=== PATIENT | female | born 1935 | race Caucasian/White ===

== ENCOUNTER 2016-07-19 07:29 | Inpatient (IN) | payer OTHER ==
[2016-07-04 14:03] VITALS: BMI 29.0
--- NOTE | 2016-07-04 14:35 | PAT Medication Instructions ---
Service Date Jul 04, 2016. Current Home Medication List Aspirin Enteric Coated (Ecotrin Or Generic *), 81 MG PO QAM Cholecalciferol (Vitamin D3), 1 CAP PO QAM Fluticasone Propionate (Nasal) (Flonase Allergy Relief), 1 SPRAY NA QAM Lisinopril (Zestril), 10 MG PO QAM Lorazepam (Ativan), 0.5 MG PO HS PRN for Pain Omeprazole (Omeprazole), 1 TAB PO QAM Medication Instructions For Your Scheduled Surgery - Hold the following medications the morning of surgery: Cholecalciferol (Vitamin D3), 1 CAP PO QAM Lisinopril (Zestril), 10 MG PO QAM - Take the following medications the morning of surgery with a sip of water OTHERWISE NOTHING TO EAT OR DRINK AFTER MIDNIGHT: Omeprazole (Omeprazole), 1 TAB PO QAM Aspirin Enteric Coated (Ecotrin Or Generic *), 81 MG PO QAM Fluticasone Propionate (Nasal) (Flonase Allergy Relief), 1 SPRAY NA QAM - Take the following medications as scheduled the night before surgery: Lorazepam (Ativan), 0.5 MG PO HS PRN for Pain If you have any questions please call us at [phone] or [phone] or [phone]
[2016-07-04 15:18] LABS: BASO % 0.5 %; BASO ABS # 0.03 K/uL (0-0.2); COMPLETE YES; EOS % 6.2 %; HEMATOCRIT 42.8 % (37-47); IG% 0.3 %; LYMPH % 33.9 %; LYMPH ABS # 2.23 K/uL (1.2-3.4); MEAN CELL VOLUME 87.2 fL (80-100); MEAN CORPUSCULAR HEMOGLOBIN 29.7 pg (25-34); MEAN CORPUSCULAR HGB CONC 34.1 g/dl (32-36); MONO % 5.8 %; NEUT % 53.3 %; PLATELET COUNT 209 K/uL (130-400); RED BLOOD COUNT 4.91 M/uL (4.2-5.4); WHITE BLOOD COUNT 6.58 K/uL (4.8-10.8)
[2016-07-04 15:19] LABS: URINE APPEARANCE CLEAR (CLEAR); URINE BILIRUBIN NEG (NEG); URINE COLOR YELLOW; URINE NITRITE NEG (NEG); URINE PH 5.5 (4.5-7.5); URINE SPECIFIC GRAVITY 1.022 (1.000-1.030); UROBILINOGEN NEG (NEG)
--- NOTE | 2016-07-04 15:22 | DIAGNOSTIC IMAGING REPORT ---
CHEST PREADMISSION(PA/LAT) CLINICAL HISTORY: PAT preoperative evaluation COMPARISON STUDY: 01/31/2010 FINDINGS: The bones soft tissues and hemidiaphragms are normal. The cardiomediastinal silhouette is normal. The lungs are clear. The pulmonary vasculature is normal. IMPRESSION: Negative chest. Electronically signed by: Lam Albrecht M.D. 07/04/2016 3:20 PM Dictated Date/Time: 07/04/2016 3:20 PM
[2016-07-04 15:27] LABS: MANUAL MICROSCOPIC REQUIRED? NO; REVIEW REQ? NO
[2016-07-04 15:34] LABS: BUN/CREATININE RATIO 18.3 (10-20); CALCIUM 9.1 mg/dl (8.5-10.1); POTASSIUM 3.8 mmol/L (3.5-5.1)
--- NOTE | 2016-07-17 09:59 | HISTORY & PHYSICAL EXAMINATION ---
DATE OF ADMISSION: 07/19/2016 The patient is well known to our practice. She has undergone prior lumbar decompression with instrumented fusion by Dr. Potts in the past. She presents to our office stating she is having leg pain, left greater than right. She reports this is quite limiting. She has failed physical therapy without any long-lasting relief. Denies bowel or bladder dysfunction. She states she is ambulating independently, but is "wobbly when she walks." The right leg for the most part is asymptomatic. She has a significant numbness down her left leg. She is struggling with shopping. She must lean on the cart or take a seated position to obtain relief. She is taking Tylenol extra strength for pain control. MEDICAL HISTORY: The patient's medical history is significant for GERD and hypertension. SURGICAL HISTORY: Significant for cholecystectomy, hysterectomy, prior lumbar fusion L5-S1 by Dr. Potts 2004, as well as neck surgery 2005. ALLERGIES: None listed. MEDICATIONS: Include Neurontin 300 mg b.i.d., melatonin 5 mg 2 capsules at night, Ativan 1 mg t.i.d. p.r.n., levothyroxine 112 mcg daily, K-Tab 10 mEq daily, benztropine mesylate 0.5 mg b.i.d., chlorpromazine hydrochloride 25 mg at night, pantoprazole 40 mg a day, fluoxetine hydrochloride 20 mg 2 tabs a day, loratadine 10 mg a day p.r.n., gabapentin 600 mg t.i.d., Tylenol p.r.n., ciprofloxacin 250 mg 1 p.o. b.i.d., hydrochloride 100 mg a day, Flexeril 10 mg p.r.n., Carafate 1 gram t.i.d. SOCIAL HISTORY: She is retired. Tobacco is none. She is . Alcohol is none currently. FAMILY HISTORY: Noncontributory. REVIEW OF SYSTEMS: Significant for back and leg pain, difficulty walking. PHYSICAL EXAMINATION: HEENT: Speech appropriate. CARDIOPULMONARY: No gross abnormalities. ABDOMEN: Soft, nondistended. GENITOURINARY: Deferred. NEUROLOGIC: Cranial nerves II-XII grossly intact. MUSCULOSKELETAL: She ambulates with a slow but steady gait. Lumbar extension reproduces her pain. Strength is intact bilateral lower extremities. Negative clonus. Negative Babinski. ASSESSMENT: Neural foraminal stenosis, multilevel of the lumbar spine. PLAN: At this point in time, we have discussed surgical intervention, which would require removal of instrumentation of L5-S1, lumbar decompression with instrumented fusion L2-L3, L3-L4 and L4-L5, possible reinstrumentation of L5-S1. Will have her see her family physician, Dr. Ring, preoperatively. She would like to proceed with the above-mentioned surgical planning. OFELIA
[2016-07-19] VITALS (13 sets, daily range): BP systolic 94–159; BP diastolic 55–85; PULSE 50–70; TEMP 34.7–36.7; O2SAT 95–98; Ht 162.6 cm; Wt 76.4 kg
[~2016-07-19] VITALS: Ht 162.6 cm; Wt 76.4 kg
--- NOTE | 2016-07-19 07:28 | History & Physical Bridge Note ---
H&P Re-Evaluation Bridge Note: I have examined the patient, reviewed the History & Physical and in the interval since the performance of the History & Physical I have noted the following changes of clinical significance: No changes noted
[~2016-07-19 07:29] MED LIST: ALBUMIN HUMAN 5% 12.5 GM/250 ML VIAL IV ONE; ASPEC81 PO; CEFAZOLIN 1000MG/55 ML D5W IV SCH; CHOL2000 PO; FLUT0.15; LACTATED RINGER'S 1000ML 1,000 ML IV SCH; LISI-461 PO; LORA-741 PO; OMEP20TA PO; [UNRECOGNIZED DRUG - REMARK] SCH
[2016-07-19] MEDS ORDERED: CEFAZOLIN IV 2,000 MG/60 ML D5W IV ONE (07:40)
[2016-07-19] MEDS ORDERED: ROCURONIUM BROMIDE 10 MG/ML 5 ML VIAL ONE ×2 (09:50→12:19)
[2016-07-19] MEDS ORDERED: DEXAMETHASONE SOD INJ 4 MG/ML VIAL ONE (09:50)
[2016-07-19] MEDS ORDERED: FENTANYL CITRATE INJ 50 MCG/1 ML 2 ML VIAL ONE ×2 (09:50→12:49)
[2016-07-19] MEDS ORDERED: PROPOFOL IV EMULSION 10 MG/ML 20 ML VIAL IV ONE (09:50)
[2016-07-19] MEDS ORDERED: LIDOCAINE HCL 2% 2 ML VIAL (20MG/ML) ONE (09:50)
[2016-07-19] MEDS ORDERED: ONDANSETRON INJ 2 MG/ML 2 ML VIAL ONE ×2 (09:50→12:57)
[2016-07-19] MEDS ORDERED: CLINDAMYCIN 600 MG/54 ML D5W IV ONE (09:53)
[2016-07-19] MEDS ORDERED: BACITRACIN 50000 UNIT VIAL ONE (09:56)
[2016-07-19] MEDS ORDERED: BUPIVACAINE/EPINEPHRINE 0.5% MPF 1:200,000 30 ML VIAL ONE (09:56)
[2016-07-19] MEDS ORDERED: SODIUM CHLORIDE 0.9% PF 50 ML VIAL ONE (09:56)
[2016-07-19] MEDS ORDERED: NURSING VERBAL MED ORDER ONE (10:00)
[2016-07-19] MEDS ORDERED: EpHEDrine SULFATE INJ 50 MG/ML AMP IV PRN (10:15)
[2016-07-19] MEDS ORDERED: HYDROmorphone INJ 2 MG/ML SYR/VIAL IV PRN (10:15)
[2016-07-19] MEDS ORDERED: PHENYLEPHRINE 100MCG/ML 5ML SYR IV PRN (10:15)
[2016-07-19] MEDS ORDERED: ATROPINE SULFATE 0.1 MG/ML 5ML SYR IV PRN (10:15)
[2016-07-19] MEDS ORDERED: ONDANSETRON INJ 2 MG/ML 2 ML VIAL IV PRN ×2 (10:15→13:00)
[2016-07-19] MEDS ORDERED: EpHEDrine SULFATE 50MG/5ML SYR ONE (11:35)
[2016-07-19] MEDS ORDERED: PHENYLEPHRINE HCL INJ 10 MG/ML VIAL ONE (11:35)
[2016-07-19] MEDS ORDERED: KETAMINE HCL INJ 50 MG/ML 10 ML VIAL ONE (11:35)
[2016-07-19] MEDS ORDERED: SODIUM CHLORIDE 0.9% INJ 10 ML VIAL ONE (12:29)
[2016-07-19] MEDS ORDERED: FLOSEAL HEMOSTATIC MATRIX 10ML TOP ONE (12:41)
[2016-07-19] MEDS ORDERED: SODIUM CHLORIDE 0.9% 1000ML 1,000 ML IV SCH (12:50)
--- NOTE | 2016-07-19 12:50 | [facility] Post Operative Brief Note ---
Immediate Operative Summary Operative Date Jul 19, 2016. Pre-Operative Diagnosis Neural foraminal stenosis, multi-level lumbar spine Post-Operative Diagnosis Same as preoperative diagnosis Procedure(s) Performed L2-L5 Lumbar Decompression, Posterior Spinal Fusion, Instrumentation, Interbody fusion with application of interbody cage at L2-L3, L3-L4, L5-S1 Hardware Removal, Bone Morphogenetic Protein Surgeon Dr Potts Direct Support Specialist Surgeon(s) Tameka Pruitt PA-C Estimated Blood Loss 400ml Findings stenosis Specimens A: L5-S1 Explanted hardware, lumbar spine
[2016-07-19] MEDS ORDERED: LORAZEPAM INJ 0.5 MG in SYRINGE 0.75 ML IV PRN (13:00)
[2016-07-19] MEDS ORDERED: MAGNESIUM HYDROXIDE SUSP 30 ML UDC PO PRN (13:00)
[2016-07-19] MEDS ORDERED: ACETAMINOPHEN IV 100 ML IV PRN (13:00)
[2016-07-19] MEDS ORDERED: METOCLOPRAMIDE HCL INJ 5 MG/ML 2 ML VIAL IV PRN (13:00)
[2016-07-19] MEDS ORDERED: FAMOTIDINE 20 MG TAB PO PRN (13:00)
[2016-07-19] MEDS ORDERED: hydrOXYzine HCL 25 MG TAB PO PRN (13:00)
[2016-07-19] MEDS ORDERED: BISACODYL 10 MG SUPP PR PRN (13:00)
[2016-07-19] MEDS ORDERED: NALOXONE HCL 0.4 MG/1 ML VIAL/CARP IV PRN ×2 (13:00)
[2016-07-19] MEDS ORDERED: PROMETHAZINE HCL INJ 12.5 MG in SODIUM CHLORIDE 0.9% 50ML 50 ML IV PRN (13:00)
[2016-07-19] MEDS ORDERED: DO NOT ADMINISTER FLU VACCINE PRN ×3 (13:00)
[2016-07-19] MEDS ORDERED: SOD PHOSPHATE/SOD BIPHOSPHATE ENEMA 132 ML BTL PR PRN (13:00)
[2016-07-19] MEDS ORDERED: LORAZEPAM 0.5 MG TAB PO PRN (13:00)
[2016-07-19] MEDS ORDERED: DO NOT ADMINISTER PNEUMOCOCCAL VACCINE PRN ×2 (13:00)
[2016-07-19] MEDS ORDERED: ALUMINUM/MAGNESIUM SUSP 30 ML UDC PO PRN (13:00)
--- NOTE | 2016-07-19 13:03 | DIAGNOSTIC IMAGING REPORT ---
INTRAOPERATIVE FLUOROSCOPIC IMAGES OF THE LUMBAR SPINE CLINICAL HISTORY: Hardware removal. L2-L5 decompression and fusion. COMPARISON STUDY: Lumbar spine fluoroscopic images February 01, 2010. Fluoroscopy time: 25 seconds. FINDINGS: 3 fluoroscopic images were obtained. Exact localization is difficult on this examination. 2 level discectomy is noted, likely at the L2-L3 and L3-L4 levels. There is a multilevel bilateral pedicle screw fusion with bilateral pedicle screws, likely at the L1, L2, L3, L4 and S1 levels. There are interconnecting rods. Hardware is intact. IMPRESSION: Postoperative findings consistent with a multilevel discectomy and bilateral pedicle screw fusion, as described above. Electronically signed by: West King M.D. 07/19/2016 1:02 PM Dictated Date/Time: 07/19/2016 12:59 PM
[2016-07-19] MEDS ORDERED: HYDROmorphone HCL 0.5MG/ML 50 ML CASSETTE ONE (13:13)
--- NOTE | 2016-07-19 13:27 | OPERATIVE REPORT ---
DATE OF OPERATION: 07/19/2016 PREOPERATIVE DIAGNOSIS: Spinal stenosis. POSTOPERATIVE DIAGNOSIS: Same. PROCEDURES PERFORMED: 1. Removal of posterior instrumentation, L5-S1. 2. Exploration of fusion, L5-S1. 3. Lumbar decompression, medial facetectomies, and foraminotomies, L1-L2, L2-L3, L3-L4, and L4-L5. 4. Posterior spinal fusion, L1-L5. 5. Placement of posterior segmental instrumentation using Orthros rods and screws as well as a crosslink L1-S1. 6. Interbody fusion, L2-L3 and L3-L4. 7. Placement of PEEK cage 11 x 22 at L2-L3 and L3-L4. 8. Placement of locally harvested morcellized autograft in the posterior gutters. 9. Placement of Infuse collagen sponge combined with Mastergraft in the posterior gutters and Raya bone graft in the interbody space. SURGEON: Dr. Samson Potts. GUN PROFILER: Tameka Pruitt PA-C. Due to the complex nature of the procedure, the entire surgery was performed with the health center assistant of SAHIL King. The retirement assistant, under direct supervision, was involved in the actual performance of all aspects of the surgical procedure including hemostasis, tissue retraction and incision, instrument management, patient positioning, and wound closure. ANESTHESIA: General. DISPOSITION: The patient awakened and taken to PACU in stable condition. HISTORY OF PATIENT'S PROBLEMS: This is a 80-year-old female, well known to me that presents with the above-mentioned diagnosis. After failing an extensive course of nonoperative care, she elected to undergo the above-mentioned procedures. Risks, benefits, pros, cons, and alternatives were outlined in detail preoperatively. DESCRIPTION OF PROCEDURE: The patient was met with preoperatively, case discussed and all questions were addressed. At that point, the patient was taken back to the operative suite and after undergoing successful general intubation via department of anesthesia, she was placed in a prone position on Keith table atop David frame. All bony prominences were well padded and the eyes were inspected to ensure there was no external pressure placed upon them. At this point, the lumbar spine was prepped and draped in the normal sterile fashion. Sharp dissection with the assistance of Bovie cautery was performed down to and exposing the lamina and transverse processes of L1, L2, L3, L4, L5 and S1 bilaterally including the instrumentation at L5-S1 levels. The hardware was then removed bilaterally exploring the fusion mass noting it to be intact. I then performed a laminectomy of L4, L3, L2 and extended the decompression up to S1 secondary to significant stenosis. Pedicle screws were then placed in L1, L2, L3, L4 and S1. Through transforaminal approach on the left, a complete discectomy of L3-L4 was performed noting significant foraminal disease and marked adhesions to the exiting nerve root. Nevertheless, we were able to maintain or reestablish significant opening of the neural foramen. Endplates were curetted to subcortical bleeding bone and an 11 x 22 mm PEEK cage filled with Raya bone grafting tapped into position. I then proceeded to L2-L3 and again through a transforaminal approach on the left, a complete diskectomy was performed, endplates curetted to subcortical bleeding bone and again an 11 x 22 mm PEEK cage filled with Raya bone grafting tapped into position. Appropriate size rods were then contoured, locked into final position bilaterally including crosslink and the transverse processes of L2, L3, L4, and L5 burred to subcortical bleeding bone. Infuse collagen sponge combined with Mastergraft and locally harvested morcellized autograft was placed in the posterior gutters. A 7 flat JANELLE drain was inserted. Incision was closed with 1-0 Vicryl in the fascia, 2-0 Vicryl subcutaneously, and 4-0 Monocryl for final skin closure. Steri-Strips and sterile dressing placed. The patient was awakened and taken to PACU in stable condition. I attest to the content of the Intraoperative Record and any orders documented therein. Any exceptio ns are noted below.
[2016-07-19] MEDS ORDERED: NEOSTIGMINE METHYLSULFATE 5 MG/5 ML SYR ONE (13:51)
[2016-07-19] MEDS ORDERED: GLYCOPYRROLATE INJ 0.2 MG/ML VIAL ONE (13:51)
--- NOTE | 2016-07-19 14:14 | Anesthesiology Progress Note ---
Anesthesia Post Op Note Date & Time Jul 19, 2016 at 14:14 Vital Signs Pain Intensity: 4 Vital Signs Past 12 Hours Date Time Temp Pulse Resp B/P Pulse Ox O2 Delivery O2 Flow Rate FiO2 07/19/16 14:00 36.2 67 12 116/76 96 Nasal Cannula 4 07/19/16 13:50 58 14 134/63 94 Nasal Cannula 4 07/19/16 13:40 61 11 124/62 99 Mask 10 07/19/16 13:30 76 14 117/71 98 Mask 10 07/19/16 13:20 90 18 138/73 99 Mask 10 07/19/16 13:14 36.2 84 16 140/78 99 Mask 10 07/19/16 07:59 36.7 56 20 159/85 96 Room Air Notes Mental Status: alert / awake / arousable, participated in evaluation Pt Amnestic to Procedure: Yes Nausea / Vomiting: adequately controlled Pain: adequately controlled Airway Patency, RR, SpO2: stable & adequate BP & HR: stable & adequate Hydration State: stable & adequate Anesthetic Complications: no major complications apparent
[2016-07-19] MEDS: HYDROmorphone HCL 0.5MG/ML 50 ML CASSETTE IV PRN ×2 (14:35→23:12)
[2016-07-19] MEDS: ALBUT/IPRATROP 3MG/0.5MG NEB 3 ML VIAL INH SCH ×2 (16:08→19:56)
[2016-07-19] MEDS: LACTATED RINGER'S 1000ML 1,000 ML IV SCH ×2 (16:08→19:54)
[2016-07-19] MEDS: CLINDAMYCIN IV 600 MG in DEXTROSE 5% ADD-VANTAGE 50ML 50 ML IV SCH (18:30)
[2016-07-19] MEDS: DEXAMETHASONE INJ 6 MG in SYRINGE 0 ML IV SCH (18:30)
[2016-07-19] MEDS: DOCUSATE SODIUM/SENNA 50/8.6MG TAB PO SCH (20:54)
[2016-07-20] VITALS (7 sets, daily range): BP systolic 90–123; BP diastolic 55–69; PULSE 61–72; TEMP 36.6–36.9; O2SAT 93–99
[2016-07-20] MEDS: CLINDAMYCIN IV 600 MG in DEXTROSE 5% ADD-VANTAGE 50ML 50 ML IV SCH (01:43)
[2016-07-20] MEDS: LACTATED RINGER'S 1000ML 1,000 ML IV SCH (01:44)
[2016-07-20] MEDS: DEXAMETHASONE INJ 6 MG in SYRINGE 0 ML IV SCH ×2 (01:44→10:25)
[2016-07-20] MEDS ORDERED: NURSING VERBAL MED ORDER ONE (05:45)
[2016-07-20] MEDS ORDERED: HYDROmorphone INJ 1 MG/ML SYR IV PRN (06:00)
[2016-07-20] MEDS ORDERED: DC PCA SCH (06:00)
[2016-07-20] MEDS ORDERED: OXYCODONE HCL IR 5 MG TAB (IMMEDIATE RELEASE) PO PRN (06:00)
[2016-07-20 06:33] LABS: BASO % 0.1 %; BASO ABS # 0.01 K/uL (0-0.2); COMPLETE YES; HEMATOCRIT 33.4 % (37-47); IG% 0.2 %; LYMPH % 5.6 %; LYMPH ABS # 0.65 K/uL (1.2-3.4); MEAN CORPUSCULAR HEMOGLOBIN 28.8 pg (25-34); MEAN CORPUSCULAR HGB CONC 33.8 g/dl (32-36); MEAN PLATELET VOLUME 9.8 fL (7.4-10.4); MONO % 2.9 %; NEUT % 91.2 %; PLATELET COUNT 203 K/uL (130-400); RED BLOOD COUNT 3.93 M/uL (4.2-5.4); WHITE BLOOD COUNT 11.64 K/uL (4.8-10.8)
[2016-07-20 07:02] LABS: CALCIUM 8.7 mg/dl (8.5-10.1); CREATININE 0.89 mg/dl (0.60-1.20); POTASSIUM 4.1 mmol/L (3.5-5.1)
--- NOTE | 2016-07-20 08:19 | Anesthesiology Progress Note ---
Anesthesia Post Op Note Date & Time Jul 20, 2016 at 08:18 Vital Signs Vital Signs Past 12 Hours Date Time Temp Pulse Resp B/P Pulse Ox O2 Delivery O2 Flow Rate FiO2 07/20/16 07:23 36.6 72 16 90/55 93 Room Air 07/20/16 06:35 95 Room Air 07/20/16 03:46 36.7 61 18 96/59 99 Nasal Cannula 2.0 07/20/16 00:25 Nasal Cannula 4.0 07/19/16 22:58 36.4 56 18 107/59 97 Nasal Cannula 2.0 07/19/16 21:54 106/66 07/19/16 20:58 100/60 Notes Mental Status: alert / awake / arousable, participated in evaluation Pt Amnestic to Procedure: Yes Nausea / Vomiting: adequately controlled Pain: adequately controlled Airway Patency, RR, SpO2: stable & adequate BP & HR: stable & adequate Hydration State: stable & adequate Anesthetic Complications: no major complications apparent
[2016-07-20] MEDS: LISINOPRIL 10 MG TAB PO SCH (08:40)
[2016-07-20] MEDS: PANTOprazole SOD 40 MG TAB PO SCH (08:41)
[2016-07-20] MEDS: ASPIRIN 81 MG ECTAB PO SCH (08:42)
[2016-07-20] MEDS: FLUTICASONE PROPIONATE NA SPR 16 GM BTL SCH (08:44)
[2016-07-20] MEDS ORDERED: RXC5 PO (14:01)
--- NOTE | 2016-07-20 14:02 | Discharge Instructions ---
Discharge Instructions Admission Reason for Admission: Spinal Stenosis Discharge Discharge Diagnosis / Problem: stenosis Discharge Goals Goal(s): Improve function Activity Recommendations Activity Limitations: per Instructions/Follow-up section . Instructions / Follow-Up Instructions / Follow-Up ACTIVITY RECOMMENDATIONS: SELF CARE INSTRUCTIONS AFTER THORACIC/LUMBAR FUSIONS 1. You may walk to your tolerance. It is good exercise for your legs and back. Expect some back and intermittent leg aches and pains. 2. You may perform "counter-top" level activities (make a sandwich, bassam with a project, etc.). 3. No bending or lifting of more than 10 pounds or back twisting of any nature (roll like a log when turning in bed). 4. You may ride in a car for 20-30 minutes at a time. No driving until after your first visit with your doctor. 5. Frequent changes of position and restricting sitting to 30 minutes at a time will help limit the amount of back spasms and stiffness you may experience. 6. You may discontinue the use of ambulatory aids (cane, crutches, etc.) once your strength and confidence allow. 7. You may paint line production supervisor the shower and let water strike your incision when you arrive home at least once daily. Do not take a tub bath, sit in a hot tub or go into a swimming pool until after your first recheck in the office. SPECIAL CARE INSTRUCTIONS: VERY IMPORTANT TO READ AND REVIEW A. Your surgical incision has been closed with a cosmetic suture under the skin that will dissolve in about 6 weeks. In 14 days, you can use a pair of clean scissors and cut the suture that is left outside of the skin at the ends of your incision. 1. The small skin tapes can be removed 7 days after surgery if they have not fallen off by that point. 2. You may keep the wound open to air as much as possible to promote healing after post-op day number 5 unless told otherwise by your doctor. 3. If you think the wound looks like it is becoming infected (redness or worsening drainage) and/or you are experiencing fever, chill or worsening back pain and muscle spasms, contact the office so that we may evaluate you as soon as possible. B. Complications are uncommon, but please contact us if you have any signs or symptoms of: 1. wound infection (fever higher than 102.5 degrees F, redness, separation of wound, drainage, or increasing pain from the incision) 2. blood clots in legs (pain, swelling, redness and warmth in legs) 3. urinary tract infection (fever higher than 102.5 degrees F, burning upon urination or increased frequency of urination) 4. nerve problems (inability to walk on your toes or heels, numbness, loss of bowel or bladder control) 5. any other symptoms that concern you C. Please call the office at if you have any concerns or questions about your operation or recovery. D. No smoking! Smoking drastically decreases the chance of a solid fusion. E. Do not take any anti-inflammatory medications (Indocin, Advil, Motrin, Aspirin, Naprosyn, etc.) as these may inhibit the chance of a solid fusion. Tylenol is okay to take for pain. MANAGING PAIN AFTER SPINAL SURGERY 1. Narcotic medication is intended for short-term use and will be provided for surgical pain. Surgical pain usually lasts for a period of 4-6 weeks. Narcotic medication includes Percocet, Vicodin, Darvocet, Tylenol #3 or Lortab. 2. Longer-term pain is more appropriately treated with non-narcotic medication such as Tylenol ES. 3. Muscle spasm is not appropriately treated with narcotics. Muscle relaxers such as Soma, Flexeril or Skelaxin can be used along with Tylenol ES. 4. Remember that we all live with some "aches and pains". This is not unusual or uncommon after an injury or as we get older. a. Back pain is expected and may include muscle spasms for 4 to 6 weeks after surgery. The pain should gradually improve. If the pain worsens for no apparent reason, please contact the office. b. Intermittent leg pain may also be experienced and should not be concerned about unless it worsens for no apparent reason. If so, please contact the office. 5. We will provide appropriate medication within the normal guidelines of their prescribed use. We will also be very cautious and aware of potential abuse and extended duration of patients' medication needs. a. Pain medications are for your comfort and to assist with sleep and rest so that the tissue can heal. They are not provided in order to return to normal activity and should not be used through the day. To do so or worsening pain at night can result from ongoing tissue damage and development of tolerance to the prescribed medicine. 6. Please allow 2-3 days to process refills. Prescriptions will not be mailed but must be picked up at the office. FOLLOW UP VISIT: Keep your scheduled follow-up appointment. Any questions, please call the office at . Current Hospital Diet Patient's current hospital diet: Regular Diet Discharge Diet Recommended Diet: Regular Diet Procedures Procedures Performed: L2-L5 Lumbar Decompression, Posterior Spinal Fusion, Instrumentation, Interbody fusion with application of interbody cage at L2-L3, L3-L4, L5-S1 Hardware Removal, Bone Morphogenetic Protein Pending Studies Studies pending at discharge: no Medical Emergencies . Who to Call and When: Medical Emergencies: If at any time you feel your situation is an emergency, please call 911 immediately. . Non-Emergent Contact Non-Emergency issues call your: Primary Care Provider . "Provider Documentation" section prepared by Samson Potts. VTE Core Measure Inpt VTE Proph given/why not?: Yamileth Velazquez, ELIANA's
--- NOTE | 2016-07-20 14:36 | PROGRESS NOTE ---
DATE: 07/20/2016 DATE: 07/20/2016. SUBJECTIVE: Postop day 1. Back pain controlled. Leg pain markedly improved. Vital signs stable. T-max 36.9. JANELLE drained ____ mL. Hematocrit 33.4. OBJECTIVE: On exam she is in chair at bedside. Has good strength to testing, appears comfortable. ASSESSMENT: Status post multilevel lumbar decompression and fusion. PLAN: At this time, we will continue physical therapy, advance her bowel regimen and anticipate home this weekend with home health.
[2016-07-20] MEDS: DOCUSATE SODIUM/SENNA 50/8.6MG TAB PO SCH (21:31)
[2016-07-20] MEDS: ACETAMINOPHEN 500 MG TAB PO PRN (23:32)
[2016-07-21 05:58] VITALS: BP 119/69; PULSE 65; TEMP 36.9; O2SAT 95
[2016-07-21] MEDS: POLYETHYLENE (MIRALAX) 17 GM PACK PO SCH ×2 (06:13→12:00)
[2016-07-21] MEDS: ACETAMINOPHEN 500 MG TAB PO PRN (07:40)
[2016-07-21 08:11] VITALS: BP 112/74; PULSE 74; TEMP 36.7; O2SAT 96
[2016-07-21] MEDS: FLUTICASONE PROPIONATE NA SPR 16 GM BTL SCH (08:17)
[2016-07-21] MEDS: LISINOPRIL 10 MG TAB PO SCH (08:17)
[2016-07-21] MEDS: ASPIRIN 81 MG ECTAB PO SCH (08:18)
[2016-07-21] MEDS: PANTOprazole SOD 40 MG TAB PO SCH (08:18)
[2016-07-21 08:44] VITALS: BP 112/72; PULSE 73; O2SAT 98
--- NOTE | 2016-07-21 10:41 | DISCHARGE SUMMARY ---
DATE OF DISCHARGE: 07/21/2016. PRINCIPAL DIAGNOSIS: Spinal stenosis. HOSPITAL COURSE FOLLOWS: On 07/19/2016 the patient underwent lumbar decompression and fusion, tolerated this well and taken to the orthopedic floor postoperatively. Postop day #1 she was up and ambulatory and subsequent postop day #2 she was discharged home with home health. Discharge orders and instructions can be found on the chart for further review.
[2016-07-21 10:46] VITALS: O2SAT 96
[2016-07-21 10:49] VITALS: BP 112/72; PULSE 73; TEMP 36.7; O2SAT 96
[2016-07-21 12:11] VITALS: BP 128/75; PULSE 65; TEMP 36.3; O2SAT 96
== END 2016-07-21 13:48 | disposition home health service (06) | DRG 460 ==
LOC: ENRESERVTM → ENRESERVDT → C.ACU 07:29 → C.3E 12:53
PROVIDERS: ADMIT Orthopaedic Surgery Orthopaedic Surgery of the Spine; ATTEND Orthopaedic Surgery Orthopaedic Surgery of the Spine
PROC: 0SP004Z Removal of Internal Fixation Device from Lumbar Vertebral Joint, Open Approach (ICD-10-PCS; principal; 2016-07-19 10:15)
PROC: 0SG10AJ Fusion of 2 or more Lumbar Vertebral Joints with Interbody Fusion Device, Posterior Approach, Anterior Column, Open Approach (ICD-10-PCS; principal; 2016-07-19 10:15)
PROC: 0ST20ZZ Resection of Lumbar Vertebral Disc, Open Approach (ICD-10-PCS; principal; 2016-07-19 10:15)
DX: M48.06 Spinal stenosis, lumbar region (principal); K21.9 Gastro-esophageal reflux disease without esophagitis; I10 Essential (primary) hypertension; Z90.49 Acquired absence of other specified parts of digestive tract; Z90.710 Acquired absence of both cervix and uterus; Z98.1 Arthrodesis status

== ENCOUNTER 2020-09-29 08:51 | Inpatient (IN) ==
--- NOTE | 2020-08-30 13:35 | PAT Medication Instructions ---
Medication Instructions Date of Service August 30, 2020 Home Medications aspirin [Aspirin Low Dose] 81 mg PO QAM cyanocobalamin (vitamin B-12) [Vitamin B-12] 1,000 mcg PO PM fluticasone propionate 2 spray INTRANASAL QAM PRN lisinopril 40 mg PO QAM multivitamin 1 tab PO QAM omeprazole 20 mg PO QAM rosuvastatin 20 mg PO QAM cholecalciferol (vitamin D3) [Vitamin D3] 25 mcg PO QAM ASK your prescriber and surgeon aspirin [Aspirin Low Dose] 81 mg PO QAM DO NOT take the morning of surgery lisinopril 40 mg PO QAM multivitamin 1 tab PO QAM cholecalciferol (vitamin D3) [Vitamin D3] 25 mcg PO QAM Take morning of surgery With a small sip of water, OTHERWISE NOTHING TO EAT OR DRINK AFTER MIDNIGHT: fluticasone propionate 2 spray INTRANASAL QAM PRN (if needed) omeprazole 20 mg PO QAM rosuvastatin 20 mg PO QAM Take evening before surgery cyanocobalamin (vitamin B-12) [Vitamin B-12] 1,000 mcg PO PM Other Notes If you have any questions please call us at [phone] or [phone] or [phone] or [phone]
--- NOTE | 2020-09-02 10:56 | Anesthesiology Consultation ---
Date of Service September 02, 2020 Assessment & Plan (1) Encounter for pre-operative examination: - COVID screening: Per assessment on 09/02: Travel screen negative, no known COVID-19 positive contacts or current COVID-19 related symptoms. Patient fully vaccinated. Surgeon arranged preop COVID testing (to be done at [facility] 09/02; [place]). Awaiting results. - S/P left SI joint fusion: 06/14/2020: Grade 2 view, MAC 3.0, ETT 7.0 at [facility] Chart Review Chart Review: Acceptable Risk for Surgery and Patient seen in Pre Admission Testing Teaching & Discussion Pre-Anesthesia Teaching/Discussion Notes: Instructed NPO after midnight before surgery,except medications with 15 cc of water. Medication instructions provided according to the [facility] guidelines. History Surgery Operation Date: 09/08/20 12:00 Proposed Procedures p Left Reverse Total Shoulder Arthroplasty - Obdulio Grossman M.D. Height/Weight Height: 5 ft 4 in Weight: 75 kg Allergies Allergy/AdvReac Type Severity Reaction Status Date / Time imipenem Allergy Severe Dyspnea Verified 09/02/20 10:41 meropenem Allergy Severe Dyspnea Verified 09/02/20 10:41 penicillamine Allergy Severe Dyspnea Verified 09/02/20 10:41 ranitidine Allergy Severe Dyspnea Verified 09/02/20 10:41 ampicillin Allergy Intermediate Dyspnea, Verified 09/02/20 10:41 hives azithromycin Allergy Intermediate Hives, Verified 09/02/20 10:41 angioedema Cephalosporins Allergy Intermediate Hives Verified 09/02/20 10:41 cilastatin Allergy Intermediate Dyspnea Verified 09/02/20 10:41 Macrolide Antibiotics Allergy Intermediate Hives, Verified 09/02/20 10:41 angioedema Penicillins Allergy Intermediate Hives Verified 09/02/20 10:41 adhesive Allergy Mild Rash Verified 09/02/20 10:41 Carbapenems Allergy Unknown Dyspnea Verified 09/02/20 10:41 Medications Home Medications Medication Instructions Recorded Confirmed Last Taken aspirin [Aspirin Low Dose] 81 mg PO QAM 12/14/18 08/26/20 06/19/20 cyanocobalamin (vitamin B-12) 1,000 mcg PO PM 12/14/18 08/26/20 06/19/20 [Vitamin B-12] fluticasone propionate 2 spray INTRANASAL QAM PRN 12/14/18 08/26/20 06/12/20 lisinopril 40 mg PO QAM 12/14/18 08/26/20 06/19/20 multivitamin 1 tab PO QAM 12/14/18 08/26/20 06/19/20 omeprazole 20 mg PO QAM 12/14/18 08/26/20 06/19/20 rosuvastatin 20 mg PO QAM 11/12/19 08/26/20 06/19/20 cholecalciferol (vitamin D3) 25 mcg PO QAM 05/05/20 08/26/20 06/19/20 [Vitamin D3] Past Medical History Medical History Acid reflux controlled Carotid stenosis 50-69% right sided stenosis per 09/2018 doppler report but personal review of imaging by vascular felt that carotid artery stenosis <50% b/l - advised by vascular to f/u PRN Chronic constipation CKD (chronic kidney disease) Stage III COPD (chronic obstructive pulmonary disease) Per records- patient denies History of left shoulder fracture 07/2019 - medically managed until this upcoming surgery Hx of cancer of uterus s/p hysterectomy with USO Hypertension Exercise / Class Metabolic Activity II 4-5 Yardwork/Stairs/Walk up hill Past Surgical History Surgical History Fusion of spine Left SI joint fusion: 06/14/2020: Grade 2 view, MAC 3.0, ETT 7.0 at [facility] H/O hemorrhoidectomy H/O: hysterectomy + USO History of appendectomy History of cataract surgery R/L History of cholecystectomy History of colonoscopy History of lumbar fusion History of surgery "Windpipe growth" removal History of tonsillectomy Hx of fusion of cervical spine Hx of surgical procedure Right SI joint fusion Hx of tooth extraction Past Anesthesia History Other Patient- POD 1 or 2 after Left SI joint fusion at [facility] (06/14/20) patient had episode of weakness and emesis (?hematemesis). No recurrence. PCP suspected vagal reaction to the anesthesia/issue related to third spacing. Patient sta jose miguel she was told that this might have been related to chronic constipation. No further issues and f/u blood work unremarkable. No similar issues with other surgeries/anesthesia. Patient states she was told to make sure she was not significantly constipated prior to future surgeries (patient plans to do bowel regimen with upcoming surgery). Daughter- dyspnea with anesthesia emergence. History of PONV No Hx of Motion Sickness and History of PONV Social History Smoking Status: Current every day smoker tobacco type: cigarettes Smoking cigarettes per day: 10-20 cigs/day x 30 years Do You Dip or Chew Tobacco: No Hx Alcohol Use: No Hx Substance Use: No substance use type: does not use Review of Systems No snoring. Patient denies chest pain, shortness of breath, dyspnea on exertion, fever, chills, cough, wheezing, palpitations. Physical Exam Vital Signs VITALS BP 118/73 P 58 TEMP 97.8 SP02 96%RA RESP 18 PHYSICAL Mildly decreased cervical extension range of motion. Full TMJ range of motion. TMD 4 finger breaths Mallampati Score 2 Dentition: upper/lower full dentures Lungs: clear throughout to auscultation Cardiac: regular rate and rhythm, no murmurs noted Spine: normal Carotid arteries: negative bruit Extremities: no edema Testing Laboratory Results 09/02/20 11:40 09/02/20 11:40 PT 10.2 Seconds (9.0-12.0) 09/02/20 11:40 INR 1.0 (0.9-1.1) 09/02/20 11:40 APTT 25.8 Seconds (21.0-31.0) 09/02/20 11:40 Hemoglobin A1c 5.3 % (4.5-5.6) 09/02/20 11:40 Urine Color Yellow 09/02/20 Unknown Urine Appearance Clear (Clear) 09/02/20 Unknown Urine pH 5.5 (4.5-7.5) 09/02/20 Unknown Ur Specific [place] 1.014 (1.000-1.030) 09/02/20 Unknown Urine Protein Negative (Negative) 09/02/20 Unknown Urine Glucose (UA) Negative (Negative) 09/02/20 Unknown Urine Ketones Negative (Negative) 09/02/20 Unknown Urine Nitrite Negative (Negative) 09/02/20 Unknown Ur Leukocyte Esterase Negative (Negative) 09/02/20 Unknown Blood Type O Positive 09/02/20 11:40 Antibody Screen NEGATIVE 09/02/20 11:40 Electrocardiogram Date: 11/09/19 Findings: + NSR @ (68bpm) Left axis deviation. Poor R wave progression, consider anterior FL versus lead placement versus LVH. Compared EKG of 07/04/2016, no significant change was found per lumber marker review. Chest X-Ray Date: 11/09/19 Findings: + NAD Other Testing Carotid artery duplex: 10/10/2018: Right carotid artery duplex examination indicates evidence of 50-69% stenosis of the internal carotid artery. Left carotid artery duplex examination indicates evidence of a normal duplex evaluation of the internal carotid artery. B/L vertebral antegrade flow.
[2020-09-02 11:59] LABS: Basophils # (auto) 0.04 K/uL (0-0.2); Basophils % (auto) 0.8 %; Eosinophils # (auto) 0.29 K/uL (0-0.5); Eosinophils % (auto) 5.6 %; Hematocrit (blood only) 43.4 % (37-47); Hemoglobin 14.6 g/dL (12.0-16.0); Lymphocytes # (auto) 2.01 K/uL (1.2-3.4); Lymphocytes % (auto) 39.1 %; Mean Corpuscular Hemoglobin 29.6 pg (25-34); Mean Corpuscular Hgb Conc 33.6 g/dL (32-36); Mean Corpuscular Volume 87.9 fL (80-100); Mean Platelet Volume 9.6 fL (7.4-10.4); Monocytes # (auto) 0.43 K/uL (0.11-0.59); Monocytes % (auto) 8.4 %; Neutrophils # (auto) 2.37 K/uL (1.4-6.5); Neutrophils % (auto) 46.1 %; Platelet Count 196 K/uL (130-400); RDW Coefficient of Variation 14.2 % (11.5-14.5); RDW Standard Deviation 45.8 fL (36.4-46.3); Red Blood Count 4.94 M/uL (4.2-5.4); White Blood Count 5.14 K/uL (4.8-10.8)
[2020-09-02 12:12] LABS: Appearance Urine Clear (Clear); Bilirubin Urine Negative (Negative); Blood Urine Negative (Negative); Color Urine Yellow; Glucose Urine UA Negative (Negative); Ketones Urine Negative (Negative); Leukocyte Esterase Urine Negative (Negative); Nitrite Urine Negative (Negative); Protein Urine Negative (Negative); Specific Gravity Urine 1.014 (1.000-1.030); Urobilinogen Urine Negative (Negative); pH Urine 5.5 (4.5-7.5)
[2020-09-02 12:23] LABS: Partial Thromboplastin Time 25.8 Seconds (21.0-31.0); Prothrombin Time 10.2 Seconds (9.0-12.0)
[2020-09-02 12:26] LABS: Estimated Average Glucose 105 mg/dl; Hemoglobin A1C 5.3 % (4.5-5.6)
[2020-09-02 13:11] LABS: Albumin Level 3.8 gm/dl (3.4-5.0); BUN Creatinine Ratio 19.4 (10-20); Calcium 9.1 mg/dl (8.5-10.1); Est GFR (African American) 70.4; Est GFR (Non-African American) 60.8; Potassium 4.9 mmol/L (3.5-5.1)
--- NOTE | 2020-09-28 15:59 | History & Physical Report ---
Date of Service September 28, 2020 Assessment & Plan (1) Post-traumatic osteoarthritis, left shoulder: She has healed this left proximal humerus fracture with malunion of the head splitting articular component. We discussed further conservative management of this posttraumatic arthritis with further glenohumeral joint steroid injections versus definitive surgical intervention with a shoulder replacement surgery. We extensively discussed the pros and cons of each approach, and she elected to proceed with shoulder replacement surgery. I do think this is reasonable at this point. I think she would be best served with a reverse total shoulder replacement, but since her fracture is healed, I do not think we need to do the cemented reverse them for fracture. Risks, benefits, and alternatives of surgery were explained in detail. The surgical procedure, as well as postoperative recovery and rehabilitation, was also explained in detail. Risks include bleeding; infection; damage to surrounding structures such as nerves, blood vessels, and tendons that run in the area; persistent pain or s tiffness; hardware failure; dislocation; brachial plexus palsy; blood clots; or need for further surgery. The patient understands all of this and wishes to proceed with surgery. Preoperative workup was completed today, and informed consent was obtained. Present on Admission?: Yes History of Present Illness Chief Complaint: Left shoulder pain Primary Care Provider: Ni Nieto MD She returns today for her left shoulder. Again, she sustained a severely comminuted left proximal humerus fracture with head split sustained during a ground-level fall in July 2019. When I initially saw her for this, we mutually decided on nonoperative treatment rather than a reverse total shoulder arthroplasty, especially in light of the coronavirus pandemic. She has since developed painful posttraumatic arthritis in the left shoulder with persistent pain and crepitus. I have given her injections twice, and both of them gave her about 2 to 2-1/2 months of pain relief. The pain relief was not complete, maybe 50% improvement in her pain. This pain and especially the limitation in range of motion and function is very bothersome to her. Allergies Allergy/AdvReac Type Severity Reaction Status Date / Time imipenem Allergy Severe Dyspnea Verified 09/02/20 10:41 meropenem Allergy Severe Dyspnea Verified 09/02/20 10:41 penicillamine Allergy Severe Dyspnea Verified 09/02/20 10:41 ranitidine Allergy Severe Dyspnea Verified 09/02/20 10:41 ampicillin Allergy Intermediate Dyspnea, Verified 09/02/20 10:41 hives azithromycin Allergy Intermediate Hives, Verified 09/02/20 10:41 angioedema Cephalosporins Allergy Intermediate Hives Verified 09/02/20 10:41 cilastatin Allergy Intermediate Dyspnea Verified 09/02/20 10:41 Macrolide Antibiotics Allergy Intermediate Hives, Verified 09/02/20 10:41 angioedema Penicillins Allergy Intermediate Hives Verified 09/02/20 10:41 adhesive Allergy Mild Rash Verified 09/02/20 10:41 Carbapenems Allergy Unknown Dyspnea Verified 09/02/20 10:41 Home Medications Medication Instructions Recorded Confirmed Type aspirin [Aspirin Low Dose] 81 mg PO QAM 12/14/18 08/26/20 History cyanocobalamin (vitamin B-12) 1,000 mcg PO PM 12/14/18 08/26/20 History [Vitamin B-12] fluticasone propionate 2 spray INTRANASAL QAM PRN 12/14/18 08/26/20 History lisinopril 40 mg PO QAM 12/14/18 08/26/20 History multivitamin 1 tab PO QAM 12/14/18 08/26/20 History omeprazole 20 mg PO QAM 12/14/18 08/26/20 History rosuvastatin 20 mg PO QAM 11/12/19 08/26/20 History cholecalciferol (vitamin D3) 25 mcg PO QAM 05/05/20 08/26/20 History [Vitamin D3] Past Med/Surg History Medical History Acid reflux controlled Carotid stenosis 50-69% right sided stenosis per 09/2018 doppler report but personal review of imaging by vascular felt that carotid artery stenosis <50% b/l - advised by vascular to f/u PRN Chronic constipation CKD (chronic kidney disease) Stage III COPD (chronic obstructive pulmonary disease) Per records- patient denies History of left shoulder fracture 07/2019 - medically managed until this upcoming surgery Hx of cancer of uterus s/p hysterectomy with USO Hypertension Surgical History Fusion of spine Left SI joint fusion: 06/14/2020: Grade 2 view, MAC 3.0, ETT 7.0 at [facility] H/O hemorrhoidectomy H/O: hysterectomy + USO History of appendectomy History of cataract surgery R/L History of cholecystectomy History of colonoscopy History of lumbar fusion History of surgery "Windpipe growth" removal History of tonsillectomy Hx of fusion of cervical spine Hx of surgical procedure Right SI joint fusion Hx of tooth extraction Social History Smoking Status: Current every day smoker Cigarettes Per Day: 10-20 cigs/day x 30 years; Second Hand Exposure: No; Do You Dip or Chew Tobacco: No; Tobacco Cessation Education Requested by Patient: No Hx Alcohol Use: No Hx Substance Use: No Preferred Language: Citizen Of [place] Communication Ability: Effective [place] Required: No Beliefs That Will Affect Care: None Current Living Situation: Spouse Feels Safe at Home: Yes Safety Concerns: Feels Safe At This Time Assistive Devices: Denture - Upper, Denture - Lower and Glasses Assistive Devices Comment: READING GLASSES Physical Exam Physical Exam: Examination left shoulder reveals about 85 degrees of active abduction and forward flexion. Rotation is significantly limited. Results & Data ([facility]) Diagnostic Findings New x-rays of the left shoulder obtained today and compared to previous x-rays from December. These significantly displaced proximal humerus fracture is solidly healed, but with malunion. She has irregularity of the articular surface of the humeral head, and is showing some posterior glenoid wear on axillary view.
[~2020-09-29 08:51] MED LIST changes: +ACETAMINOPHEN 500 MG TAB PO SCH; -ALBUMIN HUMAN 5% 12.5 GM/250 ML VIAL IV ONE; +ANCEF - ALLERGY NOTED TO ORDERED MEDICATION SCH; -ASPEC81 PO; +BUPIVACAINE 0.5 % 5 MG/1 ML PF 10ML VIAL ONE; -CEFAZOLIN 1000MG/55 ML D5W IV SCH; -CHOL2000 PO; +CeleBREX 200 MG CAP PO SCH; +FAMOTIDINE 20 MG TAB PO SCH; -FLUT0.15; +GABAPENTIN 300 MG CAP PO SCH; -LACTATED RINGER'S 1000ML 1,000 ML IV SCH; -LISI-461 PO; -LORA-741 PO; +LR 15ML/HR IV SCH; +METOCLOPRAMIDE HCL 10 MG TABLET PO SCH; -OMEP20TA PO; +ROPIVACAINE 0.5% 5 MG/ML 30 ML VIAL ONE; +TRANEXAMIC ACID 1,000 MG **IV Pre-op IV SCH; +[UNRECOGNIZED DRUG - REMARK] SCH; +[UNRECOGNIZED DRUG - REMARK] SCH; -[UNRECOGNIZED DRUG - REMARK] SCH; +ceFAZolin 1000MG 1,000 MG/7.5 ML SYR IV SCH; +oxyCODONE HCL 10 MG TABCR (OxyCONTIN) PO SCH
[2020-09-29] MEDS ORDERED: fentaNYL citrate 100 MCG/2 ML VIAL ONE (10:06)
[2020-09-29] MEDS ORDERED: DEXAMETHASONE SOD INJ 4 MG/ML VIAL ONE (10:06)
[2020-09-29] MEDS ORDERED: ONDANSETRON INJ 2 MG/ML 2 ML VIAL ONE ×2 (10:06→14:10)
[2020-09-29] MEDS ORDERED: PROPOFOL IV EMULSION 10 MG/ML 20 ML VIAL IV ONE (10:06)
[2020-09-29] MEDS ORDERED: LIDOCAINE HCL 2% 2 ML VIAL/AMP(20MG/ML) INFIL ONE (10:06)
[2020-09-29] MEDS ORDERED: fentaNYL citrate 100 MCG/2 ML VIAL IV PRN (10:18)
[2020-09-29] MEDS ORDERED: ONDANSETRON INJ 2 MG/ML 2 ML VIAL IV PRN ×2 (10:18→15:49)
[2020-09-29] MEDS ORDERED: ePHEDrine sulfate 50 MG/ML AMP IV PRN (10:18)
[2020-09-29] MEDS ORDERED: ATROPINE SULFATE 0.1 MG/ML 10ML SYR IV PRN (10:18)
[2020-09-29] MEDS ORDERED: ceFAZolin 2,000 MG/15 ML IV PUSH IV ONE (11:04)
--- NOTE | 2020-09-29 11:11 | History & Physical Bridge Note ---
Date of Service September 29, 2020 History & Physical Bridge Note I have examined the patient, reviewed the History & Physical and in the interval since the performance of the History & Physical I have noted the following changes of clinical significance: no changes noted
[2020-09-29] MEDS ORDERED: ePHEDrine sulfate 50 MG/ML AMP ONE ×2 (12:58→13:19)
[2020-09-29] MEDS ORDERED: GLYCOPYRROLATE 0.2 MG/ML VIAL ONE (12:58)
[2020-09-29] MEDS ORDERED: PHENYLEPHRINE 100MCG/ML 5ML SYR ONE (13:09)
--- NOTE | 2020-09-29 14:13 | Operative Report ---
Post Operative Report Pre & Post Diagnosis Operation Date: 09/29/20 11:05 Pre-Op Diagnosis: Left shoulder post-traumatic arthritis Post-Op Diagnosis: Left shoulder post-traumatic arthritis I identified the patient and participated in the time-out.: Yes Procedure Operation Date: 09/29/20 11:05 Actual Procedures Left reverse Total Shoulder Arthroplasty (42218) Open biceps tenodesis (63744) - Obdulio Grossman M.D. Surgeon Obdulio Grossman Land Management Supervisor Shantanu Castro PA-C Estimated Blood Loss 75 Findings Consistent with Post-Op Diagnosis Specimens None Drains None Anesthesia Type General Regional Complications none Disposition Disposition: Recovery Room Indications Ms. Ramírez is an 84-year-old female who sustained a severely comminuted proximal humerus fracture about a year ago in July 2019. She declined surgical intervention at that time, but developed severe posttraumatic arthritis with persistent pain despite numerous injections. History, clinical exam, and imagi ng were consistent with the above diagnosis. Risks, benefits, and alternatives of surgery were explained in detail. The patient understood all this and wished to proceed. Description of Procedure Components Implanted: Tornier Reverse Total Shoulder implants Perform glenoid baseplate: 29mm, 15 degree full wedge with 6.5mm central screw and 5.0mm peripheral screws Glenosphere: 39mm, +3mm, eccentric offset Ascend Flex humeral stem: 3B Standard length (74mm) Humeral tray: 1.5mm offset, +6mm thickness Polyethylene insert: 39mm, +6mm thickness Patient was identified in the preoperative holding area. Operative extremity was marked. Regional blockade was given by the Anesthesia Staff. Patient was then brought back to the operating room, and general anesthesia was induced without complication. Appropriate weight-based dose of Ancef was infused intravenously for antibiotic prophylaxis. The patient was then placed in the beachchair position. Left arm was then prepped and draped in a standard sterile fashion using Chlorhexidine prep. A standard deltopectoral incision was made through the skin and subcutaneous tissue. The cephalic vein was identified and retracted medially. Small branches to the deltoid were coagulated as necessary. The clavipectoral fascia was then incised and the subdeltoid space was opened. The biceps tendon was identified within the bicipital groove and tenodesed at the superior border of the pectoralis tendon with #2 FiberWire suture. The biceps tendon was then divided proximal to the tenodesis site and the rotator interval was opened. The proximal portion of the biceps tendon was excised. The remaining subscapularis tendon was elevated subperiosteally off of the lesser tuberosity. The glenohume ral joint was then dislocated, and large osteophytes were debrided with a ronguer. The humeral head was found to be severely deformed with an obvious intra-articular malunited head-splitting fracture. The humeral head cut was then made in the appropriate inclination and version using the cutting guide. The intramedullary canal of the humerus was then opened with a canal finder. The humeral canal was then sequentially broached to the appropriate size. A protective cap was then placed on top of the humeral trial. I then turned my attention to the glenoid. The proximal stump of the biceps tendon was excised, along with the labrum circumferentially around the glenoid. The Blueprint drill guide was then positioned on the glenoid, and the guidepin was then inserted. The 15 degree angled reamer was then inserted over the guidepin and an reamed to an appropriate depth. The central screw hole was drilled, and appropriate length 6.5mm central screw was selected. The baseplate was then implanted into place according to our preoperative Blueprint plan by tightening down the central screw. A peripheral 5mm nonlocking screw was placed posteriorly first for additional compression of the baseplate, and then additional locking 5 mm peripheral screws were placed to complete fixation of the baseplate. Glenosphere was then impacted and secured. A trial humeral tray and insert were placed on the trial humeral stem, and a trial reduction was carried out. Once I achieved acceptable joint stability and range of motion with the trial implants, the final humeral implants were assembled on the back table and then impacted into position. I then took the shoulder through full range of motion to ensure good stability and acceptable motion. Wound was then copiously irrigated with sterile saline. Deep fascia was closed with 0 V-lock suture. Subcutaneous tissue was closed with 2-0 V-lock, and skin was closed with 3-0 V-lock. Skin was then sealed with Dermabond. Sterile dressings were then applied with a waterproof silver-impregnated dressing, and the arm was placed into a sling. The patient was awakened from anesthesia and taken to the Post Anesthesia Care Unit in stable condition. There were no immediate complications from the procedure. I was present and scrubbed for the entire procedure, with the exception of final skin closure and dressing application. Due to the complex nature of the procedure, the entire surgery was performed with the operational assistance of Shantanu Castro PA-C. The training program assistant, under direct supervision, was involved in the performance of all aspects of the surgical procedure including patient positioning, tissue retraction, hemostasis, wound closure, and dressing application. I attest to the content of the Intraoperative Record and any orders documented therein. Any exceptions are noted below.
--- NOTE | 2020-09-29 14:13 | Post Operative Brief Note ---
Immediate Post Op Note v1 Date of Surgery September 29, 2020 Pre & Post Diagnosis Operation Date: 09/29/20 11:05 Pre-Op Diagnosis: Left shoulder post-traumatic arthritis Post-Op Diagnosis: Left shoulder post-traumatic arthritis I identified the patient and participated in the time-out.: Yes Procedure Operation Date: 09/29/20 11:05 Actual Procedures Left Reverse Total Shoulder Arthroplasty with biceps tenodesis - Obdulio Grossman M.D. Surgeon Obdulio Grossman Patch Setter Shantanu Castro PA-C Estimated Blood Loss 75 Findings Consistent with Post-Op Diagnosis
--- NOTE | 2020-09-29 15:30 | XRay Report ---
XR shoulder LT min 2V routine CLINICAL HISTORY: Post shoulder surgery COMPARISON: None FINDINGS: Alignment of the reverse total left shoulder arthroplasty is anatomic. There is no peripro sthetic fracture or unexpected radiopaque foreign body. Incidental note is made of an anterior cervic al spine fusion. IMPRESSION: Expected findings following reverse total left shoulder arthroplasty. ACT 112: Negative or not required by law. Electronically signed by: West King M.D. 09/29/2020 3:29 PM
[2020-09-29] MEDS ORDERED: NALOXONE HCL 0.4 MG/1 ML VIAL/CARP IV PRN (15:49)
[2020-09-29] MEDS ORDERED: FLUTICASONE PROPIONATE NA SPR 16 GM BTL PRN (15:49)
[2020-09-29] MEDS ORDERED: bisacodyL 10 MG SUPP PR PRN (15:49)
[2020-09-29] MEDS ORDERED: METOCLOPRAMIDE HCL INJ 5 MG/ML 2 ML VIAL IV PRN (15:49)
[2020-09-29] MEDS ORDERED: oxyCODONE HCL IR 5 MG TAB (IMMEDIATE RELEASE) PO PRN (15:49)
[2020-09-29] MEDS ORDERED: MAGNESIUM HYDROXIDE SUSP 30 ML UDC PO PRN (15:49)
[2020-09-29] MEDS: SODIUM CHLORIDE 0.9% 1000ML 1,000 ML IV SCH (15:52)
--- NOTE | 2020-09-29 16:09 | Anesthesiology Progress Note ---
Date of Service September 29, 2020 Anesthesia Post Procedure Vital Signs Vital Signs: Temp Pulse Pulse Resp BP Pulse Ox 09/29/20 16:01 76 18 125/74 96 09/29/20 15:30 36.2 C L 72 18 110/67 97 09/29/20 15:21 83 16 115/61 94 09/29/20 15:10 36.3 C L 83 16 124/65 94 09/29/20 15:00 77 14 116/65 95 09/29/20 14:50 81 14 99/63 L 94 09/29/20 14:40 85 18 110/70 95 09/29/20 14:30 36.4 C L 71 16 116/71 97 09/29/20 10:00 36.6 C 54 L 18 118/78 98 09/29/20 09:19 36.6 C 62 20 140/73 98 Transfer of Care Handoff Completed per policy Notes Mental Status: alert / awake / arousable Patient Amnestic to Procedure: Yes Nausea / Vomiting: adequately controlled Pain: adequately controlled Airway Patency, RR, SpO2: stable & adequate BP & HR: stable & adequate Hydration State: stable & adequate Anesthetic Complications: no major complications apparent
[2020-09-29] MEDS: ACETAMINOPHEN 500 MG TAB PO SCH ×2 (16:27→20:43)
--- NOTE | 2020-09-29 16:55 | Orthopedic Progress Note ---
Date of Service September 29, 2020 Assessment & Plan (1) Post-traumatic osteoarthritis, left shoulder: Postoperative day #0 status post left reverse total shoulder arthroplasty for severe posttraumatic arthritis. -Ancef x24 hours. Of note, patient's chart has cephalosporin allergy listed, but patient states that this is inaccurate. She states that she has never had hives in her life, and she does not recall ever being given cephalosporins. She tolerated Ancef intraoperatively without any difficulty. -DVT prophylaxis: Aspirin 3 and 25 mg daily -Reviewed activity restrictions: No resisted elbow flexion, no resisted forearm supination. -Anticipate discharge home tomorrow. Admission and Anticipated Discharge Date Admission Date: September 29, 2020 Subjective Postop check Patient doing very well. Denies any pain. Nerve block starting to wear off. Otherwise feeling very well. States she is hungry. Physical Exam Physical Exam: Left shoulder dressings clean, dry, and intact Results & Data ([facility]) Vital Signs (Past 12 Hours) Vital Signs Temp Pulse Pulse Resp BP Pulse Ox 09/29/20 16:28 69 18 106/70 96 09/29/20 16:01 76 18 125/74 96 09/29/20 15:30 36.2 C L 72 18 110/67 97 09/29/20 15:21 83 16 115/61 94 09/29/20 15:10 36.3 C L 83 16 124/65 94 09/29/20 15:00 77 14 116/65 95 09/29/20 14:50 81 14 99/63 L 94 09/29/20 14:40 85 18 110/70 95 09/29/20 14:30 36.4 C L 71 16 116/71 97 09/29/20 10:00 36.6 C 54 L 18 118/78 98 09/29/20 09:19 36.6 C 62 20 140/73 98
--- NOTE | 2020-09-29 17:00 | Hospitalist Consultation ---
Date of Consultation September 29, 2020 Assessment & Plan (1) Status post total shoulder arthroplasty: This is an 84yo F with a PMH HTN, HLD, COPD, CKD III, tobacco use disorder and other medical problems listed below who is POD#0 s/p Left reverse TSA by Dr. Grossman. POD#0 s/p Left reverse TSA by Dr. Grossman. Pt is doing well post-operatively Per ortho for pain control, wound care, anticoagulation and activities Monitor H&H (EBL: 75ml, pre-op hgb 14.6), continue incentive spirometry, PT/OT when appropriate (2) Hyperlipidemia: Continue statin (3) CKD (chronic kidney disease), stage III: Baseline creatinine around 1. Monitor with daily BMP (4) COPD (chronic obstructive pulmonary disease): Per records. Patient not using any inhalers, stable (5) Acid reflux: Continue PPI (6) Tobacco use disorder: Offered nicotine patch and declined PCP: Sonal Dispo: Per primary service Patient seen in collaboration with Dr. Quinteros. Please see addendum. Supervising Physician Co-Signing Physician Notes Patient was seen and examined by me, care coordinated with Aarti Burrows PA-C, please refer to her note above for further detail. Patient is an 84-year-old female with history of hypertension, hyperlipidemia, GERD, who underwent left reverse total shoulder arthroplasty with Dr. Topete's earlier today. Currently she is lying in the bed, in no acute distress, she is on 2 L of oxygen via nasal cannula. She is alert oriented answering questions appropriately however she is sleepy. Lungs are clear to auscultation bilaterally w/o any wheezing rhonchi or crackles, heart sounds regular. Abdomen soft, nontender nondistended. She has SCDs placed on her lower extremities. She is moving lower extremities, she has her left arm in a sling. Currently blood pressure is on the lower side, receiving IV fluids, will give small bolus of 250. She is drinking well, and she is also voiding without difficulty. Reports her blood pressure is usually on the lower side. We will continue to monitor closely. Thomas Quinteros MD History of Present Illness Reason for Consultation: Postop medical management Attending Physician: Obdulio Grossman History of Present Illness This is an 84yo F with a PMH HTN, HLD, COPD, CKD III, tobacco use disorder and other medical problems listed below who is POD#0 s/p Left reverse TSA by Dr. Grossman. Feeling well postoperatively. Denies any pain at surgical site. No numbness or pain in distal right extremity. Denies any postoperative lightheadedness, visual changes, chest pain or shortness of breath. No fever or chills. No nausea, vomiting, abdominal pain, dysuria, diarrhea or constipation. PCP is Dr. Pruitt. Allergies Allergy/AdvReac Type Severity Reaction Status Date / Time imipenem Allergy Severe Dyspnea Verified 09/29/20 09:13 meropenem Allergy Severe Dyspnea Verified 09/29/20 09:13 penicillamine Allergy Severe Dyspnea Verified 09/29/20 09:13 ranitidine Allergy Severe Dyspnea Verified 09/29/20 09:13 ampicillin Allergy Intermediate Dyspnea, Verified 09/29/20 09:13 hives azithromycin Allergy Intermediate Hives, Verified 09/29/20 09:13 angioedema Cephalosporins Allergy Intermediate Hives Verified 09/29/20 09:13 cilastatin Allergy Intermediate Dyspnea Verified 09/29/20 09:13 Macrolide Antibiotics Allergy Intermediate Hives, Verified 09/29/20 09:13 angioedema Penicillins Allergy Intermediate Hives Verified 09/29/20 09:13 adhesive Allergy Mild Rash Verified 09/29/20 09:13 Carbapenems Allergy Unknown Dyspnea Verified 09/29/20 09:13 Home Medications Medication Instructions Recorded Confirmed Type aspirin [Aspirin Low Dose] 81 mg PO QAM 12/14/18 09/29/20 History cyanocobalamin (vitamin B-12) 1,000 mcg PO PM 12/14/18 09/29/20 History [Vitamin B-12] fluticasone propionate 2 spray INTRANASAL QAM PRN 12/14/18 09/29/20 History lisinopril 40 mg PO QAM 12/14/18 09/29/20 History multivitamin 1 tab PO QAM 12/14/18 09/29/20 History omeprazole 20 mg PO QAM 12/14/18 09/29/20 History rosuvastatin [Crestor] 20 mg PO QAM 11/12/19 09/29/20 History cholecalciferol (vitamin D3) 25 mcg PO QAM 05/05/20 09/29/20 History [Vitamin D3] Patient History Medical History (Updated 09/29/20 @ 17:07 by Aarti Burrows PA-C) Acid reflux controlled Carotid stenosis 50-69% right sided stenosis per 09/2018 doppler report but personal review of imaging by vascular felt that carotid artery stenosis <50% b/l - advised by vascular to f/u PRN Chronic constipation CKD (chronic kidney disease), stage III COPD (chronic obstructive pulmonary disease) Per records- patient denies History of left shoulder fracture 07/2019 - medically managed until this upcoming surgery Hx of cancer of uterus s/p hysterectomy with USO Hyperlipidemia Hypertension Post-traumatic osteoarthritis, left shoulder Tobacco use disorder Surgical History (Updated 09/29/20 @ 17:05 by Aarti Burrows PA-C) Fusion of spine Left SI joint fusion: 06/14/2020: Grade 2 view, MAC 3.0, ETT 7.0 at [facility] H/O hemorrhoidectomy H/O: hysterectomy + USO History of appendectomy History of cataract surgery R/L History of cholecystectomy History of colonoscopy History of lumbar fusion History of surgery "Windpipe growth" removal History of tonsillectomy Hx of fusion of cervical spine Hx of surgical procedure Right SI joint fusion Hx of tooth extraction Family History Other Heart disease Social History Smoking Status: Current every day smoker Cigarettes Per Day: 10-20 cigs/day x 30 years; Second Hand Exposure: No; Do You Dip or Chew Tobacco: No; Tobacco Cessation Education Requested by Patient: No Hx Alcohol Use: No Hx Substance Use: No Preferred Language: Egyptian Communication Ability: Effective Truck Bracer Required: No Beliefs That Will Affect Care: None Current Living Situation: Spouse Feels Safe at Home: Yes Safety Concerns: Feels Safe At This Time Assistive Devices: Denture - Upper, Denture - Lower and Glasses Assistive Devices Comment: READING GLASSES Review of Systems Review of Systems: At least ten systems reviewed and negative except as noted in the HPI. Physical Exam Physical Exam: General Appearance: WD/WN, vitals as above, NAD, sitting up in bed, pleasant, conversing easily Head: normocephalic, atraumatic Eyes: normal inspection, PERRL, conjunctivae normal, anicteric sclerae ENT: external ear and nose normal, oropharynx normal Neck: normal visual inspection, trachea midline, no thyromegaly Respiratory: normal respiratory effort, lungs clear to auscultation, no wheeze, rales, rhonchi. No accessory muscle use Cardiovascular: regular rate, rhythm, no murmur, normal peripheral pulses, no BLE edema Abdomen/GI: normal bowel sounds, soft, nontender, no hepatosplenomegaly Extremities/Musculoskeletal: + L shoulder in sling. Sleeve Turner strength intact. Cap refill <2. No cyanosis or clubbing, extremities motor strength 5/5 Neurologic: PERRL, EOMI, accommodation nl, no face palsy, no dysarthria, CN's II-XI intact bilaterally and moves all extremities Psychiatric: A+Ox3, euthymic affect Skin: no rashes, normal color, warm/dry Results & Data Results & Data ([facility]) Vital Signs (Past 12 Hours) Vital Signs Temp Pulse Pulse Resp BP Pulse Ox 09/29/20 16:28 69 18 106/70 96 09/29/20 16:01 76 18 125/74 96 09/29/20 15:30 36.2 C L 72 18 110/67 97 09/29/20 15:21 83 16 115/61 94 09/29/20 15:10 36.3 C L 83 16 124/65 94 09/29/20 15:00 77 14 116/65 95 09/29/20 14:50 81 14 99/63 L 94 09/29/20 14:40 85 18 110/70 95 09/29/20 14:30 36.4 C L 71 16 116/71 97 09/29/20 10:00 36.6 C 54 L 18 118/78 98 09/29/20 09:19 36.6 C 62 20 140/73 98 Diagnostic Findings Shoulder X-Ray 09/29/20 14:47 XR shoulder LT min 2V routine CLINICAL HISTORY: Post shoulder surgery COMPARISON: None FINDINGS: Alignment of the reverse total left shoulder arthroplasty is anatomic. There is no periprosthetic fracture or unexpected radiopaque foreign body. Incidental note is made of an anterior cervical spine fusion. IMPRESSION: Expected findings following reverse total left shoulder arthrop lasty. ACT 112: Negative or not required by law. Electronically signed by: West King M.D. 09/29/2020 3:29 PM
[2020-09-29] MEDS ORDERED: SODIUM CHLORIDE 0.9% 1000ML 250 ML IV ONE (17:35)
[2020-09-29] MEDS: IBUPROFEN 600 MG TAB PO SCH ×2 (17:55→23:24)
[2020-09-29] MEDS ORDERED: diphenhydrAMINE Capsule 25 MG CAP PO PRN (18:00)
[2020-09-29] MEDS: SENNA 8.6 MG TAB PO SCH (20:43)
[2020-09-29] MEDS: ceFAZolin 1000MG 1,000 MG/7.5 ML SYR IV SCH (20:43)
[2020-09-29] MEDS: DOCUSATE SODIUM 100 MG CAP PO SCH (20:43)
[2020-09-29] MEDS: CYANOCOBALAMIN 500 MCG TABLET (VITAMIN B-12) PO SCH (20:44)
[2020-09-30] MEDS: SODIUM CHLORIDE 0.9% 1000ML 1,000 ML IV SCH (01:21)
[2020-09-30] MEDS: ACETAMINOPHEN 500 MG TAB PO SCH ×4 (03:47→21:45)
[2020-09-30] MEDS: ceFAZolin 1000MG 1,000 MG/7.5 ML SYR IV SCH (03:47)
[2020-09-30] MEDS: IBUPROFEN 600 MG TAB PO SCH (05:34)
[2020-09-30 05:35] LABS: Basophils # (auto) 0.01 K/uL (0-0.2); Basophils % (auto) 0.1 %; Eosinophils # (auto) 0.01 K/uL (0-0.5); Eosinophils % (auto) 0.1 %; Hematocrit (blood only) 37.7 % (37-47); Hemoglobin 12.6 g/dL (12.0-16.0); Lymphocytes # (auto) 0.94 K/uL (1.2-3.4); Lymphocytes % (auto) 10.4 %; Mean Corpuscular Hemoglobin 29.1 pg (25-34); Mean Corpuscular Hgb Conc 33.4 g/dL (32-36); Mean Corpuscular Volume 87.1 fL (80-100); Mean Platelet Volume 9.7 fL (7.4-10.4); Monocytes # (auto) 0.62 K/uL (0.11-0.59); Monocytes % (auto) 6.9 %; Neutrophils # (auto) 7.47 K/uL (1.4-6.5); Neutrophils % (auto) 82.5 %; Platelet Count 199 K/uL (130-400); RDW Coefficient of Variation 14.4 % (11.5-14.5); RDW Standard Deviation 45.7 fL (36.4-46.3); Red Blood Count 4.33 M/uL (4.2-5.4); White Blood Count 9.05 K/uL (4.8-10.8)
[2020-09-30 05:52] LABS: BUN Creatinine Ratio 28.1 (10-20); Calcium 8.5 mg/dl (8.5-10.1); Creatinine Clr Calc Pharmacy 48.1 ml/min; Est GFR (African American) 70.4; Est GFR (Non-African American) 60.8; Potassium 4.3 mmol/L (3.5-5.1)
[2020-09-30] MEDS ORDERED: PROMETHAZINE HCL 6.25 MG in SODIUM CHLORIDE 0.9% 50 ML IV PRN (06:09)
--- NOTE | 2020-09-30 06:09 | Communication Note ---
Date of Service: September 30, 2020 Notified by RN of patient nausea, upper abdominal pain complaints. Dark-colored emesis as per RN. No bowel movement the last 2 days as per patient. Patient denies chest pain, S OB. PPE : Distention, epigastric tenderness RECTAL : Empty rectal vault, stool FOBT negative Hemoglobin 12.6 (from preop 14.6 last month) AP ? UGIB hx Contreras's esophagus ? NSAID gastritis N.p.o. for now IV PPI Hold aspirin, RTC ibuprofen CT abdomen pelvis GI consult Re: UGI B Trend H&H, transfuse PRBC if hemoglobin less than 7 and or for symptomatic anemia. Case discussed with Dr. Grossman (surgeon) who is in agreement with plan of care.
[2020-09-30] MEDS ORDERED: PANTOprazole 80 MG in DEXTROSE 5% 100 ML IV ONE (06:30)
[2020-09-30] MEDS ORDERED: SODIUM CHLORIDE 0.9% 1000ML 1,000 ML IV SCH (06:30)
[2020-09-30] MEDS ORDERED: OPTIRAY 300 100mL IV ONE (06:42)
[2020-09-30] MEDS: DOCUSATE SODIUM 100 MG CAP PO SCH ×2 (07:18→21:44)
[2020-09-30] MEDS: PANTOprazole 40 MG in DEXTROSE 5% 100 ML IV SCH ×4 (07:18→22:12)
[2020-09-30] MEDS: CHOLECALCIFEROL 1,000 UNITS 25 MCG TAB PO SCH (07:18)
[2020-09-30] MEDS: MULTIVITAMIN TAB PO SCH (07:19)
[2020-09-30] MEDS: ROSUVASTATIN CALCIUM 20 MG TAB PO SCH (07:19)
--- NOTE | 2020-09-30 08:34 | CT Scan Report ---
CT abd pelvis IV con only CLINICAL HISTORY: abd pain COMPARISON STUDY: None. TECHNIQUE: Patient was scanned in a dynamic helical fashion during intravenous administration of 89 c c of Optiray 320. A dose lowering technique was utilized adhering to the principles of ALARA. CT DOSE: 956.96 mGycm FINDINGS: Lower chest: There are lingular and left lower lobe airspace opacities with air bronchograms, atelect asis versus pneumonia. Clinical and imaging follow-up are recommended. There is a trace left pleural effusion. Liver: This 21 mm left hepatic hypodensity, statistically representing a cyst. There is an 8mm right hepatic lobe hypodensity, also likely representing a cyst. Gallbladder: Not visualized presumed surgically absent Spleen: Normal in size and attenuation. Pancreas: Unremarkable. Adrenal glands: Unremarkable. Kidneys: There is upper pole left renal cortical scarring. There is a 24 mm upper pole left renal les ion which exceeds water attenuation and is therefore indeterminate. Additional renal hypodensities ar e felt to represent cysts. There are upper pole left renal calcifications which appear at least in pa rt parenchymal. Bowel: There are no transition zones indicate bowel obstruction. There is no evidence of acute divert iculitis. There are no findings to indicate acute appendicitis. Peritoneum: There is no intraperitoneal free air or abdominal ascites. Vasculature: There are aortoiliac atheromatous changes. Adenopathy: None. Pelvic viscera: The uterus is surgically absent. Skeletal structures: Postsurgical changes are present within the spine and sacroiliac joints. IMPRESSION: 1. Elevation left hemidiaphragm with lingular and left lower lobe airspace opacities with air broncho grams. Pneumonia versus atelectasis. Clinical and radiographic follow-up are recommended 2. No evidence of bowel obstruction. No evidence of free air. No evidence of acute appendicitis. No e vidence of acute diverticulitis 3. Left upper pole renal scarring. 24 mm left upper pole hypodense lesion which exceeds water attenua tion and is therefore indeterminate. There are associated calcifications, which may in part be parenc hymal. Ultrasound follow-up recommended to help determine whether this is a cystic or solid lesion. ACT 112: Negative or not required by law. Electronically signed by: Jamaal Marcum M.D. 09/30/2020 8:32 AM
[2020-09-30 08:36] LABS: Bilirubin Direct 0.2 mg/dl (0-0.2); Bilirubin,Total 0.5 mg/dl (0.2-1); Total Protein 5.8 gm/dl (6.4-8.2)
--- NOTE | 2020-09-30 08:58 | Hospitalist Progress Note ---
Date of Service September 30, 2020 Assessment & Plan (1) Status post total shoulder arthroplasty: This is an 84yo F with a PMH HTN, HLD, COPD, CKD III, tobacco use disorder and other medical problems listed below who is POD#1 s/p Left reverse TSA by Dr. Grossman. POD#1 s/p Left reverse TSA by Dr. Grossman. Per ortho for pain control, wound care, anticoagulation and activities Monitor H&H (EBL: 75ml, hgb 12.6 today from pre-op 14.6), continue incentive spirometry, PT/OT when appropriate (2) Hematemesis: Had episode of dark emesis this morning per RN, concern for UGI bleed Holding aspirin and ibuprofen Started on IV PPI, gentle IVF, NPO except meds/sips of water, CT abd/pelvis without evidence of vowel obstruction, free air, acute appendicitis or acute diverticulitis Continue antiemetics, monitor H/H with repeat labs @ 1200 Evaluated by gastroenterology service who plan for EGD this afternoon to evaluate for ulcer disease and esophagitis/gastritis (3) Hyperlipidemia: Continue statin (4) CKD (chronic kidney disease), stage III: Kindey function at baseline (Cr~1). Monitor with daily BMP (5) COPD (chronic obstructive pulmonary disease): Per records. Patient not using any inhalers, stable (6) Acid reflux: Continue PPI (7) Abnormal finding on CT scan: CT abd/pelvis with incidental finding of 24 mm left upper pole hypodense lesion which exceeds water attenuation and is therefore indeterminate. There are associated calcifications, which may in part be parenchymal Ultrasound follow-up recommended to help determine whether this is a cystic or solid lesion Will discuss with patient and put in discharge summary for PCP follow up (8) Tobacco use disorder: Offered nicotine patch and declined PCP: Sonal Dispo: Per primary service Patient seen in collaboration with Dr. Randle. Please see addendum. Admission and Anticipated Discharge Date Admission Date: September 29, 2020 Supervising Physician Co-Signing Physician Notes Patient is seen and examined at bedside. She had an episode of hematemesis this morning and complained of burning epigastric pain. Had EGD earlier today. EGD showed bleeding esophagitis with underlying Contreras's esophagus. Patient was treated with argon plasma coagulation. She denies chest pain, shortness of breath, dizziness. on exam patient is moderately built and nourished, no apparent distress, normocephalic atraumatic, lungs are clear to auscultation, normal breath sounds, S1-S2, no murmur, no pedal edema, abdomen soft, mild epigastric tenderness, no guarding or rigidity, left upper extremity in sling. Alert, awake, oriented, grossly no focal deficits. Patient is consulted for postop medical management. Pain control, activity as per primary team. Continue incentive spirometry. Bowel regimen to prevent constipation. Continue IV Protonix for 2 days due to bleeding esophagitis. Clear liquid diet for 2 days. Plan to discharge on Protonix twice daily for 3 months and patient would require repeat EGD in 3 months. Avoid NSAIDs. Monitor CBC. Appreciate GI help. Incidentally found left upper lobe renal lesion. Further work-up as outpatient. I personally reviewed the record. Patient is interviewed and examined at bedside. Patient's care is coordinated with Aarti Burrows PA-C. Please refer to the documentation above for details of patient's presentation and for discussion of other issues. Subjective Seen and examined in 304 bed 1. Was sitting upright just having finished PT evaluation. Patient with episode of hematemesis early this morning with small amount of dark red blood. Denies any recurrent episodes or nausea but still having burning epigastric pain. Denies any history of GI bleed in the past. Takes a baby aspirin daily and occasional naproxen at home. Has been receiving 600 ibuprofen every 6 hours while in the hospital. Per z os mainframe systems programmer who evaluated patient early this morning, aspirin and further NSAIDs held. IV PPI drip in itiated with routine gastroenterology consult. Currently patient without any other issues. Surgical site pain controlled. No chest pain, shortness of breath. Bowel movement in 2 days. Urinating without issue. Review of Systems Review of Systems: At least ten systems reviewed and negative except as noted in the HPI. Physical Exam Physical Exam: General Appearance: WD/WN, vitals as above, NAD, sitting up in bed, pleasant, conversing easily Head: normocephalic, atraumatic Eyes: normal inspection, PERRL, conjunctivae normal, anicteric sclerae ENT: external ear and nose normal, oropharynx normal Neck: normal visual inspection, trachea midline, no thyromegaly Respiratory: normal respiratory effort, lungs clear to auscultation, no wheeze, rales, rhonchi. No accessory muscle use Cardiovascular: regular rate, rhythm, no murmur, normal peripheral pulses, no BLE edema Abdomen/GI: normal bowel sounds, soft, epigastric tenderness on palpation, no hepatosplenomegaly Extremities/Musculoskeletal: + L shoulder in sling. Correspondence Analyst strength intact. Cap refill <2. No cyanosis or clubbing, extremities motor strength 5/5 Neurologic: PERRL, EOMI, accommodation nl, no face palsy, no dysarthria, CN's II-XI intact bilaterally and moves all extremities Psychiatric: A+Ox3, euthymic affect Skin: no rashes, normal color, warm/dry Results & Data Results & Data ([facility]) Vital Signs (Past 12 Hours) Vital Signs Temp Pulse Resp BP Pulse Ox 09/30/20 07:14 36.4 C L 89 16 151/76 H 90 09/30/20 03:50 92 09/30/20 03:45 36.8 C 86 16 156/67 H 96 09/29/20 23:13 36.3 C L 72 16 146/78 H 97 Laboratory Results Short CBC 09/30/20 Range/Units 05:18 WBC 9.05 (4.8-10.8) K/uL Hgb 12.6 (12.0-16.0) g/dL Hct 37.7 (37-47) % Plt Count 199 (130-400) K/uL BMP 09/30/20 05:18 Sodium 139 Potassium 4.3 Chloride 110 H Carbon Dioxide 26 BUN 25 H Creatinine 0.88 Glucose 135 H Calcium 8.5 Liver Function 09/30/20 Range/Units 05:18 Total Bilirubin 0.5 (0.2-1) mg/dl Direct Bilirubin 0.2 (0-0.2) mg/dl AST 20 (15-37) U/L ALT 19 (12-78) U/L Alkaline Phosphatase 64 (45-117) U/L Albumin 3.0 L (3.4-5.0) gm/dl Diagnostic Findings Shoulder X-Ray 09/29/20 14:47 XR shoulder LT min 2V routine CLINICAL HISTORY: Post shoulder surgery COMPARISON: None FINDINGS: Alignment of the reverse total left shoulder arthroplasty is anatomic. There is no periprosthetic fracture or unexpected radiopaque foreign body. Incidental note is made of an anterior cervical spine fusion. IMPRESSION: Expected findings following reverse total left shoulder arthroplasty. ACT 112: Negative or not required by law. Electronically signed by: West King M.D. 09/29/2020 3:29 PM Abdomen/Pelvis CT 09/30/20 06:15 CT abd pelvis IV con only CLINICAL HISTORY: abd pain COMPARISON STUDY: None. TECHNIQUE: Patient was scanned in a dynamic helical fashion during intravenous administration of 89 cc of Optiray 320. A dose lowering technique was utilized adhering to the principles of ALARA. CT DOSE: 956.96 mGycm FINDINGS: Lower chest: There are lingular and left lower lobe airspace opacities with air bronchograms, atelectasis versus pneumonia. Clinical and imaging follow-up are recommended. There is a trace left pleural effusion. Liver: This 21 mm left hepatic hypodensity, statistically representing a cyst. There is an 8mm right hepatic lobe hypodensity, also likely representing a cyst. Gallbladder: Not visualized presumed surgically absent Spleen: Normal in size and attenuation. Pancreas: Unremarkable. Adrenal glands: Unremarkable. Kidneys: There is upper pole left renal cortical scarring. There is a 24 mm upper pole left renal lesion which exceeds water attenuation and is therefore indeterminate. Additional renal hypodensities are felt to represent cysts. There are upper pole left renal calcifications which appear at least in part parenchymal. Bowel: There are no transition zones indicate bowel obstruction. There is no evidence of acute diverticulitis. There are no findings to indicate acute appendicitis. Peritoneum: There is no intraperitoneal free air or abdominal ascites. Vasculature: There are aortoiliac atheromatous changes. Adenopathy: None. Pelvic viscera: The uterus is surgically absent. Skeletal structures: Postsurgical changes are present within the spine and sacroiliac joints. IMPRESSION: 1. Elevation left hemidiaphragm with lingular and left lower lobe airspace opacities with air bronchograms. Pneumonia versus atelectasis. Clinical and radiographic follow-up are recommended 2. No evidence of bowel obstruction. No evidence of free air. No evidence of acute appendicitis. No evidence of acute diverticulitis 3. Left upper pole renal scarring. 24 mm left upper pole hypodense lesion which exceeds water attenuation and is therefore indeterminate. There are associated calcifications, which may in part be parenchymal. Ultrasound follow-up recommended to help determine whether this is a cystic or solid lesion. ACT 112: Negative or not required by law. Electronically signed by: Jamaal Marcum M.D. 09/30/2020 8:32 AM
[2020-09-30] MEDS ORDERED: ASPIRIN 325 MG ECTAB PO SCH (09:00)
[2020-09-30] MEDS ORDERED: lisinopril 40 MG TAB PO SCH (09:00)
[2020-09-30] MEDS ORDERED: PANTOprazole 40 MG TAB PO SCH (09:00)
[2020-09-30] MEDS ORDERED: MULTIVITAMIN TAB PO SCH (09:00)
--- NOTE | 2020-09-30 09:38 | Orthopedic Progress Note ---
Date of Service September 30, 2020 Assessment & Plan (1) Post-traumatic osteoarthritis, left shoulder: Postoperative day #1 status post left reverse total shoulder arthroplasty for severe posttraumatic arthritis. -Ancef x24 hours. Then discontinue. Of note, patient's chart has cephalosporin allergy listed, but patient states that this is inaccurate. She states that she has never had hives in her life, and she does not recall ever being given cephalosporins. She tolerated Ancef intraoperatively without any difficulty. -Coffee-ground emesis this morning. Question upper GI bleed. Hemoglobin stable for now. Medicine service is on board and consulted GI for consult. Plan to follow hemoglobin today. NSAIDs on hold right now. -DVT prophylaxis: SCDs and LENIN hose. -Reviewed activity restrictions: No resisted elbow flexion, no resisted forearm supination. Admission and Anticipated Discharge Date Admission Date: September 29, 2020 Subjective Postop day 1 Patient lying in bed awake and alert. Patient had an episode of what was deemed coffee-ground emesis. Patient was having what seemed to be like symptoms and pain in the chest and abdominal region. She was seen by Aarti Burrows PA-C this morning and evaluated. Hemoglobin this morning was 12.6. Patient currently states she is feeling a little better. She states that her shoulder is feeling good and pain is controlled. She denies any shortness of breath, chest pain or lightheadedness at this time. Physical Exam Physical Exam: Silverlon dressing is clean, dry, and intact. Sling is intact. CMS is intact. She has good range of motion of her wrist hand and fingers with no decrease in sensation and good strength. Capillary refill is less than 2 seconds. Results & Data ([facility]) Vital Signs (Past 12 Hours) Vital Signs Temp Pulse Resp BP Pulse Ox 09/30/20 07:14 36.4 C L 89 16 151/76 H 90 09/30/20 03:50 92 09/30/20 03:45 36.8 C 86 16 156/67 H 96 09/29/20 23:13 36.3 C L 72 16 146/78 H 97 Laboratory Results Laboratory Results WBC 9.05 K/uL (4.8-10.8) 09/30/20 05:18 RBC 4.33 M/uL (4.2-5.4) 09/30/20 05:18 Hgb 12.6 g/dL (12.0-16.0) 09/30/20 05:18 Hct 37.7 % (37-47) 09/30/20 05:18 MCV 87.1 fL (80-100) 09/30/20 05:18 MCH 29.1 pg (25-34) 09/30/20 05:18 MCHC 33.4 g/dL (32-36) 09/30/20 05:18 RDW Std Deviation 45.7 fL (36.4-46.3) 09/30/20 05:18 RDW Coeff of Devi 14.4 % (11.5-14.5) 09/30/20 05:18 Plt Count 199 K/uL (130-400) 09/30/20 05:18 MPV 9.7 fL (7.4-10.4) 09/30/20 05:18 Immature Gran % (Auto) 0.0 % 09/30/20 05:18 Neut % (Auto) 82.5 % 09/30/20 05:18 Lymph % (Auto) 10.4 % 09/30/20 05:18 [place] % (Auto) 6.9 % 09/30/20 05:18 Eos % (Auto) 0.1 % 09/30/20 05:18 Baso % (Auto) 0.1 % 09/30/20 05:18 Neut # (Auto) 7.47 K/uL (1.4-6.5) H 09/30/20 05:18 Lymph # (Auto) 0.94 K/uL (1.2-3.4) L 09/30/20 05:18 [place] # (Auto) 0.62 K/uL (0.11-0.59) H 09/30/20 05:18 Eos # (Auto) 0.01 K/uL (0-0.5) 09/30/20 05:18 Baso # (Auto) 0.01 K/uL (0-0.2) 09/30/20 05:18 Immature Gran # (Auto) 0.00 K/uL (0.00-0.02) 09/30/20 05:18 PT 10.2 Seconds (9.0-12.0) 09/02/20 11:40 INR 1.0 (0.9-1.1) 09/02/20 11:40 APTT 25.8 Seconds (21.0-31.0) 09/02/20 11:40 PTT Ratio 1.0 09/02/20 11:40 Sodium 139 mmol/L (136-145) 09/30/20 05:18 Potassium 4.3 mmol/L (3.5-5.1) 09/30/20 05:18 Chloride 110 mmol/L (98-107) H 09/30/20 05:18 Carbon Dioxide 26 mmol/L (21-32) 09/30/20 05:18 Anion Gap 3.0 (3-11) 09/30/20 05:18 BUN 25 mg/dl (7-18) H 09/30/20 05:18 Creatinine 0.88 mg/dl (0.6-1.2) 09/30/20 05:18 Est Cr Clr Drug Dosing 48.1 ml/min 09/30/20 05:18 Est GFR ( Amer) 70.4 09/30/20 05:18 Est GFR (Non-Af Amer) 60.8 09/30/20 05:18 BUN/Creatinine Ratio 28.1 (10-20) H 09/30/20 05:18 Glucose 135 mg/dl (70-99) H 09/30/20 05:18 Estimat Average Glucose 105 mg/dl 09/02/20 11:40 Hemoglobin A1c 5.3 % (4.5-5.6) 09/02/20 11:40 Calcium 8.5 mg/dl (8.5-10.1) 09/30/20 05:18 Total Bilirubin 0.5 mg/dl (0.2-1) 09/30/20 05:18 Direct Bilirubin 0.2 mg/dl (0-0.2) 09/30/20 05:18 AST 20 U/L (15-37) 09/30/20 05:18 ALT 19 U/L (12-78) 09/30/20 05:18 Alkaline Phosphatase 64 U/L (45-117) 09/30/20 05:18 Total Protein 5.8 gm/dl (6.4-8.2) L 09/30/20 05:18 Albumin 3.0 gm/dl (3.4-5.0) L 09/30/20 05:18 Lipase 36 U/L (73-393) L 09/30/20 05:18 Urine Color Yellow 09/02/20 Unknown Urine Appearance Clear (Clear) 09/02/20 Unknown Urine pH 5.5 (4.5-7.5) 09/02/20 Unknown Ur Specific [place] 1.014 (1.000-1.030) 09/02/20 Unknown Urine Protein Negative (Negative) 09/02/20 Unknown Urine Glucose (UA) Negative (Negative) 09/02/20 Unknown Urine Ketones Negative (Negative) 09/02/20 Unknown Urine Blood Negative (Negative) 09/02/20 Unknown Urine Nitrite Negative (Negative) 09/02/20 Unknown Urine Bilirubin Negative (Negative) 09/02/20 Unknown Urine Urobilinogen Negative (Negative) 09/02/20 Unknown Ur Leukocyte Esterase Negative (Negative) 09/02/20 Unknown COVID-19 Eval Order Covid19 [facility]Now [facility], [facility]–1983 09/29/20 09:02 SARS-CoV-2 RNA (JOHNATHAN) Negative (Negative) 09/02/20 11:42 SARS-CoV-2, RNA, NAAT NEGATIVE (NEGATIVE) 09/29/20 09:02 Blood Type O Positive 09/02/20 11:40 Antibody Screen NEGATIVE 09/02/20 11:40 Impressions Shoulder X-Ray 09/29/20 14:47 XR shoulder LT min 2V routine CLINICAL HISTORY: Post shoulder surgery COMPARISON: None FINDINGS: Alignment of the reverse total left shoulder arthroplasty is anatomic. There is no periprosthetic fracture or unexpected radiopaque foreign body. Incidental note is made of an anterior cervical spine fusion. IMPRESSION: Expected findings following reverse total left shoulder arthrop lasty. ACT 112: Negative or not required by law. Electronically signed by: [place] King M.D. 09/29/2020 3:29 PM Abdomen/Pelvis CT 09/30/20 06:15 CT abd pelvis IV con only CLINICAL HISTORY: abd pain COMPARISON STUDY: None. TECHNIQUE: Patient was scanned in a dynamic helical fashion during intravenous administration of 89 cc of Optiray 320. A dose lowering technique was utilized adhering to the principles of ALARA. CT DOSE: 956.96 mGycm FINDINGS: Lower chest: There are lingular and left lower lobe airspace opacities with air bronchograms, atelectasis versus pneumonia. Clinical and imaging follow-up are recommended. There is a trace left pleural effusion. Liver: This 21 mm left hepatic hypodensity, statistically representing a cyst. There is an 8mm right hepatic lobe hypodensity, also likely representing a cyst. Gallbladder: Not visualized presumed surgically absent Spleen: Normal in size and attenuation. Pancreas: Unremarkable. Adrenal glands: Unremarkable. Kidneys: There is upper pole left renal cortical scarring. There is a 24 mm upper pole left renal lesion which exceeds water attenuation and is therefore indeterminate. Additional renal hypodensities are felt to represent cysts. There are upper pole left renal calcifications which appear at least in part parenchymal. Bowel: There are no transition zones indicate bowel obstruction. There is no evidence of acute diverticulitis. There are no findings to indicate acute appendicitis. Peritoneum: There is no intraperitoneal free air or abdominal ascites. Vasculature: There are aortoiliac atheromatous changes. Adenopathy: None. Pelvic viscera: The uterus is surgically absent. Skeletal structures: Postsurgical changes are present within the spine and sacroiliac joints. IMPRESSION: 1. Elevation left hemidiaphragm with lingular and left lower lobe airspace opacities with air bronchograms. Pneumonia versus atelectasis. Clinical and rad iographic follow-up are recommended 2. No evidence of bowel obstruction. No evidence of free air. No evidence of acute appendicitis. No evidence of acute diverticulitis 3. Left upper pole renal scarring. 24 mm left upper pole hypodense lesion which exceeds water attenuation and is therefore indeterminate. There are associated calcifications, which may in part be parenchymal. Ultrasound follow-up r ecommended to help determine whether this is a cystic or solid lesion. ACT 112: Negative or not required by law. Electronically signed by: Jamaal Marcum M.D. 09/30/2020 8:32 AM
[2020-09-30] MEDS: lisinopril 40 MG TAB PO SCH (09:53)
[2020-09-30 10:38] LABS: Hematocrit (blood only) 37.2 % (37-47); Hemoglobin 12.3 g/dL (12.0-16.0); Mean Corpuscular Volume 87.7 fL (80-100); Mean Platelet Volume 9.8 fL (7.4-10.4); Platelet Count 187 K/uL (130-400); RDW Coefficient of Variation 14.6 % (11.5-14.5); RDW Standard Deviation 46.5 fL (36.4-46.3); Red Blood Count 4.24 M/uL (4.2-5.4); White Blood Count 7.94 K/uL (4.8-10.8)
[2020-09-30 10:46] LABS: Mean Corpuscular Hgb Conc 33.1 g/dL (32-36)
[2020-09-30 10:52] LABS: Blood Urea Nitrogen 29 mg/dl (7-18)
[2020-09-30 10:59] LABS: Troponin I < 0.015 ng/ml (0-0.045)
--- NOTE | 2020-09-30 11:11 | Gastrointestinal Consultation ---
Date of Consultation September 30, 2020 Assessment & Plan (1) Hematemesis: Vomiting a small amt of blood, then slight drop in Hb and slight increase in BUN is suggestive of an UGI bleed. She also has significant epigastric pain. Ulcer disease and esophagitis/gastritis needs to be ruled out. Will go forward with EGD this afternoon. Present on Admission?: No Supervising Physician Co-Signing Physician Notes I performed a history and physical examination of the patient today, including specifically on physical exam - soft abdomen. I have discussed the patient's management with the advanced practitioner. Please refer to the nurse practitioner's note for the documented findings and plan of care. EGD today in view of Hematemesis and abdominal pain. IV PPI. Patient was explained in detail regarding risks, benefits, limitations and alternatives of the above endoscopic procedure. Risks of intravenous sedation used for procedure were also explained. Risks include, but not limited to perforation, bleeding, infection, respiratory distress, cardiac arrest and . Patient is also aware about the possibility of missed lesion. Patient's questions were answered. The patient verbalized understanding the information and agreed to undergo the procedure. History of Present Illness Reason for Consultation: Upper GI Bleed Requesting Physician: Dr. Wahl Attending Physician: Obdulio Grossman History of Present Illness Ms. Josefa Ramírez is an 84-year-old female patient of Dr. Ni Nieto with a history of COPD, HTN, Hyperlipidemia, psoriasis, GERD/Contreras's who underwent left reverse total shoulder arthroplasty yesterday by Dr. Grossman. This morning, she felt nauseated and vomited up about 1/8 cup of dark red blood. Since the time of the emesis, she has had a lot of epigastric burning. She carries a history of reflux and is maintained on a daily PPI. She takes an 81 mg aspirin dailyat home (325mg daily since admission) and reports using naproxen occasionally, once in the past week. She is maintained on omeprazole 20 mg daily. She is seen and examined while she is resting in bed on the orthopedic floor. She is awake alert oriented and hemodynamically stable. She reports that her most recent bowel movement was about 2 days ago and that she feels a little bit constipated. Hemoglobin this morning around the time of the emesis was 12.6. Recheck at 10:30 was 12.3. BUN this morning was 25 ->29 at 10:30AM. Most recent EGD [place] [address] Doran with findings ofappearance of Contreras's esophagus but normal pathology, and hiatal hernia. Most recent colonoscopy was July [address] Elise with findings of two diminutive polyps. Allergies Allergy/AdvReac Type Severity Reaction Status Date / Time imipenem Allergy Severe Dyspnea Verified 09/30/20 13:24 meropenem Allergy Severe Dyspnea Verified 09/30/20 13:24 penicillamine Allergy Severe Dyspnea Verified 09/30/20 13:24 ranitidine Allergy Severe Dyspnea Verified 09/30/20 13:24 ampicillin Allergy Intermediate Dyspnea, Verified 09/30/20 13:24 hives azithromycin Allergy Intermediate Hives, Verified 09/30/20 13:24 angioedema Cephalosporins Allergy Intermediate Hives Verified 09/30/20 13:24 cilastatin Allergy Intermediate Dyspnea Verified 09/30/20 13:24 Macrolide Antibiotics Allergy Intermediate Hives, Verified 09/30/20 13:24 angioedema Penicillins Allergy Intermediate Hives Verified 09/30/20 13:24 adhesive Allergy Mild Rash Verified 09/30/20 13:24 Carbapenems Allergy Unknown Dyspnea Verified 09/30/20 13:24 Home Medications Medication Instructions Recorded Confirmed Type aspirin [Aspirin Low Dose] 81 mg PO QAM 12/14/18 09/29/20 History cyanocobalamin (vitamin B-12) 1,000 mcg PO PM 12/14/18 09/29/20 History [Vitamin B-12] fluticasone propionate 2 spray INTRANASAL QAM PRN 12/14/18 09/29/20 History lisinopril 40 mg PO QAM 12/14/18 09/29/20 History multivitamin 1 tab PO QAM 12/14/18 09/29/20 History omeprazole 20 mg PO QAM 12/14/18 09/29/20 History rosuvastatin [Crestor] 20 mg PO QAM 11/12/19 09/29/20 History cholecalciferol (vitamin D3) 25 mcg PO QAM 05/05/20 09/29/20 History [Vitamin D3] Patient History Medical History Acid reflux controlled Carotid stenosis 50-69% right sided stenosis per 09/2018 doppler report but personal review of imaging by vascular felt that carotid artery stenosis <50% b/l - advised by vascular to f/u PRN Chronic constipation CKD (chronic kidney disease), stage III COPD (chronic obstructive pulmonary disease) Per records- patient denies History of left shoulder fracture 07/2019 - medically managed until this upcoming surgery Hx of cancer of uterus s/p hysterectomy with USO Hyperlipidemia Hypertension Post-traumatic osteoarthritis, left shoulder Tobacco use disorder Surgical History Fusion of spine Left SI joint fusion: 06/14/2020: Grade 2 view, MAC 3.0, ETT 7.0 at [facility] H/O hemorrhoidectomy H/O: hysterectomy + USO History of appendectomy History of cataract surgery R/L History of cholecystectomy History of colonoscopy History of lumbar fusion History of surgery "Windpipe growth" removal History of tonsillectomy Hx of fusion of cervical spine Hx of surgical procedure Right SI joint fusion Hx of tooth extraction Family History Other Heart disease Social History Smoking Status: Current every day smoker Cigarettes Per Day: 10-20 cigs/day x 30 years; Second Hand Exposure: No; Do You Dip or Chew Tobacco: No; Tobacco Cessation Education Requested by Patient: No Hx Alcohol Use: No Hx Substance Use: No Preferred Language: Belgian Communication Ability: Effective Flight Agent Required: No Beliefs That Will Affect Care: None marital status: Current Living Situation: Spouse Feels Safe at Home: Yes Safety Concerns: Feels Safe At This Time Assistive Devices: Denture - Upper and Denture - Lower Assistive Devices Comment: READING GLASSES Review of Systems Review of Systems: ROS: Gen: Denies weakness, fevers, weight loss Eyes: No eye redness, or pain, no recent vision changes Resp: No SOB, no cough Cardio: No palpitations/irregular beats, no chest pain GI: See HPI, otherwise negative : Denies pain on urination Skin: No jaundice, itching or new rashes M/S: shoulder pain post surgery Physical Exam 2 Constitutional: WD/WN, vitals as above + overweight Uncomfortable appearing Eyes: PERRL, conjunctivae normal, anicteric sclerae ENMT: external ear and nose normal, oropharynx normal Neck: trachea midline, no thyromegaly Respiratory: normal respiratory effort, lungs clear to auscultation Cardiovascular: RRR, no murmur, no edema Gastrointestinal (Abdomen): Inspection/Auscultation: + hypoactive bowel sounds (Is n.p.o.); abdomen not distended Percussion/Palpation: + abdomen tender (Epigastric) and abdomen soft Skin: no rashes, warm and dry Dressing over left shoulder Neurologic: PERRL, EOMI, accommodation nl, no face palsy, no dysarthria Psychiatric: A+Ox3, euthymic affect Lymphatic: no cervical or axillary lymphadenopathy Results & Data ([facility]) Vital Signs (Past 12 Hours) Vital Signs Temp Pulse Resp BP Pulse Ox 09/30/20 11:04 36.7 C 77 18 166/78 H 92 09/30/20 07:14 36.4 C L 89 16 151/76 H 90 09/30/20 03:50 92 09/30/20 03:45 36.8 C 86 16 156/67 H 96 09/29/20 23:13 36.3 C L 72 16 146/78 H 97 Laboratory Results WBC 7.9, Hb 12.3, Hct, Plts 187, Na 139, K4.3, Cl 110, BUN 25, Cr 0.[address] Findings CT with IV contrast only 09/30/20: 1. Elevation left hemidiaphragm with lingular and left lower lobe airspace opacities with air bronchograms. Pneumonia versus atelectasis. Clinical and radiographic follow-up are recommended 2. No evidence of bowel obstruction. No evidence of free air. No evidence of acute appendicitis. No evidence of acute diverticulitis 3. Left upper pole renal scarring. 24 mm left upper pole hypodense lesion which exceeds water attenuation and is therefore indeterminate. There are associated calcifications, which may in part be parenchymal. Ultrasound follow-up recomme nded to help determine whether this is a cystic or solid lesion.
--- NOTE | 2020-09-30 11:53 | Electrocardiogram Report ---
Test Reason : Blood Pressure : / mmHG Vent. Rate : 074 BPM Atrial Rate : 074 BPM P-R Int : 142 ms QRS Dur : 084 ms QT Int : 384 ms P-R-T Axes : 018 -15 014 degrees QTc Int : 426 ms Normal sinus rhythm Normal ECG When compared with ECG of 09-NOV-2019 13:22, No significant change was found Confirmed by Jatin Chino ([id number]) on 09/30/2020 11:52:52 AM Referred By: Obdulio Grossman Confirmed By:Jatin Chino
[2020-09-30] MEDS ORDERED: PROPOFOL IV EMULSION 10 MG/ML 20 ML VIAL IV ONE ×2 (13:11→14:01)
[2020-09-30] MEDS ORDERED: LIDOCAINE HCL 2% 2 ML VIAL/AMP(20MG/ML) INFIL ONE (13:11)
--- NOTE | 2020-09-30 13:40 | Anesthesiology Consultation ---
Date of Service September 30, 2020 Assessment & Plan Chart Review Chart Review: Acceptable Risk for Surgery Consults Requested none ASA ASA3 Proposed Anesthesia Anesthesia Type: MAC Risk / Benefits Reviewed With: PT / POA / Parent / Guardian, Accepts Plan and Informed Consent Obtained History Surgery Operation Date: 09/29/20 11:05 Proposed Procedures p Left Reverse Total Shoulder Arthroplasty - Obdulio Grossman M.D. Operation Date: 09/30/20 17:00 Proposed Procedures p Esophagogastroduodenoscopy Dr Edwards - Santi Edwards MD Height/Weight Height: 5 ft 4 in Weight: 75.3 kg Allergies Allergy/AdvReac Type Severity Reaction Status Date / Time imipenem Allergy Severe Dyspnea Verified 09/30/20 13:24 meropenem Allergy Severe Dyspnea Verified 09/30/20 13:24 penicillamine Allergy Severe Dyspnea Verified 09/30/20 13:24 ranitidine Allergy Severe Dyspnea Verified 09/30/20 13:24 ampicillin Allergy Intermediate Dyspnea, Verified 09/30/20 13:24 hives azithromycin Allergy Intermediate Hives, Verified 09/30/20 13:24 angioedema Cephalosporins Allergy Intermediate Hives Verified 09/30/20 13:24 cilastatin Allergy Intermediate Dyspnea Verified 09/30/20 13:24 Macrolide Antibiotics Allergy Intermediate Hives, Verified 09/30/20 13:24 angioedema Penicillins Allergy Intermediate Hives Verified 09/30/20 13:24 adhesive Allergy Mild Rash Verified 09/30/20 13:24 Carbapenems Allergy Unknown Dyspnea Verified 09/30/20 13:24 Medications Home Medications Medication Instructions Recorded Confirmed Last Taken aspirin [Aspirin Low Dose] 81 mg PO QAM 12/14/18 09/29/20 09/28/20 08:30 cyanocobalamin (vitamin B-12) 1,000 mcg PO PM 12/14/18 09/29/20 09/28/20 08:30 [Vitamin B-12] fluticasone propionate 2 spray INTRANASAL QAM PRN 12/14/18 09/29/20 09/28/20 08:30 lisinopril 40 mg PO QAM 12/14/18 09/29/20 09/28/20 08:30 multivitamin 1 tab PO QAM 12/14/18 09/29/20 06/19/20 omeprazole 20 mg PO QAM 12/14/18 09/29/20 09/28/20 08:30 rosuvastatin [Crestor] 20 mg PO QAM 11/12/19 09/29/20 09/28/20 08:30 cholecalciferol (vitamin D3) 25 mcg PO QAM 05/05/20 09/29/20 09/28/20 08:30 [Vitamin D3] Active Medications Generic Name Dose Route Start Last Admin Trade Name Freq PRN Reason Stop Dose Admin Acetaminophen 500 mg 09/29/20 16:00 09/30/20 09:54 Acetaminophen 500 Mg Tab PO 10/29/20 15:59 500 mg Q6H HUNTER Administration Cyanocobalamin 1,000 mcg 09/29/20 21:00 09/29/20 20:44 Cyanocobalamin 500 Mcg Tablet (Vitamin B-12) PO 10/29/20 20:59 1,000 mcg PM HUNTER Administration Docusate Sodium 100 mg 09/29/20 21:00 09/30/20 07:18 Docusate Sodium 100 Mg Cap PO 10/29/20 20:59 100 mg BID HUNTER Administration Pantoprazole Sodium 40 mg/ 100 mls @ 20 mls/hr 09/30/20 06:45 09/30/20 12:30 Dextrose IV 10/30/20 06:44 8 mg/hr Q5H HUNTER 20 mls/hr Administration 8 MG/HR Sodium Chloride 1,000 mls @ 50 mls/hr 09/30/20 06:30 09/30/20 06:55 Nss 1000ml IV 10/30/20 06:29 50 mls/hr .Q20H HUNTER Administration Ibuprofen 600 mg 09/29/20 18:00 09/30/20 05:34 Ibuprofen 600 Mg Tab PO 10/29/20 17:59 600 mg Q6 HUNTER Administration Lisinopril 40 mg 09/30/20 09:00 09/30/20 09:53 Lisinopril 40 Mg Tab PO 10/30/20 08:59 40 mg QAM HUNTER Administration Metoclopramide HCl 10 mg 09/29/20 15:49 09/30/20 04:20 Metoclopramide Hcl Inj 5 Mg/Ml 2 Ml Vial IV 10/29/20 15:48 10 mg Q6H PRN Administration Nausea And Vomiting Multivitamins 1 tab 09/30/20 09:00 09/30/20 07:19 Multivitamin Tab PO 10/30/20 08:59 1 tab QAM HUNTER Administration Ondansetron HCl 4 mg 09/29/20 15:49 09/30/20 03:46 Ondansetron Inj 2 Mg/Ml 2 Ml Vial IV 10/29/20 15:48 4 mg Q6H PRN Administration Nausea And Vomiting Rosuvastatin Calcium 20 mg 09/30/20 09:00 09/30/20 07:19 Rosuvastatin Calcium 20 Mg Tab PO 10/30/20 08:59 20 mg QAM HUNTER Administration Sennosides 17.2 mg 09/29/20 21:00 09/29/20 20:43 Senna 8.6 Mg Tab PO 10/29/20 20:59 17.2 mg HS HUNTER Administration Vitamin D 1,000 units 09/30/20 09:00 09/30/20 07:18 Cholecalciferol 1,000 Units 25 Mcg Tab PO 10/30/20 08:59 1,000 units QAM HUNTER Administration NPO Date Last Intake of Fluids: 09/30/20 Time Last Intake of Fluids: 12:50 Last Intake of Fluids Comment: sip of water Date Last Intake of Solids: 09/28/20 Time Last Intake of Solids: 16:30 Past Medical History Medical History Acid reflux controlled Carotid stenosis 50-69% right sided stenosis per 09/2018 doppler report but personal review of imaging by vascular felt that carotid artery stenosis <50% b/l - advised by vascular to f/u PRN Chronic constipation CKD (chronic kidney disease), stage III COPD (chronic obstructive pulmonary disease) Per records- patient denies History of left shoulder fracture 07/2019 - medically managed until this upcoming surgery Hx of cancer of uterus s/p hysterectomy with USO Hyperlipidemia Hypertension Post-traumatic osteoarthritis, left shoulder Tobacco use disorder Exercise / Class Metabolic Activity II 4-5 Yardwork/Stairs/Walk up hill Past Family History Family History Other Heart disease Past Surgical History Surgical History Fusion of spine Left SI joint fusion: 06/14/2020: Grade 2 view, MAC 3.0, ETT 7.0 at [facility] H/O hemorrhoidectomy H/O: hysterectomy + USO History of appendectomy History of cataract surgery R/L History of cholecystectomy History of colonoscopy History of lumbar fusion History of surgery "Windpipe growth" removal History of tonsillectomy Hx of fusion of cervical spine Hx of surgical procedure Right SI joint fusion Hx of tooth extraction Past Anesthesia History No Hx of Anesthesia Complications and No Family Hx of Anesthesia Complications Patient- POD 1 or 2 after Left SI joint fusion at [facility] (06/14/20) patient had episode of weakness and emesis (?hematemesis). No recurrence. PCP suspected vagal reaction to the anesthesia/issue related to third spacing. Patient states she was told that this might have been related to chronic constipation. No further issues and f/u blood work unremarkable. No similar issues with other surgeries/anesthesia. Patient states she was told to make sure she was not significantly constipated prior to future surgeries (patient plans to do bowel regimen with upcoming surgery). Daughter- dyspnea with anesthesia emergence. History of PONV No Hx of PONV and No Hx of Motion Sickness Social History Smoking Status: Current every day smoker tobacco type: cigarettes Smoking cigarettes per day: 10-20 cigs/day x 30 years Do You Dip or Chew Tobacco: No Hx Alcohol Use: No Hx Substance Use: No substance use type: does not use Physical Exam Vital Signs Last Vital Signs Temp 36.6 C 09/30/20 13:28 Pulse 82 09/30/20 13:28 Resp 18 09/30/20 13:28 BP 171/75 H 09/30/20 13:28 Pulse Ox 91 09/30/20 13:28 ENMT Mouth: + dentures and + edentulous; no TMJ abnormality Thyromental Distance: > or= 3.5 Finger Breadths Mallampati Class: II Neck normal visual inspection and trachea midline; neck extension not limited Respiratory normal respiratory effort Auscultation: lungs clear to auscultation bilaterally Cardiovascular Rate/Rhythm: regular rate and regular rhythm Heart Sounds: + murmur (2nd ICS 2/6SEM) Musculoskeletal Spine: normal cervical ROM Extremities: full ROM of extremities Neurologic moves all extremities Psychiatric Orientation: alert and oriented x 3 Testing Laboratory Results 09/30/20 10:20 09/30/20 10:20 PT 10.2 Seconds (9.0-12.0) 09/02/20 11:40 INR 1.0 (0.9-1.1) 09/02/20 11:40 APTT 25.8 Seconds (21.0-31.0) 09/02/20 11:40 Hemoglobin A1c 5.3 % (4.5-5.6) 09/02/20 11:40 Urine Color Yellow 09/02/20 Unknown Urine Appearance Clear (Clear) 09/02/20 Unknown Urine pH 5.5 (4.5-7.5) 09/02/20 Unknown Ur Specific [place] 1.014 (1.000-1.030) 09/02/20 Unknown Urine Protein Negative (Negative) 09/02/20 Unknown Urine Glucose (UA) Negative (Negative) 09/02/20 Unknown Urine Ketones Negative (Negative) 09/02/20 Unknown Urine Nitrite Negative (Negative) 09/02/20 Unknown Ur Leukocyte Esterase Negative (Negative) 09/02/20 Unknown Blood Type O Positive 09/02/20 11:40 Antibody Screen NEGATIVE 09/02/20 11:40 Electrocardiogram Date: 11/09/19 Findings: + NSR @ (68bpm) Left axis deviation. Poor R wave progression, consider anterior [place] versus lead placement versus LVH. Compared EKG of 07/04/2016, no significant change was found per tool crib clerk review. Chest X-Ray Date: 11/09/19 Findings: + NAD Other Testing Carotid artery duplex: 10/10/2018: Right carotid artery duplex examination indicates evidence of 50-69% stenosis of the internal carotid artery. Left carotid artery duplex examination indicates evidence of a normal duplex evaluation of the internal carotid artery. B/L vertebral antegrade flow.
[2020-09-30] MEDS ORDERED: ESMOLOL HCL INJ 10 MG/ML 10ML VIAL IV ONE (14:17)
--- NOTE | 2020-09-30 14:28 | GI REPORT ---
Patient Name: Josefa Ramírez Procedure Date: 09/30/2020 1:48 PM Date of : 1935 Admit Type: Inpatient Age: 84 Gender: Female Attending MD: Santi Edwards MD Procedure: Upper GI endoscopy Providers: Santi Edwards MD Referring MD: Obdulio Grossman M.d. Indications: Hematemesis Medicines: Propofol per Anesthesia Complications: No immediate complications. Estimated Blood Loss: Estimated blood loss: none. Procedure: Pre-Anesthesia Assessment: - Prior to the procedure, a History and Physical was performed, and patient medications, allergies and sensitivities were reviewed. The patient's tolerance of previous anesthesia was reviewed. - The risks and benefits of the procedure and the sedation options and risks were discussed with the patient. All questions were answered and informed consent was obtained. - Patient identification and proposed procedure were verified prior to the procedure by the physician and the nurse. The procedure was verified in the procedure room. - Pre-procedure physical examination revealed no contraindications to sedation. After obtaining informed consent, the endoscope was passed under direct vision. Throughout the procedure, the patient's blood pressure, pulse, and oxygen saturations were monitored continuously. The Endoscope was introduced through the mouth, and advanced to the second part of duodenum. The upper GI endoscopy was accomplished without difficulty. The patient tolerated the procedure well. Findings: Esophagitis with diffuse mucosal bleed oozing was found in the lower third of the esophagus. Vaporization for hemostasis using argon plasma was successful. Area was successfully injected with 4 mL of a 1:10,000 solution of epinephrine for hemostasis. Hematin (altered blood/mxhgzh-yiyrbg-qjcq material) was found in the gastric body. The duodenal bulb and second portion of the duodenum were normal. Impression: - Bleeding esophagitis with underlying Contreras's esophagus. Treated with argon plasma coagulation (APC). Injected with Epi. - Hematin (altered blood/xkixoc-dwalkz-htfz material) in the gastric body. - Normal duodenal bulb and second portion of the duodenum. - No specimens collected. Recommendation: - Return patient to [facility] for ongoing care. - Clear liquid diet for 2 days. - IV PPI drip for 2 days then PO BID for 3 months. - No aspirin, ibuprofen, naproxen, or other non-steroidal anti-inflammatory drugs for at least 3 days. - Repeat upper endoscopy in 6 weeks to check healing and obtain biopsies. - Monitor H/H. - Recall GI as needed. Santi Edwards MD 09/30/2020 2:28:36 PM This report has been signed electronically. Note Initiated On: 09/30/2020 1:48 PM Number of Addenda: 0 I attest to the content of the Intraoperative Record and orders documented therein, exceptions below {[id number]}
--- NOTE | 2020-09-30 14:28 | Anesthesiology Progress Note ---
Date of Service September 30, 2020 Anesthesia Post Procedure Vital Signs Vital Signs: Temp Pulse Pulse Resp BP Pulse Ox 09/30/20 14:24 36.8 C 88 18 180/84 H 97 09/30/20 13:28 36.6 C 82 18 171/75 H 91 09/30/20 11:04 36.7 C 77 18 166/78 H 92 09/30/20 07:14 36.4 C L 89 16 151/76 H 90 09/30/20 03:50 92 09/30/20 03:45 36.8 C 86 16 156/67 H 96 09/29/20 23:13 36.3 C L 72 16 146/78 H 97 09/29/20 19:26 36.4 C L 76 18 121/70 96 09/29/20 18:00 36.3 C L 71 18 107/62 95 09/29/20 17:00 36.3 C L 69 18 101/67 97 09/29/20 16:28 69 18 106/70 96 09/29/20 16:01 76 18 125/74 96 09/29/20 15:30 36.2 C L 72 18 110/67 97 09/29/20 15:21 83 16 115/61 94 09/29/20 15:10 36.3 C L 83 16 124/65 94 09/29/20 15:00 77 14 116/65 95 09/29/20 14:50 81 14 99/63 L 94 09/29/20 14:40 85 18 110/70 95 09/29/20 14:30 36.4 C L 71 16 116/71 97 Pain Intensity Abdomen: Pain Intensity: 10 Transfer of Care Handoff Completed per policy Notes Mental Status: alert / awake / arousable Patient Amnestic to Procedure: Yes Nausea / Vomiting: adequately controlled Pain: adequately controlled Airway Patency, RR, SpO2: stable & adequate BP & HR: stable & adequate Hydration State: stable & adequate Anesthetic Complications: no major complications apparent and Pt Satisfied with anesthetic care
[2020-09-30 18:19] LABS: Hematocrit (blood only) 35.8 % (37-47); Hemoglobin 11.7 g/dL (12.0-16.0)
[2020-09-30] MEDS: SENNA 8.6 MG TAB PO SCH (21:43)
[2020-09-30] MEDS: CYANOCOBALAMIN 500 MCG TABLET (VITAMIN B-12) PO SCH (21:44)
[2020-10-01] MEDS: PANTOprazole 40 MG in DEXTROSE 5% 100 ML IV SCH ×5 (03:29→22:53)
[2020-10-01] MEDS: ACETAMINOPHEN 500 MG TAB PO SCH ×4 (03:31→21:14)
[2020-10-01 06:04] LABS: Hematocrit (blood only) 33.5 % (37-47); Hemoglobin 11.1 g/dL (12.0-16.0); Mean Corpuscular Hemoglobin 28.9 pg (25-34); Mean Corpuscular Hgb Conc 33.1 g/dL (32-36); Mean Corpuscular Volume 87.2 fL (80-100); Mean Platelet Volume 9.8 fL (7.4-10.4); Platelet Count 177 K/uL (130-400); RDW Coefficient of Variation 14.9 % (11.5-14.5); RDW Standard Deviation 47.8 fL (36.4-46.3); Red Blood Count 3.84 M/uL (4.2-5.4); White Blood Count 7.56 K/uL (4.8-10.8)
[2020-10-01 06:41] LABS: BUN Creatinine Ratio 27.3 (10-20); Creatinine Clr Calc Pharmacy 56.5 ml/min; Est GFR (African American) 85.4; Est GFR (Non-African American) 73.7; Potassium 3.9 mmol/L (3.5-5.1)
[2020-10-01] MEDS: lisinopril 40 MG TAB PO SCH (07:47)
[2020-10-01] MEDS: DOCUSATE SODIUM 100 MG CAP PO SCH ×2 (07:47→20:36)
[2020-10-01] MEDS: ROSUVASTATIN CALCIUM 20 MG TAB PO SCH (07:47)
[2020-10-01] MEDS: MULTIVITAMIN TAB PO SCH (07:47)
[2020-10-01] MEDS: CHOLECALCIFEROL 1,000 UNITS 25 MCG TAB PO SCH (07:48)
--- NOTE | 2020-10-01 09:34 | Orthopedic Progress Note ---
Date of Service October 01, 2020 Assessment & Plan (1) Post-traumatic osteoarthritis, left shoulder: Postoperative day #2 status post left reverse total shoulder arthroplasty for severe posttraumatic arthritis. -Ancef x24 hours. Then discontinue. Of note, patient's chart has cephalosporin allergy listed, but patient states that this is inaccurate. She states that she has never had hives in her life, and she does not recall ever being given cephalosporins. She tolerated Ancef intraoperatively without any difficulty. -Coffee-ground emesis yesterday. EGD performed yesterday showing esophagitis with mild bleeding. Please see GI consultation/operative summary. Planning for 2 days of liquid diet and IV Protonix. No aspirin or NSAIDs at this time. Continue oxycodone for pain management -DVT prophylaxis: SCDs and LENIN bee. -Reviewed activity restrictions: No resisted elbow flexion, no resisted forearm supination. PT/OT protocols. Admission and Anticipated Discharge Date Admission Date: September 29, 2020 Supervising Physician Co-Signing Physician Notes Patient seen and examined agree with above assessment and plan. Subjective Postop day 2 Patient lying in bed awake and alert. No complaints this morning. Pain is controlled in her left shoulder. She states that eating still bothers her a little bit but otherwise she has no new complaints. EGD that was performed yesterday showing esophagitis with some bleeding. Hemoglobin is currently stable. Patient currently denies shortness of breath, chest pain, lightheadedness. Physical Exam Physical Exam: Silverlon dressing is clean, dry, and intact. Sling is in place. Neurovascular is intact. She is good range of motion of her fingers and wrist ;sensation is intact. Results & Data ([facility]) Vital Signs (Past 12 Hours) Vital Signs Temp Pulse Resp BP Pulse Ox 10/01/20 07:03 36.9 C 91 H 16 118/72 92 10/01/20 04:12 36.8 C 100 H 16 119/70 92 09/30/20 21:45 37.3 C 94 H 16 148/83 H 92 Laboratory Results Laboratory Results WBC 7.56 K/uL (4.8-10.8) 10/01/20 05:24 RBC 3.84 M/uL (4.2-5.4) L 10/01/20 05:24 Hgb 11.1 g/dL (12.0-16.0) L 10/01/20 05:24 Hct 33.5 % (37-47) L 10/01/20 05:24 MCV 87.2 fL (80-100) 10/01/20 05:24 MCH 28.9 pg (25-34) 10/01/20 05:24 MCHC 33.1 g/dL (32-36) 10/01/20 05:24 RDW Std Deviation 47.8 fL (36.4-46.3) H 10/01/20 05:24 RDW Coeff of Devi 14.9 % (11.5-14.5) H 10/01/20 05:24 Plt Count 177 K/uL (130-400) 10/01/20 05:24 MPV 9.8 fL (7.4-10.4) 10/01/20 05:24 Immature Gran % (Auto) 0.0 % 09/30/20 05:18 Neut % (Auto) 82.5 % 09/30/20 05:18 Lymph % (Auto) 10.4 % 09/30/20 05:18 [place] % (Auto) 6.9 % 09/30/20 05:18 Eos % (Auto) 0.1 % 09/30/20 05:18 Baso % (Auto) 0.1 % 09/30/20 05:18 Neut # (Auto) 7.47 K/uL (1.4-6.5) H 09/30/20 05:18 Lymph # (Auto) 0.94 K/uL (1.2-3.4) L 09/30/20 05:18 [place] # (Auto) 0.62 K/uL (0.11-0.59) H 09/30/20 05:18 Eos # (Auto) 0.01 K/uL (0-0.5) 09/30/20 05:18 Baso # (Auto) 0.01 K/uL (0-0.2) 09/30/20 05:18 Immature Gran # (Auto) 0.00 K/uL (0.00-0.02) 09/30/20 05:18 PT 10.2 Seconds (9.0-12.0) 09/02/20 11:40 INR 1.0 (0.9-1.1) 09/02/20 11:40 APTT 25.8 Seconds (21.0-31.0) 09/02/20 11:40 PTT Ratio 1.0 09/02/20 11:40 Sodium 142 mmol/L (136-145) 10/01/20 05:24 Potassium 3.9 mmol/L (3.5-5.1) 10/01/20 05:24 Chloride 111 mmol/L (98-107) H 10/01/20 05:24 Carbon Dioxide 27 mmol/L (21-32) 10/01/20 05:24 Anion Gap 4.0 (3-11) 10/01/20 05:24 BUN 21 mg/dl (7-18) H 10/01/20 05:24 Creatinine 0.75 mg/dl (0.6-1.2) 10/01/20 05:24 Est Cr Clr Drug Dosing 56.5 ml/min 10/01/20 05:24 Est GFR ( Amer) 85.4 10/01/20 05:24 Est GFR (Non-Af Amer) 73.7 10/01/20 05:24 BUN/Creatinine Ratio 27.3 (10-20) H 10/01/20 05:24 Glucose 101 mg/dl (70-99) H 10/01/20 05:24 Estimat Average Glucose 105 mg/dl 09/02/20 11:40 Hemoglobin A1c 5.3 % (4.5-5.6) 09/02/20 11:40 Calcium 9.0 mg/dl (8.5-10.1) 10/01/20 05:24 Total Bilirubin 0.5 mg/dl (0.2-1) 09/30/20 05:18 Direct Bilirubin 0.2 mg/dl (0-0.2) 09/30/20 05:18 AST 20 U/L (15-37) 09/30/20 05:18 ALT 19 U/L (12-78) 09/30/20 05:18 Alkaline Phosphatase 64 U/L (45-117) 09/30/20 05:18 Troponin I < 0.015 ng/ml (0-0.045) 09/30/20 10:20 Total Protein 5.8 gm/dl (6.4-8.2) L 09/30/20 05:18 Albumin 3.0 gm/dl (3.4-5.0) L 09/30/20 05:18 Lipase 36 U/L (73-393) L 09/30/20 05:18 Urine Color Yellow 09/02/20 Unknown Urine Appearance Clear (Clear) 09/02/20 Unknown Urine pH 5.5 (4.5-7.5) 09/02/20 Unknown Ur Specific [place] 1.014 (1.000-1.030) 09/02/20 Unknown Urine Protein Negative (Negative) 09/02/20 Unknown Urine Glucose (UA) Negative (Negative) 09/02/20 Unknown Urine Ketones Negative (Negative) 09/02/20 Unknown Urine Blood Negative (Negative) 09/02/20 Unknown Urine Nitrite Negative (Negative) 09/02/20 Unknown Urine Bilirubin Negative (Negative) 09/02/20 Unknown Urine Urobilinogen Negative (Negative) 09/02/20 Unknown Ur Leukocyte Esterase Negative (Negative) 09/02/20 Unknown COVID-19 Eval Order Covid19 [facility] 09/29/20 09:02 SARS-CoV-2 RNA (JOHNATHAN) Negative (Negative) 09/02/20 11:42 SARS-CoV-2, RNA, NAAT NEGATIVE (NEGATIVE) 09/29/20 09:02 Blood Type O Positive 09/02/20 11:40 Antibody Screen NEGATIVE 09/02/20 11:40
--- NOTE | 2020-10-01 18:03 | Hospitalist Progress Note ---
Date of Service October 01, 2020 Assessment & Plan (1) Status post total shoulder arthroplasty: Patient is an 84 yr female with H/O HTN, HLD, COPD, CKD III, tobacco use disorder and other medical problems was consulted for postop medical management Posttraumatic osteoarthritis, left shoulder S/P left reverse total shoulder arthroplasty by Dr. Grossman. POD#2 Avoid NSAIDs for pain control Continue bowel regimen to prevent constipation Wound care, activity as per orthopedics (2) Hematemesis: Hematemesis Esophagitis History of Contreras's esophagus -S/P EGD:Bleeding esophagitis with underlying Contreras's esophagus. Treated with argon plasma coagulation (APC). Injected with Epi. Hematin (altered blood/aakuhi-xhxzwp-lnol material) in the gastric body. Normal duodenal bulb and second portion of the duodenum. No specimens collected. -Continue IV Protonix drip for 2 days -Plan to transition to p.o. Protonix 40 mg twice a day for 3 months -Avoid NSAIDs, aspirin for at least 3 days -Needs repeat endoscopy in 6 weeks -Appreciate GI input Monitor CBC -Clear liquid diet today (3) Hyperlipidemia: Continue statin (4) CKD (chronic kidney disease), stage III: Kindey function at baseline (Cr~1). Monitor daily BMP (5) COPD (chronic obstructive pulmonary disease): Per records. (6) Acid reflux: Continue PPI (7) Abnormal finding on CT scan: Left renal lesion Incidental finding on CT abdomen -CT ABD:Left upper pole renal scarring. 24 mm left upper pole hypodense lesion which exceeds water attenuation and is therefore indeterminate. There are associated calcifications, which may in part be parenchymal. Ultrasound follow- up recommended to help determine whether this is a cystic or solid lesion. -Further work-up as outpatient (8) Tobacco use disorder: Offered nicotine patch and declined PCP: Sonal Dispo: Per primary service Admission and Anticipated Discharge Date Admission Date: September 29, 2020 Subjective Patient is seen and examined at bedside Denies any pain at surgical site Reports having minimal discomfort with swallowing Denies any recurrence of blood in stool Also denies chest pain, dyspnea, dizziness, nausea, abdominal pain Review of Systems Review of Systems: All systems reviewed & are unremarkable except as noted in HPI & below Physical Exam Physical Exam: Physical Exam: Vitals signs as noted above General Appearance:Moderately built and nourished, no apparent distress Head: normocephalic, Atraumatic Eyes: normal inspection, EOMI Neck: supple, Trachea midline Respiratory/Chest: Normal breath sounds, CTA, No accessory muscle use Cardiovascular: S1, S2, No murmur Abdomen/GI:Soft, Non tender, Bowel sounds present Extremities/Musculoskeletal:normal inspection, no edema, LUE in sling Neurologic/Psych:AAOX3, grossly no focal neurological deficits Skin: normal color, warm Results & Data Results & Data ([facility]) Vital Signs (Past 12 Hours) Vital Signs Temp Pulse Resp BP Pulse Ox 10/01/20 14:47 36.9 C 87 15 118/72 92 10/01/20 11:41 36.7 C 89 16 94/58 L 92 10/01/20 07:03 36.9 C 91 H 16 118/72 92 Laboratory Results Short CBC 09/30/20 10/01/20 Range/Units 18:07 05:24 WBC 7.56 (4.8-10.8) K/uL Hgb 11.7 L 11.1 L (12.0-16.0) g/dL Hct 35.8 L 33.5 L (37-47) % Plt Count 177 (130-400) K/uL BMP 10/01/20 05:24 Sodium 142 Potassium 3.9 Chloride 111 H Carbon Dioxide 27 BUN 21 H Creatinine 0.75 Glucose 101 H Calcium 9.0
[2020-10-01] MEDS: CYANOCOBALAMIN 500 MCG TABLET (VITAMIN B-12) PO SCH (20:35)
[2020-10-01] MEDS: SENNA 8.6 MG TAB PO SCH (20:36)
[2020-10-02] MEDS: ACETAMINOPHEN 500 MG TAB PO SCH ×4 (03:28→21:55)
[2020-10-02] MEDS: PANTOprazole 40 MG in DEXTROSE 5% 100 ML IV SCH ×4 (03:28→18:41)
[2020-10-02 06:22] LABS: Hematocrit (blood only) 31.1 % (37-47); Hemoglobin 10.3 g/dL (12.0-16.0); Mean Corpuscular Hemoglobin 29.5 pg (25-34); Mean Corpuscular Hgb Conc 33.1 g/dL (32-36); Mean Corpuscular Volume 89.1 fL (80-100); Mean Platelet Volume 9.6 fL (7.4-10.4); Platelet Count 178 K/uL (130-400); RDW Coefficient of Variation 14.8 % (11.5-14.5); RDW Standard Deviation 48.2 fL (36.4-46.3); Red Blood Count 3.49 M/uL (4.2-5.4); White Blood Count 4.75 K/uL (4.8-10.8)
[2020-10-02 06:49] LABS: BUN Creatinine Ratio 20.4 (10-20); Calcium 8.9 mg/dl (8.5-10.1); Creatinine Clr Calc Pharmacy 58.8 ml/min; Est GFR (African American) 89.8; Est GFR (Non-African American) 77.4; Potassium 3.6 mmol/L (3.5-5.1)
[2020-10-02] MEDS: CHOLECALCIFEROL 1,000 UNITS 25 MCG TAB PO SCH (07:41)
[2020-10-02] MEDS: MULTIVITAMIN TAB PO SCH (07:41)
[2020-10-02] MEDS: DOCUSATE SODIUM 100 MG CAP PO SCH ×2 (07:41→19:59)
[2020-10-02] MEDS: lisinopril 40 MG TAB PO SCH (07:41)
[2020-10-02] MEDS: ROSUVASTATIN CALCIUM 20 MG TAB PO SCH (07:41)
--- NOTE | 2020-10-02 09:54 | Orthopedic Progress Note ---
Date of Service October 02, 2020 Assessment & Plan (1) Post-traumatic osteoarthritis, left shoulder: Postoperative day #3 status post left reverse total shoulder arthroplasty for severe posttraumatic arthritis. -Ancef x24 hours. Then discontinue. Of note, patient's chart has cephalosporin allergy listed, but patient states that this is inaccurate. She states that she has never had hives in her life, and she does not recall ever being given cephalosporins. She tolerated Ancef intraoperatively without any difficulty. -Coffee-ground emesis yesterday. EGD performed yesterday showing esophagitis with mild bleeding. Please see GI consultation/operative summary. Planning for 2 days of liquid diet and IV Protonix. No aspirin or NSAIDs at this time. Continue oxycodone for pain management -DVT prophylaxis: SCDs and LENIN bee. -Reviewed activity restrictions: No resisted elbow flexion, no resisted forearm supination. PT/OT protocols. -Plan for discharge to home when okay with medicine service. Admission and Anticipated Discharge Date Admission Date: September 29, 2020 Subjective Postop day 3 Patient sitting up at the bedside. No complaints this morning. Pain is controlled. Denies shortness of breath, chest pain, lightheadedness. Denies nausea or vomiting. Physical Exam Physical Exam: Silverlon dressing is clean, dry, and intact. Sling is in place. Neurovascular is intact. Good motor function of the left hand and fingers. Cap refills less than 2 seconds. Results & Data ([facility]) Vital Signs (Past 12 Hours) Vital Signs Temp Pulse Resp BP Pulse Ox 10/02/20 07:01 36.7 C 72 16 143/77 H 93 10/01/20 23:10 37 C 83 16 142/72 H 91
--- NOTE | 2020-10-02 16:59 | Hospitalist Progress Note ---
Date of Service October 02, 2020 Assessment & Plan (1) Status post total shoulder arthroplasty: Patient is an 84 yr female with H/O HTN, HLD, COPD, CKD III, tobacco use disorder and other medical problems was consulted for postop medical management Posttraumatic osteoarthritis, left shoulder S/P left reverse total shoulder arthroplasty by Dr. Grossman. POD#3 Avoid NSAIDs for pain control Continue bowel regimen to prevent constipation Wound care, activity as per orthopedics Pain is controlled (2) Hematemesis: Hematemesis Esophagitis History of Contreras's esophagus -S/P EGD:Bleeding esophagitis with underlying Contreras's esophagus. Treated with argon plasma coagulation (APC). Injected with Epi. Hematin (altered blood/wcyedu-cvrpeg-nwos material) in the gastric body. Normal duodenal bulb and second portion of the duodenum. No specimens collected. -Continue IV Protonix drip today -Plan to transition to p.o. Protonix 40 mg twice a day for 3 months starting tomorrow -Avoid NSAIDs, aspirin for at least 3 days -Needs repeat endoscopy in 6 weeks -Appreciate GI input Monitor CBC Hb:10.3 today Advance diet today (3) Hyperlipidemia: Continue statin (4) CKD (chronic kidney disease), stage III: Kindey function at baseline (Cr~1). Monitor daily BMP (5) COPD (chronic obstructive pulmonary disease): Per records. (6) Acid reflux: Continue PPI (7) Abnormal finding on CT scan: Left renal lesion Incidental finding on CT abdomen -CT ABD:Left upper pole renal scarring. 24 mm left upper pole hypodense lesion which exceeds water attenuation and is therefore indeterminate. There are associated calcifications, which may in part be parenchymal. Ultrasound follow- up recommended to help determine whether this is a cystic or solid lesion. -Further work-up as outpatient (8) Tobacco use disorder: Offered nicotine patch and declined PCP: Sonal Dispo: Per primary service Admission and Anticipated Discharge Date Admission Date: September 29, 2020 Subjective Patient is seen and examined at bedside States having minimal black stool this morning Tolerates liquid diet States feeling hungry Denies chest pain, dyspnea, dizziness, nausea, abdominal pain Review of Systems Review of Systems: All systems reviewed & are unremarkable except as noted in HPI & below Physical Exam Physical Exam: Physical Exam: Vitals signs as noted above General Appearance:Moderately built and nourished, no apparent distress Head: normocephalic, Atraumatic Eyes: normal inspection, EOMI Neck: supple, Trachea midline Respiratory/Chest: Normal breath sounds, CTA, No accessory muscle use Cardiovascular: S1, S2, No murmur Abdomen/GI:Soft, Non tender, Bowel sounds present Extremities/Musculoskeletal:normal inspection, no edema, LUE in sling Neurologic/Psych:AAOX3, grossly no focal neurological deficits Skin: normal color, warm Results & Data Results & Data ([facility]) Vital Signs (Past 12 Hours) Vital Signs Temp Pulse Resp BP Pulse Ox 10/02/20 14:50 37 C 73 19 118/68 94 10/02/20 07:01 36.7 C 72 16 143/77 H 93 Laboratory Results Short CBC 10/02/20 Range/Units 05:25 WBC 4.75 L (4.8-10.8) K/uL Hgb 10.3 L (12.0-16.0) g/dL Hct 31.1 L (37-47) % Plt Count 178 (130-400) K/uL BMP 10/02/20 05:25 Sodium 141 Potassium 3.6 Chloride 110 H Carbon Dioxide 26 BUN 15 Creatinine 0.72 Glucose 91 Calcium 8.9
[2020-10-02] MEDS: SENNA 8.6 MG TAB PO SCH (19:58)
[2020-10-02] MEDS: CYANOCOBALAMIN 500 MCG TABLET (VITAMIN B-12) PO SCH (19:59)
[2020-10-03] MEDS: PANTOprazole 40 MG in DEXTROSE 5% 100 ML IV SCH ×2 (00:17→05:04)
[2020-10-03] MEDS: ACETAMINOPHEN 500 MG TAB PO SCH ×2 (03:26→09:47)
[2020-10-03 06:40] LABS: Hematocrit (blood only) 32.7 % (37-47); Hemoglobin 10.7 g/dL (12.0-16.0)
[2020-10-03] MEDS: DOCUSATE SODIUM 100 MG CAP PO SCH (08:18)
[2020-10-03] MEDS: lisinopril 40 MG TAB PO SCH (08:19)
[2020-10-03] MEDS: CHOLECALCIFEROL 1,000 UNITS 25 MCG TAB PO SCH (08:19)
[2020-10-03] MEDS: MULTIVITAMIN TAB PO SCH (08:19)
[2020-10-03] MEDS: ROSUVASTATIN CALCIUM 20 MG TAB PO SCH (08:19)
[2020-10-03] MEDS ORDERED: PANTOprazole 40 MG TAB PO SCH (09:00)
--- NOTE | 2020-10-03 11:03 | Hospitalist Progress Note ---
Date of Service October 03, 2020 Assessment & Plan (1) Status post total shoulder arthroplasty: Patient is an 84 yr female with H/O HTN, HLD, COPD, CKD III, tobacco use disorder and other medical problems was consulted for postop medical management Posttraumatic osteoarthritis, left shoulder S/P left reverse total shoulder arthroplasty by Dr. Grossman. POD#4 Avoid NSAIDs for pain control Continue bowel regimen to prevent constipation Wound care, activity as per orthopedics Pain is controlled Continue PT/OT (2) Hematemesis: Hematemesis Esophagitis History of Contreras's esophagus -S/P EGD:Bleeding esophagitis with underlying Contreras's esophagus. Treated with argon plasma coagulation (APC). Injected with Epi. Hematin (altered blood/nyooya-kxetyq-oefu material) in the gastric body. Normal duodenal bulb and second portion of the duodenum. No specimens collected. -Continue IV Protonix drip today -Plan to transition to p.o. Protonix 40 mg twice a day for 3 months starting tomorrow -Avoid NSAIDs, aspirin for at least 3 days -Needs repeat endoscopy in 6 weeks -Appreciate GI input Monitor CBC Hb:10.7 today Tolerated diet No recurrence of bleeding Advised to follow-up with GI for repeat EGD in 6 weeks. (3) Hyperlipidemia: Continue statin (4) CKD (chronic kidney disease), stage III: Kindey function at baseline (Cr~1). Monitor daily BMP (5) COPD (chronic obstructive pulmonary disease): Per records. (6) Acid reflux: Continue PPI (7) Abnormal finding on CT scan: Left renal lesion Incidental finding on CT abdomen -CT ABD:Left upper pole renal scarring. 24 mm left upper pole hypodense lesion which exceeds water attenuation and is therefore indeterminate. There are associated calcifications, which may in part be parenchymal. Ultrasound follow- up recommended to help determine whether this is a cystic or solid lesion. -Further work-up as outpatient (8) Tobacco use disorder: Offered nicotine patch and declined PCP: Sonal Dispo: Per primary service Admission and Anticipated Discharge Date Admission Date: September 29, 2020 Subjective Patient is seen and examined at bedside States feeling well Offers no complaints Denies any bleeding issues today Denies chest pain, dyspnea, dizziness, nausea, abdominal pain Eager to get discharged Review of Systems Review of Systems: All systems reviewed & are unremarkable except as noted in HPI & below Physical Exam Physical Exam: Physical Exam: Vitals signs as noted above General Appearance:Moderately built and nourished, no apparent distress Head: normocephalic, Atraumatic Eyes: normal inspection, EOMI Neck: supple, Trachea midline Respiratory/Chest: Normal breath sounds, CTA, No accessory muscle use Cardiovascular: S1, S2, No murmur Abdomen/GI:Soft, Non tender, Bowel sounds present Extremities/Musculoskeletal:normal inspection, no edema, LUE in sling Neurologic/Psych:AAOX3, grossly no focal neurological deficits Skin: normal color, warm Results & Data Results & Data ([facility]) Vital Signs (Past 12 Hours) Vital Signs Temp Pulse Resp BP Pulse Ox 10/03/20 07:25 36.5 C 71 18 146/73 H 95 Laboratory Results Short CBC 10/03/20 Range/Units 05:26 Hgb 10.7 L (12.0-16.0) g/dL Hct 32.7 L (37-47) %
--- NOTE | 2020-10-03 14:14 | Orthopedic Progress Note ---
Date of Service October 03, 2020 Assessment & Plan (1) Post-traumatic osteoarthritis, left shoulder: Postoperative day #3 status post left reverse total shoulder arthroplasty for severe posttraumatic arthritis. -Ancef x24 hours. Then discontinue. Of note, patient's chart has cephalosporin allergy listed, but patient states that this is inaccurate. She states that she has never had hives in her life, and she does not recall ever being given cephalosporins. She tolerated Ancef intraoperatively without any difficulty. -Coffee-ground emesis yesterday. EGD performed showing esophagitis with mild bleeding. Please see GI consultation/operative summary. Planning for 2 days of liquid diet and IV Protonix. No aspirin or NSAIDs at this time. Continue oxycodone for pain management -DVT prophylaxis: SCDs and LENIN bee. -Reviewed activity restrictions: No resisted elbow flexion, no resisted forearm supination. PT/OT protocols. -Okay per Dr. Kraus for patient to be discharged. Plan for discharge to home today. Admission and Anticipated Discharge Date Admission Date: September 29, 2020 Subjective Postop day 4 Patient sitting in her bedside. No complaints today. Pain is controlled. She is anxiously awaiting to go home. [facility] service has cleared her medically to go home today. Physical Exam Physical Exam: Silverlon dressing is clean, dry, and intact. Sling is in place. She denies any pain in the elbow. She has good range of motion of her wrist hand and fingers. Capillary fill is less than 2 seconds. Results & Data ([facility]) Vital Signs (Past 12 Hours) Vital Signs Temp Pulse Resp BP Pulse Ox 10/03/20 07:25 36.5 C 71 18 146/73 H 95
--- NOTE | 2020-10-03 17:07 | Discharge Summary ---
Date of Service October 03, 2020 Admission HPI Per Admitting Provider She returns today for her left shoulder. Again, she sustained a severely comminuted left proximal humerus fracture with head split sustained during a ground-level fall in July 2019. When I initially saw her for this, we mutually decided on nonoperative treatment rather than a reverse total shoulder arthroplasty, especially in light of the coronavirus pandemic. She has since developed painful posttraumatic arthritis in the left shoulder with persistent pain and crepitus. I have given her injections twice, and both of them gave her about 2 to 2-1/2 months of pain relief. The pain relief was not complete, maybe 50% improvement in her pain. This pain and especially the limitation in range of motion and function is very bothersome to her. Principal Diagnosis Left shoulder post-traumatic arthritis Discharge Data Allergies Allergy/AdvReac Type Severity Reaction Status Date / Time imipenem Allergy Severe Dyspnea Verified 09/30/20 13:24 meropenem Allergy Severe Dyspnea Verified 09/30/20 13:24 penicillamine Allergy Severe Dyspnea Verified 09/30/20 13:24 ranitidine Allergy Severe Dyspnea Verified 09/30/20 13:24 ampicillin Allergy Intermediate Dyspnea, Verified 09/30/20 13:24 hives azithromycin Allergy Intermediate Hives, Verified 09/30/20 13:24 angioedema Cephalosporins Allergy Intermediate Hives Verified 09/30/20 13:24 cilastatin Allergy Intermediate Dyspnea Verified 09/30/20 13:24 Macrolide Antibiotics Allergy Intermediate Hives, Verified 09/30/20 13:24 angioedema Penicillins Allergy Intermediate Hives Verified 09/30/20 13:24 adhesive Allergy Mild Rash Verified 09/30/20 13:24 Carbapenems Allergy Unknown Dyspnea Verified 09/30/20 13:24 Consultations 09/29/20 16:43 Consult Hospitalist Routine 09/30/20 07:51 Consult Gastroenterology Routine Procedures Performed Operation Date: 09/29/20 11:05 Actual Procedures p Left Reverse Total Shoulder Arthroplasty(Left) - Obdulio Grossman M.D. Operation Date: 09/30/20 17:00 Actual Procedures p EGD Hemostasis - Santi Edwards MD s Injection Therapy / Sclerotherapy - Santi Edwards MD Ordered Studies 09/08/20 05:00 US - OR guided needle placemen Routine 09/29/20 05:00 US - OR guided needle placemen Routine 09/30/20 06:15 CT abd pelvis IV con only Urgent Hospital Course (1) History of shoulder replacement: Patient underwent a left reverse total shoulder arthroplasty on the date of admission. Patient tolerated the procedure well and was transferred up to the general orthopedic surgery floor in stable condition. Perioperative antibiotic coverage was initiated, and continued for 24 hours postoperatively. DVT prophylaxis was initiated consisting of SCDs and aspirin 325 mg daily. Perioperative pain control regimen was transitioned to strictly oral pain medications by postoperative day 1. In the morning on postoperative day 1, she complained of epigastric pain and had some dark-colored emesis. Gastroenterology was consulted, and EGD was performed on the same day. This showed bleeding esophagitis with diffuse mucosal bleeding, consistent with Contreras's esophagus; this was treated with argon plasma coagulation. She was kept in the hospital for an additional 2 days for IV proton pump inhibitor medication, which was then transitioned to oral medication for outpatient use. She was also kept on a clear liquid diet for 2 days. On postoperative day 4 from her total shoulder, the patient was doing very well. Pain was well controlled, and patient was mobilizing well with therapy. Patient was determined be safe and ready for discharge to home. Total Time Total Time Spent Total Time Spent (In Minutes): 20 Discharge Plan Discharge Items Patient Disposition: Home - Self-Care Reason For Visit: Post Traumatic Osteoarthritis, Left Shoulder Discharge Diagnosis: Left shoulder post-traumatic arthritis Activity: Per Instructions section Non-emergency contact: Surgeon Call non-emergency contact if: your pain is not controlled, your temperature is above 101.5, your wound has increased redness and your wound has increased drainage Follow-up/Referrals: Santi Edwards MD [Hospitalist] - (Call the office for a follow-up appointment and to schedule another EGD ) Obdulio Grossman M.D. [Physician] - Ni Burger MD [Primary Care Provider] - 10/07/20 2:00 pm (Date & Time 10/07/2020 2:00 PM Provider Ni Nieto MD Department Family Medicine [facility] ) Diet: Heart Healthy and Low Fiber Addtl Attending Provider Instructions: Things to Watch Out For -Go to the Emergency Room if you have sudden onset of nausea, vomiting, chest pa in, shortness of breath, or uncontrollable pain. -Call the clinic or go to the Emergency Room if you have a sudden increase in the amount of wound drainage or the drainage becomes thick, yellow or green, or foul-smelling. -For routine questions, call the clinic at [phone] during regular business hours (8am-5pm). For urgent issues after regular business hours, you may call the clinic to be connected to the on-call physician. Dressings -A special waterproof, silver-impregnated dressing was placed on your shoulder. Keep this dressing in place for 1 week after surgery. You may shower with the waterproof dressing in place, but do not soak the dressing in the bathtub or pool. -One week after surgery, you may remove the waterproof dressing. You may continue to shower, and let water run BRIEFLY over the incision, but do not soak the incision in the bathtub or pool for 2 weeks. You may also gently clean the incision with mild soap and water; pat the incision dry after cleaning-do not rub the incision. Apply a new dressing daily thereafter. Shoulder Exercises -Keep your operative shoulder in the sling for comfort, except as detailed below. -You should come out of the sling 4-5 times a day for passive pendulum exercises: lean over and swing your arm in a circular pattern. -You should also do active-assisted forward flexion exercises: use your opposite hand to lift your operative arm forward to 90 degrees. -Do not flex your elbow (curl motion) or supinate your forearm (rotating palm up) against resistance. -Do not use your arm to push yourself up out of bed or up from a seated p osition. Ice Pack -You may use an ice pack for pain relief. You should use it 20-30 minutes at a time. Place a towel between the ice pack and your skin to prevent frostbite. -You should use the ice pack fairly regularly for the first 1-2 weeks after surgery to help reduce pain and inflammation. -About 2 weeks after your surgery, you should start using heat to loosen up your shoulder prior to doing your stretching exercises, then use the cooling sleeve after your exercises are complete to reduce swelling and pain. Pain Medicines -Do not take any nonsteroidal anti-inflammatory medications such as Advil, ibuprofen, Aleve, that may have been prescribed -You have also been prescribed an additional narcotic pain medication (oxycodone). Take this medicine ONLY for breakthrough pain not controlled by the Tylenol -Do not drive or operate heavy machinery while taking the narcotic medication. -Common side effects of narcotic pain medicines include itching, nausea, const ipation, and feeling "loopy". However, if you develop a rash or hives, stop taking the medicine and call the clinic. If you develop swelling in your throat or difficulty breathing, go to the Emergency Room or call 911 IMMEDIATELY. -You may take over the counter stool softeners if needed for constipation. Aspirin -Do not take aspirin for 1 week. Then you may begin taking a full-strength aspirin tablet (325mg) once daily to reduce the chance of blood clots. -If you were taking a baby aspirin (81mg) prior to surgery, you may resume taking this 81mg dose after you complete the 28-day course of the 325mg strength dose; do not take the 325mg dose in addition to your 81mg dose. -Be aware that you will bruise easier while taking Aspirin; this is normal. However, if you develop a significantly large area of swelling after an injury, or have a cut that will not stop bleeding, call the clinic or go to the Emergency Room immediately. Addtl Gravedigger Provider Instructions: During your admission, you had imaging done of your abdomen/pelvis that incidentally showed lesion in L kidney. Please follow up with primary care for ultrasound follow-up to help determine whether this is a cystic or solid lesion. - No aspirin, ibuprofen, naproxen, or other non-steroidal anti-inflammatory drugs for at least 3 days. - Repeat upper endoscopy in 6 weeks to check healing and obtain biopsies. Pending Studies at Discharge: No Stand-Alone Forms: [facility], Opioid Pain Management, Smoking Cessation Medications and DC Order Prescriptions: New pantoprazole 40 mg Tablet,Delayed Release (Dr/Ec) 40 mg PO BID 30 Days Qty: 60 RF: 0 acetaminophen 500 mg capsule 1,000 mg PO Q8H 14 Days Qty: 84 RF: 0 oxycodone 5 mg Tablet 5 mg PO Q4H MDD 6 PRN (Reason: pain) Qty: 30 RF: 0 Continued multivitamin Tablet 1 tab PO QAM RF: 0 cyanocobalamin (vitamin B-12) [Vitamin B-12] 1,000 mcg Tablet 1,000 mcg PO PM RF: 0 omeprazole 20 mg Capsule,Delayed Release(Dr/Ec) 20 mg PO QAM RF: 0 lisinopril 40 mg Tablet 40 mg PO QAM RF: 0 fluticasone propionate 50 mcg/actuation [place],Suspension 2 spray INTRANASAL QAM PRN (Reason: Nasal Congestion) RF: 0 rosuvastatin [Crestor] 20 mg Tablet 20 mg PO QAM RF: 0 cholecalciferol (vitamin D3) [Vitamin D3] 25 mcg (1,000 unit) Tablet,Chewable 25 mcg PO QAM RF: 0 Discontinued aspirin [Aspirin Low Dose] 81 mg Tablet,Delayed Release (Dr/Ec) 81 mg PO QAM RF: 0 Discharge Orders: Discharge Order (Routine); Ordered 10/03/20 Ordered By: Chris Gutierrez/Other Patient Handouts: After Reverse Total Shoulder ..., Reverse Total Shoulder Replacement Admission Data Admit Date/Time: 09/29/20 14:47 Attending Provider: Obdulio Grossman Admit Provider: Obdulio Grossman Primary Care Provider: Ni Burger Other Providers: Shelley Woods ; Patria Bell ; Zohreh Herrmann ; Neo Persaud ; Chelsea Desouza ; Sinai Miles ; Mariola De Leon ; Aarti Burrows ; Luis Wahl ; Alexandro Juan ; Brennan Rosas ; Stefani Pace ; Magui De Leon ; Aashish Randle ; Margaret Mitchell ; Meg Pantoja ; Juan Diego Kilpatrick ; Linda Saldana ; Patria Azar ; Sveta Lara ; Danna Stark I. ; Dustin Quinteros ; Ester Wilson ; Mariia Castanon ; Aleshia Zamarripa ; Tatianna Matias ; Dima Castaneda ; Kiarra Reeves ; Ja Griffin ; Yamil Doran ; Rene Elise ; Suellen Arevalo ; Nenita Chavez ; Rosario Zamora ; Taylor Juarez ; Santi Edwards Other Interventions: Discharge Summary Assessment (RN) Last Done: 10/03/20 14:17
== END 2020-10-03 15:11 | disposition home or self-care (01) | DRG 483 ==
LOC: ASU 08:51 → 3E 14:47

== ENCOUNTER 2022-03-28 08:31 | Inpatient (IN) ==
--- NOTE | 2022-02-28 16:08 | PAT Medication Instructions ---
Medication Instructions Date of Service February 28, 2022 Home Medications Medication Instructions Recorded oxycodone 5 mg tablet 5 mg PO Q4H PRN pain #30 tabs 10/03/20 cyanocobalamin (vitamin B-12) 1,000 mcg tablet (Vitamin B-12) 1,000 mcg PO PM fluticasone propionate 50 mcg/actuation nasal spray,suspension 2 spray intranasal QAM PRN Nasal Congestion lisinopril 40 mg tablet 40 mg PO QAM multivitamin 1 tab PO QAM rosuvastatin 20 mg tablet (Crestor) 20 mg PO QAM cholecalciferol (vitamin D3) 25 mcg (1,000 unit) chewable tablet (Vitamin D3) 25 mcg PO QAM oxycodone 5 mg tablet 5 mg PO Q4H PRN pain omeprazole 40 mg capsule,delayed release 40 mg PO QAM acetaminophen 500 mg tablet (Tylenol Extra Strength) 500 mg PO QID PRN Pain albuterol 90 mcg/actuation aerosol inhaler 90 mcg inhalation Q4 PRN Shortness Of Breath Or Wheezing amlodipine 5 mg tablet 5 mg PO QAM DO NOT take the morning of surgery lisinopril 40 mg tablet 40 mg PO QAM multivitamin 1 tab PO QAM cholecalciferol (vitamin D3) 25 mcg (1,000 unit) chewable tablet (Vitamin D3) 25 mcg PO QAM Take morning of surgery With a small sip of water, OTHERWISE NOTHING TO EAT OR DRINK AFTER MIDNIGHT: fluticasone propionate 50 mcg/actuation nasal spray,suspension 2 spray intranasal QAM PRN Nasal Congestion (if needed) rosuvastatin 20 mg tablet (Crestor) 20 mg PO QAM oxycodone 5 mg tablet 5 mg PO Q4H PRN pain (if needed) omeprazole 40 mg capsule,delayed release 40 mg PO QAM acetaminophen 500 mg tablet (Tylenol Extra Strength) 500 mg PO QID PRN Pain (if needed) albuterol 90 mcg/actuation aerosol inhaler 90 mcg inhalation Q4 PRN Shortness Of Breath Or Wheezing (use if needed; please bring rescue inhaler with you to hospital day of surgery if possible) amlodipine 5 mg tablet 5 mg PO QAM Take evening before surgery cyanocobalamin (vitamin B-12) 1,000 mcg tablet (Vitamin B-12) 1,000 mcg PO PM oxycodone 5 mg tablet 5 mg PO Q4H PRN pain (if needed) acetaminophen 500 mg tablet (Tylenol Extra Strength) 500 mg PO QID PRN Pain (if needed) albuterol 90 mcg/actuation aerosol inhaler 90 mcg inhalation Q4 PRN Shortness Of Breath Or Wheezing (if needed) Other Notes If you have any questions please call us at [phone] or [phone] or [phone] or [phone]
--- NOTE | 2022-03-06 13:09 | Anesthesiology Consultation ---
Date of Service March 06, 2022 Assessment & Plan (1) Encounter for pre-operative examination: - awaiting PCP clearance scheduled 03/16/22 per pt. - anesthesia reaction history: Patient- POD 1 or 2 after Left SI joint fusion at [facility] (06/14/20) patient had episode of weakness and emesis (?hematemesis). No recurrence. PCP suspected vagal reaction to the anesthesia/issue related to third spacing. Patient states she was told that this might have been related to chronic constipation. No further issues and f/u blood work unremarkable. No similar issues with other surgeries/anesthesia. Patient states she was told to make sure she was not significantly constipated prior to future surgeries (patient plans to do bowel regimen with upcoming surgery). Chart Review Chart Review: Pending: Refer to Additional Notes / Consult section and Patient seen in Pre Admission Testing Teaching & Discussion Pre-Anesthesia Teaching/Discussion Notes: Instructed NPO after midnight before surgery, except medications with 15 cc of water. Medication instructions provided according to the PAT guidelines. History Surgery Operation Date: 03/28/22 07:45 Proposed Procedures p T11-L1 Decompression and Fusion, Spinal Cord Monitoring - Samson Potts, Height/Weight Height: 5 ft 5 in Weight: 74 kg Allergies Allergy/AdvReac Type Severity Reaction Status Date / Time imipenem Allergy Severe Dyspnea Verified 02/27/22 10:51 meropenem Allergy Severe Dyspnea Verified 02/27/22 10:51 penicillamine Allergy Severe Dyspnea Verified 02/27/22 10:51 ranitidine Allergy Severe Dyspnea Verified 02/27/22 10:51 ampicillin Allergy Intermediate Dyspnea, Verified 02/27/22 10:51 hives azithromycin Allergy Intermediate Hives, Verified 02/27/22 10:51 angioedema Cephalosporins Allergy Intermediate Hives Verified 02/27/22 10:51 cilastatin Allergy Intermediate Dyspnea Verified 02/27/22 10:51 Macrolide Antibiotics Allergy Intermediate Hives, Verified 02/27/22 10:51 angioedema Penicillins Allergy Intermediate Hives Verified 02/27/22 10:51 adhesive Allergy Mild Rash Verified 02/27/22 10:51 Carbapenems Allergy Unknown Dyspnea Verified 02/27/22 10:51 Medications Home Medications Medication Instructions Recorded Confirmed Last Taken cyanocobalamin (vitamin B-12) 1,000 mcg PO PM 12/14/18 02/27/22 09/28/21 1,000 mcg tablet (Vitamin B-12) fluticasone propionate 50 2 spray intranasal QAM PRN Nasal 12/14/18 02/27/22 09/28/20 08:30 mcg/actuation nasal Congestion spray,suspension lisinopril 40 mg tablet 40 mg PO QAM 12/14/18 02/27/22 09/29/21 multivitamin 1 tab PO QAM 12/14/18 02/27/22 09/29/21 rosuvastatin 20 mg tablet (Crestor) 20 mg PO QAM 11/12/19 02/27/22 09/29/21 cholecalciferol (vitamin D3) 25 25 mcg PO QAM 05/05/20 02/27/22 09/29/21 mcg (1,000 unit) chewable tablet (Vitamin D3) oxycodone 5 mg tablet 5 mg PO Q4H PRN pain #30 tabs 10/03/20 02/27/22 Unknown omeprazole 40 mg capsule,delayed 40 mg PO QAM 09/29/21 02/27/22 09/29/21 release acetaminophen 500 mg tablet 500 mg PO QID PRN Pain 02/27/22 02/27/22 Unknown (Tylenol Extra Strength) albuterol 90 mcg/actuation aerosol 90 mcg inhalation Q4 PRN Shortness 02/27/22 02/27/22 Unknown inhaler Of Breath Or Wheezing amlodipine 5 mg tablet 5 mg PO QAM 02/27/22 02/27/22 Unknown Past Medical History Medical History (Updated 03/06/22 @ 13:49 by Geraldine Jenkins PA-C) Acid reflux controlled, stable per pt Carotid stenosis 50-69% right sided stenosis per 09/2018 doppler report but personal review of imaging by vascular felt that carotid artery stenosis <50% b/l - advised by vascular to f/u PRN; denies dizziness, lightheadedness, visual changes, headaches or syncope Chronic constipation CKD (chronic kidney disease), stage III COPD (chronic obstructive pulmonary disease) stable per pt, last rescue inhaler use 1 week ago Elevated hemidiaphragm L History of COVID-19 10/2021 cough- no hospitalization, no current issues History of GI bleed 2020- DIRECTLY AFTER SHOULDER SURGERY History of left shoulder fracture 07/2019 - medically managed until this upcoming surgery Hx of cancer of uterus s/p hysterectomy with USO Hyperlipidemia Hypertension controlled, stable per pt Tobacco use disorder Patient denies h/o stroke, seizures, heart attack, heart failure, DM, blood clots or blood transfusions. Exercise / Class Metabolic Activity III < 4 Walking/Shop/Light housework (denies CP or SOB with usual activities) Past Family History Family History Other Heart disease Past Surgical History Surgical History Fusion of spine Left SI joint fusion: 06/14/2020: Grade 2 view, MAC 3.0, ETT 7.0 at [facility] H/O hemorrhoidectomy H/O: hysterectomy + USO History of appendectomy History of cataract surgery R/L History of cholecystectomy History of colonoscopy History of esophagogastroduodenoscopy (EGD) History of lumbar fusion History of shoulder replacement L reverse TSA 09/29/20: LMA#4 + PNB. History of surgery "Windpipe growth" removal History of tonsillectomy Hx of fusion of cervical spine Hx of surgical procedure Right SI joint fusion Hx of tooth extraction Past Anesthesia History Other (daughter with dyspnea on emergence) Patient- POD 1 or 2 after Left SI joint fusion at [facility] (06/14/20) patient had episode of weakness and emesis (?hematemesis). No recurrence. PCP suspected vagal reaction to the anesthesia/issue related to third spacing. Patient states she was told that this might have been related to chronic constipation. No further issues and f/u blood work unremarkable. No similar issues with other surgeries/anesthesia. Patient states she was told to make sure she was not significantly constipated prior to future surgeries (patient plans to do bowel regimen with upcoming surgery). Pt re-confirmed this at PAT 03/06/22. History of PONV No Hx of Motion Sickness and History of PONV (denies needing scop patch) Social History Smoking Status: Current every day smoker tobacco type: cigarettes Smoking cigarettes per day: 10 PER DAY - ADVISED Do You Dip or Chew Tobacco: No Hx Alcohol Use: No Hx Substance Use: No substance use type: does not use Review of Systems Patient denies chest pain, shortness of breath, dyspnea on exertion, snoring, witnessed apneas, fever, chills, cough, wheezing, or palpitations. Physical Exam Vital Signs Vitals BP 117/81 P 57 TEMP 98.6 SP02 98% on RA RESP 18 Physical Full cervical extension range of motion without pain TMD 3.5 finger breadths Mallampati Score 1 Dentition: edentulous, full upper and lower dentures Lungs: normal respiratory effort. Clear throughout to auscultation, good air movement; mild end expiratory wheezes, no rales or rhonchi Cardiac: regular rate and rhythm, no murmurs noted Carotid arteries: negative bruit bilat Lab Results Anesthesia Preop Results Results Anesthesia Widget: WBC 5.59 K/ul (4.8-10.8) 03/06/22 Hgb 13.7 g/dl (12.0-16.0) 03/06/22 Hct 41.4 % (34.1-44.9) 03/06/22 Plt 194 K/uL (130-400) 03/06/22 Testing Electrocardiogram Date: 09/29/21 NSR, rate 60 bpm Left axis deviation Chest X-Ray Date: 03/06/22 Cardiac silhouette is mildly enlarged. Interstitial coarsening of the lung bases appears chronic. No pneumothorax, pleural effusion, airspace consolidation or overt pulmonary edema. Degenerative changes of the spine and right shoulder. Cervical and lumbar spinal fusion hardware. Reverse left shoulder total joint arthroplasty. IMPRESSION: No acute process. Other Testing Vascular study 10/10/18 R ICA 50-69% stenosis Normal L ICA COVID-19 Risk Screen Screening Information COVID-19 Screen Date: 03/06/22 Exposure 21 Days Family/Household +COVID Last 21 Days: No Exposure 10 Days Any COVID Exposure Last 10 Days: No Symptoms Last 10 Days Experienced COVID Sx Last 10 Days: No + COVID 0-90 Days COVID + in Last 0-90 Days: No
[~2022-03-28 08:31] MED LIST changes: -ANCEF - ALLERGY NOTED TO ORDERED MEDICATION SCH; -BUPIVACAINE 0.5 % 5 MG/1 ML PF 10ML VIAL ONE; +DEXAMETHASONE SOD INJ 4 MG/ML VIAL ONE; -FAMOTIDINE 20 MG TAB PO SCH; +GLYCOPYRROLATE 0.2 MG/ML VIAL ONE; -METOCLOPRAMIDE HCL 10 MG TABLET PO SCH; +MIDAZOLAM HCL 1 MG/ML 2ML VIAL ONE; +NEOSTIGMINE METHYLSULFATE 1 MG/ML 10ML VIAL ONE; +ONDANSETRON INJ 2 MG/ML 2 ML VIAL ONE; +PROPOFOL IV EMULSION 10 MG/ML 20 ML VIAL IV ONE; -ROPIVACAINE 0.5% 5 MG/ML 30 ML VIAL ONE; -TRANEXAMIC ACID 1,000 MG **IV Pre-op IV SCH; -[UNRECOGNIZED DRUG - REMARK] SCH; -[UNRECOGNIZED DRUG - REMARK] SCH; -ceFAZolin 1000MG 1,000 MG/7.5 ML SYR IV SCH; +ceFAZolin 2000MG 2,000 MG/15 ML SYR IV SCH; +fentaNYL citrate 100 MCG/2 ML VIAL ONE; -oxyCODONE HCL 10 MG TABCR (OxyCONTIN) PO SCH
[2022-03-28] MEDS ORDERED: ATROPINE SULFATE 0.1 MG/ML 10ML SYR IV PRN (08:55)
[2022-03-28] MEDS ORDERED: ONDANSETRON INJ 2 MG/ML 2 ML VIAL IV PRN ×2 (08:55→13:49)
[2022-03-28] MEDS ORDERED: fentaNYL citrate 100 MCG/2 ML VIAL IV PRN (08:55)
[2022-03-28] MEDS ORDERED: ePHEDrine sulfate 50 MG/ML AMP IV PRN (08:55)
--- NOTE | 2022-03-28 09:28 | History & Physical Bridge Note ---
Date of Service March 28, 2022 History & Physical Bridge Note I have examined the patient, reviewed the History & Physical and in the interval since the performance of the History & Physical I have noted the following changes of clinical significance: no changes noted
--- NOTE | 2022-03-28 09:29 | History & Physical Report ---
Date of Service March 28, 2022 Assessment & Plan (1) Myelopathy concurrent with and due to spinal stenosis of thoracic region: Plan: T11-L1 decompression and fusion History of Present Illness Chief Complaint: Back and bilateral leg pain Primary Care Provider: Ni Pruitt MD This is an 86-year-old male that presents with chronic persistent back and bilateral leg pain. Failed course of nonoperative care she is here for surgical invention. Allergies Allergy/AdvReac Type Severity Reaction Status Date / Time imipenem Allergy Severe Dyspnea Verified 03/28/22 08:52 meropenem Allergy Severe Dyspnea Verified 03/28/22 08:52 penicillamine Allergy Severe Dyspnea Verified 03/28/22 08:52 ranitidine Allergy Severe Dyspnea Verified 03/28/22 08:52 ampicillin Allergy Intermediate Dyspnea, Verified 03/28/22 08:52 hives azithromycin Allergy Intermediate Hives, Verified 03/28/22 08:52 angioedema Cephalosporins Allergy Intermediate Hives Verified 03/28/22 08:52 cilastatin Allergy Intermediate Dyspnea Verified 03/28/22 08:52 Macrolide Antibiotics Allergy Intermediate Hives, Verified 03/28/22 08:52 angioedema Penicillins Allergy Intermediate Hives Verified 03/28/22 08:52 adhesive Allergy Mild Rash Verified 03/28/22 08:52 Carbapenems Allergy Unknown Dyspnea Verified 03/28/22 08:52 Home Medications Medication Instructions Recorded Confirmed Type cyanocobalamin (vitamin B-12) 1,000 mcg PO PM 12/14/18 03/28/22 History 1,000 mcg tablet (Vitamin B-12) fluticasone propionate 50 2 spray intranasal QAM PRN Nasal 12/14/18 03/28/22 History mcg/actuation nasal Congestion spray,suspension lisinopril 40 mg tablet 40 mg PO QAM 12/14/18 03/28/22 History multivitamin 1 tab PO QAM 12/14/18 03/28/22 History rosuvastatin 20 mg tablet (Crestor) 20 mg PO QAM 11/12/19 03/28/22 History cholecalciferol (vitamin D3) 25 25 mcg PO QAM 05/05/20 03/28/22 History mcg (1,000 unit) chewable tablet (Vitamin D3) oxycodone 5 mg tablet 5 mg PO Q4H PRN pain #30 tabs 10/03/20 03/28/22 Rx omeprazole 40 mg capsule,delayed 40 mg PO QAM 09/29/21 03/28/22 History release acetaminophen 500 mg tablet 500 mg PO QID PRN Pain 02/27/22 03/28/22 History (Tylenol Extra Strength) albuterol 90 mcg/actuation aerosol 90 mcg inhalation Q4 PRN Shortness 02/27/22 03/28/22 History inhaler Of Breath Or Wheezing amlodipine 5 mg tablet 5 mg PO QAM 02/27/22 03/28/22 History docusate sodium 50 mg capsule 50 mg PO DAILY 03/28/22 03/28/22 History (Stool Softener) Past Med/Surg History Medical History (Updated 03/28/22 @ 09:32 by Samson Potts DO) Acid reflux controlled, stable per pt Carotid stenosis 50-69% right sided stenosis per 09/2018 doppler report but personal review of imaging by vascular felt that carotid artery stenosis <50% b/l - advised by vascular to f/u PRN; denies dizziness, lightheadedness, visual changes, head aches or syncope Chronic constipation CKD (chronic kidney disease), stage III COPD (chronic obstructive pulmonary disease) stable per pt, last rescue inhaler use 1 week ago Elevated hemidiaphragm L History of COVID-19 10/2021 cough- no hospitalization, no current issues History of GI bleed 2020- DIRECTLY AFTER SHOULDER SURGERY History of left shoulder fracture 07/2019 - medically managed until this upcoming surgery Hx of cancer of uterus s/p hysterectomy with USO Hyperlipidemia Hypertension controlled, stable per pt Tobacco use disorder Surgical History Fusion of spine Left SI joint fusion: 06/14/2020: Grade 2 view, MAC 3.0, ETT 7.0 at [facility] H/O hemorrhoidectomy H/O: hysterectomy + USO History of appendectomy History of cataract surgery R/L History of cholecystectomy History of colonoscopy History of esophagogastroduodenoscopy (EGD) History of lumbar fusion History of shoulder replacement L reverse TSA 09/29/20: LMA#4 + PNB. History of surgery "Windpipe growth" removal History of tonsillectomy Hx of fusion of cervical spine Hx of surgical procedure Right SI joint fusion Hx of tooth extraction Family History Other Heart disease Social History Smoking Status: Current every day smoker Tobacco Type: Cigarettes Cigarettes Per Day: 10 PER DAY - ADVISED; Second Hand Exposure: No; Do You Dip or Chew Tobacco: No; Tobacco Cessation Education Requested by Patient: No Hx Alcohol Use: No Hx Substance Use: No Preferred Language: Ukrainian Communication Ability: Effective Matrix Supervisor Required: No Beliefs That Will Affect Care: None marital status: Current Living Situation: Spouse Other Information That Helps Us Care for You: No Feels Safe at Home: Yes Safety Concerns: Feels Safe At This Time Assistive Devices: None Physical Exam Physical Exam: Patient is alert and oriented Heart rate and rhythm Lungs clear Results & Data Results & Data ([facility]) Vital Signs (Past 12 Hours) Vital Signs Temp Pulse Resp BP Pulse Ox O2 Del Method 03/28/22 08:55 36.4 C L 73 20 154/76 H 95 Room Air
[2022-03-28] MEDS ORDERED: BUPIVACAINE/EPINEPHRINE 0.25% 1:200,000 30 ML VIAL ONE (09:37)
[2022-03-28] MEDS ORDERED: ceFAZolin 330 MG/ML 1 GM VIAL ONE (09:59)
[2022-03-28] MEDS ORDERED: FLOSEAL HEMOSTATIC MATRIX 10ML TOP ONE (10:34)
--- NOTE | 2022-03-28 12:05 | Operative Report ---
Post Operative Report Pre & Post Diagnosis Operation Date: 03/28/22 10:05 Pre-Op Diagnosis: Spinal Stenosis, Lumbar Region with Neurogenic Post-Op Diagnosis: Spinal Stenosis, Lumbar Region with Neurogenic I identified the patient and participated in the time-out.: Yes Procedure Operation Date: 03/28/22 10:05 Actual Procedures #1 decompression T11-T12 T12-L1 with bilateral medial facetectomies and foraminotomies. #2 posterior spinal fusion T10-T11 T11-T12 T12-L1 L1-L2. #3 placement posterior instrumentation T10 and 1 with connectors at L2. #4 inter body fusion T12-L1. #5 placement of Spira 8 x 22 mm cage at T12-L1. #6 placement locally harvested morselized autograft in the posterior gutters. #7 placement of I factor interbody space and infuse collagen sponge and master of the posterior gutters T10-L2. Surgeon Samson Potts, Meter Installer Tameka Ko Estimated Blood Loss 150 Findings Consistent with Post-Op Diagnosis Specimens None Indications This is a 86-year-old female known to me the presents above-mentioned diagnosis after failed extensive course of nonoperative care she is here for surgical invention. Description of Procedure Patient was met with preoperative Case discussed all questions were addressed point the patient was taken back to operative suite underwent ablation placed in a prone position adjustable top David frame. All bony prominences well-padded eyes inspected to ensure no external pressure placed upon. This point the cervical spine was prepped and draped in a sterile fashion. Sharp dissection with assistance of Bovie cautery was performed down to and exposing the lamina transverse processes of [id number] L1 and L2 instrumentation. In the procedure performed a complete laminectomy of T12 and T11 including bilateral medial facetectomies and foraminotomies addressing severe spinal stenosis. Pedicle screws then placed in [id number] bilaterally with assistance of fluoroscopy and by way of a transforaminal approach on the right a complete discectomy of T12-L1 was performed endplates curetted to subcortically bone and 8 x 22 mm spiral cage filled I factor tapped in position. The proper size rods were then contoured and placed by way of connectors attached to L1-L2 tommie. The transverse processes from T11-L2 were then burred to subcortically bone. Infuse bone sponge mass graft local autograft was placed in posterior gutters. 15 round JANELLE drain inserted. The incision was then closed with 1 Vicryl the fascia 2-0 Vicryl subcutaneously and 4 Monocryl for final skin closure. Steri-Strip sterile dressings placed. Patient was then awakened and taken to PACU in stable condition. Please note spinal cord monitoring was utilized at the procedure no changes noted. Lastly Tameka Ko was present at the entire surgeon while the patient positioning complex portion of the surgery and fascial closure. I attest to the content of the Intraoperative Record and any orders documented therein. Any exceptions are noted below.
--- NOTE | 2022-03-28 13:24 | Anesthesiology Progress Note ---
Date of Service March 28, 2022 Anesthesia Post Procedure Vital Signs Vital Signs: Temp Pulse Pulse Resp BP Pulse Ox O2 Del Method 03/28/22 13:05 65 12 121/69 98 Nasal Cannula 03/28/22 12:55 65 13 101/59 L 95 Room Air 03/28/22 12:45 75 15 125/76 97 Oxymask 03/28/22 12:25 98 H 22 141/77 H 100 Oxymask 03/28/22 12:24 75 15 125/76 97 Oxymask 03/28/22 12:35 97.3 F L 105 H 12 147/80 H 99 Oxymask 03/28/22 08:55 97.5 F L 73 20 154/76 H 95 Room Air O2 Flow Rate 03/28/22 13:05 2 03/28/22 12:55 03/28/22 12:45 7 03/28/22 12:25 7 03/28/22 12:24 7 03/28/22 12:35 7 03/28/22 08:55 Pain Intensity Medial Back: Pain Intensity: 4 Transfer of Care Handoff Completed per policy Notes Mental Status: alert / awake / arousable and participated in evaluation Patient Amnestic to Procedure: Yes Nausea / Vomiting: adequately controlled Pain: adequately controlled Airway Patency, RR, SpO2: stable & adequate BP & HR: stable & adequate Hydration State: stable & adequate Anesthetic Complications: no major complications apparent and Pt Satisfied with anesthetic care
[2022-03-28] MEDS ORDERED: MAGNESIUM HYDROXIDE SUSP 30 ML UDC PO PRN (13:49)
[2022-03-28] MEDS ORDERED: oxyCODONE HCL IR 5 MG TAB (IMMEDIATE RELEASE) PO PRN (13:49)
[2022-03-28] MEDS ORDERED: LORazepam 0.5 MG TAB PO PRN (13:49)
[2022-03-28] MEDS ORDERED: HYDROmorphone INJ 0.5 MG/0.5 ML SYR IV PRN (13:49)
[2022-03-28] MEDS ORDERED: ONDANSETRON 4 MG OD TAB PO PRN (13:49)
[2022-03-28] MEDS ORDERED: LORazepam 0.5 MG in SYRINGE 0 ML IV PRN (13:49)
[2022-03-28] MEDS ORDERED: hydrOXYzine HCl 25 MG TAB PO PRN (13:49)
[2022-03-28] MEDS ORDERED: METOCLOPRAMIDE HCL INJ 5 MG/ML 2 ML VIAL IV PRN (13:49)
[2022-03-28] MEDS ORDERED: SOD PHOSPHATE/SOD BIPHOSPHATE ENEMA 132 ML BTL PR PRN (13:49)
[2022-03-28] MEDS ORDERED: NALOXONE HCL 0.4 MG/1 ML VIAL/CARP IV PRN (13:49)
[2022-03-28] MEDS ORDERED: bisacodyL 10 MG SUPP PR PRN (13:49)
[2022-03-28] MEDS ORDERED: PROMETHAZINE HCL 12.5 MG in SODIUM CHLORIDE 0.9% 50 ML IV PRN (13:49)
[2022-03-28] MEDS ORDERED: traMADol HCL 50 MG TABLET PO PRN (13:49)
[2022-03-28] MEDS ORDERED: diphenhydrAMINE Capsule 25 MG CAP PO PRN (13:49)
[2022-03-28] MEDS ORDERED: LACTATED RINGER'S 1,000 ML IV SCH (13:49)
[2022-03-28] MEDS ORDERED: HYDROmorphone INJ 1 MG/ML SYRINGE IV PRN (13:49)
[2022-03-28] MEDS ORDERED: ACETAMINOPHEN 1,000 MG/100 ML VIAL IV PRN (13:49)
[2022-03-28] MEDS ORDERED: FAMOTIDINE 20 MG TAB PO PRN (13:49)
[2022-03-28] MEDS ORDERED: ALUMINUM/MAGNESIUM SUSP 30 ML UDC PO PRN (13:49)
[2022-03-28] MEDS ORDERED: ALBUTEROL HFA 8 GM INHALER INH PRN (14:01)
--- NOTE | 2022-03-28 14:51 | Consultation ---
Date of Consultation March 28, 2022 Assessment & Plan (1) Lumbar stenosis with neurogenic claudication: (2) Hypertension: (3) Hyperlipidemia: (4) COPD (chronic obstructive pulmonary disease): (5) CKD (chronic kidney disease), stage III: (6) Tobacco use disorder: (7) Acid reflux: Plan Ms. Josefa oliver is an 86-year-old female who is a patient of Dr. Potts's and underwent a T11-T12 and L1 spinal decompression and fusion after failed conservative outpatient treatment. Patient complaints include pain and nausea postoperatively. Lumbar stenosis with neurogenic claudication: POD# 0 s/p T11-T12; L1 decompression and fusion with Dr. Potts. Per ortho for pain control, wound care, anticoagulation and activities. EBL: 150mL JANELLE x1 intact draining bright red blood Monitor H&H, trend in a.m. with CBC. Hgb on 03/06/22 13.7 continue incentive spirometry PT/OT when appropriate; DC alberto over next 24 hours Was taking Oxy and Gabapentin preoperative for pain; continue pain management per ortho. Stool softeners ordered per Ortho. Patient with postoperative nausea; nursing aware and will medicate with Zofran. Hypertension: Stable postop; continue amlodipine and lisinopril Hyperlipidemia: Stable; continue rosuvastatin Trend lipid panel as outpatient COPD: Stable on 2 LNC; does not wear supplemental O2 at home. No current exacerbation. Continue fluticasone daily Continue albuterol as needed CKD stage III: Baseline creatinine 0.8; trend with BMP in a.m. Tobacco use disorder: Smokes less than 1/2 ppd Pt declines having a Nicotine patch Encouraged smoking cessation GERD: Stable; continue omeprazole Disposition: PCP: Dr. Wang VTE prophylaxis: Teds and SCDs per [facility] CODE STATUS: Full code Point of Contact: Pt Fletcher; phone 3 per contact tab I personally was able to review all current laboratory work and diagnostic images obtained in the ED. Additionally, I was able to review the patients past medication reconciliation and history with direct visualization in the patients chart. This patient was seen in collaboration with Dr. Sanders. Supervising Physician Co-Signing Physician Notes Agree with above documentation by KAISER Prasad. Patient seen and examined independently. Lumbar stenosis with neurogenic claudication status post decompression fusion. Patient is comfortable; not in any distress. Pain well controlled. Plan: Incentive spirometry to prevent atelectasis/pneumonia Monitor for ileus Monitor for UTI and DVT Continue home medication for hypertension, hyperlipidemia and GERD. Pain control as per primary. DVT prophylaxis as per primary. History of Present Illness Requesting Physician: Dr. Potts Reason for Consultation: post-operative medical management Attending Physician: Samson Potts, DO History of Present Illness Ms. Josefa oliver is an 86-year-old female who is a patient of Dr. Potts's and underwent a T11-T12 and L1 spinal decompression and fusion after failed conservative outpatient treatment . Patient has a past medical history that includes hypertension, hyperlipidemia, CKD 3, COPD, GERD, and tobacco use. In visiting the patient she was awake alert oriented x4 laying on her left side in her hospital bed with complaints of nausea and lower back pain 09/03. She denies any headache, dizziness, chest pain, palpitations, shortness of breath, vomiting, or diarrhea . Her Fletcher was at the bedside and we discussed her postoperative course. Patient confirmed that she was taking gabapentin and oxycodone preoperatively for conservative management of her back pain. Discussed inpatient pain and symptom management. [place] Hospitalist service consulted for postoperative medical management. Please see A/P for further details. Allergies Allergy/AdvReac Type Severity Reaction Status Date / Time imipenem Allergy Severe Dyspnea Verified 03/28/22 08:52 meropenem Allergy Severe Dyspnea Verified 03/28/22 08:52 penicillamine Allergy Severe Dyspnea Verified 03/28/22 08:52 ranitidine Allergy Severe Dyspnea Verified 03/28/22 08:52 ampicillin Allergy Intermediate Dyspnea, Verified 03/28/22 08:52 hives azithromycin Allergy Intermediate Hives, Verified 03/28/22 08:52 angioedema Cephalosporins Allergy Intermediate Hives Verified 03/28/22 08:52 cilastatin Allergy Intermediate Dyspnea Verified 03/28/22 08:52 Macrolide Antibiotics Allergy Intermediate Hives, Verified 03/28/22 08:52 angioedema Penicillins Allergy Intermediate Hives Verified 03/28/22 08:52 adhesive Allergy Mild Rash Verified 03/28/22 08:52 Carbapenems Allergy Unknown Dyspnea Verified 03/28/22 08:52 Home Medications Medication Instructions Recorded Confirmed Type cyanocobalamin (vitamin B-12) 1,000 mcg PO PM 12/14/18 03/28/22 History 1,000 mcg tablet (Vitamin B-12) fluticasone propionate 50 2 spray intranasal QAM PRN Nasal 12/14/18 03/28/22 History mcg/actuation nasal Congestion spray,suspension lisinopril 40 mg tablet 40 mg PO QAM 12/14/18 03/28/22 History multivitamin 1 tab PO QAM 12/14/18 03/28/22 History rosuvastatin 20 mg tablet (Crestor) 20 mg PO QAM 11/12/19 03/28/22 History cholecalciferol (vitamin D3) 25 25 mcg PO QAM 05/05/20 03/28/22 History mcg (1,000 unit) chewable tablet (Vitamin D3) oxycodone 5 mg tablet 5 mg PO Q4H PRN pain #30 tabs 10/03/20 03/28/22 Rx omeprazole 40 mg capsule,delayed 40 mg PO QAM 09/29/21 03/28/22 History release acetaminophen 500 mg tablet 500 mg PO QID PRN Pain 02/27/22 03/28/22 History (Tylenol Extra Strength) albuterol 90 mcg/actuation aerosol 90 mcg inhalation Q4 PRN Shortness 02/27/22 03/28/22 History inhaler Of Breath Or Wheezing amlodipine 5 mg tablet 5 mg PO QAM 02/27/22 03/28/22 History docusate sodium 50 mg capsule 50 mg PO DAILY 03/28/22 03/28/22 History (Stool Softener) Patient History Medical History Acid reflux controlled, stable per pt Carotid stenosis 50-69% right sided stenosis per 09/2018 doppler report but personal review of imaging by vascular felt that carotid artery stenosis <50% b/l - advised by vascular to f/u PRN; denies dizziness, lightheadedness, visual changes, headaches or syncope Chronic constipation CKD (chronic kidney disease), stage III COPD (chronic obstructive pulmonary disease) stable per pt, last rescue inhaler use 1 week ago Elevated hemidiaphragm L History of COVID-19 10/2021 cough- no hospitalization, no current issues History of GI bleed 2020- DIRECTLY AFTER SHOULDER SURGERY History of left shoulder fracture 07/2019 - medically managed until this upcoming surgery Hx of cancer of uterus s/p hysterectomy with USO Hyperlipidemia Hypertension controlled, stable per pt Tobacco use disorder Surgical History Fusion of spine Left SI joint fusion: 06/14/2020: Grade 2 view, MAC 3.0, ETT 7.0 at [facility] H/O hemorrhoidectomy H/O: hysterectomy + USO History of appendectomy History of cataract surgery R/L History of cholecystectomy History of colonoscopy History of esophagogastroduodenoscopy (EGD) History of lumbar fusion History of shoulder replacement L reverse TSA 09/29/20: LMA#4 + PNB. 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 Beliefs That Will Affect Care: None marital status: Current Living Situation: Spouse Other Information That Helps Us Care for You: No Feels Safe at Home: Yes Safety Concerns: Feels Safe At This Time Assistive Devices: None Review of Systems Review of Systems: Neuro: (-) Falls, trauma, slurred speech HEENT: (-) MCINTOSH, dizziness, dysphagia, visual or auditory changes CV: (-) CP, palpitations, swelling Resp: (-) SOB GI: (-) appetite changes, N/V/D, bowel changes : (-) urinary changes Skin: (-) rashes Psych: (-) anxiety, depression Physical Exam Physical Exam: Neuro: AAOx4, PERRLA, no aphagia, memory changes, CNII-XII grossly intact HEENT: head normocephalic, moist mucus membranes CV: S1/S2, (-) M/G/R, (-) edema, cap refill < 3 seconds Resp: Lungs CTA in all [place]. On RA GI: Abdomen S/NT/ND, Ax4 bowel sounds, (-) CVA tenderness Musculoskeletal: 5/5 B/L UE strength, 5/5 B/L LE strength. No gait disturbance Skin: (-) rashes , (-) erythema. Psych: euthymic mood Results & Data ([facility]) Vital Signs (Past 12 Hours) Vital Signs Temp Pulse Pulse Resp BP Pulse Ox O2 Del Method 03/28/22 14:20 36.4 C L 61 16 97/60 L 95 Nasal Cannula 03/28/22 14:05 60 15 111/67 96 Nasal Cannula 03/28/22 13:50 58 L 13 93/54 L 95 Nasal Cannula 03/28/22 13:35 56 L 16 115/62 93 Nasal Cannula 03/28/22 13:25 36.8 C 53 L 16 94/56 L 95 Nasal Cannula 03/28/22 13:05 65 12 121/69 98 Nasal Cannula 03/28/22 12:55 65 13 101/59 L 95 Room Air 03/28/22 12:45 75 15 125/76 97 Oxymask 03/28/22 12:25 98 H 22 141/77 H 100 Oxymask 03/28/22 12:24 75 15 125/76 97 Oxymask 03/28/22 12:35 36.3 C L 105 H 12 147/80 H 99 Oxymask 03/28/22 08:55 36.4 C L 73 20 154/76 H 95 Room Air O2 Flow Rate 03/28/22 14:20 2 03/28/22 14:05 2 03/28/22 13:50 2 03/28/22 13:35 2 03/28/22 13:25 2 03/28/22 13:05 2 03/28/22 12:55 03/28/22 12:45 7 03/28/22 12:25 7 03/28/22 12:24 7 03/28/22 12:35 7 03/28/22 08:55 Diagnostic Findings Lumbar Spine X-Ray 03/28/22 10:05 FL lumbar spine 2-3V CLINICAL HISTORY: T11-L1 DFI COMPARISON STUDY: CT of the abdomen and pelvis September 30, 2020. Lumbar spine MRI May 08, 2018. Lumbar spine radiographs April 16, 2019. FLUOROSCOPY TIME: 45 seconds. FLUOROSCOPIC IMAGES: 2 FINDINGS: Exact localization is difficult given partial visualization of the lumbar spine. Multilevel discectomy is noted. Posterior decompression and thoracolumbar spine fusion is partially imaged. Visualized portions of the hardware are intact. IMPRESSION: Fluoroscopy provided during thoracolumbar spine decompression and fusion. ACT 112: Negative or not required by law. Electronically signed by: West King M.D. 03/28/2022 2:58 PM
--- NOTE | 2022-03-28 14:59 | Fluoroscopy Report ---
FL lumbar spine 2-3V CLINICAL HISTORY: T11-L1 DFI COMPARISON STUDY: CT of the abdomen and pelvis September 30, 2020. Lumbar spine MRI May 08, 2018. Lumb ar spine radiographs April 16, 2019. FLUOROSCOPY TIME: 45 seconds. FLUOROSCOPIC IMAGES: 2 FINDINGS: Exact localization is difficult given partial visualization of the lumbar spine. Multilevel discectomy is noted. Posterior decompression and thoracolumbar spine fusion is partially imaged. Vis ualized portions of the hardware are intact. IMPRESSION: Fluoroscopy provided during thoracolumbar spine decompression and fusion. ACT 112: Negative or not required by law. Electronically signed by: West King M.D. 03/28/2022 2:58 PM
[2022-03-28] MEDS: ceFAZolin 2000MG 2,000 MG/15 ML SYR IV SCH (18:12)
[2022-03-28] MEDS: CYANOCOBALAMIN (B-12) 500 MCG TABLET PO SCH (21:00)
[2022-03-28] MEDS: DOCUSATE SODIUM/SENNA 50/8.6MG TAB PO SCH (21:00)
[2022-03-29] MEDS: ceFAZolin 2000MG 2,000 MG/15 ML SYR IV SCH (03:05)
[2022-03-29] MEDS: POLYETHYLENE (MIRALAX) 17 GM PACK PO SCH ×4 (05:34→23:44)
[2022-03-29 07:30] LABS: Basophils # (auto) 0.02 K/uL (0-0.2); Basophils % (auto) 0.1 %; Eosinophils # (auto) 0.02 K/uL (0-0.50); Eosinophils % (auto) 0.1 %; Hemoglobin 11.8 g/dl (12.0-16.0); Immature Granulocytes # (auto) 0.09 K/uL (0.00-0.02); Immature Granulocytes % (auto) 0.6 %; Lymphocytes # (auto) 0.78 K/uL (1.2-3.4); Lymphocytes % (auto) 5.2 %; Mean Corpuscular Hemoglobin 29.4 pg (25.0-34.0); Mean Corpuscular Hgb Conc 32.8 g/dL (32.0-36.0); Mean Corpuscular Volume 89.8 fL (80.0-100.0); Mean Platelet Volume 10.1 fL (9.4-12.3); Monocytes # (auto) 0.92 K/uL (0.24-0.82); Monocytes % (auto) 6.2 %; Neutrophils # (auto) 13.03 K/uL (1.4-6.5); Neutrophils % (auto) 87.8 %; Platelet Count 163 K/uL (130-400); RDW Coefficient of Variation 13.6 % (11.5-14.5); RDW Standard Deviation 44.6 fL (36.4-46.3); Red Blood Count 4.01 M/uL (3.93-5.22); White Blood Count 14.86 K/ul (4.8-10.8)
[2022-03-29 07:52] LABS: BUN Creatinine Ratio 23.9 (10-20); Calcium 9.1 mg/dl (8.5-10.1); Creatinine Clr Calc Pharmacy 44.9 ml/min; Est GFR (African American) 65.8 ml/min; Est GFR (Non-African American) 56.8 ml/min; Potassium 4.5 mmol/L (3.5-5.1)
--- NOTE | 2022-03-29 08:19 | Orthopedic Progress Note ---
Date of Service March 29, 2022 Assessment & Plan (1) Myelopathy concurrent with and due to spinal stenosis of thoracic region: Plan: At this time continue physical therapy monitor JANELLE operatively discharge home next few days. Admission and Anticipated Discharge Date Admission Date: March 28, 2022 Subjective Patient's back pain is controlled leg symptoms improved. She was ambulating last night. Physical Exam Physical Exam: On exam she is comfortable. Is constricted testing. Results & Data ([facility]) Vital Signs (Past 12 Hours) Vital Signs Temp Pulse Pulse Resp BP BP Pulse Ox 03/29/22 07:47 93/56 L 03/29/22 06:46 36.6 C 62 16 153/93 H 95 03/29/22 03:01 36.7 C 62 16 119/64 94 03/28/22 23:25 36.4 C L 66 18 109/63 94 O2 Del Method 03/29/22 07:47 03/29/22 06:46 Room Air 03/29/22 03:01 Room Air 03/28/22 23:25 Room Air
[2022-03-29] MEDS ORDERED: amLODIPine BESYLATE 5 MG TAB PO SCH (09:00)
[2022-03-29] MEDS ORDERED: lisinopril 40 MG TAB PO SCH (09:00)
[2022-03-29] MEDS: ROSUVASTATIN CALCIUM 20 MG TAB PO SCH (10:21)
[2022-03-29] MEDS: PANTOprazole 40 MG TAB PO SCH (10:21)
[2022-03-29] MEDS: MULTIVITAMIN TAB PO SCH (10:21)
[2022-03-29] MEDS: CHOLECALCIFEROL 1,000 UNITS 25 MCG TAB PO SCH (10:21)
[2022-03-29] MEDS: dexAMETHasone 6 MG in SYRINGE 0 ML IV SCH (10:22)
[2022-03-29] MEDS: ACETAMINOPHEN 500 MG TAB PO PRN ×2 (12:18→23:44)
--- NOTE | 2022-03-29 15:47 | Hospitalist Progress Note ---
Date of Service March 29, 2022 Assessment & Plan (1) Lumbar stenosis with neurogenic claudication: (2) Hypertension: (3) Hyperlipidemia: (4) COPD (chronic obstructive pulmonary disease): (5) CKD (chronic kidney disease), stage III: (6) Tobacco use disorder: (7) Acid reflux: Plan per SAHIL Noriega notes with addendum: Ms. Josfea oliver is an 86-year-old female who is a patient of Dr. Potts's and underwent a T11-T12 and L1 spinal decompression and fusion after failed conservative outpatient treatment. Patient complaints include pain and nausea postoperatively. Lumbar stenosis with neurogenic claudication: Possible acute blood loss anemia next POD# 0 s/p T11-T12; L1 decompression and fusion with Dr. Potts. Per ortho for pain control, wound care, anticoagulation and activities. EBL: 150mL JANELLE x1 intact draining bright red blood -- Postop day #1 Stable overall Hemoglobin from 13, now 11.8 Asymptomatic Monitor hemoglobin Transfuse if hemoglobin below 7 Hold blood pressure medications as blood pressures borderline low Hypertension: Blood pressure on the lower side Hold amlodipine and lisinopril Hyperlipidemia: Stable; continue rosuvastatin COPD: Stable on 2 LNC; does not wear supplemental O2 at home. No current exacerbation. Continue fluticasone daily Continue albuterol as needed CKD stage III: Baseline creatinine 0.8 Creatinine stable Tobacco use disorder: Smokes less than 1/2 ppd Pt declines having a Nicotine patch Encouraged smoking cessation GERD: Stable; continue omeprazole Disposition: PCP: Dr. Wang VTE prophylaxis: Teds and SCDs per [facility] CODE STATUS: Full code Point of Contact: Pt Fletcher; phone 3 per contact tab Thank you for this consultation. We will follow the patient with you during their hospital stay. You can reach a [facility] via pager @ [phone]. Admission and Anticipated Discharge Date Admission Date: March 28, 2022 Subjective Follow-up status post back surgery, etc. Seen resting in bed, watching TV, in good spirits States she feels fine overall Ambulating with no issues Very mild soreness of the back No chest pain, shortness of breath, palpitations, dizziness No nausea vomiting, abdominal pain No other symptoms Review of Systems Review of Systems: all noted and negative except for above Physical Exam Physical Exam: General- oriented x 3, not in distress, speaks in sentences with no effort or accessory muscle use Eyes- anicteric Neck- no JVD Lungs- clear breath sounds bilaterally, no rales/wheezes Heart- normal rate, regular rhythm; no murmurs Abdomen- normal bowel sounds, nondistended, soft, nontender Extremities- no pretibial edema, no calf tenderness Neuro- alert, oriented x 3; no gross focal neurologic deficits Skin- warm & dry Results & Data Results & Data ([facility]) Vital Signs (Past 12 Hours) Vital Signs Temp Pulse Resp BP BP Pulse Ox O2 Del Method 03/29/22 15:08 36.8 C 62 18 115/68 94 03/29/22 10:55 36.4 C L 65 14 113/71 96 Room Air 03/29/22 10:09 116/74 03/29/22 07:47 93/56 L 03/29/22 06:46 36.6 C 62 16 153/93 H 95 Room Air all noted and reviewed including below
[2022-03-29] MEDS: CYANOCOBALAMIN (B-12) 500 MCG TABLET PO SCH (20:53)
[2022-03-29] MEDS: DOCUSATE SODIUM/SENNA 50/8.6MG TAB PO SCH (20:54)
[2022-03-30] MEDS: POLYETHYLENE (MIRALAX) 17 GM PACK PO SCH ×2 (05:58→12:47)
[2022-03-30] MEDS: CHOLECALCIFEROL 1,000 UNITS 25 MCG TAB PO SCH (08:37)
[2022-03-30] MEDS: MULTIVITAMIN TAB PO SCH (08:37)
[2022-03-30] MEDS: ROSUVASTATIN CALCIUM 20 MG TAB PO SCH (08:37)
[2022-03-30] MEDS: PANTOprazole 40 MG TAB PO SCH (08:37)
[2022-03-30] MEDS: ACETAMINOPHEN 500 MG TAB PO PRN (08:41)
[2022-03-30] MEDS: dexAMETHasone 6 MG in SYRINGE 0 ML IV SCH (08:43)
--- NOTE | 2022-03-30 10:22 | Discharge Summary ---
Date of Service March 30, 2022 Admission HPI Per Admitting Provider This is an 86-year-old male that presents with chronic persistent back and bilateral leg pain. Failed course of nonoperative care she is here for surgical invention. Principal Diagnosis Thoracic spinal stenosis with myelomalacia Discharge Data Allergies Allergy/AdvReac Type Severity Reaction Status Date / Time imipenem Allergy Severe Dyspnea Verified 03/28/22 08:52 meropenem Allergy Severe Dyspnea Verified 03/28/22 08:52 penicillamine Allergy Severe Dyspnea Verified 03/28/22 08:52 ranitidine Allergy Severe Dyspnea Verified 03/28/22 08:52 ampicillin Allergy Intermediate Dyspnea, Verified 03/28/22 08:52 hives azithromycin Allergy Intermediate Hives, Verified 03/28/22 08:52 angioedema Cephalosporins Allergy Intermediate Hives Verified 03/28/22 08:52 cilastatin Allergy Intermediate Dyspnea Verified 03/28/22 08:52 Macrolide Antibiotics Allergy Intermediate Hives, Verified 03/28/22 08:52 angioedema Penicillins Allergy Intermediate Hives Verified 03/28/22 08:52 adhesive Allergy Mild Rash Verified 03/28/22 08:52 Carbapenems Allergy Unknown Dyspnea Verified 03/28/22 08:52 Consultations 03/28/22 13:49 Consult Hospitalist Routine Procedures Performed Operation Date: 03/28/22 10:05 Actual Procedures p T11-L1 Decompression and Fusion, Spinal Cord Monitoring(Not Applicable) - Bladimir Potts DO Ordered Studies 03/28/22 10:05 FL lumbar spine 2-3V Routine Hospital Course (1) Lumbar stenosis with neurogenic claudication: Patient went thoracic decompression fusion tolerated so was taken to orthopedic for postoperative. Postop day 1 she was up and ambulating progressed to postop day #2. Pain well controlled The testing JANELLE drain decreased appropriately. Subsequently discharged home. Discharge orders instructions from the chart for further review. Total Time Total Time Spent Total Time Spent (In Minutes): 20 minutes Discharge Plan Discharge Items Patient Disposition: Home - Self-Care Reason For Visit: Spinal Stenosis, Lumbar Region with Neurogenic Cla Discharge Diagnosis: Thoracic spinal stenosis with myelopathy Activity: As commented below Non-emergency contact: Primary Care Provider Call non-emergency contact if: you have any medication questions Follow-up/Referrals: Ni Pruitt MD [Primary Care Provider] - Diet: Regular Addtl Attending Provider Instructions: ACTIVITY RECOMMENDATIONS: SELF CARE INSTRUCTIONS AFTER THORACIC/LUMBAR FUSIONS 1. You may walk to your tolerance. It is good exercise for your legs and back. Expect some back and intermittent leg aches and pains. 2. You may perform "counter-top" level activities (make a sandwich, bassam with a project, etc.). 3. No bending or lifting of more than 10 pounds or back twisting of any nature (roll like a log when turning in bed). 4. You may ride in a car for 20-30 minutes at a time. No driving until after your first visit with your doctor. 5. Frequent changes of position and restricting sitting to 30 minutes at a time will help limit the amount of back spasms and stiffness you may experience. 6. You may discontinue the use of ambulatory aids (cane, crutches, etc.) once your strength and confidence allow. 7. You may library technology instructor the shower and let water strike your incision when you arrive home at least once daily. Do not take a tub bath, sit in a hot tub or go into a swimming pool until after your first recheck in the office. SPECIAL CARE INSTRUCTIONS: VERY IMPORTANT TO READ AND REVIEW A. Your surgical incision has been closed with a cosmetic suture under the skin that will dissolve in about 6 weeks. In 14 days, you can use a pair of clean scissors and cut the suture that is left outside of the skin at the ends of your incision. 1. The small skin tapes can be removed 7 days after surgery if they have not fallen off by that point. 2. You may keep the wound open to air as much as possible to promote healing after post-op day number 5 unless told otherwise by your doctor. 3. If you think the wound looks like it is becoming infected (redness or worsening drainage) and/or you are experiencing fever, chill or worsening back pain and muscle spasms, contact the office so that we may evaluate you as soon as possible. B. Complications are uncommon, but please contact us if you have any signs or symptoms of: 1. wound infection (fever higher than 102.5 degrees F, redness, separation of wound, drainage, or increasing pain from the incision) 2. blood clots in legs (pain, swelling, redness and warmth in legs) 3. urinary tract infection (fever higher than 102.5 degrees F, burning upon urination or increased frequency of urination) 4. nerve problems (inability to walk on your toes or heels, numbness, loss of bowel or bladder control) 5. any other symptoms that concern you C. Please call the office at if you have any concerns or questions about your operation or recovery. D. No smoking! Smoking drastically decreases the chance of a solid fusion. E. Do not take any anti-inflammatory medications (Indocin, Advil, Motrin, Aspirin, Naprosyn, etc.) as these may inhibit the chance of a solid fusion. Tylenol is okay to take for pain. MANAGING PAIN AFTER SPINAL SURGERY 1. Narcotic medication is intended for short-term use and will be provided for surgical pain. Surgical pain usually lasts for a period of 4-6 weeks. Narcotic medication includes Percocet, Vicodin, Darvocet, Tylenol #3 or Lortab. 2. Longer-term pain is more appropriately treated with non-narcotic medication such as Tylenol ES. 3. Muscle spasm is not appropriately treated with narcotics. Muscle relaxers such as Soma, Flexeril or Skelaxin can be used along with Tylenol ES. 4. Remember that we all live with some "aches and pains". This is not unusual or uncommon after an injury or as we get older. a. Back pain is expected and may include muscle spasms for 4 to 6 weeks after surgery. The pain should gradually improve. If the pain worsens for no apparent reason, please contact the office. b. Intermittent leg pain may also be experienced and should not be concerned about unless it worsens for no apparent reason. If so, please contact the office. 5. We will provide appropriate medication within the normal guidelines of their prescribed use. We will also be very cautious and aware of potential abuse and extended duration of patients' medication needs. a. Pain medications are for your comfort and to assist with sleep and rest so that the tissue can heal. They are not provided in order to return to normal activity and should not be used through the day. To do so or worsening pain at night can result from ongoing tissue damage and development of tolerance to the prescribed medicine. 6. Please allow 2-3 days to process refills. Prescriptions will not be mailed but must be picked up at the office. FOLLOW UP VISIT: Keep your scheduled follow-up appointment. Any questions, please call the office at . Pending Studies at Discharge: No Stand-Alone Forms: My [facility], Smoking Cessation Medications and DC Order Prescriptions: New oxycodone 5 mg tablet 5 mg PO Q6H PRN (Reason: pain, severe) Qty: 30 0RF tramadol 50 mg tablet 50 mg PO Q6H PRN (Reason: pain, moderate) Qty: 30 0RF Continued multivitamin Tablet 1 tab PO QAM Label Comments: NOT EVERY DAY cyanocobalamin (vitamin B-12) [Vitamin B-12] 1,000 mcg Tablet 1,000 mcg PO PM lisinopril 40 mg Tablet 40 mg PO QAM fluticasone propionate 50 mcg/actuation Froid,Suspension 2 spray INTRANASAL QAM PRN (Reason: Nasal Congestion) rosuvastatin [Crestor] 20 mg Tablet 20 mg PO QAM cholecalciferol (vitamin D3) [Vitamin D3] 25 mcg (1,000 unit) Tablet,Chewable 25 mcg PO QAM oxycodone 5 mg Tablet 5 mg PO Q4H MDD 6 TABS/24 HOURS PRN (Reason: pain) Qty: 30 0RF omeprazole 40 mg capsule,delayed release(DR/EC) 40 mg PO QAM amlodipine 5 mg Tablet 5 mg PO QAM acetaminophen [Tylenol Extra Strength] 500 mg Tablet 500 mg PO QID PRN (Reason: Pain) albuterol 90 mcg/actuation Aerosol 90 mcg INHALATION Q4 PRN (Reason: Shortness Of Breath Or Wheezing) Stool Softener 50 mg Capsule 50 mg PO DAILY Discharge Orders: Discharge Order (Routine); Ordered 03/30/22 Ordered By: Samson Potts Admission Data Admit Date/Time: 03/28/22 12:10 Attending Provider: Brennan Rosas Admit Provider: Samson Potts Primary Care Provider: Ni Pruitt Other Providers: Magui De Leon ; Samson Potts
--- NOTE | 2022-03-30 18:19 | Hospitalist Progress Note ---
Date of Service March 30, 2022 Assessment & Plan (1) Lumbar stenosis with neurogenic claudication: (2) Hypertension: (3) Hyperlipidemia: (4) COPD (chronic obstructive pulmonary disease): (5) CKD (chronic kidney disease), stage III: (6) Tobacco use disorder: (7) Acid reflux: Plan per SAHIL Noriega notes with addendum: Ms. Josefa oliver is an 86-year-old female who is a patient of Dr. Potts's and underwent a T11-T12 and L1 spinal decompression and fusion after failed conservative outpatient treatment. Patient complaints include pain and nausea postoperatively. Lumbar stenosis with neurogenic claudication: Possible acute blood loss anemia next POD# 0 s/p T11-T12; L1 decompression and fusion with Dr. Potts. Per ortho for pain control, wound care, anticoagulation and activities. EBL: 150mL JANELLE x1 intact draining bright red blood -- Postop day #2 Remains stable overall Hemoglobin from 13, to 11.8 Asymptomatic Monitor hemoglobin Transfuse if hemoglobin below 7 Hypertension: Advised to continue lisinopril Hold amlodipine to avoid hypotension Follow-up with PCP in 1 week Hyperlipidemia: Stable; continue rosuvastatin COPD: Stable on 2 LNC; does not wear supplemental O2 at home. No current exacerbation. Continue fluticasone daily Continue albuterol as needed CKD stage III: Baseline creatinine 0.8 Creatinine stable Tobacco use disorder: Smokes less than 1/2 ppd Pt declines having a Nicotine patch Encouraged smoking cessation GERD: Stable; continue omeprazole Disposition: PCP: Dr. Wang VTE prophylaxis: Teds and SCDs per [facility] CODE STATUS: Full code Thank you for this consultation. We will follow the patient with you during their hospital stay. You can reach a member of the [facility] via pager @ [phone]. Admission and Anticipated Discharge Date Admission Date: March 28, 2022 Subjective Follow-up status post back surgery Etc. Seen resting in chair, comfortable, not distressed Minimal back pain, ambulating with no problems no chest pain, dyspnea, palpitations, dizziness No other symptoms Review of Systems Review of Systems: all noted and negative except for above Physical Exam Physical Exam: General- oriented x 3, not in distress, speaks in sentences with no effort or accessory muscle use Eyes- anicteric Neck- no JVD Lungs- clear breath sounds bilaterally, no rales/wheezes Heart- normal rate, regular rhythm; no murmurs Abdomen- normal bowel sounds, nondistended, soft, nontender Extremities- no pretibial edema, no calf tenderness Neuro- alert, oriented x 3; no gross focal neurologic deficits Skin- warm & dry Results & Data Results & Data ([facility]) Vital Signs (Past 12 Hours) Vital Signs Temp Pulse Resp BP Pulse Ox O2 Del Method 03/30/22 07:39 36.7 C 63 18 117/75 95 Room Air all noted and reviewed including below
== END 2022-03-30 13:57 | disposition home or self-care (01) | DRG 454 ==
LOC: ASU 08:31 → SUATTDRO 12:10 → PACUINP 12:10 → 3E 14:23

== ENCOUNTER 2024-07-03 15:57 | Inpatient (IN) ==
[2024-07-03 16:59] LABS: Hematocrit (blood only) 31.7 % (37.0-47.0); Hemoglobin 10.2 g/dl (12.0-16.0); Mean Corpuscular Hemoglobin 27.9 pg (25.0-34.0); Mean Corpuscular Hgb Conc 32.2 g/dL (32.0-36.0); Mean Corpuscular Volume 86.6 fL (80.0-100.0); Mean Platelet Volume 10.2 fL (9.4-12.4); Platelet Count 209 K/uL (130-400); RDW Coefficient of Variation 15.1 % (11.5-14.5); RDW Standard Deviation 47.6 fL (36.4-46.3); Red Blood Count 3.66 M/uL (4.20-5.40); White Blood Count 6.36 K/ul (4.8-10.8)
[2024-07-03 17:12] LABS: Albumin Globulin Ratio 1.3 (0.9-2); Bilirubin,Total 0.5 mg/dl (0.2-1.0); Calcium 9.2 mg/dl (8.6-10.3); Creatinine Clr Calc Pharmacy 38.8 ml/min; Potassium 4.2 mmol/L (3.5-5.1)
[2024-07-03 17:26] LABS: Partial Thromboplastin Time 26 Seconds (21-31); Prothrombin Time 11.1 Seconds (9.0-12.0)
[2024-07-03 19:14] LABS: Appearance Urine Clear (Clear); Bacteria Urine Automated None Seen (None Seen); Bilirubin Urine Negative (Negative); Blood Urine Negative (Negative); Cast Urine Automated 0-2 /lpf (0-2); Color Urine Yellow; Glucose Urine UA Negative (Negative); Ketones Urine Trace (Negative); Leukocyte Esterase Urine 1+ (Negative); Nitrite Urine Negative (Negative); Protein Urine Negative (Negative); RBC Urine Automated 0-2 /hpf (0-2); Urobilinogen Urine Negative (Negative); WBC Urine Automated 0-5 /hpf (0-5); pH Urine 5.5 (4.5-7.5)
[2024-07-03] MEDS: PANTOprazole 80 MG in DEXTROSE 5% 100 ML IV ONE (19:30)
[2024-07-03] MEDS: PANTOprazole 40 MG in DEXTROSE 5% MINI-B 100 ML IV SCH (19:49)
[2024-07-03] MEDS: PANTOPRAZOLE BOLUS/DRIP IV STA (19:51)
--- NOTE | 2024-07-03 20:05 | History & Physical Report ---
Date of Service July 03, 2024 Assessment & Plan (1) GI bleed: (2) PAD (peripheral artery disease): (3) Hypertension: (4) Hyperlipidemia: (5) CKD (chronic kidney disease), stage III: (6) COPD (chronic obstructive pulmonary disease): (7) Tobacco use disorder: Plan: HPI, ROS, PE, med rec completed by Margaret Mitchell PA-C. Assessment and Plan per Dr Wahl. See addendum. 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 Patient states for past week has been feeling more tired than usual and past week having some nausea. Today ate fish dinner at lunchtime. States has had 2 episodes of black color formed stool today. Denies abdominal pain. States was having dysuria a week ago and diagnosed with UTI and has been on Bactrim for 4 days with resolution of dysuria. Denies fever/chills, diaphoresis, hematuria, hematemesis, hematochezia, MCINTOSH, dizziness, syncope, CP, SOB, cough, sore throat, rhinorrhea, abdominal pain, paresthesias, extremity weakness, extremity edema, rashes. 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 [place] [facility] [place] anticoagulation with Eliquis for 3 months was recommended. Unfortunately patient developed retroperitoneal hematoma and anemia with Hgb: 6.2 on 04/21/24 and was transferred to [facility] [facility] [place] 04/24/24 with Eliquis resumed. Per chart review outpatient vascular surgery follow [place] [facility] [place] 06/19/24 had recommended continuation of Plavix, Eliquis and rosuvastatin 05/25/24 Hgb: 11.5 04/29/24 Hgb: 9.1 04/24/24 Hgb: 7.7 08/29/21 EGD: Esophageal mucosal changes classified as Contreras's, medium size hiatal hernia 09/30/2020 EGD: Esophagitis with diffuse mucosal bleed oozing found in lower third of esophagus 07/27/2020 colonoscopy: 1 small polyp in the cecum, 1 small polyp at 40 cm proximal to anus were resected and per path results cecum polyp with fragments of tubular adenoma and no evidence of high-grade dysplasia, polyp at 40 cm tubular adenoma, no evidence of high-grade dysplasia 06/25/24 urine culture +>100,000 colonies/ml E coli. pansensitive. Since starting antibiotic dysuria has resolved. 06/30/24 started on Bactrim for 7 day course. Allergies Allergy/AdvReac Type Severity Reaction Status Date / Time imipenem Allergy Severe Dyspnea Verified 07/03/24 19:56 meropenem Allergy Severe Dyspnea Verified 07/03/24 19:56 penicillamine Allergy Severe Dyspnea Verified 07/03/24 19:56 ranitidine Allergy Severe Dyspnea Verified 07/03/24 19:56 ampicillin Allergy Intermediate Dyspnea, Verified 07/03/24 19:56 hives azithromycin Allergy Intermediate Hives, Verified 07/03/24 19:56 angioedema Cephalosporins Allergy Intermediate Hives Verified 07/03/24 19:56 cilastatin Allergy Intermediate Dyspnea Verified 07/03/24 19:56 Macrolide Antibiotics Allergy Intermediate Hives, Verified 07/03/24 19:56 angioedema Penicillins Allergy Intermediate Hives Verified 07/03/24 19:56 adhesive Allergy Mild Rash Verified 07/03/24 19:56 Carbapenems Allergy Unknown Dyspnea Verified 07/03/24 19:56 Home Medications Medication Instructions Recorded Confirmed Type cyanocobalamin (vitamin B-12) 1,000 mcg PO PM 12/14/18 07/03/24 History 1,000 mcg tablet (Vitamin B-12) fluticasone propionate 50 2 spray intranasal QAM PRN Nasal 12/14/18 07/03/24 History mcg/actuation nasal Congestion spray,suspension rosuvastatin 20 mg tablet (Crestor) 20 mg PO QAM 11/12/19 07/03/24 History cholecalciferol (vitamin D3) 25 25 mcg PO QAM 12/10/20 02/07/25 History mcg (1,000 unit) chewable tablet (Vitamin D3) omeprazole 40 mg capsule,delayed 40 mg PO QAM 09/29/21 07/03/24 History release acetaminophen 500 mg tablet 500 mg PO QID PRN Pain 02/27/22 07/03/24 History (Tylenol Extra Strength) docusate sodium 50 mg capsule 50 mg PO DAILY 03/28/22 07/03/24 History (Stool Softener) amlodipine 5 mg tablet 5 mg PO DAILY 04/21/24 07/03/24 History apixaban 5 mg tablet (Eliquis) 5 mg PO 2XD 04/21/24 07/03/24 History clopidogrel 75 mg tablet 75 mg PO DAILY 04/21/24 07/03/24 History lisinopril 20 mg tablet 20 mg PO DAILY 07/03/24 07/03/24 History sulfamethoxazole 800 1 tab PO 2XD 07/03/24 07/03/24 History mg-trimethoprim 160 mg tablet Past Med/Surg History Problem List (Updated 07/03/24 @ 21:36 by John Villa MD) PAD (peripheral artery disease) GI bleed (Acute) 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 Tobacco use disorder Hyperlipidemia Hypertension controlled, stable per pt Acid reflux controlled, stable per pt CKD (chronic kidney disease), stage III COPD (chronic obstructive pulmonary disease) stable per pt, last rescue inhaler use 1 week ago Medical History Elevated hemidiaphragm L History of GI bleed 2020- DIRECTLY AFTER SHOULDER SURGERY History of COVID-19 10/2021 cough- no hospitalization, no current issues Post-traumatic osteoarthritis, left shoulder Chronic constipation Hx of cancer of uterus s/p hysterectomy with USO Carotid stenosis 50-69% right sided stenosis per 09/2018 doppler report but personal review of imaging by vascular felt that carotid artery stenosis <50% b/l - advised by vascular to f/u PRN; denies dizziness, lightheadedness, visual changes, headaches or syncope History of left shoulder fracture 07/2019 - medically managed until this upcoming surgery Surgical History History of esophagogastroduodenoscopy (EGD) Fusion of spine Left SI joint fusion: 06/14/2020: Grade 2 view, MAC 3.0, ETT 7.0 at [facility] Hx of tooth extraction Hx of surgical procedure Right SI joint fusion History of cataract surgery R/L History of colonoscopy History of surgery "Windpipe growth" removal History of tonsillectomy H/O hemorrhoidectomy History of appendectomy History of cholecystectomy H/O: hysterectomy + USO Hx of fusion of cervical spine History of lumbar fusion Family History Other Heart disease Social History Smoking Status: Current every day smoker Tobacco Type: Cigarettes Cigarettes Per Day: 1/2 ppd; Second Hand Exposure: No; Do You Dip or Chew Tobacco: No; Hx Alcohol Use: No Hx Substance Use: No Preferred Language: Swedish Communication Ability: Effective Claims Representative Required: No Beliefs That Will Affect Care: None marital status: Current Living Situation: Spouse Feels Safe at Home: Yes Assistive Devices: Denture - Upper and Denture - Lower Review of Systems Review of Systems: All systems reviewed & are unremarkable except as noted in HPI & below Physical Exam Physical Exam: General: no acute distress, WDWN Head: normocephalic, atraumatic Eyes: conjunctiva non-injected, anicteric ENT: normal inspection external ears, nose, mucous membranes moist Neck: supple, trachea midline Lungs: clear, no respiratory distress, no wheezing/rhonchi/rales CV: RRR, no murmur, no pretibial edema Abd: normal BS, soft, non-tender to palpation Ext: no cyanosis, no erythema, no calf tenderness Neuro: A&O x 3, no focal deficits noted, normal affect Skin: warm, dry Results & Data Results & Data Vital Signs (Past 12 Hours) Vital Signs Temp Pulse Pulse Resp BP BP Pulse Ox 07/03/24 20:00 66 18 134/72 96 07/03/24 19:50 07/03/24 19:00 74 18 160/83 H 99 07/03/24 16:00 36.6 C 79 20 142/78 H 97 O2 Del Method 07/03/24 20:00 Room Air 07/03/24 19:50 Room Air 07/03/24 19:00 Room Air 07/03/24 16:00 Room Air Laboratory Results Short CBC 07/03/24 Range/Units 16:43 WBC 6.36 (4.8-10.8) K/ul Hgb 10.2 L (12.0-16.0) g/dl Hct 31.7 L (37.0-47.0) % Plt Count 209 (130-400) K/uL BMP 07/03/24 16:43 Sodium 140 Potassium 4.2 Chloride 108 H Carbon Dioxide 26 BUN 15 Creatinine 1.00 Glucose 114 H Calcium 9.2 Liver Function 07/03/24 Range/Units 16:43 Total Bilirubin 0.5 (0.2-1.0) mg/dl AST 41 H (13-39) U/L ALT 48 (7-52) U/L Alkaline Phosphatase 119 H (34-104) U/L Albumin 4.0 (3.4-5.0) gm/dl Urine 07/03/24 Range/Units 18:55 Urine Color Yellow Urine Appearance Clear (Clear) Urine pH 5.5 (4.5-7.5) Ur Specific [place] 1.020 (1.000-1.030) Urine Protein Negative (Negative) Urine Glucose (UA) Negative (Negative) Supervising Physician Co-Signing Physician Notes IM ATTENDING : Patient seen and examined. History obtained from patient, family, and records. Concur with salient points upon review of preceding documentation by Ms. Margaret Mitchell PA-C. I take responsibility for plan of care below. FINAL ASSESSMENT AND PLAN as follows : UGIB History Contreras's esophagus/PUD as per records History PVD status post surgery on antiplatelet and Eliquis Rx Acute on chronic anemia (patient baseline hemoglobin of 11) secondary to above Hypertension, stable Hyperlipidemia on statin Rx COPD, lung status at baseline Complicated UTI, improved on outpatient Bactrim Rx Ongoing tobacco abuse Admit to medical telemetry Hold antiplatelet and NOAC Rx for now given UGIB IV PPI GI consult re: UGIB N.p.o. in anticipation of endoscopy Follow H&H, transfuse PRBC to maintain hemoglobin of at least 8 Complete Bactrim course Nicotine patch as needed DVT prophylaxis. Teds given GI bleed; SCDs contraindicated with history of PVD Full code I spent a total of 30 minutes coordinating, documenting, and providing care for this patientexcludingtime spent by another provider/QHP. Text document was generated using [employer] voice recognition software. It may contain grammatical or spelling errors. Kindly contact undersigned for clarification of any documentation item in question.
[2024-07-03 20:32] LABS: Magnesium 1.9 mg/dl (1.7-2.4)
[2024-07-03] MEDS: SODIUM CHLORIDE 0.9% 1,000 ML IV ONE (20:39)
[2024-07-03] MEDS ORDERED: FLUTICASONE PROPIONATE NA SPR 16 GM BTL PRN (21:31)
[2024-07-03] MEDS ORDERED: ACETAMINOPHEN 325 MG TAB PO PRN (21:32)
[2024-07-03] MEDS ORDERED: PROMETHAZINE 6.25 MG/50.25 ML BAG IV PRN (21:32)
--- NOTE | 2024-07-03 21:34 | Emergency Department Note ---
History of Present Illness General Chief complaint: Bleeding Stated complaint: RECTAL BLEEDING, Time Seen by Provider: 07/03/24 18:18 History of Present Illness Provider Complaint: + melena Onset (ago): 1 day(s) Pain Consistency: + constant Relieved By: + none Exacerbated By: + bowel movement Context: + history of GI bleed and + anticoagulant use (Eliquis and Plavix); no rectal trauma Associated symptoms: no abdominal pain, no nausea, no vomiting, no epistaxis, no fever or no chills Home Medications Medication Instructions Recorded Confirmed Type cyanocobalamin (vitamin B-12) 1,000 mcg PO PM 12/14/18 07/03/24 History 1,000 mcg tablet (Vitamin B-12) fluticasone propionate 50 2 spray intranasal QAM PRN Nasal 12/14/18 07/03/24 History mcg/actuation nasal Congestion spray,suspension rosuvastatin 20 mg tablet (Crestor) 20 mg PO QAM 11/12/19 07/03/24 History cholecalciferol (vitamin D3) 25 25 mcg PO QAM 05/05/20 07/03/24 History mcg (1,000 unit) chewable tablet (Vitamin D3) omeprazole 40 mg capsule,delayed 40 mg PO QAM 09/29/21 07/03/24 History release acetaminophen 500 mg tablet 500 mg PO QID PRN Pain 02/27/22 07/03/24 History (Tylenol Extra Strength) docusate sodium 50 mg capsule 50 mg PO DAILY 03/28/22 07/03/24 History (Stool Softener) amlodipine 5 mg tablet 5 mg PO DAILY 04/21/24 07/03/24 History apixaban 5 mg tablet (Eliquis) 5 mg PO 2XD 04/21/24 07/03/24 History clopidogrel 75 mg tablet 75 mg PO DAILY 04/21/24 07/03/24 History lisinopril 20 mg tablet 20 mg PO DAILY 07/03/24 07/03/24 History sulfamethoxazole 800 1 tab PO 2XD 07/03/24 07/03/24 History mg-trimethoprim 160 mg tablet Allergies Allergy/AdvReac Type Severity Reaction Status Date / Time imipenem Allergy Severe Dyspnea Verified 07/03/24 19:56 meropenem Allergy Severe Dyspnea Verified 07/03/24 19:56 penicillamine Allergy Severe Dyspnea Verified 07/03/24 19:56 ranitidine Allergy Severe Dyspnea Verified 07/03/24 19:56 ampicillin Allergy Intermediate Dyspnea, Verified 07/03/24 19:56 hives azithromycin Allergy Intermediate Hives, Verified 07/03/24 19:56 angioedema Cephalosporins Allergy Intermediate Hives Verified 07/03/24 19:56 cilastatin Allergy Intermediate Dyspnea Verified 07/03/24 19:56 Macrolide Antibiotics Allergy Intermediate Hives, Verified 07/03/24 19:56 angioedema Penicillins Allergy Intermediate Hives Verified 07/03/24 19:56 adhesive Allergy Mild Rash Verified 07/03/24 19:56 Carbapenems Allergy Unknown Dyspnea Verified 07/03/24 19:56 Past Med/Surg History Problem List (Updated 07/03/24 @ 21:36 by John Villa MD) PAD (peripheral artery disease) GI bleed (Acute) 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 Tobacco use disorder Hyperlipidemia Hypertension controlled, stable per pt Acid reflux controlled, stable per pt CKD (chronic kidney disease), stage III COPD (chronic obstructive pulmonary disease) stable per pt, last rescue inhaler use 1 week ago Medical History Elevated hemidiaphragm L History of GI bleed 2020- DIRECTLY AFTER SHOULDER SURGERY History of COVID-19 10/2021 cough- no hospitalization, no current issues Post-traumatic osteoarthritis, left shoulder Chronic constipation Hx of cancer of uterus s/p hysterectomy with USO Carotid stenosis 50-69% right sided stenosis per 09/2018 doppler report but personal review of imaging by vascular felt that carotid artery stenosis <50% b/l - advised by vascular to f/u PRN; denies dizziness, lightheadedness, visual changes, headaches or syncope History of left shoulder fracture 07/2019 - medically managed until this upcoming surgery Surgical History History of esophagogastroduodenoscopy (EGD) Fusion of spine Left SI joint fusion: 06/14/2020: Grade 2 view, MAC 3.0, ETT 7.0 at [facility] Hx of tooth extraction Hx of surgical procedure Right SI joint fusion History of cataract surgery R/L History of colonoscopy History of surgery "Windpipe growth" removal History of tonsillectomy H/O hemorrhoidectomy History of appendectomy History of cholecystectomy H/O: hysterectomy + USO Hx of fusion of cervical spine History of lumbar fusion Family History Other Heart disease Social History Smoking Status: Current every day smoker Tobacco Type: Cigarettes Cigarettes Per Day: 10 PER DAY; Second Hand Exposure: No; Do You Dip or Chew Tobacco: No; Hx Alcohol Use: No Hx Substance Use: No Preferred Language: Wolof Communication Ability: Effective Park Guard Required: No Beliefs That Will Affect Care: None marital status: Current Living Situation: Spouse Feels Safe at Home: Yes Assistive Devices: Walker Physical Exam 2 Vital Signs: Vital Signs - 24 hr 07/03/24 16:00 07/03/24 19:00 07/03/24 19:50 Temperature 36.6 C Temperature Source Oral Pulse Rate 79 Pulse Rate [Radial ] 74 Pulse Rhythm Regular Pulse Rhythm [Radi al] Regular Pulse Strength Normal Respiratory Rate 20 18 Respiratory Effort / Characteristics Non-Labored Sponta neous Non-Labored Respiratory Depth Normal Normal Respiratory Patter n Regular Regular Blood Pressure 142/78 H Blood Pressure [Le ft Arm] 160/83 H Blood Pressure Venecia n 99 Blood Pressure Venecia n [Left Arm] 108 Blood Pressure Pos ition Sitting Blood Pressure Pos ition [Left Arm] Pulse Oximetry 97 99 Oxygen Delivery Me thod Room Air Room Air Room Air Sepsis Recent Feve r Within 48 Hours No Sepsis New/Unexpla ined Change in Men naga Status No Sepsis Action Take n by Nursing No Action Required 07/03/24 20:00 Temperature Temperature Source Pulse Rate Pulse Rate [Radial ] 66 Pulse Rhythm Pulse Rhythm [Radi al] Pulse Strength Respiratory Rate 18 Respiratory Effort / Characteristics Respiratory Depth Respiratory Patter n Blood Pressure Blood Pressure [Le ft Arm] 134/72 Blood Pressure Venecia n Blood Pressure Venecia n [Left Arm] 92 Blood Pressure Pos ition Blood Pressure Pos ition [Left Arm] Semi-fowlers Pulse Oximetry 96 Oxygen Delivery Me thod Room Air Sepsis Recent Feve r Within 48 Hours Sepsis New/Unexpla ined Change in Men naga Status Sepsis Action Take n by Nursing Physical Exam: Physical Exam GENERAL: oriented to person, place, and time. appears well-developed and well- nourished. She does not appear distressed. HENT: Exam performed. -Head: Normocephalic and atraumatic. -Right Ear: External ear normal. No mastoid erythema -Left Ear: External ear normal. No mastoid erythema -Mouth/Throat: The oropharynx is clear and moist. No trismus in the jaw. No dental abscesses or uvula swelling. No oropharyngeal exudate or tonsillar abscesses. EYES: Conjunctivae and EOM are normal.Right eye exhibits no discharge. Left eye exhibits no discharge. No scleral icterus. NECK: Normal range of motion. Neck supple. No JVD present. No tracheal deviation and normal range of motion present. CV: Normal rate, regular rhythm, normal heart sounds and intact distal pulses. There is no peripheral edema. Palpable radial pulses bue. PULM/CHEST: Effort normal and breath sounds normal. No respiratory distress. No stridor. no wheezes.no rales. -Chest Wall: no tenderness to palpation ABD: The abdomen is soft. Bowel sounds are normal. no distension. No mass is present. There is no tenderness. There is no rebound, no guarding, no Sandhu's sign and no tenderness at McBurney's point. Rovsig negative Rectal: With female nursing spreader Naye at bedside. Patient is Hemoccult positive. MUSC/SKEL: Normal range of motion. There is no peripheral edema, tenderness or deformity. NEURO: Motor and sensation grossly intact. SKIN: Skin is warm and dry. not diaphoretic. PSYCH: normal mood and affect. Behavior is normal. Judgment and thought content normal. Course Course 1817: The patient was evaluated in room C8. A complete history and physical exam was performed Administered Medications Pantoprazole Sodium 40 mg/ (Dextrose) 100 mls @ 20 mls/hr IV Q5H HUNTER Stop: 08/02/24 19:14 Last Admin: 07/03/24 19:49 Dose: 8 mg/hr, 20 mls/hr Documented By: LCD Sodium Chloride (Nss) 1,000 mls @ 50 mls/hr IV .Q20H ONE Stop: 07/04/24 16:13 Last Admin: 02/07/25 20:39 Dose: 50 mls/hr Documented By: QASIM Discontinued Medications Pantoprazole Sodium 80 mg/ (Dextrose) 120 mls @ 480 mls/hr IV NOW ONE Stop: 07/03/24 19:10 Last Infusion: 07/03/24 19:49 Dose: Infused Documented By: Admin: 07/03/24 19:30 Dose: 480 mls/hr Documented By: QASIM Pantoprazole Sodium (Pantoprazole Bolus/Drip) 1 each IV NOW STA Stop: 07/03/24 18:57 Last Admin: 07/03/24 19:51 Dose: 1 each Documented By: QASIM Medical Decision Making Laboratory Data Attestation: I reviewed the patient's lab results. 07/03/24 16:43 07/03/24 16:43 Lab Results 07/03/24 07/03/24 07/03/24 Range/Units 16:43 16:49 18:55 WBC 6.36 (4.8-10.8) K/ul RBC 3.66 L (4.20-5.40) M/uL Hgb 10.2 L (12.0-16.0) g/dl Hct 31.7 L (37.0-47.0) % MCV 86.6 (80.0-100.0) fL MCH 27.9 (25.0-34.0) pg MCHC 32.2 (32.0-36.0) g/dL RDW Std Deviation 47.6 H (36.4-46.3) fL RDW Coeff of Devi 15.1 H (11.5-14.5) % Plt Count 209 (130-400) K/uL MPV 10.2 (9.4-12.4) fL PT 11.1 (9.0-12.0) Seconds INR 1.0 (0.9-1.1) APTT 26 (21-31) Seconds PTT Ratio 1.0 Sodium 140 (136-145) mmol/L Potassium 4.2 (3.5-5.1) mmol/L Chloride 108 H (98-107) mmol/L Carbon Dioxide 26 (21-32) mmol/L Anion Gap 6 (3-11) BUN 15 (6-23) mg/dl Creatinine 1.00 (0.6-1.2) mg/dl Est Cr Clr Drug Dosing 38.8 ml/min eGFR 54.53 BUN/Creatinine Ratio 15.0 (10-20) Glucose 114 H (70-99(Fasting)) mg/dl Calcium 9.2 (8.6-10.3) mg/dl Magnesium 1.9 (1.7-2.4) mg/dl Total Bilirubin 0.5 (0.2-1.0) mg/dl AST 41 H (13-39) U/L ALT 48 (7-52) U/L Alkaline Phosphatase 119 H (34-104) U/L Troponin I High Sens 7.0 (0-14) pg/ml Total Protein 7.0 (6.0-8.3) gm/dl Albumin 4.0 (3.4-5.0) gm/dl Globulin 3.0 (2.5-4.0) gm/dl Albumin/Globulin Ratio 1.3 (0.9-2) Urine Color Yellow Urine Appearance Clear (Clear) Urine pH 5.5 (4.5-7.5) Ur Specific Swink 1.020 (1.000-1.030) Urine Protein Negative (Negative) Urine Glucose (UA) Negative (Negative) Urine Ketones Trace H (Negative) Urine Blood Negative (Negative) Urine Nitrite Negative (Negative) Urine Bilirubin Negative (Negative) Urine Urobilinogen Negative (Negative) Ur Leukocyte Esterase 1+ H (Negative) Urine WBC (Auto) 0-5 (0-5) /hpf Urine RBC (Auto) 0-2 (0-2) /hpf U Hyaline Cast (Auto) 0-2 (0-2) /lpf U Epithel Cells (Auto) 3-5 H (0-2) /hpf Urine Bacteria (Auto) None Seen (None Seen) Blood Type O Positive Antibody Screen NEGATIVE ECG Data Attestation: I personally reviewed and interpreted this ECG as follows: Rate (beats per minute): 73 Rhythm: normal sinus Findings: no ST depression, no ST elevation or no prolonged QT Additional Comments: QRS 74 MDM Narrative Cardiac monitoring: An order was placed for continuous cardiac monitoring. The monitor shows a rate of 70 with sinus rhythm interpreted by me Patient was seen during a time of extreme volume and extreme acuity in the emergency department. Nursing triage protocols were initiated and labs were drawn by protocol in the triage area. Vital signs stable. Labs are unremarkable. Patient is Hemoccult positive. Patient be started on Protonix bolus and drip [facility] & Plan GI bleed Discharge Plan Visit Data Chief Complaint: Bleeding Stated Complaint: RECTAL BLEEDING, ED Provider: John Villa Discharge Problem: GI bleed Patient Disposition: Admitted As Inpatient Forms Stand Alone Forms: [facility] Prescriptions Prescriptions: No Action cyanocobalamin (vitamin B-12) [Vitamin B-12] 1,000 mcg Tablet 1,000 mcg PO PM fluticasone propionate 50 mcg/actuation [place],Suspension 2 spray INTRANASAL QAM PRN (Reason: Nasal Congestion) rosuvastatin [Crestor] 20 mg Tablet 20 mg PO QAM cholecalciferol (vitamin D3) [Vitamin D3] 25 mcg (1,000 unit) Tablet,Chewable 25 mcg PO QAM omeprazole 40 mg capsule,delayed release(DR/EC) 40 mg PO QAM acetaminophen [Tylenol Extra Strength] 500 mg Tablet 500 mg PO QID PRN (Reason: Pain) Stool Softener 50 mg Capsule 50 mg PO DAILY clopidogrel 75 mg tablet 75 mg PO DAILY amlodipine 5 mg tablet 5 mg PO DAILY Eliquis 5 mg tablet 5 mg PO 2XD Rx Instructions: current schedule: 2 tabs (10MG) po bid for 7 days then 1 tab (5MG) po bid sulfamethoxazole-trimethoprim 800-160 mg tablet 1 tab PO 2XD lisinopril 20 mg tablet 20 mg PO DAILY Referrals Referrals: Bharati Wang MD [Primary Care Provider] -
[2024-07-03 21:55] LABS: Hematocrit (blood only) 30.1 % (37.0-47.0); Hemoglobin 9.5 g/dl (12.0-16.0)
--- OUTSIDE RECORDS SUMMARY | 2024-07-03 22:57 | External Medical Summary | Summary of Care ---
Author Name Unknown Organization [facility] Address [address] [place] [address] Phone [phone] Care Team Providers Care Child Development Instructor Name Role Phone Bharati Wang MD Primary Care Provide r Reason for Visit * Reason Onset Date Comments Advice 06/25/2024 Encounter Details Date Type Department Care Team (Late st Contact Info) Description 06/25/2024 Telephone Family Medicine [address] [phone] Bharati Wang MD [address] [place] [address] [place] [address] Advice Allergies Active Allergy Reactions Criticality Noted Date Comments Ampicillin 09/23/2003 Hives/trouble breathing Azithromycin 09/24/2003 hives and angioedema Ranitidine 10/29/2002 rash documented as of this encounter (statuses as of 06/30/2024) Medications VITAMIN D 2000 UNITS PO CAPS Take 2,000 Units by mouth daily with dinner. 08/24/[address] ARTHRITIS PAIN 500 MG PO TABS Take by mouth. Active Cyanocobalamin 1000 MCG Oral Tablet Take 1 Tablet by mouth daily at noon. 10/31/2017 Active Loratadine 10 MG Oral Tablet (Claritin)Indic ations:Nasal congestion Take 1 Tablet by mouth every night at bedtime. 30 Tablet 11 04/17/2023 Active Fluticasone Propionate 50 MCG/ACT Nasal Suspension (Flonase)Indica tions:Nasal congestion USE ONE SPRAY IN each nostril IN THE MORNING AND in the evening 16 g 02/03/2024 Active Omeprazole 40 MG Oral Capsule Delayed Release (PriLOSEC)Indic ations:Contreras' s esophagus with dysplasia TAKE ONE CAPSULE BY MOUTH EVERY MORNING 100 Capsule 3 04/05/2024 Active amLODIPine Besylate 5 MG Oral Tablet (Norvasc)Indica tions:HTN, goal below 150/90 TAKE ONE TABLET BY MOUTH EVERY MORNING 90 Tablet 3 04/13/2024 Active Rosuvastatin Calcium 20 MG Oral Tablet (Crestor)Indica tions:Carotid stenosis, non-symptomatic , bilateral TAKE ONE TABLET BY MOUTH EVERY DAY 90 Tablet 3 04/13/2024 Active Clopidogrel Bisulfate 75 MG Oral Tablet (pLAVix)Indicat ions:Carotid-ca vernous fistula,Thrombo embolus (HCC) Take 1 Tablet by mouth in the morning. 30 Tablet 5 05/15/2024 Active Apixaban 5 MG Oral Tablet (Eliquis)Indica tions:Carotid-c avernous fistula,Thrombo embolus (HCC) Take 1 Tablet by mouth in the morning and 1 Tablet before bedtime. 60 Tablet 05/15/2024 Active Lisinopril 20 MG Oral Tablet (Prinivil)Indic ations:HTN, goal below 140/90 Take 1 Tablet by mouth in the morning. 90 Tablet 1 06/25/2024 Active Sulfamethoxazol e-Trimethoprim 800-160 MG Oral Tablet (Bactrim DS)Indications: Acute cystitis with hematuria Take 1 Tablet by mouth in the morning and 1 Tablet before bedtime. Do all this for 7 days. Until gone. 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 Gastro-esophageal reflux disease without esophag itis 03/02/2024 Contreras's esophagus without dysplasia 10/07/2020 Status post replacement of left shoulder joint 0 10/07/2020 Dyslipidemia 06/30/2020 Spinal stenosis of lumbar re gion without neurogenic claudication 06/01/2019 Carotid stenosis, non-symptomatic, bilateral 10/2019 COPD, mild 09/24/2018 Vitamin B12 deficiency 02/12/2018 Persistent insomnia 06/09/2013 Vitamin D deficiency 05/18/2009 Irritable bowel syndrome with constipation 09/09 Allergic rhinitis due to pollen documented as of this encounter (statuses as of 06/30/2024) Resolved Problems Problem Noted Date Diagnosed Date Resolved Date Sepsis 04/22/2024 04/24/2024 UTI (urinary tract infection) 04/22/2024 04/24/2024 Acute blood loss anemia 04/22/202403/28 Chronic kidney disease, stage 3a 12/05/2020 03/02/2024 Overview: Per CKD protocol Benign hypertension with sta ge 3a chronic kidney disease 11/08/2020 01/22/2024 Overview: Per CKD protocol Gastro-esophageal reflux dis ease without esophagitis 06/30/2020 01/22/2024 Senile osteoporosis 06/30/2020 01/26/20 21 Occlusion and stenosis of ri ght carotid artery 06/30/2020 07/27/2021 History of fracture of humerus 08/07/2019 01/22/2024 Overview (08/10/2019): [facility] Bilateral sciatica 06/01/2019 4 Spasm of muscle 02/25/2019 08/10/2019 HZV (herpes zoster virus) po st herpetic neuralgia 09/24/2018 07/27/2021 Benign hypertension with CKD (chronic kidney disease) stage III 06/23/2018 11/10/2020 Overview: Per CKD protocol HTN, goal below 150/90 10/31/201706/25 Venous insufficiency 07/19/2017 018 Essential hypertension with goal blood pressure less than 140/90 02/15/2016 10/31/2017 HTN, goal below 140/90 08/11/201402/14 Psoriasis 08/11/2014 01/22/2024 Dyslipidemia, goal LDL below 100 03/30/2014 02/12/2018 Rotator cuff arthropathy 11/02/2013 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 Tobacco use disorder 03/09/2009 013 Primary localized osteoarthrosis, lower leg 09/05/2007 10/14/2008 Plantar fibromatosis 02/07/2007 008 COPD W BRONCHITIS,EMPHYSEMATOS 09/18/2006 05/24/2011 COPD, MODERATE 09/18/2006 02/12/2018 Overview (05/24/2011): Per COPD Protocol #24. COPD W BRONCHITIS,EMPHYSEMATOS Last PFT - 2006-10-15 Deviated nasal septum 06/06/20062007 Overview (06/11/2006): left nasal septal deviation Displacement of cervical int ervertebral disc without myelopathy 03/20/2006 08/18/2007 Overview (03/25/2006): moderate-advanced disc degeneration of C5-6 and C6-7 Slow transit constipation 09/17/2005 FEM STRESS INCONTINENCE 09/17/200506/28 LUMB-LUMBOSAC DISC DEGEN 06/16/2005 ADVANCE DIRECTIVE INFORMATION 05/30/2005 07/19/2017 Overview (05/30/2005): No, Advance Directive brochure given to patient at prior appointment. BENIGN HYPERTENSION 03/26/2005 04/01/20 09 Overview (04/01/2009): Modified per HTN Taxonomy. Diverticulosis of colon 01/18/200510/26 Acute peptic ulcer, unspecif ied site, without mention of hemorrhage, perforation, or obstruction 09/09/2002 08/18/2007 Esophageal reflux 09/10/2001 06/01/2019 DIFFUS CYSTIC MASTOPATHY Other atopic dermatitis 06/27 Overview (03/19/2017): ICD-10 update of inactive term Edema 08/18/2007 Need for prophylactic hormon e replacement therapy (postmenopausal) 08/18/2007 Disorder of bone and cartilage 02/11/2011 Other chronic sinusitis 11/26 Contreras's esophagus 08/15/19 16 Calcaneal spur 02/07/2008 Kidney disease, chronic, sta ge III (GFR 30-59 ml/min) 07/10/2018 Hypercalcemia 07/19/2017 Tubular adenoma of colon 06/2018 documented as of this encounter (statuses as of 06/30/2024) Immunizations Name Administration Dates Next Due COVID-19 mRNA, LNP-s, No Pre serve, 2-Dose Series (Moderna) 07/24/2020,06/26/2020 COVID-19, mRNA, LNP-s, PF, B ooster, 100mcg/0.5mg (Moderna) 03/28/2021 Covid-19, Mrna, Lnp-s, Pf, B ivalent, 30 Mcg, IM, 12 yrs and above (Pfizer) 02/27/2022 Pneumococcal Conjugate Vacc, 13 Valent (Prevnar) 08/12/2014 Pneumococcal Polysaccharide PPV23 (Pneumovax) 03/11/2002 Season Influenza, Quad, PF, Adjuvanted, 65+ Yrs, IM (FLUAD) 02/04/2020 Seasonal Influenza Vac., MDV , IM, 0.5 mL (Fluzone) 02/14/2015,02/10/2014,02/07/2013,02/27,02/20/2011,02/28/2010,02/08/2009 ,03/04/2008,03/06/2007,03/20/2006,02/26,02/26/2003,03/11/2002 Seasonal Influenza, High Dos e, Trivalent, PF, IM (Fluzone HD) 03/02/2024 Seasonal Influenza, PF, 6 M & above, IM , (FluLaval or Fluzone) 02/25/2019,02/12/2018 Seasonal Influenza, Quadriva lent Hd (Fluzone Hd) 02/28/2023,02/22/2022,02/20/2021 Seasonal Influenza, Quadriva lent, No Preserve, IM 02/05/2017,03/22/2016 TD, Preservative Free 01/08/2008 TDAP (age 10 and older)(Boostrix) 06/09/2013 Varicella Zoster Vaccine (Adult) 09/13/2010 Zoster Vaccine Recombinant (Shingrix) 07/06/2019 ,12/05/2018 documented as of this encounter Social History Tobacco Use Types Packs/Day Years Used Date Smoking Tobacco: Every Day Cigarettes 1 57.7 Started: 1965 Smokeless Tobacco: Never Comments:06/19/24 1/2 pack da chon, declined pamphlet Alcohol Use Standard Drinks/Week Comments No 0 (1 standard drink = 0.6 oz pur e alcohol) PHQ-2 Answer Date Recorded PHQ Adult Total Score 0 04/20/2024 Hunger Vital Sign Answer Date Recorded Within the past 12 months, y ou worried that your food would run out before you got the money to buy more. Never true 04/20/20 Within the past 12 months, t he food you bought just didn't last and you didn't have money to get more. Never true 04/20/2024 Childcare Answer Date Recorded Do you feel overwhelmed with taking care of a child, family member or friend? No 04/20/2024 Does your family need help f inding childcare? (Household - for ages 0-17 years) Not on file 04/20/2024 Clothing Answer Date Recorded Have you been unable to get clothing when it was really needed? No 04/20/2024 Is your family able to get c lothes or diapers when needed? (Household - for ages 0-17 years) Not on file 04/20/2024 Personal Safety Answer Date Recorded Do you feel unsafe or have concerns for your saf ety? No 04/22/2024 Do you have concerns for you r family's safety? (Household - for ages 0-17 years) Not on file 04/22/2024 Utilities Answer Date Recorded Do you have trouble paying y our heating, water, or electric bill? No 04/22/2024 Is your family able to pay t he heat, water, or electric bill? (Household - for ages 0-17 years) Not on file 04/22/2024 Does your family have access to good internet? (Household - for ages 0-17 years) Not on file 04/22/2024 Employment Status Answer Date Recorded Are you unemployed or without regular income? No 04/20/2024 Does the household have a [facility] source of income? (Household - for ages 0-17 years) Not on file 04/20/2024 Social Connections Answer Date Recorded How often do you feel lonely or isolated from th ose around you? Never 04/20/2024 Financial Resource Strain Answer Date R ecorded Do you have any trouble payi ng for your medications, or do you think you might in the future? No 04/20/2024 Does your family have troubl e paying for medicine? (Household - for ages 0-17 years) Not on file 04/20/2024 Transportation Needs Answer Date Record ed Do you have trouble getting a ride to medical visits or work? (Adult - for ages 18 years and over) Not on file 04/22/2024 Does your family have a hard time getting a ride to doctors visits? (Household - for ages 0-17 years) Not on file 04/22/2024 Has lack of transportation k ept you from medical appointments, meetings, work, or from getting things needed for daily living? Check all that apply. No 04/22/2024 Do you (or your family) have trouble finding or paying for a ride (transportation)? (Household - for ages 0-17 years) Not on file 04/22/2024 Housing Stability Answer Date Recorded Do you currently live in a s helter or have no steady place to sleep at night? No 04/22/2024 Do you think you are at risk of becoming homeless? (Adult - for ages 18 years and over) Not on file 04/22/2024 Does your family worry about paying for your home or becoming homeless? (Household - for ages 0-17 years) Not on file 1 06/22/2023 Are you homeless or worried that you might be in the future? No 04/22/2024 Are you (or your family) eboni eless or worried that you might be in the future? (Household - for ages 0-17 years) Not on file Food Insecurity Answer Date Recorded Do you need food for this week? No 04/22/2024 Are you able to get enough f ood for your family? (Household - for ages 0-17 years) Not on file 04/22/2024 Does your family need food t his week? (Household - for ages 0-17 years) Not on file 04/22/2024 Do you always have enough fo od for your family? 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 Not on file Not on file Not on file documented as of this encounter Miscellaneous Notes * Addendum Note - Bharati Wang MD - 06/30/2024 9:27 AM ESTAddended by: BHARATI WANG on: 06/30/2024 09:27 AM Modules accepted: Orders * Telephone Encounter - Bharati Wang MD - 06/30/2024 9:25 AM EST Called and discussed with pt about the UTI - will do bactrim Also discussed AC with pt * Telephone Encounter - Bharati Wang MD - 06/25/2024 11:11 AM EST Called and left a VM - discussed the case with Vascular; as long as pt is tolerating eliquis and no fall risk okay to take the eliquis - will continue the eliquis indefinitely - asked the pt to call the clinic if any questions documented in this encounter Plan of Treatment Upcoming Encounters Date Type Department Care Team (Late st Contact Info) Description 07/09/2024 1:00 PM EST Nurse Only Ancillary [address] [place] [address] [place], Nurse [address] [place] [address] 08/25/2024 10:00 AM EDT Office Visit Family Medicine [address] [place] [phone] Bharati Wang MD [address] [place] [address] [place] [address] 09/10/2024 11:30 AM EDT Office Visit Neurosurgery, [place] [address] [place] [address] Yann Jackson MD [address] [place] [address] 09/18/2024 12:00 PM EDT Appointment Vascular Lab [facility] [address] [place] [address] 09/18/2024 12:30 PM EDT Appointment Vascular Lab [facility] [address] [place], [place] [id number] 09/18/2024 1:20 PM EDT Office Visit Vascular [facility] [address] [place] [address] Samson Dennis MD [address] [place] [address] Scheduled Procedures Name Priority Associated Diagnoses Date/Ti me ESOPHAGOGASTRODUODENOSCOPY ( EGD), FLEXIBLE, TRANSORAL, DIAGNOSTIC Recall Contreras esophagus Health Maintenance Due Date Last Done Comments Alpha-1 Antitrypsin 1953 Adult Wellness Visit 2002 DXA Scan 04/06/2018 04/06/2016, 09/2012, 02/08/2011, Additional history exists DISCUSS TOBACCO CESSATION (REFER TO SMARTSET #6533) 08/01/2018 08/01/2017 (Discussed) DTap/Tdap Vaccines (2 - Td or Tdap) 06/09/2023 06/09/2013, 01/08/2008 COVID-19 Vaccine ( season) 2024 02/27/2022, 03/28/2021, 07/24/2020, Additional history exists Contreras's Esophagus Surveilance 08/29/2024 08/29/2021, 08/29/2021, 11/14/2020, Additional history exists O2 ASSESSMENT COMPLETED IN PAST YEAR FOR COPD 04/16/2025 04/16/2024 Depression Screening 04/20/2025 04/20/2024 Pneumococcal Vaccine: 50+ Years Completed 08/12/2014, 03/11/2002 *BISPHONATE OR OTHER ACCEPTABLE MEDICATION NEEDED FOR OSTEOPOROSIS (REFER TO SMARTSET #1146) Addressed 08/01/2017 (Discussed) Overridden with the intention of not completing the topic VITAMIN D LEVEL ONCE IN A LIFETIME-USE SMARTSET# 60639 Completed 02/12/2018, 04/25/2015, 09/24/2014, Additional history exists Zoster Vaccines Completed 07/06/2019, 11/24, 09/13/2010 RETIRED - COLONOSCOPY-EVERY 5 YRS AGES 18-100 Discontinued 07/27/2020, 07/27/2020, 03/08/2015, Additional history exists Albumin/Creatinine Ratio Discontinued 03/02/2024, 08/25 Influenza Vaccine (FLU shot) Completed 03/02/2024, 02/28/2023, 02/22/2022, Additional history exists HPV (Gardasil) Vaccine Aged Out No lo nger eligible based on patient's age to complete this topic Hepatitis B Vaccine Aged Out No longe r eligible based on patient's age to complete this topic MENINGOCOCCAL (MENACTRA/MENVEO) Aged Out No longer eligible based on patient's age to complete this topic documented as of this encounter Medical Devices Implanted Type Area Broaching Machine Set Up Operator Device Identifier Shelf Expiration Date Model / Serial / Lot Coil Target 3d [id number] - [id number] Implanted:Qty : 1 on 04/15/2024 by Yann Jackson MD [place] [facility] [place] Head ANNAMARIA : NEUROVASCULAR [id number] 12/16/2024 [id number] / / [id number] 6cm, Coil Swiftpac Implanted:Qty : 1 on 04/15/2024 by Yann Jackson MD at [place] [facility] [place]: Head [employer] 12/16/2028 [id number] / / [id number] 45cm, Coil Swiftpac Implanted:Qty : 1 on 04/15/2024 by Yann Jackson MD at [place] [facility] [place]A: Head [employer] 12/16/2028 [id number] / / [id number] 60cm, Coil Swiftpac Implanted:Qty : 1 on 04/15/2024 by Yann Jackson MD at [place] [facility] [place]A: Head [employer] 11/02/2028 [id number] / / [id number] Coil Target 3d [id number] - [id number] Implanted:Qty : 1 on 04/15/2024 by Yann Jackson MD at [place] [facility] [place]A: Head [employer]NAM[employer]IA : NEUROVASCULAR [id number] 12/24/2024 [id number] 60 / / [id number] Coil Target 360 Soft [id number] - [id number] Implanted:Qty : 1 on 04/15/2024 by Yann Jackson MD at [place] [facility] [place]: Head [employer] : NEUROVASCULAR [id number] 06/23/2025 [id number] / / [id number] Coil Target 360 Ultra [id number] - [id number] Implanted:Qty : 1 on 04/15/2024 by Yann Jackson MD at [place] [facility] [place]A: Head [employer]NAM[employer] : NEUROVASCULAR [id number] 05/04/2026 [id number] / / [id number] Coil Target 360 Ultra [id number] - [id number] Implanted:Qty : 1 on 04/15/2024 by Yann Jackson MD at [place] [facility] [place]A: Head ANNAMARIA : NEUROVASCULAR [id number] 02/03/2025 [id number] / / [id number] 10cm, Coil Swiftpac Implanted:Qty : 2 on 04/15/2024 by Yann Jackson MD at [place] [facility] [place]/A: Head [employer] 12/24/2028 [id number] / / [id number] 30cm, Coil Swiftpac Implanted:Qty : 1 on 04/15/2024 by Yann Jackson MD at [place] [facility] [place] N/A: Head [employer] 12/24/2028 [id number] / / [id number] 60cm, Coil Swiftpac Implanted:Qty : 1 on 04/15/2024 by Yann Jackson MD at [place] [facility] [place] N/A: Head [employer] 11/02/2028 [id number] / / [id number] 6cm, Coil [employer]pac Implanted:Qty : 1 on 04/15/2024 by Yann Jackson MD at [place] [facility] [place] N/A: Head [employer] 12/16/2028 [id number] / / [id number] Stent Vasc Hep [id number] - [id number] Implanted:Qty : 1 on 04/16/2024 by Samson Dennis MD at [place] [facility] [place] Left: Iliac [employer] [id number] 12/29/2026 [id number] / [id number] / [id number] documented as of this encounter Visit Diagnoses Diagnosis Acute cystitis with hematuria- Primary Acute cystitis documented in this encounter Advance Directives * Full Code (Latest Code Status on File) Date Activated Date Inactivated Comments 04/22/2024 2:28 AM 04/24/2024 6:42 PM This order reflects the patients wishes and were consensually agreed upon. Question Answer Comments Discussion of Advance Directives occurred with: Patient * Full Code Date Activated Date Inactivated Comments 04/15/2024 6:20 PM 04/18/2024 5:18 PM This order reflects the patients wishes and were consensually agreed upon. Question Answer Comments Discussion of Advance Directives occurred with: Patient * Full Code Date Activated Date Inactivated Comments 04/15/2024 11:04 AM 04/15/2024 6:20 PM This orde r reflects the patients wishes and were consensually agreed upon. Question Answer Comments Discussion of Advance Direct justice occurred with: Not Discussed due to patient's condition Care Teams Child Development Instructor Relationship Specialty Start Date End Date Bharati Wang MD [address] [place] [address] [place] [phone] PCP - General Family Medicine 10/02/21 documented as of this encounter
--- OUTSIDE RECORDS SUMMARY | 2024-07-03 22:58 | External Medical Summary | Summary of Care ---
Author Name Unknown Organization [facility] Address [address] [place] [address] Phone [phone] Care Team Providers Care Purchasing Supervisor Name Role Phone Bharati Wang MD Primary Care Provide r Reason for Visit * Reason Onset Date Comments Follow Up 03/30/2024 Encounter Details Date Type Department Care Team (Late st Contact Info) Description 03/30/2024 Telephone [facility] [address] [place] [address] Zehra Ridley RN Follow Up Allergies Active Allergy Reactions Criticality Noted Date Comments Ampicillin 09/23/2003 Hives/trouble breathing Azithromycin 09/24/2003 hives and angioedema Ranitidine 10/29/2002 rash documented as of this encounter (statuses as of 06/30/2024) Medications VITAMIN D 2000 UNITS PO CAPS Take 2,000 Units by mouth daily with dinner. 08/25/[address] ARTHRITIS PAIN 500 MG PO TABS Take by mouth. Active Cyanocobalamin 1000 MCG Oral Tablet Take 1 Tablet by mouth daily at noon. 11/01/19 18 Active Loratadine 10 MG Oral Tablet (Claritin)Indic ations:Nasal congestion Take 1 Tablet by mouth every night at bedtime. 30 Tablet 11 04/17/20 23 Active Fluticasone Propionate 50 MCG/ACT Nasal Suspension (Flonase)Indica tions:Nasal congestion USE ONE SPRAY IN each nostril IN THE MORNING AND in the evening 16 g 02/03/20 24 Active aspirin 81 MG TBEC Take 1 Tablet by mouth in the morning. 024 Discontinued Lisinopril 40 MG Oral TabletIndicatio ns:HTN, goal below 150/90 TAKE ONE TABLET BY MOUTH IN THE MORNING 90 Tablet 3 04/03/20 23 024 Discontinued Omeprazole 40 MG Oral Capsule Delayed Release (PriLOSEC)Indic ations:Contreras' s esophagus with dysplasia TAKE ONE CAPSULE BY MOUTH EVERY MORNING 90 Capsule 3 04/03/20 23 024 Discontinued ProAir HFA 108 (90 Base) MCG/ACT Inhalation Aerosol SolutionIndicat ions:Wheezing,C OPD exacerbation (HCC) Inhale 2 Puffs by mouth every 4 hours as needed for Wheezing. 18 g 2 06/06/19 24 024 Discontinued(M edication List Clean Up) guaiFENesin ER 600 MG Oral Tablet Extended Release 12 Hour (Humibid LA)Indications: Wheezing,Acute cough Take 1 Tablet by mouth in the morning and 1 Tablet before bedtime. 40 Tablet 06/06/19 24 024 Discontinued(P atient preference/dis continuation) Rosuvastatin Calcium 20 MG Oral Tablet (Crestor)Indica tions:Carotid stenosis, non-symptomatic , bilateral TAKE ONE TABLET BY MOUTH EVERY DAY 90 Tablet 1 10/12/19 24 024 Discontinued amLODIPine Besylate 5 MG Oral Tablet (Norvasc)Indica tions:HTN, goal below 150/90 TAKE ONE TABLET BY MOUTH EVERY MORNING 90 Tablet 1 10/12/19 24 024 Discontinued Neomycin-Polymy jina-Dexameth 3.5-37468-7.1 Ophthalmic Ointment (Maxitrol) Apply 1/4 inch into both eyes every evening 01/14/20 24 024 Discontinued(P atient preference/dis continuation) Gatifloxacin 0.5 % Ophthalmic Solution (Zymaxid) ONE DROP IN THE LEFT EYE FOUR TIMES DAILY 12/31/19 24 024 Discontinued(P atient preference/dis continuation) Neomycin-Polymy jina-HC 3.5-67711-1 Otic Solution Administer 4 Drops into the left ear in the morning and 4 Drops at noon and 4 Drops before bedtime. To affected ear, for 10 days.. 10 mL 1 01/22/20 24 024 Discontinued(M edication List Clean Up) documented as of this encounter (statuses as [...] fracture of humerus 08/07/2019 01/22/2024 Overview (08/10/2019): [facility] Bilateral sciatica 06/01/2019 4 Spasm of [...] Pneumococcal Conjugate Vacc, 13 Valent (Prevnar) 08/12/2014 Season Influenza, Quad, PF, Adjuvanted, 65+ Yrs, IM (FLUAD) 02/04/2020 Seasonal Influenza Vac., MDV , IM, 0.5 mL (Fluzone) 02/14/2015,02/10/2014,02/07/2013,2011,02/20/2011,02/28/2010,02/08/2009,1 ,03/06/2007,03/20/2006 Seasonal Influenza, High Dos e, Trivalent, PF, [...] 1 57.7 Started: 1965 Smokeless Tobacco: Never Alcohol Use Standard Drinks/Week Comments No 0 (1 standard drink = 0.6 oz pur e alcohol) PHQ-2 Answer Date Recorded PHQ Adult Total Score 0 04/20/2024 Hunger Vital Sign Answer Date Recorded Within the past 12 months, y ou worried that your food would run out before you got the money to buy more. Never true 04/20/20 24 Within the past 12 months, t he [...] No 04/20/2024 Does the household have a re gular source of income? 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 Not on file Not on file Not on file documented as of this encounter Miscellaneous Notes * Telephone Encounter - Zehra Ridley RN - 03/30/2024 11:54 AM EST Patient is s/p 03/27/2024 diagnostic cerebral angiogram with Dr. Jackson. Plan: RTC for review -Scheduled OV 04/02/2024 @ 0930 Placed call to patient [phone], no answer. Provided VM to make aware to call and report any redness, warmth, swelling or drainage from incision. Also made aware of office visit scheduled 04/02 @ [address] Jackson. Provided clinic callback number for any questions or concerns. Zehra Ridley, RN Cerebrovascular Nurse Navigator [facility] documented in this encounter Plan of Treatment Upcoming Encounters Date Type Department Care Team (Late st Contact Info) Description 07/09/2024 1:00 PM EST Nurse Only Ancillary [address] [place] [address] [place], Nurse [address] [place] [phone] 08/25/2024 10:00 AM EDT Office Visit Family Medicine [address] [place] [phone] Bharati Wang MD [address] [place] [address] [place] [address] 09/10/2024 11:30 AM EDT Office Visit Neurosurgery, [address] [address] Yann Jackson MD [facility] [place] [address] 09/18/2024 12:00 PM EDT Appointment Vascular Lab [address] [address] 09/18/2024 12:30 PM EDT Appointment Vascular Lab [address] [address] 09/18/2024 1:20 PM EDT Office Visit Vascular Surg [address] [place] [address] Samson Dennis MD [address], [place] [id number] Scheduled Procedures Name Priority Associated Diagnoses Date/Ti me ESOPHAGOGASTRODUODENOSCOPY ( EGD), FLEXIBLE, TRANSORAL, DIAGNOSTIC Recall Contreras esophagus Health Maintenance Due Date Last Done Comments Alpha-1 Antitrypsin 1953 Adult Wellness Visit 2002 DXA Scan 04/06/2018 04/06/2016, 09/2012, 02/08/2011, Additional history exists DISCUSS TOBACCO CESSATION (REFER TO SMARTSET #5283) 08/01/2018 08/01/2017 (Discussed) DTap/Tdap Vaccines (2 - [...] D LEVEL ONCE IN A LIFETIME-USE SMARTSET# 98901 Completed 02/12/2018, 04/25/2015, 09/24/2014, Additional history exists [...] this encounter Medical Devices Implanted Type Area Distribution Accounting Clerk Device Identifier Shelf Expiration Date Model / Serial / Lot Coil Target 3d [id number] - [id number] Implanted:Qty : 1 on 04/15/2024 by Yann Jackson MD at OR [facility] N/A: Head ANNAMARIA : NEUROVASCULAR [id number] 12/16/2024 [id number] / / [id number] 6cm, Coil [employer] Implanted:Qty : 1 on 04/15/2024 by Yann Jackson MD at OR [facility] [place] N/A: Head [employer] 12/16/2028 [id number] / / [id number] 45cm, Coil [employer] Implanted:Qty : 1 on 04/15/2024 by Yann Jackson MD at OR [facility] N/A: Head [employer] 12/16/2028 [id number] / / [id number] 60cm, Coil [employer] Implanted:Qty : 1 on 04/15/2024 by Yann Jackson MD at OR [facility] [place] N/A: Head [employer] 11/02/2028 [id number] / / [id number] Coil Target 3d [id number] - [id number] Implanted:Qty : 1 on 04/15/2024 by Yann Jackson MD at OR [facility] N/A: Head ANNAMARIA : NEUROVASCULAR [id number] 12/24/2024 [id number] 60 / / [id number] Coil Target 360 Soft 4vhb50ms - [id number] Implanted:Qty : 1 on 04/15/2024 by Yann Jackson MD at OR [facility] N/A: Head ANNAMARIA : NEUROVASCULAR [id number] 06/23/2025 [id number] / / [id number] Coil Target 360 Ultra 6gco23wg - [id number] Implanted:Qty : 1 on 04/15/2024 by Yann Jackson MD at OR [facility] N/A: Head ANNAMARIA : NEUROVASCULAR [id number] 05/04/2026 [id number] / / [id number] Coil Target 360 Ultra 6buf2bw - [id number] Implanted:Qty : 1 on 04/15/2024 by Yann Jackson MD at OR [facility] N/A: Head ANNAMARIA : NEUROVASCULAR [id number] 02/03/2025 [id number] 80 / / [id number] 10cm, Coil [employer] Implanted:Qty : 2 on 04/15/2024 by Yann Jackson MD at OR [facility] N/A: Head [employer] 12/24/2028 [id number] / / [id number] 30cm, Coil [employer] Implanted:Qty : 1 on 04/15/2024 by Yann Jackson MD at OR [facility] N/A: Head [employer] 12/24/2028 [id number] / / [id number] 60cm, Coil [employer] Implanted:Qty : 1 on 04/15/2024 by Yann Jackson MD at OR [facility] N/A: Head [employer] 11/02/2028 [id number] / / [id number] 6cm, Coil [employer] Implanted:Qty : 1 on 04/15/2024 by Yann Jackson MD at OR [facility] N/A: Head [employer] 12/16/2028 [id number] / / [id number] Stent Vasc Hep [id number] - [id number] Implanted:Qty : 1 on 04/16/2024 by Samson Dennis MD at OR [facility] Left: Iliac [employer] [id number] 12/29/2026 [id number] / [id number] / [id number] documented as of this encounter Additional Health Concerns Infection Onset Date Last Indicated Resolved Time Respiratory Rule-Out 04/21/2024 04/21/2024 024 9:20 PM EST COVID-19 Rule-Out 04/21/2024 04/21/2024 04/21/2024 9:20 PM EST documented as of this encounter Advance Directives * Full Code [...] Discussed due to patient's condition Care Teams Purchasing Supervisor Relationship Specialty Start Date End Date Bharati Wang MD [address] [place] [address] [place] [phone] PCP - General Family Medicine 10/02/21 documented as of this encounter
--- OUTSIDE RECORDS SUMMARY | 2024-07-03 22:58 | External Medical Summary | Summary of Care ---
Author Name Unknown Organization [facility] Address [address] [place] [address] Phone [phone] Care Team Providers [facility] Pricing Consultant Name Role Phone Bharati Wang MD Primary Care Provide r Reason for Visit * Reason Comments Re-Check Encounter Details Date Type Department Care Team (Late st Contact Info) Description 06/25/2024 9:40 AM EST Office Visit Family Medicine [address] [phone] Bharati Wang MD [address] [place] [address] [place] [address] HTN, goal below 140/90*; Dysuria; PAD (peripheral artery disease) ([facility]); Carotid-cavernous fistula; History of UTI; CKD (chronic kidney disease), stage II; S/P insertion of iliac artery stent; History of thromboembolism; COPD, mild ([facility]); Age-related osteoporosis without current pathological fracture; Dyslipidemia Allergies Active Allergy Reactions Criticality Noted Date Comments Ampicillin 09/23/2003 Hives/trouble breathing Azithromycin 09/24/2003 hives and angioedema Ranitidine 10/29/2002 rash documented as of this encounter (statuses as of 06/25/2024) Medications VITAMIN D 2000 UNITS PO CAPS [...] the morning. 90 Tablet 1 06/25/2024 Active documented as of this encounter (statuses as of 06/25/2024) Active Problems Problem Noted Date Diagnosed Date [...] as of this encounter (statuses as of 06/25/2024) Resolved Problems Problem Noted Date Diagnosed Date Resolved Date Sepsis 04/22/2024 04/24/2024 UTI (urinary tract infection) 04/22/2024 04/24/2024 Acute blood loss anemia 04/22/2024 1101/2024 Chronic kidney disease, stage 3a 12/05/2020 03/02/2024 [...] as of this encounter (statuses as of 06/25/2024) Immunizations Name Administration Dates Next Due COVID-19 [...] Tobacco: Never Comments:06/19/24 1/2 pack da chon, zamzam pamphlet Alcohol Use Standard Drinks/Week Comments No [...] 04/20/2024 Does the household have a re lar source of income? 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 Not on file Not on file Not on file documented as of this encounter Last Filed Vital Signs Vital Sign Reading Time Taken Comments Blood Pressure 154/82 06/25/2024 9:32 AM EST Pulse 71 06/25/2024 9:32 AM EST Temperature 35.8 C (96.4 F) 06/25/2024 9:32 AM ES T Respiratory Rate - - Oxygen Saturation 97% 06/25/2024 9:32 AM EST Inhaled Oxygen Concentration - - Weight 73.9 kg (163 lb) 06/25/2024 9:32 AM EST Height - - Body Mass Index 27.98 05/18/2024 1:40 PM EST documented in this encounter Progress Notes * Bharati Wang MD - 06/25/2024 9:51 AM EST Subjective: HPI: Josefa L Pepperday is a 88 year old female with hx of mild COPD (daily smokers), HLD, Contreras's esophagus, GERD, HTN, IBS, CKD II-III, B/L carotid AA stenosis, Insomnia, DDD, hx of back surgery (T11-L1 decompression and Fusion ), mild mitral regurgitation, cavernous sinus fistula s/p coil embolization, L iliac thromboembolectomy with external iliac stent grafting of the dissection flap seen for Hx of Cavernous sinus fistula s/p Coil embolization + hx of L iliac thromboembolectomy with external iliac stent grafting - on discharge summary it mentioned eliquis for 3 months - pt has been tolerating plavix and eliquis well - she is able to open her L eye better as well - vision is better and MCINTOSH resolved HTN - pt used to take lisinopril 40mg daily - currently only taking amlodipine 5mg daily Continue to have dysuria and urgency - denied any fever - denied any vaginal bleeding or discharge Patient Active Problem List Diagnosis Irritable bowel syndrome with constipation Allergic rhinitis due to pollen Vitamin D deficiency Persistent insomnia HTN, goal below 140/90 Vitamin B12 deficiency COPD, mild (HCC) Spinal stenosis of lumbar region without neurogenic claudication Carotid stenosis, non-symptomatic, bilateral Dyslipidemia Contreras's esophagus without dysplasia 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 TYLENOL EX ST ARTHRITIS PAIN 500 MG PO TABS Take by mouth. Cyanocobalamin 1000 MCG Oral Tablet Take 1 Tablet by mouth daily at noon. Loratadine 10 MG Oral Tablet (Claritin) Take 1 Tablet by mouth every night at bedtime. 30 Tablet 11 Fluticasone Propionate 50 MCG/ACT Nasal Suspension (Flonase) USE ONE SPRAY IN each nostril IN THE MORNING AND in the evening 16 g 0 Omeprazole 40 MG Oral Capsule Delayed Release (PriLOSEC) TAKE ONE CAPSULE BY MOUTH EVERY MORNING 100 Capsule 3 amLODIPine Besylate 5 MG Oral Tablet (Norvasc) TAKE ONE TABLET BY MOUTH EVERY MORNING 90 Tablet 3 Rosuvastatin Calcium 20 MG Oral Tablet (Crestor) TAKE ONE TABLET BY MOUTH EVERY DAY 90 Tablet 3 Clopidogrel Bisulfate 75 MG Oral Tablet (pLAVix) Take 1 Tablet by mouth in the morning. 30 Tablet 5 Apixaban 5 MG Oral Tablet (Eliquis) Take 1 Tablet by mouth in the morning and 1 Tablet before bedtime. 60 Tablet 0 Lisinopril 20 MG Oral Tablet (Prinivil) Take 1 Tablet by mouth in the morning. 90 Tablet 1 No current facility-administered medications for this visit. Past Medical History: Diagnosis Date ACUTE PEPTIC ULCER NOS 09/09/2002 Acute sinusitis 06/06/2006 CT shows involvement of all sinuses, opacified left osteomeatal complex, left nasal septum deviation Allergic rhinitis due to other allergen Contreras's esophagus 07/2006 Calcaneal spur left foot Chronic bronchitis, obstructive (HCC) EMPHYSEMA CHRONIC COPD, MODERATE 09/18/2006 Per COPD Protocol #24. 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 Essential hypertension with goal blood pressure less than 140/90 02/15/2016 Female stress incontinence Fracture of anatomical neck of humerus, left, closed, initial encounter 08/07/2019 [facility] HTN, goal below 130/80 04/19/2009 Hypercalcemia 09/2008 Kidney disease, chronic, stage III (GFR 30-59 ml/min) (HCC) Need for prophylactic hormone replacement therapy (postmenopausal) Other atopic dermatitis and related conditions Other chronic sinusitis Persistent insomnia 06/09/2013 Plantar fibromatosis 02/07/2007 Primary localized osteoarthrosis, lower leg 09/05/2007 Psoriasis 08/11/2014 Rotator cuff arthropathy 11/02/2013 Rotator cuff rupture 05/29/2010 right Senile osteoporosis 02/11/2011 Tobacco use disorder 03/09/2009 Tubular adenoma of colon Vitamin D deficiency 05/18/2009 Past Surgical History: Procedure Laterality Date ART EMBO FEM-POP,AORTOILIAC LE Left 04/16/2024 THROMBECTOMY EMBOLECTOMY FEMOROPOPLITEAL AORTOILIAC ARTERY performed by Samson Dennis MDat OR [facility] BLEPHAROPTOSIS, FRONTALIS, REPAIR Bilateral 08/10/2015 CAROTID (INTERNAL) ARTERY CATHETHER PLACEMENT Bilateral 03/27/2024 CATHETER PLACEMENT INTERNAL CAROTID ARTERY RADIAL ACCESS performed by Yann Jackson MD at OR [facility] CAROTID (INTERNAL) ARTERY CATHETHER PLACEMENT Bilateral 04/15/2024 CATHETER PLACEMENT INTERNAL CAROTID ARTERY performed by Yann Jackson MD at OR [facility] CAROTID (EXTERNAL) ARTERY CATHETHER PLACEMENT Bilateral 03/27/2024 CATHETER PLACEMENT EXTERNAL CAROTID ARTERY performed by Yann Jackson MD at OR [facility] CAROTID (EXTERNAL) ARTERY CATHETHER PLACEMENT Bilateral 04/15/2024 CATHETER PLACEMENT EXTERNAL CAROTID ARTERY performed by Yann Jackson MD at [facility] CATHETER OCCLUSION/EMBOLIZATION,SHAKER OPERATOR N/A 04/15/2024 TRANSCATHETER PERMANENT ARTERIAL OCCLUSION CENTRAL NERVOUS SYSTEM performed by Yann Jackson MD at [facility] CERVICAL LAMINOPLAST W/DECOMP,RECON 06/17/2006 Dr. Potts COLONOSCOPY, DIAGNOSTIC (RECTUM) 03/08/2015 adenomatous polyps, repeat 5 yrs/COLONOSCOPY FLEXIBLE PROXIMAL DIAGNOSTIC performed by Rene Elise MD at ENDOSCOPY [facility] COLONOSCOPY, DIAGNOSTIC (RECTUM) 07/27/2020 benign adenomatous polyps / COLONOSCOPY FLEXIBLE PROXIMAL DIAGNOSTIC performed by Rene Elise MD at [facility]COPY [facility] COLONOSCOPY, GI REFERRAL OP 01/16/2005 Dr. Mcneil - diverticulosis CT SINUSES W WO CONTRAST 06/06/2006 air fluid levels in bilateral maxillary and sphenoid sinuses, frontal sinus opacified, mucosal thickening of ethmoids, left osteomeatal complex opacified, left nasal septal deviation EGD, FLEXIBLE, DIAGNOSTIC 11/14/2020 Barretts, hiatal hernia, repeat 6 mo / ESOPHAGOGASTRODUODENOSCOPY (EGD), FLEXIBLE, TRANSORAL, DIAGNOSTIC performed by Santi Edwards MD at [facility]COPY [facility] EGD, FLEXIBLE, DIAGNOSTIC 08/29/2021 Barretts, hiatal hernia, repeat 2 yrs / ESOPHAGOGASTRODUODENOSCOPY (EGD), FLEXIBLE, TRANSORAL, DIAGNOSTIC performed by Santi Edwards MD at [facility] EGD, FLEXIBLE, DIAGNOSTIC 09/30/2020 Bleeding esophagitis with underlying Contreras's esophagus, repeat 6 wks / INPT [facility] EGD, FLEXIBLE, W/BIOPSY 08/16/2006 path-no abnormalities FULL PULMONARY FUNCTION TEST 05/2000 HEMORRHOIDECTOMY, SIMPLE, 1 COLUMN Remote past ILIAC ART. REVASC W/ STENT+ANGIOPLASTY 04/16/2024 ILIAC ARTERY REVASC W/ STENT+ANGIOPLASTY performed by Samson Dennis MD at OR [facility] INTRACRANIAL ARTERIES CATH PLACEMENT Bilateral 04/15/2024 CATHETER PLACEMENT EACH INTRACRANIAL BRANCH OF THE INTERNAL CAROTID OR VERTEBRAL ARTERIES performedby Yann Jackson MD at [facility] IR ARTERIOGRAM EXTREMITY UNILATERAL 04/16/2024 IMAGING SUPERVISION & INTERPRETATION EXTREMITY UNILATERAL performed by Samson Dennis MD at [facility] L-/S-SPINE PARAVERTEBRAL FACET INJ,1 LEVEL 02/09/2019 L-/S-SPINE PARAVERTEBRAL FACET INJ, 1 LEVEL performed by Chris Caballero DO at OR [facility] L-/S-SPINE PARAVERTEBRL FACET INJ,2 LEVELS 02/09/2019 L-/S-SPINE PARAVERTEBRAL FACET INJ, 2 LEVELS performed by Chris Dioni Caballero DO at OR [facility] LUMBAR DISC ARTHROPLAST,REMV,ADDL INTERSPCE 01/2010 Dr Potts LUMBAR SPINE FUSION W/BONE GRAFT 02/23/2005 Dr. Potts - [facility] LUMBAR SPINE FUSION W/BONE GRAFT 07/19/2016 Dr. Potts - [facility] MAMMOGRAM SCREENING-BILATERAL 02/1999 REMOVAL OF OVARY/OVIDUCT(S) 18 yo right REMOVE CATARACT, INSERT LENS PROSTH 12/2004 bilateral - [facility] REMOVE GALLBLADDER REVERSE TOTAL SHOULDER ARTHROPLASTY Left 09/29/2020 [facility] [place] SACROILIAC JOINT INJECT W/GUIDANCE 11/13/2018 INJECTION SACROILIAC JOINT performed by Toomsuba Dioni Caballero DO at OR [facility] SACROILIAC JOINT INJECT W/GUIDANCE 12/11/2018 INJECTION SACROILIAC JOINT performed by Toomsuba Dioni Caballero DO at OR [facility] SHOULDER ARTHROSCOPY/SURGERY 06/07/2010 [facility] - [facility]- right shoulder repair SPINAL FUSION, LUMBAR, COMBINED 07/19/2016 Dr. Potts- [facility] TOTAL ABD HYSTERECTOMY W/WO REMOVAL OF TUBE(S) 26 yo one ovary still in VERTEBRAL ARTERY CATHETER PLACEMENT Bilateral 03/27/2024 CATHETER PLACEMENT VERTEBRAL ARTERY, performed by Yann Jackson MD at [facility] VERTEBRAL ARTERY CATHETER PLACEMENT Bilateral 04/15/2024 CATHETER PLACEMENT VERTEBRAL ARTERY, performed by Yann Jackson MD at OR [facility] Review of patient's allergies indicates: Allergen Reactions Ampicillin Hives/trouble breathing Azithromycin hives and angioedema Ranitidine rash Family History Problem Relation Name Age of Onset Other (CAD) Father Hypertension Mother Social History Tobacco Use Smoking status: Every Day Current packs/day: 1.00 Average packs/day: 1 pack/day for 57.7 years (57.7 ttl pk-yrs) Types: Cigarettes Start date: 1965 Smokeless tobacco: Never Tobacco comments: 06/19/24 1/2 pack daily, declined pamphlet Substance Use Topics Alcohol use: No Vaping/E-Cigarette Use Vaping/E-Cigarette Use Never Assessed Vaping/E-Cigarette Substances Vaping/E-Cigarette Devices ROS: -Per HPI OBJECTIVE: BP 154/82 | Pulse 71 | Temp 96.4 F (35.8 C) | Wt 163 lb (73.9 kg) | SpO2 97% | BMI 27.98 kg/m| BSA 1.83 m PHYSICAL EXAM: Vitals are reviewed General:. NAD, well developed HEENT:. Normal Conjunctiva, EOMI Abd:. soft, ND, NT Psych:. AAOx3, normal affect ASSESSMENT/PLAN: BP is elevated therefor started the pt on lisinopril 20mg daily - nurse visitin 2 weeks for BP check Recheck the urine for dysuria Will reach out to vascular regarding the duration of eliquis Pt likely needs to be on [facility] plavix Continue crestor and plavix for hx of PAD HTN, goal below 140/90 (Primary) - Lisinopril 20 MG Oral Tablet (Prinivil); Take 1 Tablet by mouth in the morning. Dysuria - URINALYSIS WITH MICROSCOPIC EXAM - CULTURE, URINE, QUANTITATIVE PAD (peripheral artery disease) (HCC) Carotid-cavernous fistula History of UTI CKD (chronic kidney disease), stage II S/P insertion of iliac artery stent History of thromboembolism Follow-up: Return in about 3 months (around 09/23/2024). | Check-out note: With me Nurse visit in 2 weeks for BP check I spent a total of 40-54 minutes (exact time 41 mins) on the date of service in preparation, delivery, and documentation of the care provided to Josefa Ramírez excluding any time spent in the performance of separately billed services or time spent by another provider/QHP. Bharati Wang MD Family medicine, [place] [address] documented in this encounter Nursing Notes * Sandra Recinos CMA - 06/25/2024 9:30 AM EST She is here for a 4 week recheck. She is doing well. The coumadin is causing her to get spots on her arms. documented in this encounter Plan of Treatment Upcoming Encounters Date Type Department Care Team (Late st Contact Info) Description 07/09/2024 1:00 PM EST Nurse Only Ancillary [address] [place] [phone] [place] [facility] [address] [place] [address] 08/25/2024 10:00 AM EDT Office Visit Family Medicine [address] [place] [phone] Bharati Wang MD [address] [place] [address] [place] [address] 09/10/2024 11:30 AM EDT Office Visit [facility] [place] [address] [place] [address] Yann Jackson MD [facility] [place] [phone] 09/18/2024 12:00 PM EDT Appointment Vascular Lab [place] [address] [place] [address] 09/18/2024 12:30 PM EDT Appointment [facility] [place] [address] [place] [address] 09/18/2024 1:20 PM EDT Office Visit Vascular S[facility] [place] [address] [place] [address] Samson Dennis MD [facility] [place] [address] Pending Results Name Type Priority Associated Diagnoses Date /Time URINALYSIS WITH MICROSCOPIC EXAM Lab Routine Dysuria 06/25/2024 10:16 AM EST CULTURE, URINE, QUANTITATIVE Lab Routine Dysuria 06/25/2024 10:16 AM EST Scheduled Procedures Name Priority Associated Diagnoses Date/Ti me ESOPHAGOGASTRODUODENOSCOPY ( EGD), FLEXIBLE, TRANSORAL, DIAGNOSTIC Recall Contreras esophagus Health Maintenance Due Date Last Done Comments Alpha-1 Antitrypsin 1953 Adult Wellness Visit 2002 DXA Scan 04/06/2018 04/06/2016, 09/2012, 02/08/2011, Additional history exists DISCUSS TOBACCO CESSATION (REFER TO SMARTSET #6311) 08/01/2018 08/01/2017 (Discussed) DTap/Tdap Vaccines (2 - [...] D LEVEL ONCE IN A LIFETIME-USE SMARTSET# 55558 Completed 02/12/2018, 04/25/2015, 09/24/2014, Additional history exists [...] this encounter Medical Devices Implanted Type Area It Support Consultant Device Identifier Shelf Expiration Date Model / Serial / Lot Coil Target 3d [id number] - [id number] Implanted:Qty : 1 on 04/15/2024 by Yann Jackson MD at OR [facility] N/A: Head ANNAMARIA : NEUROVASCULAR [id number] 12/16/2024 [id number] 60 / / [id number] 6cm, Coil Swiftpac Implanted:Qty : 1 on 04/15/2024 by Yann Jackson MD at OR [facility] N/A: Head [employer] 12/16/2028 [id number] / / [id number] 45cm, Coil [employer]pac Implanted:Qty : 1 on 04/15/2024 by Yann Jackson MD at OR [facility] N/A: Head [employer] 12/16/2028 [id number] / / [id number] 60cm, Coil [employer]pac Implanted:Qty : 1 on 04/15/2024 by Yann Jackson MD at OR [facility] N/A: Head [employer] 11/02/2028 [id number] / / [id number] Coil Target 3d [id number] - [id number] Implanted:Qty : 1 on 04/15/2024 by Yann Jackson MD at OR [facility] N/A: Head [employer]IA : NEUROVASCULAR [id number] 12/24/2024 [id number] 60 / / [id number] Coil Target 360 Soft [id number] - [id number] Implanted:Qty : 1 on 04/15/2024 by Yann Jackson MD at OR [facility] N/A: Head [employer]NAM[employer] : NEUROVASCULAR [id number] 06/23/2025 [id number] / / [id number] Coil Target 360 Ultra [id number] - [id number] Implanted:Qty : 1 on 04/15/2024 by Yann Jackson MD at OR [facility] N/A: Head ANNAMARIA : NEUROVASCULAR [id number] 05/04/2026 [id number] 00 / / [id number] Coil Target 360 Ultra [id number] - [id number] Implanted:Qty : 1 on 04/15/2024 by Yann Jackson MD at OR [facility] N/A: Head ANNAMARIA : NEUROVASCULAR [id number] 02/03/2025 [id number] 80 / / [id number] 10cm, Coil [employer] Implanted:Qty : 2 on 04/15/2024 by Yann Jackson MD at OR [facility] N/A: Head [employer] 12/24/2028 [id number] / / [id number] 30cm, Coil [employer] Implanted:Qty : 1 on 04/15/2024 by Yann Jackson MD at OR [facility] N/A: Head [employer] 12/24/2028 [id number] / / [id number] 60cm, Coil [employer] Implanted:Qty : 1 on 04/15/2024 by Yann Jackson MD at OR [facility] N/A: Head [employer] 11/02/2028 [id number] / / [id number] 6cm, Coil [employer] Implanted:Qty : 1 on 04/15/2024 by Yann Jackson MD at OR [facility] N/A: Head [employer] 12/16/2028 [id number] / / [id number] Stent Vasc Hep [id number] - [id number] Implanted:Qty : 1 on 04/16/2024 by Smason Dennis MD at OR [facility] Left: Iliac [employer] [id number] 12/29/2026 [id number] / [id number] / [id number] documented as of this encounter Visit Diagnoses Diagnosis HTN, goal below 140/90- Primary Unspecified essential hypertension Dysuria PAD (peripheral artery disease) (HCC) Peripheral vascular disease, unspecified Carotid-cavernous fistula Arteriovenous fistula, acquired History of UTI Personal history of urinary (tract) infection CKD (chronic kidney disease), stage II Chronic kidney disease, Stage II (mild) S/P insertion of iliac artery stent Other postprocedural status History of thromboembolism Personal history of venous thrombosis and embolism COPD, mild (HCC) Chronic airway obstruction, not elsewhere classified Age-related osteoporosis without current pathological fracture Senile osteoporosis Dyslipidemia Other and unspecified hyperlipidemia documented in this encounter Advance Directives * [...] Discussed due to patient's condition Care Teams Healthcare Network Pricing Consultant Relationship Specialty Start Date End Date Bharati Wang MD [address] [place] [address] [place] [phone] PCP - General Family Medicine 10/02/21 documented as of this encounter"
--- OUTSIDE RECORDS SUMMARY | 2024-07-03 22:58 | External Medical Summary | Summary of Care ---
Author Name Unknown Organization [facility] Address [address] [place] [address] Phone [phone] Care Team Providers Care Veterans' Coordinator Name Role Phone Bharati Wang MD Primary Care Provide r Encounter Details Date Type Department Care Team (Latest Contact Info) Description 06/19/2024 12:19 PM [facility] [place] Hospital Encounter Vascular Lab [facility], [place] [address] [place] [address] Arrived Discharge Disposition: Home - Self Care Allergies Active Allergy Reactions Criticality Noted Date Comments Ampicillin 09/23/2003 Hives/trouble breathing Azithromycin 09/24/2003 hives and angioedema Ranitidine 10/29/2002 rash documented as of this encounter (statuses as of 06/20/2024) Medications VITAMIN D 2000 UNITS PO CAPS [...] Tablet before bedtime. 60 Tablet 05/15/2024 Active documented as of this encounter (statuses as of 06/20/2024) Active Problems Problem Noted Date Diagnosed Date PVD (peripheral vascular disease) 06/19/2024 Age-related osteoporosis wit hout current [...] COPD, mild 09/24/2018 Vitamin B12 deficiency 02/12/2018 HTN, goal below 150/90 10/31/2017 Persistent insomnia 06/09/2013 Vitamin D deficiency 05/18/2009 Irritable bowel syndrome with constipation 09/09 Allergic rhinitis due to pollen documented as of this encounter (statuses as of 06/20/2024) Resolved Problems Problem Noted Date Diagnosed Date [...] fracture of humerus 08/07/2019 01/22/2024 Overview (08/10/2019): [place] Bilateral sciatica 06/01/2019 4 Spasm of muscle 02/25/2019 08/10/2019 HZV (herpes zoster virus) po st herpetic neuralgia 09/24/2018 07/27/2021 Benign hypertension with CKD (chronic kidney disease) stage III 06/23/2018 11/10/2020 Overview: Per CKD protocol Venous insufficiency 07/19/2017 018 Essential hypertension with [...] as of this encounter (statuses as of 06/20/2024) Immunizations Name Administration Dates Next Due COVID-19 [...] Job Start Date Job End Date 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 Not on file Not on file Not on file documented as of this encounter Plan of Treatment Upcoming Encounters Date Type Department Care Team (Late st Contact Info) Description 06/22/2024 9:00 AM EST Office Visit Family Medicine [address] [phone] Bharati Wang MD [address] [place] [address] [place] [address] 09/10/2024 11:30 AM EDT Office Visit Neurosurgery, [place] [address] [place] [address] Yann Jackson MD [address] [place] [address] 09/18/2024 12:00 PM EDT Appointment Vascular Lab [facility] [address] [place] [address] 09/18/2024 12:30 PM EDT Appointment Vascular Lab [facility] [address] [place] [address] 09/18/2024 1:20 PM EDT Office Visit Vascular Surg [facility] [address] [place] [address] Samson Dennis MD [address] [place], [place] [id number] Scheduled Procedures Name Priority Associated Diagnoses Date/Ti me ESOPHAGOGASTRODUODENOSCOPY ( EGD), FLEXIBLE, TRANSORAL, DIAGNOSTIC Recall Contreras esophagus Health Maintenance Due Date Last Done Comments Alpha-1 Antitrypsin 1953 Adult Wellness Visit 2002 DXA Scan 04/06/2018 04/06/2016, 09/2012, 02/08/2011, Additional history exists DISCUSS TOBACCO CESSATION (REFER TO SMARTSET #0248) 08/01/2018 08/01/2017 (Discussed) DTap/Tdap Vaccines (2 - Td or Tdap) 06/09/2023 06/09/2013, 01/08/2008 COVID-19 Vaccine ( season) 2024 02/27/2022, 03/28/2021, 07/24/2020, Additional history exists Contreras's Esophagus Surveilance 08/29/2024 08/29/2021, 08/29/2021, 11/14/2020, Additional history exists O2 ASSESSMENT COMPLETED IN PAST YEAR FOR COPD 04/16/2025 04/16/2024 Depression Screening 04/20/2025 04/20/2024 Albumin/Creatinine Ratio 03/02/2027 03/02/2024, 08/25 Pneumococcal Vaccine: 50+ Years Completed 08/12/2014, 03/11/2002 *BISPHONATE OR OTHER ACCEPTABLE MEDICATION NEEDED FOR OSTEOPOROSIS (REFER TO SMARTSET #1146) Addressed 08/01/2017 (Discussed) Overridden with the intention of not completing the topic VITAMIN D LEVEL ONCE IN A LIFETIME-USE SMARTSET# 47570 Completed 02/12/2018, 04/25/2015, 09/24/2014, Additional history exists Zoster Vaccines Completed 07/06/2019, 11/24, 09/13/2010 RETIRED - COLONOSCOPY-EVERY 5 YRS AGES 18-100 Discontinued 07/27/2020, 07/27/2020, 03/08/2015, Additional history exists Influenza Vaccine (FLU shot) Completed 03/02/2024, 02/28/2023, [...] this encounter Medical Devices Implanted Type Area Supervisor Fabrication Device Identifier Shelf Expiration Date Model / Serial / Lot Coil Target 3d [id number] - [id number] Implanted:Qty : 1 on 04/15/2024 by Yann Jackson MD [place] [facility] [place]: Head ANNAMARIA : NEUROVASCULAR [id number] 12/16/2024 [id number] / / [id number] 6cm, Coil Swiftpac Implanted:Qty : 1 on 04/15/2024 by Yann Jackson MD at [place] [facility] [place] N/A: Head [employer] 12/16/2028 [id number] / / [id number] 45cm, Coil Swiftpac Implanted:Qty : 1 on 04/15/2024 by Yann Jackson MD at [place] [facility] [place] N/A: Head [employer] 12/16/2028 [id number] / / [id number] 60cm, Coil Swiftpac Implanted:Qty : 1 on 04/15/2024 by Yann Jackson MD at [place] [facility] [place] N/A: Head [employer] 11/02/2028 [id number] / / [id number] Coil Target 3d 2vss0bj - [id number] Implanted:Qty : 1 on 04/15/2024 by Yann Jackson MD at OR [facility] [place] N/A: Head ANNAMARIA : NEUROVASCULAR [id number] 12/24/2024 [id number] 60 / / [id number] Coil Target 360 Soft 2hhh40dv - [id number] Implanted:Qty : 1 on 04/15/2024 by Yann Jackson MD at [place] [facility] [place] N/A: Head ANNAMARIA : NEUROVASCULAR [id number] 06/23/2025 [id number] / / [id number] Coil Target 360 Ultra 2hxz37iv - [id number] Implanted:Qty : 1 on 04/15/2024 by Yann Jackson MD at [place] [facility] [place] N/A: Head ANNAMARIA : NEUROVASCULAR [id number] 05/04/2026 [id number] 00 / / [id number] Coil Target 360 Ultra 2bko9sd - [id number] Implanted:Qty : 1 on 04/15/2024 by Yann Jackson MD at [place] [facility] [place] N/A: Head ANNAMARIA : NEUROVASCULAR [id number] 02/03/2025 [id number] 80 / / [id number] 10cm, Coil Swiftpac Implanted:Qty : 2 on 04/15/2024 by Yann Jackson MD at OR [facility] [place] N/A: Head [employer] 12/24/2028 [id number] / / [id number] 30cm, Coil Swiftpac Implanted:Qty : 1 on 04/15/2024 by Yann Jackson MD at [place] [facility] [place] N/A: Head [employer] 12/24/2028 [id number] / / [id number] 60cm, Coil Swiftpac Implanted:Qty : 1 on 04/15/2024 by Yann Jackson MD at OR [facility] [place] N/A: Head [employer] 11/02/2028 [id number] / / [id number] 6cm, Coil Swiftpac Implanted:Qty : 1 on 04/15/2024 by Yann Jackson MD at OR [facility] [place] N/A: Head [employer] 12/16/2028 [id number] / / [id number] Stent Vasc Hep 8mmx7.5u844ko - [id number] Implanted:Qty : 1 on 04/16/2024 by Samson Dennis MD at [place] [facility] [place] Left: Iliac [employer] [id number] 12/29/2026 [id number] / [id number] / [id number] documented as of this encounter Procedures Procedure Name Priority Date/Time Associated Diagnosis Comments VASC CHICKALOON ART DUP LTD LE Routine 06/19/2024 1:14 PM EST PAD (peripheral artery disease) (HCC) documented in this encounter Results * [employer] CHICKALOON ART DUP LTD LE (06/19/2024 1:14 PM EST) Anatomical Region Laterality Modality Lower Extremity, Vascular Ultras ound Narrative 06/19/2024 1:20 PM EST VASCULAR LAB RESULTS DATE OF EXAM: 06/19/24 PRESENTING CONDITIONS: LT LE angio, iliac thromboembolectomy, GREGG stent Immediately before proceeding with the vascular lab procedure reported below, the identity of the patient, the correct exam and the correct procedural site were verified. Gardner scale, color flow and spectral doppler were performed for this examination. PHYSICIAN REPORT: LOWER EXTREMITY ARTERIAL DUPLEX The distal aorta has a velocity of 71 cm/sec with a biphasic waveform. Left common iliac artery has a velocity of 81 cm/sec with a triphasic waveform. Left external iliac artery has a velocity of 108 cm/sec with a triphasic waveform. Left common femoral artery has a velocity of 125 cm/sec with a triphasic waveform. Left deep femoral artery has a velocity of 156 cm/sec with a biphasic waveform. Left superficial femoral artery, at origin has a velocity of 151 cm/sec with a triphasic waveform. Left superficial femoral artery, proximal thigh has a velocity of 108 cm/sec with a triphasic waveform. CONCLUSIONS: Limited imaging due to overlying bowel gas There is no evidence of dissection identified in the segments visualized The left lower extremity arteries demonstrate no significant stenosis. Susan [facility] RAD VASCULAR Negra l Result documented in this encounter Advance Directives * [...] Discussed due to patient's condition Care Teams Veterans' Coordinator Relationship Specialty Start Date End Date Bharati Wang MD [address] [place] [address] [place] [phone] PCP - General Family Medicine 10/02/21 documented as of this encounter
--- OUTSIDE RECORDS SUMMARY | 2024-07-03 22:58 | External Medical Summary | Summary of Care ---
Author Name Unknown Organization [facility] Address [address] [place] [address] Phone [phone] Care Team Providers Care Distributor Publications Name Role Phone Bharati Wang MD Primary Care Provide r Reason for Visit * Reason Onset Date Comments Advice 06/25/2024 Encounter Details Date Type Department Care Team (Late st Contact Info) Description 06/25/2024 Telephone Family Medicine [address] [phone] Bharati Wang MD [address] [place] [address] [place] [address] Advice Allergies Active Allergy [...] fracture of humerus 08/07/2019 01/22/2024 Overview (08/10/2019): [facility] Bilateral sciatica 06/01/2019 4 Spasm of [...] Job Start Date Job End Date 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 Not on file Not on file Not on file documented as of this encounter Miscellaneous Notes * Telephone Encounter - Bharati Wang MD [...] 07/09/2024 1:00 PM EST Nurse Only Ancillary [address] [place] [address] [place], Nurse [address] [place] [address] 08/25/2024 10:00 AM EDT Office Visit Family Medicine [place] [place] [phone] Bharati Wang MD [address] [place] [address] [place] [address] 09/10/2024 11:30 AM EDT Office Visit [facility], [place] [address] [place] [address] Yann Jackson MD [address] [place] [phone] 09/18/2024 12:00 PM EDT Appointment Vascular Lab [place] [address] [place] [address] 09/18/2024 12:30 PM EDT Appointment Vascular Lab [facility] [address] [place] [address] 09/18/2024 1:20 PM EDT Office Visit Vascular Surg [facility] [address] [place] [address] Samson Dennis MD [address], [place] [phone] Scheduled Procedures Name Priority Associated Diagnoses Date/Ti me ESOPHAGOGASTRODUODENOSCOPY ( EGD), FLEXIBLE, TRANSORAL, DIAGNOSTIC Recall Contreras esophagus Health Maintenance Due Date Last Done Comments Alpha-1 Antitrypsin 1953 Adult Wellness Visit 2002 DXA Scan 04/06/2018 04/06/2016, 09/2012, 02/08/2011, Additional history exists DISCUSS TOBACCO CESSATION (REFER TO SMARTSET #3291) 08/01/2018 08/01/2017 (Discussed) DTap/Tdap Vaccines (2 - [...] D LEVEL ONCE IN A LIFETIME-USE SMARTSET# 43792 Completed 02/12/2018, 04/25/2015, 09/24/2014, Additional history exists [...] this encounter Medical Devices Implanted Type Area Vending Machine Servicer Device Identifier Shelf Expiration Date Model / Serial / Lot Coil Target 3d 5wmt9mx - [id number] Implanted:Qty : 1 on 04/15/2024 [place] [facility] [place] Head ANNAMARIA : NEUROVASCULAR [id number] 12/16/2024 [id number] 60 / / [id number] 6cm, Coil Swiftpac Implanted:Qty : 1 on 04/15/2024 by Yann [place] MD [place] [facility] [place]: Head [employer] 12/16/2028 [id number] / / [id number] 45cm, Coil Swiftpac Implanted:Qty : 1 on 04/15/2024 by Yann [place] [facility] [place]: Head [employer] 12/16/2028 [id number] / / [id number] 60cm, Coil Swiftpac Implanted:Qty : 1 on 04/15/2024 by Yann [place] [facility] [place]: Head [employer] 11/02/2028 [id number] / / [id number] Coil Target 3d 1slm1vl - [id number] Implanted:Qty : 1 on 04/15/2024 by Yann [place] [facility] [place]: Head ANNAMARIA : NEUROVASCULAR [id number] 12/24/2024 [id number] 60 / / [id number] Coil Target 360 Soft 4yuk55ne - [id number] Implanted:Qty : 1 on 04/15/2024 by Yann [place] [facility] [place]: Head ANNAMARIA : NEUROVASCULAR [id number] 06/23/2025 [id number] 00 / / [id number] Coil Target 360 Ultra 1lfb97ag - [id number] Implanted:Qty : 1 on 04/15/2024 by Yann [place] [facility] [place]: Head ANNAMARIA : NEUROVASCULAR [id number] 05/04/2026 [id number] 00 / / [id number] Coil Target 360 Ultra 2wkh8mg - [id number] Implanted:Qty : 1 on 04/15/2024 by Yann [place] [facility] [place]: Head ANNAMARIA : NEUROVASCULAR [id number] 02/03/2025 [id number] 80 / / [id number] 10cm, Coil Swiftpac Implanted:Qty : 2 on 04/15/2024 by Yann [place] MD [place] [facility] [place]: Head [employer] 12/24/2028 [id number] / / [id number] 30cm, Coil Swiftpac Implanted:Qty : 1 on 04/15/2024 by Yann [place] [facility] [place]: Head [employer] 12/24/2028 [id number] / / [id number] 60cm, Coil Swiftpac Implanted:Qty : 1 on 04/15/2024 by Yann [place] [facility] [place]: Head [employer] 11/02/2028 [id number] / / [id number] 6cm, Coil Swiftpac Implanted:Qty : 1 on 04/15/2024 by Yann [place] [facility] [place]: Head [employer] 12/16/2028 [id number] / / [id number] Stent Vasc Hep 8mmx7.6i508qq - [id number] Implanted:Qty : 1 on 04/16/2024 by Samson [place] [facility] [place] Left: Iliac [employer] [id number] 12/29/2026 [id number] 2A / [id number] / [id number] documented as of this encounter Advance Directives [...] Discussed due to patient's condition Care Teams Distributor Publications Relationship Specialty Start Date End Date Bharati Wang MD [address] [place] [address] [place] [phone] PCP - General Family Medicine 10/02/21 documented as of this encounter
--- OUTSIDE RECORDS SUMMARY | 2024-07-03 22:58 | External Medical Summary | Summary of Care ---
Author Name Unknown Organization [facility] Address [address] [place] [address] Phone [phone] Care Team Providers Care Network Operations Center Engineer Name Role Phone Bharati Wang MD Primary Care Provide r Encounter Details Date Type Department Care Team (Late st Contact Info) Description 03/26/2024 [address]phone [address] [place] [address] Services, Scheduling [address] [place] [address] Allergies Active Allergy Reactions Criticality Noted Date Comments Ampicillin 09/23/2003 Hives/trouble breathing Azithromycin 09/24/2003 hives and angioedema Ranitidine 10/29/2002 rash documented as of this encounter (statuses as of 06/26/2024) Medications VITAMIN D 2000 UNITS PO CAPS [...] in the evening 16 g 02/03/2024 Active documented as of this encounter (statuses as of 06/26/2024) Active Problems Problem Noted Date Diagnosed Date [...] as of this encounter (statuses as of 06/26/2024) Resolved Problems Problem Noted Date Diagnosed Date Resolved Date Sepsis 04/22/2024 04/24/2024 UTI (urinary tract infection) 04/22/2024 04/24/2024 Acute blood loss anemia 04/22/2024 11/2 01/2024 Chronic kidney disease, stage 3a 12/05/2020 03/02/2024 Overview: Per CKD protocol Benign hypertension with sta ge 3a chronic kidney disease 11/08/2020 01/22/2024 Overview: Per CKD protocol Gastro-esophageal reflux dis ease without esophagitis 06/30/2020 01/22/2024 Senile osteoporosis 06/30/2020 01/26/20 21 Occlusion and stenosis of ri ght carotid artery 06/30/2020 07/27/2021 History of fracture of humerus 08/07/2019 01/22/2024 Overview (08/10/2019): [facility] Bilateral sciatica 06/01/2019 4 Spasm of [...] as of this encounter (statuses as of 06/26/2024) Immunizations Name Administration Dates Next Due COVID-19 [...] Job Start Date Job End Date 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 She needs to know so her could get a hotel room please call back as soon as possible Phone number for nurse to call back: [phone] documented in this encounter Plan of Treatment Upcoming Encounters Date Type Department Care Team (Late st Contact Info) Description 07/09/2024 1:00 PM EST Nurse Only Ancillary [address] [place] [address] [place], Nurse [address] [place] [address] 08/25/2024 10:00 AM EDT Office Visit Family Medicine [address] [place] [phone] Bharati Wang MD [address] [place] [address] [place] [address] 09/10/2024 11:30 AM EDT Office Visit Neurosurgery, [place] [address] [place] [address] Yann Jackson MD [facility] [place] [address] 09/18/2024 12:00 PM EDT Appointment Vascular Lab [place] [address] [place] [address] 09/18/2024 12:30 PM EDT Appointment Vascular Lab [address] [phone] 09/18/2024 1:20 PM EDT Office Visit Vascular Surg [place] [address] [place] [address] Samson Dennis MD [facility] [address] [place], [place] [phone] Scheduled Procedures Name Priority Associated Diagnoses Date/Ti me ESOPHAGOGASTRODUODENOSCOPY ( EGD), FLEXIBLE, TRANSORAL, DIAGNOSTIC Recall Contreras esophagus Health Maintenance Due Date Last Done Comments Alpha-1 Antitrypsin 1953 Adult Wellness Visit 2002 DXA Scan 04/06/2018 04/06/2016, 09/2012, 02/08/2011, Additional history exists DISCUSS TOBACCO CESSATION (REFER TO SMARTSET #1753) 08/01/2018 08/01/2017 (Discussed) DTap/Tdap Vaccines (2 - [...] D LEVEL ONCE IN A LIFETIME-USE SMARTSET# 43101 Completed 02/12/2018, 04/25/2015, 09/24/2014, Additional history exists [...] this encounter Medical Devices Implanted Type Area Marketing Campaign Analyst Device Identifier Shelf Expiration Date Model / Serial / Lot Coil Target 3d 4qac6hr - [id number] Implanted:Qty : 1 on 04/15/2024 by Yann Jackson MD at [place] [facility] [place]/A: Head ANNAMARIA : NEUROVASCULAR [id number] 12/16/2024 [id number] 60 / / [id number] 6cm, Coil Swiftpac Implanted:Qty : 1 on 04/15/2024 by Yann Jackson MD at [place] [facility] N/A: Head [employer] 12/16/2028 [id number] / / [id number] 45cm, Coil Swiftpac Implanted:Qty : 1 on 04/15/2024 by Yann Jackson MD at [place] [facility] N/A: Head [employer] 12/16/2028 [id number] / / [id number] 60cm, Coil Swiftpac Implanted:Qty : 1 on 04/15/2024 by Yann Jackson MD at [place] [facility] N/A: Head [employer] 11/02/2028 [id number] / / [id number] Coil Target 3d 0rkx8lo - [id number] Implanted:Qty : 1 on 04/15/2024 by Yann Jackson MD at [place] [facility] N/A: Head ANNAMARIA : NEUROVASCULAR [id number] 12/24/2024 [id number] 60 / / [id number] Coil Target 360 Soft 6rqt69le - [id number] Implanted:Qty : 1 on 04/15/2024 by Yann Jackson MD at [place] [facility] N/A: Head ANNAMARIA : NEUROVASCULAR [id number] 06/23/2025 [id number] / / [id number] Coil Target 360 Ultra 3huw34zj - [id number] Implanted:Qty : 1 on 04/15/2024 by Yann Jackson MD at [place] [facility] N/A: Head ANNAMARIA : NEUROVASCULAR [id number] 05/04/2026 [id number] / / [id number] Coil Target 360 Ultra 7urj1ll - [id number] Implanted:Qty : 1 on 04/15/2024 by Yann Jackson MD at [place] [facility] N/A: Head ANNAMARIA : NEUROVASCULAR [id number] 02/03/2025 [id number] 80 / / [id number] 10cm, Coil Swiftpac Implanted:Qty : 2 on 04/15/2024 by Yann Jackson MD at [place] [facility] N/A: Head [employer] 12/24/2028 [id number] / / [id number] 30cm, Coil Swiftpac Implanted:Qty : 1 on 04/15/2024 by Yann Jackson MD at [place] [facility] N/A: Head [employer] 12/24/2028 [id number] / / [id number] 60cm, Coil Swiftpac Implanted:Qty : 1 on 04/15/2024 by Yann Jackson MD at [place] [facility] N/A: Head [employer] 11/02/2028 [id number] / / [id number] 6cm, Coil Swiftpac Implanted:Qty : 1 on 04/15/2024 by Yann Jackson MD at [place] [facility] N/A: Head [employer] 12/16/2028 [id number] / / [id number] Stent Vasc Hep 8mmx7.4n488ih - [id number] Implanted:Qty : 1 on 04/16/2024 by Samson [place] MD at [place] [facility] Left: Iliac [employer] [id number] 12/29/2026 [id number] / [id number] / [id number] documented as of this encounter Additional Health [...] Discussed due to patient's condition Care Teams Network Operations Center Engineer Relationship Specialty Start Date End Date Bharati Wang MD [address] [place] [address] [place] [phone] PCP - General Family Medicine 10/02/21 documented as of this encounter
--- OUTSIDE RECORDS SUMMARY | 2024-07-03 22:58 | External Medical Summary ---
Author Name Unknown Address Unknown Organization K01:[place] [facility] [place] [address] [facility] [address] Laboratory Report Ordering Provider Test Date Status BAUTISTA KELLY 06/25/2024 10:16:14 Negra l Observation Date Value Abnormality Reference (Units ) Status Bacteria identified in Specimen by Culture 06/25/2024 10:16:14 [id number]^ESCHE RICHIA COLI Abnormal Final >100,000 colonies/mL Escheri simi coli Performing Location [place] [facility] [place] [address] [facility] [address] Ordering Provider Test Date Status BAUTISTA KELLY 06/25/2024 10:16:14 Negra l Observation Date Value Abnormality Reference (Units ) Status Ampicillin 06/25/2024 10:16:14 <=2 Susceptible Final Cefazolin 06/25/2024 10:16:14 <=4 Susceptible Final Cefepime susceptibility 06/25/2024 10:16:14 <=1 Susceptible Final Ceftriaxone suceptibility 06/25/2024 10:16:14 <=1 Susceptible Final Ciprofloxacin 06/25/2024 10:16:14 <=0.25 Susceptible Final Due to serious side effects, the FDA has advised against using Ciprofloxacin to treat uncomplicated UTIs and respiratory tract infections unless there are no alternative treatment options. Gentamicin susceptibility 06/25/2024 10:16:14 <=1 Susc eptible Final Nitrofurantoin susceptibility 06/25/2024 10:16:14 <=16 Susceptible Final Piperacillin + Tazobactamsusceptibility 06/25/2024 10:16:14 <=4 Susceptible Final TMP-SMZ susceptibility 06/25/2024 10:16:14 <=20 Suscept ible Final Test: Culture, Urine, Quanti tative
Specimen Source: Urine, Clean Catch
Specimen Type: Urine
Specimen Date: 06/25/2024 1016
Result Date: 06/27/2024 1302
Result Status: Final result
Abnormal: Yes
Resulting Lab: LABORATORY [facility]
[address]
[place] [address]

CULTURE

>100,000 colonies/mL Escherichia coli (Abnormal)

SUSCEPTIBILITY

Escherichia coli
METHOD MICROBROTH
DILUTIONS

AMPICILLIN <=2 Susceptible
CEFAZOLIN <=4 Susceptible
CEFEPIME <=1 Susceptible
CEFTRIAXONE <=1 Susceptible
CIPROFLOXACIN <=0.25 Susceptible
[1]
GENTAMICIN <=1 Susceptible
NITROFURANTOIN <=16 Susceptible
PIPERACILLIN TAZOBACTAM <=4 Susceptible
TRIMETH/SULFAMETHOXAZOLE <=20 Susceptible

[1] Due to serious side effects, the FDA has advised against using
Ciprofloxacin to treat uncomplicated UTIs and respiratory tract infections
unless there are no alternative treatment options.

null Performing Location [place] [facility] [place] [address] [facility] [address]
--- OUTSIDE RECORDS SUMMARY | 2024-07-03 22:58 | External Medical Summary ---
Author Name Unknown Address Unknown Organization K01:LABORATORY [facility] [place] [address] [address] Laboratory Report Ordering Provider Test Date Status BAUTISTA KELLY 06/25/2024 10:16:14 Negra l Observation Date Value Abnormality Reference (Units ) Status Color of Urine by Auto 06/25/2024 10:16:14 Light Yellow Colorless, Light Yellow, Yellow, Dark Yellow Final Clarity, Urine 06/25/2024 10:16:14 Slightly Cloudy Abnormal Clear Final Glucose [Mass/volume] in Urine by Automated test strip 06/25/2024 10:16:14 Negative Negative (mg/dL) Final Bilirubin.total [Presence] in Urine by Automated test strip 06/25/2024 10:16:14 Negative Negative Final Ketones [Mass/volume] in Urine by Automated test strip 06/25/2024 10:16:14 Negative Negative (mg/dL) Final Specific gravity, Urine 06/25/2024 10:16:14 1.011 1.003-1.030 Final Hemoglobin [Presence] in Urine by Automated test strip 06/25/2024 10:16:14 Trace Abnormal Negative Final pH, Urine 06/25/2024 10:16:14 6.0 5.0-7.5 (Units) Final Protein [Mass/volume] in Urine by Automated test strip 06/25/2024 10:16:14 Negative Negative (mg/dL) Final Urobilinogen [Mass/volume] in Urine by Automated test strip 06/25/2024 10:16:14 Normal Normal (mg/dL) Final Nitrite [Presence] in Urine by Automated test strip 06/25/2024 10:16:14 Negative Negative Final Leukocyte esterase [Presence] in Urine by Automated test strip 06/25/2024 10:16:14 Large Abnormal Negative Final RBC, Urine 06/25/2024 10:16:14 6-9 Abnormal 0-2 (/HPF) Final WBC, Urine 06/25/2024 10:16:14 50+ Abnormal 0-2 (/HPF) Final Bacteria [#/area] in Urine sediment by Microscopy high power field 06/25/2024 10:16:14 51-100 Abnormal 0-25 (/HPF) Final Performing Location LABORATORY [facility] [place] - [facility] [address] [facility] [address]
--- OUTSIDE RECORDS SUMMARY | 2024-07-03 22:58 | External Medical Summary | Summary of Care ---
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 Not on file Not on file documented as of this encounter Plan of Treatment Upcoming Encounters Date Type Department Care Team (Late st Contact Info) Description 06/22/2024 9:00 AM EST Office Visit Family Medicine [address] [phone] Bharati Wang MD [address] [place] [address] [place] [address] 09/10/2024 11:30 AM EDT Office Visit Neurosurgery, [place] [address] [place] [address] Yann Jackson MD [address] [place] [phone] 09/18/2024 12:00 PM EDT Appointment Vascular Lab [facility] [address] [place] [address] 09/18/2024 12:30 PM EDT Appointment Vascular Lab [facility] [address] [place] [address] 09/18/2024 1:20 PM EDT Office Visit Vascular Surg [facility] [address] [place], [place] [phone] Samson Dennis MD [address] [place], [place] [phone] Scheduled Procedures Name Priority Associated Diagnoses Date/Ti me ESOPHAGOGASTRODUODENOSCOPY ( EGD), FLEXIBLE, TRANSORAL, DIAGNOSTIC Recall Contreras esophagus Health Maintenance Due Date Last Done Comments Alpha-1 Antitrypsin 1953 Adult Wellness Visit 2002 DXA Scan 04/06/2018 04/06/2016, 09/2012, 02/08/2011, Additional history exists DISCUSS TOBACCO CESSATION (REFER TO SMARTSET #4841) 08/01/2018 08/01/2017 (Discussed) DTap/Tdap Vaccines (2 - Td or Tdap) 06/09/2023 06/09/2013, 01/08/2008 COVID-19 Vaccine ( - season) 2024 02/27/2022, 03/28/2021, 07/24/2020, Additional history [...] D LEVEL ONCE IN A LIFETIME-USE SMARTSET# 00762 Completed 02/12/2018, 04/25/2015, 09/24/2014, Additional history exists [...] this encounter Medical Devices Implanted Type Area Soap Drier Tender Device Identifier Shelf Expiration Date Model / Serial / Lot Coil Target 3d [id number] - [id number] Implanted:Qty : 1 on 04/15/2024 by Yann Jackson MD at OR [facility] [place] N/A: Head ANNAMARIA : NEUROVASCULAR [id number] 12/16/2024 [id number] 60 / / [id number] 6cm, Coil Swiftpac Implanted:Qty : 1 on 04/15/2024 by Yann Jackson MD at OR [facility] [place] N/A: Head [employer] 12/16/2028 [id number] / / [id number] 45cm, Coil Swiftpac Implanted:Qty : 1 on 04/15/2024 by Yann Jackson MD at OR [facility] [place] N/A: Head [employer] 12/16/2028 [id number] / / [id number] 60cm, Coil Swiftpac Implanted:Qty : 1 on 04/15/2024 by Yann Jackson MD at OR [facility] [place] N/A: Head [employer] 11/02/2028 [id number] / / [id number] Coil Target 3d [id number] - [id number] Implanted:Qty : 1 on 04/15/2024 by Yann Jackson MD at OR [facility] [place] N/A: Head ANNAMARIA : NEUROVASCULAR [id number] 12/24/2024 [id number] 60 / / [id number] Coil Target 360 Soft [id number] - [id number] Implanted:Qty : 1 on 04/15/2024 by Yann Jackson MD at OR [facility] [place] N/A: Head ANNAMARIA : NEUROVASCULAR [id number] 06/23/2025 [id number] 00 / / [id number] Coil Target 360 Ultra [id number] - [id number] Implanted:Qty : 1 on 04/15/2024 by Yann Jackson MD at OR [facility] [place] N/A: Head ANNAMARIA : NEUROVASCULAR [id number] 05/04/2026 [id number] 00 / / [id number] Coil Target 360 Ultra [id number] - [id number] Implanted:Qty : 1 on 04/15/2024 by Yann Jackson MD at OR [facility] [place] N/A: Head ANNAMARIA : NEUROVASCULAR [id number] 02/03/2025 [id number] 80 / / [id number] 10cm, Coil Swiftpac Implanted:Qty : 2 on 04/15/2024 by Yann Jackson MD at OR [facility] [place] N/A: Head [employer] 12/24/2028 [id number] / / [id number] 30cm, Coil Swiftpac Implanted:Qty : 1 on 04/15/2024 by Yann Jackson MD at OR [facility] [place] N/A: Head [employer] 12/24/2028 [id number] / / [id number] 60cm, Coil Swiftpac Implanted:Qty : 1 on 04/15/2024 by Yann Jackson MD at OR [facility] [place] N/A: Head [employer] 11/02/2028 [id number] / / [id number] 6cm, Coil Swiftpac Implanted:Qty : 1 on 04/15/2024 by Yann Jackson MD at OR [facility] [place] N/A: Head [employer] 12/16/2028 [id number] / / [id number] Stent Vasc Hep 8mmx7.9a413fn - [id number] Implanted:Qty : 1 on 04/16/2024 by Samson Dennis MD at OR [facility] [place] Left: Iliac [employer] [id number] 12/29/2026 [id number] / [id number] / [id number] documented as of this encounter Procedures Procedure Name Priority Date/Time Associated Diagnosis Comments VASC ANKLE BRACHIAL INDICES WITHOUT PPG (PAD) Routine 06/19/2024 1:03 PM EST PVD (peripheral vascular disease) (HCC) documented in this encounter Results * VASC ANKLE BRACHIAL INDICES WITHOUT PPG (PAD) (06/19/2024 1:03 PM EST) Anatomical Region Laterality Modality Extremity, Ankle, Vascular, Lower Extremity, Jacky t Ultrasound Impressions 06/19/2024 1:18 PM EST : HANNAH at rest is 1.22 on the right and 1.03 on the left. For the right lower extremity: Lower extremity Doppler Evaluation is normal at rest with no evidence of significant arterial occlusive disease. For the left lower extremity: Lower extremity Doppler Evaluation is normal at rest with no evidence of significant arterial occlusive disease. Patient has a history of revascularization of the left lower extremity. Narrative 06/19/2024 1:18 PM EST VASCULAR LAB RESULTS DATE OF EXAMINATION: 06/19/24 INDICATION: pvd ANKLE BRACHIAL INDEX OF THE LOWER EXTREMITIES Immediately before proceeding with the vascular lab procedure reported below, the identity of the patient, the correct exam and the correct procedural site were identified. Continuous wave doppler and appropriate size pressure cuffs were utilized during the examination. Findings: The right and left brachial artery blood pressures are 150 mmHg and 163 mmHg respectively. On the right, the posterior tibial artery waveform is triphasic and has an amplitude which is good. . The right dorsalis pedis artery waveform is triphasic and has an amplitude which is excellent. The right peroneal artery waveform is triphasic and has an amplitude which is excellent. The tibial pressures range from 192 mmHg to 200 mmHg. On the left, the posterior tibial artery waveform is triphasic and has an amplitude which is excellent. . The left dorsalis pedis artery waveform is triphasic and has an amplitude which is excellent. . The left peroneal artery waveform is triphasic and has an amplitude which is excellent. The tibial pressures range from 160 mmHg to 169 mmHg. [facility] VASCULAR Final Result documented in this encounter Advance Directives [...] Discussed due to patient's condition Care Teams Warehouse Driver Relationship Specialty Start Date End Date Bharati Wang MD [address] [place] [address] [place] [address] PCP - General Family Medicine 10/02/21 documented as of this encounter
--- OUTSIDE RECORDS SUMMARY | 2024-07-03 22:58 | External Medical Summary | Summary of Care ---
Author Name Unknown Organization [facility] Address [address] [place] [address] Phone [phone] Care Team Providers Care Fixing Carpenter Name Role Phone Bharati Wang MD Primary Care Provide r Reason for Visit * Reason Onset Date Comments Appointment 06/25/2024 Encounter Details Date Type Department Care Team (Late st Contact Info) Description 06/25/2024 Telephone Family Medicine [address] [phone] Bharati Wang MD [address] [place] [address] [place] [address] Appointment Allergies Active Allergy Reactions Criticality Noted Date [...] fracture of humerus 08/07/2019 01/22/2024 Overview (08/10/2019): [facility] Bilateral sciatica 06/01/2019 4 Spasm of [...] Start Date Job End Date 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 Not on file Not on file Not on file documented as of this encounter Miscellaneous Notes * Telephone Encounter - Lefty Chung OSA - 06/26/2024 8:03 AM EST I mailed appt to pt * Telephone Encounter - Sandra Recinos CMA - 06/25/2024 12:32 PM EST I made her an appointment for 08/25/24 at 10:00AM * Telephone Encounter - Nicolle Roth OSA - 06/25/2024 10:27 AM EST Good morning, Dr Velasquez would like Mrs. day back in 3 months. Can you please assist in a time and date. Thank you. documented in this encounter Plan of Treatment Upcoming Encounters Date Type Department Care Team (Late st Contact Info) Description 07/09/2024 1:00 PM EST Nurse Only Ancillary [address] [place] [address] [place], Nurse [address] [place] [address] 08/25/2024 10:00 AM EDT Office Visit Family Medicine [address] [place] [phone] Bharati Wang MD [address] [place] [address] [place] [address] 09/10/2024 11:30 AM EDT Office Visit Neurosurgery, [place] [address] [place] [address] Yann Jackson MD [address] [place] [phone] 09/18/2024 12:00 PM EDT Appointment Vascular Lab [place] [address] [place] [address] 09/18/2024 12:30 PM EDT Appointment Vascular Lab [place] [address] [place] [address] 09/18/2024 1:20 PM EDT Office Visit Vascular Surg [facility] [address] [place] [address] Samson Dennis MD [facility] [place] [address] Scheduled Procedures Name Priority Associated Diagnoses Date/Ti [...] 06/09/2023 06/09/2013, 01/08/2008 COVID-19 Vaccine ( - 2023- season) 2024 02/27/2022, 03/28/2021, 07/24/2020, Additional history [...] D LEVEL ONCE IN A LIFETIME-USE SMARTSET# 89910 Completed 02/12/2018, 04/25/2015, 09/24/2014, Additional history exists [...] this encounter Medical Devices Implanted Type Area Group Worker Device Identifier Shelf Expiration Date Model / Serial / Lot Coil Target 3d 8des5tb - [id number] Implanted:Qty : 1 on 04/15/2024 by Ynan Jackson MD at OR [facility] N/A: Head ANNAMARIA : NEUROVASCULAR [id number] 12/16/2024 [id number] 60 / / [id number] 6cm, Coil Swiftpac Implanted:Qty : 1 on 04/15/2024 by Yann Jackson MD at OR [facility] N/A: Head [employer] 12/16/2028 [id number] / / [id number] 45cm, Coil Swiftpac Implanted:Qty : 1 on 04/15/2024 by Yann Jackson MD at OR [facility] N/A: Head [employer] 12/16/2028 [id number] / / [id number] 60cm, Coil Swiftpac Implanted:Qty : 1 on 04/15/2024 by Yann Jackson MD at OR [facility] N/A: Head [employer] 11/02/2028 [id number] / / [id number] Coil Target 3d 0jtt7gq - [id number] Implanted:Qty : 1 on 04/15/2024 by Yann Jackson MD at OR [facility] N/A: Head ANNAMARIA : NEUROVASCULAR [id number] 12/24/2024 [id number] 60 / / [id number] Coil Target 360 Soft [id number] - [id number] Implanted:Qty : 1 on 04/15/2024 by Yann Jackson MD at [place] [facility] [place] N/A: Head ANNAMARIA : NEUROVASCULAR [id number] 06/23/2025 [id number] 00 / / [id number] Coil Target 360 Ultra 4kvp89yb - [id number] Implanted:Qty : 1 on 04/15/2024 by Yann Jackson MD at OR [facility] N/A: Head ANNAMARIA : NEUROVASCULAR [id number] 05/04/2026 [id number] 00 / / [id number] Coil Target 360 Ultra 3cxm9eq - [id number] Implanted:Qty : 1 on 04/15/2024 by Yann Jackson MD at [place] [facility] N/A: Head ANNAMARIA : NEUROVASCULAR [id number] 02/03/2025 [id number] 80 / / [id number] 10cm, Coil Swiftpac Implanted:Qty : 2 on 04/15/2024 by Yann Jackson MD at OR [facility] N/A: Head [employer] 12/24/2028 [id number] / / [id number] 30cm, Coil Swiftpac Implanted:Qty : 1 on 04/15/2024 by Yann Jackosn MD at [place] [facility] N/A: Head [employer] 12/24/2028 [id number] / / [id number] 60cm, Coil Swiftpac Implanted:Qty : 1 on 04/15/2024 by Yann Jackson MD at [place] [facility] N/A: Head [employer] 11/02/2028 [id number] / / [id number] 6cm, Coil Swiftpac Implanted:Qty : 1 on 04/15/2024 by Yann Jackson MD at OR [facility] N/A: Head [employer] 12/16/2028 [id number] / / [id number] Stent Vasc Hep 8mmx7.4x751dk - [id number] Implanted:Qty : 1 on 04/16/2024 by aSmson Dennis MD at [place] [facility] Left: Iliac [employer] [id number] 12/29/2026 [id number] / [id number] / [id number] documented as of this encounter Advance Directives [...] Discussed due to patient's condition Care Teams Fixing Carpenter Relationship Specialty Start Date End Date Bharati Wang MD [address] [place] [address] [place] [phone] PCP - General Family Medicine 10/02/21 documented as of this encounter
--- OUTSIDE RECORDS SUMMARY | 2024-07-03 22:58 | External Medical Summary | Summary of Care ---
Author Name Unknown Organization [facility] Address [address] [place] [address] Phone [phone] Care Team Providers Care Earth Science Technical Officer Name Role Phone Bharati Wang MD Primary Care Provide r Reason for Visit * Reason Comments Outpatient Testing Encounter Details Date Type Department Care Team (Late st Contact Info) Description 06/25/2024 10:20 AM EST Laboratory Laboratory [address] [place] [phone] [place] [address] Arrived Allergies Active Allergy Reactions Criticality Noted Date [...] fracture of humerus 08/07/2019 01/22/2024 Overview (08/10/2019): [facility] Bilateral sciatica 06/01/2019 4 Spasm of [...] Job Start Date 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 Not on file Not on file documented as of this encounter Plan of Treatment Upcoming Encounters Date Type Department Care Team (Late st Contact Info) Description 07/09/2024 1:00 PM EST Nurse Only Ancillary [address] [place] [address] [place], Nurse [address] [place] [address] 08/25/2024 10:00 AM EDT Office Visit Family Medicine [address] [place] [phone] Bharati Wang MD [address] [place] [address] [place] [address] 09/10/2024 11:30 AM EDT Office Visit Neurosurgery, [place] [address] [place] [address] Yann Jackson MD [address] [place] [phone] 09/18/2024 12:00 PM EDT Appointment Vascular Lab [facility], [place] [address] [place] [address] 09/18/2024 12:30 PM EDT Appointment Vascular Lab [facility], [place] [address] [place] [address] 09/18/2024 1:20 PM EDT Office Visit Vascular Surg [place] [address] [place] [address] Samson Dennis MD [address] [place] [address] Scheduled Procedures Name Priority Associated Diagnoses Date/Ti me ESOPHAGOGASTRODUODENOSCOPY ( EGD), FLEXIBLE, TRANSORAL, DIAGNOSTIC Recall Contreras esophagus Health Maintenance Due Date Last Done Comments Alpha-1 Antitrypsin 1953 Adult Wellness Visit 2002 DXA Scan 04/06/2018 04/06/2016, 09/2012, 02/08/2011, Additional history exists DISCUSS TOBACCO CESSATION (REFER TO SMARTSET #2551) 08/01/2018 08/01/2017 (Discussed) DTap/Tdap Vaccines (2 - [...] D LEVEL ONCE IN A LIFETIME-USE SMARTSET# 33062 Completed 02/12/2018, 04/25/2015, 09/24/2014, Additional history exists [...] this encounter Medical Devices Implanted Type Area Cleaner And Dyer Device Identifier Shelf Expiration Date Model / Serial / Lot Coil Target 3d 8ogy0tl - [id number] Implanted:Qty : 1 on 04/15/2024 by Yann Jackson MD [place] [facility] [place]: Head ANNAMARIA : NEUROVASCULAR [id number] 12/16/2024 [id number] 60 / / [id number] 6cm, Coil Swiftpac Implanted:Qty : 1 on 04/15/2024 by Yann Jackson MD at [place] [facility] [place] N/A: Head [employer] 12/16/2028 [id number] / / [id number] 45cm, Coil Swiftpac Implanted:Qty : 1 on 04/15/2024 by Yann Jackson MD at [place] [facility] [place] N/A: Head [employer] 12/16/2028 [id number] / / [id number] 60cm, Coil Swiftpac Implanted:Qty : 1 on 04/15/2024 by Yann Jackson MD at [place] [facility] [place] N/A: Head [employer] 11/02/2028 [id number] / / [id number] Coil Target 3d 2zvx5vo - [id number] Implanted:Qty : 1 on 04/15/2024 by Yann Jackson MD at [place] [facility] [place]/A: Head ANNAMARIA : NEUROVASCULAR [id number] 12/24/2024 [id number] 60 / / [id number] Coil Target 360 Soft 9kmu72bp - [id number] Implanted:Qty : 1 on 04/15/2024 by Yann Jackson MD at [place] [facility] [place]/A: Head ANNAMARIA : NEUROVASCULAR [id number] 06/23/2025 [id number] 00 / / [id number] Coil Target 360 Ultra 0ulv54xo - [id number] Implanted:Qty : 1 on 04/15/2024 by Yann Jackson MD at [place] [facility] [place]/A: Head ANNAMARIA : NEUROVASCULAR [id number] 05/04/2026 [id number] 00 / / [id number] Coil Target 360 Ultra [id number] - [id number] Implanted:Qty : 1 on 04/15/2024 by Yann Jackson MD at [place] [facility] [place] N/A: Head ANNAMARIA : NEUROVASCULAR [id number] 02/03/2025 [id number] 80 / / [id number] 10cm, Coil Swiftpac Implanted:Qty : 2 on 04/15/2024 by Yann Jackson MD at [place] [facility] [place] N/A: Head [employer] 12/24/2028 [id number] / / [id number] 30cm, Coil Swiftpac Implanted:Qty : 1 on 04/15/2024 by Yann Jackson MD at [place] [facility] [place] N/A: Head [employer] 12/24/2028 [id number] / / [id number] 60cm, Coil Swiftpac Implanted:Qty : 1 on 04/15/2024 by Yann Jackson MD at [place] [facility] [place] N/A: Head [employer] 11/02/2028 [id number] / / [id number] 6cm, Coil Swiftpac Implanted:Qty : 1 on 04/15/2024 by Yann Jackson MD at [place] [facility] [place] N/A: Head [employer] 12/16/2028 [id number] / / [id number] Stent Vasc Hep 8mmx7.8b951pn - [id number] Implanted:Qty : 1 on 04/16/2024 by Samson Dennis MD at [place] [facility] [place] Left: Iliac [employer] [id number] 12/29/2026 [id number] / [id number] / [id number] documented as of this encounter Advance Directives [...] Discussed due to patient's condition Care Teams Earth Science Technical Officer Relationship Specialty Start Date End Date Bharati Wang MD [address] [place] [address] [place] [phone] PCP - General Family Medicine 10/02/21 documented as of this encounter
--- OUTSIDE RECORDS SUMMARY | 2024-07-03 22:58 | External Medical Summary | Summary of Care ---
Author Name Unknown Organization [facility] Address [address] [place] [address] Phone [phone] Care Team Providers Care Manufacturing Technology Professor Name Role Phone Bharati Wang MD Primary Care Provide r Reason for Visit * Reason Comments Post-Op Encounter Details Date Type Department Care Team (Late st Contact Info) Description 06/19/2024 1:40 PM EST Office Visit Vascular Surg [facility] [address] [place] [address] Stephie Joyce PA-C [address] [place] [address] PVD (peripheral vascular disease) ([facility])* Allergies Active Allergy Reactions Criticality Noted Date Comments Ampicillin 09/23/2003 Hives/trouble breathing Azithromycin 09/24/2003 hives and angioedema Ranitidine 10/29/2002 rash documented as of this encounter (statuses as of 06/19/2024) Medications VITAMIN D 2000 UNITS PO CAPS [...] as of this encounter (statuses as of 06/19/2024) Active Problems Problem Noted Date Diagnosed Date [...] as of this encounter (statuses as of 06/19/2024) Resolved Problems Problem Noted Date Diagnosed Date [...] fracture of humerus 08/07/2019 01/22/2024 Overview (08/10/2019): [facility] Bilateral sciatica 06/01/2019 4 Spasm of [...] as of this encounter (statuses as of 06/19/2024) Immunizations Name Administration Dates Next Due COVID-19 [...] 1 57.7 Started: 1965 Smokeless Tobacco: Never Tobacco Cessation:Ready to Q uit: No; Counseling Given: No Comments:06/19/24 1/2 pack daily, declined pamphlet Alcohol Use Standard Drinks/Week Comments [...] Job Start Date Job End Date 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 Not on file Not on file Not on file documented as of this encounter Last Filed Vital Signs Vital Sign Reading Time Taken Comments Blood Pressure 122/64 06/19/2024 1:05 PM EST Pulse 82 06/19/2024 1:05 PM EST Temperature 36.2 C (97.1 F) 06/19/2024 1:05 PM ES T Respiratory Rate - - Oxygen Saturation - - Inhaled Oxygen Concentration - - Weight 74.2 kg (163 lb 9.6 oz) 06/19/2024 1:05 P M EST Height - - Body Mass Index 28.08 05/18/2024 1:40 PM EST documented in this encounter Progress Notes * Stephie Joyce PA-C - 06/19/2024 1:15 PM EST Date of Service: 06/19/2024 1:15 PM Josefa Ramírez is a 88 year old female. Referring Physician: Bharati Wang MD Chief Complaint: S/p Abdominal aortogram, Left lower extremity angiography, and Open left iliac catheter thromboembolectomy via groin incision. Left external iliac viabahn stent grafting of dissection flap on 04/16/[address] Dennis Experiencing some mild neuritis but otherwise doing well Accompanied by and son in-law HPI: Rather healthy, high functioning, chronic smoker with HTN. Vascular was consulted on 04/15/24 for acute limb ischemia on the left side after L Carotid Cavernous Fistula on 04/15/2024 by neurosurgery. CTA demonstrated occlusive thrombus in the left common femoral artery. She was placed on heparin overnight and surgery was done the next day Vascular was then consulted again on 04/21/24 as patient presented to [facility] for concerns of "feeling sick". Described n/v, SOB, fatigue, malaise. CTA from [facility] viewed and revealed small L RP hematoma. No evidence of extravasation, no communication w/ L groin. L pleural effusion. Patent vasculature. PERIPHERAL VASCULAR DISEASE: Denies claudication, rest pain or ulcers Was seen in in [address] Claudio for carotid stenosis. Follow-up was to be PRN Current Outpatient Medications Medication Sig Dispense Refill [...] 1 Tablet before bedtime. 60 Tablet 0 No current facility-administered medications for this visit. 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) Need for prophylactic hormone replacement therapy (postmenopausal) [...] EMBOLECTOMY FEMOROPOPLITEAL AORTOILIAC ARTERY performed by Samson Dennis, [place] [facility] BLEPHAROPTOSIS, FRONTALIS, REPAIR Bilateral 08/10/2015 CAROTID (INTERNAL) ARTERY CATHETHER PLACEMENT Bilateral 03/27/2024 CATHETER PLACEMENT INTERNAL CAROTID ARTERY RADIAL ACCESS performed by Yann Jackson MD at [facility] CAROTID (INTERNAL) ARTERY CATHETHER PLACEMENT Bilateral 04/15/2024 CATHETER PLACEMENT INTERNAL CAROTID ARTERY performed by Yann Jackson MD at [facility] CAROTID (EXTERNAL) ARTERY CATHETHER PLACEMENT Bilateral 03/27/2024 CATHETER PLACEMENT EXTERNAL CAROTID ARTERY performed by Yann Jackson MD at [facility] CAROTID (EXTERNAL) ARTERY CATHETHER PLACEMENT Bilateral 04/15/2024 CATHETER PLACEMENT EXTERNAL CAROTID ARTERY performed by Yann Jackson MD at [facility] CATHETER OCCLUSION/EMBOLIZATION,EXTENSION DIVISION DIRECTOR N/A 04/15/2024 TRANSCATHETER PERMANENT ARTERIAL OCCLUSION CENTRAL NERVOUS SYSTEM performed by Yann Jackson MD at [facility] CERVICAL LAMINOPLAST W/DECOMP,RECON 06/17/2006 Dr. Potts COLONOSCOPY, DIAGNOSTIC (RECTUM) 03/08/2015 adenomatous polyps, repeat 5 yrs/COLONOSCOPY FLEXIBLE PROXIMAL DIAGNOSTIC performed by Rene Elise MD at ENDOSCOPY [facility] COLONOSCOPY, DIAGNOSTIC (RECTUM) 07/27/2020 benign adenomatous polyps / COLONOSCOPY FLEXIBLE PROXIMAL DIAGNOSTIC performed by Rene Elise MD at ENDOSCOPY [facility] COLONOSCOPY, GI REFERRAL OP 01/16/2005 Dr. Mcneil - diverticulosis CT SINUSES W WO CONTRAST 06/06/2006 air fluid levels in bilateral maxillary and sphenoid sinuses, frontal sinus opacified, mucosal thickening of ethmoids, left osteomeatal complex opacified, left nasal septal deviation EGD, FLEXIBLE, DIAGNOSTIC 11/14/2020 Barretts, hiatal hernia, repeat 6 mo / ESOPHAGOGASTRODUODENOSCOPY (EGD), FLEXIBLE, TRANSORAL, DIAGNOSTIC performed by Santi Edwards MD at ENDOSCOPY [facility] EGD, FLEXIBLE, DIAGNOSTIC 08/29/2021 Barretts, hiatal hernia, repeat 2 yrs / ESOPHAGOGASTRODUODENOSCOPY (EGD), FLEXIBLE, TRANSORAL, DIAGNOSTIC performed by Santi Edwards MD at ENDOSCOPY [facility] EGD, FLEXIBLE, DIAGNOSTIC 09/30/2020 Bleeding esophagitis with underlying Contreras's esophagus, repeat 6 wks / INPT [facility] EGD, FLEXIBLE, W/BIOPSY 08/16/2006 path-no abnormalities FULL PULMONARY FUNCTION TEST 05/2000 HEMORRHOIDECTOMY, SIMPLE, 1 COLUMN Remote past ILIAC ART. REVASC W/ STENT+ANGIOPLASTY 04/16/2024 ILIAC ARTERY REVASC W/ STENT+ANGIOPLASTY performed by Samson Dennis MD at [facility] INTRACRANIAL ARTERIES CATH PLACEMENT Bilateral 04/15/2024 CATHETER PLACEMENT EACH INTRACRANIAL BRANCH OF THE INTERNAL CAROTID OR VERTEBRAL ARTERIES performedby Yann Jackson MD at [facility] IR ARTERIOGRAM EXTREMITY UNILATERAL 04/16/2024 IMAGING SUPERVISION & INTERPRETATION EXTREMITY UNILATERAL performed by Samson Dennis MD at [facility] L-/S-SPINE PARAVERTEBRAL FACET INJ,1 LEVEL 02/09/2019 L-/S-SPINE PARAVERTEBRAL FACET INJ, 1 LEVEL performed by Chris Caballero DO at OR [facility] L-/S-SPINE PARAVERTEBRL FACET INJ,2 LEVELS 02/09/2019 L-/S-SPINE PARAVERTEBRAL FACET INJ, 2 LEVELS performed by Chris Caballero DO at OR [facility] LUMBAR DISC ARTHROPLAST,REMV,ADDL INTERSPCE 01/2010 Dr Potts LUMBAR SPINE FUSION W/BONE GRAFT 02/23/2005 Dr. Potts - [facility] LUMBAR SPINE FUSION W/BONE GRAFT 07/19/2016 Dr. Potts - [facility] MAMMOGRAM SCREENING-BILATERAL 02/1999 REMOVAL OF OVARY/OVIDUCT(S) 18 yo right REMOVE CATARACT, INSERT LENS PROSTH 12/2004 bilateral - [facility] REMOVE GALLBLADDER REVERSE TOTAL SHOULDER ARTHROPLASTY Left 09/29/2020 [facility] SACROILIAC JOINT INJECT W/GUIDANCE 11/13/2018 INJECTION SACROILIAC JOINT performed by Chris Caballero DO at OR [facility] SACROILIAC JOINT INJECT W/GUIDANCE 12/11/2018 INJECTION SACROILIAC JOINT performed by [place] Dioni Caballero DO at OR [facility] SHOULDER ARTHROSCOPY/SURGERY 06/07/2010 [facility] - [facility]- right shoulder repair SPINAL FUSION, LUMBAR, COMBINED 07/19/2016 Dr. Potts- [facility] TOTAL ABD HYSTERECTOMY W/WO REMOVAL OF TUBE(S) 26 yo one ovary still in VERTEBRAL ARTERY CATHETER PLACEMENT Bilateral 03/27/2024 CATHETER PLACEMENT VERTEBRAL ARTERY, performed by Yann Jackson MD at [facility] VERTEBRAL ARTERY CATHETER PLACEMENT Bilateral 04/15/2024 CATHETER PLACEMENT VERTEBRAL ARTERY, performed by Yann Jackson MD at [facility] Family History Problem Relation Name Age of Onset Other (CAD) Father Hypertension Mother Social History Socioeconomic History Marital status: Spouse name: Not on file Number of children: 4 Years of education: Not on file Highest education level: Not on file Occupational History 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 Tobacco Use Smoking status: Every Day Current packs/day: 1.00 Average packs/day: 1 pack/day for 57.7 years (57.7 ttl pk-yrs) Types: Cigarettes Start date: 1965 Smokeless tobacco: Never Tobacco comments: 06/19/24 1/2 pack daily, declined pamphlet Vaping Use Vaping status: Not on file Substance and Sexual Activity Alcohol use: No Drug use: No Sexual activity: Not on file Other Topics Concern Service No Blood Transfusions Yes Caffeine Concern No Occupational Exposure No Hobby Hazards No Sleep Concern No Stress Concern No Weight Concern No Special Diet No Back Care Yes Exercise Yes Bike Helmet Not Asked Seat Belt Yes Self-Exams Not Asked Social History Narrative Not on file Social Needs Financial Resource Strain: Low Risk (04/20/2024) Financial Resource Strain Do you have any trouble paying for your medications, or do you think you might in the future? (Adult - for ages 18 years and over): No Does your family have trouble paying for medicine? (Household - for ages 0-17 years): Not on file Food Insecurity: No Food Insecurity (04/22/2024) Food Insecurity Do you need food for this week? (Adult - for ages 18 years and over): No Are you able to get enough food for your family? (Household - for ages 0-17 years): Not on file Does your family need food this week? (Household - for ages 0-17 years): Not on file Do you always have enough food for your family? (Household - for ages 0-17 years): Not on file Transportation Needs: No Transportation Needs (04/22/2024) Transportation Needs Do you have trouble getting a ride to medical visits or work? (Adult - for ages 18 years and over):Not on file Does your family have a hard time getting a ride to doctors visits? (Household - for ages 0-17 years): Not on file Has lack of transportation kept you from medical appointments, meetings, work, or from getting things needed for daily living? Check all that apply. (Adult - for ages 18 years and over): No Do you (or your family) have trouble finding or paying for a ride (transportation)? (Household - for ages 0-17 years): Not on file Social Connections: Socially Integrated (04/20/2024) Social Connections How often do you feel lonely or isolated from those around you? (Adult - for ages 18 years and over): Never Housing Stability: Low Risk (04/22/2024) Housing Stability Do you currently live in a [place] or have no steady place to sleep at night? (Adult - for ages 18 years and over): No Do you think you are at risk of becoming homeless? (Adult - for ages 18 years and over): Not on file Does your family worry about paying for your home or becoming homeless? (Household - for ages 0-17 years): Not on file Are you homeless or worried that you might be in the future? (Adult - for ages 18 years and over): No Are you (or your family) homeless or worried that you might be in the future? (Household - for ages0-17 years): Not on file REVIEW OF SYSTEMS: Constitutional: Denies fever, Denies shaking chills. Eyes: Denies double vision , Denies blurred vision , Denies amaurosis fugax. Ear, Nose, Throat and Mouth: denies decreased hearing, denies trouble swallowing, denies epistaxis. Cardiovascular: denies chest pains, denies [place], denies CHF. Respiratory: denies shortness of breath, denies MULLIGAN. Gastrointestinal: denies melena, denies bright red blood per rectum, denies post prandial abdominalpain. Genitourinary: denies hematuria. Musculoskeletal: reports arthritis, reports chronic low back pain, reports chronic neck pain. Skin: denies rash, denies ulcers. Neurological: denies TIA, denies CVA, denies amaurosis fugax. Psychiatric: denies depression, denies anxiety. Endocrine: denies NIDDM, denies IDDM. Hematologic: denies anemia, denies blood clotting problems, denies hx of DVT/PE. Oncologic: reports history of uterine cancer for which she underwent hysterectomy GENERAL MULTI-SYSTEM PHYSICAL EXAM: VITAL SIGNS: BP 122/64 (BP Site: Left Arm, BP Position: Sitting, BP Cuff Size: Regular) | Pulse 82 | Temp 36.2 C (97.1 F) (Temporal Artery) | Wt 74.2 kg (163 lb 9.6 oz) | BMI 28.08 kg/m | BSA 1.83 m GENERAL MULTI-SYSTEM PHYSICAL EXAM: ADDITIONAL VS: pulse regular. GENERAL: Normal grooming habits, no acute distress and appears stated age. NECK: No masses RESPIRATORY: respiratory effort normal and breath sounds normal. CARDIOVASCULAR: no heart murmurs, no edema and no varicosities. GASTROINTESTINAL: no tenderness, protuberant and abdominal aorta not palpable. SKIN: no ulcers, no rash, no induration, capillary refill normal and no dependent rubor. L groin incision healed PSYCHIATRIC: orientation to time, place and person normal and recent and remote memory normal. EYES: conjunctivae normal, eye lids normal and irises normal. NEUROLOGIC: Motor function intact and Sensory exam intact PULSE SCALE: Carotid Right:----Bruit: No Left:----Bruit: No Radial Right: 3 Left: 3 Femoral Right: 3 Left: 3 Popliteal Right: 3 Left: 3 Dorsalis Pedis Right: 3 Left: 2 Posterior Tibial Right: 2 Left: 2 PULSE SCALE: 4=Aneurysmal; 3=Normal; 2=Diminished; 1=Barely Palpable; 0=Absent ADDITIONAL PHYSICAL EXAM DIAGNOSTIC STUDIES: 06/19/24: HANNAH: 05/2706/19/24: LLE art dup: L BRYANT 81, L EIA 76/108/97, L HOCKEY PLAYER 125, L DFA 156, L SFA 151/108 05/29/24: CTA runoff: No AAA. Patent left external iliac artery stent. Dissection extends from the distal margin of the stent into the left common femoral artery, which is now patent. Resolving left retroperitoneal hematoma. The above diagnostic images were directly visualized and independently interpreted by me on 06/19/2024 with results as above 10/10/18: Carotid Duplex ([place]): SHALINI 118/33 (dist) with some bifurcation plq, LICA 92/28, bilateral vertebral arteries show antegrade flow. 05/21/18: CT: No AAA IMPRESSIONS: S/p Abdominal aortogram, Left lower extremity angiography, and Open left iliac catheter thromboembolectomy via groin incision. Left external iliac viabahn stent grafting of dissection flap on 04/16/[address] Dennis for ischemia following neurosurgery procedure. 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 HTN, stable COPD Dyslipidemia, on statin Spinal stenosis S/p hysterectomy S/p cholecystectomy S/p appendectomy PLAN: S/p Abdominal aortogram, Left lower extremity angiography, and Open left iliac catheter thromboembolectomy via groin incision. Left external iliac viabahn stent grafting of dissection flap on 04/16/[address] Dennis for ischemia following neurosurgery procedure. Some mild post-op neuritis HANNAH triphasic and stent patent on duplex No claudication, rest pain or ulcers Palpable pedal pulses L groin incision healed Counseled on good footwear and care and regular walking program Continue plavix 75 mg daily for stent patency Continue eliquis 5 mg BID Continue rosuvastatin 20 mg daily for Pleiotropic effects of statins including improvement of endothelial dysfunction, increased nitric oxide bioavailability, antioxidant properties, inhibition of inflammatory responses, and stabilization of atherosclerotic plaques were discussed. The negative side effects of nicotine, in all forms, upon blood vessels was discussed. The nature of nicotine addiction was discussed. The usefulness of behavioral and medical therapies was discussed. The correct use, costs and side effects of medical therapies was discussed. The quit rates were discussed. Patient was referred to: [place] [facility]uit[facility]: 4-260-NQFB-NOW. Follow-up in 3 months with HANNAH/art dup, sooner PRN Stephie Joyce PA-C documented in this encounter Nursing Notes * Mercedes Rodriguez LPN - 06/19/2024 1:08 PM EST Reviewed the option of transferring scripts to [facility] pharmacy with patient and / or family. Mercedes Rodriguez LPN documented in this encounter Plan of Treatment Upcoming Encounters Date Type Department Care Team (Late st Contact Info) Description 06/22/2024 9:00 AM EST Office Visit Family Medicine [address] [phone] Bharati Wang MD [address] [place] [address] [place] [address] 09/10/2024 11:30 AM EDT Office Visit Neurosurgery, [address] [address] Yann Jackson MD [address] [place] [id number] 09/18/2024 12:00 PM EDT Appointment Vascular Lab [facility] [address] [place] [address] 09/18/2024 12:30 PM EDT Appointment Vascular Lab [place] [address] [place] [address] 09/18/2024 1:20 PM EDT Office Visit Vascular Surg [facility] [address] [place] [address] Samson Dennis MD [address] [place] [address] Scheduled Orders Name Type Priority Associated Diagnoses Orde r Schedule VASC ANKLE BRACHIAL INDICES WITHOUT PPG (PAD) Medical Imaging Routine PVD (peripheral vascular disease) (HCC) Ordered: 06/19/2024 VASC [place] [facility] Medical Imaging Routine PVD (peripheral vascular disease) (HCC) Ordered: 06/19/2024 Scheduled Procedures Name Priority Associated Diagnoses Date/Ti me ESOPHAGOGASTRODUODENOSCOPY ( EGD), FLEXIBLE, TRANSORAL, DIAGNOSTIC Recall Contreras esophagus Health Maintenance Due Date Last Done Comments Alpha-1 Antitrypsin 1953 Adult Wellness Visit 2002 DXA Scan 04/06/2018 04/06/2016, 09/2012, 02/08/2011, Additional history exists DISCUSS TOBACCO CESSATION (REFER TO SMARTSET #2693) 08/01/2018 08/01/2017 (Discussed) DTap/Tdap Vaccines (2 - [...] D LEVEL ONCE IN A LIFETIME-USE SMARTSET# 21872 Completed 02/12/2018, 04/25/2015, 09/24/2014, Additional history exists [...] this encounter Medical Devices Implanted Type Area Furrier Designer Device Identifier Shelf Expiration Date Model / Serial / Lot Coil Target 3d [id number] - [id number] Implanted:Qty : 1 on 04/15/2024 by Yann Jackson MD at [place] [facility] N/A: Head ANNAMARIA : NEUROVASCULAR [id number] 12/16/2024 [id number] / / [id number] 6cm, Coil [employer]pac Implanted:Qty : 1 on 04/15/2024 by Yann Jackson MD at [facility] N/A: Head [employer] 12/16/2028 [id number] / / [id number] 45cm, Coil [employer]pac Implanted:Qty : 1 on 04/15/2024 by Yann Jackson MD at [facility] N/A: Head [employer] 12/16/2028 [id number] / / [id number] 60cm, Coil [employer] Implanted:Qty : 1 on 04/15/2024 by Yann Jackson MD at [facility] N/A: Head [employer] 11/02/2028 [id number] / / [id number] Coil Target 3d [id number] - [id number] Implanted:Qty : 1 on 04/15/2024 by Yann Jackson MD at [facility] N/A: Head ANNAMARIA : NEUROVASCULAR [id number] 12/24/2024 [id number] 60 / / [id number] Coil Target 360 Soft [id number] - [id number] Implanted:Qty : 1 on 04/15/2024 by Yann Jackson MD at [facility] N/A: Head ANNAMARIA : NEUROVASCULAR [id number] 06/23/2025 [id number] / / [id number] Coil Target 360 Ultra [id number] - [id number] Implanted:Qty : 1 on 04/15/2024 by Yann Jackson MD at [facility] N/A: Head ANNAMARIA : NEUROVASCULAR [id number] 05/04/2026 [id number] / / [id number] Coil Target 360 Ultra [id number] - [id number] Implanted:Qty : 1 on 04/15/2024 by Yann Jackson MD at [facility] N/A: Head ANNAMARIA : NEUROVASCULAR [id number] 02/03/2025 [id number] 80 / / [id number] 10cm, Coil [employer] Implanted:Qty : 2 on 04/15/2024 by Yann Jackson MD at [facility] N/A: Head [employer] 12/24/2028 [id number] / / [id number] 30cm, Coil [employer] Implanted:Qty : 1 on 04/15/2024 by Yann Jackson MD at [facility] N/A: Head [employer] 12/24/2028 [id number] / / [id number] 60cm, Coil [employer] Implanted:Qty : 1 on 04/15/2024 by Yann Jackson MD at [facility] N/A: Head [employer] 11/02/2028 [id number] / / [id number] 6cm, Coil [employer] Implanted:Qty : 1 on 04/15/2024 by Yann Jackson MD at [facility] N/A: Head [employer] 12/16/2028 [id number] / / [id number] Stent Vasc Hep [id number] - [id number] Implanted:Qty : 1 on 04/16/2024 by Samson Dennis MD at [facility] Left: Iliac [employer] [id number] 12/29/2026 [id number] / [id number] / [id number] documented as of this encounter Visit Diagnoses Diagnosis PVD (peripheral vascular disease) (HCC)- Primary Peripheral vascular disease, unspecified documented in this encounter Advance Directives * [...] Discussed due to patient's condition Care Teams Manufacturing Technology Professor Relationship Specialty Start Date End Date Bharati Wang MD [address] [place] [address] SAHIL Ballard [address] PCP - General Family Medicine 10/02/21 documented as of this encounter
--- OUTSIDE RECORDS SUMMARY | 2024-07-03 22:59 | External Medical Summary | Summary of Care ---
Author Name Unknown Organization [facility] Address [address] [place] [address] Phone [phone] Care Team Providers Care Nutritional Chemist Name Role Phone Bharati Wang MD Primary Care Provide r Encounter Details Date Type Department Care Team (Late st Contact Info) Description 06/08/2024 Orders Only Outcomes Research Department [address] [place] [address] Yojana Snowden CHRA My[facility] Research Other*[id number] Allergies Active Allergy Reactions Criticality Noted Date Comments Ampicillin 09/23/2003 Hives/trouble breathing Azithromycin 09/24/2003 hives and angioedema Ranitidine 10/29/2002 rash documented as of this encounter (statuses as of 06/08/2024) Medications VITAMIN D 2000 UNITS PO CAPS [...] as of this encounter (statuses as of 06/08/2024) Active Problems Problem Noted Date Diagnosed Date Age-related osteoporosis wit hout current pathological fracture [...] as of this encounter (statuses as of 06/08/2024) Resolved Problems Problem Noted Date Diagnosed Date [...] as of this encounter (statuses as of 06/08/2024) Immunizations Name Administration Dates Next Due COVID-19 mRNA, LNP-s, No Pre serve, 2-Dose Series (Moderna) 07/24/2020,06/26/2020 COVID-19, mRNA, LNP-s, PF, B ooster, 100mcg/0.5mg (Moderna) 03/28/2021 Covid-19, Mrna, Lnp-s, Pf, B ivalent, 30 Mcg, IM, 12 yrs and above (Sand 9) 02/27/2022 Pneumococcal Conjugate Vacc, 13 Valent (Prevnar) [...] Types Packs/Day Years Used Date Smoking Tobacco: Former Cigarettes 1 57.7 S tarted: 1965 Smokeless Tobacco: Never Alcohol Use Standard [...] Job Start Date Job End Date 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 Not on file Not on file Not on file documented as of this encounter Plan of Treatment Upcoming Encounters Date Type Department Care Team (Late st Contact Info) Description 06/19/2024 12:30 PM EST Appointment Vascular Lab [place] [address] [place] [address] 06/19/2024 1:00 PM EST Appointment Vascular Lab [address] [address] 06/19/2024 1:40 PM EST Office Visit Vascular Surg [address] [address] Isiah Merritt CRNP [facility] [place] [address] 06/22/2024 9:00 AM EST Office Visit Family Medicine [address] [phone] Bharati Wang MD [address] [place] [address] [place] [address] 09/10/2024 11:30 AM EDT [facility] [address] [place] [address] Yann Jackson MD [address] [place] [address] Scheduled Orders Name Type Priority Associated Diagnoses Orde r Schedule MYCODE SUBSEQUENT ADULT Lab Routine MyCode Research Other*[id number] Every 6 Months for 2 Occurrences starting 06/08/2024 until 06/28/2025 Scheduled Procedures Name Priority Associated Diagnoses Date/Ti me ESOPHAGOGASTRODUODENOSCOPY ( EGD), FLEXIBLE, TRANSORAL, DIAGNOSTIC Recall Contreras esophagus Health Maintenance Due Date Last Done Comments Alpha-1 Antitrypsin 1953 Adult Wellness Visit 2002 DXA Scan 04/06/2018 04/06/2016, 09/2012, 02/08/2011, Additional history exists DTap/Tdap Vaccines (2 - Td or Tdap) [...] D LEVEL ONCE IN A LIFETIME-USE SMARTSET# [id number] Completed 02/12/2018, 04/25/2015, 09/24/2014, Additional history exists [...] this encounter Medical Devices Implanted Type Area Premium Service Representative Device Identifier Shelf Expiration Date Model / Serial / Lot Coil Target 3d 8kvg1nd - [id number] Implanted:Qty : 1 on 04/15/2024 by Yann Jackson MD at OR [facility] N/A: Head ANNAMARIA : NEUROVASCULAR [id number] 12/16/2024 [id number] / / [id number] 6cm, Coil Swiftpac Implanted:Qty : 1 on 04/15/2024 by Yann Jackson MD at OR [facility] N/A: Head [employer] 12/16/2028 [id number] / / [id number] 45cm, Coil Swiftpac Implanted:Qty : 1 on 04/15/2024 by Yann Jackson MD at OR [facility] N/A: Head [employer] 12/16/2028 [id number] / / [id number] 60cm, Coil Swiftpac Implanted:Qty : 1 on 04/15/2024 by Yann Jackson MD at OR [facility] N/A: Head [employer] 11/02/2028 [id number] / / [id number] Coil Target 3d 9jbn2gg - [id number] Implanted:Qty : 1 on 04/15/2024 by Yann Jackson MD at OR [facility] N/A: Head ANNAMARIA : NEUROVASCULAR [id number] 12/24/2024 [id number] 60 / / [id number] Coil Target 360 Soft 2vgu92sw - [id number] Implanted:Qty : 1 on 04/15/2024 by Yann Jackson MD at OR [facility] N/A: Head ANNAMARIA : NEUROVASCULAR [id number] 06/23/2025 [id number] / / [id number] Coil Target 360 Ultra 1yqk48qo - [id number] Implanted:Qty : 1 on 04/15/2024 by Yann Jackson MD at OR [facility] N/A: Head ANNAMARIA : NEUROVASCULAR [id number] 05/04/2026 [id number] / / [id number] Coil Target 360 Ultra 9eia5kb - [id number] Implanted:Qty : 1 on 04/15/2024 by Yann Jackson MD at OR [facility] N/A: Head ANNAMARIA : NEUROVASCULAR [id number] 02/03/2025 [id number] 80 / / [id number] 10cm, Coil Swiftpac Implanted:Qty : 2 on 04/15/2024 by Yann Jackson MD at OR [facility] N/A: Head [employer] 12/24/2028 [id number] / / [id number] 30cm, Coil Swiftpac Implanted:Qty : 1 on 04/15/2024 by Yann Jackson MD at OR [facility] N/A: Head [employer] 12/24/2028 [id number] / / [id number] 60cm, Coil Swiftpac Implanted:Qty : 1 on 04/15/2024 by Yann Jackson MD at OR [facility] N/A: Head [employer] 11/02/2028 [id number] / / [id number] 6cm, Coil Swiftpac Implanted:Qty : 1 on 04/15/2024 by Yann Jackson MD at OR [facility] N/A: Head [employer] 12/16/2028 [id number] / / [id number] Stent Vasc Hep 8mmx7.8o954oh - [id number] Implanted:Qty : 1 on 04/16/2024 by Samson Dennis MD at OR [facility] Left: Iliac [employer] [id number] 12/29/2026 [id number] / [id number] / [id number] documented as of this encounter Visit Diagnoses Diagnosis MyCode Research Other*[id number] documented in this encounter Advance Directives * [...] Discussed due to patient's condition Care Teams Nutritional Chemist Relationship Specialty Start Date End Date Bharati Wang MD [address] [place] [address] [place] [address] PCP - General Family Medicine 10/02/21 documented as of this encounter
--- OUTSIDE RECORDS SUMMARY | 2024-07-03 22:59 | External Medical Summary | Summary of Care ---
Author Name Unknown Organization [facility] Address [address] [place] [address] Phone [phone] Care Team Providers Care Linting Machine Operator Name Role Phone Bharati Wang MD Primary Care Provide r Reason for Visit * Reason Comments Outpatient Testing Encounter Details Date Type Department Care Team (Late st Contact Info) Description 05/25/2024 12:50 PM EST Laboratory Laboratory [address] [place] [phone] [place] [address] Arrived Allergies Active Allergy Reactions Criticality Noted Date Comments Ampicillin 09/23/2003 Hives/trouble breathing Azithromycin 09/24/2003 hives and angioedema Ranitidine 10/29/2002 rash documented as of this encounter (statuses as of 05/25/2024) Medications VITAMIN D 2000 UNITS PO CAPS [...] as of this encounter (statuses as of 05/25/2024) Active Problems Problem Noted Date Diagnosed Date [...] as of this encounter (statuses as of 05/25/2024) Resolved Problems Problem Noted Date Diagnosed Date [...] fracture of humerus 08/07/2019 01/22/2024 Overview (08/10/2019): [facility] Bilateral sciatica 06/01/2019 4 Spasm of [...] as of this encounter (statuses as of 05/25/2024) Immunizations Name Administration Dates Next Due COVID-19 [...] Used Date Smoking Tobacco: Former Cigarettes 1 57.6 S tarted: 1965 Smokeless Tobacco: Never Alcohol [...] Job Start Date Job End Date 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 Not on file Not on file documented as of this encounter Plan of Treatment Upcoming Encounters Date Type Department Care Team (Late st Contact Info) Description 05/29/2024 8:00 AM EST Imaging Radiology [address] [address] 06/01/2024 12:00 PM EST Appointment Vascular Lab [address] [address] 06/01/2024 12:30 PM EST Appointment Vascular Lab [address] [address] 06/01/2024 1:20 PM EST Office Visit Vascular Surg [address] [address] Samson Dennis MD [facility] [place] [address] 06/22/2024 9:00 AM EST Office Visit Family Medicine [address] [phone] Bharati Wang MD [address] [place] [address] [place] [address] 09/10/2024 11:30 AM EDT Office Visit Neurosurgery, [address] [address] Yann Jackson MD [facility] [place] [phone] Scheduled Procedures Name Priority Associated Diagnoses Date/Ti me ESOPHAGOGASTRODUODENOSCOPY ( EGD), FLEXIBLE, TRANSORAL, DIAGNOSTIC Recall Contreras esophagus Health Maintenance Due Date Last Done Comments Alpha-1 Antitrypsin 1953 Adult Wellness Visit 2002 DXA Scan 04/06/2018 04/06/2016, 1109/2012, 02/08/2011, Additional history exists DTap/Tdap Vaccines (2 [...] D LEVEL ONCE IN A LIFETIME-USE SMARTSET# 39783 Completed 02/12/2018, 04/25/2015, 09/24/2014, Additional history exists [...] this encounter Medical Devices Implanted Type Area Concrete Wall Grinder Operator Device Identifier Shelf Expiration Date Model / Serial / Lot Coil Target 3d 3kyh5pd - [id number] Implanted:Qty : 1 on 04/15/2024 by Yann Jackson MD at OR [facility] N/A: Head ANNAMARIA : NEUROVASCULAR [id number] 12/16/2024 [id number] 60 / / [id number] 6cm, Coil Swiftpac Implanted:Qty : 1 on 04/15/2024 by Yann Jackson MD at OR [facility] N/A: Head [employer] 12/16/2028 [id number] / / [id number] 45cm, Coil Swiftpac Implanted:Qty : 1 on 04/15/2024 by Yann Jackson MD at OR [facility] N/A: Head [employer] 12/16/2028 [id number] / / [id number] 60cm, Coil Swiftpac Implanted:Qty : 1 on 04/15/2024 by Yann Jackson MD at OR [facility] N/A: Head [employer] 11/02/2028 [id number] / / [id number] Coil Target 3d 6hae9fr - [id number] Implanted:Qty : 1 on 04/15/2024 by Yann Jackson MD at OR [facility] N/A: Head ANNAMARIA : NEUROVASCULAR [id number] 12/24/2024 [id number] 60 / / [id number] Coil Target 360 Soft 2jao92ji - [id number] Implanted:Qty : 1 on 04/15/2024 by Yann Jackson MD at OR [facility] N/A: Head ANNAMARIA : NEUROVASCULAR [id number] 06/23/2025 [id number] / / [id number] Coil Target 360 Ultra 7klt95ol - [id number] Implanted:Qty : 1 on 04/15/2024 by Yann Jackson MD at OR [facility] N/A: Head ANNAMARIA : NEUROVASCULAR [id number] 05/04/2026 [id number] 00 / / [id number] Coil Target 360 Ultra 6gmn2gf - [id number] Implanted:Qty : 1 on 04/15/2024 by Yann Jackson MD at OR [facility] N/A: Head ANNAMARIA : NEUROVASCULAR [id number] 02/03/2025 [id number] 80 / / [id number] 10cm, Coil Swiftpac Implanted:Qty : 2 on 04/15/2024 by Yann Jackson MD at OR [facility] N/A: Head [employer] 12/24/2028 [id number] / / [id number] 30cm, Coil Swiftpac Implanted:Qty : 1 on 04/15/2024 by Yann Jackson MD at OR [facility] N/A: Head [employer] 12/24/2028 [id number] / / [id number] 60cm, Coil Swiftpac Implanted:Qty : 1 on 04/15/2024 by Yann Jackson MD at OR [facility] N/A: Head [employer] 11/02/2028 [id number] / / [id number] 6cm, Coil [employer] Implanted:Qty : 1 on 04/15/2024 by Yann Jackson MD at OR [facility] N/A: Head [employer] 12/16/2028 [id number] / / [id number] Stent Vasc Hep 8mmx7.3u840lc - [id number] Implanted:Qty : 1 on 04/16/2024 by Samson Dennis MD at OR [facility] Left: Iliac [employer] [id number] 12/29/2026 [id number] / [id number] / [id number] documented as of this encounter Advance Directives [...] Discussed due to patient's condition Care Teams Linting Machine Operator Relationship Specialty Start Date End Date Bharati Wang MD [address] [place] [address] [place] [address] PCP - General Family Medicine 10/02/21 documented as of this encounter
--- OUTSIDE RECORDS SUMMARY | 2024-07-03 22:59 | External Medical Summary ---
Author Name Unknown Address Unknown Organization K01:[facility] [place] - [address] [facility] [address] Laboratory Report Ordering Provider Test Date Status BAUTISTA KELLY 05/25/2024 12:55:20 Negra l Observation Date Value Abnormality Reference (Units ) Status SYNC LEUKOCYTES IN BLOOD BY AUTOMATED COUNT 05/25/2024 12:55:20 5.43 4.00-10.80 (K/uL) Final Segs 05/25/2024 12:55:20 57.6 40.0-75.0 (%) Final Lymphs % 05/25/2024 12:55:20 31.5 18.0-42.0 (%) Final Monos 05/25/2024 12:55:20 8.8 1.0-11.0 (%) Final Eosinophils 05/25/2024 12:55:20 1.1 0.0-6.0 (%) Final Basos 05/25/2024 12:55:20 0.6 0.0-2.0 (%) Final Immature Granulocyte, Percent 05/25/2024 12:55:20 0.4 0.0-2.0 (%) Final Absolute Segs 05/25/2024 12:55:20 3.13 1.80-7.70 (K/uL) Final Lymphs, absolute 05/25/2024 12:55:20 1.71 1.00-4.80 (K/ul) Final Monos, Abs 05/25/2024 12:55:20 0.48 0.00-1.10 (K/uL) Final Eos, Abs 05/25/2024 12:55:20 0.06 0.00-0.70 (K/uL) Final Basos, Abs 05/25/2024 12:55:20 0.03 0.00-0.20 (K/uL) Final Immature Granulocytes, Number 05/25/2024 12:55:20 0.02 0.00-0.20 (K/uL) Final Performing Location [facility] [place] - [facility] [place] [address]
--- OUTSIDE RECORDS SUMMARY | 2024-07-03 22:59 | External Medical Summary | Summary of Care ---
Author Name Unknown Organization [facility] Address [address] [place] [address] Phone [phone] Care Team Providers Care Book Trimmer Name Role Phone Bharati Wang MD Primary Care Provide r Reason for Visit * Reason Comments Re-Check Encounter Details Date Type Department Care Team (Late st Contact Info) Description 05/25/2024 12:00 PM EST Office Visit Family Medicine [address] [phone] Bharati Wang MD [address] [place] [address] SAHIL Ballard [phone] Anemia, unspecified type*; Healing wound; Carotid-cavernous fistula; HTN, goal below 150/90 Allergies Active Allergy Reactions Criticality Noted Date [...] Job Start Date Job End Date 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 Not on file Not on file Not on file documented as of this encounter Last Filed Vital Signs Vital Sign Reading Time Taken Comments Blood Pressure 122/62 05/25/2024 12:11 PM EST Pulse 84 05/25/2024 12:11 PM EST Temperature 36.1 C (97 F) 05/25/2024 12:11 PM EST Respiratory Rate - - Oxygen Saturation 99% 05/25/2024 12:11 PM EST Inhaled Oxygen Concentration - - Weight - - Height - - Body Mass Index - - documented in this encounter Progress Notes * Bharati Wang MD - 05/25/2024 12:22 PM EST Subjective: HPI: Josefa Ramírez is a 88 year old female with hx of mild COPD (daily smokers), HLD, Contreras's esophagus, GERD, HTN, IBS, CKD II-III, B/L carotid AA stenosis, Insomnia, DDD, hx of back surgery (T11-L1 decompression and Fusion ), mild mitral regurgitation, cavernous sinus fistula s/p coil embolization seen for Hx of cavernous sinus fistula s/p coil embolization on 04/15 - with L iliac thromboembolectomy with external iliac stent grafting of the dissection flap on 04/16 - discharged on eliquis for 3 months - complicated with anemia and retroperitoneal hematoma on 04/21 - on repeat lab hgb improving Today: - stopped taking iron due to constipation - but eating more iron rich food - L eye swelling is better - denied any L leg pain or swelling - still having mild drainage from the L groin incision - denied any malordor or fever or pain - continue not take lisinopril Patient Active Problem List Diagnosis Irritable bowel [...] Hyperbilirubinemia Age-related osteoporosis without current pathological fracture Current Outpatient Medications Medication Sig Dispense Refill [...] Calcaneal spur left foot Chronic bronchitis, obstructive ([facility]) EMPHYSEMA CHRONIC COPD, MODERATE 09/18/2006 Per COPD Protocol #24. COPD W BRONCHITIS,EMPHYSEMATOS Last PFT - 2006-10-15 COPD, severity to be determined ([facility]) COVID-19 11/24/2021 home test positive, treated with [...] of humerus, left, closed, initial encounter 08/07/2019 [facility] HTN, goal below 130/80 04/19/2009 Hypercalcemia 09/2008 Kidney disease, chronic, stage III (GFR 30-59 ml/min) ([facility]) Need for prophylactic hormone replacement therapy (postmenopausal) [...] ARTERY performed by Samson Dennis MDat [facility] BLEPHAROPTOSIS, FRONTALIS, REPAIR Bilateral 08/10/2015 CAROTID (INTERNAL) ARTERY CATHETHER PLACEMENT Bilateral 03/27/2024 CATHETER PLACEMENT INTERNAL CAROTID ARTERY RADIAL ACCESS performed by Yann Jackson MD at [facility] CAROTID (INTERNAL) ARTERY CATHETHER PLACEMENT Bilateral 04/15/2024 CATHETER PLACEMENT INTERNAL CAROTID ARTERY performed by Yann Jackson MD at [facility] CAROTID (EXTERNAL) ARTERY CATHETHER PLACEMENT Bilateral 03/27/2024 CATHETER PLACEMENT EXTERNAL CAROTID ARTERY performed by Yann Jackosn MD at [facility] CAROTID (EXTERNAL) ARTERY CATHETHER PLACEMENT Bilateral 04/15/2024 CATHETER PLACEMENT EXTERNAL CAROTID ARTERY performed by Yann Jackson MD at [facility] CATHETER OCCLUSION/EMBOLIZATION,PRODUCT DEVELOPMENT ENGINEER N/A 04/15/2024 TRANSCATHETER PERMANENT ARTERIAL OCCLUSION CENTRAL NERVOUS SYSTEM performed by Yann Jackson MD at [facility] CERVICAL LAMINOPLAST W/DECOMP,RECON 06/17/2006 Dr. Potts COLONOSCOPY, DIAGNOSTIC (RECTUM) 03/08/2015 adenomatous polyps, repeat 5 yrs/COLONOSCOPY FLEXIBLE PROXIMAL DIAGNOSTIC performed by Rene Elise MD at [facility] COLONOSCOPY, DIAGNOSTIC (RECTUM) 07/27/2020 benign adenomatous polyps / COLONOSCOPY FLEXIBLE PROXIMAL DIAGNOSTIC performed by Rene Elise MD at [facility] COLONOSCOPY, GI REFERRAL OP 01/16/2005 Dr. Mcneil - diverticulosis CT SINUSES W WO CONTRAST 06/06/2006 air fluid levels in bilateral maxillary and sphenoid sinuses, frontal sinus opacified, mucosal thickening of ethmoids, left osteomeatal complex opacified, left nasal septal deviation EGD, FLEXIBLE, DIAGNOSTIC 11/14/2020 [place], hiatal hernia, repeat 6 mo / ESOPHAGOGASTRODUODENOSCOPY (EGD), FLEXIBLE, TRANSORAL, DIAGNOSTIC performed by Santi Edwards MD at [facility] EGD, FLEXIBLE, DIAGNOSTIC 08/29/2021 [place], hiatal hernia, repeat 2 yrs / ESOPHAGOGASTRODUODENOSCOPY (EGD), FLEXIBLE, TRANSORAL, DIAGNOSTIC performed by Santi Edwards MD at [facility] EGD, FLEXIBLE, DIAGNOSTIC 09/30/2020 Bleeding esophagitis with underlying Contreras's esophagus, repeat 6 wks / INPT [facility] EGD, FLEXIBLE, W/BIOPSY 08/16/2006 path-no abnormalities FULL PULMONARY FUNCTION TEST 05/2000 HEMORRHOIDECTOMY, SIMPLE, 1 COLUMN Remote past ILIAC ART. REVASC W/ STENT+ANGIOPLASTY 04/16/2024 ILIAC ARTERY REVASC W/ STENT+ANGIOPLASTY performed by Samson Dennis MD at [facility] INTRACRANIAL ARTERIES CATH PLACEMENT Bilateral 04/15/2024 CATHETER PLACEMENT EACH INTRACRANIAL BRANCH OF THE INTERNAL CAROTID OR VERTEBRAL ARTERIES performedby Yann Jackson MD at [facility] IR ARTERIOGRAM EXTREMITY UNILATERAL 04/16/2024 IMAGING SUPERVISION & INTERPRETATION EXTREMITY UNILATERAL performed by Samson Dennis MD at [facility] L-/S-SPINE PARAVERTEBRAL FACET INJ,1 LEVEL 02/09/2019 L-/S-SPINE PARAVERTEBRAL FACET INJ, 1 LEVEL performed by [place] Dioni Caballero DO at [facility] L-/S-SPINE PARAVERTEBRL FACET INJ,2 LEVELS 02/09/2019 L-/S-SPINE PARAVERTEBRAL FACET INJ, 2 LEVELS performed by [place] Dioni Caballero DO at OR [facility] LUMBAR DISC ARTHROPLAST,REMV,ADDL INTERSPCE 01/2010 Dr Potts LUMBAR SPINE FUSION W/BONE GRAFT 02/23/2005 Dr. Potts - [facility] LUMBAR SPINE FUSION W/BONE GRAFT 07/19/2016 Dr. Potts - [facility] MAMMOGRAM SCREENING-BILATERAL 02/1999 REMOVAL OF OVARY/OVIDUCT(S) 18 yo right REMOVE CATARACT, INSERT LENS PROSTH 12/2004 bilateral - [facility] REMOVE GALLBLADDER REVERSE TOTAL SHOULDER ARTHROPLASTY Left 09/29/2020 [facility] [place] SACROILIAC JOINT INJECT W/GUIDANCE 11/13/2018 INJECTION SACROILIAC JOINT performed by Chris Caballero DO at OR [facility] SACROILIAC JOINT INJECT W/GUIDANCE 12/11/2018 INJECTION SACROILIAC JOINT performed by [place] Dioni Caballero DO at [facility] SHOULDER ARTHROSCOPY/SURGERY 06/07/2010 [facility] - [facility]- right shoulder repair SPINAL FUSION, LUMBAR, COMBINED 07/19/2016 Dr. Potts- [facility] TOTAL ABD HYSTERECTOMY W/WO REMOVAL OF TUBE(S) 26 yo one ovary still in VERTEBRAL ARTERY CATHETER PLACEMENT Bilateral 03/27/2024 CATHETER PLACEMENT VERTEBRAL ARTERY, performed by Yann Jackson MD at [facility] VERTEBRAL ARTERY CATHETER PLACEMENT Bilateral 04/15/2024 CATHETER PLACEMENT VERTEBRAL ARTERY, performed by Yann Jackson MD at [facility] Review of patient's allergies indicates: Allergen Reactions Ampicillin Hives/trouble breathing Azithromycin hives and angioedema Ranitidine rash Family History Problem Relation Name Age of Onset Other (CAD) Father Hypertension Mother Social History Tobacco Use Smoking status: Former Current packs/day: 1.00 Average packs/day: 1 pack/day for 57.6 years (57.6 ttl pk-yrs) Types: Cigarettes Start date: 1965 Smokeless tobacco: Never Substance Use Topics Alcohol use: No Vaping/E-Cigarette Use Vaping/E-Cigarette Use Never Assessed Vaping/E-Cigarette Substances Vaping/E-Cigarette Devices ROS: -Per HPI OBJECTIVE: BP 122/62 | Pulse 84 | Temp 97 F (36.1 C) (Tympanic) | SpO2 99% PHYSICAL EXAM: Vitals are reviewed General:. NAD, well developed HEENT:. 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 Normal gait Psych:. 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 | Check-out note: With me I spent a total of 30-39 minutes (exact time 35 mins) on the date of service in preparation, delivery, and documentation of the care provided to Josefa Ramírez excluding any time spent in the performance of separately billed services or time spent by another provider/QHP. Bharati Wang MD Family medicine[address] [address] documented in this encounter Nursing Notes * Meg Lam LPN - 05/25/2024 12:11 PM EST Return visit Saw Dr. Llamas 05/18 Still having some draining from open spot in groin. documented in this encounter Plan of Treatment Upcoming Encounters Date Type Department Care Team (Late st Contact Info) Description 05/29/2024 8:00 AM EST Imaging Radiology [address], [address] [address] 06/01/2024 12:00 PM EST Appointment Vascular Lab [address] [address] 06/01/2024 12:30 PM EST Appointment Vascular Lab [address] [address] 06/01/2024 1:20 PM EST Office Visit Vascular Surg [address] [address] Samson Dennis MD [facility] [place] [address] 06/22/2024 9:00 AM EST Office Visit [address] [address] Bharati Wang MD [address] [place] [address] [place] [address] 09/10/2024 11:30 AM EDT Office Visit Neurosurgery[address] [address] Yann Jackson MD [facility] [place] [phone] Pending Results Name Type Priority Associated Diagnoses Date /Time CBC WITH WBC DIFFERENTIAL Lab Routine Anemia, unspecified type 05/25/2024 12:55 PM EST CBC Lab Routine Anemia, unspecified type 05/25/2024 12:55 PM EST DIFFERENTIAL, AUTOMATED Lab Routine Anemia, unspecified type 05/25/2024 12:55 PM EST Scheduled Procedures Name Priority Associated Diagnoses [...] D LEVEL ONCE IN A LIFETIME-USE SMARTSET# 06354 Completed 02/12/2018, 04/25/2015, 09/24/2014, Additional history exists [...] this encounter Medical Devices Implanted Type Area Pipefitter Welder Device Identifier Shelf Expiration Date Model / Serial / Lot Coil Target 3d [id number] - [id number] Implanted:Qty : 1 on 04/15/2024 by Yann Jackson MD at [facility] N/A: Head ANNAMARIA : NEUROVASCULAR [id number] 12/16/2024 [id number] / / [id number] 6cm, Coil Swiftpac Implanted:Qty : 1 on 04/15/2024 by Yann Jackson MD at [facility] N/A: Head [employer] 12/16/2028 [id number] / / [id number] 45cm, Coil Swiftpac Implanted:Qty : 1 on 04/15/2024 by Yann Jackson MD at [facility] N/A: Head [employer] 12/16/2028 [id number] / / [id number] 60cm, Coil Swiftpac Implanted:Qty : 1 on 04/15/2024 by Yann Jackson MD at [facility] N/A: Head [employer] 11/02/2028 [id number] / / [id number] Coil Target 3d [id number] - [id number] Implanted:Qty : 1 on 04/15/2024 by Yann Jackson MD at [facility] N/A: Head ANNAMARIA : NEUROVASCULAR [id number] 12/24/2024 [id number] / / [id number] Coil Target 360 Soft 4fic01vp - [id number] Implanted:Qty : 1 on 04/15/2024 by Yann Jackson MD at [facility] N/A: Head ANNAMARIA : NEUROVASCULAR [id number] 06/23/2025 [id number] / / [id number] Coil Target 360 Ultra 4uvd06ep - [id number] Implanted:Qty : 1 on 04/15/2024 by Yann Jackson MD at [facility] N/A: Head ANNAMARIA : NEUROVASCULAR [id number] 05/04/2026 [id number] / / [id number] Coil Target 360 Ultra 1dtc8nf - [id number] Implanted:Qty : 1 on 04/15/2024 by Yann Jackson MD at [facility] N/A: Head ANNAMARIA : NEUROVASCULAR [id number] 02/03/2025 [id number] 80 / / [id number] 10cm, Coil Swiftpac Implanted:Qty : 2 on 04/15/2024 by Yann Jackson MD at [facility] N/A: Head [employer] 12/24/2028 [id number] / / [id number] 30cm, Coil Swiftpac Implanted:Qty : 1 on 04/15/2024 by Yann Jackson MD at [facility] N/A: Head [employer] 12/24/2028 [id number] / / [id number] 60cm, Coil Swiftpac Implanted:Qty : 1 on 04/15/2024 by Yann Jackson MD at [facility] N/A: Head [employer] 11/02/2028 [id number] / / [id number] 6cm, Coil Swiftpac Implanted:Qty : 1 on 04/15/2024 by Yann Jackson MD at [facility] N/A: Head [employer] 12/16/2028 [id number] / / [id number] Stent Vasc Hep 8mmx7.9h609hf - [id number] Implanted:Qty : 1 on 04/16/2024 by Samson Dennis MD at [facility] Left: Iliac [employer] [id number] 12/29/2026 [id number] / [id number] / [id number] documented as of this encounter Visit Diagnoses Diagnosis Anemia, unspecified type- Primary Healing wound Carotid-cavernous fistula Arteriovenous fistula, acquired HTN, goal below 150/90 documented in this encounter Advance Directives * [...] Discussed due to patient's condition Care Teams Book Trimmer Relationship Specialty Start Date End Date Bharati Wang MD [address] [place] [address] SAHIL Ballard [phone] PCP - General Family Medicine 10/02/21 documented as of this encounter"
--- OUTSIDE RECORDS SUMMARY | 2024-07-03 22:59 | External Medical Summary | Summary of Care ---
Author Name Unknown Organization [facility] Address [address] [place] [address] Phone [phone] Care Team Providers Care Livestock Buyer Name Role Phone Bharati Wang MD Primary Care Provide r Encounter Details Date Type Department Care Team (Late st Contact Info) Description 06/15/2024 Population Health External Data Unspecified Department Allergies Active Allergy Reactions Criticality Noted Date Comments Ampicillin 09/23/2003 Hives/trouble breathing Azithromycin 09/24/2003 hives and angioedema Ranitidine 10/29/2002 rash documented as of this encounter (statuses as of 06/15/2024) Medications VITAMIN D 2000 UNITS PO CAPS [...] as of this encounter (statuses as of 06/15/2024) Active Problems Problem Noted Date Diagnosed Date [...] as of this encounter (statuses as of 06/15/2024) Resolved Problems Problem Noted Date Diagnosed Date [...] fracture of humerus 08/07/2019 01/22/2024 Overview (08/10/2019): [facility] Bilateral sciatica 06/01/2019 Spasm of muscle 02/25/2019 08/10/2019 HZV (herpes [...] as of this encounter (statuses as of 06/15/2024) Immunizations Name Administration Dates Next Due COVID-19 mRNA, LNP-s, No Pre serve, 2-Dose Series (Moderna) 07/24/2020,06/26/2020 COVID-19, mRNA, LNP-s, PF, B ooster, 100mcg/0.5mg (Moderna) 03/28/2021 Covid-19, Mrna, Lnp-s, Pf, B ivalent, 30 Mcg, IM, 12 yrs and above (Vantos) 02/27/2022 Pneumococcal Conjugate Vacc, 13 Valent (Prevnar) [...] Job Start Date Job End Date 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 Not on file Not on file Not on file documented as of this encounter Plan of Treatment Upcoming Encounters Date Type Department Care Team (Late st Contact Info) Description 06/19/2024 12:30 PM EST Appointment Vascular Lab [place] [address] [place] [address] 06/19/2024 1:00 PM EST Appointment Vascular Lab [facility] [address] [place] [address] 06/19/2024 1:40 PM EST Office Visit Vascular Surg [place] [address] [place] [address] Isiah Merritt CRNP [facility] [place] [address] 06/22/2024 9:00 AM EST Office Visit Family Medicine [address] [phone] Bharati Wang MD [address] [place] [address] [place] [address] 09/10/2024 11:30 AM EDT Office Visit Neurosurgery[address] [address] Yann Jackson MD [address] [place] [phone] Scheduled Procedures Name Priority Associated Diagnoses Date/Ti me ESOPHAGOGASTRODUODENOSCOPY ( EGD), FLEXIBLE, TRANSORAL, DIAGNOSTIC Recall Contreras esophagus Health Maintenance Due Date Last Done Comments Alpha-1 Antitrypsin 1953 Adult Wellness Visit 2002 DXA Scan 04/06/2018 04/06/2016, 110 09/2012, 02/08/2011, Additional history exists DTap/Tdap Vaccines [...] D LEVEL ONCE IN A LIFETIME-USE SMARTSET# 52397 Completed 02/12/2018, 04/25/2015, 09/24/2014, Additional history exists [...] this encounter Medical Devices Implanted Type Area Cooker Sulfate Device Identifier Shelf Expiration Date Model / Serial / Lot Coil Target 3d 5mdi5wf - [id number] Implanted:Qty : 1 on 04/15/2024 by Yann Jackson MD at [facility] N/A: Head ANNAMARIA : NEUROVASCULAR [id number] 12/16/2024 [id number] 60 / / [id number] 6cm, Coil Swiftpac Implanted:Qty : 1 on 04/15/2024 by Yann Jackson MD at [facility] N/A: Head [employer] 12/16/2028 [id number] / / [id number] 45cm, Coil Swiftpac Implanted:Qty : 1 on 04/15/2024 by Yann Jackson MD at [facility] N/A: Head [employer] 12/16/2028 [id number] / / [id number] 60cm, Coil Swiftpac Implanted:Qty : 1 on 04/15/2024 by Yann Jackson MD at [facility] N/A: Head [employer] 11/02/2028 [id number] / / [id number] Coil Target 3d 7ssj4da - [id number] Implanted:Qty : 1 on 04/15/2024 by Yann Jackson MD at [facility] N/A: Head ANNAMARIA : NEUROVASCULAR [id number] 12/24/2024 [id number] 60 / / [id number] Coil Target 360 Soft 5yxt16dw - [id number] Implanted:Qty : 1 on 04/15/2024 by Yann Jackson MD at [facility] N/A: Head ANNAMARIA : NEUROVASCULAR [id number] 06/23/2025 [id number] 00 / / [id number] Coil Target 360 Ultra 3qkk71sr - [id number] Implanted:Qty : 1 on 04/15/2024 by Yann Jackson MD at [facility] N/A: Head ANNAMARIA : NEUROVASCULAR [id number] 05/04/2026 [id number] / / [id number] Coil Target 360 Ultra 8rul1fg - [id number] Implanted:Qty : 1 on 04/15/2024 by Yann Jackson MD at [facility] N/A: Head ANNAMARIA : NEUROVASCULAR [id number] 02/03/2025 [id number] 80 / / [id number] 10cm, Coil Swiftpac Implanted:Qty : 2 on 04/15/2024 by Yann Jackson MD at [facility] N/A: Head [employer] 12/24/2028 [id number] / / [id number] 30cm, Coil Swiftpac Implanted:Qty : 1 on 04/15/2024 by Yann Jackson MD at [facility] N/A: Head [employer] 12/24/2028 [id number] / / [id number] 60cm, Coil Swiftpac Implanted:Qty : 1 on 04/15/2024 by Yann Jackson MD at [facility] N/A: Head [employer] 11/02/2028 [id number] / / [id number] 6cm, Coil Swiftpac Implanted:Qty : 1 on 04/15/2024 by Yann Jackson MD at [facility] N/A: Head [employer] 12/16/2028 [id number] / / [id number] Stent Vasc Hep 8mmx7.8i164fc - [id number] Implanted:Qty : 1 on 04/16/2024 by Samson Dennis MD at [facility] Left: Iliac [employer] [id number] 12/29/2026 [id number] / [id number] / [id number] documented as of this encounter Advance Directives [...] Discussed due to patient's condition Care Teams Livestock Buyer Relationship Specialty Start Date End Date Bharati Wang MD [address] [place] [address] [place] Ball[place] [address] PCP - General Family Medicine 10/02/21 documented as of this encounter
--- OUTSIDE RECORDS SUMMARY | 2024-07-03 22:59 | External Medical Summary ---
Author Name Unknown Address Unknown Organization [id number]:[facility] - [address] [place] [address] Laboratory Report Ordering Provider Test Date Status BAUTISTA KELLY 05/25/2024 12:55:20 Negra l Observation Date Value Abnormality Reference (Units ) Status WBC, Total 05/25/2024 12:55:20 5.43 4.00-10.80 (K/uL) Final RBC 05/25/2024 12:55:20 3.92 3.85-5.15 (M/uL) Final Hemoglobin 05/25/2024 12:55:20 11.5 Below low normal 12.0-15.3 (g/dL) Final HCT 05/25/2024 12:55:20 37.5 36.0-45.2 (%) Final MCV 05/25/2024 12:55:20 95.7 81.5-97.5 (fL) Final MCH 05/25/2024 12:55:20 29.3 27.0-34.0 (pg) Final MCHC 05/25/2024 12:55:20 30.7 32.0-36.0 (g/dL) Final RDW 05/25/2024 12:55:20 14.9 11.5-15.5 (%) Final Platelets 05/25/2024 12:55:20 249 140-400 (K/uL) Final MPV 05/25/2024 12:55:20 10.0 6.6-11.1 (fL) Final Nucleated erythrocytes/100 leukocytes [Ratio] in Blood by Automated count 05/25/2024 12:55:20 0 <=0 (/100 WBCs) Final Performing Location LAB[facility] - [address] [place] [address]
--- OUTSIDE RECORDS SUMMARY | 2024-07-03 22:59 | External Medical Summary | Summary of Care ---
Author Name Unknown Organization [facility] Address [address] [place] [address] Phone [phone] Care Team Providers Care Environmental Technician Name Role Phone Bharati Wang MD Primary Care Provide r Reason for Visit * Reason Onset Date Comments Advice 05/15/2024 Encounter Details Date Type Department Care Team (Late st Contact Info) Description 05/15/2024 Telephone Family Medicine [address] [phone] Bharati Wang MD [address] [place] [address] [place] [address] Advice Allergies Active Allergy Reactions Criticality Noted Date Comments Ampicillin 09/23/2003 Hives/trouble breathing Azithromycin 09/24/2003 hives and angioedema Ranitidine 10/29/2002 rash documented as of this encounter (statuses as of 05/18/2024) Medications VITAMIN D 2000 UNITS PO CAPS [...] the evening 16 g 02/03/20 24 Active Omeprazole 40 MG Oral Capsule Delayed Release (PriLOSEC)Indic ations:Contreras' s esophagus with dysplasia TAKE ONE CAPSULE BY MOUTH EVERY MORNING 100 Capsule 3 04/05/20 24 Active amLODIPine Besylate 5 MG Oral Tablet (Norvasc)Indica tions:HTN, goal below 150/90 TAKE ONE TABLET BY MOUTH EVERY MORNING 90 Tablet 3 04/13/20 24 Active Rosuvastatin Calcium 20 MG Oral Tablet (Crestor)Indica tions:Carotid stenosis, non-symptomatic , bilateral TAKE ONE TABLET BY MOUTH EVERY DAY 90 Tablet 3 04/13/20 24 Active Clopidogrel Bisulfate 75 MG Oral Tablet (pLAVix)Indicat ions:Carotid-ca vernous fistula,Thrombo embolus (HCC) Take 1 Tablet by mouth in the morning. 30 Tablet 5 05/15/20 24 Active Apixaban 5 MG Oral Tablet (Eliquis)Indica tions:Carotid-c avernous fistula,Thrombo embolus (HCC) Take 1 Tablet by mouth in the morning and 1 Tablet before bedtime. 60 Tablet 05/15/20 24 Active Apixaban 5 MG Oral Tablet (Eliquis) Take 2 Tablets by mouth 2 times a day for 7 days, THEN 1 Tablet 2 times a day. 90 Tablet 1 4 12:53 PM EST 04/18/20 24 024 Discontinued(Re fill) Clopidogrel Bisulfate 75 MG Oral Tablet (pLAVix) Take 1 Tablet by mouth in the morning. 30 Tablet 5 4 12:53 PM EST 04/19/20 24 024 Discontinued(Re fill) Vitron-C 65-125 MG Oral Tablet (Iron-Vitamin C 65-125 mg per tab)Indications :Anemia, unspecified type Take 1 Tablet by mouth in the morning. 90 Tablet 04/29/20 24 024 Discontinued documented as of this encounter (statuses as of 05/18/2024) Active Problems Problem Noted Date Diagnosed Date [...] as of this encounter (statuses as of 05/18/2024) Resolved Problems Problem Noted Date Diagnosed Date [...] as of this encounter (statuses as of 05/18/2024) Immunizations Name Administration Dates Next Due COVID-19 [...] No 04/20/2024 Does the household have a [facility] source of income? 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 Not on file Not on file Not on file documented as of this encounter Miscellaneous Notes * Telephone Encounter - Sandra Recinos CMA - 05/18/2024 2:40 PM EST Patient was seen today in the office. * Telephone Encounter - Bharati Wang MD - 05/15/2024 1:40 PM EST on discharge summary from 04/15 it says the eliquis for 3 months - will discuss further during the clinic visit - eliquis 1 month sent * Telephone Encounter - Mirna Enlgish LPN - 05/15/2024 8:59 AM EST Pt calling to inquiring if she needs to continue eliquis after 05/25/24? RX from [facility] has refills but has end date of 05/25/24, she is confused if she will be continuing it. If she is to continueEliquis she will need RX sent to [facility]. Please advise. She also needs the plavix sent to [facility]. Pending. documented in this encounter Plan of Treatment Upcoming Encounters Date Type Department Care Team (Late st Contact Info) Description 05/25/2024 12:00 PM EST Office Visit Family [address] [phone] Bharati Wang MD [address] [place] [address] [place] [address] 05/29/2024 8:00 AM EST Imaging Radiology [facility], [address] [address] 06/01/2024 12:00 PM EST Appointment Vascular Lab [address] [address] 06/01/2024 12:30 PM EST Appointment Vascular Lab [place] [address] [place] [address] 06/01/2024 1:20 PM EST Office Visit Vascular Surg [place] [address] [place] [address] Samson Dennis MD [facility] [place] [address] 06/05/2024 1:20 PM EST Office Visit Family [address] [phone] Latha Shah [address] [place] [address] 09/10/2024 11:30 AM EDT Office Visit Neurosurgery, [place] [address] [place] [address] Yann Jackson MD [address] [place] [address] Scheduled Procedures Name Priority Associated Diagnoses Date/Ti [...] Albumin/Creatinine Ratio 03/02/2027 03/02/2024, 08/25 Pneumococcal Vaccine: 65+ Years Completed 08/12/2014, 03/11/2002 VITAMIN D LEVEL ONCE IN A LIFETIME-USE SMARTSET# 47067 Completed 02/12/2018, 04/25/2015, 09/24/2014, Additional history exists [...] this encounter Medical Devices Implanted Type Area Manager Of Medical Device Identifier Shelf Expiration Date Model / Serial / Lot Coil Target 3d [id number] - [id number] Implanted:Qty : 1 on 04/15/2024 [place] [facility] [place] Head ANNAMARIA : NEUROVASCULAR [id number] 12/16/2024 [id number] 60 / / [id number] 6cm, Coil Swiftpac Implanted:Qty : 1 on 04/15/2024 by Yann [place] [facility]: Head [employer] 12/16/2028 [id number] / / [id number] 45cm, Coil Swiftpac Implanted:Qty : 1 on 04/15/2024 by Yann [place] [facility]: Head [employer] 12/16/2028 [id number] / / [id number] 60cm, Coil Swiftpac Implanted:Qty : 1 on 04/15/2024 by Yann Jackson [place] [facility]: Head [employer] 11/02/2028 [id number] / / [id number] Coil Target 3d 6dvt1ok - [id number] Implanted:Qty : 1 on 04/15/2024 by Yann Jackson [place] [facility]: Head ANNAMARIA : NEUROVASCULAR [id number] 12/24/2024 [id number] 60 / / [id number] Coil Target 360 Soft 8wab23jt - [id number] Implanted:Qty : 1 on 04/15/2024 by Yann Jackson [place] [facility]: Head ANNAMARIA : NEUROVASCULAR [id number] 06/23/2025 [id number] 00 / / [id number] Coil Target 360 Ultra 7wqq75nd - [id number] Implanted:Qty : 1 on 04/15/2024 by Yann Jackson MD [place] [facility]: Head ANNAMARIA : NEUROVASCULAR [id number] 05/04/2026 [id number] 00 / / [id number] Coil Target 360 Ultra 5vnf9xa - [id number] Implanted:Qty : 1 on 04/15/2024 by Yann Jackson MD [place] [facility]: Head ANNAMARIA : NEUROVASCULAR [id number] 02/03/2025 [id number] 80 / / [id number] 10cm, Coil Swiftpac Implanted:Qty : 2 on 04/15/2024 by Yann Jackson MD [place] [facility]: Head [employer] 12/24/2028 [id number] / / [id number] 30cm, Coil Swiftpac Implanted:Qty : 1 on 04/15/2024 by Yann Jacskon MD [place] [facility]: Head [employer] 12/24/2028 [id number] / / [id number] 60cm, Coil Swiftpac Implanted:Qty : 1 on 04/15/2024 by Yann Jackson MD [place] [facility]: Head [employer] 11/02/2028 [id number] / / [id number] 6cm, Coil Swiftpac Implanted:Qty : 1 on 04/15/2024 by Yann Jackson MD [place] [facility]A: Head [employer] 12/16/2028 [id number] / / [id number] Stent Vasc Hep 8mmx7.8f336ha - [id number] Implanted:Qty : 1 on 04/16/2024 by Samson Dennis MD [place] [facility] Left: Iliac [employer] [id number] 12/29/2026 [id number] / [id number] / [id number] documented as of this encounter Visit Diagnoses Diagnosis Carotid-cavernous fistula- Primary Arteriovenous fistula, 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
--- OUTSIDE RECORDS SUMMARY | 2024-07-03 22:59 | External Medical Summary | Summary of Care ---
Author Name Unknown Organization [facility] Address [address] [place] [address] Phone [phone] Care Team Providers Care Research And Insights Executive Name Role Phone Bharati Wang MD Primary Care Provide r Reason for Visit * Reason Onset Date Comments Hospital Follow-Up 04/17/2024 Appointment 04/17/2024 Encounter Details Date Type Department Care Team (Late st Contact Info) Description 04/17/2024 Telephone Vascular Surg [facility] [address] [place] [address] Samson Dennis MD [address] [place] [address] Hospital Follow-Up; Appointment Allergies Active Allergy Reactions Criticality Noted Date Comments Ampicillin 09/23/2003 Hives/trouble breathing Azithromycin 09/24/2003 hives and angioedema Ranitidine 10/29/2002 rash documented as of this encounter (statuses as of 06/01/2024) Medications VITAMIN D 2000 UNITS PO CAPS Take 2,000 Units by mouth daily with dinner. [address] ARTHRITIS PAIN 500 MG PO TABS Take by mouth. Active Cyanocobalamin 1000 MCG Oral Tablet Take 1 Tablet by mouth daily at noon. 8 Active Loratadine 10 MG Oral Tablet (Claritin)Yamileth cations:Nasal congestion Take 1 Tablet by mouth every night at bedtime. 30 Tablet 11 3 Active Fluticasone Propionate 50 MCG/ACT Nasal Suspension (Flonase)Indic ations:Nasal congestion USE ONE SPRAY IN each nostril IN THE MORNING AND in the evening 16 g 4 Active Omeprazole 40 MG Oral Capsule Delayed Release (PriLOSEC)Yamileth cations:Cyrus t's esophagus with dysplasia TAKE ONE CAPSULE BY MOUTH EVERY MORNING 100 Capsule 3 4 Active amLODIPine Besylate 5 MG Oral Tablet (Norvasc)Indic ations:HTN, goal below 150/90 TAKE ONE TABLET BY MOUTH EVERY MORNING 90 Tablet 3 4 Active Rosuvastatin Calcium 20 MG Oral Tablet (Crestor)Indic ations:Carotid stenosis, non-symptomati c, bilateral TAKE ONE TABLET BY MOUTH EVERY DAY 90 Tablet 3 4 Active aspirin 81 MG TBEC Take 1 Tablet by mouth in the morning. 04/18/20 24 Discontinued Lisinopril 40 MG Oral TabletIndicati ons:HTN, goal below 150/90 TAKE ONE TABLET BY MOUTH IN THE MORNING 100 Tablet 3 4 04/24/20 24 Discontinued documented as of this encounter (statuses as of 06/01/2024) Active Problems Problem Noted Date Diagnosed Date [...] as of this encounter (statuses as of 06/01/2024) Resolved Problems Problem Noted Date Diagnosed Date [...] fracture of humerus 08/07/2019 01/22/2024 Overview (08/10/2019): [facility] Bilateral sciatica 06/01/2019 4 Spasm of [...] as of this encounter (statuses as of 06/01/2024) Immunizations Name Administration Dates Next Due COVID-19 [...] Date Smoking Tobacco: Every Day Cigarettes 1 57.6 Started: 1965 Smokeless Tobacco: Never Alcohol Use [...] Job Start Date Job End Date 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 * Telephone Encounter - Viktoriya Langston OSA - 06/01/2024 8:35 AM EST Patient had to cancel appointments today due to weather and will need rescheduled with , notes states 1 mth h/d there was nothing until end of Jun for reschedule ? * Telephone Encounter - Stephie Joyce PA-C - 04/17/2024 11:09 AM EST Made in error * Telephone Encounter - Nathalie Hernandez OSA - 04/17/2024 11:01 AM EST I scheduled the 5 day wound check for 04/22. I cannot get any appointments to match up for CTA. Can I schedule CT separate at [facility]? Patient is from [place] * Telephone Encounter - Nathalie Hernandez OSA - 04/17/2024 11:01 AM EST ----- Message from Chris Melendez sent at 04/17/2024 7:36 AM EST ----- Hi, Can we please have Ms Josefa Ramírez [phone] scheduled for a 5 day wound check. Has provena vacon her left groin. She will also need a 1 [address] follow up [address] Dr Dennis. CTA abdomen and pelvis ordered for review at the 1 month visit. Thank you, Chris documented in this encounter Plan of Treatment Upcoming Encounters Date Type Department Care Team (Late st Contact Info) Description 06/22/2024 9:00 AM EST Office Visit Family Medicine [address] [phone] Bharati Wang MD [address] [place] [address] [place] [address] 09/10/2024 11:30 AM EDT Office Visit Neurosurgery, [place] [address] [place] [address] Yann Jackson MD [address] [place] [address] Scheduled Procedures Name Priority Associated Diagnoses Date/Ti [...] D LEVEL ONCE IN A LIFETIME-USE SMARTSET# 59333 Completed 02/12/2018, 04/25/2015, 09/24/2014, Additional history exists [...] this encounter Medical Devices Implanted Type Area Cheese Cook Device Identifier Shelf Expiration Date Model / Serial / Lot Coil Target 3d 0ljd0ft - [id number] Implanted:Qty : 1 on 04/15/2024 by Yann Jackson MD [place] [facility] [place]/A: Head ANNAMARIA : NEUROVASCULAR [id number] 12/16/2024 [id number] / / [id number] 6cm, Coil Swiftpac Implanted:Qty : 1 on 04/15/2024 by Yann Jackson MD at [place] [facility] [place] N/A: Head [employer] 12/16/2028 [id number] / / [id number] 45cm, Coil Swiftpac Implanted:Qty : 1 on 04/15/2024 by Yann Jackson MD at [place] [facility] [place] N/A: Head [employer] 12/16/2028 [id number] / / [id number] 60cm, Coil Swiftpac Implanted:Qty : 1 on 04/15/2024 by Yann Jackson MD at [place] [facility] [place] N/A: Head [employer] 11/02/2028 [id number] / / [id number] Coil Target 3d 6spd5vv - [id number] Implanted:Qty : 1 on 04/15/2024 by Yann Jackson MD at [place] [facility] [place] N/A: Head ANNAMARIA : NEUROVASCULAR [id number] 12/24/2024 [id number] 60 / / [id number] Coil Target 360 Soft 9dko03if - [id number] Implanted:Qty : 1 on 04/15/2024 by Yann Jackson MD at [place] [facility] [place] N/A: Head ANNAMARIA : NEUROVASCULAR [id number] 06/23/2025 [id number] 00 / / [id number] Coil Target 360 Ultra 3oiw13yf - [id number] Implanted:Qty : 1 on 04/15/2024 by Yann Jackson MD at [place] [facility] [place] N/A: Head ANNAMARIA : NEUROVASCULAR [id number] 05/04/2026 [id number] 00 / / [id number] Coil Target 360 Ultra 4bxw7lq - [id number] Implanted:Qty : 1 on 04/15/2024 by Yann Jackson MD at [place] [facility] [place] N/A: Head ANNAMARIA : NEUROVASCULAR [id number] 02/03/2025 [id number] 80 / / [id number] 10cm, Coil Swiftpac Implanted:Qty : 2 on 04/15/2024 by Yann Jackson MD at [place] [facility] [place] N/A: Head [employer] 12/24/2028 [id number] / / [id number] 30cm, Coil Swiftpac Implanted:Qty : 1 on 04/15/2024 by Yann Jackson MD at [place] [facility] [place] N/A: Head [employer] 12/24/2028 [id number] / / [id number] 60cm, Coil Swiftpac Implanted:Qty : 1 on 04/15/2024 by Yann Jackson MD at [place] [facility] [place] N/A: Head [employer] 11/02/2028 [id number] / / [id number] 6cm, Coil Swiftpac Implanted:Qty : 1 on 04/15/2024 by Yann Jackson MD at [place] [facility] N/A: Head [employer] 12/16/2028 [id number] / / [id number] Stent Vasc Hep 8mmx7.0j450bs - [id number] Implanted:Qty : 1 on 04/16/2024 by Samson Dennis MD at [place] [facility] [place] Left: Iliac [employer] [id number] 12/29/2026 [id number] 2A / [id number] / [id number] documented as of this encounter Additional Health [...] Discussed due to patient's condition Care Teams Research And Insights Executive Relationship Specialty Start Date End Date Bharati Wang MD [address] [place] [address] [place] [address] PCP - General Family Medicine 10/02/21 documented as of this encounter
--- OUTSIDE RECORDS SUMMARY | 2024-07-03 22:59 | External Medical Summary | Summary of Care ---
Author Name Unknown Organization [facility] Address [address] [place] [address] Phone [phone] Care Team Providers Care Design Printer Balloon Name Role Phone Bharati Wang MD Primary Care Provide r Reason for Visit * Reason Onset Date Comments Hospital Follow-Up 04/17/2024 Appointment 04/17/2024 Encounter Details Date Type Department Care Team (Late st Contact Info) Description 04/17/2024 Telephone Vascular Surg [facility] [address] [place] [address] Samson Dennis MD [address] [place] [address] Hospital Follow-Up; Appointment Allergies Active [...] fracture of humerus 08/07/2019 01/22/2024 Overview (08/10/2019): [place] [facility] Bilateral sciatica 06/01/2019 4 Spasm of [...] Job Start Date Job End Date 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 Can I schedule [facility]? Patient is from [place] * Telephone Encounter - Nathalie Hernandez OSA - 04/17/2024 11:01 AM EST ----- Message from Chris Melendez sent at 04/17/2024 7:36 AM EST ----- Hi, Can we please have Ms Josefa Ramírez [phone] scheduled for a 5 day wound check. [...] 9:00 AM EST Office Visit Family Medicine [address] [phone] Bharati Wang MD [address] [place] [address] [place] [address] 09/10/2024 11:30 AM EDT Office Visit Neurosurgery, [place] [address] [place], [place] [address] Yann Jackson MD [address] [place] [address] Scheduled Procedures Name Priority Associated [...] D LEVEL ONCE IN A LIFETIME-USE SMARTSET# 79417 Completed 02/12/2018, 04/25/2015, 09/24/2014, Additional history exists [...] this encounter Medical Devices Implanted Type Area Instructional Design Manager Device Identifier Shelf Expiration Date Model / Serial / Lot Coil Target 3d 1rgk3ds - [id number] Implanted:Qty : 1 on 04/15/2024 by [place] [facility] [place] Head ANNAMARIA : NEUROVASCULAR [id number] 12/16/2024 [id number] 60 / / [id number] 6cm, Coil Swiftpac Implanted:Qty : 1 on 04/15/2024 by Yann Jackosn MD [place] [facility]: Head [employer] 12/16/2028 [id number] / / [id number] 45cm, Coil Swiftpac Implanted:Qty : 1 on 04/15/2024 by Yann Jackson MD [place] [facility]: Head [employer] 12/16/2028 [id number] / / [id number] 60cm, Coil Swiftpac Implanted:Qty : 1 on 04/15/2024 by Yann [place] MD [place] [facility]: Head [employer] 11/02/2028 [id number] / / [id number] Coil Target 3d 2gnk0jc - [id number] Implanted:Qty : 1 on 04/15/2024 by Yann Jackson MD [place] [facility]: Head ANNAMARIA : NEUROVASCULAR [id number] 12/24/2024 [id number] 60 / / [id number] Coil Target 360 Soft 7qji17uc - [id number] Implanted:Qty : 1 on 04/15/2024 by Yann Jackson MD [place] [facility]: Head ANNAMARIA : NEUROVASCULAR [id number] 06/23/2025 [id number] 00 / / [id number] Coil Target 360 Ultra 1pja32ls - [id number] Implanted:Qty : 1 on 04/15/2024 by Yann Jackson MD [place] [facility] [place]: Head ANNAMARIA : NEUROVASCULAR [id number] 05/04/2026 [id number] 00 / / [id number] Coil Target 360 Ultra 0eqg7it - [id number] Implanted:Qty : 1 on 04/15/2024 by Yann Jackson MD [place] [facility] [place]: Head ANNAMARIA : NEUROVASCULAR [id number] 02/03/2025 [id number] 80 / / [id number] 10cm, Coil Swiftpac Implanted:Qty : 2 on 04/15/2024 by Yann Jackson MD [place] [facility] [place]A: Head [employer] 12/24/2028 [id number] / / [id number] 30cm, Coil Swiftpac Implanted:Qty : 1 on 04/15/2024 by Yann Jackson MD [place] [facility] [place]A: Head [employer] 12/24/2028 [id number] / / [id number] 60cm, Coil Swiftpac Implanted:Qty : 1 on 04/15/2024 by Yann Jackson MD [place] [facility] [place]A: Head [employer] 11/02/2028 [id number] / / [id number] 6cm, Coil Swiftpac Implanted:Qty : 1 on 04/15/2024 by Yann Jackson MD [place] [facility] [place]/A: [employer] 12/16/2028 [id number] / / [id number] Stent Vasc Hep 8mmx7.6l821dz - [id number] Implanted:Qty : 1 on 04/16/2024 by Samson Dennis MD [place] [facility] Left: Iliac [employer] [id number] 12/29/2026 [id number] / [id number] / [id number] documented as of this encounter Additional Health [...] Discussed due to patient's condition Care Teams Design Printer Balloon Relationship Specialty Start Date End Date Bharati Wang MD [address] [place] [address] [place] [address] PCP - General Family Medicine 10/02/21 documented as of this encounter
--- OUTSIDE RECORDS SUMMARY | 2024-07-03 22:59 | External Medical Summary | Summary of Care ---
Author Name Unknown Organization [facility] Address [address] [place] [address] Phone [phone] Care Team Providers Care Mechanical Ordnance Assembler Name Role Phone Bharati Wang MD Primary Care Provide r Reason for Visit * Reason Onset Date Comments Hospital Follow-Up 04/17/2024 Appointment 04/17/2024 Encounter Details Date Type Department Care Team (Late st Contact Info) Description 04/17/2024 Telephone Vascular Surg [facility] [address] [place] [address] Samson Dennis MD [address] [place] [address] Hospital Follow-Up; Appointment Allergies Active [...] fracture of humerus 08/07/2019 01/22/2024 Overview (08/10/2019): [place] [facility] Bilateral sciatica 06/01/2019 4 Spasm of [...] Job Start Date Job End Date 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 Abby El LPN 06/01/2024 9:26 AM * Telephone Encounter - Susan Finley CRNP - 06/01/2024 8:52 AM EST Can schedule for [facility] with post-op vascular labs if no salzler available sooner. * Telephone Encounter - Viktoriya [...] CTA. Can I schedule CT separate at [facility]? Patient is from [place] * Telephone Encounter - Nathalie Hernandez OSA - 04/17/2024 11:01 AM EST ----- Message from Chris Melendez sent at 04/17/2024 7:36 AM EST ----- Hi, Can we please have Ms Josefa Ramírez [phone] scheduled for a 5 day wound check. [...] 06/19/2024 12:30 PM EST Appointment Vascular Lab [address] [address] 06/19/2024 1:00 PM EST Appointment Vascular Lab [address] [address] 06/19/2024 1:40 PM EST Office Visit Vascular Surg [facility], [address] [address] Isiah Merritt CRNP [address] [place] [address] 06/22/2024 9:00 AM EST Office Visit Family Medicine [address] [place] [phone] Bharati Wang MD [address] [place] [address] SAH[place] Ballard [address] 09/10/2024 11:30 AM EDT Office Visit Neurosurgery, [place] [address] [place] [address] Yann Jackson MD [address] [place] [address] Scheduled Procedures Name Priority Associated [...] D LEVEL ONCE IN A LIFETIME-USE SMARTSET# 57583 Completed 02/12/2018, 04/25/2015, 09/24/2014, Additional history exists [...] this encounter Medical Devices Implanted Type Area Soaker Meat Device Identifier Shelf Expiration Date Model / Serial / Lot Coil Target 3d 2dmn2wn - [id number] Implanted:Qty : 1 on 04/15/2024 by Yann Jackson MD at OR [facility] N/A: Head ANNAMARIA : NEUROVASCULAR [id number] 12/16/2024 [id number] 60 / / [id number] 6cm, Coil Swiftpac Implanted:Qty : 1 on 04/15/2024 by Yann Jacksno MD at OR [facility] N/A: Head [employer] 12/16/2028 [id number] / / [id number] 45cm, Coil Swiftpac Implanted:Qty : 1 on 04/15/2024 by Yann Jackson MD at OR [facility] N/A: Head [employer] 12/16/2028 [id number] / / [id number] 60cm, Coil Swiftpac Implanted:Qty : 1 on 04/15/2024 by Yann Jackson MD at OR [facility] N/A: Head [employer] 11/02/2028 [id number] / / [id number] Coil Target 3d 4vft4nq - [id number] Implanted:Qty : 1 on 04/15/2024 by Yann Jackson MD at OR [facility] N/A: Head ANNAMARIA : NEUROVASCULAR [id number] 12/24/2024 [id number] 60 / / [id number] Coil Target 360 Soft 3zkl22zq - [id number] Implanted:Qty : 1 on 04/15/2024 by Yann Jackson MD at OR [facility] N/A: Head ANNAMARIA : NEUROVASCULAR [id number] 06/23/2025 [id number] 00 / / [id number] Coil Target 360 Ultra 3peq66uu - [id number] Implanted:Qty : 1 on 04/15/2024 by Yann Jackson MD at OR [facility] N/A: Head ANNAMARIA : NEUROVASCULAR [id number] 05/04/2026 [id number] 00 / / [id number] Coil Target 360 Ultra 9fuy9zb - [id number] Implanted:Qty : 1 on 04/15/2024 by Yann Jackson MD at OR [facility] N/A: Head ANNAMARIA : NEUROVASCULAR [id number] 02/03/2025 [id number] 80 / / [id number] 10cm, Coil Swiftpac Implanted:Qty : 2 on 04/15/2024 by Yann Jackson MD at OR [facility] N/A: Head [employer] 12/24/2028 [id number] / / [id number] 30cm, Coil Swiftpac Implanted:Qty : 1 on 04/15/2024 by Yann Jackson MD at OR [facility] N/A: Head [employer] 12/24/2028 [id number] / / [id number] 60cm, Coil Swiftpac Implanted:Qty : 1 on 04/15/2024 by Yann Jackson MD at OR [facility] N/A: Head [employer] 11/02/2028 [id number] / / [id number] 6cm, Coil Swiftpac Implanted:Qty : 1 on 04/15/2024 by Yann Jackson MD at OR [facility] N/A: Head [employer] 12/16/2028 [id number] / / [id number] Stent Vasc Hep 8mmx7.8e708yf - [id number] Implanted:Qty : 1 on 04/16/2024 by Samson eDnnis MD at OR [facility] Left: Iliac [employer] [id number] 12/29/2026 [id number] / [id number] / [id number] documented as of this encounter Additional Health [...] Discussed due to patient's condition Care Teams Mechanical Ordnance Assembler Relationship Specialty Start Date End Date Bharati Wang MD [address] [place] [address] [place] Ball[place] [address] PCP - General Family Medicine 10/02/21 documented as of this encounter
--- OUTSIDE RECORDS SUMMARY | 2024-07-03 22:59 | External Medical Summary | Summary of Care ---
Author Name Unknown Organization [facility] Address [address] [place] [address] Phone [phone] Care Team Providers Care Independent Beauty Consultant Name Role Phone Bharati Wang MD Primary Care Provide r Reason for Visit * Reason Onset Date Comments Appointment 02/18/2024 Encounter Details Date Type Department Care Team (Late st Contact Info) Description 02/18/2024 Telephone [facility] [address] [place] [address] Zehra Ridley RN Appointment Allergies Active Allergy Reactions Criticality Noted Date Comments Ampicillin 09/23/2003 Hives/trouble breathing Azithromycin 09/24/2003 hives and angioedema Ranitidine 10/29/2002 rash documented as of this encounter (statuses as of 05/19/2024) Medications VITAMIN D 2000 UNITS PO CAPS [...] as of this encounter (statuses as of 05/19/2024) Active Problems Problem Noted Date Diagnosed Date [...] as of this encounter (statuses as of 05/19/2024) Resolved Problems Problem Noted Date Diagnosed Date [...] fracture of humerus 08/07/2019 01/22/2024 Overview (08/10/2019): [place] [facility] Bilateral sciatica 06/01/2019 4 Spasm of [...] as of this encounter (statuses as of 05/19/2024) Immunizations Name Administration Dates Next Due COVID-19 [...] 0.5 mL (Fluzone) 02/14/2015,02/10/2014,02/07/2013,2011,02/20/2011,02/28/2010,02/08/2009,1 ,03/06/2007,03/20/2006 Seasonal Influenza, PF, 6 M & above, [...] No 04/20/2024 Does the household have a [facility] source of income? 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 Provided with neurosurgery scheduling number requesting return call. 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 Zehra Ridley RN Cerebrovascular Nurse Navigator [facility] documented in this encounter Plan of Treatment Upcoming Encounters Date Type Department Care Team (Late st Contact Info) Description 05/25/2024 12:00 PM EST Office Visit Family Medicine [address] [phone] Bharati Wang MD [address] [place] [address] [place] [address] 05/29/2024 8:00 AM EST Imaging Radiology [address], [address] [address] 06/01/2024 12:00 PM EST Appointment Vascular Lab [address] [address] 06/01/2024 12:30 PM EST Appointment Vascular Lab [address] [address] 06/01/2024 1:20 PM EST Office Visit Vascular Surg [address] [address] Samson Dennis MD [facility] [place] [address] 06/05/2024 1:20 PM EST Office Visit Family [address] [phone] Latha Shah CRNP [address] [place] [address] [place] [address] 09/10/2024 11:30 AM EDT Office Visit Neurosurgery, [address] [address] Yann Jackson MD [facility] [place] [phone] Scheduled Procedures Name Priority Associated Diagnoses Date/Ti [...] D LEVEL ONCE IN A LIFETIME-USE SMARTSET# [id number] Completed 02/12/2018, 04/25/2015, 09/24/2014, Additional history exists [...] this encounter Medical Devices Implanted Type Area Executive Receptionist Device Identifier Shelf Expiration Date Model / Serial / Lot Coil Target 3d 0fal2xb - [id number] Implanted:Qty : 1 on 04/15/2024 by Yann Jackson MD at OR [facility] [place] N/A: Head ANNAMARIA : NEUROVASCULAR [id number] 12/16/2024 [id number] 60 / / [id number] 6cm, Coil Swiftpac Implanted:Qty : 1 on 04/15/2024 by Yann Jackson MD at OR [facility] [place] N/A: Head [employer] 12/16/2028 [id number] / / [id number] 45cm, Coil Swiftpac Implanted:Qty : 1 on 04/15/2024 by Yann Jackson MD at OR [facility] [place] N/A: Head [employer] 12/16/2028 [id number] / / [id number] 60cm, Coil Swiftpac Implanted:Qty : 1 on 04/15/2024 by Yann Jackson MD at OR [facility] [place] N/A: Head [employer] 11/02/2028 [id number] / / [id number] Coil Target 3d 4mxz5kj - [id number] Implanted:Qty : 1 on 04/15/2024 by Yann Jackson MD at OR [facility] [place] N/A: Head ANNAMRAIA : NEUROVASCULAR [id number] 12/24/2024 [id number] 60 / / [id number] Coil Target 360 Soft 9vrx13vh - [id number] Implanted:Qty : 1 on 04/15/2024 by Yann Jackson MD at OR [facility] [place] N/A: Head ANNAMARIA : NEUROVASCULAR [id number] 06/23/2025 [id number] 00 / / [id number] Coil Target 360 Ultra 9pih75fz - [id number] Implanted:Qty : 1 on 04/15/2024 by Yann Jackson MD at OR [facility] [place] N/A: Head ANNAMARIA : NEUROVASCULAR [id number] 05/04/2026 [id number] 00 / / [id number] Coil Target 360 Ultra 7trv2xd - [id number] Implanted:Qty : 1 on 04/15/2024 by Yann Jackson MD at OR [facility] [place] N/A: Head ANNAMARIA : NEUROVASCULAR [id number] 02/03/2025 [id number] 80 / / [id number] 10cm, Coil Swiftpac Implanted:Qty : 2 on 04/15/2024 by Yann Jackson MD at OR [facility] [place] N/A: Head [employer] 12/24/2028 [id number] / / [id number] 30cm, Coil Swiftpac Implanted:Qty : 1 on 04/15/2024 by Yann Jackson MD at OR [facility] [place] N/A: Head [employer] 12/24/2028 [id number] / / [id number] 60cm, Coil Swiftpac Implanted:Qty : 1 on 04/15/2024 by Yann Jackson MD at OR [facility] [place] N/A: Head [employer] 11/02/2028 [id number] / / [id number] 6cm, Coil Swiftpac Implanted:Qty : 1 on 04/15/2024 by Yann Jackson MD at OR [facility] [place] N/A: Head [employer] 12/16/2028 [id number] / / [id number] Stent Vasc Hep 8mmx7.3a730dm - [id number] Implanted:Qty : 1 on 04/16/2024 by Samson Dennis MD at OR [facility] [place] Left: Iliac [employer] [id number] 12/29/2026 [id number] 2A / [id number] / [id number] documented as of this encounter Additional Health [...] Discussed due to patient's condition Care Teams Independent Beauty Consultant Relationship Specialty Start Date End Date Bharati Wang MD [address] [place] [address] ASHIL Ballard [phone] PCP - General Family Medicine 10/02/21 documented as of this encounter
--- OUTSIDE RECORDS SUMMARY | 2024-07-03 23:00 | External Medical Summary | Summary of Care ---
Author Name Unknown Organization [facility] Address [address] [place] [address] Phone [phone] Care Team Providers Care Quality Control Inspector Heading Name Role Phone Bharati Wang MD Primary Care Provide r Reason for Visit * Reason Onset Date Comments Advice 05/08/2024 Encounter Details Date Type Department Care Team (Late st Contact Info) Description 05/08/2024 Telephone Family Medicine [address] [phone] Bharati Wang MD [address] [place] [address] [place] [address] Advice Allergies Active Allergy Reactions Criticality Noted Date Comments Ampicillin 09/23/2003 Hives/trouble breathing Azithromycin 09/24/2003 hives and angioedema Ranitidine 10/29/2002 rash documented as of this encounter (statuses as of 05/15/2024) Medications VITAMIN D 2000 UNITS PO CAPS Take 2,000 Units by mouth daily with dinner. [address] ARTHRITIS PAIN 500 MG PO TABS Take by mouth. Active Cyanocobalamin 1000 MCG Oral Tablet Take 1 Tablet by mouth daily at noon. 8 Active Loratadine 10 MG Oral Tablet (Claritin)Indica tions:Nasal congestion Take 1 Tablet by mouth every night at bedtime. 30 Tablet 11 3 Active Fluticasone Propionate 50 MCG/ACT Nasal Suspension (Flonase)Indicat ions:Nasal congestion USE ONE SPRAY IN each nostril IN THE MORNING AND in the evening 16 g 4 Active Omeprazole 40 MG Oral Capsule Delayed Release (PriLOSEC)Indica tions:Contreras's esophagus with dysplasia TAKE ONE CAPSULE BY MOUTH EVERY MORNING 100 Capsule 3 4 Active amLODIPine Besylate 5 MG Oral Tablet (Norvasc)Indicat ions:HTN, goal below 150/90 TAKE ONE TABLET BY MOUTH EVERY MORNING 90 Tablet 3 4 Active Rosuvastatin Calcium 20 MG Oral Tablet (Crestor)Indicat ions:Carotid stenosis, non-symptomatic, bilateral TAKE ONE TABLET BY MOUTH EVERY DAY 90 Tablet 3 4 Active Apixaban 5 MG Oral Tablet (Eliquis) Take 2 Tablets by mouth 2 times a day for 7 days, THEN 1 Tablet 2 times a day. 90 Tablet 1 04/18/2024 12:53 PM EST 4 05/25/20 24 Active Clopidogrel Bisulfate 75 MG Oral Tablet (pLAVix) Take 1 Tablet by mouth in the morning. 30 Tablet 5 04/18/2024 12:53 PM EST 4 Active Vitron-C 65-125 MG Oral Tablet (Iron-Vitamin C 65-125 mg per tab)Indications: Anemia, unspecified type Take 1 Tablet by mouth in the morning. 90 Tablet 4 Active Cephalexin 500 MG Oral CapsuleIndicatio ns:Acute cystitis with hematuria Take 1 Capsule by mouth in the morning and 1 Capsule before bedtime. Do all this for 7 days. 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 When patient calls back, please give the message from provider. Sent patient a [facility] message: No Pt has another open encounter. See encounter dated . * Telephone Encounter - Bharati Wang MD - 05/08/2024 2:34 PM EST I do not suspect Kelfex is causing these symptoms - pt likely have a viral infection - if the symptoms worsens then recommend a urgent care eval * Telephone Encounter - Mariia Angel LPN - 05/08/2024 2:19 PM EST Patient's calling in as patient is not feeling well today: Symptoms started last night: Aches all over, vomiting, nausea, chills, fatigue She had a cup of coffee and a piece of toast this morning.--able to keep this down Afebrile She is currently on Cephalexin 500mg for Acute cystitis with hematuria, she did not take dose for today as they think the medication is no agreeing with her. She also did not take her Vitron-C. She took all her other routine medication. Please advise on recommendations No appt today or tomorrow. Spoke with Nenita in the office, she will have Bharati Wang MD address message. documented in this encounter Plan of Treatment Upcoming Encounters Date Type Department Care Team (Late st Contact Info) Description 05/25/2024 12:00 PM EST Office Visit Family Medicine [address] [phone] Bharati Wang MD [address] [place] [address] [place] [address] 05/29/2024 8:00 AM EST Imaging Radiology [facility], [address] [address] 06/01/2024 12:00 PM EST Appointment Vascular Lab [address] [address] 06/01/2024 12:30 PM EST Appointment Vascular Lab [facility], [address] [address] 06/01/2024 1:20 PM EST Office Visit Vascular Surg [facility], [address] [address] Samson Dennis MD [address] [place] [address] 06/05/2024 1:20 PM EST Office Visit Family Medicine [address] [place] [phone] Latha Shah CRNP [address] [place] [address] [place] [address] 09/10/2024 11:30 AM EDT Office Visit Neurosurgery, [place] [address] [place] [address] Yann Jackson MD [address] [place] [address] Scheduled Procedures Name Priority Associated Diagnoses Date/Ti me ESOPHAGOGASTRODUODENOSCOPY ( EGD), FLEXIBLE, TRANSORAL, DIAGNOSTIC Recall Contreras esophagus Health Maintenance Due Date Last Done Comments Alpha-1 Antitrypsin 1953 Adult Wellness Visit 2002 DTap/Tdap Vaccines (2 - Td or Tdap) 06/09/2023 06/09/2013, 01/08/2008 COVID-19 Vaccine ( season) 2024 02/27/2022, 03/28/2021, 07/24/2020, Additional history exists Contreras's Esophagus Surveilance 08/29/2024 08/29/2021, 08/29/2021, 11/14/2020, Additional history exists O2 ASSESSMENT COMPLETED IN PAST YEAR FOR COPD 04/16/2025 04/16/2024 Depression Screening 04/20/2025 04/20/2024 DXA Scan 04/06/2026 04/06/2016, 09/2012, 02/08/2011, Additional history exists Albumin/Creatinine Ratio 03/02/2027 03/02/2024, 08/25 Pneumococcal Vaccine: 65+ Years Completed 08/12/2014, 03/11/2002 Zoster Vaccines Completed 07/06/2019, 11/24, 09/13/2010 RETIRED [...] this encounter Medical Devices Implanted Type Area Precision Lathe Operator Device Identifier Shelf Expiration Date Model / Serial / Lot Coil Target 3d 9hcz9ek - [id number] Implanted:Qty : 1 on 04/15/2024 by Yann Jackson MD at [place] [facility] N/A: Head ANNAMARIA : NEUROVASCULAR [id number] 12/16/2024 [id number] / / [id number] 6cm, Coil Swiftpac Implanted:Qty : 1 on 04/15/2024 by Yann Jackson MD at OR [facility] N/A: Head [employer] 12/16/2028 [id number] / / [id number] 45cm, Coil Swiftpac Implanted:Qty : 1 on 04/15/2024 by Yann Jackson MD at OR [facility] N/A: Head [employer] 12/16/2028 [id number] / / [id number] 60cm, Coil Swiftpac Implanted:Qty : 1 on 04/15/2024 by Yann Jackson MD at OR [facility] N/A: Head [employer] 11/02/2028 [id number] / / [id number] Coil Target 3d 3rte4mm - [id number] Implanted:Qty : 1 on 04/15/2024 by Yann Jackson MD at OR [facility] N/A: Head ANNAMARIA : NEUROVASCULAR [id number] 12/24/2024 [id number] 60 / / [id number] Coil Target 360 Soft 5bch87vw - [id number] Implanted:Qty : 1 on 04/15/2024 by Yann Jackson MD at OR [facility] N/A: Head ANNAMARIA : NEUROVASCULAR [id number] 06/23/2025 [id number] 00 / / [id number] Coil Target 360 Ultra 5vcp22qt - [id number] Implanted:Qty : 1 on 04/15/2024 by Yann Jackson MD at OR [facility] N/A: Head ANNAMARIA : NEUROVASCULAR [id number] 05/04/2026 [id number] 00 / / [id number] Coil Target 360 Ultra 5lwf7kz - [id number] Implanted:Qty : 1 on 04/15/2024 by Yann Jackson MD at OR [facility] N/A: Head ANNAMARIA : NEUROVASCULAR [id number] 02/03/2025 [id number] 80 / / [id number] 10cm, Coil Swiftpac Implanted:Qty : 2 on 04/15/2024 by Yann Jackson MD at OR [facility] N/A: Head [employer] 12/24/2028 [id number] / / [id number] 30cm, Coil Swiftpac Implanted:Qty : 1 on 04/15/2024 by Yann Jackson MD at OR [facility] N/A: Head [employer] 12/24/2028 [id number] / / [id number] 60cm, Coil [employer]pac Implanted:Qty : 1 on 04/15/2024 by Yann Jackson MD at OR [facility] N/A: Head [employer] 11/02/2028 [id number] / / [id number] 6cm, Coil [employer] Implanted:Qty : 1 on 04/15/2024 by Yann Jackson MD at OR [facility] N/A: Head [employer] 12/16/2028 [id number] / / [id number] Stent Vasc Hep 8mmx7.9z473bh - [id number] Implanted:Qty : 1 on 04/16/2024 by Samson Dennis MD at OR [facility] Left: Iliac [employer] [id number] 12/29/2026 [id number] / [id number] / [id number] documented as of this encounter Advance Directives [...] Discussed due to patient's condition Care Teams Quality Control Inspector Heading Relationship Specialty Start Date End Date Bharati Wang MD [address] [place] [address] [place] [address] PCP - General Family Medicine 10/02/21 documented as of this encounter
--- OUTSIDE RECORDS SUMMARY | 2024-07-03 23:00 | External Medical Summary | Summary of Care ---
Author Name Unknown Organization [facility] Address [address] [place] [address] Phone [phone] Care Team Providers Care Director Index Name Role Phone Bharati Wang MD Primary Care Provide r Reason for Visit * Reason Onset Date Comments Advice 05/11/2024 Encounter Details Date Type Department Care Team (Late st Contact Info) Description 05/11/2024 Telephone Family Medicine [address] [phone] Bharati Wang MD [address] [place] [address] [place] [address] Advice Allergies Active Allergy [...] fracture of humerus 08/07/2019 01/22/2024 Overview (08/10/2019): [facility] Bilateral sciatica 06/01/2019 4 Spasm of [...] 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 Not on file Not on file Not on file documented as of this encounter Miscellaneous Notes * Telephone Encounter - Mirna English LPN - 05/15/2024 8:58 AM EST Patient aware and verbalized understanding Sx have resolved. * Telephone Encounter - Mirna English LPN - 05/11/2024 1:08 PM EST Attempted to call, no answer, left message to return call. When patient calls back, please give the message from provider. Sent patient a [facility] message: No Pt has another open encounter. See encounter dated 05/08. * Telephone Encounter - Bharati Wang MD - 05/11/2024 10:28 AM EST No need to extend the abx - pls advise the pt to increase the water intake - if no improvement then I would like to see the pt in the clinic * Telephone Encounter - Tri Caro RN - 05/11/2024 10:25 AM EST Randa. Patient states she thinks she still does have the UTI. She is still having discoloration in her urine and urge. She is almost out of her antibiotics. She is wondering if she should be put on more. Please advise. Thank you. documented in this encounter Plan of Treatment Upcoming Encounters Date Type Department Care Team (Late st Contact Info) Description 05/25/2024 12:00 PM EST Office Visit Family Medicine [address] [place] [address] Bharati Wang MD [address] [place] [address] [place] [address] 05/29/2024 8:00 AM EST Imaging Radiology [address], [address] [place] [address] 06/01/2024 12:00 PM EST Appointment Vascular Lab [address] [address] 06/01/2024 12:30 PM EST Appointment Vascular Lab [address] [address] 06/01/2024 1:20 PM EST Office Visit Vascular Surg [address] [address] Samson Dennis MD [facility] [place] [address] 06/05/2024 1:20 PM EST Office Visit Family Medicine [address] [place] [address] [address] [place] [address] 09/10/2024 11:30 AM EDT Office Visit Neurosurgery, [facility] [address] [place], [place] [phone] Yann Jackson MD [address] [place] [address] Scheduled Procedures Name Priority Associated [...] this encounter Medical Devices Implanted Type Area Locomotive Firer Device Identifier Shelf Expiration Date Model / Serial / Lot Coil Target 3d [id number] - [id number] Implanted:Qty : 1 on 04/15/2024 [place] [facility] [place] Head ANNAMARIA : NEUROVASCULAR [id number] 12/16/2024 [id number] 60 / / [id number] 6cm, Coil Swiftpac Implanted:Qty : 1 on 04/15/2024 by Yann [place] [facility] [place]: Head [employer] 12/16/2028 [id number] / / [id number] 45cm, Coil Swiftpac Implanted:Qty : 1 on 04/15/2024 by Yann Jackson [place] [facility] [place]: Head [employer] 12/16/2028 [id number] / / [id number] 60cm, Coil Swiftpac Implanted:Qty : 1 on 04/15/2024 by Yann Jackson [place] [facility] [place]: Head [employer] 11/02/2028 [id number] / / [id number] Coil Target 3d 8ctj9zw - [id number] Implanted:Qty : 1 on 04/15/2024 by Yann Jackson [place] [facility] [place]: Head ANNAMARIA : NEUROVASCULAR [id number] 12/24/2024 [id number] 60 / / [id number] Coil Target 360 Soft 8nyy33sf - [id number] Implanted:Qty : 1 on 04/15/2024 by Yann Jackson [place] [facility] [place]: Head ANNAMARIA : NEUROVASCULAR [id number] 06/23/2025 [id number] 00 / / [id number] Coil Target 360 Ultra 7qbp50nq - [id number] Implanted:Qty : 1 on 04/15/2024 by Yann Jackson [place] [facility] [place]: Head ANNAMARIA : NEUROVASCULAR [id number] 05/04/2026 [id number] 00 / / [id number] Coil Target 360 Ultra 3kbu5cd - [id number] Implanted:Qty : 1 on 04/15/2024 by Yann Jackson [place] [facility] [place]: Head ANNAMARIA : NEUROVASCULAR [id number] 02/03/2025 [id number] 80 / / [id number] 10cm, Coil Swiftpac Implanted:Qty : 2 on 04/15/2024 by Yann Jackson [place] [facility] [place]: Head [employer] 12/24/2028 [id number] / / [id number] 30cm, Coil Swiftpac Implanted:Qty : 1 on 04/15/2024 by Yann Jackson [place] [facility] [place]: Head [employer] 12/24/2028 [id number] / / [id number] 60cm, Coil Swiftpac Implanted:Qty : 1 on 04/15/2024 by Yann Jackson [place] [facility] [place]: Head [employer] 11/02/2028 [id number] / / [id number] 6cm, Coil Swiftpac Implanted:Qty : 1 on 04/15/2024 by Yann Jackson [place] [facility] [place]: Head [employer] 12/16/2028 [id number] / / [id number] Stent Vasc Hep 8mmx7.6l933oo - [id number] Implanted:Qty : 1 on 04/16/2024 by Samson Dennis [place] [facility] [place] Left: Iliac [employer] [id number] 12/29/2026 [id number] / [id number] / [id number] documented as of this encounter Advance Directives [...] Discussed due to patient's condition Care Teams Director Index Relationship Specialty Start Date End Date Bharati Wang MD [address] [place] [address] [place] [phone] PCP - General Family Medicine 10/02/21 documented as of this encounter
--- OUTSIDE RECORDS SUMMARY | 2024-07-03 23:00 | External Medical Summary | Summary of Care ---
Author Name Unknown Organization [facility] Address [address] [place] [address] Phone [phone] Care Team Providers Care Instrument Adjuster Name Role Phone Bharati Wang MD Primary Care Provide r Reason for Visit * Reason Onset Date Comments Advice 05/15/2024 Encounter Details Date Type Department Care Team (Late st Contact Info) Description 05/15/2024 Telephone Family Medicine [address] [phone] Bharati Wang MD [address] [place] [address] [place] [address] Advice Allergies Active Allergy [...] EVERY DAY 90 Tablet 3 4 Active Vitron-C 65-125 MG Oral Tablet (Iron-Vitamin C 65-125 mg per tab)Indications: Anemia, unspecified type Take 1 Tablet by mouth in the morning. 90 Tablet 4 Active Clopidogrel Bisulfate 75 MG Oral Tablet (pLAVix)Indicati ons:Carotid-cave rnous fistula,Thromboe mbolus (HCC) Take 1 Tablet by mouth in the morning. 30 Tablet 5 4 Active Apixaban 5 MG Oral Tablet (Eliquis)Indicat ions:Carotid-cav ernous fistula,Thromboe mbolus (HCC) Take 1 Tablet by mouth in the morning and 1 Tablet before bedtime. 60 Tablet 4 Active Apixaban 5 MG Oral Tablet (Eliquis) Take 2 Tablets by mouth 2 times a day for 7 days, THEN 1 Tablet 2 times a day. 90 Tablet 1 04/18/2024 12:53 PM EST 4 05/15/20 24 Discontinu ed(Refill) Clopidogrel Bisulfate 75 MG Oral Tablet (pLAVix) Take 1 Tablet by mouth in the morning. 30 Tablet 5 04/18/2024 12:53 PM EST 4 05/15/20 24 Discontinu ed(Refill) documented as of this encounter (statuses as [...] No 04/20/2024 Does the household have a [facility] source [facility]? 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 RX from [facility] has refills but has end date of 05/25/24, she is confused if she will be continuing it. If she is to continueEliquis she will need RX sent to [facility]. Please advise. She also needs the plavix sent to [facility]. Pending. documented in this encounter Plan of Treatment Upcoming Encounters Date Type Department Care Team (Late st Contact Info) Description 05/25/2024 12:00 PM EST Office Visit [address] [phone] Bharati Wang MD [address] [place] [address] [place] [address] 05/29/2024 8:00 AM EST Imaging Radiology [address], [address] [address] 06/01/2024 12:00 PM EST Appointment Vascular Lab [address] [address] 06/01/2024 12:30 PM EST Appointment Vascular Lab [address] [phone] 06/01/2024 1:20 PM EST Office Visit Vascular Surg [address] [phone] Samson Dennis MD [facility] [place] [address] 06/05/2024 1:20 PM EST Office Visit [address] [phone] Latha Shah CRNP [address] [place] [address] [place] [address] 09/10/2024 11:30 AM EDT Office Visit Neurosurgery, [address] [phone] Yann Jackson MD [facility] [place] [address] Scheduled Procedures Name Priority Associated [...] this encounter Medical Devices Implanted Type Area Jig Bore Operator Device Identifier Shelf Expiration Date Model / Serial / Lot Coil Target 3d 7zkp7wz - [id number] Implanted:Qty : 1 on 04/15/2024 [place] [facility] [place] Head ANNAMARIA : NEUROVASCULAR [id number] 12/16/2024 [id number] 60 / / [id number] 6cm, Coil Swiftpac Implanted:Qty : 1 on 04/15/2024 by Yann [place] MD [place] [facility] [place]: Head [employer] 12/16/2028 [id number] / / [id number] 45cm, Coil Swiftpac Implanted:Qty : 1 on 04/15/2024 by Yann Jackson MD [place] [facility] [place]: Head [employer] 12/16/2028 [id number] / / [id number] 60cm, Coil Swiftpac Implanted:Qty : 1 on 04/15/2024 by Yann [place] MD [place] [facility] [place]: Head [employer] 11/02/2028 [id number] / / [id number] Coil Target 3d 4ooi8zb - [id number] Implanted:Qty : 1 on 04/15/2024 by Yann Jackson MD [place] [facility] [place]: Head ANNAMARIA : NEUROVASCULAR [id number] 12/24/2024 [id number] 60 / / [id number] Coil Target 360 Soft 1itb92fp - [id number] Implanted:Qty : 1 on 04/15/2024 by Yann [place] MD [place] [facility] [place]: Head ANNAMARIA : NEUROVASCULAR [id number] 06/23/2025 [id number] 00 / / [id number] Coil Target 360 Ultra 7ebh54et - [id number] Implanted:Qty : 1 on 04/15/2024 by Yann [place] MD [place] [facility] [place]: Head ANNAMARIA : NEUROVASCULAR [id number] 05/04/2026 [id number] 00 / / [id number] Coil Target 360 Ultra 7xgo9hg - [id number] Implanted:Qty : 1 on 04/15/2024 by Yann Jackson MD [place] [facility] [place]: Head ANNAMARIA : NEUROVASCULAR [id number] 02/03/2025 [id number] 80 / / [id number] 10cm, Coil Swiftpac Implanted:Qty : 2 on 04/15/2024 by Yann [place] MD [place] [facility] [place]: Head [employer] 12/24/2028 [id number] / / [id number] 30cm, Coil Swiftpac Implanted:Qty : 1 on 04/15/2024 by Yann Jackson MD [place] [facility] [place]A: Head [employer] 12/24/2028 [id number] / / [id number] 60cm, Coil Swiftpac Implanted:Qty : 1 on 04/15/2024 by Yann Jackson MD [place] [facility] [place]A: Head [employer] 11/02/2028 [id number] / / [id number] 6cm, Coil Swiftpac Implanted:Qty : 1 on 04/15/2024 by Yann Jackson MD [place] [facility] [place]A: Head [employer] 12/16/2028 [id number] / / [id number] Stent Vasc Hep 8mmx7.6k477lq - [id number] Implanted:Qty : 1 on 04/16/2024 by Samson Dennis MD [place] [facility] [place] Left: Iliac [employer] [id number] 12/29/2026 [id number] 2A / [id number] / [id number] documented as of this encounter Visit Diagnoses [...] Discussed due to patient's condition Care Teams Instrument Adjuster Relationship Specialty Start Date End Date Bharati Wang MD [address] [place] [address] [place] [address] PCP - General Family Medicine 10/02/21 documented as of this encounter
--- OUTSIDE RECORDS SUMMARY | 2024-07-03 23:00 | External Medical Summary | Summary of Care ---
Author Name Unknown Organization [facility] Address [address] [place] [address] Phone [phone] Care Team Providers Care Mess Attendant Crew Name Role Phone Bharati Wang MD Primary Care Provide r Reason for Visit * Reason Comments Acute Encounter Details Date Type Department Care Team (Late st Contact Info) Description 05/18/2024 2:00 PM EST Office Visit Family Medicine [address] [phone] Tamica Espinal MD [address] [place] [address] [place] [phone] Healing wound*; Carotid-cavernous fistula; Age-related osteoporosis without current pathological fracture Allergies Active Allergy Reactions Criticality Noted Date [...] 8 Active Loratadine 10 MG Oral Tablet (Claritin)Indic [...] EVERY DAY 90 Tablet 3 4 Active Clopidogrel Bisulfate 75 MG Oral Tablet (pLAVix)Indicat ions:Carotid-ca vernous fistula,Thrombo embolus (HCC) Take 1 Tablet by mouth in the morning. 30 Tablet 5 4 Active Apixaban 5 MG Oral Tablet (Eliquis)Indica tions:Carotid-c avernous fistula,Thrombo embolus (HCC) Take 1 Tablet by mouth in the morning and 1 Tablet before bedtime. 60 Tablet 4 Active Vitron-C 65-125 MG Oral Tablet (Iron-Vitamin C 65-125 mg per tab)Indications :Anemia, unspecified type Take 1 Tablet by mouth in the morning. 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 Not on file Not on file documented as of this encounter Last Filed Vital Signs Vital Sign Reading Time Taken Comments Blood Pressure 120/60 05/18/2024 1:40 PM EST Pulse 84 05/18/2024 1:40 PM EST Temperature 36.4 C (97.5 F) 05/18/2024 1:40 PM ES T Respiratory Rate - - Oxygen Saturation 94% 05/18/2024 1:40 PM EST Inhaled Oxygen Concentration - - Weight 73.5 kg (162 lb) 05/18/2024 1:40 PM EST Height 162.6 cm (5' 4") 05/18/2024 1:40 PM EST Body Mass Index 27.81 05/18/2024 1:40 PM EST documented in this encounter Progress Notes * Muriel Senior, Tamica Rosa MD - 05/18/2024 1:43 PM EST Images from the original note were not included. History of Present Illness Bettina Ramírez is a 88 year old female that presents for Acute Had a procedure with vascular on Apr 18. Notes some drainage the last few days, brownish and blood tinged. Feeling well otherwise. No skin changes to the leg otherwise. Physical Exam BP 120/60 | Pulse 84 | Temp 97.5 F (36.4 C) (Tympanic) | Ht 5' 4" (1.626 m) | Wt 162 lb (73.5 kg) | SpO2 94% | BMI 27.81 kg/m | BSA 1.82 m Physical Exam Vitals and nursing note reviewed. Constitutional: General: She is not in acute distress. Appearance: Normal appearance. She is not ill-appearing. HENT: Head: Normocephalic and atraumatic. Cardiovascular: Rate and Rhythm: Normal rate and regular rhythm. Pulmonary: Effort: Pulmonary effort is normal. Breath sounds: Normal breath sounds. Musculoskeletal: Legs: Comments: Healing scar, small open area toward the superior aspect, no redness, no increased warmthno visible drainage today Neurological: Mental Status: She is alert. Assessment and Plan Healing wound Does not appear infected based on my exam. Healing. Discussed monitoring the area as it heals. 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 Age-related osteoporosis without current pathological fracture On vit D, to continue Wrap-Up Follow Up: Return for with PCP next week as scheduled. | For: with PCP next week as scheduled Time: I spent a total of 20-29 minutes (exact time 21 mins) on the date of service in preparation, delivery, and documentation of the care provided to Josefa aRmírez excluding any time spent in the performance of separately billed services. documented in this encounter Nursing Notes * Dinorah Hauser CMA - 05/18/2024 1:44 PM EST Pt here after having surgery 05/18 and think site is infected. Left leg states documented in this encounter Plan of Treatment Upcoming Encounters Date Type Department Care Team (Late st Contact Info) Description 05/25/2024 12:00 PM EST Office Visit Family Medicine [address] [place] [phone] Bharati Wang MD [address] [place] [address] [place] [address] 05/29/2024 8:00 AM EST Imaging Radiology [facility] [place] [address] [facility] [place] [address] 06/01/2024 12:00 PM EST Appointment Vascular Lab [place] [address] [place] [address] 06/01/2024 12:30 PM EST Appointment Vascular Lab [place] [address] [place] [address] 06/01/2024 1:20 PM EST Office Visit Vascular Surg [facility] [place] [address] [place] [address] Samson Dennis MD [facility] [place] [address] 06/05/2024 1:20 PM EST Office Visit Family Medicine [address] [phone] Latha [address] [place] [address] 09/10/2024 11:30 AM EDT Office Visit Neurosurgery, [place] [address] [place] [address] Yann Jackson MD [facility] [place] [phone] Scheduled Procedures Name Priority Associated Diagnoses Date/Ti [...] D LEVEL ONCE IN A LIFETIME-USE SMARTSET# 55416 Completed 02/12/2018, 04/25/2015, 09/24/2014, Additional history exists [...] this encounter Medical Devices Implanted Type Area Pediatric Intensive Physician Device Identifier Shelf Expiration Date Model / Serial / Lot Coil Target 3d [id number] - [id number] Implanted:Qty : 1 on 04/15/2024 by Yann Jackson MD [place] [facility] [place]: Head ANNAMARIA : NEUROVASCULAR [id number] 12/16/2024 [id number] 60 / / [id number] 6cm, Coil Swiftpac Implanted:Qty : 1 on 04/15/2024 by Yann Jackson MD [place] [facility] [place]A: Head [employer] 12/16/2028 [id number] / / [id number] 45cm, Coil Swiftpac Implanted:Qty : 1 on 04/15/2024 by Yann Jackson MD [place] [facility] [place]/A: Head [employer] 12/16/2028 [id number] / / [id number] 60cm, Coil Swiftpac Implanted:Qty : 1 on 04/15/2024 by Yann Jackson MD [place] [facility] [place]/A: Head [employer] 11/02/2028 [id number] / / [id number] Coil Target 3d 2opf0us - [id number] Implanted:Qty : 1 on 04/15/2024 by Yann Jackson MD [place] [facility] [place]A: Head ANNAMARIA : NEUROVASCULAR [id number] 12/24/2024 [id number] 60 / / [id number] Coil Target 360 Soft 4bbv19fm - [id number] Implanted:Qty : 1 on 04/15/2024 by Yann Jackson MD [place] [facility] [place]A: Head ANNAMARIA : NEUROVASCULAR [id number] 06/23/2025 [id number] / / [id number] Coil Target 360 Ultra 5fii49et - [id number] Implanted:Qty : 1 on 04/15/2024 by Yann Jackson MD [place] [facility] [place]/A: Head ANNAMARIA : NEUROVASCULAR [id number] 05/04/2026 [id number] 00 / / [id number] Coil Target 360 Ultra 3bdd0cs - [id number] Implanted:Qty : 1 on 04/15/2024 by Yann Jackson MD [place] [facility] [place]/A: Head ANNAMARIA : NEUROVASCULAR [id number] 02/03/2025 [id number] 80 / / [id number] 10cm, Coil Swiftpac Implanted:Qty : 2 on 04/15/2024 by Yann Jackson MD [place] [facility] [place] N/A: Head [employer] 12/24/2028 [id number] / / [id number] 30cm, Coil Swiftpac Implanted:Qty : 1 on 04/15/2024 by Yann Jackson MD at [place] [facility] [place] N/A: Head [employer] 12/24/2028 [id number] / / [id number] 60cm, Coil Swiftpac Implanted:Qty : 1 on 04/15/2024 by Yann Jackson MD at [place] [facility] [place] N/A: Head [employer] 11/02/2028 [id number] / / [id number] 6cm, Coil Swiftpac Implanted:Qty : 1 on 04/15/2024 by Yann Jackson MD at [place] [facility] [place] N/A: Head [employer] 12/16/2028 [id number] / / [id number] Stent Vasc Hep 8mmx7.7a078qh - [id number] Implanted:Qty : 1 on 04/16/2024 by Samson Dennis MD at [place] [facility] [place] Left: Iliac [employer] [id number] 12/29/2026 [id number] / [id number] documented as of this encounter Visit Diagnoses Diagnosis Healing wound- Primary Carotid-cavernous fistula Arteriovenous fistula, acquired Age-related osteoporosis without current pathological fracture Senile osteoporosis documented in this encounter Advance Directives * [...] Discussed due to patient's condition Care Teams Mess Attendant Crew Relationship Specialty Start Date End Date Bharati Wang MD [address] [place] [address] [place] [phone] PCP - General Family Medicine 10/02/21 documented as of this encounter
--- OUTSIDE RECORDS SUMMARY | 2024-07-03 23:00 | External Medical Summary | Summary of Care ---
Author Name Unknown Organization [facility] Address [address] [place] [address] Phone [phone] Care Team Providers Care Venetian Blind Machine Operator Name Role Phone Bharati Wang MD Primary Care Provide r Reason for Visit * Reason Onset Date Comments Advice 05/11/2024 Encounter Details Date Type Department Care Team (Late st Contact Info) Description 05/11/2024 Telephone Family Medicine [address] [phone] Bharati Wang MD [address] [place] [address] [place] [address] Advice Allergies Active Allergy [...] fracture of humerus 08/07/2019 01/22/2024 Overview (08/10/2019): [facility] Bilateral sciatica 06/01/2019 4 Spasm of [...] 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 Date Job End 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 Not on [...] PM EST Office Visit Family Medicine [address] [place] [address] Bharati Wang MD [address] [place] [address] [place] [address] 05/29/2024 8:00 AM EST Imaging Radiology [address], [address] [place] [address] 06/01/2024 12:00 PM EST Appointment Vascular Lab [address] [address] 06/01/2024 12:30 PM EST Appointment Vascular Lab [address] [address] 06/01/2024 1:20 PM EST Office Visit Vascular Surg [address] [address] Samson Dennis MD [facility] [place] [address] 06/05/2024 1:20 PM EST Office Visit Family Medicine [address] [place] [phone] [place] [address] 09/10/2024 11:30 AM EDT Office Visit Neurosurgery, [place] [address] [place], [place] [id number] Yann Jackson MD [address] [place] [address] Scheduled Procedures Name Priority Associated [...] this encounter Medical Devices Implanted Type Area Facility Practice Specialist Device Identifier Shelf Expiration Date Model / Serial / Lot Coil Target 3d 9qba6pa - [id number] Implanted:Qty : 1 on 04/15/2024 by Yann Jackson [place] [facility] [place] Head ANNAMARIA : NEUROVASCULAR [id number] 12/16/2024 [id number] 60 / / [id number] 6cm, Coil Swiftpac Implanted:Qty : 1 on 04/15/2024 by Yann Jackson MD [place] [facility] [place]: Head [employer] 12/16/2028 [id number] / / [id number] 45cm, Coil Swiftpac Implanted:Qty : 1 on 04/15/2024 by Yann Jackson MD [place] [facility] [place]: Head [employer] 12/16/2028 [id number] / / [id number] 60cm, Coil Swiftpac Implanted:Qty : 1 on 04/15/2024 by Yann Jackson MD [place] [facility] [place]: Head [employer] 11/02/2028 [id number] / / [id number] Coil Target 3d 0yer2wd - [id number] Implanted:Qty : 1 on 04/15/2024 by Yann Jackson MD [place] [facility] [place]: Head ANNAMARIA : NEUROVASCULAR [id number] 12/24/2024 [id number] 60 / / [id number] Coil Target 360 Soft 2xzb55dq - [id number] Implanted:Qty : 1 on 04/15/2024 by Yann Jackson MD [place] [facility] [place]: Head ANNAMARIA : NEUROVASCULAR [id number] 06/23/2025 [id number] 00 / / [id number] Coil Target 360 Ultra 5wmk73wd - [id number] Implanted:Qty : 1 on 04/15/2024 by Yann Jackson MD [place] [facility] [place]: Head ANNAMARIA : NEUROVASCULAR [id number] 05/04/2026 [id number] 00 / / [id number] Coil Target 360 Ultra 0ykm1ac - [id number] Implanted:Qty : 1 on 04/15/2024 by Yann Jackson MD at [place] [facility] [place]: Head ANNAMARIA : NEUROVASCULAR [id number] 02/03/2025 [id number] 80 / / [id number] 10cm, Coil Swiftpac Implanted:Qty : 2 on 04/15/2024 by Yann Jackson MD [place] [facility] [place]: Head [employer] 12/24/2028 [id number] / / [id number] 30cm, Coil Swiftpac Implanted:Qty : 1 on 04/15/2024 by Yann Jackson MD [place] [facility] [place]/A: Head [employer] 12/24/2028 [id number] / / [id number] 60cm, Coil Swiftpac Implanted:Qty : 1 on 04/15/2024 by Yann Jackson MD at [place] [facility] [place]/A: Head [employer] 11/02/2028 [id number] / / [id number] 6cm, Coil Swiftpac Implanted:Qty : 1 on 04/15/2024 by Yann Jackson MD at [place] [facility] [place]/A: Head [employer] 12/16/2028 [id number] / / [id number] Stent Vasc Hep 8mmx7.1d171ac - [id number] Implanted:Qty : 1 on 04/16/2024 by Samson Dennis MD [place] [facility] [place] Left: Iliac [employer] [id number] 12/29/2026 [id number] / [id number] / [id number] documented as of this encounter Advance Directives [...] Discussed due to patient's condition Care Teams Venetian Blind Machine Operator Relationship Specialty Start Date End Date Bharati Wang MD [address] [place] [address] [place] [phone] PCP - General Family Medicine 10/02/21 documented as of this encounter
--- OUTSIDE RECORDS SUMMARY | 2024-07-03 23:00 | External Medical Summary | Summary of Care ---
Author Name Unknown Organization [facility] Address [address] [place] [address] Phone [phone] Care Team Providers Care Flight Reservations Manager Name Role Phone Bharati Wang MD Primary Care Provide r Reason for Visit * Reason Onset Date Comments Advice 05/08/2024 Encounter Details Date Type Department Care Team (Late st Contact Info) Description 05/08/2024 Telephone Family Medicine [address] [phone] Bharati Wang MD [address] [place] [address] [place] [address] Advice Allergies Active Allergy [...] fracture of humerus 08/07/2019 01/22/2024 Overview (08/10/2019): [facility] Bilateral sciatica 06/01/2019 4 Spasm of [...] Job Start Date 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 [address] [facility] [place] [address] 06/01/2024 12:00 PM EST Appointment Vascular Lab [facility], [address] [address] 06/01/2024 12:30 PM EST Appointment Vascular Lab [facility], [address] [address] 06/01/2024 1:20 PM EST Office Visit Vascular Surg [facility] [place] [address] [place] [address] Samson Dennis MD [address] [place], [place] [phone] 06/05/2024 1:20 PM EST Office Visit [address] [place] [phone] Latha Shah[address] [place] [address] 09/10/2024 11:30 AM EDT Office Visit Neurosurgery, [place] [address] [place] [address] Yann Jackson MD [address] [place] [address] Scheduled Procedures Name Priority Associated [...] Screening 04/20/2025 04/20/2024 DXA Scan 04/06/2026 04/06/2016, 110 09/2012, 02/08/2011, Additional history exists Albumin/Creatinine Ratio [...] this encounter Medical Devices Implanted Type Area Epic Ambulatory [employer]sts Device Identifier Shelf Expiration Date Model / Serial / Lot Coil Target 3d 2hhd2hc - [id number] Implanted:Qty : 1 on 04/15/2024 by Yann Jackson MD [place] [facility] [place]: Head ANNAMARIA : NEUROVASCULAR [id number] 12/16/2024 [id number] 60 / / [id number] 6cm, Coil Swiftpac Implanted:Qty : 1 on 04/15/2024 by Yann Jackson MD [place] [facility] [place]: Head [employer] 12/16/2028 [id number] / / [id number] 45cm, Coil Swiftpac Implanted:Qty : 1 on 04/15/2024 by Yann Jackson MD [place] [facility] [place]/A: Head [employer] 12/16/2028 [id number] / / [id number] 60cm, Coil Swiftpac Implanted:Qty : 1 on 04/15/2024 by Yann Jackson MD [place] [facility] [place]/A: Head [employer] 11/02/2028 [id number] / / [id number] Coil Target 3d 6ehi4fc - [id number] Implanted:Qty : 1 on 04/15/2024 by Yann Jackson MD [place] [facility] [place]: Head ANNAMARIA : NEUROVASCULAR [id number] 12/24/2024 [id number] 60 / / [id number] Coil Target 360 Soft 3usc81lv - [id number] Implanted:Qty : 1 on 04/15/2024 by Yann Jackson MD [place] [facility] [place]: Head ANNAMARIA : NEUROVASCULAR [id number] 06/23/2025 [id number] 00 / / [id number] Coil Target 360 Ultra 8keb25pb - [id number] Implanted:Qty : 1 on 04/15/2024 by Yann Jackson MD [place] [facility] [place]: Head ANNAMARIA : NEUROVASCULAR [id number] 05/04/2026 [id number] 00 / / [id number] Coil Target 360 Ultra 1iyf6bq - [id number] Implanted:Qty : 1 on 04/15/2024 by Yann Jackson MD [place] [facility] [place]/A: Head ANNAMARIA : NEUROVASCULAR [id number] 02/03/2025 [id number] 80 / / [id number] 10cm, Coil Swiftpac Implanted:Qty : 2 on 04/15/2024 by Yann Jackson MD [place] [facility] [place]/A: Head [employer] 12/24/2028 [id number] / / [id number] 30cm, Coil Swiftpac Implanted:Qty : 1 on 04/15/2024 by Yann Jackson MD [place] [facility] [place]/A: Head [employer] 12/24/2028 [id number] / / [id number] 60cm, Coil Swiftpac Implanted:Qty : 1 on 04/15/2024 by Yann Jackson MD [place] [facility] [place]/A: Head [employer] 11/02/2028 [id number] / / [id number] 6cm, Coil Swiftpac Implanted:Qty : 1 on 04/15/2024 by Yann Jackson MD [place] [facility] [place]/A: Head [employer] 12/16/2028 [id number] / / [id number] Stent Vasc Hep 8mmx7.0r068ei - [id number] Implanted:Qty : 1 on 04/16/2024 by Samson Dennis MD [place] [facility] [place] Left: [facility] [employer] AND [facility] [id number] 12/29/2026 [id number] / [id number] / [id number] documented as of this encounter Advance Directives [...] Discussed due to patient's condition Care Teams Flight Reservations Manager Relationship Specialty Start Date End Date Bharati Wang MD [address] [place] [address] [place] [phone] PCP - General Family Medicine 10/02/21 documented as of this encounter
--- OUTSIDE RECORDS SUMMARY | 2024-07-03 23:01 | External Medical Summary | Summary of Care ---
Author Name Unknown Organization [facility] Address [address] [place] [address] Phone [phone] Care Team Providers Care Water Project Manager Name Role Phone Bharati Wang MD Primary Care Provide r Reason for Visit * Reason Onset Date Comments Encounter Created in Error 05/14/2024 Encounter Details Date Type Department Care Team (Late st Contact Info) Description 05/14/2024 Telephone Rad[address] [address] Abby Kang, RT (R) Encounter Created in Error Allergies Active Allergy Reactions Criticality Noted Date Comments Ampicillin 09/23/2003 Hives/trouble breathing Azithromycin 09/24/2003 hives and angioedema Ranitidine 10/29/2002 rash documented as of this encounter (statuses as of 05/14/2024) Medications VITAMIN D 2000 UNITS PO CAPS Take 2,000 Units by mouth daily with dinner. 08/24/[address] ARTHRITIS PAIN 500 MG PO TABS Take by mouth. Active Cyanocobalamin 1000 MCG Oral Tablet Take 1 Tablet by mouth daily at noon. 10/31/2017 Active Loratadine 10 MG Oral Tablet (Claritin)Indica [...] EVERY DAY 90 Tablet 3 04/13/2024 Active Apixaban 5 MG Oral Tablet (Eliquis) Take 2 Tablets by mouth 2 times a day for 7 days, THEN 1 Tablet 2 times a day. 90 Tablet 1 04/18/2024 12:53 PM EST 04/18/2024 05/25/20 Active Clopidogrel Bisulfate 75 MG Oral Tablet (pLAVix) Take 1 Tablet by mouth in the morning. 30 Tablet 5 04/18/2024 12:53 PM EST 04/19/2024 Active Vitron-C 65-125 MG Oral Tablet (Iron-Vitamin C 65-125 mg per tab)Indications: Anemia, unspecified type Take 1 Tablet by mouth in the morning. 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 file Not on file Not on file documented as of this encounter Plan of Treatment Upcoming Encounters Date Type Department Care Team (Late st Contact Info) Description 05/25/2024 12:00 PM EST Office Visit Family [address] [phone] Bharati Wang MD [address] [place] [address] [place] [address] 05/29/2024 8:00 AM EST Imaging Radiology [facility]st [facility] [place] [address] [place] [address] 06/01/2024 12:00 PM EST Appointment Vascular Lab [address] [address] 06/01/2024 12:30 PM EST Appointment Vascular Lab [place] [address] [place] [address] 06/01/2024 1:20 PM EST Office Visit Vascular Surg [place] [address] [place] [address] Samson Dennis MD [address] [place] [address] 06/05/2024 1:20 PM EST Office Visit Family [address] [phone] Latha Shah CRNP [address] [place] [address] [place] [address] 09/10/2024 11:30 AM EDT Office Visit [facility] [place] [address] [place] [address] Yann Jackson MD [address] [place] [address] Scheduled Procedures Name Priority Associated [...] this encounter Medical Devices Implanted Type Area [employer] Device Identifier Shelf Expiration Date Model / Serial / Lot Coil Target 3d 7fzu8xj - [id number] Implanted:Qty : 1 on 04/15/2024 by Yann Jackson MD [place] [facility] [place]: Head ANNAMARIA : NEUROVASCULAR [id number] 12/16/2024 [id number] 60 / / [id number] 6cm, Coil Swiftpac Implanted:Qty : 1 on 04/15/2024 by Yann Jackson MD at [place] [facility] [place]/A: Head [employer] 12/16/2028 [id number] / / [id number] 45cm, Coil Swiftpac Implanted:Qty : 1 on 04/15/2024 by Yann Jackson MD at [place] [facility] [place]/A: Head [employer] 12/16/2028 [id number] / / [id number] 60cm, Coil Swiftpac Implanted:Qty : 1 on 04/15/2024 by Yann Jackson MD at [place] [facility] [place]/A: Head [employer] 11/02/2028 [id number] / / [id number] Coil Target 3d 7mcc3ym - [id number] Implanted:Qty : 1 on 04/15/2024 by Yann Jackson MD at [place] [facility] [place]/A: Head ANNAMARIA : NEUROVASCULAR [id number] 12/24/2024 [id number] 60 / / [id number] Coil Target 360 Soft 5mjd40ot - [id number] Implanted:Qty : 1 on 04/15/2024 by Yann Jackson MD at [place] [facility] [place]/A: Head ANNAMARIA : NEUROVASCULAR [id number] 06/23/2025 [id number] 00 / / [id number] Coil Target 360 Ultra 4dvs77px - [id number] Implanted:Qty : 1 on 04/15/2024 by Yann Jackson MD at [place] [facility] [place]/A: Head ANNAMARIA : NEUROVASCULAR [id number] 05/04/2026 [id number] 00 / / [id number] Coil Target 360 Ultra 4yvk7qb - [id number] Implanted:Qty : 1 on 04/15/2024 by Yann Jackson MD at [place] [facility] [place]/A: Head ANNAMARIA : NEUROVASCULAR [id number] 02/03/2025 [id number] 80 / / [id number] 10cm, Coil Swiftpac Implanted:Qty : 2 on 04/15/2024 by Yann Jackson MD at [place] [facility] [place] N/A: Head [employer] 12/24/2028 [id number] / / [id number] 30cm, Coil Swiftpac Implanted:Qty : 1 on 04/15/2024 by Yann Jackson MD at [place] [facility] [place] N/A: Head [employer] 12/24/2028 [id number] / / [id number] 60cm, Coil Swiftpac Implanted:Qty : 1 on 04/15/2024 by Yann Jackson MD at [place] [facility] [place] N/A: Head [employer] 11/02/2028 [id number] / / [id number] 6cm, Coil Swiftpac Implanted:Qty : 1 on 04/15/2024 by Yann Jackson MD at [place] [facility] [place] N/A: Head [employer] 12/16/2028 [id number] / / [id number] Stent Vasc Hep 8mmx7.6h840dq - [id number] Implanted:Qty : 1 on 04/16/2024 by Samson Dennis MD at [place] [facility] [place] Left: Iliac [employer] [id number] 12/29/2026 [id number] / [id number] / [id number] documented as of this encounter Advance Directives [...] Discussed due to patient's condition Care Teams Water Project Manager Relationship Specialty Start Date End Date Bharati Wang MD [address] [place] [address] [place] [address] PCP - General Family Medicine 10/02/21 documented as of this encounter
--- OUTSIDE RECORDS SUMMARY | 2024-07-03 23:01 | External Medical Summary | Summary of Care ---
Author Name Unknown Organization [facility] Address [address] [place] [address] Phone [phone] Care Team Providers Care Recycling Program Manager Name Role Phone Bharati Wang MD Primary Care Provide r Reason for Visit * Reason Comments Return Neuro Encounter Details Date Type Department Care Team (Late st Contact Info) Description 05/11/2024 1:00 PM EST Office Visit Neurosurgery, [place] [address] [place] [address] Yann Jackson MD [address] [place] [address] Carotid-cavernous fistula* Allergies Active Allergy Reactions Criticality Noted Date [...] fracture of humerus 08/07/2019 01/22/2024 Overview (08/10/2019): [facility] Bilateral sciatica 06/01/2019 4 Spasm of [...] 57.6 S tarted: 1965 Smokeless Tobacco: Never Tobacco Cessation:Counseling Given: Not Answered Alcohol Use Standard Drinks/Week Comments No 0 [...] Start Date Job 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 Not on file Not on file Not on file documented as of this encounter Last Filed Vital Signs Vital Sign Reading Time Taken Comments Blood Pressure 132/92 05/11/2024 12:51 PM EST Pulse - - Temperature 35.9 C (96.6 F) 05/11/2024 12:[address] Respiratory Rate - - Oxygen Saturation - - Inhaled Oxygen Concentration - - Weight 73.5 kg (162 lb) 05/11/2024 12:51 PM EST Height 162.6 cm (5' 4") 05/11/2024 12:51 PM EST Body Mass Index 27.81 05/11/2024 12:51 PM EST documented in this encounter Progress Notes * Tamica Cheng PA-C - 05/11/2024 1:00 PM EST Neurosurgery - Clinic Note [facility], [place], [place] Presenting Problem: follow up for recent cavernous sinus fistula s/p coil embolization Subjective: Josefa Ramírez is a 88 year old female with a PMH of COPD, HTN, dyslipidemia and IBS who initially presented to neurosurgery clinic for 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 This was found during workup for left eye pain and redness. She underwent diagnostic cerebral angiogram with Dr. Jackson on 03/27/2024. She then underwent endovascular treatment of L CCF with coils via transvenous approach with Dr. Jackson 04/15/24. Post procedure patient developed left lower extremity acute limb ischemia, she underwent abdominal aortogram, left lower extremity angiography, and open left iliac catheter thromboembolectomy via groin incision, and left external iliac artery stent grafting of dissection flap on 04/16/24 with vascular surgery. Patient presents to the clinic today for follow up. Patient states she her left eye swelling is improving, she is starting to be able to open the left eye slightly. She is still experiencing double vision. She denies any facial numbness. She does not have any difficulty hearing. No problems with eating or drinking. Review of Systems All others negative other than those listed in HPI Past Medical History: Diagnosis Date ACUTE PEPTIC [...] of humerus, left, closed, initial encounter 08/07/2019 [facility] HTN, goal below 130/80 04/19/2009 Hypercalcemia 09/2008 [...] ARTERY performed by Samson Dennis MDat [place] [facility] BLEPHAROPTOSIS, FRONTALIS, REPAIR Bilateral 08/10/2015 CAROTID (INTERNAL) ARTERY CATHETHER PLACEMENT Bilateral 03/27/2024 CATHETER PLACEMENT INTERNAL CAROTID ARTERY RADIAL ACCESS performed by Yann Jackson MD at [place] [facility] CAROTID (INTERNAL) ARTERY CATHETHER PLACEMENT Bilateral 04/15/2024 CATHETER PLACEMENT INTERNAL CAROTID ARTERY performed by Yann Jackson MD at OR [facility] CAROTID (EXTERNAL) ARTERY CATHETHER PLACEMENT Bilateral 03/27/2024 CATHETER PLACEMENT EXTERNAL CAROTID ARTERY performed by Yann Jackson MD at OR [facility] CAROTID (EXTERNAL) ARTERY CATHETHER PLACEMENT Bilateral 04/15/2024 CATHETER PLACEMENT EXTERNAL CAROTID ARTERY performed by Yann Jackson MD at OR [facility] CATHETER OCCLUSION/EMBOLIZATION,FRONT DESK SUPERVISOR N/A 04/15/2024 TRANSCATHETER PERMANENT ARTERIAL OCCLUSION CENTRAL NERVOUS SYSTEM performed by Yann Jackson MD at [place] [facility] CERVICAL LAMINOPLAST W/DECOMP,RECON 06/17/2006 Dr. Potts COLONOSCOPY, DIAGNOSTIC (RECTUM) 03/08/2015 adenomatous polyps, repeat 5 yrs/COLONOSCOPY FLEXIBLE PROXIMAL DIAGNOSTIC performed by Rene Elise MD at ENDOSCOPY [facility] COLONOSCOPY, DIAGNOSTIC (RECTUM) 07/27/2020 benign adenomatous polyps / COLONOSCOPY FLEXIBLE PROXIMAL DIAGNOSTIC performed by Rene Elise MD at ENDOSCOPY [facility] COLONOSCOPY, GI REFERRAL OP 01/16/2005 Dr. Mcneil - diverticulosis CT SINUSES W WO CONTRAST 06/06/2006 air fluid levels in bilateral maxillary and sphenoid sinuses, frontal sinus opacified, mucosal thickening of ethmoids, left osteomeatal complex opacified, left nasal septal deviation EGD, FLEXIBLE, DIAGNOSTIC 11/14/2020 Barretts, hiatal hernia, repeat 6 mo / ESOPHAGOGASTRODUODENOSCOPY (EGD), FLEXIBLE, TRANSORAL, DIAGNOSTIC performed by Santi Edwards MD at ENDOSCOPY [facility] EGD, FLEXIBLE, DIAGNOSTIC 08/29/2021 Barretts, hiatal hernia, repeat 2 yrs / ESOPHAGOGASTRODUODENOSCOPY (EGD), FLEXIBLE, TRANSORAL, DIAGNOSTIC performed by Santi Edwards MD at ENDOSCOPY [facility] EGD, FLEXIBLE, DIAGNOSTIC 09/30/2020 Bleeding esophagitis with underlying Contreras's esophagus, repeat 6 wks / INPT [facility] EGD, FLEXIBLE, W/BIOPSY 08/16/2006 path-no abnormalities FULL PULMONARY FUNCTION TEST 05/2000 HEMORRHOIDECTOMY, SIMPLE, 1 COLUMN Remote past ILIAC ART. REVASC W/ STENT+ANGIOPLASTY 04/16/2024 ILIAC ARTERY REVASC W/ STENT+ANGIOPLASTY performed by Samson Dennis MD at OR [facility] INTRACRANIAL ARTERIES CATH PLACEMENT Bilateral 04/15/2024 CATHETER PLACEMENT EACH INTRACRANIAL BRANCH OF THE INTERNAL CAROTID OR VERTEBRAL ARTERIES performedby Yann Jackson MD at OR [facility] IR ARTERIOGRAM EXTREMITY UNILATERAL 04/16/2024 IMAGING SUPERVISION & INTERPRETATION EXTREMITY UNILATERAL performed by Samson Dennis MD at [facility] L-/S-SPINE PARAVERTEBRAL FACET INJ,1 LEVEL 02/09/2019 L-/S-SPINE PARAVERTEBRAL FACET INJ, 1 LEVEL performed by [facility] DO Federico at [facility] L-/S-SPINE PARAVERTEBRL FACET INJ,2 LEVELS 02/09/2019 L-/S-SPINE PARAVERTEBRAL FACET INJ, 2 LEVELS performed by [facility] DO Federico at [facility] LUMBAR DISC ARTHROPLAST,REMV,ADDL INTERSPCE 01/2010 Dr Potts LUMBAR SPINE FUSION W/BONE GRAFT 02/23/2005 Dr. Potts - [facility] LUMBAR SPINE FUSION W/BONE GRAFT 07/19/2016 Dr. Potts - [facility] MAMMOGRAM SCREENING-BILATERAL 02/1999 REMOVAL OF OVARY/OVIDUCT(S) 18 yo right REMOVE CATARACT, INSERT LENS PROSTH 12/2004 bilateral - [facility] REMOVE GALLBLADDER REVERSE TOTAL SHOULDER ARTHROPLASTY Left 09/29/2020 [facility] [place] SACROILIAC JOINT INJECT W/GUIDANCE 11/13/2018 INJECTION SACROILIAC JOINT performed by Latimer Dioni Caballero DO at OR [facility] SACROILIAC JOINT INJECT W/GUIDANCE 12/11/2018 INJECTION SACROILIAC JOINT performed by Latimer Dioni Caballero DO at [facility] SHOULDER ARTHROSCOPY/SURGERY 06/07/2010 [facility] - [facility]- right shoulder repair SPINAL FUSION, LUMBAR, COMBINED 07/19/2016 Dr. Potts- [facility] TOTAL ABD HYSTERECTOMY W/WO REMOVAL OF TUBE(S) 26 yo one ovary still in VERTEBRAL ARTERY CATHETER PLACEMENT Bilateral 03/27/2024 CATHETER PLACEMENT VERTEBRAL ARTERY, performed by Yann Jackson MD at [facility] VERTEBRAL ARTERY CATHETER PLACEMENT Bilateral 04/15/2024 CATHETER PLACEMENT VERTEBRAL ARTERY, performed by Yann Jackson MD at [facility] Social History Socioeconomic History Marital status: Spouse name: Not on file Number of children: 4 Years of education: Not on file Highest education level: Not on file Occupational History 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 Tobacco Use Smoking status: Former Current packs/day: 1.00 Average packs/day: 1 pack/day for 57.6 years (57.6 ttl pk-yrs) Types: Cigarettes Start date: 1965 Smokeless tobacco: Never Vaping Use Vaping status: Not on file [...] Stability Do you currently live in a mcc or have no steady place to sleep [...] - for ages0-17 years): Not on file Objective: BP 132/92 (BP Site: Right Arm, BP Position: Sitting, BP Cuff Size: Regular) | Temp 35.9 C (96.6 F) (Tympanic) | Ht 1.626 m (5' 4") | Wt 73.5 kg (162 lb) | BMI 27.81 kg/m | BSA 1.82 m Gen: Well nourished, well developed, NAD Ext: Warm, dry and intact Psych: Pleasant and cooperative, normal mood and affect Neuro: AAO to person, place, month, and year No aphasia or dysarthria Diplopia of left eye Ptosis of left eye No convergence of left eye Restricted inward and upward gaze of left eye Intact facial sensation to light touch in all 3 distributions No facial assymetry Hearing grossly intact Alysa spontaneously and to command 5/5 motor strength in b/l UE and LE Assessment: This is a 88 year old, female with a PMH of COPD, HTN, dyslipidemia and IBS 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 She was admitted to [facility] 05/22/24 for concerns for retroperitoneal hematoma in setting of recent vascular surgery and associated hypotension. She presents today for follow up. Her left eye is improving, swelling has improved and she is able to open it slightly. She is still experiencing double vision. Imaging: No new imaging. Plan: All questions and concerns addressed Imaging reviewed Return to clinic in 4 months, DCA will be scheduled at that time Discussed alternating eye patching with patient, follow up with ophthalmology If eye does not improve in 6 months, she is to follow up with optometry for fitted eye glasses Dicussed rehab possibilities, she does not wish to pursue at this time Encouraged to call with any questions or concerns Patient examined with Dr. Jackson today in clinic I spent a total of 40 minutes on the date of service in preparation, delivery, and documentation ofthe care provided to Josefa Ramírez excluding any time spent in the performance of separatelybilled services. Tamica Cheng PA-C 05/11/2024 8:53 AM Attending attestation: I have reviewed the advanced practitioner's documentation on the date of service referenced in note, and I agree with, and take responsibility for the plan of care. 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 She underwent transvenous treatment on 04/15/24. 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 We discussed that this should continue to improve over time. We will plan to see her back prior to a six- month angiogram to follow-up her treatment result. She knows to call in the interval should she have any new issues that arise. documented in this encounter Plan of Treatment Upcoming Encounters Date Type Department Care Team (Late st Contact Info) Description 05/25/2024 12:00 PM EST Office Visit Family [address] [phone] Bharati Wang MD [address] [place] [address] [place] [address] 05/29/2024 8:00 AM EST Imaging Radiology [address], [place] [address] [place] [address] 06/01/2024 12:00 PM EST Appointment Vascular Lab [address] [address] 06/01/2024 12:30 PM EST Appointment Vascular Lab [address] [address] 06/01/2024 1:20 PM EST Office Visit Vascular Surg [address] [address] Samson Dennis MD [facility] [place] [address] 06/05/2024 1:20 PM EST Office Visit [address] [phone] Latha Shah CRNP [address] [place] [address] [place] [address] 09/10/2024 11:30 AM EDT Office Visit Neurosurgery[address] [address] Yann Jackson MD [facility] [place] [id number] Scheduled Procedures Name Priority Associated Diagnoses Date/Ti [...] this encounter Medical Devices Implanted Type Area Bmw Service Technician Device Identifier Shelf Expiration Date Model / Serial / Lot Coil Target 3d [id number] - [id number] Implanted:Qty : 1 on 04/15/2024 by Yann Jackson MD at OR [facility] N/A: Head ANNAMARIA : NEUROVASCULAR [id number] 12/16/2024 [id number] / / [id number] 6cm, Coil Swiftpac Implanted:Qty : 1 on 04/15/2024 by Yann Jackson MD at OR [facility] N/A: Head [employer] 12/16/2028 [id number] / / [id number] 45cm, Coil Swiftpac Implanted:Qty : 1 on 04/15/2024 by Yann Jackson MD at OR [facility] N/A: Head [employer] 12/16/2028 [id number] / / [id number] 60cm, Coil Swiftpac Implanted:Qty : 1 on 04/15/2024 by Yann Jackson MD at OR [facility] N/A: Head [employer] 11/02/2028 [id number] / / [id number] Coil Target 3d [id number] - [id number] Implanted:Qty : 1 on 04/15/2024 by Yann Jackson MD at OR [facility] N/A: Head ANNAMARIA : NEUROVASCULAR [id number] 12/24/2024 [id number] 60 / / [id number] Coil Target 360 Soft [id number] - [id number] Implanted:Qty : 1 on 04/15/2024 by Yann Jackson MD at [facility] N/A: Head ANNAMARIA : NEUROVASCULAR [id number] 06/23/2025 [id number] / / [id number] Coil Target 360 Ultra 3lxl37gi - [id number] Implanted:Qty : 1 on 04/15/2024 by Yann Jackson MD at OR [facility] N/A: Head ANNAMARIA : NEUROVASCULAR [id number] 05/04/2026 [id number] 00 / / [id number] Coil Target 360 Ultra 2yul6ch - [id number] Implanted:Qty : 1 on 04/15/2024 by Yann Jackson MD at OR [facility] N/A: Head ANNAMARIA : NEUROVASCULAR [id number] 02/03/2025 [id number] 80 / / [id number] 10cm, Coil Swiftpac Implanted:Qty : 2 on 04/15/2024 by Yann Jackson MD at OR [facility] N/A: Head [employer] 12/24/2028 [id number] / / [id number] 30cm, Coil Swiftpac Implanted:Qty : 1 on 04/15/2024 by Yann Jackson MD at OR [facility] N/A: Head [employer] 12/24/2028 [id number] / / [id number] 60cm, Coil Swiftpac Implanted:Qty : 1 on 04/15/2024 by Yann Jackson MD at OR [facility] N/A: Head [employer] 11/02/2028 [id number] / / [id number] 6cm, Coil Swiftpac Implanted:Qty : 1 on 04/15/2024 by Yann Jackson MD at OR [facility] N/A: Head [employer] 12/16/2028 [id number] / / [id number] Stent Vasc Hep 8mmx7.7v256bv - [id number] Implanted:Qty : 1 on 04/16/2024 by Samson Dennis MD at OR [facility] Left: Iliac [employer] [id number] 12/29/2026 [id number] / [id number] / [id number] documented as of this encounter Visit Diagnoses Diagnosis Carotid-cavernous fistula- Primary Arteriovenous fistula, acquired documented in this encounter Advance Directives * [...] Discussed due to patient's condition Care Teams Recycling Program Manager Relationship Specialty Start Date End Date Bharati Wang MD [address] [place] [address] [place] [address] PCP - General Family Medicine 10/02/21 documented as of this encounter
--- OUTSIDE RECORDS SUMMARY | 2024-07-03 23:01 | External Medical Summary | Summary of Care ---
Author Name Unknown Organization [facility] Address [address] [place] [address] Phone [phone] Care Team Providers Care Engraved Roller Inspector Name Role Phone Bharati Wang MD Primary Care Provide r Reason for Visit * Reason Onset Date Comments Advice 05/08/2024 Encounter Details Date Type Department Care Team (Late st Contact Info) Description 05/08/2024 Telephone Family Medicine [address] [phone] Bharati Wang MD [address] [place] [address] [place] [address] Advice Allergies Active Allergy Reactions Criticality Noted Date Comments Ampicillin 09/23/2003 Hives/trouble breathing Azithromycin 09/24/2003 hives and angioedema Ranitidine 10/29/2002 rash documented as of this encounter (statuses as of 05/11/2024) Medications VITAMIN D 2000 UNITS PO CAPS [...] in the morning. 90 Tablet 04/29/2024 Active Cephalexin 500 MG Oral CapsuleIndicatio ns:Acute cystitis with hematuria Take 1 Capsule by mouth in the morning and 1 Capsule before bedtime. Do all this for 7 days. 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 Not [...] Description 05/25/2024 12:00 PM EST Office Visit [address] [phone] Bharati Wang MD [address] [place] [address] [place] [address] 06/01/2024 12:00 PM EST Appointment Vascular Lab [address] [address] 06/01/2024 12:30 PM EST Appointment Vascular Lab [address] [address] 06/01/2024 1:20 PM EST Office Visit Vascular Surg [address] [address] Samson Dennis MD [facility] [place] [address] 06/05/2024 1:20 PM EST Office Visit [address] [phone] Latha Shah CRNP [address] [place] [address] [place] [address] 09/10/2024 11:30 AM EDT Office Visit Neurosurgery, [place] [address] [place] [address] Yann Jackson MD [address] [place] [address] Scheduled Procedures Name Priority Associated [...] this encounter Medical Devices Implanted Type Area Brush Or Broom Cutter Device Identifier Shelf Expiration Date Model / Serial / Lot Coil Target 3d [id number] - [id number] Implanted:Qty : 1 on 04/15/2024 by Yann Jackson MD [place] [facility] [place]/A: Head ANNAMARIA : NEUROVASCULAR [id number] 12/16/2024 [id number] 60 / / [id number] 6cm, Coil Swiftpac Implanted:Qty : 1 on 04/15/2024 by Yann Jackson MD [place] [facility] N/A: Head [employer] 12/16/2028 [id number] / / [id number] 45cm, Coil Swiftpac Implanted:Qty : 1 on 04/15/2024 by Yann Jackson MD at [place] [facility] N/A: Head [employer] 12/16/2028 [id number] / / [id number] 60cm, Coil Swiftpac Implanted:Qty : 1 on 04/15/2024 by Yann Jackson MD at [place] [facility] N/A: Head [employer] 11/02/2028 [id number] / / [id number] Coil Target 3d [id number] - [id number] Implanted:Qty : 1 on 04/15/2024 by Yann Jackson MD at [place] [facility] N/A: Head ANNAMARIA : NEUROVASCULAR [id number] 12/24/2024 [id number] 60 / / [id number] Coil Target 360 Soft [id number] - [id number] Implanted:Qty : 1 on 04/15/2024 by Yann Jackson MD [place] [facility] N/A: Head ANNAMARIA : NEUROVASCULAR [id number] 06/23/2025 [id number] 00 / / [id number] Coil Target 360 Ultra 5gzw57hu - [id number] Implanted:Qty : 1 on 04/15/2024 by Yann Jackson MD at [place] [facility] N/A: Head ANNAMARIA : NEUROVASCULAR [id number] 05/04/2026 [id number] 00 / / [id number] Coil Target 360 Ultra [id number] - [id number] Implanted:Qty : 1 on 04/15/2024 by Yann Jackson MD at [place] [facility] N/A: Head ANNAMARIA : NEUROVASCULAR [id number] 02/03/2025 [id number] 80 / / [id number] 10cm, Coil Swiftpac Implanted:Qty : 2 on 04/15/2024 by Yann Jackson MD at [place] [facility] N/A: Head [employer] 12/24/2028 [id number] / / [id number] 30cm, Coil Swiftpac Implanted:Qty : 1 on 04/15/2024 by Yann Jackson MD at [place] [facility] N/A: Head [employer] 12/24/2028 [id number] / / [id number] 60cm, Coil Swiftpac Implanted:Qty : 1 on 04/15/2024 by Yann Jackson MD at [place] [facility] N/A: Head [employer] 11/02/2028 [id number] / / [id number] 6cm, Coil [employer] Implanted:Qty : 1 on 04/15/2024 by Yann Jackson MD at [place] [facility] N/A: Head [employer] 12/16/2028 [id number] / / [id number] Stent Vasc Hep 8mmx7.3w774if - [id number] Implanted:Qty : 1 on 04/16/2024 by Samson Dennis MD at [place] [facility] Left: Iliac [employer] [id number] 12/29/2026 [id number] / [id number] / [id number] documented as of this encounter Advance Directives [...] Discussed due to patient's condition Care Teams Engraved Roller Inspector Relationship Specialty Start Date End Date Bharati Wang MD [address] [place] [address] SAHIL Ballard [phone] PCP - General Family Medicine 10/02/21 documented as of this encounter
--- OUTSIDE RECORDS SUMMARY | 2024-07-03 23:01 | External Medical Summary | Summary of Care ---
Author Name Unknown Organization [facility] Address [address] [place] [address] Phone [phone] Care Team Providers Care Wooden Fence Erector Name Role Phone Bharati Wang MD Primary Care Provide r Reason for Visit * Reason Onset Date Comments Advice 05/11/2024 Encounter Details Date Type Department Care Team (Late st Contact Info) Description 05/11/2024 Telephone Family Medicine [address] [phone] Bharati Wang MD [address] [place] [address] [place] [address] Advice Allergies Active Allergy [...] fracture of humerus 08/07/2019 01/22/2024 Overview (08/10/2019): [place] Bilateral sciatica 06/01/2019 4 Spasm of [...] 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 Patient states she thinks she still does [...] Description 05/25/2024 12:00 PM EST Office Visit [address] [place] [address] Bharati Wang MD [address] [place] [address] [place] [address] 05/29/2024 8:00 AM EST Imaging Radiology [facility] [address] [facility], [address] [address] 06/01/2024 12:00 PM EST Appointment Vascular Lab [address] [address] 06/01/2024 12:30 PM EST Appointment Vascular Lab [place] [address] [place] [address] 06/01/2024 1:20 PM EST Office Visit Vascular Surg [address] [address] Samson Dennis MD [facility] [place] [address] 06/05/2024 1:20 PM EST Office Visit Family Medicine [address] [place] [phone] [address] [place] [address] 09/10/2024 11:30 AM EDT Office Visit [facility] [place] [address] [place], [place] [id number] Yann Jackson MD [address] [place] [address] Scheduled Procedures Name Priority Associated [...] this encounter Medical Devices Implanted Type Area Rigging Up Worker Device Identifier Shelf Expiration Date Model / Serial / Lot Coil Target 3d 6gsk1pw - [id number] Implanted:Qty : 1 on 04/15/2024 by Yann Jackson [place] [facility] [place] Head ANNAMARIA : NEUROVASCULAR [id number] 12/16/2024 [id number] / / [id number] 6cm, Coil Swiftpac Implanted:Qty : 1 on 04/15/2024 by Yann Jackson MD [place] [facility] [place]: Head [employer] 12/16/2028 [id number] / / [id number] 45cm, Coil Swiftpac Implanted:Qty : 1 on 04/15/2024 by Yann Jackson MD [place] [facility] [place]: Head [employer] 12/16/2028 [id number] / / [id number] 60cm, Coil Swiftpac Implanted:Qty : 1 on 04/15/2024 by Yann Jackson MD [place] [facility] [place]: Head [employer] 11/02/2028 [id number] / / [id number] Coil Target 3d 8kxv4kh - [id number] Implanted:Qty : 1 on 04/15/2024 by Yann Jackson MD [place] [facility] [place]: Head ANNAMARIA : NEUROVASCULAR [id number] 12/24/2024 [id number] 60 / / [id number] Coil Target 360 Soft 3qgd16ql - [id number] Implanted:Qty : 1 on 04/15/2024 by Yann Jackson MD [place] [facility] [place]: Head ANNAMARIA : NEUROVASCULAR [id number] 06/23/2025 [id number] / / [id number] Coil Target 360 Ultra 4tgz43rg - [id number] Implanted:Qty : 1 on 04/15/2024 by Yann Jackson MD [place] [facility] [place]: Head ANNAMARIA : NEUROVASCULAR [id number] 05/04/2026 [id number] 00 / / [id number] Coil Target 360 Ultra 4ttq5cx - [id number] Implanted:Qty : 1 on 04/15/2024 by Yann Jackson MD [place] [facility] [place]: Head ANNAMARIA : NEUROVASCULAR [id number] 02/03/2025 [id number] 80 / / [id number] 10cm, Coil Swiftpac Implanted:Qty : 2 on 04/15/2024 by Yann Jackson MD [place] [facility] [place]A: Head [employer] 12/24/2028 [id number] / / [id number] 30cm, Coil Swiftpac Implanted:Qty : 1 on 04/15/2024 by Yann Jackson MD [place] [facility] [place]: Head [employer] 12/24/2028 [id number] / / [id number] 60cm, Coil Swiftpac Implanted:Qty : 1 on 04/15/2024 by Yann Jackson MD [place] [facility] [place]A: Head [employer] 11/02/2028 [id number] / / [id number] 6cm, Coil Swiftpac Implanted:Qty : 1 on 04/15/2024 by Yann Jackson MD [place] [facility] [place]A: Head [employer] 12/16/2028 [id number] / / [id number] Stent Vasc Hep 8mmx7.6i174lo - [id number] Implanted:Qty : 1 on 04/16/2024 by Samson Dennis MD [place] [facility] [place] Left: Iliac [employer] [id number] 12/29/2026 [id number] 2A / [id number] / [id number] documented as of this encounter Advance Directives [...] Discussed due to patient's condition Care Teams Wooden Fence Erector Relationship Specialty Start Date End Date Bharati Wang MD [address] [place] [address] [place] [address] PCP - General Family Medicine 10/02/21 documented as of this encounter
--- OUTSIDE RECORDS SUMMARY | 2024-07-03 23:02 | External Medical Summary | Summary of Care ---
Author Name Unknown Organization [facility] Address [address] [place] [address] Phone [phone] Care Team Providers Care Plating Inspector Name Role Phone Bharati Wang MD Primary Care Provide r Encounter Details Date Type Department Care Team (Late st Contact Info) Description 05/11/2024 Telephone Family [address] [phone] Bharati Wang MD [address] [place] [address] [place] [phone] Allergies Active Allergy Reactions Criticality Noted Date [...] 1 04/18/2024 12:53 PM EST 04/18/2024 05/25/20 24 Active Clopidogrel Bisulfate 75 MG [...] for 7 days. 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 [...] 05/25/2024 12:00 PM EST Office Visit Family [address] [phone] Bharati Wang MD [address] [place] [address] [place] [address] 06/01/2024 12:00 PM EST Appointment Vascular Lab [address] [address] 06/01/2024 12:30 PM EST Appointment Vascular Lab [address] [address] 06/01/2024 1:20 PM EST Office Visit Vascular Surg [place] [address] [place] [address] Samson Dennis MD [facility] [place] [address] 06/05/2024 1:20 PM EST Office Visit [address] [phone] Latha Shah CRNP [address] [place] [address] [place] [address] Scheduled Procedures Name Priority Associated Diagnoses Date/Ti me ESOPHAGOGASTRODUODENOSCOPY ( EGD), FLEXIBLE, TRANSORAL, DIAGNOSTIC Recall Contreras esophagus Health Maintenance Due Date Last Done Comments Alpha-1 Antitrypsin 1953 Adult Wellness Visit 2002 DISCUSS TOBACCO CESSATION (REFER TO SMARTSET #6035) 08/01/2018 08/01/2017 (Discussed) DTap/Tdap Vaccines (2 - Td or Tdap) 06/09/2023 06/09/2013, 01/08/2008 COVID-19 Vaccine (5 - season) 2024 02/27/2022, 03/28/2021, 07/24/2020, Additional [...] this encounter Medical Devices Implanted Type Area Jockey Agent Device Identifier Shelf Expiration Date Model / Serial / Lot Coil Target 3d 0eib3tg - [id number] Implanted:Qty : 1 on 04/15/2024 by Yann Jackson MD at OR [facility] [place] N/A: Head ANNAMARIA : NEUROVASCULAR [id number] 12/16/2024 [id number] 60 / / [id number] 6cm, Coil Swiftpac Implanted:Qty : 1 on 04/15/2024 by Yann Jackson MD at OR [facility] [place] [place] N/A: Head [employer] 12/16/2028 [id number] / / [id number] 45cm, Coil Swiftpac Implanted:Qty : 1 on 04/15/2024 by Yann Jackson MD at OR [facility] [place] [place] N/A: Head [employer] 12/16/2028 [id number] / / [id number] 60cm, Coil Swiftpac Implanted:Qty : 1 on 04/15/2024 by Yann Jackson MD at OR [facility] [place] [place] N/A: Head [employer] 11/02/2028 [id number] / / [id number] Coil Target 3d 8ibt7qk - [id number] Implanted:Qty : 1 on 04/15/2024 by Yann Jackson MD at OR [facility] [place] [place] N/A: Head ANNAMARIA : NEUROVASCULAR [id number] 12/24/2024 [id number] 60 / / [id number] Coil Target 360 Soft 0xad96kp - [id number] Implanted:Qty : 1 on 04/15/2024 by Yann Jackson MD at OR [facility] [place] [place] N/A: Head ANNAMARIA : NEUROVASCULAR [id number] 06/23/2025 [id number] 00 / / [id number] Coil Target 360 Ultra 5msk51jd - [id number] Implanted:Qty : 1 on 04/15/2024 by Yann Jackson MD at OR [facility] [place] [place] N/A: Head ANNAMARIA : NEUROVASCULAR [id number] 05/04/2026 [id number] 00 / / [id number] Coil Target 360 Ultra 8qne7gw - [id number] Implanted:Qty : 1 on 04/15/2024 by Yann Jackson MD at OR [facility] [place] [place] N/A: Head ANNAMARIA : NEUROVASCULAR [id number] 02/03/2025 [id number] 80 / / [id number] 10cm, Coil Swiftpac Implanted:Qty : 2 on 04/15/2024 by Yann Jackson MD at OR [facility] [place] [place] N/A: Head [employer] 12/24/2028 [id number] / / [id number] 30cm, Coil Swiftpac Implanted:Qty : 1 on 04/15/2024 by Yann Jackson MD at OR [facility] [place] [place] N/A: Head [employer] 12/24/2028 [id number] / / [id number] 60cm, Coil Swiftpac Implanted:Qty : 1 on 04/15/2024 by Yann Jackson MD at OR [facility] [place] [place] N/A: Head [employer] 11/02/2028 [id number] / / [id number] 6cm, Coil Swiftpac Implanted:Qty : 1 on 04/15/2024 by Yann Jackson MD at OR [facility] [place] [place] N/A: Head [employer] 12/16/2028 [id number] / / [id number] Stent Vasc Hep 8mmx7.9f170vd - [id number] Implanted:Qty : 1 on 04/16/2024 by Samson Dennis MD at OR [facility] [place] [place] Left: Iliac [employer] [id number] 12/29/2026 [id number] / [id number] / [id number] documented as of this encounter Advance Directives [...] Discussed due to patient's condition Care Teams Plating Inspector Relationship Specialty Start Date End Date Bharati Wang MD NPI: [id number] [place] [address] [place] [address] PCP - General Family Medicine 10/02/21 documented as of this encounter
--- OUTSIDE RECORDS SUMMARY | 2024-07-03 23:02 | External Medical Summary | Summary of Care ---
Author Name Unknown Organization [facility] Address [address] [place] [address] Phone [phone] Care Team Providers Care Document Management Consultant Name Role Phone Bharati Wang MD Primary Care Provide r Encounter Details Date Type Department Care Team (Late st Contact Info) Description 05/11/2024 Telephone Family [address] [address] Bharati Wang MD [address] [place] [address] [place] [phone] Allergies Active Allergy Reactions Criticality Noted Date [...] fracture of humerus 08/07/2019 01/22/2024 Overview (08/10/2019): [place] [facility] Bilateral sciatica 06/01/2019 4 Spasm of [...] Job 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 When patient calls back, please give the message from provider. Sent patient a [facility] message: No * Telephone Encounter - Bharati Wang MD - 05/11/2024 10:28 AM EST No need to extend the abx - pls advise the pt to increase the water intake - if no improvement then I would like to see the pt in the clinic * Telephone Encounter - Tri aCro RN - 05/11/2024 10:25 AM EST Hello. [...] Description 05/25/2024 12:00 PM EST Office Visit [address] [phone] Bharati Wang MD [address] [place] [address] [place] [address] 06/01/2024 12:00 PM EST Appointment Vascular Lab [address] [address] 06/01/2024 12:30 PM EST Appointment Vascular Lab [place] [address] [place] [address] 06/01/2024 1:20 PM EST Office Visit Vascular Surg [place] [address] [place] [address] Samson Dennis MD [facility] [address] 06/05/2024 1:20 PM EST Office Visit [address] [phone] Latha Shah CRNP [address] [place] [address] [place] [address] Scheduled Procedures Name Priority Associated Diagnoses Date/Ti me ESOPHAGOGASTRODUODENOSCOPY ( EGD), FLEXIBLE, TRANSORAL, DIAGNOSTIC Recall Contreras esophagus Health Maintenance Due Date Last Done Comments Alpha-1 Antitrypsin 1953 Adult Wellness Visit 2002 DISCUSS TOBACCO CESSATION (REFER TO SMARTSET #3291) [...] this encounter Medical Devices Implanted Type Area Inspector Rag Sorting Device Identifier Shelf Expiration Date Model / Serial / Lot Coil Target 3d 1zwb1td - [id number] Implanted:Qty : 1 on 04/15/2024 by Yann Jackson MD at [place] [facility] [place] N/A: Head ANNAMARIA : NEUROVASCULAR [id number] 12/16/2024 [id number] 60 / / [id number] 6cm, Coil Swiftpac Implanted:Qty : 1 on 04/15/2024 by Yann Jackson MD at OR [facility] [place] N/A: Head [employer] 12/16/2028 [id number] / / [id number] 45cm, Coil Swiftpac Implanted:Qty : 1 on 04/15/2024 by Yann Jackson MD at OR [facility] [place] N/A: Head [employer] 12/16/2028 [id number] / / [id number] 60cm, Coil Swiftpac Implanted:Qty : 1 on 04/15/2024 by Yann Jackson MD at OR [facility] [place] N/A: Head [employer] 11/02/2028 [id number] / / [id number] Coil Target 3d 5nmv2ds - [id number] Implanted:Qty : 1 on 04/15/2024 by Yann Jackson MD at OR [facility] [place] N/A: Head ANNAMARIA : NEUROVASCULAR [id number] 12/24/2024 [id number] 60 / / [id number] Coil Target 360 Soft 9mjs03nb - [id number] Implanted:Qty : 1 on 04/15/2024 by Yann Jackson MD at OR [facility] [place] N/A: Head ANNAMARIA : NEUROVASCULAR [id number] 06/23/2025 [id number] 00 / / [id number] Coil Target 360 Ultra 0pdf68iu - [id number] Implanted:Qty : 1 on 04/15/2024 by Yann Jackson MD at OR [facility] [place] N/A: Head ANNAMARIA : NEUROVASCULAR [id number] 05/04/2026 [id number] 00 / / [id number] Coil Target 360 Ultra 7xxw8ib - [id number] Implanted:Qty : 1 on 04/15/2024 by Yann Jackson MD at OR [facility] [place] N/A: Head ANNAMARIA : NEUROVASCULAR [id number] 02/03/2025 [id number] 80 / / [id number] 10cm, Coil Swiftpac Implanted:Qty : 2 on 04/15/2024 by Yann Jackson MD at OR [facility] [place] N/A: Head [employer] 12/24/2028 [id number] / / [id number] 30cm, Coil Swiftpac Implanted:Qty : 1 on 04/15/2024 by Yann Jackson MD at OR [facility] [place] N/A: Head [employer] 12/24/2028 [id number] / / [id number] 60cm, Coil Swiftpac Implanted:Qty : 1 on 04/15/2024 by Yann Jackson MD at OR [facility] [place] N/A: Head [employer] 11/02/2028 [id number] / / [id number] 6cm, Coil Swiftpac Implanted:Qty : 1 on 04/15/2024 by Yann Jackson MD at OR [facility] [place] N/A: Head [employer] 12/16/2028 [id number] / / [id number] Stent Vasc Hep 8mmx7.1e490hh - [id number] Implanted:Qty : 1 on 04/16/2024 by Samson Dennis MD at OR [facility] [place] Left: Iliac [employer] [id number] 12/29/2026 [id number] 2A / [id number] / [id number] documented as of this encounter Advance Directives [...] Discussed due to patient's condition Care Teams Document Management Consultant Relationship Specialty Start Date End Date Bharati Wang MD [address] [place] [address] [place] [address] PCP - General Family Medicine 10/02/21 documented as of this encounter
--- OUTSIDE RECORDS SUMMARY | 2024-07-03 23:02 | External Medical Summary | Summary of Care ---
Author Name Unknown Organization [facility] Address [address] [place] [address] Phone [phone] Care Team Providers Care Woven Label Designer Name Role Phone Bharati Wang MD Primary Care Provide r Reason for Visit * Reason Onset Date Comments Advice 05/08/2024 Encounter Details Date Type Department Care Team (Late st Contact Info) Description 05/08/2024 Telephone Family Medicine [address] [address] Bharati Wang MD [address] [place] [address] [place] [address] Advice Allergies Active Allergy [...] fracture of humerus 08/07/2019 01/22/2024 Overview (08/10/2019): [place] [facility] Bilateral sciatica 06/01/2019 4 Spasm of [...] Job Start Date Job End Date 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 Not on file [...] Description 05/25/2024 12:00 PM EST Office Visit [address] [phone] Bharati Wang MD [address] [place] [address] [place] [address] 06/01/2024 12:00 PM EST Appointment Vascular Lab [address] [address] 06/01/2024 12:30 PM EST Appointment Vascular Lab [address] [address] 06/01/2024 1:20 PM EST Office Visit Vascular Surg [address] [address] Samson Dennis MD [facility] [address] 06/05/2024 1:20 PM EST Office Visit [address] [phone] Latha Shah CRNP [address] [place] [address] [place] [address] Scheduled Procedures Name Priority Associated Diagnoses Date/Ti [...] this encounter Medical Devices Implanted Type Area Corporate Accounting Manager Device Identifier Shelf Expiration Date Model / Serial / Lot Coil Target 3d 9xhi8ql - [id number] Implanted:Qty : 1 on 04/15/2024 by Yann [place] [facility] [place]: Head ANNAMARIA : NEUROVASCULAR [id number] 12/16/2024 [id number] 60 / / [id number] 6cm, Coil Swiftpac Implanted:Qty : 1 on 04/15/2024 by Yann Jackson MD [place] [facility] [place]: Head [employer] 12/16/2028 [id number] / / [id number] 45cm, Coil Swiftpac Implanted:Qty : 1 on 04/15/2024 by Yann Jackson MD [place] [facility] [place]: Head [employer] 12/16/2028 [id number] / / [id number] 60cm, Coil Swiftpac Implanted:Qty : 1 on 04/15/2024 by Yann Jackson MD [place] [facility] [place]: Head [employer] 11/02/2028 [id number] / / [id number] Coil Target 3d 7jzv0ty - [id number] Implanted:Qty : 1 on 04/15/2024 by Yann Jackson MD [place] [facility]: Head ANNAMARIA : NEUROVASCULAR [id number] 12/24/2024 [id number] 60 / / [id number] Coil Target 360 Soft 7xeo48qf - [id number] Implanted:Qty : 1 on 04/15/2024 by Yann Jackson MD [place] [facility] [place]: Head ANNAMARIA : NEUROVASCULAR [id number] 06/23/2025 [id number] 00 / / [id number] Coil Target 360 Ultra 2fir94hc - [id number] Implanted:Qty : 1 on 04/15/2024 by Yann Jackson MD [place] [facility] [place]: Head ANNAMARIA : NEUROVASCULAR [id number] 05/04/2026 [id number] 00 / / [id number] Coil Target 360 Ultra 6qvq1jf - [id number] Implanted:Qty : 1 on 04/15/2024 by Yann Jackson MD [place] [facility] [place]: Head ANNAMARIA : NEUROVASCULAR [id number] 02/03/2025 [id number] 80 / / [id number] 10cm, Coil [employer] Implanted:Qty : 2 on 04/15/2024 by Yann Jackson MD [place] [facility] [place]: Head [employer] 12/24/2028 [id number] / / [id number] 30cm, Coil [employer]pac Implanted:Qty : 1 on 04/15/2024 by Yann Jackson MD [place] [facility] [place]: Head [employer] 12/24/2028 [id number] / / [id number] 60cm, Coil [employer]pac Implanted:Qty : 1 on 04/15/2024 by Yann Jackson MD [place] [facility] [place]: Head [employer] 11/02/2028 [id number] / / [id number] 6cm, Coil [employer] Implanted:Qty : 1 on 04/15/2024 by Yann Jackson MD [place] [facility] [place]: Head [employer] 12/16/2028 [id number] / / [id number] Stent Vasc Hep 8mmx7.6r563sx - [id number] Implanted:Qty : 1 on 04/16/2024 by Samson Dennis MD [place] [facility] Left: Iliac [employer] [id number] 12/29/2026 [id number] / [id number] / [id number] documented as of this encounter Advance Directives [...] Discussed due to patient's condition Care Teams Woven Label Designer Relationship Specialty Start Date End Date Bharati Wang MD [address] [place] [address] [place] [address] PCP - General Family Medicine 10/02/21 documented as of this encounter
--- OUTSIDE RECORDS SUMMARY | 2024-07-03 23:02 | External Medical Summary | Summary of Care ---
Author Name Unknown Organization [facility] Address [address] [place] [address] Phone [phone] Care Team Providers Care Scudding Inspector Name Role Phone Bharati Wang MD Primary Care Provide r Encounter Details Date Type Department Care Team (Late st Contact Info) Description 05/11/2024 Telephone Family [address] [address] Bharati Wang MD [address] [place] [address] [place] [phone] Allergies Active Allergy Reactions Criticality Noted Date [...] fracture of humerus 08/07/2019 01/22/2024 Overview (08/10/2019): [place] [facility] Bilateral sciatica 06/01/2019 4 Spasm of [...] Job Start Date Job End Date 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 [...] Description 05/11/2024 1:00 PM EST Office Visit [facility] [address] [place] [address] [facility] [address] [facility] [address] 05/25/2024 12:00 PM EST Office Visit [address] [phone] Bharati Wang MD [address] [place] [address] [place] [address] 06/01/2024 12:00 PM EST Appointment Vascular Lab [place] [address] [place] [address] 06/01/2024 12:30 PM EST Appointment Vascular Lab [address] [address] 06/01/2024 1:20 PM EST Office Visit Vascular Surg [place] [address] [place] [address] Samson Dennis MD [facility] [place] [address] 06/05/2024 1:20 PM EST Office Visit [address] [phone] Latha Shah [address] [place] [address] Scheduled Procedures Name Priority Associated Diagnoses Date/Ti [...] this encounter Medical Devices Implanted Type Area Frame Opener Device Identifier Shelf Expiration Date Model / Serial / Lot Coil Target 3d 2kyx1el - [id number] Implanted:Qty : 1 on 04/15/2024 by Yann Jackson MD at [place] [facility] [place]: Head ANNAMARIA : NEUROVASCULAR [id number] 12/16/2024 [id number] 60 / / [id number] 6cm, Coil Swiftpac Implanted:Qty : 1 on 04/15/2024 by Yann Jackson MD at [place] [facility] [place] N/A: Head [employer] 12/16/2028 [id number] / / [id number] 45cm, Coil Swiftpac Implanted:Qty : 1 on 04/15/2024 by Yann Jackson MD at [place] [facility] [place] N/A: Head [employer] 12/16/2028 [id number] / / [id number] 60cm, Coil Swiftpac Implanted:Qty : 1 on 04/15/2024 by Yann Jackson MD at [place] [facility] [place] N/A: Head [employer] 11/02/2028 [id number] / / [id number] Coil Target 3d 2tcn0xa - [id number] Implanted:Qty : 1 on 04/15/2024 by Yann Jackson MD at [place] [facility] [place]: Head ANNAMARIA : NEUROVASCULAR [id number] 12/24/2024 [id number] 60 / / [id number] Coil Target 360 Soft 0tmn87qo - [id number] Implanted:Qty : 1 on 04/15/2024 by Yann Jackson MD at [place] [facility] [place]: Head ANNAMARIA : NEUROVASCULAR [id number] 06/23/2025 [id number] 00 / / [id number] Coil Target 360 Ultra 2jrk83mu - [id number] Implanted:Qty : 1 on 04/15/2024 by Yann Jackson MD at [place] [facility] [place] N/A: Head ANNAMARIA : NEUROVASCULAR [id number] 05/04/2026 [id number] 00 / / [id number] Coil Target 360 Ultra 4mew4hj - [id number] Implanted:Qty : 1 on 04/15/2024 by Yann Jackson MD at [place] [facility] [place]/A: Head ANNAMARIA : NEUROVASCULAR [id number] 02/03/2025 [id number] 80 / / [id number] 10cm, Coil Swiftpac Implanted:Qty : 2 on 04/15/2024 by Yann Jackson MD at [place] [facility] [place] N/A: Head [employer] 12/24/2028 [id number] / / [id number] 30cm, Coil Swiftpac Implanted:Qty : 1 on 04/15/2024 by Yann Jackson MD at [place] [facility] [place] N/A: Head [employer] 12/24/2028 [id number] / / [id number] 60cm, Coil Swiftpac Implanted:Qty : 1 on 04/15/2024 by Yann Jackson MD at [place] [facility] [place] N/A: Head [employer] 11/02/2028 [id number] / / [id number] 6cm, Coil Swiftpac Implanted:Qty : 1 on 04/15/2024 by Yann Jackson MD at [place] [facility] [place] N/A: Head [employer] 12/16/2028 [id number] / / [id number] Stent Vasc Hep 8mmx7.2t471ar - [id number] Implanted:Qty : 1 on 04/16/2024 by Samson Dennis MD at [place] [facility] [place] Left: Iliac [employer] [id number] 12/29/2026 [id number] 2A / [id number] / [id number] documented as of this encounter Advance Directives [...] Discussed due to patient's condition Care Teams Scudding Inspector Relationship Specialty Start Date End Date Bharati Wang MD [address] [place] [address] [place] [phone] PCP - General Family Medicine 10/02/21 documented as of this encounter
--- OUTSIDE RECORDS SUMMARY | 2024-07-03 23:03 | External Medical Summary | Summary of Care ---
Author Name Unknown Organization [facility] Address [address] [place] [address] Phone [phone] Care Team Providers Care Ophthalmology Assistant Name Role Phone Bharati Wang MD Primary Care Provide r Reason for Visit * Reason Onset Date Comments FYI 05/07/2024 Encounter Details Date Type Department Care Team (Late st Contact Info) Description 05/07/2024 Telephone Family Medicine [address] [phone] Bharati Wang MD [address] [place] [address] [place] [phone] FYI Allergies Active Allergy Reactions Criticality Noted Date Comments Ampicillin 09/23/2003 Hives/trouble breathing Azithromycin 09/24/2003 hives and angioedema Ranitidine 10/29/2002 rash documented as of this encounter (statuses as of 05/07/2024) Medications VITAMIN D 2000 UNITS PO CAPS [...] as of this encounter (statuses as of 05/07/2024) Active Problems Problem Noted Date Diagnosed Date [...] as of this encounter (statuses as of 05/07/2024) Resolved Problems Problem Noted Date Diagnosed Date [...] fracture of humerus 08/07/2019 01/22/2024 Overview (08/10/2019): [place] [facility] Bilateral sciatica 06/01/2019 4 Spasm of [...] as of this encounter (statuses as of 05/07/2024) Immunizations Name Administration Dates Next Due COVID-19 [...] No 04/20/2024 Does the household have a [facility] source of income? 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 Not on file Not on file Not on file documented as of this encounter Plan of Treatment Upcoming Encounters Date Type Department Care Team (Late st Contact Info) Description 05/11/2024 1:00 PM EST Office Visit Neurosurgery, [address] [address] Yann Jackson MD [address] [place] [phone] 05/25/2024 12:00 PM EST Office Visit Family Medicine [address] [phone] Bharati Wang MD [address] [place] [address] [place] [address] 06/01/2024 12:00 PM EST Appointment Vascular Lab [address] [address] 06/01/2024 12:30 PM EST Appointment Vascular Lab [address] [address] 06/01/2024 1:20 PM EST Office Visit Vascular Surg [address] [place] [address] Samson Dennis MD [address] [facility] [place] [address] 06/05/2024 1:20 PM EST Office Visit Family Medicine [address] [place] [address] Latha Shah [address] [place] [address] Scheduled Procedures Name Priority Associated Diagnoses Date/Ti [...] this encounter Medical Devices Implanted Type Area Foreman/Project Manager Device Identifier Shelf Expiration Date Model / Serial / Lot Coil Target 3d 7rkb8ml - [id number] Implanted:Qty : 1 on 04/15/2024 by Yann Jackson MD at [place] [facility] [place]: Head ANNAMARIA : NEUROVASCULAR [id number] 12/16/2024 [id number] 60 / / [id number] 6cm, Coil Swiftpac Implanted:Qty : 1 on 04/15/2024 by Yann Jackson MD at [place] [facility] [place] N/A: Head [employer] 12/16/2028 [id number] / / [id number] 45cm, Coil Swiftpac Implanted:Qty : 1 on 04/15/2024 by Yann Jackson MD at [place] [facility] [place] N/A: Head [employer] 12/16/2028 [id number] / / [id number] 60cm, Coil Swiftpac Implanted:Qty : 1 on 04/15/2024 by Yann Jackson MD at [place] [facility] [place] N/A: Head [employer] 11/02/2028 [id number] / / [id number] Coil Target 3d 6pui4qd - [id number] Implanted:Qty : 1 on 04/15/2024 by Yann Jackson MD at [place] [facility] [place]/A: Head ANANMARIA : NEUROVASCULAR [id number] 12/24/2024 [id number] 60 / / [id number] Coil Target 360 Soft 6shu93pb - [id number] Implanted:Qty : 1 on 04/15/2024 by Yann Jackson MD at [place] [facility] [place] N/A: Head ANNAMARIA : NEUROVASCULAR [id number] 06/23/2025 [id number] 00 / / [id number] Coil Target 360 Ultra 4qrb27jg - [id number] Implanted:Qty : 1 on 04/15/2024 by Yann Jackson MD at [place] [facility] [place] N/A: Head ANNAMARIA : NEUROVASCULAR [id number] 05/04/2026 [id number] 00 / / [id number] Coil Target 360 Ultra 7gzo0xf - [id number] Implanted:Qty : 1 on 04/15/2024 by Yann Jackson MD at [place] [facility] [place] N/A: Head ANNAMARIA : NEUROVASCULAR [id number] 02/03/2025 [id number] 80 / / [id number] 10cm, Coil Swiftpac Implanted:Qty : 2 on 04/15/2024 by Yann Jackson MD at [place] [facility] [place] N/A: Head [employer] 12/24/2028 [id number] / / [id number] 30cm, Coil Swiftpac Implanted:Qty : 1 on 04/15/2024 by Yann Jackson MD at [place] [facility] [place] N/A: Head [employer] 12/24/2028 [id number] / / [id number] 60cm, Coil Swiftpac Implanted:Qty : 1 on 04/15/2024 by Yann Jackson MD at [place] [facility] [place] N/A: Head [employer] 11/02/2028 [id number] / / [id number] 6cm, Coil Swiftpac Implanted:Qty : 1 on 04/15/2024 by Yann Jackson MD at [place] [facility] [place] N/A: Head [employer] 12/16/2028 [id number] / / [id number] Stent Vasc Hep 8mmx7.7t992ad - [id number] Implanted:Qty : 1 on 04/16/2024 by Samson Dennis MD at [place] [facility] [place] Left: Iliac [employer] [id number] 12/29/2026 [id number] 2A / [id number] / [id number] documented as of this encounter Advance Directives [...] Discussed due to patient's condition Care Teams Ophthalmology Assistant Relationship Specialty Start Date End Date Bharati Wang MD [address] [place] [address] [place] [address] PCP - General Family Medicine 10/02/21 documented as of this encounter
--- OUTSIDE RECORDS SUMMARY | 2024-07-03 23:03 | External Medical Summary | Summary of Care ---
Author Name Unknown Organization [facility] Address [address] [place] [address] Phone [phone] Care Team Providers Care Air Traffic Coordinator Name Role Phone Bharati Wang MD Primary Care Provide r Reason for Visit * Reason Comments Outpatient Testing Encounter Details Date Type Department Care Team (Late st Contact Info) Description 05/04/2024 11:20 AM EST Laboratory Laboratory [address] [place] [phone] [place] [address] History of UTI Allergies Active Allergy Reactions Criticality Noted Date Comments Ampicillin 09/23/2003 Hives/trouble breathing Azithromycin 09/24/2003 hives and angioedema Ranitidine 10/29/2002 rash documented as of this encounter (statuses as of 05/04/2024) Medications VITAMIN D 2000 UNITS PO CAPS [...] as of this encounter (statuses as of 05/04/2024) Active Problems Problem Noted Date Diagnosed Date [...] as of this encounter (statuses as of 05/04/2024) Resolved Problems Problem Noted Date Diagnosed Date [...] as of this encounter (statuses as of 05/04/2024) Immunizations Name Administration Dates Next Due COVID-19 [...] 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 Not on file Not on file documented as of this encounter Plan of Treatment Upcoming Encounters Date Type Department Care Team (Late st Contact Info) Description 05/11/2024 1:00 PM EST Office Visit [place] [address] [place] [address] Yann Jackson MD [facility] [address] 05/25/2024 12:40 PM EST Office Visit Family Medicine [address] [phone] Bharati Wang MD [address] [place] [address] [place] [address] 06/01/2024 12:00 PM EST Appointment Vascular Lab [address] [address] 06/01/2024 12:30 PM EST Appointment Vascular Lab [address] [address] 06/01/2024 1:20 PM EST Office Visit Vascular Surg [address] [address] Samson Dennis MD [facility] [place] [address] 06/05/2024 1:20 PM EST Office Visit Family Medicine [facility] [place] [place] [phone] Latha Shah [address] [place] [address] Pending Results Name Type Priority Associated Diagnoses Date /Time URINALYSIS WITH MICROSCOPIC EXAM Lab Routine History of UTI 05/04/2024 11:18 AM EST CULTURE, URINE, QUANTITATIVE Lab Routine History of UTI 05/04/2024 11:18 AM EST Scheduled Procedures Name Priority Associated Diagnoses Date/Ti me ESOPHAGOGASTRODUODENOSCOPY ( EGD), FLEXIBLE, TRANSORAL, DIAGNOSTIC Recall Contreras esophagus Health Maintenance Due Date Last Done Comments Alpha-1 Antitrypsin 1953 Adult Wellness Visit 2002 DISCUSS TOBACCO CESSATION (REFER TO SMARTSET #0231) 08/01/2018 08/01/2017 (Discussed) DTap/Tdap Vaccines (2 - [...] this encounter Medical Devices Implanted Type Area Chief Internal Auditor Device Identifier Shelf Expiration Date Model / Serial / Lot Coil Target 3d 4apl2dn - [id number] Implanted:Qty : 1 on 04/15/2024 by Yann Jackson MD at [place] [facility] [place] N/A: Head ANNAMARIA : NEUROVASCULAR [id number] 12/16/2024 [id number] 60 / / [id number] 6cm, Coil Swiftpac Implanted:Qty : 1 on 04/15/2024 by Yann Jackson MD at OR [facility] [place] N/A: Head [employer] 12/16/2028 [id number] / / [id number] 45cm, Coil Swiftpac Implanted:Qty : 1 on 04/15/2024 by Yann Jackson MD at OR [facility] [place] N/A: Head [employer] 12/16/2028 [id number] / / [id number] 60cm, Coil Swiftpac Implanted:Qty : 1 on 04/15/2024 by Yann Jackson MD at OR [facility] [place] N/A: Head [employer] 11/02/2028 [id number] / / [id number] Coil Target 3d 3bcm1ld - [id number] Implanted:Qty : 1 on 04/15/2024 by Yann Jackson MD at [place] [facility] [place] N/A: Head ANNAMARIA : NEUROVASCULAR [id number] 12/24/2024 [id number] 60 / / [id number] Coil Target 360 Soft 0xom64mq - [id number] Implanted:Qty : 1 on 04/15/2024 by Yann Jackson MD at OR [facility] [place] N/A: Head ANNAMARIA : NEUROVASCULAR [id number] 06/23/2025 [id number] 00 / / [id number] Coil Target 360 Ultra 7ysw42xn - [id number] Implanted:Qty : 1 on 04/15/2024 by Yann Jackson MD at OR [facility] [place] N/A: Head ANNAMARIA : NEUROVASCULAR [id number] 05/04/2026 [id number] 00 / / [id number] Coil Target 360 Ultra 0aaj2dj - [id number] Implanted:Qty : 1 on 04/15/2024 by Yann Jackson MD at OR [facility] [place] N/A: Head ANNAMARIA : NEUROVASCULAR [id number] 02/03/2025 [id number] 80 / / [id number] 10cm, Coil Swiftpac Implanted:Qty : 2 on 04/15/2024 by Yann Jackson MD at [place] [facility] [place] N/A: Head [employer] 12/24/2028 [id number] / / [id number] 30cm, Coil Swiftpac Implanted:Qty : 1 on 04/15/2024 by Yann Jackson MD at OR [facility] [place] N/A: Head [employer] 12/24/2028 [id number] / / [id number] 60cm, Coil Swiftpac Implanted:Qty : 1 on 04/15/2024 by Yann Jackson MD at OR [facility] [place] N/A: Head [employer] 11/02/2028 [id number] / / [id number] 6cm, Coil Swiftpac Implanted:Qty : 1 on 04/15/2024 by Yann Jackson MD at OR [facility] [place] N/A: Head [employer] 12/16/2028 [id number] / / [id number] Stent Vasc Hep 8mmx7.9w532pc - [id number] Implanted:Qty : 1 on 04/16/2024 by Samson Dennis MD at OR [facility] [place] Left: Iliac [employer] [id number] 12/29/2026 [id number] 2A / [id number] / [id number] documented as of this encounter Visit Diagnoses Diagnosis History of UTI Personal history of urinary (tract) infection documented in this encounter Advance Directives * [...] Discussed due to patient's condition Care Teams Air Traffic Coordinator Relationship Specialty Start Date End Date Bharati Wang MD [address] [place] [address] [place] [phone] PCP - General Family Medicine 10/02/21 documented as of this encounter
--- OUTSIDE RECORDS SUMMARY | 2024-07-03 23:03 | External Medical Summary | Summary of Care ---
Author Name Unknown Organization [facility] Address [address] [place] [address] Phone [phone] Care Team Providers Care Fagoter Name Role Phone Bharati Wang MD Primary Care Provide r Reason for Visit * Reason Onset Date Comments Test Results 05/05/2024 Encounter Details Date Type Department Care Team (Late st Contact Info) Description 05/05/2024 Telephone Family Medicine [address] [phone] Bharati Wang MD [address] [place] [address] [place] [address] Test Results Allergies Active Allergy Reactions Criticality Noted Date Comments Ampicillin 09/23/2003 Hives/trouble breathing Azithromycin 09/24/2003 hives and angioedema Ranitidine 10/29/2002 rash documented as of this encounter (statuses as of 05/05/2024) Medications VITAMIN D 2000 UNITS PO CAPS [...] as of this encounter (statuses as of 05/05/2024) Active Problems Problem Noted Date Diagnosed Date [...] as of this encounter (statuses as of 05/05/2024) Resolved Problems Problem Noted Date Diagnosed Date [...] fracture of humerus 08/07/2019 01/22/2024 Overview (08/10/2019): [place] [facility] Bilateral sciatica 06/01/2019 4 Spasm of [...] as of this encounter (statuses as of 05/05/2024) Immunizations Name Administration Dates Next Due COVID-19 [...] Start Date 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 Not on file Not on file Not on file documented as of this encounter Miscellaneous Notes * Telephone Encounter - Sandra Recinos CMA - 05/05/2024 9:20 AM EST Patient is aware. * Telephone Encounter - Bharati Wang MD - 05/05/2024 9:18 AM EST Please call the pt - UA+ for UTI - will start the pt on keflex BID for 1 week documented in this encounter Plan of Treatment Upcoming Encounters Date Type Department Care Team (Late st Contact Info) Description 05/11/2024 1:00 PM EST Office Visit [facility] [place] [address] [place] [address] Yann Jackson MD [address] [place] [phone] 05/25/2024 12:40 PM EST Office Visit [address] [phone] Bharati Wang MD [address] [place] [address] [place] [address] 06/01/2024 12:00 PM EST Appointment Vascular Lab [address] [address] 06/01/2024 12:30 PM EST Appointment Vascular Lab [address] [address] 06/01/2024 1:20 PM EST Office Visit Vascular Surg [address] [address] Samson Dennis MD [address] [place] [address] 06/05/2024 1:20 PM EST Office Visit [address] [phone] Latha Shah CRNP [address] [place] [address] [place] [address] Scheduled Procedures Name Priority Associated Diagnoses Date/Ti [...] this encounter Medical Devices Implanted Type Area Watch Electrician Device Identifier Shelf Expiration Date Model / Serial / Lot Coil Target 3d 5mkj4ys - [id number] Implanted:Qty : 1 on 04/15/2024 by Yann Jackson MD at [place] [facility] [place]: Head ANNAAMRIA : NEUROVASCULAR [id number] 12/16/2024 [id number] 60 / / [id number] 6cm, Coil Swiftpac Implanted:Qty : 1 on 04/15/2024 by Yann Jackson MD at [place] [facility] [place] N/A: Head [employer] 12/16/2028 [id number] / / [id number] 45cm, Coil Swiftpac Implanted:Qty : 1 on 04/15/2024 by Yann Jackson MD at [place] [facility] [place] N/A: Head [employer] 12/16/2028 [id number] / / [id number] 60cm, Coil Swiftpac Implanted:Qty : 1 on 04/15/2024 by Yann Jackson MD at [place] [facility] [place] N/A: Head [employer] 11/02/2028 [id number] / / [id number] Coil Target 3d 7osz2bu - [id number] Implanted:Qty : 1 on 04/15/2024 by Yann Jackson MD at [place] [facility] [place]/A: Head ANNAMARIA : NEUROVASCULAR [id number] 12/24/2024 [id number] 60 / / [id number] Coil Target 360 Soft 9kva03gg - [id number] Implanted:Qty : 1 on 04/15/2024 by Yann Jackson MD at [place] [facility] [place] N/A: Head ANNAMARIA : NEUROVASCULAR [id number] 06/23/2025 [id number] 00 / / [id number] Coil Target 360 Ultra 7ufo19bi - [id number] Implanted:Qty : 1 on 04/15/2024 by Yann Jackson MD at [place] [facility] [place] N/A: Head ANNAMARIA : NEUROVASCULAR [id number] 05/04/2026 [id number] 00 / / [id number] Coil Target 360 Ultra 6err6qp - [id number] Implanted:Qty : 1 on 04/15/2024 by Yann Jackson MD at [place] [facility] [place] N/A: Head ANNAMARIA : NEUROVASCULAR [id number] 02/03/2025 [id number] 80 / / [id number] 10cm, Coil Swiftpac Implanted:Qty : 2 on 04/15/2024 by Yann Jackson MD at [place] [facility] [place] N/A: Head [employer] 12/24/2028 [id number] / / [id number] 30cm, Coil Swiftpac Implanted:Qty : 1 on 04/15/2024 by Yann Jackson MD at [place] [facility] [place] N/A: Head [employer] 12/24/2028 [id number] / / [id number] 60cm, Coil Swiftpac Implanted:Qty : 1 on 04/15/2024 by Yann Jackson MD at [place] [facility] [place] N/A: Head [employer] 11/02/2028 [id number] / / [id number] 6cm, Coil Swiftpac Implanted:Qty : 1 on 04/15/2024 by Yann Jackson MD at [place] [facility] [place] N/A: Head [employer] 12/16/2028 [id number] / / [id number] Stent Vasc Hep 8mmx7.9g356bf - [id number] Implanted:Qty : 1 on 04/16/2024 by Samson Dennis MD at [place] [facility] [place] Left: Iliac [employer] [id number] 12/29/2026 [id number] 2A / [id number] / [id number] documented as of this encounter Visit Diagnoses [...] Discussed due to patient's condition Care Teams Fagoter Relationship Specialty Start Date End Date Bharati Wang MD [address] [place] [address] [place] [phone] PCP - General Family Medicine 10/02/21 documented as of this encounter
--- OUTSIDE RECORDS SUMMARY | 2024-07-03 23:03 | External Medical Summary ---
Author Name Unknown Address Unknown Organization [id number]:[facility] [place] [address] [facility] [address] Laboratory Report Ordering Provider Test Date Status BAUTISTA KELLY 05/04/2024 11:18:46 Negra l <10,000 colonies/ml mixed no rmal lashell Observation Date Value Abnormality Reference (Units ) Status Bacteria identified in Specimen by Culture 05/04/2024 11:18:46 [id number]^ESCHE RICHIA COLI Abnormal Final 10,000 to 100,000 colonies/m L Escherichia coli Performing Location [facility] [place] [address] [facility] [address] Ordering Provider Test Date Status ESTEFANIA KELLYI 05/04/2024 11:18:46 Negra l Observation Date Value Abnormality Reference (Units ) Status Ampicillin 05/04/2024 11:18:46 <=2 Susceptible Final Cefazolin 05/04/2024 11:18:46 <=4 Susceptible Final Cefepime susceptibility 05/04/2024 11:18:46 <=1 Susceptible Final Ceftriaxone suceptibility 05/04/2024 11:18:46 <=1 Susceptible Final Ciprofloxacin 05/04/2024 11:18:46 <=0.25 Susceptible Final Due to serious side effects, the FDA has advised against using Ciprofloxacin to treat uncomplicated UTIs and respiratory tract infections unless there are no alternative treatment options. Gentamicin susceptibility 05/04/2024 11:18:46 <=1 Susc eptible Final Nitrofurantoin susceptibility 05/04/2024 11:18:46 <=16 Susceptible Final Piperacillin + Tazobactamsusceptibility 05/04/2024 11:18:46 <=4 Susceptible Final TMP-SMZ susceptibility 05/04/2024 11:18:46 <=20 Suscept ible Final Test: Culture, Urine, Quanti tative
Specimen Source: Urine, Clean Catch
Specimen Type: Urine
Specimen Date: 05/04/2024 1118
Result Date: 05/07/2024 0709
Result Status: Final result
Abnormal: Yes
Resulting Lab: [facility]
[address]
[facility] [address]

CULTURE

10,000 to 100,000 colonies/mL Escherichia coli (Abnormal)

<10,000 colonies/ml mixed normal lashell

SUSCEPTIBILITY

Escherichia coli
METHOD MICROBROTH
DILUTIONS

AMPICILLIN [...] alternative treatment options.

null Performing Location [facility] [place] [address] [facility] [address]
--- OUTSIDE RECORDS SUMMARY | 2024-07-03 23:03 | External Medical Summary ---
Author Name Unknown Address Unknown Organization K01:[facility] [place] [address] [address] Laboratory Report Ordering Provider Test Date Status BAUTISTA KELLY 05/04/2024 11:18:46 Negra l Observation Date Value Abnormality Reference (Units ) Status Color of Urine by Auto 05/04/2024 11:18:46 Yellow Colorless, Light Yellow, Yellow, Dark Yellow Final Clarity, Urine 05/04/2024 11:18:46 Cloudy Abnormal Clear Final Glucose [Mass/volume] in Urine by Automated test strip 05/04/2024 11:18:46 Negative Negative (mg/dL) Final Bilirubin.total [Presence] in Urine by Automated test strip 05/04/2024 11:18:46 Negative Negative Final Ketones [Mass/volume] in Urine by Automated test strip 05/04/2024 11:18:46 Negative Negative (mg/dL) Final Specific gravity, Urine 05/04/2024 11:18:46 1.022 1.003-1.030 Final Hemoglobin [Presence] in Urine by Automated test strip 05/04/2024 11:18:46 Large Abnormal Negative Final pH, Urine 05/04/2024 11:18:46 6.0 5.0-7.5 (Units) Final Protein [Mass/volume] in Urine by Automated test strip 05/04/2024 11:18:46 100 Abnormal Negative (mg/dL) Final Urobilinogen [Mass/volume] in Urine by Automated test strip 05/04/2024 11:18:46 Normal Normal (mg/dL) Final Nitrite [Presence] in Urine by Automated test strip 05/04/2024 11:18:46 Positive Abnormal Negative Final Leukocyte esterase [Presence] in Urine by Automated test strip 05/04/2024 11:18:46 Large Abnormal Negative Final RBC, Urine 05/04/2024 11:18:46 30-49 Abnormal 0-2 (/HPF) Final WBC, Urine 05/04/2024 11:18:46 50+ Abnormal 0-2 (/HPF) Final Bacteria [#/area] in Urine sediment by Microscopy high power field 05/04/2024 11:18:46 151-200 Abnormal 0-25 (/HPF) Final Calcium oxalate crystals [#/area] in Urine sediment by Microscopy high power field 05/04/2024 11:18:46 30-49 Abnormal None (/HPF) Final Hyaline casts, Urine 05/04/2024 11:18:46 5-9 Abnormal None (/LPF) Final Leukocyte clumps [#/area] in Urine sediment by Microscopy high power field 05/04/2024 11:18:46 Present Abnormal None (/HPF) Final Performing Location [facility] [place] - [address] [facility] [address]
--- OUTSIDE RECORDS SUMMARY | 2024-07-03 23:03 | External Medical Summary | Summary of Care ---
Author Name Unknown Organization [facility] Address [address] [place] [address] Phone [phone] Care Team Providers Care Dermatologist Managing Partner Name Role Phone Bharati Wang MD Primary Care Provide r Reason for Visit * Reason Onset Date Comments Test Results 05/05/2024 Encounter Details Date Type Department Care Team (Late st Contact Info) Description 05/05/2024 Telephone Family Medicine [address] [phone] Bharati Wang MD [address] [place] [address] [place] [address] Test Results Allergies Active [...] fracture of humerus 08/07/2019 01/22/2024 Overview (08/10/2019): [facility] Bilateral sciatica 06/01/2019 4 Spasm of [...] Job Start Date Job End Date 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 Not on [...] Description 05/11/2024 1:00 PM EST Office Visit [facility] [place] [address] [place] [address] Yann Jackson MD [address] [place] [phone] 05/25/2024 12:40 PM EST Office Visit [address] [phone] Bharati Wang MD [address] [place] [address] [place] [address] 06/01/2024 12:00 PM EST Appointment Vascular Lab [address] [address] 06/01/2024 12:30 PM EST Appointment Vascular Lab [address] [address] 06/01/2024 1:20 PM EST Office Visit Vascular Surg [address] [address] Samson Dennis MD [address] [place] [address] 06/05/2024 1:20 PM EST Office Visit [address] [phone] Latha Shah CRNP [address] [place] [address] [place] [address] Scheduled Procedures Name Priority Associated Diagnoses Date/Ti [...] this encounter Medical Devices Implanted Type Area Barrel Centerer Device Identifier Shelf Expiration Date Model / Serial / Lot Coil Target 3d 0nca2xw - [id number] Implanted:Qty : 1 on 04/15/2024 by Yann Jackson MD at [place] [facility] [place] N/A: Head ANNAMARIA : NEUROVASCULAR [id number] 12/16/2024 [id number] 60 / / [id number] 6cm, Coil Swiftpac Implanted:Qty : 1 on 04/15/2024 by Yann Jackson MD at [place] [facility] [place] N/A: Head [employer] 12/16/2028 [id number] / / [id number] 45cm, Coil Swiftpac Implanted:Qty : 1 on 04/15/2024 by Yann Jackson MD at [place] [facility] [place] N/A: Head [employer] 12/16/2028 [id number] / / [id number] 60cm, Coil Swiftpac Implanted:Qty : 1 on 04/15/2024 by Yann Jackson MD at [place] [facility] [place] N/A: Head [employer] 11/02/2028 [id number] / / [id number] Coil Target 3d 0anv9pm - [id number] Implanted:Qty : 1 on 04/15/2024 by Yann Jackson MD at [place] [facility] [place] N/A: Head ANNAMARIA : NEUROVASCULAR [id number] 12/24/2024 [id number] 60 / / [id number] Coil Target 360 Soft 6uni12lk - [id number] Implanted:Qty : 1 on 04/15/2024 by Yann Jackson MD at [place] [facility] [place] N/A: Head ANNAMARIA : NEUROVASCULAR [id number] 06/23/2025 [id number] 00 / / [id number] Coil Target 360 Ultra 8ztv75ye - [id number] Implanted:Qty : 1 on 04/15/2024 by Yann Jackson MD at [place] [facility] [place] N/A: Head ANNAMARIA : NEUROVASCULAR [id number] 05/04/2026 [id number] 00 / / [id number] Coil Target 360 Ultra 2zbb7yk - [id number] Implanted:Qty : 1 on 04/15/2024 by Yann Jackson MD at OR [facility] [place] N/A: Head ANNAMARIA : NEUROVASCULAR [id number] 02/03/2025 [id number] 80 / / [id number] 10cm, Coil Swiftpac Implanted:Qty : 2 on 04/15/2024 by Yann Jackson MD at OR [facility] [place] N/A: Head [employer] 12/24/2028 [id number] / / [id number] 30cm, Coil Swiftpac Implanted:Qty : 1 on 04/15/2024 by Yann Jackson MD at [place] [facility] [place] N/A: Head [employer] 12/24/2028 [id number] / / [id number] 60cm, Coil Swiftpac Implanted:Qty : 1 on 04/15/2024 by Yann Jackson MD at [place] [facility] [place] N/A: Head [employer] 11/02/2028 [id number] / / [id number] 6cm, Coil Swiftpac Implanted:Qty : 1 on 04/15/2024 by Yann Jackson MD at OR [facility] [place] N/A: Head [employer] 12/16/2028 [id number] / / [id number] Stent Vasc Hep 8mmx7.5v667ok - [id number] Implanted:Qty : 1 on 04/16/2024 by Samson Dennis MD at OR [facility] [place] Left: Iliac [employer] [id number] 12/29/2026 [id number] / [id number] / [id number] documented as of this encounter Visit Diagnoses [...] Discussed due to patient's condition Care Teams Dermatologist Managing Partner Relationship Specialty Start Date End Date Bharati Wang MD [address] [place] [address] [place] Ballard [phone] PCP - General Family Medicine 10/02/21 documented as of this encounter
--- OUTSIDE RECORDS SUMMARY | 2024-07-03 23:03 | External Medical Summary | Summary of Care ---
Author Name Unknown Organization [facility] Address [address] [place] [address] Phone [phone] Care Team Providers Care Chief Clinical Dietitian Name Role Phone Bhartai Wang MD Primary Care Provide r Reason for Visit * Reason Onset Date Comments Advice 05/08/2024 Encounter Details Date Type Department Care Team (Late st Contact Info) Description 05/08/2024 Telephone Family Medicine [address] [phone] Bharati Wang MD [address] [place] [address] [place] [address] Advice Allergies Active Allergy Reactions Criticality Noted Date Comments Ampicillin 09/23/2003 Hives/trouble breathing Azithromycin 09/24/2003 hives and angioedema Ranitidine 10/29/2002 rash documented as of this encounter (statuses as of 05/08/2024) Medications VITAMIN D 2000 UNITS PO CAPS [...] as of this encounter (statuses as of 05/08/2024) Active Problems Problem Noted Date Diagnosed Date [...] as of this encounter (statuses as of 05/08/2024) Resolved Problems Problem Noted Date Diagnosed Date [...] fracture of humerus 08/07/2019 01/22/2024 Overview (08/10/2019): [facility] Bilateral sciatica 06/01/2019 4 Spasm of [...] as of this encounter (statuses as of 05/08/2024) Immunizations Name Administration Dates Next Due COVID-19 [...] Job Start Date Job End Date 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 Not on file Not [...] 05/11/2024 1:00 PM EST Office Visit Neurosurgery, [place] [address] [place] [address] Yann Jackson MD [facility] [place] [address] 05/25/2024 12:00 PM EST Office Visit [address] [phone] Bharati Wang MD [address] [place] [address] [place] [address] 06/01/2024 12:00 PM EST Appointment Vascular Lab [place] [address] [place] [address] 06/01/2024 12:30 PM EST Appointment Vascular Lab [address] [address] 06/01/2024 1:20 PM EST Office Visit Vascular Surg [address] [address] Samson Dennis MD [facility] [place], [place] [phone] 06/05/2024 1:20 PM EST Office Visit Family [address] [phone] Latha Shah CRNP [address] [place] [address] [place] [address] Scheduled Procedures Name Priority Associated Diagnoses Date/Ti [...] this encounter Medical Devices Implanted Type Area Neckties Painter Device Identifier Shelf Expiration Date Model / Serial / Lot Coil Target 3d 3xkn1xs - [id number] Implanted:Qty : 1 on 04/15/2024 by Yann Jackson MD at [place] [facility] [place] N/A: Head ANNAMARIA : NEUROVASCULAR [id number] 12/16/2024 [id number] 60 / / [id number] 6cm, Coil Swiftpac Implanted:Qty : 1 on 04/15/2024 by Yann Jackson MD at OR [facility] [place] N/A: Head [employer] 12/16/2028 [id number] / / [id number] 45cm, Coil Swiftpac Implanted:Qty : 1 on 04/15/2024 by Yann Jackson MD at OR [facility] [place] N/A: Head [employer] 12/16/2028 [id number] / / [id number] 60cm, Coil Swiftpac Implanted:Qty : 1 on 04/15/2024 by Yann Jackson MD at OR [facility] [place] N/A: Head [employer] 11/02/2028 [id number] / / [id number] Coil Target 3d 3qti2jm - [id number] Implanted:Qty : 1 on 04/15/2024 by Yann Jackson MD at OR [facility] [place] N/A: Head ANNAMARIA : NEUROVASCULAR [id number] 12/24/2024 [id number] 60 / / [id number] Coil Target 360 Soft 4okv44jn - [id number] Implanted:Qty : 1 on 04/15/2024 by Yann Jackson MD at OR [facility] [place] N/A: Head ANNAMARIA : NEUROVASCULAR [id number] 06/23/2025 [id number] 00 / / [id number] Coil Target 360 Ultra 1edd73zb - [id number] Implanted:Qty : 1 on 04/15/2024 by Yann Jackson MD at OR [facility] [place] N/A: Head ANNAMARIA : NEUROVASCULAR [id number] 05/04/2026 [id number] 00 / / [id number] Coil Target 360 Ultra 9umb2ix - [id number] Implanted:Qty : 1 on 04/15/2024 by Yann Jackson MD at OR [facility] [place] N/A: Head ANNAMARIA : NEUROVASCULAR [id number] 02/03/2025 [id number] 80 / / [id number] 10cm, Coil Swiftpac Implanted:Qty : 2 on 04/15/2024 by Yann Jackson MD at OR [facility] [place] N/A: Head [employer] 12/24/2028 [id number] / / [id number] 30cm, Coil Swiftpac Implanted:Qty : 1 on 04/15/2024 by Yann Jackson MD at OR [facility] [place] N/A: Head [employer] 12/24/2028 [id number] / / [id number] 60cm, Coil Swiftpac Implanted:Qty : 1 on 04/15/2024 by Yann Jackson MD at OR [facility] [place] N/A: Head [employer] 11/02/2028 [id number] / / [id number] 6cm, Coil Swiftpac Implanted:Qty : 1 on 04/15/2024 by Yann Jackson MD at OR [facility] [place] N/A: Head [employer] 12/16/2028 [id number] / / [id number] Stent Vasc Hep 8mmx7.5v842tu - [id number] Implanted:Qty : 1 on 04/16/2024 by Samson Dennis MD at OR [facility] [place] Left: Iliac [employer] [id number] 12/29/2026 [id number] / [id number] / [id number] documented as of this encounter Advance Directives [...] Discussed due to patient's condition Care Teams Chief Clinical Dietitian Relationship Specialty Start Date End Date Bharati Wang MD [address] [place] [address] [place] Ballard [phone] PCP - General Family Medicine 10/02/21 documented as of this encounter
--- OUTSIDE RECORDS SUMMARY | 2024-07-03 23:04 | External Medical Summary | Summary of Care ---
Author Name Unknown Organization [facility] Address [address] [place] [address] Phone [phone] Care Team Providers Care Sight Mounter Name Role Phone Bharati Wang MD Primary Care Provide r Reason for Visit * Reason Onset Date Comments Hospital Follow-Up 04/30/2024 Encounter Details Date Type Department Care Team (Late st Contact Info) Description 04/30/2024 Telephone Access Center, [place] [address] [facility] *DO NOT REMOVE THIS DEPARTMENT* [place] [address] Services, Scheduling [address] [place] [phone] Hospital Follow-Up Allergies Active Allergy Reactions Criticality Noted Date Comments Ampicillin 09/23/2003 Hives/trouble breathing Azithromycin 09/24/2003 hives and angioedema Ranitidine 10/29/2002 rash documented as of this encounter (statuses as of 05/01/2024) Medications VITAMIN D 2000 UNITS PO CAPS [...] as of this encounter (statuses as of 05/01/2024) Active Problems Problem Noted Date Diagnosed Date [...] as of this encounter (statuses as of 05/01/2024) Resolved Problems Problem Noted Date Diagnosed Date [...] fracture of humerus 08/07/2019 01/22/2024 Overview (08/10/2019): [place] Bilateral sciatica 06/01/2019 4 Spasm of [...] as of this encounter (statuses as of 05/01/2024) Immunizations Name Administration Dates Next Due COVID-19 [...] Job Start Date Job End Date 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 HANNAH order is good Otis Bell LPN 05/01/2024 10:57 AM * Telephone Encounter - Susan Finley CRNP - 04/30/2024 2:01 PM EST Looks like HANNAH is ordered in Epic, would match that. There is also a CTA ordered but unclear whether this is needed. Would check with Dr. Dennis as he did surgery on this lady and inpt notes are very unclear what follow-up they would want. thanks * Telephone Encounter - Otis Bell LPN - 04/30/2024 12:54 PM EST Pt was admitted on 04/21/24 till 04/24/24 he presented for hypotension and left eye swelling, diplopia and blurriness. Transferred from [facility] Pt is on Plavix and was started on Eliquis Vascular was consulted PLAN: - WBC appreciated, 19 - Infectious workup - Medical admission - Vascular will remove prevena tomorrow - No intervention for RP hematoma Pt has surgery on 04/16/[address] Jackson and then on 04/16/[address] 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 Operation: Abdominal aortogram, Left lower extremity angiography, and Open left iliac catheter thromboembolectomy via groin incision. 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 Please advise if any testing is needed. Otis Bell LPN 04/30/2024 1:02 PM * Telephone Encounter - Todd Dalal OSA - 04/30/2024 12:28 PM EST Department (Single Entry) -> Vascular Surgery Appt Needed Within -> 1 Mo Released on: 04/24/2024 12:23 PM Please advise if pt needs to see Dr Dennis or AP. Pt lives in [place] SUSANNA Vitale documented in this encounter Plan of Treatment Upcoming Encounters Date Type Department Care Team (Late st Contact Info) Description 05/11/2024 1:00 PM EST Office Visit Neurosurgery, [place] [address] [place] [address] Yann Jackson MD [address] [place] [phone] 05/25/2024 12:40 PM EST Office Visit [address] [place] [phone] Bharati Wang MD [address] [place] [address] [place] [address] 06/05/2024 1:20 PM EST Office Visit [address] [place] [phone] Latha Shah CRNP [address] [place] [address] [place] [address] Scheduled Procedures Name Priority Associated Diagnoses Date/Ti [...] this encounter Medical Devices Implanted Type Area Buggy Loader Device Identifier Shelf Expiration Date Model / Serial / Lot Coil Target 3d 3rbw8cu - [id number] Implanted:Qty : 1 on 04/15/2024 by Yann Jackson MD at [place] [facility] [place] N/A: Head ANNAMARIA : NEUROVASCULAR [id number] 12/16/2024 [id number] 60 / / [id number] 6cm, Coil Swiftpac Implanted:Qty : 1 on 04/15/2024 by Yann Jackson MD at OR [facility] [place] N/A: Head [employer] 12/16/2028 [id number] / / [id number] 45cm, Coil Swiftpac Implanted:Qty : 1 on 04/15/2024 by Yann Jackson MD at OR [facility] [place] N/A: Head [employer] 12/16/2028 [id number] / / [id number] 60cm, Coil Swiftpac Implanted:Qty : 1 on 04/15/2024 by Yann Jackson MD at OR [facility] [place] N/A: Head [employer] 11/02/2028 [id number] / / [id number] Coil Target 3d 6syp0za - [id number] Implanted:Qty : 1 on 04/15/2024 by Yann Jackson MD at OR [facility] [place] N/A: Head ANNAMARIA : NEUROVASCULAR [id number] 12/24/2024 [id number] 60 / / [id number] Coil Target 360 Soft 0qsk51ll - [id number] Implanted:Qty : 1 on 04/15/2024 by Yann Jackson MD at OR [facility] [place] N/A: Head ANNAMARIA : NEUROVASCULAR [id number] 06/23/2025 [id number] 00 / / [id number] Coil Target 360 Ultra 8sdl56zm - [id number] Implanted:Qty : 1 on 04/15/2024 by Yann Jackson MD at [place] [facility] [place] N/A: Head ANNAMARIA : NEUROVASCULAR [id number] 05/04/2026 [id number] 00 / / [id number] Coil Target 360 Ultra 7csv9vb - [id number] Implanted:Qty : 1 on 04/15/2024 by Yann Jackson MD at OR [facility] [place] N/A: Head ANNAMARIA : NEUROVASCULAR [id number] 02/03/2025 [id number] 80 / / [id number] 10cm, Coil Swiftpac Implanted:Qty : 2 on 04/15/2024 by Yann Jackson MD at OR [facility] [place] N/A: Head [employer] 12/24/2028 [id number] / / [id number] 30cm, Coil Swiftpac Implanted:Qty : 1 on 04/15/2024 by Yann Jackson MD at OR [facility] [place] N/A: Head [employer] 12/24/2028 [id number] / / [id number] 60cm, Coil Swiftpac Implanted:Qty : 1 on 04/15/2024 by Yann Jackson MD at OR [facility] [place] N/A: Head [employer] 11/02/2028 [id number] / / [id number] 6cm, Coil Swiftpac Implanted:Qty : 1 on 04/15/2024 by Yann Jackson MD at OR [facility] [place] N/A: Head [employer] 12/16/2028 [id number] / / [id number] Stent Vasc Hep 8mmx7.9p324nz - [id number] Implanted:Qty : 1 on 04/16/2024 by Samson Dennis MD at [place] [facility] [place] Left: Iliac [employer] [id number] 12/29/2026 [id number] / [id number] / [id number] documented as of this encounter Advance Directives [...] Discussed due to patient's condition Care Teams Sight Mounter Relationship Specialty Start Date End Date Bharati Wang MD [address] [place] [address] [place] [address] PCP - General Family Medicine 10/02/21 documented as of this encounter
--- OUTSIDE RECORDS SUMMARY | 2024-07-03 23:04 | External Medical Summary | Summary of Care ---
Author Name Unknown Organization [facility] Address [address] [place] [address] Phone [phone] Care Team Providers Care Divinity Teacher Name Role Phone Bharati Wang MD Primary Care Provide r Reason for Visit * Reason Onset Date Comments Hospital Follow-Up 04/30/2024 Encounter Details Date Type Department Care Team (Late st Contact Info) Description 04/30/2024 Telephone Access Center, [place] [address] [facility] *DO NOT REMOVE THIS DEPARTMENT* [place] [address] Services, Scheduling [address] [phone] Hospital Follow-Up Allergies Active Allergy Reactions Criticality Noted Date Comments Ampicillin 09/23/2003 Hives/trouble breathing Azithromycin 09/24/2003 hives and angioedema Ranitidine 10/29/2002 rash documented as of this encounter (statuses as of 04/30/2024) Medications VITAMIN D 2000 UNITS PO CAPS [...] as of this encounter (statuses as of 04/30/2024) Active Problems Problem Noted Date Diagnosed Date [...] as of this encounter (statuses as of 04/30/2024) Resolved Problems Problem Noted Date Diagnosed Date [...] fracture of humerus 08/07/2019 01/22/2024 Overview (08/10/2019): [place] [facility] Bilateral sciatica 06/01/2019 4 Spasm of [...] as of this encounter (statuses as of 04/30/2024) Immunizations Name Administration Dates Next Due COVID-19 [...] Job Start Date Job End Date 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 Transferred from [facility] Pt is on Plavix and was started [...] Please advise if any testing is needed. Abby El LPN 04/30/2024 1:02 PM * Telephone Encounter - Todd Dalal OSA - 04/30/2024 12:28 PM EST Department (Single Entry) -> Vascular Surgery Appt Needed Within -> 1 Mo Released on: 04/24/2024 12:23 PM Please advise if pt needs to see Dr Dennis or AP. Pt lives in [place] documented in this encounter Plan of Treatment Upcoming Encounters Date Type Department Care Team (Late st Contact Info) Description 05/11/2024 1:00 PM EST Office Visit Neurosurgery, [place] [address] [place] [address] Yann Jackson MD [address] [place] [address] 05/25/2024 12:40 PM EST Office Visit [address] [phone] Bharati Wang MD [address] [place] [address] SAH[place] Ballard [address] 06/05/2024 1:20 PM EST Office Visit [address] [phone] Latha Shah CRNP [address] [place] [address] [place] [address] Scheduled Procedures Name Priority Associated Diagnoses Date/Ti [...] this encounter Medical Devices Implanted Type Area Director Of Corporate Communications Device Identifier Shelf Expiration Date Model / Serial / Lot Coil Target 3d [id number] - [id number] Implanted:Qty : 1 on 04/15/2024 by [place] MD [place] [facility] [place] Head ANNAMARIA : NEUROVASCULAR [id number] 12/16/2024 [id number] 60 / / [id number] 6cm, Coil Swiftpac Implanted:Qty : 1 on 04/15/2024 by Yann Jackson MD [place] [facility] [place]: Head [employer] 12/16/2028 [id number] / / [id number] 45cm, Coil Swiftpac Implanted:Qty : 1 on 04/15/2024 by Yann Jackson MD [place] [facility] [place]: Head [employer] 12/16/2028 [id number] / / [id number] 60cm, Coil Swiftpac Implanted:Qty : 1 on 04/15/2024 by Yann Jackson MD [place] [facility] [place]: Head [employer] 11/02/2028 [id number] / / [id number] Coil Target 3d 7wlx1ml - [id number] Implanted:Qty : 1 on 04/15/2024 by Yann Jackson MD [place] [facility] [place]: Head ANNAMARIA : NEUROVASCULAR [id number] 12/24/2024 [id number] 60 / / [id number] Coil Target 360 Soft 3flm09yv - [id number] Implanted:Qty : 1 on 04/15/2024 by Yann Jackson MD [place] [facility] [place]: Head ANNAMARIA : NEUROVASCULAR [id number] 06/23/2025 [id number] 00 / / [id number] Coil Target 360 Ultra 0gfp55zj - [id number] Implanted:Qty : 1 on 04/15/2024 by Yann Jackson MD [place] [facility] [place]: Head ANNAMARIA : NEUROVASCULAR [id number] 05/04/2026 [id number] 00 / / [id number] Coil Target 360 Ultra [id number] - [id number] Implanted:Qty : 1 on 04/15/2024 by Yann Jackson MD [place] [facility] [place]: Head ANNAMARIA : NEUROVASCULAR [id number] 02/03/2025 [id number] 80 / / [id number] 10cm, Coil Swiftpac Implanted:Qty : 2 on 04/15/2024 by Yann Jackson MD [place] [facility] [place]: Head [employer] 12/24/2028 [id number] / / [id number] 30cm, Coil Swiftpac Implanted:Qty : 1 on 04/15/2024 by Yann Jackson MD [place] [facility] [place]/A: Head [employer] 12/24/2028 [id number] / / [id number] 60cm, Coil Swiftpac Implanted:Qty : 1 on 04/15/2024 by Yann Jackson MD [place] [facility] [place]/A: Head [employer] 11/02/2028 [id number] / / [id number] 6cm, Coil Swiftpac Implanted:Qty : 1 on 04/15/2024 by Yann Jackson MD [place] [facility] [place]A: Head [employer] 12/16/2028 [id number] / / [id number] Stent Vasc Hep 8mmx7.3r370hn - [id number] Implanted:Qty : 1 on 04/16/2024 by Samson Dennis MD [place] [facility] Left: Iliac [employer] [id number] 12/29/2026 [id number] / [id number] / [id number] documented as of this encounter Advance Directives [...] Discussed due to patient's condition Care Teams Divinity Teacher Relationship Specialty Start Date End Date Bharati Wang MD [address] [place] [address] SAHIL Ballard [phone] PCP - General Family Medicine 10/02/21 documented as of this encounter
--- OUTSIDE RECORDS SUMMARY | 2024-07-03 23:04 | External Medical Summary | Summary of Care ---
Author Name Unknown Organization [facility] Address [address] [place] [address] Phone [phone] Care Team Providers Care Carousel Operator Name Role Phone Bharati Wang MD Primary Care Provide r Reason for Visit * Reason Onset Date Comments Hospital Follow-Up 04/30/2024 Encounter Details Date Type Department Care Team (Late st Contact Info) Description 04/30/2024 Telephone Access Center, [place] [address] [facility] *DO NOT REMOVE THIS DEPARTMENT* [place] [address] Services, Scheduling [address] [phone] Hospital Follow-Up Allergies Active Allergy Reactions Criticality [...] fracture of humerus 08/07/2019 01/22/2024 Overview (08/10/2019): [place] [facility] Bilateral sciatica 06/01/2019 4 Spasm of [...] Start Date Job End Date 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 There is also a CTA ordered but unclear whether this is needed. Would check with Dr. Dennis as he did surgery on this lady and inpt notes are very unclear what follow-up they would want. thanks * Telephone Encounter - Abby El LPN - 04/30/2024 12:54 PM EST Pt was admitted on 04/21/24 till 04/24/24 he presented for hypotension and left eye swelling, diplopia and blurriness. Transferred from [facility] Pt is on Plavix and was [...] Dr Dennis or AP. Pt lives in [place] SUSANNA Dalal documented in this encounter Plan of Treatment Upcoming Encounters Date Type Department Care Team (Late st Contact Info) Description 05/11/2024 1:00 PM EST Office Visit Neurosurgery, [place] [address] [place] [address] Yann Jackson MD [address] [place] [address] 05/25/2024 12:40 PM EST Office Visit [address] [phone] Bharati Wang MD [address] [place] [address] [place] Ball[place] [address] 06/05/2024 1:20 PM EST Office Visit [address] [place] [phone] Latha Shah CRNP [address] [place] [address] [place] [address] Scheduled Procedures Name Priority Associated Diagnoses Date/Ti me ESOPHAGOGASTRODUODENOSCOPY ( EGD), FLEXIBLE, TRANSORAL, DIAGNOSTIC Recall Contreras esophagus Health Maintenance Due Date Last Done Comments Alpha-1 Antitrypsin 1953 Adult Wellness Visit 2002 DISCUSS TOBACCO CESSATION (REFER TO SMARTSET #4379) 08/01/2018 08/01/2017 (Discussed) DTap/Tdap Vaccines (2 - [...] this encounter Medical Devices Implanted Type Area Hybrid Derivatives Trader Device Identifier Shelf Expiration Date Model / Serial / Lot Coil Target 3d 2doa6qb - [id number] Implanted:Qty : 1 on 04/15/2024 by Yann Jackson MD at OR [facility] N/A: Head ANNAMARIA : NEUROVASCULAR [id number] 12/16/2024 [id number] 60 / / [id number] 6cm, Coil Swiftpac Implanted:Qty : 1 on 04/15/2024 by Yann Jackson MD at OR [facility] N/A: Head [employer] 12/16/2028 [id number] / / [id number] 45cm, Coil Swiftpac Implanted:Qty : 1 on 04/15/2024 by Yann Jackson MD at OR [facility] N/A: Head [employer] 12/16/2028 [id number] / / [id number] 60cm, Coil Swiftpac Implanted:Qty : 1 on 04/15/2024 by Yann Jackson MD at OR [facility] N/A: Head [employer] 11/02/2028 [id number] / / [id number] Coil Target 3d 4dta2jo - [id number] Implanted:Qty : 1 on 04/15/2024 by Yann Jackson MD at OR [facility] N/A: Head ANNAMARIA : NEUROVASCULAR [id number] 12/24/2024 [id number] 60 / / [id number] Coil Target 360 Soft 0jth84sz - [id number] Implanted:Qty : 1 on 04/15/2024 by Yann Jackson MD at OR [facility] [place] N/A: Head ANNAMARIA : NEUROVASCULAR [id number] 06/23/2025 [id number] 00 / / [id number] Coil Target 360 Ultra 2pno49cq - [id number] Implanted:Qty : 1 on 04/15/2024 by Yann Jackson MD at OR [facility] N/A: Head ANNAMARIA : NEUROVASCULAR [id number] 05/04/2026 [id number] 00 / / [id number] Coil Target 360 Ultra 9ned7gc - [id number] Implanted:Qty : 1 on 04/15/2024 by Yann Jackson MD at OR [facility] N/A: Head ANNAMARIA : NEUROVASCULAR [id number] 02/03/2025 [id number] 80 / / [id number] 10cm, Coil Swiftpac Implanted:Qty : 2 on 04/15/2024 by Yann Jackson MD at OR [facility] N/A: Head [employer] 12/24/2028 [id number] / / [id number] 30cm, Coil Swiftpac Implanted:Qty : 1 on 04/15/2024 by Yann Jackson MD at OR [facility] N/A: Head [employer] 12/24/2028 [id number] / / [id number] 60cm, Coil Swiftpac Implanted:Qty : 1 on 04/15/2024 by Yann Jackson MD at OR [facility] N/A: Head [employer] 11/02/2028 [id number] / / [id number] 6cm, Coil Swiftpac Implanted:Qty : 1 on 04/15/2024 by Yann Jackson MD at OR [facility] N/A: Head [employer] 12/16/2028 [id number] / / [id number] Stent Vasc Hep 8mmx7.2t698hp - [id number] Implanted:Qty : 1 on 04/16/2024 by Samson Dennis MD at OR [facility] Left: Iliac [employer] [id number] 12/29/2026 [id number] 2A / [id number] / [id number] documented as of this encounter Advance Directives [...] Discussed due to patient's condition Care Teams Carousel Operator Relationship Specialty Start Date End Date Bharati Wang MD [address] [place] [address] SAHIL Ballard [phone] PCP - General Family Medicine 10/02/21 documented as of this encounter
--- OUTSIDE RECORDS SUMMARY | 2024-07-03 23:04 | External Medical Summary | Summary of Care ---
Author Name Unknown Organization [facility] Address [address] [place] [address] Phone [phone] Care Team Providers Care Insurance Defense Attorney Name Role Phone Bharati Wang MD Primary Care Provide r Reason for Visit * Reason Onset Date Comments Hospital Follow-Up 04/30/2024 Encounter Details Date Type Department Care Team (Late st Contact Info) Description 04/30/2024 Telephone Access Center, [place] [address] [facility] *DO NOT REMOVE THIS DEPARTMENT* [place] [address] Services, Scheduling [address] [phone] Hospital Follow-Up Allergies Active Allergy Reactions Criticality [...] fracture of humerus 08/07/2019 01/22/2024 Overview (08/10/2019): [place] [facility] Bilateral sciatica 06/01/2019 4 Spasm of [...] Start Date Job End Date 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 There is also [...] eye swelling, diplopia and blurriness. Transferred from [facility] Pt is on Plavix and was [...] Dr Dennis or AP. Pt lives in [place] SUSANNA Dalal documented in this encounter Plan of Treatment Upcoming Encounters Date Type Department Care Team (Late st Contact Info) Description 05/11/2024 1:00 PM EST Office Visit Neurosurgery, [place] [address] [place] [address] Yann Jackson MD [address] [place] [address] 05/25/2024 12:40 PM EST Office Visit [address] [phone] Bharati Wang MD [address] [place] [address] [place] Ball[place] [address] 06/05/2024 1:20 PM EST Office Visit [address] [place] [phone] Latha Shah CRNP [address] [place] [address] [place] [address] Scheduled Procedures Name Priority Associated Diagnoses Date/Ti me ESOPHAGOGASTRODUODENOSCOPY ( EGD), FLEXIBLE, TRANSORAL, DIAGNOSTIC Recall Contreras esophagus Health Maintenance Due Date Last Done Comments Alpha-1 Antitrypsin 1953 Adult Wellness Visit 2002 DISCUSS TOBACCO CESSATION (REFER TO SMARTSET #1146) 08/01/2018 08/01/2017 (Discussed) DTap/Tdap Vaccines (2 - [...] this encounter Medical Devices Implanted Type Area Staff Nuclear Medicine Technologist Device Identifier Shelf Expiration Date Model / Serial / Lot Coil Target 3d 5hht0xv - [id number] Implanted:Qty : 1 on 04/15/2024 by Yann Jackson MD at OR [facility] [place] N/A: Head ANNAMARIA : NEUROVASCULAR [id number] 12/16/2024 [id number] 60 / / [id number] 6cm, Coil Swiftpac Implanted:Qty : 1 on 04/15/2024 by Yann Jackson MD at OR [facility] N/A: Head [employer] 12/16/2028 [id number] / / [id number] 45cm, Coil Swiftpac Implanted:Qty : 1 on 04/15/2024 by Yann Jackson MD at OR [facility] N/A: Head [employer] 12/16/2028 [id number] / / [id number] 60cm, Coil Swiftpac Implanted:Qty : 1 on 04/15/2024 by Yann Jackson MD at OR [facility] N/A: Head [employer] 11/02/2028 [id number] / / [id number] Coil Target 3d 8com0jw - [id number] Implanted:Qty : 1 on 04/15/2024 by Yann Jackson MD at OR [facility] N/A: Head ANNAMARIA : NEUROVASCULAR [id number] 12/24/2024 [id number] 60 / / [id number] Coil Target 360 Soft 3hkh56ka - [id number] Implanted:Qty : 1 on 04/15/2024 by Yann Jackson MD at OR [facility] N/A: Head ANNAMARIA : NEUROVASCULAR [id number] 06/23/2025 [id number] 00 / / [id number] Coil Target 360 Ultra 3xwj80nw - [id number] Implanted:Qty : 1 on 04/15/2024 by Yann Jackson MD at OR [facility] N/A: Head ANNAMARIA : NEUROVASCULAR [id number] 05/04/2026 [id number] 00 / / [id number] Coil Target 360 Ultra 3zfy8eg - [id number] Implanted:Qty : 1 on 04/15/2024 by Yann Jackson MD at OR [facility] N/A: Head ANNAMARIA : NEUROVASCULAR [id number] 02/03/2025 [id number] 80 / / [id number] 10cm, Coil Swiftpac Implanted:Qty : 2 on 04/15/2024 by Yann Jackson MD at OR [facility] N/A: Head [employer] 12/24/2028 [id number] / / [id number] 30cm, Coil Swiftpac Implanted:Qty : 1 on 04/15/2024 by Yann Jackson MD at OR [facility] N/A: Head [employer] 12/24/2028 [id number] / / [id number] 60cm, Coil Swiftpac Implanted:Qty : 1 on 04/15/2024 by Yann Jackson MD at OR [facility] N/A: Head [employer] 11/02/2028 [id number] / / [id number] 6cm, Coil Swiftpac Implanted:Qty : 1 on 04/15/2024 by Yann Jackson MD at OR [facility] N/A: Head [employer] 12/16/2028 [id number] / / [id number] Stent Vasc Hep 8mmx7.9v744us - [id number] Implanted:Qty : 1 on 04/16/2024 by Samson Dennis MD at OR [facility] Left: Iliac [employer] [id number] 12/29/2026 [id number] 2A / [id number] / [id number] documented as of this encounter Advance Directives [...] Discussed due to patient's condition Care Teams Insurance Defense Attorney Relationship Specialty Start Date End Date Bharati Wang MD [address] [place] [address] SAHIL Ballard [phone] PCP - General Family Medicine 10/02/21 documented as of this encounter
--- OUTSIDE RECORDS SUMMARY | 2024-07-03 23:04 | External Medical Summary | Summary of Care ---
Author Name Unknown Organization [facility] Address [address] [place] [address] Phone [phone] Care Team Providers Care Model Builder Display Name Role Phone Bharati Wang MD Primary Care Provide r Reason for Visit * Reason Onset Date Comments Hospital Follow-Up 04/30/2024 Encounter Details Date Type Department Care Team (Late st Contact Info) Description 04/30/2024 Telephone Access Center, [place] [address] [facility] *DO NOT REMOVE THIS DEPARTMENT* [place] [address] Services, Scheduling [address] [phone] Hospital Follow-Up Allergies Active Allergy Reactions Criticality [...] fracture of humerus 08/07/2019 01/22/2024 Overview (08/10/2019): [place] [facility] Bilateral sciatica 06/01/2019 4 Spasm of [...] Job Start Date Job End Date 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 There is also [...] eye swelling, diplopia and blurriness. Transferred from [facility] Pt is on Plavix and was started [...] Dr Dennis or AP. Pt lives in [place] SUSANNA Dalal documented in this encounter Plan of Treatment Upcoming Encounters Date Type Department Care Team (Late st Contact Info) Description 05/11/2024 1:00 PM EST Office Visit Neurosurgery, [place] [address] [place] [address] Yann Jackson MD [address] [place] [address] 05/25/2024 12:40 PM EST Office Visit [address] [phone] Bharati Wang MD [address] [place] [address] SAH[place] Ballard [address] 06/05/2024 1:20 PM EST Office Visit [address] [place] [phone] Latha Shah CRNP [address] [place] [address] [place] [address] Scheduled Procedures Name Priority Associated Diagnoses Date/Ti me ESOPHAGOGASTRODUODENOSCOPY ( EGD), FLEXIBLE, TRANSORAL, DIAGNOSTIC Recall Contreras esophagus Health Maintenance Due Date Last Done Comments Alpha-1 Antitrypsin 1953 Adult Wellness Visit 2002 DISCUSS TOBACCO CESSATION (REFER TO SMARTSET #2556) 08/01/2018 08/01/2017 (Discussed) DTap/Tdap Vaccines (2 - [...] this encounter Medical Devices Implanted Type Area Guest Relations Coordinator Device Identifier Shelf Expiration Date Model / Serial / Lot Coil Target 3d 4wld5op - [id number] Implanted:Qty : 1 on 04/15/2024 by Yann [place] [facility] [place]: Head ANNAMARIA : NEUROVASCULAR [id number] 12/16/2024 [id number] 60 / / [id number] 6cm, Coil Swiftpac Implanted:Qty : 1 on 04/15/2024 by Yann Jackson MD [place] [facility] [place]A: Head [employer] 12/16/2028 [id number] / / [id number] 45cm, Coil Swiftpac Implanted:Qty : 1 on 04/15/2024 by Yann Jackson MD [place] [facility] [place]A: Head [employer] 12/16/2028 [id number] / / [id number] 60cm, Coil Swiftpac Implanted:Qty : 1 on 04/15/2024 by Yann Jackson MD [place] [facility] [place]/A: Head [employer] 11/02/2028 [id number] / / [id number] Coil Target 3d 0wss7ig - [id number] Implanted:Qty : 1 on 04/15/2024 by Yann Jackson MD [place] [facility] [place]A: Head ANNAMARIA : NEUROVASCULAR [id number] 12/24/2024 [id number] 60 / / [id number] Coil Target 360 Soft 8wdt02xv - [id number] Implanted:Qty : 1 on 04/15/2024 by Yann Jackson MD [place] [facility] [place]A: Head ANNAMARIA : NEUROVASCULAR [id number] 06/23/2025 [id number] 00 / / [id number] Coil Target 360 Ultra 1ukt54nl - [id number] Implanted:Qty : 1 on 04/15/2024 by Yann Jackson MD [place] [facility] [place]A: Head ANNAMARIA : NEUROVASCULAR [id number] 05/04/2026 [id number] 00 / / [id number] Coil Target 360 Ultra 1zzz8xm - [id number] Implanted:Qty : 1 on 04/15/2024 by Yann Jackson MD [place] [facility] [place]/A: Head ANNAMARIA : NEUROVASCULAR [id number] 02/03/2025 [id number] 80 / / [id number] 10cm, Coil Swiftpac Implanted:Qty : 2 on 04/15/2024 by Yann Jackson MD [place] [facility] [place]/A: Head [employer] 12/24/2028 [id number] / / [id number] 30cm, Coil Swiftpac Implanted:Qty : 1 on 04/15/2024 by Yann Jackson MD [place] [facility] N/A: Head [employer] 12/24/2028 [id number] / / [id number] 60cm, Coil Swiftpac Implanted:Qty : 1 on 04/15/2024 by Yann Jackson MD [place] [facility] N/A: Head [employer] 11/02/2028 [id number] / / [id number] 6cm, Coil Swiftpac Implanted:Qty : 1 on 04/15/2024 by Yann Jackson MD [place] [facility] N/A: Head [employer] 12/16/2028 [id number] / / [id number] Stent Vasc Hep 8mmx7.6y625wb - [id number] Implanted:Qty : 1 on 04/16/2024 by Samson Dennis MD [place] [facility] Left: Iliac [employer] [id number] 12/29/2026 [id number] / [id number] / [id number] documented as of this encounter Advance Directives [...] Discussed due to patient's condition Care Teams Model Builder Display Relationship Specialty Start Date End Date Bahrati Wang MD [address] [place] [address] SAHIL Ballard [phone] PCP - General Family Medicine 10/02/21 documented as of this encounter
--- OUTSIDE RECORDS SUMMARY | 2024-07-03 23:04 | External Medical Summary | Summary of Care ---
Author Name Unknown Organization [facility] Address [address] [place] [address] Phone [phone] Care Team Providers Care Flexographic Press Operator Name Role Phone Bharati Wang MD Primary Care Provide r Reason for Visit * Reason Onset Date Comments Hospital Follow-Up 04/30/2024 Encounter Details Date Type Department Care Team (Late st Contact Info) Description 04/30/2024 Telephone Access Center, [place] [address] [facility] *DO NOT REMOVE THIS DEPARTMENT* [place] [address] Services, Scheduling [address] [phone] Hospital Follow-Up Allergies Active Allergy Reactions Criticality [...] fracture of humerus 08/07/2019 01/22/2024 Overview (08/10/2019): [place] [facility] Bilateral sciatica 06/01/2019 4 Spasm of [...] Job Start Date Job End Date 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 HANNAH order is good Otis Bell LPN 05/01/2024 10:57 AM * Telephone Encounter - Lonnie Finley CRNP - 04/30/2024 2:01 PM EST Looks like HANNAH is ordered in [facility], would match that. There is also a [...] eye swelling, diplopia and blurriness. Transferred from [facility] Pt is on Plavix and was [...] Dr Dennis or AP. Pt lives in [place] SUSANNA Vit[place] documented in this encounter Plan of Treatment Upcoming Encounters Date Type Department Care Team (Late st Contact Info) Description 05/11/2024 1:00 PM EST Office Visit [facility] [place] [address] [place] [address] Yann Jackson MD [address] [place] [address] 05/25/2024 12:40 PM EST Office Visit [address] [phone] Bharati Wang MD [address] [place] [address] [place] [address] 06/05/2024 1:20 PM EST Office Visit [address] [phone] Latha Shah CRNP [address] [place] [address] [place] [address] Scheduled Orders Name Type Priority Associated Diagnoses Orde r Schedule VASC YOCHA DEHE ART DUP LTD LE Medical Imaging Routine PAD (peripheral artery disease) (HCC) Ordered: 05/01/2024 Scheduled Procedures Name Priority Associated Diagnoses Date/Ti me ESOPHAGOGASTRODUODENOSCOPY ( EGD), FLEXIBLE, TRANSORAL, DIAGNOSTIC Recall Contreras esophagus Health Maintenance Due Date Last Done Comments Alpha-1 Antitrypsin 1953 Adult Wellness Visit 2002 DISCUSS TOBACCO CESSATION (REFER TO SMARTSET #7731) 08/01/2018 08/01/2017 (Discussed) DTap/Tdap Vaccines (2 - [...] this encounter Medical Devices Implanted Type Area Cloth Finishing Range Back Tender Device Identifier Shelf Expiration Date Model / Serial / Lot Coil Target 3d 5bwq4sp - [id number] Implanted:Qty : 1 on 04/15/2024 by Yann Jackson MD at [place] [facility]/A: Head ANNAMARIA : NEUROVASCULAR [id number] 12/16/2024 [id number] 60 / / [id number] 6cm, Coil Swiftpac Implanted:Qty : 1 on 04/15/2024 by Yann Jackson MD at [place] [facility] [place]/A: Head [employer] 12/16/2028 [id number] / / [id number] 45cm, Coil Swiftpac Implanted:Qty : 1 on 04/15/2024 by Yann Jackson MD at [place] [facility] N/A: Head [employer] 12/16/2028 [id number] / / [id number] 60cm, Coil Swiftpac Implanted:Qty : 1 on 04/15/2024 by Yann Jackson MD at OR [facility] N/A: Head [employer] 11/02/2028 [id number] / / [id number] Coil Target 3d 9cwt0zz - [id number] Implanted:Qty : 1 on 04/15/2024 by Yann Jcakson MD at [place] [facility] N/A: Head ANNAMARIA : NEUROVASCULAR [id number] 12/24/2024 [id number] 60 / / [id number] Coil Target 360 Soft 5dmz97ng - [id number] Implanted:Qty : 1 on 04/15/2024 by Yann Jackson MD at [place] [facility] N/A: Head ANNAMARIA : NEUROVASCULAR [id number] 06/23/2025 [id number] 00 / / [id number] Coil Target 360 Ultra 9yuc60qf - [id number] Implanted:Qty : 1 on 04/15/2024 by Yann Jackson MD at [place] [facility] N/A: Head ANNAMARIA : NEUROVASCULAR [id number] 05/04/2026 [id number] 00 / / [id number] Coil Target 360 Ultra 3vie7qr - [id number] Implanted:Qty : 1 on 04/15/2024 by Yann Jackson MD at [place] [facility] N/A: Head ANNAMARIA : NEUROVASCULAR [id number] 02/03/2025 [id number] 80 / / [id number] 10cm, Coil Swiftpac Implanted:Qty : 2 on 04/15/2024 by Yann Jackson MD at OR [facility] N/A: Head [employer] 12/24/2028 [id number] / / [id number] 30cm, Coil Swiftpac Implanted:Qty : 1 on 04/15/2024 by Yann Jackson MD at OR [facility] N/A: Head [employer] 12/24/2028 [id number] / / [id number] 60cm, Coil Swiftpac Implanted:Qty : 1 on 04/15/2024 by Yann Jackson MD at OR [facility] N/A: Head [employer] 11/02/2028 [id number] / / [id number] 6cm, Coil Swiftpac Implanted:Qty : 1 on 04/15/2024 by Yann Jackson MD at OR [facility] N/A: Head [employer] 12/16/2028 [id number] / / [id number] Stent Vasc Hep 8mmx7.1z113kd - [id number] Implanted:Qty : 1 on 04/16/2024 by Samson Dennis MD at [place] [facility] Left: Iliac [employer] [id number] 12/29/2026 [id number] / [id number] / [id number] documented as of this encounter Visit Diagnoses Diagnosis PAD (peripheral artery disease) (HCC)- Primary Peripheral vascular disease, unspecified [...] Discussed due to patient's condition Care Teams Flexographic Press Operator Relationship Specialty Start Date End Date Bharati Wang MD [address] [place] [address] [place] [address] PCP - General Family Medicine 10/02/21 documented as of this encounter
--- OUTSIDE RECORDS SUMMARY | 2024-07-03 23:04 | External Medical Summary | Summary of Care ---
Author Name Unknown Organization [facility] Address [address] [place] [address] Phone [phone] Care Team Providers Care Gas Pipe Layer Name Role Phone Bharati Wang MD Primary Care Provide r Reason for Visit * Reason Onset Date Comments Hospital Follow-Up 04/30/2024 Encounter Details Date Type Department Care Team (Late st Contact Info) Description 04/30/2024 Telephone Access Center, [place] [facility] [address] [facility] *DO NOT REMOVE THIS DEPARTMENT* [place] [address] Services, Scheduling [address] [phone] Hospital Follow-Up Allergies Active Allergy Reactions Criticality [...] fracture of humerus 08/07/2019 01/22/2024 Overview (08/10/2019): [place] [facility] Bilateral sciatica 06/01/2019 4 Spasm of [...] Start Date 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 Not on file Not on file Not on file documented as of this encounter Miscellaneous Notes * Telephone Encounter - Susan Finley CRNP - 04/30/2024 2:01 PM EST Looks like HANNAH is ordered in [facility], would match that. There is also [...] eye swelling, diplopia and blurriness. Transferred from [facility] Pt is on Plavix and was started [...] Dr Dennis or AP. Pt lives in [place] SUSANNA Dalal documented in this encounter Plan of Treatment Upcoming Encounters Date Type Department Care Team (Late st Contact Info) Description 05/11/2024 1:00 PM EST Office Visit Neurosurgery, [place] [address] [place] [address] Yann Jackson MD [address] [place] [address] 05/25/2024 12:40 PM EST Office Visit [address] [phone] Bharati Wang MD [address] [place] [address] [place] [address] 06/05/2024 1:20 PM EST Office Visit [address] [place] [phone] Latha Shah CRNP [address] [place] [address] [place] [address] Scheduled Procedures Name Priority Associated Diagnoses Date/Ti me ESOPHAGOGASTRODUODENOSCOPY ( EGD), FLEXIBLE, TRANSORAL, DIAGNOSTIC Recall Contreras esophagus Health Maintenance Due Date Last Done Comments Alpha-1 Antitrypsin 1953 Adult Wellness Visit 2002 DISCUSS TOBACCO CESSATION (REFER TO SMARTSET #7270) 08/01/2018 08/01/2017 (Discussed) DTap/Tdap Vaccines (2 - [...] this encounter Medical Devices Implanted Type Area Cnc Technician Device Identifier Shelf Expiration Date Model / Serial / Lot Coil Target 3d 9mib9xl - [id number] Implanted:Qty : 1 on 04/15/2024 by Yann Jackson MD at OR [facility] N/A: Head ANNAMARIA : NEUROVASCULAR [id number] 12/16/2024 [id number] 60 / / [id number] 6cm, Coil Swiftpac Implanted:Qty : 1 on 04/15/2024 by Yann Jackson MD at OR [facility] N/A: Head [employer] 12/16/2028 [id number] / / [id number] 45cm, Coil Swiftpac Implanted:Qty : 1 on 04/15/2024 by Yann Jackson MD at OR [facility] N/A: Head [employer] 12/16/2028 [id number] / / [id number] 60cm, Coil Swiftpac Implanted:Qty : 1 on 04/15/2024 by Yann Jackson MD at OR [facility] N/A: Head [employer] 11/02/2028 [id number] / / [id number] Coil Target 3d 9sjr5hl - [id number] Implanted:Qty : 1 on 04/15/2024 by Yann Jackson MD at OR [facility] N/A: Head ANNAMARIA : NEUROVASCULAR [id number] 12/24/2024 [id number] 60 / / [id number] Coil Target 360 Soft 3tdj41hi - [id number] Implanted:Qty : 1 on 04/15/2024 by Yann Jackson MD at OR [facility] N/A: Head ANNAMARIA : NEUROVASCULAR [id number] 06/23/2025 [id number] 00 / / [id number] Coil Target 360 Ultra 6cmf38dz - [id number] Implanted:Qty : 1 on 04/15/2024 by Yann Jackson MD at OR [facility] N/A: Head ANNAMARIA : NEUROVASCULAR [id number] 05/04/2026 [id number] 00 / / [id number] Coil Target 360 Ultra 5hcd3xw - [id number] Implanted:Qty : 1 on 04/15/2024 by Yann Jackson MD at OR [facility] N/A: Head ANNAMARIA : NEUROVASCULAR [id number] 02/03/2025 [id number] 80 / / [id number] 10cm, Coil Swiftpac Implanted:Qty : 2 on 04/15/2024 by Yann Jackson MD at OR [facility] N/A: Head [employer] 12/24/2028 [id number] / / [id number] 30cm, Coil Swiftpac Implanted:Qty : 1 on 04/15/2024 by Yann Jackson MD at OR [facility] N/A: Head [employer] 12/24/2028 [id number] / / [id number] 60cm, Coil Swiftpac Implanted:Qty : 1 on 04/15/2024 by Yann Jackson MD at OR [facility] N/A: Head [employer] 11/02/2028 [id number] / / [id number] 6cm, Coil Swiftpac Implanted:Qty : 1 on 04/15/2024 by Yann Jackson MD at OR [facility] N/A: Head [employer] 12/16/2028 [id number] / / [id number] Stent Vasc Hep 8mmx7.8n315wv - [id number] Implanted:Qty : 1 on 04/16/2024 by Samson Dennis MD at OR [facility] Left: Iliac [employer] [id number] 12/29/2026 [id number] 2A / [id number] / [id number] documented as of this encounter Advance Directives [...] Discussed due to patient's condition Care Teams Gas Pipe Layer Relationship Specialty Start Date End Date Bharati Wang MD [address] [place] [address] [place] [phone] PCP - General Family Medicine 10/02/21 documented as of this encounter
--- OUTSIDE RECORDS SUMMARY | 2024-07-03 23:04 | External Medical Summary | Summary of Care ---
Author Name Unknown Organization [facility] Address [address] [place] [address] Phone [phone] Care Team Providers Care Senior Ui Developer Name Role Phone Bharati Wang MD Primary Care Provide r Reason for Visit * Reason Onset Date Comments Hospital Follow-Up 04/30/2024 Encounter Details Date Type Department Care Team (Late st Contact Info) Description 04/30/2024 Telephone Access Center, [place] [facility] [address] [facility] *DO NOT REMOVE THIS DEPARTMENT* [place] [address] Services, Scheduling [address] [phone] Hospital Follow-Up Allergies Active Allergy Reactions Criticality [...] fracture of humerus 08/07/2019 01/22/2024 Overview (08/10/2019): [place] [facility] Bilateral sciatica 06/01/2019 4 Spasm of [...] Job 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 Not on file Not on file Not on file documented as of this encounter Miscellaneous Notes * Telephone Encounter - Otis Bell LPN - 05/01/2024 11:37 AM EST Pt scheduled. Otis Bell LPN 05/01/2024 11:37 AM * Addendum Note - Lonnie Finley CRNP - 05/01/2024 11:07 AM EST Addended by: LONNIE FINLEY on: 05/01/2024 11:07 AM Modules accepted: Orders * Telephone Encounter - Lonnie Finley CRNP - 05/01/2024 11:07 AM EST Order signed as requested * Addendum Note - Otis Bell LPN - 05/01/2024 10:57 AM ESTAddended by: OTIS BELL on: 05/01/2024 10:57 AM Modules accepted: Orders * Telephone Encounter - Otis Bell LPN - 05/01/2024 10:57 AM EST Order placed for [place] duplex. HANNAH order is good Otis Bell LPN 05/01/2024 10:57 AM * Telephone Encounter - Lonnie Finley CRNP - 04/30/2024 2:01 PM EST Looks like HANNAH is ordered in [facility], would match that. There is also [...] Dr Dennis or AP. Pt lives in [place] SUSANNA Dalal documented in this encounter Plan of Treatment Upcoming Encounters Date Type Department Care Team (Late st Contact Info) Description 05/11/2024 1:00 PM EST Office Visit Neurosurgery, [address] [address] Yann Jackson MD [address] [place] [phone] 05/25/2024 12:40 PM EST Office Visit [address] [place] [phone] Bharati Wang MD [address] [place] [address] [place] [address] 06/01/2024 12:00 PM EST Appointment Vascular Lab [address] [address] 06/01/2024 12:30 PM EST Appointment Vascular Lab [address] [address] 06/01/2024 1:20 PM EST Office Visit Vascular Surg [address] [address] Samson Dennis MD [address] [place] [address] 06/05/2024 1:20 PM EST Office Visit Family Medicine [address] [place] [phone] Latha Shah [address] [place] [address] Scheduled Orders Name Type Priority Associated Diagnoses Orde r Schedule VASC KOBU[place] ART DUP LTD LE Medical Imaging Routine PAD (peripheral artery disease) (HCC) Ordered: 05/01/2024 Scheduled Procedures Name Priority Associated Diagnoses Date/Ti me ESOPHAGOGASTRODUODENOSCOPY ( EGD), FLEXIBLE, TRANSORAL, DIAGNOSTIC Recall Contreras esophagus Health Maintenance Due Date Last Done Comments Alpha-1 Antitrypsin 1953 Adult Wellness Visit 2002 DISCUSS TOBACCO CESSATION (REFER TO SMARTSET #0959) 08/01/2018 08/01/2017 (Discussed) DTap/Tdap Vaccines (2 - [...] this encounter Medical Devices Implanted Type Area Bacon Skin Lifter Device Identifier Shelf Expiration Date Model / Serial / Lot Coil Target 3d 5akr6th - [id number] Implanted:Qty : 1 on 04/15/2024 by Yann Jackson MD at OR [facility] N/A: Head ANNAMARIA : NEUROVASCULAR [id number] 12/16/2024 [id number] 60 / / [id number] 6cm, Coil Swiftpac Implanted:Qty : 1 on 04/15/2024 by Yann Jackson MD at OR [facility] N/A: Head [employer] 12/16/2028 [id number] / / [id number] 45cm, Coil Swiftpac Implanted:Qty : 1 on 04/15/2024 by Yann Jackson MD at OR [facility] N/A: Head [employer] 12/16/2028 [id number] / / [id number] 60cm, Coil Swiftpac Implanted:Qty : 1 on 04/15/2024 by Yann Jackson MD at OR [facility] N/A: Head [employer] 11/02/2028 [id number] / / [id number] Coil Target 3d 7xkh1mb - [id number] Implanted:Qty : 1 on 04/15/2024 by Yann Jackson MD at OR [facility] N/A: Head ANNAMARIA : NEUROVASCULAR [id number] 12/24/2024 [id number] 60 / / [id number] Coil Target 360 Soft 8fsr99xg - [id number] Implanted:Qty : 1 on 04/15/2024 by Yann Jackson MD at OR [facility] N/A: Head ANNAMARIA : NEUROVASCULAR [id number] 06/23/2025 [id number] 00 / / [id number] Coil Target 360 Ultra 3ksj71pw - [id number] Implanted:Qty : 1 on 04/15/2024 by Yann Jackson MD at OR [facility] N/A: Head ANNAMARIA : NEUROVASCULAR [id number] 05/04/2026 [id number] 00 / / [id number] Coil Target 360 Ultra 6cto2yk - [id number] Implanted:Qty : 1 on 04/15/2024 by Yann Jackson MD at OR [facility] N/A: Head ANNAMARIA : NEUROVASCULAR [id number] 02/03/2025 [id number] 80 / / [id number] 10cm, Coil Swiftpac Implanted:Qty : 2 on 04/15/2024 by Yann Jackson MD at OR [facility] N/A: Head [employer] 12/24/2028 [id number] / / [id number] 30cm, Coil Swiftpac Implanted:Qty : 1 on 04/15/2024 by Yann Jackson MD at OR [facility] N/A: Head [employer] 12/24/2028 [id number] / / [id number] 60cm, Coil Swiftpac Implanted:Qty : 1 on 04/15/2024 by Yann Jackson MD at OR [facility] N/A: Head [employer] 11/02/2028 [id number] / / [id number] 6cm, Coil Swiftpac Implanted:Qty : 1 on 04/15/2024 by Yann Jackson MD at OR [facility] N/A: Head [employer] 12/16/2028 [id number] / / [id number] Stent Vasc Hep 8mmx7.4l887tj - [id number] Implanted:Qty : 1 on 04/16/2024 by Samson Dennis MD at OR [facility] Left: Iliac [employer] [id number] 12/29/2026 [id number] / [id number] / [id number] documented as of this encounter Visit Diagnoses [...] Discussed due to patient's condition Care Teams Senior Ui Developer Relationship Specialty Start Date End Date Bharati Wang MD [address] [place] [address] [place] [address] PCP - General Family Medicine 10/02/21 documented as of this encounter
--- OUTSIDE RECORDS SUMMARY | 2024-07-03 23:05 | External Medical Summary | Summary of Care ---
Author Name Unknown Organization [facility] Address [address] [place] [address] Phone [phone] Care Team Providers Care Catering Barista Name Role Phone Bharati Wang MD Primary Care Provide r Reason for Visit * Reason Onset Date Comments Medication Pre-auth 04/29/2024 VITRON-C TAB LET Encounter Details Date Type Department Care Team (Late st Contact Info) Description 04/29/2024 Telephone Family Medicine [address] [phone] Bharati Wang MD [address] [place] [address] [place] [address] Medication Pre-auth (VITRON-C TABLET) Allergies Active Allergy Reactions Criticality Noted Date Comments Ampicillin 09/23/2003 Hives/trouble breathing Azithromycin 09/24/2003 hives and angioedema Ranitidine 10/29/2002 rash documented as of this encounter (statuses as of 04/29/2024) Medications VITAMIN D 2000 UNITS PO CAPS [...] as of this encounter (statuses as of 04/29/2024) Active Problems Problem Noted Date Diagnosed Date [...] as of this encounter (statuses as of 04/29/2024) Resolved Problems Problem Noted Date Diagnosed Date [...] fracture of humerus 08/07/2019 01/22/2024 Overview (08/10/2019): [place] [facility] Bilateral sciatica 06/01/2019 4 Spasm of [...] as of this encounter (statuses as of 04/29/2024) Immunizations Name Administration Dates Next Due COVID-19 [...] Date Smoking Tobacco: Every Day Cigarettes 1 57.5 Started: 1965 Smokeless Tobacco: Never Alcohol Use [...] Job 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 - 04/29/2024 12:46 PM EST Unable to reach patient at this time. Left message on the answering machine requesting callback regarding vitron excluded from coverage and pt can purchase OTC. Advised patient to please call [phone]. Please transfer her back to myself. If I'm not available, transfer to next available [facility]. Thank you, Berta Keith, PharmD Clinical Pharmacist [facility] [phone] 04/29/2024, 12:46 PM * Telephone Encounter - Lawrence Singh CPhT - 04/29/2024 12:28 PM EST Patients insurance would like to inform the office that VITRON-C TABLET is denied because Medication is excluded from coverage under part D Law, Office will received exclusion letter. They will fax this info to the office, please review and resubmit if appropriate. Thank you, Orion Singh ([facility]) Therapeutic Massage Technician III [facility] 04/29/2024, 12:28 PM documented in this encounter Plan of Treatment Upcoming Encounters Date Type Department Care Team (Late st Contact Info) Description 05/11/2024 1:00 PM EST Office Visit Neurosurgery, [place] [address] [place] [address] Yann Jackson MD [address] [place] [address] 06/05/2024 1:20 PM EST Office Visit Family Medicine [address] [place] [address] [address] [place] [address] Scheduled Procedures Name [...] this encounter Medical Devices Implanted Type Area Health Information Technologist Device Identifier Shelf Expiration Date Model / Serial / Lot Coil Target 3d 7afz4ps - [id number] Implanted:Qty : 1 on 04/15/2024 by Yann Jackson MD at OR [facility] [place] N/A: Head ANNAMARIA : NEUROVASCULAR [id number] 12/16/2024 [id number] / / [id number] 6cm, Coil Swiftpac Implanted:Qty : 1 on 04/15/2024 by Yann Jackson MD at OR [facility] [place] N/A: Head [employer] 12/16/2028 [id number] / / [id number] 45cm, Coil Swiftpac Implanted:Qty : 1 on 04/15/2024 by Yann Jackson MD at OR [facility] N/A: Head [employer] 12/16/2028 [id number] / / [id number] 60cm, Coil Swiftpac Implanted:Qty : 1 on 04/15/2024 by Yann Jackson MD at OR [facility] N/A: Head [employer] 11/02/2028 [id number] / / [id number] Coil Target 3d [id number] - [id number] Implanted:Qty : 1 on 04/15/2024 by Yann Jackson MD at OR [facility] N/A: Head ANNAMARIA : NEUROVASCULAR [id number] 12/24/2024 [id number] 60 / / [id number] Coil Target 360 Soft 8jxy18sc - [id number] Implanted:Qty : 1 on 04/15/2024 by Yann Jackson MD at OR [facility] N/A: Head ANNAMARIA : NEUROVASCULAR [id number] 06/23/2025 [id number] 00 / / [id number] Coil Target 360 Ultra 8emi60jx - [id number] Implanted:Qty : 1 on 04/15/2024 by Yann Jackson MD at OR [facility] N/A: Head ANNAMARIA : NEUROVASCULAR [id number] 05/04/2026 [id number] 00 / / [id number] Coil Target 360 Ultra 3eyn6ug - [id number] Implanted:Qty : 1 on 04/15/2024 by Yann Jackson MD at OR [facility] N/A: Head ANNAMARIA : NEUROVASCULAR [id number] 02/03/2025 [id number] 80 / / [id number] 10cm, Coil Swiftpac Implanted:Qty : 2 on 04/15/2024 by Yann Jackson MD at OR [facility] N/A: Head [employer] 12/24/2028 [id number] / / [id number] 30cm, Coil Swiftpac Implanted:Qty : 1 on 04/15/2024 by Yann Jackson MD at OR [facility] N/A: Head [employer] 12/24/2028 [id number] / / [id number] 60cm, Coil Swiftpac Implanted:Qty : 1 on 04/15/2024 by Yann Jackson MD at OR [facility] N/A: Head [employer] 11/02/2028 [id number] / / [id number] 6cm, Coil Swiftpac Implanted:Qty : 1 on 04/15/2024 by Yann Jackson MD at OR [facility] N/A: Head [employer] 12/16/2028 [id number] / / [id number] Stent Vasc Hep 8mmx7.8i503kv - [id number] Implanted:Qty : 1 on 04/16/2024 by Samson Dennis MD at [facility] Left: Iliac [employer] [facility] [id number] 12/29/2026 [id number] / [id number] / [id number] documented as of this encounter Advance Directives [...] Discussed due to patient's condition Care Teams Catering Barista Relationship Specialty Start Date End Date Bharati Wang MD [address] [place] [address] [place] [address] PCP - General Family Medicine 10/02/21 documented as of this encounter
--- OUTSIDE RECORDS SUMMARY | 2024-07-03 23:05 | External Medical Summary ---
Author Name Unknown Address Unknown Organization K01:[facility] [address] [facility] [address] Laboratory Report Ordering Provider Test Date Status JAILENE FARIAS 04/29/2024 12:15:16 Final Discharge Order Observation Date Value Abnormality Reference (Units ) Status SYNC LEUKOCYTES IN BLOOD BY AUTOMATED COUNT 04/29/2024 12:15:16 7.64 4.00-10.80 (K/uL) Final Segs 04/29/2024 12:15:16 74.2 40.0-75.0 (%) Final Lymphs % 04/29/2024 12:15:16 15.3 Below low normal 18.0-42.0 (%) Final Monos 04/29/2024 12:15:16 8.1 1.0-11.0 (%) Final Eosinophils 04/29/2024 12:15:16 0.9 0.0-6.0 (%) Final Basos 04/29/2024 12:15:16 0.3 0.0-2.0 (%) Final Immature Granulocyte, Percent 04/29/2024 12:15:16 1.2 0.0-2.0 (%) Final Absolute Segs 04/29/2024 12:15:16 5.67 1.80-7.70 (K/uL) Final Lymphs, absolute 04/29/2024 12:15:16 1.17 1.00-4.80 (K/ul) Final Monos, Abs 04/29/2024 12:15:16 0.62 0.00-1.10 (K/uL) Final Eos, Abs 04/29/2024 12:15:16 0.07 0.00-0.70 (K/uL) Final Basos, Abs 04/29/2024 12:15:16 0.02 0.00-0.20 (K/uL) Final Immature Granulocytes, Number 04/29/2024 12:15:16 0.09 0.00-0.20 (K/uL) Final Performing Location [facility] [address] Lamar. [facility] [address]
--- OUTSIDE RECORDS SUMMARY | 2024-07-03 23:05 | External Medical Summary | Summary of Care ---
Author Name Unknown Organization [facility] Address [address] [place] [address] Phone [phone] Care Team Providers Care Metal Alloy Scientist Name Role Phone Bharati Wang MD Primary Care Provide r Encounter Details Date Type Department Care Team (Late st Contact Info) Description 04/15/2024 CardioDiagnostic Study Unspecified Department TamikaPola, DO [address] [place] [address] EKG Report Allergies Active Allergy Reactions Criticality Noted Date Comments Ampicillin 09/23/2003 Hives/trouble breathing Azithromycin 09/24/2003 hives and angioedema Ranitidine 10/29/2002 rash documented as of this encounter (statuses as of 04/26/2024) Medications VITAMIN D 2000 UNITS PO CAPS Take 2,000 Units by mouth daily with dinner. 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 Gastro-esophageal reflux disease without [...] as of this encounter (statuses as of 04/26/2024) Resolved Problems Problem Noted Date Diagnosed Date [...] as of this encounter (statuses as of 04/26/2024) Immunizations Name Administration Dates Next Due COVID-19 mRNA, LNP-s, No Pre serve, 2-Dose Series (Moderna) 07/24/2020,06/26/2020 COVID-19, mRNA, LNP-s, PF, B ooster, 100mcg/0.5mg (Moderna) 03/28/2021 Covid-19, Mrna, Lnp-s, Pf, B ivalent, 30 Mcg, IM, 12 yrs and above (Metaforic) 02/27/2022 Pneumococcal Conjugate Vacc, 13 Valent (Prevnar) [...] Job Start Date Job End Date 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 Not on file Not on file Not on file documented as of this encounter Procedure Notes * Jasiel Rae MD - 04/15/2024 12:03 PM ESTAssociated Order(s): EKG REPORT REASON FOR STUDY: PRE OP CONCLUSIONS: Sinus bradycardia Otherwise normal ECG When compared with ECG of 13-Sep-2010 11:54, No significant change was found Ventricular Rate: 55 Atrial Rate: 55 ID Interval: 156 QRS Duration: 84 QT/QTc: 432/413 ms P-R-T Brundidge: 15 : -29 : 9 degrees documented in this encounter Plan of Treatment Upcoming Encounters Date Type Department Care Team (Late st Contact Info) Description 04/29/2024 11:20 AM EST Office Visit Family [address] [phone] Bharati Wang MD [address] [place] [address] [place] [address] 05/11/2024 1:00 PM EST Office Visit Neurosurgery, [place] [address] [place] [address] Yann Jackson MD [address] [place] [address] 06/05/2024 1:20 PM EST Office Visit Family Medicine [address] [phone] Latha Shah CRNP [address] [place] [address] [place] [address] Scheduled Procedures Name Priority Associated Diagnoses Date/Ti me ESOPHAGOGASTRODUODENOSCOPY ( EGD), FLEXIBLE, TRANSORAL, DIAGNOSTIC Recall Contreras esophagus Health Maintenance Due Date Last Done Comments Alpha-1 Antitrypsin 1953 Adult Wellness Visit 2002 DISCUSS TOBACCO CESSATION (REFER TO SMARTSET #0887) 08/01/2018 08/01/2017 (Discussed) DTap/Tdap Vaccines (2 - [...] this encounter Medical Devices Implanted Type Area Air Support Operations Operator Device Identifier Shelf Expiration Date Model / Serial / Lot Coil Target 3d 3vwv7zt - [id number] Implanted:Qty : 1 on 04/15/2024 by Yann Jackson MD at OR [facility] N/A: Head ANNAMARIA : NEUROVASCULAR [id number] 12/16/2024 [id number] 60 / / [id number] 6cm, Coil Swiftpac Implanted:Qty : 1 on 04/15/2024 by Yann Jackson MD at OR [facility] N/A: Head [employer] 12/16/2028 [id number] / / [id number] 45cm, Coil Swiftpac Implanted:Qty : 1 on 04/15/2024 by Yann Jackson MD at OR [facility] N/A: Head [employer] 12/16/2028 [id number] / / [id number] 60cm, Coil Swiftpac Implanted:Qty : 1 on 04/15/2024 by Yann Jackson MD at OR [facility] N/A: Head [employer] 11/02/2028 [id number] / / [id number] Coil Target 3d 0unp2ro - [id number] Implanted:Qty : 1 on 04/15/2024 by Yann Jackson MD at OR [facility] N/A: Head ANNAMARIA : NEUROVASCULAR [id number] 12/24/2024 [id number] 60 / / [id number] Coil Target 360 Soft 6wtx44pu - [id number] Implanted:Qty : 1 on 04/15/2024 by Yann Jackson MD at OR [facility] N/A: Head ANNAMARIA : NEUROVASCULAR [id number] 06/23/2025 [id number] 00 / / [id number] Coil Target 360 Ultra 9oir85bd - [id number] Implanted:Qty : 1 on 04/15/2024 by Yann Jackson MD at OR [facility] N/A: Head ANNAMARIA : NEUROVASCULAR [id number] 05/04/2026 [id number] 00 / / [id number] Coil Target 360 Ultra 1nxm4iy - [id number] Implanted:Qty : 1 on 04/15/2024 by Yann Jackson MD at OR [facility] N/A: Head ANNAMARIA : NEUROVASCULAR [id number] 02/03/2025 [id number] 80 / / [id number] 10cm, Coil Swiftpac Implanted:Qty : 2 on 04/15/2024 by Yann Jackson MD at OR [facility] N/A: Head [employer] 12/24/2028 [id number] / / [id number] 30cm, Coil Swiftpac Implanted:Qty : 1 on 04/15/2024 by Yann Jackson MD at OR [facility] N/A: Head [employer] 12/24/2028 [id number] / / [id number] 60cm, Coil Swiftpac Implanted:Qty : 1 on 04/15/2024 by Yann Jackson MD at OR [facility] N/A: Head [employer] 11/02/2028 [id number] / / [id number] 6cm, Coil Swiftpac Implanted:Qty : 1 on 04/15/2024 by Yann Jackson MD at OR [facility] N/A: Head [employer] 12/16/2028 [id number] / / [id number] Stent Vasc Hep 8mmx7.4n393ab - [id number] Implanted:Qty : 1 on 04/16/2024 by Samson Dennis MD at OR [facility] Left: Iliac [employer] [id number] 12/29/2026 [id number] 2A / [id number] / [id number] documented as of this encounter Procedures Procedure Name Priority Date/Time Associated Diagnosis Comments EKG REPORT 04/15/2024 12:03 PM EST documented in this encounter Results * EKG REPORT (04/15/2024 12:03 PM EST) 04/15/2024 12:0 3 PM EST Narrative Procedure Note Jasiel Rae MD - 04/15/2024 12:03 PM EST REASON FOR STUDY: PRE OP CONCLUSIONS: Sinus bradycardia Otherwise normal ECG When compared with ECG of 13-Sep-2010 11:54, No significant change was found Ventricular Rate: 55 Atrial Rate: 55 ID Interval: 156 QRS Duration: 84 QT/QTc: 432/413 ms P-R-T Brundidge: 15 : -29 : 9 degrees Pola Lundberg DO EKG Final Resul t documented in this encounter Additional Health Concerns Infection Onset [...] 04/15/2024 6:20 PM 04/18/2024 5:18 PM This orde r reflects the patients [...] Discussed due to patient's condition Care Teams Metal Alloy Scientist Relationship Specialty Start Date End Date Bharati Wang MD [address] [place] [address] [place] [phone] PCP - General Family Medicine 10/02/21 documented as of this encounter
--- OUTSIDE RECORDS SUMMARY | 2024-07-03 23:05 | External Medical Summary | Summary of Care ---
Author Name Unknown Organization [facility] Address [address] [place] [address] Phone [phone] Care Team Providers Care Doctor Of Dental Medicine Name Role Phone Bharati Wang MD Primary Care Provide r Encounter Details Date Type Department Care Team (Late st Contact Info) Description 04/27/2024 Orders Only PATIENT PORTAL DO NOT DELETE THIS DEPT USED BY [place] [id number] Allergies Active Allergy Reactions Criticality Noted Date Comments Ampicillin 09/23/2003 Hives/trouble breathing Azithromycin 09/24/2003 hives and angioedema Ranitidine 10/29/2002 rash documented as of this encounter (statuses as of 04/27/2024) Medications VITAMIN D 2000 UNITS PO CAPS [...] as of this encounter (statuses as of 04/27/2024) Active Problems Problem Noted Date Diagnosed Date [...] as of this encounter (statuses as of 04/27/2024) Resolved Problems Problem Noted Date Diagnosed Date [...] fracture of humerus 08/07/2019 01/22/2024 Overview (08/10/2019): [place] [facility] Bilateral sciatica 06/01/2019 Spasm of muscle [...] as of this encounter (statuses as of 04/27/2024) Immunizations Name Administration Dates Next Due COVID-19 mRNA, LNP-s, No Pre serve, 2-Dose Series (Moderna) 07/24/2020,06/26/2020 COVID-19, mRNA, LNP-s, PF, B ooster, 100mcg/0.5mg (Moderna) 03/28/2021 Covid-19, Mrna, Lnp-s, Pf, B ivalent, 30 Mcg, IM, 12 yrs and above (HeyStaks) 02/27/2022 Pneumococcal Conjugate Vacc, 13 Valent (Prevnar) [...] do you feel lonely or isolated from ose around you? 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 Not on file Not on file Not on file documented as of this encounter Plan of Treatment Upcoming Encounters Date Type Department Care Team (Late st Contact Info) Description 04/29/2024 11:20 AM EST Office Visit Family Medicine [address] [phone] Bharati Wang MD [address] [place] [address] [place] [address] 05/11/2024 1:00 PM EST Office Visit [facility] [address] [place] [address] Yann Jackson MD [address] [place] [address] 06/05/2024 1:20 PM EST Office Visit [address] [phone] Latha Shah CRNP [address] [place] [address] [place] [address] Scheduled Procedures Name Priority Associated Diagnoses Date/Ti [...] this encounter Medical Devices Implanted Type Area Payroll Tax Analyst Device Identifier Shelf Expiration Date Model / Serial / Lot Coil Target 3d 8inc3nb - [id number] Implanted:Qty : 1 on 04/15/2024 by Yann Jackson MD at OR [facility] [place] N/A: Head ANNAMARIA : NEUROVASCULAR [id number] 12/16/2024 [id number] 60 / / [id number] 6cm, Coil Swiftpac Implanted:Qty : 1 on 04/15/2024 by Yann Jackson MD at OR [facility] [place] N/A: Head [employer] 12/16/2028 [id number] / / [id number] 45cm, Coil Swiftpac Implanted:Qty : 1 on 04/15/2024 by Yann Jackson MD at OR [facility] [place] N/A: Head [employer] 12/16/2028 [id number] / / [id number] 60cm, Coil Swiftpac Implanted:Qty : 1 on 04/15/2024 by Yann Jackson MD at OR [facility] [place] N/A: Head [employer] 11/02/2028 [id number] / / [id number] Coil Target 3d 4ykk6rg - [id number] Implanted:Qty : 1 on 04/15/2024 by Yann Jackson MD at OR [facility] [place] N/A: Head ANNAMARIA : NEUROVASCULAR [id number] 12/24/2024 [id number] 60 / / [id number] Coil Target 360 Soft 4nep74tf - [id number] Implanted:Qty : 1 on 04/15/2024 by Yann Jackson MD at OR [facility] [place] N/A: Head ANNAMARIA : NEUROVASCULAR [id number] 06/23/2025 [id number] / / [id number] Coil Target 360 Ultra 4pgg72dr - [id number] Implanted:Qty : 1 on 04/15/2024 by Yann Jackson MD at OR [facility] [place] N/A: Head ANNAMARIA : NEUROVASCULAR [id number] 05/04/2026 [id number] / / [id number] Coil Target 360 Ultra 8jeu8xb - [id number] Implanted:Qty : 1 on 04/15/2024 by Yann Jackson MD at OR [facility] [place] N/A: Head ANNAMARIA : NEUROVASCULAR [id number] 02/03/2025 [id number] 80 / / [id number] 10cm, Coil Swiftpac Implanted:Qty : 2 on 04/15/2024 by Yann Jackson MD at OR [facility] [place] N/A: Head [employer] 12/24/2028 [id number] / / [id number] 30cm, Coil Swiftpac Implanted:Qty : 1 on 04/15/2024 by Yann Jackson MD at OR [facility] N/A: Head [employer] 12/24/2028 [id number] / / [id number] 60cm, Coil Swiftpac Implanted:Qty : 1 on 04/15/2024 by Yann Jackson MD at OR [facility] N/A: Head [employer] 11/02/2028 [id number] / / [id number] 6cm, Coil Swiftpac Implanted:Qty : 1 on 04/15/2024 by Yann Jackson MD at OR [facility] [place] N/A: Head [employer] 12/16/2028 [id number] / / [id number] Stent Vasc Hep 8mmx7.0d432tk - [id number] Implanted:Qty : 1 on 04/16/2024 by Samson Dennis MD at OR [facility] Left: Iliac [employer] [id number] 12/29/2026 [id number] / [id number] / [id number] documented as of this encounter Advance Directives [...] Discussed due to patient's condition Care Teams Doctor Of Dental Medicine Relationship Specialty Start Date End Date Bharati Wang MD [address] [place] [address] [place] [phone] PCP - General Family Medicine 10/02/21 documented as of this encounter
--- OUTSIDE RECORDS SUMMARY | 2024-07-03 23:05 | External Medical Summary | Summary of Care ---
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 Not on file Not on file Not on file documented as of this encounter Miscellaneous Notes * Telephone Encounter - Bharati Wnag MD - 04/29/2024 5:24 PM EST Spoke to pt and her they already completed the Keflex - per pt she was given 4 capsules on discharge (from [facility]) - and pt completed it * Telephone Encounter - Lina Robles RP - 04/29/2024 4:21 PM ESTPending Prescriptions: Disp Refills Cephalexin 500 MG Oral Capsule (Keflex) 4 Caps*0 Sig: Take 1 Capsule by mouth every 6 hours. * Telephone Encounter - Lina Robles RPh - 04/29/2024 4:20 PM EST Medication prescribed from ED/Admission on 04/24/2024. Patient did not order picker and asking for new rx to be send to pharmacy. Pending Prescriptions: Disp Refills Cephalexin 500 MG Oral Capsule (Keflex) 4 Caps*0 Sig: Take 1 Capsule by mouth every 6 hours. Thank you, Lina Robles [facility] Clinical Pharmacist [facility] ([facility]) 04/29/24 4:21 PM [phone] * Telephone Encounter - Yolanda Shaw PHARM Tech - 04/29/2024 3:36 PM EST Medication is in system. Pt is requesting reroute. Please reroute Rx to [facility], [address] [place]. Pending Prescriptions: Disp Refills Cephalexin 500 MG Oral Capsule (Keflex) 4 Caps*0 Sig: Take 1 Capsule by mouth every 6 hours. Last Visit: Visit date not found (in office), Visit date not found (telemedicine) Visit date not found If no future appointments scheduled, and last appointment is greater than a year ago, please schedule patient for a follow-up appointment Last date the medication was ordered: 04/24/2024 Patient Phone Numbers Labs: Lab Results Component Value Date/Time CREAT 0.8 04/24/2024 07:47 AM CREAT 0.85 03/06/2022 12:00 AM CREAT 1.0 05/21/2019 01:17 PM POTASSIUM 3.9 04/24/2024 07:47 AM POTASSIUM 4.0 04/15/2024 03:23 PM POTASSIUM 4.2 03/06/2022 12:00 AM POTASSIUM 4.3 05/21/2019 01:17 PM TSH 2.41 07/15/2010 10:25 AM LDL 39 04/02/2024 10:20 AM LDL 82 07/24/2017 08:28 AM LDL NOT APPLICABLE 07/24/2017 08:28 AM ALT 17 04/24/2024 07:47 AM ALT 19 07/24/2017 08:28 AM documented in this encounter Plan of Treatment Upcoming Encounters Date Type Department Care Team (Late st Contact Info) Description 05/11/2024 1:00 PM EST Office Visit Neurosurgery, [facility] [address] [place] [address] Yann Jackson MD [address] [place] [phone] 05/25/2024 12:40 PM EST Office Visit [address] [phone] Bharati Wang MD [address] [place] [address] [place] [address] 06/05/2024 1:20 PM EST Office Visit [address] [phone] Latha Shah CRNP [address] [place] [address] [place] [address] Scheduled Procedures Name Priority Associated Diagnoses Date/Ti [...] this encounter Medical Devices Implanted Type Area Disability Representative Device Identifier Shelf Expiration Date Model / Serial / Lot Coil Target 3d 4gqb3ru - [id number] Implanted:Qty : 1 on 04/15/2024 by Yann Jackson MD at OR [facility] N/A: Head ANNAMARIA : NEUROVASCULAR [id number] 12/16/2024 [id number] 60 / / [id number] 6cm, Coil Swiftpac Implanted:Qty : 1 on 04/15/2024 by Yann Jackson MD at OR [facility] N/A: Head [employer] 12/16/2028 [id number] / / [id number] 45cm, Coil Swiftpac Implanted:Qty : 1 on 04/15/2024 by Yann Jackson MD at OR [facility] N/A: Head [employer] 12/16/2028 [id number] / / [id number] 60cm, Coil Swiftpac Implanted:Qty : 1 on 04/15/2024 by Yann Jackson MD at OR [facility] N/A: Head [employer] 11/02/2028 [id number] / / [id number] Coil Target 3d 1idj3ck - [id number] Implanted:Qty : 1 on 04/15/2024 by Yann Jackson MD at OR [facility] N/A: Head ANNAMARIA : NEUROVASCULAR [id number] 12/24/2024 [id number] 60 / / [id number] Coil Target 360 Soft 6efy67dm - [id number] Implanted:Qty : 1 on 04/15/2024 by Yann Jackson MD at OR [facility] N/A: Head ANNAMARIA : NEUROVASCULAR [id number] 06/23/2025 [id number] 00 / / [id number] Coil Target 360 Ultra 8cfm48td - [id number] Implanted:Qty : 1 on 04/15/2024 by Yann Jackson MD at OR [facility] N/A: Head ANNAMARIA : NEUROVASCULAR [id number] 05/04/2026 [id number] 00 / / [id number] Coil Target 360 Ultra 7rpe7rq - [id number] Implanted:Qty : 1 on 04/15/2024 by Yann Jackson MD at OR [facility] N/A: Head ANNAMARIA : NEUROVASCULAR [id number] 02/03/2025 [id number] 80 / / [id number] 10cm, Coil Swiftpac Implanted:Qty : 2 on 04/15/2024 by Yann Jackson MD at OR [facility] N/A: Head [employer] 12/24/2028 [id number] / / [id number] 30cm, Coil Swiftpac Implanted:Qty : 1 on 04/15/2024 by Yann Jackson MD at OR [facility] N/A: Head [employer] 12/24/2028 [id number] / / [id number] 60cm, Coil Swiftpac Implanted:Qty : 1 on 04/15/2024 by Yann Jackson MD at OR [facility] N/A: Head [employer] 11/02/2028 [id number] / / [id number] 6cm, Coil Swiftpac Implanted:Qty : 1 on 04/15/2024 by Yann Jackson MD at OR [facility] N/A: Head [employer] 12/16/2028 [id number] / / [id number] Stent Vasc Hep 8mmx7.9r134du - [id number] Implanted:Qty : 1 on 04/16/2024 by Samson Dennis MD at OR [facility] Left: Iliac [employer] [id number] 12/29/2026 [id number] / [id number] / [id number] documented as of this encounter Advance Directives [...] Discussed due to patient's condition Care Teams Solar Sales Manager Relationship Specialty Start Date End Date Bharati Wang MD [address] [place] [address] [place] [address] PCP - General Family Medicine 10/02/21 documented as of this encounter
--- OUTSIDE RECORDS SUMMARY | 2024-07-03 23:05 | External Medical Summary ---
Author Name Unknown Address Unknown Organization K01:[facility] - [address] [place] [address] Laboratory Report Ordering Provider Test Date Status BAUTISTA KELLY 04/29/2024 12:15:16 Negra l Observation Date Value Abnormality Reference (Units ) Status BUN 04/29/2024 12:15:16 18 6-20 (mg/dL) Final Creatinine 04/29/2024 12:15:16 0.8 0.5-1.0 (mg/dL) Final Glomerular filtration rate/1.73 sq M.predicted [Volume Rate/Area] in Serum, Plasma or Blood by Creatinine-based formula (CKD-EPI) 04/29/2024 12:15:16 70 >=60 (mL/min) Final eGFR is calculated based on the CKD-EPI 2020 equation. Sodium 04/29/2024 12:15:16 140 135-146 (m mol/L) Final Potassium 04/29/2024 12:15:16 4.3 3.5-5.1 (m mol/L) Final Cl 04/29/2024 12:15:16 105 98-107 (mm ol/L) Final CO2 04/29/2024 12:15:16 23 22-32 (mmo l/L) Final Anion gap 04/29/2024 12:15:16 12 7-15 (mmol /L) Final Glucose 04/29/2024 12:15:16 101 70-120 (mg /dL) Final Calcium 04/29/2024 12:15:16 9.1 8.4-10.2 ( mg/dL) Final Performing Location [facility] [place] - [address] [place] [address]
--- OUTSIDE RECORDS SUMMARY | 2024-07-03 23:05 | External Medical Summary | Summary of Care ---
Author Name Unknown Organization [facility] Address [address] [place] [address] Phone [phone] Care Team Providers Care Cigar Head Stringer Name Role Phone Bharati Wang MD Primary Care Provide r Reason for Visit * Reason Onset Date Comments Hospital Follow-Up 04/30/2024 Encounter Details Date Type Department Care Team (Late st Contact Info) Description 04/30/2024 Telephone Access Center, [place] [address] [facility] *DO NOT REMOVE THIS DEPARTMENT* [place] [address] Services, Scheduling [address] [phone] Hospital Follow-Up Allergies Active Allergy Reactions Criticality [...] fracture of humerus 08/07/2019 01/22/2024 Overview (08/10/2019): [facility] Bilateral sciatica 06/01/2019 4 Spasm of [...] Hd (Fluzone Hd) 02/28/2023,02/22/2022,02/20/2021 Seasonal Influenza, Quadriva enriquet, No Preserve, IM 02/05/2017,03/22/2016 TD, Preservative Free [...] Job Start Date Job End Date 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 Pt lives in [place] documented in this encounter Plan of Treatment Upcoming Encounters Date Type Department Care Team (Late st Contact Info) Description 05/11/2024 1:00 PM EST [facility] [address] [place] [address] Yann Jackson MD [address] [place] [address] 05/25/2024 12:40 PM EST Office Visit Family [address] [phone] Bharati Wang MD [address] [place] [address] [place] [address] 06/05/2024 1:20 PM EST Office Visit Family [address] [phone] Latha Shah CRNP [address] [place] [address] [place] [address] Scheduled Procedures Name Priority Associated Diagnoses Date/Ti me ESOPHAGOGASTRODUODENOSCOPY ( EGD), FLEXIBLE, TRANSORAL, DIAGNOSTIC Recall Contreras esophagus Health Maintenance Due Date Last Done Comments Alpha-1 Antitrypsin 1953 Adult Wellness Visit 2002 DISCUSS TOBACCO CESSATION (REFER TO SMARTSET #6288) 08/01/2018 08/01/2017 (Discussed) DTap/Tdap Vaccines (2 - [...] this encounter Medical Devices Implanted Type Area Financial Services Professional Device Identifier Shelf Expiration Date Model / Serial / Lot Coil Target 3d 1ayj4wl - [id number] Implanted:Qty : 1 on 04/15/2024 by Yann Jackson MD at [place] [facility] [place]/A: Head ANNAMARIA : NEUROVASCULAR [id number] 12/16/2024 [id number] 60 / / [id number] 6cm, Coil Swiftpac Implanted:Qty : 1 on 04/15/2024 by Yann Jackson MD at [place] [facility] N/A: Head [employer] 12/16/2028 [id number] / / [id number] 45cm, Coil Swiftpac Implanted:Qty : 1 on 04/15/2024 by Yann Jackson MD at OR [facility] N/A: Head [employer] 12/16/2028 [id number] / / [id number] 60cm, Coil Swiftpac Implanted:Qty : 1 on 04/15/2024 by Yann Jackson MD at OR [facility] N/A: Head [employer] 11/02/2028 [id number] / / [id number] Coil Target 3d 1mqf5pq - [id number] Implanted:Qty : 1 on 04/15/2024 by Yann Jackson MD at OR [facility] N/A: Head ANNAMARIA : NEUROVASCULAR [id number] 12/24/2024 [id number] 60 / / [id number] Coil Target 360 Soft 9yqq36zl - [id number] Implanted:Qty : 1 on 04/15/2024 by Yann Jackson MD at OR [facility] N/A: Head ANNAMARIA : NEUROVASCULAR [id number] 06/23/2025 [id number] 00 / / [id number] Coil Target 360 Ultra 0zkq70mb - [id number] Implanted:Qty : 1 on 04/15/2024 by Yann Jackson MD at [place] [facility] N/A: Head ANNAMARIA : NEUROVASCULAR [id number] 05/04/2026 [id number] 00 / / [id number] Coil Target 360 Ultra 9lem1jj - [id number] Implanted:Qty : 1 on 04/15/2024 by Yann Jackson MD at [place] [facility] N/A: Head ANNAMARIA : NEUROVASCULAR [id number] 02/03/2025 [id number] 80 / / [id number] 10cm, Coil Swiftpac Implanted:Qty : 2 on 04/15/2024 by Yann Jackson MD at [place] [facility] N/A: Head [employer] 12/24/2028 [id number] / / [id number] 30cm, Coil Swiftpac Implanted:Qty : 1 on 04/15/2024 by Yann Jackson MD at OR [facility] N/A: Head [employer] 12/24/2028 [id number] / / [id number] 60cm, Coil Swiftpac Implanted:Qty : 1 on 04/15/2024 by Yann Jackson MD at OR [facility] N/A: Head [employer] 11/02/2028 [id number] / / [id number] 6cm, Coil Swiftpac Implanted:Qty : 1 on 04/15/2024 by Yann Jackson MD at OR [facility] N/A: Head [employer] 12/16/2028 [id number] / / [id number] Stent Vasc Hep 8mmx7.4z180ty - [id number] Implanted:Qty : 1 on 04/16/2024 by Samson Dennis MD at [place] [facility] Left: Iliac [employer] [id number] 12/29/2026 [id number] 2A / [id number] / [id number] documented as of this encounter Advance Directives [...] Discussed due to patient's condition Care Teams Cigar Head Stringer Relationship Specialty Start Date End Date Bharati Wang MD [address] [place] [address] [place] [address] PCP - General Family Medicine 10/02/21 documented as of this encounter
--- OUTSIDE RECORDS SUMMARY | 2024-07-03 23:05 | External Medical Summary | Summary of Care ---
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 Not on file Not on file Not on file documented as of this encounter Plan of Treatment Upcoming Encounters Date Type Department Care Team (Late st Contact Info) Description 05/11/2024 1:00 PM EST Office Visit [facility] [address] [place] [address] Yann Jackson MD [address] [place] [address] 06/05/2024 1:20 PM EST Office Visit Family Medicine [address] [phone] [address] [place] [address] Pending Results Name Type Priority Associated Diagnoses Date /Time CBC WITH WBC DIFFERENTIAL Lab Routine Acute blood loss anemia 04/29/2024 12:15 PM EST CBC Lab Routine Acute blood loss anemia 04/29/2024 12:15 PM EST DIFFERENTIAL, AUTOMATED Lab Routine Acute blood loss anemia 04/29/2024 12:15 PM EST Scheduled Procedures Name Priority Associated Diagnoses Date/Ti me ESOPHAGOGASTRODUODENOSCOPY ( EGD), FLEXIBLE, TRANSORAL, DIAGNOSTIC Recall Contreras esophagus Health Maintenance Due Date Last Done Comments Alpha-1 Antitrypsin 1953 Adult Wellness Visit 2002 DISCUSS TOBACCO CESSATION (REFER TO SMARTSET #6399) 08/01/2018 08/01/2017 (Discussed) DTap/Tdap Vaccines (2 - [...] this encounter Medical Devices Implanted Type Area Burglar Alarm Assembler Device Identifier Shelf Expiration Date Model / Serial / Lot Coil Target 3d [id number] - [id number] Implanted:Qty : 1 on 04/15/2024 by Yann Jackson MD at OR [facility] N/A: Head ANNAMARIA : NEUROVASCULAR [id number] 12/16/2024 [id number] 60 / / [id number] 6cm, Coil Swiftpac Implanted:Qty : 1 on 04/15/2024 by Yann Jackson MD at OR [facility] N/A: Head [employer] 12/16/2028 [id number] / / [id number] 45cm, Coil Swiftpac Implanted:Qty : 1 on 04/15/2024 by Yann Jackson MD at OR [facility] N/A: Head [employer] 12/16/2028 [id number] / / [id number] 60cm, Coil Swiftpac Implanted:Qty : 1 on 04/15/2024 by Yann Jackson MD at OR [facility] N/A: Head [employer] 11/02/2028 [id number] / / [id number] Coil Target 3d 1xiz9mz - [id number] Implanted:Qty : 1 on 04/15/2024 by Yann Jackson MD at OR [facility] N/A: Head ANNAMARIA : NEUROVASCULAR [id number] 12/24/2024 [id number] 60 / / [id number] Coil Target 360 Soft 1zvm48oi - [id number] Implanted:Qty : 1 on 04/15/2024 by Yann Jackson MD at OR [facility] N/A: Head ANNAMARIA : NEUROVASCULAR [id number] 06/23/2025 [id number] 00 / / [id number] Coil Target 360 Ultra 6vcv17vc - [id number] Implanted:Qty : 1 on 04/15/2024 by Yann Jackson MD at OR [facility] N/A: Head ANNAMARIA : NEUROVASCULAR [id number] 05/04/2026 [id number] 00 / / [id number] Coil Target 360 Ultra 4bzu5ed - [id number] Implanted:Qty : 1 on 04/15/2024 by Yann Jackson MD at OR [facility] N/A: Head ANNAMARIA : NEUROVASCULAR [id number] 02/03/2025 [id number] 80 / / [id number] 10cm, Coil Swiftpac Implanted:Qty : 2 on 04/15/2024 by Yann Jackson MD at OR [facility] N/A: Head [employer] 12/24/2028 [id number] / / [id number] 30cm, Coil Swiftpac Implanted:Qty : 1 on 04/15/2024 by Yann Jackson MD at OR [facility] N/A: Head [employer] 12/24/2028 [id number] / / [id number] 60cm, Coil Swiftpac Implanted:Qty : 1 on 04/15/2024 by Yann Jackson MD at OR [facility] N/A: Head [employer] 11/02/2028 [id number] / / [id number] 6cm, Coil Swiftpac Implanted:Qty : 1 on 04/15/2024 by Yann Jackson MD at OR [facility] N/A: Head [employer] 12/16/2028 [id number] / / [id number] Stent Vasc Hep 8mmx7.3m870ml - [id number] Implanted:Qty : 1 on 04/16/2024 by Samson Dennis MD at OR [facility] Left: Iliac [employer] [id number] 12/29/2026 [id number] / [id number] / [id number] documented as of this encounter Visit Diagnoses Diagnosis Acute blood loss anemia Acute posthemorrhagic anemia documented in this encounter Advance Directives * [...] Discussed due to patient's condition Care Teams Carpet Measurer Relationship Specialty Start Date End Date Bharati Wang MD [address] [place] [address] [place] [phone] PCP - General Family Medicine 10/02/21 documented as of this encounter
--- OUTSIDE RECORDS SUMMARY | 2024-07-03 23:05 | External Medical Summary | Summary of Care ---
Author Name Unknown Organization [facility] Address [address] [place] [address] Phone [phone] Care Team Providers Care Special Education Assistant Name Role Phone Bharati Wang MD Primary Care Provide r Reason for Referral * Medication Prior Authorization - Pending Review Specialty Diagnoses / Procedures Referred By Contcharanjit t Referred To Contact Diagnoses Anemia, unspecified type Bharati Wang MD [address] [place] [address] [place] [address] Phone: tel: fax: Referral ID Status Reason Start Date Expiration Date V isits Requested Visits Authorized [id number] Pending Review 999 999 Reason for Visit * Reason Onset Date Comments Hospital Follow-Up Hospital Follow-Up 04/29/2024 Encounter Details Date Type Department Care Team (Late st Contact Info) Description 04/29/2024 11:20 AM EST Office Visit Family Medicine [place] [facility] [address] [place] [address] [place] [phone] Bharati Wang MD [address] [place] [address] [place] [address] HTN, goal below 150/90*; Hospital discharge follow-up; Anemia, unspecified type; Carotid-cavernous fistula; Retroperitoneal bleeding; Thromboembolus (HCC) Allergies Active Allergy Reactions Criticality Noted Date [...] fracture of humerus 08/07/2019 01/22/2024 Overview (08/10/2019): [facility] Bilateral sciatica 06/01/2019 4 Spasm of [...] No 04/20/2024 Does the household have a [facility] source of income? 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 Not on file Not on file Not on file documented as of this encounter Last Filed Vital Signs Vital Sign Reading Time Taken Comments Blood Pressure 122/66 04/29/2024 11:25 AM EST Pulse 81 04/29/2024 11:25 AM EST Temperature 35.9 C (96.6 F) 04/29/2024 1 1:25 AM EST Respiratory Rate - - Oxygen Saturation 95% 04/29/2024 11: 25 AM EST Inhaled Oxygen Concentration - - Weight 73.8 kg (162 lb 12.8 oz) 024 11:25 AM EST Height - - Body Mass Index 27.94 04/22/2024 1:03 PM EST documented in this encounter Progress Notes * Bharati Wang MD - 04/29/2024 11:45 AM EST Subjective: HPI: Josefa Ramírez is a 88 year old female with hx of mild COPD (daily smokers), HLD, Contreras's esophagus, GERD, HTN, IBS, CKD II-III, B/L carotid AA stenosis, Insomnia, DDD, hx of back surgery (T11-L1 decompression and Fusion ), mild mitral regurgitation seen for Pt was admitted to the hospital from 04/21-04/24 -UTI with concerning for sepsis, Anemia 2/2 retroperitoneal hematoma requiring 1 unit of PRBC - pt was evaluated by neurosurgery and ophthalmology: no surgical intervention - discharged on kelfex - lisinopril was held on discharge Pt also had another admission prior to this Operations & Procedures: 04/15/24 Dr. Jackson: Cervical and cerebral angiogram Coil embolization of carotid cavernous fistula (intracranial embolization). 04/16/24 Dr. Dennis: Abdominal aortogram, Left lower extremity angiography, and Open left iliac catheter thromboembolectomy via groin incision. Left external iliac viabahn stent grafting of dissection flap Complications: flap dissection and thromboembolism requiring vascular surgery COPIED HOSPITAL COURSE FROM DISCHARGE SUMMARY: Ms. Ramírez presented with concerns of hypotension and left eye swelling, diplopia & blurriness. She was admitted to the hospital with the concerns for sepsis 2/2 UTI and drop in hb likely 2/2 retroperitoneal hematoma in the setting of recent vascular procedure while being on Anticoagulation with eliquis. 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 She was started on IV ceftriaxone which was deescalated later to keflex for total of 5 days. [place] to [place] [facility], she reportedly received one unit of pRBC, however her hemoglobin remained stable and above transfusion threshold during this admission. She was evaluated by ophthalmology who was not concerned for increase in intraocular pressure and attributed ocular symptoms due to her cavernoussinus fistula. She was evaluated by neurosurgery who did not offer any surgical intervention and were okay with restarting her anticoagulation which was held due to her anemia. Vascular surgery also evaluated her and considered the RPH to be chronic and were okay with resuming eliquis. She was restarted on eliquis, her hemodynamics and hb were monitored. She remained stable and is now ready for discharge Today: - still taking eliquis and plavix - not taking lisinopril - completed the antibiotic - denied any fever - still unable to open her L eyelid ---- but the vision is better per pt - pt still feels tired - MCINTOSH is slightly better - still having L groin soreness ---- no worsening swelling Patient Active Problem List Diagnosis Irritable bowel [...] Acute lower limb ischemia Retroperitoneal hematoma Hyperbilirubinemia Current Outpatient Medications Medication Sig Dispense Refill [...] BY MOUTH EVERY DAY 90 Tablet 3 Apixaban 5 MG Oral Tablet (Eliquis) Take 2 Tablets by mouth 2 times a day for 7 days, THEN 1 Tablet2 times a day. 90 Tablet 1 Clopidogrel Bisulfate 75 MG Oral Tablet (pLAVix) Take 1 Tablet by mouth in the morning. 30 Tablet 5 Vitron-C 65-125 MG Oral Tablet (Iron-Vitamin C 65-125 mg per tab) Take 1 Tablet by mouth in the morning. 90 Tablet 0 No current facility-administered medications for [...] of humerus, left, closed, initial encounter 08/07/2019 [facility] HTN, goal below 130/80 04/19/2009 Hypercalcemia [...] ARTERY performed by Samson Dennis MDat [place] [facility] BLEPHAROPTOSIS, FRONTALIS, REPAIR Bilateral 08/10/2015 CAROTID (INTERNAL) ARTERY CATHETHER PLACEMENT Bilateral 03/27/2024 CATHETER PLACEMENT INTERNAL CAROTID ARTERY RADIAL ACCESS performed by Yann Jackson MD at [place] [facility] CAROTID (INTERNAL) ARTERY CATHETHER PLACEMENT Bilateral 04/15/2024 CATHETER PLACEMENT INTERNAL CAROTID ARTERY performed by Yann Jackson MD at [place] [facility] CAROTID (EXTERNAL) ARTERY CATHETHER PLACEMENT Bilateral 03/27/2024 CATHETER PLACEMENT EXTERNAL CAROTID ARTERY performed by Yann Jackson MD at [place] [facility] CAROTID (EXTERNAL) ARTERY CATHETHER PLACEMENT Bilateral 04/15/2024 CATHETER PLACEMENT EXTERNAL CAROTID ARTERY performed by Yann Jackson MD at [place] [facility] CATHETER OCCLUSION/EMBOLIZATION,RERECORDING MIXER N/A 04/15/2024 TRANSCATHETER PERMANENT ARTERIAL OCCLUSION CENTRAL NERVOUS SYSTEM performed by Yann Jackson MD at [place] [facility] CERVICAL LAMINOPLAST W/DECOMP,RECON 06/17/2006 Dr. Potts COLONOSCOPY, DIAGNOSTIC (RECTUM) 03/08/2015 adenomatous polyps, repeat 5 yrs/COLONOSCOPY FLEXIBLE PROXIMAL DIAGNOSTIC performed by Rene Elise MD at ENDOSCOPY [facility] COLONOSCOPY, DIAGNOSTIC (RECTUM) 07/27/2020 benign adenomatous polyps / COLONOSCOPY FLEXIBLE PROXIMAL DIAGNOSTIC performed by Rene Elise MD at ENDOSCOPY [facility] COLONOSCOPY, GI REFERRAL OP 01/16/2005 Dr. Mcneil - diverticulosis CT SINUSES W WO CONTRAST 06/06/2006 air fluid levels in bilateral maxillary and sphenoid sinuses, frontal sinus opacified, mucosal thickening of ethmoids, left osteomeatal complex opacified, left nasal septal deviation EGD, FLEXIBLE, DIAGNOSTIC 11/14/2020 [place], hiatal hernia, repeat 6 mo / ESOPHAGOGASTRODUODENOSCOPY (EGD), FLEXIBLE, TRANSORAL, DIAGNOSTIC performed by Santi Edwards MD at ENDOSCOPY [facility] EGD, FLEXIBLE, DIAGNOSTIC 08/29/2021 [place], hiatal hernia, repeat 2 yrs / ESOPHAGOGASTRODUODENOSCOPY (EGD), FLEXIBLE, TRANSORAL, DIAGNOSTIC performed by Santi Edwards MD at ENDOSCOPY [facility] EGD, FLEXIBLE, DIAGNOSTIC 09/30/2020 Bleeding esophagitis with underlying Contreras's esophagus, repeat 6 wks / INPT [facility] EGD, FLEXIBLE, W/BIOPSY 08/16/2006 path-no abnormalities FULL PULMONARY FUNCTION TEST 05/2000 HEMORRHOIDECTOMY, SIMPLE, 1 COLUMN Remote past ILIAC ART. REVASC W/ STENT+ANGIOPLASTY 04/16/2024 ILIAC ARTERY REVASC W/ STENT+ANGIOPLASTY performed by Samson Dennis MD at [facility] INTRACRANIAL ARTERIES CATH PLACEMENT Bilateral 04/15/2024 CATHETER PLACEMENT EACH INTRACRANIAL BRANCH OF THE INTERNAL CAROTID OR VERTEBRAL ARTERIES performedby Yann Jackson MD at [facility] IR ARTERIOGRAM EXTREMITY UNILATERAL 04/16/2024 IMAGING SUPERVISION & INTERPRETATION EXTREMITY UNILATERAL performed by Samson Dennis MD at [facility] L-/S-SPINE PARAVERTEBRAL FACET INJ,1 LEVEL 02/09/2019 L-/S-SPINE PARAVERTEBRAL FACET INJ, 1 LEVEL performed by Chris Caballero DO at [facility] L-/S-SPINE PARAVERTEBRL FACET INJ,2 LEVELS 02/09/2019 L-/S-SPINE PARAVERTEBRAL FACET INJ, 2 LEVELS performed by [place] Dioni Caballero DO at [facility] LUMBAR DISC ARTHROPLAST,REMV,ADDL INTERSPCE 01/2010 Dr Potts LUMBAR SPINE FUSION W/BONE GRAFT 02/23/2005 Dr. Potts - [facility] LUMBAR SPINE FUSION W/BONE GRAFT 07/19/2016 Dr. Potts - [facility] MAMMOGRAM SCREENING-BILATERAL 02/1999 REMOVAL OF OVARY/OVIDUCT(S) 18 yo right REMOVE CATARACT, INSERT LENS PROSTH 12/2004 bilateral - [facility] [place] REMOVE GALLBLADDER REVERSE TOTAL SHOULDER ARTHROPLASTY Left 09/29/2020 [facility] [place] SACROILIAC JOINT INJECT W/GUIDANCE 11/13/2018 INJECTION SACROILIAC JOINT performed by Chris Caballero DO at OR [facility] SACROILIAC JOINT INJECT W/GUIDANCE 12/11/2018 INJECTION SACROILIAC JOINT performed by Chris Caballero DO at OR [facility] SHOULDER ARTHROSCOPY/SURGERY 06/07/2010 [facility] - [facility]- right shoulder repair SPINAL FUSION, LUMBAR, COMBINED 07/19/2016 Dr. Potts- [facility] TOTAL ABD HYSTERECTOMY W/WO REMOVAL OF TUBE(S) 26 yo one ovary still in VERTEBRAL ARTERY CATHETER PLACEMENT Bilateral 03/27/2024 CATHETER PLACEMENT VERTEBRAL ARTERY, performed by Yann Jackson MD at [facility] VERTEBRAL ARTERY CATHETER PLACEMENT Bilateral 04/15/2024 CATHETER PLACEMENT VERTEBRAL ARTERY, performed by Yann Jackson MD at [place] [facility] Review of patient's allergies indicates: Allergen Reactions Ampicillin Hives/trouble breathing Azithromycin hives and angioedema Ranitidine rash Family History Problem Relation Name Age of Onset Other (CAD) Father Hypertension Mother Social History Tobacco Use Smoking status: Every Day Current packs/day: 1.00 Average packs/day: 1 pack/day for 57.5 years (57.5 ttl pk-yrs) Types: Cigarettes Start date: 1965 Smokeless tobacco: Never Substance Use Topics Alcohol use: No Vaping/E-Cigarette Use Vaping/E-Cigarette Use Never Assessed Vaping/E-Cigarette Substances Vaping/E-Cigarette Devices ROS: -Per HPI OBJECTIVE: BP 122/66 | Pulse 81 | Temp 96.6 F (35.9 C) | Wt 162 lb 12.8 oz (73.8 kg) | SpO2 95% | BMI 27.94 kg/m | BSA 1.83 m PHYSICAL EXAM: Vitals are reviewed General:. NAD, well developed HEENT:. Normal Conjunctiva, EOMI. L eyelid is shut, L pupil is reactive to light Cardiac:. Normal S1, S2, no murmur Lungs:. CTA, no wheezing or crackles L groin area (pt did not want internet programmer): incision is healing well, no surrounding erythema but mild swelling Psych:. AAOx3, normal affect ASSESSMENT/PLAN: BP is normal w/o lisinopril -will continue to monitor it CBC and BMP today L groin area appeared to be healing well VSS Pt is sched to see neurosurgery in 2 weeks Started the pt on vitron C daily HTN, goal below 150/90 (Primary) - DISCH MED RECON CUR MED LIS - BASIC METABOLIC PANEL Hospital discharge follow-up Anemia, unspecified type - Vitron-C 65-125 MG Oral Tablet (Iron-Vitamin C 65-125 mg per tab); Take 1 Tablet by mouth in the morning. Carotid-cavernous fistula - BASIC METABOLIC PANEL Retroperitoneal bleeding - BASIC METABOLIC PANEL Thromboembolus (HCC) - BASIC METABOLIC PANEL Follow-up: Return in about 4 weeks (around 05/27/2024). | Check-out note: With me I spent a total of 40-54 minutes (exact time 48 mins) on the date of service in preparation, delivery, and documentation of the care provided to Josefa Ramírez excluding any time spent in the performance of separately billed services or time spent by another provider/QHP. Bharati Wang MD [address] [address] documented in this encounter Nursing Notes * Sandra Recinos CMA - 04/29/2024 11:16 AM EST She is here for follow up from [place]. She is still unable to use her eye due to swelling. She has an appointment with Neurosurgery on [id number]. She is still having soreness in her groin from the thrombectomy and stenting. documented in this encounter Plan of Treatment Upcoming Encounters Date Type Department Care Team (Late st Contact Info) Description 05/11/2024 1:00 PM EST [facility] [address] [place] [address] Yann Jackson MD [address] [place] [address] 06/05/2024 1:20 PM EST Office Visit Family Medicine [address] [place] [phone] [address] [place] [address] Pending Results Name Type Priority Associated Diagnoses Date /Time BASIC METABOLIC PANEL Lab Routine HTN, goal below 150/90 Carotid-cavernous fistula Retroperitoneal bleeding Thromboembolus (HCC) 04/29/2024 12:15 PM EST Scheduled Procedures Name Priority Associated Diagnoses Date/Ti me ESOPHAGOGASTRODUODENOSCOPY ( EGD), FLEXIBLE, TRANSORAL, DIAGNOSTIC Recall Contreras esophagus Health Maintenance Due Date Last Done Comments Alpha-1 Antitrypsin 1953 Adult Wellness Visit 2002 DISCUSS TOBACCO CESSATION (REFER TO SMARTSET #8425) 08/01/2018 08/01/2017 (Discussed) DTap/Tdap Vaccines (2 - [...] this encounter Medical Devices Implanted Type Area Taffy Candy Maker Device Identifier Shelf Expiration Date Model / Serial / Lot Coil Target 3d [id number] - [id number] Implanted:Qty : 1 on 04/15/2024 by Yann Jackson MD at [place] [facility] N/A: Head ANNAMARIA : NEUROVASCULAR [id number] 12/16/2024 [id number] / / [id number] 6cm, Coil Swiftpac Implanted:Qty : 1 on 04/15/2024 by Yann Jackson MD at [place] [facility] N/A: Head [employer] 12/16/2028 [id number] / / [id number] 45cm, Coil Swiftpac Implanted:Qty : 1 on 04/15/2024 by Yann Jackson MD at [place] [facility] N/A: Head [employer] 12/16/2028 [id number] / / [id number] 60cm, Coil Swiftpac Implanted:Qty : 1 on 04/15/2024 by Yann Jackson MD at [place] [facility] N/A: Head [employer] 11/02/2028 [id number] / / [id number] Coil Target 3d [id number] - [id number] Implanted:Qty : 1 on 04/15/2024 by Yann Jackson MD at [place] [facility] N/A: Head ANNAMARIA : NEUROVASCULAR [id number] 12/24/2024 [id number] 60 / / [id number] Coil Target 360 Soft [id number] - [id number] Implanted:Qty : 1 on 04/15/2024 by Yann Jackson MD at [place] [facility] N/A: Head ANNAMARIA : NEUROVASCULAR [id number] 06/23/2025 [id number] 00 / / [id number] Coil Target 360 Ultra [id number] - [id number] Implanted:Qty : 1 on 04/15/2024 by Yann Jackson MD at [place] [facility] N/A: Head ANNAMARIA : NEUROVASCULAR [id number] 05/04/2026 [id number] 00 / / [id number] Coil Target 360 Ultra [id number] - [id number] Implanted:Qty : 1 on 04/15/2024 by Yann Jackson MD at [place] [facility] N/A: Head ANNAMARIA : NEUROVASCULAR [id number] 02/03/2025 [id number] 80 / / [id number] 10cm, Coil [employer]pac Implanted:Qty : 2 on 04/15/2024 by Yann Jackson MD at [place] [facility] N/A: Head [employer] 12/24/2028 [id number] / / [id number] 30cm, Coil Swiftpac Implanted:Qty : 1 on 04/15/2024 by Yann Jackson MD at [place] [facility] N/A: Head [employer] 12/24/2028 [id number] / / [id number] 60cm, Coil Swiftpac Implanted:Qty : 1 on 04/15/2024 by Yann Jackson MD at [place] [facility] N/A: Head [employer] 11/02/2028 [id number] / / [id number] 6cm, Coil [employer]pac Implanted:Qty : 1 on 04/15/2024 by Yann Jackson MD at [place] [facility] N/A: Head [employer] 12/16/2028 [id number] / / [id number] Stent Vasc Hep [id number] - [id number] Implanted:Qty : 1 on 04/16/2024 by Samson Dennis MD at [place] [facility] Left: Iliac [employer] [id number] 12/29/2026 [id number] / [id number] / [id number] documented as of this encounter Visit Diagnoses Diagnosis HTN, goal below 150/90- Primary Hospital discharge follow-up Other follow-up examination Anemia, unspecified type Carotid-cavernous fistula Arteriovenous fistula, acquired Retroperitoneal bleeding Hemorrhage, unspecified Thromboembolus (HCC) Embolism and thrombosis of unspecified [...] Discussed due to patient's condition Care Teams Special Education Assistant Relationship Specialty Start Date End Date Bharati Wang MD [address] [place] [address] [place] [address] PCP - General Family Medicine 10/02/21 documented as of this encounter"
--- OUTSIDE RECORDS SUMMARY | 2024-07-03 23:05 | External Medical Summary ---
Author Name Unknown Address Unknown Organization [id number]:[facility] [facility] - [address] [place] [address] Laboratory Report Ordering Provider Test Date Status JAILENE FARIAS 04/29/2024 12:15:16 Final Discharge Order Observation Date Value Abnormality Reference (Units ) Status WBC, Total 04/29/2024 12:15:16 7.64 4.00-10.80 (K/uL) Final RBC 04/29/2024 12:15:16 3.03 3.85-5.15 (M/uL) Final Hemoglobin 04/29/2024 12:15:16 9.1 Below low normal 12.0-15.3 (g/dL) Final HCT 04/29/2024 12:15:16 29.5 Below low normal 36.0-45.2 (%) Final MCV 04/29/2024 12:15:16 97.4 81.5-97.5 (fL) Final MCH 04/29/2024 12:15:16 30.0 27.0-34.0 (pg) Final MCHC 04/29/2024 12:15:16 30.8 32.0-36.0 (g/dL) Final RDW 04/29/2024 12:15:16 16.7 11.5-15.5 (%) Final Platelets 04/29/2024 12:15:16 259 140-400 (K/uL) Final MPV 04/29/2024 12:15:16 10.3 6.6-11.1 (fL) Final Nucleated erythrocytes/100 leukocytes [Ratio] in Blood by Automated count 04/29/2024 12:15:16 0 <=0 (/100 WBCs) Final Performing Location [facility] [place] - [address] [place] [address]
--- OUTSIDE RECORDS SUMMARY | 2024-07-03 23:05 | External Medical Summary | Summary of Care ---
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 [address] [place] [address] Yann Jackson MD [address] [place] [address] 05/25/2024 12:40 PM EST Office Visit Family Medicine [address] [place] [phone] Bharati Wang MD [address] [place] [address] [place] [address] 06/05/2024 1:20 PM EST Office [address] [phone] Latha Shah [address] [place] [address] Scheduled Orders Name Type Priority Associated Diagnoses Orde r Schedule URINALYSIS WITH MICROSCOPIC EXAM Lab Routine History of UTI Expected: 04/30/2024, Expires: 04/30/2025 CULTURE, URINE, QUANTITATIVE Lab Routine History of UTI Expected: 04/30/2024, Expires: 04/30/2025 Scheduled Procedures Name Priority Associated Diagnoses Date/Ti me ESOPHAGOGASTRODUODENOSCOPY ( EGD), FLEXIBLE, TRANSORAL, DIAGNOSTIC Recall Contreras esophagus Health Maintenance Due Date Last Done Comments Alpha-1 Antitrypsin 1953 Adult Wellness Visit 2002 DISCUSS TOBACCO CESSATION (REFER TO SMARTSET #2771) 08/01/2018 08/01/2017 (Discussed) DTap/Tdap Vaccines (2 - [...] this encounter Medical Devices Implanted Type Area Cigarette Packing Machine Operator Device Identifier Shelf Expiration Date Model / Serial / Lot Coil Target 3d 8hnf9hi - [id number] Implanted:Qty : 1 on 04/15/2024 by Yann Jackson [place] [facility] [place] Head ANNAMARIA : NEUROVASCULAR [id number] 12/16/2024 [id number] 60 / / [id number] 6cm, Coil Swiftpac Implanted:Qty : 1 on 04/15/2024 by Yann Jackson MD [place] [facility] [place]: Head [employer] 12/16/2028 [id number] / / [id number] 45cm, Coil Swiftpac Implanted:Qty : 1 on 04/15/2024 by Yann Jackson MD [place] [facility] [place]: Head [employer] 12/16/2028 [id number] / / [id number] 60cm, Coil Swiftpac Implanted:Qty : 1 on 04/15/2024 by Yann Jackson MD at [place] [facility] [place]: Head [employer] 11/02/2028 [id number] / / [id number] Coil Target 3d 7ckf7yl - [id number] Implanted:Qty : 1 on 04/15/2024 by Yann Jakcson MD [place] [facility] [place]: Head ANNAMARIA : NEUROVASCULAR [id number] 12/24/2024 [id number] 60 / / [id number] Coil Target 360 Soft 1pcl49wd - [id number] Implanted:Qty : 1 on 04/15/2024 by Yann Jackson MD [place] [facility] [place]: Head ANNAMARIA : NEUROVASCULAR [id number] 06/23/2025 [id number] 00 / / [id number] Coil Target 360 Ultra 3axj60ux - [id number] Implanted:Qty : 1 on 04/15/2024 by Yann Jackson MD at [place] [facility] [place]: Head ANNAMARIA : NEUROVASCULAR [id number] 05/04/2026 [id number] 00 / / [id number] Coil Target 360 Ultra 5jug6zj - [id number] Implanted:Qty : 1 on 04/15/2024 by Yann Jackson MD at [place] [facility] [place]: Head ANNAMARIA : NEUROVASCULAR [id number] 02/03/2025 [id number] 80 / / [id number] 10cm, Coil [employer]pac Implanted:Qty : 2 on 04/15/2024 by Yann Jackson MD at [place] [facility] [place]/A: Head [employer] 12/24/2028 [id number] / / [id number] 30cm, Coil Swiftpac Implanted:Qty : 1 on 04/15/2024 by Yann Jackson MD [place] [facility] [place]/A: Head [employer] 12/24/2028 [id number] / / [id number] 60cm, Coil Swiftpac Implanted:Qty : 1 on 04/15/2024 by Yann Jackson MD at [place] [facility] [place]/A: Head [employer] 11/02/2028 [id number] / / [id number] 6cm, Coil Swiftpac Implanted:Qty : 1 on 04/15/2024 by Yann Jackson MD at [place] [facility] [place]/A: Head [employer] 12/16/2028 [id number] / / [id number] Stent Vasc Hep 8mmx7.3a718zk - [id number] Implanted:Qty : 1 on 04/16/2024 by Samson Dennis MD at [place] [facility] [place] Left: Iliac [employer] [id number] 12/29/2026 [id number] / [id number] / [id number] documented as of this encounter Visit Diagnoses Diagnosis History of UTI- Primary Personal history of urinary (tract) infection documented [...] Discussed due to patient's condition Care Teams Gui Developer Relationship Specialty Start Date End Date Bharati Wang MD [address] [place] [address] [place] [address] PCP - General Family Medicine 10/02/21 documented as of this encounter
--- OUTSIDE RECORDS SUMMARY | 2024-07-03 23:05 | External Medical Summary | Summary of Care ---
Author Name Unknown Organization [facility] Address [address] [place] [address] Phone [phone] Care Team Providers Care Vault Cashier Name Role Phone Bharati Wang MD Primary Care Provide r Encounter Details Date Type Department Care Team (Late st Contact Info) Description 04/27/2024 Population Health External Data Unspecified Department Allergies [...] infection) 04/22/2024 04/24/2024 Acute blood loss anemia 04/22/20242 01/2024 Chronic kidney disease, stage 3a 12/05/2020 03/02/2024 Overview: Per CKD protocol Benign hypertension with sta ge 3a chronic kidney disease 11/08/2020 01/22/2024 Overview: Per CKD protocol Gastro-esophageal reflux dis ease without esophagitis 06/30/2020 01/22/2024 Senile osteoporosis 06/30/2020 01/26/20 21 Occlusion and stenosis of ri ght carotid artery 06/30/2020 07/27/2021 History of fracture of humerus 08/07/2019 01/22/2024 Overview (08/10/2019): [facility] Bilateral sciatica 06/01/2019 Spasm of muscle [...] 30 Mcg, IM, 12 yrs and above (Nabto) 02/27/2022 Pneumococcal Conjugate Vacc, 13 Valent (Prevnar) [...] Job 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 Not on file Not on file documented as of this encounter Plan of Treatment Upcoming Encounters Date Type Department Care Team (Late st Contact Info) Description 04/29/2024 11:20 AM EST Office Visit [address] [phone] Bharati Wang MD [address] [place] [address] [place] [address] 05/11/2024 1:00 PM EST Office Visit [facility] [address] [place] [address] Yann Jackson MD [address] [place] [phone] 06/05/2024 1:20 PM EST Office Visit [address] [phone] Latha Shah CRNP [address] [place] [address] [place] [address] Scheduled Procedures Name Priority Associated Diagnoses Date/Ti [...] this encounter Medical Devices Implanted Type Area Distance Learning Technician Device Identifier Shelf Expiration Date Model / Serial / Lot Coil Target 3d 0zfn3um - [id number] Implanted:Qty : 1 on 04/15/2024 by Yann Jackson MD at [place] [facility] [place] N/A: Head ANNAMARIA : NEUROVASCULAR [id number] 12/16/2024 [id number] 60 / / [id number] 6cm, Coil Swiftpac Implanted:Qty : 1 on 04/15/2024 by Yann Jackson MD at [place] [facility] [place] N/A: Head [employer] 12/16/2028 [id number] / / [id number] 45cm, Coil Swiftpac Implanted:Qty : 1 on 04/15/2024 by Yann Jackson MD at [place] [facility] [place] N/A: Head [employer] 12/16/2028 [id number] / / [id number] 60cm, Coil Swiftpac Implanted:Qty : 1 on 04/15/2024 by Yann Jackson MD at [place] [facility] [place] N/A: Head [employer] 11/02/2028 [id number] / / [id number] Coil Target 3d 0xjt9al - [id number] Implanted:Qty : 1 on 04/15/2024 by Yann Jackson MD at [place] [facility] [place] N/A: Head ANNAMARIA : NEUROVASCULAR [id number] 12/24/2024 [id number] 60 / / [id number] Coil Target 360 Soft 3hls00vk - [id number] Implanted:Qty : 1 on 04/15/2024 by Yann Jackson MD at [place] [facility] [place] N/A: Head ANNAMARIA : NEUROVASCULAR [id number] 06/23/2025 [id number] 00 / / [id number] Coil Target 360 Ultra 9vws80kh - [id number] Implanted:Qty : 1 on 04/15/2024 by Yann Jackson MD at [place] [facility] [place] N/A: Head ANNAMARIA : NEUROVASCULAR [id number] 05/04/2026 [id number] 00 / / [id number] Coil Target 360 Ultra 3qkc9pb - [id number] Implanted:Qty : 1 on 04/15/2024 by Yann Jackson MD at [place] [facility] [place] N/A: Head ANNAMARIA : NEUROVASCULAR [id number] 02/03/2025 [id number] 80 / / [id number] 10cm, Coil [employer] Implanted:Qty : 2 on 04/15/2024 by Yann Jackson MD at [place] [facility] [place] N/A: Head [employer] 12/24/2028 [id number] / / [id number] 30cm, Coil Swiftpac Implanted:Qty : 1 on 04/15/2024 by Yann Jackson MD at [place] [facility] [place] N/A: Head [employer] 12/24/2028 [id number] / / [id number] 60cm, Coil Swiftpac Implanted:Qty : 1 on 04/15/2024 by Yann Jackson MD at [place] [facility] [place] N/A: Head [employer] 11/02/2028 [id number] / / [id number] 6cm, Coil [employer] Implanted:Qty : 1 on 04/15/2024 by Yann Jackson MD at [place] [facility] [place] N/A: Head [employer] 12/16/2028 [id number] / / [id number] Stent Vasc Hep 8mmx7.5h831gq - [id number] Implanted:Qty : 1 on 04/16/2024 by Samson Dennis MD at [place] [facility] [place] Left: Iliac [employer] [id number] 12/29/2026 [id number] / [id number] / [id number] documented as of this encounter Advance Directives [...] Discussed due to patient's condition Care Teams Vault Cashier Relationship Specialty Start Date End Date Bharati Wang MD [address] [place] [address] [place] [address] PCP - General Family Medicine 10/02/21 documented as of this encounter
--- OUTSIDE RECORDS SUMMARY | 2024-07-03 23:06 | External Medical Summary ---
Author Name Unknown Address Unknown Organization [id number][facility] [facility] [address] [facility] [address] [place] [address] Laboratory Report Ordering Provider Test Date Status JEROMY DONG 04/24/2024 07:47:00 Final Observation Date Value Abnormality Reference (Units ) Status WBC, Total 04/24/2024 07:47:00 6.53 4.00-10.80 (K/uL) Final RBC 04/24/2024 07:47:00 2.59 3.85-5.15 (M/uL) Final Hemoglobin 04/24/2024 07:47:00 7.7 Below low normal 12.0-15.3 (g/dL) Final HCT 04/24/2024 07:47:00 24.4 Below low normal 36.0-45.2 (%) Final MCV 04/24/2024 07:47:00 94.2 81.5-97.5 (fL) Final MCH 04/24/2024 07:47:00 29.7 27.0-34.0 (pg) Final MCHC 04/24/2024 07:47:00 31.6 32.0-36.0 (g/dL) Final RDW 04/24/2024 07:47:00 15.0 11.5-15.5 (%) Final Platelets 04/24/2024 07:47:00 237 140-400 (K/uL) Final MPV 04/24/2024 07:47:00 10.1 6.6-11.1 (fL) Final Nucleated erythrocytes/100 leukocytes [Ratio] in Blood by Automated count 04/24/2024 07:47:00 0 <=0 (/100 WBCs) Final Performing Location [facility] [place] [address] [place] [address]
--- OUTSIDE RECORDS SUMMARY | 2024-07-03 23:06 | External Medical Summary ---
Author Name Unknown Address Unknown Organization [id number]:[facility] [address] [place] [address] Laboratory Report Ordering Provider Test Date Status JEROMY DONG 04/24/2024 07:47:00 Final Observation Date Value Abnormality Reference (Units ) Status Phosphate 04/24/2024 07:47:00 2.7 2.5-4.8 (m g/dL) Final Performing Location [facility] - [address] [place] [address]
--- OUTSIDE RECORDS SUMMARY | 2024-07-03 23:06 | External Medical Summary ---
Author Name Unknown Address Unknown Organization K01:[facility] [address] [place] [address] Laboratory Report Ordering Provider Test Date Status JEROMY DONG 04/23/2024 07:59:00 Final Observation Date Value Abnormality Reference (Units ) Status Magnesium 04/23/2024 07:59:00 2.2 1.5-2.6 (m g/dL) Final Performing Location [facility] - [address] [place] [address]
--- OUTSIDE RECORDS SUMMARY | 2024-07-03 23:06 | External Medical Summary | Summary of Care ---
Author Name Unknown Organization [facility] Address [address] [place] [address] Phone [phone] Care Team Providers Care Bone Worker Name Role Phone Bharati Wang MD Primary Care Provide r Reason for Visit * Reason Comments transfer of records Other retroperitoneal trish cecilia * Auth/Cert Specialty Diagnoses / Procedures Referred By Cinda t Referred To Contact Diagnoses Retroperitoneal hematoma, anemia [facility] [address] [place] [address] Phone: tel:[phone] [facility] Emergency Department ([facility]) [address] [place] [address] Phone: tel: fax: Referral ID Status Reason Start Date Expiration Date Visits Re quested Visits Authorized [id number] Encounter Details Date Type Department Care Team (Late st Contact Info) Description 04/21/2024 6:32 PM EST - 04/24/2024 2:41 PM EST Hospital Encounter Advanced Acute Care Medical/Transplant Unit, [facility] 3rd Floor [address] [place] [address] Lawrence Rainey, [address] [place] [address] Mary Dalton MD [address] [facility] [place] [address] Edgard Aaron MD [address] [facility] [place], [place] [id number] Madeleine Pickard DO [address] [facility] [place] [address] Diagnostic Clarification Discharge Disposition: Home - Self Care Allergies Active Allergy Reactions Criticality Noted Date Comments Ampicillin 09/23/2003 Hives/trouble breathing Azithromycin 09/24/2003 hives and angioedema Ranitidine 10/29/2002 rash documented as of this encounter (statuses as of 04/25/2024) Medications VITAMIN D 2000 UNITS PO CAPS Take 2,000 Units by mouth daily with dinner. 08/25/[address] ARTHRITIS PAIN 500 MG PO TABS 1-2 tabs as needed for discomfort Active Cyanocobalamin 1000 MCG Oral Tablet Take 1 Tablet by mouth daily at noon. 11/01/19 18 Active Loratadine 10 MG Oral Tablet (Claritin)Yamileth [...] DAY 90 Tablet 3 04/13/20 24 Active Apixaban 5 MG Oral Tablet (Eliquis) Take 2 Tablets by mouth 2 times a day for 7 days, THEN 1 Tablet 2 times a day. 90 Tablet 1 4 12:53 PM EST 04/18/20 24 024 Active Clopidogrel Bisulfate 75 MG Oral Tablet (pLAVix) Take 1 Tablet by mouth in the morning. 30 Tablet 5 4 12:53 PM EST 04/19/20 24 Active Cephalexin 500 MG Oral Capsule (Keflex) Take 1 Capsule by mouth every 6 hours for 1 day. 4 Capsule 4 1:00 PM EST 04/24/20 024 Active Lisinopril 40 MG Oral TabletIndicati ons:HTN, goal below 150/90 TAKE ONE TABLET BY MOUTH IN THE MORNING 100 Tablet 3 04/05/20 24 024 Discontinued dexAMETHasone 2 MG Oral Tablet (Decadron) Take 2 Tablets by mouth 2 times a day with morning and evening meals for 1 day, THEN 1 Tablet 2 times a day with morning and evening meals for 1 day, THEN 1 Tablet daily with breakfast for 1 day. 7 Tablet 4 12:53 PM EST 04/18/20 024 Discontinued documented as of this encounter (statuses as of 04/25/2024) Active Problems Problem Noted Date Diagnosed Date [...] as of this encounter (statuses as of 04/25/2024) Resolved Problems Problem Noted Date Diagnosed Date [...] fracture of humerus 08/07/2019 01/22/2024 Overview (08/10/2019): [facility] Bilateral sciatica 06/01/2019 Spasm of muscle [...] as of this encounter (statuses as of 04/25/2024) Immunizations Name Administration Dates Next Due COVID-19 mRNA, LNP-s, No Pre serve, 2-Dose Series (Moderna) 07/24/2020,06/26/2020 COVID-19, mRNA, LNP-s, PF, B ooster, 100mcg/0.5mg (Moderna) 03/28/2021 Covid-19, Mrna, Lnp-s, Pf, B ivalent, 30 Mcg, IM, 12 yrs and above ([employer]) 02/27/2022 Pneumococcal Conjugate Vacc, 13 Valent (Prevnar) [...] Job Start Date Job End Date 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 Not on file Not on file Not on file documented as of this encounter Last Filed Vital Signs Vital Sign Reading Time Taken Comments Blood Pressure 124/61 04/24/2024 10:45 AM EST Pulse 70 04/24/2024 10:45 AM EST Temperature 36.9 C (98.4 F) 04/24/2024 10:[address] Respiratory Rate 16 04/24/2024 10:45 AM EST Oxygen Saturation 100% 04/24/2024 10:45 AM EST Inhaled Oxygen Concentration - - Weight 80.9 kg (178 lb 5.6 oz) 04/24/2024 7:00 A M EST Height 162.6 cm (5' 4") 04/22/2024 1:03 PM EST Body Mass Index 30.61 04/22/2024 1:03 PM EST documented in this encounter Discharge Summaries * Vivi Aguilar MD - 04/24/2024 2:27 PM EST [address] [address] Admission Date: 04/21/2024 Discharge Date: 04/24/2024 RECOMMENDED TO DO FOR NEXT PROVIDER(S): Follow up with CBC for hb monitoring within 3 days Lisinopril held on discharge just as safety measure to avoid risk of fall while on eliquis, given that she is also on amlodipine. Her pressure were well controlled while admitted, resume as appropriate Appointment is scheduled with neurosurgery on 05/01/24 An appointment is requested with vascular surgery and ophthalmology within 4 weeks REASON(S) FOR MEDICATION CHANGE(S): Please START taking the following medications -Keflex: Antibiotics for urinary infection, take as instructed- end date 04/25/2021 Please STOP taking the following medications -Decadron: As order is and you dont need this anymore -Lisinopril: Stop this medication as can lower blood pressure, resume after discussing with your PCP visit in 3 days Please continue taking all other medications as previously prescribed. DISPOSITION ON DISCHARGE: Home - Self Carehome Active Hospital Problems Diagnosis Retroperitoneal hematoma Hyperbilirubinemia Carotid-cavernous fistula Gastro-esophageal reflux disease without esophagitis Dyslipidemia COPD, mild (HCC) Vitamin B12 deficiency HTN, goal below 150/90 Vitamin D deficiency Irritable bowel syndrome with constipation Allergic rhinitis due to pollen Resolved Hospital Problems Diagnosis Date Resolved Sepsis (HCC) 04/24/2024 UTI (urinary tract infection) 04/24/2024 Acute blood loss anemia 04/24/2024 ADMISSION HISTORY & PHYSICAL EXAM (focused): Patient is a 88 year old female with PMHx significant for history of uterine cancer, carotid stenosis, cervical spine fusion, chronic constipation, CKD 3, hyperlipidemia, COPD, previous cholecystectomy and appendectomy, history of GI bleed, hypertension, iron deficiency anemia that presented from [facility] via EMS for concerns of retroperitoneal hematoma in the setting of recent Vascular Surgery procedure and associated hypotension. 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 Information taken from chart review and [facility] records provided. Prior to transfer, there was concerns of hypotension at outside hospital thought initially to be due to acute blood loss anemia in the setting of retroperitoneal hematoma seen on CT; at outside hospital, Hgb 6.2 and the patient received transfusion. Iron studies done at OSH showed iron low at 12, but normal TIBC and transferrin; ferritin low normal at 41. UA at outside hospital did look infectious. X-ray showed left lower lung opacities that could reflect pneumonia or atelectasis with some pulmonary vascular congestion and possible mild pulmonary edema. It looks from the charts that patient may receive 500 mL bolus and a dose ofcefepime and vancomycin at outside hospital. CTA done of the abdomen and pelvis at outside hospitalshowed several acute appearing left retroperitoneal hematomas measuring 7.4 x 5 cm associated with left psoas, iliacus and iliopsoas muscles as well as hemorrhage within the left groin and pelvis; nopseudoaneurysm or active extravasation noted. Patient has left iliac artery stent was patent but itdid show a short segment dissection within the left external iliac and common femoral arteries. Shedid also appear to have left colonic wall thickening at maybe underdistention but could be nonspecific colitis but no free air, abscess or bowel obstruction. Also seen to have 4.1 cm cystic left upper lobe renal lesion which has increased in size with mildly thickened wall and several calcifications. She was transferred here at the behest of Vascular Surgery, who evaluated her and were not concerned with any acute process. Seen at bedside. She is comfortable and was sleeping. She states ever since her procedure was done,she has not felt herself at home. She just overall feels weak and fatigued. She thinks she may havehad a cough but denies any significant shortness of breath. Denies any urinary symptoms, including frequency or dysuria. Denies any significant pain. Patient states that she thinks she has been constipated recently. Of note, attending physician spoke to patient's family and they stated that she hasbeen having more frequent bowel movements since the procedure although the bowel movements are not loose or watery. Patient denies any associated chest pain, palpitations, dyspnea, fevers, chills, rigors, abdominal pain, nausea, vomitting, melena, hematochezia, urinary complaints, lightheadedness, headaches, vision changes, and focal neurologic defecits. ED Course: Initial vitals BP 116/53, heart rate 73, RR 18, temperature 97.9, satting 94% on room air. CBC significant for leukocytosis to 19, hemoglobin 8.0 (stable from discharge after procedure).Lactate normal 1.3. CMP mostly unremarkable. RVP negative. Tag within normal limits. Type and screen completed. UA suggestive of infection. CT chest abdomen and pelvis with contrast showed left retroperitoneal hematomas involving the iliopsoas muscle and posterior pararenal space measuring 4.6 x 6 cm. In the ED, patient's maps fluctuating below and above 65 for a couple hours. The patient eventually given extra 500 mL bolus and 1 g ceftriaxone. Of note, procalcitonin at outside hospital 0.74. Patient wants to be FULL CODE at this time. Wants her Fletcher to make decisions for her in thesetting that she is not able to make decisions for herself. Lives with her . At baseline ambulates without assistance. Reports current tobacco use; has been smoking around 0.25-0.5 ppd for a long time. Reports no alcohol abuse or illicit substance use. HOSPITAL COURSE (focused): Ms. Ramírez presented with concerns of hypotension [...] of 5 days. Prior to presentation at [facility], she reportedly received one unit [...] stable and is now ready for discharge Discharge Physical Exam: GENERAL: Elderly female, laying in bed, no acute distress HEENT: Moist mucous membranes, left eye swollen but improved from prior CARDIO: RRR, no murmurs/rubs/gallops appreciated PULM: clear to auscultation in all lung lawrence, good airway movement ABDOMEN: soft, no tenderness, no guarding or rigidity EXTREMITIES: no pedal edema NEURO: alert, oriented, answers questions appropriately, moving all extremities with no obvious focality Operations & Procedures: none Complications: none significant Significant Lab and Imaging Results: As mentioned above Results Pending at Discharge: Lab Results Pending at Discharge: MAGNESIUM Routine PHOSPHORUS Routine CBC Routine COMPREHENSIVE METABOLIC PANEL Routine MRSA SCREEN, PCR Routine MEDICATION UPDATES AT DISCHARGE START taking these medications INSTRUCTIONS Cephalexin 500 MG Capsule Commonly known as: Keflex Take 1 Capsule by mouth every 6 hours for 1 day. CONTINUE taking these medications INSTRUCTIONS amLODIPine 5 MG Tablet Commonly known as: Norvasc TAKE ONE TABLET BY MOUTH EVERY MORNING clopidogrel 75 MG Tablet Commonly known as: pLAVix Take 1 Tablet by mouth in the morning. Eliquis 5 MG Tablet Generic drug: Apixaban Start taking on: April 18, 2024 Take 2 Tablets by mouth 2 times a day for 7 days, THEN 1 Tablet 2 times a day. fluticasone 50 MCG/ACT nasal spray Commonly known as: Flonase USE ONE SPRAY IN each nostril IN THE MORNING AND in the evening Loratadine 10 MG Tablet Commonly known as: Claritin Take 1 Tablet by mouth every night at bedtime. omeprazole 40 MG Cpdr Commonly known as: PriLOSEC TAKE ONE CAPSULE BY MOUTH EVERY MORNING rosuvastatin 20 MG Tablet Commonly known as: Crestor TAKE ONE TABLET BY MOUTH EVERY DAY vitamin b 12 1000 MCG Tabs Commonly known as: Cyanocobalamin Take 1 Tablet by mouth daily at noon. Vitamin D 50 MCG (2000 UT) Capsule Take 2,000 Units by mouth daily with dinner. STOP taking these medications dexAMETHasone 2 MG Tabs Tablet Commonly known as: Decadron Lisinopril 40 MG Tablet CONTINUE taking these medications but follow up with your Primary Care Physician (PCP). INSTRUCTIONS Tylenol Ex St Arthritis Pain 500 MG Tablet Generic drug: Acetaminophen 1-2 tabs as needed for discomfort SCHEDULED FOLLOW-UP: Future Appointments Appt Date/Time Provider Department 04/29/2024 11:20 AM Bharati Wang MD Family Medicine [facility] 05/11/2024 1:00 PM [facility] 1:20 PM Latha Shah CRNP [facility] Outpatient Follow Up CBC with WBC Differential Other Information Indwelling Devices: LINES ALL Duration Peripheral Line Left Antecubital 20 Gauge 2 days Peripheral Line Right Antecubital 20 Gauge 2 days Peripheral Line Right Arm 20 Gauge 2 days Vital Signs (last recorded): Most Recent Systolic BP: 124 mmHg (04/24/24 104) Most Recent Diastolic BP: 61 mmHg (04/24/24 104) Pulse: 70 (04/24/24 104) Resp: 16 (04/24/24 104) Most Recent Temperature: 36.89 C (04/24/24 104) Weight: 80.9 kg (178 lb 5.6 oz) (04/24/24 0700) SpO2: 100 % (04/24/24 104) Allergies: Ampicillin, Azithromycin, and Ranitidine Activity: as tolerated Diet: age appropriate diet Code Status: Full Code Condition on Discharge: stable Isolation status: None Cognition: normal HOSPITAL CONSULTS ORDERED: ADULT PHYSICAL THERAPY CONSULT IP ADULT OCCUPATIONAL THERAPY CONSULT IP NEUROSURGERY CONSULT IP OPHTHALMOLOGY CONSULT IP REFERRING PHYSICIAN: REF: ANGEL KAY [address] [place] [phone] (office) [phone] (fax) PRIMARY CARE PROVIDER: PCP: Bharati Wang MD [address] [place] [address] / [place] [phone] (office) [phone] (fax) Note: To contact a physician responsible for this patients hospital care, please call [facility] [phone]. Cosigned by Madeleine Pickard DO at 04/24/2024 6:23 PM EST Associated attestation - Madeleine Pickard DO - 04/24/2024 6:23 PM EST I saw and evaluated the patient today. I have reviewed the resident/fellow physician note and agree. I spent a total of 35 minutes coordinating, documenting, and providing care for this patient excluding time spent in the performance of separately billed services or time spent by another provider/QHP. and son-in-law updated at bedside of plan of care. Hgb stable after initiation of Eliquis. documented in this encounter Discharge Instructions * Discharge Instr - AVS* Vivi Aguilar MD - 04/24/2024 11:49 AM EST Discharge Date: 04/24/2024 The information below provides you with the instructions and the list of medications you need to betaking following discharge from the hospital. If you have any questions, please ask before leaving. If you have questions after leaving, you can reach us at the numbers below. YOUR HOSPITAL PROVIDERS: Discharging Provider: Madeleine Pickard DO Provider Department: Hospital Medicine To reach this Provider Saturday through Saturday (8:00 AM to 4:30 PM) for any questions or test results: Call [phone] For after-hours concerns: Call [phone] and have your provider paged, or the provider personal carer for the Department of [facility] Medicine paged. Please note, the discharging provider will not be able to provide you with any medications refills.Please discuss these with your primary care provider. Worsening Symptoms: If you have new symptoms, or your symptoms get worse, please contact your Discharge Provider or Primary Care Provider (PCP). If these providers are not available, you can go to your local [facility] or [facility] Care Clinic during their business hours. In an EMERGENCY situation: Call [phone] or go to the nearest emergency room. A BRIEF SUMMARY OF YOUR HOSPITAL STAY: You came to the hospital with: complaint of low blood pressure. You were found to have UTI and low blood count possibly due to bleeding in back from previous procedure. Your blood thinner was held for 2-3 days. You were started on IV antibiotics. Neurosurgery evaluated you and said there is no needfor any surgery. Eye doctors evaluated you and said your eye pressure are normal. You were also seen by vascular surgery. Your blood was monitored closely. As your blood count remained stable, you were restarted back on your blood thinner after calrfiying with neuro and vascular surgery. You are now medically ready to be discharged Your main diagnosis at discharge was: infection and low hemoglobin Operations & Procedures performed: none Complications: none significant Inpatient test results that are pending at discharge: none Advance Directive Documented: Advance Directive Does the Patient have an Advance Directive? No YOUR FOLLOW UP APPOINTMENTS: Primary Care Provider Information: PCP: Bharati Wang MD [address] [place] [address] / [place] [phone] (office) [phone] (fax) An appointment was requested with your PCP (Bharati Wang MD) within 3 days. (Please take this form to this visit with your primary care physician.) You have an appointment with neurosurgery on 05/11/24 An appointment is requested with ophthalmology and vascular surgery within 4 weeks You need the following studies in the future: CBC: date - 04/27/24 INSTRUCTIONS: Diet: Previous diet Activity: As tolerated Please START taking the following medications -Keflex: Antibiotics for urinary infection, take as instructed- end date 04/25/2021 Please STOP taking the following medications -Decadron: As order is and you dont need this anymore -Lisinopril: Stop this medication as can lower blood pressure, resume after discussing with your PCP visit in 3 days Please continue taking all other medications as previously prescribed. documented in this encounter Progress Notes * Kareem Cabrera MD - 04/24/2024 8:36 AM EST NEUROLOGICAL [place] [address] Name: Josefa Ramírez Location: [facility] B3/A Date: 04/24/2024 Time: 8:37 AM SUBJECTIVE: Back on Plavix and Eliquis. L eye at baseline since surgery. OBJECTIVE: Most recent vital signs: BP: 85 mmHg/74 mmHg (04/24/24699) Pulse: 75 (04/24/24699) Resp: 16 (04/24/24699) Temp: 36.5 C (04/24/24699) Temp Summary: Temp Min: 36 C (96.8 F) Max: 37.2 C (98.9 F) SpO2: 95 % (04/24/24699) O2 flow rate: Supplemental O2 Delivery: Room Air, None (04/24/24 020) Vital signs over last 24 hours: Systolic BP: Most Recent Systolic BP Av.3 mmHg Min: 85 mmHg Max: 141 mmHg Temperature: Most Recent Temperature Av.7 C Min: 36 C Max: 37.17 C Pulse: Pulse Avg: Pulse Av.5 Min: 66 Max: 75 Respirations: Resp Av.1 Min: 16 Max: 18 SpO2: SpO2 Av.3 % Min: 95 % Max: 99 % SpO2: SpO2 Av.3 % Min: 95 % Max: 99 % FiO2%: No data recorded ICP: No data found.CPP (adult): No data found.Intake Input/Output: (last 24 hours) Intake/Output Summary (Last 24 hours) at 04/24/2024 0837 Last data filed at 04/24/2024 0500 Gross per 24 hour Intake 680 ml Output -- Net 680 ml Neurologic Examination Honey Coma Scale (GCS): Eyes Open: 4 = spontaneous Best Verbal Response: 5 = verbally appropriate for age Best Motor Response: 6 = obeys commands appropriate for age Awake, alert, oriented to person, place, time PERRL L eye sarah-orbital edema, double vision with both eyes open, finger counting intact in all quadrants in both eyes No facial droop No pronator drift FLOR to command RUE 5/5 LUE 5/5 RLE 5/5 LLE 5/5 Sensation grossly intact LABS: Blood count: Lab Results Component Value Date/Time WBC 6.53 04/24/2024 07:47 AM WBC 6.13 05/21/2019 01:17 PM HGB 7.7 (L) 04/24/2024 07:47 AM HGB 13.7 03/06/2022 12:00 AM HGB 15.1 05/21/2019 01:17 PM HCT 24.4 (L) 04/24/2024 07:47 AM HCT 47.3 (H) 05/21/2019 01:17 PM PLT 237 04/24/2024 07:47 AM PLT 236 05/21/2019 01:17 PM Coagulation studies: Lab Results Component Value Date/Time INR 1.5 (H) 04/21/2024 06:45 PM Chemistry: Lab Results Component Value Date/Time BUN 17 04/24/2024 07:47 AM BUN 16 05/21/2019 01:17 PM CREAT 0.8 04/24/2024 07:47 AM CREAT 0.85 03/06/2022 12:00 AM CREAT 1.0 05/21/2019 01:17 PM GFRESTIMATED 53.7 (L) 05/21/2019 01:17 PM NA 138 04/24/2024 07:47 AM NA 145 05/21/2019 01:17 PM POTASSIUM 3.9 04/24/2024 07:47 AM POTASSIUM 4.0 04/15/2024 03:23 PM POTASSIUM 4.2 03/06/2022 12:00 AM POTASSIUM 4.3 05/21/2019 01:17 PM CO2 22 04/24/2024 07:47 AM CO2 26 05/21/2019 01:17 PM Imaging studies: No new images Problem list: Active Problems: Allergic rhinitis due to pollen Irritable bowel syndrome with constipation Vitamin D deficiency HTN, goal below 150/90 Vitamin B12 deficiency COPD, mild (HCC) Dyslipidemia Carotid-cavernous fistula Gastro-esophageal reflux disease without esophagitis Sepsis (HCC) UTI (urinary tract infection) Acute blood loss anemia Retroperitoneal hematoma Hyperbilirubinemia Resolved Problems: * No resolved hospital problems. 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 She presents to [facility] for concerns for retroperitoneal hematoma insetting of recent vascular surgery and associated hypotension. Neurosurgery was consulted for concerns of left eye swelling and diplopia. RECOMMENDATIONS: - no emergent neurosurgical intervention at this time - ophthalmology with no concern for increased intraocular pressure at this time. - treat UTI per primary - treatment of retroperitoneal hematoma per vascular - ok for ap/ac from nsgy perspective Thank you for the opportunity to provide care for this patient. Please reach out to the neurosurgery service for any additional questions. The author of this note may not be personal carer at this time. Please check the phonebook for the neurosurgery first call for any additional questions. Patient was discussed with attending physician I saw and evaluated the patient today. I have reviewed the resident/fellow physician note and agree. * Vivi Aguilar MD - 04/23/2024 1:49 PM EST Images from the original note were not included. [facility] B335/A INTERVAL HISTORY: Overnight: No acute events Today: Patient seen and examined at bedside. Patient denies any urinary symptoms, flank pain. However her left eye is still swollen, have diplopia, no pain, hazy vision unchanged Objective Physical Exam Most Recent Vital Signs: BP: 129 mmHg/51 mmHg (04/23/24 1000) Pulse: 70 (04/23/24 1000) Resp: 18 (04/23/24 1000) Temp: 37.17 C (04/23/24 1000) Temp Summary: Temp Min: 36.4 C (97.5 F) Max: 37.2 C (98.9 F) SpO2: 99 % (04/23/24 1000) O2 flow rate: Supplemental O2 Delivery: Room Air, None (04/23/24 1000) GENERAL: no acute distress, comfortable in bed, HEENT: Moist mucous membranes, left eye swollen, unable to totally open left eye due to swelling, no visible skin or color changes CARDIO: RRR, no murmurs/rubs/gallops appreciated PULM: clear to auscultation in all lung lawrence, good airway movement, no wheezing ABDOMEN: soft, Non tender, no guarding EXTREMITIES: no pedal edema NEURO: alert, oriented, answers questions appropriately, moving all extremities with no obvious focality Peripheral Line Left Antecubital 20 Gauge (Active) Number of days: 2 Peripheral Line Right Antecubital 20 Gauge (Active) Number of days: 2 Peripheral Line Right Arm 20 Gauge (Active) Number of days: 2 STUDIES: Encounter Orders Labs and other studies reviewed with pertinent findings noted below: Laboratory Values: reviewed. -- Brief labs below include the 7 most recent results over the past week. Blood Gas: Lab results within last 7 days (see chart for full results) Units 04/16/24 1541 pH, Arterial units 7.342* pCO2, Arterial mmHg 42.2 pO2, Arterial mmHg 134.0* Base Excess, Arterial mmol/L -2.7* FiO2 % Not Provided Chemistry Panel: Lab results within last 7 days (see chart for full results) Units 04/23/24 0759 04/22/24 0530 04/21/24 1845 04/18/24 0643 04/17/24 0554 SODIUM mmol/L 140 138 138 142 142 POTASSIUM mmol/L 4.1 3.9 4.4 4.2 4.2 CHLORIDE mmol/L 109* 107 107 111* 110* CO2 mmol/L EGFR mL/min 73 72 64 76 70 BUN mg/dL 17 15 16 21* 22* CREATININE mg/dL 0.8 0.8 0.9 0.8 0.8 GLUCOSE mg/dL 91 96 125* 139* 139* CALCIUM mg/dL 8.5 8.1* 8.1* 8.8 8.0* Magnesium mg/dL 2.2 -- -- -- -- Phosphorus mg/dL 2.5 -- -- -- -- ANION GAP mmol/L 9 9 9 9 9 Complete Blood Count: Lab results within last 7 days (see chart for full results) Units 04/23/24 0759 04/21/24 1846 04/18/24 0643 04/17/24 1340 04/17/24 0554 04/16/24 1739 WBC K/uL 6.87 18.97* 10.79 12.20* 11.68* 10.80 HGB g/dL 7.5* 8.0* 7.9* 8.4* 8.1* 9.4* HCT % 24.1* 25.3* 25.3* 27.6* 26.3* 30.1* PLT K/uL 194 176 161 180 167 192 MCV fL 96.4 96.2 96.2 96.8 96.3 95.3 Cardiac Studies: Lab results within last 7 days (see chart for full results) Units 04/22/24 0530 BNP, NT-Pro pg/mL 938* Coagulation Studies: Lab results within last 7 days (see chart for full results) Units 04/21/24 1845 04/17/24 0554 04/16/24 1739 Prothrombin Time seconds 18.3* 15.3* 15.9* INR 1.5* 1.2 1.3* aPTT seconds -- -- 111* Heparin, Unfractionated IU/mL -- <0.10 0.52* Liver Function Panel: Lab results within last 7 days (see chart for full results) Units 04/23/24 0759 04/22/24 0530 04/21/24 1845 Albumin g/dL 2.9* 2.9* 3.1* Protein g/dL 5.5* 5.1* 5.5* Bilirubin, Total mg/dL 1.0 0.9 1.4* AST U/L 12 6* 6* ALT U/L 11 8* 9* Alkaline Phosphatase U/L 57 49 55 Infectious Studies: Lab results within last 7 days (see chart for full results) Units 04/21/24 1846 04/17/24 0554 04/17/24 0051 04/16/24 2245 Lactate, Whole Blood mmol/L -- -- 1.6 2.4* Lactate mmol/L 1.3 1.5 -- -- Cultures: reviewed. Lab results within last 7 days (see chart for full results) Units 04/21/24 2004 Coronavirus SARS-CoV-2 by PCR Negative Recent Cultures (2 Weeks) 04/21/2024 8:28 PM QUANT URINE CULTURE GROWTH No significant growth Radiographic Studies (last 72 hours): reviewed. CT CHEST/ABDOMEN/PELVIS WITH IV CONTRAST WITHOUT ORAL CONTRAST Result Date: 04/21/2024 IMPRESSION 1. New left retroperitoneal hematomas involving the iliopsoas muscle and posterior pararenal space measuring approximately 4.6 x 6 cm. 2. Mild pulmonary edema with small left pleural effusion. 3. 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 Given the recent benign appearance on recent CTA, the heterogeneity may represent hemorrhage within the cyst. Attention on follow-up exams. Assessment and Plan IMPRESSION : Active Problems: Allergic rhinitis due to pollen Irritable bowel syndrome with constipation Vitamin D deficiency HTN, goal below 150/90 Vitamin B12 deficiency COPD, mild (HCC) Dyslipidemia Carotid-cavernous fistula Gastro-esophageal reflux disease without esophagitis Sepsis (HCC) UTI (urinary tract infection) Acute blood loss anemia Retroperitoneal hematoma Hyperbilirubinemia Resolved Problems: * No resolved hospital problems. 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 Doing well s/p fluid resuscitation and IV abx -Urine cx no growth, however unclear when it was collected (pre or post cefepime/vanc). -Will still treat as UTI given she responded well to abx with improvement in her symptoms -Deescalate IV CTX to keflex for total of 5 days Subacute Anemia post procedure No concern for active bleed given stable hb Stable retroperitoneal hematoma s/p recent vascular procedure Cavernous fistula s/p coild embolization 04/15/24 C/b LLE ALI S/P L groin cutdown, thrombectomy, and EIA stenting of dissection 04/16/24: -Vascular surgery and NSGY consulted, appreciate reccs -Vascular surgery was reached out for timing to restart apixaban given RPH-per them- "she would need AC for her thrombus ion aorta, RP hematoma looks old from initial procedure with nsgy, whenever medicine feel its safe to restart can be restarted" -NSGY was reached out as well if any potential interventions-per them "we are fine with AC" -C/w DRAG OUT WORKER Plavix -check CBC daily Right eye swelling Binocular Diplopia and left sided proptosis Hx of left sided carotid-cavernous fistula: Stable vision -clarified with NSGY as no concern for primary optho issue, however no new imaging or intervention planned -will continue artifical tears -Will consider CTA/MRA of orbits and head if worsening ocular symptoms and reengage the MDT Chronic Problems: Vit D deficiency: Continue DRAG OUT WORKER Vit D B12 deficiency: Continue DRAG OUT WORKER B12 Allergies: Continue DRAG OUT WORKER flonase GERD: Continue DRAG OUT WORKER omeprazole PHARMACOLOGIC VTE PROPHYLAXIS: Apixaban CODE STATUS: Full Code EXPECTED DISCHARGE DATE: No information available Patient was discussed with Dr. Pickard. Cosigned by Madeleine Pickard DO at 04/24/2024 7:40 AM EST Associated attestation - Madeleine Pickard DO - 04/24/2024 7:40 AM EST I saw and evaluated the patient 04/23/2024. I have reviewed the resident/fellow physician note and agree. I spent a total of 53 minutes coordinating, documenting, and providing care for this patient excluding time spent in the performance of separately billed services or time spent by another provider/QHP. * Edgard Aaron MD - 04/22/2024 7:58 AM EST PROGRESS NOTE - HOSPITAL MEDICINE [facility]-[address] [address] Name: Josefa Ramírez Location: Date: 04/22/2024 Date of admission: 04/21/2024 Hospital length of stay: 0 days Subjective Interval History: Patient seen and examined at bedside. Patient admitted overnight. Patient received another 750ml bolus early this morning. Patient denies fevers, chills, headache, nausea, vomiting, SOB, chest pain, abdominal pain, constipation, diarrhea, increased urinary frequency, and dysuria. She does complain of her L eye being more swollen and double vision which is new for her. Symptoms restarted yesterday. Had these symptoms prior to her coil embolization but they had gone away after procedure. Objective CONSTITUTIONAL DATA / OBJECTIVE: Vital Signs (Most Recent): Blood Pressure: 124/61 mmHg Last 12H: Most Recent Systolic BP Av.7 mmHg Min: 95 mmHg Max: 139 mmHg Pulse: 78 Last 12H: Pulse Av.6 Min: 71 Max: 84 Temperature: 36.8 C (98.2 F) Last 12H: Most Recent Temperature Av.1 C Min: 36.78 C Max: 37.5 C Respiratory Rate: 24 O2 Saturation: 92 % Vital Signs (Last 24 Hours): Pulse Av.3 Min: 70 Max: 84 No data recorded Most Recent Systolic BP Av.3 mmHg Min: 90 mmHg Max: 139 mmHg Most Recent Diastolic BP Av.5 mmHg Min: 38 mmHg Max: 72 mmHg Resp Av.5 Min: 15 Max: 24 Most Recent Temperature Av C Min: 36.61 C Max: 37.5 C SpO2 Av.9 % Min: 91 % Max: 100 % Intake & Output Summary (Last 24 hours): Intake/Output Summary (Last 24 hours) at 04/22/2024 1122 Last data filed at 04/22/2024 0900 Gross per 24 hour Intake 921.01 ml Output -- Net 921.01 ml Height & Weight: Weight: 82 kg (180 lb 12.4 oz) (04/21/24 1839) Weight change: Body mass index is 31.03 kg/m. Physical Exam Constitutional: Appearance: Normal appearance. HENT: Head: Normocephalic and atraumatic. Mouth/Throat: Mouth: Mucous membranes are dry. Cardiovascular: Rate and Rhythm: Normal rate and regular rhythm. Pulses: Normal pulses. Heart sounds: Normal heart sounds. Pulmonary: Effort: Pulmonary effort is normal. Breath sounds: Normal breath sounds. Abdominal: General: Abdomen is flat. Bowel sounds are normal. Palpations: Abdomen is soft. Musculoskeletal: General: No swelling. Skin: General: Skin is warm and dry. Neurological: General: No focal deficit present. Mental Status: She is alert and oriented to person, place, and time. Eye Exam: PERRL, L ptosis, L sclera appears irritated, EOMI appears intact Left groin with incisional vac intact Peripheral Line Left Antecubital 20 Gauge (Active) Number of days: 1 Peripheral Line Right Antecubital 20 Gauge (Active) Number of days: 1 Peripheral Line Right Arm 20 Gauge (Active) Number of days: 1 Laboratory Values: reviewed. -- Brief labs below include the 7 most recent results over the past week. Blood Gas: Lab results within last 7 days (see chart for full results) Units 04/16/24 1541 pH, Arterial units 7.342* pCO2, Arterial mmHg 42.2 pO2, Arterial mmHg 134.0* Base Excess, Arterial mmol/L -2.7* FiO2 % Not Provided Chemistry Panel: Lab results within last 7 days (see chart for full results) Units 04/22/24 0530 04/21/24 1845 04/18/24 0643 04/17/24 0554 04/16/24 0504 04/15/24 1523 04/15/24 1404 SODIUM mmol/L 138 138 142 142 141 -- -- POTASSIUM mmol/L 3.9 4.4 4.2 4.2 4.1 -- -- POTASSIUM - POCT mmol/L -- -- -- -- -- 4.0 3.9 CHLORIDE mmol/L 107 107 111* 110* 110* -- -- CO2 mmol/L 21* -- -- EGFR mL/min 72 64 76 70 85 -- -- BUN mg/dL 15 16 21* 22* 14 -- -- CREATININE mg/dL 0.8 0.9 0.8 0.8 0.7 -- -- GLUCOSE mg/dL 96 125* 139* 139* 166* -- -- CALCIUM mg/dL 8.1* 8.1* 8.8 8.0* 8.0* -- -- ANION GAP mmol/L 9 9 9 9 10 -- -- Complete Blood Count: Lab results within last 7 days (see chart for full results) Units 04/21/24 1846 04/18/24 0643 04/17/24 1340 04/17/24 0554 04/16/24 1739 04/16/24 0504 04/15/24 2246 WBC K/uL 18.97* 10.79 12.20* 11.68* 10.80 6.53 5.48 HGB g/dL 8.0* 7.9* 8.4* 8.1* 9.4* 11.1* 11.6* HCT % 25.3* 25.3* 27.6* 26.3* 30.1* 34.8* 36.6 PLT K/uL 176 161 180 167 192 162 161 MCV fL 96.2 96.2 96.8 96.3 95.3 94.1 95.1 Cardiac Studies: Lab results within last 7 days (see chart for full results) Units 04/22/24 0530 BNP, NT-Pro pg/mL 938* Coagulation Studies: Lab results within last 7 days (see chart for full results) Units 04/21/24 1845 04/17/24 0554 04/16/24 1739 04/16/24 1111 04/16/24 0504 04/15/24 2246 Prothrombin Time seconds 18.3* 15.3* 15.9* -- 14.5 15.2 INR 1.5* 1.2 1.3* -- 1.1 1.2 aPTT seconds -- -- 111* -- -- 34 Heparin, Unfractionated IU/mL -- <0.10 0.52* 0.16* 0.22* <0.10 Liver Function Panel: Lab results within last 7 days (see chart for full results) Units 04/22/24 0530 04/21/24 1845 Albumin g/dL 2.9* 3.1* Protein g/dL 5.1* 5.5* Bilirubin, Total mg/dL 0.9 1.4* AST U/L 6* 6* ALT U/L 8* 9* Alkaline Phosphatase U/L 49 55 Infectious Studies: Lab results within last 7 days (see chart for full results) Units 04/21/24 1846 04/17/24 0554 04/17/24 0051 04/16/24 2245 Lactate, Whole Blood mmol/L -- -- 1.6 2.4* Lactate mmol/L 1.3 1.5 -- -- Cultures: reviewed. Lab results within last 7 days (see chart for full results) Units 04/21/242003 Coronavirus SARS-CoV-2 by PCR Negative Recent Cultures (2 Weeks) No lab values to display. Radiographic Studies: reviewed. CT CHEST/ABDOMEN/PELVIS WITH IV CONTRAST WITHOUT ORAL CONTRAST Result Date: 04/21/2024 IMPRESSION 1. New left retroperitoneal hematomas involving the iliopsoas muscle and posterior pararenal space measuring approximately 4.6 x 6 cm. 2. Mild pulmonary edema with small left pleural effusion. 3. 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 Given the recent benign appearance on recent CTA, the heterogeneity may represent hemorrhage within the cyst. Attention on follow-up exams. Current Facility-Administered Medications: cefTRIAXone in dextrose (Rocephin) IVPB 1 g, 1 g, IV Piggyback, Q24H, Ruben Chaudhry, cholecalciferol (VIT D3) (Vitamin D3) tab 2,000 Units, 2,000 Units, Oral, Daily(AM), Ruben Chaudhry DO, 2,000 Units at 04/22/24 0827 clopidogrel (pLAVix) tab 75 mg, 75 mg, Oral, Daily(AM), Jatin Slater, CYANOCOBALAMIN (vitamin B-12) tab 1,000 mcg, 1,000 mcg, Oral, Daily(AM), Ruben Chaudhry DO, 1,000 mcg at 04/22/24 08 fluticasone (Flonase) nasal inhaler 1 [place], 1 [place], Each Nostril, BID(AM/PM), Ruben Chaudhry DO, 1 [place] at 04/22/24 08 oxygen GAS, , Inhalation, Oxygen, Ruben Chaudhry DO pantoprazole (Protonix) tab 40 mg, 40 mg, Oral, Daily(AM), To, Jatin, DO rosuvastatin (Crestor) tab 20 mg, 20 mg, Oral, Daily(AM), Ruben Chaudhry DO, 20 mg at 04/22/24 08 sodium chloride 0.9 % flush/inj 3 mL, 3 mL, IV Push, PRN, Ruben Chaudhry DO Current Outpatient Medications: Apixaban 5 MG Oral Tablet (Eliquis), Take 2 Tablets by mouth 2 times a day for 7 days, THEN 1 Tablet 2 times a day., Disp: 90 Tablet, Rfl: 1 Clopidogrel Bisulfate 75 MG Oral Tablet (pLAVix), Take 1 Tablet by mouth in the morning., Disp: 30 Tablet, Rfl: 5 amLODIPine Besylate 5 MG Oral Tablet (Norvasc), TAKE ONE TABLET BY MOUTH EVERY MORNING, Disp: 90 Tablet, Rfl: 3 Rosuvastatin Calcium 20 MG Oral Tablet (Crestor), TAKE ONE TABLET BY MOUTH EVERY DAY, Disp: 90 Tablet, Rfl: 3 Lisinopril 40 MG Oral Tablet, TAKE ONE TABLET BY MOUTH IN THE MORNING, Disp: 100 Tablet, Rfl: 3 Omeprazole 40 MG Oral Capsule Delayed Release (PriLOSEC), TAKE ONE CAPSULE BY MOUTH EVERY MORNING, Disp: 100 Capsule, Rfl: 3 Fluticasone Propionate 50 MCG/ACT Nasal Suspension (Flonase), USE ONE SPRAY IN each nostril IN THE MORNING AND in the evening, Disp: 16 g, Rfl: 0 Loratadine 10 MG Oral Tablet (Claritin), Take 1 Tablet by mouth every night at bedtime., Disp: 30 Tablet, Rfl: 11 Cyanocobalamin 1000 MCG Oral Tablet, Take 1 Tablet by mouth daily at noon., Disp: , Rfl: VITAMIN D 2000 UNITS PO CAPS, Take 2,000 Units by mouth daily with dinner., Disp: , Rfl: TYLENOL EX ST ARTHRITIS PAIN 500 MG PO TABS, 1-2 tabs as needed for discomfort (Patient not taking:Reported on 04/22/2024), Disp: , Rfl: Assessment & Plan Assessment and Plan: Active Problems: Allergic rhinitis due to pollen (POA: Yes) Irritable bowel syndrome with constipation (POA: Yes) Vitamin D deficiency (POA: Yes) HTN, goal below 150/90 (POA: Yes) Vitamin B12 deficiency (POA: Yes) COPD, mild (HCC) (POA: Yes) Dyslipidemia (POA: Yes) Carotid-cavernous fistula (POA: Yes) Gastro-esophageal reflux disease without esophagitis (POA: Yes) Sepsis (HCC) (POA: Unknown) UTI (urinary tract infection) (POA: Unknown) Acute blood loss anemia (POA: Unknown) Retroperitoneal hematoma (POA: Unknown) Hyperbilirubinemia (POA: Unknown) Resolved Problems: * No resolved hospital problems. * POA = Present On Admission Josefa Ramírez is a 88 year old female with PMHx significant for recent cavernous sinus fistula s/p coil embolization 04/15/24 c/b LLE ALI s/p L groin cutdown, thrombectomy, and EIA stenting ofdissection 04/16/24 who is admitted for possible sepsis in the setting of UTI vs hypovolemia from blood loss Sepsis secondary to UTI (most likely) Hx of HTN Patient initially presented with concerns for acute blood loss anemia as the etiology of her hypotension. Although she did have low hemoglobin and required transfusion at outside hospital, there was no active extravasation seen on CTA at that hospital. She was found to have a floridly infected UA and given her symptoms of weakness fatigue, in accordance with her hypotension, tachycardia (seen at outside hospital) and elevated white count, patient presents his sepsis from UTI. Of note, patient does not have any urinary symptoms that she was reporting; however, her family states that her history is unreliable. This is seen in the fact that she told 1 provider that she has been having frequentbowel movements recently and told another provider that she has been more constipated since the procedure. S/p 1 g CTX at [facility]; cont CTX 1 g daily S/p vanc x 1 and cefepime x 1 at OSH S/p total 1250 cc at [facility]; had prior 500 cc resuscitation at [facility] Hold DRAG OUT WORKER lisinopril and amlodipine in setting of hypotension ABLA 2/2 retroperitoneal hematomas s/p vascular procedure, likely in setting of recent Eliquis initiation Cavernous sinus fistula s/p coil embolization 04/15/24 c/b LLE ALI s/p L groin cutdown, thrombectomy, and EIA stenting of dissection 04/16/24 Elevated bilirubin, resolved Hx of ZIGGY Vascular Surgery was consulted to evaluate patient for new left-sided retroperitoneal hematomas. Noactive extravasation seen on CTA at outside hospital. Patient did have hemoglobin 6.2 at outside hospital and required transfusion. Hgb now 8.0. Vascular surgery consulted; appreciate recs Plan to remove Prevena today per Vascular Can restart plavix per vascular, hold DRAG OUT WORKER Eliquis Continue DRAG OUT WORKER Crestor Check CBC and CMP daily to track Hgb and bilirubin Transfuse for Hgb < 7 Consider hemolysis labs If bilirubin does not normalize Left Eye swelling in setting of known cavernous sinus fistula s/p coil embolization 04/15/2024 Patient presenting with new left eye swelling. Patient underwent coil embolization of cavernous sinus fistula on 04/15. Patient reporting blurry and double vision in left eye. - Neurosurgery consulted, appreciate recs Chronic Problems: Vit D deficiency: Continue DRAG OUT WORKER Vit D B12 deficiency: Continue DRAG OUT WORKER B12 Allergies: Continue DRAG OUT WORKER flonase GERD: Start pantoprazole 40mg Misc: Diet: Adult regular diet Bowel Regimen: Not indicated at this time Sleep: No sleep protocol ordered [place]: Not indicated at this time PT/OT: PT/OT consulted GI prophylaxis: Pantoprazole VTE Prophylaxis: SCBs & TEDS Code Status: Full Code Anticipated Discharge: TBD LINES / DRAINS / TUBES: LINES ALL Duration Peripheral Line Left Antecubital 20 Gauge <1 day Peripheral Line Right Antecubital 20 Gauge <1 day Peripheral Line Right Arm 20 Gauge <1 day List of services consulted/following: ADULT PHYSICAL THERAPY CONSULT IP ADULT OCCUPATIONAL THERAPY CONSULT IP NEUROSURGERY CONSULT IP Patient was discussed with attending physician, Edgard Aaron MD 88 year old woman with recent carvenous sinus fistula s/p coil ebmolization (04/15) and LLE ALI s/pgroin cutdown, thrombectomy and EIA stenting (04/16) who presented to [facility] due to generally feelingunwell. She was found to be hypotensive. Workup revealed worsening anemia, L retroperitoneal hematoma on CT without active extravasation, and infectious UA. She was transferred to [facility] for vascular surgery evaluation. Vascular surgery after evaluation of actual imaging, feel that these hematomas are more in line with anticipated post-operative changes. Planing to remove Prevena today. Plavix restarted. Continue tohold eliquis for now. Hypotension has improved after unit of blood at [facility] and IVF resuscitation. Hemoglobin stable. Willcontinue with CTX to treat UTI. Patient also complaining that her L eye is more swollen, difficult opening it, and having double vision. Symptoms are similar to that before she had coil embolization. Neurosurgery consulted regarding this in case this is related to her recent coil embolization. I did discuss plan of care today with her two family members at bedside. Aware of plan. I attest that I have reviewed the student note and that the components of the history, the physicalexam, and the assessment and plan documented were performed in my presence with the student where Iverified the documentation and performed (or re-performed) the exam and medical decision making. I spent a total of 55 minutes coordinating, documenting, and providing care for this patient excluding time spent in the performance of separately billed services or time spent by another provider/QHP. documented in this encounter H&P Notes * Ruben Chaudhry, - 04/22/2024 1:51 AM EST GENERAL HISTORY AND PHYSICAL EXAMINATION - HOSPITAL MEDICINE [facility]-[address] [id number] Name: Josefa Ramírez Location: 24/X Date: 04/22/2024 Time: 4:27 AM Date of Admission: 04/21/2024 Presenting Problem: Retroperitoneal hematoma, hypotension HPI: Patient is a 88 year old female with PMHx significant for history of uterine cancer, carotid stenosis, cervical spine fusion, chronic constipation, CKD 3, hyperlipidemia, COPD, previous cholecystectomy and appendectomy, history of GI bleed, hypertension, iron deficiency anemia that presented from [facility] via EMS for concerns of retroperitoneal hematoma in the setting of recent Vascular Surgery procedure and associated hypotension. 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 Information taken from chart review and [facility] records provided. Prior to transfer, there was concerns of hypotension at outside hospital thought initially to be due to acute blood loss anemia in the setting of retroperitoneal hematoma seen on CT; at outside hospital, Hgb 6.2 and the patient received transfusion. Iron studies done at OSH showed iron low at 12, but normal TIBC and transferrin; ferritin low normal at 41. UA at outside hospital did look infectious. X-ray showed left lower lung opacities that could reflect pneumonia or atelectasis with some pulmonary vascular congestion and possible mild pulmonary edema. It looks from the charts that patient may receive 500 mL bolus and a dose ofcefepime and vancomycin at outside hospital. CTA done of the abdomen and pelvis at outside hospitalshowed several acute appearing left retroperitoneal hematomas measuring 7.4 x 5 cm associated with left psoas, iliacus and iliopsoas muscles as well as hemorrhage within the left groin and pelvis; nopseudoaneurysm or active extravasation noted. Patient has left iliac artery stent was patent but itdid show a short segment dissection within the left external iliac and common femoral arteries. Shedid also appear to have left colonic wall thickening at maybe underdistention but could be nonspecific colitis but no free air, abscess or bowel obstruction. Also seen to have 4.1 cm cystic left upper lobe renal lesion which has increased in size with mildly thickened wall and several calcifications. She was transferred here at the behest of Vascular Surgery, who evaluated her and were not concerned with any acute process. Seen at bedside. She is comfortable and was sleeping. She states ever since her procedure was done,she has not felt herself at home. She just overall feels weak and fatigued. She thinks she may havehad a cough but denies any significant shortness of breath. Denies any urinary symptoms, including frequency or dysuria. Denies any significant pain. Patient states that she thinks she has been constipated recently. Of note, attending physician spoke to patient's family and they stated that she hasbeen having more frequent bowel movements since the procedure although the bowel movements are not loose or watery. Patient denies any associated chest pain, palpitations, dyspnea, fevers, chills, rigors, abdominal pain, nausea, vomitting, melena, hematochezia, urinary complaints, lightheadedness, headaches, vision changes, and focal neurologic defecits. ED Course: Initial vitals BP 116/53, heart rate 73, RR 18, temperature 97.9, satting 94% on room air. CBC significant for leukocytosis to 19, hemoglobin 8.0 (stable from discharge after procedure).Lactate normal 1.3. CMP mostly unremarkable. RVP negative. Tag within normal limits. Type and screen completed. UA suggestive of infection. CT chest abdomen and pelvis with contrast showed left retroperitoneal hematomas involving the iliopsoas muscle and posterior pararenal space measuring 4.6 x 6 cm. In the ED, patient's maps fluctuating below and above 65 for a couple hours. The patient eventually given extra 500 mL bolus and 1 g ceftriaxone. Of note, procalcitonin at outside hospital 0.74. Patient wants to be FULL CODE at this time. Wants her Fletcher to make decisions for her in thesetting that she is not able to make decisions for herself. Lives with her . At baseline ambulates without assistance. Reports current tobacco use; has been smoking around 0.25-0.5 ppd for a long time. Reports no alcohol abuse or illicit substance use. Subjective PAST MEDICAL HISTORY: Past Medical History: Diagnosis Date ACUTE PEPTIC [...] of humerus, left, closed, initial encounter 08/07/2019 [facility] HTN, goal below 130/80 04/19/2009 Hypercalcemia [...] adenoma of colon Vitamin D deficiency 05/18/2009 PAST SURGICAL HISTORY: Past Surgical History: Procedure Laterality Date ART EMBO FEM-POP,AORTOILIAC LE Left 04/16/2024 THROMBECTOMY EMBOLECTOMY FEMOROPOPLITEAL AORTOILIAC ARTERY performed by Samson Dennis MDat OR [facility] BLEPHAROPTOSIS, FRONTALIS, REPAIR Bilateral 08/10/2015 CAROTID (INTERNAL) ARTERY CATHETHER PLACEMENT Bilateral 03/27/2024 CATHETER PLACEMENT INTERNAL CAROTID ARTERY RADIAL ACCESS performed by Yann Jackson MD at OR [facility] CAROTID (INTERNAL) ARTERY CATHETHER PLACEMENT Bilateral 04/15/2024 CATHETER PLACEMENT INTERNAL CAROTID ARTERY performed by Yann Jackson MD at OR [facility] CAROTID (EXTERNAL) ARTERY CATHETHER PLACEMENT Bilateral 03/27/2024 CATHETER PLACEMENT EXTERNAL CAROTID ARTERY performed by Yann Jackson MD at OR [facility] CAROTID (EXTERNAL) ARTERY CATHETHER PLACEMENT Bilateral 04/15/2024 CATHETER PLACEMENT EXTERNAL CAROTID ARTERY performed by Yann Jackson MD at OR [facility] CATHETER OCCLUSION/EMBOLIZATION,PSYCHIATRIC NP N/A 04/15/2024 TRANSCATHETER PERMANENT ARTERIAL OCCLUSION CENTRAL NERVOUS SYSTEM performed by Yann Jackson MD at OR [facility] CERVICAL LAMINOPLAST W/DECOMP,RECON 06/17/2006 Dr. Potts COLONOSCOPY, DIAGNOSTIC (RECTUM) 03/08/2015 adenomatous polyps, repeat 5 yrs/COLONOSCOPY FLEXIBLE PROXIMAL DIAGNOSTIC performed by Rene Elise MD at ENDOSCOPY [facility] COLONOSCOPY, DIAGNOSTIC (RECTUM) 07/27/2020 benign adenomatous polyps / COLONOSCOPY FLEXIBLE PROXIMAL DIAGNOSTIC performed by Rene Elise MD at ENDOSCOPY [facility] COLONOSCOPY, GI REFERRAL OP 01/16/2005 Dr. Mcneil - diverticulosis CT SINUSES W WO CONTRAST 06/06/2006 air fluid levels in bilateral maxillary and sphenoid sinuses, frontal sinus opacified, mucosal thickening of ethmoids, left osteomeatal complex opacified, left nasal septal deviation EGD, FLEXIBLE, DIAGNOSTIC 11/14/2020 Barretts, hiatal hernia, repeat 6 mo / ESOPHAGOGASTRODUODENOSCOPY (EGD), FLEXIBLE, TRANSORAL, DIAGNOSTIC performed by Santi Edwards MD at ENDOSCOPY [facility] EGD, FLEXIBLE, DIAGNOSTIC 08/29/2021 Barretts, hiatal hernia, repeat 2 yrs / ESOPHAGOGASTRODUODENOSCOPY (EGD), FLEXIBLE, TRANSORAL, DIAGNOSTIC performed by Santi Edwards MD at ENDOSCOPY [facility] EGD, FLEXIBLE, DIAGNOSTIC 09/30/2020 Bleeding esophagitis with underlying Contreras's esophagus, repeat 6 wks / INPT [facility] EGD, FLEXIBLE, W/BIOPSY 08/16/2006 path-no abnormalities FULL PULMONARY FUNCTION TEST 05/2000 HEMORRHOIDECTOMY, SIMPLE, 1 COLUMN Remote past ILIAC ART. REVASC W/ STENT+ANGIOPLASTY 04/16/2024 ILIAC ARTERY REVASC W/ STENT+ANGIOPLASTY performed by Samson Dennis MD at [facility] INTRACRANIAL ARTERIES CATH PLACEMENT Bilateral 04/15/2024 CATHETER PLACEMENT EACH INTRACRANIAL BRANCH OF THE INTERNAL CAROTID OR VERTEBRAL ARTERIES performedby Yann Jackson MD at [facility] IR ARTERIOGRAM EXTREMITY UNILATERAL 04/16/2024 IMAGING SUPERVISION & INTERPRETATION EXTREMITY UNILATERAL performed by Samson Dennis MD at [facility] L-/S-SPINE PARAVERTEBRAL FACET INJ,1 LEVEL 02/09/2019 L-/S-SPINE PARAVERTEBRAL FACET INJ, 1 LEVEL performed by Chris Caballero DO at [facility] L-/S-SPINE PARAVERTEBRL FACET INJ,2 LEVELS 02/09/2019 L-/S-SPINE PARAVERTEBRAL FACET INJ, 2 LEVELS performed by Chris Caballero, DO at OR [facility] LUMBAR DISC ARTHROPLAST,REMV,ADDL INTERSPCE 01/2010 Dr Potts LUMBAR SPINE FUSION W/BONE GRAFT 02/23/2005 Dr. Potts - [facility] LUMBAR SPINE FUSION W/BONE GRAFT 07/19/2016 Dr. Potts - [facility] MAMMOGRAM SCREENING-BILATERAL 02/1999 REMOVAL OF OVARY/OVIDUCT(S) 18 yo right REMOVE CATARACT, INSERT LENS PROSTH 12/2004 bilateral - [facility] REMOVE GALLBLADDER REVERSE TOTAL SHOULDER ARTHROPLASTY Left 09/29/2020 [facility] [place] SACROILIAC JOINT INJECT W/GUIDANCE 11/13/2018 INJECTION SACROILIAC JOINT performed by Chris Caballero, at OR [facility] SACROILIAC JOINT INJECT W/GUIDANCE 12/11/2018 INJECTION SACROILIAC JOINT performed by Chris Caballero, DO at OR [facility] SHOULDER ARTHROSCOPY/SURGERY 06/07/2010 [facility] - [facility]- right shoulder repair SPINAL FUSION, LUMBAR, COMBINED 07/19/2016 Dr. Potts- [facility] TOTAL ABD HYSTERECTOMY W/WO REMOVAL OF TUBE(S) 26 yo one ovary still in VERTEBRAL ARTERY CATHETER PLACEMENT Bilateral 03/27/2024 CATHETER PLACEMENT VERTEBRAL ARTERY, performed by Yann Jackson MD at OR [facility] VERTEBRAL ARTERY CATHETER PLACEMENT Bilateral 04/15/2024 CATHETER PLACEMENT VERTEBRAL ARTERY, performed by Yann Jackson MD at OR [facility] FAMILY HISTORY: non-contributory Family History Problem Relation Name Age of Onset Other (CAD) Father Hypertension Mother SOCIAL HISTORY: Social History Tobacco Use Smoking status: Every Day Current packs/day: 1.00 Average packs/day: 1 pack/day for 57.5 years (57.5 ttl pk-yrs) Types: Cigarettes Start date: 1965 Smokeless tobacco: Never Vaping Use Vaping status: Not on file Substance Use Topics Alcohol use: No Drug use: No PRIOR TO ADMISSION MEDS: Current Outpatient Medications Medication Instructions amLODIPine (NORVASC) 5 mg, Oral, Daily(AM), In the morning. Apixaban 5 MG Oral Tablet (Eliquis) Take 2 Tablets by mouth 2 times a day for 7 days, THEN 1 Tablet2 times a day. clopidogrel (PLAVIX) 75 mg, Oral, Daily(AM) Fluticasone Propionate 50 MCG/ACT Nasal Suspension (Flonase) USE ONE SPRAY IN each nostril IN THE MORNING AND in the evening Lisinopril 40 MG Oral Tablet TAKE ONE TABLET BY MOUTH IN THE MORNING Loratadine (CLARITIN) 10 mg, Oral, QHS Omeprazole 40 MG Oral Capsule Delayed Release (PriLOSEC) TAKE ONE CAPSULE BY MOUTH EVERY MORNING Rosuvastatin Calcium 20 MG Oral Tablet (Crestor) TAKE ONE TABLET BY MOUTH EVERY DAY TYLENOL EX ST ARTHRITIS PAIN 500 MG PO TABS 1-2 tabs as needed for discomfort vitamin b 12 (CYANOCOBALAMIN) 1,000 mcg, DAILY NOON Vitamin D 2,000 Units, DINNER ALLERGIES: Ampicillin, Azithromycin, and Ranitidine Review of Systems: All systems were reviewed and documented in the HPI, otherwise negative. Objective CONSTITUTIONAL DATA / OBJECTIVE: Vital Signs (Most Recent): Blood Pressure: 95/55 mmHg Last 12H: Most Recent Systolic BP Av.3 mmHg Min: 90 mmHg Max: 139 mmHg Pulse: 75 Last 12H: Pulse Av.9 Min: 70 Max: 84 Temperature: 37.5 C (99.5 F) Last 12H: Most Recent Temperature Av.1 C Min: 36.61 C Max: 37.5 C Respiratory Rate: 18 O2 Saturation: 94 % Vital Signs (Last 24 Hours): Pulse Av.9 Min: 70 Max: 84 No data recorded Most Recent Systolic BP Av.3 mmHg Min: 90 mmHg Max: 139 mmHg Most Recent Diastolic BP Av.6 mmHg Min: 38 mmHg Max: 72 mmHg Resp Av.4 Min: 15 Max: 20 Most Recent Temperature Av.1 C Min: 36.61 C Max: 37.5 C SpO2 Av.5 % Min: 91 % Max: 100 % Intake & Output Summary (Last 24 hours): Intake/Output Summary (Last 24 hours) at 04/22/2024 0427 Last data filed at 04/21/2024 2300 Gross per 24 hour Intake 49.86 ml Output -- Net 49.86 ml Height & Weight: Weight: 82 kg (180 lb 12.4 oz) (04/21/24 1839) Weight change: Body mass index is 31.03 kg/m. Physical Examination: General: Patient in no apparent distress HEENT: normocephalic, atraumatic Heart: regular rate and rhythm; S1 and S2 present; no murmurs, rubs or gallops. Pulmonary: Lungs clear to auscultation bilaterally; no wheezes, rhonchi or crackles. Abdomen: Soft, non-tender, non-distended. Normal bowel sounds and no rebound or guarding. Prevena in place left groin area. Some swelling and bruising present. MSK: Patient able to ambulate; Gross motor function intact Extremities: No pitting edema present at lower extremity bilaterally Skin: [place], warm, no wounds or lesions present. Neuro: AAOx3. No gross motor or sensory deficits. Psych: Appropriate mood and affect Peripheral Line Left Antecubital 20 Gauge (Active) Number of days: 1 Peripheral Line Right Antecubital 20 Gauge (Active) Number of days: 1 Peripheral Line Right Arm 20 Gauge (Active) Number of days: 1 Laboratory Values: reviewed. -- Brief labs below include the 7 most recent results over the past week. Blood Gas: Lab results within last 7 days (see chart for full results) Units 04/16/24 1541 pH, Arterial units 7.342* pCO2, Arterial mmHg 42.2 pO2, Arterial mmHg 134.0* Base Excess, Arterial mmol/L -2.7* FiO2 % Not Provided Chemistry Panel: Lab results within last 7 days (see chart for full results) Units 04/21/24 1845 04/18/24 0643 04/17/24 0554 04/16/24 0504 04/15/24 1523 04/15/24 1404 SODIUM mmol/L 138 142 142 141 -- -- POTASSIUM mmol/L 4.4 4.2 4.2 4.1 -- -- POTASSIUM - POCT mmol/L -- -- -- -- 4.0 3.9 CHLORIDE mmol/L 107 111* 110* 110* -- -- CO2 mmol/L 22 23 21* -- -- EGFR mL/min 64 76 70 85 -- -- BUN mg/dL 16 21* 22* 14 -- -- CREATININE mg/dL 0.9 0.8 0.8 0.7 -- -- GLUCOSE mg/dL 125* 139* 139* 166* -- -- CALCIUM mg/dL 8.1* 8.8 8.0* 8.0* -- -- ANION GAP mmol/L 9 9 9 10 -- -- Complete Blood Count: Lab results within last 7 days (see chart for full results) Units 04/21/24 1846 04/18/24 0643 04/17/24 1340 04/17/24 0554 04/16/24 1739 04/16/24 0504 04/15/24 2246 WBC K/uL 18.97* 10.79 12.20* 11.68* 10.80 6.53 5.48 HGB g/dL 8.0* 7.9* 8.4* 8.1* 9.4* 11.1* 11.6* HCT % 25.3* 25.3* 27.6* 26.3* 30.1* 34.8* 36.6 PLT K/uL 176 161 180 167 192 162 161 MCV fL 96.2 96.2 96.8 96.3 95.3 94.1 95.1 Cardiac Studies: No results in the last 7 days - inpatent use only Coagulation Studies: Lab results within last 7 days (see chart for full results) Units 04/21/24 1845 04/17/24 0554 04/16/24 1739 04/16/24 1111 04/16/24 0504 04/15/24 2246 Prothrombin Time seconds 18.3* 15.3* 15.9* -- 14.5 15.2 INR 1.5* 1.2 1.3* -- 1.1 1.2 aPTT seconds -- -- 111* -- -- 34 Heparin, Unfractionated IU/mL -- <0.10 0.52* 0.16* 0.22* <0.10 Liver Function Panel: Lab results within last 7 days (see chart for full results) Units 04/21/24 1845 Albumin g/dL 3.1* Protein g/dL 5.5* Bilirubin, Total mg/dL 1.4* AST U/L 6* ALT U/L 9* Alkaline Phosphatase U/L 55 Infectious Studies: Lab results within last 7 days (see chart for full results) Units 04/21/24 1846 04/17/24 0554 04/17/24 0051 04/16/24 2245 Lactate, Whole Blood mmol/L -- -- 1.6 2.4* Lactate mmol/L 1.3 1.5 -- -- Cultures: reviewed. Lab results within last 7 days (see chart for full results) Units 04/21/24 2004 Coronavirus SARS-CoV-2 by PCR Negative Recent Cultures (2 Weeks) No lab values to display. Radiographic Studies: reviewed. CT CHEST/ABDOMEN/PELVIS WITH IV CONTRAST WITHOUT ORAL CONTRAST Result Date: 04/21/2024 IMPRESSION 1. New left retroperitoneal hematomas involving the iliopsoas muscle and posterior pararenal space measuring approximately 4.6 x 6 cm. 2. Mild pulmonary edema with small left pleural effusion. 3. 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 Given the recent benign appearance on recent CTA, the heterogeneity may represent hemorrhage within the cyst. Attention on follow-up exams. Assessment & Plan Assessment and Plan: Active Problems: Allergic rhinitis due to pollen (POA: Yes) Irritable bowel syndrome with constipation (POA: Yes) Vitamin D deficiency (POA: Yes) HTN, goal below 150/90 (POA: Yes) Vitamin B12 deficiency (POA: Yes) COPD, mild (HCC) (POA: Yes) Dyslipidemia (POA: Yes) Carotid-cavernous fistula (POA: Yes) Gastro-esophageal reflux disease without esophagitis (POA: Yes) Sepsis (HCC) (POA: Unknown) UTI (urinary tract infection) (POA: Unknown) Acute blood loss anemia (POA: Unknown) Retroperitoneal hematoma (POA: Unknown) Hyperbilirubinemia (POA: Unknown) POA = Present On Admission Josefa Ramírez is a 88 year old female with PMHx significant for 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 Although she did have low hemoglobin and required transfusion at outside hospital, there was no active extravasation seen on CTA at that hospital. She was found to have a floridly infected UA and given her symptoms of weakness fatigue, in accordance with her hypotension, tachycardia (seen at outside hospital) and elevated white count, patient presents his sepsis from UTI. Of note, patient does not have any urinary symptoms that she was reporting; however, her family states that her history is unreliable. This is seen in the fact that she told 1 provider that she has been having frequentbowel movements recently within told another provider that she has been more constipated since the procedure. 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 Noactive extravasation seen on CTA at outside hospital. Patient did have hemoglobin 6.2 at outside hospital and required transfusion. Patient was slightly elevated totally bilirubin of unknown cause currently. Vascular surgery consulted; appreciate recs Plan to remove Prevena today per Vascular Hold [employer] Eliquis and plavix (would favor restarting plavix sooner than later if Hgb stable) Continue [employer] Crestor Check CBC and CMP daily to track Hgb and bilirubin Transfuse for Hgb < 7 Consider hemolysis labs If bilirubin does not normalize Chronic Problems: Vit D deficiency: Continue [employer]ER Vit D B12 deficiency: Continue [employer] B12 Allergies: Continue [employer] flonase GERD: Continue [employer] omeprazole Misc: Diet: NPO except meds until Vascular sees in morning Bowel Regimen: N/A Sleep: No sleep protocol ordered [place]: Not indicated at this time PT/OT: ordered GI prophylaxis: [employer] omeprazole VTE Prophylaxis: hold Code Status: FULL Anticipated Discharge: TBD LINES / DRAINS / TUBES: LINES ALL Duration Peripheral Line Left Antecubital 20 Gauge <1 day Peripheral Line Right Antecubital 20 Gauge <1 day Peripheral Line Right Arm 20 Gauge <1 day List of services consulted/following: ADULT PHYSICAL THERAPY CONSULT IP ADULT OCCUPATIONAL THERAPY CONSULT IP Vascular Surgery Patient discussed with attending physician, Mary Dalton MD. Ruben Chaudhry DO Resident Physician This chart was completed in part utilizing [employer] Speech Voice Recognition Software. Grammatical errors, random word insertions, pronoun errors, and incomplete sentences are an occasional consequence of this system due to software limitations, ambient noise, and hardware issues. Any formal questions or concerns about the content, text, or information contained within the body of this dictation should be directly addressed to the provider for clarification. Cosigned by Mary Dalton MD at 04/22/2024 5:37 AM EST Associated attestation - Mary Dalton MD - 04/22/2024 5:37 AM EST Ms. Rivero comes in for weakness since 1-2 days. She comes in for [facility]. Presenting problems Generalized weakness Assessment Ms. Rivero presenting with generalized weakness since 1 day., however reports to not feel well since the previous surgery daily 7 days ago. Patient reports that she feels weak since 1 day, family members cyst in the history. The patient's family report that she has been having more bowel movements (mushy however more in frequency withoutany urgency/tenesmus). No history of dysuria. On my evaluation, patient is weak, hemodynamically-low maps (map dropped from 62-->59) on/at thetime of initial evaluation. MAP remained <65, however fixed after 2-3 hour of ED stay, prior to which ED decided to connect with [facility], H[facility] then, adm to med- surg (on MAP 78-80). No intervention from vascular point of view as of now. Imaging CT chest abdomen pelvis with IV contrast shows new left retroperitoneal hematoma involving iliopsoas muscle and posterior para renal space and thickening of bowel wall with mild pulmonary edema and small left pleural effusion and labs CBC, UA, respiratory pathogen panel, lactate, CMP, CBC, are suggestive of leukocytosis, bacteriuria, anemia (drop 13-->11-->8), no lactic acidosis, negative RVP, hypoalbuminemia and mild hypocalcemia, INR 1.5. Vitals BP: 102 mmHg/42 mmHg (04/21/242299) Pulse: 77 (04/21/242299) Resp: 20 (04/21/242299) Temp: 36.61 C (04/21/241838) Temp Summary: Temp Min: 36.6 C (97.9 F) Max: 36.6 C (97.9 F) SpO2: 97 % (04/21/242299) O2 flow rate: Supplemental O2 Delivery: Room Air, None (04/21/242299) Physical exam Constitutional: Not in distress, comfortable ENT: No pharyngeal erythema, neck supple Respiratory: mild crackles bilaterally Cardiovascular: S1,S2 normal,RRR Abdomen: Soft, nontender, distended, regular bowel sounds. L groin : + catheter/VAC within the dressing senior care Back/Musculoskeletal: No back tenderness Extremity/skin: No Pedal edema, skin intact Neurology: AOx3, grossly unremarkable motor and sensory exam. Impression Sepsis and Symptomatic anemia in the setting of acute left retroperitoneal hematoma-status post procedure (status post coil embolization). Plan : Adm Current sepsis protocol Telemetry monitoring Cautious fluid resuscitation (EF 2021 50%). Low threshold for CCM evaluation as patient has started to become hypotensive on arrival to the floor while on IV fluid Monitor H&H, transfuse for the goal >7 gm/dl, restart Plavix and Eliquis based on the a.m. hemoglobin levels Follow up with vascular surgery for remove Prevena Monitor I's and O's Continue antibiotic, follow up am labs and cultures, BNP. 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 Now has retroperitoneal hematoma and sepsis 2/2 UTI (most likely) vs possible colitis. During encounter, patient complains of binocular diplopia for approximately one week. When looking at a clock on a wall with both eyes open, she sees two distinct clocks oblique to one another. This diplopia resolves when any one eye is covered. She denies any ocular pain. Nursing notes reviewed. Past Ocular History: Reviewed per chart. CEIOL OU. Keratoconjunctivitis Sicca OU, Bilateral ptosis.Sees outside deputy court clerk, Dr. Cas Esparza. Current Ocular Medications: None PAST MEDICAL HISTORY: Past Medical History: Diagnosis Date ACUTE PEPTIC [...] of humerus, left, closed, initial encounter 08/07/2019 [facility] HTN, goal below 130/80 04/19/2009 Hypercalcemia [...] adenoma of colon Vitamin D deficiency 05/18/2009 PAST SURGICAL HISTORY: Past Surgical History: Procedure Laterality Date ART EMBO FEM-POP,AORTOILIAC LE Left 04/16/2024 THROMBECTOMY EMBOLECTOMY FEMOROPOPLITEAL AORTOILIAC ARTERY performed by Samson Dennis MDat OR [facility] BLEPHAROPTOSIS, FRONTALIS, REPAIR Bilateral 08/10/2015 CAROTID (INTERNAL) ARTERY CATHETHER PLACEMENT Bilateral 03/27/2024 CATHETER PLACEMENT INTERNAL CAROTID ARTERY RADIAL ACCESS performed by Yann Jackson MD at OR [facility] CAROTID (INTERNAL) ARTERY CATHETHER PLACEMENT Bilateral 04/15/2024 CATHETER PLACEMENT INTERNAL CAROTID ARTERY performed by Yann Jackson MD at OR [facility] CAROTID (EXTERNAL) ARTERY CATHETHER PLACEMENT Bilateral 03/27/2024 CATHETER PLACEMENT EXTERNAL CAROTID ARTERY performed by Yann Jackson MD at OR [facility] CAROTID (EXTERNAL) ARTERY CATHETHER PLACEMENT Bilateral 04/15/2024 CATHETER PLACEMENT EXTERNAL CAROTID ARTERY performed by Yann Jackson MD at OR [facility] CATHETER OCCLUSION/EMBOLIZATION,PSYCHIATRIC NP N/A 04/15/2024 TRANSCATHETER PERMANENT ARTERIAL OCCLUSION CENTRAL NERVOUS SYSTEM performed by Yann Jackson MD at OR [facility] CERVICAL LAMINOPLAST W/DECOMP,RECON 06/17/2006 Dr. Potts COLONOSCOPY, DIAGNOSTIC (RECTUM) 03/08/2015 adenomatous polyps, repeat 5 yrs/COLONOSCOPY FLEXIBLE PROXIMAL DIAGNOSTIC performed by Rene Elise MD at ENDOSCOPY [facility] COLONOSCOPY, DIAGNOSTIC (RECTUM) 07/27/2020 benign adenomatous polyps / COLONOSCOPY FLEXIBLE PROXIMAL DIAGNOSTIC performed by Rene Elise MD at ENDOSCOPY [facility] COLONOSCOPY, GI REFERRAL OP 01/16/2005 Dr. Mcneil - diverticulosis CT SINUSES W WO CONTRAST 06/06/2006 air fluid levels in bilateral maxillary and sphenoid sinuses, frontal sinus opacified, mucosal thickening of ethmoids, left osteomeatal complex opacified, left nasal septal deviation EGD, FLEXIBLE, DIAGNOSTIC 11/14/2020 [facility], hiatal hernia, repeat 6 mo / ESOPHAGOGASTRODUODENOSCOPY (EGD), FLEXIBLE, TRANSORAL, DIAGNOSTIC performed by Santi Edwards MD at ENDOSCOPY [facility] EGD, FLEXIBLE, DIAGNOSTIC 08/29/2021 [place], hiatal hernia, repeat 2 yrs / ESOPHAGOGASTRODUODENOSCOPY (EGD), FLEXIBLE, TRANSORAL, DIAGNOSTIC performed by Santi Edwards MD at ENDOSCOPY [facility] EGD, FLEXIBLE, DIAGNOSTIC 09/30/2020 Bleeding esophagitis with underlying Contreras's esophagus, repeat 6 wks / INPT [facility] EGD, FLEXIBLE, W/BIOPSY 08/16/2006 path-no abnormalities FULL PULMONARY FUNCTION TEST 05/2000 HEMORRHOIDECTOMY, SIMPLE, 1 COLUMN Remote past ILIAC ART. REVASC W/ STENT+ANGIOPLASTY 04/16/2024 ILIAC ARTERY REVASC W/ STENT+ANGIOPLASTY performed by Samson Dennis MD at OR [facility] INTRACRANIAL ARTERIES CATH PLACEMENT Bilateral 04/15/2024 CATHETER PLACEMENT EACH INTRACRANIAL BRANCH OF THE INTERNAL CAROTID OR VERTEBRAL ARTERIES performedby Yann Jackson MD at OR [facility] IR ARTERIOGRAM EXTREMITY UNILATERAL 04/16/2024 IMAGING SUPERVISION & INTERPRETATION EXTREMITY UNILATERAL performed by Samson Dennis MD at [facility] L-/S-SPINE PARAVERTEBRAL FACET INJ,1 LEVEL 02/09/2019 L-/S-SPINE PARAVERTEBRAL FACET INJ, 1 LEVEL performed by Chris Caballero DO at [facility] L-/S-SPINE PARAVERTEBRL FACET INJ,2 LEVELS 02/09/2019 L-/S-SPINE PARAVERTEBRAL FACET INJ, 2 LEVELS performed by Chris Caballero DO at [facility] LUMBAR DISC ARTHROPLAST,REMV,ADDL INTERSPCE 01/2010 Dr Potts LUMBAR SPINE FUSION W/BONE GRAFT 02/23/2005 Dr. Potts - [facility] LUMBAR SPINE FUSION W/BONE GRAFT 07/19/2016 Dr. Potts - [facility] MAMMOGRAM SCREENING-BILATERAL 02/1999 REMOVAL OF OVARY/OVIDUCT(S) 18 yo right REMOVE CATARACT, INSERT LENS PROSTH 12/2004 bilateral - [facility] REMOVE GALLBLADDER REVERSE TOTAL SHOULDER ARTHROPLASTY Left 09/29/2020 [facility] SACROILIAC JOINT INJECT W/GUIDANCE 11/13/2018 INJECTION SACROILIAC JOINT performed by Chris Caballero DO at [facility] SACROILIAC JOINT INJECT W/GUIDANCE 12/11/2018 INJECTION SACROILIAC JOINT performed by Chris Zayass, DO at OR [facility] SHOULDER ARTHROSCOPY/SURGERY 06/07/2010 [facility] - [facility]- right shoulder repair SPINAL FUSION, LUMBAR, COMBINED 07/19/2016 Dr. Potts- [facility] TOTAL ABD HYSTERECTOMY W/WO REMOVAL OF TUBE(S) 26 yo one ovary still in VERTEBRAL ARTERY CATHETER PLACEMENT Bilateral 03/27/2024 CATHETER PLACEMENT VERTEBRAL ARTERY, performed by Yann Jackson MD at [facility] VERTEBRAL ARTERY CATHETER PLACEMENT Bilateral 04/15/2024 CATHETER PLACEMENT VERTEBRAL ARTERY, performed by Yann Jackson MD at OR [facility] FAMILY HISTORY: Family History Problem Relation Name Age of Onset Other (CAD) Father Hypertension Mother SOCIAL HISTORY: Social History Tobacco Use Smoking status: Every Day Current packs/day: 1.00 Average packs/day: 1 pack/day for 57.5 years (57.5 ttl pk-yrs) Types: Cigarettes Start date: 1965 Smokeless tobacco: Never Vaping Use Vaping status: Not on file Substance Use Topics Alcohol use: No Drug use: No ALLERGIES: Ampicillin, Azithromycin, and Ranitidine REVIEW OF SYSTEMS: As above, otherwise negative VISUAL EXAMINATION: Visual Acuity: Near card with correction (OTC Readers) Right: 20/25-3 Left: 20/30-3 Color Plates: Right : 9/10 Left: 10/10 Intraocular Pressure (Tonopen): Right: 10, 11 Left: 14, 14 Motility: Right: Full ductions and versions Left: Mild restriction in all gazes. Pupils: Small APD - left eye ANTERIOR SEGMENT EXAMINATION: Adnexa/Lids: Right: Ptosis OS>OD Left: Ptosis OS>OD Conjunctiva/Sclera: Right: clear, no discharge Left: Mild chemosis Cornea: Right: DTBUT Left: DTBUT Anterior Chamber: Right: deep and quiet Left: deep and quiet Iris: Right: normal stroma Left: normal stroma Lens: Right: PCIOL Left: PCIOL FUNDUS EXAMINATION: Right: Dilated Left: Dilated Vitreous: Right: +PVD Left: +PVD Optic Nerve Cup to Disc Ratio: Right: No edema, heme, pallor, or glaucomatous changes Left: No edema, heme, pallor, or glaucomatous changes Right Retina: Macula: Good foveal reflex. Flat. No heme or roberto edema. Mid-Periphery: Normal. Periphery: Normal. Depressed exam deferred. Left Retina: Macula: Good foveal reflex. Flat. No heme or roberto edema. Mid-Periphery: Normal. Periphery: Normal. Depressed exam deferred. LABS: CBC Results: Results for orders placed or performed during the hospital encounter of 04/21/24 CBC Result Value Ref Range WBC 18.97 (H) 4.00 - 10.80 K/uL RBC 2.63 3.85 - 5.15 M/uL HGB 8.0 (L) 12.0 - 15.3 g/dL HCT 25.3 (L) 36.0 - 45.2 % MCV 96.2 81.5 - 97.5 fL MCH 30.4 27.0 - 34.0 pg MCHC 31.6 32.0 - 36.0 g/dL RDW 15.3 11.5 - 15.5 % PLT 176 140 - 400 K/uL MPV 10.3 6.6 - 11.1 fL nRBCs 0 <=0 /100 WBCs Imaging: Reviewed. IMPRESSION / PLAN: Binocular Diplopia and Left Sided Proptosis in the Setting of Left-Sided Carotid-Cavernous Fistula -Patient presenting with left-sided chemosis, proptosis, mild afferent pupillary defect, slight restriction in extraocular motility in addition to her week or so of binocular diplopia. These findingsare commonly seen in patients with carotid cavernous fistulas. Notably, patient's visual acuity, color vision, and intraocular pressure are all great in each eye. -With reassuring visual acuity, color vision, and intraocular pressures, no acute ophthalmology intervention indicated at this time -Consider CTA/MRA of orbits and head if new or worsening ocular complaints. -Mgmt of carotid-cavernous fistula per neurosurgery -Recommend starting artificial tears - one drop each eye up to four times a day as needed for relief of ocular discomfort. Please re-consult ophthalmology if patient is developing new or worsening ocular complaints. Recommend outpatient follow-up with her primary deputy court clerk. The patient will be discussed with Dr. Monteiro. Frank Coelho MD PGY-3 Ophthalmology I have discussed the patient's management with the medical trainee and agree with the note. Please refer to the documented findings and plan of care. This patient's visit today consisted of a service. I was readily available for immediate [id number] consultation and assistance. I have reviewed the medical history, physical examination, diagnosis, and plan. Patricia Monteiro MD * Kareem Cabrera MD - 04/22/2024 1:36 PM ESTAssociated Order(s): NEUROSURGERY CONSULT IP CONSULT - Neurosurgery [address] [id number] Name: Josefa Ramírez Location: [facility] B335/[id number] Date: 04/22/2024 Time: 1:37 PM REQUESTING SERVICE: Hospital medicine REASON FOR CONSULT: New swelling in the left eye - recent cavernous sinus fistula s/p coil embolization. 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 This was found during workup for left eye pain and redness. She underwent diagnostic cerebral angiogram with Dr. Damon on 03/27/2024. She has recovered well from the procedure outside of minor bruising of the access site of the right radial artery. She then underwent endovascular treatment of L CCF with coils viatransvenous approach with Dr. Jackson 04/15/24. Post procedure patient developed left lower extremity acute limb ischemia, she underwent abdominal aortogram, left lower extremity angiography, and open left iliac catheter thromboembolectomy via groin incision, and left external iliac viabahn stent grafting of dissection flap on 04/16/24 with vascular surgery. Regarding eye pain and redness, her symptoms improved after neurosurgery. Patient was subsequently discharged home in stable condition. Patient was transferred from [facility] on 04/22/24 for concerns of retroperitoneal hematoma in setting of recent vascular surgery and associated hypotension. Neurosurgery was consulted for concerns of left eye swelling and diplopia. Per patient and her family, her vision improvedright after surgery, but the days following has progressively gotten worse. Patient denies any eye pain or pain with EOM. HISTORY: Past Medical History: Past Medical History: Diagnosis Date ACUTE PEPTIC [...] of humerus, left, closed, initial encounter 08/07/2019 [facility] HTN, goal below 130/80 04/19/2009 Hypercalcemia 09/2008 Kidney disease, chronic, stage III (GFR 30-59 ml/min) ([facility]) Need for prophylactic hormone replacement therapy (postmenopausal) Other atopic dermatitis and related conditions Other chronic sinusitis Persistent insomnia 06/09/2013 Plantar fibromatosis 02/07/2007 Primary localized osteoarthrosis, lower leg 09/05/2007 Psoriasis 08/11/2014 Rotator cuff arthropathy 11/02/2013 Rotator cuff rupture 05/29/2010 right Senile osteoporosis 02/11/2011 Tobacco use disorder 03/09/2009 Tubular adenoma of colon Vitamin D deficiency 05/18/2009 Past Surgical History: Past Surgical History: Procedure Laterality Date ART EMBO FEM-POP,AORTOILIAC LE Left 04/16/2024 THROMBECTOMY EMBOLECTOMY FEMOROPOPLITEAL AORTOILIAC [facility] BLEPHAROPTOSIS, FRONTALIS, REPAIR Bilateral 08/10/2015 CAROTID (INTERNAL) ARTERY CATHETHER PLACEMENT Bilateral 03/27/2024 CATHETER PLACEMENT INTERNAL CAROTID ARTERY RADIAL ACCESS performed by Yann Jackson MD at OR [facility] CAROTID (INTERNAL) ARTERY CATHETHER PLACEMENT Bilateral 04/15/2024 CATHETER PLACEMENT INTERNAL CAROTID ARTERY performed by Yann Jackson MD at [facility] CAROTID (EXTERNAL) ARTERY CATHETHER PLACEMENT Bilateral 03/27/2024 CATHETER PLACEMENT EXTERNAL CAROTID ARTERY performed by Yann Jackson MD at OR [facility] CAROTID (EXTERNAL) ARTERY CATHETHER PLACEMENT Bilateral 04/15/2024 CATHETER PLACEMENT EXTERNAL CAROTID ARTERY performed by Yann Jackson MD at OR [facility] CATHETER OCCLUSION/EMBOLIZATION,PSYCHIATRIC NP N/A 04/15/2024 TRANSCATHETER PERMANENT ARTERIAL OCCLUSION CENTRAL NERVOUS SYSTEM performed by Yann Jackson MD at OR [facility] CERVICAL LAMINOPLAST W/DECOMP,RECON 06/17/2006 Dr. Potts COLONOSCOPY, DIAGNOSTIC (RECTUM) 03/08/2015 adenomatous polyps, repeat 5 yrs/COLONOSCOPY FLEXIBLE PROXIMAL DIAGNOSTIC performed by Rene Elise MD at ENDOSCOPY [facility] COLONOSCOPY, DIAGNOSTIC (RECTUM) 07/27/2020 benign adenomatous polyps / COLONOSCOPY FLEXIBLE PROXIMAL DIAGNOSTIC performed by Rene Elise MD at ENDOSCOPY [facility] COLONOSCOPY, GI REFERRAL OP 01/16/2005 Dr. Mcneil - diverticulosis CT SINUSES W WO CONTRAST 06/06/2006 air fluid levels in bilateral maxillary and sphenoid sinuses, frontal sinus opacified, mucosal thickening of ethmoids, left osteomeatal complex opacified, left nasal septal deviation EGD, FLEXIBLE, DIAGNOSTIC 11/14/2020 [facility], hiatal hernia, repeat 6 mo / ESOPHAGOGASTRODUODENOSCOPY (EGD), FLEXIBLE, TRANSORAL, DIAGNOSTIC performed by Santi Edwards MD at ENDOSCOPY [facility] EGD, FLEXIBLE, DIAGNOSTIC 08/29/2021 [facility], hiatal hernia, repeat 2 yrs / ESOPHAGOGASTRODUODENOSCOPY (EGD), FLEXIBLE, TRANSORAL, DIAGNOSTIC performed by Santi Edwards MD at ENDOSCOPY [facility] EGD, FLEXIBLE, DIAGNOSTIC 09/30/2020 Bleeding esophagitis with underlying Contreras's esophagus, repeat 6 wks / INPT [facility] EGD, FLEXIBLE, W/BIOPSY 08/16/2006 path-no abnormalities FULL PULMONARY FUNCTION TEST 05/2000 HEMORRHOIDECTOMY, SIMPLE, 1 COLUMN Remote past ILIAC ART. REVASC W/ STENT+ANGIOPLASTY 04/16/2024 ILIAC ARTERY REVASC W/ STENT+ANGIOPLASTY performed by Samson Dennis MD at OR [facility] INTRACRANIAL ARTERIES CATH PLACEMENT Bilateral 04/15/2024 CATHETER PLACEMENT EACH INTRACRANIAL BRANCH OF THE INTERNAL CAROTID OR VERTEBRAL ARTERIES performedby Yann Jackson MD at OR [facility] IR ARTERIOGRAM EXTREMITY UNILATERAL 04/16/2024 IMAGING SUPERVISION & INTERPRETATION EXTREMITY UNILATERAL performed by Samson Dennis MD at [facility] L-/S-SPINE PARAVERTEBRAL FACET INJ,1 LEVEL 02/09/2019 L-/S-SPINE PARAVERTEBRAL FACET INJ, 1 LEVEL performed by Chris Caballero DO at [facility] L-/S-SPINE PARAVERTEBRL FACET INJ,2 LEVELS 02/09/2019 L-/S-SPINE PARAVERTEBRAL FACET INJ, 2 LEVELS performed by Chris Caballero DO at [facility] LUMBAR DISC ARTHROPLAST,REMV,ADDL INTERSPCE 01/2010 Dr Potts LUMBAR SPINE FUSION W/BONE GRAFT 02/23/2005 Dr. Potts - [facility] LUMBAR SPINE FUSION W/BONE GRAFT 07/19/2016 Dr. Potts - [facility] MAMMOGRAM SCREENING-BILATERAL 02/1999 REMOVAL OF OVARY/OVIDUCT(S) 18 yo right REMOVE CATARACT, INSERT LENS PROSTH 12/2004 bilateral - [facility] REMOVE GALLBLADDER REVERSE TOTAL SHOULDER ARTHROPLASTY Left 09/29/[address] [facility] SACROILIAC JOINT INJECT W/GUIDANCE 11/13/2018 INJECTION SACROILIAC JOINT performed by Chris Caballero DO at [facility] SACROILIAC JOINT INJECT W/GUIDANCE 12/11/2018 INJECTION SACROILIAC JOINT performed by Chris Caballero DO at [facility] SHOULDER ARTHROSCOPY/SURGERY 06/07/2010 [facility] - [facility]- right shoulder repair SPINAL FUSION, LUMBAR, COMBINED 07/19/2016 Dr. Potts- [facility] TOTAL ABD HYSTERECTOMY W/WO REMOVAL OF TUBE(S) 26 yo one ovary still in VERTEBRAL ARTERY CATHETER PLACEMENT Bilateral 03/27/2024 CATHETER PLACEMENT VERTEBRAL ARTERY, performed by Yann Jackson MD at [facility] VERTEBRAL ARTERY CATHETER PLACEMENT Bilateral 04/15/2024 CATHETER PLACEMENT VERTEBRAL ARTERY, performed by Yann Jackson MD at OR [facility] ROS: A full ten point ROS was reviewed and are only positive for the above noted pertinent complaints PHYSICAL EXAMINATION: Most Recent Vital Signs: BP: 130 mmHg/57 mmHg (04/22/24 1303) Pulse: 89 (04/22/24 1303) Resp: 20 (04/22/24 1303) Temp: 37 C (04/22/24 1303) Temp Summary: Temp Min: 36.6 C (97.9 F) Max: 37.5 C (99.5 F) SpO2: 94 % (04/22/24 1303) O2 flow rate: Supplemental O2 Delivery: Room Air, None (04/22/24 1328) Vital Signs Over Last 24 Hours: Systolic BP: Most Recent Systolic BP Av.1 mmHg Min: 90 mmHg Max: 139 mmHg Temperature: Most Recent Temperature Av C Min: 36.61 C Max: 37.5 C Pulse: Pulse Av.8 Min: 70 Max: 89 Respirations: Resp Av.6 Min: 15 Max: 24 SpO2: SpO2 Av.9 % Min: 91 % Max: 100 % Gen: Well nourished, well developed, NAD Ext: Warm, dry and intact EENT: periorbital edema of left eye, no conjunctivitis Psych: Pleasant and cooperative, normal mood and affect Neuro: AAO x 3 No aphasia or dysarthria Cranial Nerves: CN 2,3 - PERRL CN 3, 4, 6 - EOMI, no nystagmus CN 5 - intact facial sensation to light touch in all 3 distributions CN 7 - no facial assymetry CN 8 - hearing grossly intact Alysa spontaneously and to command 5/5 motor strength in bilateral deltoids, biceps, triceps, IO, IP, quadriceps, hamstrings, gastrocnemius, TA, and EHL Sensation equal and intact throughout BUE/BLE Normal finger-nose testing No pronator drift LABS: CHEMISTRY: BUN, Creatinine, GFR Estimated, Sodium, Potassium, Chloride, Carbon Dioxide, Glucose, Calcium (see below for most recent value): Lab Results Component Value Date/Time BUN 15 04/22/2024 05:30 AM BUN 16 05/21/2019 01:17 PM CREAT 0.8 04/22/2024 05:30 AM CREAT 0.85 03/06/2022 12:00 AM CREAT 1.0 05/21/2019 01:17 PM GFRESTIMATED 53.7 (L) 05/21/2019 01:17 PM NA 138 04/22/2024 05:30 AM NA 145 05/21/2019 01:17 PM POTASSIUM 3.9 04/22/2024 05:30 AM POTASSIUM 4.0 04/15/2024 03:23 PM POTASSIUM 4.2 03/06/2022 12:00 AM POTASSIUM 4.3 05/21/2019 01:17 PM CL 107 04/22/2024 05:30 AM CL 105 05/21/2019 01:17 PM CO2 22 04/22/2024 05:30 AM CO2 26 05/21/2019 01:17 PM CA 8.1 (L) 04/22/2024 05:30 AM CA 9.8 05/21/2019 01:17 PM COAGS: PT, INR (see below for three most recent values): Lab Results Component Value Date/Time INR 1.5 (H) 04/21/2024 06:45 PM INR 1.2 04/17/2024 05:54 AM INR 1.3 (H) 04/16/2024 05:39 PM IMAGING: CTA chest/abdomen/pelvis Impression: 1. New left retroperitoneal hematomas involving the iliopsoas muscle and posterior pararenal space measuring approximately 4.6 x 6 cm. 2. Mild pulmonary edema with small left pleural effusion. 3. 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 Given the recent benign appearance on recent CTA, the heterogeneity may represent hemorrhage within the cyst. Attention on follow-up exams. COUNSELING TIME: 61 minutes including direct patient contact; image & chart review; and communication with consulting & neurosurgery team IMPRESSION: This is a 88 year old, female with a PMH of COPD, HTN, dyslipidemia and IBS 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 She presents to [facility] for concerns for retroperitoneal hematoma insetting of recent vascular surgery and associated hypotension. Neurosurgery was consulted for concerns of left eye swelling and diplopia. RECOMMENDATIONS: - no emergent neurosurgical intervention at this time - pain control per primary - treat UTI per primary - treatment of retroperitoneal hematoma per vascular Further plans after discussion with Dr. Cabrera, attending neurosurgeon. Tamica Cheng PA-C 04/22/2024 2:18 PM Addendum: Please consult opthalmology to assess intraorbital pressure of L eye Discussed with Dr. Rick Martinez MD Neurosurgery, PGY3 I did not see the patient, but I have reviewed the resident/fellow physician documentation and was readily available on date of service. * Mary Chery, PT - 04/22/2024 12:15 PM ESTAssociated Order(s): ADULT PHYSICAL THERAPY CONSULT IP GENERAL EVALUATION - Physical Therapy [address] [address] Name: Josefa Ramírez Location: [facility] B335/A Date: 04/22/2024 Time: 1214 Josefa Ramírez is a/an 88 year old female. Patient Status: Inpatient Insurance: Payor: [facility] [place] Plan: [facility] [place] CLASSIC 1 PART D -LD Product Type: *No Product type* Patient Seen: at bedside, nursing cleared patient for therapy Patient Identified By: Name, ID Band and Date Diagnosis: retroperitoneal hematoma (04/22/241214) Status of treatment: Evaluation completed (04/22/241214) Orders: PT evaluation and treatment;OOB (04/22/241214) Weight Bearing Status: Weight bearing as tolerated (04/22/241214) Precautions: Falls;Safety (squints L eye shut due to double vision) (04/22/241214) Total Treatment Time--free text: 12 (04/22/24 1215) Past Medical History: Past Medical History: Diagnosis Date ACUTE PEPTIC [...] of humerus, left, closed, initial encounter 08/07/2019 [place] [facility] HTN, goal below 130/80 04/19/2009 Hypercalcemia 09/2008 Kidney disease, chronic, stage III (GFR 30-59 ml/min) ([facility]) Need for prophylactic hormone replacement therapy (postmenopausal) Other atopic dermatitis and related conditions Other chronic sinusitis Persistent insomnia 06/09/2013 Plantar fibromatosis 02/07/2007 Primary localized osteoarthrosis, lower leg 09/05/2007 Psoriasis 08/11/2014 Rotator cuff arthropathy 11/02/2013 Rotator cuff rupture 05/29/2010 right Senile osteoporosis 02/11/2011 Tobacco use disorder 03/09/2009 Tubular adenoma of colon Vitamin D deficiency 05/18/2009 Past Surgical History: Past Surgical History: Procedure Laterality Date ART EMBO FEM-POP,AORTOILIAC LE Left 04/16/2024 THROMBECTOMY EMBOLECTOMY FEMOROPOPLITEAL AORTOILIAC ARTERY performed by Samson Dennis, [place] OR [facility] BLEPHAROPTOSIS, FRONTALIS, REPAIR Bilateral 08/10/2015 CAROTID (INTERNAL) ARTERY CATHETHER PLACEMENT Bilateral 03/27/2024 CATHETER PLACEMENT INTERNAL CAROTID ARTERY RADIAL ACCESS performed by Yann Jackson MD at OR [facility] CAROTID (INTERNAL) ARTERY CATHETHER PLACEMENT Bilateral 04/15/2024 CATHETER PLACEMENT INTERNAL CAROTID ARTERY performed by Yann Jackson MD at [facility] CAROTID (EXTERNAL) ARTERY CATHETHER PLACEMENT Bilateral 03/27/2024 CATHETER PLACEMENT EXTERNAL CAROTID ARTERY performed by Yann Jackson MD at OR [facility] CAROTID (EXTERNAL) ARTERY CATHETHER PLACEMENT Bilateral 04/15/2024 CATHETER PLACEMENT EXTERNAL CAROTID ARTERY performed by Yann Jackson MD at OR [facility] CATHETER OCCLUSION/EMBOLIZATION,PSYCHIATRIC NP N/A 04/15/2024 TRANSCATHETER PERMANENT ARTERIAL OCCLUSION CENTRAL NERVOUS SYSTEM performed by Yann Jackson MD at OR [facility] CERVICAL LAMINOPLAST W/DECOMP,RECON 06/17/2006 Dr. Potts COLONOSCOPY, DIAGNOSTIC (RECTUM) 03/08/2015 adenomatous polyps, repeat 5 yrs/COLONOSCOPY FLEXIBLE PROXIMAL DIAGNOSTIC performed by Rene Elise MD at ENDOSCOPY [facility] COLONOSCOPY, DIAGNOSTIC (RECTUM) 07/27/2020 benign adenomatous polyps / COLONOSCOPY FLEXIBLE PROXIMAL DIAGNOSTIC performed by Rene Elise MD at ENDOSCOPY [facility] COLONOSCOPY, GI REFERRAL OP 01/16/2005 Dr. Mcneil - diverticulosis CT SINUSES W WO CONTRAST 06/06/2006 air fluid levels in bilateral maxillary and sphenoid sinuses, frontal sinus opacified, mucosal thickening of ethmoids, left osteomeatal complex opacified, left nasal septal deviation EGD, FLEXIBLE, DIAGNOSTIC 11/14/2020 [facility], hiatal hernia, repeat 6 mo / ESOPHAGOGASTRODUODENOSCOPY (EGD), FLEXIBLE, TRANSORAL, DIAGNOSTIC performed by Santi Edwards MD at ENDOSCOPY [facility] EGD, FLEXIBLE, DIAGNOSTIC 08/29/2021 [facility], hiatal hernia, repeat 2 yrs / ESOPHAGOGASTRODUODENOSCOPY (EGD), FLEXIBLE, TRANSORAL, DIAGNOSTIC performed by Santi Edwards MD at ENDOSCOPY [facility] EGD, FLEXIBLE, DIAGNOSTIC 09/30/2020 Bleeding esophagitis with underlying Contreras's esophagus, repeat 6 wks / INPT [facility] EGD, FLEXIBLE, W/BIOPSY 08/16/2006 path-no abnormalities FULL PULMONARY FUNCTION TEST 05/2000 HEMORRHOIDECTOMY, SIMPLE, 1 COLUMN Remote past ILIAC ART. REVASC W/ STENT+ANGIOPLASTY 04/16/2024 ILIAC ARTERY REVASC W/ STENT+ANGIOPLASTY performed by Samson Dennis MD at OR [facility] INTRACRANIAL ARTERIES CATH PLACEMENT Bilateral 04/15/2024 CATHETER PLACEMENT EACH INTRACRANIAL BRANCH OF THE INTERNAL CAROTID OR VERTEBRAL ARTERIES performedby Yann Jackson MD at OR [facility] IR ARTERIOGRAM EXTREMITY UNILATERAL 04/16/2024 IMAGING SUPERVISION & INTERPRETATION EXTREMITY UNILATERAL performed by Samson Dennis MD at OR [facility] L-/S-SPINE PARAVERTEBRAL FACET INJ,1 LEVEL 02/09/2019 L-/S-SPINE PARAVERTEBRAL FACET INJ, 1 LEVEL performed by Chris Caballero DO at [facility] L-/S-SPINE PARAVERTEBRL FACET INJ,2 LEVELS 02/09/2019 L-/S-SPINE PARAVERTEBRAL FACET INJ, 2 LEVELS performed by Chris Caballero DO at [facility] LUMBAR DISC ARTHROPLAST,REMV,ADDL INTERSPCE 01/2010 Dr Potts LUMBAR SPINE FUSION W/BONE GRAFT 02/23/2005 Dr. Potts - [facility] LUMBAR SPINE FUSION W/BONE GRAFT 07/19/2016 Dr. Potts - [facility] MAMMOGRAM SCREENING-BILATERAL 02/1999 REMOVAL OF OVARY/OVIDUCT(S) 18 yo right REMOVE CATARACT, INSERT LENS PROSTH 12/2004 bilateral - [facility] REMOVE GALLBLADDER REVERSE TOTAL SHOULDER ARTHROPLASTY Left 09/29/[address] [facility] SACROILIAC JOINT INJECT W/GUIDANCE 11/13/2018 INJECTION SACROILIAC JOINT performed by Chris Caballero DO at [facility] SACROILIAC JOINT INJECT W/GUIDANCE 12/11/2018 INJECTION SACROILIAC JOINT performed by Chris Caballero DO at OR [facility] SHOULDER ARTHROSCOPY/SURGERY 06/07/2010 [facility] - [facility]- right shoulder repair SPINAL FUSION, LUMBAR, COMBINED 07/19/2016 Dr. Potts- [facility] TOTAL ABD HYSTERECTOMY W/WO REMOVAL OF TUBE(S) 26 yo one ovary still in VERTEBRAL ARTERY CATHETER PLACEMENT Bilateral 03/27/2024 CATHETER PLACEMENT VERTEBRAL ARTERY, performed by Yann Jackson MD at [facility] VERTEBRAL ARTERY CATHETER PLACEMENT Bilateral 04/15/2024 CATHETER PLACEMENT VERTEBRAL ARTERY, performed by Yann Jackson MD at OR [facility] Subjective: Patient resting in bed, agreeable to PT evaluation Social History/Disposition Lives with: Spouse (11/27/24 1215) Assistance available: Yes (04/22/241214) Dwelling type: Apartment (04/22/241214) Entry steps: None (04/22/241214) Inside steps: Elevator (04/22/241214) Bedroom location: 1st floor (04/22/241214) Bath location: 1st floor full bath (04/22/241214) Prior Level of Function Reported by: Patient (04/22/241214) Ambulation: Ambulatory without device (04/22/241214) Devices at home: Shower chair;Rolling walker (04/22/241214) Observations Consciousness: Alert (04/22/241214) Orientation: Oriented times 4 (04/22/241214) Psychosocial: Patient can communicate basic needs;Patient can converse in a social setting (04/22/241214) Other Findings: Yes (04/22/241214) Findings: Light touch sensation (04/22/241214) Light Touch Sensation Results: Intact;LLE;RLE (04/22/241214) Sitting Posture: Rounded shoulders (04/22/241214) Standing Posture: Rounded shoulders (04/22/241214) Pain: No complaints of pain Range of Motion Range of Motion: WFL (04/22/241214) Strength Assessment Strength Assessment: Deficits noted (04/22/241214) WNL, except: LLE;RLE (04/22/241214) LLE: 4+/5 (04/22/241214) RLE: 4+/5 (04/22/241214) P.T. Bed Mobility Roll (Right): Supervision (04/22/241214) Roll (Left): Supervision (04/22/241214) Supine-Sit: Supervision (04/22/241214) Sit-Supine: Supervision (04/22/241214) Transfers Sit-Stand: Supervision (04/22/241214) Stand-Sit: Supervision (04/22/241214) Ambulation Assist: Supervision (04/22/241214) Distance Ambulated (feet): 10 (04/22/24 1313) Assistive Device: No device (11/27/24 1313) Ambulatory safety: Patient verbalizes insight of current deficits (04/22/241214) Balance Sit (Static): Fair (04/22/241214) Sit (Dynamic): Fair (04/22/241214) Stand (Static): Fair (04/22/241214) Stand (Dynamic): Fair (04/22/241214) Patient and or Family Goal(s): to get well and to return home Patient Education Review of Precautions: Safety;Fall (role of PT) (04/22/241214) Safety Awareness: Patient verbalizes insight of current deficits (04/22/241214) Preferred learning method: Combination (04/22/241214) Barriers to learning: Medical Status (04/22/241214) Method of Education: Verbalized to patient (04/22/241214) Topic of Education: Safety with mobility, Goals/plan of care, and Fall prevention Method of Education: Verbal discussion and explanation provided to patient: verbalized understanding and or agreement of this information Treatment Provided: Evaluation Moderate Complexity 12 minutes - 55127: Patient was cooperative, pleasant, and motivated during treatment session. Moderate complexity evaluation performed and 1-2 personal factors or comorbidities were identified that will impact plan of care, including history of COPD. Patient presents with limitations in strength, bed mobility, transfers, gait, balance, endurance, and safety, which will impact plan of care. These limitations will be addressed by the goals set for this patient. Alarm Status Patient positioned in: Bed (04/22/241214) With: Call hdz in reach (alarm not activated upon therapist arrival) (04/22/241214) Treatment Status: Treatment at bedside (04/22/241214) Goals: Demonstrate Bed Mobility with: Sit to supine: modified independent Supine to sit:modified independent Demonstrate transfers with: Sit to stand: modified independent Stand to sit: modified independent Bed to chair: modified independent with least restrictive device Chair to bed: modified independent with least restrictive device Demonstrate ambulation: distance: 250 feet with assistive device: least restrictive device and level of assistance: modified independent Increase Strength: to 5/5 BLE Increase Balance: fair+ sitting / fair+ standing Increase safety: with all functional mobility Time Frame: 10 visits Assessment: Patient is 88 y/o female with dx retroperitoneal hematoma. Prior to admission, patient lives with spouse and was independent with mobility with no device. Patient squints L eye shut due to double vision. Patient currently requires supervision for bed mobility, sit<>stand, and ambulation with rolling walker. Mobility this date limited by fatigue. Ended session with patient resting comfortably in bed. Patient's overall mobility is limited by decreased LE strength, decreased balance, and overall medical status. Patient would benefit from continued PT to maximize functional independence. Please consider home with post-acute care services which may include home health or outpatient therapy. The level of care will be determined in collaboration with the patient, family/caregiver and care team members. Treatment Plan: Bed mobility training, Transfer training, Gait training, Strengthening exercises: BLE, Balance activities, and Educate on safety with functional mobility Anticipated Frequency (on eval): (1-5x/week) (04/22/241214) Deficits requiring P.T. treatment needs: Safety;Mobility;Balance;Weakness;Endurance;Lower extremitystrength (04/22/24 121) Equipment needs: No device (04/22/24 121) AM-PAC Score With Stairs : 18 (04/22/24 1313) A portion of this AM-PAC assessment not scored based on functional assessment rather clinical decision making utilized based on current findings and/or prior level of function. Please refer to futureAM-PAC calculations of functional ability as they become available. Mary Chery, PT, DPT Physical Therapy [facility] * Lorena Amador OTR/[place] - 04/22/2024 12:15 PM ESTAssociated Order(s): ADULT OCCUPATIONAL THERAPY CONSULT IP GENERAL EVALUATION - Occupational Therapy [address] [id number] Name: Josefa Ramírez Location: [facility] [id number] Date: 04/22/2024 Time: 1214 Josefa Ramírez is a 88 year old female. Patient Status: Inpatient Insurance: Payor: [facility] [place] Plan: [facility] [place] CLASSIC 1 PART D MC-LD Product Type: *No Product type* Patient Seen: at bedside, nursing cleared patient for therapy Patient Identified By: Name, ID Band and Date Diagnosis: retroperitonal hematoma (04/22/24 1215) Status of treatment: Evaluation completed (04/22/24 1215) Orders: OT evaluation and treatment (04/22/24 1215) Weight Bearing Status: Weight bearing as tolerated (04/22/24 1215) Precautions: Falls;Safety (04/22/24 1215) Total Treatment Time: 12 (04/22/24 1215) Past Medical History: Past Medical History: Diagnosis Date ACUTE PEPTIC [...] of humerus, left, closed, initial encounter 08/07/2019 [facility] HTN, goal below 130/80 04/19/2009 Hypercalcemia [...] Vitamin D deficiency 05/18/2009 Past Surgical History: Past Surgical History: Procedure Laterality Date ART EMBO FEM-POP,AORTOILIAC LE Left 04/16/2024 THROMBECTOMY EMBOLECTOMY FEMOROPOPLITEAL AORTOILIAC ARTERY performed by Samson Dennis MDat OR [facility] BLEPHAROPTOSIS, FRONTALIS, REPAIR Bilateral 08/10/2015 CAROTID (INTERNAL) ARTERY CATHETHER PLACEMENT Bilateral 03/27/2024 CATHETER PLACEMENT INTERNAL CAROTID ARTERY RADIAL ACCESS performed by Yann Jackson MD at OR [facility] CAROTID (INTERNAL) ARTERY CATHETHER PLACEMENT Bilateral 04/15/2024 CATHETER PLACEMENT INTERNAL CAROTID ARTERY performed by Yann Jackson MD at OR [facility] CAROTID (EXTERNAL) ARTERY CATHETHER PLACEMENT Bilateral 03/27/2024 CATHETER PLACEMENT EXTERNAL CAROTID ARTERY performed by Yann Jackson MD at OR [facility] CAROTID (EXTERNAL) ARTERY CATHETHER PLACEMENT Bilateral 04/15/2024 CATHETER PLACEMENT EXTERNAL CAROTID ARTERY performed by Yann Jackson MD at OR [facility] CATHETER OCCLUSION/EMBOLIZATION,PSYCHIATRIC NP N/A 04/15/2024 TRANSCATHETER PERMANENT ARTERIAL OCCLUSION CENTRAL NERVOUS SYSTEM performed by Yann Jackson MD at OR [facility] CERVICAL LAMINOPLAST W/DECOMP,RECON 06/17/2006 Dr. Potts COLONOSCOPY, DIAGNOSTIC (RECTUM) 03/08/2015 adenomatous polyps, repeat 5 yrs/COLONOSCOPY FLEXIBLE PROXIMAL DIAGNOSTIC performed by Rene Elise MD at ENDOSCOPY [facility] COLONOSCOPY, DIAGNOSTIC (RECTUM) 07/27/2020 benign adenomatous polyps / COLONOSCOPY FLEXIBLE PROXIMAL DIAGNOSTIC performed by Rene Elise MD at ENDOSCOPY [facility] COLONOSCOPY, GI REFERRAL OP 01/16/2005 Dr. Mcneil - diverticulosis CT SINUSES W WO CONTRAST 06/06/2006 air fluid levels in bilateral maxillary and sphenoid sinuses, frontal sinus opacified, mucosal thickening of ethmoids, left osteomeatal complex opacified, left nasal septal deviation EGD, FLEXIBLE, DIAGNOSTIC 11/14/2020 [facility], hiatal hernia, repeat 6 mo / ESOPHAGOGASTRODUODENOSCOPY (EGD), FLEXIBLE, TRANSORAL, DIAGNOSTIC performed by Santi Edwards MD at ENDOSCOPY [facility] EGD, FLEXIBLE, DIAGNOSTIC 08/29/2021 [place], hiatal hernia, repeat 2 yrs / ESOPHAGOGASTRODUODENOSCOPY (EGD), FLEXIBLE, TRANSORAL, DIAGNOSTIC performed by Santi Edwards MD at ENDOSCOPY [facility] EGD, FLEXIBLE, DIAGNOSTIC 09/30/2020 Bleeding esophagitis with underlying Contreras's esophagus, repeat 6 wks / INPT [facility] EGD, FLEXIBLE, W/BIOPSY 08/16/2006 path-no abnormalities FULL PULMONARY FUNCTION TEST 05/2000 HEMORRHOIDECTOMY, SIMPLE, 1 COLUMN Remote past ILIAC ART. REVASC W/ STENT+ANGIOPLASTY 04/16/2024 ILIAC ARTERY REVASC W/ STENT+ANGIOPLASTY performed by Samson Dennis MD at OR [facility] INTRACRANIAL ARTERIES CATH PLACEMENT Bilateral 04/15/2024 CATHETER PLACEMENT EACH INTRACRANIAL BRANCH OF THE INTERNAL CAROTID OR VERTEBRAL ARTERIES performedby Yann Jackosn MD at OR [facility] IR ARTERIOGRAM EXTREMITY UNILATERAL 04/16/2024 IMAGING SUPERVISION & INTERPRETATION EXTREMITY UNILATERAL performed by Samson Dennis MD at [facility] L-/S-SPINE PARAVERTEBRAL FACET INJ,1 LEVEL 02/09/2019 L-/S-SPINE PARAVERTEBRAL FACET INJ, 1 LEVEL performed by [facility] DO Federico at [facility] L-/S-SPINE PARAVERTEBRL FACET INJ,2 LEVELS 02/09/2019 L-/S-SPINE PARAVERTEBRAL FACET INJ, 2 LEVELS performed by [facility] DO Federico at OR [facility] LUMBAR DISC ARTHROPLAST,REMV,ADDL INTERSPCE 01/2010 Dr Potts LUMBAR SPINE FUSION W/BONE GRAFT 02/23/2005 Dr. Potts - [facility] LUMBAR SPINE FUSION W/BONE GRAFT 07/19/2016 Dr. Potts - [facility] MAMMOGRAM SCREENING-BILATERAL 02/1999 REMOVAL OF OVARY/OVIDUCT(S) 18 yo right REMOVE CATARACT, INSERT LENS PROSTH 12/2004 bilateral - [facility] REMOVE GALLBLADDER REVERSE TOTAL SHOULDER ARTHROPLASTY Left 09/29/[address] [facility] SACROILIAC JOINT INJECT W/GUIDANCE 11/13/2018 INJECTION SACROILIAC JOINT performed by Mittie Dioni Caballero DO at OR [facility] SACROILIAC JOINT INJECT W/GUIDANCE 12/11/2018 INJECTION SACROILIAC JOINT performed by Mittie Dioni Caballero DO at OR [facility] SHOULDER ARTHROSCOPY/SURGERY 06/07/2010 [facility] - [facility]- right shoulder repair SPINAL FUSION, LUMBAR, COMBINED 07/19/2016 Dr. Potts- [facility] TOTAL ABD HYSTERECTOMY W/WO REMOVAL OF TUBE(S) 26 yo one ovary still in VERTEBRAL ARTERY CATHETER PLACEMENT Bilateral 03/27/2024 CATHETER PLACEMENT VERTEBRAL ARTERY, performed by Yann Jackson MD at OR [facility] VERTEBRAL ARTERY CATHETER PLACEMENT Bilateral 04/15/2024 CATHETER PLACEMENT VERTEBRAL ARTERY, performed by Yann Jackson MD at OR [facility] Social History/Disposition Lives with: Spouse (04/22/241214) Assistance available: Yes (04/22/241214) Dwelling type: Apartment (04/22/241214) Entry steps: None (04/22/241214) Inside steps: Elevator (04/22/241214) Bedroom location: 1st floor (04/22/241214) Bath location: 1st floor full bath (04/22/241214) Prior Level of Function Reported by: Patient (04/22/241214) Ambulation: Ambulatory without device (04/22/241214) Grooming: Independent (04/22/241214) Bathing: Independent (04/22/241214) Dressing: Independent (04/22/241214) Feeding: Independent (04/22/241214) Toileting: Independent (04/22/241214) Meal Prep: Independent (04/22/241214) Homemaking: Independent (04/22/241214) Shopping: Independent (04/22/241214) Medication Management: Independent (04/22/241214) Money Management: Independent (04/22/241214) Durable Medical Equipment at home: Wheelchair;Rolling walker (04/22/241214) Pain: No complaints of pain Observations Consciousness: Alert (04/22/241214) Orientation: Oriented times 4 (04/22/241214) Psychosocial: Patient can communicate basic needs;Patient can converse in a social setting (04/22/241214) Visual Deficits: (double vision and patient keeps left eye closed) (04/22/241214) Sitting posture: Forward head;Rounded shoulders (04/22/241214) Standing posture: Forward head;Rounded shoulders (04/22/241214) Safety awareness: The Patient verbalizes insight of current deficits.;The Patient demonstrates carryover of insight during functional tasks.;The Patient can communicate basic needs. (04/22/241214) Other Findings Endurance: Fair (04/22/241214) Light touch sensation: Intact (04/22/241214) Proprioception: Intact (04/22/241214) Coordination: Intact (04/22/241214) Tone: Normal tone (04/22/241214) Edema: No edema noted (04/22/241214) Current Functional Status: Bilateral Upper Extremity Range of Motion: WFL, except (04/22/241214) LUE: Shoulder (limited to 110 degrees flexion) (04/22/241214) Strength Assessment: Deficits noted (04/22/241214) LUE: 4/5 (04/22/241214) RUE: 4/5 (04/22/241214) Self Care Able to provide self care: Yes (04/22/241214) Feeding: Not Tested (04/22/241214) Grooming: Supervision (Please comment) (04/22/241214) Dressing Upper Body: Supervision (Please comment) (simulate reaching for a robe) (04/22/241214) Lower Body: Supervision (Please comment) (socks) (04/22/241214) Functional Ambulation Assistive Device: Rolling walker (04/22/241214) Distance in feet:: 100 (04/22/241214) Level of Assistance: Supervision (Please Comment) (04/22/241214) Bed Mobility Roll (Right): Supervision (04/22/241214) Roll (Left): Supervision (04/22/241214) Supine-Sit: Supervision (Please comment) (04/22/241214) Sit-Supine: Supervision (Please comment) (04/22/241214) OT Transfers Sit-Stand: Supervision (Please comment) (04/22/241214) Stand-Sit: Supervision (Please comment) (04/22/241214) Balance Sit (Static): Fair (04/22/241214) Sit (Dynamic): Fair (04/22/241214) Stand (Static): Fair (04/22/241214) Stand (Dynamic): Fair (04/22/241214) Alarm Status Patient positioned in: Bed (04/22/241214) With: Call hdz in reach (04/22/241214) Patient and Family Goals: to get well Patient Education Education Topic: Role of OT;Plan of care goals (04/22/241214) Review of Precautions: Fall;Safety (04/22/241214) Education Provided to: Patient (04/22/241214) Response to Education: Receptive and agreeable to education (04/22/241214) Barriers to learning: Medical status (04/22/241214) Preferred learning method: Combination (04/22/241214) Treatment Provided: Evaluation Moderate Complexity 12 minutes - 42289: Patient was cooperative, pleasant, and alert during treatment session. Moderate complexity evaluation performed and 3-5 activitylimitations were identified, including ADL deficit, functional mobility deficit, bed mobility deficit, decreased strength, decreased endurance, and impaired balance. Minimal or moderate modification of the functional task was necessary to complete the evaluation. Deficits Requiring O.T. Treatment: Deficits requiring O.T. treatment needs: ADL/self-care;Balance;Endurance;Functional mobility;Safety;Upper extremity strength (04/22/241214) Goals: Increase Strength of: increase 1/2 grade, Demonstrates sitting Balance at: modified independent, Demonstrates standing Balance at: modified independent, Demonstrates self care at: Grooming at Modified Independent , Bathing upper body at Modified Independent , Bathing lower body at Modified In dependent , Upper body dressing at Modified Independent , Lower body dressing at Modified Independent and Toileting at Modified Independent , Demonstrates Activity Tolerance at 40/45 minutes, Demonstrates Bed Mobility with: Supine to Sit: Modified Independent and Sit to Supine: Modified Independent, Demonstrates Transfers with: Sit to Stand: Modified Independent (100% with device/additional time) Stand to Sit: Modified Independent (100% with device/additional time) Bed to Chair/Wheelchair: Modified Independent (100% with device/additional time) Toilet: Modified Independent (100% with device/additional time) , Demonstrates Functional Ambulation: Assistive Device: least restrictive device and Level of Assistance: Modified Independent and Increase safety with transfers, ambulation and self care Goal Time Frame: 10 visits Assessment: patient is a retroperitoneal hematoma and presents with minor deficits in all areas of care and mobility due to decreased strength, balance, activity tolerance, safety, ROm of left arm, double vision and overall medical condition. Supervision to sit up at the edge of the bed. Able to demonstrate UE and LE care with supervision after setup. ROM of the left shoulder is limited at baseline but is not a limiting factor during session. Does verbalize double vision during session and holds left eye closed to counteract that. Stood from the edge of the bed and ambulated with supervision with use of rolling walker and did not demonstrate any significant episodes of loss of balance. Would benefit from continued OT treatment to maximize level of functional independence. Please consider home with post-acute care services which may include home health or outpatient therapy. The level ofcare will be determined in collaboration with the patient, family/caregiver and care team members. Treatment Plan: Visual Compensatory Strategies, Energy Conservation, Safety, Bed mobility training,Functional Ambulation, Transfer training, Upper extremity strengthening, Balance activities: , ADL training , and Endurance Anticipated Frequency (on eval): (1-5 x week) (04/22/241214) AM-PAC Help From Another Person Eating Meals: None (04/22/241214) Help From Another Person Taking Care of Personal Grooming: A little (04/22/241214) Help From Another Person To Put On/Take Off Upper Body Clothing: A little (04/22/241214) Help From Another Person To Put On/Take Off Lower Body Clothing: A little (04/22/241214) Help From Another Person Toileting: A little (04/22/241214) Help From Another Person Bathing: A little (04/22/241214) OT AM-PAC Score: 19 (04/22/241214) OT AM-PAC t-Scale Score: 40.22 (04/22/241214) HLM (Highest Level of Mobility) Goal: Level 6 walk 10 steps or more (04/22/24 1313) A portion of this AM-PAC assessment not scored based on functional assessment ; rather clinical decision making utilized based on current findings and/or prior level of function. Please refer to future AM-PAC calculations of functional ability as they become available. 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 Pt presented to [facility] for concerns of "feeling sick" Pt felt sick to her stomach for the past several days. Describes n/v, SOB, fatigue, malaise. Pt denies back/flank/abdominal/groin pain. CTA from [facility] viewed and reveals small L RP hematoma. No evidence of extravasation, no communication w/ L groin. L pleural effusion. Patent vasculature. Prior to Admission medications Medication Sig Last Dose Discont. Apixaban 5 MG Oral Tablet (Eliquis) Take 2 Tablets by mouth 2 times a day for 7 days, THEN 1 Tablet2 times a day. Clopidogrel Bisulfate 75 MG Oral Tablet (pLAVix) Take 1 Tablet by mouth in the morning. dexAMETHasone 2 MG Oral Tablet (Decadron) Take 2 Tablets by mouth 2 times a day with morning and evening meals for 1 day, THEN 1 Tablet 2 times a day with morning and evening meals for 1 day, THEN 1 Tablet daily with breakfast for 1 day. amLODIPine Besylate 5 MG Oral Tablet (Norvasc) TAKE ONE TABLET BY MOUTH EVERY MORNING Rosuvastatin Calcium 20 MG Oral Tablet (Crestor) TAKE ONE TABLET BY MOUTH EVERY DAY Lisinopril 40 MG Oral Tablet TAKE ONE TABLET BY MOUTH IN THE MORNING Omeprazole 40 MG Oral Capsule Delayed Release (PriLOSEC) TAKE ONE CAPSULE BY MOUTH EVERY MORNING Fluticasone Propionate 50 MCG/ACT Nasal Suspension (Flonase) USE ONE SPRAY IN each nostril IN THE MORNING AND in the evening Loratadine 10 MG Oral Tablet (Claritin) Take 1 Tablet by mouth every night at bedtime. Patient not taking: Reported on 04/20/2024 Cyanocobalamin 1000 MCG Oral Tablet Take 1 Tablet by mouth daily at noon. TYLENOL EX ST ARTHRITIS PAIN 500 MG PO TABS 1-2 tabs as needed for discomfort VITAMIN D 2000 UNITS PO CAPS Take 2,000 Units by mouth daily with dinner. 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 COPD W BRONCHITIS,EMPHYSEMATOS Last PFT - 2006-10-15 COPD, severity to be determined ([facility]) COVID-19 11/24/2021 home test positive, treated with [...] of humerus, left, closed, initial encounter 08/07/2019 [place] [facility] HTN, goal below 130/80 04/19/2009 Hypercalcemia 09/2008 Kidney disease, chronic, stage III (GFR 30-59 ml/min) ([facility]) Need for prophylactic hormone replacement therapy [...] ARTERY performed by Samson Dennis MDat OR [facility] BLEPHAROPTOSIS, FRONTALIS, REPAIR Bilateral 08/10/2015 CAROTID (INTERNAL) ARTERY CATHETHER PLACEMENT Bilateral 03/27/2024 CATHETER PLACEMENT INTERNAL CAROTID ARTERY RADIAL ACCESS performed by Yann Jackson MD at OR [facility] CAROTID (INTERNAL) ARTERY CATHETHER PLACEMENT Bilateral 04/15/2024 CATHETER PLACEMENT INTERNAL CAROTID ARTERY performed by Yann Jackson MD at OR [facility] CAROTID (EXTERNAL) ARTERY CATHETHER PLACEMENT Bilateral 03/27/2024 CATHETER PLACEMENT EXTERNAL CAROTID ARTERY performed by Yann Jackson MD at OR [facility] CAROTID (EXTERNAL) ARTERY CATHETHER PLACEMENT Bilateral 04/15/2024 CATHETER PLACEMENT EXTERNAL CAROTID ARTERY performed by Yann Jackson MD at OR [facility] CATHETER OCCLUSION/EMBOLIZATION,PSYCHIATRIC NP N/A 04/15/2024 TRANSCATHETER PERMANENT ARTERIAL OCCLUSION CENTRAL NERVOUS SYSTEM performed by Yann Jackson MD at OR [facility] CERVICAL LAMINOPLAST W/DECOMP,RECON 06/17/2006 Dr. Potts COLONOSCOPY, DIAGNOSTIC (RECTUM) 03/08/2015 adenomatous polyps, repeat 5 yrs/COLONOSCOPY FLEXIBLE PROXIMAL DIAGNOSTIC performed by Rene Elise MD at ENDOSCOPY [facility] COLONOSCOPY, DIAGNOSTIC (RECTUM) 07/27/2020 benign adenomatous polyps / COLONOSCOPY FLEXIBLE PROXIMAL DIAGNOSTIC performed by Rene Elise MD at ENDOSCOPY [facility] COLONOSCOPY, GI REFERRAL OP 01/16/2005 Dr. Mcneil - diverticulosis CT SINUSES W WO CONTRAST 06/06/2006 air fluid levels in bilateral maxillary and sphenoid sinuses, frontal sinus opacified, mucosal thickening of ethmoids, left osteomeatal complex opacified, left nasal septal deviation EGD, FLEXIBLE, DIAGNOSTIC 11/14/2020 [place], hiatal hernia, repeat 6 mo / ESOPHAGOGASTRODUODENOSCOPY (EGD), FLEXIBLE, TRANSORAL, DIAGNOSTIC performed by Santi Edwards MD at ENDOSCOPY [facility] EGD, FLEXIBLE, DIAGNOSTIC 08/29/2021 [place], hiatal hernia, repeat 2 yrs / ESOPHAGOGASTRODUODENOSCOPY (EGD), FLEXIBLE, TRANSORAL, DIAGNOSTIC performed by Santi Edwards MD at ENDOSCOPY [facility] EGD, FLEXIBLE, DIAGNOSTIC 09/30/2020 Bleeding esophagitis with underlying Contreras's esophagus, repeat 6 wks / INPT [facility] EGD, FLEXIBLE, W/BIOPSY 08/16/2006 path-no abnormalities FULL PULMONARY FUNCTION TEST 05/2000 HEMORRHOIDECTOMY, SIMPLE, 1 COLUMN Remote past ILIAC ART. REVASC W/ STENT+ANGIOPLASTY 04/16/2024 ILIAC ARTERY REVASC W/ STENT+ANGIOPLASTY performed by Samson Dennis MD at OR [facility] INTRACRANIAL ARTERIES CATH PLACEMENT Bilateral 04/15/2024 CATHETER PLACEMENT EACH INTRACRANIAL BRANCH OF THE INTERNAL CAROTID OR VERTEBRAL ARTERIES performedby Yann Jackson MD at OR [facility] IR ARTERIOGRAM EXTREMITY UNILATERAL 04/16/2024 IMAGING SUPERVISION & INTERPRETATION EXTREMITY UNILATERAL performed by Samson Dennis MD at [facility] L-/S-SPINE PARAVERTEBRAL FACET INJ,1 LEVEL 02/09/2019 L-/S-SPINE PARAVERTEBRAL FACET INJ, 1 LEVEL performed by Chris Caballero DO at [facility] L-/S-SPINE PARAVERTEBRL FACET INJ,2 LEVELS 02/09/2019 L-/S-SPINE PARAVERTEBRAL FACET INJ, 2 LEVELS performed by Chris Caballero DO at [facility] LUMBAR DISC ARTHROPLAST,REMV,ADDL INTERSPCE 01/2010 Dr Potts LUMBAR SPINE FUSION W/BONE GRAFT 02/23/2005 Dr. Potts - [facility] LUMBAR SPINE FUSION W/BONE GRAFT 07/19/2016 Dr. Potts - [facility] MAMMOGRAM SCREENING-BILATERAL 02/1999 REMOVAL OF OVARY/OVIDUCT(S) 18 yo right REMOVE CATARACT, INSERT LENS PROSTH 12/2004 bilateral - [facility] [place] [facility] REMOVE GALLBLADDER REVERSE TOTAL SHOULDER ARTHROPLASTY Left 09/29/2020 [facility] [place] SACROILIAC JOINT INJECT W/GUIDANCE 11/13/2018 INJECTION SACROILIAC JOINT performed by Chris Caballero DO at OR [facility] SACROILIAC JOINT INJECT W/GUIDANCE 12/11/2018 INJECTION SACROILIAC JOINT performed by Chris Caballero DO at OR [facility] SHOULDER ARTHROSCOPY/SURGERY 06/07/2010 [facility] - [facility]- right shoulder repair SPINAL FUSION, LUMBAR, COMBINED 07/19/2016 Dr. Potts- [facility] TOTAL ABD HYSTERECTOMY W/WO REMOVAL OF TUBE(S) 26 yo one ovary still in VERTEBRAL ARTERY CATHETER PLACEMENT Bilateral 03/27/2024 CATHETER PLACEMENT VERTEBRAL ARTERY, performed by Yann Jackson MD at [facility] VERTEBRAL ARTERY CATHETER PLACEMENT Bilateral 04/15/2024 CATHETER PLACEMENT VERTEBRAL ARTERY, performed by Yann Jackson MD at OR [facility] Family History: family history includes CAD in her father; Hypertension in her mother. Social History: reports that she has been smoking cigarettes. She started smoking about 57 years ago. She has a 57.5 pack-year smoking history. She has never used smokeless tobacco. She reports that she does not drink alcohol and does not use drugs. COMPLETE REVIEW OF SYSTEMS: All others negative other than those noted in the HPI. GENERAL MULTI-SYSTEM PHYSICAL EXAM: Vital Signs: BP 116/53 | Pulse 73 | Temp 36.6 C (97.9 F) (Tympanic) | Resp 18 | Wt 82 kg (180 lb 12.4 oz) |SpO2 94% | BMI 31.03 kg/m | BSA 1.92 m GENERAL: Normal grooming habits, no acute distress, and appears stated age NECK: No masses RESPIRATORY: respiratory effort normal CARDIOVASCULAR: no edema and no varicosities GASTROINTESTINAL: no tenderness, protuberant, and abdominal aorta not palpable SKIN: no ulcers, no rash, no induration, capillary refill normal, and no dependent rubor PSYCHIATRIC: orientation to time, place and person normal and recent and remote memory normal EYES: conjunctivae normal, eye lids normal, and pupils normal NEUROLOGIC: Motor function intact and Sensory exam intact VASCULAR: palpable b/l PT pulses. L DP signal present, monophasic. R DP palpable. L prevena holdingsuction c/d/i LABS: Lab Results Component Value Date/Time WBC 18.97 (H) 04/21/2024 06:46 PM WBC 6.13 05/21/2019 01:17 PM HGB 8.0 (L) 04/21/2024 06:46 PM HGB 13.7 03/06/2022 12:00 AM HGB 15.1 05/21/2019 01:17 PM PLT 176 04/21/2024 06:46 PM PLT 236 05/21/2019 01:17 PM Lab Results Component Value Date/Time BUN 16 04/21/2024 06:45 PM BUN 16 05/21/2019 01:17 PM CREAT 0.9 04/21/2024 06:45 PM CREAT 0.85 03/06/2022 12:00 AM CREAT 1.0 05/21/2019 01:17 PM GFRESTIMATED 53.7 (L) 05/21/2019 01:17 PM NA 138 04/21/2024 06:45 PM NA 145 05/21/2019 01:17 PM POTASSIUM 4.4 04/21/2024 06:45 PM POTASSIUM 4.0 04/15/2024 03:23 PM POTASSIUM 4.2 03/06/2022 12:00 AM POTASSIUM 4.3 05/21/2019 01:17 PM CL 107 04/21/2024 06:45 PM CL 105 05/21/2019 01:17 PM CO2 22 04/21/2024 06:45 PM CO2 26 05/21/2019 01:17 PM CA 8.1 (L) 04/21/2024 06:45 PM CA 9.8 05/21/2019 01:17 PM Lab Results Component Value Date/Time INR 1.5 (H) 04/21/2024 06:45 PM INR 1.2 04/17/2024 05:54 AM INR 1.3 (H) 04/16/2024 05:39 PM DIAGNOSTIC STUDIES: No imaging results in the last 24 hours The above images were personally reviewed on 04/21/2024. IMPRESSIONS: This is a 88F w/ a small RP hematoma PLAN: - WBC appreciated, 19 - Infectious workup - Medical admission - Vascular will remove prevena tomorrow - No intervention for RP hematoma Steve Ashley MD Vascular Surgery Fellow Cosigned by Ryan Knox MD at 04/22/2024 8:55 AM EST Associated attestation - Ryan Knox MD - 04/22/2024 8:55 AM EST I did not see the patient, but I have reviewed the resident/fellow physician documentation and was readily available on date of service. CT scan was not immediately available for my review upon time of initial transfer center call On review of imaging, RPH much less impressive than relayed - more in line with anticipated post operative changes after emergent thrombectomy/arterial repair after neurosurgical procedure Will remove Prevena 04/22 as previously planned Ryan Knox MD Section of Vascular [place] [address] [phone] documented in this encounter Nursing Notes * Skye Steven RN - 04/22/2024 2:13 PM EST Dual skin by Skye Templeton RN and Valerie Berry RN Wound Type: Other, location bruising to left side/flank, bruising to groin, dressing to left groin from thrombectomy earlier this week Wound Ostomy Nurse Notified: No - wound ostomy not needed at this time Nursing interventions: encourage repo q2, encourage oob documented in this encounter ED Notes * Luis Stock RN - 04/21/2024 6:41 PM EST PT presents to ED as a transfer from [facility] for retroperitoneal hematoma . PT is alert and oriented to all spheres and has a GCS of 15. documented in this encounter Miscellaneous Notes * Diagnostic Clarification - Madeleine Pickard DO - 04/24/2024 2:41 PM EST - RP hematoma suspected to have occurred prior to initation of Plavix and Eliquis on discussion with vascular surgery thus hemorrhage less likely due to plavix and eliquis. * Ancillary Progress Note - Geovany Hannah Chaplain - 04/24/2024 12:37 PM EST PROGRESS NOTE - Spiritual Care Contact Information [address] [address] Name: Josefa Ramírez Location: [address] Date: 04/24/2024 Time: 12:37 PM Rastafari: Voodoo [49] Sabianism Affiliations: REASON FOR VISIT: rounding REQUEST RECEIVED FROM: rounding VISIT LENGTH: 15 minutes REQUEST FACTORS (Nature of Situation): Family Support and Initial Visit FOCUS OF CARE: Patient and Family member(s) SPIRITUAL ASSESSMENT: Monika or Belief System: Did not identify Most Important Need(s) / Concern(s): Anxiety, Helpless, Sad, Suffering, and Weary Sense of Community and/or Sabianism Affiliation: Did not identify Addresses need(s)/concerns(s) and/or joe through: Family, Strong coping mechanisms SPIRITUAL CARE PROVIDED: Health Education Specialist addressed needs/concerns and/or coping through: [place], Facilitating debriefing, Listening presence, and Supportive dialogue REFERRAL TO: Health Education Specialist OUTCOMES: [place], Comfort/Healing Presence ANNOTATION: Visited with patient and her while making rounding visits on the unit. Listenedas patient and her shared stories about patient and their life together including the circumstances that have her in the hospital. They shared that they are grateful for their family support especially that of their son-in-law who has been driving for them. Provided them spiritual support, encouragement, and reassurance. Extended blessings to them. Spiritual Care will continue to be available as needed or as requested. * Ancillary Progress Note - Lisa Massey DPT - 04/24/2024 12:07 PM EST PROGRESS NOTE - Physical Therapy [address] [address] Name: Josefa Ramírez Location: [address] Date: 04/24/2024 Time: 1207 Josefa Ramírez is a/an 88 year old female. Patient Status: Inpatient Insurance: Payor: PCA Audit Plan: PCA Audit CLASSIC 1 PART D MC-LD Product Type: *No Product type* Patient Seen: at bedside, nursing cleared patient for therapy Patient Identified By: Name, ID Band and Date Diagnosis: retroperitoneal hematoma (04/24/241206) Status of treatment: Treatment completed (04/24/241206) Orders: PT evaluation and treatment;OOB (04/24/241206) Weight Bearing Status: Weight bearing as tolerated (04/24/241206) Precautions: Falls;Safety (squints L eye shut due to double vision) (04/24/241206) Total Treatment Time--free text: 13 (04/24/241206) Subjective: Pt is agreeable to PT. States she has been able to move around the room with assistance. Pain: No complaints of pain P.T. Bed Mobility Supine-Sit: Supervision (04/24/241206) Transfers Sit-Stand: Supervision (04/24/241206) Stand-Sit: Supervision (04/24/241206) Ambulation Assist: Supervision (04/24/241206) Distance Ambulated (feet): 200 (04/24/241206) Assistive Device: No device (04/24/241206) Noted gait deviations: slow violette, no complaints of dizziness today (04/24/241206) Ambulatory safety: Patient verbalizes insight of current deficits;Patient demonstrates carryover ofinsight during functional tasks (04/24/241206) Balance Sit (Static): Fair (04/24/241206) Sit (Dynamic): Fair (04/24/241206) Stand (Static): Fair (04/24/241206) Stand (Dynamic): Fair (04/24/241206) Patient and or Family Goal(s): to get well and to return home Topic of Education: Safety with mobility and Fall prevention Method of Education: Verbal discussion and explanation provided to patient: verbalized understanding and or agreement of this information Patient Education Review of Precautions: Safety;Fall (04/24/241206) Safety Awareness: Patient verbalizes insight of current deficits;Patient demonstrates carryover of insight during functional tasks;Patient can communicate basic needs (04/24/241206) Preferred learning method: Combination (04/24/241206) Barriers to learning: Medical Status (04/24/241206) Method of Education: Verbalized to patient (04/24/241206) Treatment Provided: Gait Training 13 minutes: gait training with no device Alarm Status Patient positioned in: Bed (04/24/241206) With: Call hdz in reach (no alarms placed prior. RN aware.) (04/24/241206) Treatment Status: Treatment at bedside (04/24/241206) Assessment: Pt seen for follow up. Pt is agreeable to PT mobility, able to demonstrate ability to transfer and ambulate with supervision without a device. Pt also sat edge of bed x6 minutes with supervision while performing dynamic tasks. Family at bedside and is supportive. Continue PT plan of care to maximize the patient's functional strength, endurance, and independence with mobility. Please consider home with post-acute care services which may include home health or outpatient therapy. The level of care will be determined in collaboration with the patient, family/caregiver and care team members. Deficits requiring P.T. treatment needs: Safety;Mobility;Balance;Weakness;Endurance;Lower extremitystrength (04/24/241206) Equipment needs: No device (04/24/241206) Plan: Continue with current treatment plan established on evaluation. AM-PAC Score With Stairs : 18 (04/24/241206) A portion of this AM-PAC assessment not scored based on functional assessment due to fatigue, does not climb stairs; rather clinical decision making utilized based on current findings and/or prior level of function. Please refer to future AM-PAC calculations of functional ability as they become available. * Ancillary Progress Note - Sherrill Jeronimo OTR/L - 04/24/2024 11:54 AM EST PROGRESS NOTE - Occupational Therapy [facility]-[address] [address] Name: Josefa Ramírez Location: [facility] B335/A Date: 04/24/2024 Time: 11:54 AM Josefa Ramírez is a 88 year old female. Patient Status: Inpatient Insurance: Payor: PCA Audit Plan: PCA Audit CLASSIC 1 PART D MC-LD Product Type: *No Product type* Patient Seen: at bedside, RN cleared pt for services. Patient Identified By: Name, ID Band and Date Diagnosis: UTI (04/24/241153) Status of treatment: Treatment completed (04/24/241153) Orders: OT evaluation and treatment;OT OOB (04/24/241153) Weight Bearing Status: Weight bearing as tolerated (04/24/241153) Precautions: Alarms;Falls;Safety (04/24/241153) Total Treatment Time: 13 (04/24/241153) Subjective: Pt supine in bed upon therapists arrival. Pt pleasant and agreeable to occupational therapy services. Pt stating "I am ready". Pain: No complaints of pain Observations Consciousness: Alert (04/24/241153) Orientation: Oriented times 4 (04/24/241153) Psychosocial: Patient can converse in a social setting;Patient can communicate basic needs (04/24/241153) Visual Deficits: (double vision and patient keeps left eye closed) (04/24/241153) Sitting posture: Forward head;Rounded shoulders (04/24/241153) Standing posture: Forward head;Rounded shoulders (04/24/241153) Safety awareness: The Patient demonstrates carryover of insight during functional tasks.;The Patient verbalizes insight of current deficits. (04/24/241153) Other Findings Endurance: Functional activity;Fair (04/24/24 115) Light touch sensation: LUE;RUE;Intact (04/24/24 115) Proprioception: Intact (04/22/24 1215) Coordination: LUE;RUE;Intact (04/24/24 115) Tone: Normal tone (04/24/24 115) Edema: No edema noted (04/24/241153) Current Functional Status: Activities of Daily Living: Self Care Able to provide self care: Yes (04/24/241153) Feeding: Supervision (Please comment) (for set-up assistance) (04/24/24 115) Grooming: Supervision (Please comment) (to wash face and comb hair when seated EOB) (04/24/241153) Dressing Upper Body: Supervision (Please comment) (to edson a new gown) (04/24/241153) Functional Ambulation Assistive Device: No device (04/24/241153) Distance in feet:: 200 (04/24/241153) Level of Assistance: Supervision (Please Comment) (04/24/241153) Bed Mobility Supine-Sit: Supervision (Please comment) (04/24/241153) OT Transfers Sit-Stand: Supervision (Please comment) (04/24/241153) Stand-Sit: Supervision (Please comment) (04/24/241153) Balance Sit (Static): Fair (04/24/241153) Sit (Dynamic): Fair (04/24/241153) Stand (Static): Fair (04/24/241153) Stand (Dynamic): Fair (04/24/241153) Patient Education Education Topic: Role of OT;Plan of care goals (04/24/241153) Review of Precautions: Safety;Fall (04/24/241153) Method of Education: Verbalized to patient (04/24/241153) Education Provided to: Patient (04/24/241153) Response to Education: Receptive and agreeable to education (04/24/241153) Barriers to learning: None (04/24/241153) Preferred learning method: Combination (04/24/241153) Alarm Status Patient positioned in: Bed (seated EOB, family present at bedside) (04/24/241153) With: Call hdz in reach (no alarms on pt upon therapists arrival, pt's family present at bedside, RN made aware) (04/24/241153) Treatment Provided: Self Halfway Management Trainin minutes Deficits requiring O.T. treatment needs: ADL/self- care;Balance;Endurance;Functional mobility;Safety;IADL;Upper extremity strength;Weakness (04/24/241153) Assessment: Pt seen this date for OT treatment session. Pt supine in bed upon therapists arrival. Pt reports feeling slight improved this date. Pt completed supine to sit transfer with supervision with HOB elevated and use of bed railings to assist with righting trunk into neutral seated positioning and for advancing legs/hips towards EOB. Pt tolerated ~5mins seated EOB with fair seated balance to further increase postural strengthening and endurance during functional ADL/IADL tasks. Pt donned socks when seated EOB with supervision secondary to increased instability with forward functional reaching. Pt completed sit to stand transfers from EOB with no device with supervision to ensure safety due to generalized weakness and instability. Pt then completed ~200ft of functional ambulation in hallway with no device with supervision. Once returned to seated EOB, pt washed face and combed hairwith supervision for set- up assistance. Pt presenting with improvements in overall endurance and ADL participation compared to initial evaluation. Pt would benefit from continue skilled OT services to further increase strength, endurance, and independence in ADL/IADL tasks and facilitate a safe transition to the next level of care. Please consider home with post-acute care services which may include home health or outpatient therapy. The level of care will be determined in collaboration with the patient, family/caregiver and care team members. Plan: Continue to progress per plan of care established on initial evaluation Anticipated Frequency (on eval): (1-5x/wk) (04/24/241153) Equipment Equipment used in Therapy: No Device (04/24/241153) AM-PAC Help From Another Person Eating Meals: A little (04/24/241153) Help From Another Person Taking Care of Personal Grooming: A little (04/24/241153) Help From Another Person To Put On/Take Off Upper Body Clothing: A little (04/24/241153) Help From Another Person To Put On/Take Off Lower Body Clothing: A little (04/24/241153) Help From Another Person Toileting: A little (04/24/241153) Help From Another Person Bathing: A little (04/24/241153) OT AM-PAC Score: 18 (04/24/241153) OT AM-PAC t-Scale Score: 38.66 (04/24/241153) A portion of this AM-PAC assessment not scored based on functional assessment, rather clinical decision making utilized based on current findings and/or prior level of function. Please refer to future AM-PAC calculations of functional ability as they become available. * Ancillary Progress Note - Ellie Lanier RN - 04/24/2024 10:00 AM EST CARE MANAGEMENT - ADULT TRANSITION NOTE [facility] [address] Name: Josefa Ramírez Location: [facility] Date: 04/24/2024 Time: 10:00 AM Risk Stratification Readmission Risk Score: 14.11 (04/24/24 0801) AM-PAC Score With Stairs : 18 (04/23/24 0800) Caregiver Information Emergency Contacts Name Relation Home Work Mobile Fletcher Ramírez Spouse [phone] Bethel Caro Adult Grandchild [phone] Other Contacts Name Relation Home Work Mobile ALISHA Chambers Adult Child [phone] Kolby Chambers [phone] Transition of Care Checklist Narrative: Patient was discussed during boost this AM. Per IDT, patient is possibly medically ready, pending further BP monitoring. No needs identified at this time, from home independently. CM will continue tofollow. Anticipated Transportation at Discharge: family Patient/Family Expectations: home Transition Planning Additional Considerations: Care Management will continue to monitor and assist with discharge planning needs * Care Plan - Beckie Yu RN - 04/24/2024 6:24 AM EST Clinical Goal(s): safety will be maintained this shift (04/23/24 2300) Possible barriers to meeting goal(s)/advancing plan of care: weakness, need for assistance with care Stability of the patient: Moderately stable - low risk of patient condition declining or worsening Summary regarding today's goal(s): Met: no safety issues this shift Recommendations: Continue fall precautions, use of bed alarm and assist at al times when OOB * Care Plan - Zoie Smith RN - 04/23/2024 6:25 AM EST Clinical Goal(s): Patient will remain free from injury during this shift. (04/22/24 2300) Possible barriers to meeting goal(s)/advancing plan of care: L eye swelling impairing vision Stability of the patient: Moderately stable - low risk of patient condition declining or worsening Summary regarding today's goal(s): Met: Patient had no injuries during this shift. Recommendations: Continue hourly rounding and fall precautions. * ED Manager Plumbing Note - Ellie Helton RN - 04/22/2024 11:52 AM EST Hand-Off - Nurse Communication Note Name: Josefa Ramírez Location: /X Date: 04/22/2024 Time: 11:52 AM Sending to: BP3 335A Safety Concerns: Fall Risk Allergies: Ampicillin, Azithromycin, and Ranitidine Code Status: Full Code Isolation: None Isolation flowsheet: Special Needs: Special Needs comments: Attention to: Skye Erickson RN Report from: Ellie Helton RN Phone extension: [phone] Patient arriving via: Bed Reason for SBAR handoff: Admission Situation/Background Admission date: 04/21/2024 Patient Service: Chuck Chavira [[id number]] Attending Provider: Edgard Aaron MD Admitting diagnosis: Urinary tract infection Chief Complaint: transfer of records and Other (retroperitoneal hematoma) Patient initially presented with concerns for acute blood loss anemia as the etiology of her hypotension. Although she did have low hemoglobin and required transfusion at outside hospital, there was no active extravasation seen on CTA at that hospital. She was found to have a floridly infected UA and given her symptoms of weakness fatigue, in accordance with her hypotension, tachycardia (seen at outside hospital) and elevated white count, patient presents his sepsis from UTI. Of note, patient does not have any urinary symptoms that she was reporting; however, her family states that her history is unreliable. This is seen in the fact that she told 1 provider that she has been having frequentbowel movements recently within told another provider that she has been more constipated since the procedure. 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 Neurosurg to see d/t "new eye swelling." Pt able to ambulate to bedside commode however will occasionally have episodes of incontinence. Problem list: Active Problems: Allergic rhinitis due to pollen Irritable bowel syndrome with constipation Vitamin D deficiency HTN, goal below 150/90 Vitamin B12 deficiency COPD, mild (HCC) Dyslipidemia Carotid-cavernous fistula Gastro-esophageal reflux disease without esophagitis Sepsis (HCC) UTI (urinary tract infection) Acute blood loss anemia Retroperitoneal hematoma Hyperbilirubinemia Resolved Problems: * No resolved hospital problems. * Level of Care: Med Surg [3] Assessment Vital Signs: BP: 124/61 (04/22/24 1100) Temp: 36.8 C (98.2 F) (04/22/24799) Pulse: 78 (04/22/241099) Resp: 24 (04/22/241099) SpO2: 92 % (04/22/241099) Weight: 82 kg (180 lb 12.4 oz) (04/21/241838) Fall Scale: Fall Score: 85 (04/21/241847) Fall Interventions: Bed at low level;Yellow armband applied/intact and on patient;Fall risk sign outside room;Walk path free of obstacles;Fall risk sign above bed (04/21/241847) Neurological: Coward Coma Scale - For patients greater than two years old Eyes Open: Spontaneous (04/22/24799) Best Verbal Response: Verbally appropriate for age (04/22/24799) Best Motor Response: Obeys commands appropriate for age (04/22/24799) Coma Score: 15 (04/22/24799) Additional Neurological Information: n/a Respiratory: Respiratory WNL: WNL- within normal limits (04/21/241848) Oxygen therapy/ Mechanical vent Supplemental O2 Delivery: Room Air, None (04/22/24 09) Additional Respiratory Information: n/a Cardiac: Extremities: +Sensation;Right;Left;Upper;Lower;Warm (04/22/24799) Pulses Right: Palpable;Radial + (04/22/24799) Pulses Left: Palpable;Radial + (04/22/24799) Additional Cardiac Information: n/a GI/: Abdomen: Soft;Non-tender (04/21/241848) Urine Description: Blood Tinged (04/21/241999) Additional GI/ Information: n/a Integumentary: Skin Description: Dry;Warm (04/22/24799) Skin Color: Flesh Tone;Mucus Membranes [place] (04/22/24799) Additional Integumentary Information: n/a C-Diff: Has the patient had 3 or more loose stools in the last 24 hours?: No (04/22/24236) Restraints: No orders of the defined types were placed in this encounter. Lines: Peripheral Line Left Antecubital 20 Gauge (Active) Status Flushes easily 04/21/241907 Phlebitis Scale 0 04/21/241907 Infiltration Scale 0 04/21/241907 Site Description (Other) Without redness, swelling or drainage 04/21/241907 Site Intervention Flushed 04/21/241907 Dressing Assessment Dressing clean, dry, and intact;Transparent dressing 04/21/241907 Dressing Intervention None required 04/21/241907 Number of days: 1 Peripheral Line Right Antecubital 20 Gauge (Active) Status Flushes easily 04/21/241907 Phlebitis Scale 0 04/21/241907 Infiltration Scale 0 04/21/241907 Site Description (Other) Without redness, swelling or drainage;Ecchymotic 04/21/241907 Site Intervention Flushed 04/21/241907 Dressing Assessment Dressing clean, dry, and intact;Transparent dressing 04/21/241907 Dressing Intervention None required 04/21/241907 Number of days: 1 Peripheral Line Right Arm 20 Gauge (Active) Status Flushes easily 04/21/241908 Phlebitis Scale 0 04/21/241908 Infiltration Scale 0 04/21/241908 Site Description (Other) Without redness, swelling or drainage 04/21/241908 Site Intervention Flushed 04/21/241908 Dressing Assessment Dressing clean, dry, and intact;Transparent dressing 04/21/241908 Dressing Intervention None required 04/21/241908 Number of days: 1 Labs: Labs This Encounter COMPREHENSIVE METABOLIC PANEL - Abnormal; Notable for the following components: Result Value Ref Range GLUCOSE 125 70 - 120 mg/dL Albumin 3.1 3.8 - 5.0 g/dL AST 6 10 - 35 U/L Bilirubin, Total 1.4 <=1.2 mg/dL CALCIUM 8.1 8.4 - 10.2 mg/dL Protein 5.5 6.0 - 8.3 g/dL ALT 9 10 - 35 U/L All other components within normal limits PT INR - Abnormal; Notable for the following components: Prothrombin Time 18.3 11.6 - 15.2 seconds INR 1.5 0.8 - 1.2 All other components within normal limits Narrative: Warfarin Therapy INR: 2.0-3.0 conventional anticoagulation INR: 2.5-3.5 high intensity anticoagulation CBC - Abnormal; Notable for the following components: WBC 18.97 4.00 - 10.80 K/uL HGB 8.0 12.0 - 15.3 g/dL HCT 25.3 36.0 - 45.2 % All other components within normal limits DIFFERENTIAL, AUTOMATED - Abnormal; Notable for the following components: WBC 18.97 4.00 - 10.80 K/uL Neutrophils % 80.8 40.0 - 75.0 % Lymphocytes % 7.5 18.0 - 42.0 % Absolute Neutrophils 15.33 1.80 - 7.70 K/uL Absolute Monocytes 1.95 0.00 - 1.10 K/uL Absolute Immature Granulocytes 0.21 0.00 - 0.20 K/uL All other components within normal limits URINALYSIS, REFLEX TO CULTURE - Abnormal; Notable for the following components: Clarity, Urine Cloudy Clear Specific Laura, Urine 1.040 1.003 - 1.030 Blood, Urine Large Negative Protein, Urine 100 Negative mg/dL Nitrite, Urine Positive Negative Esterase, Urine Large Negative RBC, Urine 50+ 0 - 2 /HPF WBC, Urine 50+ 0 - 2 /HPF Bacteria, Urine 151-200 0 - 25 /HPF WBC Clumps, Urine Present None /HPF All other components within normal limits COMPREHENSIVE METABOLIC PANEL - Abnormal; Notable for the following components: Albumin 2.9 3.8 - 5.0 g/dL AST 6 10 - 35 U/L CALCIUM 8.1 8.4 - 10.2 mg/dL Protein 5.1 6.0 - 8.3 g/dL ALT 8 10 - 35 U/L All other components within normal limits CK - Abnormal; Notable for the following components: CK 19 26 - 192 U/L All other components within normal limits BNP, NT-PRO - Abnormal; Notable for the following components: BNP, NT-Pro 938 <300 pg/mL All other components within normal limits Narrative: Exclude Heart Failure: <300 pg/mL Diagnose Heart Failure: Age <50 yr: >450 pg/mL 50-75 yr: >900 pg/mL >75 yr: >1800 pg/mL GFR is 30-59 mL/min: >1200 pg/mL or Age-adjusted values GFR <30 mL/min: do not use, not reliable Prognostic threshold: 1000 pg/mL LACTATE WITH REFLEX IF ABNORMAL - Normal TEG (THROMBOELASTOGRAPH) - Normal Narrative: If R time > 20 minutes and no clot formed suggesting hypocoagulable state or interfering substance (anticoagulation). Consider resubmitting a new sample and/or checking PT/INR, aPTT, fibrinogen, and platelet count. TEG (THROMBOELASTOGRAPH), HEPARINASE - Normal RESPIRATORY PATHOGEN PANEL, PCR - Normal CBC WITH WBC DIFFERENTIAL Narrative: The following orders were created for panel order CBC WITH WBC DIFFERENTIAL. Procedure Abnormality Status --------- ------ CBC[[id number]] Abnormal Final result DIFFERENTIAL, AUTOMATED[[id number]] Abnormal Final result Please view results for these tests on the individual orders. TYPE AND SCREEN TEG (THOMROBOELASTOGRAPH) PANEL Narrative: The following orders were created for panel order TEG (THOMROBOELASTOGRAPH) PANEL. Procedure Abnormality Status --------- ------ TEG (THROMBOELASTOGRAPH)[[id number]] Normal Final result TEG (THROMBOELASTOGRAPH)...[[id number]] Normal Final result Please view results for these tests on the individual orders. URINALYSIS, REFLEX TO CULTURE (NOT FOR NEUTROPENIC PATIENTS) Narrative: The following orders were created for panel order URINALYSIS, REFLEX TO CULTURE (NOT FOR NEUTROPENIC PATIENTS). Procedure Abnormality Status --------- ------ URINALYSIS, REFLEX TO CU...[[id number]] Final result URINALYSIS, REFLEX TO CU...[[id number]] Abnormal Final result Please view results for these tests on the individual orders. URINALYSIS, REFLEX TO CULTURE (CUP ONLY) CULTURE, URINE, QUANTITATIVE MRSA SCREEN, PCR Diet: Orders Placed This Encounter Procedures Regular Diet Additional Diet Information: n/a Intake and Output: Intake/Output Summary (Last 24 hours) at 04/22/2024 1152 Last data filed at 04/22/2024 0900 Gross per 24 hour Intake 921.01 ml Output -- Net 921.01 ml Patient Belongings and Home Medications Patient Belongings at Bedside Belongings at Bedside: None (04/21/241847) Patient Belongings Sent Home (Does not apply to Ambulatory areas) Belongings Sent Home: None (04/21/241847) Patient Belongings Sent to Safe/Locker Belongings Sent to Safe: None (04/21/241847) Patient Medications Medications Brought by Patient?: No (04/21/241847) Recommendations/Follow up Goals/Plan of Care: see notes Consults not completed: neurosurgery Anticipated tests/studies/procedures: see notes Medication Reconcilliation completed for this Admission? Yes * Medical Necessity - Jane Cleary RN - 04/22/2024 3:14 AM EST AdmissionCare Guideline: Anemia - INPT, Inpatient Based on the indications selected for the patient, the bed status of Inpatient was determined to beMET The following indications were selected as present at the time of evaluation of the patient: - Clinical Indications for Admission to Inpatient Care - Admission is indicated for 1 or more of the following: - Active bleeding that cannot be controlled in observation care Additional Information: CT chest abdomen pelvis with IV contrast shows new left retroperitoneal hematoma involving iliopsoas muscle and posterior para renal space with mild pulmonary edema and small left pleural effusion and labs CBC, UA, respiratory pathogen panel, lactate, CMP, CBC, are suggestive of leukocytosis, bacteriuria, anemia (drop 13-->11-->8), AdmissionCare documentation entered by: Jane Cleary [facility], 28th edition, Copyright 2023 [facility] All Rights Reserved. [id number] Solely for purpose of utilization review and payment; not a diagnostic tool * Communication - Mary Dalton MD - 04/21/2024 11:56 PM EST Ms. Rivero comes in for weakness since 1-2 days. She comes in for [facility]. BP: 102 mmHg/42 mmHg (04/21/242299) Pulse: 77 (04/21/242299) Resp: 20 (04/21/242299) Temp: 36.61 C (04/21/241838) Temp Summary: Temp Min: 36.6 C (97.9 F) Max: 36.6 C (97.9 F) SpO2: 97 % (04/21/242299) O2 flow rate: Supplemental O2 Delivery: Room Air, None (04/21/242299) Constitutional: Not in distress, comfortable ENT: No pharyngeal erythema, neck supple Respiratory: By crackles bilaterally Cardiovascular: S1,S2 normal,RRR Abdomen: Soft, nontender, distended, regular bowel sounds. L groin : + catheter/VAC within the dressing senior care Back/Musculoskeletal: No back tenderness Extremity/skin: No Pedal edema, skin intact Neurology: AOx3, grossly unremarkable motor and sensory exam. Presenting problems Generalized weakness Assessment Ms. Rivero presenting with generalized weakness since 1 day. Patient reports that she feels weak since 1 day, family members cyst in the history. The patient's family report that she has been having more bowel movements (mushy however more in frequency withoutany urgency/tenesmus). No history of dysuria. On my evaluation, patient is weak, hemodynamically-low maps (map dropped from 62-->59) on/at thetime of evaluation. Imaging CT chest abdomen pelvis with IV contrast shows new left retroperitoneal hematoma involving iliopsoas muscle and posterior para renal space with mild pulmonary edema and small left pleural effusion and labs CBC, UA, respiratory pathogen panel, lactate, CMP, CBC, are suggestive of leukocytosis, bacteriuria, anemia (drop 13-->11-->8), no lactic acidosis, negative RVP, hypoalbuminemia and mild hypocalcemia, INR 1.5. Impression Symptomatic anemia in the setting of acute left retroperitoneal hematoma-status post procedure (status post coil embolization Recommend fluid resuscitation and CCM evaluation if map continues to be less than 65 after fluid resuscitation Continue other supportive care Vascular Surgery/IR follow up To reconsider admission to Med/Surg floor if hemodynamically stable/ fluid responsive. Update: MAP <65 until 1 am ED decided to connect with CCM The MAP bumped to 78-80 with the next check reflected at 2 am documented in this encounter Plan of Treatment Upcoming Encounters Date Type Department Care Team (Late st Contact Info) Description 04/29/2024 11:20 AM EST Office Visit Family [address] [phone] Bharati Wang MD [address] [place] [address] SAHIL Ballard [id number] 05/11/2024 1:00 PM EST Office Visit Neurosurgery, [place] [address] [place] [address] Yann Jackson MD [address] [place] [address] 06/05/2024 1:20 PM EST Office Visit Family Medicine [address] [phone] Latha Shah CRNP [address] [place] [address] [place] Ballard [phone] Scheduled Orders Name Type Priority Associated Diagnoses Orde r Schedule MRSA SCREEN, PCR Lab Routine One Time for 1 Occurrences starting 04/22/2024 until 04/22/2024 CBC WITH WBC DIFFERENTIAL Lab Routine Acute blood loss anemia Expected: 04/27/2024, Expires: 04/24/2025 Scheduled Procedures Name Priority Associated Diagnoses Date/Ti [...] this encounter Medical Devices Implanted Type Area Poultry Trimmer Device Identifier Shelf Expiration Date Model / Serial / Lot Coil Target 3d [id number] - [id number] Implanted:Qty : 1 on 04/15/2024 by Yann Jackson MD at OR [facility] N/A: Head ANNAMARIA : NEUROVASCULAR [id number] 12/16/2024 [id number] 60 / / [id number] 6cm, Coil Swiftpac Implanted:Qty : 1 on 04/15/2024 by Yann Jackson MD at OR [facility] N/A: Head [employer] 12/16/2028 [id number] / / [id number] 45cm, Coil Swiftpac Implanted:Qty : 1 on 04/15/2024 by Yann Jackson MD at OR [facility] N/A: Head [employer] 12/16/2028 [id number] / / [id number] 60cm, Coil Swiftpac Implanted:Qty : 1 on 04/15/2024 by Yann Jackson MD at OR [facility] N/A: Head [employer] 11/02/2028 [id number] / / [id number] Coil Target 3d [id number] - [id number] Implanted:Qty : 1 on 04/15/2024 by Yann Jackson MD at OR [facility] N/A: Head [employer]NAM[employer]IA : NEUROVASCULAR [id number] 12/24/2024 [id number] 60 / / [id number] Coil Target 360 Soft [id number] - [id number] Implanted:Qty : 1 on 04/15/2024 by Yann Jackson MD at OR [facility] N/A: Head [employer] : NEUROVASCULAR [id number] 06/23/2025 [id number] / / [id number] Coil Target 360 Ultra 1eaj37nd - [id number] Implanted:Qty : 1 on 04/15/2024 by Yann Jackson MD at OR [facility] N/A: Head [employer]NAM[employer] : NEUROVASCULAR [id number] 05/04/2026 [id number] 00 / / [id number] Coil Target 360 Ultra [id number] - [id number] Implanted:Qty : 1 on 04/15/2024 by Yann Jackson MD at OR [facility] N/A: Head ANNAMARIA : NEUROVASCULAR [id number] 02/03/2025 [id number] 80 / / [id number] 10cm, Coil Swiftpac Implanted:Qty : 2 on 04/15/2024 by Yann Jackson MD at OR [facility] N/A: Head [employer] 12/24/2028 [id number] / / [id number] 30cm, Coil Swiftpac Implanted:Qty : 1 on 04/15/2024 by Yann Jackson MD at OR [facility] N/A: Head [employer] 12/24/2028 [id number] / / [id number] 60cm, Coil Swiftpac Implanted:Qty : 1 on 04/15/2024 by Yann Jackson MD at OR [facility] N/A: Head [employer] 11/02/2028 [id number] / / [id number] 6cm, Coil Swiftpac Implanted:Qty : 1 on 04/15/2024 by Yann Jackson MD at OR [facility] N/A: Head [employer] 12/16/2028 [id number] / / [id number] Stent Vasc Hep [id number] - [id number] Implanted:Qty : 1 on 04/16/2024 by Samson Dennis MD at OR [facility] Left: Iliac [employer] [id number] 12/29/2026 [id number] / [id number] / [id number] documented as of this encounter Procedures Procedure Name Priority Date/Time Associated Diagnosis Comments COMPREHENSIVE METABOLIC PANEL Routine 04/24/2024 7:47 AM EST PHOSPHORUS Routine 04/24/2024 7:47 AM EST CBC Routine 04/24/2024 7:47 AM EST MAGNESIUM Routine 04/24/2024 7:47 AM EST COMPREHENSIVE METABOLIC PANEL Routine 04/23/2024 7:59 AM EST PHOSPHORUS Routine 04/23/2024 7:59 AM EST CBC Routine 04/23/2024 7:59 AM EST MAGNESIUM Routine 04/23/2024 7:59 AM EST BNP (NT-PROBNP) Add-on 04/22/2024 5:30 AM EST COMPREHENSIVE METABOLIC PANEL Routine 04/22/2024 5:[address] CHEST/ABDOMEN/PELVIS WITH IV CONTRAST WITHOUT ORAL CONTRAST Routine 04/21/2024 9:57 PM EST Retroperitoneal hematoma Pleural effusion, not elsewhere classified Chronic pulmonary edema Calculus of kidney Hypotension, unspecified Elevated white blood cell count, unspecified Other specified symptoms and signs involving the digestive system and abdomen Abnormal findings on diagnostic imaging of other specified body structures Exposure to other specified factors, initial encounter URINALYSIS, REFLEX TO CULTURE Routine 04/21/2024 8:28 PM EST URINALYSIS, REFLEX TO CULTURE (CUP ONLY) Routine 04/21/2024 8:28 PM EST URINALYSIS, REFLEX TO CULTURE (NOT FOR NEUTROPENIC PATIENTS) Routine 04/21/2024 8:28 PM EST CULTURE, URINE, QUANTITATIVE Routine 04/21/2024 8:28 PM EST RESPIRATORY PATHOGEN PANEL, PCR STAT 04/21/2024 8:04 PM EST LACTATE WITH REFLEX IF ABNORMAL STAT 04/21/2024 6:46 PM EST DIFFERENTIAL, AUTOMATED STAT 04/21/2024 6:46 PM EST CBC STAT 04/21/2024 6:46 PM EST CBC STAT 04/21/2024 6:46 PM EST TEG (THOMROBOELASTOGRAPH) PANEL Routine 04/21/2024 6:45 PM EST TEG (THROMBOELASTOGRAPH), HEPARINASE Routine 04/21/2024 6:45 PM EST TEG (THROMBOELASTOGRAPH) Routine 04/21/2024 6:45 PM EST COMPREHENSIVE METABOLIC PANEL STAT 04/21/2024 6:45 PM EST TYPE AND SCREEN STAT 04/21/2024 6:45 PM EST CK Add-on 04/21/2024 6:45 PM EST PT INR STAT 04/21/2024 6:45 PM EST documented in this encounter Results * (ABNORMAL) COMPREHENSIVE METABOLIC PANEL (04/24/2024 7:47 AM EST) BUN 17 6 - 20 mg/dL 04/24/2024 8:32 AM EST [facility] CREATININE 0.8 0.5 - 1.0 mg/dL 04/24/2024 8:32 AM EST [facility] EGFR 68 >=60 mL/min 04/24/2024 8:32 AM EST [facility] Comment:eGFR is calculated b ased on the CKD-EPI 2020 equation. SODIUM 138 135 - 146 mmol/L 04/24/2024 8:32 AM EST [facility] POTASSIUM 3.9 3.5 - 5.1 mmol/L 04/24/2024 8:32 AM EST [facility] CHLORIDE 107 98 - 107 mmol/L 04/24/2024 8:32 AM EST [facility] CO2 22 22 - 32 mmol/L 04/24/2024 8:32 AM EST [facility] ANION GAP 9 7 - 15 mmol/L 04/24/2024 8:32 AM EST [facility] GLUCOSE 102 70 - 120 mg/dL 04/24/2024 8:32 AM EST [facility] Albumin 3.1(L) 3.8 - 5.0 g/dL 04/24/2024 8:32 AM EST [facility] AST 16 10 - 35 U/L 04/24/2024 8:32 AM EST [facility] Alkaline Phosphatase 63 35 - 130 U/L 04/24/2024 8:32 AM EST [facility] Bilirubin, Total 1.3(H) <=1.2 mg/dL 04/24/2024 8:32 AM EST [facility] CALCIUM 8.6 8.4 - 10.2 mg/dL 04/24/2024 8:32 AM EST [facility] Protein 5.7(L) 6.0 - 8.3 g/dL 04/24/2024 8:32 AM EST [facility] ALT 17 10 - 35 U/L 04/24/2024 8:32 AM EST [facility] Blood Venous blood specimen / Unknown Venipuncture / Unknown 04/24/2024 7:47 AM EST 04/24/2024 8:04 AM EST us Ruben Chaudhry DO LAB BLOOD ORDERABLES Final Result LAB[facility] [address] [place] [address] * (ABNORMAL) CBC (04/24/2024 7:47 AM EST) WBC 6.53 4.00 - 10.80 K/uL 04/24/2024 8:15 AM EST [facility] RBC 2.59 3.85 - 5.15 M/uL 04/24/2024 8:15 AM EST [facility] HGB 7.7(L) 12.0 - 15.3 g/dL 04/24/2024 8:15 AM EST [facility] HCT 24.4(L) 36.0 - 45.2 % 04/24/2024 8:15 AM EST [facility] MCV 94.2 81.5 - 97.5 fL 04/24/2024 8:15 AM EST [facility] MCH 29.7 27.0 - 34.0 pg 04/24/2024 8:15 AM EST [facility] MCHC 31.6 32.0 - 36.0 g/dL 04/24/2024 8:15 AM EST [facility] RDW 15.0 11.5 - 15.5 % 04/24/2024 8:15 AM EST [facility] PLT 237 140 - 400 K/uL 04/24/2024 8:15 AM EST [facility] MPV 10.1 6.6 - 11.1 fL 04/24/2024 8:15 AM EST [facility] nRBCs 0 <=0 /100 WBCs 04/24/2024 8:15 AM EST [facility] Blood Venous blood specimen / Unknown Venipuncture / Unknown 04/24/2024 7:47 AM EST 04/24/2024 8:04 AM EST Ruben Chaudhry DO LAB BLOOD ORDERABLES Final Result Performing Organization Address City/[facility]/ZIP Co de Phone Number LABORATORY [place] [address] [place] [address] * PHOSPHORUS (04/24/2024 7:47 AM EST) Phosphorus 2.7 2.5 - 4.8 mg/dL 04/24/2024 8:32 AM EST LABORATORY C Blood Venous blood specimen / Unknown Venipuncture / Unknown 04/24/2024 7:47 AM EST 04/24/2024 8:04 AM EST Ruben Chaudhry DO LAB BLOOD ORDERABLES Final Result LABORATORY [facility] [address] [place] [address] * MAGNESIUM (04/24/2024 7:47 AM EST) Magnesium 2.0 1.5 - 2.6 mg/dL 04/24/2024 8:32 AM EST [facility] Blood Venous blood specimen / Unknown Venipuncture / Unknown 04/24/2024 7:47 AM EST 04/24/2024 8:04 AM EST us Rubennancy Mcwilliams Richa HU LAB BLOOD ORDERABLES Final Result [facility] [address] [place] [address] * (ABNORMAL) COMPREHENSIVE METABOLIC PANEL (04/23/2024 7:59 AM EST) BUN 17 6 - 20 mg/dL 04/23/2024 8:40 AM EST [facility] CREATININE 0.8 0.5 - 1.0 mg/dL 04/23/2024 8:40 AM EST [facility] EGFR 73 >=60 mL/min 04/23/2024 8:40 AM EST [facility] Comment:eGFR is calculated b ased on the CKD-EPI 2020 equation. SODIUM 140 135 - 146 mmol/L 04/23/2024 8:40 AM EST [facility] POTASSIUM 4.1 3.5 - 5.1 mmol/L 04/23/2024 8:40 AM EST [facility] CHLORIDE 109(H) 98 - 107 mmol/L 04/23/2024 8:40 AM EST [facility] CO2 22 22 - 32 mmol/L 04/23/2024 8:40 AM EST [facility] ANION GAP 9 7 - 15 mmol/L 04/23/2024 8:40 AM EST [facility] GLUCOSE 91 70 - 120 mg/dL 04/23/2024 8:40 AM EST [facility] Albumin 2.9(L) 3.8 - 5.0 g/dL 04/23/2024 8:40 AM EST [facility] AST 12 10 - 35 U/L 04/23/2024 8:40 AM EST [facility] Alkaline Phosphatase 57 35 - 130 U/L 04/23/2024 8:40 AM EST [facility] Bilirubin, Total 1.0 <=1.2 mg/dL 04/23/2024 8:40 AM EST [facility] CALCIUM 8.5 8.4 - 10.2 mg/dL 04/23/2024 8:40 AM EST [facility] Protein 5.5(L) 6.0 - 8.3 g/dL 04/23/2024 8:40 AM EST [facility] ALT 11 10 - 35 U/L 04/23/2024 8:40 AM EST [facility] Blood Venous blood specimen / Unknown Venipuncture / Unknown 04/23/2024 7:59 AM EST 04/23/2024 8:14 AM EST Ruben Chaudhry DO LAB BLOOD ORDERABLES Final Result [facility] [address] [place] [address] * (ABNORMAL) CBC (04/23/2024 7:59 AM EST) WBC 6.87 4.00 - 10.80 K/uL 04/23/2024 8:27 AM EST [facility] RBC 2.50 3.85 - 5.15 M/uL 04/23/2024 8:27 AM EST [facility] HGB 7.5(L) 12.0 - 15.3 g/dL 04/23/2024 8:27 AM EST [facility] HCT 24.1(L) 36.0 - 45.2 % 04/23/2024 8:27 AM EST [facility] MCV 96.4 81.5 - 97.5 fL 04/23/2024 8:27 AM EST [facility] MCH 30.0 27.0 - 34.0 pg 04/23/2024 8:27 AM EST [facility] MCHC 31.1 32.0 - 36.0 g/dL 04/23/2024 8:27 AM EST [facility] RDW 15.9 11.5 - 15.5 % 04/23/2024 8:27 AM EST [facility] PLT 194 140 - 400 K/uL 04/23/2024 8:27 AM EST [facility] MPV 10.6 6.6 - 11.1 fL 04/23/2024 8:27 AM EST [facility] nRBCs 1(H) <=0 /100 WBCs 04/23/2024 8:27 AM EST [facility] Blood Venous blood specimen / Unknown Venipuncture / Unknown 04/23/2024 7:59 AM EST 04/23/2024 8:14 AM EST Ruben Chaudhry DO LAB BLOOD ORDERABLES Final Result Performing Organization Address City/[facility]/ZIP Co de Phone Number LABORATORY [facility] [address] [place] [address] * PHOSPHORUS (04/23/2024 7:59 AM EST) Phosphorus 2.5 2.5 - 4.8 mg/dL 04/23/2024 8:40 AM EST LABORATORY C Blood Venous blood specimen / Unknown Venipuncture / Unknown 04/23/2024 7:59 AM EST 04/23/2024 8:14 AM EST Ruben Chaudhry DO LAB BLOOD ORDERABLES Final Result Performing Organization Address [facility] Co de Phone Number LABORATORY [facility] [address] [place] [address] * MAGNESIUM (04/23/2024 7:59 AM EST) Magnesium 2.2 1.5 - 2.6 mg/dL 04/23/2024 8:40 AM EST LABORATORY [facility] Blood Venous blood specimen / Unknown Venipuncture / Unknown 04/23/2024 7:59 AM EST 04/23/2024 8:14 AM EST Ruben Chaudhry DO LAB BLOOD ORDERABLES Final Result Performing Organization Address City/[facility]/ZIP Co de Phone Number LABORATORY [facility] [address] [place] [address] * (ABNORMAL) BNP, NT-PRO (04/22/2024 5:30 AM EST) BNP, NT-Pro 938(H) <300 pg/mL 04/22/2024 6:02 AM EST LABORATORY C Blood Venous blood specimen / Unknown Venipuncture / Unknown 04/22/2024 5:30 AM EST 04/22/2024 5:35 AM EST Narrative [facility] - 04/22/2024 6:02 AM EST Exclude Heart Failure: <300 pg/mL Diagnose Heart Failure: Age <50 yr: >450 pg/mL 50-75 yr: >900 pg/mL >75 yr: >1800 pg/mL GFR is 30-59 mL/min: >1200 pg/mL or Age-adjusted values GFR <30 mL/min: do not use, not reliable Prognostic threshold: 1000 pg/mL us Mary Dalton MD LAB BLOOD ORDERABLES Final Resul t LABORATORY [facility] [address] [place] [address] * (ABNORMAL) COMPREHENSIVE METABOLIC PANEL (04/22/2024 5:30 AM EST) BUN 15 6 - 20 mg/dL 04/22/2024 6:02 AM EST LABORATORY [facility] CREATININE 0.8 0.5 - 1.0 mg/dL 04/22/2024 6:02 AM EST LAB[facility]ATORY [facility] EGFR 72 >=60 mL/min 04/22/2024 6:02 AM EST [facility] Comment:eGFR is calculated b ased on the CKD-EPI 2020 equation. SODIUM 138 135 - 146 mmol/L 04/22/2024 6:02 AM EST [facility] POTASSIUM 3.9 3.5 - 5.1 mmol/L 04/22/2024 6:02 AM EST [facility] CHLORIDE 107 98 - 107 mmol/L 04/22/2024 6:02 AM EST LABORATORY C CO2 22 22 - 32 mmol/L 04/22/2024 6:02 AM EST [facility] ANION GAP 9 7 - 15 mmol/L 04/22/2024 6:02 AM EST [facility] GLUCOSE 96 70 - 120 mg/dL 04/22/2024 6:02 AM EST [facility] Albumin 2.9(L) 3.8 - 5.0 g/dL 04/22/2024 6:02 AM EST [facility] AST 6(L) 10 - 35 U/L 04/22/2024 6:02 AM EST LABORATORY [facility] Alkaline Phosphatase 49 35 - 130 U/L 04/22/2024 6:02 AM EST [facility] Bilirubin, Total 0.9 <=1.2 mg/dL 04/22/2024 6:02 AM EST [facility] CALCIUM 8.1(L) 8.4 - 10.2 mg/dL 04/22/2024 6:02 AM EST [facility] Protein 5.1(L) 6.0 - 8.3 g/dL 04/22/2024 6:02 AM EST [facility] ALT 8(L) 10 - 35 U/L 04/22/2024 6:02 AM EST [facility] Blood Venous blood specimen / Unknown Venipuncture / Unknown 04/22/2024 5:30 AM EST 04/22/2024 5:35 AM EST us Ruben Chaudhry DO LAB BLOOD ORDERABLES Final Result [facility] [address] [place] [address] * CT CHEST/ABDOMEN/PELVIS WITH IV CONTRAST WITHOUT ORAL CONTRAST (04/21/2024 9:57 PM EST) Anatomical Region Laterality Modality Body, Chest, Abdomen, Pelvis, Cardio Computed Tomography 04/21/2024 11:3 9 PM EST Impressions 04/21/2024 11:37 PM EST IMPRESSION 1. New left retroperitoneal hematomas involving the iliopsoas muscle and posterior pararenal space measuring approximately 4.6 x 6 cm. 2. Mild pulmonary edema with small left pleural effusion. 3. 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 Given the recent benign appearance on recent CTA, the heterogeneity may represent hemorrhage within the cyst. Attention on follow-up exams. Narrative 04/21/2024 11:[address] CHEST/ABDOMEN/PELVIS WITH IV CONTRAST WITHOUT ORAL CONTRAST HISTORY Concern for infection. Hypotensive at outside facility now improved. Sent here for retroperitoneal hematoma but no evidence of active bleeding. Concern hypotension is due to sepsis given leukocytosis of 18. COMPARISON CTA abdomen pelvis 04/15/[address] Chest, Abdomen, and Pelvis was performed with intravenous contrast. FINDINGS CHEST: AIRWAY/LUNGS:Patent central airways. Interlobular septal thickening at the lung bases suggesting pulmonary edema. Scattered atelectasis. PLEURA: Small left pleural effusion. Trace right pleural effusion. MEDIASTINUM AND STEPHEN: No lymphadenopathy. VESSELS: Aortic and coronary calcifications. No aortic aneurysm or dissection. Central pulmonary artery appears clear. HEART: Normal heart size. No pericardial effusion. CHEST WALL/SOFT TISSUES: Within normal limits. ABDOMEN/PELVIS: LIVER: Hepatic cysts. BILE DUCTS: Within normal limits. GALLBLADDER: Cholecystectomy PANCREAS: Within normal limits. SPLEEN: Within normal limits. ADRENALS: Within normal limits. 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 This cyst has been present dating back to 2018, slightly increased in size. Previously 2.9 cm. Contrast excretion is seen in the collecting system bilaterally. There are few small renal cysts bilaterally. No hydronephrosis. BLADDER: Contrast filled. REPRODUCTIVE ORGANS: No pelvic mass. Hysterectomy GI TRACT: No bowel obstruction. Appendix is not visualized. No inflammatory changes in the right lower quadrant to suggest appendicitis. PERITONEUM: New left retroperitoneal hematomas involving the iliopsoas muscle in the posterior pararenal space measuring approximately 4.6 x 6 cm. VESSELS: Left external iliac artery stent is patent. There postsurgical changes in the left groin.. LYMPHADENOPATHY:No lymphadenopathy. ABDOMINAL WALL: Within normal limits. BONES: Postsurgical changes from posterior spinal fusion from T10 through the sacrum with fusion of the bilateral sacroiliac joints. Grade 1 anterolisthesis of L5 on S1. Procedure Note Zachary Moss MD - 04/21/[address] CHEST/ABDOMEN/PELVIS WITH IV CONTRAST WITHOUT ORAL CONTRAST HISTORY Concern for infection. Hypotensive at outside facility now improved. Senthere for retroperitoneal hematoma but no evidence of active bleeding.Concern hypotension is due to sepsis given leukocytosis of 18. COMPARISON CTA abdomen pelvis 04/15/[address] Chest, Abdomen, and Pelvis was performed with intravenous contrast. FINDINGS CHEST: AIRWAY/LUNGS:Patent central airways. Interlobular septal thickening at thelung bases suggesting pulmonary edema. Scattered atelectasis. PLEURA: Small left pleural effusion. Trace right pleural effusion. MEDIASTINUM AND STEPHEN: No lymphadenopathy. VESSELS: Aortic and coronary calcifications. No aortic aneurysm ordissection. Central pulmonary artery appears clear. HEART: Normal heart size. No pericardial effusion. CHEST WALL/SOFT TISSUES: Within normal limits. ABDOMEN/PELVIS: LIVER: Hepatic cysts. BILE DUCTS: Within normal limits. GALLBLADDER: Cholecystectomy PANCREAS: Within normal limits. SPLEEN: Within normal limits. ADRENALS: Within normal limits. KIDNEYS/URETERS: Slight heterogeneous appearance of a 3 cm left upper polerenal calyceal diverticulum with some layering high density. This cysthas been present dating back to 2018, slightly increased in size.Previously 2.9 cm. Contrast excretion is seen in the collecting systembilaterally. There are few small renal cysts bilaterally. Nohydronephrosis. BLADDER: Contrast filled. REPRODUCTIVE ORGANS: No pelvic mass. Hysterectomy GI TRACT: No bowel obstruction. Appendix is not visualized. Noinflammatory changes in the right lower quadrant to suggestappendicitis. PERITONEUM: New left retroperitoneal hematomas involving the iliopsoasmuscle in the posterior pararenal space measuring approximately 4.6 x 6cm. VESSELS: Left external iliac artery stent is patent. There postsurgicalchanges in the left groin.. LYMPHADENOPATHY:No lymphadenopathy. ABDOMINAL WALL: Within normal limits. BONES: Postsurgical changes from posterior spinal fusion from T10 throughthe sacrum with fusion of the bilateral sacroiliac joints. Grade 1anterolisthesis of L5 on S1. IMPRESSION IMPRESSION 1. New left retroperitoneal hematomas involving the iliopsoas muscle andposterior pararenal space measuring approximately 4.6 x 6 cm. 2. Mild pulmonary edema with small left pleural effusion. 3. Slight heterogeneous appearance of a 3 cm left upper pole renalcalyceal diverticulum with some layering high density. Given the recentbenign appearance on recent CTA, the heterogeneity may representhemorrhage within the cyst. Attention on follow-up exams. us Chris Damon DO RAD CT Final Resu lt * CULTURE, URINE, QUANTITATIVE (04/21/2024 8:28 PM EST) Culture Growth No significant growth 04/22/2024 3:28 PM EST LAB[facility]ATORY [facility] Urine Urine specimen / Unknown Non-blood Collection / Unknown 04/21/2024 8:28 PM EST 04/21/2024 8:30 PM EST us Chris Damon DO LAB MICRO - GENERAL ORDERA BLES Final Result LAB[facility]ATORY [facility] [address] [place] [address] * (ABNORMAL) URINALYSIS, REFLEX TO CULTURE (04/21/2024 8:28 PM EST) Color, Urine Yellow Colorless, Light Yellow, Yellow, Dark Yellow 04/21/2024 8:55 PM EST [facility] Clarity, Urine Cloudy(A) Clear 04/21/2024 8:55 PM EST [facility] Glucose, Urine Negative Negative mg/dL 04/21/2024 8:55 PM EST [facility] Bilirubin, Urine Negative Negative 04/21/2024 8:55 PM EST LABORATORY C Ketone, Urine Negative Negative mg/dL 04/21/2024 8:55 PM EST [facility] Specific Laura, Urine 1.040(H) 1.003 - 1.030 04/21/2024 8:55 PM EST [facility] Blood, Urine Large(A) Negative 04/21/2024 8:55 PM EST [facility] pH, Urine 6.5 5.0 - 7.5 Units 04/21/2024 8:55 PM EST [facility] Protein, Urine 100(A) Negative mg/dL 04/21/2024 8:55 PM EST [facility] Urobilinogen, Urine Normal Normal mg/dL 04/21/2024 8:55 PM EST [facility] Nitrite, Urine Positive(A) Negative 04/21/2024 8:55 PM EST [facility] Esterase, Urine Large(A) Negative 04/21/2024 8:55 PM EST [facility] RBC, Urine 50+(A) 0 - 2 /HPF 04/21/2024 8:55 PM EST [facility] WBC, Urine 50+(A) 0 - 2 /HPF 04/21/2024 8:55 PM EST [facility] Bacteria, Urine 151-200(A) 0 - 25 /HPF 04/21/2024 8:55 PM EST [facility] WBC Clumps, Urine Present(A) None /HPF 04/21/2024 8:55 PM EST LAB[facility] Culture, Urine 04/21/2024 8:55 PM EST LABORATORY C Comment:Quantitative urine c ulture to be performed Urine Urine specimen / Unknown Non-blood Collection / Unknown 04/21/2024 8:28 PM EST 04/21/2024 8:30 PM EST Chris Damon DO LAB URINE ORDERABLES Final Result Performing Organization Address City/[facility]/ZIP Co de Phone Number LABORATORY [address] [address] * URINALYSIS, REFLEX TO CULTURE (CUP ONLY) (04/21/2024 8:28 PM EST) Urinalysis, Reflex to Culture Specimen Specimen collected and received 04/21/2024 10:01 PM EST [facility] Urine Urine specimen / Unknown Non-blood Collection / Unknown 04/21/2024 8:28 PM EST 04/21/2024 8:29 PM EST Chris Damon DO LAB URINE ORDERABLES Final Result Performing Organization Address [facility] de Phone Number LABORATORY [address] [address] * RESPIRATORY PATHOGEN PANEL, PCR (04/21/2024 8:04 PM EST) Pathologist [facility] [place] Adenovirus by PCR Negative Negative 024 9:20 PM EST LAB[facility] Coronavirus 229E by PCR Negative Negative 04/21/2024 9:20 PM EST [facility] Coronavirus HKU1 by PCR Negative Negative 04/21/2024 9:20 PM EST [facility] Coronavirus NL63 by PCR Negative Negative 04/21/2024 9:20 PM EST [facility] Coronavirus OC43 by PCR Negative Negative 04/21/2024 9:20 PM EST [facility] Coronavirus SARS-CoV-2 by PCR Negative Negative 04/21/2024 9:20 PM EST [facility] Human Metapneumovirus by PCR Negative Negative 04/21/2024 9:20 PM EST [facility] Rhinovirus/Enterovi chichi by PCR Negative Negative 04/21/2024 9:20 PM EST [facility] Influenza A Virus by PCR Negative Negative 04/21/2024 9:20 PM EST [facility] Influenza B Virus by PCR Negative Negative 04/21/2024 9:20 PM EST [facility] Parainfluenza Virus 1 by PCR Negative Negative 04/21/2024 9:20 PM EST [facility] Parainfluenza Virus 2 by PCR Negative Negative 04/21/2024 9:20 PM EST [facility] Parainfluenza Virus 3 by PCR Negative Negative 04/21/2024 9:20 PM EST [facility] Parainfluenza Virus 4 by PCR Negative Negative 04/21/2024 9:20 PM EST [facility] Respiratory Syncytial Virus by PCR Negative Negative 04/21/2024 9:20 PM EST [facility] Bordetella pertussis by PCR Negative Negative 04/21/2024 9:20 PM EST LABORATORY C Chlamydia pneumoniae by PCR Negative Negative 04/21/2024 9:20 PM EST [facility] Mycoplasma pneumoniae by PCR Negative Negative 04/21/2024 9:20 PM EST [facility] Bordetella parapertussis by PCR Negative Negative 04/21/2024 9:20 PM EST [facility] Comment: The primers that detect Rhinovirus may cross react with some Enterorviruses. The validation of bronchial specimens, tracheal aspirates, and throats for this assay was developed and performance characteristics determined by [employer]. The validation of alternate specimen types has not been cleared or approved by the U.S. Food and Drug Administration (FDA). It has been determined that such clearance or approval is not necessary. Upper Respiratory Mid-turbinate nasal swab / Unknown Non-blood Collection / Unknown 04/21/2024 8:04 PM EST 04/21/2024 8:12 PM EST Chris Damon DO LAB MICRO - GENERAL ORDERA BLES Final Result [facility] [address] [place] [address] * (ABNORMAL) DIFFERENTIAL, AUTOMATED (04/21/2024 6:46 PM EST) WBC 18.97(H) 4.00 - 10.80 K/uL 04/21/2024 7:16 PM EST [facility] Neutrophils % 80.8(H) 40.0 - 75.0 % 04/21/2024 7:16 PM EST [facility] Lymphocytes % 7.5(L) 18.0 - 42.0 % 04/21/2024 7:16 PM EST [facility] Monocytes % 10.3 1.0 - 11.0 % 04/21/2024 7:16 PM EST [facility] Eosinophils % 0.1 0.0 - 6.0 % 04/21/2024 7:16 PM EST [facility] Basophils % 0.2 0.0 - 2.0 % 04/21/2024 7:16 PM EST [facility] Immature Granulocytes % 1.1 0.0 - 2.0 % 04/21/2024 7:16 PM EST [facility] Absolute Neutrophils 15.33(H) 1.80 - 7.70 K/uL 04/21/2024 7:16 PM EST [facility] Absolute Lymphocytes 1.43 1.00 - 4.80 K/ul 04/21/2024 7:16 PM EST [facility] Absolute Monocytes 1.95(H) 0.00 - 1.10 K/uL 04/21/2024 7:16 PM EST [facility] Absolute Eosinophils 0.02 0.00 - 0.70 K/uL 04/21/2024 7:16 PM EST [facility] Absolute Basophils 0.03 0.00 - 0.20 K/uL 04/21/2024 7:16 PM EST [facility] Absolute Immature Granulocytes 0.21(H) 0.00 - 0.20 K/uL 04/21/2024 7:16 PM EST [facility] Blood Venous blood specimen / Unknown Venipuncture / Unknown 04/21/2024 6:46 PM EST 04/21/2024 6:56 PM EST us Lawrence Rainey DO LAB BLOOD ORDERABLES F inal Result [facility]ATORY [facility] [address] [place] [address] * (ABNORMAL) CBC (04/21/2024 6:46 PM EST) Pathologist [facility] [place] WBC 18.97(H) 4.00 - 10.80 K/uL 04/21/2024 7:16 PM EST [facility] RBC 2.63 3.85 - 5.15 M/uL 04/21/2024 7:16 PM EST [facility] HGB 8.0(L) 12.0 - 15.3 g/dL 04/21/2024 7:16 PM EST [facility] HCT 25.3(L) 36.0 - 45.2 % 04/21/2024 7:16 PM EST [facility] MCV 96.2 81.5 - 97.5 fL 04/21/2024 7:16 PM EST [facility] MCH 30.4 27.0 - 34.0 pg 04/21/2024 7:16 PM EST [facility] MCHC 31.6 32.0 - 36.0 g/dL 04/21/2024 7:16 PM EST [facility] RDW 15.3 11.5 - 15.5 % 04/21/2024 7:16 PM EST [facility] PLT 176 140 - 400 K/uL 04/21/2024 7:16 PM EST [facility] MPV 10.3 6.6 - 11.1 fL 04/21/2024 7:16 PM EST [facility] nRBCs 0 <=0 /100 WBCs 04/21/2024 7:16 PM EST [facility] Blood Venous blood specimen / Unknown Venipuncture / Unknown 04/21/2024 6:46 PM EST 04/21/2024 6:56 PM EST Lawrence Rainey DO LAB BLOOD ORDERABLES F inal Result [facility] [address] [place] [address] * LACTATE WITH REFLEX IF ABNORMAL (04/21/2024 6:46 PM EST) [facility] Lactate 1.3 0.4 - 2.0 mmol/L 04/21/2024 7:24 PM EST [facility] Blood Venous blood specimen / Unknown Venipuncture / Unknown 04/21/2024 6:46 PM EST 04/21/2024 6:56 PM EST Lawrencebuddy Rainey DO LAB BLOOD ORDERABLES F inal Result Performing Organization Address [facility] de Phone Number LABORATORY [facility] [address] [place] [address] * (ABNORMAL) CK (04/21/2024 6:45 PM EST) CK 19(L) 26 - 192 U/L 04/22/2024 4:47 AM EST [facility] Blood Venous blood specimen / Unknown Venipuncture / Unknown 04/21/2024 6:45 PM EST 04/21/2024 6:56 PM EST us Mary Dalton MD LAB BLOOD ORDERABLES Final Resul t Performing Organization Address [facility] de Phone Number LABORATORY [facility] [address] [place] [address] * TEG (THROMBOELASTOGRAPH), HEPARINASE (04/21/2024 6:45 PM EST) Reaction Time 6.3 2.5 - 8.3 minutes 04/21/2024 8:10 PM EST [facility] Kinetics Time 1.3 0.5 - 3.7 minutes 04/21/2024 8:10 PM EST [facility] Alpha Angle 69.7 46.8 - 78.4 degrees 04/21/2024 8:10 PM EST [facility] Maximum Amplitude 69.4 50.6 - 72.5 mm 04/21/2024 8:10 PM EST [facility] Coagulation Index 1.4 -3.0 - 3.0 04/21/2024 8:10 PM EST [facility] Percent Lysis 30 0.2 0.0 - 7.5 % 024 8:10 PM EST [facility] Comment:This is an appended report. These results have been appended to a previously preliminary verified report. Blood Venous blood specimen / Unknown Venipuncture / Unknown 04/21/2024 6:45 PM EST 04/21/2024 6:56 PM EST us Lawrence Rainey DO LAB BLOOD ORDERABLES F inal Result Performing Organization Address City/[facility] Co de Phone Number LABORATORY [facility] [address] [place] [address] * TEG (THROMBOELASTOGRAPH) (04/21/2024 6:45 PM EST) Reaction Time 5.8 2.5 - 8.3 minutes 04/21/2024 8:10 PM EST [facility] Kinetics Time 1.2 0.5 - 3.7 minutes 04/21/2024 8:10 PM EST [facility] Alpha Angle 71.7 46.8 - 78.4 degrees 04/21/2024 8:10 PM EST [facility] Maximum Amplitude 69.5 50.6 - 72.5 mm 04/21/2024 8:10 PM EST [facility] Coagulation Index 1.9 -3.0 - 3.0 04/21/2024 8:10 PM EST [facility] Percent Lysis 30 0.1 0.0 - 7.5 % 024 8:10 PM EST [facility] Comment:This is an appended report. These results have been appended to a previously preliminary verified report. Blood Venous blood specimen / Unknown Venipuncture / Unknown 04/21/2024 6:45 PM EST 04/21/2024 6:56 PM EST [facility] LAB[facility]AT[facility] - 04/21/2024 8:10 PM EST If R time > 20 minutes and no clot formed suggesting hypocoagulable state or interfering substance (anticoagulation). Consider resubmitting a new sample and/or checking PT/INR, aPTT, fibrinogen, and platelet count. us Lawrence Rainey DO LAB BLOOD ORDERABLES F inal Result [facility]ORY [facility] [address] [place] [address] * TYPE AND SCREEN (04/21/2024 6:45 PM EST) ABO O 04/21/2024 7:48 PM EST [facility] BLOOD BANK Rh Positive 04/21/2024 7:48 PM EST [facility] BLOOD BANK Red Blood Cell Antibody Screen Negative 04/21/2024 7:48 PM EST [facility] BLOOD BANK Specimen Expiration Date 04/24/2024 23:59 04/21/2024 7:48 PM EST [facility] BLOOD BANK Blood Venous blood specimen / Unknown Venipuncture / Unknown 04/21/2024 6:45 PM EST 04/21/2024 6:56 PM EST Lawrencemukund Rainey LAB BLOOD BANK TEST OR DERABLES Final Result Performing Organization Address [facility] de Phone Number LAB[facility]ATORY [facility] BLOOD BANK [address] [place] [address] * (ABNORMAL) PT INR (04/21/2024 6:45 PM EST) Prothrombin Time 18.3(H) 11.6 - 15.2 seconds 04/21/2024 7:16 PM EST [facility] INR 1.5(H) 0.8 - 1.2 04/21/2024 7:16 PM EST [facility] Blood Venous blood specimen / Unknown Venipuncture / Unknown 04/21/2024 6:45 PM EST 04/21/2024 6:56 PM EST Narrative LAB[facility]ATORY [facility] - 04/21/2024 7:16 PM EST Warfarin Therapy INR: 2.0-3.0 conventional anticoagulation INR: 2.5-3.5 high intensity anticoagulation Lawrence Rainey LAB BLOOD ORDERABLES F inal Result Performing Organization Address [facility] de Phone Number LAB[facility]ATORY [facility] [address] [place] [address] * (ABNORMAL) COMPREHENSIVE METABOLIC PANEL (04/21/2024 6:45 PM EST) BUN 16 6 - 20 mg/dL 04/21/2024 7:23 PM EST LAB[facility] CREATININE 0.9 0.5 - 1.0 mg/dL 04/21/2024 7:23 PM EST [facility] EGFR 64 >=60 mL/min 04/21/2024 7:23 PM EST [facility] Comment:eGFR is calculated b ased on the CKD-EPI 2020 equation. SODIUM 138 135 - 146 mmol/L 04/21/2024 7:23 PM EST [facility] POTASSIUM 4.4 3.5 - 5.1 mmol/L 04/21/2024 7:23 PM EST [facility] CHLORIDE 107 98 - 107 mmol/L 04/21/2024 7:23 PM EST [facility] CO2 22 22 - 32 mmol/L 04/21/2024 7:23 PM EST [facility] ANION GAP 9 7 - 15 mmol/L 04/21/2024 7:23 PM EST [facility] GLUCOSE 125(H) 70 - 120 mg/dL 04/21/2024 7:23 PM EST [facility] Albumin 3.1(L) 3.8 - 5.0 g/dL 04/21/2024 7:23 PM EST [facility] AST 6(L) 10 - 35 U/L 04/21/2024 7:23 PM EST [facility] Alkaline Phosphatase 55 35 - 130 U/L 04/21/2024 7:23 PM EST [facility] Bilirubin, Total 1.4(H) <=1.2 mg/dL 04/21/2024 7:23 PM EST [facility] CALCIUM 8.1(L) 8.4 - 10.2 mg/dL 04/21/2024 7:23 PM EST [facility] Protein 5.5(L) 6.0 - 8.3 g/dL 04/21/2024 7:23 PM EST [facility] ALT 9(L) 10 - 35 U/L 04/21/2024 7:23 PM EST [facility] Blood Venous blood specimen / Unknown Venipuncture / Unknown 04/21/2024 6:45 PM EST 04/21/2024 6:56 PM EST us Lawrence Rainey DO LAB BLOOD ORDERABLES F inal Result [facility]ORY [facility] [address] [place] [address] documented in this encounter Visit Diagnoses Diagnosis Acute blood loss anemia- Primary Acute posthemorrhagic anemia Urinary tract infection Urinary tract infection, site not specified Chest pain Chest pain, unspecified Retroperitoneal hematoma Hemorrhage, unspecified Pleural effusion, not elsewhere classified Chronic pulmonary edema Pulmonary congestion and hypostasis Calculus of kidney Hypotension, unspecified Elevated white blood cell count, unspecified Other specified symptoms and signs involving the digestive system and abdomen Abnormal findings on diagnostic imaging of other specified body structures Exposure to other specified factors, initial encounter Acute blood loss anemia Acute posthemorrhagic anemia COPD, mild (HCC) Chronic airway obstruction, not elsewhere classified Irritable bowel syndrome with constipation Irritable bowel syndrome Allergic rhinitis due to pollen Vitamin D deficiency Unspecified vitamin D deficiency HTN, goal below 150/90 Vitamin B12 deficiency Other B-complex deficiencies Carotid-cavernous fistula Arteriovenous fistula, acquired Gastro-esophageal reflux disease without esophagitis Esophageal reflux Dyslipidemia Other and unspecified hyperlipidemia Sepsis (HCC) Unspecified septicemia UTI (urinary tract infection) Urinary tract infection, site not specified Retroperitoneal hematoma Hemorrhage, unspecified Hyperbilirubinemia Jaundice, unspecified, not of documented in this encounter Administered Medications Inactive Administered Medications - up to 3 most recent administrations Medication Order MAR Action Action Date Dose Rate Site Apixaban (Eliquis) tab 10 mg 10 mg, Oral, BID (.AM/PM), First dose (after last modification) on Marjorie 04/23/24 at 2100, Last dose on Sat04/25/24 at 2100, For 5 doses Given 04/24/2024 8:06 AM EST 10 mg Given 04/23/2024 9:00 PM EST 10 mg Apixaban (Eliquis) tab 5 mg 5 mg, Oral, BID (.AM/PM), First dose on Sat04/26/24 at 0900, Until Discontinued Artificial Tears (Tears Naturale II) ophthalmic solution 1 Drop 1 Drop, Both eyes, QID PRN Other, eye irritation, dryness, pain, Starting on Sat04/23/24 at 0730, Until Sat04/24/24 at 1842 cefTRIAXone in dextrose (Rocephin) IVPB 1 g IV Piggyback, 1 g, ONCE, 1 dose, On Sat04/21/24 at 2200, Administer over 30 Minutes Restarted 04/21/2024 10:40 PM EST 2 g/hr 100 mL/hr Restarted 04/21/2024 10:30 PM EST 2 g/hr 100 mL/hr Restarted 04/21/2024 10:14 PM EST 2 g/hr 100 mL/hr cefTRIAXone in dextrose (Rocephin) IVPB 1 g IV Piggyback, 1 g, Q24H, 5 doses, First dose on Sat04/22/24 at 2200, Last dose on Sat04/26/24 at 2200, Administer over 30 Minutes Restarted 04/22/2024 9:21 PM EST 2 g/hr 100 mL/hr New Bag 04/22/2024 9:11 PM EST 1 g 100 mL/hr Cephalexin (Keflex) cap 500 mg 500 mg, Oral, Q6H, First dose on Sat04/23/24 at 1200, Last dose on Sat04/28/24 at 0600, For 5 days Given 04/24/2024 11:48 AM EST 500 mg Given 04/24/2024 5:26 AM EST 500 mg Given 04/23/2024 11:28 PM EST 500 mg cholecalciferol (VIT D3) (Vitamin D3) tab 2,000 Units 2,000 Units, Oral, Daily(AM), First dose on Sat04/22/24 at 0900, Until Discontinued, NOTE 1000 units = 25 mcg Given 04/24/2024 8:06 AM EST 2, 000 Units Given 04/23/2024 12:59 PM EST 2,000 Units Given 04/22/2024 8:27 AM EST 2,000 Units clopidogrel (pLAVix) tab 75 mg 75 mg, Oral, Daily(AM), First dose on Sat04/22/24 at 1145, Until Discontinued Given 04/24/2024 8:06 AM EST 75 mg Given 04/23/2024 9:52 AM EST 75 mg Given 04/22/2024 12:51 PM EST 75 mg CYANOCOBALAMIN (vitamin B-12) tab 1,000 mcg 1,000 mcg, Oral, Daily(AM), First dose on Sat04/22/24 at 0900, Until Discontinued Given 04/24/2024 8:06 AM EST 1,000 mcg Given 04/23/2024 9:53 AM EST 1,000 mcg Given 04/22/2024 8:27 AM EST 1,000 mcg fluticasone (Flonase) nasal inhaler 1 [place] 1 [place], Each Nostril, BID (.AM/PM), First dose on Sat04/22/24 at 0900, Until Discontinued, 50 mcg / Actuation Given 04/24/2024 8:06 AM EST 1 [place] Given 04/23/2024 9:06 PM EST 1 [place] Given 04/23/2024 9:53 AM EST 1 [place] Iopamidol (Isovue 370) inj 80 mL 80 mL, Intravenous, ONCE, On Sat04/21/24 at 2230, For 1 dose, Radiology Medication Routing (Non-IR) Given 04/21/2024 10:30 PM EST 80 mL isolyte 250 mL bolus infusion Intravenous, Administer entire volume within 60 minutes or less. Plasma-LYTE 148, isolyte-S, and isolyte-S pH 7.4 are considered equivalent - including for MAR barcode scanning., ONCE, 1 dose, On Sat04/22/24 at 0530 KVO 04/22/2024 5:29 AM EST 5 mL/hr Rate Change 04/22/2024 5:01 AM EST 500 mL/hr New Bag 04/22/2024 5:00 AM EST 250 mL 1000 mL/hr isolyte 500 mL bolus infusion Intravenous, Administer entire volume within 60 minutes or less. Plasma-LYTE 148, isolyte-S, and isolyte-S pH 7.4 are considered equivalent - including for MAR barcode scanning., ONCE, 1 dose, On Sat04/22/24 at 0000 New Bag 04/21/2024 11:32 PM EST 500 mL 1000 mL/h r isolyte 500 mL bolus infusion Intravenous, Administer entire volume within 60 minutes or less. Plasma-LYTE 148, isolyte-S, and isolyte-S pH 7.4 are considered equivalent - including for MAR barcode scanning., ONCE, 1 dose, On Sat04/22/24 at 0615 Rate Verify 04/22/2024 6:16 AM EST 500 mL/hr New Bag 04/22/2024 5:46 AM EST 500 mL 500 mL/hr omeprazole (PriLOSEC) cap 40 mg 40 mg, Oral, Daily(AM), First dose on Sat04/22/24 at 0900, Until Discontinued Given 04/22/2024 8:27 AM EST 40 mg oxygen GAS Inhalation, OXYGEN, First dose on Sat04/22/24 at 0800, Until Discontinued, Device/Managed by: Low Flow Device, Goal SPO2 (%): 91-95, Starting Device: Nasal Cannula, Initial Flow Rate (LPM): 2, Lowest Support: Nasal Cannula: Flow 0-6 LPM. Titrate up/down by 1 LPM., Titration Interval: Q2 minutes and as needed., Notify Provider: For sudden DECREASE in resting SPO2 to less than 85% and when escalating delivery device., Wean patient off Oxygen when the oxygen saturation is greater than or equal to 93% Oxygen On 04/23/2024 8:00 AM EST pantoprazole (Protonix) tab 40 mg 40 mg, Oral, Daily(AM), First dose on Sat04/22/24 at 1145, Until Discontinued, This med should NOT be Crushed or Chewed Given 04/24/2024 8:06 AM EST 40 mg Given 04/23/2024 9:53 AM EST 40 mg Given 04/22/2024 12:51 PM EST 40 mg potassium chloride ER tab 10 mEq 10 mEq, Oral, ONCE, On Sat04/24/24 at 1015, For 1 dose, This med should NOT be Crushed or Chewed Given 04/24/2024 11:48 AM EST 10 mEq rosuvastatin (Crestor) tab 20 mg 20 mg, Oral, Daily(AM), First dose on Sat04/22/24 at 0900, Until Discontinued Given 04/24/2024 8:06 AM EST 20 mg Given 04/23/2024 9:53 AM EST 20 mg Given 04/22/2024 8:27 AM EST 20 mg sodium chloride 0.9 % flush/inj 3 mL 3 mL, IV Push, PRN Other, Line Patency, Starting on Sat04/22/24 at 0226, Until Sat04/24/24 at 1842, Do not flush if lock, PICC, or central line not in place, IV infusing or unable to flush documented in this encounter Active and Recently Administered Medications Times are shown in EST. Scheduled Medication Order 04/22/2024 04/23/2024 04/24/2024 Apixaban (Eliquis) tab 10 mg(Linked Group 1) 10 mg, Oral, BID (.AM/PM), First dose (after last modification) on Marjorie 04/23/24 at 2100, Last dose on 04/25/24 at 2100, For 5 doses 2100 (Given - Provider: Beckie Yu RN) 0806 (Given - Provider: Sumanth Hi RN) Apixaban (Eliquis) tab 5 mg(Linked Group 1) 5 mg, Oral, BID (.AM/PM), First dose on Sat04/26/24 at 0900, Until Discontinued cefTRIAXone in dextrose (Rocephin) IVPB 1 g (CANCELED) IV Piggyback, 1 g, Q24H, 5 doses, First dose on Sat04/22/24 at 2200, Last dose on Sat04/26/24 at 2200, Administer over 30 Minutes 2110 (New Bag - Provider: Maryam Garcias RN)2111 (Paused - Provider: Maryam Garcias RN)2120 (Restarted - Provider: Maryam Garcias RN)2150 (Stopped - Provider: Maryam Garcias RN) Cephalexin (Keflex) cap 500 mg 500 mg, Oral, Q6H, First dose on Sat04/23/24 at 1200, Last dose on Sat04/28/24 at 0600, For 5 days 1302 (Given - Provider: Radha Portillo RN)1749 (Given - Provider: Berta Paez RN)2328 (Given - Provider: Beckie Yu RN) 0526 (Given - Provider: Beckie Yu RN)1148 (Given - Provider: Sumanth Hi RN) cholecalciferol (VIT D3) (Vitamin D3) tab 2,000 Units 2,000 Units, Oral, Daily(AM), First dose on Sat04/22/24 at 0900, Until Discontinued, NOTE 1000 units = 25 mcg 0827 (Given - Provider: Adelaide Shelley RN) 1259 (Given - Provider: Radha Portillo RN) 0806 (Given - Provider: Sumanth Hi RN) clopidogrel (pLAVix) tab 75 mg 75 mg, Oral, Daily(AM), First dose on Sat04/22/24 at 1145, Until Discontinued 1251 (Given - Provider: Ellie Helton RN) 0952 (Given - Provider: Radha Portillo RN) 0806 (Given - Provider: Sumanth Hi RN) CYANOCOBALAMIN (vitamin B-12) tab 1,000 mcg 1,000 mcg, Oral, Daily(AM), First dose on Sat04/22/24 at 0900, Until Discontinued 826 (Given - Provider: Adelaide Shelley, RN) 0953 (Given - Provider: Radha Portillo, PEPPER) 08 (Given - Provider: Sumanth Hi, PEPPER) fluticasone (Flonase) nasal inhaler 1 Buck[place] 1 [place], Each Nostril, BID (.AM/PM), First dose on Sat04/22/24 at 0900, Until Discontinued, 50 mcg / Actuation 826 (Given - Provider: Adelaide Shelley RN)2100 (Given - Provider: Maryam Garcias RN) 09 (Given - Provider: Radha Portillo, PEPPER)210 (Given - Provider: Beckie Yu RN) 08 (Given - Provider: Sumanth Hi, PEPPER) isolyte 250 mL bolus infusion (COMPLETED) Intravenous, Administer entire volume within 60 minutes or less. Plasma-LYTE 148, isolyte-S, and isolyte-S pH 7.4 are considered equivalent - including for MAR barcode scanning., ONCE, 1 dose, On Sat04/22/24 at 0530 0500 (New Bag - Provider: Vasu Linder RN)0501 (Paused - Provider: Vasu Linder RN)0501 (Rate Change - Provider: Vasu Linder RN)0529 (KVO - Provider: Vasu Linder RN)0544 (Stopped - Provider: Vasu Linder RN) isolyte 500 mL bolus infusion (COMPLETED) Intravenous, Administer entire volume within 60 minutes or less. Plasma-LYTE 148, isolyte-S, and isolyte-S pH 7.4 are considered equivalent - including for MAR barcode scanning., ONCE, 1 dose, On Sat04/22/24 at 0615 0546 (New Bag - Provider: Vasu Linder RN)0616 (Rate Verify - Provider: Vasu Linder RN)0648 (Stopped - Provider: Adelaide Shelley RN) omeprazole (PriLOSEC) cap 40 mg (CANCELED) 40 mg, Oral, Daily(AM), First dose on Sat04/22/24 at 0900, Until Discontinued 826 (Given - Provider: Adelaide Shelley RN) oxygen GAS Inhalation, OXYGEN, First dose on Sat04/22/24 at 0800, Until Discontinued, Device/Managed by: Low Flow Device, Goal SPO2 (%): 91-95, Starting Device: Nasal Cannula, Initial Flow Rate (LPM): 2, Lowest Support: Nasal Cannula: Flow 0-6 LPM. Titrate up/down by 1 LPM., Titration Interval: Q2 minutes and as needed., Notify Provider: For sudden DECREASE in resting SPO2 to less than 85% and when escalating delivery device., Wean patient off Oxygen when the oxygen saturation is greater than or equal to 93% 0800 (Oxygen Off - Provider: Adelaide Shelley RN)1600 (Oxygen Off - Provider: Skye Steven RN) 0000 (Oxygen Off - Provider: Zoie Smith RN)0800 (Oxygen On - Provider: Radha Portillo RN)1600 (Oxygen Off - Provider: Berta Paez RN) 0000 (Oxygen Off - Provider: Beckie Yu RN)0800 (Oxygen Off - Provider: Sumanth Hi RN) pantoprazole (Protonix) tab 40 mg 40 mg, Oral, Daily(AM), First dose on Sat04/22/24 at 1145, Until Discontinued, This med should NOT be Crushed or Chewed 1251 (Given - Provider: Ellie Helton RN) 0953 (Given - Provider: Radha Portillo RN) 0806 (Given - Provider: Sumanth Hi RN) potassium chloride ER tab 10 mEq (COMPLETED) 10 mEq, Oral, ONCE, On Sat04/24/24 at 1015, For 1 dose, This med should NOT be Crushed or Chewed 1148 (Given - Provider: Sumanth Hi, PEPPER) rosuvastatin (Crestor) tab 20 mg 20 mg, Oral, Daily(AM), First dose on Sat04/22/24 at 0900, Until Discontinued 08 (Given - Provider: Adelaide Shelley RN) 0953 (Given - Provider: Radha Portillo RN) 0806 (Given - Provider: Sumanth Hi RN) PRN Medication Order 04/22/2024 04/23/2024 04/24/2024 Artificial Tears (Tears Naturale II) ophthalmic solution 1 Drop 1 Drop, Both eyes, QID PRN Other, eye irritation, dryness, pain, Starting on Marjorie 04/23/24 at 0730, Until Sat04/24/24 at 1842 sodium chloride 0.9 % flush/inj 3 mL 3 mL, IV Push, PRN Other, Line Patency, Starting on Sat04/22/24 at 0226, Until Sat04/24/24 at 1842, Do not flush if lock, PICC, or central line not in place, IV infusing or unable to flush Linked Groups Order Group 1: Apixaban (Eliquis) tab 10 mgJump to med 10 mg, Oral, BID (.AM/PM), First dose (after last modification) on Marjorie 04/23/24 at 2100, Last dose on 04/25/24 at 2100, For 5 doses Followed by Apixaban (Eliquis) tab 5 mgJump to med 5 mg, Oral, BID (.AM/PM), First dose on Sat04/26/24 at 0900, Until Discontinued documented in this encounter Additional Health Concerns [...] Discussed due to patient's condition Care Teams Bone Worker Relationship Specialty Start Date End Date Bharati Wang MD [address] [place] [address] SAHIL Ballard [phone] PCP - General Family Medicine 10/02/21 documented as of this encounter
--- OUTSIDE RECORDS SUMMARY | 2024-07-03 23:06 | External Medical Summary | Summary of Care ---
Author Name Unknown Organization [facility] Address [address] [place] [address] Phone [phone] Care Team Providers Care Construction Management Instructor Name Role Phone Bharati Wang MD Primary Care Provide r Reason for Visit * Reason Comments [facility] Encounter Details Date Type Department Care Team (Latest Contact Info) Description 04/21/2024 5:00 PM EST Documentation [facility] [address] [place] [address] 2, [facility] [address], [place] [id number] Retroperitoneal hematoma* Allergies Active Allergy Reactions Criticality Noted Date Comments Ampicillin 09/23/2003 Hives/trouble breathing Azithromycin 09/24/2003 hives and angioedema Ranitidine 10/29/2002 rash documented as of this encounter (statuses as of 04/22/2024) Medications VITAMIN D 2000 UNITS PO CAPS Take 2,000 Units by mouth daily with dinner. [address] ARTHRITIS PAIN 500 MG PO TABS 1-2 tabs as needed for discomfort Suspended Cyanocobalamin 1000 MCG Oral Tablet Take 1 Tablet by mouth daily at noon. 8 Suspended Loratadine 10 MG Oral Tablet (Claritin)Yamileth cations:Nasal congestion Take 1 Tablet by mouth every night at bedtime. 30 Tablet 11 3 Suspended Fluticasone Propionate 50 MCG/ACT Nasal Suspension (Flonase)Indic ations:Nasal congestion USE ONE SPRAY IN each nostril IN THE MORNING AND in the evening 16 g 4 Suspended Omeprazole 40 MG Oral Capsule Delayed Release (PriLOSEC)Yamileth cations:Cyrus t's esophagus with dysplasia TAKE ONE CAPSULE BY MOUTH EVERY MORNING 100 Capsule 3 4 Suspended Lisinopril 40 MG Oral TabletIndicati ons:HTN, goal below 150/90 TAKE ONE TABLET BY MOUTH IN THE MORNING 100 Tablet 3 4 Suspended amLODIPine Besylate 5 MG Oral Tablet (Norvasc)Indic ations:HTN, goal below 150/90 TAKE ONE TABLET BY MOUTH EVERY MORNING 90 Tablet 3 4 Suspended Rosuvastatin Calcium 20 MG Oral Tablet (Crestor)Indic ations:Carotid stenosis, non-symptomati c, bilateral TAKE ONE TABLET BY MOUTH EVERY DAY 90 Tablet 3 4 Suspended Apixaban 5 MG Oral Tablet (Eliquis) Take 2 Tablets by mouth 2 times a day for 7 days, THEN 1 Tablet 2 times a day. 90 Tablet 1 04/18/2024 12:53 PM EST 4 05/25/20 24 Suspended Clopidogrel Bisulfate 75 MG Oral Tablet (pLAVix) Take 1 Tablet by mouth in the morning. 30 Tablet 5 04/18/2024 12:53 PM EST 4 Suspended dexAMETHasone 2 MG Oral Tablet (Decadron) Take 2 Tablets by mouth 2 times a day with morning and evening meals for 1 day, THEN 1 Tablet 2 times a day with morning and evening meals for 1 day, THEN 1 Tablet daily with breakfast for 1 day. 7 Tablet 04/18/2024 12:53 PM EST 4 04/21/20 24 documented as of this encounter (statuses as of 04/22/2024) Active Problems Problem Noted Date Diagnosed Date Sepsis 04/22/2024 UTI (urinary tract infection) 04/22/2024 Acute blood loss anemia 04/22/2024 Retroperitoneal hematoma 04/22/2024 Hyperbilirubinemia 04/22/2024 Acute lower [...] as of this encounter (statuses as of 04/22/2024) Resolved Problems Problem Noted Date Diagnosed Date Resolved Date Chronic kidney disease, stage 3a 12/05/2020 03/02/2024 [...] as of this encounter (statuses as of 04/22/2024) Immunizations Name Administration Dates Next Due COVID-19 [...] have concerns for your saf ety? No 04/20/2024 Do you have concerns for you r family's safety? (Household - for ages 0-17 years) Not on file 04/20/2024 Utilities Answer Date Recorded Do you have trouble paying y our heating, water, or electric bill? No 04/20/2024 Is your family able to pay t he heat, water, or electric bill? (Household - for ages 0-17 years) Not on file 04/20/2024 Does your family have access to good internet? (Household - for ages 0-17 years) Not on file 04/20/2024 Employment Status Answer Date Recorded Are you [...] 18 years and over) Not on file 04/20/2024 Does your family have a hard time getting a ride to doctors visits? (Household - for ages 0-17 years) Not on file 04/20/2024 Has lack of transportation k ept you from medical appointments, meetings, work, or from getting things needed for daily living? Check all that apply. No 04/20/2024 Do you (or your family) have trouble finding or paying for a ride (transportation)? (Household - for ages 0-17 years) Not on file 04/20/2024 Housing Stability Answer Date Recorded Do you currently live in a s helter or have no steady place to sleep at night? No 04/20/2024 Do you think you are at risk of becoming homeless? (Adult - for ages 18 years and over) Not on file 04/20/2024 Does your family worry about paying for your home or becoming homeless? (Household - for ages 0-17 years) Not on file 1 06/20/2023 Are you homeless or worried that you might be in the future? No 04/20/2024 Are you (or your family) eboni eless or worried that you might be in the future? (Household - for ages 0-17 years) Not on file Food Insecurity Answer Date Recorded Do you need food for this week? No 04/20/2024 Are you able to get enough f ood for your family? (Household - for ages 0-17 years) Not on file 04/20/2024 Does your family need food t his week? (Household - for ages 0-17 years) Not on file 04/20/2024 Do you always have enough fo od for your family? 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 Not on file Not on file Not on file documented as of this encounter Progress Notes * West Johns, RN - 04/21/2024 8:42 PM EST MEDICARE AMBULANCE INFORMATION SHEET Patient Admitted as an Inpatient: yes Certifying Physician/Ordering Service:[facility] ED Physician - Chris Dodd M.D. [facility] [address] [place] [address] Point of Information Resources Manager (zip code required): Hospital [facility] - [address]; [place] [address] Destination (Specify Name/Address): [facility] - [address]; [place] [address] Patient transported to nearest facility (capable of mgmt for Pt's condition): YES Total number of Loaded Miles: 66.6 miles Mode of Transport: Air Completed by: West Johns RN documented in this encounter Plan of Treatment Upcoming Encounters Date Type Department Care Team (Late st Contact Info) Description 04/29/2024 11:20 AM EST Office Visit [address] [phone] Bharati Wang MD [address] [place] [address] SAHIL Ballard [phone] 05/11/2024 1:00 PM EST Office Visit [facility] [address] [place] [address] Yann Jackson MD [address] [place] [address] 06/05/2024 1:20 PM EST Office Visit [address] [phone] Latha Shah CRNP [address] [place] [address] SAHIL Ballard [phone] Scheduled Procedures Name Priority Associated Diagnoses Date/Ti [...] this encounter Medical Devices Implanted Type Area Commodities Trader Device Identifier Shelf Expiration Date Model / Serial / Lot Coil Target 3d [id number] - [id number] Implanted:Qty : 1 on 04/15/2024 by Yann Jackson MD at OR [facility] N/A: Head ANNAMARIA : NEUROVASCULAR [id number] 12/16/2024 [id number] / / [id number] 6cm, Coil Swiftpac Implanted:Qty : 1 on 04/15/2024 by Yann Jackson MD at OR [facility] N/A: Head [employer] 12/16/2028 [id number] / / [id number] 45cm, Coil Swiftpac Implanted:Qty : 1 on 04/15/2024 by Yann Jackson MD at OR [facility] N/A: Head [employer] 12/16/2028 [id number] / / [id number] 60cm, Coil Swiftpac Implanted:Qty : 1 on 04/15/2024 by Yann Jackson MD at OR [facility] N/A: Head [employer] 11/02/2028 [id number] / / [id number] Coil Target 3d [id number] - [id number] Implanted:Qty : 1 on 04/15/2024 by Yann Jackson MD at OR [facility] N/A: Head ANNAMARIA : NEUROVASCULAR [id number] 12/24/2024 [id number] 60 / / [id number] Coil Target 360 Soft [id number] - [id number] Implanted:Qty : 1 on 04/15/2024 by Yann Jackson MD at OR [facility] N/A: Head ANNAMARIA : NEUROVASCULAR [id number] 06/23/2025 [id number] / / [id number] Coil Target 360 Ultra [id number] - [id number] Implanted:Qty : 1 on 04/15/2024 by Ynan Jackson MD at OR [facility] N/A: Head ANNAMARIA : NEUROVASCULAR [id number] 05/04/2026 [id number] / / [id number] Coil Target 360 Ultra [id number] - [id number] Implanted:Qty : 1 on 04/15/2024 by Yann Jackson MD at OR [facility] N/A: Head ANNAMARIA : NEUROVASCULAR [id number] 02/03/2025 [id number] / / [id number] 10cm, Coil Swiftpac Implanted:Qty : 2 on 04/15/2024 by Yann Jackson MD at OR [facility] N/A: Head [employer] 12/24/2028 [id number] / / [id number] 30cm, Coil Swiftpac Implanted:Qty : 1 on 04/15/2024 by Yann Jackson MD at OR [facility] N/A: Head [employer] 12/24/2028 [id number] / / [id number] 60cm, Coil Swiftpac Implanted:Qty : 1 on 04/15/2024 by Yann Jackson MD at OR [facility] N/A: Head [employer] 11/02/2028 [id number] / / [id number] 6cm, Coil [employer]pac Implanted:Qty : 1 on 04/15/2024 by Yann Jackson MD at OR [facility] N/A: Head [employer] 12/16/2028 [id number] / / [id number] Stent Vasc Hep [id number] - [id number] Implanted:Qty : 1 on 04/16/2024 by Samson Dennis MD at [place] [facility] Left: Iliac [employer] [id number] 12/29/2026 [id number] / [id number] / [id number] documented as of this encounter Visit Diagnoses Diagnosis Retroperitoneal hematoma- Primary Hemorrhage, unspecified documented in this encounter Additional Health Concerns Infection Onset Date Last Indicated Resolved Time Respiratory Rule-Out 04/21/2024 04/21/2024 024 9:20 PM EST COVID-19 Rule-Out 04/21/2024 04/21/2024 04/21/2024 9:20 PM EST documented as of this encounter Advance Directives * Full Code (Latest Code Status on File) Date Activated Date Inactivated Comments 04/22/2024 2:28 AM This order re flects the patients wishes and were consensually agreed [...] Discussed due to patient's condition Care Teams Construction Management Instructor Relationship Specialty Start Date End Date Bharati Wang MD [address] [place] [address] SAHIL Ballard [phone] PCP - General Family Medicine 10/02/21 documented as of this encounter
--- OUTSIDE RECORDS SUMMARY | 2024-07-03 23:06 | External Medical Summary | Summary of Care ---
Author Name Unknown Organization [facility] Address [address] [place] [address] Phone [phone] Care Team Providers Care Research And Evaluation Analyst Name Role Phone Bharati Wang MD Primary Care Provide r Encounter Details Date Type Department Care Team (Late st Contact Info) Description 04/24/2024 Orders Only Vascular Surg [facility] [address] [place] [address] Isiah Merritt CRNP [address] [place] [address] PVD (peripheral vascular disease) ([facility])* Allergies Active Allergy Reactions Criticality Noted Date Comments Ampicillin 09/23/2003 Hives/trouble breathing Azithromycin 09/24/2003 hives and angioedema Ranitidine 10/29/2002 rash documented as of this encounter (statuses as of 04/24/2024) Medications VITAMIN D 2000 UNITS PO CAPS [...] 5 04/18/2024 12:53 PM EST 4 Suspended documented as of this encounter (statuses as of 04/24/2024) Active Problems Problem Noted Date Diagnosed Date [...] as of this encounter (statuses as of 04/24/2024) Resolved Problems Problem Noted Date Diagnosed Date [...] fracture of humerus 08/07/2019 01/22/2024 Overview (08/10/2019): [facility] Bilateral sciatica 06/01/2019 4 Spasm of [...] as of this encounter (statuses as of 04/24/2024) Immunizations Name Administration Dates Next Due COVID-19 [...] No 04/22/2024 Are you (or your family) eobni eless or worried that you might be [...] Start Date Job End Date 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 Not on file Not on file documented as of this encounter Plan of Treatment Upcoming Encounters Date Type Department Care Team (Late st Contact Info) Description 04/29/2024 11:20 AM EST Office Visit Family Medicine [address] [phone] Bharati Wang MD [address] [place] [address] [place] [address] 05/11/2024 1:00 PM EST Office Visit Neurosurgery, [place] [address] [place] [address] Yann Jackson MD [address] [place] [address] 06/05/2024 1:20 PM EST Office Visit Family [address] [phone] Latha Shah CRNP [address] [place] [address] [place] [address] Scheduled Orders Name Type Priority Associated Diagnoses Orde r Schedule VASC ANKLE BRACHIAL INDICES WITHOUT PPG (PAD) Medical Imaging Routine PVD (peripheral vascular disease) (HCC) Ordered: 04/24/2024 Scheduled Procedures Name Priority Associated Diagnoses Date/Ti me ESOPHAGOGASTRODUODENOSCOPY ( EGD), FLEXIBLE, TRANSORAL, DIAGNOSTIC Recall Contreras esophagus Health Maintenance Due Date Last Done Comments Alpha-1 Antitrypsin 1953 Adult Wellness Visit 2002 DISCUSS TOBACCO CESSATION (REFER TO SMARTSET #4441) 08/01/2018 08/01/2017 (Discussed) DTap/Tdap Vaccines (2 - [...] this encounter Medical Devices Implanted Type Area Retail Store Clerk Device Identifier Shelf Expiration Date Model / Serial / Lot Coil Target 3d [id number] - [id number] Implanted:Qty : 1 on 04/15/2024 by Yann Jackson MD [place] [facility] Head ANNAMARIA : NEUROVASCULAR [id number] 12/16/2024 [id number] 60 / / [id number] 6cm, Coil Swiftpac Implanted:Qty : 1 on 04/15/2024 by Yann Jackson MD [place] [facility] [place]: Head [employer] 12/16/2028 [id number] / / [id number] 45cm, Coil Swiftpac Implanted:Qty : 1 on 04/15/2024 by Yann Jackson MD [place] [facility] [place] [place]: Head [employer] 12/16/2028 [id number] / / [id number] 60cm, Coil Swiftpac Implanted:Qty : 1 on 04/15/2024 by Yann Jackson MD [place] [facility] [place] [place]: Head [employer] 11/02/2028 [id number] / / [id number] Coil Target 3d 6feq8fy - [id number] Implanted:Qty : 1 on 04/15/2024 by Yann Jackson MD [place] [facility] [place] [place]: Head ANNAMARIA : NEUROVASCULAR [id number] 12/24/2024 [id number] 60 / / [id number] Coil Target 360 Soft 7uuk20jc - [id number] Implanted:Qty : 1 on 04/15/2024 by Yann Jackson MD [place] [facility] [place]: Head ANNAMARIA : NEUROVASCULAR [id number] 06/23/2025 [id number] / / [id number] Coil Target 360 Ultra 2eze07uz - [id number] Implanted:Qty : 1 on 04/15/2024 by Yann Jackson MD at [place] [facility] [place]: Head ANNAMARIA : NEUROVASCULAR [id number] 05/04/2026 [id number] 00 / / [id number] Coil Target 360 Ultra 6tat3yc - [id number] Implanted:Qty : 1 on 04/15/2024 by Yann Jackson MD [place] [facility] [place]: Head ANNAMARIA : NEUROVASCULAR [id number] 02/03/2025 [id number] 80 / / [id number] 10cm, Coil Swiftpac Implanted:Qty : 2 on 04/15/2024 by Yann Jackson MD at [place] [facility] [place]: Head [employer] 12/24/2028 [id number] / / [id number] 30cm, Coil Swiftpac Implanted:Qty : 1 on 04/15/2024 by Yann Jackson MD [place] [facility] [place]: Head [employer] 12/24/2028 [id number] / / [id number] 60cm, Coil Swiftpac Implanted:Qty : 1 on 04/15/2024 by Yann Jackson MD [place] [facility] [place]A: Head [employer] 11/02/2028 [id number] / / [id number] 6cm, Coil Swiftpac Implanted:Qty : 1 on 04/15/2024 by Yann Jackson MD [place] [facility] [place]/A: Head [employer] 12/16/2028 [id number] / / [id number] Stent Vasc Hep 8mmx7.4r338ao - [id number] Implanted:Qty : 1 on 04/16/2024 by Samson Dennis MD at [place] [facility] Left: Iliac [employer] [id number] 12/29/2026 [id number] / [id number] / [id number] documented as of this encounter Visit Diagnoses [...] to patient's condition Care Teams Research And Evaluation Analyst Relationship Specialty Start Date End Date Bharati Wang MD [address] [place] [address] [place] [phone] PCP - General Family Medicine 10/02/21 documented as of this encounter
--- OUTSIDE RECORDS SUMMARY | 2024-07-03 23:06 | External Medical Summary ---
Author Name Unknown Address Unknown Organization K01:[facility]ORY [facility] [place] [address] [facility] [address] Laboratory Report Ordering Provider Test Date Status JEROMY DONG 04/23/2024 07:59:00 Final Observation Date Value Abnormality Reference (Units ) Status BUN 04/23/2024 07:59:00 17 6-20 (mg/dL) Final Creatinine 04/23/2024 07:59:00 0.8 0.5-1.0 (mg/dL) Final Glomerular filtration rate/1.73 sq M.predicted [Volume Rate/Area] in Serum, Plasma or Blood by Creatinine-based formula (CKD-EPI) 04/23/2024 07:59:00 73 >=60 (mL/min) Final eGFR is calculated based on the CKD-EPI 2020 equation. Sodium 04/23/2024 07:59:00 140 135-146 (m mol/L) Final Potassium 04/23/2024 07:59:00 4.1 3.5-5.1 (m mol/L) Final Cl 04/23/2024 07:59:00 109 Above high normal 98 -107 (mmol/L) Final CO2 04/23/2024 07:59:00 22 22-32 (mmo l/L) Final Anion gap 04/23/2024 07:59:00 9 7-15 (mmol /L) Final Glucose 04/23/2024 07:59:00 91 70-120 (mg /dL) Final Albumin 04/23/2024 07:59:00 2.9 Below low normal 3.8 -5.0 (g/dL) Final AST (Aspartate aminotransferase) 04/23/2024 07:59:00 12 10-35 (U/L) Fin al Alk Phos 04/23/2024 07:59:00 57 35-130 (U/ L) Final Bilirubin, Total 04/23/2024 07:59:00 1.0 <=1 .2 (mg/dL) Final Calcium 04/23/2024 07:59:00 8.5 8.4-10.2 ( mg/dL) Final Protein 04/23/2024 07:59:00 5.5 Below low normal 6.0 -8.3 (g/dL) Final ALT (Alanine aminotransferase) 04/23/2024 07:59:00 11 10-35 (U/L) Nathen brunner Performing Location LAB[facility]ORY [facility] - [address] [facility] [address]
--- OUTSIDE RECORDS SUMMARY | 2024-07-03 23:06 | External Medical Summary | Summary of Care ---
Author Name Unknown Organization [facility] Address [address] [place] [address] Phone [phone] Care Team Providers Care Guidance Services Coordinator Name Role Phone Bharati Wang MD Primary Care Provide r Encounter Details Date Type Department Care Team (Latest Contact Info) Description 04/21/2024 2:50 PM EST - 04/21/2024 6:31 PM EST Hospital Encounter Radiology Film File [address] [place] [address] Arrived Discharge Disposition: Home - [...] at bedtime. 30 Tablet 11 3 Suspended Additional Information Patient not taking.Informant: Patient, Reported on 04/20/2024 Fluticasone Propionate 50 MCG/ACT Nasal Suspension (Flonase)Indic [...] Tablet 1 04/18/2024 12:53 PM EST 4 024 Suspended Clopidogrel Bisulfate 75 MG Oral Tablet (pLAVix) Take 1 Tablet by mouth in the morning. 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 Not on file Not on file Not on file documented as of this encounter Plan of Treatment Upcoming Encounters Date Type Department Care Team (Late st Contact Info) Description 04/29/2024 11:20 AM EST Office Visit Family [address] [phone] Bharati Wang MD [address] [place] [address] [place] [address] 05/11/2024 1:00 PM EST Office Visit [facility] [address] [place] [address] Yann Jackson MD [address] [place] [address] 06/05/2024 1:20 PM EST Office Visit [address] [phone] Latha Shah [address] [place] [address] Scheduled Procedures Name Priority Associated Diagnoses Date/Ti [...] this encounter Medical Devices Implanted Type Area Radio Maintainer Device Identifier Shelf Expiration Date Model / Serial / Lot Coil Target 3d 1ykq1wj - [id number] Implanted:Qty : 1 on 04/15/2024 by Yann Jackson MD at OR [facility] [place] N/A: Head ANNAMARIA : NEUROVASCULAR [id number] 12/16/2024 [id number] / / [id number] 6cm, Coil Swiftpac Implanted:Qty : 1 on 04/15/2024 by Yann Jackson MD at OR [facility] [place] N/A: Head [employer] 12/16/2028 [id number] / / [id number] 45cm, Coil Swiftpac Implanted:Qty : 1 on 04/15/2024 by Yann Jackson MD at OR [facility] [place] N/A: Head [employer] 12/16/2028 [id number] / / [id number] 60cm, Coil Swiftpac Implanted:Qty : 1 on 04/15/2024 by Yann Jackson MD at OR [facility] [place] N/A: Head [employer] 11/02/2028 [id number] / / [id number] Coil Target 3d 2pvk2ac - [id number] Implanted:Qty : 1 on 04/15/2024 by Yann Jackson MD at OR [facility] [place] N/A: Head ANNAMARIA : NEUROVASCULAR [id number] 12/24/2024 [id number] 60 / / [id number] Coil Target 360 Soft 3qxw44ts - [id number] Implanted:Qty : 1 on 04/15/2024 by Yann Jackson MD at OR [facility] [place] N/A: Head ANNAMARIA : NEUROVASCULAR [id number] 06/23/2025 [id number] 00 / / [id number] Coil Target 360 Ultra 6gtk62ik - [id number] Implanted:Qty : 1 on 04/15/2024 by Yann Jackson MD at OR [facility] [place] N/A: Head ANNAMARIA : NEUROVASCULAR [id number] 05/04/2026 [id number] 00 / / [id number] Coil Target 360 Ultra 7wgm9wt - [id number] Implanted:Qty : 1 on 04/15/2024 by Yann Jackson MD at OR [facility] [place] N/A: Head ANNAMARIA : NEUROVASCULAR [id number] 02/03/2025 [id number] 80 / / [id number] 10cm, Coil Swiftpac Implanted:Qty : 2 on 04/15/2024 by Yann Jackson MD at OR [facility] [place] N/A: Head [employer] 12/24/2028 [id number] / / [id number] 30cm, Coil Swiftpac Implanted:Qty : 1 on 04/15/2024 by Yann Jackson MD at OR [facility] [place] N/A: Head [employer] 12/24/2028 [id number] / / [id number] 60cm, Coil Swiftpac Implanted:Qty : 1 on 04/15/2024 by Yann Jackson MD at OR [facility] [place] N/A: Head [employer] 11/02/2028 [id number] / / [id number] 6cm, Coil Swiftpac Implanted:Qty : 1 on 04/15/2024 by Yann Jackson MD at OR [facility] [place] N/A: Head [employer] 12/16/2028 [id number] / / [id number] Stent Vasc Hep 8mmx7.7q985sw - [id number] Implanted:Qty : 1 on 04/16/2024 by Samson Dennis MD at OR [facility] [place] Left: Iliac [employer] [id number] 12/29/2026 [id number] 2A / [id number] / [id number] documented as of this encounter Procedures Procedure Name Priority Date/Time Associated Diagnosis Comments RADIOLOGY EXAM - CT (IMAGES ONLY, NO REPORT) Routine 04/21/2024 2:50 PM EST documented in this encounter Results * RADIOLOGY EXAM - CT (IMAGES ONLY, NO REPORT) (04/21/2024 2:50 PM EST) 04/21/2024 2:49 PM EST Narrative Scheduling, Silent - 04/21/2024 10:10 PM EST This is an imaging study not interpreted or resulted by a [facility] contracted radiologist. Lawrence Rainey DO RAD CT Final Result documented in this encounter Advance [...] Discussed due to patient's condition Care Teams Guidance Services Coordinator Relationship Specialty Start Date End Date Bharati Wang MD [address] [place] [address] [place] [address] PCP - General Family Medicine 10/02/21 documented as of this encounter
--- OUTSIDE RECORDS SUMMARY | 2024-07-03 23:06 | External Medical Summary ---
Author Name Unknown Address Unknown Organization K01:[facility] [place] [facility] [address] [facility] [address] [place] [address] Laboratory Report Ordering Provider Test Date Status JEROMY DONG 04/23/2024 07:59:00 Final Observation Date Value Abnormality Reference (Units ) Status WBC, Total 04/23/2024 07:59:00 6.87 4.00-10.80 (K/uL) Final RBC 04/23/2024 07:59:00 2.50 3.85-5.15 (M/uL) Final Hemoglobin 04/23/2024 07:59:00 7.5 Below low normal 12.0-15.3 (g/dL) Final HCT 04/23/2024 07:59:00 24.1 Below low normal 36.0-45.2 (%) Final MCV 04/23/2024 07:59:00 96.4 81.5-97.5 (fL) Final MCH 04/23/2024 07:59:00 30.0 27.0-34.0 (pg) Final MCHC 04/23/2024 07:59:00 31.1 32.0-36.0 (g/dL) Final RDW 04/23/2024 07:59:00 15.9 11.5-15.5 (%) Final Platelets 04/23/2024 07:59:00 194 140-400 (K/uL) Final MPV 04/23/2024 07:59:00 10.6 6.6-11.1 (fL) Final Nucleated erythrocytes/100 leukocytes [Ratio] in Blood by Automated count 04/23/2024 07:59:00 1 Above high normal <=0 (/100 WBCs) Final Performing Location [facility] [place] [address] [place] [address]
--- OUTSIDE RECORDS SUMMARY | 2024-07-03 23:06 | External Medical Summary ---
Author Name Unknown Address Unknown Organization K01:LABORATORY [facility] [address] [place] [address] Laboratory Report Ordering Provider Test Date Status JEROMY DONG 04/24/2024 07:47:00 Final Observation Date Value Abnormality Reference (Units ) Status Magnesium 04/24/2024 07:47:00 2.0 1.5-2.6 (m g/dL) Final Performing Location LABORATORY [facility] - [address] [place] [address]
--- OUTSIDE RECORDS SUMMARY | 2024-07-03 23:06 | External Medical Summary ---
Author Name Unknown Address Unknown Organization K01:LABORATORY [facility] - [address] [place] [address] Laboratory Report Ordering Provider Test Date Status JEROMY DONG 04/23/2024 07:59:00 Final Observation Date Value Abnormality Reference (Units ) Status Phosphate 04/23/2024 07:59:00 2.5 2.5-4.8 (m g/dL) Final Performing Location LABORATORY [facility] - [address] [place] [address]
--- OUTSIDE RECORDS SUMMARY | 2024-07-03 23:06 | External Medical Summary ---
Author Name Unknown Address Unknown Organization K01:[facility]ORY [facility] [place] [address] [facility] [address] Laboratory Report Ordering Provider Test Date Status JEROMY DONG 04/24/2024 07:47:00 Final Observation Date Value Abnormality Reference (Units ) Status BUN 04/24/2024 07:47:00 17 6-20 (mg/dL) Final Creatinine 04/24/2024 07:47:00 0.8 0.5-1.0 (mg/dL) Final Glomerular filtration rate/1.73 sq M.predicted [Volume Rate/Area] in Serum, Plasma or Blood by Creatinine-based formula (CKD-EPI) 04/24/2024 07:47:00 68 >=60 (mL/min) Final eGFR is calculated based on the CKD-EPI 2020 equation. Sodium 04/24/2024 07:47:00 138 135-146 (m mol/L) Final Potassium 04/24/2024 07:47:00 3.9 3.5-5.1 (m mol/L) Final Cl 04/24/2024 07:47:00 107 98-107 (mm ol/L) Final CO2 04/24/2024 07:47:00 22 22-32 (mmo l/L) Final Anion gap 04/24/2024 07:47:00 9 7-15 (mmol /L) Final Glucose 04/24/2024 07:47:00 102 70-120 (mg /dL) Final Albumin 04/24/2024 07:47:00 3.1 Below low normal 3.8 -5.0 (g/dL) Final AST (Aspartate aminotransferase) 04/24/2024 07:47:00 16 10-35 (U/L) Fin al Alk Phos 04/24/2024 07:47:00 63 35-130 (U/ L) Final Bilirubin, Total 04/24/2024 07:47:00 1.3 Above high no rmal <=1.2 (mg/dL) Final Calcium 04/24/2024 07:47:00 8.6 8.4-10.2 ( mg/dL) Final Protein 04/24/2024 07:47:00 5.7 Below low normal 6.0 -8.3 (g/dL) Final ALT (Alanine aminotransferase) 04/24/2024 07:47:00 17 10-35 (U/L) Nathen brunner Performing Location LAB[facility]ORY [facility] [place] [address] [facility] [address]
--- OUTSIDE RECORDS SUMMARY | 2024-07-03 23:07 | External Medical Summary ---
Author Name Unknown Address Unknown Organization K01:LABORATORY [facility] [place] - 100 [facility] [place] [address] Laboratory Report Ordering Provider Test Date Status DELVIS KOENIG 04/21/2024 18:45:00 Final Observation Date Value Abnormality Reference (Units ) Status BUN 04/21/2024 18:45:00 16 6-20 (mg/dL) Final Creatinine 04/21/2024 18:45:00 0.9 0.5-1.0 (mg/dL) Final Glomerular filtration rate/1.73 sq M.predicted [Volume Rate/Area] in Serum, Plasma or Blood by Creatinine-based formula (CKD-EPI) 04/21/2024 18:45:00 64 >=60 (mL/min) Final eGFR is calculated based on the CKD-EPI 2020 equation. Sodium 04/21/2024 18:45:00 138 135-146 (m mol/L) Final Potassium 04/21/2024 18:45:00 4.4 3.5-5.1 (m mol/L) Final Cl 04/21/2024 18:45:00 107 98-107 (mm ol/L) Final CO2 04/21/2024 18:45:00 22 22-32 (mmo l/L) Final Anion gap 04/21/2024 18:45:00 9 7-15 (mmol /L) Final Glucose 04/21/2024 18:45:00 125 Above high normal 70 -120 (mg/dL) Final Albumin 04/21/2024 18:45:00 3.1 Below low normal 3.8 -5.0 (g/dL) Final AST (Aspartate aminotransferase) 04/21/2024 18:45:00 6 Below low normal 10-35 (U/L) Final Alk Phos 04/21/2024 18:45:00 55 35-130 (U/ L) Final Bilirubin, Total 04/21/2024 18:45:00 1.4 Above high no rmal <=1.2 (mg/dL) Final Calcium 04/21/2024 18:45:00 8.1 Below low normal 8.4 -10.2 (mg/dL) Final Protein 04/21/2024 18:45:00 5.5 Below low normal 6.0 -8.3 (g/dL) Final ALT (Alanine aminotransferase) 04/21/2024 18:45:00 9 Below low normal 10-35 (U/L) Final Performing Location LABORATORY [facility] [place] - [address] [facility] [address]
--- OUTSIDE RECORDS SUMMARY | 2024-07-03 23:07 | External Medical Summary ---
Author Name Unknown Address Unknown Organization K01:[facility] [place] [address] [facility] [place] [address] Laboratory Report Ordering Provider Test Date Status DELVIS KOENIG 04/21/2024 18:46:00 Final Observation Date Value Abnormality Reference (Units ) Status SYNC LEUKOCYTES IN BLOOD BY AUTOMATED COUNT 04/21/2024 18:46:00 18.97 Above high normal 4.00-10.80 (K/uL) Final Segs 04/21/2024 18:46:00 80.8 Above high normal 40.0-75.0 (%) Final Lymphs % 04/21/2024 18:46:00 7.5 Below low normal 18.0-42.0 (%) Final Monos 04/21/2024 18:46:00 10.3 1.0-11.0 (%) Final Eosinophils 04/21/2024 18:46:00 0.1 0.0-6.0 (%) Final Basos 04/21/2024 18:46:00 0.2 0.0-2.0 (%) Final Immature Granulocyte, Percent 04/21/2024 18:46:00 1.1 0.0-2.0 (%) Final Absolute Segs 04/21/2024 18:46:00 15.33 Above high normal 1.80-7.70 (K/uL) Final Lymphs, absolute 04/21/2024 18:46:00 1.43 1.00-4.80 (K/ul) Final Monos, Abs 04/21/2024 18:46:00 1.95 Above high normal 0.00-1.10 (K/uL) Final Eos, Abs 04/21/2024 18:46:00 0.02 0.00-0.70 (K/uL) Final Basos, Abs 04/21/2024 18:46:00 0.03 0.00-0.20 (K/uL) Final Immature Granulocytes, Number 04/21/2024 18:46:00 0.21 Above high normal 0.00-0.20 (K/uL) Final Performing Location [facility] [place] [facility] [address] [facility] [address]
--- OUTSIDE RECORDS SUMMARY | 2024-07-03 23:07 | External Medical Summary ---
Author Name Unknown Address Unknown Organization K01:LABORATORY [facility] - [address] [place] [address] Laboratory Report Ordering Provider Test Date Status LULY ORTA 04/21/2024 18:45:00 Final Observation Date Value Abnormality Reference (Units ) Status CK 04/21/2024 18:45:00 19 Below low normal 26- 192 (U/L) Final Performing Location LABORATORY [facility] - [address] [place] [address]
--- OUTSIDE RECORDS SUMMARY | 2024-07-03 23:07 | External Medical Summary ---
Author Name Unknown Address Unknown Organization K01:[facility]ATORY [facility] - [address] [place] [address] Laboratory Report Ordering Provider Test Date Status DELVIS KOENIG 04/21/2024 18:46:00 Final Observation Date Value Abnormality Reference (Units ) Status Lactic Acid 04/21/2024 18:46:00 1.3 0.4-2.0 (mmol/L) Final Performing Location LABORATORY [facility] - [address] [place] [id number]
--- OUTSIDE RECORDS SUMMARY | 2024-07-03 23:07 | External Medical Summary ---
Author Name Unknown Address Unknown Organization K01:[facility]ORY [facility] - [address] [place] [address] Laboratory Report Ordering Provider Test Date Status ARYADELVIS 04/21/2024 18:45:00 Final Warfarin Therapy
INR: 2 .0-3.0 conventional anticoagulation
INR: 2.5- 3.5 high intensity anticoagulation Observation Date Value Abnormality Reference (Units ) Status PT 04/21/2024 18:45:00 18.3 Above high normal 11 .6-15.2 (seconds) Final INR 04/21/2024 18:45:00 1.5 Above high normal 0. 8-1.2 Final Performing Location LABORATORY [facility] - [address] [place] [address]
--- OUTSIDE RECORDS SUMMARY | 2024-07-03 23:07 | External Medical Summary | Summary of Care ---
Author Name Unknown Organization [facility] Address [address] [place] [address] Phone [phone] Care Team Providers Care Mushroom Grower Name Role Phone Bharati Wang MD Primary Care Provide r Encounter Details Date Type Department Care Team (Late st Contact Info) Description 04/21/2024 Orders Only [facility] Phys[facility] [address] [place] [address] Lawrence Rainey, DO [address] [place] [address] Allergies Active Allergy Reactions Criticality Noted Date Comments Ampicillin 09/23/2003 Hives/trouble breathing Azithromycin 09/24/2003 hives and angioedema Ranitidine 10/29/2002 rash documented as of this encounter (statuses as of 04/21/2024) Medications VITAMIN D 2000 UNITS PO CAPS [...] at bedtime. 30 Tablet 11 3 Active Additional Information Patient not taking.Informant: Patient, Reported on 04/20/2024 Fluticasone Propionate 50 MCG/ACT Nasal Suspension (Flonase)Indica tions:Nasal congestion USE ONE SPRAY IN each nostril IN THE MORNING AND in the evening 16 g 4 Active Omeprazole 40 MG Oral Capsule Delayed Release (PriLOSEC)Indic ations:Contreras' s esophagus with dysplasia TAKE ONE CAPSULE BY MOUTH EVERY MORNING 100 Capsule 3 4 Active Lisinopril 40 MG Oral TabletIndicatio ns:HTN, goal below 150/90 TAKE ONE TABLET BY MOUTH IN THE MORNING 100 Tablet 3 4 Active amLODIPine Besylate 5 MG [...] 5 04/18/2024 12:53 PM EST 4 Active dexAMETHasone 2 MG Oral Tablet (Decadron) Take 2 Tablets by mouth 2 times a day with morning and evening meals for 1 day, THEN 1 Tablet 2 times a day with morning and evening meals for 1 day, THEN 1 Tablet daily with breakfast for 1 day. 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 Not on file Not on file Not on file documented as of this encounter Plan of Treatment Upcoming Encounters Date Type Department Care Team (Late st Contact Info) Description 04/29/2024 11:20 AM EST Office Visit Family [address] [phone] Bharati Wang MD [address] [place] [address] [place] [address] 05/11/2024 1:00 PM EST Office Visit [facility] [place] [address] [place] [address] Yann Jackson MD [address] [place] [phone] 06/05/2024 1:20 PM EST Office Visit Family [address] [phone] Latha Shah CRNP [address] [place] [address] [place] [address] Scheduled Procedures Name Priority Associated Diagnoses Date/Ti [...] this encounter Medical Devices Implanted Type Area Direct Mail Marketer Device Identifier Shelf Expiration Date Model / Serial / Lot Coil Target 3d 8onb3fs - [id number] Implanted:Qty : 1 on 04/15/2024 by Yann Jackson MD at OR [facility] N/A: Head ANNAMARIA : NEUROVASCULAR [id number] 12/16/2024 [id number] 60 / / [id number] 6cm, Coil Swiftpac Implanted:Qty : 1 on 04/15/2024 by Yann Jackson MD at OR [facility] N/A: Head [employer] 12/16/2028 [id number] / / [id number] 45cm, Coil Swiftpac Implanted:Qty : 1 on 04/15/2024 by Yann Jackson MD at OR [facility] N/A: Head [employer] 12/16/2028 [id number] / / [id number] 60cm, Coil Swiftpac Implanted:Qty : 1 on 04/15/2024 by Yann Jackson MD at OR [facility] N/A: Head [employer] 11/02/2028 [id number] / / [id number] Coil Target 3d 6rpn9yr - [id number] Implanted:Qty : 1 on 04/15/2024 by Yann Jackson MD at OR [facility] N/A: Head ANNAMARIA : NEUROVASCULAR [id number] 12/24/2024 [id number] 60 / / [id number] Coil Target 360 Soft 4hyd55zw - [id number] Implanted:Qty : 1 on 04/15/2024 by Yann Jackson MD at OR [facility] N/A: Head ANNAMARIA : NEUROVASCULAR [id number] 06/23/2025 [id number] 00 / / [id number] Coil Target 360 Ultra 8rdw54on - [id number] Implanted:Qty : 1 on 04/15/2024 by Yann Jackson MD at OR [facility] N/A: Head ANNAMARIA : NEUROVASCULAR [id number] 05/04/2026 [id number] 00 / / [id number] Coil Target 360 Ultra 1nkl3cb - [id number] Implanted:Qty : 1 on 04/15/2024 by Yann Jackson MD at OR [facility] N/A: Head ANNAMARIA : NEUROVASCULAR [id number] 02/03/2025 [id number] 80 / / [id number] 10cm, Coil Swiftpac Implanted:Qty : 2 on 04/15/2024 by Yann Jackson MD at OR [facility] N/A: Head [employer] 12/24/2028 [id number] / / [id number] 30cm, Coil Swiftpac Implanted:Qty : 1 on 04/15/2024 by Yann Jackson MD at OR [facility] N/A: Head [employer] 12/24/2028 [id number] / / [id number] 60cm, Coil Swiftpac Implanted:Qty : 1 on 04/15/2024 by Yann Jackson MD at OR [facility] N/A: Head [employer] 11/02/2028 [id number] / / [id number] 6cm, Coil Swiftpac Implanted:Qty : 1 on 04/15/2024 by Yann Jackson MD at OR [facility] N/A: Head [employer] 12/16/2028 [id number] / / [id number] Stent Vasc Hep 8mmx7.0p128ki - [id number] Implanted:Qty : 1 on 04/16/2024 by Samson Dennis MD at OR [facility] Left: Iliac [employer] [id number] 12/29/2026 [id number] 2A / [id number] / [id number] documented as of this encounter Procedures Procedure [...] study not interpreted or resulted by a [employer] or [employer] contracted radiologist. us Lawrence Rainey DO RAD CT Final Result documented in this encounter Additional Health Concerns Infection Onset Date Last Indicated Resolved Time Respiratory Rule-Out 04/21/2024 04/21/2024 024 9:20 PM EST COVID-19 Rule-Out 04/21/2024 04/21/2024 04/21/2024 9:20 PM EST documented as of this encounter Advance Directives * Full Code (Latest Code Status on File) Date Activated Date Inactivated Comments 04/15/2024 6:20 [...] Discussed due to patient's condition Care Teams Mushroom Grower Relationship Specialty Start Date End Date Bharati Wang MD [address] [place] [address] [place] [address] PCP - General Family Medicine 10/02/21 documented as of this encounter
--- OUTSIDE RECORDS SUMMARY | 2024-07-03 23:07 | External Medical Summary ---
Author Name Unknown Address Unknown Organization K01[place] [place] [address] [place] [address] Laboratory Report Ordering Provider Test Date Status AUGIE ORTADelores 04/22/2024 05:30:00 Final Exclude Heart Failure: <300 pg/mL
Diagnose Heart Failure:
Age <50 yr: >450 pg/mL
50-75 yr: >900 pg/mL
>75 yr: >1800 pg/mL
GFR is 30-59 mL/min: >1200 pg/mL or Age- adjusted values
GFR <30 mL/min: do not use, not reliable

Prognostic threshold: 1000 pg/mL Observation Date Value Abnormality Reference (Units ) Status BNP, Pro-hormone 04/22/2024 05:30:00 938 Above high no rmal <300 (pg/mL) Final Performing Location [facility] [address] [place] [address]
--- OUTSIDE RECORDS SUMMARY | 2024-07-03 23:07 | External Medical Summary | Summary of Care ---
Author Name Unknown Organization [facility] Address [address] [place] [address] Phone [phone] Care Team Providers Care Head Holder Name Role Phone Bharati Wang MD Primary Care Provide r Reason for Visit * Reason Comments [facility] Encounter Details Date Type Department Care Team (Latest Contact Info) Description 04/21/2024 5:00 PM EST Documentation [facility], [place] [address] [place] [phone] 2, Life back[facility]ch [address], [place] [phone] Retroperitoneal hematoma* Allergies Active Allergy Reactions Criticality [...] fracture of humerus 08/07/2019 01/22/2024 Overview (08/10/2019): [facility] [facility] Bilateral sciatica 06/01/2019 4 Spasm of [...] Job Start Date Job End Date 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 Not on file Not on file Not on file documented as of this encounter Progress Notes * West Johns RN - 04/21/2024 8:42 PM EST MEDICARE AMBULANCE INFORMATION SHEET Patient Admitted as an Inpatient: yes Certifying Physician/Ordering Service:[facility] ED Physician - Chris Dodd M.D. [facility] [address] [place] [address] Point of Stone Lathe Operator (zip code required): Hospital - [facility] - [address]; [place] [address] Destination (Specify Name/Address): [facility] - [address]; [place] [address] Patient transported to nearest facility (capable of mgmt for Pt's condition): YES Total number of Loaded Miles: 66.6 miles Mode of Transport: Air Completed by: West Johns RN documented in this encounter Plan of Treatment Upcoming Encounters Date Type Department Care Team (Late st Contact Info) Description 04/29/2024 11:20 AM EST Office Visit Family Medicine [address] [place] [phone] Bharati Wang MD [address] [place] [address] [place] [address] 05/11/2024 1:00 PM EST Office Visit Neurosurgery, [place] [address] [place] [address] Yann Jackson MD [address] [facility] [place] [phone] 06/05/2024 1:20 PM EST Office Visit Family [address] [place] [phone] Latha Shah [address] [place] [address] Scheduled Procedures Name Priority Associated Diagnoses Date/Ti [...] this encounter Medical Devices Implanted Type Area Information Technology Officer Device Identifier Shelf Expiration Date Model / Serial / Lot Coil Target 3d 2fjp8di - [id number] Implanted:Qty : 1 on 04/15/2024 by Yann Jackson MD at OR [facility] N/A: Head ANNAMARIA : NEUROVASCULAR [id number] 12/16/2024 [id number] 60 / / [id number] 6cm, Coil Swiftpac Implanted:Qty : 1 on 04/15/2024 by Yann Jackson MD at OR [facility] N/A: Head [employer] 12/16/2028 [id number] / / [id number] 45cm, Coil Swiftpac Implanted:Qty : 1 on 04/15/2024 by Yann Jackson MD at OR [facility] N/A: Head [employer] 12/16/2028 [id number] / / [id number] 60cm, Coil Swiftpac Implanted:Qty : 1 on 04/15/2024 by Yann Jackson MD at OR [facility] N/A: Head [employer] 11/02/2028 [id number] / / [id number] Coil Target 3d [id number] - [id number] Implanted:Qty : 1 on 04/15/2024 by Yann Jackson MD at OR [facility] N/A: Head ANNAMARIA : NEUROVASCULAR [id number] 12/24/2024 [id number] 60 / / [id number] Coil Target 360 Soft 3jub29mt - [id number] Implanted:Qty : 1 on 04/15/2024 by Yann Jackson MD at OR [facility] N/A: Head ANNAMARIA : NEUROVASCULAR [id number] 06/23/2025 [id number] 00 / / [id number] Coil Target 360 Ultra 1bau17tb - [id number] Implanted:Qty : 1 on 04/15/2024 by Yann Jackson MD at OR [facility] N/A: Head ANNAMARIA : NEUROVASCULAR [id number] 05/04/2026 [id number] 00 / / [id number] Coil Target 360 Ultra 6edm9co - [id number] Implanted:Qty : 1 on 04/15/2024 by Yann Jackson MD at OR [facility] N/A: Head ANNAMARIA : NEUROVASCULAR [id number] 02/03/2025 [id number] 80 / / [id number] 10cm, Coil Swiftpac Implanted:Qty : 2 on 04/15/2024 by Yann Jackson MD at OR [facility] N/A: Head [employer] 12/24/2028 [id number] / / [id number] 30cm, Coil Swiftpac Implanted:Qty : 1 on 04/15/2024 by Yann Jackson MD at OR [facility] N/A: Head [employer] 12/24/2028 [id number] / / [id number] 60cm, Coil Swiftpac Implanted:Qty : 1 on 04/15/2024 by Yann Jackson MD at OR [facility] N/A: Head [employer] 11/02/2028 [id number] / / [id number] 6cm, Coil Swiftpac Implanted:Qty : 1 on 04/15/2024 by Yann Jackson MD at OR [facility] N/A: Head [employer] 12/16/2028 [id number] / / [id number] Stent Vasc Hep 8mmx7.4s175cp - [id number] Implanted:Qty : 1 on 04/16/2024 by Samson Dennis MD at OR [facility] Left: Iliac [employer] [id number] 12/29/2026 [id number] 2A / [id number] / [id number] documented as of this encounter Visit Diagnoses Diagnosis Retroperitoneal hematoma- Primary Hemorrhage, unspecified documented in this encounter Advance Directives [...] Discussed due to patient's condition Care Teams Head Holder Relationship Specialty Start Date End Date Bharati Wang MD [address] [place] [address] [place] [address] PCP - General Family Medicine 10/02/21 documented as of this encounter
--- OUTSIDE RECORDS SUMMARY | 2024-07-03 23:07 | External Medical Summary ---
Author Name Unknown Address Unknown Organization K01[place] [address] [facility] [address] Laboratory Report Ordering Provider Test Date Status MERCEDES HUNT 04/21/2024 20:28:02 Final Observation Date Value Abnormality Reference (Units ) Status Color of Urine by Auto 04/21/2024 20:28:02 Yellow Colorless, Light Yellow, Yellow, Dark Yellow Final Clarity, Urine 04/21/2024 20:28:02 Cloudy Abnormal Clear Final Glucose [Mass/volume] in Urine by Automated test strip 04/21/2024 20:28:02 Negative Negative (mg/dL) Final Bilirubin.total [Presence] in Urine by Automated test strip 04/21/2024 20:28:02 Negative Negative Final Ketones [Mass/volume] in Urine by Automated test strip 04/21/2024 20:28:02 Negative Negative (mg/dL) Final Specific gravity, Urine 04/21/2024 20:28:02 1.040 Above high normal 1.003-1.030 Final Hemoglobin [Presence] in Urine by Automated test strip 04/21/2024 20:28:02 Large Abnormal Negative Final pH, Urine 04/21/2024 20:28:02 6.5 5.0-7.5 (Units) Final Protein [Mass/volume] in Urine by Automated test strip 04/21/2024 20:28:02 100 Abnormal Negative (mg/dL) Final Urobilinogen [Mass/volume] in Urine by Automated test strip 04/21/2024 20:28:02 Normal Normal (mg/dL) Final Nitrite [Presence] in Urine by Automated test strip 04/21/2024 20:28:02 Positive Abnormal Negative Final Leukocyte esterase [Presence] in Urine by Automated test strip 04/21/2024 20:28:02 Large Abnormal Negative Final RBC, Urine 04/21/2024 20:28:02 50+ Abnormal 0-2 (/HPF) Final WBC, Urine 04/21/2024 20:28:02 50+ Abnormal 0-2 (/HPF) Final Bacteria [#/area] in Urine sediment by Microscopy high power field 04/21/2024 20:28:02 151-200 Abnormal 0-25 (/HPF) Final Leukocyte clumps [#/area] in Urine sediment by Microscopy high power field 04/21/2024 20:28:02 Present Abnormal None (/HPF) Final CULTURE, URINE - [facility] 04/21/2024 20:28:02 Final Quantitative urine culture t o be performed Performing Location [facility] [place] [facility] [address] [facility] [address] [facility] [address]
--- OUTSIDE RECORDS SUMMARY | 2024-07-03 23:07 | External Medical Summary | Summary of Care ---
Author Name Unknown Organization [facility] Address [address] [place] [address] Phone [phone] Care Team Providers Care Software Designer Name Role Phone Bharati Wang MD Primary Care Provide r Encounter Details Date Type Department Care Team (Late st Contact Info) Description 04/22/2024 Population Health External Data Unspecified Department Allergies [...] fracture of humerus 08/07/2019 01/22/2024 Overview (08/10/2019): [place] [facility] Bilateral sciatica 06/01/2019 Spasm of muscle [...] 30 Mcg, IM, 12 yrs and above ([employer]) 02/27/2022 Pneumococcal Conjugate Vacc, 13 Valent (Prevnar) [...] Job Start Date Job End Date 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 Not on file Not on file Not on file documented as of this encounter Plan of Treatment Upcoming Encounters Date Type Department Care Team (Late st Contact Info) Description 04/29/2024 11:20 AM EST Office Visit Family Medicine [address] [phone] Bharati Wang MD [address] [place] [address] [place] [address] 05/11/2024 1:00 PM EST Office Visit [facility] [address] [place] [address] Yann Jackson MD [address] [place] [address] 06/05/2024 1:20 PM EST Office Visit [address] [phone] Latha Shah CRNP [address] [place] [address] [place] [address] Scheduled Procedures Name Priority Associated Diagnoses Date/Ti [...] this encounter Medical Devices Implanted Type Area Sql Architect Device Identifier Shelf Expiration Date Model / Serial / Lot Coil Target 3d 1qzx6jk - [id number] Implanted:Qty : 1 on 04/15/2024 by Yann Jackson MD [place] [facility] [place]/A: Head ANNAMARIA : NEUROVASCULAR [id number] 12/16/2024 [id number] 60 / / [id number] 6cm, Coil [employer] Implanted:Qty : 1 on 04/15/2024 by Yann Jackson MD at [place] [facility] N/A: Head [employer] 12/16/2028 [id number] / / [id number] 45cm, Coil Swiftpac Implanted:Qty : 1 on 04/15/2024 by Yann Jackson MD at [place] [facility] N/A: Head [employer] 12/16/2028 [id number] / / [id number] 60cm, Coil Swiftpac Implanted:Qty : 1 on 04/15/2024 by Yann Jackson MD at [place] [facility] N/A: Head [employer] 11/02/2028 [id number] / / [id number] Coil Target 3d 4aok0vu - [id number] Implanted:Qty : 1 on 04/15/2024 by Yann Jackson MD at [place] [facility] N/A: Head ANNAMARIA : NEUROVASCULAR [id number] 12/24/2024 [id number] 60 / / [id number] Coil Target 360 Soft 0ybl13oj - [id number] Implanted:Qty : 1 on 04/15/2024 by Yann Jackson MD at [place] [facility] N/A: Head ANNAMARIA : NEUROVASCULAR [id number] 06/23/2025 [id number] 00 / / [id number] Coil Target 360 Ultra 5cun26yc - [id number] Implanted:Qty : 1 on 04/15/2024 by Yann Jackson MD at [place] [facility] N/A: Head ANNAMARIA : NEUROVASCULAR [id number] 05/04/2026 [id number] 00 / / [id number] Coil Target 360 Ultra 1ygm8yy - [id number] Implanted:Qty : 1 on 04/15/2024 by Yann Jackson MD at [place] [facility] N/A: Head ANNAMARIA : NEUROVASCULAR [id number] 02/03/2025 [id number] 80 / / [id number] 10cm, Coil Swiftpac Implanted:Qty : 2 on 04/15/2024 by Yann Jackson MD at [place] [facility] N/A: Head [employer] 12/24/2028 [id number] / / [id number] 30cm, Coil Swiftpac Implanted:Qty : 1 on 04/15/2024 by Yann Jackson MD at [place] [facility] N/A: Head [employer] 12/24/2028 [id number] / / [id number] 60cm, Coil Swiftpac Implanted:Qty : 1 on 04/15/2024 by Yann Jackson MD at [place] [facility] N/A: Head [employer] 11/02/2028 [id number] / / [id number] 6cm, Coil Swiftpac Implanted:Qty : 1 on 04/15/2024 by Yann Jackson MD at [place] [facility] N/A: Head [employer] 12/16/2028 [id number] / / [id number] Stent Vasc Hep 8mmx7.4l079fa - [id number] Implanted:Qty : 1 on 04/16/2024 by Samson Dennis MD at [place] [facility] Left: Iliac [employer] [id number] 12/29/2026 [id number] / [id number] documented as of this encounter Advance Directives [...] Discussed due to patient's condition Care Teams Software Designer Relationship Specialty Start Date End Date Bharati Wang MD [address] [place] [address] [place] [phone] PCP - General Family Medicine 10/02/21 documented as of this encounter
--- OUTSIDE RECORDS SUMMARY | 2024-07-03 23:07 | External Medical Summary ---
Author Name Unknown Address Unknown Organization K01:[facility] [place] [address] [facility] [place] [address] Laboratory Report Ordering Provider Test Date Status MERCEDES HUNT 04/21/2024 20:04:47 Final ADMITTED patient Observation Date Value Abnormality Reference (Units ) Status Adenovirus DNA [Presence] in Nasopharynx by JOHNATHAN with non-probe detection 04/21/2024 20:04:47 Negative Negative Final Human coronavirus 229E RNA [Presence] in Nasopharynx by JOHNATHAN with non-probe detection 04/21/2024 20:04:47 Negative Negative Final Human coronavirus HKU1 RNA [Presence] in Nasopharynx by JOHNATHAN with non-probe detection 04/21/2024 20:04:47 Negative Negative Final Human coronavirus NL63 RNA [Presence] in Nasopharynx by JOHNATHAN with non-probe detection 04/21/2024 20:04:47 Negative Negative Final Human coronavirus OC43 RNA [Presence] in Nasopharynx by JOHNATHAN with non-probe detection 04/21/2024 20:04:47 Negative Negative Final SARS-CoV-2 (COVID-19) RNA [Presence] in Nasopharynx by JOHNATHAN with non-probe detection 04/21/2024 20:04:47 Negative Negative Final Human metapneumovirus RNA [Presence] in Nasopharynx by JOHNATHAN with non-probe detection 04/21/2024 20:04:47 Negative Negative Final Rhinovirus+Enterovirus RNA [Presence] in Nasopharynx by JOHNATHAN with non-probe detection 04/21/2024 20:04:47 Negative Negative Final Influenza virus A RNA [Presence] in Nasopharynx by JOHNATHAN with non-probe detection 04/21/2024 20:04:47 Negative Negative Final Influenza virus B RNA [Presence] in Nasopharynx by JOHNATHAN with non-probe detection 04/21/2024 20:04:47 Negative Negative Final Parainfluenza virus 1 RNA [Presence] in Nasopharynx by JOHNATHAN with non-probe detection 04/21/2024 20:04:47 Negative Negative Final Parainfluenza virus 2 RNA [Presence] in Nasopharynx by JOHNATHAN with non-probe detection 04/21/2024 20:04:47 Negative Negative Final Parainfluenza virus 3 RNA [Presence] in Nasopharynx by JOHNATHAN with non-probe detection 04/21/2024 20:04:47 Negative Negative Final Parainfluenza virus 4 RNA [Presence] in Nasopharynx by JOHNATHAN with non-probe detection 04/21/2024 20:04:47 Negative Negative Final Respiratory syncytial virus RNA [Presence] in Nasopharynx by JOHNATHAN with non-probe detection 04/21/2024 20:04:47 Negative Negative Final Bordetella pertussis.pertussis toxin promoter region [Presence] in Nasopharynx by JOHNATHAN with non-probe detection 04/21/2024 20:04:47 Negative Negative Final Chlamydophila pneumoniae DNA [Presence] in Nasopharynx by JOHNATHAN with non-probe detection 04/21/2024 20:04:47 Negative Negative Final Mycoplasma pneumoniae DNA [Presence] in Nasopharynx by JOHNATHAN with non-probe detection 04/21/2024 20:04:47 Negative Negative Final Bordetella parapertussis [id number] DNA [Presence] in Nasopharynx by JOHNATHAN with non-probe detection 04/21/2024 20:04:47 Negative Negative Final The primers that detect Rhin ovirus may cross react with some Enterorviruses. The validation of bronchial specimens, tracheal aspirates, and throats for this assay was developed and performance characteristics determined by [employer]. The validation of alternate specimen types has not been cleared or approved by the U.S. Food and Drug Administration (FDA). It has been determined that such clearance or approval is not necessary. Performing Location [facility] [place] [facility] [place] [address]
--- OUTSIDE RECORDS SUMMARY | 2024-07-03 23:07 | External Medical Summary ---
Author Name Unknown Address Unknown Organization K01:[facility] [place] - [facility] [address] [place] [address] Laboratory Report Ordering Provider Test Date Status DELVIS KOENIG 04/21/2024 18:46:00 Final Observation Date Value Abnormality Reference (Units ) Status WBC, Total 04/21/2024 18:46:00 18.97 Above high normal 4.00-10.80 (K/uL) Final RBC 04/21/2024 18:46:00 2.63 3.85-5.15 (M/uL) Final Hemoglobin 04/21/2024 18:46:00 8.0 Below low normal 12.0-15.3 (g/dL) Final HCT 04/21/2024 18:46:00 25.3 Below low normal 36.0-45.2 (%) Final MCV 04/21/2024 18:46:00 96.2 81.5-97.5 (fL) Final MCH 04/21/2024 18:46:00 30.4 27.0-34.0 (pg) Final MCHC 04/21/2024 18:46:00 31.6 32.0-36.0 (g/dL) Final RDW 04/21/2024 18:46:00 15.3 11.5-15.5 (%) Final Platelets 04/21/2024 18:46:00 176 140-400 (K/uL) Final MPV 04/21/2024 18:46:00 10.3 6.6-11.1 (fL) Final Nucleated erythrocytes/100 leukocytes [Ratio] in Blood by Automated count 04/21/2024 18:46:00 0 <=0 (/100 WBCs) Final Performing Location [facility] [place] - [address] [place] [address]
--- OUTSIDE RECORDS SUMMARY | 2024-07-03 23:07 | External Medical Summary ---
Author Name Unknown Address Unknown Organization K01[place] [place] [address] [facility] [address] Laboratory Report Ordering Provider Test Date Status DELVIS KOENIG 04/21/2024 18:45:00 Final If R time > 20 minutes and n o clot formed suggesting hypocoagulable state or interfering substance (anticoagulation). Consider resubmitting a new sample and/or checking PT/INR, aPTT, fibrinogen, and platelet count. Observation Date Value Abnormality Reference (Units ) Status Clot formation [Time] in Blood by Thromboelastography 04/21/2024 18:45:00 5.8 2.5-8.3 (minutes) Final Clot strength in Blood by Thromboelastography 04/21/2024 18:45:00 1.2 0.5-3.7 (minutes) Final Clot angle in Blood by Thromboelastography 04/21/2024 18:45:00 71.7 46.8-78.4 (degrees) Final Maximum clot firmness [Length] in Blood by Thromboelastography 04/21/2024 18:45:00 69.5 50.6-72.5 (mm) Final Coagulation index in Blood b y Thromboelastography 04/21/2024 18:45:00 1.9 -3.0-3.0 Final Clot Lysis [Length fraction] in Blood by Thromboelastography --30 minutes post maximum clot amplitude 04/21/2024 18:45:00 0.1 0.0-7.5 (%) Final This is an appended report. These results have been appended to a previously preliminary verified report. Performing Location [facility] [place] [address] [facility] [address]
--- OUTSIDE RECORDS SUMMARY | 2024-07-03 23:07 | External Medical Summary ---
Author Name Unknown Address Unknown Organization K01:[facility] [place] [address] [facility] [place] [address] Laboratory Report Ordering Provider Test Date Status JEROMY DONG 04/22/2024 05:30:00 Final Observation Date Value Abnormality Reference (Units ) Status BUN 04/22/2024 05:30:00 15 6-20 (mg/dL) Final Creatinine 04/22/2024 05:30:00 0.8 0.5-1.0 (mg/dL) Final Glomerular filtration rate/1.73 sq M.predicted [Volume Rate/Area] in Serum, Plasma or Blood by Creatinine-based formula (CKD-EPI) 04/22/2024 05:30:00 72 >=60 (mL/min) Final eGFR is calculated based on the CKD-EPI 2020 equation. Sodium 04/22/2024 05:30:00 138 135-146 (m mol/L) Final Potassium 04/22/2024 05:30:00 3.9 3.5-5.1 (m mol/L) Final Cl 04/22/2024 05:30:00 107 98-107 (mm ol/L) Final CO2 04/22/2024 05:30:00 22 22-32 (mmo l/L) Final Anion gap 04/22/2024 05:30:00 9 7-15 (mmol /L) Final Glucose 04/22/2024 05:30:00 96 70-120 (mg /dL) Final Albumin 04/22/2024 05:30:00 2.9 Below low normal 3.8 -5.0 (g/dL) Final AST (Aspartate aminotransferase) 04/22/2024 05:30:00 6 Below low normal 10-35 (U/L) Final Alk Phos 04/22/2024 05:30:00 49 35-130 (U/ L) Final Bilirubin, Total 04/22/2024 05:30:00 0.9 <=1 .2 (mg/dL) Final Calcium 04/22/2024 05:30:00 8.1 Below low normal 8.4 -10.2 (mg/dL) Final Protein 04/22/2024 05:30:00 5.1 Below low normal 6.0 -8.3 (g/dL) Final ALT (Alanine aminotransferase) 04/22/2024 05:30:00 8 Below low normal 10-35 (U/L) Final Performing Location [facility] [place] [facility] [address] [facility] [address]
--- OUTSIDE RECORDS SUMMARY | 2024-07-03 23:07 | External Medical Summary ---
Author Name Unknown Address Unknown Organization K01:[facility] [place] [address] [place] [address] Laboratory Report Ordering Provider Test Date Status MERCEDES HUNT 04/21/2024 20:28:02 Final Observation Date Value Abnormality Reference (Units) Status Bacteria identified in Specimen by Culture 04/21/2024 20:28:02 No significant growth Final Test: Culture, Urine, Quanti tative
Specimen Source: Urine, Unspecified
Specimen Type: Urine
Specimen Date: 04/21/20242027
Result Date: 04/22/2024 1528
Result Status: Final result
Resulting Lab: [facility] [place]
[address]
[place] [address]

CULTURE

No significant growth

null Performing Location [facility] [place] [address] [place] [address]
--- OUTSIDE RECORDS SUMMARY | 2024-07-03 23:07 | External Medical Summary ---
Author Name Unknown Address Unknown Organization K01:[facility] [place] - [address] [place] [address] Laboratory Report Ordering Provider Test Date Status DELVIS KOENIG 04/21/2024 18:45:00 Final Observation Date Value Abnormality Reference (Units ) Status ABO 04/21/2024 18:45:00 O Final RH 04/21/2024 18:45:00 Positive Final RED BLOOD CELL ANTIBODY SCREEN 04/21/2024 18:45:00 Negative Final SPECIMEN EXPIRATION DATE 04/21/2024 18:45:00 04/24/2024 23:59 Final Performing Location [facility] - [address] [place] [address]
--- OUTSIDE RECORDS SUMMARY | 2024-07-03 23:07 | External Medical Summary ---
Author Name Unknown Address Unknown Organization K01[place] [place] [facility] [address] [facility] [address] Laboratory Report Ordering Provider Test Date Status DELVIS KOENIG 04/21/2024 18:45:00 Final Observation Date Value Abnormality Reference (Units ) Status Clot formation [Time] in Blood by Thromboelastography 04/21/2024 18:45:00 6.3 2.5-8.3 (minutes) Final Clot strength in Blood by Thromboelastography 04/21/2024 18:45:00 1.3 0.5-3.7 (minutes) Final Clot angle in Blood by Thromboelastography 04/21/2024 18:45:00 69.7 46.8-78.4 (degrees) Final Maximum clot firmness [Length] in Blood by Thromboelastography 04/21/2024 18:45:00 69.4 50.6-72.5 (mm) Final Coagulation index in Blood b y Thromboelastography 04/21/2024 18:45:00 1.4 -3.0-3.0 Final Clot Lysis [Length fraction] in Blood by Thromboelastography --30 minutes post maximum clot amplitude 04/21/2024 18:45:00 0.2 0.0-7.5 (%) Final This is an appended report. These results have been appended to a previously preliminary verified report. Performing Location [facility] [place] [address] [place] [address] [place] [address]
[2024-07-03] MEDS: SULFAMETHOXAZOLE/TRIMETHOPRIM DS 800/160MG TAB PO SCH (23:14)
--- OUTSIDE RECORDS SUMMARY | 2024-07-04 01:29 | External Medical Summary | Summary of Care ---
Author Name Unknown Organization [facility] Address [address] [place] [address] Phone [phone] Care Team Providers Care Assistant Buyer Name Role Phone Bharati Wang MD Primary Care Provide r Reason for Visit * Reason Comments eRx-Medication Refill Encounter Details Date Type Department Care Team (Late st Contact Info) Description 07/03/2024 Refill Family Medicine [address] [phone] Bharati Wang MD [address] [place] [address] [place] [phone] Carotid-cavernous fistula; Thromboembolus (HCC) Allergies Active Allergy Reactions Criticality Noted Date Comments Ampicillin 09/23/2003 Hives/trouble breathing Azithromycin 09/24/2003 hives and angioedema Ranitidine 10/29/2002 rash documented as of this encounter (statuses as of 07/03/2024) Medications VITAMIN D 2000 UNITS PO CAPS [...] Active Clopidogrel Bisulfate 75 MG Oral Tablet (pLAVix)Indica tions:Carotid- cavernous fistula,Thromb oembolus (HCC) Take 1 Tablet by mouth in the morning. 30 Tablet 5 4 Active Lisinopril 20 MG Oral Tablet (Prinivil)Yamileth cations:HTN, goal below 140/90 Take 1 Tablet by mouth in the morning. 90 Tablet 1 5 Active Sulfamethoxazo le-Trimethopri m 800-160 MG Oral Tablet (Bactrim DS)Indications :Acute cystitis with hematuria Take 1 Tablet by mouth in the morning and 1 Tablet before bedtime. Do all this for 7 days. Until gone. 14 Tablet 5 07/07/19 25 Active Eliquis 5 MG Oral Tablet (Apixaban)Yamileth cations:Caroti d-cavernous fistula,Thromb oembolus (HCC) Take 1 Tablet by mouth in the morning and 1 Tablet before bedtime. 180 Tablet 5 Active Apixaban 5 MG Oral Tablet (Eliquis)Indic ations:Carotid -cavernous fistula,Thromb oembolus (HCC) Take 1 Tablet by mouth in the morning and 1 Tablet before bedtime. 60 Tablet 4 07/03/19 25 Discontinued documented as of this encounter (statuses as of 07/03/2024) Active Problems Problem Noted Date Diagnosed Date [...] as of this encounter (statuses as of 07/03/2024) Resolved Problems Problem Noted Date Diagnosed Date [...] fracture of humerus 08/07/2019 01/22/2024 Overview (08/10/2019): [facility] Bilateral sciatica 06/01/2019 Spasm of muscle [...] as of this encounter (statuses as of 07/03/2024) Immunizations Name Administration Dates Next Due COVID-19 [...] ages 0-17 years) Not on file 04/22/2024 Food Insecurity Answer Date Recorded Within the past 12 months, y ou worried that your food would run out before you got the money to buy more. Never true 04/22/20 24 Within the past 12 months, t he food you bought just didn't last and you didn't have money to get more. Never true 04/22/2024 Do you need food for this week? 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 Not on file Not on file Not on file documented as of this encounter Miscellaneous Notes * Telephone Encounter - Jonathon Leiva [facility] - 07/03/2024 1:48 PM EST Signed Prescriptions: Disp Refills Eliquis 5 MG Oral Tablet (Apixaban) 180 Ta*0 Sig: Take 1 Tablet by mouth in the morning and 1 Tablet before bedtime.Authorizing Provider: Johnnie WANG User: JONATHON LEIVA -- * Telephone Encounter - Jonathon Leiva [facility] - 07/03/2024 1:46 PM EST RX authorized for this fill only. Zero additional refills given until upcoming appt. 08/25/2024 Thank you, Teodoro Leiva, PharmD Clinical Pharmacist [facility] 07/03/24 1:47 PM [phone] documented in this encounter Plan of Treatment Upcoming Encounters Date Type Department Care Team (Late st Contact Info) Description 07/09/2024 1:00 PM EST Nurse Only Ancillary [address] [place] [address] [place] [facility] [address] [place] [address] 08/25/2024 10:00 AM EDT Office Visit Family Medicine [address] [place] [phone] Bharati Wang MD [address] [place] [address] [place] [address] 09/10/2024 11:30 AM EDT Office Visit [address] [place] [address] Yann Jackson MD [address] [place] [address] 09/18/2024 12:00 PM EDT Appointment Vascular [facility] [address] [place] [address] 09/18/2024 12:30 PM EDT Appointment Vascular [place] [address] [place], [place] [phone] 09/18/2024 1:20 PM EDT Office Visit Vascular [place] [address] [place] [address] Samson Dennis MD [address] [place] [address] Scheduled Procedures Name Priority Associated Diagnoses Date/Ti me ESOPHAGOGASTRODUODENOSCOPY ( EGD), FLEXIBLE, TRANSORAL, DIAGNOSTIC Recall Contreras esophagus Health Maintenance Due Date Last Done Comments Alpha-1 Antitrypsin 1953 Adult Wellness Visit 2002 DXA Scan 04/06/2018 04/06/2016, 09/2012, 02/08/2011, Additional history exists DISCUSS TOBACCO CESSATION (REFER TO SMARTSET #2781) 08/01/2018 08/01/2017 (Discussed) DTap/Tdap Vaccines (2 - [...] MEDICATION NEEDED FOR OSTEOPOROSIS (REFER TO SMARTSET #0706) Addressed 08/01/2017 (Discussed) Overridden with the intention of not completing the topic VITAMIN D LEVEL ONCE IN A LIFETIME-USE SMARTSET# 67467 Completed 02/12/2018, 04/25/2015, 09/24/2014, Additional history exists [...] this encounter Medical Devices Implanted Type Area Practicing Md Anesthesiologist Device Identifier Shelf Expiration Date Model / Serial / Lot Coil Target 3d [id number] - [id number] Implanted:Qty : 1 on 04/15/2024 by Yann Jackson MD at OR [facility] [place] N/A: Head ANNAMARIA : NEUROVASCULAR [id number] 12/16/2024 [id number] / / [id number] 6cm, Coil [employer]pac Implanted:Qty : 1 on 04/15/2024 by Yann Jackson MD at OR [facility] [place] N/A: Head [employer] 12/16/2028 [id number] / / [id number] 45cm, Coil [employer]pac Implanted:Qty : 1 on 04/15/2024 by Yann Jackson MD at OR [facility] [place] N/A: Head [employer] 12/16/2028 [id number] / / [id number] 60cm, Coil [employer] Implanted:Qty : 1 on 04/15/2024 by Yann Jackson MD at OR [facility] [place] N/A: Head [employer] 11/02/2028 [id number] / / [id number] Coil Target 3d [id number] - [id number] Implanted:Qty : 1 on 04/15/2024 by Yann Jackson MD at OR [facility] [place] N/A: Head ANNAMARIA : NEUROVASCULAR [id number] 12/24/2024 [id number] 60 / / [id number] Coil Target 360 Soft [id number] - [id number] Implanted:Qty : 1 on 04/15/2024 by Yann Jackson MD at OR [facility] [place] N/A: Head [employer]NAM[employer]IA : NEUROVASCULAR [id number] 06/23/2025 [id number] / / [id number] Coil Target 360 Ultra [id number] - [id number] Implanted:Qty : 1 on 04/15/2024 by Yann Jackson MD at OR [facility] [place] N/A: Head ANNAM[employer]IA : NEUROVASCULAR [id number] 05/04/2026 [id number] 00 / / [id number] Coil Target 360 Ultra [id number] - [id number] Implanted:Qty : 1 on 04/15/2024 by Yann Jackson MD at OR [facility] [place] N/A: Head ANNAMARIA : NEUROVASCULAR [id number] 02/03/2025 [id number] 80 / / [id number] 10cm, Coil [employer] Implanted:Qty : 2 on 04/15/2024 by Yann Jackson MD at OR [facility] [place] N/A: Head [employer] 12/24/2028 [id number] / / [id number] 30cm, Coil [employer]pac Implanted:Qty : 1 on 04/15/2024 by Yann Jackson MD at OR [facility] [place] N/A: Head [employer] 12/24/2028 [id number] / / [id number] 60cm, Coil [employer] Implanted:Qty : 1 on 04/15/2024 by Yann Jackson MD at OR [facility] [place] N/A: Head [employer] 11/02/2028 [id number] / / [id number] 6cm, Coil [employer] Implanted:Qty : 1 on 04/15/2024 by Yann Jackson MD at OR [facility] [place] N/A: Head [employer] 12/16/2028 [id number] / / [id number] Stent Vasc Hep [id number] - [id number] Implanted:Qty : 1 on 04/16/2024 by Samson Dennis MD at OR [facility] [place] Left: Iliac [employer] [id number] 12/29/2026 [id number] / [id number] / [id number] documented as of this encounter Visit Diagnoses Diagnosis Carotid-cavernous fistula Arteriovenous fistula, acquired Thromboembolus (HCC) Embolism and [...] Discussed due to patient's condition Care Teams Assistant Buyer Relationship Specialty Start Date End Date Bharati Wang MD [address] [place] [address] [place] [address] PCP - General Family Medicine 10/02/21 documented as of this encounter
[2024-07-04 07:21] LABS: Basophils # (auto) 0.03 K/uL (0.00-0.20); Basophils % (auto) 0.7 %; Eosinophils # (auto) 0.19 K/uL (0.00-0.50); Eosinophils % (auto) 4.2 %; Hematocrit (blood only) 30.6 % (37.0-47.0); Hemoglobin 9.6 g/dl (12.0-16.0); Immature Granulocytes # (auto) 0.01 K/uL (0.01-0.20); Immature Granulocytes % (auto) 0.2 %; Lymphocytes # (auto) 1.07 K/uL (1.20-3.40); Lymphocytes % (auto) 23.7 %; Mean Corpuscular Hemoglobin 27.2 pg (25.0-34.0); Mean Corpuscular Hgb Conc 31.4 g/dL (32.0-36.0); Mean Corpuscular Volume 86.7 fL (80.0-100.0); Mean Platelet Volume 10.4 fL (9.4-12.4); Monocytes # (auto) 0.53 K/uL (0.11-0.59); Monocytes % (auto) 11.8 %; Neutrophils # (auto) 2.68 K/uL (1.40-6.50); Neutrophils % (auto) 59.4 %; Platelet Count 183 K/uL (130-400); RDW Coefficient of Variation 15.1 % (11.5-14.5); RDW Standard Deviation 47.6 fL (36.4-46.3); Red Blood Count 3.53 M/uL (4.20-5.40); White Blood Count 4.51 K/ul (4.8-10.8)
[2024-07-04 07:42] LABS: BUN Creatinine Ratio 15.4 (10-20); Calcium 9.3 mg/dl (8.6-10.3); Creatinine Clr Calc Pharmacy 42.6 ml/min; Potassium 4.4 mmol/L (3.5-5.1)
--- NOTE | 2024-07-04 08:11 | Hospitalist Progress Note ---
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 GI Bleed Acute on Chronic Anemia Hgb 10 to 9 range, baseline hgb ~11 History PVD status post surgery on antiplatelet and Eliquis Rx Pt with Hx of retroperitoneal bleed CT abd/pelvis with no acute findings, does note improvement of previous retroperitoneal bleed Held home Eliquis and Plavix on admission IV PPI Follow H&H, transfuse PRBC to maintain hemoglobin of at least 8 Currently hemodynamically stable GI consulted, recommended or stated the following: "-Currently asymptomatic H/H stable No further melena Advance to regular diet now Can Stop Protonix gtt, change to Pantoprazole 40 mg by mouth twice daily..." Further discussed with Dr. Barnard from GI who stated that her home Eliquis and Plavix can be resumed and hemoglobin monitored Continue to monitor H&H with a.m. labs UTI Diagnosed outpt Continue home Bactrim Continue other home meds as ordered Diet: regular DVT prophylaxis: SCDs in setting of acute GI bleed Dispo: PT/OT for further recs once medically stable Admission and Anticipated Discharge Date Admission Date: July 03, 2024 Subjective patient was seen multiple times during the day Initially in the a.m. stated that she had no further episodes of bloody bowel movements Denying any shortness of breath, dizziness, chest pain or palpitations Asking about possible discharge After further discussion of GI recommendations later in the day, patient agreeable to staying for further evaluation Review of Systems Review of Systems: All systems reviewed & are unremarkable except as noted in Subjective Physical Exam Physical Exam: General: Alert, oriented. No acute distress Psych: Appropriate mood and affect Neuro: No gross deficits HEENT: NC/AT CV: RRR Resp: Breath sounds clear bilaterally, no increased effort of breathing Abdomen: Soft, nontender Extremities: No edema in lower extremities bilaterally. Results & Data Results & Data Vital Signs (Past 12 Hours) Vital Signs Temp Pulse Pulse Resp BP Pulse Ox O2 Del Method 07/04/24 07:25 36.7 C 63 18 105/65 95 Room Air 07/04/24 03:21 36.7 C 62 18 116/70 95 Room Air 07/04/24 02:36 72 07/03/24 22:10 36.5 C 68 18 151/77 H 97 Room Air Diagnostic Findings Abdomen/Pelvis CT 07/04/24 08:[address] WITH IV CONTRAST CT DOSE: 1145.49 mGy.cm HISTORY: Acute GI bleed. melena, GI bleed TECHNIQUE: Multiaxial CT images of the abdomen and pelvis were performed following the IV administration of Optiray, A dose lowering technique was utilized adhering to the principles of ALARA. COMPARISON STUDY: CT abdomen and pelvis 04/21/2024 FINDINGS: Extensive coronary artery calcifications. Mild bibasilar atelectasis/scarring. No pneumatosis or pneumoperitoneum. Unremarkable spleen, moderately atrophic pancreas, and pancreas. The gallbladder appears surgically absent. 2.8 cm left hepatic lobe cyst. Cysts of the kidneys measure up to 3.2 cm on the right. Cortical scarring with parenchymal thinning of the left kidney. 11 mm calcification noted within the midpole left kidney in the expected location of the previously described 4 cm complex cystic focus. Indeterminate mildly complex 9 mm hypodense focus of the superior pole left kidney. Unremarkable urinary bladder. Hysterectomy. Severe atherosclerosis of the abdominal aorta. Patent left iliac stent. No lymphadenopathy. Left retroperitoneal heterogeneous ovoid 3.7 x 2.0 x 4.5 cm structure on image 163 compatible with a subacute retroperitoneal hematoma which has considerably decreased in size from prior. No acute retroperitoneal hemorrhage on today's study. Mild nonspecific distal esophageal wall thickening. No bowel obstruction or bow el wall thickening. Cortical scarring within left inguinal soft tissues. Colonic diverticulosis. Moderate colonic fecal retention. Small fat filled umbilical hernia. Degenerative postoperative changes of the spine. IMPRESSION: 1. Near complete resolution of the previously described retroperitoneal hemorrhage described on the 04/21/2024 study with a small residual focus of subacute hemorrhage of the left retroperitoneum measuring up to 4.5 cm. 2. No bowel obstruction or bowel wall thickening. 3. Colonic diverticulosis without acute diverticulitis. 4. Cortical scarring and parenchymal thinning of the left kidney with coarse calcifications noted in the expected location of the previously described complex left renal cyst. 5. Incidental findings as above. ACT 112: Negative or not required by law. The above report was generated using voice recognition software. It may contain grammatical, syntax or spelling errors. Electronically signed by: Delmar Canchola M.D. 07/04/2024 10:07 AM
[2024-07-04] MEDS: lisinopril 20 MG TAB PO SCH (09:04)
[2024-07-04] MEDS: ROSUVASTATIN CALCIUM 20 MG TAB PO SCH (09:04)
[2024-07-04] MEDS: amLODIPine BESYLATE 5 MG TAB PO SCH (09:04)
[2024-07-04] MEDS: PANTOprazole 40 MG/10 ML SYR IV SCH (09:05)
[2024-07-04] MEDS: DOCUSATE SODIUM SYRUP 100 MG/10 ML UDC PO SCH (09:05)
[2024-07-04] MEDS: OPTIRAY 320 100ml IV ONE (09:38)
--- NOTE | 2024-07-04 10:09 | CT Scan Report ---
ABDOMEN AND PELVIS CT WITH IV CONTRAST CT DOSE: 1145.49 mGy.cm HISTORY: Acute GI bleed. melena, GI bleed TECHNIQUE: Multiaxial CT images of the abdomen and pelvis were performed following the IV administrat ion of Optiray, A dose lowering technique was utilized adhering to the principles of ALARA. COMPARISON STUDY: CT abdomen and pelvis 04/21/2024 FINDINGS: Extensive coronary artery calcifications. Mild bibasilar atelectasis/scarring. No pneumatos is or pneumoperitoneum. Unremarkable spleen, moderately atrophic pancreas, and pancreas. The gallblad torrie appears surgically absent. 2.8 cm left hepatic lobe cyst. Cysts of the kidneys measure up to 3.2 cm on the right. Cortical scarring with parenchymal thinning o f the left kidney. 11 mm calcification noted within the midpole left kidney in the expected location of the previously described 4 cm complex cystic focus. Indeterminate mildly complex 9 mm hypodense fo cus of the superior pole left kidney. Unremarkable urinary bladder. Hysterectomy. Severe atherosclero sis of the abdominal aorta. Patent left iliac stent. No lymphadenopathy. Left retroperitoneal heterog eneous ovoid 3.7 x 2.0 x 4.5 cm structure on image 163 compatible with a subacute retroperitoneal hem atoma which has considerably decreased in size from prior. No acute retroperitoneal hemorrhage on tod ay's study. Mild nonspecific distal esophageal wall thickening. No bowel obstruction or bowel wall thickening. Co rtical scarring within left inguinal soft tissues. Colonic diverticulosis. Moderate colonic fecal ret ention. Small fat filled umbilical hernia. Degenerative postoperative changes of the spine. IMPRESSION: 1. Near complete resolution of the previously described retroperitoneal hemorrhage described on the 06/21/2023 study with a small residual focus of subacute hemorrhage of the left retroperitoneum measur ing up to 4.5 cm. 2. No bowel obstruction or bowel wall thickening. 3. Colonic diverticulosis without acute diverticulitis. 4. Cortical scarring and parenchymal thinning of the left kidney with coarse calcifications noted in the expected location of the previously described complex left renal cyst. 5. Incidental findings as above. ACT 112: Negative or not required by law. The above report was generated using voice recognition software. It may contain grammatical, syntax o r spelling errors. Electronically signed by: Delmar Canchola M.D. 07/04/2024 10:07 AM
--- NOTE | 2024-07-04 11:37 | Gastrointestinal Consultation ---
Date of Consultation July 04, 2024 Assessment & Plan (1) Upper GI bleeding: (2) Melena: (3) Anemia: Currently asymptomatic H/H stable No further melena Advance to regular diet now Can Stop Protonix gtt, change to Pantoprazole 40 mg by mouth twice daily Eliquis and Plavix on hold now, will d/w Hospitalist team History of Present Illness Reason for Consultation: Upper GI bleed Attending Physician: Darcy Sanchez MD History of Present Illness Josefa Ramírez is a pleasant 88 yo CF with an extensive PMHx which includes h/o acute left limb ischemia s/p L iliac thromboembolectomy with external iliac stent grafting on 04/16/2024, as well as a prior retroperitoneal hemorrhage at that time who presented to ER with c/o melena x1 yesterday morning. She has been on Eliquis/Plavix therapy which was held in the ER. She states that she was concerned an presented to the ER. She did undergo a CT abd/pelvis which showed "near complete resolution of the previously described retroperitoneal hemorrhage described on the 04/21/2024 study with a small residual focus of subacute hemorrhage of the left retroperitoneum measuring up to 4.5 cm." Her initial Hgb in the ER was 10.2. She was placed on a Protonix gtt and was kept NPO. Overnight she denies any symptoms including abdominal pain, lightheadedness, dizziness, fevers, chills, nausea, vomiting, hematemesis, or further episodes of melena. She states that she is hungry, and would not want to undergo any invasive testing unless it was "absolutely needed." She has no further complaints. Allergies Allergy/AdvReac Type Severity Reaction Status Date / Time imipenem Allergy Severe Dyspnea Verified 07/03/24 19:56 meropenem Allergy Severe Dyspnea Verified 07/03/24 19:56 penicillamine Allergy Severe Dyspnea Verified 07/03/24 19:56 ranitidine Allergy Severe Dyspnea Verified 07/03/24 19:56 ampicillin Allergy Intermediate Dyspnea, Verified 07/03/24 19:56 hives azithromycin Allergy Intermediate Hives, Verified 07/03/24 19:56 angioedema Cephalosporins Allergy Intermediate Hives Verified 07/03/24 19:56 cilastatin Allergy Intermediate Dyspnea Verified 07/03/24 19:56 Macrolide Antibiotics Allergy Intermediate Hives, Verified 07/03/24 19:56 angioedema Penicillins Allergy Intermediate Hives Verified 07/03/24 19:56 adhesive Allergy Mild Rash Verified 07/03/24 19:56 Carbapenems Allergy Unknown Dyspnea Verified 07/03/24 19:56 Home Medications Medication Instructions Recorded Confirmed Type cyanocobalamin (vitamin B-12) 1,000 mcg PO PM 12/14/18 07/03/24 History 1,000 mcg tablet (Vitamin B-12) fluticasone propionate 50 2 spray intranasal QAM PRN Nasal 12/14/18 07/03/24 History mcg/actuation nasal Congestion spray,suspension rosuvastatin 20 mg tablet (Crestor) 20 mg PO QAM 11/12/19 07/03/24 History cholecalciferol (vitamin D3) 25 25 mcg PO QAM 05/05/20 07/03/24 History mcg (1,000 unit) chewable tablet (Vitamin D3) omeprazole 40 mg capsule,delayed 40 mg PO QAM 09/29/21 07/03/24 History release acetaminophen 500 mg tablet 500 mg PO QID PRN Pain 02/27/22 07/03/24 History (Tylenol Extra Strength) docusate sodium 50 mg capsule 50 mg PO DAILY 03/28/22 07/03/24 History (Stool Softener) amlodipine 5 mg tablet 5 mg PO DAILY 04/21/24 07/03/24 History apixaban 5 mg tablet (Eliquis) 5 mg PO 2XD 04/21/24 07/03/24 History clopidogrel 75 mg tablet 75 mg PO DAILY 04/21/24 07/03/24 History lisinopril 20 mg tablet 20 mg PO DAILY 07/03/24 07/03/24 History sulfamethoxazole 800 1 tab PO 2XD 07/03/24 07/03/24 History mg-trimethoprim 160 mg tablet Patient History Medical History Elevated hemidiaphragm L History of GI bleed 2020- DIRECTLY AFTER SHOULDER SURGERY History of COVID-19 10/2021 cough- no hospitalization, no current issues Post-traumatic osteoarthritis, left shoulder Chronic constipation Hx of cancer of uterus s/p hysterectomy with USO Carotid stenosis 50-69% right sided stenosis per 09/2018 doppler report but personal review of imaging by vascular felt that carotid artery stenosis <50% b/l - advised by vascular to f/u PRN; denies dizziness, lightheadedness, visual changes, headaches or syncope History of left shoulder fracture 07/2019 - medically managed until this upcoming surgery Surgical History History of esophagogastroduodenoscopy (EGD) Fusion of spine Left SI joint fusion: 06/14/2020: Grade 2 view, MAC 3.0, ETT 7.0 at [facility] Hx of tooth extraction Hx of surgical procedure Right SI joint fusion History of cataract surgery R/L History of colonoscopy History of surgery "Windpipe growth" removal History of tonsillectomy H/O hemorrhoidectomy History of appendectomy History of cholecystectomy H/O: hysterectomy + USO Hx of fusion of cervical spine History of lumbar fusion Family History Other Heart disease Social History Smoking Status: Current every day smoker Tobacco Type: Cigarettes Cigarettes Per Day: 1/2 ppd; Second Hand Exposure: No; Do You Dip or Chew Tobacco: No; Hx Alcohol Use: No Hx Substance Use: No Preferred Language: Kinyarwanda Communication Ability: Effective Retail [employer] Manager Required: No Beliefs That Will Affect Care: None marital status: Current Living Situation: Spouse Feels Safe at Home: Yes Assistive Devices: Denture - Upper and Denture - Lower Review of Systems Review of Systems: All systems reviewed & are unremarkable except as noted in HPI & below Physical Exam Constitutional: WD/WN, vitals as above Eyes: + anicteric sclerae Neck: normal visual inspection and trachea midline Respiratory: normal respiratory effort, lungs clear to auscultation Cardiovascular: RRR, no murmur, no edema Gastrointestinal (Abdomen): normal bowel sounds, soft, nontender, no hepatosplenomegaly Skin: no rashes, warm and dry Psychiatric: A+Ox3, euthymic affect Results & Data Vital Signs (Past 12 Hours) Vital Signs Temp Pulse Pulse Resp BP Pulse Ox O2 Del Method 07/04/24 07:25 36.7 C 63 18 105/65 95 Room Air 07/04/24 03:21 36.7 C 62 18 116/70 95 Room Air 07/04/24 02:36 72 PG Care Time/CCT Total # of Minutes Spent Total Time Spent with Patient: Total time spent is greater than 50% in coordination of care (as documented) at patient's floor/unit and/or counseling patient: Coding Level of Care Code 44687 INT INP/OBS CARE 3/75MIN Diagnoses Upper GI bleeding K92.2 Melena K92.1 Anemia D64.9
[2024-07-04] MEDS: CLOPIDOGREL BISULFATE 75 MG TAB PO SCH (16:04)
[2024-07-04] MEDS: APIXABAN 5 MG TABLET PO SCH (21:59)
[2024-07-04] MEDS: PANTOprazole 40 MG TAB PO SCH (21:59)
[2024-07-04] MEDS: CYANOCOBALAMIN (B-12) 500 MCG TABLET PO SCH (21:59)
[2024-07-04 23:29] VITALS: RESP 16
[2024-07-05 08:15] LABS: Hematocrit (blood only) 31.3 % (37.0-47.0); Hemoglobin 9.8 g/dl (12.0-16.0); Mean Corpuscular Hemoglobin 27.1 pg (25.0-34.0); Mean Corpuscular Hgb Conc 31.3 g/dL (32.0-36.0); Mean Corpuscular Volume 86.5 fL (80.0-100.0); Mean Platelet Volume 9.6 fL (9.4-12.4); Platelet Count 200 K/uL (130-400); RDW Coefficient of Variation 14.8 % (11.5-14.5); RDW Standard Deviation 47.2 fL (36.4-46.3); Red Blood Count 3.62 M/uL (4.20-5.40); White Blood Count 4.88 K/ul (4.8-10.8)
[2024-07-05 08:32] LABS: Albumin Globulin Ratio 1.3 (0.9-2); Albumin Level 3.7 gm/dl (3.4-5.0); Bilirubin,Total 0.4 mg/dl (0.2-1.0); Calcium 9.6 mg/dl (8.6-10.3); Creatinine Clr Calc Pharmacy 36.7 ml/min; Globulin 2.9 gm/dl (2.5-4.0); Magnesium 1.9 mg/dl (1.7-2.4); Phosphorus 3.9 mg/dl (2.5-4.9); Potassium 4.5 mmol/L (3.5-5.1); Total Protein 6.6 gm/dl (6.0-8.3)
[2024-07-05 11:56] VITALS: PULSE 65; TEMP 97.9; O2SAT 96
--- NOTE | 2024-07-05 12:08 | Discharge Summary ---
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 GI Bleed Acute on Chronic Anemia Hx of Retroperitoneal Bleed Hgb 10 to 9 range, baseline hgb ~11 History PVD status post surgery on antiplatelet and Eliquis Rx Pt with Hx of retroperitoneal bleed CT abd/pelvis with no acute findings, does note improvement of previous retroperitoneal bleed Held home Eliquis and Plavix on admission IV PPI transitioned to po pantoprazole 40mg BID Followed H&H with goal to transfuse PRBC to maintain hemoglobin of at least 8. Pt did not require a blood transfusion while hospitalized. Remained hemodynamically stable, wa able to ambulate the halls independently GI consulted, recommended or stated the following: "-Currently asymptomatic H/H stable No further melena Advance to regular diet now Can Stop Protonix gtt, change to Pantoprazole 40 mg by mouth twice daily..." Further discussed with Dr. Barnard from GI who stated that her home Eliquis and Plavix can be resumed and hemoglobin monitored hemoglobin remained stable on the day of discharge at 9.8 after resuming Eliquis and Plavix the night before. She had no further episodes of GI bleeding And remained hemodynamically stable Close PCP follow-up and GI follow-up after discharge. 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 Patient for past week has been feeling more tired than usual and past week having some nausea. Today ate fish dinner at lunchtime. has had 2 episodes of black color formed stool today. Denies abdominal pain. was having dysuria a week ago and diagnosed with UTI and has been on Bactrim for 4 days with resolution of dysuria. Denies fever/chills, diaphoresis, hematuria, hematemesis, hematochezia, MCINTOSH, dizziness, syncope, CP, SOB, cough, sore throat, rhinorrhea, abdominal pain, paresthesias, extremity weakness, extremity edema, rashes. 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 Dennis at [facility] and anticoagulation with Eliquis for 3 months was recommended. Unfortunately patient developed retroperitoneal hematoma and anemia with Hgb: 6.2 on 04/21/24 and was transferred to [facility]. Was discharged from [facility] on 04/24/24 with Eliquis resumed. Per chart review outpatient vascular surgery follow up at [facility] on 06/19/24 had recommended continuation of Plavix, Eliquis and rosuvastatin 05/25/24 Hgb: 11.5 04/29/24 Hgb: 9.1 04/24/24 Hgb: 7.7 08/29/21 EGD: Esophageal mucosal changes classified as Contreras's, medium size hiatal hernia 09/30/2020 EGD: Esophagitis with diffuse mucosal bleed oozing found in lower third of esophagus 07/27/2020 colonoscopy: 1 small polyp in the cecum, 1 small polyp at 40 cm proximal to anus were resected and per path results cecum polyp with fragments of tubular adenoma and no evidence of high-grade dysplasia, polyp at 40 cm tubular adenoma, no evidence of high-grade dysplasia 06/25/24 urine culture +>100,000 colonies/ml E coli. pansensitive. Since starting antibiotic dysuria has resolved. 06/30/24 started on Bactrim for 7 day course. Admission Exam Per Admitting Provider General: no acute distress, WDWN Head: normocephalic, atraumatic Eyes: conjunctiva non-injected, anicteric ENT: normal inspection external ears, nose, mucous membranes moist Neck: supple, trachea midline Lungs: clear, no respiratory distress, no wheezing/rhonchi/rales CV: RRR, no murmur, no pretibial edema Abd: normal BS, soft, non-tender to palpation Ext: no cyanosis, no erythema, no calf tenderness Neuro: A&O x 3, no focal deficits noted, normal affect Skin: warm, dry Discharge Exam General: Alert, oriented. No acute distress Psych: Appropriate mood and affect Neuro: No gross deficits HEENT: NC/AT CV: RRR Resp: Breath sounds clear bilaterally, no increased effort of breathing Abdomen: Soft, nontender Extremities: No edema in lower extremities bilaterally. Updated Medication List Medication Instructions Recorded Confirmed Type cyanocobalamin (vitamin B-12) 1,000 mcg PO PM 12/14/18 07/03/24 History 1,000 mcg tablet (Vitamin B-12) fluticasone propionate 50 2 spray intranasal QAM PRN Nasal 12/14/18 07/03/24 History mcg/actuation nasal Congestion spray,suspension rosuvastatin 20 mg tablet (Crestor) 20 mg PO QAM 11/12/19 07/03/24 History cholecalciferol (vitamin D3) 25 25 mcg PO QAM 05/05/20 07/03/24 History mcg (1,000 unit) chewable tablet (Vitamin D3) omeprazole 40 mg capsule,delayed 40 mg PO QAM 09/29/21 07/03/24 History release acetaminophen 500 mg tablet 500 mg PO QID PRN Pain 02/27/22 07/03/24 History (Tylenol Extra Strength) docusate sodium 50 mg capsule 50 mg PO DAILY 03/28/22 07/03/24 History (Stool Softener) amlodipine 5 mg tablet 5 mg PO DAILY 04/21/24 07/03/24 History apixaban 5 mg tablet (Eliquis) 5 mg PO 2XD 04/21/24 07/03/24 History clopidogrel 75 mg tablet 75 mg PO DAILY 04/21/24 07/03/24 History lisinopril 20 mg tablet 20 mg PO DAILY 07/03/24 07/03/24 History sulfamethoxazole 800 1 tab PO 2XD 07/03/24 07/03/24 History mg-trimethoprim 160 mg tablet pantoprazole 40 mg tablet,delayed 40 mg PO BID #60 tabs 07/05/24 Rx release Hospital Stay Data Consultations 07/03/24 19:51 ED Decision to Admit Stat 07/03/24 21:30 Consult Gastroenterology Routine Diagnostic Imagining Performed 07/04/24 08:14 CT abd pelvis IV con only Urgent Abdomen/Pelvis CT 07/04/24 08:[address] WITH IV CONTRAST CT DOSE: 1145.49 mGy.cm HISTORY: Acute GI bleed. melena, GI bleed TECHNIQUE: Multiaxial CT images of the abdomen and pelvis were performed following the IV administration of Optiray, A dose lowering technique was utilized adhering to the principles of ALARA. COMPARISON STUDY: CT abdomen and pelvis 04/21/2024 FINDINGS: Extensive coronary artery calcifications. Mild bibasilar atelectasis/scarring. No pneumatosis or pneumoperitoneum. Unremarkable spleen, moderately atrophic pancreas, and pancreas. The gallbladder appears surgically absent. 2.8 cm left hepatic lobe cyst. Cysts of the kidneys measure up to 3.2 cm on the right. Cortical scarring with parenchymal thinning of the left kidney. 11 mm calcification noted within the midpole left kidney in the expected location of the previously described 4 cm complex cystic focus. Indeterminate mildly complex 9 mm hypodense focus of the superior pole left kidney. Unremarkable urinary bladder. Hysterectomy. Severe atherosclerosis of the abdominal aorta. Patent left iliac stent. No lymphadenopathy. Left retroperitoneal heterogeneous ovoid 3.7 x 2.0 x 4.5 cm structure on image 163 compatible with a subacute retroperitoneal hematoma which has considerably decreased in size from prior. No acute retroperitoneal hemorrhage on today's study. Mild nonspecific distal esophageal wall thickening. No bowel obstruction or bowel wall thickening. Cortical scarring within left inguinal soft tissues. Col onic diverticulosis. Moderate colonic fecal retention. Small fat filled umbilical hernia. Degenerative postoperative changes of the spine. IMPRESSION: 1. Near complete resolution of the previously described retroperitoneal hemorrhage described on the 04/21/2024 study with a small residual focus of subacute hemorrhage of the left retroperitoneum measuring up to 4.5 cm. 2. No bowel obstruction or bowel wall thickening. 3. Colonic diverticulosis without acute diverticulitis. 4. Cortical scarring and parenchymal thinning of the left kidney with coarse calcifications noted in the expected location of the previously described complex left renal cyst. 5. Incidental findings as above. ACT 112: Negative or not required by law. The above report was generated using voice recognition software. It may contain grammatical, syntax or spelling errors. Electronically signed by: Delmar Canchola M.D. 07/04/2024 10:07 AM Pending Results Patient Have Any Pending Studies at Discharge: No Discharge Instructions Given to Patient (Per Discharging Provider) Josefa, You are being discharged home. We were concerned that you were bleeding in your GI tract. Your hemoglobin remained stable. You were re-started on your home Plavix and Eliquis and it remained stable after that as well. You had no further episodes of bloody bowel movements. You were seen by the traffic agent and they recommended no emergent procedure at this time. They recommended that you continue with pantoprazole 40 mg by mouth twice daily. Please keep close follow up with your primary care provider after discharge. Please do not hesitate to come back to the emergency room if your symptoms worsen or return. It was a pleasure taking care of you while you were here. Total Time Total Time Spent Total Time Spent (In Minutes): 65
[2024-07-05 12:38] VITALS: BP 126/69
--- NOTE | 2024-07-06 06:24 | Electrocardiogram Report ---
Test Reason : Blood Pressure : */* mmHG Vent. Rate : 73 BPM Atrial Rate : 73 BPM P-R Int : 146 ms QRS Dur : 74 ms QT Int : 372 ms P-R-T Axes : 8 -26 39 degrees QTcB Int : 409 ms Normal sinus rhythm Cannot rule out Anterior infarct , age undetermined Abnormal ECG When compared with ECG of 21-Apr-2024 12:57, No significant change Confirmed by Fernando Fermin ([id number]) on 07/06/2024 6:23:43 AM Referred By: Confirmed By: Fernando Fermin
== END 2024-07-05 13:13 | disposition home or self-care (01) | DRG 378 ==
LOC: ED 15:57 → 2N 21:10

== ENCOUNTER 2024-07-08 15:05 | Inpatient (IN) ==
--- NOTE | 2024-07-08 15:17 | ED Triage Note ---
Date of Service July 08, 2024 Provider in Triage Author: Meg Calloway History of Present Illness This patient was briefly evaluated while in triage. An abbreviated physical exam was performed. This patient is a 88-year-old Female who presents to the ED for evaluation admitted 07/02-07/04 for UGIB - was having dark stools now having BRBPR, lightheaded, dizzy, heart racing still on plavix and eliquis Physical Exam GENERAL: NAD CARDIOVASCULAR: RRR RESPIRATORY: CTA ABDOMEN: BS x 4. Nontender to palpation. Initial orders for labs and / or imaging were placed and patient was placed in the waiting area until a bed is available. Please see further documentation for the full ED course. MDM / Impression Impression Impression: BRBPR (bright red blood per rectum), Symptomatic anemia, Acute kidney injury superimposed on chronic kidney disease
[2024-07-08 15:44] LABS: Basophils # (auto) 0.05 K/uL (0.00-0.20); Basophils % (auto) 0.8 %; Eosinophils # (auto) 0.15 K/uL (0.00-0.50); Eosinophils % (auto) 2.5 %; Hematocrit (blood only) 28.8 % (37.0-47.0); Hemoglobin 8.9 g/dl (12.0-16.0); Immature Granulocytes # (auto) 0.02 K/uL (0.01-0.20); Immature Granulocytes % (auto) 0.3 %; Lymphocytes # (auto) 1.36 K/uL (1.20-3.40); Lymphocytes % (auto) 22.7 %; Mean Corpuscular Hemoglobin 27.3 pg (25.0-34.0); Mean Corpuscular Hgb Conc 30.9 g/dL (32.0-36.0); Mean Corpuscular Volume 88.3 fL (80.0-100.0); Mean Platelet Volume 10.2 fL (9.4-12.4); Monocytes # (auto) 0.43 K/uL (0.11-0.59); Monocytes % (auto) 7.2 %; Neutrophils # (auto) 3.99 K/uL (1.40-6.50); Neutrophils % (auto) 66.5 %; Platelet Count 270 K/uL (130-400); RDW Coefficient of Variation 15.1 % (11.5-14.5); RDW Standard Deviation 48.5 fL (36.4-46.3); Red Blood Count 3.26 M/uL (4.20-5.40)
[2024-07-08 15:58] LABS: Alanine Aminotransferase 16 U/L (7-52); Albumin Globulin Ratio 1.4 (0.9-2); Albumin Level 3.9 gm/dl (3.4-5.0); Alkaline Phosphatase 87 U/L (34-104); Anion Gap 6 (3-11); Aspartate Aminotransferase 15 U/L (13-39); BUN Creatinine Ratio 22.2 (10-20); Bilirubin,Total 0.3 mg/dl (0.2-1.0); Blood Urea Nitrogen 28 mg/dl (6-23); Calcium 9.1 mg/dl (8.6-10.3); Carbon Dioxide 23 mmol/L (21-32); Chloride 109 mmol/L (98-107); Globulin 2.7 gm/dl (2.5-4.0); Glucose 126 mg/dl (70-99(Fasting)); Potassium 4.6 mmol/L (3.5-5.1); Sodium 138 mmol/L (136-145); Total Protein 6.6 gm/dl (6.0-8.3)
[2024-07-08 16:04] LABS: Troponin I High Sensitivity 3.5 pg/ml (0-14)
[2024-07-08 16:06] LABS: Partial Thromboplastin Ratio 0.9; Partial Thromboplastin Time 25 Seconds (21-31); Prothrombin Time 11.2 Seconds (9.0-12.0)
--- NOTE | 2024-07-08 17:44 | Emergency Department Note ---
Impression & Plan BRBPR (bright red blood per rectum), Symptomatic anemia, Acute kidney injury superimposed on chronic kidney disease ED Provider Note HISTORY OF PRESENT ILLNESS: Patient is a 88-year-old female presenting with bright red blood per rectum. Patient reports that 3 days ago she had dark tarry consistency to her stool. Reports that yesterday her stool was normal. However, today she was shopping at [employer] when she lost control of her bowels and had a grossly bloody bowel movement. Reports the stool was bright red in color. She is on aspirin and Plavix. She was previously admitted to the hospital for presumed upper GI bleed and was discharged 4 days ago. Reports that over the last 3 days she has been feeling very rundown and fatigued. Denies any significant chest pain or shortness of breath. Denies any abdominal pain, nausea or vomiting. Denies any fevers. Patient reports a previous history of hemorrhoids, but reports she had them surgically removed. She denies any pain with bowel movements in the last few days. ROS: as above PHYSICAL EXAM: Constitutional: Patient appears in no acute distress. HENT: Head: Normocephalic and atraumatic. Eyes: EOMI, PERRL Mouth/Throat: Mucous membranes moist. Neck: Trachea midline. Neck supple. Cardiovascular: RRR, No murmurs, rubs or gallops. Intact distal pulses. Pulmonary/Chest: No respiratory distress. Breath sounds clear and equal bilaterally. No wheezes or rales. Abdominal: Abdomen soft, no tenderness, rebound or guarding. : Chaperoned by nursing staff. No palpable masses or hemorrhoids. No roberto melena or gross blood, but Hemoccult positive. Musculoskeletal: No edema, tenderness or deformity noted. Skin: Warm and dry. No rash, erythema, pallor or cyanosis Psychiatric: Appropriate mood and affect for situation. Neurological: Alert and keenly responsive. CN II-XII grossly intact, moving all extremities equally and fully. MDM: - Vitals signs stable. - History obtained via patient. History as above. - Chronic conditions affecting care: HTN; HLD; COPD; carotid stenosis; Contreras's esophagus; GERD; CKD - Differential diagnoses include, but are not limited to: Diverticular bleed; bleeding hemorrhoid; anal fissure; coagulopathy - Order placed for continuous cardiac monitoring. At this time, monitor showed rate of 75 bpm with normal sinus rhythm, per my interpretation. - External medical records reviewed. Discharge summary dated 07/05/2024 was reviewed. Patient was admitted for presumed upper GI bleed and acute on chronic anemia. Baseline hemoglobin is noted at 11. - EKG image interpreted by myself showed normal sinus rhythm. Rate 83 bpm. QT 360. No acute ischemic changes. - Laboratory workup interpreted by myself showed normal WBC; anemia (Hgb 8.9 - down from 9.8 three days ago); normal PT/INR; stable electrolytes; JACQUIE (Cr 1.26); elevated BUN (28); normal troponin - CTA abdomen/pelvis negative for acute abnormality. 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 No obvious extravasation on CT imaging - Rectal exam was Hemoccult positive. Patient did not a significant amount of stool in her rectal vault and no obvious gross blood was found. She was typed and screened for blood in case her hemoglobin trends down. However, she is symptomatic to her new anemia. Her hemoglobin is dropped about a gram in the last 3 days. Will admit for further hemoglobin trending and further workup. - Discussion was had with case management rn about patient's case and need for admission - Hospitalist, Dr. Walker, consulted for admission - Patient admitted to [facility] service for further evaluation and management. ASSESSMENT AND PLAN: Diagnosis: Bright red blood per rectum; JACQUIE on CKD; symptomatic anemia Plan: Admit Past Med/Surg History Problem List (Updated 07/08/24 @ 19:41 by Cecil Walker DO) Acute renal failure superimposed on stage 3 chronic kidney disease Diverticular hemorrhage Anemia Melena PAD (peripheral artery disease) GI bleed (Acute) 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 Tobacco use disorder Hyperlipidemia Hypertension controlled, stable per pt Acid reflux controlled, stable per pt CKD (chronic kidney disease), stage III COPD (chronic obstructive pulmonary disease) stable per pt, last rescue inhaler use 1 week ago Medical History Elevated hemidiaphragm L History of GI bleed 2020- DIRECTLY AFTER SHOULDER SURGERY History of COVID-19 10/2021 cough- no hospitalization, no current issues Post-traumatic osteoarthritis, left shoulder Chronic constipation Hx of cancer of uterus s/p hysterectomy with USO Carotid stenosis 50-69% right sided stenosis per 09/2018 doppler report but personal review of imaging by vascular felt that carotid artery stenosis <50% b/l - advised by vascular to f/u PRN; denies dizziness, lightheadedness, visual changes, headaches or syncope History of left shoulder fracture 07/2019 - medically managed until this upcoming surgery Surgical History History of esophagogastroduodenoscopy (EGD) Fusion of spine Left SI joint fusion: 06/14/2020: Grade 2 view, MAC 3.0, ETT 7.0 at [facility] Hx of tooth extraction Hx of surgical procedure Right SI joint fusion History of cataract surgery R/L History of colonoscopy History of surgery "Windpipe growth" removal History of tonsillectomy H/O hemorrhoidectomy History of appendectomy History of cholecystectomy H/O: hysterectomy + USO Hx of fusion of cervical spine History of lumbar fusion Family History Other Heart disease Social History Smoking Status: Never smoker Tobacco Type: Cigarettes Cigarettes Per Day: 1/2 ppd; Second Hand Exposure: No; Do You Dip or Chew Tobacco: No; Hx Alcohol Use: No Hx Substance Use: No Preferred Language: Korean Communication Ability: Effective Reserve Officer Required: No Beliefs That Will Affect Care: None marital status: Current Living Situation: Spouse Feels Safe at Home: Yes Assistive Devices: Denture - Upper and Denture - Lower Allergies Allergies Allergy/AdvReac Type Severity Reaction Status Date / Time imipenem Allergy Severe Dyspnea Verified 07/03/24 19:56 meropenem Allergy Severe Dyspnea Verified 07/03/24 19:56 penicillamine Allergy Severe Dyspnea Verified 07/03/24 19:56 ranitidine Allergy Severe Dyspnea Verified 07/03/24 19:56 ampicillin Allergy Intermediate Dyspnea, Verified 07/03/24 19:56 hives azithromycin Allergy Intermediate Hives, Verified 07/03/24 19:56 angioedema Cephalosporins Allergy Intermediate Hives Verified 07/03/24 19:56 cilastatin Allergy Intermediate Dyspnea Verified 07/03/24 19:56 Macrolide Antibiotics Allergy Intermediate Hives, Verified 07/03/24 19:56 angioedema Penicillins Allergy Intermediate Hives Verified 07/03/24 19:56 adhesive Allergy Mild Rash Verified 07/03/24 19:56 Carbapenems Allergy Unknown Dyspnea Verified 07/03/24 19:56 Home Meds Home Medications Medication Instructions Recorded Confirmed cyanocobalamin (vitamin B-12) 1,000 mcg PO QDL 12/14/18 07/08/24 1,000 mcg tablet (Vitamin B-12) fluticasone propionate 50 2 spray intranasal QAM PRN Nasal 12/14/18 07/08/24 mcg/actuation nasal Congestion spray,suspension rosuvastatin 20 mg tablet (Crestor) 20 mg PO QAM 11/12/19 07/08/24 cholecalciferol (vitamin D3) 25 25 mcg PO QDL 05/05/20 07/08/24 mcg (1,000 unit) chewable tablet (Vitamin D3) acetaminophen 500 mg tablet 500 mg PO QID PRN Pain 02/27/22 07/08/24 (Tylenol Extra Strength) docusate sodium 50 mg capsule 50 mg PO DAILY PRN Constipation 03/28/22 07/08/24 (Stool Softener) amlodipine 5 mg tablet 5 mg PO QAM 04/21/24 07/08/24 apixaban 5 mg tablet (Eliquis) 5 mg PO AMHS 04/21/24 07/08/24 clopidogrel 75 mg tablet 75 mg PO QAM 04/21/24 07/08/24 lisinopril 20 mg tablet 20 mg PO QAM 07/03/24 07/08/24 Previous Rx's Medication Instructions Recorded pantoprazole 40 mg tablet,delayed 40 mg PO BID #60 tabs 07/05/24 release Results & Data (ED) Vital Signs Vital Signs - 24 hr 07/08/24 15:14 07/08/24 19:35 Temperature 36.8 C Temperature Source Temporal Artery Scan Pulse Rate 87 Pulse Rate [Apical] 75 Respiratory Rate 19 20 Respiratory Effort / Characteristics Non-Labored Spontaneous Respiratory Depth Normal Blood Pressure 105/63 Blood Pressure [Left Arm] 114/54 L Blood Pressure Mean 77 Blood Pressure Mean [Left Arm] 74 Pulse Oximetry 97 96 Oxygen Delivery Method Room Air Room Air Sepsis Recent Fever Within 48 Hours No Sepsis New/Unexplained Change in Mental Status N/A Sepsis Action Taken by Nursing No Action Required Laboratory Data 07/08/24 15:29 07/08/24 15:29 Lab Results 07/08/24 07/08/24 Range/Units 15:17 15:29 WBC 6.00 (4.8-10.8) K/ul RBC 3.26 L (4.20-5.40) M/uL Hgb 8.9 L (12.0-16.0) g/dl Hct 28.8 L (37.0-47.0) % MCV 88.3 (80.0-100.0) fL MCH 27.3 (25.0-34.0) pg MCHC 30.9 L (32.0-36.0) g/dL RDW Std Deviation 48.5 H (36.4-46.3) fL RDW Coeff of Devi 15.1 H (11.5-14.5) % Plt Count 270 (130-400) K/uL MPV 10.2 (9.4-12.4) fL Immature Gran % (Auto) 0.3 % Neut % (Auto) 66.5 % Lymph % (Auto) 22.7 % Morrill % (Auto) 7.2 % Eos % (Auto) 2.5 % Baso % (Auto) 0.8 % Neut # (Auto) 3.99 (1.40-6.50) K/uL Lymph # (Auto) 1.36 (1.20-3.40) K/uL Morrill # (Auto) 0.43 (0.11-0.59) K/uL Eos # (Auto) 0.15 (0.00-0.50) K/uL Baso # (Auto) 0.05 (0.00-0.20) K/uL Immature Gran # (Auto) 0.02 (0.01-0.20) K/uL PT 11.2 (9.0-12.0) Seconds INR 1.0 (0.9-1.1) APTT 25 (21-31) Seconds PTT Ratio 0.9 Sodium 138 (136-145) mmol/L Potassium 4.6 (3.5-5.1) mmol/L Chloride 109 H (98-107) mmol/L Carbon Dioxide 23 (21-32) mmol/L Anion Gap 6 (3-11) BUN 28 H (6-23) mg/dl Creatinine 1.26 H (0.6-1.2) mg/dl Est Cr Clr Drug Dosing Not Reportable eGFR 41.32 BUN/Creatinine Ratio 22.2 H (10-20) Glucose 126 H (70-99(Fasting)) mg/dl Calcium 9.1 (8.6-10.3) mg/dl Total Bilirubin 0.3 (0.2-1.0) mg/dl AST 15 (13-39) U/L ALT 16 (7-52) U/L Alkaline Phosphatase 87 (34-104) U/L Troponin I High Sens 3.5 (0-14) pg/ml Total Protein 6.6 (6.0-8.3) gm/dl Albumin 3.9 (3.4-5.0) gm/dl Globulin 2.7 (2.5-4.0) gm/dl Albumin/Globulin Ratio 1.4 (0.9-2) POC Stool Occult Blood Positive A (Negative) Blood Type O Positive Antibody Screen NEGATIVE Administered Medications Sodium Chloride (Nss) 1,000 mls @ 999 mls/hr IV .Q1H1M ONE Stop: 07/08/24 20:09 Last Admin: 07/08/24 19:34 Dose: 999 mls/hr Documented By: KMF Discontinued Medications Ioversol (Optiray 320 125ml) 119 ml IV ONCE ONE Stop: 07/08/24 18:18 Last Admin: 07/08/24 18:17 Dose: 119 ml Documented By: PLW Imaging Data Radiologist's Impression: Abdomen/Pelvis CTA 07/08/24 17:43 Clinical history: GI bleed Technique: Axial computed tomography images were obtained of the abdomen and pelvis after the administration of intravenous contrast according to the CT angiogram protocol Comparison is made to the prior CT dated 07/04/2024 Findings: The abdominal aorta appears unremarkable with no sign of aneurysm or dissection. There is multifocal atherosclerotic plaque within the aorta without significant stenosis. The celiac axis and superior mesenteric artery are patent with no stenosis identified. The inferior mesenteric artery is patent as well. There is calcified plaque at the origin of the left renal artery, without significant stenosis. There is mild plaque at the origin of the right renal artery as well, without apparent stenosis There are mild stenoses of the common iliac and internal iliac arteries bilaterally. There is a patent stent within the left external iliac artery. 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 There is an apparent focal dissection of the mid right external iliac artery as well. There is an approximately 40% diameter stenosis of the left common femoral artery The liver is overall of normal size, attenuation, and contour with no sign of cirrhosis or significant fatty infiltration. There is an unchanged 2 cm cyst in the left hepatic lobe. No liver mass lesion is seen. The portal vein is patent. The gallbladder appears to have been removed. No bile duct dilatation is noted. The spleen is of normal size. No focal splenic lesion is evident. The pancreas appears normal with no sign of acute or chronic pancreatitis and no mass lesion noted. The pancreatic duct is of normal caliber. The adrenal glands appear unremarkable. There is an unchanged 1 cm left renal calculus with adjacent left renal cortical scarring. There is no hydronephrosis or perinephric stranding. No renal mass lesion is identified. There are bilateral renal cysts, measuring up to 3 cm. No adenopathy is seen. The stomach appears normal. There is no sign of small bowel obstruction. There is diverticulosis without evidence of diverticulitis. No free intraperitoneal fluid or air is identified. There is a small umbilical hernia containing only fat No distal ureteral or bladder calculi are seen. No bladder mass lesion is evident. The uterus has been removed There is mild subsegmental atelectasis in both lower lobes. There is coronary atherosclerosis There is fusion of the sacroiliac joints bilaterally. An extensive thoracolumbar fusion is again seen. There is grade 2 anterolisthesis at L5-S1. No focal osseous lesion is seen. There is bilateral hip osteoarthritis Impression: 1. No sign of abdominal aortic aneurysm or dissection 2. No definite sign of renal or mesenteric artery stenosis 3. Mild stenoses of the left common iliac artery and the internal iliac arteries bilaterally 4. Patent stent in the left external iliac artery 5. 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 There is an apparent small focal dissection of the right external iliac artery as well 6. 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 Unchanged left renal calculus, left renal cortical scarring, and bilateral renal cysts 8. Hepatic cyst 9. Diverticulosis without evidence of diverticulitis Electronically signed by Papo Joseph 07-08-2024 6:41 PM Discharge Plan Visit Data Chief Complaint: Rectal Bleed Stated Complaint: INTERNAL BLEED, RECTAL BLEED ED Provider: Sanam Renteria Discharge Problem: BRBPR (bright red blood per rectum), Symptomatic anemia, Acute kidney injury superimposed on chronic kidney disease Forms Stand Alone Forms: [facility] [employer] Prescriptions Prescriptions: No Action cyanocobalamin (vitamin B-12) [Vitamin B-12] 1,000 mcg Tablet 1,000 mcg PO QDL fluticasone propionate 50 mcg/actuation [place],Suspension 2 spray INTRANASAL QAM PRN (Reason: Nasal Congestion) rosuvastatin [Crestor] 20 mg Tablet 20 mg PO QAM cholecalciferol (vitamin D3) [Vitamin D3] 25 mcg (1,000 unit) Tablet,Chewable 25 mcg PO QDL acetaminophen [Tylenol Extra Strength] 500 mg Tablet 500 mg PO QID PRN (Reason: Pain) Stool Softener 50 mg Capsule 50 mg PO DAILY PRN (Reason: Constipation) clopidogrel 75 mg tablet 75 mg PO QAM amlodipine 5 mg tablet 5 mg PO QAM Eliquis 5 mg tablet 5 mg PO AMHS lisinopril 20 mg tablet 20 mg PO QAM pantoprazole 40 mg Tablet,Delayed Release (Dr/Ec) 40 mg PO BID Qty: 60 0RF Referrals Referrals: Bharati Wang MD [Primary Care Provider] -
[2024-07-08] MEDS: OPTIRAY 320 125ml IV ONE (18:17)
--- NOTE | 2024-07-08 18:41 | CT Scan Report ---
Clinical history: GI bleed Technique: Axial computed tomography images were obtained of the abdomen and pelvis after the administration of intravenous contrast according to the CT angiogram protocol Comparison is made to the prior CT dated 07/04/2024 Findings: The abdominal aorta appears unremarkable with no sign of aneurysm or dissection. There is multifocal atherosclerotic plaque within the aorta without significant stenosis. The celiac axis and superior mesenteric artery are patent with no stenosis identified. The inferior mesenteric artery is patent as well. There is calcified plaque at the origin of the left renal artery, without significant stenosis. There is mild plaque at the origin of the right renal artery as well, without apparent stenosis There are mild stenoses of the common iliac and internal iliac arteries bilaterally. There is a patent stent within the left external iliac artery. 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 There is an apparent focal dissection of the mid right external iliac artery as well. There is an approximately 40% diameter stenosis of the left common femoral artery The liver is overall of normal size, attenuation, and contour with no sign of cirrhosis or significant fatty infiltration. There is an unchanged 2 cm cyst in the left hepatic lobe. No liver mass lesion is seen. The portal vein is patent. The gallbladder appears to have been removed. No bile duct dilatation is noted. The spleen is of normal size. No focal splenic lesion is evident. The pancreas appears normal with no sign of acute or chronic pancreatitis and no mass lesion noted. The pancreatic duct is of normal caliber. The adrenal glands appear unremarkable. There is an unchanged 1 cm left renal calculus with adjacent left renal cortical scarring. There is no hydronephrosis or perinephric stranding. No renal mass lesion is identified. There are bilateral renal cysts, measuring up to 3 cm. No adenopathy is seen. The stomach appears normal. There is no sign of small bowel obstruction. There is diverticulosis without evidence of diverticulitis. No free intraperitoneal fluid or air is identified. There is a small umbilical hernia containing only fat No distal ureteral or bladder calculi are seen. No bladder mass lesion is evident. The uterus has been removed There is mild subsegmental atelectasis in both lower lobes. There is coronary atherosclerosis There is fusion of the sacroiliac joints bilaterally. An extensive thoracolumbar fusion is again seen. There is grade 2 anterolisthesis at L5-S1. No focal osseous lesion is seen. There is bilateral hip osteoarthritis Impression: 1. No sign of abdominal aortic aneurysm or dissection 2. No definite sign of renal or mesenteric artery stenosis 3. Mild stenoses of the left common iliac artery and the internal iliac arteries bilaterally 4. Patent stent in the left external iliac artery 5. 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 There is an apparent small focal dissection of the right external iliac artery as well 6. 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 Unchanged left renal calculus, left renal cortical scarring, and bilateral renal cysts 8. Hepatic cyst 9. Diverticulosis without evidence of diverticulitis Electronically signed by Papo Joseph 07-08-2024 6:41 PM
[2024-07-08] MEDS: SODIUM CHLORIDE 0.9% 1,000 ML IV ONE (19:34)
--- NOTE | 2024-07-08 19:42 | History & Physical Report ---
Date of Service July 08, 2024 Assessment & Plan (1) Diverticular hemorrhage: (2) Acute blood loss anemia: (3) Acute renal failure superimposed on stage 3 chronic kidney disease: (4) PAD (peripheral artery disease): (5) Hypertension: (6) CKD (chronic kidney disease), stage III: (7) COPD (chronic obstructive pulmonary disease): Plan Patient 88-year-old female on chronic anticoagulation and antiplatelet therapyDue to severe peripheral arterial disease status post left iliac thromboembolectomy of the external iliac stent grafting on 04/16/2024. At that time had been recommended she be on anticoagulation for 3 months. Patient presents today with bright red blood per rectum and evidence of acute blood loss anemia. Care for in the hospital on a monitored unit Trend hemoglobin, transfuse if hemoglobin drops below 7 or patient becomes more symptomatic Clear liquid diet until midnight then n.p.o. Consult GI Reviewed blood transfusions with the patient, she gave consent and written consent obtained should she require blood transfusion Hold Eliquis and Plavix Hold TERRI inhibitor with mild acute kidney injury, monitor creatinine Patient received 1 L of IV fluid resuscitation in ED. Will continue to monitor needs for additional IV fluids In review of outside EMR it appears vascular surgery had recommended patient stay on Plavix and Eliquis for more prolonged period of time. However, now with the patient presenting with what appears to be an upper GI bleed and now a lower GI bleed risks of anticoagulation may outweigh the benefits. May need to reach out to [facility] vascular surgery determine risk benefits of anticoagulation. History of Present Illness Chief Complaint: Bright red blood per rectum Primary Care Provider: Bharati Wang MD Patient is an 88-year-old female who was just recently discharged from the hospital with melanotic stools and what was thought to be an upper GI bleed. Patient is on Plavix and Eliquis. Which was resumed after it appeared that her upper GI bleed had stopped. Today she was out shopping at [employer] when she had an incontinent completely bloody stool. She described that the stool was bright red blood in appearance. She was able to get home and she said she had another bright episode of bright red blood from her rectum at home. Came to the emergency room for evaluation. In the emergency room her hemoglobin did drop about a gram from when she was just discharged a few days ago. She was referred to our service for further evaluation. Time my evaluation patient is resting comfortably. She states that she has not had any further bloody stools since she arrived to the ED. She states since she was discharged she did have a stool that seems to be getting less black and turning brown. And she states that she was starting to feel better. She states she did feel little lightheaded when she had the large incontinent stool today but. But she did not have any chest pain or shortness of breath. She states that she had extensive hemorrhoidectomy years ago and did not have any trouble with bleeding hemorrhoids recently. She denies any fever or chills. No cough or cold symptoms. Has been eating well since her discharge. Allergies Allergy/AdvReac Type Severity Reaction Status Date / Time imipenem Allergy Severe Dyspnea Verified 07/03/24 19:56 meropenem Allergy Severe Dyspnea Verified 07/03/24 19:56 penicillamine Allergy Severe Dyspnea Verified 07/03/24 19:56 ranitidine Allergy Severe Dyspnea Verified 07/03/24 19:56 ampicillin Allergy Intermediate Dyspnea, Verified 07/03/24 19:56 hives azithromycin Allergy Intermediate Hives, Verified 07/03/24 19:56 angioedema Cephalosporins Allergy Intermediate Hives Verified 07/03/24 19:56 cilastatin Allergy Intermediate Dyspnea Verified 07/03/24 19:56 Macrolide Antibiotics Allergy Intermediate Hives, Verified 07/03/24 19:56 angioedema Penicillins Allergy Intermediate Hives Verified 07/03/24 19:56 adhesive Allergy Mild Rash Verified 07/03/24 19:56 Carbapenems Allergy Unknown Dyspnea Verified 07/03/24 19:56 Home Medications Medication Instructions Recorded Confirmed Type cyanocobalamin (vitamin B-12) 1,000 mcg PO QDL 12/14/18 07/08/24 History 1,000 mcg tablet (Vitamin B-12) fluticasone propionate 50 2 spray intranasal QAM PRN Nasal 12/14/18 07/08/24 History mcg/actuation nasal Congestion spray,suspension rosuvastatin 20 mg tablet (Crestor) 20 mg PO QAM 11/12/19 07/08/24 History cholecalciferol (vitamin D3) 25 25 mcg PO QDL 05/05/20 07/08/24 History mcg (1,000 unit) chewable tablet (Vitamin D3) acetaminophen 500 mg tablet 500 mg PO QID PRN Pain 02/27/22 07/08/24 History (Tylenol Extra Strength) docusate sodium 50 mg capsule 50 mg PO DAILY PRN Constipation 03/28/22 07/08/24 History (Stool Softener) amlodipine 5 mg tablet 5 mg PO QAM 04/21/24 07/08/24 History apixaban 5 mg tablet (Eliquis) 5 mg PO AMHS 04/21/24 07/08/24 History clopidogrel 75 mg tablet 75 mg PO QAM 04/21/24 07/08/24 History lisinopril 20 mg tablet 20 mg PO QAM 07/03/24 07/08/24 History pantoprazole 40 mg tablet,delayed 40 mg PO BID #60 tabs 07/05/24 07/08/24 Rx release Past Med/Surg History Problem List (Updated 07/08/24 @ 19:41 by Cecil Walker DO) Acute renal failure superimposed on stage 3 chronic kidney disease Diverticular hemorrhage Anemia Melena PAD (peripheral artery disease) GI bleed (Acute) 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 Tobacco use disorder Hyperlipidemia Hypertension controlled, stable per pt Acid reflux controlled, stable per pt CKD (chronic kidney disease), stage III COPD (chronic obstructive pulmonary disease) stable per pt, last rescue inhaler use 1 week ago Medical History Elevated hemidiaphragm L History of GI bleed 2020- DIRECTLY AFTER SHOULDER SURGERY History of COVID-19 10/2021 cough- no hospitalization, no current issues Post-traumatic osteoarthritis, left shoulder Chronic constipation Hx of cancer of uterus s/p hysterectomy with USO Carotid stenosis 50-69% right sided stenosis per 09/2018 doppler report but personal review of imaging by vascular felt that carotid artery stenosis <50% b/l - advised by vascular to f/u PRN; denies dizziness, lightheadedness, visual changes, headaches or syncope History of left shoulder fracture 07/2019 - medically managed until this upcoming surgery Surgical History History of esophagogastroduodenoscopy (EGD) Fusion of spine Left SI joint fusion: 06/14/2020: Grade 2 view, MAC 3.0, ETT 7.0 at [facility] Hx of tooth extraction Hx of surgical procedure Right SI joint fusion History of cataract surgery R/L History of colonoscopy History of surgery "Windpipe growth" removal History of tonsillectomy H/O hemorrhoidectomy History of appendectomy History of cholecystectomy H/O: hysterectomy + USO Hx of fusion of cervical spine History of lumbar fusion Family History Other Heart disease Social History Smoking Status: Never smoker Tobacco Type: Cigarettes Cigarettes Per Day: 1/2 ppd; Second Hand Exposure: No; Do You Dip or Chew Tobacco: No; Hx Alcohol Use: No Hx Substance Use: No Preferred Language: [place] Communication Ability: Effective Vulnerability Researcher Required: No Beliefs That Will Affect Care: None marital status: Current Living Situation: Spouse Feels Safe at Home: Yes Assistive Devices: Denture - Upper and Denture - Lower Review of Systems Review of Systems: Pertinent positive and negative review of systems as mentioned in the HPI Physical Exam Physical Exam: Constitutional: Alert, slightly pale in appearance nontoxic HEENT: Mucous membranes moist. Sclera clear Neck: Soft, no adenopathy Lungs: Clear to auscultation, decreased, no wheezes rales or rhonchi CV: S1-S2, regular Abdomen: Soft, nontender, nondistended Extremities: No significant edema Musculoskeletal: No significant joint tenderness Neuro: No focal deficits Psych: Cooperative, normal mood Results & Data Results & Data Vital Signs (Past 12 Hours) Vital Signs Temp Pulse Resp BP Pulse Ox O2 Del Method 07/08/24 15:14 36.8 C 87 19 105/63 97 Room Air Diagnostic Findings Reviewed imaging, laboratory and diagnostic studies. Pertinent findings as below. CT of the abdomen report reviewed. No acute findings. Retroperitoneal bleed was not mentioned and therefore suspected to have been resolved. Did mention diverticulosis without evidence of diverticulitis. WBC 6.0 Hemoglobin 8.9 Platelets 270 INR 1.0 Electrolytes stable Creatinine 1.26, slightly increased Stool for occult blood positive Personally reviewed EKG, sinus rhythm, no acute ST-T wave changes Code Status & VTE Plan VTE Prophylaxis Plan VTE Prophylaxis will be ordered: Yes
[2024-07-08] MEDS ORDERED: ONDANSETRON INJ 2 MG/ML 2 ML VIAL IV PRN (21:11)
[2024-07-08] MEDS: PANTOprazole 40 MG TAB PO SCH (21:37)
--- OUTSIDE RECORDS SUMMARY | 2024-07-09 00:23 | External Medical Summary ---
Author Name Unknown Address Unknown Organization K01:[facility] [place] - [address] [facility] [address] Laboratory Report Ordering Provider Test Date Status BAUTISTA KELLY 07/07/2024 13:51:08 Negra l Observation Date Value Abnormality Reference (Units ) Status SYNC LEUKOCYTES IN BLOOD BY AUTOMATED COUNT 07/07/2024 13:51:08 7.18 4.00-10.80 (K/uL) Final Neutrophils/100 leukocytes in Blood by Manual count 07/07/2024 13:51:08 55.0 40.0-75.0 (%) Final Lymphocytes/100 leukocytes in Blood by Manual count 07/07/2024 13:51:08 35.0 18.0-42.0 (%) Final Monocytes/100 leukocytes in Blood by Manual count 07/07/2024 13:51:08 8.0 1.0-11.0 (%) Final Eosinophils/100 leukocytes in Blood by Manual count 07/07/2024 13:51:08 2.0 0.0-6.0 (%) Final Neutrophils [#/volume] in Blood by Manual count 07/07/2024 13:51:08 3.95 1.80-7.70 (K/uL) Final Lymphocytes [#/volume] in Blood by Manual count 07/07/2024 13:51:08 2.51 1.00-4.80 (K/uL) Final Monocytes [#/volume] in Blood by Manual count 07/07/2024 13:51:08 0.57 0.00-1.10 (K/uL) Final Eosinophils [#/volume] in Blood by Manual count 07/07/2024 13:51:08 0.14 0.00-0.70 (K/uL) Final Variant lymphocytes [Presence] in Blood by Light microscopy 07/07/2024 13:51:08 Present Abnormal None Seen Final Neutrophils.vacuolated [Presence] in Blood by Light microscopy 07/07/2024 13:51:08 Present Abnormal None Seen Final Performing Location LAB[facility]ATORY [facility] [place] - [address] [facility] [address]
--- OUTSIDE RECORDS SUMMARY | 2024-07-09 00:23 | External Medical Summary | Summary of Care ---
Author Name Unknown Organization [facility] Address [address] [place] [address] Phone [phone] Care Team Providers Care Change Of Address Clerk Name Role Phone Bharati Wang MD Primary Care Provide r Encounter Details Date Type Department Care Team (Late st Contact Info) Description 07/06/2024 Population Health External Data Unspecified Department Allergies Active Allergy Reactions Criticality Noted Date Comments Ampicillin 09/23/2003 Hives/trouble breathing Azithromycin 09/24/2003 hives and angioedema Ranitidine 10/29/2002 rash documented as of this encounter (statuses as of 07/06/2024) Medications VITAMIN D 2000 UNITS PO CAPS [...] the morning. 30 Tablet 5 05/15/2024 Active Lisinopril 20 MG Oral Tablet (Prinivil)Indic ations:HTN, goal below 140/90 Take 1 Tablet by mouth in the morning. 90 Tablet 1 06/25/2024 Active Sulfamethoxazol e-Trimethoprim 800-160 MG Oral Tablet (Bactrim DS)Indications: Acute cystitis with hematuria Take 1 Tablet by mouth in the morning and 1 Tablet before bedtime. Do all this for 7 days. Until gone. 14 Tablet 06/30/2024 Active Eliquis 5 MG Oral Tablet (Apixaban)Indic ations:Carotid- cavernous fistula,Thrombo embolus (HCC) Take 1 Tablet by mouth in the morning and 1 Tablet before bedtime. 180 Tablet 07/03/2024 Active documented as of this encounter (statuses as of 07/06/2024) Active Problems Problem Noted Date Diagnosed Date [...] as of this encounter (statuses as of 07/06/2024) Resolved Problems Problem Noted Date Diagnosed Date [...] fracture of humerus 08/07/2019 01/22/2024 Overview (08/10/2019): [facility] Bilateral sciatica 06/01/2019 4 Spasm of [...] as of this encounter (statuses as of 07/06/2024) Immunizations Name Administration Dates Next Due COVID-19 [...] No 04/20/2024 Does the household have a [facility] source of income? 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 Not on file Not on file Not on file documented as of this encounter Plan of Treatment Upcoming Encounters Date Type Department Care Team (Late st Contact Info) Description 07/09/2024 1:00 PM EST Nurse Only Ancillary [address] [place] [id number] Christian Nurse [address] [place] [id number] 08/25/2024 10:00 AM EDT Office Visit Family Medicine [address] [place] [phone] Bharati Wang MD [address] [place] [address] [place] [address] 09/10/2024 11:30 AM EDT Office Visit Neurosurgery, [place] [address] [place] [address] Yann Jackson MD [facility] [place] [id number] 09/18/2024 12:00 PM EDT Appointment Vascular Lab [place] [address] [place] [address] 09/18/2024 12:30 PM EDT Appointment Vascular Lab [place] [address] [place] [address] 09/18/2024 1:20 PM EDT Office Visit Vascular Surg [place] [address] [place] [address] Samson Dennis MD [facility] [address] [place], [place] [id number] Scheduled Procedures Name Priority Associated Diagnoses Date/Ti [...] D LEVEL ONCE IN A LIFETIME-USE SMARTSET# 25160 Completed 02/12/2018, 04/25/2015, 09/24/2014, Additional history exists [...] this encounter Medical Devices Implanted Type Area Software Design Analyst Device Identifier Shelf Expiration Date Model / Serial / Lot Coil Target 3d [id number] - [id number] Implanted:Qty : 1 on 04/15/2024 by Yann Jackson MD at OR [facility] N/A: Head ANNAMARIA : NEUROVASCULAR [id number] 12/16/2024 [id number] 60 / / [id number] 6cm, Coil [employer]pac Implanted:Qty : 1 on 04/15/2024 by Yann Jackson MD at OR [facility] N/A: Head [employer] 12/16/2028 [id number] / / [id number] 45cm, Coil [employer]pac Implanted:Qty : 1 on 04/15/2024 by Yann Jackson MD at OR [facility] N/A: Head [employer] 12/16/2028 [id number] / / [id number] 60cm, Coil [employer] Implanted:Qty : 1 on 04/15/2024 by Yann Jackson MD at OR [facility] N/A: Head [employer] 11/02/2028 [id number] / / [id number] Coil Target 3d [id number] - [id number] Implanted:Qty : 1 on 04/15/2024 by Yann Jackson MD at OR [facility] N/A: Head ANNAMARIA : NEUROVASCULAR [id number] 12/24/2024 [id number] 60 / / [id number] Coil Target 360 Soft [id number] - [id number] Implanted:Qty : 1 on 04/15/2024 by Yann Jackson MD at OR [facility] N/A: Head ANNAMARIA : NEUROVASCULAR [id number] 06/23/2025 [id number] / / [id number] Coil Target 360 Ultra [id number] - [id number] Implanted:Qty : 1 on 04/15/2024 by Yann Jackson MD at OR [facility] N/A: Head ANNAMARIA : NEUROVASCULAR [id number] 05/04/2026 [id number] 00 / / [id number] Coil Target 360 Ultra [id number] - [id number] Implanted:Qty : 1 on 04/15/2024 by Yann Jackson MD at OR [facility] N/A: Head ANNAMARIA : NEUROVASCULAR [id number] 02/03/2025 [id number] 80 / / [id number] 10cm, Coil [employer] Implanted:Qty : 2 on 04/15/2024 by Yann Jackson MD at OR [facility] N/A: Head [employer] 12/24/2028 [id number] / / [id number] 30cm, Coil [employer] Implanted:Qty : 1 on 04/15/2024 by Yann Jackson MD at OR [facility] N/A: Head [employer] 12/24/2028 [id number] / / [id number] 60cm, Coil [employer] Implanted:Qty : 1 on 04/15/2024 by Yann Jackson MD at OR [facility] N/A: Head [employer] 11/02/2028 [id number] / / [id number] 6cm, Coil [employer] Implanted:Qty : 1 on 04/15/2024 by Yann Jackson MD at OR [facility] N/A: Head [employer] 12/16/2028 [id number] / / [id number] Stent Vasc Hep [id number] - [id number] Implanted:Qty : 1 on 04/16/2024 by Samson Dennis MD at OR [facility] Left: Iliac [employer] [id number] 12/29/2026 [id number] / [id number] / [id number] documented as of this encounter Advance Directives [...] Discussed due to patient's condition Care Teams Change Of Address Clerk Relationship Specialty Start Date End Date Bharati Wang MD [address] [place] [address] [place] [address] PCP - General Family Medicine 10/02/21 documented as of this encounter
--- OUTSIDE RECORDS SUMMARY | 2024-07-09 00:23 | External Medical Summary | Summary of Care ---
Author Name Unknown Organization [facility] Address [address] [place] [address] Phone [phone] Care Team Providers Care Supply Chain Buyer Name Role Phone Bharati Wang MD Primary Care Provide r Reason for Referral * Evaluate & Treat - Unlimited Visits (Within 30 days (routine)) - Authorized Specialty Diagnoses / Procedures Referred By Cinda mane Referred To Contact Gastroenterology Diagnoses Gastrointestinal hemorrhage, unspecified gastrointestinal hemorrhage type Bharati Wang MD [address] [place] [address] [place] [address] Phone: tel: fax: Referral ID Status Reason Start Date Expiration Date Visits Requested Visits Authorized [id number] Authorized Specialty Services Required 07/07/2024 999 999 Question Answer Referral Priority Within 30 days (routine) Where should this appointment be scheduled? [facility] For what condition is the patient being referred? All Gastro Conditions Reason for Visit * Reason Onset Date Comments Hospital Follow-Up Hospital Follow-Up 07/07/2024 Encounter Details Date Type Department Care Team (Latest Contact Info) Description 07/07/2024 1:40 PM EST Office Visit Family Medicine [address] [place] [phone] Bharati Wang MD [address] [place] [address] [place] [address] Hospital discharge follow-up*; Carotid-cavernous fistula; Thromboembolus (HCC); PAD (peripheral artery disease) (HCC); Gastrointestinal hemorrhage, unspecified gastrointestinal hemorrhage type Allergies Active Allergy Reactions Criticality Noted Date Comments Ampicillin 09/23/2003 Hives/trouble breathing Azithromycin 09/24/2003 hives and angioedema Ranitidine 10/29/2002 rash documented as of this encounter (statuses as of 07/07/2024) Medications VITAMIN D 2000 UNITS PO CAPS [...] in the evening 16 g 4 Active amLODIPine Besylate 5 MG Oral [...] the morning. 90 Tablet 1 5 Active Eliquis 5 MG Oral Tablet (Apixaban)Yamileth cations:Caroti d-cavernous fistula,Thromb oembolus (HCC) Take 1 Tablet by mouth in the morning and 1 Tablet before bedtime. 180 Tablet 5 Active Pantoprazole Sodium 40 MG Oral Packet (Protonix) Administer 40 mg into feeding tube in the morning and 40 mg before bedtime. Active Omeprazole 40 MG Oral Capsule Delayed Release (PriLOSEC)Yamileth cations:Cyrus t's esophagus with dysplasia TAKE ONE CAPSULE BY MOUTH EVERY MORNING 100 Capsule 3 4 07/07/19 25 Discontinu ed(Medicat ion List Clean Up) Sulfamethoxazo le-Trimethopri m 800-160 MG Oral Tablet (Bactrim DS)Indications :Acute cystitis with hematuria Take 1 Tablet by mouth in the morning and 1 Tablet before bedtime. Do all this for 7 days. Until gone. 14 Tablet 5 07/07/19 25 Discontinu ed(Medicat ion List Clean Up) documented as of this encounter (statuses as of 07/07/2024) Active Problems Problem Noted Date Diagnosed Date Thromboembolus 07/07/2024 CKD (chronic kidney disease), stage II 5 S/P insertion of iliac artery stent 06/25/2024 [...] as of this encounter (statuses as of 07/07/2024) Resolved Problems Problem Noted Date Diagnosed Date [...] fracture of humerus 08/07/2019 01/22/2024 Overview (08/10/2019): [facility] Bilateral sciatica 06/01/2019 Spasm of muscle [...] as of this encounter (statuses as of 07/07/2024) Immunizations Name Administration Dates Next Due COVID-19 [...] Job Start Date Job End Date 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 Not on file Not on file Not on file documented as of this encounter Last Filed Vital Signs Vital Sign Reading Time Taken Comments Blood Pressure 124/62 07/07/2024 1:19 PM EST Pulse 84 07/07/2024 1:19 PM EST Temperature 35.6 C (96 F) 07/07/2024 1:19 PM EST Respiratory Rate - - Oxygen Saturation 97% 07/07/2024 1:19 PM EST Inhaled Oxygen Concentration - - Weight 72.5 kg (159 lb 12.8 oz) 07/07/2024 1:19 PM EST Height - - Body Mass Index 27.43 05/18/2024 1:40 PM EST documented in this encounter Progress Notes * Bharati Wang MD - 07/07/2024 1:29 PM EST Subjective: HPI: Josefa Ramírez is [...] grafting of the dissection flap seen for Pt was admitted to the hospital from 07/03-07/05 GI bleed with melena - CT abd: no sign of hematoma - both eliquis and plavix held - started on protonix 40mg BID - GI consulted - no blood transfusion - discharge hgb was 9.8 - advised to resume eliquis and plavix Today: - pt is having brown stool (taking stool softener) - denied any nausea or abd pain - denied any dizziness - restarted plavix and eliquis - pt is feeling fatigued - taking protonx BID Patient Active Problem List Diagnosis Irritable bowel syndrome with constipation Allergic rhinitis due to pollen Vitamin D deficiency Persistent insomnia Vitamin B12 deficiency COPD, mild ([facility]) Spinal stenosis of lumbar region without neurogenic claudication Carotid stenosis, non-symptomatic, bilateral Dyslipidemia Contreras's esophagus without dysplasia 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 Gastro-esophageal reflux disease without esophagitis Acute lower limb ischemia Retroperitoneal hematoma Hyperbilirubinemia Age-related osteoporosis without current pathological fracture PAD (peripheral artery disease) ([facility]) CKD (chronic kidney disease), stage II S/P insertion of iliac artery stent History of thromboembolism Thromboembolus ([facility]) Current Outpatient Medications Medication Sig Dispense Refill [...] AND in the evening 16 g 0 amLODIPine Besylate 5 MG Oral Tablet (Norvasc) TAKE ONE TABLET BY MOUTH EVERY MORNING 90 Tablet 3 Rosuvastatin Calcium 20 MG Oral Tablet (Crestor) TAKE ONE TABLET BY MOUTH EVERY DAY 90 Tablet 3 Clopidogrel Bisulfate 75 MG Oral Tablet (pLAVix) Take 1 Tablet by mouth in the morning. 30 Tablet 5 Lisinopril 20 MG Oral Tablet (Prinivil) Take 1 Tablet by mouth in the morning. 90 Tablet 1 Eliquis 5 MG Oral Tablet (Apixaban) Take 1 Tablet by mouth in the morning and 1 Tablet before bedtime. 180 Tablet 0 Pantoprazole Sodium 40 MG Oral Packet (Protonix) Administer 40 mg into feeding tube in the morning and 40 mg before bedtime. No current facility-administered medications for this visit. [...] of humerus, left, closed, initial encounter 08/07/2019 [facility] HTN, goal below 130/80 04/19/2009 Hypercalcemia [...] ARTERY performed by Samson Dennis MDat [facility] BLEPHAROPTOSIS, FRONTALIS, REPAIR Bilateral 08/10/2015 CAROTID (INTERNAL) ARTERY CATHETHER PLACEMENT Bilateral 03/27/2024 CATHETER PLACEMENT INTERNAL CAROTID ARTERY RADIAL ACCESS performed by Yann Jackson MD at [facility] CAROTID (INTERNAL) ARTERY CATHETHER PLACEMENT Bilateral 04/15/2024 CATHETER PLACEMENT INTERNAL CAROTID ARTERY performed by Yann Jackson MD at OR [facility] CAROTID (EXTERNAL) ARTERY CATHETHER PLACEMENT Bilateral 03/27/2024 CATHETER PLACEMENT EXTERNAL CAROTID ARTERY performed by Yann Jackson MD at OR [facility] CAROTID (EXTERNAL) ARTERY CATHETHER PLACEMENT Bilateral 04/15/2024 CATHETER PLACEMENT EXTERNAL CAROTID ARTERY performed by Yann Jackson MD at OR [facility] CATHETER OCCLUSION/EMBOLIZATION,AVIONICS MECHANIC N/A 04/15/2024 TRANSCATHETER PERMANENT ARTERIAL OCCLUSION CENTRAL NERVOUS SYSTEM performed by Yann Jackson MD at [facility] CERVICAL LAMINOPLAST W/DECOMP,RECON 06/17/2006 Dr. Potts COLONOSCOPY, DIAGNOSTIC (RECTUM) 03/08/2015 adenomatous polyps, repeat 5 yrs/COLONOSCOPY FLEXIBLE PROXIMAL DIAGNOSTIC performed by Rene Elise MD at [facility] COLONOSCOPY, DIAGNOSTIC (RECTUM) 07/27/2020 benign adenomatous polyps / COLONOSCOPY FLEXIBLE PROXIMAL DIAGNOSTIC performed by Rene Elise MD at [facility] COLONOSCOPY, GI REFERRAL OP 01/16/2005 Dr. Mcneil - diverticulosis CT SINUSES W WO CONTRAST 06/06/2006 air fluid levels in bilateral maxillary and sphenoid sinuses, frontal sinus opacified, mucosal thickening of ethmoids, left osteomeatal complex opacified, left nasal septal deviation EGD, FLEXIBLE, DIAGNOSTIC 11/14/2020 Barretts, hiatal hernia, repeat 6 mo / ESOPHAGOGASTRODUODENOSCOPY (EGD), FLEXIBLE, TRANSORAL, DIAGNOSTIC performed by Santi Edwards MD at [facility] EGD, FLEXIBLE, DIAGNOSTIC 08/29/2021 Barretts, hiatal hernia, repeat 2 yrs / ESOPHAGOGASTRODUODENOSCOPY (EGD), FLEXIBLE, TRANSORAL, DIAGNOSTIC performed by Santi Edwards MD at [facility] EGD, FLEXIBLE, DIAGNOSTIC 09/30/2020 Bleeding esophagitis with underlying Contreras's esophagus, repeat 6 wks / INPT [facility] EGD, FLEXIBLE, W/BIOPSY 08/16/2006 path-no abnormalities FULL PULMONARY FUNCTION TEST 05/2000 HEMORRHOIDECTOMY, SIMPLE, 1 COLUMN Remote past ILIAC ART. REVASC W/ STENT+ANGIOPLASTY 04/16/2024 ILIAC ARTERY REVASC W/ STENT+ANGIOPLASTY performed by Samson Dennis MD at [facility] INTRACRANIAL ARTERIES CATH PLACEMENT Bilateral 04/15/2024 CATHETER PLACEMENT EACH INTRACRANIAL BRANCH OF THE INTERNAL CAROTID OR VERTEBRAL ARTERIES performedby Yann Jackson MD at [facility] IR ARTERIOGRAM EXTREMITY UNILATERAL 04/16/2024 IMAGING SUPERVISION & INTERPRETATION EXTREMITY UNILATERAL performed by Samson Dennis MD at [facility] L-/S-SPINE PARAVERTEBRAL FACET INJ,1 LEVEL 02/09/2019 L-/S-SPINE PARAVERTEBRAL FACET INJ, 1 LEVEL performed by Chris Caballero DO at [facility] L-/S-SPINE PARAVERTEBRL FACET INJ,2 LEVELS 02/09/2019 L-/S-SPINE PARAVERTEBRAL FACET INJ, 2 LEVELS performed by Chris Caballero DO at [facility] LUMBAR DISC ARTHROPLAST,REMV,ADDL INTERSPCE 01/2010 Dr Potts LUMBAR SPINE FUSION W/BONE GRAFT 02/23/2005 Dr. Potts - [facility] LUMBAR SPINE FUSION W/BONE GRAFT 07/19/2016 Dr. Potts - [facility] MAMMOGRAM SCREENING-BILATERAL 02/1999 REMOVAL OF OVARY/OVIDUCT(S) 18 yo right REMOVE CATARACT, INSERT LENS PROSTH 12/2004 bilateral - [facility] REMOVE GALLBLADDER REVERSE TOTAL SHOULDER ARTHROPLASTY Left 09/29/2020 [facility] [place] SACROILIAC JOINT INJECT W/GUIDANCE 11/13/2018 INJECTION SACROILIAC JOINT performed by Chris Caballero DO at OR [facility] SACROILIAC JOINT INJECT W/GUIDANCE 12/11/2018 INJECTION SACROILIAC JOINT performed by Chris Caballero DO at OR [facility] SHOULDER ARTHROSCOPY/SURGERY 06/07/2010 [facility] - [facility]- right shoulder repair SPINAL FUSION, LUMBAR, COMBINED 07/19/2016 Dr. Potts- [facility] TOTAL ABD HYSTERECTOMY W/WO REMOVAL OF TUBE(S) 26 yo one ovary still in VERTEBRAL ARTERY CATHETER PLACEMENT Bilateral 03/27/2024 CATHETER PLACEMENT VERTEBRAL ARTERY, performed by Yann Jackson MD at [facility] VERTEBRAL ARTERY CATHETER PLACEMENT Bilateral 04/15/2024 CATHETER PLACEMENT VERTEBRAL ARTERY, performed by Yann Jackson MD at [facility] Review of patient's allergies indicates: Allergen Reactions [...] Vaping/E-Cigarette Devices ROS: -Per HPI OBJECTIVE: BP 124/62 | Pulse 84 | Temp 96 F (35.6 C) | Wt 159 lb 12.8 oz (72.5 kg) | SpO2 97% | BMI 27.43 kg/m | BSA 1.81 m PHYSICAL EXAM: Vitals are reviewed General:. NAD, well developed HEENT:. Normal Conjunctiva, EOMI Abd:. soft, ND, NT MSK:. Normal gait Psych:. AAOx3, normal affect ASSESSMENT/PLAN: VSS Abd exam normal Pt denied black stool Will do cbc today GI referral Hospital discharge follow-up (Primary) - DISCH MED RECON CUR MED LIS Carotid-cavernous fistula Thromboembolus (HCC) PAD (peripheral artery disease) (HCC) Gastrointestinal hemorrhage, unspecified gastrointestinal hemorrhage type - ADULT GASTROENTEROLOGY REFERRAL OP - CBC WITH WBC DIFFERENTIAL I spent a total of 40-54 minutes (exact time 44 mins) on the date of service in preparation, delivery, and documentation of the care provided to Josefa Ramírez excluding any time spent in the performance of separately billed services or time spent by another provider/QHP. Bharati Wang MD Family medicine, [address] [address] documented in this encounter Nursing Notes * Sandra Recinos CMA - 07/07/2024 1:17 PM EST She is here for a follow up from the hospital. She was admitted for a GI bleed to [facility]. She is still have dark brown stools. documented in this encounter Plan of Treatment Upcoming Encounters Date Type Department Care Team (Late st Contact Info) Description 07/14/2024 2:30 PM EST Office Visit Gastroenterology, [facility] [address] [facility] [place] [address] Jane Abreu CRNP [address] [place] [address] 08/25/2024 10:00 AM EDT Office Visit Family Medicine [address] [phone] Bharati Wang MD [address] [place] [address] [place] [address] 09/10/2024 11:30 AM EDT Office Visit Neurosurgery, [address] [address] Yann Jackson MD [address] [place] [address] 09/18/2024 12:00 PM EDT Appointment Vascular Lab [facility] [address] [place] [address] 09/18/2024 12:30 PM EDT Appointment Vascular Lab [place] [address] [place] [address] 09/18/2024 1:20 PM EDT Office Visit Vascular Surg [facility] [address] [place] [address] Samson Dennis MD [address] [place] [address] Pending Results Name Type Priority Associated Diagnoses Date /Time CBC WITH WBC DIFFERENTIAL Lab Routine Gastrointestinal hemorrhage, unspecified gastrointestinal hemorrhage type 07/07/2024 1:51 PM EST CBC Lab Routine Gastrointestinal hemorrhage, unspecified gastrointestinal hemorrhage type 07/07/2024 1:51 PM EST DIFFERENTIAL, AUTOMATED Lab Routine Gastrointestinal hemorrhage, unspecified gastrointestinal hemorrhage type 07/07/2024 1:51 PM EST Scheduled Procedures Name Priority Associated Diagnoses Date/Ti ca ESOPHAGOGASTRODUODENOSCOPY ( EGD), FLEXIBLE, TRANSORAL, DIAGNOSTIC Recall Contreras esophagus Scheduled Referrals Name Type Priority Associated Diagnoses Orde r Schedule ADULT GASTROENTEROLOGY REFERRAL OP Referral Within 30 days (routine) Gastrointestinal hemorrhage, unspecified gastrointestinal hemorrhage type Ordered: 07/07/2024 Health Maintenance Due Date Last Done Comments [...] D LEVEL ONCE IN A LIFETIME-USE SMARTSET# [id number] Completed 02/12/2018, 04/25/2015, 09/24/2014, Additional history exists [...] this encounter Medical Devices Implanted Type Area Portrait Photographer Device Identifier Shelf Expiration Date Model / Serial / Lot Coil Target 3d [id number] - [id number] Implanted:Qty : 1 on 04/15/2024 by Yann Jackson MD at [facility] N/A: Head ANNAMARIA : NEUROVASCULAR [id number] 12/16/2024 [id number] / / [id number] 6cm, Coil Swiftpac Implanted:Qty : 1 on 04/15/2024 by Yann Jackson MD at [facility] N/A: Head [employer] 12/16/2028 [id number] / / [id number] 45cm, Coil Swiftpac Implanted:Qty : 1 on 04/15/2024 by Yann Jackson MD at [facility] N/A: Head [employer] 12/16/2028 [id number] / / [id number] 60cm, Coil Swiftpac Implanted:Qty : 1 on 04/15/2024 by Yann Jackson MD at [facility] N/A: Head [employer] 11/02/2028 [id number] / / [id number] Coil Target 3d [id number] - [id number] Implanted:Qty : 1 on 04/15/2024 by Yann Jackson MD at [facility] N/A: Head ANNAMARIA : NEUROVASCULAR [id number] 12/24/2024 [id number] 60 / / [id number] Coil Target 360 Soft [id number] - [id number] Implanted:Qty : 1 on 04/15/2024 by Yann Jackson MD at [facility] N/A: Head ANNAMARIA : NEUROVASCULAR [id number] 06/23/2025 [id number] 00 / / [id number] Coil Target 360 Ultra [id number] - [id number] Implanted:Qty : 1 on 04/15/2024 by Yann Jackson MD at [facility] N/A: Head ANNAMARIA : NEUROVASCULAR [id number] 05/04/2026 [id number] / / [id number] Coil Target 360 Ultra [id number] - [id number] Implanted:Qty : 1 on 04/15/2024 by Yann Jackson MD at [facility] N/A: Head ANNAMARIA : NEUROVASCULAR [id number] 02/03/2025 [id number] 80 / / [id number] 10cm, Coil Swiftpac Implanted:Qty : 2 on 04/15/2024 by Yann Jackson MD at [facility] N/A: Head [employer] 12/24/2028 [id number] / / [id number] 30cm, Coil Swiftpac Implanted:Qty : 1 on 04/15/2024 by Yann Jackson MD at [facility] N/A: Head [employer] 12/24/2028 [id number] / / [id number] 60cm, Coil Swiftpac Implanted:Qty : 1 on 04/15/2024 by Yann Jackson MD at [facility] N/A: Head [employer] 11/02/2028 [id number] / / [id number] 6cm, Coil Swiftpac Implanted:Qty : 1 on 04/15/2024 by Yann Jackson MD at [facility] N/A: Head [employer] 12/16/2028 [id number] / / [id number] Stent Vasc Hep [id number] - [id number] Implanted:Qty : 1 on 04/16/2024 by Samson Dennis MD at [facility] Left: Iliac [employer] [id number] 12/29/2026 [id number] / [id number] / [id number] documented as of this encounter Visit Diagnoses Diagnosis Hospital discharge follow-up- Primary Other follow-up examination Carotid-cavernous fistula Arteriovenous fistula, acquired Thromboembolus (HCC) Embolism and thrombosis of unspecified artery PAD (peripheral artery disease) (HCC) Peripheral vascular disease, unspecified Gastrointestinal hemorrhage, unspecified gastrointestinal hemorrhage type documented in this encounter Advance Directives * [...] Discussed due to patient's condition Care Teams Supply Chain Buyer Relationship Specialty Start Date End Date Bharati Wang MD [address] [place] [address] [place] [phone] PCP - General Family Medicine 10/02/21 documented as of this encounter"
--- OUTSIDE RECORDS SUMMARY | 2024-07-09 00:23 | External Medical Summary | Summary of Care ---
Author Name Unknown Organization [facility] Address [address] [place] [address] Phone [phone] Care Team Providers Care Clinical Product Manager Name Role Phone Bharati Wang MD Primary Care Provide r Reason for Visit * Reason Comments Outpatient Testing Encounter Details Date Type Department Care Team (Late st Contact Info) Description 07/07/2024 2:00 PM EST Laboratory Laboratory [address] [place] [phone] [place] [address] Arrived Allergies Active Allergy Reactions Criticality Noted [...] 4 Active Lisinopril 20 MG Oral Tablet (Prinivil)Indic ations:HTN, goal below 140/90 Take 1 Tablet by mouth in the morning. 90 Tablet 1 5 Active Eliquis 5 MG Oral Tablet (Apixaban)Indic ations:Carotid- cavernous fistula,Thrombo embolus (HCC) Take 1 Tablet by mouth in the morning and 1 Tablet before bedtime. 180 Tablet 5 Active Pantoprazole Sodium 40 MG Oral Packet (Protonix) Administer 40 mg into feeding tube in the morning and 40 mg before bedtime. Active documented as of this encounter (statuses [...] fracture of humerus 08/07/2019 01/22/2024 Overview (08/10/2019): [facility] Bilateral sciatica 06/01/2019 Spasm of muscle [...] at prior appointment. BENIGN HYPERTENSION 03/26/2005 04/01/20 Overview (04/01/2009): Modified per HTN Taxonomy. Diverticulosis [...] No 04/20/2024 Does the household have a [facility] source of income? 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 Not on file Not on file Not on file documented as of this encounter Plan of Treatment Upcoming Encounters Date Type Department Care Team (Late st Contact Info) Description 07/14/2024 2:30 PM EST Office Visit Gastroenterology, [facility] [address] [place] [address] Jane Abreu CRNP [address] [place] [address] 08/25/2024 10:00 AM EDT Office Visit Family Medicine [facility] [place] [place] [phone] Bharati Wang MD [address] [place] [address] [place] [address] 09/10/2024 11:30 AM EDT Office Visit Neurosurgery, [place] [address] [place] [address] Yann Jackson MD [facility] [place] [phone] 09/18/2024 12:00 PM EDT Appointment Vascular Lab [place] [address] [place] [address] 09/18/2024 12:30 PM EDT Appointment Vascular Lab [address] [address] 09/18/2024 1:20 PM EDT Office Visit Vascular [place] [address] [place] [address] Samson Dennis MD [address] [place] [phone] Scheduled Procedures Name Priority Associated Diagnoses Date/Ti [...] D LEVEL ONCE IN A LIFETIME-USE SMARTSET# [id number] Completed 02/12/2018, 04/25/2015, 09/24/2014, Additional history exists [...] this encounter Medical Devices Implanted Type Area Vaccines Solutions Specialist Device Identifier Shelf Expiration Date Model / Serial / Lot Coil Target 3d [id number] - [id number] Implanted:Qty : 1 on 04/15/2024 by Yann Jackson MD at [place] [facility] N/A: Head ANNAMARIA : NEUROVASCULAR [id number] 12/16/2024 [id number] 60 / / [id number] 6cm, Coil Swiftpac Implanted:Qty : 1 on 04/15/2024 by Yann Jackson MD at [place] [facility] N/A: Head [employer] 12/16/2028 [id number] / / [id number] 45cm, Coil Swiftpac Implanted:Qty : 1 on 04/15/2024 by Yann Jackson MD at [facility] N/A: Head [employer] 12/16/2028 [id number] / / [id number] 60cm, Coil Swiftpac Implanted:Qty : 1 on 04/15/2024 by Yann Jackson MD at [facility] N/A: Head [employer] 11/02/2028 [id number] / / [id number] Coil Target 3d [id number] - [id number] Implanted:Qty : 1 on 04/15/2024 by Yann Jcakson MD at [place] [facility] N/A: Head ANNAMARIA : NEUROVASCULAR [id number] 12/24/2024 [id number] 60 / / [id number] Coil Target 360 Soft [id number] - [id number] Implanted:Qty : 1 on 04/15/2024 by Yann Jackson MD at [facility] N/A: Head ANNAMARIA : NEUROVASCULAR [id number] 06/23/2025 [id number] 00 / / [id number] Coil Target 360 Ultra [id number] - [id number] Implanted:Qty : 1 on 04/15/2024 by Yann Jackson MD at [facility] N/A: Head ANNAMARIA : NEUROVASCULAR [id number] 05/04/2026 [id number] 00 / / [id number] Coil Target 360 Ultra [id number] - [id number] Implanted:Qty : 1 on 04/15/2024 by Yann Jackson MD at [facility] N/A: Head ANNAMARIA : NEUROVASCULAR [id number] 02/03/2025 [id number] 80 / / [id number] 10cm, Coil Swiftpac Implanted:Qty : 2 on 04/15/2024 by Yann Jackson MD at [facility] N/A: Head [employer] 12/24/2028 [id number] / / [id number] 30cm, Coil Swiftpac Implanted:Qty : 1 on 04/15/2024 by Yann Jackson MD at [facility] N/A: Head [employer] 12/24/2028 [id number] / / [id number] 60cm, Coil Swiftpac Implanted:Qty : 1 on 04/15/2024 by Yann Jackson MD at [facility] N/A: Head [employer] 11/02/2028 [id number] / / [id number] 6cm, Coil [employer]pac Implanted:Qty : 1 on 04/15/2024 by Yann Jackson MD at [facility] N/A: Head [employer] 12/16/2028 [id number] / / [id number] Stent Vasc Hep 8mmx7.7i504mn - [id number] Implanted:Qty : 1 on 04/16/2024 by Samson Dennis MD at [place] [facility] Left: Iliac [employer] [id number] 12/29/2026 [id number] / [id number] / [id number] documented as of this encounter Advance Directives [...] Discussed due to patient's condition Care Teams Clinical Product Manager Relationship Specialty Start Date End Date Bharati Wang MD [address] [place] [address] [place] [address] PCP - General Family Medicine 10/02/21 documented as of this encounter
--- OUTSIDE RECORDS SUMMARY | 2024-07-09 00:23 | External Medical Summary ---
Author Name Unknown Address Unknown Organization K01:[facility] - [address] [place] [address] Laboratory Report Ordering Provider Test Date Status BAUTISTA KELLY 07/07/2024 13:51:08 Negra l Observation Date Value Abnormality Reference (Units ) Status WBC, Total 07/07/2024 13:51:08 7.18 4.00-10.80 (K/uL) Final RBC 07/07/2024 13:51:08 3.70 3.85-5.15 (M/uL) Final Hemoglobin 07/07/2024 13:51:08 10.3 Below low normal 12.0-15.3 (g/dL) Final HCT 07/07/2024 13:51:08 34.5 Below low normal 36.0-45.2 (%) Final MCV 07/07/2024 13:51:08 93.2 81.5-97.5 (fL) Final MCH 07/07/2024 13:51:08 27.8 27.0-34.0 (pg) Final MCHC 07/07/2024 13:51:08 29.9 32.0-36.0 (g/dL) Final RDW 07/07/2024 13:51:08 15.2 11.5-15.5 (%) Final Platelets 07/07/2024 13:51:08 285 140-400 (K/uL) Final MPV 07/07/2024 13:51:08 10.5 6.6-11.1 (fL) Final Nucleated erythrocytes/100 leukocytes [Ratio] in Blood by Automated count 07/07/2024 13:51:08 0 <=0 (/100 WBCs) Final Performing Location [facility] - [address] [place] [address]
[2024-07-09 01:51] LABS: Hematocrit (blood only) 24.2 % (37.0-47.0); Hemoglobin 7.5 g/dl (12.0-16.0)
[2024-07-09 06:27] LABS: Basophils # (auto) 0.04 K/uL (0.00-0.20); Basophils % (auto) 0.9 %; Eosinophils # (auto) 0.14 K/uL (0.00-0.50); Eosinophils % (auto) 3.1 %; Hematocrit (blood only) 25.5 % (37.0-47.0); Hemoglobin 7.8 g/dl (12.0-16.0); Immature Granulocytes # (auto) 0.02 K/uL (0.01-0.20); Immature Granulocytes % (auto) 0.4 %; Lymphocytes % (auto) 35.6 %; Mean Corpuscular Hemoglobin 27.1 pg (25.0-34.0); Mean Corpuscular Hgb Conc 30.6 g/dL (32.0-36.0); Mean Corpuscular Volume 88.5 fL (80.0-100.0); Monocytes # (auto) 0.48 K/uL (0.11-0.59); Monocytes % (auto) 10.7 %; Neutrophils # (auto) 2.22 K/uL (1.40-6.50); Neutrophils % (auto) 49.3 %; Platelet Count 227 K/uL (130-400); RDW Coefficient of Variation 15.2 % (11.5-14.5); RDW Standard Deviation 48.9 fL (36.4-46.3); Red Blood Count 2.88 M/uL (4.20-5.40)
[2024-07-09 06:52] LABS: RBC Morphology Unremarkable
[2024-07-09 06:53] LABS: BUN Creatinine Ratio 22.8 (10-20); Calcium 8.6 mg/dl (8.6-10.3); Creatinine Clr Calc Pharmacy 33.9 ml/min; Potassium 4.5 mmol/L (3.5-5.1)
[2024-07-09] MEDS: amLODIPine BESYLATE 5 MG TAB PO SCH (08:17)
[2024-07-09] MEDS: ACETAMINOPHEN 325 MG TAB PO PRN (08:17)
[2024-07-09] MEDS: ROSUVASTATIN CALCIUM 20 MG TAB PO SCH (08:17)
--- NOTE | 2024-07-09 09:54 | Gastrointestinal Consultation ---
Date of Consultation July 09, 2024 Assessment & Plan (1) GI bleed: -Continue to monitor H/H. -Continue IV PPI gtt. -Continue to hold Eliquis & Plavix today. -Will give bowel prep this morning until noon. At noon she would be strictly NPO for further investigation with EGD/colonoscopy this afternoon. -Hospitalist team has consented patient in the event she needs a blood transfusion. Supervising Physician Co-Signing Physician Notes Melena and hematochezia. Upper endoscopy. If negative colonoscopy. Patient is closer to 24-hour post Eliquis. She is on Plavix. This typically requires a 5- day hold. This patient with active bleeding is not going to wait 5 days. Proceed with evaluation today. Risk benefits were explained informed consent obtained. History of Present Illness Reason for Consultation: BRBPR Requesting Physician: Hospitalist team Attending Physician: Danna Stark MD History of Present Illness Patient is an 88 yo female with PMH of acute left limb ischemia s/p iliac thromboembolectomy with external iliac stent grafting on 04/16/2024 as well as prior retroperitoneal hemorrage at that time. She was recently hospitalized for melena on Eliquis/Plavix and was seen by GI where she deferred endoscopic evaluation. She had a CT during that admission that showed resolution of the prior retroperitoneal hemorrhage. She was discharged on a PPI and notes that she returned to the hospital again due to ongoing bleeding. She notes to me that she has no abdominal pain, rectal pain, dizziness, constipation, or diarrhea. She has a history of a hemorrhoidectomy but has not struggled with hemorrhoids recently. She notes she continues to alternate between dark stools and bright red stools. She did take her Plavix & Eliquis on 07/08/24. She is NPO today. H/H presently 7.8/25.5 which is a drop from her previous studies during her last admission. BUN/Cr within normal range. INR 1.0. She is a smoker. She denies pertinent GI history personally or in her family. CT of the abdomen/pelvis indicates: Impression: 1. No sign of abdominal aortic aneurysm or dissection 2. No definite sign of renal or mesenteric artery stenosis 3. Mild stenoses of the left common iliac artery and the internal iliac arteries bilaterally 4. Patent stent in the left external iliac artery 5. 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 There is an apparent small focal dissection of the right external iliac artery as well 6. Mild stenosis of the left HOUSING CASE MANAGER 7. Unchanged left renal calculus, left renal cortical scarring, and bilateral renal cysts 8. Hepatic cyst 9. Diverticulosis without evidence of diverticulitis Electronically signed by Papo Joseph 07-08-2024 6:41 PM Allergies Allergy/AdvReac Type Severity Reaction Status Date / Time imipenem Allergy Severe Dyspnea Verified 07/03/24 19:56 meropenem Allergy Severe Dyspnea Verified 07/03/24 19:56 penicillamine Allergy Severe Dyspnea Verified 07/03/24 19:56 ranitidine Allergy Severe Dyspnea Verified 07/03/24 19:56 ampicillin Allergy Intermediate Dyspnea, Verified 07/03/24 19:56 hives azithromycin Allergy Intermediate Hives, Verified 07/03/24 19:56 angioedema Cephalosporins Allergy Intermediate Hives Verified 07/03/24 19:56 cilastatin Allergy Intermediate Dyspnea Verified 07/03/24 19:56 Macrolide Antibiotics Allergy Intermediate Hives, Verified 07/03/24 19:56 angioedema Penicillins Allergy Intermediate Hives Verified 07/03/24 19:56 adhesive Allergy Mild Rash Verified 07/03/24 19:56 Carbapenems Allergy Unknown Dyspnea Verified 07/03/24 19:56 Home Medications Medication Instructions Recorded Confirmed Type cyanocobalamin (vitamin B-12) 1,000 mcg PO QDL 12/14/18 07/08/24 History 1,000 mcg tablet (Vitamin B-12) fluticasone propionate 50 2 spray intranasal QAM PRN Nasal 12/14/18 07/08/24 History mcg/actuation nasal Congestion spray,suspension rosuvastatin 20 mg tablet (Crestor) 20 mg PO QAM 11/12/19 07/08/24 History cholecalciferol (vitamin D3) 25 25 mcg PO QDL 05/05/20 07/08/24 History mcg (1,000 unit) chewable tablet (Vitamin D3) acetaminophen 500 mg tablet 500 mg PO QID PRN Pain 02/27/22 07/08/24 History (Tylenol Extra Strength) docusate sodium 50 mg capsule 50 mg PO DAILY PRN Constipation 03/28/22 07/08/24 History (Stool Softener) amlodipine 5 mg tablet 5 mg PO QAM 04/21/24 07/08/24 History apixaban 5 mg tablet (Eliquis) 5 mg PO AMHS 04/21/24 07/08/24 History clopidogrel 75 mg tablet 75 mg PO QAM 04/21/24 07/08/24 History lisinopril 20 mg tablet 20 mg PO QAM 07/03/24 07/08/24 History pantoprazole 40 mg tablet,delayed 40 mg PO BID #60 tabs 07/05/24 07/08/24 Rx release Patient History Medical History Elevated hemidiaphragm L History of GI bleed 2020- DIRECTLY AFTER SHOULDER SURGERY History of COVID-19 10/2021 cough- no hospitalization, no current issues Post-traumatic osteoarthritis, left shoulder Chronic constipation Hx of cancer of uterus s/p hysterectomy with USO Carotid stenosis 50-69% right sided stenosis per 09/2018 doppler report but personal review of imaging by vascular felt that carotid artery stenosis <50% b/l - advised by vascular to f/u PRN; denies dizziness, lightheadedness, visual changes, headaches or syncope History of left shoulder fracture 07/2019 - medically managed until this upcoming surgery Surgical History History of esophagogastroduodenoscopy (EGD) Fusion of spine Left SI joint fusion: 06/14/2020: Grade 2 view, MAC 3.0, ETT 7.0 at [facility] Hx of tooth extraction Hx of surgical procedure Right SI joint fusion History of cataract surgery R/L History of colonoscopy History of surgery "Windpipe growth" removal History of tonsillectomy H/O hemorrhoidectomy History of appendectomy History of cholecystectomy H/O: hysterectomy + USO Hx of fusion of cervical spine History of lumbar fusion Family History Other Heart disease Social History Smoking Status: Current every day smoker Tobacco Type: Cigarettes Cigarettes Per Day: 10; Second Hand Exposure: No; Do You Dip or Chew Tobacco: No; Hx Alcohol Use: No Hx Substance Use: No Preferred Language: Kinyarwanda Communication Ability: Effective Activities Volunteer Required: No Beliefs That Will Affect Care: None marital status: Current Living Situation: Spouse Other Information That Helps Us Care for You: No Feels Safe at Home: Yes Safety Concerns: Feels Safe At This Time Assistive Devices: None Review of Systems Constitutional: no fever and no chills Respiratory: no dyspnea on exertion Cardiovascular: no chest pain Gastrointestinal: + blood in stools and + melena; no abdom inal pain Physical Exam Constitutional: well developed Respiratory: normal respiratory effort Cardiovascular: Rate/Rhythm: regular rate Gastrointestinal (Abdomen): normal bowel sounds, soft, nontender, no hepatosplenomegaly Results & Data Vital Signs (Past 12 Hours) Vital Signs Temp Pulse Pulse Resp BP Pulse Ox O2 Del Method 07/09/24 07:48 36.6 C 71 18 110/67 93 Room Air 07/09/24 07:27 66 07/09/24 03:52 36.6 C 70 16 116/57 L 96 Room Air 07/08/24 23:25 36.5 C 71 16 120/57 L 97 Room Air 07/08/24 22:00 69 PG Care Time/CCT Total # of Minutes Spent Total Time Spent with Patient: Total time spent is greater than 50% in coordination of care (as documented) at patient's floor/unit and/or counseling patient: Coding Level of Care Code 84866 INT INP/OBS CARE 3/75MIN Diagnoses GI bleed K92.2
[2024-07-09] MEDS: LAVAGE SOLUTION 4000ML PO STA (10:08)
--- NOTE | 2024-07-09 10:38 | Hospitalist Progress Note ---
Date of Service July 09, 2024 Assessment & Plan (1) Diverticular hemorrhage: (2) Acute blood loss anemia: (3) Acute renal failure superimposed on stage 3 chronic kidney disease: (4) PAD (peripheral artery disease): (5) Hypertension: (6) CKD (chronic kidney disease), stage III: (7) COPD (chronic obstructive pulmonary disease): Plan 88-year-old female with history significant for coil embolization of carotid carvenous fistula on 04/15/24 at [facility] complicated by acute lower ext ischemia requiring abdominal aortogram, LLE angiography and open left iliac catheter thromboembolectomy via groin incision, left ext iliac stent grafting of dissection flap on 04/16/24 and has been on plavix and eliquis; recently hospitalized here 07/03/24-07/05/24 for GI bleed who presents with BRBPR Acute GI bleed Acute blood loss anemia Abd CTA did not show any new changes/acute change Hb trending down compared to Hb on recent discharge Hb is 7.8 this AM Monitor Hb Will follow up GI for possible scope Continue to hold Eliquis and Plavix In view of recent vascular procedure, I called transfer center to consult with Vascular at [facility] about patient. Awaiting call back Will need recommendation regarding antiplatelet/AC after GI bleed is controlled and further recs Had JACQUIE on admission with Cr of 1.26 Cr improved to 1.01 today Continue to hold home lisinopril Code status: Full DVT ppx: No pharmacological DVT ppx as above I spent a total of 65 minutes coordinating, documenting and providing care for this patient excluding time spent in performance of separately billed services Admission and Anticipated Discharge Date Admission Date: July 08, 2024 Subjective Patient seen and examined No BM since admission Last BM was bloody prior to presentation Denied any dizziness, SOB/MULLIGAN, chest pain, cough, abd pain, nausea, vomiting Physical Exam Constitutional: + well hydrated; no acute distress Eyes: PERRL, conjunctivae normal, anicteric sclerae ENMT: external ear and nose normal, oropharynx normal Respiratory: normal respiratory effort, lungs clear to auscultation Cardiovascular: Rate/Rhythm: regular rate and regular rhythm Gastrointestinal (Abdomen): normal bowel sounds, soft, nontender, no hepatosplenomegaly Neurologic: PERRL, EOMI, accommodation nl, no face palsy, no dysarthria Psychiatric: A+Ox3, euthymic affect Results & Data Results & Data Vital Signs (Past 12 Hours) Vital Signs Temp Pulse Pulse Resp BP Pulse Ox O2 Del Method 07/09/24 07:48 36.6 C 71 18 110/67 93 Room Air 07/09/24 07:27 66 07/09/24 03:52 36.6 C 70 16 116/57 L 96 Room Air 07/08/24 23:25 36.5 C 71 16 120/57 L 97 Room Air Laboratory Results Abnormal lab results 07/08/24 07/08/24 07/09/24 Range/Units 15:17 15:29 01:21 WBC (4.8-10.8) K/ul RBC 3.26 L (4.20-5.40) M/uL Hgb 8.9 L 7.5 L (12.0-16.0) g/dl Hct 28.8 L 24.2 L (37.0-47.0) % MCHC 30.9 L (32.0-36.0) g/dL RDW Std Deviation 48.5 H (36.4-46.3) fL RDW Coeff of Devi 15.1 H (11.5-14.5) % Chloride 109 H (98-107) mmol/L BUN 28 H (6-23) mg/dl Creatinine 1.26 H (0.6-1.2) mg/dl BUN/Creatinine Ratio 22.2 H (10-20) Glucose 126 H (70-99(Fasting)) mg/dl POC Stool Occult Blood Positive A (Negative) 07/09/24 Range/Units 05:48 WBC 4.50 L (4.8-10.8) K/ul RBC 2.88 L (4.20-5.40) M/uL Hgb 7.8 L (12.0-16.0) g/dl Hct 25.5 L (37.0-47.0) % MCHC 30.6 L (32.0-36.0) g/dL RDW Std Deviation 48.9 H (36.4-46.3) fL RDW Coeff of Devi 15.2 H (11.5-14.5) % Chloride 111 H (98-107) mmol/L BUN (6-23) mg/dl Creatinine (0.6-1.2) mg/dl BUN/Creatinine Ratio 22.8 H (10-20) Glucose (70-99(Fasting)) mg/dl POC Stool Occult Blood (Negative)
--- NOTE | 2024-07-09 11:01 | Anesthesiology Consultation ---
Date of Service July 09, 2024 Assessment & Plan (1) Encounter for pre-operative examination: Chart Review Chart Review: Acceptable Risk for Surgery, Patient NOT seen in Pre Admission Testing and heading repairer initiated Consults Requested none Proposed Anesthesia Anesthesia Type: MAC History Surgery Operation Date: 07/09/24 17:00 Proposed Procedures p Colonoscopy EGD Dr. Kenyon Prescott MD Height/Weight Height: 5 ft 4 in Weight: 60.4 kg Allergies Allergy/AdvReac Type Severity Reaction Status Date / Time imipenem Allergy Severe Dyspnea Verified 07/03/24 19:56 meropenem Allergy Severe Dyspnea Verified 07/03/24 19:56 penicillamine Allergy Severe Dyspnea Verified 07/03/24 19:56 ranitidine Allergy Severe Dyspnea Verified 07/03/24 19:56 ampicillin Allergy Intermediate Dyspnea, Verified 07/03/24 19:56 hives azithromycin Allergy Intermediate Hives, Verified 07/03/24 19:56 angioedema Cephalosporins Allergy Intermediate Hives Verified 07/03/24 19:56 cilastatin Allergy Intermediate Dyspnea Verified 07/03/24 19:56 Macrolide Antibiotics Allergy Intermediate Hives, Verified 07/03/24 19:56 angioedema Penicillins Allergy Intermediate Hives Verified 07/03/24 19:56 adhesive Allergy Mild Rash Verified 07/03/24 19:56 Carbapenems Allergy Unknown Dyspnea Verified 07/03/24 19:56 Medications Home Medications Medication Instructions Recorded Confirmed Last Taken cyanocobalamin (vitamin B-12) 1,000 mcg PO QDL 12/14/18 07/08/24 07/07/24 1,000 mcg tablet (Vitamin B-12) fluticasone propionate 50 2 spray intranasal QAM PRN Nasal 12/14/18 07/08/24 07/02/24 08:00 mcg/actuation nasal Congestion spray,suspension rosuvastatin 20 mg tablet (Crestor) 20 mg PO QAM 11/12/19 07/08/24 07/08/24 cholecalciferol (vitamin D3) 25 25 mcg PO QDL 05/05/20 07/08/24 07/07/24 mcg (1,000 unit) chewable tablet (Vitamin D3) acetaminophen 500 mg tablet 500 mg PO QID PRN Pain 02/27/22 07/08/24 Unknown (Tylenol Extra Strength) docusate sodium 50 mg capsule 50 mg PO DAILY PRN Constipation 03/28/22 07/08/24 03/27/22 07:00 (Stool Softener) amlodipine 5 mg tablet 5 mg PO QAM 04/21/24 07/08/24 07/08/24 apixaban 5 mg tablet (Eliquis) 5 mg PO AMHS 04/21/24 07/08/24 07/08/24 am clopidogrel 75 mg tablet 75 mg PO QAM 04/21/24 07/08/24 07/08/24 lisinopril 20 mg tablet 20 mg PO QAM 07/03/24 07/08/24 07/08/24 pantoprazole 40 mg tablet,delayed 40 mg PO BID #60 tabs 07/05/24 07/08/24 07/08/24 release am Active Medications Generic Name Dose Route Start Last Admin Trade Name Freq PRN Reason Stop Dose Admin Acetaminophen 650 mg 07/08/24 21:11 07/09/24 08:17 Acetaminophen 325 Mg Tab PO 08/07/24 21:10 650 mg Q4H PRN Administration Pain or Fever Amlodipine Besylate 5 mg 07/09/24 09:00 07/09/24 08:17 Amlodipine Besylate 5 Mg Tab PO 08/08/24 08:59 5 mg QAM HUNTER Administration Pantoprazole Sodium 40 mg 07/08/24 21:11 07/09/24 08:17 Pantoprazole 40 Mg Tab PO 08/07/24 21:10 40 mg BID HUNTER Administration Rosuvastatin Calcium 20 mg 07/09/24 09:00 07/09/24 08:17 Rosuvastatin Calcium 20 Mg Tab PO 08/08/24 08:59 20 mg QAM HUNTER Administration Past Medical History Medical History Elevated hemidiaphragm L History of GI bleed 2020- DIRECTLY AFTER SHOULDER SURGERY History of COVID-19 10/2021 cough- no hospitalization, no current issues Post-traumatic osteoarthritis, left shoulder Chronic constipation Hx of cancer of uterus s/p hysterectomy with USO Carotid stenosis 50-69% right sided stenosis per 09/2018 doppler report but personal review of imaging by vascular felt that carotid artery stenosis <50% b/l - advised by vascular to f/u PRN; denies dizziness, lightheadedness, visual changes, headaches or syncope History of left shoulder fracture 07/2019 - medically managed until this upcoming surgery Past Family History Family History Other Heart disease Past Surgical History Surgical History History of esophagogastroduodenoscopy (EGD) Fusion of spine Left SI joint fusion: 06/14/2020: Grade 2 view, MAC 3.0, ETT 7.0 at [facility] Hx of tooth extraction Hx of surgical procedure Right SI joint fusion History of cataract surgery R/L History of colonoscopy History of surgery "Windpipe growth" removal History of tonsillectomy H/O hemorrhoidectomy History of appendectomy History of cholecystectomy H/O: hysterectomy + USO Hx of fusion of cervical spine History of lumbar fusion Social History Smoking Status: Current every day smoker tobacco type: cigarettes Smoking cigarettes per day: 10 Do You Dip or Chew Tobacco: No Hx Alcohol Use: No Hx Substance Use: No substance use type: does not use Physical Exam Vital Signs Last Vital Signs Temp 36.6 C 07/09/24 07:48 Pulse 71 07/09/24 07:48 Resp 18 07/09/24 07:48 BP 110/67 07/09/24 07:48 Pulse Ox 93 07/09/24 07:48 O2 Del Method Room Air 07/09/24 07:48 Testing Laboratory Results 07/09/24 05:48 07/09/24 05:48 PT 11.2 Seconds (9.0-12.0) 07/08/24 15:29 INR 1.0 (0.9-1.1) 07/08/24 15:29 APTT 25 Seconds (21-31) 07/08/24 15:29 Blood Type O Positive 07/08/24 15:29 Antibody Screen NEGATIVE 07/08/24 15:29 Electrocardiogram Date: 07/08/24 Findings: + NSR @ (83), + PA (Cannot R/O anterior infarct) and + no change from (07/03/24) Chest X-Ray Date: 04/21/24 CLINICAL HISTORY: Sepsis. COMPARISON STUDY: Chest radiograph March 06, 2022. FINDINGS: Postoperative findings within the spine and the left shoulder arthroplasty are incidentally noted. Low lung volumes are unchanged. There is no pneumothorax or pleural effusion. Cardiomediastinal silhouette is stable. There is mild interstitial thickening. Right lower lung densities favor atelectasis. Left basilar opacities are present. IMPRESSION: 1. Pulmonary vascular congestion with possible mild pulmonary edema. 2. Left lower lung opacities which could reflect pneumonia or atelectasis. Radiographic follow-up is recommended. 3. No change in low lung volumes.
[2024-07-09] MEDS: SODIUM CHLORIDE 0.9% 500 ML IV SCH (13:55)
--- NOTE | 2024-07-09 14:39 | Communication Note ---
Date of Service: July 09, 2024 EGD no blood to the ligament of Treitz. Clean upper GI tract. Colonoscopy. Severe diverticulosis. Required thin gastroscope to advance the cecum there were some blood-tinged fluid throughout the colon. There was no blood within the diverticular sacs. There was what appeared to be some fresh blood in the cecum. Extensive lavage showed that blood coming through the TI. The TI did show red blood without clots. Probable small bowel bleed likely AVMs. Source beyond the reach of the upper endoscope. Hold anticoagulation for now. Acute bleeding scan AM. Expect slow ooze.
--- NOTE | 2024-07-09 14:41 | GI REPORT ---
[facility] Patient: HOOD MALDONADO : 1935 Sex at : Female Age: 88 Years Procedure: Upper GI endoscopy Date: 07/09/2024 Attending Physician: David Prescott MD Referring MD: Danna Stark MD; Ramon Wang Md Indications: - Suspected upper gastrointestinal bleeding Medications: - Monitored Anesthesia Care Complications: - No immediate complications. Estimated Blood Loss: - Estimated blood loss: None. Procedure: - The egd scope was introduced through the mouth and advanced to the third part of the duodenum. - The upper GI endoscopy was accomplished without difficulty. - The patient tolerated the procedure well. Findings: - A small hiatal hernia was present. - The entire examined stomach was normal. - Scope advanced to the third part of the duodenum towards ligament of Treitz. No blood noted in the entire of the upper GI tract. No AVMs seen. Impression: - Small hiatal hernia. - Normal stomach. - Scope advanced to the third part of the duodenum towards ligament of Treitz. No blood noted in the entire of the upper GI tract. No AVMs seen. - No specimens collected. - No source of bleeding upper GI tract. Proceed with colonoscopy today. Recommendation: - Colonoscopy today Procedure Code(s): - 08506, Esophagogastroduodenoscopy, flexible, transoral; diagnostic, including collection of specimen(s) by brushing or washing, when performed (separate procedure) Diagnosis Code(s): - K44.9, Diaphragmatic hernia without obstruction or gangrene CPT(R) - 2022 copyright [employer]. All Rights Reserved. The CPT codes, CCI edits and ICD codes generated are intended as suggestions and were generated based on input data. These codes are preliminary and upon control cabinet assembler review may be revised to meet current compliance and payer requirements. The provider is responsible for the final determination of appropriate codes, and modifiers. David Prescott MD This document has been electronically signed. Note Initiated:07/09/2024 Note Completed:07/09/2024 2:41 PM \\[email or web address]\Central\InterfaceData\Data\Provation\Results\LIVE\[id number]
--- NOTE | 2024-07-09 14:45 | GI REPORT ---
[facility] Patient: HOOD MALDONADO : 1935 Sex at : Female Age: 88 Years Procedure: Colonoscopy Date: 07/09/2024 Attending Physician: David Prescott MD Referring MD: Danna Stark MD; Ramon Wang Md Indications: - Evaluation of unexplained GI bleeding presenting with Hematochezia Medications: - Monitored Anesthesia Care Complications: - No immediate complications. Estimated Blood Loss: - Estimated blood loss was minimal. Procedure: - The adult colonoscope was introduced through the anus and advanced to the terminal ileum, with identification of the appendiceal orifice and ileocecal valve. - The egd scope was introduced through the anus and advanced to the terminal ileum, with identification of the appendiceal orifice and ileocecal valve. - The colonoscopy was performed without difficulty. - The quality of the bowel preparation was good. Findings: - The perianal examination was normal. 3 small polyps identified in the colon not removed so as not to create a second source of bleeding. Patient also took anticoagulants up till yesterday. - Some pink-tinged prep solution throughout. No clots in the left colon. Severe diverticulosis precluding safe advancement of the regular colonoscope. Switch to EGD scope which could be advanced all the way to the cecum. Only area of there appeared to be fresh blood was in the cecum. Extensive lavage of the cecum did not reveal any AVMs. On direct visualization blood could be seen coming through the actual IC valve. Entering the terminal ileum red blood present. No bleeding source within the distal ileum. 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 No clots in the left colon. Severe diverticulosis precluding safe advancement of the regular colonoscope. Switch to EGD scope which could be advanced all the way to the cecum. Only area of there appeared to be fresh blood was in the cecum. Extensive lavage of the cecum did not reveal any AVMs. On direct visualization blood could be seen coming through the actual IC valve. Entering the terminal ileum red blood present. No bleeding source within the distal ileum. - No specimens collected. Recommendation: - Nuclear medicine study. Hold anticoagulation at present. May require outpatient video capsule endoscopy or small bowel enteroscopy if bleeding persist. Reconsider dual anticoagulation. At 88 I do not think the subcentimeter polyps require removal. Procedure Code(s): - 92436, Colonoscopy, flexible; diagnostic, including collection of specimen(s) by brushing or washing, when performed (separate procedure) Diagnosis Code(s): - K92.1, Melena (includes Hematochezia) CPT(R) - 2023 copyright [employer]. All Rights Reserved. The CPT codes, CCI edits and ICD codes generated are intended as suggestions and were generated based on input data. These codes are preliminary and upon tour manager review may be revised to meet current compliance and payer requirements. The provider is responsible for the final determination of appropriate codes, and modifiers. David Prescott MD This document has been electronically signed. Note Initiated:07/09/2024 Note Completed:07/09/2024 2:45 PM \\[email or web address]\[email or web address]\[id number]
--- NOTE | 2024-07-09 14:48 | Electrocardiogram Report ---
Test Reason : Blood Pressure : */* mmHG Vent. Rate : 83 BPM Atrial Rate : 83 BPM P-R Int : 146 ms QRS Dur : 72 ms QT Int : 360 ms P-R-T Axes : 8 -23 24 degrees QTcB Int : 423 ms Normal sinus rhythm Cannot rule out Anterior infarct (cited on or before 03-Jul-2024) Abnormal ECG When compared with ECG of 03-Jul-2024 16:38, No significant change was found Confirmed by Yamil Ramirez ([id number]) on 07/09/2024 2:48:01 PM Referred By: REFERRED SELF Confirmed By: Yamil Ramirez
--- NOTE | 2024-07-09 14:57 | Anesthesiology Progress Note ---
Date of Service July 09, 2024 Anesthesia Post Procedure Vital Signs Vital Signs: Temp Pulse Pulse Pulse Resp BP BP 07/09/24 14:55 65 18 126/63 07/09/24 14:40 36 C L 68 18 109/62 07/09/24 13:48 61 07/09/24 13:48 63 18 142/73 H 07/09/24 11:11 36.4 C L 61 18 104/64 07/09/24 07:48 36.6 C 71 18 110/67 07/09/24 07:27 66 07/09/24 03:52 36.6 C 70 16 116/57 L 07/08/24 23:25 36.5 C 71 16 120/57 L 07/08/24 22:00 69 07/08/24 21:12 36.7 C 71 18 129/71 07/08/24 20:52 74 07/08/24 20:03 71 22 07/08/24 20:02 75 07/08/24 19:35 75 20 114/54 L 07/08/24 15:14 36.8 C 87 19 105/63 Pulse Ox O2 Del Method 07/09/24 14:55 98 Room Air 07/09/24 14:40 96 Room Air 07/09/24 13:48 07/09/24 13:48 98 Room Air 07/09/24 11:11 100 Room Air 07/09/24 07:48 93 Room Air 07/09/24 07:27 07/09/24 03:52 96 Room Air 07/08/24 23:25 97 Room Air 07/08/24 22:00 07/08/24 21:12 97 Room Air 07/08/24 20:52 07/08/24 20:03 98 Room Air 07/08/24 20:02 07/08/24 19:35 96 Room Air 07/08/24 15:14 97 Room Air Transfer of Care Handoff Completed per policy Notes Mental Status: alert / awake / arousable and participated in evaluation Patient Amnestic to Procedure: Yes Nausea / Vomiting: adequately controlled Pain: adequately controlled Airway Patency, RR, SpO2: stable & adequate BP & HR: stable & adequate Hydration State: stable & adequate Anesthetic Complications: no major complications apparent
[2024-07-09 16:15] LABS: Hematocrit (blood only) 24.6 % (37.0-47.0); Hemoglobin 7.5 g/dl (12.0-16.0)
--- NOTE | 2024-07-09 16:26 | Communication Note ---
Date of Service: July 09, 2024 Reviewed findings with patient at the bedside and by phone. 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 Bleeding scan tomorrow to evaluate for potential source for bleeding proximal jejunum, or distal jejunum and proximal ileum which would not be reasonable typically. Potentially will need a video capsule endoscopy. Review blood thinners with treating physician. Can a single agent be used??
[2024-07-09] MEDS: LIDOCAINE 2% 2 ML VIAL/AMP(20MG/ML) INFIL ONE (16:57)
[2024-07-09] MEDS: PROPOFOL IV EMULSION 10 MG/ML 20 ML VIAL IV ONE (16:58)
--- NOTE | 2024-07-09 19:05 | Nuclear Medicine Report ---
EXAM: NM GI bleed tagged RBC study HISTORY: GI bleed TECHNIQUE: Tagged red blood cell study was obtained, utilizing Tc 99m pertechnetate. Planar images were obtained in coronal planes of the abdomen after multiple time points. COMPARISON: None. FINDINGS: No scintigraphic evidence for GI bleed IMPRESSION: No scintigraphic evidence for GI bleed. Electronically signed by Sumanth Conde 07-09-2024 7:05 PM
[2024-07-09 21:40] LABS: Hematocrit (blood only) 24.1 % (37.0-47.0); Hemoglobin 7.6 g/dl (12.0-16.0)
--- NOTE | 2024-07-10 10:45 | Hospitalist Progress Note ---
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 at [facility] complicated by acute lower ext ischemia requiring abdominal aortogram, LLE angiography and open left iliac catheter thromboembolectomy via groin incision, left ext iliac stent grafting of dissection flap on 04/16/24 and has been on plavix and eliquis; recently hospitalized here 07/03/24-07/05/24 for GI bleed who presents with BRBPR Acute GI bleed Acute blood loss anemia Abd CTA did not show any new changes/acute change Hb trending down compared to Hb on recent discharge EGD on 07/09/24 did not show active bleeding source Colonoscopy on 07/09/24 noted 3 small colonic polyps, diverticulosis. No active bleeding source seen. Only area that appeared to have fresh blood was in the cecum, with blood coming through IC valve and in terminal ileum without any source seen GI bleed nuclear scan on 07/09/24 did not show evidence of bleed Endoscopy findings suggest possible source of bleeding may be jejunum or proximal ileum not visualized on endoscopy Patient may need video capsule endoscopy Will monitor Hb for now Continue to hold Eliquis and Plavix In view of recent vascular procedure, I called transfer center yesterday and discussed with Vascular Sx at [facility]. We reviewed patient. He agrees with holding plavix and eliquis until bleeding stops and recommends patient may need only plavix going forward depending on outcome of endoscopies Had JACQUIE on admission with Cr of 1.26 Cr improved Continue to hold home lisinopril Code status: Full DVT ppx: No pharmacological DVT ppx as above I called and updated him I spent a total of 50 minutes coordinating, documenting and providing care for this patient excluding time spent in performance of separately billed services Admission and Anticipated Discharge Date Admission Date: July 08, 2024 Subjective Patient seen and examined No BM since after endoscopies yesterday Denied any complaints this AM Physical Exam Constitutional: + well hydrated; no acute distress Eyes: PERRL, conjunctivae normal, anicteric sclerae ENMT: external ear and nose normal, oropharynx normal Respiratory: normal respiratory effort, lungs clear to auscultation Cardiovascular: Rate/Rhythm: regular rate and regular rhythm Gastrointestinal (Abdomen): normal bowel sounds, soft, nontender, no hepatos plenomegaly Musculoskeletal: No pedal edema Neurologic: PERRL, EOMI, accommodation nl, no face palsy, no dysarthria Psychiatric: A+Ox3, euthymic affect Results & Data Results & Data Vital Signs (Past 12 Hours) Vital Signs Temp Pulse Pulse Resp BP Pulse Ox O2 Del Method 07/10/24 07:41 36.8 C 70 20 120/62 96 07/10/24 05:41 66 07/10/24 03:46 36.8 C 71 18 94/51 L 96 Room Air 07/09/24 23:34 36.7 C 70 18 95/48 L 96 Room Air 07/09/24 23:00 68 Laboratory Results Abnormal lab results 07/09/24 07/09/24 Range/Units 15:47 21:22 Hgb 7.5 L 7.6 L (12.0-16.0) g/dl Hct 24.6 L 24.1 L (37.0-47.0) %
[2024-07-10 10:50] LABS: Hematocrit (blood only) 25.3 % (37.0-47.0); Hemoglobin 7.8 g/dl (12.0-16.0); Mean Corpuscular Hemoglobin 27.1 pg (25.0-34.0); Mean Corpuscular Hgb Conc 30.8 g/dL (32.0-36.0); Mean Corpuscular Volume 87.8 fL (80.0-100.0); Mean Platelet Volume 9.9 fL (9.4-12.4); Platelet Count 228 K/uL (130-400); RDW Coefficient of Variation 14.8 % (11.5-14.5); RDW Standard Deviation 48.1 fL (36.4-46.3); Red Blood Count 2.88 M/uL (4.20-5.40); White Blood Count 3.92 K/ul (4.8-10.8)
[2024-07-10 11:00] LABS: BUN Creatinine Ratio 19.3 (10-20); Calcium 8.9 mg/dl (8.6-10.3); Creatinine Clr Calc Pharmacy 38.9 ml/min; Magnesium 1.8 mg/dl (1.7-2.4); Phosphorus 2.9 mg/dl (2.5-4.9)
--- NOTE | 2024-07-10 14:05 | Gastroenterology Progress Note ---
Date of Service July 10, 2024 Assessment & Plan (1) Anemia: (2) GI bleed: Plan -Decisions regarding anticoagulation/Plavix use to be coordinate with primary team and vascular -Continue PPI -Continue to monitor H/H -Will need outpatient VCE for further evaluation of small bowel Admission and Anticipated Discharge Date Admission Date: July 08, 2024 Subjective Patient is an 88 yo female with melena/hematochezia. Patient underwent an EGD & colonoscopy yesterday that showed blood in the cecum. H/H 7.8/25.3. BUN 17/Cr 0.88. NM GI bleed scan negative. No further GI bleeding. Review of Systems Gastrointestinal: no abdominal pain, no blood in stools and no melena Physical Exam Respiratory: normal respiratory effort Gastrointestinal (Abdomen): normal bowel sounds, soft, nontender, no hepatosplenomegaly Results & Data Results & Data Vital Signs (Past 12 Hours) Vital Signs Temp Pulse Pulse Resp BP Pulse Ox O2 Del Method 07/10/24 12:24 Room Air 07/10/24 11:14 37.0 C 86 20 100/53 L 93 Room Air 07/10/24 07:41 36.8 C 70 20 120/62 96 07/10/24 05:41 66 07/10/24 03:46 36.8 C 71 18 94/51 L 96 Room Air PG Care Time/CCT Total # of Minutes Spent Total Time Spent with Patient: Total time spent is greater than 50% in coordination of care (as documented) at patient's floor/unit and/or counseling patient: Coding Level of Care Code 13631 SUB INP/OBS CARE 2/35MIN Diagnoses Anemia D64.9 GI bleed K92.2
[2024-07-11 00:04] VITALS: TEMP 98.2
[2024-07-11 03:22] VITALS: RESP 18
[2024-07-11 06:55] LABS: Hematocrit (blood only) 25.8 % (37.0-47.0); Hemoglobin 8.1 g/dl (12.0-16.0); Mean Corpuscular Hemoglobin 27.2 pg (25.0-34.0); Mean Corpuscular Hgb Conc 31.4 g/dL (32.0-36.0); Mean Corpuscular Volume 86.6 fL (80.0-100.0); Mean Platelet Volume 9.9 fL (9.4-12.4); Platelet Count 230 K/uL (130-400); RDW Coefficient of Variation 14.6 % (11.5-14.5); RDW Standard Deviation 46.4 fL (36.4-46.3); Red Blood Count 2.98 M/uL (4.20-5.40); White Blood Count 4.62 K/ul (4.8-10.8)
[2024-07-11 07:22] LABS: BUN Creatinine Ratio 19.1 (10-20); Calcium 9.2 mg/dl (8.6-10.3); Creatinine Clr Calc Pharmacy 43.6 ml/min; Potassium 4.5 mmol/L (3.5-5.1)
[2024-07-11 07:51] VITALS: BP 115/65; O2SAT 95
--- NOTE | 2024-07-11 09:00 | Discharge Summary ---
Date of Service July 11, 2024 Admission HPI Per Admitting Provider Patient is an 88-year-old female who was just recently discharged from the hospital with melanotic stools and what was thought to be an upper GI bleed. Patient is on Plavix and Eliquis. Which was resumed after it appeared that her upper GI bleed had stopped. Today she was out shopping at [facility] when she had an incontinent completely bloody stool. She described that the stool was bright red blood in appearance. She was able to get home and she said she had another bright episode of bright red blood from her rectum at home. Came to the emergency room for evaluation. In the emergency room her hemoglobin did drop about a gram from when she was just discharged a few days ago. She was referred to our service for further evaluation. Time my evaluation patient is resting comfortably. She states that she has not had any further bloody stools since she arrived to the ED. She states since she was discharged she did have a stool that seems to be getting less black and turning brown. And she states that she was starting to feel better. She states she did feel little lightheaded when she had the large incontinent stool today but. But she did not have any chest pain or shortness of breath. She states that she had extensive hemorrhoidectomy years ago and did not have any trouble with bleeding hemorrhoids recently. She denies any fever or chills. No cough or cold symptoms. Has been eating well since her discharge. Admission Exam Per Admitting Provider Constitutional: Alert, slightly pale in appearance nontoxic HEENT: Mucous membranes moist. Sclera clear Neck: Soft, no adenopathy Lungs: Clear to auscultation, decreased, no wheezes rales or rhonchi CV: S1-S2, regular Abdomen: Soft, nontender, nondistended Extremities: No significant edema Musculoskeletal: No significant joint tenderness Neuro: No focal deficits Psych: Cooperative, normal mood Principal Diagnosis Acute Gastrointestinal bleeding Acute blood loss anemia Discharge Exam Constitutional + well hydrated; no acute distress Eyes PERRL, conjunctivae normal, anicteric sclerae ENMT external ear and nose normal, oropharynx normal Respiratory normal respiratory effort, lungs clear to auscultation Cardiovascular Rate/Rhythm: regular rate and regular rhythm Gastrointestinal (Abdomen) normal bowel sounds, soft, nontender, no hepatosplenomegaly Musculoskeletal No pedal edema Neurologic PERRL, EOMI, accommodation nl, no face palsy, no dysarthria Psychiatric A+Ox3, euthymic affect Discharge Data Allergies Allergy/AdvReac Type Severity Reaction Status Date / Time imipenem Allergy Severe Dyspnea Verified 07/09/24 13:57 meropenem Allergy Severe Dyspnea Verified 07/09/24 13:57 penicillamine Allergy Severe Dyspnea Verified 07/09/24 13:57 ranitidine Allergy Severe Dyspnea Verified 07/09/24 13:57 ampicillin Allergy Intermediate Dyspnea, Verified 07/09/24 13:57 hives azithromycin Allergy Intermediate Hives, Verified 07/09/24 13:57 angioedema Cephalosporins Allergy Intermediate Hives Verified 07/09/24 13:57 cilastatin Allergy Intermediate Dyspnea Verified 07/09/24 13:57 Macrolide Antibiotics Allergy Intermediate Hives, Verified 07/09/24 13:57 angioedema Penicillins Allergy Intermediate Hives Verified 07/09/24 13:57 adhesive Allergy Mild Rash Verified 07/09/24 13:57 Carbapenems Allergy Unknown Dyspnea Verified 07/09/24 13:57 Consultations 07/08/24 19:03 ED Decision to Admit Stat 07/08/24 21:11 Consult Gastroenterology Routine Procedures Performed Operation Date: 07/09/24 17:00 Actual Procedures p Esophagogastroduodenoscopy - David Prescott MD s Colonoscopy - David Prescott MD Ordered Studies 07/08/24 17:43 CTA abdomen pelvis w con [CT angio abdomen pelvis w con] Stat Hospital Course (1) GI bleed: (2) Acute blood loss anemia: (3) Acute renal failure superimposed on stage 3 chronic kidney disease: (4) PAD (peripheral artery disease): (5) Hypertension: (6) CKD (chronic kidney disease), stage III: (7) COPD (chronic obstructive pulmonary disease): Plan 88-year-old female with history significant for coil embolization of carotid carvenous fistula on 04/15/24 at [facility] complicated by acute lower ext ischemia requiring abdominal aortogram, LLE angiography and open left iliac catheter thromboembolectomy via groin incision, left ext iliac stent grafting of dissection flap on 04/16/24 and has been on plavix and eliquis; recently hospitalized here 07/03/24-07/05/24 for GI bleed who presents with BRBPR Acute GI bleed Acute blood loss anemia Abd CTA did not show any new changes/acute change Hb trended down compared to Hb on recent discharge. Was 9.8 on recent discharge and trended down to 7s this admission. Hb is 8.1 today Home eliquis and plavix were held on admission EGD on 07/09/24 did not show active bleeding source Colonoscopy on 07/09/24 noted 3 small colonic polyps, diverticulosis. No active bleeding source seen. Only area that appeared to have fresh blood was in the cecum, with blood coming through IC valve and in terminal ileum without any source seen GI bleed nuclear scan on 07/09/24 did not show evidence of bleed Endoscopy findings suggest possible source of bleeding may be jejunum or proximal ileum not visualized on endoscopy Hb has remained stable since endoscopies No BM since Patient is to follow up with GI outpatient for Video capsule endoscopy I spoke with Vascular surgery at [facility] today who recommends stopping Eliquis, continue plavix and to keep Vascular outpatient appt on 09/18/24 I informed patient about this recommendation Had JACQUIE on admission with Cr of 1.26 JACQUIE resolved. Cr is 0.89 today Total Time Total Time Spent Total Time Spent (In Minutes): 50 Total Time Includes: Examination of the Patient, Discharge Planning, Medication Reconciliation and Communication With Other Providers Discharge Plan Discharge Items Patient Disposition: Home - Self-Care Reason For Visit: DIVERTICULAR BLEED Discharge Diagnosis: Acute Gastrointestinal bleeding Acute blood loss anemia Activity: Resume your previous activity Non-emergency contact: Primary Care Provider and Applications Packager Call non-emergency contact if: you have any medication questions and your symptoms worsen Follow-up/Referrals: Bharati Wang MD [Primary Care Provider] - David Prescott MD [Physician] - (Call for follow up ) Diet: Heart Healthy Addtl Attending Provider Instructions: Mrs You came to the hospital complaining of rectal bleeding. You had upper endoscopy and colonoscopy. You need to follow up with Gastroenterology for Video capsule endoscopy. Please stop taking your eliquis for now. Continue taking your plavix (clopidogrel) and ensure you keep your appointment with Vascular at [facility] on 09/18/24 It was a pleasure taking care of you. Pending Studies at Discharge: No Stand-Alone Forms: My [employer], Smoking Cessation Medications and DC Order Prescriptions: Continued cyanocobalamin (vitamin B-12) [Vitamin B-12] 1,000 mcg Tablet 1,000 mcg PO QDL fluticasone propionate 50 mcg/actuation [place],Suspension 2 spray INTRANASAL QAM PRN (Reason: Nasal Congestion) rosuvastatin [Crestor] 20 mg Tablet 20 mg PO QAM cholecalciferol (vitamin D3) [Vitamin D3] 25 mcg (1,000 unit) Tablet,Chewable 25 mcg PO QDL acetaminophen [Tylenol Extra Strength] 500 mg Tablet 500 mg PO QID PRN (Reason: Pain) Stool Softener 50 mg Capsule 50 mg PO DAILY PRN (Reason: Constipation) clopidogrel 75 mg tablet 75 mg PO QAM amlodipine 5 mg tablet 5 mg PO QAM lisinopril 20 mg tablet 20 mg PO QAM pantoprazole 40 mg Tablet,Delayed Release (Dr/Ec) 40 mg PO BID Qty: 60 0RF Discontinued Eliquis 5 mg tablet 5 mg PO AMHS Discharge Orders: Discharge Order (Routine); Ordered 07/11/24 Ordered By: Danna Stark Admission Data Admit Date/Time: 07/08/24 19:29 Attending Provider: Danna Stark I. Admit Provider: Cecil Walker Primary Care Provider: Bharati Wang Other Providers: Cecil Walker; David Prescott Other Interventions: Discharge Summary Assessment (RN) Last Done: 07/11/24 09:49
[2024-07-11 09:54] VITALS: PULSE 75
--- NOTE | 2024-07-11 11:16 | Communication Note ---
Date of Service: July 11, 2024 Patient being discharged. Seen during nursing discharge process. Reviewed with her the plan which would be to reintroduce Plavix alone per her vascular surgery once there is no bleeding. Recommend she follow-up with her primary care physician for an H&H Saturday or Saturday if stools brown and hemoglobin stable (8.1 at discharge) can reintroduce Plavix. [facility] will arrange a video capsule endoscopy to evaluate for bleeding lesions beyond the reach of the standard upper endoscope and to gauge the risk of significant bleeding with anticoagulation reintroduction.
--- NOTE | 2024-07-11 11:18 | Communication Note ---
Date of Service: July 11, 2024 Patient seen being discharged. Discussed plan which would be potentially reintroduce Plavix once stools are brown. Should see her primary care physician with a H&H check on Saturday or Saturday. If stable and stools are brown reintroduce Plavix alone at that time per vascular surgery. Hemoglobin was 8.1 at discharge. [facility] will arrange a video capsule endoscopy to evaluate for lesions distal to the reach of the upper endoscope she had small AVMs of the duodenum cauterized x 3.
== END 2024-07-11 11:19 | disposition home or self-care (01) | DRG 378 ==
LOC: ED 15:05 → 2N 19:29

== ENCOUNTER 2024-07-30 16:45 | Inpatient (IN) ==
--- NOTE | 2024-07-30 17:17 | Emergency Department Note ---
Impression & Plan Acute GI bleeding, Abdominal pain, Anemia, High serum chloride ED Provider Note NAME: HOOD MALDONADO AGE: 88 SEX: F : 1935 ARRIVES VIA: Walk-In INFORMANT: Patient ED PROVIDER(S): Talha Villanueva DO CHIEF COMPLAINT: Black stools with red blood present HPI: Patient is an 88-year-old female with a past medical history of renal failure, diverticular hemorrhage, GI bleed, melena, PAD, CKD, COPD, hypertension, hyperlipidemia, who presents to the ER for GI bleed. She notes that symptoms started back up again today. She had 2 bowel movements which were black associated with darker blood. Patient denies any belly pain. No nausea, vomiting, or diarrhea. She feels very weak and rundown. She is taking Plavix but no longer taking NOAC. ADDITIONAL HISTORY OBTAINED: is present at bedside and notes that she has had an upper and lower endoscopy which was unable to reveal the source of the bleeding previously. Chronic Medical/Social Conditions Affecting Care: Per HPI PAST MEDICAL HISTORY:See Below PAST SURGICAL HISTORY:See Below FAMILY HISTORY:See Below SOCIAL HISTORY:See Below HOME MEDICATIONS:See Below ALLERGIES:See Below VITALS:See Below PHYSICAL EXAMINATION: GENERAL: Sitting up in bed, alert, well appearing, well nourished, no distress, non-toxic EYE EXAM: normal conjunctiva. OROPHARYNX: mucous membranes are moist LUNGS: Clear to auscultation. Normal chest wall mechanics HEART: no murmurs, S1 normal and S2 normal ABDOMEN: abdomen soft, non-tender, normo-active bowel sounds, no masses, no rebound or guarding. BACK: Back is symmetrical on inspection and there is no deformity, no midline tenderness, no CVA tenderness. SKIN: no rashes and no bruising UPPER EXTREMITIES: upper extremities are grossly normal. LOWER EXTREMITIES: No pitting edema. NEURO EXAM: Normal sensorium, cranial nerves II-XII grossly intact, normal speech, no gross weakness of arms, no gross weakness of legs. MEDICAL DECISION MAKING: Patient is an 88-year-old female who presents ER for the above-stated complaint. IV was established and blood work was obtained. External records were reviewed from Dr. Alexx ellsworth on 07/11 which showed an EGD and a colonoscopy which were unable to identify the source of the bleeding. Labs show no significant leukocytosis. Mild anemia at 7.4 which is fairly consistent with previous. INR unremarkable. BMP with a slightly elevated chloride at 110. LFTs and bilirubin is unremarkable. Lipase was normal. Patient was typed and screened. Discussed the case with gastroenterology per the request of the hospitalist. Patient was admitted for further workup. Consults/Care Managements Discussions: Per MDM Triage Nursing notes reviewed. Limited review of prior medical records performed Vital Signs: reviewed and remarkable for HTN Differential diagnosis: Differential diagnoses includes but is not limited to gastritis, peptic ulcer disease, GERD, gallbladder disease, pancreatitis, small bowel obstruction, appendicitis, diverticulitis, hernia, urinary tract infection, torsion, perforation, trauma, infectious. ER treatment provided: See below Diagnostics interpreted by me include EKG and cardiac monitoring as listed below: -Cardiac Monitoring: An order was placed for continuous cardiac monitoring. The monitor shows a rate of 70 with sinus rhythm. -ECG: none -Laboratory studies:Interpreted by me as stated above in MDM and shown below. Imaging studies: Xrays: As interpreted by me:none CTs show: none Procedures:none Critical Care: None Past Med/Surg History Problem List (Updated 07/30/24 @ 23:24 by Talha Villanueva DO) High serum chloride (Acute) Anemia (Acute) Abdominal pain (Acute) Acute GI bleeding (Acute) Encounter for pre-operative examination Acute renal failure superimposed on stage 3 chronic kidney disease Diverticular hemorrhage Anemia Melena PAD (peripheral artery disease) GI bleed (Acute) 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 Tobacco use disorder Hyperlipidemia Hypertension controlled, stable per pt Acid reflux controlled, stable per pt CKD (chronic kidney disease), stage III COPD (chronic obstructive pulmonary disease) stable per pt, last rescue inhaler use 1 week ago Medical History Elevated hemidiaphragm L History of GI bleed 2020- DIRECTLY AFTER SHOULDER SURGERY History of COVID-19 10/2021 cough- no hospitalization, no current issues Post-traumatic osteoarthritis, left shoulder Chronic constipation Hx of cancer of uterus s/p hysterectomy with USO Carotid stenosis 50-69% right sided stenosis per 09/2018 doppler report but personal review of imaging by vascular felt that carotid artery stenosis <50% b/l - advised by vascular to f/u PRN; denies dizziness, lightheadedness, visual changes, headaches or syncope History of left shoulder fracture 07/2019 - medically managed until this upcoming surgery Surgical History History of esophagogastroduodenoscopy (EGD) Fusion of spine Left SI joint fusion: 06/14/2020: Grade 2 view, MAC 3.0, ETT 7.0 at [facility] Hx of tooth extraction Hx of surgical procedure Right SI joint fusion History of cataract surgery R/L History of colonoscopy History of surgery "Windpipe growth" removal History of tonsillectomy H/O hemorrhoidectomy History of appendectomy History of cholecystectomy H/O: hysterectomy + USO Hx of fusion of cervical spine History of lumbar fusion Family History Other Heart disease Social History Smoking Status: Light tobacco smoker Tobacco Type: Cigarettes Cigarettes Per Day: 2; Second Hand Exposure: No; Do You Dip or Chew Tobacco: No; Hx Alcohol Use: No Hx Substance Use: No Preferred Language: Belarusian Communication Ability: Effective 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: No Beliefs That Will Affect Care: None marital status: Current Living Situation: Spouse Feels Safe at Home: Yes Safety Concerns: Feels Safe At This Time Assistive Devices: None Allergies Allergies Allergy/AdvReac Type Severity Reaction Status Date / Time imipenem Allergy Severe Dyspnea Verified 07/09/24 13:57 meropenem Allergy Severe Dyspnea Verified 07/09/24 13:57 penicillamine Allergy Severe Dyspnea Verified 07/09/24 13:57 ranitidine Allergy Severe Dyspnea Verified 07/09/24 13:57 ampicillin Allergy Intermediate Dyspnea, Verified 07/09/24 13:57 hives azithromycin Allergy Intermediate Hives, Verified 07/09/24 13:57 angioedema Cephalosporins Allergy Intermediate Hives Verified 07/09/24 13:57 cilastatin Allergy Intermediate Dyspnea Verified 07/09/24 13:57 Macrolide Antibiotics Allergy Intermediate Hives, Verified 07/09/24 13:57 angioedema Penicillins Allergy Intermediate Hives Verified 07/09/24 13:57 adhesive Allergy Mild Rash Verified 07/09/24 13:57 Carbapenems Allergy Unknown Dyspnea Verified 07/09/24 13:57 Home Meds Home Medications Medication Instructions Recorded Confirmed cyanocobalamin (vitamin B-12) 1,000 mcg PO QDL 12/14/18 07/30/24 1,000 mcg tablet (Vitamin B-12) fluticasone propionate 50 2 spray intranasal QAM PRN Nasal 12/14/18 07/30/24 mcg/actuation nasal Congestion spray,suspension rosuvastatin 20 mg tablet (Crestor) 20 mg PO QAM 11/12/19 07/30/24 cholecalciferol (vitamin D3) 25 25 mcg PO QDL 05/05/20 07/30/24 mcg (1,000 unit) chewable tablet (Vitamin D3) acetaminophen 500 mg tablet 500 mg PO QID PRN Pain 02/27/22 07/30/24 (Tylenol Extra Strength) docusate sodium 50 mg capsule 50 mg PO DAILY PRN Constipation 03/28/22 07/30/24 (Stool Softener) amlodipine 5 mg tablet 5 mg PO QAM 04/21/24 07/30/24 clopidogrel 75 mg tablet 75 mg PO QAM 04/21/24 07/30/24 lisinopril 20 mg tablet 20 mg PO QAM 07/03/24 07/30/24 Previous Rx's Medication Instructions Recorded pantoprazole 40 mg tablet,delayed 40 mg PO BID #60 tabs 07/05/24 release Results & Data (ED) Vital Signs Vital Signs - 24 hr 07/30/24 16:57 07/30/24 17:20 07/30/24 17:45 Temperature 36.9 C Temperature Source Temporal Artery Scan Pulse Rate 88 79 Pulse Rate from SpO2 Sensor 75 Respiratory Rate 14 18 Respiratory Effort / Characteristics Non-Labored Spontaneous Respiratory Depth Normal Blood Pressure 130/70 135/97 Blood Pressure Mean 90 109 Pulse Oximetry 99 97 Oxygen Delivery Method Room Air Sepsis Recent Fever Within 48 Hours No Sepsis New/Unexplained Change in Mental Status No Sepsis Action Taken by Nursing No Action Required 07/30/24 18:33 07/30/24 18:35 Temperature Temperature Source Pulse Rate 73 Pulse Rate from SpO2 Sensor Respiratory Rate 14 Respiratory Effort / Characteristics Respiratory Depth Blood Pressure 123/68 Blood Pressure Mean 86 Pulse Oximetry 100 99 Oxygen Delivery Method Room Air Sepsis Recent Fever Within 48 Hours Sepsis New/Unexplained Change in Mental Status Sepsis Action Taken by Nursing Laboratory Data 07/30/24 17:20 07/30/24 17:20 Lab Results 07/30/24 07/30/24 Range/Units 17:20 17:40 WBC 5.27 (4.8-10.8) K/ul RBC 2.83 L (4.20-5.40) M/uL Hgb 7.4 L (12.0-16.0) g/dl POC Hgb 7.1 L (12.0-16.0) g/dl Hct 25.1 L (37.0-47.0) % POC Hct 21 L (37-47) % MCV 88.7 (80.0-100.0) fL MCH 26.1 (25.0-34.0) pg MCHC 29.5 L (32.0-36.0) g/dL RDW Std Deviation 56.7 H (36.4-46.3) fL RDW Coeff of Devi 18.6 H (11.5-14.5) % Plt Count 160 (130-400) K/uL MPV 10.2 (9.4-12.4) fL Immature Gran % (Auto) 0.6 % Neut % (Auto) 59.3 % Lymph % (Auto) 27.5 % [place] % (Auto) 9.5 % Eos % (Auto) 2.5 % Baso % (Auto) 0.6 % Neut # (Auto) 3.13 (1.40-6.50) K/uL Lymph # (Auto) 1.45 (1.20-3.40) K/uL [place] # (Auto) 0.50 (0.11-0.59) K/uL Eos # (Auto) 0.13 (0.00-0.50) K/uL Baso # (Auto) 0.03 (0.00-0.20) K/uL Immature Gran # (Auto) 0.03 (0.01-0.20) K/uL Absolute Nucleated RBC 0.02 (0.00-0.12) K/uL Nucleated RBC % (auto) 0.4 % Polychromasia 1+ PT 10.9 (9.0-12.0) Seconds INR 1.0 (0.9-1.1) APTT 25 (21-31) Seconds PTT Ratio 0.9 POC Sodium 140 (135-144) mmol/L Sodium 143 (136-145) mmol/L POC Potassium 4.3 (3.3-5.0) mmol/L Potassium 4.5 (3.5-5.1) mmol/L POC Chloride 106 (101-112) mmol/L Chloride 110 H (98-107) mmol/L Carbon Dioxide 28 (21-32) mmol/L POC Total CO2 24 (24-31) mmol/L Anion Gap 5 (3-11) POC Anion Gap 15.0 L (16-25) mmol/L POC BUN 16 (7-18) mg/dl BUN 18 (6-23) mg/dl Creatinine 0.86 (0.6-1.2) mg/dl POC Creatinine 1.0 (0.6-1.3) mg/dl Est Cr Clr Drug Dosing 45.2 ml/min eGFR 65.34 BUN/Creatinine Ratio 20.9 H (10-20) Glucose 92 (70-99(Fasting)) mg/dl POC Glucose (other) 89 (70-99) mg/dl Calcium 9.6 (8.6-10.3) mg/dl POC Ioniz Calcium Sarbjit 1.18 (1.12-1.32) mmol/l Total Bilirubin 0.6 (0.2-1.0) mg/dl AST 12 L (13-39) U/L ALT 8 (7-52) U/L Alkaline Phosphatase 66 (34-104) U/L Total Protein 6.7 (6.0-8.3) gm/dl Albumin 4.0 (3.4-5.0) gm/dl Globulin 2.7 (2.5-4.0) gm/dl Albumin/Globulin Ratio 1.5 (0.9-2) Lipase 3 L (11-82) U/L Blood Type O Positive Antibody Screen NEGATIVE Crossmatch See Detail Administered Medications Sodium Chloride (Nss) 1,000 mls @ 100 mls/hr IV .Q10H HUNTER Stop: 08/01/24 04:40 Last Admin: 07/30/24 23:07 Dose: 100 mls/hr Documented By: [facility] Discontinued Medications Pantoprazole Sodium (Protonix) 40 mg in 10 mls @ 5 mls/min IV NOW ONE Stop: 07/30/24 18:10 Last Admin: 07/30/24 18:24 Dose: 5 mls/min Documented By: ZEKE Ioversol (Optiray 320 125ml) 115 ml IV ONCE ONE Stop: 07/30/24 18:46 Last Admin: 07/30/24 18:46 Dose: 115 ml Documented By: JASON Imaging Data Radiologist's Impression: Abdomen/Pelvis CTA 07/30/24 18:25 Clinical history: GI bleed Technique: Axial computed tomography images were obtained of the abdomen and pelvis after the administration of intravenous contrast according to the CT angiogram protocol Comparison is made to the prior CT dated 07/08/2024 Findings: The abdominal aorta appears unremarkable with no sign of aneurysm or dissection. There is atherosclerotic plaque within the aorta without significant stenosis. The celiac axis and superior mesenteric artery are patent with no stenosis identified. The inferior mesenteric artery is patent as well. There is no sign of renal artery stenosis. Again seen is a mild stenosis of the left common iliac artery. There are mild stenoses of the internal iliac arteries bilaterally. Again seen is a patent stent within the mid left external iliac artery. There is no definite change in a dissection of the distal left external iliac artery after the stent. Again seen is an apparent small focal dissection of the mid right external iliac artery. There is an approximately 40% diameter stenosis of the left common femoral artery. The visualized superficial femoral and profunda femoral arteries appear normal bilaterally The liver is overall of normal size, attenuation, and contour with no sign of cirrhosis or significant fatty infiltration. There is a 1.8 cm cyst in the left hepatic lobe. No liver mass lesion is seen. The portal vein is patent. The gallbladder has been removed. No bile duct dilatation is noted. The spleen is of normal size. No focal splenic lesion is evident. The pancreas appears normal with no sign of acute or chronic pancreatitis and no mass lesion noted. The pancreatic duct is of normal caliber. The adrenal glands appear unremarkable. There is an 8 mm left renal calculus with adjacent cortical scarring. There is no hydronephrosis or perinephric stranding. No renal mass lesion is identified. There is a 2.9 cm right renal cyst. There is a 1.3 cm left renal cyst No adenopathy is seen. The stomach appears normal. There is no sign of small bowel obstruction. There is diverticulosis without evidence of diverticulitis. There is no sign of appendicitis. No free intraperitoneal fluid or air is identified. No distal ureteral or bladder calculi are seen. No bladder mass lesion is evident. The uterus has been removed There is mild submental atelectasis in both lower lobes. No fracture is identified. No focal osseous lesion is seen. There is an extensive thoracolumbar fusion with posterior fixation rods and pedicle screws extending from T10 through the sacrum. There is fusion of the sacroiliac joints also. There are laminectomy defects of L2-L5. There is grade 2 anterolisthesis at L5-S1. Impression: 1. Normal-appearing abdominal aorta 2. No sign of renal or mesenteric artery stenosis 3. Unchanged mild stenoses of the left common iliac artery, the bilateral internal iliac arteries, and the left common femoral artery 4. Patent stent in the left external iliac artery, unchanged 5. 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 Unchanged focal dissection of the right external iliac artery 7. Hepatic and bilateral renal cysts 8. Nonobstructing left renal calculus 9. Diverticulosis without evidence of diverticulitis Electronically signed by Papo Joseph 07-30-2024 7:20 PM Discharge Plan Visit Data Chief Complaint: Bleeding Stated Complaint: SUSPECTED INTERNAL BLEEDING ED Provider: Talha Villanueva Discharge Problem: Acute GI bleeding, Abdominal pain, Anemia, High serum chloride Patient Disposition: Admitted As Inpatient Discharge Instructions Interventions: ED Discharge Assessment Last Done: 07/30/24 22:47 Discharge Problem: Abdominal pain Qualifiers: Abdominal location: unspecified location Qualified Code(s): R10.9 - Unspecified abdominal pain Anemia Qualifiers: Anemia type: unspecified type Qualified Code(s): D64.9 - Anemia, unspecified
[2024-07-30 17:37] LABS: Basophils # (auto) 0.03 K/uL (0.00-0.20); Basophils % (auto) 0.6 %; Eosinophils # (auto) 0.13 K/uL (0.00-0.50); Eosinophils % (auto) 2.5 %; Hematocrit (blood only) 25.1 % (37.0-47.0); Hemoglobin 7.4 g/dl (12.0-16.0); Immature Granulocytes # (auto) 0.03 K/uL (0.01-0.20); Immature Granulocytes % (auto) 0.6 %; Lymphocytes # (auto) 1.45 K/uL (1.20-3.40); Lymphocytes % (auto) 27.5 %; Mean Corpuscular Hemoglobin 26.1 pg (25.0-34.0); Mean Corpuscular Hgb Conc 29.5 g/dL (32.0-36.0); Mean Corpuscular Volume 88.7 fL (80.0-100.0); Mean Platelet Volume 10.2 fL (9.4-12.4); Monocytes % (auto) 9.5 %; Neutrophils # (auto) 3.13 K/uL (1.40-6.50); Neutrophils % (auto) 59.3 %; Nucleated RBC # (auto) 0.02 K/uL (0.00-0.12); Nucleated RBC % (auto) 0.4 %; Platelet Count 160 K/uL (130-400); RDW Coefficient of Variation 18.6 % (11.5-14.5); RDW Standard Deviation 56.7 fL (36.4-46.3); Red Blood Count 2.83 M/uL (4.20-5.40); White Blood Count 5.27 K/ul (4.8-10.8)
[2024-07-30 17:50] LABS: Albumin Globulin Ratio 1.5 (0.9-2); BUN Creatinine Ratio 20.9 (10-20); Bilirubin,Total 0.6 mg/dl (0.2-1.0); Calcium 9.6 mg/dl (8.6-10.3); Creatinine Clr Calc Pharmacy 45.2 ml/min; Globulin 2.7 gm/dl (2.5-4.0); Potassium 4.5 mmol/L (3.5-5.1); Total Protein 6.7 gm/dl (6.0-8.3)
[2024-07-30 17:52] LABS: iSTAT Hemoglobin 7.1 g/dl (12.0-16.0); iSTAT Ionized Calcium 1.18 mmol/l (1.12-1.32); iSTAT Potassium 4.3 mmol/L (3.3-5.0)
[2024-07-30 18:01] LABS: Partial Thromboplastin Ratio 0.9; Partial Thromboplastin Time 25 Seconds (21-31); Prothrombin Time 10.9 Seconds (9.0-12.0)
[2024-07-30 18:08] LABS: Polychromasia 1+
[2024-07-30] MEDS: PANTOprazole 40 MG/10 ML SYR IV ONE ×2 (18:24→23:41)
[2024-07-30] MEDS: OPTIRAY 320 125ml IV ONE (18:46)
--- NOTE | 2024-07-30 19:21 | CT Scan Report ---
Clinical history: GI bleed Technique: Axial computed tomography images were obtained of the abdomen and pelvis after the administration of intravenous contrast according to the CT angiogram protocol Comparison is made to the prior CT dated 07/08/2024 Findings: The abdominal aorta appears unremarkable with no sign of aneurysm or dissection. There is atherosclerotic plaque within the aorta without significant stenosis. The celiac axis and superior mesenteric artery are patent with no stenosis identified. The inferior mesenteric artery is patent as well. There is no sign of renal artery stenosis. Again seen is a mild stenosis of the left common iliac artery. There are mild stenoses of the internal iliac arteries bilaterally. Again seen is a patent stent within the mid left external iliac artery. There is no definite change in a dissection of the distal left external iliac artery after the stent. Again seen is an apparent small focal dissection of the mid right external iliac artery. There is an approximately 40% diameter stenosis of the left common femoral artery. The visualized superficial femoral and profunda femoral arteries appear normal bilaterally The liver is overall of normal size, attenuation, and contour with no sign of cirrhosis or significant fatty infiltration. There is a 1.8 cm cyst in the left hepatic lobe. No liver mass lesion is seen. The portal vein is patent. The gallbladder has been removed. No bile duct dilatation is noted. The spleen is of normal size. No focal splenic lesion is evident. The pancreas appears normal with no sign of acute or chronic pancreatitis and no mass lesion noted. The pancreatic duct is of normal caliber. The adrenal glands appear unremarkable. There is an 8 mm left renal calculus with adjacent cortical scarring. There is no hydronephrosis or perinephric stranding. No renal mass lesion is identified. There is a 2.9 cm right renal cyst. There is a 1.3 cm left renal cyst No adenopathy is seen. The stomach appears normal. There is no sign of small bowel obstruction. There is diverticulosis without evidence of diverticulitis. There is no sign of appendicitis. No free intraperitoneal fluid or air is identified. No distal ureteral or bladder calculi are seen. No bladder mass lesion is evident. The uterus has been removed There is mild submental atelectasis in both lower lobes. No fracture is identified. No focal osseous lesion is seen. There is an extensive thoracolumbar fusion with posterior fixation rods and pedicle screws extending from T10 through the sacrum. There is fusion of the sacroiliac joints also. There are laminectomy defects of L2-L5. There is grade 2 anterolisthesis at L5-S1. Impression: 1. Normal-appearing abdominal aorta 2. No sign of renal or mesenteric artery stenosis 3. Unchanged mild stenoses of the left common iliac artery, the bilateral internal iliac arteries, and the left common femoral artery 4. Patent stent in the left external iliac artery, unchanged 5. 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 Unchanged focal dissection of the right external iliac artery 7. Hepatic and bilateral renal cysts 8. Nonobstructing left renal calculus 9. Diverticulosis without evidence of diverticulitis Electronically signed by Papo Joseph 07-30-2024 7:20 PM
--- NOTE | 2024-07-30 19:44 | History & Physical Report ---
Date of Service July 30, 2024 Assessment & Plan (1) Melena: Plan: 88-year-old female with history significant for coil [place] [facility] [place] acute lower ext ischemia requiring abdominal aortogram, LLE angiography and open left iliac catheter thromboembolectomy via groin incision, left ext iliac stent grafting of dissection flap on 04/16/24 and has been on plavix and eliquis; recently hospitalized here 07/03/24-07/05/24 and 07/08- for GI bleed. Recurrent GI bleed, Melena Etiology unclear During last month's admission, EGD, colonoscopy, GI bleed nuclear scan unrevealing. "Possible source of bleeding may be jejunum or proximal ileum not visualized endoscopy" Today,CT angiogramAbdomen and pelvis: No active bleeding noted Hemoglobin 7.4, will transfuse with 1 unit of packed RBC Repeat hemoglobin at 11:30 PM.And in the morning Protonix drip N.p.o. IV fluids GI consult Hold Plavix Anemia panel CKD stage III Renal function stable Chronic medical conditions: Hypertension- Hold amlodipine and lisinopril in light of GI bleed, to prevent possible hypotension Dyslipidemia- Hold statin COPD Peripheral arterial disease DVT prophylaxis Lovenox/heparin contraindicated in light of GI bleed SCDs contraindicated in light of peripheral arterial disease Ambulate frequently once hemodynamically stable Full code Disposition Lives with family at home History of Present Illness Chief Complaint: MELENA Primary Care Provider: Bharati Wang MD 88-year-old female with history significant for coil embolization of carotid carvenous fistula [place]15[place] [facility] [place] by acute lower ext ischemia requiring abdominal aortogram, LLE angiography and open left iliac catheter thromboembolectomy via groin incision, left ext iliac stent grafting of dissect ion flap on 04/16/24 and has been on plavix and eliquis; recently hospitalized here 07/03/24-07/05/24 and 07/08- for GI bleed. During the last admission for GI bleed, the patient underwent EGD and colonoscopy. Results as follows EGD on 07/09/24 did not show active bleeding source Colonoscopy on 07/09/24 noted 3 small colonic polyps, diverticulosis. No active bleeding source seen. Only area that appeared to have fresh blood was in the cecum, with blood coming through IC valve and in terminal ileum without any source seen GI bleed nuclear scan on 07/09/24 did not show evidence of bleed Endoscopy findings suggest possible source of bleeding may be jejunum or proximal ileum not visualized on endoscopy Patient is to follow up with GI outpatient for Video capsule endoscopy Hospitalist discussed with Vascular surgery at [facility] who recommends stopping Eliquis, continue plavix and to keep Vascular outpatient appt on 09/18. Patient returns to the ER today As she noted black/bloody stools this morning 2- 3 times at home. Hemoglobin today is 7.4 from 8.1 last July 11, 2024. CT angiogram abdomen pelvis: No active bleeding identified ER physician discussed with GI on-call who agreed to have the patient admitted to [facility] at this time. On my exam, patient seen resting in bed, comfortable, not in distress. Denies ongoing abdominal pain, nausea, chest pain, shortness of breath, palpitations, dizziness, etc. States she has been feeling weak since last month. Allergies Allergy/AdvReac Type Severity Reaction Status Date / Time imipenem Allergy Severe Dyspnea Verified 07/09/24 13:57 meropenem Allergy Severe Dyspnea Verified 07/09/24 13:57 penicillamine Allergy Severe Dyspnea Verified 07/09/24 13:57 ranitidine Allergy Severe Dyspnea Verified 07/09/24 13:57 ampicillin Allergy Intermediate Dyspnea, Verified 07/09/24 13:57 hives azithromycin Allergy Intermediate Hives, Verified 07/09/24 13:57 angioedema Cephalosporins Allergy Intermediate Hives Verified 07/09/24 13:57 cilastatin Allergy Intermediate Dyspnea Verified 07/09/24 13:57 Macrolide Antibiotics Allergy Intermediate Hives, Verified 07/09/24 13:57 angioedema Penicillins Allergy Intermediate Hives Verified 07/09/24 13:57 adhesive Allergy Mild Rash Verified 07/09/24 13:57 Carbapenems Allergy Unknown Dyspnea Verified 07/09/24 13:57 Home Medications Medication Instructions Recorded Confirmed Type cyanocobalamin (vitamin B-12) 1,000 mcg PO QDL 12/14/18 07/30/24 History 1,000 mcg tablet (Vitamin B-12) fluticasone propionate 50 2 spray intranasal QAM PRN Nasal 12/14/18 07/30/24 History mcg/actuation nasal Congestion spray,suspension rosuvastatin 20 mg tablet (Crestor) 20 mg PO QAM 11/12/19 07/30/24 History cholecalciferol (vitamin D3) 25 25 mcg PO QDL 05/05/20 07/30/24 History mcg (1,000 unit) chewable tablet (Vitamin D3) acetaminophen 500 mg tablet 500 mg PO QID PRN Pain 02/27/22 07/30/24 History (Tylenol Extra Strength) docusate sodium 50 mg capsule 50 mg PO DAILY PRN Constipation 03/28/22 07/30/24 History (Stool Softener) amlodipine 5 mg tablet 5 mg PO QAM 04/21/24 07/30/24 History clopidogrel 75 mg tablet 75 mg PO QAM 04/21/24 07/30/24 History lisinopril 20 mg tablet 20 mg PO QAM 07/03/24 07/30/24 History pantoprazole 40 mg tablet,delayed 40 mg PO BID #60 tabs 07/05/24 07/30/24 Rx release Past Med/Surg History Problem List (Updated 07/09/24 @ 11:00 by Sumanth Adams MD) Encounter for pre-operative examination Acute renal failure superimposed on stage 3 chronic kidney disease Diverticular hemorrhage Anemia Melena PAD (peripheral artery disease) GI bleed (Acute) 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 Tobacco use disorder Hyperlipidemia Hypertension controlled, stable per pt Acid reflux controlled, stable per pt CKD (chronic kidney disease), stage III COPD (chronic obstructive pulmonary disease) stable per pt, last rescue inhaler use 1 week ago Medical History Elevated hemidiaphragm L History of GI bleed 2020- DIRECTLY AFTER SHOULDER SURGERY History of COVID-19 10/2021 cough- no hospitalization, no current issues Post-traumatic osteoarthritis, left shoulder Chronic constipation Hx of cancer of uterus s/p hysterectomy with USO Carotid stenosis 50-69% right sided stenosis per 09/2018 doppler report but personal review of imaging by vascular felt that carotid artery stenosis <50% b/l - advised by vascular to f/u PRN; denies dizziness, lightheadedness, visual changes, headaches or syncope History of left shoulder fracture 07/2019 - medically managed until this upcoming surgery Surgical History History of esophagogastroduodenoscopy (EGD) Fusion of spine Left SI joint fusion: 06/14/2020: Grade 2 view, MAC 3.0, ETT 7.0 at [facility] Hx of tooth extraction Hx of surgical procedure Right SI joint fusion History of cataract surgery R/L History of colonoscopy History of surgery "Windpipe growth" removal History of tonsillectomy H/O hemorrhoidectomy History of appendectomy History of cholecystectomy H/O: hysterectomy + USO Hx of fusion of cervical spine History of lumbar fusion Family History Other Heart disease Social History Smoking Status: Current every day smoker Tobacco Type: Cigarettes Cigarettes Per Day: 10; Second Hand Exposure: No; Do You Dip or Chew Tobacco: No; Hx Alcohol Use: No Hx Substance Use: No Preferred Language: Georgian Communication Ability: Effective [employer] Operator Required: No Beliefs That Will Affect Care: None marital status: Current Living Situation: Spouse Feels Safe at Home: Yes Assistive Devices: None Review of Systems Review of Systems: all noted and negative except for above Physical Exam Physical Exam: General- oriented x 3, not in distress, speaks in sentences with no effort or accessory muscle use Head- atraumatic Eyes- PERRL, EOMI, anicteric ENT- oropharynx clear Neck- supple, no JVD, no adenopathy, no thyromegaly; carotids +2/2, no bruits appreciated Lungs- clear to auscultation bilaterally, no rales/wheezes Heart- normal rate, regular rhythm; no murmur, no gallop, no rub appreciated Abdomen- normal bowel sounds, nondistended, soft, nontender, no masses or hepatosplenomegaly Extremities- no pretibial edema, no calf tenderness; peripheral pulses intact Neuro- alert, oriented x 3; CN 2-12 grossly intact; motor 5/5 bilaterally;sensation 100% on all extremities; no other gross focal neurologic deficits Skin- warm & dry Results & Data Results & Data Vital Signs (Past 12 Hours) Vital Signs Temp Pulse Resp BP Pulse Ox O2 Del Method 07/30/24 18:35 99 Room Air 07/30/24 18:33 73 14 123/68 100 07/30/24 17:45 18 135/97 97 07/30/24 17:20 79 07/30/24 16:57 36.9 C 88 14 130/70 99 Room Air Code Status & VTE Plan VTE Prophylaxis Plan VTE Prophylaxis will be ordered: Yes
[2024-07-30] MEDS ORDERED: SODIUM CHLORIDE 0.9% 100 ML IV PRN (22:41)
[2024-07-30] MEDS ORDERED: SODIUM CHLORIDE 0.9% 50 ML IV PRN (22:41)
[2024-07-30] MEDS ORDERED: PANTOprazole 40 MG in DEXTROSE 5% 100 ML IV ONE (22:41)
[2024-07-30] MEDS ORDERED: PANTOPRAZOLE BOLUS/DRIP IV STA (22:41)
[2024-07-30] MEDS: SODIUM CHLORIDE 0.9% 1,000 ML IV SCH (23:07)
[2024-07-30] MEDS: diphenhydrAMINE 50 MG/ML VIAL IV SCH (23:29)
[2024-07-30] MEDS: ACETAMINOPHEN 325 MG TAB PO SCH (23:30)
[2024-07-30] MEDS: PANTOprazole 40 MG in DEXTROSE 5% MINI-B 100 ML IV SCH (23:55)
[2024-07-31 05:16] LABS: Basophils # (auto) 0.03 K/uL (0.00-0.20); Basophils % (auto) 0.7 %; Eosinophils # (auto) 0.13 K/uL (0.00-0.50); Hematocrit (blood only) 27.7 % (37.0-47.0); Hemoglobin 8.3 g/dl (12.0-16.0); Immature Granulocytes # (auto) 0.02 K/uL (0.01-0.20); Immature Granulocytes % (auto) 0.5 %; Lymphocytes # (auto) 1.29 K/uL (1.20-3.40); Lymphocytes % (auto) 30.1 %; Mean Corpuscular Hemoglobin 26.3 pg (25.0-34.0); Mean Corpuscular Volume 87.7 fL (80.0-100.0); Mean Platelet Volume 10.1 fL (9.4-12.4); Monocytes # (auto) 0.47 K/uL (0.11-0.59); Neutrophils # (auto) 2.34 K/uL (1.40-6.50); Neutrophils % (auto) 54.7 %; Platelet Count 148 K/uL (130-400); RDW Coefficient of Variation 18.2 % (11.5-14.5); RDW Standard Deviation 55.5 fL (36.4-46.3); Red Blood Count 3.16 M/uL (4.20-5.40); White Blood Count 4.28 K/ul (4.8-10.8)
[2024-07-31 05:31] LABS: Albumin Globulin Ratio 1.5 (0.9-2); Albumin Level 3.7 gm/dl (3.4-5.0); BUN Creatinine Ratio 16.5 (10-20); Calcium 9.1 mg/dl (8.6-10.3); Creatinine Clr Calc Pharmacy 42.8 ml/min; Globulin 2.5 gm/dl (2.5-4.0); Potassium 4.3 mmol/L (3.5-5.1); Total Protein 6.2 gm/dl (6.0-8.3)
[2024-07-31 05:51] LABS: Ferritin 114.5 ng/ml (8-388)
[2024-07-31 06:44] LABS: Folate (Folic Acid),Ser orPlas 18.29 ng/ml (>5.38)
--- NOTE | 2024-07-31 07:20 | Electrocardiogram Report ---
Test Reason : Blood Pressure : */* mmHG Vent. Rate : 73 BPM Atrial Rate : 73 BPM P-R Int : 146 ms QRS Dur : 74 ms QT Int : 388 ms P-R-T Axes : -5 -18 11 degrees QTcB Int : 427 ms Normal sinus rhythm Normal ECG When compared with ECG of 08-Jul-2024 15:33, No significant change was found Confirmed by Jatin Chino ([id number]) on 07/31/2024 7:20:10 AM Referred By: REFERRED SELF Confirmed By: Jatin Chino
--- NOTE | 2024-07-31 10:09 | Gastrointestinal Consultation ---
Date of Consultation July 31, 2024 Assessment & Plan (1) Anemia: 88 year old female w/ history of coil [place] [facility] [place] lower ext ischemia requiring abdominal aortogram, LLE angiography and open left iliac catheter thromboembolectomy via groin incision, left ext iliac stent grafting of dissection flap on 04/16/24 anticoagulated on plavix and eliquis, recently admitted for GI bleeding in June s/p EGD/Colonoscopy w/o active bleeding to have OP VCE who is re- admitted w/ return of GI bleeding. CTA w/o active bleeding. We discussed repeat endoscopic evaluation during admission. She notes at present time she would prefer to hold AC and trend HGB. She notes that if she has signs of active GI bleeding after holding AC she would be agreeable to repeat endoscopic evaluation. Ultimately, the OP VCE that is being arranged through [employer] will be helpful as endoscopes last admission were concerning for small bowel hemorrhage. If she has persistent bleeding, she may be best served at a center that offers balloon enteroscopy. Trend H&H. Monitor and document GI output. Transfuse PRN. Hold AC. GI will follow. I spent a total of 60 minutes on the date of service in review of patient's record, and previously obtained information in person and appropriate medical visit, discussion and education of plan, with patient and/or caregiver, placing orders for tests/referral/procedures as medically necessary and documentation of pertinent clinical information in patient's medical records for their visit today. Supervising Physician Co-Signing Physician Notes I saw and examined this patient with our nurse practitioner and agree with her assessment and plan. Recent endoscopy and colonoscopy have been unrevealing to explain her GI blood loss anemia. The plan is to proceed with a capsule study as an outpatient. He is awaiting insurance verification prior to proceeding with a capsule study. As she is hemodynamically stable tolerating blood transfusions with her hemoglobin 8.3 now we recommend proceeding with the plan as an outpatient. History of Present Illness Reason for Consultation: GI bleeding Requesting Physician: Darcy Sanchez MD Attending Physician: Darcy Sanchez MD History of Present Illness 88 year old female w/ history of coil embolization of carotid carvenous [place] [facility] [place] acute lower ext ischemia requiring abdominal aortogram, LLE angiography and open left iliac catheter thromboembolectomy via groin incision, left ext iliac stent grafting of dissection flap on 04/16/24 and has been on plavix and eliquis, recently admitted for GI bleeding in June s/p EGD/Colonoscopy w/o active bleeding to have OP VCE who is re-admitted w/ return of GI bleeding. Pt was seen and evaluated, chart reviewed. She denies abd pain. Reports yesterday she had some dark stools mixed with blood. Suggest 3-4 episodes in total. Most recent BM was last evening. No abd pain. No nausea/vomi ting. She had appt for VCE consent. Is await insurance authorization and call to schedule the VCE through [employer]. CTA 2024: Normal-appearing abdominal aorta No sign of renal or mesenteric artery stenosis . 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 - Normal stomach. - Scope advanced to the third part of the duodenum towards ligament of Treitz. No blood noted in the entire of the upper GI tract. No AVMs seen. - No specimens collected. - No source of bleeding upper GI tract. Proceed with colonoscopy today. Colonoscopy 2024: Likely bleeding from small bowel AVMs distal to the upper endoscope proximal to the lower endoscope - Some pink-tinged prep solution throughout. No clots in the left colon. Severe diverticulosis precluding safe advancement of the regular colonoscope. Switch to EGD scope which could be advanced all the way to the cecum. Only area of there appeared to be fresh blood was in the cecum. Extensive lavage of the cecum did not reveal any AVMs. On direct visualization blood could be seen coming through the actual IC valve. Entering the terminal ileum red blood present. No bleeding source within the distal ileum. - No specimens collected. Allergies Allergy/AdvReac Type Severity Reaction Status Date / Time imipenem Allergy Severe Dyspnea Verified 07/09/24 13:57 meropenem Allergy Severe Dyspnea Verified 07/09/24 13:57 penicillamine Allergy Severe Dyspnea Verified 07/09/24 13:57 ranitidine Allergy Severe Dyspnea Verified 07/09/24 13:57 ampicillin Allergy Intermediate Dyspnea, Verified 07/09/24 13:57 hives azithromycin Allergy Intermediate Hives, Verified 07/09/24 13:57 angioedema Cephalosporins Allergy Intermediate Hives Verified 07/09/24 13:57 cilastatin Allergy Intermediate Dyspnea Verified 07/09/24 13:57 Macrolide Antibiotics Allergy Intermediate Hives, Verified 07/09/24 13:57 angioedema Penicillins Allergy Intermediate Hives Verified 07/09/24 13:57 adhesive Allergy Mild Rash Verified 07/09/24 13:57 Carbapenems Allergy Unknown Dyspnea Verified 07/09/24 13:57 Home Medications Medication Instructions Recorded Confirmed Type cyanocobalamin (vitamin B-12) 1,000 mcg PO QDL 12/14/18 07/30/24 History 1,000 mcg tablet (Vitamin B-12) fluticasone propionate 50 2 spray intranasal QAM PRN Nasal 12/14/18 07/30/24 History mcg/actuation nasal Congestion spray,suspension rosuvastatin 20 mg tablet (Crestor) 20 mg PO QAM 11/12/19 07/30/24 History cholecalciferol (vitamin D3) 25 25 mcg PO QDL 05/05/20 07/30/24 History mcg (1,000 unit) chewable tablet (Vitamin D3) acetaminophen 500 mg tablet 500 mg PO QID PRN Pain 02/27/22 07/30/24 History (Tylenol Extra Strength) docusate sodium 50 mg capsule 50 mg PO DAILY PRN Constipation 03/28/22 07/30/24 History (Stool Softener) amlodipine 5 mg tablet 5 mg PO QAM 04/21/24 07/30/24 History clopidogrel 75 mg tablet 75 mg PO QAM 04/21/24 07/30/24 History lisinopril 20 mg tablet 20 mg PO QAM 07/03/24 07/30/24 History pantoprazole 40 mg tablet,delayed 40 mg PO BID #60 tabs 07/05/24 07/30/24 Rx release Patient History Medical History Elevated hemidiaphragm L History of GI bleed 2020- DIRECTLY AFTER SHOULDER SURGERY History of COVID-19 10/2021 cough- no hospitalization, no current issues Post-traumatic osteoarthritis, left shoulder Chronic constipation Hx of cancer of uterus s/p hysterectomy with USO Carotid stenosis 50-69% right sided stenosis per 09/2018 doppler report but personal review of imaging by vascular felt that carotid artery stenosis <50% b/l - advised by vascular to f/u PRN; denies dizziness, lightheadedness, visual changes, headaches or syncope History of left shoulder fracture 07/2019 - medically managed until this upcoming surgery Surgical History History of esophagogastroduodenoscopy (EGD) Fusion of spine Left SI joint fusion: 06/14/2020: Grade 2 view, MAC 3.0, ETT 7.0 at [facility] Hx of tooth extraction Hx of surgical procedure Right SI joint fusion History of cataract surgery R/L History of colonoscopy History of surgery "Windpipe growth" removal History of tonsillectomy H/O hemorrhoidectomy History of appendectomy History of cholecystectomy H/O: hysterectomy + USO Hx of fusion of cervical spine History of lumbar fusion Family History Other Heart disease Social History Smoking Status: Light tobacco smoker Tobacco Type: Cigarettes Cigarettes Per Day: 2; Second Hand Exposure: No; Do You Dip or Chew Tobacco: No; Hx Alcohol Use: No Hx Substance Use: No Preferred Language: Khmer Communication Ability: Effective Communications Specialist Required: No Beliefs That Will Affect Care: None marital status: Current Living Situation: Spouse Feels Safe at Home: Yes Safety Concerns: Feels Safe At This Time Assistive Devices: None Review of Systems Review of Systems: All other findings negative except as noted in HPI. Physical Exam Constitutional: WD/WN, vitals as above Respiratory: normal respiratory effort, lungs clear to auscultation Gastrointestinal (Abdomen): normal bowel sounds, soft, nontender, no hepatosplenomegaly Skin: no rashes, warm and dry Results & Data Vital Signs (Past 12 Hours) Vital Signs Temp Pulse Pulse Pulse Resp BP BP 07/31/24 07:35 98.2 F 63 17 128/72 07/31/24 03:10 97.9 F 64 16 128/65 07/31/24 02:20 97.5 F L 64 16 112/57 L 07/31/24 01:20 97.9 F 62 14 105/57 L 07/31/24 00:50 98.2 F 68 14 113/64 07/31/24 00:35 98.1 F 71 16 109/50 L 07/31/24 00:17 98.4 F 74 16 119/69 07/30/24 23:03 97.7 F 72 16 144/73 H 07/30/24 22:47 07/30/24 22:45 72 07/30/24 22:41 97.7 F 72 16 BP Pulse Ox O2 Del Method 07/31/24 07:35 93 Room Air 07/31/24 03:10 94 07/31/24 02:20 94 07/31/24 01:20 94 07/31/24 00:50 94 07/31/24 00:35 94 07/31/24 00:17 96 07/30/24 23:03 95 Room Air 07/30/24 22:47 Room Air 07/30/24 22:45 07/30/24 22:41 144/72 H 95 Room Air Laboratory Results Laboratory Results - last 48 hr 07/30/24 07/30/24 07/31/24 17:20 17:40 05:01 WBC 5.27 4.28 L RBC 2.83 L 3.16 L Hgb 7.4 L 8.3 L POC Hgb 7.1 L Hct 25.1 L 27.7 L POC Hct 21 L MCV 88.7 87.7 MCH 26.1 26.3 MCHC 29.5 L 30.0 L RDW Std Deviation 56.7 H 55.5 H RDW Coeff of Devi 18.6 H 18.2 H Plt Count 160 148 MPV 10.2 10.1 Immature Gran % (Auto) 0.6 0.5 Neut % (Auto) 59.3 54.7 Lymph % (Auto) 27.5 30.1 Dunn % (Auto) 9.5 11.0 Eos % (Auto) 2.5 3.0 Baso % (Auto) 0.6 0.7 Neut # (Auto) 3.13 2.34 Lymph # (Auto) 1.45 1.29 Dunn # (Auto) 0.50 0.47 Eos # (Auto) 0.13 0.13 Baso # (Auto) 0.03 0.03 Immature Gran # (Auto) 0.03 0.02 Absolute Nucleated RBC 0.02 Nucleated RBC % (auto) 0.4 Polychromasia 1+ PT 10.9 INR 1.0 APTT 25 PTT Ratio 0.9 POC Sodium 140 Sodium 143 142 POC Potassium 4.3 Potassium 4.5 4.3 POC Chloride 106 Chloride 110 H 110 H Carbon Dioxide 28 27 POC Total CO2 24 Anion Gap 5 5 POC Anion Gap 15.0 L POC BUN 16 BUN 18 15 Creatinine 0.86 0.91 POC Creatinine 1.0 Est Cr Clr Drug Dosing 45.2 42.8 eGFR 65.34 61.06 BUN/Creatinine Ratio 20.9 H 16.5 Glucose 92 89 POC Glucose (other) 89 Calcium 9.6 9.1 POC Ioniz Calcium Sarbjit 1.18 Iron 68 Transferrin 257 Ferritin 114.5 Total Bilirubin 0.6 1.0 AST 12 L 11 L ALT 8 7 Alkaline Phosphatase 66 60 Total Protein 6.7 6.2 Albumin 4.0 3.7 Globulin 2.7 2.5 Albumin/Globulin Ratio 1.5 1.5 Lipase 3 L Vitamin B12 302 Folate 18.29 Blood Type O Positive Antibody Screen NEGATIVE Crossmatch See Detail PG Care Time/CCT Total # of Minutes Spent Total Time Spent with Patient: Total time spent is greater than 50% in coordination of care (as documented) at patient's floor/unit and/or counseling patient: Coding Level of Care Code 70508 INT INP/OBS CARE 2/55MIN Diagnoses Anemia D64.9 Anemia type: unspecified type (1) Anemia Anemia type: unspecified type Qualified Code(s): D64.9 - Anemia, unspecified
--- NOTE | 2024-07-31 11:42 | Hospitalist Progress Note ---
Date of Service July 31, 2024 Assessment & Plan (1) Melena: Plan: 88-year-old female with history significant for coil embolization of carotid carvenous fistula on 04/15/24 at [facility] [place] complicated by acute lower ext ischemia requiring abdominal aortogram, LLE angiography and open left iliac catheter thromboembolectomy via groin incision, left ext iliac stent grafting of dissection flap on 04/16/24 and has been on plavix and eliquis; recently hospitalized here 07/03/24-07/05/24 and 07/08- for GI bleed. Recurrent GI bleed, Melena Acute on Chronic Anemia Etiology unclear During last month's admission, EGD, colonoscopy, GI bleed nuclear scan unrevealing. "Possible source of bleeding may be jejunum or proximal ileum not visualized endoscopy" CTA Abdomen and pelvis: No active bleeding noted Hemoglobin 7.4, s/p transfusion of 1U pRBCs Protonix drip IV fluids Hold Plavix Anemia panel unremarkable GI consult, appreciate recs Continue to monitor CKD stage III Renal function stable Chronic medical conditions: Hypertension- Hold amlodipine and lisinopril in light of GI bleed, to prevent possible hypotension Dyslipidemia- Hold statin COPD Peripheral arterial disease Diet: clears at this time DVT prophylaxis: Lovenox/heparin CI with GI bleed Dispo: home once medically stable Admission and Anticipated Discharge Date Admission Date: July 30, 2024 Subjective pt was seen laying in bed Anxious for discharge noting she wants to go home Otherwise denies concerns Review of Systems Review of Systems: All systems reviewed & are unremarkable except as noted in Subjective Physical Exam Physical Exam: General: Alert, oriented. No acute distress Psych: Appropriate mood and affect HEENT: NC/AT CV: RRR Resp: Breath sounds clear bilaterally, no increased effort of breathing Abdomen: Soft, nontender Extremities: No edema in lower extremities bilaterally. Results & Data Results & Data Vital Signs (Past 12 Hours) Vital Signs Temp Pulse Pulse Resp BP BP Pulse Ox 07/31/24 11:01 36.7 C 63 18 110/66 94 07/31/24 08:00 59 L 07/31/24 07:35 36.8 C 63 17 128/72 93 07/31/24 03:10 36.6 C 64 16 128/65 94 07/31/24 02:20 36.4 C L 64 16 112/57 L 94 07/31/24 01:20 36.6 C 62 14 105/57 L 94 07/31/24 00:50 36.8 C 68 14 113/64 94 07/31/24 00:35 36.7 C 71 16 109/50 L 94 07/31/24 00:17 36.9 C 74 16 119/69 96 O2 Del Method 07/31/24 11:01 Room Air 07/31/24 08:00 07/31/24 07:35 Room Air 07/31/24 03:10 07/31/24 02:20 07/31/24 01:20 07/31/24 00:50 07/31/24 00:35 07/31/24 00:17
--- OUTSIDE RECORDS SUMMARY | 2024-07-31 12:07 | External Medical Summary | Summary of Care ---
Author Name Unknown Organization [facility] Address [address] [place] [address] Phone [phone] Care Team Providers Care Coat Ironer Hand Name Role Phone Bharati Wang MD Primary Care Provide r Reason for Visit * Reason Comments Infusion Venofer 05/30 Encounter Details Date Type Department Care Team (Latest Contact Info) Description 07/23/2024 1:30 PM EST Hem/Onc Treatment Hematology/Oncology Treatment, [address] [phone] Claudia, Chair 1 Hem Onc [address] [id number] Iron deficiency anemia due to chronic blood loss*; Acute blood loss anemia Allergies Active Allergy Reactions Criticality Noted Date Comments Ampicillin 09/23/2003 Hives/trouble breathing Azithromycin 09/24/2003 hives and angioedema Carbapenems 07/03/2024 Other Reaction(s): Dyspnea Cephalosporins High 07/03/2024 Other Reaction(s): Hives Cilastatin High 07/03/2024 Other Reaction(s): Dyspnea Imipenem High 07/03/2024 Other Reaction(s): Dyspnea Meropenem High 07/03/2024 Other Reaction(s): Dyspnea Penicillamine High 07/03/2024 Other Reaction(s): Dyspnea Ranitidine High 07/03/2024 Other Reaction(s): Dyspnea documented as of this encounter (statuses as of 07/24/2024) Medications VITAMIN D 2000 UNITS PO CAPS Take 1 Capsule by mouth daily with dinner. [address] ARTHRITIS PAIN 500 MG PO TABS Take by mouth. Active Cyanocobalamin 1000 MCG Oral Tablet Take 1 Tablet by mouth daily at noon. 8 Active Loratadine 10 MG Oral Tablet (Claritin)Yamileth cations:Nasal congestion Take 1 Tablet by mouth every night at bedtime. 30 Tablet 11 3 Active amLODIPine Besylate 5 MG Oral Tablet [...] the morning. 90 Tablet 1 5 Active Pantoprazole Sodium 40 MG Oral Packet (Protonix) Administer 40 mg into feeding tube in the morning and 40 mg before bedtime. Active Fluticasone Propionate 50 MCG/ACT Nasal Suspension (Flonase)Indic ations:Nasal congestion USE ONE SPRAY IN each nostril IN THE MORNING AND in the evening 16 g 4 07/23/19 25 Discontinu ed(Refill) documented as of this encounter (statuses as of 07/24/2024) Active Problems Problem Noted Date Diagnosed Date Iron deficiency anemia 07/15/2024 Thromboembolus 07/07/2024 CKD (chronic kidney disease), stage II 5 S/P insertion of iliac artery stent 06/25/2024 History of thromboembolism 06/25/2024 PAD (peripheral artery disease) 06/19/2024 Age-related osteoporosis wit hout current pathological fracture 05/18/2024 Acute blood loss anemia 04/22/2024 Retroperitoneal hematoma [...] as of this encounter (statuses as of 07/24/2024) Resolved Problems Problem Noted Date Diagnosed Date Resolved Date Sepsis 04/22/2024 04/24/2024 UTI (urinary tract infection) 04/22/2024 04/24/2024 Chronic kidney disease, stage 3a 12/05/2020 03/02/2024 [...] as of this encounter (statuses as of 07/24/2024) Immunizations Name Administration Dates Next Due COVID-19 [...] Date Smoking Tobacco: Every Day Cigarettes 1 57.8 Started: 1965 Smokeless Tobacco: Never Comments:06/19/24 1/2 [...] No 04/20/2024 Does the household have a [facility] source of income? 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 Not on file Not on file Not on file documented as of this encounter Last Filed Vital Signs Vital Sign Reading Time Taken Comments Blood Pressure 151/74 07/23/2024 3:24 PM EST Pulse 69 07/23/2024 3:24 PM EST Temperature 36 C (96.8 F) 07/23/2024 3:24 PM EST Respiratory Rate 18 07/23/2024 3:24 PM EST Oxygen Saturation 94% 07/23/2024 3:24 PM EST Inhaled Oxygen Concentration - - Weight - - Height - - Body Mass Index - - documented in this encounter Nursing Notes * Mariia Carrillo LPN - 07/23/2024 3:25 PM EST 1330: Pt arrived for Venofer / infusion. PIV in RFA. Pt tolerated well. VSS. Pt has no complaintsat this time. Patient instructed on use of heat and massage functions where applicable. Patient shown how to operate the heat function of the chair and to alert nursing staff if the chair feels too warm. Patient instructed on the risk of potential graves while using the heat function. 1515: Pt tolerated Venofer infusion well. PIV removed intact. Pt to return in one week. Discharged in stable condition. documented in this encounter Plan of Treatment Upcoming Encounters Date Type Department Care Team (Late st Contact Info) Description 07/29/2024 12:00 PM EST Hem/Onc Treatment Hematology/Oncology Treatment, [address] [phone] Claudia, Chair 1 Hem Onc [facility] [address] [place] [address] 08/25/2024 10:00 AM EDT Office Visit Family [address] [phone] Bharati Wang MD [address] [place] [address] [place] [address] 09/10/2024 11:30 AM EDT Office Visit Neurosurgery, [place] [address] [place] [address] Yann Jackson MD [address] [place] [phone] 09/18/2024 12:00 PM EDT Appointment Vascular Lab [facility], [place] [address] [place] [address] 09/18/2024 12:30 PM EDT Appointment Vascular Lab [facility], [place] [address] [place] [address] 09/18/2024 1:20 PM EDT Office Visit Vascular Surg [facility] [address] [place] [address] Samson Dennis MD [address] [place] [address] 09/24/2024 11:30 AM EDT Office Visit Gastroenterology, [facility] [address] [facility] [place] [address] Ester Wilson CRNP [address] [place] [address] Scheduled Procedures Name Priority Associated Diagnoses Date/Ti [...] D LEVEL ONCE IN A LIFETIME-USE SMARTSET# 25051 Completed 02/12/2018, 04/25/2015, 09/24/2014, Additional history exists Zoster Vaccines Completed 07/06/2019, 11/24, 09/13/2010 Albumin/Creatinine Ratio Discontinued 03/02/2024, 08/25 Influenza Vaccine (FLU shot) Completed 03/02/2024, 02/28/2023, 02/22/2022, Additional history exists RETIRED - COLONOSCOPY-EVERY 5 YRS AGES 18-100 Discontinued 07/09/2024, 07/27/2020, 07/27/2020, Additional history exists HPV (Gardasil) Vaccine Aged Out No lo nger eligible based on patient's age to complete this topic Hepatitis B Vaccine Aged Out No longe r eligible based on patient's age to complete this topic MENINGOCOCCAL (MENACTRA/MENVEO) Aged Out No longer eligible based on patient's age to complete this topic Meningitis B Vaccine (Bexsero/Trumemba) Aged Out No longer eligible based on patient's age to complete this topic documented as of this encounter Medical Devices Implanted Type Area Waterworks Pump Station Operator Device Identifier Shelf Expiration Date Model / Serial / Lot Coil Target 3d [id number] - [id number] Implanted:Qty : 1 on 04/15/2024 by Yann Jackson MD at [facility] N/A: Head ANNAMARIA : NEUROVASCULAR [id number] 12/16/2024 [id number] / / [id number] 6cm, Coil Swiftpac Implanted:Qty : 1 on 04/15/2024 by Yann Jackson MD at OR [facility] N/A: Head [employer] 12/16/2028 [id number] / / [id number] 45cm, Coil Swiftpac Implanted:Qty : 1 on 04/15/2024 by Yann Jackson MD at OR [facility] N/A: Head [employer] 12/16/2028 [id number] / / [id number] 60cm, Coil Swiftpac Implanted:Qty : 1 on 04/15/2024 by Yann Jackson MD at OR [facility] N/A: Head [employer] 11/02/2028 [id number] / / [id number] Coil Target 3d [id number] - [id number] Implanted:Qty : 1 on 04/15/2024 by Yann Jackson MD at OR [facility] N/A: Head [employer]NAM[employer] : NEUROVASCULAR [id number] 12/24/2024 [id number] 60 / / [id number] Coil Target 360 Soft 7ndj62ra - [id number] Implanted:Qty : 1 on 04/15/2024 by Yann Jackson MD at OR [facility] N/A: Head [employer]NAM[employer]IA : NEUROVASCULAR [id number] 06/23/2025 [id number] / / [id number] Coil Target 360 Ultra [id number] - [id number] Implanted:Qty : 1 on 04/15/2024 by Yann Jackson MD at OR [facility] N/A: Head [employer]NAM[employer]IA : NEUROVASCULAR [id number] 05/04/2026 [id number] / / [id number] Coil Target 360 Ultra 2umc1dl - [id number] Implanted:Qty : 1 on 04/15/2024 by Yann Jackson MD at OR [facility] N/A: Head ANNAMARIA : NEUROVASCULAR [id number] 02/03/2025 [id number] 80 / / [id number] 10cm, Coil [employer]pac Implanted:Qty : 2 on 04/15/2024 by Yann Jackson MD at OR [facility] N/A: Head [employer] 12/24/2028 [id number] / / [id number] 30cm, Coil [employer] Implanted:Qty : 1 on 04/15/2024 by Yann Jackson MD at OR [facility] N/A: Head [employer] 12/24/2028 [id number] / / [id number] 60cm, Coil [employer]pac Implanted:Qty : 1 on 04/15/2024 by Yann Jackson MD at OR [facility] N/A: Head [employer] 11/02/2028 [id number] / / [id number] 6cm, Coil [employer] Implanted:Qty : 1 on 04/15/2024 by Yann Jackson MD at OR [facility] N/A: Head [employer] 12/16/2028 [id number] / / [id number] Stent Vasc Hep [id number] - [id number] Implanted:Qty : 1 on 04/16/2024 by Samson Dennis MD at OR [facility] Left: Iliac [employer] [id number] 12/29/2026 [id number] / [id number] / [id number] documented as of this encounter Visit Diagnoses Diagnosis Iron deficiency anemia due to chronic blood loss- Primary Iron deficiency anemia secondary to blood loss (chronic) Acute blood loss anemia Acute posthemorrhagic anemia documented in this encounter Administered Medications Inactive Administered Medications - up to 3 most recent administrations Medication Order MAR Action Action Date Dose Rate Site Iron Sucrose (Venofer) 300 mg in NSS 250 mL ivpb 300 mg, IV Piggyback, ONCE, 1 dose, On Marjorie 07/23/24 at 1445, Administer over 90 MinutesIndications:Iron deficiency anemia due to chronic blood loss,Acute blood loss anemia Start Infusion 07/23/2024 1:32 PM EST 300 mg 180 mL/hr NSS infusion 500 mL, Intravenous, at 50 mL/hr, CONTINUOUS, Starting on Marjorie 07/23/24 at 1415, Until Marjorie 07/23/24 at 1948Indications:Iron deficiency anemia due to chronic blood loss,Acute blood loss anemia Start Infusion 07/23/2024 1:30 PM EST 500 mL 50 mL/hr documented in this encounter Advance Directives * [...] Discussed due to patient's condition Care Teams Coat Ironer Hand Relationship Specialty Start Date End Date Bharati Wang MD [address] [place] [address] [place] [phone] PCP - General Family Medicine 10/02/21 documented as of this encounter
--- OUTSIDE RECORDS SUMMARY | 2024-07-31 12:07 | External Medical Summary ---
Author Name Unknown Address Unknown Organization [facility] [place] [address] Laboratory Report Ordering Provider Test Date Status LEIDA STRINGER 07/24/2024 13:53:25 Final Observation Date Value Abnormality Reference (Units ) Status SYNC LEUKOCYTES IN BLOOD BY AUTOMATED COUNT 07/24/2024 13:53:25 5.75 4.00-10.80 (K/uL) Final Segs 07/24/2024 13:53:25 59.6 40.0-75.0 (%) Final Lymphs % 07/24/2024 13:53:25 25.0 18.0-42.0 (%) Final Monos 07/24/2024 13:53:25 12.3 Above high normal 1.0-11.0 (%) Final Eosinophils 07/24/2024 13:53:25 2.6 0.0-6.0 (%) Final Basos 07/24/2024 13:53:25 0.5 0.0-2.0 (%) Final Absolute Segs 07/24/2024 13:53:25 3.42 1.80-7.70 (K/uL) Final Lymphs, absolute 07/24/2024 13:53:25 1.44 1.00-4.80 (K/ul) Final Monos, Abs 07/24/2024 13:53:25 0.71 0.00-1.10 (K/uL) Final Eos, Abs 07/24/2024 13:53:25 0.15 0.00-0.70 (K/uL) Final Basos, Abs 07/24/2024 13:53:25 0.03 0.00-0.20 (K/uL) Final Performing Location [facility] [address] [place] [address]
--- OUTSIDE RECORDS SUMMARY | 2024-07-31 12:07 | External Medical Summary | Summary of Care ---
Author Name Unknown Organization [facility] Address [address] [place] [address] Phone [phone] Care Team Providers Care Apprentice Architect Name Role Phone Leticia Baum MD Primary Care Provide r Reason for Referral * Precert (Within 10 days (routine)) - Authorized Specialty Diagnoses / Procedures Referred By Cinda mane Referred To Contact Radiology Diagnoses Acute blood loss anemia Rectal bleeding Procedures VIDEO CAPSULE ENDOSCOPY Ester Wilson CRNP [address] [place] [address] Phone: tel: fax: Referral ID Status Reason Start Date Expiration Date V isits Requested Visits Authorized [id number] Authorized 07/24/2024 999 999 Reason for Visit * Reason Comments GI Bleed Was in [facility] the begi nning of June for rectal bleeding. Had C-Scope and EGD at that time. Encounter Details Date Type Department Care Team (Late st Contact Info) Description 07/24/2024 1:00 PM EST Office Visit Gastroenterology, [facility] [address] [address] Ester Wilson CRNP [address] [place] [address] Acute blood loss anemia*; Rectal bleeding; Chronic constipation Allergies Active Allergy Reactions Criticality Noted Date [...] Information Patient not taking.Informant: Patient, Reported on 07/24/2024 amLODIPine Besylate 5 MG Oral Tablet (Norvasc)Indica [...] mouth in the morning. 90 Tablet 1 Active Pantoprazole Sodium 40 MG Oral Packet (Protonix) Administer 40 mg into feeding tube in the morning and 40 mg before bedtime. Active Fluticasone Propionate 50 MCG/ACT Nasal Suspension (Flonase)Indica tions:Nasal congestion Administer 1 [place] into nostril in the morning. 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 Not on file Not on file Not on file documented as of this encounter Last Filed Vital Signs Vital Sign Reading Time Taken Comments Blood Pressure 130/66 07/24/2024 12:41 PM EST Pulse 54 07/24/2024 12:41 PM EST Temperature 36.7 C (98.1 F) 07/24/2024 1 2:41 PM EST Respiratory Rate - - Oxygen Saturation 96% 07/24/2024 12: 41 PM EST Inhaled Oxygen Concentration - - Weight 74.3 kg (163 lb 12.8 oz) 025 12:41 PM EST Height 162.6 cm (5' 4") 07/24/2024 12:4 1 PM EST Body Mass Index 28.12 07/24/2024 12:41 PM EST documented in this encounter Progress Notes * Caroline Lyles CMA - 07/24/2024 1:34 PM EST Symptoms: Anemia Bowel Movement Frequency: Once weekly Bowel Movement Consistency: hard Straining: yes Rectal Pain: no Blood in Stool: No Blood in Vomit: no Cardiac Pacemaker? no Pain stimulator or internal devices?no BMI >43? no Hx of EGD: yes Hx of Colonoscopy: yes Hx of UGI Series: no Hx of Bowel Obstruction: no WILL NEED TO HAVE PT SIGN CONSENT WITH PROVIDER AND PROVIDER WILL NEED TO PLACE ORDER SO THAT IT CAN BE AUTHORIZED. WE WILL THEN CONTACT THE PT FOR SCHEDULING. * Ester Wilson CRNP - 07/24/2024 12:51 PM EST Consult requested by REF: LETICIA BAUM [address] [place] [address] [place] [address] (office) [phone] (fax) CC: F/u GI Bleed HPI: 88 year old female pt of Leticia Baum MD with a hx of PVD post multiple vascular stents, Contreras's, COPD, HLD, HTN, CKD-3, psoriasis, DDD and VIt D deficiency who presents today for hospital follow up for GI bleed. At baseline, she has constipation. Was on Plavix and Eliquis. She recalls black, tarry BMs for the first 2 weeks of June, then one episode of bright red blood rectally on Saturday07/03/24, then presented to [facility]. She underwent EGD w/o cause of bleeding and colonoscopy w some fresh blood in the cecum but unable to find the location of the bleed (thought proximal to the cecum). Jaz was DC'ed, continues the Plavix. Since discharge 07/10/24, she hasn't had any black or red BMs. No abd pain, N/V. Receiving iron transfusions (one completed, 2 more planned). Was also flown to [place] in March for a retroperitoneal bleed, w Hb 6.2, received blood transfusions (was on Plavix, Eliquis and ASA at that time). No NSAID use. Diagnostic Testing: EGD 07/09/24 at [facility]: - Small hiatal hernia. - Normal stomach. - Scope advanced to the third part of the duodenum towards ligament of Treitz. No blood noted in the entire of the upper GI tract. No AVMs seen. - No specimens collected. - No source of bleeding upper GI tract. Proceed with colonoscopy today. 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 No clots in the left colon. Severe diverticulosis precluding safe advancement of the regular colonoscope. Switch to EGD scope which could be advanced all the way to the cecum. Only area of there appeared to be fresh blood was in the cecum. Extensive lavage of the cecum did not reveal any AVMs. On direct visualization blood could be seen coming through the actual IC valve. Entering the terminal ileum red blood present. No bleeding source within the distal ileum. - No specimens collected. NM bleeding scan 07/09/24: no active bleeding CTAP w IV 07/04/24: 1. Near complete resolution of the previously described retroperitoneal hemorrhage described on the04/21/2024 study with a small residual focus of subacute hemorrhage of the left retroperitoneum measuring up to 4.5 cm. 2. No bowel obstruction or bowel wall thickening. 3. Colonic diverticulosis without acute diverticulitis. 4. Cortical scarring and parenchymal thinning of the left kidney with coarse calcifications noted in the expected location of the previously described complex left renal cyst. 5. Incidental findings as above. CTA 07/08/24: 1. No sign of abdominal aortic aneurysm or dissection 2. No definite sign of renal or mesenteric artery stenosis 3. Mild stenoses of the left common iliac artery and the internal iliac arteries bilaterally 4. Patent stent in the left external iliac artery 5. 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 There is an apparent small focal dissection of the right external iliac artery as well 6. Mild stenosis of the left GATE PERSON 7. Unchanged left renal calculus, left renal cortical scarring, and bilateral renal cysts 8. Hepatic cyst - 2cm left lobe, stable 9. Diverticulosis without evidence of diverticulitis ROS (since discharge) + arms fatigues + exertional dyspnea/chest tightness occurred when walking at [facility] this week, lasted only a minute. + some mild lightheadedness, dizziness, "mostly just tired, weak" No fevers, chills, sweats No vision loss, eye pain, redness No oral ulcers No palpitations, syncope No cough, shortness of breath No rashes or other skin lesions No new joint pain, swelling, myalgias No edema No bleeding tendencies or excessive bruising A total of 12 systems were reviewed, all others (-). ALLERGIES: Review of patient's allergies indicates: Allergen Reactions Cephalosporins Other Reaction(s): Hives Cilastatin Other Reaction(s): Dyspnea Imipenem Other Reaction(s): Dyspnea Meropenem Other Reaction(s): Dyspnea Penicillamine Other Reaction(s): Dyspnea Ranitidine Other Reaction(s): Dyspnea Ampicillin Hives/trouble breathing Azithromycin hives and angioedema Carbapenems Other Reaction(s): Dyspnea PMH/PSH/Soc Hx reviewed, significant for: Past Medical History: Diagnosis Date ACUTE PEPTIC [...] of humerus, left, closed, initial encounter 08/07/2019 [facility] HTN, goal below 130/80 04/19/2009 Hypercalcemia 09/2008 Kidney disease, chronic, stage III (GFR 30-59 ml/min) ([facility]) Need for prophylactic hormone replacement therapy (postmenopausal) [...] ARTERY performed by Samson Dennis MD[place] [facility] BLEPHAROPTOSIS, FRONTALIS, REPAIR Bilateral 08/10/2015 CAROTID (INTERNAL) ARTERY CATHETHER PLACEMENT Bilateral 03/27/2024 CATHETER PLACEMENT INTERNAL CAROTID ARTERY RADIAL ACCESS performed by Yann Jackson MD at [place] [facility] CAROTID (INTERNAL) ARTERY CATHETHER PLACEMENT Bilateral 04/15/2024 CATHETER PLACEMENT INTERNAL CAROTID ARTERY performed by Yann Jackson MD at [place] [facility] CAROTID (EXTERNAL) ARTERY CATHETHER PLACEMENT Bilateral 03/27/2024 CATHETER PLACEMENT EXTERNAL CAROTID ARTERY performed by Yann Jackson MD at [facility] CAROTID (EXTERNAL) ARTERY CATHETHER PLACEMENT Bilateral 04/15/2024 CATHETER PLACEMENT EXTERNAL CAROTID ARTERY performed by Yann Jackson MD at [facility] CATHETER OCCLUSION/EMBOLIZATION,PHARMACY TECH N/A 04/15/2024 TRANSCATHETER PERMANENT ARTERIAL OCCLUSION CENTRAL NERVOUS SYSTEM performed by Yann Jackson MD at [facility] CERVICAL LAMINOPLAST W/DECOMP,RECON 06/17/2006 Dr. Potts COLONOSCOPY, DIAGNOSTIC (RECTUM) 03/08/2015 adenomatous polyps, repeat 5 yrs/COLONOSCOPY FLEXIBLE PROXIMAL DIAGNOSTIC performed by Rene Elise MD at ENDOSCOPY [facility] COLONOSCOPY, DIAGNOSTIC (RECTUM) 07/27/2020 benign adenomatous polyps / COLONOSCOPY FLEXIBLE PROXIMAL DIAGNOSTIC performed by Rene Elise MD at ENDOSCOPY [facility] COLONOSCOPY, GI REFERRAL OP 01/16/2005 Dr. Mcneil - diverticulosis CT SINUSES W WO CONTRAST 06/06/2006 air fluid levels in bilateral maxillary and sphenoid sinuses, frontal sinus opacified, mucosal thickening of ethmoids, left osteomeatal complex opacified, left nasal septal deviation EGD, FLEXIBLE, DIAGNOSTIC 11/14/2020 Barretts, hiatal hernia, repeat 6 mo / ESOPHAGOGASTRODUODENOSCOPY (EGD), FLEXIBLE, TRANSORAL, DIAGNOSTIC performed by Santi Edwards MD at ENDOSCOPY [facility] EGD, FLEXIBLE, DIAGNOSTIC 08/29/2021 Barretts, hiatal hernia, repeat 2 yrs / ESOPHAGOGASTRODUODENOSCOPY (EGD), FLEXIBLE, TRANSORAL, DIAGNOSTIC performed by Santi Edwards MD at ENDOSCOPY [facility] EGD, FLEXIBLE, DIAGNOSTIC 09/30/2020 Bleeding esophagitis with underlying Contreras's esophagus, repeat 6 wks / INPT [facility] EGD, FLEXIBLE, W/BIOPSY 08/16/2006 path-no abnormalities FULL PULMONARY FUNCTION TEST 05/2000 HEMORRHOIDECTOMY, SIMPLE, 1 COLUMN Remote past ILIAC ART. REVASC W/ STENT+ANGIOPLASTY 04/16/2024 ILIAC ARTERY REVASC W/ STENT+ANGIOPLASTY performed by Samson Dennis MD at [facility] INTRACRANIAL ARTERIES CATH PLACEMENT Bilateral 04/15/2024 CATHETER PLACEMENT EACH INTRACRANIAL BRANCH OF THE INTERNAL CAROTID OR VERTEBRAL ARTERIES performedby Yann Jackson MD at [place] [facility] IR ARTERIOGRAM EXTREMITY UNILATERAL 04/16/2024 IMAGING SUPERVISION & INTERPRETATION EXTREMITY UNILATERAL performed by Samson Dennis MD at [facility] L-/S-SPINE PARAVERTEBRAL FACET INJ,1 LEVEL 02/09/2019 L-/S-SPINE PARAVERTEBRAL FACET INJ, 1 LEVEL performed by Chris Caballero DO at [facility] L-/S-SPINE PARAVERTEBRL FACET INJ,2 LEVELS 02/09/2019 L-/S-SPINE PARAVERTEBRAL FACET INJ, 2 LEVELS performed by Chris Caballero DO at OR [facility] LUMBAR DISC ARTHROPLAST,REMV,ADDL INTERSPCE 01/2010 Dr Potts LUMBAR SPINE FUSION W/BONE GRAFT 02/23/2005 Dr. Potts - [facility] LUMBAR SPINE FUSION W/BONE GRAFT 07/19/2016 Dr. Potts - [facility] MAMMOGRAM SCREENING-BILATERAL 02/1999 REMOVAL OF OVARY/OVIDUCT(S) 18 yo right REMOVE CATARACT, INSERT LENS PROSTH 12/2004 bilateral - [facility] REMOVE GALLBLADDER REVERSE TOTAL SHOULDER ARTHROPLASTY Left 09/29/2020 [facility] [place] SACROILIAC JOINT INJECT W/GUIDANCE 11/13/2018 INJECTION SACROILIAC JOINT performed by Chris Dioni Caballero DO at OR [facility] SACROILIAC JOINT INJECT W/GUIDANCE 12/11/2018 INJECTION SACROILIAC JOINT performed by Chris Caballero DO at [facility] SHOULDER ARTHROSCOPY/SURGERY 06/07/2010 [facility] - [facility]- right shoulder repair SPINAL FUSION, LUMBAR, COMBINED 07/19/2016 Dr. 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 Tobacco Use Smoking status: Every Day Current packs/day: 1.00 Average packs/day: 1 pack/day for 57.8 years (57.8 ttl pk-yrs) Types: Cigarettes Start date: 1966 Smokeless tobacco: Never Tobacco comments: 06/19/24 1/2 pack daily, declined pamphlet Vaping Use Vaping status: Never Used Substance and Sexual Activity Alcohol use: No Drug use: No Other Topics Concern Service No Blood Transfusions Yes Caffeine Concern No Occupational Exposure No Hobby Hazards No Sleep Concern No Stress Concern No Weight Concern No Special Diet No Back Care Yes Exercise Yes Seat Belt Yes Social Needs Financial Resource Strain: Low Risk (04/20/2024) Financial Resource Strain Do you have any trouble paying for your medications, or do you think you might in the future? (Adult - for ages 18 years and over): No Food Insecurity: No Food Insecurity (04/22/2024) Food Insecurity Worried About Running Out of Food in the Last Year: Never true Ran Out of Food in the Last Year: Never true Do you need food for this week? (Adult - for ages 18 years and over): No Transportation Needs: No Transportation Needs (04/22/2024) Transportation Needs Has lack of transportation kept you from medical appointments, meetings, work, or from getting things needed for daily living? Check all that apply. (Adult - for ages 18 years and over): No Social Connections: Socially Integrated (04/20/2024) Social Connections How often do you feel lonely or isolated from those around you? (Adult - for ages 18 years and over): Never Housing Stability: Low Risk (04/22/2024) Housing Stability Do you currently live in a custodial or have no steady place to sleep at night? (Adult - for ages 18 years and over): No Are you homeless or worried that you might be in the future? (Adult - for ages 18 years and over): No Family history reviewed and significant for: Family History Problem Relation Name Age of Onset Other (CAD) Father Hypertension Mother Current Outpatient Medications Medication Sig Dispense Refill Fluticasone Propionate 50 MCG/ACT Nasal Suspension (Flonase) Administer 1 [place] into nostril in themorning. 16 g 0 Pantoprazole Sodium 40 MG Oral Packet (Protonix) Administer 40 mg into feeding tube in the morning and 40 mg before bedtime. Lisinopril 20 MG Oral Tablet (Prinivil) Take 1 Tablet by mouth in the morning. 90 Tablet 1 Clopidogrel Bisulfate 75 MG Oral Tablet (pLAVix) Take 1 Tablet by mouth in the morning. 30 Tablet 5 amLODIPine Besylate 5 MG Oral Tablet (Norvasc) TAKE ONE TABLET BY MOUTH EVERY MORNING 90 Tablet 3 Rosuvastatin Calcium 20 MG Oral Tablet (Crestor) TAKE ONE TABLET BY MOUTH EVERY DAY 90 Tablet 3 Cyanocobalamin 1000 MCG Oral Tablet Take 1 Tablet by mouth daily at noon. TYLENOL EX ST ARTHRITIS PAIN 500 MG PO TABS Take by mouth. VITAMIN D 2000 UNITS PO CAPS Take 1 Capsule by mouth daily with dinner. Loratadine 10 MG Oral Tablet (Claritin) Take 1 Tablet by mouth every night at bedtime. (Patient nottaking: Reported on 07/24/2024) 30 Tablet 11 No current facility-administered medications for this visit. EXAM: BP 130/66 | Pulse 54 | Temp 36.7 C (98.1 F) | Ht 1.626 m (5' 4") | Wt 74.3 kg (163 lb 12.8 oz) | SpO2 96% | BMI 28.12 kg/m | BSA 1.83 m GENERAL: 88 year old female well developed and well nourished in no acute distress SKIN: no rashes, ulcers, or spider angiomata HEENT: normocephalic, sclera clear, pharynx normal NECK: supple, no lymphadenopathy, no masses or thyroid enlargement LUNGS: clear to auscultation anterior and posterior HEART: regular rate & rhythm, no murmurs and no gallops ABDOMEN: normo-active bowel sounds, soft, non-tender, non-distended no masses, no hepatosplenomegaly, no rebound or guarding, no bruits EXTREMITIES: no palmar erythema, no edema, no skin discoloration, no clubbing, no cyanosis NEURO: no lateralizing findings, Sensory/Motor grossly normal IMPRESSION/RECOMMENDATIONS: 88 year old female with Acute blood loss anemia (Primary)/Rectal bleeding - CBC WITH WBC DIFFERENTIAL; Future; Expected date: 07/24/2024 - VIDEO CAPSULE ENDOSCOPY Chronic constipation Miralax 1-2 capfuls daily each in 8oz of liquid. Take one dulcolax pill if no BM in 24 hrs. In light of recent brief chest pressure with walking around [facility], no long walks, take lots of breaks, we will help her out of [employer] by taking on a wheelchair to the lab and then to her car.If any further chest pressure to ED. ( tells me she is up and around all the time at home, that she doesn't rest). Encouraged to get more rest. Continue iron infusions as planned. Video Capsule Endoscopy will be scheduled after insurance authorization is obtained. This is indicated to evaluate for GI bleed. EGD, Colonoscopy was without evidence of the site of bleeding. The patient was made aware of the 1% risk of obstruction and emergency surgery with this procedure. He consents to the procedure. No hx of prior abd surgeries or bowel obstructions. Recheck in GI in 2m, will discuss results and continue to address constipation. I spent a total of 60 minutes on the date of service in review of patient's record, and previously obtained information in person and appropriate medical visit, discussion and education of plan, withpatient and/or caregiver, placing orders for tests/referral/procedures as medically necessary and documentation of pertinent clinical information in patient's medical records for their visit today. [facility] Gastroenterology documented in this encounter Nursing Notes * Liana Boyer LPN - 07/24/2024 12:41 PM EST Chief Complaint Patient presents with GI Bleed Was in [facility] the beginning of June for rectal bleeding. Had C-Scope and EGD at that time. documented in this encounter Plan of Treatment Upcoming Encounters Date Type Department Care Team (Late st Contact Info) Description 07/29/2024 12:00 PM EST Hem/Onc Treatment Hematology/Oncology Treatment, [place] [address] [facility] [place] [address] Claudia, Chair 1 Hem Onc [facility] [address] [facility] [place] [address] 08/25/2024 10:00 AM EDT Office Visit Family [address] [address] Leticia Baum MD [address] [place] [address] [place] [address] 09/10/2024 11:30 AM EDT Office Visit Neurosurgery, [place] [address] [place] [address] Yann Jackson MD [address] [place] [address] 09/18/2024 12:00 PM EDT Appointment Vascular [facility] [place] [address] [place] [address] 09/18/2024 12:30 PM EDT Appointment Vascular Lab [place] [address] [place] [address] 09/18/2024 1:20 PM EDT Office Visit Vascular Surg [place] [address] [place] [address] Samson Dennis MD [address] [place] [address] 09/24/2024 11:30 AM EDT Office Visit Gastroenterology, [facility] [address] [facility] [place] [address] Ester Wilson CRNP [address] [facility] [place] [address] Scheduled Orders Name Type Priority Associated Diagnoses Orde r Schedule VIDEO CAPSULE ENDOSCOPY Gastro Upper Routine Acute blood loss anemia Rectal bleeding Ordered: 07/24/2024 Scheduled Procedures Name Priority Associated Diagnoses Date/Ti me ESOPHAGOGASTRODUODENOSCOPY ( EGD), FLEXIBLE, TRANSORAL, DIAGNOSTIC Recall Contreras esophagus Health Maintenance Due Date Last Done Comments Alpha-1 Antitrypsin 1953 Adult Wellness Visit 2002 DXA Scan 04/06/2018 04/06/2016, 09/2012, 02/08/2011, Additional history exists DISCUSS TOBACCO CESSATION (REFER TO SMARTSET #3276) 08/01/2018 08/01/2017 (Discussed) DTap/Tdap Vaccines (2 - [...] D LEVEL ONCE IN A LIFETIME-USE SMARTSET# 44989 Completed 02/12/2018, 04/25/2015, 09/24/2014, Additional history exists [...] this encounter Medical Devices Implanted Type Area Handwriting Expert Device Identifier Shelf Expiration Date Model / Serial / Lot Coil Target 3d [id number] - [id number] Implanted:Qty : 1 on 04/15/2024 by Yann Jackson MD [place] [facility] N/A: Head ANNAMARIA : NEUROVASCULAR [id number] 12/16/2024 [id number] / / [id number] 6cm, Coil Swiftpac Implanted:Qty : 1 on 04/15/2024 by Yann Jackson MD at [place] [facility] N/A: Head [employer] 12/16/2028 [id number] / / [id number] 45cm, Coil Swiftpac Implanted:Qty : 1 on 04/15/2024 by Yann Jackson MD at [place] [facility] N/A: Head [employer] 12/16/2028 [id number] / / [id number] 60cm, Coil Swiftpac Implanted:Qty : 1 on 04/15/2024 by Yann Jackson MD at [place] [facility] N/A: Head [employer] 11/02/2028 [id number] / / [id number] Coil Target 3d [id number] - [id number] Implanted:Qty : 1 on 04/15/2024 by Yann Jackson MD at [place] [facility] N/A: Head ANNAMARIA : NEUROVASCULAR [id number] 12/24/2024 [id number] 60 / / [id number] Coil Target 360 Soft 1eft63pk - [id number] Implanted:Qty : 1 on 04/15/2024 by Yann Jackson MD at [place] [facility] N/A: Head ANNAMARIA : NEUROVASCULAR [id number] 06/23/2025 [id number] / / [id number] Coil Target 360 Ultra [id number] - [id number] Implanted:Qty : 1 on 04/15/2024 by Yann Jackson MD at [place] [facility] N/A: Head ANNAMARIA : NEUROVASCULAR [id number] 05/04/2026 [id number] / / [id number] Coil Target 360 Ultra [id number] - [id number] Implanted:Qty : 1 on 04/15/2024 by Yann Jackson MD at [place] [facility] N/A: Head ANNAMARIA : NEUROVASCULAR [id number] 02/03/2025 [id number] 80 / / [id number] 10cm, Coil [employer]pac Implanted:Qty : 2 on 04/15/2024 by Yann Jackson MD at [place] [facility] N/A: Head [employer] 12/24/2028 [id number] / / [id number] 30cm, Coil Swiftpac Implanted:Qty : 1 on 04/15/2024 by Yann Jackson MD at [place] [facility] N/A: Head [employer] 12/24/2028 [id number] / / [id number] 60cm, Coil [employer] Implanted:Qty : 1 on 04/15/2024 by Yann Jackson MD at [place] [facility] N/A: Head [employer] 11/02/2028 [id number] / / [id number] 6cm, Coil [employer] Implanted:Qty : 1 on 04/15/2024 by Yann Jackson MD at [place] [facility] N/A: Head [employer] 12/16/2028 [id number] / / [id number] Stent Vasc Hep [id number] - [id number] Implanted:Qty : 1 on 04/16/2024 by Samson Dennis MD at [place] [facility] Left: Iliac [employer] [id number] 12/29/2026 [id number] / [id number] / [id number] documented as of this encounter Visit Diagnoses Diagnosis Acute blood loss anemia- Primary Acute posthemorrhagic anemia Rectal bleeding Hemorrhage of rectum and anus Chronic constipation Unspecified constipation documented in this encounter Advance Directives * [...] Discussed due to patient's condition Care Teams Apprentice Architect Relationship Specialty Start Date End Date Leticia Baum MD [address] [place] [address] [place] [phone] PCP - General Family Medicine 10/02/21 documented as of this encounter
--- OUTSIDE RECORDS SUMMARY | 2024-07-31 12:07 | External Medical Summary | Summary of Care ---
Author Name Unknown Organization [facility] Address [address] [place] [address] Phone [phone] Care Team Providers Care Seo Intern Name Role Phone Bharati Wang MD Primary Care Provide r Encounter Details Date Type Department Care Team (Late st Contact Info) Description 07/27/2024 Orders Only Hematology/Oncology Treatment, [place] [address] [place] [address] Tamica Espinal MD [address] [place] [address] [place] [phone] Allergies Active Allergy Reactions Criticality Noted Date [...] as of this encounter (statuses as of 07/27/2024) Medications VITAMIN D 2000 UNITS PO CAPS [...] Nasal Suspension (Flonase)Indica tions:Nasal congestion Administer 1 [place] into nostril in the morning. 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 Not on file Not on file Not on file documented as of this encounter Plan of Treatment Upcoming Encounters Date Type Department Care Team (Late st Contact Info) Description 07/29/2024 12:00 PM EST Hem/Onc Treatment Hematology/Oncology Treatment, [place] [address] [place] [phone] Claudia, Chair 1 Hem Onc [facility] [address] [place] [address] 08/25/2024 10:00 AM EDT Office Visit Family Medicine [address] [place] [address] Bharati Wang MD [address] [place] [address] [place] [address] 09/10/2024 11:30 AM EDT Office Visit Neurosurgery, [place] [address] [place] [address] Yann Jackson MD [address] [place] [address] 09/18/2024 12:00 PM EDT Appointment Vascular Lab [facility] [address] [place] [address] 09/18/2024 12:30 PM EDT Appointment Vascular Lab [place] [address] [place] [address] 09/18/2024 1:20 PM EDT Office Visit Vascular Surg [facility] [address] [place] [address] Samson Dennis MD [address] [place] [address] 09/24/2024 11:30 AM EDT Office Visit Gastroenterology, [facility] [address] [place] [address] Ester Wilson CRNP [address] [place] [address] Scheduled Procedures Name Priority Associated Diagnoses Date/Ti me ESOPHAGOGASTRODUODENOSCOPY ( EGD), FLEXIBLE, TRANSORAL, DIAGNOSTIC Recall Contreras esophagus Health Maintenance Due Date Last Done Comments Alpha-1 Antitrypsin 1953 Adult Wellness Visit 2002 DXA Scan 04/06/2018 04/06/2016, 09/2012, 02/08/2011, Additional history exists DISCUSS TOBACCO CESSATION (REFER TO SMARTSET #3563) 08/01/2018 08/01/2017 (Discussed) DTap/Tdap Vaccines (2 - [...] D LEVEL ONCE IN A LIFETIME-USE SMARTSET# 50126 Completed 02/12/2018, 04/25/2015, 09/24/2014, Additional history exists [...] this encounter Medical Devices Implanted Type Area Alterations Tailor Device Identifier Shelf Expiration Date Model / Serial / Lot Coil Target 3d [id number] - [id number] Implanted:Qty : 1 on 04/15/2024 by Yann Jackson MD at OR [facility] N/A: Head ANNAMARIA : NEUROVASCULAR [id number] 12/16/2024 [id number] 60 / / [id number] 6cm, Coil Swiftpac Implanted:Qty : 1 on 04/15/2024 by Yann Jackson MD at OR [facility] N/A: Head [employer] 12/16/2028 [id number] / / [id number] 45cm, Coil Swiftpac Implanted:Qty : 1 on 04/15/2024 by Yann Jackson MD at OR [facility] N/A: Head [employer] 12/16/2028 [id number] / / [id number] 60cm, Coil Swiftpac Implanted:Qty : 1 on 04/15/2024 by Yann Jackson MD at OR [facility] N/A: Head [employer] 11/02/2028 [id number] / / [id number] Coil Target 3d 8urx3ds - [id number] Implanted:Qty : 1 on 04/15/2024 by Yann Jackson MD at OR [facility] N/A: Head ANNAMARIA : NEUROVASCULAR [id number] 12/24/2024 [id number] 60 / / [id number] Coil Target 360 Soft [id number] - [id number] Implanted:Qty : 1 on 04/15/2024 by Yann Jackson MD at OR [facility] N/A: Head ANNAMARIA : NEUROVASCULAR [id number] 06/23/2025 [id number] / / [id number] Coil Target 360 Ultra 0orr86en - [id number] Implanted:Qty : 1 on 04/15/2024 by Yann Jackson MD at OR [facility] N/A: Head ANNAMARIA : NEUROVASCULAR [id number] 05/04/2026 [id number] / / [id number] Coil Target 360 Ultra 0puf1ri - [id number] Implanted:Qty : 1 on 04/15/2024 by Yann Jackson MD at OR [facility] N/A: Head ANNAMARIA : NEUROVASCULAR [id number] 02/03/2025 [id number] 80 / / [id number] 10cm, Coil Swiftpac Implanted:Qty : 2 on 04/15/2024 by Yann Jackson MD at OR [facility] N/A: Head [employer] 12/24/2028 [id number] / / [id number] 30cm, Coil Swiftpac Implanted:Qty : 1 on 04/15/2024 by Yann Jackson MD at OR [facility] N/A: Head [employer] 12/24/2028 [id number] / / [id number] 60cm, Coil Swiftpac Implanted:Qty : 1 on 04/15/2024 by Yann Jackson MD at OR [facility] N/A: Head [employer] 11/02/2028 [id number] / / [id number] 6cm, Coil Swiftpac Implanted:Qty : 1 on 04/15/2024 by Yann Jackson MD at OR [facility] N/A: Head [employer] 12/16/2028 [id number] / / [id number] Stent Vasc Hep 8mmx7.9z134yi - [id number] Implanted:Qty : 1 on 04/16/2024 by Samson Dennis MD at OR [facility] Left: Iliac [employer] [id number] 12/29/2026 [id number] / [id number] / [id number] documented as of this encounter Advance Directives [...] Discussed due to patient's condition Care Teams Seo Intern Relationship Specialty Start Date End Date Bharati Wang MD [address] [place] [address] [place] [address] PCP - General Family Medicine 10/02/21 documented as of this encounter
--- OUTSIDE RECORDS SUMMARY | 2024-07-31 12:07 | External Medical Summary | Summary of Care ---
Author Name Unknown Organization [facility] Address [address] [place] [address] Phone [phone] Care Team Providers Care Hemmer Chainstitch Name Role Phone Leticia Baum MD Primary Care Provide r Reason for Referral * Precert (Within 10 days (routine)) - Authorized Specialty Diagnoses / Procedures Referred By Cinda mane Referred To Contact Radiology Diagnoses Acute blood loss anemia Rectal bleeding Procedures VIDEO CAPSULE ENDOSCOPY Ester Wilson CRNP [address] [place] [address] Phone: tel: fax: Referral ID Status Reason Start Date Expiration Date V isits Requested Visits Authorized [id number] Authorized 07/24/2024 999 999 Reason for Visit * Reason Comments GI Bleed Was in [facility] the begi nning of June for rectal bleeding. Had C-Scope and EGD at that time. Encounter Details Date Type Department Care Team (Late st Contact Info) Description 07/24/2024 1:00 PM EST Office Visit Gastroenterology, [facility] [address] [place] [address] Ester Wilson CRNP [address] [place] [address] Acute blood loss anemia*; Rectal bleeding; Chronic [...] Nasal Suspension (Flonase)Indica tions:Nasal congestion Administer 1 [place] into nostril in the morning. 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 She underwent EGD w/o cause of [...] 2 more planned). Was also flown to [place] in March for a retroperitoneal bleed, w Hb 6.2, received blood transfusions (was on Plavix, Eliquis and ASA at that time). No NSAID use. Diagnostic Testing: EGD 07/09/24 at [facility]: - Small hiatal hernia. - Normal [...] well 6. 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 Unchanged left renal calculus, left renal cortical scarring, and bilateral renal cysts 8. Hepatic cyst - 2cm left lobe, stable 9. Diverticulosis without evidence of diverticulitis ROS (since discharge) + arms fatigues + exertional dyspnea/chest tightness occurred when walking at [facility] this week, lasted only a minute. + [...] of humerus, left, closed, initial encounter 08/07/2019 [place] [facility] HTN, goal below 130/80 04/19/2009 Hypercalcemia 09/2008 Kidney disease, chronic, stage III (GFR 30-59 ml/min) ([facility]) Need for prophylactic hormone replacement therapy [...] ARTERY performed by Samson Dennis MDat [facility] BLEPHAROPTOSIS, FRONTALIS, REPAIR Bilateral 08/10/2015 CAROTID (INTERNAL) ARTERY CATHETHER PLACEMENT Bilateral 03/27/2024 CATHETER PLACEMENT INTERNAL CAROTID ARTERY RADIAL ACCESS performed by Yann Jackson MD at OR [facility] CAROTID (INTERNAL) ARTERY CATHETHER PLACEMENT Bilateral 04/15/2024 CATHETER PLACEMENT INTERNAL CAROTID ARTERY performed by Yann Jackson MD at OR [facility] CAROTID (EXTERNAL) ARTERY CATHETHER PLACEMENT Bilateral 03/27/2024 CATHETER PLACEMENT EXTERNAL CAROTID ARTERY performed by Yann Jackson MD at [facility] CAROTID (EXTERNAL) ARTERY CATHETHER PLACEMENT Bilateral 04/15/2024 CATHETER PLACEMENT EXTERNAL CAROTID ARTERY performed by Yann Jackson MD at [facility] CATHETER OCCLUSION/EMBOLIZATION,HAND METHOD LASTING MACHINE OPERATOR N/A 04/15/2024 TRANSCATHETER PERMANENT ARTERIAL OCCLUSION CENTRAL NERVOUS SYSTEM performed by Yann Jackson MD at [facility] CERVICAL LAMINOPLAST W/DECOMP,RECON 06/17/2006 Dr. Potts COLONOSCOPY, DIAGNOSTIC (RECTUM) 03/08/2015 adenomatous polyps, repeat 5 yrs/COLONOSCOPY FLEXIBLE PROXIMAL DIAGNOSTIC performed by Rene Elise MD at ENDOSCOPY [facility] COLONOSCOPY, DIAGNOSTIC (RECTUM) 07/27/2020 benign adenomatous polyps / COLONOSCOPY FLEXIBLE PROXIMAL DIAGNOSTIC performed by Rene Elise MD at ENDOSCOPY [facility] COLONOSCOPY, GI REFERRAL OP 01/16/2005 Dr. Mcneil - diverticulosis CT SINUSES W WO CONTRAST 06/06/2006 air fluid levels in bilateral maxillary and sphenoid sinuses, frontal sinus opacified, mucosal thickening of ethmoids, left osteomeatal complex opacified, left nasal septal deviation EGD, FLEXIBLE, DIAGNOSTIC 11/14/2020 [place], hiatal hernia, repeat 6 mo / ESOPHAGOGASTRODUODENOSCOPY (EGD), FLEXIBLE, TRANSORAL, DIAGNOSTIC performed by Santi Edwards MD at ENDOSCOPY [facility] EGD, FLEXIBLE, DIAGNOSTIC 08/29/2021 [place], hiatal hernia, repeat 2 yrs / ESOPHAGOGASTRODUODENOSCOPY (EGD), FLEXIBLE, TRANSORAL, DIAGNOSTIC performed by Santi Edwards MD at ENDOSCOPY [facility] EGD, FLEXIBLE, DIAGNOSTIC 09/30/2020 Bleeding esophagitis with underlying Contreras's esophagus, repeat 6 wks / INPT [facility] EGD, FLEXIBLE, W/BIOPSY 08/16/2006 path-no abnormalities FULL PULMONARY FUNCTION TEST 05/2000 HEMORRHOIDECTOMY, SIMPLE, 1 COLUMN Remote past ILIAC ART. REVASC W/ STENT+ANGIOPLASTY 04/16/2024 ILIAC ARTERY REVASC W/ STENT+ANGIOPLASTY performed by Samson Dennis MD at [facility] INTRACRANIAL ARTERIES CATH PLACEMENT Bilateral 04/15/2024 CATHETER PLACEMENT EACH INTRACRANIAL BRANCH OF THE INTERNAL CAROTID OR VERTEBRAL ARTERIES performedby Yann Jackson MD at OR [facility] IR ARTERIOGRAM EXTREMITY UNILATERAL 04/16/2024 IMAGING SUPERVISION & INTERPRETATION EXTREMITY UNILATERAL performed by Samson Dennis MD at [facility] L-/S-SPINE PARAVERTEBRAL FACET INJ,1 LEVEL 02/09/2019 L-/S-SPINE PARAVERTEBRAL FACET INJ, 1 LEVEL performed by Chris Caballero DO at [facility] L-/S-SPINE PARAVERTEBRL FACET INJ,2 LEVELS 02/09/2019 L-/S-SPINE PARAVERTEBRAL FACET INJ, 2 LEVELS performed by Chris Caballero DO at OR [facility] LUMBAR DISC ARTHROPLAST,REMV,ADDL INTERSPCE 01/2010 Dr Potts LUMBAR SPINE FUSION W/BONE GRAFT 02/23/2005 Dr. Potts - [facility] LUMBAR SPINE FUSION W/BONE GRAFT 07/19/2016 Dr. Potts - [facility] MAMMOGRAM SCREENING-BILATERAL 02/1999 REMOVAL OF OVARY/OVIDUCT(S) 18 yo right REMOVE CATARACT, INSERT LENS PROSTH 12/2004 bilateral - [facility] REMOVE GALLBLADDER REVERSE TOTAL SHOULDER ARTHROPLASTY Left 09/29/2020 [facility] [place] SACROILIAC JOINT INJECT W/GUIDANCE 11/13/2018 INJECTION SACROILIAC JOINT performed by Chris Dioni Caballero DO at OR [facility] SACROILIAC JOINT INJECT W/GUIDANCE 12/11/2018 INJECTION SACROILIAC JOINT performed by Chris Caballero DO at [facility] SHOULDER ARTHROSCOPY/SURGERY 06/07/2010 [facility] - [facility]- right shoulder repair SPINAL FUSION, LUMBAR, COMBINED 07/19/2016 Dr. 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 Tobacco Use Smoking status: [...] Stability Do you currently live in a longterm or have no steady place to sleep [...] 50 MCG/ACT Nasal Suspension (Flonase) Administer 1 [place] into nostril in themorning. 16 g 0 [...] recent brief chest pressure with walking around [facility], no long walks, take lots of breaks, we will help her out of [employer] [place] by taking on a wheelchair to [...] records for their visit today. [facility] [address] Gastroenterology documented in this encounter Nursing Notes * Liana Boyer LPN - 07/24/2024 12:41 PM EST Chief Complaint Patient presents with GI Bleed Was in [facility] the beginning of June for rectal bleeding. Had C-Scope and EGD at that time. documented in this encounter Plan of Treatment Upcoming Encounters Date Type Department Care Team (Late st Contact Info) Description 07/29/2024 12:00 PM EST Hem/Onc Treatment Hematology/Oncology Treatment, [place] [address] [facility] [place] [address] Claudia, Chair [address] [facility] [address] [facility] [place] [address] 08/25/2024 10:00 AM EDT Office Visit Family [address] [address] Leticia Baum MD [address] [place] [address] [place] [address] 09/10/2024 11:30 AM EDT Office Visit Neurosurgery, [place] [address] [place] [address] Yann Jackson MD [address] [place] [address] 09/18/2024 12:00 PM EDT Appointment Vascular Lab [place] [address] [place] [address] 09/18/2024 12:30 PM EDT Appointment Vascular Lab [place] [address] [place] [address] 09/18/2024 1:20 PM EDT Office Visit Vascular Surg [place] [address] [place] [address] Samson Dennis MD [address] [place] [address] 09/24/2024 11:30 AM EDT Office Visit Gastroenterology, [facility] [address] [facility] [place] [address] Ester Wilson CRNP 132 [facility] [place] [address] Scheduled Orders Name Type Priority Associated Diagnoses [...] exists DISCUSS TOBACCO CESSATION (REFER TO SMARTSET #3783) 08/01/2018 08/01/2017 (Discussed) DTap/Tdap Vaccines (2 - [...] D LEVEL ONCE IN A LIFETIME-USE SMARTSET# 11261 Completed 02/12/2018, 04/25/2015, 09/24/2014, Additional history exists [...] this encounter Medical Devices Implanted Type Area Clinical Resource Director Device Identifier Shelf Expiration Date Model / Serial / Lot Coil Target 3d [id number] - [id number] Implanted:Qty : 1 on 04/15/2024 by Yann Jackson MD at OR [facility] N/A: Head ANNAMARIA : NEUROVASCULAR [id number] 12/16/2024 [id number] 60 / / [id number] 6cm, Coil Swiftpac Implanted:Qty : 1 on 04/15/2024 by Yann Jackson MD at OR [facility] N/A: Head [employer] 12/16/2028 [id number] / / [id number] 45cm, Coil Swiftpac Implanted:Qty : 1 on 04/15/2024 by Yann Jackson MD at OR [facility] N/A: Head [employer] 12/16/2028 [id number] / / [id number] 60cm, Coil Swiftpac Implanted:Qty : 1 on 04/15/2024 by Yann Jackson MD at OR [facility] N/A: Head [employer] 11/02/2028 [id number] / / [id number] Coil Target 3d 0vlg6sb - [id number] Implanted:Qty : 1 on 04/15/2024 by Yann Jackson MD at OR [facility] N/A: Head ANNAMARIA : NEUROVASCULAR [id number] 12/24/2024 [id number] 60 / / [id number] Coil Target 360 Soft 1cxi53cm - [id number] Implanted:Qty : 1 on 04/15/2024 by Yann Jackson MD at OR [facility] N/A: Head ANNAMARIA : NEUROVASCULAR [id number] 06/23/2025 [id number] 00 / / [id number] Coil Target 360 Ultra 6byw32of - [id number] Implanted:Qty : 1 on 04/15/2024 by Yann Jackson MD at OR [facility] N/A: Head ANNAMARIA : NEUROVASCULAR [id number] 05/04/2026 [id number] / / [id number] Coil Target 360 Ultra 5nzb4da - [id number] Implanted:Qty : 1 on 04/15/2024 by Yann Jackson MD at OR [facility] N/A: Head ANNAMARIA : NEUROVASCULAR [id number] 02/03/2025 [id number] 80 / / [id number] 10cm, Coil Swiftpac Implanted:Qty : 2 on 04/15/2024 by Yann Jackson MD at OR [facility] N/A: Head [employer] 12/24/2028 [id number] / / [id number] 30cm, Coil Swiftpac Implanted:Qty : 1 on 04/15/2024 by Yann Jackson MD at OR [facility] N/A: Head [employer] 12/24/2028 [id number] / / [id number] 60cm, Coil Swiftpac Implanted:Qty : 1 on 04/15/2024 by Yann Jackson MD at OR [facility] N/A: Head [employer] 11/02/2028 [id number] / / [id number] 6cm, Coil Swiftpac Implanted:Qty : 1 on 04/15/2024 by Yann Jackson MD at OR [facility] N/A: Head [employer] 12/16/2028 [id number] / / [id number] Stent Vasc Hep 8mmx7.7f654xi - [id number] Implanted:Qty : 1 on 04/16/2024 by Samson Dennis MD at OR [facility] Left: Iliac [employer] [id number] 12/29/2026 [id number] / [id number] documented as of this encounter Visit Diagnoses [...] Discussed due to patient's condition Care Teams Hemmer Chainstitch Relationship Specialty Start Date End Date Leticia Baum MD [address] [place] [address] [place] [phone] PCP - General Family Medicine 10/02/21 documented as of this encounter
--- OUTSIDE RECORDS SUMMARY | 2024-07-31 12:07 | External Medical Summary ---
Author Name Unknown Address Unknown Organization [id number]:[facility] [address] [place] [address] Laboratory Report Ordering Provider Test Date Status LEIDA STRINGER 07/24/2024 13:53:25 Final Observation Date Value Abnormality Reference (Units ) Status WBC, Total 07/24/2024 13:53:25 5.75 4.00-10.8 0 (K/uL) Final RBC 07/24/2024 13:53:25 3.05 3.85-5.15 (M/uL) Final Hemoglobin 07/24/2024 13:53:25 8.0 Below low normal 12 .0-15.3 (g/dL) Final HCT 07/24/2024 13:53:25 26.5 Below low normal 36. 0-45.2 (%) Final MCV 07/24/2024 13:53:25 86.9 81.5-97.5 (fL) Final MCH 07/24/2024 13:53:25 26.2 27.0-34.0 (pg) Final MCHC 07/24/2024 13:53:25 30.2 32.0-36.0 (g/dL) Final RDW 07/24/2024 13:53:25 15.3 11.5-15.5 (%) Final Platelets 07/24/2024 13:53:25 208 140-400 (K /uL) Final MPV 07/24/2024 13:53:25 9.4 6.6-11.1 ( fL) Final Performing Location [facility] [address] [place] [address]
--- OUTSIDE RECORDS SUMMARY | 2024-07-31 12:07 | External Medical Summary | Summary of Care ---
Author Name Unknown Organization [facility] Address [address] [place] [address] Phone [phone] Care Team Providers Care Research Director Name Role Phone Bharati Wang MD Primary Care Provide r Reason for Visit * Reason Comments Infusion Venofer 2/4 Encounter Details Date Type Department Care Team (Latest Contact Info) Description 07/29/2024 12:00 PM EST Hem/Onc Treatment Hematology/Oncology Treatment, [address] [phone] Claudia, Chair 1 Hem Onc [address] [address] Iron deficiency anemia due to chronic blood [...] as of this encounter (statuses as of 07/29/2024) Medications VITAMIN D 2000 UNITS PO CAPS [...] Nasal Suspension (Flonase)Indica tions:Nasal congestion Administer 1 [place] into nostril in the morning. 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 Not on file Not on file Not on file documented as of this encounter Last Filed Vital Signs Vital Sign Reading Time Taken Comments Blood Pressure 114/66 07/29/2024 12:16 PM EST Pulse 80 07/29/2024 12:16 PM EST Temperature 36.5 C (97.7 F) 07/29/2024 12:[address] Respiratory Rate 16 07/29/2024 12:16 PM EST Oxygen Saturation 94% 07/29/2024 12:16 PM EST Inhaled Oxygen Concentration - - Weight - - Height - - Body Mass Index - - documented in this encounter Nursing Notes * Mariia Carrillo LPN - 07/29/2024 1:15 PM EST 1215: Pt arrived for Venofer 2/4 infusion. PIV in RFA. Pt tolerated well. VSS. Pt has no complaintsat this time. Patient instructed on use of heat and massage functions where applicable. Patient shown how to operate the heat function of the chair and to alert nursing staff if the chair feels too warm. Patient instructed on the risk of potential graves while using the heat function. 1405: Pt tolerated Venofer infusion well. PIV removed intact. Pt to return in one week. Discharged in stable condition. documented in this encounter Plan of Treatment Upcoming Encounters Date Type Department Care Team (Late st Contact Info) Description 08/06/2024 12:00 PM EDT Hem/Onc Treatment Hematology/Oncology Treatment, [address] [place] [phone] Claudia, Chair [address] [place] [address] 08/12/2024 12:00 PM EDT Hem/Onc Treatment Hematology/[address] [phone] Claudia, Chair 6 Hem Onc Scenery [address] [place] [address] [place] [address] 08/25/2024 10:00 AM EDT Office Visit Family Medicine [address] [place] [phone] Bharati Wang MD [address] [place] [address] [place] [address] 09/10/2024 11:30 AM EDT Office [address], [place] [id number] Yann Jackson MD [address] [place] [address] 09/18/2024 12:00 PM EDT Appointment Vascular Lab [facility] [address] [place] [address] 09/18/2024 12:30 PM EDT Appointment Vascular Lab [facility] [address] [place] [address] 09/18/2024 1:20 PM EDT Office Visit Vascular Surg [facility] [address] [place] [address] Samsno Dennis MD [address] [place] [address] 09/24/2024 11:30 AM EDT Office Visit Gastroenterology, [facility] [address] [facility] [place] [address] Ester Wilson CRNP [address] [place] [address] Scheduled Procedures Name Priority Associated Diagnoses Date/Ti [...] D LEVEL ONCE IN A LIFETIME-USE SMARTSET# 43271 Completed 02/12/2018, 04/25/2015, 09/24/2014, Additional history exists [...] this encounter Medical Devices Implanted Type Area Chair Car Attendant Device Identifier Shelf Expiration Date Model / Serial / Lot Coil Target 3d 1bbc3dp - [id number] Implanted:Qty : 1 on 04/15/2024 by Yann Jackson MD at OR [facility] [place] N/A: Head ANNAMARIA : NEUROVASCULAR [id number] 12/16/2024 [id number] 60 / / [id number] 6cm, Coil Swiftpac Implanted:Qty : 1 on 04/15/2024 by Yann Jackson MD at OR [facility] N/A: Head [employer] 12/16/2028 [id number] / / [id number] 45cm, Coil Swiftpac Implanted:Qty : 1 on 04/15/2024 by Yann Jackson MD at OR [facility] [place] N/A: Head [employer] 12/16/2028 [id number] / / [id number] 60cm, Coil Swiftpac Implanted:Qty : 1 on 04/15/2024 by Yann Jackson MD at OR [facility] [place] N/A: Head [employer] 11/02/2028 [id number] / / [id number] Coil Target 3d 0gxd1uh - [id number] Implanted:Qty : 1 on 04/15/2024 by Yann Jackson MD at OR [facility] [place] N/A: Head ANNAMARIA : NEUROVASCULAR [id number] 12/24/2024 [id number] 60 / / [id number] Coil Target 360 Soft 8kit69ts - [id number] Implanted:Qty : 1 on 04/15/2024 by Yann Jackson MD at OR [facility] [place] N/A: Head ANNAMARIA : NEUROVASCULAR [id number] 06/23/2025 [id number] / / [id number] Coil Target 360 Ultra 2pdh67td - [id number] Implanted:Qty : 1 on 04/15/2024 by Yann Jackson MD at OR [facility] N/A: Head ANNAMARIA : NEUROVASCULAR [id number] 05/04/2026 [id number] / / [id number] Coil Target 360 Ultra 9ybp6ez - [id number] Implanted:Qty : 1 on 04/15/2024 by Yann Jackson MD at OR [facility] [place] N/A: Head ANNAMARIA : NEUROVASCULAR [id number] 02/03/2025 [id number] 80 / / [id number] 10cm, Coil Swiftpac Implanted:Qty : 2 on 04/15/2024 by Yann Jackson MD at OR [facility] [place] N/A: Head [employer] 12/24/2028 [id number] / / [id number] 30cm, Coil Swiftpac Implanted:Qty : 1 on 04/15/2024 by Yann Jackson MD at OR [facility] [place] N/A: Head [employer] 12/24/2028 [id number] / / [id number] 60cm, Coil Swiftpac Implanted:Qty : 1 on 04/15/2024 by Yann Jackson MD at OR [facility] [place] N/A: Head [employer] 11/02/2028 [id number] / / [id number] 6cm, Coil Swiftpac Implanted:Qty : 1 on 04/15/2024 by Yann Jackson MD at OR [facility] [place] N/A: Head [employer] 12/16/2028 [id number] / / [id number] Stent Vasc Hep 8mmx7.5p143fo - [id number] Implanted:Qty : 1 on 04/16/2024 by Samson Dennis MD at OR [facility] Left: Iliac [employer] [id number] 12/29/2026 [id number] / [id number] / [id number] documented as of this encounter Visit Diagnoses [...] mg, IV Piggyback, ONCE, 1 dose, On Sat07/29/24 at 1315, Administer over 90 MinutesIndications:Iron deficiency anemia due to chronic blood loss,Acute blood loss anemia Start Infusion 07/29/2024 12:21 PM EST 300 mg 180 mL/hr NSS infusion 500 mL, Intravenous, at 50 mL/hr, CONTINUOUS, Starting on Sat07/29/24 at 1245, Until Sat07/29/24 at 1841Indications:Iron deficiency anemia due to chronic blood loss,Acute blood loss anemia Start Infusion 07/29/2024 12:20 PM EST 500 mL 50 mL/hr documented [...] due to patient's condition Care Teams Research Director Relationship Specialty Start Date End Date Bharati Wang MD [address] [place] [address] [place] [phone] PCP - General Family Medicine 10/02/21 documented as of this encounter
--- OUTSIDE RECORDS SUMMARY | 2024-07-31 12:07 | External Medical Summary | Summary of Care ---
Author Name Unknown Organization [facility] Address [address] [place] [address] Phone [phone] Care Team Providers Care Meteorological Equipment Repairer Name Role Phone Bharati Wang MD Primary Care Provide r Reason for Visit * Reason Comments Outpatient Testing Encounter Details Date Type Department Care Team (Late st Contact Info) Description 07/24/2024 2:00 PM EST Laboratory [facility], [facility] [address] [facility] [address] [facility] [place] [address] Acute blood loss anemia Allergies Active Allergy [...] Nasal Suspension (Flonase)Indica tions:Nasal congestion Administer 1 [place] into nostril in the morning. 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 Not on file Not on file documented as of this encounter Plan of Treatment Upcoming Encounters Date Type Department Care Team (Late st Contact Info) Description 07/29/2024 12:00 PM EST Hem/Onc Treatment Hematology/Oncology Treatment, [place] [address] [place] [phone] Claudia, Chair 1 Hem Onc Scenery [address] [place] [address] 08/25/2024 10:00 AM EDT Office Visit Family [address] [place] [phone] Bharati Wang MD [address] [place] [address] [place] [address] 09/10/2024 11:30 AM EDT Office Visit Neurosurgery, [place] [address] [place] [address] Yann Jackson MD [address] [place] [address] 09/18/2024 12:00 PM EDT Appointment Vascular Lab [place] [address] [place] [address] 09/18/2024 12:30 PM EDT Appointment Vascular Lab [place] [address] [place] [address] 09/18/2024 1:20 PM EDT Office Visit Vascular Surg [facility] [address] [place] [address] Samson Dennis MD [address] [place] [address] 09/24/2024 11:30 AM EDT Office Visit Gastroenterology, [facility] [address] [facility] [place] [address] Ester Wilson CRNP [address] [place] [address] Scheduled Procedures Name Priority Associated Diagnoses Date/Ti me ESOPHAGOGASTRODUODENOSCOPY ( EGD), FLEXIBLE, TRANSORAL, DIAGNOSTIC Recall Contreras esophagus Health Maintenance Due Date Last Done Comments Alpha-1 Antitrypsin 1953 Adult Wellness Visit 2002 DXA Scan 04/06/2018 04/06/2016, 09/2012, 02/08/2011, Additional history exists DISCUSS TOBACCO CESSATION (REFER TO SMARTSET #3370) 08/01/2018 08/01/2017 (Discussed) DTap/Tdap Vaccines (2 - Td or Tdap) 06/09/2023 06/09/2013, 01/08/2008 COVID-19 Vaccine (5 - 2023- season) 2024 02/27/2022, 03/28/2021, 07/24/2020, [...] D LEVEL ONCE IN A LIFETIME-USE SMARTSET# 93745 Completed 02/12/2018, 04/25/2015, 09/24/2014, Additional history exists [...] this encounter Medical Devices Implanted Type Area [employer] Mechanic Device Identifier Shelf Expiration Date Model / Serial / Lot Coil Target 3d [id number] - [id number] Implanted:Qty : 1 on 04/15/2024 by Yann Jackson MD at OR [facility] [place] N/A: Head ANNAMARIA : NEUROVASCULAR [id number] 12/16/2024 [id number] / / [id number] 6cm, Coil Swiftpac Implanted:Qty : 1 on 04/15/2024 by Yann Jackson MD at OR [facility] N/A: Head [employer] 12/16/2028 [id number] / / [id number] 45cm, Coil Swiftpac Implanted:Qty : 1 on 04/15/2024 by Yann Jackson MD at OR [facility] N/A: Head [employer] 12/16/2028 [id number] / / [id number] 60cm, Coil Swiftpac Implanted:Qty : 1 on 04/15/2024 by Yann Jackson MD at OR [facility] [place] N/A: Head [employer] 11/02/2028 [id number] / / [id number] Coil Target 3d 5dnb3hw - [id number] Implanted:Qty : 1 on 04/15/2024 by Yann Jackson MD at OR [facility] [place] N/A: Head ANNAMARIA : NEUROVASCULAR [id number] 12/24/2024 [id number] 60 / / [id number] Coil Target 360 Soft 4jce92ol - [id number] Implanted:Qty : 1 on 04/15/2024 by Yann Jackson MD at OR [facility] [place] N/A: Head ANNAMARIA : NEUROVASCULAR [id number] 06/23/2025 [id number] 00 / / [id number] Coil Target 360 Ultra 3rmk86ih - [id number] Implanted:Qty : 1 on 04/15/2024 by Yann Jackson MD at OR [facility] N/A: Head ANNAMARIA : NEUROVASCULAR [id number] 05/04/2026 [id number] 00 / / [id number] Coil Target 360 Ultra 2mjl5va - [id number] Implanted:Qty : 1 on 04/15/2024 by Yann Jackson MD at OR [facility] [place] N/A: Head ANNAMARIA : NEUROVASCULAR [id number] 02/03/2025 [id number] 80 / / [id number] 10cm, Coil Swiftpac Implanted:Qty : 2 on 04/15/2024 by Yann Jackson MD at OR [facility] N/A: Head [employer] 12/24/2028 [id number] / / [id number] 30cm, Coil Swiftpac Implanted:Qty : 1 on 04/15/2024 by Yann Jackson MD at OR [facility] N/A: Head [employer] 12/24/2028 [id number] / / [id number] 60cm, Coil Swiftpac Implanted:Qty : 1 on 04/15/2024 by Yann Jackson MD at OR [facility] [place] N/A: Head [employer] 11/02/2028 [id number] / / [id number] 6cm, Coil Swiftpac Implanted:Qty : 1 on 04/15/2024 by Yann Jackson MD at OR [facility] N/A: Head [employer] 12/16/2028 [id number] / / [id number] Stent Vasc Hep 8mmx7.6o001lf - [id number] Implanted:Qty : 1 on 04/16/2024 by Samson Dennis MD at OR [facility] Left: Iliac [employer] [id number] 12/29/2026 [id number] / [id number] / [id number] documented as of this encounter Procedures Procedure Name Priority Date/Time Associated Diagnosis Comments DIFFERENTIAL, AUTOMATED Routine 07/24/2024 1:53 PM EST Acute blood loss anemia CBC Routine 07/24/2024 1:53 PM EST Acute blood loss anemia CBC Routine 07/24/2024 1:53 PM EST Acute blood loss anemia documented in this encounter Results * (ABNORMAL) DIFFERENTIAL, AUTOMATED (07/24/2024 1:53 PM EST) WBC 5.75 4.00 - 10.80 K/uL 07/24/2024 2:01 PM EST [facility] Neutrophils % 59.6 40.0 - 75.0 % 07/24/2024 2:01 PM EST [facility] Lymphocytes % 25.0 18.0 - 42.0 % 07/24/2024 2:01 PM EST [facility] Monocytes % 12.3(H) 1.0 - 11.0 % 07/24/2024 2:01 PM EST [facility] Eosinophils % 2.6 0.0 - 6.0 % 07/24/2024 2:01 PM EST [facility] Basophils % 0.5 0.0 - 2.0 % 07/24/2024 2:01 PM EST [facility] Absolute Neutrophils 3.42 1.80 - 7.70 K/uL 07/24/2024 2:01 PM EST [facility] Absolute Lymphocytes 1.44 1.00 - 4.80 K/ul 07/24/2024 2:01 PM EST [facility] Absolute Monocytes 0.71 0.00 - 1.10 K/uL 07/24/2024 2:01 PM EST [facility] Absolute Eosinophils 0.15 0.00 - 0.70 K/uL 07/24/2024 2:01 PM EST [facility] Absolute Basophils 0.03 0.00 - 0.20 K/uL 07/24/2024 2:01 PM EST [facility] Blood Venous blood specimen / Unknown Venipuncture / Unknown 07/24/2024 1:53 PM EST 07/24/2024 1:53 PM EST us Ester SAAB LAB BLOOD ORDERABLES Final Result [facility] [address] [place] [address] * (ABNORMAL) CBC (07/24/2024 1:53 PM EST) WBC 5.75 4.00 - 10.80 K/uL 07/24/2024 2:01 PM EST [facility] RBC 3.05 3.85 - 5.15 M/uL 07/24/2024 2:01 PM EST [facility] HGB 8.0(L) 12.0 - 15.3 g/dL 07/24/2024 2:01 PM EST [facility] HCT 26.5(L) 36.0 - 45.2 % 07/24/2024 2:01 PM EST [facility] MCV 86.9 81.5 - 97.5 fL 07/24/2024 2:01 PM EST [facility] MCH 26.2 27.0 - 34.0 pg 07/24/2024 2:01 PM EST [facility] MCHC 30.2 32.0 - 36.0 g/dL 07/24/2024 2:01 PM EST [facility] RDW 15.3 11.5 - 15.5 % 07/24/2024 2:01 PM EST [facility] PLT 208 140 - 400 K/uL 07/24/2024 2:01 PM EST [facility] MPV 9.4 6.6 - 11.1 fL 07/24/2024 2:01 PM EST [facility] Blood Venous blood specimen / Unknown Venipuncture / Unknown 07/24/2024 1:53 PM EST 07/24/2024 1:53 PM EST us Ester SAAB LAB BLOOD ORDERABLES Final Result [facility] [place] [address] documented in this encounter Visit Diagnoses Diagnosis [...] Discussed due to patient's condition Care Teams Meteorological Equipment Repairer Relationship Specialty Start Date End Date Bharati Wang MD [address] [place] [address] [place] [address] PCP - General Family Medicine 10/02/21 documented as of this encounter
--- OUTSIDE RECORDS SUMMARY | 2024-07-31 12:08 | External Medical Summary | Summary of Care ---
Author Name Unknown Organization [facility] Address [address] [place] [address] Phone [phone] Care Team Providers Care Motion Picture Narrator Name Role Phone Leticia Wang MD Primary Care Provide r Reason for Visit * Reason Onset Date Comments Medication Refill 07/23/2024 Encounter Details Date Type Department Care Team (Late st Contact Info) Description 07/23/2024 Refill Family Medicine [address] [phone] Tri Caro, RN [address] [place] [address] Nasal congestion Allergies Active Allergy Reactions Criticality Noted Date [...] 50 MCG/ACT Nasal Suspension (Flonase)Indic ations:Nasal congestion Administer 1 [place] into nostril in the morning. 16 g 5 Active Fluticasone Propionate 50 MCG/ACT Nasal Suspension [...] No 04/20/2024 Does the household have a [facility] source of income? 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 Authorizing Provider: LETICIA WANG * Telephone Encounter - Leticia Wang MD - 07/23/2024 8:52 PM EST Signed Prescriptions: Disp Refills Fluticasone Propionate 50 MCG/ACT Nasal Mota*16 g 0 Sig: Administer 1 [place] into nostril in the morning. Authorizing Provider: LETICIA WANG * Telephone Encounter - Sandra Recinos CMA - 07/23/2024 12:47 PM EST Pending Prescriptions: Disp Refills Fluticasone Propionate 50 MCG/ACT Nasal S*16 g 0 Sig: Administer 1 [place] into nostril in the morning. 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 Gastro-esophageal reflux disease without esophagitis Acute lower limb ischemia Acute blood loss anemia Retroperitoneal hematoma Hyperbilirubinemia Age-related osteoporosis without current pathological fracture PAD (peripheral artery disease) (HCC) CKD (chronic kidney disease), stage II S/P insertion of iliac artery stent History of thromboembolism Thromboembolus (HCC) Iron deficiency anemia Labs: Lab Results Component Value Date/Time CREATININE - [facility] 0.9 07/14/2024 01:53 PM CREATININE - [facility] 1.06 07/05/2024 12:00 AM CREATININE - [facility] 1.0 05/21/2019 01:17 PM CREATININE, RANDOM URINE - [facility] 32 03/02/2024 10:44 AM CREATININE, RANDOM URINE - [facility] 122 07/24/2017 08:28 AM Lab Results Component Value Date/Time POTASSIUM - [facility] 4.7 07/14/2024 01:53 PM POTASSIUM - [facility] 4.5 07/05/2024 12:00 AM POTASSIUM - [facility] 4.3 05/21/2019 01:17 PM POTASSIUM POCT - [facility] 4.0 04/15/2024 03:23 PM Lab Results Component Value Date/Time TSH - [facility] 2.41 07/15/2010 10:25 AM Lab Results Component Value Date/Time LDL CHOLESTEROL (CALCULATED) - [facility] 39 04/02/2024 10:20 AM LDL CHOLESTEROL (CALCULATED) - [facility] 48 03/02/2024 10:44 AM LDL CHOLESTEROL (CALCULATED) - [facility] 82 07/24/2017 08:28 AM LDL CHOLESTEROL (CALCULATED) - [facility] 96 04/25/2015 08:06 AM LDL CHOLESTEROL (DIRECT MEASURE) - [facility] 38 10/07/2020 02:47 PM LDL CHOLESTEROL (DIRECT MEASURE) - [facility] NOT APPLICABLE 07/24/2017 08:28 AM LDL CHOLESTEROL (DIRECT MEASURE) - [facility] 97 09/13/2010 11:30 AM Lab Results Component Value Date/Time ALT - [facility] 17 04/24/2024 07:47 AM ALT - [facility] 19 07/24/2017 08:28 AM Hemoglobin AIC Results: No results found for: "HEMOGLOBIN A1C" documented in this encounter Plan of Treatment Upcoming Encounters Date Type Department Care Team (Late st Contact Info) Description 07/24/2024 1:00 PM EST Office Visit Gastroenterology, [facility] [address] [place] [address] Ester Wilson CRNP [address] [place] [address] 07/29/2024 12:00 PM EST Hem/Onc Treatment Hematology/Oncology Treatment, [place] [address] [place] [phone] Claudia, Chair 1 Hem Onc [address] [address] [facility] [address] 08/25/2024 10:00 AM EDT Office Visit Family [address] [phone] Leticia Wang MD [address] [place] [address] [place] [address] 09/10/2024 11:30 AM EDT Office Visit Neurosurgery, [place] [address] [place] [address] Yann Jackson MD [address] [place] [phone] 09/18/2024 12:00 PM EDT Appointment Vascular Lab [facility] [address] [place] [address] 09/18/2024 12:30 PM EDT Appointment Vascular Lab [facility] [address] [place] [address] 09/18/2024 1:20 PM EDT Office Visit Vascular Surg [facility] [address] [place] [address] Samson Dennis MD [address] [place] [address] Scheduled Procedures Name Priority Associated Diagnoses Date/Ti me ESOPHAGOGASTRODUODENOSCOPY ( EGD), FLEXIBLE, TRANSORAL, DIAGNOSTIC Recall Contreras esophagus Health Maintenance Due Date Last Done Comments Alpha-1 Antitrypsin 1953 Adult Wellness Visit 2002 DXA Scan 04/06/2018 04/06/2016, 09/2012, 02/08/2011, Additional history exists DISCUSS TOBACCO CESSATION (REFER TO SMARTSET #9785) 08/01/2018 08/01/2017 (Discussed) DTap/Tdap Vaccines (2 - [...] D LEVEL ONCE IN A LIFETIME-USE SMARTSET# 72176 Completed 02/12/2018, 04/25/2015, 09/24/2014, Additional history exists [...] this encounter Medical Devices Implanted Type Area Mobile Ui/Ux Designer Device Identifier Shelf Expiration Date Model / Serial / Lot Coil Target 3d [id number] - [id number] Implanted:Qty : 1 on 04/15/2024 by Yann Jackson MD at OR [facility] [place] N/A: Head ANNAMARIA : NEUROVASCULAR [id number] 12/16/2024 [id number] 60 / / [id number] 6cm, Coil Swiftpac Implanted:Qty : 1 on 04/15/2024 by Yann Jackson MD at OR [facility] [place] N/A: Head [employer] 12/16/2028 [id number] / / [id number] 45cm, Coil Swiftpac Implanted:Qty : 1 on 04/15/2024 by Yann Jackson MD at OR [facility] [place] N/A: Head [employer] 12/16/2028 [id number] / / [id number] 60cm, Coil Swiftpac Implanted:Qty : 1 on 04/15/2024 by Yann Jackson MD at OR [facility] [place] N/A: Head [employer] 11/02/2028 [id number] / / [id number] Coil Target 3d 3dyl9dw - [id number] Implanted:Qty : 1 on 04/15/2024 by Yann Jackson MD at OR [facility] [place] N/A: Head ANNAMARIA : NEUROVASCULAR [id number] 12/24/2024 [id number] 60 / / [id number] Coil Target 360 Soft 3sef56js - [id number] Implanted:Qty : 1 on 04/15/2024 by Yann Jackson MD at OR [facility] [place] N/A: Head ANNAMARIA : NEUROVASCULAR [id number] 06/23/2025 [id number] 00 / / [id number] Coil Target 360 Ultra 2sjc61kt - [id number] Implanted:Qty : 1 on 04/15/2024 by Yann Jackson MD at OR [facility] [place] N/A: Head ANNAMARIA : NEUROVASCULAR [id number] 05/04/2026 [id number] 00 / / [id number] Coil Target 360 Ultra 5ftl9xk - [id number] Implanted:Qty : 1 on 04/15/2024 by Yann Jackson MD at OR [facility] [place] N/A: Head ANNAMARIA : NEUROVASCULAR [id number] 02/03/2025 [id number] 80 / / [id number] 10cm, Coil Swiftpac Implanted:Qty : 2 on 04/15/2024 by Yann Jackson MD at OR [facility] [place] N/A: Head [employer] 12/24/2028 [id number] / / [id number] 30cm, Coil Swiftpac Implanted:Qty : 1 on 04/15/2024 by Yann Jackson MD at OR [facility] [place] N/A: Head [employer] 12/24/2028 [id number] / / [id number] 60cm, Coil Swiftpac Implanted:Qty : 1 on 04/15/2024 by Yann Jackson MD at OR [facility] [place] N/A: Head [employer] 11/02/2028 [id number] / / [id number] 6cm, Coil Swiftpac Implanted:Qty : 1 on 04/15/2024 by Yann Jackson MD at OR [facility] [place] N/A: Head [employer] 12/16/2028 [id number] / / [id number] Stent Vasc Hep 8mmx7.4s008ci - [id number] Implanted:Qty : 1 on 04/16/2024 by Samson Dennis MD at OR [facility] [place] Left: Iliac [employer] [id number] 12/29/2026 [id number] / [id number] / [id number] documented as of this encounter Visit Diagnoses Diagnosis Nasal congestion Other diseases of nasal cavity and sinuses documented in this encounter Advance Directives * [...] Discussed due to patient's condition Care Teams Motion Picture Narrator Relationship Specialty Start Date End Date Leticia Wang MD [address] [place] [address] [place] [address] PCP - General Family Medicine 10/02/21 documented as of this encounter
--- OUTSIDE RECORDS SUMMARY | 2024-07-31 12:08 | External Medical Summary | Summary of Care ---
Author Name Unknown Organization [facility] Address [address] [place] [address] Phone [phone] Care Team Providers Care Visitor Services Information Assistant Name Role Phone Bharati Wang MD Primary Care Provide r Reason for Visit * Reason Comments Infusion Venofer 05/30 Encounter Details Date Type Department Care Team (Latest Contact Info) Description 07/23/2024 1:30 PM EST Hem/Onc Treatment Hematology/Oncology Treatment, [address] [phone] Claudia, Chair [address] [address] Iron deficiency anemia due to chronic blood [...] as of this encounter (statuses as of 07/23/2024) Medications VITAMIN D 2000 UNITS PO CAPS [...] as of this encounter (statuses as of 07/23/2024) Active Problems Problem Noted Date Diagnosed Date [...] as of this encounter (statuses as of 07/23/2024) Resolved Problems Problem Noted Date Diagnosed Date [...] as of this encounter (statuses as of 07/23/2024) Immunizations Name Administration Dates Next Due COVID-19 [...] 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 [facility] [address] 07/29/2024 12:00 PM EST Hem/Onc Treatment Hematology/Oncology Treatment, [address] [place] [phone] Claudia, Chair 1 Hem [address]c [address] [address] 08/25/2024 10:00 AM EDT Office Visit Family Medicine [address] [place] [phone] Bharati Wang MD [address] [place] [address] [place] [address] 09/10/2024 11:30 AM EDT Office Visit [address] [place] [address] Yann Jackson MD [address] [place] [address] 09/18/2024 12:00 PM EDT Appointment Vascular Lab [place] [address] [place] [address] 09/18/2024 12:30 PM EDT Appointment Vascular [place] [address] [place], [place] [address] 09/18/2024 1:20 PM EDT Office Visit Vascular [place] [address] [place] [address] Samson Dennis MD [address] [place], [place] [phone] Scheduled Procedures Name Priority Associated Diagnoses Date/Ti me ESOPHAGOGASTRODUODENOSCOPY ( EGD), FLEXIBLE, TRANSORAL, DIAGNOSTIC Recall Contreras esophagus Health Maintenance Due Date Last Done Comments Alpha-1 Antitrypsin 1953 Adult Wellness Visit 2002 DXA Scan 04/06/2018 04/06/2016, 09/2012, 02/08/2011, Additional history exists DISCUSS TOBACCO CESSATION (REFER TO SMARTSET #3861) 08/01/2018 08/01/2017 (Discussed) DTap/Tdap Vaccines (2 - [...] MEDICATION NEEDED FOR OSTEOPOROSIS (REFER TO SMARTSET #5596) Addressed 08/01/2017 (Discussed) Overridden with the intention of not completing the topic VITAMIN D LEVEL ONCE IN A LIFETIME-USE SMARTSET# 34783 Completed 02/12/2018, 04/25/2015, 09/24/2014, Additional history exists [...] this encounter Medical Devices Implanted Type Area Regulatory Administrator Device Identifier Shelf Expiration Date Model / Serial / Lot Coil Target 3d 4pqv2cl - [id number] Implanted:Qty : 1 on 04/15/2024 by Yann Jackson MD at OR [facility] [place] N/A: Head ANNAMARIA : NEUROVASCULAR [id number] 12/16/2024 [id number] / / [id number] 6cm, Coil Swiftpac Implanted:Qty : 1 on 04/15/2024 by Yann Jackson MD at OR [facility] N/A: Head [employer] 12/16/2028 [id number] / / [id number] 45cm, Coil Swiftpac Implanted:Qty : 1 on 04/15/2024 by Yann Jackson MD at OR [facility] [place] N/A: Head [employer] 12/16/2028 [id number] / / [id number] 60cm, Coil Swiftpac Implanted:Qty : 1 on 04/15/2024 by Yann Jackson MD at OR [facility] [place] N/A: Head [employer] 11/02/2028 [id number] / / [id number] Coil Target 3d 1ixp6aa - [id number] Implanted:Qty : 1 on 04/15/2024 by Yann Jackson MD at OR [facility] [place] N/A: Head ANNAMARIA : NEUROVASCULAR [id number] 12/24/2024 [id number] 60 / / [id number] Coil Target 360 Soft 4vjb30gl - [id number] Implanted:Qty : 1 on 04/15/2024 by Yann Jackson MD at OR [facility] [place] N/A: Head ANNAMARIA : NEUROVASCULAR [id number] 06/23/2025 [id number] 00 / / [id number] Coil Target 360 Ultra 8yhn93yw - [id number] Implanted:Qty : 1 on 04/15/2024 by Yann Jackson MD at OR [facility] [place] N/A: Head ANNAMARIA : NEUROVASCULAR [id number] 05/04/2026 [id number] / / [id number] Coil Target 360 Ultra 2phi4rb - [id number] Implanted:Qty : 1 on 04/15/2024 by Yann Jackson MD at OR [facility] [place] N/A: Head ANNAMARIA : NEUROVASCULAR [id number] 02/03/2025 [id number] 80 / / [id number] 10cm, Coil Swiftpac Implanted:Qty : 2 on 04/15/2024 by Yann Jackson MD at OR [facility] N/A: Head [employer] 12/24/2028 [id number] / / [id number] 30cm, Coil Swiftpac Implanted:Qty : 1 on 04/15/2024 by Yann Jackson MD at OR [facility] N/A: Head [employer] 12/24/2028 [id number] / / [id number] 60cm, Coil Swiftpac Implanted:Qty : 1 on 04/15/2024 by Yann Jackson MD at OR [facility] N/A: Head [employer] 11/02/2028 [id number] / / [id number] 6cm, Coil Swiftpac Implanted:Qty : 1 on 04/15/2024 by Yann Jackson MD at OR [facility] N/A: Head [employer] 12/16/2028 [id number] / / [id number] Stent Vasc Hep 8mmx7.3g016xo - [id number] Implanted:Qty : 1 on 04/16/2024 by Samson Dennis MD at OR [facility] Left: Iliac [employer] [id number] 12/29/2026 [id number] / [id number] / [id number] documented as of this encounter Visit Diagnoses [...] Discussed due to patient's condition Care Teams Visitor Services Information Assistant Relationship Specialty Start Date End Date Bharati Wang MD [address] [place] [address] [place] [address] PCP - General Family Medicine 10/02/21 documented as of this encounter
--- OUTSIDE RECORDS SUMMARY | 2024-07-31 12:08 | External Medical Summary | Summary of Care ---
Author Name Unknown Organization [facility] Address [address] [place] [address] Phone [phone] Care Team Providers Care Or Nurse Manager Name Role Phone Bharati Wang MD Primary Care Provide r Reason for Visit * Reason Onset Date Comments Test Results 07/15/2024 Hgb, rec IV iron Encounter Details Date Type Department Care Team (Late st Contact Info) Description 07/15/[address] [phone] Tamica Espinal MD [address] [place] [address] [place] [phone] Test Results (Hgb, rec IV iron) Allergies Active Allergy Reactions Criticality Noted Date [...] as of this encounter (statuses as of 07/15/2024) Medications VITAMIN D 2000 UNITS PO CAPS [...] morning and 40 mg before bedtime. Active Acyclovir 5 % External Cream (Zovirax) Apply topically to affected area 5 times a day for 4 days. apply to lip sores as soon as symptoms start. 2 g 5 5 07/18/19 25 Active documented as of this encounter (statuses as of 07/15/2024) Active Problems Problem Noted Date Diagnosed Date [...] as of this encounter (statuses as of 07/15/2024) Resolved Problems Problem Noted Date Diagnosed Date [...] fracture of humerus 08/07/2019 01/22/2024 Overview (08/10/2019): [facility] Bilateral sciatica 06/01/2019 4 Spasm of [...] as of this encounter (statuses as of 07/15/2024) Immunizations Name Administration Dates Next Due COVID-19 mRNA, LNP-s, No Pre serve, 2-Dose Series (Moderna) 07/24/2020,06/26/2020 COVID-19, mRNA, LNP-s, PF, B ooster, 100mcg/0.5mg (Moderna) 03/28/2021 Covid-19, Mrna, Lnp-s, Pf, B ivalent, 30 Mcg, IM, 12 yrs and above ([email or web address]) 02/27/2022 Pneumococcal Conjugate Vacc, 13 Valent (Prevnar) [...] No 04/20/2024 Does the household have a [facility] source [facility]? 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 Scheduling: please call patient to schedule 2 hour appt "venofer 05/30" (Dr Tamica Senior). Thanks! Patient will need venofer once a week x4 doses. * Telephone Encounter - Fior Black RN - 07/15/2024 9:59 AM EST Order received. [place] plan built and routed for signature. Can send to scheduling once signed. * Telephone Encounter - Tamica Espinal MD - 07/15/2024 9:55 AM EST Signed order after discussion. * Telephone Encounter - Tamica Espinal MD - 07/15/2024 8:26 AM EST Received her blood counts, still low- Hgb was 8.4. Recent GI bleed. Recommend trying to set up an IV iron infusion as she doesn't tolerate the PO due to side effects. Tri, would you be able to help me set that up as I haven't done it in this system yet? Or directme to who could? Thank you! documented in this encounter Plan of Treatment Upcoming Encounters Date Type Department Care Team (Late st Contact Info) Description 07/23/2024 1:30 PM EST Hem/Onc Treatment Hematology/Oncology Treatment, [place] [address] [place] [phone] Claudia, Chair 1 Hem Onc Scenery [address] [place] [address] 08/25/2024 10:00 AM EDT Office Visit Family Medicine [address] [phone] Bharati Wang MD [address] [place] [address] [place] [address] 09/10/2024 11:30 AM EDT Office Visit Neurosurgery, [place] [address] [place] [address] Yann Jackson MD [address] [place] [address] 09/18/2024 12:00 PM EDT Appointment Vascular Lab [place] [address] [place] [address] 09/18/2024 12:30 PM EDT Appointment Vascular Lab [facility] [address] [place] [address] 09/18/2024 1:20 PM EDT Office Visit Vascular Surg [facility] [address] [place] [address] Samson Dennis MD [address] [place] [address] Scheduled Procedures Name Priority Associated Diagnoses Date/Ti me ESOPHAGOGASTRODUODENOSCOPY ( EGD), FLEXIBLE, TRANSORAL, DIAGNOSTIC Recall Contreras esophagus Health Maintenance Due Date Last Done Comments Alpha-1 Antitrypsin 1953 Adult Wellness Visit 2002 DXA Scan 04/06/2018 04/06/2016, 110 09/2012, 02/08/2011, Additional history exists DISCUSS TOBACCO [...] D LEVEL ONCE IN A LIFETIME-USE SMARTSET# 95021 Completed 02/12/2018, 04/25/2015, 09/24/2014, Additional history exists [...] encounter Medical Devices Implanted Type Area Group Leader Device Identifier Shelf Expiration Date Model / Serial / Lot Coil Target 3d 7eib8yw - [id number] Implanted:Qty : 1 on 04/15/2024 by Yann Jackson MD at [place] [facility] [place]A: Head ANNAMARIA : NEUROVASCULAR [id number] 12/16/2024 [id number] 60 / / [id number] 6cm, Coil Swiftpac Implanted:Qty : 1 on 04/15/2024 by Yann Jackson MD at [place] [facility] [place] N/A: Head [employer] 12/16/2028 [id number] / / [id number] 45cm, Coil Swiftpac Implanted:Qty : 1 on 04/15/2024 by Yann Jackson MD at [place] [facility] [place] N/A: Head [employer] 12/16/2028 [id number] / / [id number] 60cm, Coil Swiftpac Implanted:Qty : 1 on 04/15/2024 by Yann Jackson MD at [place] [facility] [place] N/A: Head [employer] 11/02/2028 [id number] / / [id number] Coil Target 3d 8xim1bd - [id number] Implanted:Qty : 1 on 04/15/2024 by Yann Jackson MD at [place] [facility] [place] N/A: Head ANNAMARIA : NEUROVASCULAR [id number] 12/24/2024 [id number] 60 / / [id number] Coil Target 360 Soft 4onx53hl - [id number] Implanted:Qty : 1 on 04/15/2024 by Yann Jackson MD at [place] [facility] [place] N/A: Head ANNAMARIA : NEUROVASCULAR [id number] 06/23/2025 [id number] / / [id number] Coil Target 360 Ultra 6ols42rf - [id number] Implanted:Qty : 1 on 04/15/2024 by Yann Jackson MD at [place] [facility] [place] N/A: Head ANNAMARIA : NEUROVASCULAR [id number] 05/04/2026 [id number] 00 / / [id number] Coil Target 360 Ultra 8awc8cw - [id number] Implanted:Qty : 1 on 04/15/2024 by Yann Jackson MD at [place] [facility] [place] N/A: Head ANNAMARIA : NEUROVASCULAR [id number] 02/03/2025 [id number] 80 / / [id number] 10cm, Coil Swiftpac Implanted:Qty : 2 on 04/15/2024 by Yann Jackson MD at [place] [facility] [place] N/A: Head [employer] 12/24/2028 [id number] / / [id number] 30cm, Coil Swiftpac Implanted:Qty : 1 on 04/15/2024 by Yann Jackson MD at [place] [facility] [place] N/A: Head [employer] 12/24/2028 [id number] / / [id number] 60cm, Coil Swiftpac Implanted:Qty : 1 on 04/15/2024 by Yann Jackson MD at [place] [facility] N/A: Head [employer] 11/02/2028 [id number] / / [id number] 6cm, Coil Swiftpac Implanted:Qty : 1 on 04/15/2024 by Yann Jackson MD at [place] [facility] N/A: Head [employer] 12/16/2028 [id number] / / [id number] Stent Vasc Hep 8mmx7.4u266yy - [id number] Implanted:Qty : 1 on 04/16/2024 by Samson Dennis MD at [place] [facility] [place] Left: Iliac [employer] [id number] 12/29/2026 [id number] / [id number] / [id number] documented as of this encounter Visit Diagnoses Diagnosis Iron deficiency anemia- Primary Iron deficiency anemia, unspecified Acute blood loss anemia Acute posthemorrhagic anemia Iron deficiency anemia due to chronic blood loss Iron deficiency anemia secondary to blood loss (chronic) documented in this encounter Advance Directives * [...] Discussed due to patient's condition Care Teams Or Nurse Manager Relationship Specialty Start Date End Date Bharati Wang MD [address] [place] [address] [place] [address] PCP - General Family Medicine 10/02/21 documented as of this encounter
--- OUTSIDE RECORDS SUMMARY | 2024-07-31 12:08 | External Medical Summary | Summary of Care ---
Author Name Unknown Organization [facility] Address [address] [place] [address] Phone [phone] Care Team Providers Care Job Boss Name Role Phone Bharati Wang MD Primary Care Provide r Reason for Visit * Reason Onset Date Comments Appointment 07/16/2024 Encounter Details Date Type Department Care Team (Late st Contact Info) Description 07/16/2024 Telephone Family Medicine [address] [phone] Bharati Wang MD [address] [place] [address] [place] [address] Appointment Allergies Active Allergy [...] as of this encounter (statuses as of 07/16/2024) Medications VITAMIN D 2000 UNITS PO CAPS [...] as of this encounter (statuses as of 07/16/2024) Active Problems Problem Noted Date Diagnosed Date [...] as of this encounter (statuses as of 07/16/2024) Resolved Problems Problem Noted Date Diagnosed Date [...] as of this encounter (statuses as of 07/16/2024) Immunizations Name Administration Dates Next Due COVID-19 [...] Job Start Date 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 Scheduling to contact pt to reschedule appt prior to proceeding with [facility]. * Telephone Encounter - Tri Caro RN - 07/16/2024 11:09 AM EST Randa. Patient was recently admitted to [facility]. Patient is to be getting set up with a video capsule study. They Called [facility] and they told them they were referring them to [facility] that patient can have this done at [facility]. They have not heard anything yet. I do see a referral placed on 07/[address] Wang. I let the patient and know I would reach out. Thank you! documented in this encounter Plan of Treatment Upcoming Encounters Date Type Department Care Team (Late st Contact Info) Description 07/23/2024 1:30 PM EST Hem/Onc Treatment Hematology[facility]cology [facility], [place] [address] [facility] [phone] Claudia, Chair 1 Hem Onc [facility] [address] 07/24/2024 1:00 PM EST Office Visit Gastroenterology, [facility] [address] [place] [address] Ester Wilson CRNP [address] [place] [address] 08/25/2024 10:00 AM EDT Office Visit Family Medicine [address] [place] [phone] Bharati Wang MD [address] [place] [address] [place] [address] 09/10/2024 11:30 AM EDT Office Visit Neurosurgery, [place] [address] [place] [address] Yann Jackson MD [address] [place] [address] 09/18/2024 12:00 PM EDT Appointment Vascular Lab [place] [address] [place] [address] 09/18/2024 12:30 PM EDT Appointment Vascular [facility] [place] [address] [place] [address] 09/18/2024 1:20 PM EDT Office Visit Vascular Surg [place] [address] [place] [address] Samson Dennis MD [address] [place] [address] Scheduled Procedures Name Priority Associated Diagnoses Date/Ti me ESOPHAGOGASTRODUODENOSCOPY ( EGD), FLEXIBLE, TRANSORAL, DIAGNOSTIC Recall Contreras esophagus Health Maintenance Due Date Last Done Comments Alpha-1 Antitrypsin 1953 Adult Wellness Visit 2002 DXA Scan 04/06/2018 04/06/2016, 09/2012, 02/08/2011, Additional history exists DISCUSS TOBACCO CESSATION (REFER TO SMARTSET #4424) 08/01/2018 08/01/2017 (Discussed) DTap/Tdap Vaccines (2 - [...] D LEVEL ONCE IN A LIFETIME-USE SMARTSET# 63800 Completed 02/12/2018, 04/25/2015, 09/24/2014, Additional history exists [...] this encounter Medical Devices Implanted Type Area Try Out Person Device Identifier Shelf Expiration Date Model / Serial / Lot Coil Target 3d [id number] - [id number] Implanted:Qty : 1 on 04/15/2024 by Yann Jackson MD at OR [facility] N/A: Head ANNAMARIA : NEUROVASCULAR [id number] 12/16/2024 [id number] 60 / / [id number] 6cm, Coil Swiftpac Implanted:Qty : 1 on 04/15/2024 by Yann Jackson MD at OR [facility] N/A: Head [employer] 12/16/2028 [id number] / / [id number] 45cm, Coil Swiftpac Implanted:Qty : 1 on 04/15/2024 by Yann Jackson MD at OR [facility] N/A: Head [employer] 12/16/2028 [id number] / / [id number] 60cm, Coil Swiftpac Implanted:Qty : 1 on 04/15/2024 by Yann Jackson MD at OR [facility] N/A: Head [employer] 11/02/2028 [id number] / / [id number] Coil Target 3d 5uxg7go - [id number] Implanted:Qty : 1 on 04/15/2024 by Yann Jackson MD at OR [facility] N/A: Head ANNAMARIA : NEUROVASCULAR [id number] 12/24/2024 [id number] 60 / / [id number] Coil Target 360 Soft 6xef66ac - [id number] Implanted:Qty : 1 on 04/15/2024 by Yann Jackson MD at OR [facility] N/A: Head ANNAMARIA : NEUROVASCULAR [id number] 06/23/2025 [id number] 00 / / [id number] Coil Target 360 Ultra 8plq90aa - [id number] Implanted:Qty : 1 on 04/15/2024 by Yann Jackson MD at OR [facility] N/A: Head ANNAMARIA : NEUROVASCULAR [id number] 05/04/2026 [id number] 00 / / [id number] Coil Target 360 Ultra [id number] - [id number] Implanted:Qty : 1 on 04/15/2024 by Yann Jackson MD at OR [facility] N/A: Head ANNAMARIA : NEUROVASCULAR [id number] 02/03/2025 [id number] 80 / / [id number] 10cm, Coil Swiftpac Implanted:Qty : 2 on 04/15/2024 by Yann Jackson MD at OR [facility] N/A: Head [employer] 12/24/2028 [id number] / / [id number] 30cm, Coil Swiftpac Implanted:Qty : 1 on 04/15/2024 by Yann Jackson MD at OR [facility] N/A: Head [employer] 12/24/2028 [id number] / / [id number] 60cm, Coil Swiftpac Implanted:Qty : 1 on 04/15/2024 by Yann Jackson MD at OR [facility] N/A: Head [employer] 11/02/2028 [id number] / / [id number] 6cm, Coil Swiftpac Implanted:Qty : 1 on 04/15/2024 by Yann Jackson MD at OR [facility] N/A: Head [employer] 12/16/2028 [id number] / / [id number] Stent Vasc Hep 8mmx7.5r099ky - [id number] Implanted:Qty : 1 on 04/16/2024 by Samson Dennis MD at OR [facility] Left: Iliac [employer] [id number] 12/29/2026 [id number] 2A / [id number] / [id number] documented as of this encounter Advance Directives [...] Discussed due to patient's condition Care Teams Job Boss Relationship Specialty Start Date End Date Bharati Wang MD [address] [place] [address] [place] [phone] PCP - General Family Medicine 5/9/22 documented as of this encounter
--- OUTSIDE RECORDS SUMMARY | 2024-07-31 12:08 | External Medical Summary | Summary of Care ---
Author Name Unknown Organization [facility] Address [address] [place] [address] Phone [phone] Care Team Providers Care Multimedia Artist Name Role Phone Bharati Wang MD Primary Care Provide r Encounter Details Date Type Department Care Team (Late st Contact Info) Description 04/21/2024 Result Scan Unspecified Department <No scans attached> Allergies Active Allergy Reactions Criticality Noted Date [...] as of this encounter (statuses as of 07/21/2024) Medications VITAMIN D 2000 UNITS PO CAPS Take 1 Capsule by mouth daily with dinner. 08/24/2013 Active [...] in the evening 16 g 02/03/2024 Active amLODIPine Besylate 5 MG Oral Tablet (Norvasc)Indica tions:HTN, goal below 150/90 TAKE ONE TABLET BY MOUTH EVERY MORNING 90 Tablet 3 04/13/2024 Active Rosuvastatin Calcium 20 MG Oral Tablet (Crestor)Indica tions:Carotid stenosis, non-symptomatic , bilateral TAKE ONE TABLET BY MOUTH EVERY DAY 90 Tablet 3 04/13/2024 Active documented as of this encounter (statuses as of 07/21/2024) Active Problems Problem Noted Date Diagnosed Date [...] as of this encounter (statuses as of 07/21/2024) Resolved Problems Problem Noted Date Diagnosed Date [...] fracture of humerus 08/07/2019 01/22/2024 Overview (08/10/2019): [facility] Bilateral sciatica 06/01/2019 Spasm of muscle [...] as of this encounter (statuses as of 07/21/2024) Immunizations Name Administration Dates Next Due COVID-19 mRNA, LNP-s, No Pre serve, 2-Dose Series (Moderna) 07/24/2020,06/26/2020 COVID-19, mRNA, LNP-s, PF, B ooster, 100mcg/0.5mg (Moderna) 03/28/2021 Covid-19, Mrna, Lnp-s, Pf, B ivalent, 30 Mcg, IM, 12 yrs and above (AlertaPhone) 02/27/2022 Pneumococcal Conjugate Vacc, 13 Valent (Prevnar) [...] 1 57.8 Started: 1965 Smokeless Tobacco: Never Alcohol Use [...] Start Date 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 Not on file Not on file Not on file documented as of this encounter Plan of Treatment Upcoming Encounters Date Type Department Care Team (Late st Contact Info) Description 07/23/2024 1:30 PM EST Hem/Onc Treatment Hematology/Oncology Treatment, [address] [phone] Claudia, Chair 1 Hem On[address] [address] 07/24/2024 1:00 PM EST Office Visit Gastroenterology, [facility] [address] [place] [address] Ester Wilson CRNP [address] [place] [address] 08/25/2024 10:00 AM EDT Office Visit Family Medicine [address] [phone] Bharati Wang MD [address] [place] [address] [place] [address] 09/10/2024 11:30 AM EDT Office Visit Neurosurgery, [place] [address] [place] [address] Yann Jackson MD [address] [place] [phone] 09/18/2024 12:00 PM EDT Appointment Vascular Lab [address] [address] 09/18/2024 12:30 PM EDT Appointment Vascular Lab [place] [address] [place] [address] 09/18/2024 1:20 PM EDT Office Visit Vascular Surg [place] [address] [place] [address] Samson Dennis MD [facility] [address] [place], [place] [phone] Scheduled Procedures Name Priority Associated Diagnoses Date/Ti me ESOPHAGOGASTRODUODENOSCOPY ( EGD), FLEXIBLE, TRANSORAL, DIAGNOSTIC Recall Contreras esophagus Health Maintenance Due Date Last Done Comments Alpha-1 Antitrypsin 1954 Adult Wellness Visit 2002 DXA Scan 04/06/2018 04/06/2016, 09/2012, 02/08/2011, Additional history exists DISCUSS TOBACCO CESSATION (REFER TO SMARTSET #6407) 08/01/2018 08/01/2017 (Discussed) DTap/Tdap Vaccines (2 - [...] D LEVEL ONCE IN A LIFETIME-USE SMARTSET# 43916 Completed 02/12/2018, 04/25/2015, 09/24/2014, Additional history exists [...] this encounter Medical Devices Implanted Type Area Machine Molder Squeeze Device Identifier Shelf Expiration Date Model / Serial / Lot Coil Target 3d 2igi2lq - [id number] Implanted:Qty : 1 on 04/15/2024 by Yann Jackson MD at OR [facility] N/A: Head ANNAMARIA : NEUROVASCULAR [id number] 12/16/2024 [id number] 60 / / [id number] 6cm, Coil Swiftpac Implanted:Qty : 1 on 04/15/2024 by Yann Jackson MD at OR [facility] N/A: Head [employer] 12/16/2028 [id number] / / [id number] 45cm, Coil Swiftpac Implanted:Qty : 1 on 04/15/2024 by Yann Jackson MD at OR [facility] N/A: Head [employer] 12/16/2028 [id number] / / [id number] 60cm, Coil Swiftpac Implanted:Qty : 1 on 04/15/2024 by Yann Jackson MD at OR [facility] N/A: Head [employer] 11/02/2028 [id number] / / [id number] Coil Target 3d 6irg2nx - [id number] Implanted:Qty : 1 on 04/15/2024 by Yann Jackson MD at OR [facility] N/A: Head ANNAMARIA : NEUROVASCULAR [id number] 12/24/2024 [id number] 60 / / [id number] Coil Target 360 Soft 9ekw32ch - [id number] Implanted:Qty : 1 on 04/15/2024 by Yann Jackson MD at OR [facility] N/A: Head ANNAMARIA : NEUROVASCULAR [id number] 06/23/2025 [id number] 00 / / [id number] Coil Target 360 Ultra 9wdq58qp - [id number] Implanted:Qty : 1 on 04/15/2024 by Yann Jackson MD at OR [facility] N/A: Head ANNAMARIA : NEUROVASCULAR [id number] 05/04/2026 [id number] 00 / / [id number] Coil Target 360 Ultra 7khh9cf - [id number] Implanted:Qty : 1 on 04/15/2024 by Yann Jackson MD at OR [facility] N/A: Head ANNAMARIA : NEUROVASCULAR [id number] 02/03/2025 [id number] 80 / / [id number] 10cm, Coil Swiftpac Implanted:Qty : 2 on 04/15/2024 by Yann Jackson MD at OR [facility] N/A: Head [employer] 12/24/2028 [id number] / / [id number] 30cm, Coil Swiftpac Implanted:Qty : 1 on 04/15/2024 by Yann Jackson MD at OR [facility] N/A: Head [employer] 12/24/2028 [id number] / / [id number] 60cm, Coil Swiftpac Implanted:Qty : 1 on 04/15/2024 by Yann Jackson MD at OR [facility] N/A: Head [employer] 11/02/2028 [id number] / / [id number] 6cm, Coil Swiftpac Implanted:Qty : 1 on 04/15/2024 by Yann Jackson MD at OR [facility] N/A: Head [employer] 12/16/2028 [id number] / / [id number] Stent Vasc Hep 8mmx7.6u680ez - [id number] Implanted:Qty : 1 on 04/16/2024 by Samson Dennis MD at OR [facility] Left: Iliac [employer] [id number] 12/29/2026 [id number] / [id number] / [id number] documented as of this encounter Procedures Procedure Name Priority Date/Time Associated Diagnosis Comments OUTSIDE LAB RESULTS 04/21/2024 documented in this encounter Results * OUTSIDE LAB RESULTS (04/21/2024) 04/21/2024 us No Physician Data Unknown LABORATORY Final Result documented in this encounter Additional [...] Discussed due to patient's condition Care Teams Multimedia Artist Relationship Specialty Start Date End Date Bharati Wang MD [address] [place] [address] [place] [address] PCP - General Family Medicine 10/02/21 documented as of this encounter
--- OUTSIDE RECORDS SUMMARY | 2024-07-31 12:08 | External Medical Summary | Summary of Care ---
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 Not on file Not [...] EST Randa. Patient was recently admitted to [facility]. Patient is to be getting set up with a video capsule study. They Called [facility] and they told them they were referring them to [facility] that patient can have this done at [facility]. They have not heard anything yet. I do see a referral placed on 07/[address] Wang. I let the patient and know I would reach out. Thank you! documented in this encounter Plan of Treatment Upcoming Encounters Date Type Department Care Team (Late st Contact Info) Description 07/23/2024 1:30 PM EST Hem/Onc Treatment Hematology/Oncology Treatment, [place] [address] [facility] [phone] Claudia, Chair 1 Hem Onc [facility] [address] [facility] [address] 07/24/2024 1:00 PM EST Office Visit Gastroenterology, [facility] [address] [place] [address] Ester Wilson CRNP [address] [place] [address] 08/25/2024 10:00 AM EDT Office Visit Family Medicine [address] [place] [phone] Bharati Wang MD [address] [place] [address] [place] [address] 09/10/2024 11:30 AM EDT Office Visit Neurosurgery, [place] [address] [place] [address] Yann Jackson MD [address] [place] [address] 09/18/2024 12:00 PM EDT Appointment Vascular Lab [place] [address] [place] [address] 09/18/2024 12:30 PM EDT Appointment Vascular Lab [place] [address] [place] [address] 09/18/2024 1:20 PM EDT Office Visit Vascular Surg [place] [address] [place] [address] Samson Dennis MD [address] [place] [address] Scheduled Procedures Name Priority Associated Diagnoses Date/Ti me ESOPHAGOGASTRODUODENOSCOPY ( EGD), FLEXIBLE, TRANSORAL, DIAGNOSTIC Recall Contreras esophagus Health Maintenance Due Date Last Done Comments Alpha-1 Antitrypsin 1953 Adult Wellness Visit 2002 DXA Scan 04/06/2018 04/06/2016, 09/2012, 02/08/2011, Additional history exists DISCUSS TOBACCO CESSATION (REFER TO SMARTSET #9208) 08/01/2018 08/01/2017 (Discussed) DTap/Tdap Vaccines (2 - [...] D LEVEL ONCE IN A LIFETIME-USE SMARTSET# 91432 Completed 02/12/2018, 04/25/2015, 09/24/2014, Additional history exists [...] this encounter Medical Devices Implanted Type Area Package Designer Device Identifier Shelf Expiration Date Model / Serial / Lot Coil Target 3d [id number] - [id number] Implanted:Qty : 1 on 04/15/2024 by Yann Jackson MD [place] [facility] [place]: Head ANNAMARIA : NEUROVASCULAR [id number] 12/16/2024 [id number] 60 / / [id number] 6cm, Coil Swiftpac Implanted:Qty : 1 on 04/15/2024 by Yann Jackson MD at [place] [facility] N/A: Head [employer] 12/16/2028 [id number] / / [id number] 45cm, Coil Swiftpac Implanted:Qty : 1 on 04/15/2024 by Yann Jackson MD at [place] [facility] N/A: Head [employer] 12/16/2028 [id number] / / [id number] 60cm, Coil Swiftpac Implanted:Qty : 1 on 04/15/2024 by Yann Jackson MD at [place] [facility] N/A: Head [employer] 11/02/2028 [id number] / / [id number] Coil Target 3d 1asn9lv - [id number] Implanted:Qty : 1 on 04/15/2024 by Yann Jackson MD at [place] [facility] N/A: Head ANNAMARIA : NEUROVASCULAR [id number] 12/24/2024 [id number] 60 / / [id number] Coil Target 360 Soft 2rgs99em - [id number] Implanted:Qty : 1 on 04/15/2024 by Yann Jackson MD at [place] [facility] N/A: Head ANNAMARIA : NEUROVASCULAR [id number] 06/23/2025 [id number] 00 / / [id number] Coil Target 360 Ultra 3rfw95sl - [id number] Implanted:Qty : 1 on 04/15/2024 by Yann Jackson MD at [place] [facility] N/A: Head ANNAMARIA : NEUROVASCULAR [id number] 05/04/2026 [id number] / / [id number] Coil Target 360 Ultra 4yok5bw - [id number] Implanted:Qty : 1 on 04/15/2024 by Yann Jackson MD at [place] [facility] N/A: Head ANNAMARIA : NEUROVASCULAR [id number] 02/03/2025 [id number] 80 / / [id number] 10cm, Coil Swiftpac Implanted:Qty : 2 on 04/15/2024 by Yann aJckson MD at [place] [facility] N/A: Head [employer] 12/24/2028 [id number] / / [id number] 30cm, Coil Swiftpac Implanted:Qty : 1 on 04/15/2024 by Yann Jackson MD at [place] [facility] N/A: Head [employer] 12/24/2028 [id number] / / [id number] 60cm, Coil Swiftpac Implanted:Qty : 1 on 04/15/2024 by Yann Jackson MD at [place] [facility] N/A: Head [employer] 11/02/2028 [id number] / / [id number] 6cm, Coil Swiftpac Implanted:Qty : 1 on 04/15/2024 by Yann Jackson MD at [place] [facility] N/A: Head [employer] 12/16/2028 [id number] / / [id number] Stent Vasc Hep 8mmx7.8s300fi - [id number] Implanted:Qty : 1 on 04/16/2024 by Samson Dennis MD at [place] [facility] Left: Iliac [employer] [id number] 12/29/2026 [id number] / [id number] / [id number] documented as of this encounter Advance Directives [...] Discussed due to patient's condition Care Teams Billing Services Manager Relationship Specialty Start Date End Date Bharati Wang MD [address] [place] [address] [place] [phone] PCP - General Family Medicine 5/9/22 documented as of this encounter
--- OUTSIDE RECORDS SUMMARY | 2024-07-31 12:08 | External Medical Summary | Summary of Care ---
Author Name Unknown Organization [facility] Address [address] [place] [address] Phone [phone] Care Team Providers Care Pediatric Nurse Practitioner Name Role Phone Bharati Wang MD Primary Care Provide r Reason for Visit * Reason Onset Date Comments Test Results 07/15/2024 Hgb, rec IV iron Encounter Details Date Type Department Care Team (Late st Contact Info) Description 07/15/[address] [phone] Tamica Espinal MD [address] [place] [address] [place] [phone] Test Results (Hgb, rec [...] fracture of humerus 08/07/2019 01/22/2024 Overview (08/10/2019): [facility] Bilateral sciatica 06/01/2019 4 Spasm of [...] 30 Mcg, IM, 12 yrs and above ([email or web address]) 02/27/2022 Pneumococcal Conjugate Vacc, 13 Valent (Prevnar) [...] No 04/20/2024 Does the household have a [facility] source of income? 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 Scheduling: please call patient to schedule 2 hour appt "venofer 05/30" (Dr Tamica Senior). Thanks! Patient will need venofer once a week x4 doses. * Telephone Encounter - Fior Black RN - 07/15/2024 9:59 AM EST Order received. [place] plan built and routed for signature. Can [...] 1:30 PM EST Hem/Onc Treatment Hematology/Oncology Treatment, [place] [address] [place] [phone] Claudia, Chair 1 Hem Onc Scenery [address] [place] [address] 08/25/2024 10:00 AM EDT Office Visit Family Medicine [address] [phone] Bharati Wang MD [address] [place] [address] [place] [address] 09/10/2024 11:30 AM EDT Office Visit Neurosurgery, [place] [address] [place] [address] Yann Jackson MD [address] [place] [address] 09/18/2024 12:00 PM EDT Appointment Vascular Lab [place] [address] [place] [address] 09/18/2024 12:30 PM EDT Appointment Vascular Lab [facility] [address] [place] [address] 09/18/2024 1:20 PM EDT Office Visit Vascular Surg [facility] [address] [place] [address] Samson Dennis MD [address] [place] [address] Scheduled Procedures Name Priority Associated Diagnoses Date/Ti [...] D LEVEL ONCE IN A LIFETIME-USE SMARTSET# 94693 Completed 02/12/2018, 04/25/2015, 09/24/2014, Additional history exists [...] this encounter Medical Devices Implanted Type Area Subeditor Device Identifier Shelf Expiration Date Model / Serial / Lot Coil Target 3d [id number] - [id number] Implanted:Qty : 1 on 04/15/2024 by Yann Jackson MD at OR [facility] N/A: Head ANNAMARIA : NEUROVASCULAR [id number] 12/16/2024 [id number] 60 / / [id number] 6cm, Coil Swiftpac Implanted:Qty : 1 on 04/15/2024 by Yann Jackson MD at OR [facility] N/A: Head [employer] 12/16/2028 [id number] / / [id number] 45cm, Coil Swiftpac Implanted:Qty : 1 on 04/15/2024 by Yann Jackson MD at OR [facility] N/A: Head [employer] 12/16/2028 [id number] / / [id number] 60cm, Coil Swiftpac Implanted:Qty : 1 on 04/15/2024 by Yann Jackson MD at OR [facility] N/A: Head [employer] 11/02/2028 [id number] / / [id number] Coil Target 3d 2bvn1kr - [id number] Implanted:Qty : 1 on 04/15/2024 by Yann Jackson MD at OR [facility] N/A: Head ANNAMARIA : NEUROVASCULAR [id number] 12/24/2024 [id number] 60 / / [id number] Coil Target 360 Soft 6sqf90zt - [id number] Implanted:Qty : 1 on 04/15/2024 by Yann Jackson MD at OR [facility] N/A: Head ANNAMARIA : NEUROVASCULAR [id number] 06/23/2025 [id number] 00 / / [id number] Coil Target 360 Ultra 9ijr25xb - [id number] Implanted:Qty : 1 on 04/15/2024 by Yann Jackson MD at OR [facility] N/A: Head ANNAMARIA : NEUROVASCULAR [id number] 05/04/2026 [id number] 00 / / [id number] Coil Target 360 Ultra 8vny9yx - [id number] Implanted:Qty : 1 on 04/15/2024 by Yann Jackson MD at OR [facility] N/A: Head ANNAMARIA : NEUROVASCULAR [id number] 02/03/2025 [id number] 80 / / [id number] 10cm, Coil Swiftpac Implanted:Qty : 2 on 04/15/2024 by Yann Jackson MD at OR [facility] N/A: Head [employer] 12/24/2028 [id number] / / [id number] 30cm, Coil Swiftpac Implanted:Qty : 1 on 04/15/2024 by Yann Jackson MD at OR [facility] N/A: Head [employer] 12/24/2028 [id number] / / [id number] 60cm, Coil Swiftpac Implanted:Qty : 1 on 04/15/2024 by Yann Jackson MD at OR [facility] N/A: Head [employer] 11/02/2028 [id number] / / [id number] 6cm, Coil Swiftpac Implanted:Qty : 1 on 04/15/2024 by Yann Jackson MD at OR [facility] N/A: Head [employer] 12/16/2028 [id number] / / [id number] Stent Vasc Hep 8mmx7.4z670rn - [id number] Implanted:Qty : 1 on 04/16/2024 by Samson Dennis MD at OR [facility] Left: Iliac [employer] [id number] 12/29/2026 [id number] / [id number] / [id number] documented as of this encounter Visit Diagnoses [...] Discussed due to patient's condition Care Teams Pediatric Nurse Practitioner Relationship Specialty Start Date End Date Bharati Wang MD [address] [place] [address] [place] [address] PCP - General Family Medicine 10/02/21 documented as of this encounter
--- OUTSIDE RECORDS SUMMARY | 2024-07-31 12:09 | External Medical Summary | Summary of Care ---
Author Name Unknown Organization [facility] Address [address] [place] [address] Phone [phone] Care Team Providers Care Boxing Promoter Name Role Phone Bharati Wang MD Primary Care Provide r Reason for Visit * Reason Onset Date Comments Test Results 07/15/2024 Hgb, rec IV iron Encounter Details Date Type Department Care Team (Late st Contact Info) Description 07/15/[address] [phone] Tamica Espinal MD [address] [place] [address] [place] [phone] Test Results (Hgb, rec [...] fracture of humerus 08/07/2019 01/22/2024 Overview (08/10/2019): [facility] Bilateral sciatica 06/01/2019 4 Spasm of [...] 30 Mcg, IM, 12 yrs and above ([employer]) 02/27/2022 Pneumococcal Conjugate Vacc, 13 Valent (Prevnar) [...] No 04/20/2024 Does the household have a [facility] source of income? 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 Scheduling: please call patient to schedule 2 hour appt "venofer 05/30" (Dr Tamica Senior). Thanks! Patient will need venofer once a week x4 doses. * Telephone Encounter - Fior Black RN - 07/15/2024 9:59 AM EST Order received. [place] plan built and routed for signature. Can [...] 1:30 PM EST Hem/Onc Treatment Hematology/Oncology Treatment, [place] [address] [place] [phone] Claudia, Chair 1 Hem Onc Scenery [address] [place] [address] 08/25/2024 10:00 AM EDT Office Visit Family Medicine [address] [phone] Bharati Wang MD [address] [place] [address] [place] [address] 09/10/2024 11:30 AM EDT Office Visit Neurosurgery, [place] [address] [place] [address] Yann Jackson MD [address] [place] [address] 09/18/2024 12:00 PM EDT Appointment Vascular Lab [facility] [address] [place] [address] 09/18/2024 12:30 PM EDT Appointment Vascular Lab [facility] [address] [place] [address] 09/18/2024 1:20 PM EDT Office Visit Vascular Surg [facility] [address] [place] [address] Samson Dnenis MD [address] [place] [address] Scheduled Procedures Name Priority Associated Diagnoses Date/Ti [...] D LEVEL ONCE IN A LIFETIME-USE SMARTSET# 11095 Completed 02/12/2018, 04/25/2015, 09/24/2014, Additional history exists [...] this encounter Medical Devices Implanted Type Area Sole Tier Device Identifier Shelf Expiration Date Model / Serial / Lot Coil Target 3d [id number] - [id number] Implanted:Qty : 1 on 04/15/2024 by Yann Jackson MD [place] [facility] [place]: Head ANNAMARIA : NEUROVASCULAR [id number] 12/16/2024 [id number] 60 / / [id number] 6cm, Coil Swiftpac Implanted:Qty : 1 on 04/15/2024 by Yann Jackson MD [place] [facility] N/A: Head [employer] 12/16/2028 [id number] / / [id number] 45cm, Coil Swiftpac Implanted:Qty : 1 on 04/15/2024 by Yann Jackson MD [place] [facility] N/A: Head [employer] 12/16/2028 [id number] / / [id number] 60cm, Coil Swiftpac Implanted:Qty : 1 on 04/15/2024 by Yann Jackson MD [place] [facility] N/A: Head [employer] 11/02/2028 [id number] / / [id number] Coil Target 3d 8khw1hf - [id number] Implanted:Qty : 1 on 04/15/2024 by Yann Jackson MD [place] [facility] [place]A: Head ANNAMARIA : NEUROVASCULAR [id number] 12/24/2024 [id number] 60 / / [id number] Coil Target 360 Soft 4utb94ks - [id number] Implanted:Qty : 1 on 04/15/2024 by Yann Jackson MD [place] [facility] [place]A: Head ANNAMARIA : NEUROVASCULAR [id number] 06/23/2025 [id number] 00 / / [id number] Coil Target 360 Ultra 3bxs49ju - [id number] Implanted:Qty : 1 on 04/15/2024 by Yann Jackson MD [place] [facility] [place]/A: Head ANNAMARIA : NEUROVASCULAR [id number] 05/04/2026 [id number] 00 / / [id number] Coil Target 360 Ultra 0ule6kh - [id number] Implanted:Qty : 1 on 04/15/2024 by Yann Jackson MD at [place] [facility] N/A: Head ANNAMARIA : NEUROVASCULAR [id number] 02/03/2025 [id number] 80 / / [id number] 10cm, Coil Swiftpac Implanted:Qty : 2 on 04/15/2024 by Yann Jackson MD at [place] [facility] N/A: Head [employer] 12/24/2028 [id number] / / [id number] 30cm, Coil Swiftpac Implanted:Qty : 1 on 04/15/2024 by Yann Jackson MD at [place] [facility] N/A: Head [employer] 12/24/2028 [id number] / / [id number] 60cm, Coil Swiftpac Implanted:Qty : 1 on 04/15/2024 by Yann Jackson MD at [place] [facility] N/A: Head [employer] 11/02/2028 [id number] / / [id number] 6cm, Coil Swiftpac Implanted:Qty : 1 on 04/15/2024 by Yann Jackson MD at [place] [facility] N/A: Head [employer] 12/16/2028 [id number] / / [id number] Stent Vasc Hep 8mmx7.7j969av - [id number] Implanted:Qty : 1 on 04/16/2024 by Samson Dennis MD at [place] [facility] Left: Iliac [employer] [id number] 12/29/2026 [id number] / [id number] / [id number] documented as of this encounter Visit Diagnoses [...] Discussed due to patient's condition Care Teams Boxing Promoter Relationship Specialty Start Date End Date Bharati Wang MD [address] [place] [address] [place] [address] PCP - General Family Medicine 10/02/21 documented as of this encounter
--- OUTSIDE RECORDS SUMMARY | 2024-07-31 12:09 | External Medical Summary | Summary of Care ---
Author Name Unknown Organization [facility] Address [address] [place] [address] Phone [phone] Care Team Providers Care Air Conditioning Mechanic Industrial Name Role Phone Bharati Wang MD Primary Care Provide r Encounter Details Date Type Department Care Team (Late st Contact Info) Description 07/15/2024 Orders Only Family Medicine [address] [place] [address] Bharati Wang MD [address] [place] [address] [place] [address] Allergies Active Allergy Reactions Criticality Noted Date [...] No 04/20/2024 Does the household have a [facility] source of income? 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 Not on file Not on file documented as of this encounter Plan of Treatment Upcoming Encounters Date Type Department Care Team (Late st Contact Info) Description 08/25/2024 10:00 AM EDT Office Visit Family Medicine [address] [phone] Bharati Wang MD [address] [place] [address] [place] [address] 09/10/2024 11:30 AM EDT Office Visit Neurosurgery, [address] [address] Yann Jackson MD [facility] [place] [phone] 09/18/2024 12:00 PM EDT Appointment Vascular Lab [address] [address] 09/18/2024 12:30 PM EDT Appointment Vascular Lab [address] [address] 09/18/2024 1:20 PM EDT Office Visit Vascular Surg [address] [address] Samson Dennis MD [facility] [place] [address] Scheduled Procedures Name Priority Associated Diagnoses Date/Ti me ESOPHAGOGASTRODUODENOSCOPY ( EGD), FLEXIBLE, TRANSORAL, DIAGNOSTIC Recall Contreras esophagus Health Maintenance Due Date Last Done Comments Alpha-1 Antitrypsin 1953 Adult Wellness Visit 2002 DXA Scan 04/06/2018 04/06/2016, 09/2012, 02/08/2011, Additional history exists DISCUSS TOBACCO CESSATION (REFER TO SMARTSET #3291) 08/01/2018 08/01/2017 (Discussed) DTap/Tdap Vaccines (2 - Td or Tdap) 06/09/2023 06/09/2013, 01/08/2008 COVID-19 Vaccine (2023- season) 2024 02/27/2022, 03/28/2021, 07/24/2020, Additional history [...] D LEVEL ONCE IN A LIFETIME-USE SMARTSET# 53198 Completed 02/12/2018, 04/25/2015, 09/24/2014, Additional history exists [...] this encounter Medical Devices Implanted Type Area Shell Mold Bonder Device Identifier Shelf Expiration Date Model / Serial / Lot Coil Target 3d 2jjn0ci - [id number] Implanted:Qty : 1 on 04/15/2024 by Yann Jackson MD at [place] [facility] [place] N/A: Head ANNAMARIA : NEUROVASCULAR [id number] 12/16/2024 [id number] 60 / / [id number] 6cm, Coil Swiftpac Implanted:Qty : 1 on 04/15/2024 by Yann Jackson MD at [place] [facility] [place] N/A: Head [employer] 12/16/2028 [id number] / / [id number] 45cm, Coil Swiftpac Implanted:Qty : 1 on 04/15/2024 by Yann Jackson MD at [place] [facility] [place] N/A: Head [employer] 12/16/2028 [id number] / / [id number] 60cm, Coil Swiftpac Implanted:Qty : 1 on 04/15/2024 by Yann Jackson MD at [place] [facility] [place] N/A: Head [employer] 11/02/2028 [id number] / / [id number] Coil Target 3d 9fqk1uy - [id number] Implanted:Qty : 1 on 04/15/2024 by Yann Jackson MD at OR [facility] [place] N/A: Head ANNAMARIA : NEUROVASCULAR [id number] 12/24/2024 [id number] 60 / / [id number] Coil Target 360 Soft 8uqx93by - [id number] Implanted:Qty : 1 on 04/15/2024 by Yann Jackson MD at OR [facility] [place] N/A: Head ANNAMARIA : NEUROVASCULAR [id number] 06/23/2025 [id number] 00 / / [id number] Coil Target 360 Ultra 3abc08ug - [id number] Implanted:Qty : 1 on 04/15/2024 by Yann Jackson MD at OR [facility] [place] N/A: Head ANNAMARIA : NEUROVASCULAR [id number] 05/04/2026 [id number] 00 / / [id number] Coil Target 360 Ultra 0cjf5qu - [id number] Implanted:Qty : 1 on 04/15/2024 by Yann Jackson MD at OR [facility] [place] N/A: Head ANNAMARIA : NEUROVASCULAR [id number] 02/03/2025 [id number] 80 / / [id number] 10cm, Coil Swiftpac Implanted:Qty : 2 on 04/15/2024 by Yann Jackson MD at OR [facility] [place] N/A: Head [employer] 12/24/2028 [id number] / / [id number] 30cm, Coil Swiftpac Implanted:Qty : 1 on 04/15/2024 by Yann Jackson MD at [place] [facility] [place] N/A: Head [employer] 12/24/2028 [id number] / / [id number] 60cm, Coil Swiftpac Implanted:Qty : 1 on 04/15/2024 by Yann Jackson MD at [place] [facility] [place] N/A: Head [employer] 11/02/2028 [id number] / / [id number] 6cm, Coil Swiftpac Implanted:Qty : 1 on 04/15/2024 by Yann Jackson MD at [place] [facility] [place] N/A: Head [employer] 12/16/2028 [id number] / / [id number] Stent Vasc Hep 8mmx7.8v196fd - [id number] Implanted:Qty : 1 on 04/16/2024 by Samson Dennis MD at [place] [facility] [place] Left: Iliac [employer] [id number] 12/29/2026 [id number] / [id number] / [id number] documented as of this encounter Procedures Procedure Name Priority Date/Time Associated Diagnosis Comments CHEMISTRY-OUTSIDE Routine 07/09/2024 CHEMISTRY-OUTSIDE Routine 07/08/2024 documented in this encounter Results * (ABNORMAL) CHEMISTRY-OUTSIDE (07/09/2024) Not all results display below - see scan for full detail OUTSIDE LAB (SEE SCANNED REPORT) Comment:SCAN INCLUDES - CBCD CREATININE OUTSIDE L AB (SEE SCANNED REPORT) EGFR OUTSIDE LA B (SEE SCANNED REPORT) POTASSIUM OUTSIDE LA B (SEE SCANNED REPORT) GLUCOSE OUTSIDE LA B (SEE SCANNED REPORT) HOURS FASTING OUTSID E LAB (SEE SCANNED REPORT) TRIGLYCERIDES-OUT SIDE LAB OUTSIDE LAB (SEE SCANNED REPORT) CHOLESTEROL-OUTSI DE LAB OUTSIDE LAB (SEE SCANNED REPORT) HDL-OUTSIDE LAB OUTS TRAMAINE LAB (SEE SCANNED REPORT) CHOL/HDL RATIO-OUTSIDE LAB OUTSIDE LA B (SEE SCANNED REPORT) LDL (CALCULATED)-OUTS TRAMAINE LAB OUTSIDE LAB (SEE SCANNED REPORT) LDL (DIRECT MEASURE)-OUTSIDE LAB OUTSIDE LAB (SEE SCANNED REPORT) HEMOGLOBIN, I2W-[id number] LAB OUTSIDE LAB (SEE SCANNED REPORT) PHOSPHORUS-OUTSID E LAB OUTSIDE LAB (SEE SCANNED REPORT) PTH-OUTSIDE LAB OUTS TRAMAINE LAB (SEE SCANNED REPORT) MICROALBUMIN RATIO-OUTSIDE LAB OUTSIDE LA B (SEE SCANNED REPORT) PROTEIN, UA-OUTSIDE LAB OUTSIDE LAB (SEE SCANNED REPORT) HGB 7.8(A) 12.0 - 16.0 G/DL OUTSIDE LAB (SEE SCANNED REPORT) 07/09/2024 Cecil Walker DO LABORATORY Final Res ult Performing Organization Address City/[facility]/ZIP Co de Phone Number OUTSIDE LAB (SEE SCANNED REPORT) * (ABNORMAL) CHEMISTRY-OUTSIDE (07/08/2024) Not all results display below - see scan for full detail OUTSIDE LAB (SEE SCANNED REPORT) Comment:SCAN INCLUDES - CBCD CREATININE OUTSIDE L AB (SEE SCANNED REPORT) EGFR OUTSIDE LA B (SEE SCANNED REPORT) POTASSIUM OUTSIDE LA B (SEE SCANNED REPORT) GLUCOSE OUTSIDE LA B (SEE SCANNED REPORT) HOURS FASTING OUTSID E LAB (SEE SCANNED REPORT) TRIGLYCERIDES-OUT SIDE LAB OUTSIDE LAB (SEE SCANNED REPORT) CHOLESTEROL-OUTSI DE LAB OUTSIDE LAB (SEE SCANNED REPORT) HDL-OUTSIDE LAB OUTS TRAMAINE LAB (SEE SCANNED REPORT) CHOL/HDL RATIO-OUTSIDE LAB OUTSIDE LA B (SEE SCANNED REPORT) LDL (CALCULATED)-OUTS TRAMAINE LAB OUTSIDE LAB (SEE SCANNED REPORT) LDL (DIRECT MEASURE)-OUTSIDE LAB OUTSIDE LAB (SEE SCANNED REPORT) HEMOGLOBIN, X8K-PRWMFRB LAB OUTSIDE LAB (SEE SCANNED REPORT) PHOSPHORUS-OUTSID E LAB OUTSIDE LAB (SEE SCANNED REPORT) PTH-OUTSIDE LAB OUTS TRAMAINE LAB (SEE SCANNED REPORT) MICROALBUMIN RATIO-OUTSIDE LAB OUTSIDE LA B (SEE SCANNED REPORT) PROTEIN, UA-OUTSIDE LAB OUTSIDE LAB (SEE SCANNED REPORT) HGB 8.9(A) 12.0 - 16.0 G/DL OUTSIDE LAB (SEE SCANNED REPORT) 07/08/2024 Kalpana Pulido PA-C LABORATORY Final Res ult OUTSIDE LAB (SEE SCANNED REPORT) documented in this encounter Advance Directives * [...] due to patient's condition Care Teams Air Conditioning Mechanic Industrial Relationship Specialty Start Date End Date Bharati Wang MD [address] [place] [address] [place] [address] PCP - General Family Medicine 10/02/21 documented as of this encounter
--- OUTSIDE RECORDS SUMMARY | 2024-07-31 12:09 | External Medical Summary | Summary of Care ---
Author Name Unknown Organization [facility] Address [address] [place] [address] Phone [phone] Care Team Providers Care Associate Creative Director Name Role Phone Bharati Wang MD Primary Care Provide r Reason for Visit * Reason Comments Outpatient Testing Encounter Details Date Type Department Care Team (Late st Contact Info) Description 07/14/2024 2:20 PM EST Laboratory Laboratory [address] [place] [address] [place] [address] Acute blood loss anemia; MyCode Research Other*[id number] Allergies Active Allergy Reactions Criticality Noted Date [...] as of this encounter (statuses as of 07/14/2024) Medications VITAMIN D 2000 UNITS PO CAPS [...] as of this encounter (statuses as of 07/14/2024) Active Problems Problem Noted Date Diagnosed Date [...] as of this encounter (statuses as of 07/14/2024) Resolved Problems Problem Noted Date Diagnosed Date [...] as of this encounter (statuses as of 07/14/2024) Immunizations Name Administration Dates Next Due COVID-19 [...] No 04/20/2024 Does the household have a [facility] source [facility] income? 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 Not on file Not on file documented as of this encounter Plan of Treatment Upcoming Encounters Date Type Department Care Team (Late st Contact Info) Description 08/25/2024 10:00 AM EDT Office Visit Family Medicine [address] [address] Bharati Wang MD [address] [place] [address] [place] [address] 09/10/2024 11:30 AM EDT Office Visit Neurosurgery, [place] [address] [place] [address] Yann Jackson MD [address] [place] [address] 09/18/2024 12:00 PM EDT Appointment Vascular Lab [place] [address] [place] [address] 09/18/2024 12:30 PM EDT Appointment Vascular Lab [place] [address] [place] [address] 09/18/2024 1:20 PM EDT Office Visit Vascular Surg [place] [address] [place] [address] Samson Dennis MD [facility] [place] [address] Pending Results Name Type Priority Associated Diagnoses Date /Time CBC Lab Routine Acute blood loss anemia 07/14/2024 1:53 PM EST BASIC METABOLIC PANEL Lab Routine Acute blood loss anemia 07/14/2024 1:53 PM EST MYCODE SUBSEQUENT ADULT Lab Routine [employer] Other*[id number] 07/14/2024 1:58 PM EST MYCODE SST1 Lab Routine [employer] Other*[id number] 07/14/2024 1:58 PM EST MYCODE SST2 Lab Routine [employer] Other*[id number] 07/14/2024 1:58 PM EST Scheduled Procedures Name Priority Associated [...] D LEVEL ONCE IN A LIFETIME-USE SMARTSET# 31970 Completed 02/12/2018, 04/25/2015, 09/24/2014, Additional history exists [...] this encounter Medical Devices Implanted Type Area Hris Analyst Device Identifier Shelf Expiration Date Model / Serial / Lot Coil Target 3d [id number] - [id number] Implanted:Qty : 1 on 04/15/2024 by Yann Jackson MD at OR [facility] [place] N/A: Head ANNAMARIA : NEUROVASCULAR [id number] 12/16/2024 [id number] 60 / / [id number] 6cm, Coil Swiftpac Implanted:Qty : 1 on 04/15/2024 by Yann Jackson MD at OR [facility] [place] N/A: Head [employer] 12/16/2028 [id number] / / [id number] 45cm, Coil Swiftpac Implanted:Qty : 1 on 04/15/2024 by Yann Jackson MD at OR [facility] [place] N/A: Head [employer] 12/16/2028 [id number] / / [id number] 60cm, Coil Swiftpac Implanted:Qty : 1 on 04/15/2024 by Yann Jackson MD at OR [facility] [place] N/A: Head [employer] 11/02/2028 [id number] / / [id number] Coil Target 3d 1cgb0mq - [id number] Implanted:Qty : 1 on 04/15/2024 by Yann Jackson MD at OR [facility] [place] N/A: Head ANNAMARIA : NEUROVASCULAR [id number] 12/24/2024 [id number] 60 / / [id number] Coil Target 360 Soft 5uix92dc - [id number] Implanted:Qty : 1 on 04/15/2024 by Yann Jackson MD at OR [facility] [place] N/A: Head ANNAMARIA : NEUROVASCULAR [id number] 06/23/2025 [id number] 00 / / [id number] Coil Target 360 Ultra 7flk00sd - [id number] Implanted:Qty : 1 on 04/15/2024 by Yann Jackson MD at OR [facility] [place] N/A: Head ANNAMARIA : NEUROVASCULAR [id number] 05/04/2026 [id number] 00 / / [id number] Coil Target 360 Ultra 6vzb0ml - [id number] Implanted:Qty : 1 on 04/15/2024 by Yann Jackson MD at OR [facility] [place] N/A: Head ANNAMARIA : NEUROVASCULAR [id number] 02/03/2025 [id number] 80 / / [id number] 10cm, Coil Swiftpac Implanted:Qty : 2 on 04/15/2024 by Yann Jackson MD at OR [facility] [place] N/A: Head [employer] 12/24/2028 [id number] / / [id number] 30cm, Coil Swiftpac Implanted:Qty : 1 on 04/15/2024 by Yann Jackson MD at OR [facility] [place] N/A: Head [employer] 12/24/2028 [id number] / / [id number] 60cm, Coil Swiftpac Implanted:Qty : 1 on 04/15/2024 by Yann Jackson MD at OR [facility] [place] N/A: Head [employer] 11/02/2028 [id number] / / [id number] 6cm, Coil Swiftpac Implanted:Qty : 1 on 04/15/2024 by Yann Jackson MD at OR [facility] N/A: Head [employer] 12/16/2028 [id number] / / [id number] Stent Vasc Hep 8mmx7.6n319rg - [id number] Implanted:Qty : 1 on 04/16/2024 by Samson Dennis MD at OR [facility] [place] Left: Iliac [employer] [id number] 12/29/2026 [id number] / [id number] / [id number] documented as of this encounter Visit Diagnoses Diagnosis Acute blood loss anemia Acute posthemorrhagic anemia MyCode Research Other*[id number] documented in this encounter Advance Directives * [...] Discussed due to patient's condition Care Teams Associate Creative Director Relationship Specialty Start Date End Date Bharati Wang MD [address] [place] [address] [place] [phone] PCP - General Family Medicine 10/02/21 documented as of this encounter
--- OUTSIDE RECORDS SUMMARY | 2024-07-31 12:09 | External Medical Summary | Summary of Care ---
Author Name Unknown Organization [facility] Address [address] [place] [address] Phone [phone] Care Team Providers Care Cinder Snapper Name Role Phone Bharati Wang MD Primary Care Provide r Encounter Details Date Type Department Care Team (Late st Contact Info) Description 07/14/2024 Orders Only Family Medicine [address] [address] Bharati Wang MD [address] [place] [address] [place] [phone] Allergies Active Allergy Reactions Criticality Noted Date [...] Tablet before bedtime. 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 Not on file Not on file documented as of this encounter Plan of Treatment Upcoming Encounters Date Type Department Care Team (Late st Contact Info) Description 07/14/2024 1:40 PM EST Office Visit Family Medicine [address] [place] [phone] Tamica Espinal MD [address] [place] [address] [place] [phone] 08/25/2024 10:00 AM EDT Office Visit Family [address] [place] [phone] Bharati Wang MD [address] [place] [address] [place] [address] 09/10/2024 11:30 AM EDT Office Visit Neurosurgery, [address] [address] Yann Jackson MD [facility] [phone] 09/18/2024 12:00 PM EDT Appointment Vascular Lab [address] [address] 09/18/2024 12:30 PM EDT Appointment Vascular Lab [address] [address] 09/18/2024 1:20 PM EDT Office Visit Vascular Surg [address] [address] Samson Dennis MD [facility] [place] [address] Scheduled Procedures Name Priority Associated Diagnoses Date/Ti [...] D LEVEL ONCE IN A LIFETIME-USE SMARTSET# 66874 Completed 02/12/2018, 04/25/2015, 09/24/2014, Additional history exists [...] this encounter Medical Devices Implanted Type Area Picker And Packer Device Identifier Shelf Expiration Date Model / Serial / Lot Coil Target 3d 1ucs2wd - [id number] Implanted:Qty : 1 on 04/15/2024 by Yann Jackson MD at OR [facility] [place] N/A: Head ANNAMARIA : NEUROVASCULAR [id number] 12/16/2024 [id number] 60 / / [id number] 6cm, Coil Swiftpac Implanted:Qty : 1 on 04/15/2024 by Yann Jackson MD at OR [facility] [place] N/A: Head [employer] 12/16/2028 [id number] / / [id number] 45cm, Coil Swiftpac Implanted:Qty : 1 on 04/15/2024 by Yann Jackson MD at OR [facility] [place] N/A: Head [employer] 12/16/2028 [id number] / / [id number] 60cm, Coil Swiftpac Implanted:Qty : 1 on 04/15/2024 by Yann Jackson MD at OR [facility] [place] N/A: Head [employer] 11/02/2028 [id number] / / [id number] Coil Target 3d 5iaf5xe - [id number] Implanted:Qty : 1 on 04/15/2024 by Yann Jackson MD at OR [facility] [place] N/A: Head ANNAMARIA : NEUROVASCULAR [id number] 12/24/2024 [id number] 60 / / [id number] Coil Target 360 Soft 5wwv84ns - [id number] Implanted:Qty : 1 on 04/15/2024 by Yann Jackson MD at OR [facility] [place] N/A: Head ANNAMARIA : NEUROVASCULAR [id number] 06/23/2025 [id number] 00 / / [id number] Coil Target 360 Ultra 4nde91dq - [id number] Implanted:Qty : 1 on 04/15/2024 by Yann Jackson MD at OR [facility] [place] N/A: Head ANNAMARIA : NEUROVASCULAR [id number] 05/04/2026 [id number] 00 / / [id number] Coil Target 360 Ultra 5btg8er - [id number] Implanted:Qty : 1 on 04/15/2024 by Yann Jackson MD at OR [facility] [place] N/A: Head ANNAMARIA : NEUROVASCULAR [id number] 02/03/2025 [id number] 80 / / [id number] 10cm, Coil Swiftpac Implanted:Qty : 2 on 04/15/2024 by Yann Jackson MD at OR [facility] [place] N/A: Head [employer] 12/24/2028 [id number] / / [id number] 30cm, Coil Swiftpac Implanted:Qty : 1 on 04/15/2024 by Yann Jackson MD at OR [facility] [place] N/A: Head [employer] 12/24/2028 [id number] / / [id number] 60cm, Coil Swiftpac Implanted:Qty : 1 on 04/15/2024 by Yann Jackson MD at OR [facility] [place] N/A: Head [employer] 11/02/2028 [id number] / / [id number] 6cm, Coil Swiftpac Implanted:Qty : 1 on 04/15/2024 by Yann Jackson MD at OR [facility] [place] N/A: Head [employer] 12/16/2028 [id number] / / [id number] Stent Vasc Hep 8mmx7.0h636nz - [id number] Implanted:Qty : 1 on 04/16/2024 by Samson Dennis MD at OR [facility] [place] Left: Iliac [employer] [id number] 12/29/2026 [id number] 2A / [id number] / [id number] documented as of this encounter Procedures Procedure Name Priority Date/Time Associated Diagnosis Comments UPPER ENDOSCOPY, OUTSIDE PROCEDURE Routine 07/09/2024 documented in this encounter Results * UPPER ENDOSCOPY, OUTSIDE PROCEDURE (07/09/2024) 07/09/2024 us History Per Patient GASTRO UPPER Final Result OUTSIDE LAB (SEE SCANNED REPORT) documented in [...] Discussed due to patient's condition Care Teams Cinder Snapper Relationship Specialty Start Date End Date Bharati Wang MD [address] [place] [address] [place] [phone] PCP - General Family Medicine 10/02/21 documented as of this encounter
--- OUTSIDE RECORDS SUMMARY | 2024-07-31 12:09 | External Medical Summary | Summary of Care ---
Author Name Unknown Organization [facility] Address [address] [place] [address] Phone [phone] Care Team Providers Care Nursing Manager Name Role Phone Bharati Wang MD Primary Care Provide r Reason for Visit * Reason Onset Date Comments Test Results 07/15/2024 Hgb, rec IV iron Encounter Details Date Type Department Care Team (Late st Contact Info) Description 07/15/[address] [phone] Tamica Espinal MD [address] [place] [address] [place] [phone] Test Results (Hgb, rec [...] fracture of humerus 08/07/2019 01/22/2024 Overview (08/10/2019): [facility] Bilateral sciatica 06/01/2019 4 Spasm of [...] 30 Mcg, IM, 12 yrs and above (3D Data) 02/27/2022 Pneumococcal Conjugate Vacc, 13 Valent (Prevnar) [...] No 04/20/2024 Does the household [facility]? 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 Scheduling: please call patient to schedule 2 hour appt "venofer 05/30" (Dr Tamica Senior). Thanks! Patient will need venofer once a week x4 doses. * Telephone Encounter - Fior Black RN - 07/15/2024 9:59 AM EST Order received. [place] plan built and routed for signature. Can [...] 1:30 PM EST Hem/Onc Treatment Hematology/Oncology Treatment, [place] [address] [place] [phone] Claudia, Chair 1 Hem Onc Scenery [address] [place] [address] 08/25/2024 10:00 AM EDT Office Visit Family Medicine [address] [phone] Bharati Wang MD [address] [place] [address] [place] [address] 09/10/2024 11:30 AM EDT Office Visit Neurosurgery, [place] [address] [place] [address] Yann Jackson MD [address] [place] [address] 09/18/2024 12:00 PM EDT Appointment Vascular Lab [place] [address] [place] [address] 09/18/2024 12:30 PM EDT Appointment Vascular Lab [facility] [address] [place] [address] 09/18/2024 1:20 PM EDT Office Visit Vascular Surg [facility] [address] [place] [address] Samson Dennis MD [address] [place] [address] Scheduled Procedures Name Priority Associated Diagnoses Date/Ti [...] D LEVEL ONCE IN A LIFETIME-USE SMARTSET# 46519 Completed 02/12/2018, 04/25/2015, 09/24/2014, Additional history exists [...] encounter Medical Devices Implanted Type Area Instructional Support Specialist Device Identifier Shelf Expiration Date Model / Serial / Lot Coil Target 3d 5ahl3qq - [id number] Implanted:Qty : 1 on 04/15/2024 by Yann Jackson MD at OR [facility] [place] N/A: Head ANNAMARIA : NEUROVASCULAR [id number] 12/16/2024 [id number] 60 / / [id number] 6cm, Coil Swiftpac Implanted:Qty : 1 on 04/15/2024 by Yann Jackson MD at OR [facility] [place] N/A: Head [employer] 12/16/2028 [id number] / / [id number] 45cm, Coil Swiftpac Implanted:Qty : 1 on 04/15/2024 by Yann Jackson MD at OR [facility] [place] N/A: Head [employer] 12/16/2028 [id number] / / [id number] 60cm, Coil Swiftpac Implanted:Qty : 1 on 04/15/2024 by Yann Jackson MD at OR [facility] [place] N/A: Head [employer] 11/02/2028 [id number] / / [id number] Coil Target 3d 3urx3lk - [id number] Implanted:Qty : 1 on 04/15/2024 by Yann Jackson MD at OR [facility] [place] N/A: Head ANNAMARIA : NEUROVASCULAR [id number] 12/24/2024 [id number] 60 / / [id number] Coil Target 360 Soft 0ncn91kb - [id number] Implanted:Qty : 1 on 04/15/2024 by Yann Jackson MD at OR [facility] [place] N/A: Head ANNAMARIA : NEUROVASCULAR [id number] 06/23/2025 [id number] 00 / / [id number] Coil Target 360 Ultra 4whu90vk - [id number] Implanted:Qty : 1 on 04/15/2024 by Yann Jackson MD at OR [facility] [place] N/A: Head ANNAMARIA : NEUROVASCULAR [id number] 05/04/2026 [id number] 00 / / [id number] Coil Target 360 Ultra 1mry4gv - [id number] Implanted:Qty : 1 on 04/15/2024 by Yann Jackson MD at OR [facility] [place] N/A: Head ANNAMARIA : NEUROVASCULAR [id number] 02/03/2025 [id number] 80 / / [id number] 10cm, Coil Swiftpac Implanted:Qty : 2 on 04/15/2024 by Yann Jackson MD at OR [facility] [place] N/A: Head [employer] 12/24/2028 [id number] / / [id number] 30cm, Coil Swiftpac Implanted:Qty : 1 on 04/15/2024 by Yann Jackson MD at OR [facility] [place] N/A: Head [employer] 12/24/2028 [id number] / / [id number] 60cm, Coil Swiftpac Implanted:Qty : 1 on 04/15/2024 by Yann Jackson MD at OR [facility] [place] N/A: Head [employer] 11/02/2028 [id number] / / [id number] 6cm, Coil Swiftpac Implanted:Qty : 1 on 04/15/2024 by Yann Jackson MD at OR [facility] [place] N/A: Head [employer] 12/16/2028 [id number] / / [id number] Stent Vasc Hep 8mmx7.9n452fa - [id number] Implanted:Qty : 1 on 04/16/2024 by Samson Dennis MD at OR [facility] [place] Left: Iliac [employer] [id number] 12/29/2026 [id number] 2A / [id number] / [id number] documented as of this encounter Visit Diagnoses [...] Discussed due to patient's condition Care Teams Nursing Manager Relationship Specialty Start Date End Date Bharati Wang MD [address] [place] [address] [place] [address] PCP - General Family Medicine 10/02/21 documented as of this encounter
--- OUTSIDE RECORDS SUMMARY | 2024-07-31 12:09 | External Medical Summary | Summary of Care ---
Author Name Unknown Organization [facility] Address [address] [place] [address] Phone [phone] Care Team Providers Care Database Programmer Analyst Name Role Phone Bharati Wang MD Primary Care Provide r Reason for Visit * Reason Onset Date Comments Hospital Follow-Up Hospital Follow-Up 07/14/2024 Encounter Details Date Type Department Care Team (Latest Contact Info) Description 07/14/2024 1:40 PM EST Office Visit Family Medicine [address] [phone] Tamica Espinal MD [address] [place] [address] [place] [phone] Hospital discharge follow-up*; Gastrointestinal hemorrhage, unspecified gastrointestinal hemorrhage type; Acute blood loss anemia; Oral herpes simplex infection Allergies Active Allergy Reactions Criticality Noted Date [...] 1 Capsule by mouth daily with dinner. 08/25/19 14 [...] the evening 16 g 02/03/20 24 Active amLODIPine Besylate 5 MG Oral [...] morning. 30 Tablet 5 05/15/20 24 Active Lisinopril 20 MG Oral Tablet (Prinivil)Yamileth cations:HTN, goal below 140/90 Take 1 Tablet by mouth in the morning. 90 Tablet 1 06/25/19 25 Active Pantoprazole Sodium 40 MG Oral Packet (Protonix) Administer 40 mg into feeding tube in the morning and 40 mg before bedtime. Active Acyclovir 5 % External Cream (Zovirax) Apply topically to affected area 5 times a day for 4 days. apply to lip sores as soon as symptoms start. 2 g 5 07/14/19 25 025 Active Eliquis 5 MG Oral Tablet (Apixaban)Yamileth cations:Caroti d-cavernous fistula,Thromb oembolus (HCC) Take 1 Tablet by mouth in the morning and 1 Tablet before bedtime. 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 Not on file Not on file Not on file documented as of this encounter Last Filed Vital Signs Vital Sign Reading Time Taken Comments Blood Pressure 114/70 07/14/2024 1:22 PM EST Pulse 74 07/14/2024 1:22 PM EST Temperature 35.7 C (96.2 F) 07/14/2024 1:22 PM ES T Respiratory Rate - - Oxygen Saturation 99% 07/14/2024 1:22 PM EST Inhaled Oxygen Concentration - - Weight 73.1 kg (161 lb 3.2 oz) 07/14/2024 1:22 P M EST Height 162.6 cm (5' 4") 07/14/2024 1:22 PM EST Body Mass Index 27.67 07/14/2024 1:22 PM EST documented in this encounter Patient Instructions * Patient Instructions* Tamica Espinal MD - 07/14/2024 1:29 PM EST Ok to do docusate for bowels. Metamucil ok. Drink lots of water. Abreva if can't get topical acyclovir Taking Medicine Safely Medicine is given to help treat or prevent illness. But if you don't take it correctly, it might not help. It might even harm you. Your doctor or pharmacist can help you learn the right way to take your medicine. Listed below are some tips to help you take medicine safely. Safety Tips Have a routine for taking each medicine. Make it part of something you do each day, such as brushing your teeth or eating a meal. When you go to the hospital or your doctor's office, bring all your current medicines in their original boxes or bottles. If you can't do that, bring an up-to-date list of your medicines. Do not stop taking a prescription medicine unless your doctor tells you to. Doing so could make your condition worse. Do not share medicines. Let your doctor and pharmacist know of any allergies you have. Taking prescription medicines with alcohol, street drugs, herbs, supplements, or even some ccbx-wyx-rdxgxqf medicines can be harmful. Talk to your doctor or pharmacist before using any of these things while taking a prescription medicine. When filling your prescriptions, try using the same pharmacy for all your medicines. If not, let the pharmacist know what medicines you are already on. Keep medicines out of the reach of children and pets. Do not use medicine that has or that doesn't look or smell right. Get rid of it properly. To find out the right way to get rid of medicine: Call your [facility] or [facility]'s household trash and recycling service and ask if a drug take-back program is available in your community. Call your local pharmacy and ask the right way to get rid of the medicine. Go to http://www.fda.gov/ForConsumers/ConsumerUpdates/rzu243940 to learn how to get rid of medicines safely. Using Generic Medicines Medicines have brand names and generic (chemical) names. When a medicine is first made, it is sold only under its brand name. Later, it can be made and sold as a generic. Generic medicines cost less than brand-name medicines and most work just as well. Most people can use the generic medicine instead of the brand-name medicine, unless their doctor says otherwise. [address] [place] [address]. All rights reserved. This information is not intended as a substitute for professional medical care. Always follow your healthcare professional's instructions. documented in this encounter Progress Notes * Tamica Espinal MD - 07/14/2024 1:28 PM EST SUBJECTIVE: Josefa Ramírez is a 88 year old female. Chief Complaint Patient presents with Hospital Follow-Up Hospital Follow-Up Recent Admission: Patient was recently admitted to [facility] 07/09. The date of discharge was 07/11 due to GI bleed. Discharge report received and reviewed. Criss laraquclifford, is back on plavix. Had EGD and colonoscopy while inpatient. Unable to see the siteof the bleeding with either. Hgb 8.1 on d/c. HPI: To see GI for possible capsule endoscopy. Appointment not scheduled yet. To see Vascular in August. Hasn't yet had a BM in 3 days. Did have a colonscopy prep and the bleeding. Has been trying prune juice. Is passing gas. Feeling tired yet. No need for DME or Home services at this time. Doesn't tolerate oral iron due to constipation issues. 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 TYLENOL EX [...] mouth in the morning. 90 Tablet 1 Pantoprazole Sodium 40 MG Oral Packet (Protonix) Administer 40 mg into feeding tube in the morning and 40 mg before bedtime. Eliquis 5 MG Oral Tablet (Apixaban) Take 1 Tablet by mouth in the morning and 1 Tablet before bedtime. (Patient not taking: Reported on 07/14/2024) 180 Tablet 0 No current facility-administered medications for this visit. Current and discharge medications have been reconciled. Review of patient's allergies indicates: Allergen Reactions Cephalosporins Other Reaction(s): Hives Cilastatin Other Reaction(s): Dyspnea Imipenem Other Reaction(s): Dyspnea Meropenem Other Reaction(s): Dyspnea Penicillamine Other Reaction(s): Dyspnea Ranitidine Other Reaction(s): Dyspnea Ampicillin Hives/trouble breathing Azithromycin hives and angioedema Carbapenems Other Reaction(s): Dyspnea OBJECTIVE: BP 114/70 | Pulse 74 | Temp 96.2 F (35.7 C) (Infrared ) | Ht 5' 4" (1.626 m) | Wt 161 lb 3.2 oz(73.1 kg) | SpO2 99% | BMI 27.67 kg/m | BSA 1.82 m PHYSICAL EXAM: BP 114/70 | Pulse 74 | Temp 96.2 F (35.7 C) (Infrared ) | Ht 5' 4" (1.626 m) | Wt 161 lb 3.2 oz(73.1 kg) | SpO2 99% | BMI 27.67 kg/m | BSA 1.82 m General: alert, healthy, and no distress; lower lip with ulcerated area Heart: regular rate & rhythm, no murmur, and no gallops Lungs: chest symmetric with normal AP diameter, no chest deformities noted, no chest wall tenderness, lungs clear to auscultation Abdomen: abdomen soft, non-tender, normal bowel sounds, and no masses or organomegaly Extremities: less than 2 second capillary refill, no joint deformities, effusion, or inflammation, no edema ASSESSMENT: Hospital discharge follow-up (Primary) - DISCH MED RECON CUR MED LIS Gastrointestinal hemorrhage, unspecified gastrointestinal hemorrhage type; Acute blood loss anemia - CBC; Future; Expected date: 07/14/2024 - BASIC METABOLIC PANEL; Future; Expected date: 07/14/2024 Check labs today. Consider iron infusion if Hgb not recovering. Can't tolerate PO. For GI and Vascular follow up. Rec stay off the eliquis at this time, and remain on plavix at leastuntil she sees vascular in a few weeks. Oral herpes simplex infection Topical acyclovir, if not covered can try abreva Other orders - Acyclovir 5 % External Cream (Zovirax); Apply topically to affected area 5 times a day for 4 days. apply to lip sores as soon as symptoms start. Iron infusion- Rhonda PLAN: Follow up in 6 week(s). I spent a total of 20-29 minutes (exact time 24 mins) minutes on the date of service in preparation, delivery, and documentation of the care provided to Josefa Ramírez excluding any time spent in performance of separately billed services. Tamica Mathias MD documented in this encounter Nursing Notes * Dinorah Hauser CMA - 07/14/2024 1:22 PM EST Hospital f/u Pt reports was in for internal bleeding, Had colonoscopy and endoscopy which found bleeding in her bowel. reports has not had a BM yet and is not allowed to a laxative only stool softener. States may need labs drawn again to check her Hemoglobin and hematocrit documented in this encounter Plan of Treatment Upcoming Encounters Date Type Department Care Team (Late st Contact Info) Description 08/25/2024 10:00 AM EDT Office Visit Family Medicine [address] [phone] Bharati Wang MD [address] [place] [address] [place] [address] 09/10/2024 11:30 AM EDT Office Visit Neurosurgery, [place] [address] [place] [address] Yann Jackson MD [address] [place] [phone] 09/18/2024 12:00 PM EDT Appointment Vascular Lab [facility] [address] [place] [address] 09/18/2024 12:30 PM EDT Appointment Vascular Lab [place] [address] [place] [address] 09/18/2024 1:20 PM EDT Office Visit Vascular Surg [place] [address] [place] [address] Samson Dennis MD [address] [place] [address] Pending Results Name Type Priority Associated Diagnoses Date /Time CBC Lab Routine Acute blood loss anemia 07/14/2024 1:53 PM EST BASIC METABOLIC PANEL Lab Routine Acute blood loss anemia 07/14/2024 1:53 PM EST Scheduled Orders Name Type Priority Associated Diagnoses Orde r Schedule CBC Lab Routine Acute blood loss anemia Expected: 07/14/2024 (Approximate), Expires: 07/14/2025 BASIC METABOLIC PANEL Lab Routine Acute blood loss anemia Expected: 07/14/2024 (Approximate), Expires: 07/14/2025 Scheduled Procedures Name Priority Associated Diagnoses Date/Ti [...] D LEVEL ONCE IN A LIFETIME-USE SMARTSET# [id number] Completed 02/12/2018, 04/25/2015, 09/24/2014, Additional history exists [...] this encounter Medical Devices Implanted Type Area Backfiller Device Identifier Shelf Expiration Date Model / Serial / Lot Coil Target 3d [id number] - [id number] Implanted:Qty : 1 on 04/15/2024 by Yann Jackson MD at [facility] N/A: Head ANNAMARIA : NEUROVASCULAR [id number] 12/16/2024 [id number] / / [id number] 6cm, Coil Swiftpac Implanted:Qty : 1 on 04/15/2024 by Yann Jackson MD at [facility] N/A: Head [employer] 12/16/2028 [id number] / / [id number] 45cm, Coil Swiftpac Implanted:Qty : 1 on 04/15/2024 by Yann Jackson MD at OR [facility] N/A: [employer] 12/16/2028 [id number] / / [id number] 60cm, Coil Swiftpac Implanted:Qty : 1 on 04/15/2024 by Yann Jackson MD at OR [facility] N/A: Head [employer] 11/02/2028 [id number] / / [id number] Coil Target 3d 5bra9th - [id number] Implanted:Qty : 1 on 04/15/2024 by Yann Jackson MD at OR [facility] N/A: Head ANNAMARIA : NEUROVASCULAR [id number] 12/24/2024 [id number] 60 / / [id number] Coil Target 360 Soft 6meq83yg - [id number] Implanted:Qty : 1 on 04/15/2024 by Yann Jackson MD at OR [facility] N/A: Head ANNAMARIA : NEUROVASCULAR [id number] 06/23/2025 [id number] 00 / / [id number] Coil Target 360 Ultra 9kvr10cd - [id number] Implanted:Qty : 1 on 04/15/2024 by Yann Jackson MD at OR [facility] N/A: Head ANNAMARIA : NEUROVASCULAR [id number] 05/04/2026 [id number] 00 / / [id number] Coil Target 360 Ultra 5pqi9qz - [id number] Implanted:Qty : 1 on 04/15/2024 by Yann Jackson MD at OR [facility] N/A: Head ANNAMARIA : NEUROVASCULAR [id number] 02/03/2025 [id number] 80 / / [id number] 10cm, Coil Swiftpac Implanted:Qty : 2 on 04/15/2024 by Yann Jackson MD at OR [facility] N/A: Head [employer] 12/24/2028 [id number] / / [id number] 30cm, Coil Swiftpac Implanted:Qty : 1 on 04/15/2024 by Yann Jackson MD at OR [facility] N/A: Head [employer] 12/24/2028 [id number] / / [id number] 60cm, Coil Swiftpac Implanted:Qty : 1 on 04/15/2024 by Yann Jackson MD at OR [facility] N/A: Head [employer] 11/02/2028 [id number] / / [id number] 6cm, Coil Swiftpac Implanted:Qty : 1 on 04/15/2024 by Yann Jackson MD at OR [facility] N/A: Head [employer] 12/16/2028 [id number] / / [id number] Stent Vasc Hep 8mmx7.0i072xn - [id number] Implanted:Qty : 1 on 04/16/2024 by Samson Dennis MD at OR [facility] Left: Iliac [employer] [id number] 12/29/2026 [id number] / [id number] / [id number] documented as of this encounter Visit Diagnoses Diagnosis Hospital discharge follow-up- Primary Other follow-up examination Gastrointestinal hemorrhage, unspecified gastrointestinal hemorrhage type Acute blood loss anemia Acute posthemorrhagic anemia Oral herpes simplex infection Herpetic gingivostomatitis documented in this encounter Advance Directives * [...] Discussed due to patient's condition Care Teams Database Programmer Analyst Relationship Specialty Start Date End Date Bharati Wang MD [address] [place] [address] [place] [address] PCP - General Family Medicine 10/02/21 documented as of this encounter
--- OUTSIDE RECORDS SUMMARY | 2024-07-31 12:09 | External Medical Summary | Summary of Care ---
Author Name Unknown Organization [facility] Address [address] [place] [address] Phone [phone] Care Team Providers Care Music Director Name Role Phone Bharati Wang MD Primary Care Provide r Encounter Details Date Type Department Care Team (Late st Contact Info) Description 07/14/2024 Orders Only Family Medicine [address] [phone] Bharati Wang MD [address] [place] [address] [place] [phone] Allergies Active Allergy Reactions Criticality Noted Date [...] fracture of humerus 08/07/2019 01/22/2024 Overview (08/10/2019): [facility] Bilateral sciatica 06/01/2019 4 Spasm of [...] No 04/20/2024 Does the household have a [facility] source of income? 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 file Not on file Not on file documented as of this encounter Plan of Treatment Upcoming Encounters Date Type Department Care Team (Late st Contact Info) Description 07/14/2024 1:40 PM EST Office Visit Family Medicine [address] [place] [phone] Tamica Espinal MD [address] [place] [address] [place] [phone] 08/25/2024 10:00 AM EDT Office Visit Family [address] [place] [phone] Bharati Wang MD [address] [place] [address] [place] [address] 09/10/2024 11:30 AM EDT Office Visit Neurosurgery, [address] [address] Yann Jackson MD [facility] [place] [phone] 09/18/2024 12:00 PM EDT Appointment Vascular Lab [address] [address] 09/18/2024 12:30 PM EDT Appointment Vascular Lab [address] [address] 09/18/2024 1:20 PM EDT Office Visit Vascular Surg [address] [address] Samson Dennis MD [facility] [place] [address] Scheduled Procedures Name Priority Associated Diagnoses Date/Ti [...] D LEVEL ONCE IN A LIFETIME-USE SMARTSET# [id number] Completed 02/12/2018, 04/25/2015, 09/24/2014, Additional history exists [...] this encounter Medical Devices Implanted Type Area Fuel Attendant Device Identifier Shelf Expiration Date Model / Serial / Lot Coil Target 3d 7kea2hx - [id number] Implanted:Qty : 1 on 04/15/2024 by Yann Jackson MD at OR [facility] N/A: Head ANNAMARIA : NEUROVASCULAR [id number] 12/16/2024 [id number] 60 / / [id number] 6cm, Coil Swiftpac Implanted:Qty : 1 on 04/15/2024 by Yann Jackson MD at OR [facility] N/A: Head [employer] 12/16/2028 [id number] / / [id number] 45cm, Coil Swiftpac Implanted:Qty : 1 on 04/15/2024 by Yann Jackson MD at OR [facility] N/A: Head [employer] 12/16/2028 [id number] / / [id number] 60cm, Coil Swiftpac Implanted:Qty : 1 on 04/15/2024 by Yann Jackson MD at OR [facility] N/A: Head [employer] 11/02/2028 [id number] / / [id number] Coil Target 3d 4zec4ab - [id number] Implanted:Qty : 1 on 04/15/2024 by Yann Jackson MD at OR [facility] N/A: Head ANNAMARIA : NEUROVASCULAR [id number] 12/24/2024 [id number] 60 / / [id number] Coil Target 360 Soft 2rvd05yt - [id number] Implanted:Qty : 1 on 04/15/2024 by Yann Jackson MD at OR [facility] N/A: Head ANNAAMRIA : NEUROVASCULAR [id number] 06/23/2025 [id number] 00 / / [id number] Coil Target 360 Ultra 7fbc84un - [id number] Implanted:Qty : 1 on 04/15/2024 by Yann Jackson MD at OR [facility] N/A: Head ANNAMARIA : NEUROVASCULAR [id number] 05/04/2026 [id number] / / [id number] Coil Target 360 Ultra 8sqd3ga - [id number] Implanted:Qty : 1 on 04/15/2024 by Yann Jackson MD at OR [facility] N/A: Head ANNAMARIA : NEUROVASCULAR [id number] 02/03/2025 [id number] 80 / / [id number] 10cm, Coil Swiftpac Implanted:Qty : 2 on 04/15/2024 by Yann Jackson MD at OR [facility] N/A: Head [employer] 12/24/2028 [id number] / / [id number] 30cm, Coil Swiftpac Implanted:Qty : 1 on 04/15/2024 by Yann Jackson MD at OR [facility] N/A: Head [employer] 12/24/2028 [id number] / / [id number] 60cm, Coil Swiftpac Implanted:Qty : 1 on 04/15/2024 by Yann Jackson MD at OR [facility] N/A: [employer] 11/02/2028 [id number] / / [id number] 6cm, Coil Swiftpac Implanted:Qty : 1 on 04/15/2024 by Yann Jackson MD at OR [facility] N/A: [employer] 12/16/2028 [id number] / / [id number] Stent Vasc Hep 8mmx7.6k189wk - [id number] Implanted:Qty : 1 on 04/16/2024 by Samson Dennis MD at OR [facility] Left: Iliac [employer] [id number] 12/29/2026 [id number] / [id number] / [id number] documented as of this encounter Procedures Procedure Name Priority Date/Time Associated Diagnosis Comments COLONOSCOPY, OUTSIDE PROCEDURE Routine 07/09/2024 documented in this encounter Results * COLONOSCOPY, OUTSIDE PROCEDURE (07/09/2024) 07/09/2024 us History Per Patient GASTRO LOWER Final Result OUTSIDE LAB (SEE SCANNED REPORT) [...] Discussed due to patient's condition Care Teams Music Director Relationship Specialty Start Date End Date Bharati Wang MD [address] [place] [address] [place] [phone] PCP - General Family Medicine 10/02/21 documented as of this encounter
--- OUTSIDE RECORDS SUMMARY | 2024-07-31 12:10 | External Medical Summary ---
Author Name Unknown Address Unknown Organization [id number]:[facility] [place] [address] [place] [address] Laboratory Report Ordering Provider Test Date Status ROSA RECINOS 07/14/2024 13:53:35 Final Observation Date Value Abnormality Reference (Units ) Status BUN 07/14/2024 13:53:35 16 6-20 (mg/dL) Final Creatinine 07/14/2024 13:53:35 0.9 0.5-1.0 (mg/dL) Final Glomerular filtration rate/1.73 sq M.predicted [Volume Rate/Area] in Serum, Plasma or Blood by Creatinine-based formula (CKD-EPI) 07/14/2024 13:53:35 62 >=60 (mL/min) Final eGFR is calculated based on the CKD-EPI 2020 equation. Sodium 07/14/2024 13:53:35 141 135-146 (m mol/L) Final Potassium 07/14/2024 13:53:35 4.7 3.5-5.1 (m mol/L) Final Cl 07/14/2024 13:53:35 106 98-107 (mm ol/L) Final CO2 07/14/2024 13:53:35 25 22-32 (mmo l/L) Final Anion gap 07/14/2024 13:53:35 10 7-15 (mmol /L) Final Glucose 07/14/2024 13:53:35 87 70-120 (mg /dL) Final Calcium 07/14/2024 13:53:35 9.6 8.4-10.2 ( mg/dL) Final Performing Location [facility] [place] [address] [place] [address]
--- OUTSIDE RECORDS SUMMARY | 2024-07-31 12:10 | External Medical Summary ---
Author Name Unknown Address Unknown Organization [id number]:[facility] [place] [address] [place] [address] Laboratory Report Ordering Provider Test Date Status DEE ASHTON 07/14/2024 13:58:17 Final Observation Date Value Abnormality Reference (Units ) Status MYCODE SPECIMEN-SST 07/14/2024 13:58:17 Freezing of extracted DNA, whole blood and/or serum. Final Performing Location LABORATORY [facility] - [address] [place] [address]
--- OUTSIDE RECORDS SUMMARY | 2024-07-31 12:10 | External Medical Summary | Summary of Care ---
Author Name Unknown Organization [facility] Address [address] [place] [address] Phone [phone] Care Team Providers Care Stemmer Machine Name Role Phone Bharati Wang MD Primary Care Provide r Encounter Details Date Type Department Care Team (Late st Contact Info) Description 07/04/2024 Result Scan Unspecified Department <No scans attached> Allergies Active Allergy Reactions Criticality Noted Date Comments Ampicillin 09/23/2003 Hives/trouble breathing Azithromycin 09/24/2003 hives and angioedema Ranitidine 10/29/2002 rash documented as of this encounter (statuses as of 07/08/2024) Medications VITAMIN D 2000 UNITS PO CAPS [...] the morning. 90 Tablet 1 06/25/2024 Active Eliquis 5 MG Oral Tablet (Apixaban)Indic ations:Carotid- cavernous fistula,Thrombo embolus (HCC) Take 1 Tablet by mouth in the morning and 1 Tablet before bedtime. 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 [address] [facility] [place] [address] Jane Abreu CRNP [address] [place] [address] 08/25/2024 10:00 AM EDT Office Visit Family Medicine [address] [phone] Bharati Wang MD [address] [place] [address] [place] [address] 09/10/2024 11:30 AM EDT Office Visit Neurosurgery, [place] [address] [place] [address] Yann Jackson MD [address] [place] [address] 09/18/2024 12:00 PM EDT Appointment Vascular Lab [facility], [place] [address] [place] [address] 09/18/2024 12:30 PM EDT Appointment Vascular Lab [facility], [place] [address] [place] [address] 09/18/2024 1:20 PM EDT Office Visit Vascular Surg [place] [address] [place] [address] Samson Dennis MD [facility] [place] [address] Scheduled Procedures Name Priority Associated Diagnoses Date/Ti me ESOPHAGOGASTRODUODENOSCOPY ( EGD), FLEXIBLE, TRANSORAL, DIAGNOSTIC Recall Contreras esophagus Health Maintenance Due Date Last Done Comments Alpha-1 Antitrypsin 1953 Adult Wellness Visit 2002 DXA Scan 04/06/2018 04/06/2016, 09/2012, 02/08/2011, Additional history exists DISCUSS TOBACCO CESSATION (REFER TO SMARTSET #0401) 08/01/2018 08/01/2017 (Discussed) DTap/Tdap Vaccines (2 - [...] D LEVEL ONCE IN A LIFETIME-USE SMARTSET# 62293 Completed 02/12/2018, 04/25/2015, 09/24/2014, Additional history exists [...] this encounter Medical Devices Implanted Type Area Drum Worker Device Identifier Shelf Expiration Date Model / Serial / Lot Coil Target 3d 0ftf2mi - [id number] Implanted:Qty : 1 on 04/15/2024 [place] [facility] [place] Head ANNAMARIA : NEUROVASCULAR [id number] 12/16/2024 [id number] 60 / / [id number] 6cm, Coil Swiftpac Implanted:Qty : 1 on 04/15/2024 by Yann [place] [facility] [place]: Head [employer] 12/16/2028 [id number] / / [id number] 45cm, Coil Swiftpac Implanted:Qty : 1 on 04/15/2024 by Yann [place] [facility] [place] Head [employer] 12/16/2028 [id number] / / [id number] 60cm, Coil Swiftpac Implanted:Qty : 1 on 04/15/2024 by Yann [place] [facility] [place]: Head [employer] 11/02/2028 [id number] / / [id number] Coil Target 3d [id number] - [id number] Implanted:Qty : 1 on 04/15/2024 by Yann [place] [facility] [place] Head ANNAMARIA : NEUROVASCULAR [id number] 12/24/2024 [id number] 60 / / [id number] Coil Target 360 Soft 3dou97wd - [id number] Implanted:Qty : 1 on 04/15/2024 by Yann [place] [facility] [place] Head ANNAMARIA : NEUROVASCULAR [id number] 06/23/2025 [id number] / / [id number] Coil Target 360 Ultra [id number] - [id number] Implanted:Qty : 1 on 04/15/2024 by Yann [place] [facility] [place]: Head ANNAMARIA : NEUROVASCULAR [id number] 05/04/2026 [id number] 00 / / [id number] Coil Target 360 Ultra 7ugk8wv - [id number] Implanted:Qty : 1 on 04/15/2024 by Yann [place] MD [place] [facility] [place]: Head ANNAMARIA : NEUROVASCULAR [id number] 02/03/2025 [id number] 80 / / [id number] 10cm, Coil Swiftpac Implanted:Qty : 2 on 04/15/2024 by Yann [place] [facility] [place]: Head [employer] 12/24/2028 [id number] / / [id number] 30cm, Coil Swiftpac Implanted:Qty : 1 on 04/15/2024 by Yann [place] [facility] [place]: Head [employer] 12/24/2028 [id number] / / [id number] 60cm, Coil Swiftpac Implanted:Qty : 1 on 04/15/2024 by Yann [place] [facility] [place]: Head [employer] 11/02/2028 [id number] / / [id number] 6cm, Coil Swiftpac Implanted:Qty : 1 on 04/15/2024 by Yann [place] [facility] [place]: Head [employer] 12/16/2028 [id number] / / [id number] Stent Vasc Hep 8mmx7.1r758cg - [id number] Implanted:Qty : 1 on 04/16/2024 by Samson Dennis MD [place] [facility] [place] Left: Iliac [employer] [id number] 12/29/2026 [id number] / [id number] / [id number] documented as of this encounter Procedures Procedure Name Priority Date/Time Associated Diagnosis Comments RADIOLOGY SCANNED RESULT 07/04/2024 documented in this encounter Results * RADIOLOGY SCANNED RESULT (07/04/2024) 07/04/2024 us No Physician Data Unknown DIAGNOSTIC RADIOLOGY S ERVICES Final Result documented in this encounter Advance [...] Discussed due to patient's condition Care Teams Stemmer Machine Relationship Specialty Start Date End Date Bharati Wang MD [address] [place] [address] [place] [address] PCP - General Family Medicine 10/02/21 documented as of this encounter
--- OUTSIDE RECORDS SUMMARY | 2024-07-31 12:10 | External Medical Summary | Summary of Care ---
Author Name Unknown Organization [facility] Address [address] [place] [address] Phone [phone] Care Team Providers Care Security Intelligence Analyst Name Role Phone Bharati Wang MD Primary Care Provide r Reason for Visit * Reason Onset Date Comments Advice 07/08/2024 Encounter Details Date Type Department Care Team (Late st Contact Info) Description 07/08/2024 Telephone Family Medicine [address] [phone] Bharati Wang MD [address] [place] [address] [place] [address] Advice Allergies Active Allergy [...] fracture of humerus 08/07/2019 01/22/2024 Overview (08/10/2019): [facility] Bilateral sciatica 06/01/2019 4 Spasm of [...] 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 Patient states she is wearing a pad. Yesterday she said she was passing dk black clots. Patient is a little lightheaded. Patient directed to go directly to the ER. We will follow up with her after she gets out of the hospital. documented in this encounter Plan of Treatment Upcoming Encounters Date Type Department Care Team (Late st Contact Info) Description 07/14/2024 2:30 PM EST Office Visit Gastroenterology, [facility] [address] [place] [address] Jane Abreu CRNP [address] [place] [address] 08/25/2024 10:00 AM EDT Office Visit Family Medicine [address] [place] [address] Bharati Wang MD [address] [place] [address] [place] [address] 09/10/2024 11:30 AM EDT Office Visit Neurosurgery, [place] [address] [place] [address] Yann Jackson MD [address] [place] [address] 09/18/2024 12:00 PM EDT Appointment Vascular Lab [address] [address] 09/18/2024 12:30 PM EDT Appointment Vascular Lab [facility] [address] [place] [address] 09/18/2024 1:20 PM EDT Office Visit Vascular Surg [facility] [address] [place] [address] Samson Dennis MD [address] [place], [place] [phone] Scheduled Procedures Name Priority Associated Diagnoses Date/Ti me ESOPHAGOGASTRODUODENOSCOPY ( EGD), FLEXIBLE, TRANSORAL, DIAGNOSTIC Recall Contreras esophagus Health Maintenance Due Date Last Done Comments Alpha-1 Antitrypsin 1953 Adult Wellness Visit 2002 DXA Scan 04/06/2018 04/06/2016, 09/2012, 02/08/2011, Additional history exists DISCUSS TOBACCO CESSATION (REFER TO SMARTSET #9762) 08/01/2018 08/01/2017 (Discussed) DTap/Tdap Vaccines (2 - [...] D LEVEL ONCE IN A LIFETIME-USE SMARTSET# 23024 Completed 02/12/2018, 04/25/2015, 09/24/2014, Additional history exists [...] this encounter Medical Devices Implanted Type Area Laboratory Tester Device Identifier Shelf Expiration Date Model / Serial / Lot Coil Target 3d 0nvi7xj - [id number] Implanted:Qty : 1 on 04/15/2024 by Yann [place] MD [place] [facility] [place] Head ANNAMARIA : NEUROVASCULAR [id number] 12/16/2024 [id number] 60 / / [id number] 6cm, Coil Swiftpac Implanted:Qty : 1 on 04/15/2024 by Yann Jackson MD [place] [facility] [place]: Head [employer] 12/16/2028 [id number] / / [id number] 45cm, Coil Swiftpac Implanted:Qty : 1 on 04/15/2024 by Yann Jackson MD [place] [facility] [place]: Head [employer] 12/16/2028 [id number] / / [id number] 60cm, Coil Swiftpac Implanted:Qty : 1 on 04/15/2024 by Yann Jackson MD [place] [facility] [place]: Head [employer] 11/02/2028 [id number] / / [id number] Coil Target 3d 1fen8nk - [id number] Implanted:Qty : 1 on 04/15/2024 by Yann Jackson MD [place] [facility] [place]: Head ANNAMARIA : NEUROVASCULAR [id number] 12/24/2024 [id number] 60 / / [id number] Coil Target 360 Soft 7hcq55gi - [id number] Implanted:Qty : 1 on 04/15/2024 by Yann Jackson MD [place] [facility] [place]: Head ANNAMARIA : NEUROVASCULAR [id number] 06/23/2025 [id number] 00 / / [id number] Coil Target 360 Ultra 8syi56pw - [id number] Implanted:Qty : 1 on 04/15/2024 by Yann Jackson MD [place] [facility] [place]: Head ANNAMARIA : NEUROVASCULAR [id number] 05/04/2026 [id number] 00 / / [id number] Coil Target 360 Ultra 6xss8vc - [id number] Implanted:Qty : 1 on 04/15/2024 by Yann Jackson MD [place] [facility] [place]: Head ANNAMARIA : NEUROVASCULAR [id number] 02/03/2025 [id number] 80 / / [id number] 10cm, Coil Swiftpac Implanted:Qty : 2 on 04/15/2024 by Yann Jackson MD [place] [facility] [place]A: Head [employer] 12/24/2028 [id number] / / [id number] 30cm, Coil Swiftpac Implanted:Qty : 1 on 04/15/2024 by Yann Jackson MD [place] [facility] [place]A: Head [employer] 12/24/2028 [id number] / / [id number] 60cm, Coil Swiftpac Implanted:Qty : 1 on 04/15/2024 by Yann Jackson MD [place] [facility] [place]A: Head [employer] 11/02/2028 [id number] / / [id number] 6cm, Coil Swiftpac Implanted:Qty : 1 on 04/15/2024 by Yann Jackson MD [place] [facility] [place]A: Head [employer] 12/16/2028 [id number] / / [id number] Stent Vasc Hep 8mmx7.8a538em - [id number] Implanted:Qty : 1 on 04/16/2024 by Samson Dennis MD [place] [facility] Left: Iliac [employer] [id number] 12/29/2026 [id number] / [id number] / [id number] documented as of this encounter Advance Directives [...] 04/15/2024 11:04 AM 04/15/2024 6:20 PM This ord er reflects the patients wishes and were consensually agreed upon. Question Answer Comments Discussion of Advance Direct justice occurred with: Not Discussed due to patient's condition Care Teams Security Intelligence Analyst Relationship Specialty Start Date End Date Bharati Wang MD [address] [place] [address] [place] [address] PCP - General Family Medicine 10/02/21 documented as of this encounter
--- OUTSIDE RECORDS SUMMARY | 2024-07-31 12:10 | External Medical Summary | Summary of Care ---
Author Name Unknown Organization [facility] Address [address] [place] [address] Phone [phone] Care Team Providers Care Estate Planning Attorney Name Role Phone Bharati Wang MD Primary Care Provide r Reason for Visit * Reason Onset Date Comments Advice 07/09/2024 Encounter Details Date Type Department Care Team (Late st Contact Info) Description 07/09/2024 Telephone Vascular Surg [facility] [address] [place], [place] [phone] Armen Stone MD [address] [place], [place] [phone] Advice Allergies Active Allergy Reactions Criticality Noted Date Comments Ampicillin 09/23/2003 Hives/trouble breathing Azithromycin 09/24/2003 hives and angioedema Ranitidine 10/29/2002 rash documented as of this encounter (statuses as of 07/09/2024) Medications VITAMIN D 2000 UNITS PO CAPS [...] as of this encounter (statuses as of 07/09/2024) Active Problems Problem Noted Date Diagnosed Date [...] as of this encounter (statuses as of 07/09/2024) Resolved Problems Problem Noted Date Diagnosed Date [...] fracture of humerus 08/07/2019 01/22/2024 Overview (08/10/2019): [facility] Bilateral sciatica 06/01/2019 4 Spasm of [...] as of this encounter (statuses as of 07/09/2024) Immunizations Name Administration Dates Next Due COVID-19 [...] 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 This patient is currently admitted there with GI bleed. Underwent emergent left LE thrombectomy and iliac stent placement in Mar [address] Dennis following a neurosurg procedure. She has been maintained on plavix and eliquissince that time, interrupted once for management of a GI bleed that resolved. Given the new GI bleed, I recommend stopping plavix and Eliquis now in preparation for endoscopy to find the source of the bleed. Once stable from a GI bleed standpoint, would try to restart plavix as soon as safely able to do so. I would not be quick to restart the eliquis. Armen Stone MD Section of Vascular and Endovascular Surgery [place], [place] [phone] documented in this encounter Plan of Treatment Upcoming Encounters Date Type Department Care Team (Late st Contact Info) Description 08/25/2024 10:00 AM EDT Office Visit Family Medicine [address] [phone] Bharati Wang MD [address] [place] [address] [place] [address] 09/10/2024 11:30 AM EDT Office Visit Neurosurgery, [place] [address] [place] [address] Yann Jackson MD [facility] [place] [phone] 09/18/2024 12:00 PM EDT Appointment Vascular Lab [address] [address] 09/18/2024 12:30 PM EDT Appointment Vascular Lab [place] [address] [place] [address] 09/18/2024 1:20 PM EDT Office Visit Vascular Surg [facility] [address] [place] [address] Samson Dennis MD [address] [place] [address] Scheduled Procedures Name Priority Associated Diagnoses Date/Ti [...] D LEVEL ONCE IN A LIFETIME-USE SMARTSET# 58132 Completed 02/12/2018, 04/25/2015, 09/24/2014, Additional history exists [...] this encounter Medical Devices Implanted Type Area Bakery Associate Device Identifier Shelf Expiration Date Model / Serial / Lot Coil Target 3d [id number] - [id number] Implanted:Qty : 1 on 04/15/2024 by Yann Jackson MD [place] [facility] [place]A: Head ANNAMARIA : NEUROVASCULAR [id number] 12/16/2024 [id number] 60 / / [id number] 6cm, Coil Swiftpac Implanted:Qty : 1 on 04/15/2024 by Yann Jackson MD at [place] [facility] [place] N/A: Head [employer] 12/16/2028 [id number] / / [id number] 45cm, Coil Swiftpac Implanted:Qty : 1 on 04/15/2024 by Yann Jackson MD at [place] [facility] [place] N/A: Head [employer] 12/16/2028 [id number] / / [id number] 60cm, Coil Swiftpac Implanted:Qty : 1 on 04/15/2024 by Yann Jackson MD at [place] [facility] [place] N/A: Head [employer] 11/02/2028 [id number] / / [id number] Coil Target 3d 0bip7tq - [id number] Implanted:Qty : 1 on 04/15/2024 by Yann Jackson MD at [place] [facility] [place]/A: Head ANNAMARIA : NEUROVASCULAR [id number] 12/24/2024 [id number] 60 / / [id number] Coil Target 360 Soft 6unw95rk - [id number] Implanted:Qty : 1 on 04/15/2024 by Yann Jackson MD at [place] [facility] [place]/A: Head ANNAMARIA : NEUROVASCULAR [id number] 06/23/2025 [id number] 00 / / [id number] Coil Target 360 Ultra 5hgn01po - [id number] Implanted:Qty : 1 on 04/15/2024 by Yann Jackson MD at [place] [facility] [place]/A: Head ANNAMARIA : NEUROVASCULAR [id number] 05/04/2026 [id number] 00 / / [id number] Coil Target 360 Ultra 3aix0yc - [id number] Implanted:Qty : 1 on 04/15/2024 by Yann Jackson MD at [place] [facility] [place] N/A: Head ANNAMARIA : NEUROVASCULAR [id number] 02/03/2025 [id number] 80 / / [id number] 10cm, Coil Swiftpac Implanted:Qty : 2 on 04/15/2024 by Yann Jackson MD at [place] [facility] [place] N/A: Head [employer] 12/24/2028 [id number] / / [id number] 30cm, Coil Swiftpac Implanted:Qty : 1 on 04/15/2024 by Yann Jackson MD at [place] [facility] N/A: Head [employer] 12/24/2028 [id number] / / [id number] 60cm, Coil Swiftpac Implanted:Qty : 1 on 04/15/2024 by Yann Jackson MD at [place] [facility] [place] N/A: Head [employer] 11/02/2028 [id number] / / [id number] 6cm, Coil Swiftpac Implanted:Qty : 1 on 04/15/2024 by Yann Jackson MD at [place] [facility] N/A: Head [employer] 12/16/2028 [id number] / / [id number] Stent Vasc Hep 8mmx7.1j777lr - [id number] Implanted:Qty : 1 on 04/16/2024 by Samson Dennis MD at [place] [facility] Left: Iliac [employer] [id number] 12/29/2026 [id number] 2A / [id number] / [id number] documented as of this encounter Advance Directives [...] Discussed due to patient's condition Care Teams Estate Planning Attorney Relationship Specialty Start Date End Date Bharati Wang MD [address] [place] [address] [place] [phone] PCP - General Family Medicine 10/02/21 documented as of this encounter
--- OUTSIDE RECORDS SUMMARY | 2024-07-31 12:10 | External Medical Summary ---
Author Name Unknown Address Unknown Organization K01:LAB[facility]ATORY [facility] - [address] [place] [address] Laboratory Report Ordering Provider Test Date Status DEE ASHTON 07/14/2024 13:58:17 Final Observation Date Value Abnormality Reference (Units ) Status MYCODE SPECIMEN-SST 07/14/2024 13:58:17 Freezing of extracted DNA, whole blood and/or serum. Final Performing Location LABORATORY [facility] - [address] [place] [address]
--- OUTSIDE RECORDS SUMMARY | 2024-07-31 12:10 | External Medical Summary | Summary of Care ---
Author Name Unknown Organization [facility] Address [address] [place] [address] Phone [phone] Care Team Providers Care Auto Body Detailer Name Role Phone Bharati Wang MD Primary Care Provide r Encounter Details Date Type Department Care Team (Late st Contact Info) Description 07/08/2024 Orders Only Family Medicine [address] [phone] Bharati Wang MD [address] [place] [address] [place] [address] Allergies Active Allergy Reactions Criticality Noted Date [...] fracture of humerus 08/07/2019 01/22/2024 Overview (08/10/2019): [facility] Bilateral sciatica 06/01/2019 4 Spasm of [...] Job 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 Not on file Not on file documented as of this encounter Plan of Treatment Upcoming Encounters Date Type Department Care Team (Late st Contact Info) Description 07/14/2024 2:30 PM EST Office Visit Gastroenterology, [facility] [address] [place] [address] Jane Abreu CRNP [address] [place] [address] 08/25/2024 10:00 AM EDT Office Visit Family Medicine [address] [place] [phone] Bharati Wang MD [address] [place] [address] [place] [address] 09/10/2024 11:30 AM EDT Office Visit Neurosurgery, [place] [phone] Yann Jackson MD [facility][note 3] [place] [address] 09/18/2024 12:00 PM EDT Appointment Vascular Lab [address] [address] 09/18/2024 12:30 PM EDT Appointment Vascular Lab [address] [address] 09/18/2024 1:20 PM EDT Office Visit Vascular Surg [address] [phone] Samson Dennis MD [address] [place] [address] [phone] Scheduled Procedures Name Priority Associated Diagnoses Date/Ti [...] D LEVEL ONCE IN A LIFETIME-USE SMARTSET# 82674 Completed 02/12/2018, 04/25/2015, 09/24/2014, Additional history exists [...] this encounter Medical Devices Implanted Type Area Sign Maker Device Identifier Shelf Expiration Date Model / Serial / Lot Coil Target 3d [id number] - [id number] Implanted:Qty : 1 on 04/15/2024 by Yann Jackson MD [place] [facility] [place]: Head ANNAMARIA : NEUROVASCULAR [id number] 12/16/2024 [id number] / / [id number] 6cm, Coil Swiftpac Implanted:Qty : 1 on 04/15/2024 by Yann Jackson MD [place] [facility] [place]: Head [employer] 12/16/2028 [id number] / / [id number] 45cm, Coil Swiftpac Implanted:Qty : 1 on 04/15/2024 by Yann Jackson MD at [place] [facility] [place]/A: Head [employer] 12/16/2028 [id number] / / [id number] 60cm, Coil Swiftpac Implanted:Qty : 1 on 04/15/2024 by Yann Jackson MD at [place] [facility] [place]/A: Head [employer] 11/02/2028 [id number] / / [id number] Coil Target 3d [id number] - [id number] Implanted:Qty : 1 on 04/15/2024 by Yann Jackson MD at [place] [facility] [place]/A: Head ANNAMARIA : NEUROVASCULAR [id number] 12/24/2024 [id number] 60 / / [id number] Coil Target 360 Soft [id number] - [id number] Implanted:Qty : 1 on 04/15/2024 by Yann Jackson MD at [place] [facility] [place]A: Head ANNAMARIA : NEUROVASCULAR [id number] 06/23/2025 [id number] / / [id number] Coil Target 360 Ultra [id number] - [id number] Implanted:Qty : 1 on 04/15/2024 by Yann Jackson MD at [place] [facility] [place]A: Head ANNAMARIA : NEUROVASCULAR [id number] 05/04/2026 [id number] / / [id number] Coil Target 360 Ultra 8wkx5zp - [id number] Implanted:Qty : 1 on 04/15/2024 by Yann Jackson MD at [place] [facility] [place]/A: Head ANNAMARIA : NEUROVASCULAR [id number] 02/03/2025 [id number] 80 / / [id number] 10cm, Coil Swiftpac Implanted:Qty : 2 on 04/15/2024 by Yann Jackson MD at [place] [facility] [place]/A: Head [employer] 12/24/2028 [id number] / / [id number] 30cm, Coil Swiftpac Implanted:Qty : 1 on 04/15/2024 by Yann Jackson MD at [place] [facility] [place]/A: Head [employer] 12/24/2028 [id number] / / [id number] 60cm, Coil Swiftpac Implanted:Qty : 1 on 04/15/2024 by Yann Jackson MD at [place] [facility] N/A: Head [employer] 11/02/2028 [id number] / / [id number] 6cm, Coil Swiftpac Implanted:Qty : 1 on 04/15/2024 by Yann Jackson MD at [place] [facility] N/A: Head [employer] 12/16/2028 [id number] / / [id number] Stent Vasc Hep 8mmx7.4t664we - [id number] Implanted:Qty : 1 on 04/16/2024 by Samson Dennis MD at [place] [facility] Left: Iliac [employer] [id number] 12/29/2026 [id number] / [id number] / [id number] documented as of this encounter Procedures Procedure Name Priority Date/Time Associated Diagnosis Comments CHEMISTRY-OUTSIDE Routine 07/05/2024 documented in this encounter Results * (ABNORMAL) CHEMISTRY-OUTSIDE (07/05/2024) Not all results display below - see scan for full detail OUTSIDE LAB (SEE SCANNED REPORT) Comment:SCAN INCLUDES: CBC, CMP, PHOS, MG CREATININE 1.06 0.6 - 1.2 MG/DL OUTSIDE LAB (SEE SCANNED REPORT) EGFR 50.84 ML/MIN OUTSIDE LA B (SEE SCANNED REPORT) POTASSIUM 4.5 3.5 - 5.1 MMOL/L OUTSIDE LAB (SEE SCANNED REPORT) GLUCOSE 97 70 - 99 MG/DL OUTSIDE LAB (SEE SCANNED REPORT) HOURS FASTING OUTSID E LAB (SEE SCANNED REPORT) TRIGLYCERIDES-OUT SIDE LAB OUTSIDE LAB (SEE SCANNED REPORT) CHOLESTEROL-OUTSI DE LAB OUTSIDE LAB (SEE SCANNED REPORT) HDL-OUTSIDE LAB OUTS TRAMAINE LAB (SEE SCANNED REPORT) CHOL/HDL RATIO-OUTSIDE LAB OUTSIDE LA B (SEE SCANNED REPORT) LDL (CALCULATED)-OUTS TRAMAINE LAB OUTSIDE LAB (SEE SCANNED REPORT) LDL (DIRECT MEASURE)-OUTSIDE LAB OUTSIDE LAB (SEE SCANNED REPORT) HEMOGLOBIN, O1I-MYTYHII LAB OUTSIDE LAB (SEE SCANNED REPORT) PHOSPHORUS-OUTSID E LAB 3.9 2.5 - 4.9 MG/DL OUTSIDE LAB (SEE SCANNED REPORT) PTH-OUTSIDE LAB OUTS TRAMAINE LAB (SEE SCANNED REPORT) MICROALBUMIN RATIO-OUTSIDE LAB OUTSIDE LA B (SEE SCANNED REPORT) PROTEIN, UA-OUTSIDE LAB OUTSIDE LAB (SEE SCANNED REPORT) HGB 9.8(A) 12.0 - 16.0 G/DL OUTSIDE LAB (SEE SCANNED REPORT) 07/05/2024 Darcy Sanchez MD LABORATORY Final Res ult OUTSIDE LAB (SEE [...] Discussed due to patient's condition Care Teams Auto Body Detailer Relationship Specialty Start Date End Date Bharati Wang MD [address] [place] [address] [place] [address] PCP - General Family Medicine 10/02/21 documented as of this encounter
--- OUTSIDE RECORDS SUMMARY | 2024-07-31 12:10 | External Medical Summary | Summary of Care ---
Author Name Unknown Organization [facility] Address [address] [place] [address] Phone [phone] Care Team Providers Care Portfolio Consultant Name Role Phone Bharati Wang MD Primary Care Provide r Encounter Details Date Type Department Care Team (Late st Contact Info) Description 07/13/2024 Population Health External Data Unspecified Department Allergies Active Allergy Reactions Criticality Noted Date Comments Ampicillin 09/23/2003 Hives/trouble breathing Azithromycin 09/24/2003 hives and angioedema Ranitidine 10/29/2002 rash documented as of this encounter (statuses as of 07/13/2024) Medications VITAMIN D 2000 UNITS PO CAPS [...] as of this encounter (statuses as of 07/13/2024) Active Problems Problem Noted Date Diagnosed Date [...] as of this encounter (statuses as of 07/13/2024) Resolved Problems Problem Noted Date Diagnosed Date [...] fracture of humerus 08/07/2019 01/22/2024 Overview (08/10/2019): [facility] Bilateral sciatica 06/01/2019 Spasm of muscle [...] as of this encounter (statuses as of 07/13/2024) Immunizations Name Administration Dates Next Due COVID-19 [...] Start Date Job End Date 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 Not on file Not on file Not on file documented as of this encounter Plan of Treatment Upcoming Encounters Date Type Department Care Team (Late st Contact Info) Description 08/25/2024 10:00 AM EDT Office Visit Family Medicine [address] [phone] Bharati Wang MD [address] [place] [address] [place] [address] 09/10/2024 11:30 AM EDT Office Visit Neurosurgery, [address] [address] aYnn Jackson MD [address] [place] [phone] 09/18/2024 12:00 PM EDT Appointment Vascular Lab [place] [address] [place] [address] 09/18/2024 12:30 PM EDT Appointment [facility]ascular Lab [facility] [address] [address] 09/18/2024 1:20 PM EDT Office Visit Vascular Surg [place] [address] [place] [address] Samson Dennis MD [address] [place] [address] Scheduled Procedures Name Priority Associated Diagnoses Date/Ti me ESOPHAGOGASTRODUODENOSCOPY ( EGD), FLEXIBLE, TRANSORAL, DIAGNOSTIC Recall Contreras esophagus Health Maintenance Due Date Last Done Comments Alpha-1 Antitrypsin 1953 Adult Wellness Visit 2002 DXA Scan 04/06/2018 04/06/2016, 09/2012, 02/08/2011, Additional history exists DISCUSS TOBACCO CESSATION (REFER TO SMARTSET #8808) 08/01/2018 08/01/2017 (Discussed) DTap/Tdap Vaccines (2 - [...] D LEVEL ONCE IN A LIFETIME-USE SMARTSET# 36085 Completed 02/12/2018, 04/25/2015, 09/24/2014, Additional history exists [...] this encounter Medical Devices Implanted Type Area Public Relations Analyst Device Identifier Shelf Expiration Date Model / Serial / Lot Coil Target 3d [id number] - [id number] Implanted:Qty : 1 on 04/15/2024 by Yann Jackson MD at OR [facility] [place] N/A: Head ANNAMARIA : NEUROVASCULAR [id number] 12/16/2024 [id number] 60 / / [id number] 6cm, Coil Swiftpac Implanted:Qty : 1 on 04/15/2024 by Yann Jackson MD at OR [facility] [place] N/A: Head [employer] 12/16/2028 [id number] / / [id number] 45cm, Coil Swiftpac Implanted:Qty : 1 on 04/15/2024 by Yann Jackson MD at OR [facility] [place] N/A: Head [employer] 12/16/2028 [id number] / / [id number] 60cm, Coil Swiftpac Implanted:Qty : 1 on 04/15/2024 by Yann Jackson MD at OR [facility] [place] N/A: Head [employer] 11/02/2028 [id number] / / [id number] Coil Target 3d [id number] - [id number] Implanted:Qty : 1 on 04/15/2024 by Yann Jackson MD at OR [facility] [place] N/A: Head ANNAMARIA : NEUROVASCULAR [id number] 12/24/2024 [id number] 60 / / [id number] Coil Target 360 Soft [id number] - [id number] Implanted:Qty : 1 on 04/15/2024 by Yann Jackson MD at OR [facility] [place] N/A: Head ANNAMARIA : NEUROVASCULAR [id number] 06/23/2025 [id number] / / [id number] Coil Target 360 Ultra [id number] - [id number] Implanted:Qty : 1 on 04/15/2024 by Yann Jackson MD at OR [facility] [place] N/A: Head ANNAMARIA : NEUROVASCULAR [id number] 05/04/2026 [id number] 00 / / [id number] Coil Target 360 Ultra [id number] - [id number] Implanted:Qty : 1 on 04/15/2024 by Yann Jackson MD at OR [facility] [place] N/A: Head ANNAMARIA : NEUROVASCULAR [id number] 02/03/2025 [id number] 80 / / [id number] 10cm, Coil Swiftpac Implanted:Qty : 2 on 04/15/2024 by Yann Jackson MD at OR [facility] [place] N/A: Head [employer] 12/24/2028 [id number] / / [id number] 30cm, Coil Swiftpac Implanted:Qty : 1 on 04/15/2024 by Yann Jackson MD at OR [facility] [place] N/A: Head [employer] 12/24/2028 [id number] / / [id number] 60cm, Coil Swiftpac Implanted:Qty : 1 on 04/15/2024 by Yann Jackson MD at OR [facility] [place] N/A: Head [employer] 11/02/2028 [id number] / / [id number] 6cm, Coil Swiftpac Implanted:Qty : 1 on 04/15/2024 by Yann Jackson MD at OR [facility] [place] N/A: Head [employer] 12/16/2028 [id number] / / [id number] Stent Vasc Hep 8mmx7.5r059dh - [id number] Implanted:Qty : 1 on 04/16/2024 by Samson Dennis MD at [facility] Left: Iliac [employer] [id number] 12/29/2026 [id number] / [id number] / [id number] documented as of this encounter Advance Directives [...] Discussed due to patient's condition Care Teams Portfolio Consultant Relationship Specialty Start Date End Date Bharati Wang MD [address] [place] [address] [place] [address] PCP - General Family Medicine 10/02/21 documented as of this encounter
[2024-07-31 17:34] LABS: Hematocrit (blood only) 27.3 % (37.0-47.0); Hemoglobin 8.3 g/dl (12.0-16.0)
[2024-08-01 07:41] LABS: Hemoglobin 7.4 g/dl (12.0-16.0); Mean Corpuscular Hemoglobin 26.3 pg (25.0-34.0); Mean Corpuscular Hgb Conc 29.6 g/dL (32.0-36.0); Mean Platelet Volume 10.2 fL (9.4-12.4); Platelet Count 135 K/uL (130-400); RDW Coefficient of Variation 18.7 % (11.5-14.5); RDW Standard Deviation 57.1 fL (36.4-46.3); Red Blood Count 2.81 M/uL (4.20-5.40); White Blood Count 3.05 K/ul (4.8-10.8)
[2024-08-01 07:59] LABS: Albumin Globulin Ratio 1.6 (0.9-2); Albumin Level 3.5 gm/dl (3.4-5.0); BUN Creatinine Ratio 11.6 (10-20); Bilirubin,Total 0.6 mg/dl (0.2-1.0); Calcium 8.4 mg/dl (8.6-10.3); Creatinine Clr Calc Pharmacy 45.4 ml/min; Globulin 2.2 gm/dl (2.5-4.0); Magnesium 1.9 mg/dl (1.7-2.4); Phosphorus 3.7 mg/dl (2.5-4.9); Potassium 3.9 mmol/L (3.5-5.1); Total Protein 5.7 gm/dl (6.0-8.3)
[2024-08-01 08:11] LABS: Basophils # (auto) 0.02 K/uL (0.00-0.20); Basophils % (auto) 0.7 %; Eosinophils # (auto) 0.08 K/uL (0.00-0.50); Eosinophils % (auto) 2.6 %; Immature Granulocytes # (auto) 0.01 K/uL (0.01-0.20); Immature Granulocytes % (auto) 0.3 %; Lymphocytes # (auto) 0.81 K/uL (1.20-3.40); Lymphocytes % (auto) 26.6 %; Monocytes # (auto) 0.35 K/uL (0.11-0.59); Monocytes % (auto) 11.5 %; Neutrophils # (auto) 1.78 K/uL (1.40-6.50); Neutrophils % (auto) 58.3 %; Ovalocytes 1+; Polychromasia 1+
[2024-08-01 12:04] LABS: Hematocrit (blood only) 27.3 % (37.0-47.0); Hemoglobin 8.2 g/dl (12.0-16.0)
--- NOTE | 2024-08-01 12:06 | Hospitalist Progress Note ---
Date of Service August 01, 2024 Assessment & Plan (1) Melena: Plan: 88-year-old female with history significant for coil embolization [place] carotid carvenous [place] [facility] [place] by acute lower ext ischemia requiring abdominal aortogram, LLE angiography and open left iliac catheter thromboembolectomy via groin incision, left ext iliac stent grafting of dissection flap on 04/16/24 and has been on plavix and eliquis; recently hospitalized here 07/03/24-07/05/24 and 07/08- for GI bleed. Recurrent GI bleed, Melena Acute on Chronic Anemia Etiology unclear During last month's admission, EGD, colonoscopy, GI bleed nuclear scan unrevealing. "Possible source of bleeding may be jejunum or proximal ileum not visualized endoscopy" CTA Abdomen and pelvis: No active bleeding noted Hemoglobin 7.4, s/p transfusion of 1U pRBCs Protonix drip IV fluids Holding Plavix Anemia panel unremarkable GI consult, appreciate recs Continue to monitor 08/01/24- Case discussed with Dr Rajput, pt currently hemodynamically stable so will see her in the AM. FOBT positive, c diff negative. H/H repeat of 8.2 CKD stage III Renal function stable Chronic medical conditions: Hypertension- Hold amlodipine and lisinopril in light of GI bleed, to prevent possible hypotension Dyslipidemia- Hold statin COPD Peripheral arterial disease Diet: full liquids at this time DVT prophylaxis: Lovenox/heparin CI with GI bleed Dispo: home once medically stable Admission and Anticipated Discharge Date Admission Date: July 30, 2024 Subjective pt was seen laying in bed. Notes that she is now incontinent of stool Stool is now brown called and updated Review of Systems Review of Systems: All systems reviewed & are unremarkable except as noted in Subjective Physical Exam Physical Exam: General: Alert, oriented. No acute distress Psych: Appropriate mood and affect HEENT: NC/AT CV: RRR Resp: Breath sounds clear bilaterally, no increased effort of breathing Abdomen: Soft, nontender Extremities: No edema in lower extremities bilaterally. Results & Data Results & Data Vital Signs (Past 12 Hours) Vital Signs Temp Pulse Resp BP BP Pulse Ox O2 Del Method 08/01/24 07:38 36.3 C L 64 18 121/66 95 Room Air 08/01/24 02:51 36.5 C 68 18 144/68 H 95 Room Air
[2024-08-02 06:19] LABS: Basophils # (auto) 0.02 K/uL (0.00-0.20); Basophils % (auto) 0.6 %; Eosinophils % (auto) 2.9 %; Hematocrit (blood only) 25.1 % (37.0-47.0); Hemoglobin 7.5 g/dl (12.0-16.0); Immature Granulocytes # (auto) 0.01 K/uL (0.01-0.20); Immature Granulocytes % (auto) 0.3 %; Lymphocytes # (auto) 0.95 K/uL (1.20-3.40); Lymphocytes % (auto) 27.2 %; Mean Corpuscular Hemoglobin 26.9 pg (25.0-34.0); Mean Corpuscular Hgb Conc 29.9 g/dL (32.0-36.0); Mean Platelet Volume 10.4 fL (9.4-12.4); Monocytes # (auto) 0.44 K/uL (0.11-0.59); Monocytes % (auto) 12.6 %; Neutrophils # (auto) 1.97 K/uL (1.40-6.50); Neutrophils % (auto) 56.4 %; Platelet Count 153 K/uL (130-400); RDW Coefficient of Variation 19.2 % (11.5-14.5); RDW Standard Deviation 57.7 fL (36.4-46.3); Red Blood Count 2.79 M/uL (4.20-5.40); White Blood Count 3.49 K/ul (4.8-10.8)
[2024-08-02 06:33] LABS: Albumin Globulin Ratio 1.6 (0.9-2); Albumin Level 3.5 gm/dl (3.4-5.0); BUN Creatinine Ratio 9.6 (10-20); Bilirubin,Total 0.7 mg/dl (0.2-1.0); Calcium 8.9 mg/dl (8.6-10.3); Creatinine Clr Calc Pharmacy 46.8 ml/min; Globulin 2.2 gm/dl (2.5-4.0); Magnesium 1.9 mg/dl (1.7-2.4); Phosphorus 4.1 mg/dl (2.5-4.9); Potassium 3.7 mmol/L (3.5-5.1); Total Protein 5.7 gm/dl (6.0-8.3)
[2024-08-02 06:45] LABS: Polychromasia 1+
--- NOTE | 2024-08-02 08:48 | Gastroenterology Progress Note ---
Date of Service August 02, 2024 Assessment & Plan (1) Melena: Plan: Hemoglobin continues to drift lower patient continues to have melena although hemodynamically stable. Recent endoscopy and colonoscopy did not reveal a source of bleeding. Suspect source of bleeding is in the small bowel. She is awaiting the scheduling of her capsule endoscopy as an outpatient. However in light of the recent admission and low hemoglobin associated with melena we will proceed with push enteroscopy tomorrow to exclude a possible proximal small bowel bleeding source. Admission and Anticipated Discharge Date Admission Date: July 30, 2024 Subjective To have black bowel movements. Denies abdominal pain shortness of breath or chest pain. Physical Exam Physical Exam: No acute distress Respiratory rate regular Cardiac rhythm regular Abdomen soft nontender Results & Data Results & Data Vital Signs (Past 12 Hours) Vital Signs Temp Pulse Pulse Resp BP BP Pulse Ox 08/02/24 07:03 36.5 C 61 18 118/56 L 95 08/02/24 05:31 54 L 08/02/24 03:34 36.5 C 61 16 124/63 93 08/01/24 22:33 36.5 C 64 17 152/70 H 96 08/01/24 21:50 58 L 08/01/24 20:47 36.6 C 62 16 130/70 97 O2 Del Method 08/02/24 07:03 Room Air 08/02/24 05:31 08/02/24 03:34 Room Air 08/01/24 22:33 Room Air 08/01/24 21:50 08/01/24 20:47 Room Air Laboratory Results Laboratory Results - last 48 hr 07/31/24 08/01/24 08/01/24 16:56 06:55 11:55 WBC 3.05 L RBC 2.81 L Hgb 8.3 L 7.4 L 8.2 L Hct 27.3 L 25.0 L 27.3 L MCV 89.0 MCH 26.3 MCHC 29.6 L RDW Std Deviation 57.1 H RDW Coeff of Devi 18.7 H Plt Count 135 MPV 10.2 Immature Gran % (Auto) 0.3 Neut % (Auto) 58.3 Lymph % (Auto) 26.6 [place] % (Auto) 11.5 Eos % (Auto) 2.6 Baso % (Auto) 0.7 Neut # (Auto) 1.78 Lymph # (Auto) 0.81 L [place] # (Auto) 0.35 Eos # (Auto) 0.08 Baso # (Auto) 0.02 Immature Gran # (Auto) 0.01 Polychromasia 1+ Ovalocytes 1+ Sodium 142 Potassium 3.9 Chloride 114 H Carbon Dioxide 26 Anion Gap 2 L BUN 10 Creatinine 0.86 Est Cr Clr Drug Dosing 45.4 eGFR 65.34 BUN/Creatinine Ratio 11.6 Glucose 93 Calcium 8.4 L Phosphorus 3.7 Magnesium 1.9 Total Bilirubin 0.6 AST 11 L ALT 7 Alkaline Phosphatase 54 Total Protein 5.7 L Albumin 3.5 Globulin 2.2 L Albumin/Globulin Ratio 1.6 Stool Occult Bld Scrn POC Stool Occult Blood Stl C. diff Tox B Gene 08/01/24 08/01/24 08/02/24 12:00 Unknown 05:45 WBC 3.49 L RBC 2.79 L Hgb 7.5 L Hct 25.1 L MCV 90.0 MCH 26.9 MCHC 29.9 L RDW Std Deviation 57.7 H RDW Coeff of Devi 19.2 H Plt Count 153 MPV 10.4 Immature Gran % (Auto) 0.3 Neut % (Auto) 56.4 Lymph % (Auto) 27.2 [place] % (Auto) 12.6 Eos % (Auto) 2.9 Baso % (Auto) 0.6 Neut # (Auto) 1.97 Lymph # (Auto) 0.95 L [place] # (Auto) 0.44 Eos # (Auto) 0.10 Baso # (Auto) 0.02 Immature Gran # (Auto) 0.01 Polychromasia 1+ Ovalocytes Sodium 142 Potassium 3.7 Chloride 110 H Carbon Dioxide 27 Anion Gap 5 BUN 8 Creatinine 0.83 Est Cr Clr Drug Dosing 46.8 eGFR 68.19 BUN/Creatinine Ratio 9.6 L Glucose 89 Calcium 8.9 Phosphorus 4.1 Magnesium 1.9 Total Bilirubin 0.7 AST 12 L ALT 9 Alkaline Phosphatase 53 Total Protein 5.7 L Albumin 3.5 Globulin 2.2 L Albumin/Globulin Ratio 1.6 Stool Occult Bld Scrn Positive A POC Stool Occult Blood Cancelled Stl C. diff Tox B Gene Negative Cdiff Gene PG Care Time/CCT Total # of Minutes Spent Total Time Spent with Patient: Total time spent is greater than 50% in coordination of care (as documented) at patient's floor/unit and/or counseling patient: Coding Level of Care Code 62269 SUB INP/OBS CARE 235MIN Diagnoses Melena K92.1
--- NOTE | 2024-08-02 09:51 | Hospitalist Progress Note ---
Date of Service August 02, 2024 Assessment & Plan (1) Melena: Plan: 88-year-old female with history significant [place] coil [place] of [place] [facility] [place] by acute lower ext ischemia requiring abdominal aortogram, LLE angiography and open left iliac catheter thromboembolectomy via groin incision, left ext iliac stent grafting of dissection flap on 04/16/24 and has been on plavix and eliquis; recently hospitalized here 07/03/24-07/05/24 and 07/08- for GI bleed. Recurrent GI bleed, Melena Acute on Chronic Anemia Etiology unclear During last month's admission, EGD, colonoscopy, GI bleed nuclear scan unrevealing. "Possible source of bleeding may be jejunum or proximal ileum not visualized endoscopy" CTA Abdomen and pelvis: No active bleeding noted Hemoglobin 7.4, s/p transfusion of 1U pRBCs Protonix drip IV fluids Holding Plavix Anemia panel unremarkable GI consult, appreciate recs Continue to monitor 08/01/24- Case discussed with Dr Rajput, pt currently hemodynamically stable so will see her in the AM. FOBT positive, c diff negative. H/H repeat of 8.2 08/02/24- hgb drop to 7.5 with repeat of 8.3. Per GI, push enteroscopy tomorrow. NPO after midnight. CKD stage III Renal function stable Chronic medical conditions: Hypertension- Hold amlodipine and lisinopril in light of GI bleed, to prevent possible hypotension Dyslipidemia- Hold statin COPD Peripheral arterial disease Diet: full liquids at this time DVT prophylaxis: Lovenox/heparin CI with GI bleed Dispo: home once medically stable Admission and Anticipated Discharge Date Admission Date: July 30, 2024 Subjective pt was seen laying in bed Still episodes of diarrhea Otherwise denies acute concerns Review of Systems Review of Systems: All systems reviewed & are unremarkable except as noted in Subjective Physical Exam Physical Exam: General: Alert, oriented. No acute distress Psych: Appropriate mood and affect HEENT: NC/AT CV: RRR Resp: Breath sounds clear bilaterally, no increased effort of breathing Abdomen: Soft, nontender Extremities: No edema in lower extremities bilaterally. Results & Data Results & Data Vital Signs (Past 12 Hours) Vital Signs Temp Pulse Pulse Resp BP BP Pulse Ox 08/02/24 07:03 36.5 C 61 18 118/56 L 95 08/02/24 05:31 54 L 08/02/24 03:34 36.5 C 61 16 124/63 93 08/01/24 22:33 36.5 C 64 17 152/70 H 96 08/01/24 21:50 58 L O2 Del Method 08/02/24 07:03 Room Air 08/02/24 05:31 08/02/24 03:34 Room Air 08/01/24 22:33 Room Air 08/01/24 21:50
[2024-08-02 11:16] LABS: Adenovirus F 40/41 PCR Not Detected (NotDetected); Astrovirus PCR Not Detected (NotDetected); Campylobacter PCR Not Detected (NotDetected); Cryptosporidium PCR Not Detected (NotDetected); Cyclospora cayetanensis PCR Not Detected (NotDetected); Entamoeba histolytica PCR Not Detected (NotDetected); Enteroaggregative E.coli(EAEC) Not Detected (NotDetected); Enteropathogenic E.coli (EPEC) Not Detected (NotDetected); Enterotoxigenic E.coli (ETEC) Not Detected (NotDetected); Giardia lamblia PCR Not Detected (NotDetected); Norovirus GI/GII PCR Not Detected (NotDetected); Plesiomonas shigelloides PCR Not Detected (NotDetected); Rotavirus A PCR Not Detected (NotDetected); Salmonella PCR Not Detected (NotDetected); Sapovirus PCR Not Detected (NotDetected); Shiga-like Toxin E.coli (STEC) Not Detected (NotDetected); Shigella/Enteroinvasive E.coli Not Detected (NotDetected); Vibrio cholerae PCR Not Detected (NotDetected); Vibrio species PCR Not Detected (NotDetected); Yersinia enterocolitica PCR Not Detected (NotDetected)
[2024-08-02] MEDS: LOPERAMIDE HCL 2 MG CAP PO PRN (12:11)
[2024-08-02 13:04] LABS: Hematocrit (blood only) 27.7 % (37.0-47.0); Hemoglobin 8.3 g/dl (12.0-16.0)
[2024-08-02] MEDS ORDERED: ACETAMINOPHEN 500 MG TAB PO PRN (14:37)
[2024-08-02] MEDS ORDERED: ONDANSETRON INJ 2 MG/ML 2 ML VIAL IV PRN (14:38)
[2024-08-03 07:03] LABS: Basophils # (auto) 0.02 K/uL (0.00-0.20); Basophils % (auto) 0.6 %; Eosinophils # (auto) 0.11 K/uL (0.00-0.50); Eosinophils % (auto) 3.1 %; Hematocrit (blood only) 26.3 % (37.0-47.0); Hemoglobin 7.8 g/dl (12.0-16.0); Immature Granulocytes # (auto) 0.02 K/uL (0.01-0.20); Immature Granulocytes % (auto) 0.6 %; Lymphocytes # (auto) 0.98 K/uL (1.20-3.40); Lymphocytes % (auto) 27.5 %; Mean Corpuscular Hemoglobin 26.8 pg (25.0-34.0); Mean Corpuscular Hgb Conc 29.7 g/dL (32.0-36.0); Mean Corpuscular Volume 90.4 fL (80.0-100.0); Monocytes # (auto) 0.39 K/uL (0.11-0.59); Neutrophils # (auto) 2.04 K/uL (1.40-6.50); Neutrophils % (auto) 57.2 %; Platelet Count 154 K/uL (130-400); RDW Coefficient of Variation 19.7 % (11.5-14.5); Red Blood Count 2.91 M/uL (4.20-5.40); White Blood Count 3.56 K/ul (4.8-10.8)
[2024-08-03 07:22] LABS: ALC (manual) 0.85 K/uL (1.2-3.4); ANC (manual) 2.39 K/uL (1.4-6.5); Eosinophils # (manual) 0.11 K/uL (0-0.50); Eosinophils % (manual) 3 %; Lymphocytes # (manual) 0.85 K/uL (1.2-3.4); Lymphocytes % (manual) 24 %; Monocytes # (manual) 0.21 K/uL (0.11-0.59); Monocytes % (manual) 6 %; Neutrophils # (manual) 2.39 K/uL (1.40-6.50); Neutrophils % (manual) 67 %; Ovalocytes 1+; Polychromasia 1+
[2024-08-03 07:49] LABS: Albumin Globulin Ratio 1.6 (0.9-2); Albumin Level 3.6 gm/dl (3.4-5.0); BUN Creatinine Ratio 8.9 (10-20); Bilirubin,Total 0.6 mg/dl (0.2-1.0); Creatinine Clr Calc Pharmacy 39.7 ml/min; Globulin 2.2 gm/dl (2.5-4.0); Magnesium 1.9 mg/dl (1.7-2.4); Phosphorus 4.1 mg/dl (2.5-4.9); Total Protein 5.8 gm/dl (6.0-8.3)
--- NOTE | 2024-08-03 09:41 | History & Physical Bridge Note ---
Date of Service August 03, 2024 History & Physical Bridge Note I have examined the patient, reviewed the History & Physical and in the interval since the performance of the History & Physical I have noted the following changes of clinical significance: no changes noted. her hgb fell from 8.3 to 7.8. no dark stools since yesterday per patient. rest of GI ros are unremarkable. She is planned for a push enteroscopy today to further evaluate melena. Supervising Physician Co-Signing Physician Notes I personally saw and examined the patient. I have reviewed the chart and agree with the documentation provided by the CHARTER COACH DRIVER including discussion about the assessment, treatment and plan. Briefly, push enteroscopy to evaluate melena and iron deficiency anemia. Stable.
[2024-08-03] MEDS: CYANOCOBALAMIN (B-12) 500 MCG TABLET PO SCH (11:05)
[2024-08-03] MEDS: CHOLECALCIFEROL 25 MCG (1000 UNITS) TAB PO SCH (11:05)
--- NOTE | 2024-08-03 12:59 | Anesthesiology Consultation ---
Date of Service August 03, 2024 Assessment & Plan Chart Review Chart Review: Acceptable Risk for Surgery and Patient NOT seen in Pre Admission Testing Consults Requested none ASA ASA4 Proposed Anesthesia Anesthesia Type: MAC History Surgery Operation Date: 08/03/24 16:55 Proposed Procedures p Small Bowel Enteroscopy Carolynn Pradhan MD Height/Weight Height: 5 ft 4 in Weight: 78.1 kg Allergies Allergy/AdvReac Type Severity Reaction Status Date / Time imipenem Allergy Severe Dyspnea Verified 07/09/24 13:57 meropenem Allergy Severe Dyspnea Verified 07/09/24 13:57 penicillamine Allergy Severe Dyspnea Verified 07/09/24 13:57 ranitidine Allergy Severe Dyspnea Verified 07/09/24 13:57 ampicillin Allergy Intermediate Dyspnea, Verified 07/09/24 13:57 hives azithromycin Allergy Intermediate Hives, Verified 07/09/24 13:57 angioedema Cephalosporins Allergy Intermediate Hives Verified 07/09/24 13:57 cilastatin Allergy Intermediate Dyspnea Verified 07/09/24 13:57 Macrolide Antibiotics Allergy Intermediate Hives, Verified 07/09/24 13:57 angioedema Penicillins Allergy Intermediate Hives Verified 07/09/24 13:57 adhesive Allergy Mild Rash Verified 07/09/24 13:57 Carbapenems Allergy Unknown Dyspnea Verified 07/09/24 13:57 Medications Home Medications Medication Instructions Recorded Confirmed Last Taken cyanocobalamin (vitamin B-12) 1,000 mcg PO QDL 12/14/18 07/30/24 07/07/24 1,000 mcg tablet (Vitamin B-12) fluticasone propionate 50 2 spray intranasal QAM PRN Nasal 12/14/18 07/30/24 07/02/24 08:00 mcg/actuation nasal Congestion spray,suspension rosuvastatin 20 mg tablet (Crestor) 20 mg PO QAM 11/12/19 07/30/24 07/08/24 cholecalciferol (vitamin D3) 25 25 mcg PO QDL 05/05/20 07/30/24 07/07/24 mcg (1,000 unit) chewable tablet (Vitamin D3) acetaminophen 500 mg tablet 500 mg PO QID PRN Pain 02/27/22 07/30/24 Unknown (Tylenol Extra Strength) docusate sodium 50 mg capsule 50 mg PO DAILY PRN Constipation 03/28/22 07/30/24 03/27/22 07:00 (Stool Softener) amlodipine 5 mg tablet 5 mg PO QAM 04/21/24 07/30/24 07/08/24 clopidogrel 75 mg tablet 75 mg PO QAM 04/21/24 07/30/24 07/08/24 lisinopril 20 mg tablet 20 mg PO QAM 07/03/24 07/30/24 07/08/24 pantoprazole 40 mg tablet,delayed 40 mg PO BID #60 tabs 07/05/24 07/30/24 07/08/24 release am Active Medications Generic Name Dose Route Start Last Admin Trade Name Freq PRN Reason Stop Dose Admin Cyanocobalamin 1,000 mcg 08/03/24 11:30 08/03/24 11:05 Cyanocobalamin (B-12) 500 Mcg Tablet PO 09/02/24 11:29 Not Given QDL HUNTER Pantoprazole Sodium 40 mg/ 100 mls @ 20 mls/hr 07/30/24 23:15 08/03/24 09:49 Dextrose IV 08/29/24 23:14 8 mg/hr Q5H HUNTER 20 mls/hr Administration 8 MG/HR Loperamide HCl 2 mg 08/02/24 12:04 08/02/24 12:11 Loperamide Hcl 2 Mg Cap PO 09/01/24 12:03 2 mg TID PRN Administration diarrhea Vitamin D 25 mcg 08/03/24 11:30 08/03/24 11:05 Cholecalciferol 25 Mcg (1000 Units) Tab PO 09/02/24 11:29 Not Given QDL HUNTER Past Medical History Medical History Elevated hemidiaphragm L History of GI bleed 2020- DIRECTLY AFTER SHOULDER SURGERY History of COVID-19 10/2021 cough- no hospitalization, no current issues Post-traumatic osteoarthritis, left shoulder Chronic constipation Hx of cancer of uterus s/p hysterectomy with USO Carotid stenosis 50-69% right sided stenosis per 09/2018 doppler report but personal review of imaging by vascular felt that carotid artery stenosis <50% b/l - advised by vascular to f/u PRN; denies dizziness, lightheadedness, visual changes, headaches or syncope History of left shoulder fracture 07/2019 - medically managed until this upcoming surgery PERIPHERAL VASCULAR DISEASE Exercise / Class Metabolic Activity III < 4 Walking/Shop/Light housework Past Family History Family History Other Heart disease Past Surgical History Surgical History History of esophagogastroduodenoscopy (EGD) Fusion of spine Left SI joint fusion: 06/14/2020: Grade 2 view, MAC 3.0, ETT 7.0 at [facility] Hx of tooth extraction Hx of surgical procedure Right SI joint fusion History of cataract surgery R/L History of colonoscopy History of surgery "Windpipe growth" removal History of tonsillectomy H/O hemorrhoidectomy History of appendectomy History of cholecystectomy H/O: hysterectomy + USO Hx of fusion of cervical spine History of lumbar fusion Past Anesthesia History No Hx of Anesthesia Complications and No Family Hx of Anesthesia Complications History of PONV No Hx of PONV and No Hx of Motion Sickness Social History Smoking Status: Light tobacco smoker tobacco type: cigarettes Smoking cigarettes per day: 2 Do You Dip or Chew Tobacco: No Hx Alcohol Use: No Hx Substance Use: No substance use type: does not use Physical Exam Vital Signs Last Vital Signs Temp 36.5 C 08/03/24 11:30 Pulse 65 08/03/24 11:30 Resp 18 08/03/24 11:30 BP 135/73 08/03/24 11:30 Pulse Ox 96 08/03/24 11:30 O2 Del Method Room Air 08/03/24 11:30 Testing Laboratory Results 08/03/24 06:19 08/03/24 06:19 PT 10.9 Seconds (9.0-12.0) 07/30/24 17:20 INR 1.0 (0.9-1.1) 07/30/24 17:20 APTT 25 Seconds (21-31) 07/30/24 17:20 Blood Type O Positive 07/30/24 17:20 Antibody Screen NEGATIVE 07/30/24 17:20 Electrocardiogram Date: 07/30/24 Findings: + NSR @ (@ 73)
[2024-08-03] MEDS ORDERED: ePHEDrine sulfate 50 MG/ML AMP IV PRN (13:07)
[2024-08-03] MEDS ORDERED: ATROPINE SULFATE 0.1 MG/ML 10ML SYR IV PRN (13:07)
--- NOTE | 2024-08-03 13:41 | GI REPORT ---
[facility] Patient: HOOD MALDONADO : 1935 Sex at : Female Age: 88 Years Procedure: Upper GI endoscopy Date: 08/03/2024 Attending Physician: Carlos Pradhan MD Referring MD: Referred Self Indications: - Suspected upper gastrointestinal bleeding - Melena - Acute post hemorrhagic anemia Medications: - Monitored Anesthesia Care Complications: - No immediate complications. Estimated Blood Loss: - Estimated blood loss: None. Procedure: - Prior to the procedure, a History and Physical was performed, and patient medications and allergies were reviewed. The patient's tolerance of previous anesthesia was also reviewed. The risks and benefits of the procedure and the sedation options and risks were discussed with the patient. All questions were answered, and informed consent was obtained. Prior Anticoagulants: The patient has taken no anticoagulant or antiplatelet agents. ASA Grade Assessment: IV - A patient with severe systemic disease that is a constant threat to life. After reviewing the risks and benefits, the patient was deemed in satisfactory condition to undergo the procedure. - The pediatric colonoscope was introduced through the mouth and advanced to the jejunum. - The upper GI endoscopy was accomplished without difficulty. - The patient tolerated the procedure well. Findings: - A small hiatal hernia was present. - LA Grade B (one or more mucosal breaks greater than 5 mm, not extending between the tops of two mucosal folds) esophagitis with no bleeding was found at the gastroesophageal junction (on retroflexion). Biopsies not done as bleeding. - Diffuse moderate inflammation characterized by congestion (edema) was found in the gastric body. - The examined duodenum was normal. - The examined jejunum was normal. Impression: - Small hiatal hernia. - LA Grade B reflux esophagitis with no bleeding. Rule out Contreras's esophagus. - Biopsies not done as bleeding. - Gastritis, characterized by congestion (edema). - Normal examined duodenum. - Normal examined jejunum. - No specimens collected. - No source of GI bleeding noted. She really needs a capsule endoscopy. Will see if we can get this expedited. If she continues to have bleeding, we will have to consider another colonoscopy versus transferred to another facility that has inpatient capsule endoscopy - Full liquid diet Recommendation: - Discharge patient to home (ambulatory). - Resume previous diet. - Continue present medications. - Await pathology results. - Return to primary care physician as previously scheduled. - Patient has a contact number available for emergencies. The signs and symptoms of potential delayed complications were discussed with the patient. Return to normal activities tomorrow. Written discharge instructions were provided to the patient. Procedure Code(s): - 37028, Esophagogastroduodenoscopy, flexible, transoral; diagnostic, including collection of specimen(s) by brushing or washing, when performed (separate procedure) Diagnosis Code(s): - K92.1, Melena (includes Hematochezia) - D62, Acute posthemorrhagic anemia - K44.9, Diaphragmatic hernia without obstruction or gangrene - K21.00, Gastro-esophageal reflux disease with esophagitis, without bleeding - K29.70, Gastritis, unspecified, without bleeding CPT(R) - 2023 copyright [employer]. All Rights Reserved. The CPT codes, CCI edits and ICD codes generated are intended as suggestions and were generated based on input data. These codes are preliminary and upon agricultural produce sorter review may be revised to meet current compliance and payer requirements. The provider is responsible for the final determination of appropriate codes, and modifiers. Carlos Pradhan MD This document has been electronically signed. Note Initiated:08/03/2024 Note Completed:08/03/2024 1:41 PM [email or web address]\[id number]
--- NOTE | 2024-08-03 13:41 | Anesthesiology Progress Note ---
Date of Service August 03, 2024 Anesthesia Post Procedure Vital Signs Vital Signs: Temp Pulse Pulse Resp BP BP Pulse Ox 08/03/24 13:01 37.1 C 58 L 18 165/65 H 95 08/03/24 11:30 36.5 C 65 18 135/73 96 08/03/24 09:43 08/03/24 08:00 36.6 C 57 L 18 133/62 96 08/03/24 02:25 36.5 C 60 16 118/67 95 08/02/24 23:14 137/75 08/02/24 22:33 36.8 C 58 L 18 89/51 L 95 08/02/24 22:14 55 L 08/02/24 19:46 36.5 C 66 16 120/64 98 08/02/24 15:51 36.8 C 70 19 108/69 96 O2 Del Method 08/03/24 13:01 Room Air 08/03/24 11:30 Room Air 08/03/24 09:43 Room Air 08/03/24 08:00 Room Air 08/03/24 02:25 Room Air 08/02/24 23:14 08/02/24 22:33 Room Air 08/02/24 22:14 08/02/24 19:46 Room Air 08/02/24 15:51 Room Air Transfer of Care Handoff Completed per policy Notes Mental Status: alert / awake / arousable Patient Amnestic to Procedure: Yes Nausea / Vomiting: adequately controlled Pain: adequately controlled Airway Patency, RR, SpO2: stable & adequate BP & HR: stable & adequate Hydration State: stable & adequate Anesthetic Complications: no major complications apparent
[2024-08-03] MEDS: LIDOCAINE 2% 2 ML VIAL/AMP(20MG/ML) INFIL ONE (15:03)
[2024-08-03] MEDS: PROPOFOL IV EMULSION 10 MG/ML 20 ML VIAL IV ONE (15:03)
[2024-08-03 15:33] LABS: Hematocrit (blood only) 28.7 % (37.0-47.0); Hemoglobin 8.5 g/dl (12.0-16.0)
--- NOTE | 2024-08-03 16:23 | Hospitalist Progress Note ---
Date of Service August 03, 2024 Assessment & Plan (1) Melena: Plan: 88-year-old female with history significant for coil [place] [facility] [place] by acute lower ext ischemia requiring abdominal aortogram, LLE angiography and open left iliac catheter thromboembolectomy via groin incision, left ext iliac stent grafting of dissection flap on 04/16/24 and has been on plavix and eliquis; recently hospitalized here 07/03/24-07/05/24 and 07/08- for GI bleed. Recurrent GI bleed, Melena Acute on Chronic Anemia Etiology unclear During last month's admission, EGD, colonoscopy, GI bleed nuclear scan unrevealing. "Possible source of bleeding may be jejunum or proximal ileum not visualized endoscopy" CTA Abdomen and pelvis: No active bleeding noted Hemoglobin 7.4, s/p transfusion of 1U pRBCs Protonix drip IV fluids Holding Plavix Anemia panel unremarkable GI consult, appreciate recs Continue to monitor 08/01/24- Case discussed with Dr Rajput, pt currently hemodynamically stable so will see her in the AM. FOBT positive, c diff negative. H/H repeat of 8.2 08/02/24- hgb drop to 7.5 with repeat of 8.3. Per GI, push enteroscopy tomorrow. NPO after midnight. 08/03/24- s/p small bowel enteroscopy EGD, no acute bleed found. Continue to monitor h/h CKD stage III Renal function stable Chronic medical conditions: Hypertension- Hold amlodipine and lisinopril in light of GI bleed, to prevent possible hypotension Dyslipidemia- Hold statin COPD Peripheral arterial disease Diet: full liquids at this time DVT prophylaxis: Lovenox/heparin CI with GI bleed Dispo: home once medically stable Admission and Anticipated Discharge Date Admission Date: July 30, 2024 Subjective pt was seen with at bedsside before her EGD Denied acute concerns at that time No source found on EGD Review of Systems Review of Systems: All systems reviewed & are unremarkable except as noted in Subjective Physical Exam Physical Exam: General: Alert, oriented. No acute distress Psych: Appropriate mood and affect HEENT: NC/AT CV: RRR Resp: Breath sounds clear bilaterally, no increased effort of breathing Abdomen: Soft, nontender Extremities: No edema in lower extremities bilaterally. Results & Data Results & Data Vital Signs (Past 12 Hours) Vital Signs Temp Pulse Resp BP Pulse Ox O2 Del Method 08/03/24 16:16 36.5 C 65 18 105/73 96 Room Air 08/03/24 14:45 60 18 134/62 96 Room Air 08/03/24 14:09 57 L 18 138/90 95 Room Air 08/03/24 13:54 59 L 18 155/71 H 100 Room Air 08/03/24 13:38 57 L 16 144/93 H 100 Room Air 08/03/24 13:01 37.1 C 58 L 18 165/65 H 95 Room Air 08/03/24 11:30 36.5 C 65 18 135/73 96 Room Air 08/03/24 09:43 Room Air 08/03/24 08:00 36.6 C 57 L 18 133/62 96 Room Air
[2024-08-04 07:33] LABS: Basophils # (auto) 0.02 K/uL (0.00-0.20); Basophils % (auto) 0.5 %; Eosinophils # (auto) 0.14 K/uL (0.00-0.50); Eosinophils % (auto) 3.6 %; Hematocrit (blood only) 26.1 % (37.0-47.0); Immature Granulocytes # (auto) 0.01 K/uL (0.01-0.20); Immature Granulocytes % (auto) 0.3 %; Lymphocytes # (auto) 0.98 K/uL (1.20-3.40); Lymphocytes % (auto) 25.1 %; Mean Corpuscular Hemoglobin 27.5 pg (25.0-34.0); Mean Corpuscular Hgb Conc 30.7 g/dL (32.0-36.0); Mean Corpuscular Volume 89.7 fL (80.0-100.0); Mean Platelet Volume 10.2 fL (9.4-12.4); Monocytes # (auto) 0.38 K/uL (0.11-0.59); Monocytes % (auto) 9.7 %; Neutrophils # (auto) 2.37 K/uL (1.40-6.50); Neutrophils % (auto) 60.8 %; Platelet Count 168 K/uL (130-400); RDW Coefficient of Variation 19.4 % (11.5-14.5); RDW Standard Deviation 62.4 fL (36.4-46.3); Red Blood Count 2.91 M/uL (4.20-5.40)
[2024-08-04 07:49] LABS: Albumin Globulin Ratio 1.7 (0.9-2); Albumin Level 3.6 gm/dl (3.4-5.0); BUN Creatinine Ratio 13.9 (10-20); Bilirubin,Total 0.5 mg/dl (0.2-1.0); Calcium 8.8 mg/dl (8.6-10.3); Creatinine Clr Calc Pharmacy 38.7 ml/min; Globulin 2.1 gm/dl (2.5-4.0); Magnesium 1.8 mg/dl (1.7-2.4); Phosphorus 3.8 mg/dl (2.5-4.9); Total Protein 5.7 gm/dl (6.0-8.3)
--- NOTE | 2024-08-04 11:02 | Gastroenterology Progress Note ---
Date of Service August 04, 2024 Assessment & Plan (1) Anemia: Plan: Patient is not seeing any active bleeding at this time. Our office is seeing about getting her outpatient capsule endoscopy done sooner. continue to monitor hgb/hct. If she continues to have bleeding, consider repeat colonoscopy vs transfer to facility that has inpatient capsule endoscopy. Admission and Anticipated Discharge Date Admission Date: July 30, 2024 Supervising Physician Co-Signing Physician Notes I personally saw and examined the patient. I have reviewed the chart and agree with the documentation provided by the EMAIL MARKETING COORDINATOR including discussion about the assessment, treatment and plan. Briefly, no further bleeding but has not had a bowel movement today. We have spoken with Jj Andre to see if we can expedite the capsule endoscopy. Her bleeding seems to be coming from her small bowel closer to her colon. Trial of a full diet today and see if she has a bowel movement by tomorrow. Subjective Tolerating heart healthy diet. She has not moved her bowels since prior to her push enteroscopy yesterday. she has not had bleeding or melena. hgb 8 this morning. rest of GI ros are unremarkable. EGD /10 Small hiatal hernia. - LA Grade B reflux esophagitis with no bleeding. Rule out Contreras's esophagus. - Biopsies not done as bleeding. - Gastritis, characterized by congestion (edema). - Normal examined duodenum. - Normal examined jejunum. - No specimens collected. - No source of GI bleeding noted. Review of Systems Review of Systems: All systems reviewed & are unremarkable except as noted in HPI & below Physical Exam Constitutional: WD/WN, vitals as above Respiratory: normal respiratory effort, lungs clear to auscultation Cardiovascular: Rate/Rhythm: regular rate and regular rhythm Gastrointestinal (Abdomen): normal bowel sounds, soft, nontender, no hepatosplenomegaly Psychiatric: Orientation: alert and oriented x 3 Affect: euthymic affect Results & Data Results & Data Vital Signs (Past 12 Hours) Vital Signs Temp Pulse Pulse Resp BP Pulse Ox O2 Del Method 08/04/24 10:35 97.7 F 60 18 107/54 L 95 Room Air 08/04/24 09:32 Room Air 08/04/24 07:12 97.9 F 64 20 121/64 94 Room Air 08/04/24 07:09 54 L 08/04/24 02:58 98.1 F 62 16 114/61 95 Room Air 08/03/24 23:10 98.4 F 64 20 121/66 91 Room Air Coding Level of Care Code 74053 SUB INP/OBS CARE 06/20MIN Diagnoses Anemia D64.9 Anemia type: unspecified type (1) Anemia Anemia type: unspecified type Qualified Code(s): D64.9 - Anemia, unspecified
--- NOTE | 2024-08-04 14:30 | Hospitalist Progress Note ---
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 Recurrent GI bleed, Melena Acute on Chronic Anemia Etiology unclear During last month's admission, EGD, colonoscopy, GI bleed nuclear scan unrevealing. Noted "Possible source of bleeding may be jejunum or proximal ileum not visualized endoscopy" CTA Abdomen and pelvis: No active bleeding noted Hemoglobin 7.4, s/p transfusion of 1U pRBCs Protonix drip- has since been transitioned to po pantoprazole daily IV fluids Holding Plavix Anemia panel unremarkable GI consult, appreciate recs Continue to monitor 08/01/24- Case discussed with Dr Rajput from GI, pt currently hemodynamically stable so will see her in the AM. FOBT positive, c diff negative. H/H repeat of 8.2 08/02/24- hgb drop to 7.5 with repeat of 8.3. Per GI, push enteroscopy tomorrow. NPO after midnight. 08/03/24- s/p small bowel enteroscopy EGD, no acute bleed found. Continue to monitor h/h 08/04/24- H/h stable at 8.0 today, per GI wants to monitor 1 more day to make sure she is not bleeding. Pt now requesting stool softener to help her have a BM for testing CKD stage III Renal function stable Chronic medical conditions: Hypertension- Hold amlodipine and lisinopril in light of GI bleed, to prevent possible hypotension Dyslipidemia- Hold statin COPD Peripheral arterial disease Diet: full liquids at this time DVT prophylaxis: Lovenox/heparin CI with GI bleed Dispo: home once medically stable Admission and Anticipated Discharge Date Admission Date: July 30, 2024 Subjective pt was seen multiple times during the day. Anxious for discharge Diarrhea resolved Later at bedside, pt and asking for stool softener to help her poop so she can get a stool sample quicker for GI Review of Systems Review of Systems: All systems reviewed & are unremarkable except as noted in Subjective Physical Exam Physical Exam: General: Alert, oriented. No acute distress Psych: Appropriate mood and affect HEENT: NC/AT CV: RRR Resp: Breath sounds clear bilaterally, no increased effort of breathing Abdomen: Soft, nontender Extremities: No edema in lower extremities bilaterally. Results & Data Results & Data Vital Signs (Past 12 Hours) Vital Signs Temp Pulse Pulse Resp BP Pulse Ox O2 Del Method 08/04/24 10:35 36.5 C 60 18 107/54 L 95 Room Air 08/04/24 09:32 Room Air 08/04/24 07:12 36.6 C 64 20 121/64 94 Room Air 08/04/24 07:09 54 L 08/04/24 02:58 36.7 C 62 16 114/61 95 Room Air
[2024-08-04] MEDS: bisacodyL 5 MG TABEC PO PRN (14:48)
[2024-08-05 06:36] LABS: Basophils # (auto) 0.02 K/uL (0.00-0.20); Basophils % (auto) 0.5 %; Eosinophils # (auto) 0.14 K/uL (0.00-0.50); Eosinophils % (auto) 3.6 %; Hematocrit (blood only) 26.9 % (37.0-47.0); Hemoglobin 8.2 g/dl (12.0-16.0); Immature Granulocytes # (auto) 0.01 K/uL (0.01-0.20); Immature Granulocytes % (auto) 0.3 %; Lymphocytes # (auto) 1.14 K/uL (1.20-3.40); Lymphocytes % (auto) 29.5 %; Mean Corpuscular Hemoglobin 27.3 pg (25.0-34.0); Mean Corpuscular Hgb Conc 30.5 g/dL (32.0-36.0); Mean Corpuscular Volume 89.7 fL (80.0-100.0); Mean Platelet Volume 10.5 fL (9.4-12.4); Monocytes % (auto) 10.3 %; Neutrophils # (auto) 2.16 K/uL (1.40-6.50); Neutrophils % (auto) 55.8 %; Platelet Count 179 K/uL (130-400); RDW Coefficient of Variation 19.5 % (11.5-14.5); RDW Standard Deviation 63.4 fL (36.4-46.3); White Blood Count 3.87 K/ul (4.8-10.8)
[2024-08-05 07:10] LABS: BUN Creatinine Ratio 17.8 (10-20); Bilirubin,Total 0.5 mg/dl (0.2-1.0); Calcium 8.9 mg/dl (8.6-10.3); Creatinine Clr Calc Pharmacy 38.6 ml/min; Magnesium 1.8 mg/dl (1.7-2.4); Phosphorus 3.7 mg/dl (2.5-4.9); Potassium 3.8 mmol/L (3.5-5.1)
[2024-08-05 07:11] LABS: Albumin Globulin Ratio 1.4 (0.9-2); Albumin Level 3.6 gm/dl (3.4-5.0); Globulin 2.5 gm/dl (2.5-4.0); Total Protein 6.1 gm/dl (6.0-8.3)
[2024-08-05] MEDS: PANTOprazole 40 MG TAB PO SCH (09:05)
--- NOTE | 2024-08-05 09:47 | Gastroenterology Progress Note ---
Date of Service August 05, 2024 Assessment & Plan (1) Anemia: Plan: 88 year old female w/ [place] of [place] [facility] [place] acute lower ext ischemia requiring abdominal aortogram, LLE angiography and open left iliac catheter thromboembolectomy via groin incision, left ext iliac stent grafting of dissection flap on 04/16/24 anticoagulated on plavix and eliquis, recently admitted for GI bleeding in Feb[place] s/p EGD/Colonoscopy w/o active bleeding to have OP VCE who is re-admitted w/ return of GI bleeding. Push enteroscopy negative. No GI contraindication to discharge if stools without roberto blood or melena. Attempt to expedite outpatient VCE. If she continues to have bleeding, consider repeat colonoscopy vs transfer to facility that has inpatient capsule endoscopy. Recall GI as needed. I spent a total of 40 minutes on the date of service in review of patient's record, and previously obtained information in person and appropriate medical visit, discussion and education of plan, with patient and/or caregiver, placing orders for tests/referral/procedures as medically necessary and documentation of pertinent clinical information in patient's medical records for their visit today. Thank you for allowing us to participate in the care of this patient. Please call with any acute changes, questions or concerns. Please see addendum below with additional recommendation from my supervising physician. Admission and Anticipated Discharge Date Admission Date: July 30, 2024 Supervising Physician Co-Signing Physician Notes I personally saw and examined the patient. I have reviewed the chart and agree with the documentation provided by the KENNEL MANAGER including discussion about the assessment, treatment and plan. Briefly, no further bleeding now. She has not had a bowel movement but blood is an incredible cathartic so if she was actively bleeding we did see something hemoglobins been stable. She is safe for discharge today with a follow-up outpatient capsule endoscopy that we are trying to expedite Subjective Pt was seen and evaluated, chart. Awaiting discharge. No further BMs. No abd pain. No nausea/vomiting. No fever, chills, CP, SOB. Review of Systems Review of Systems: All other findings negative except as noted in HPI. Physical Exam Constitutional: WD/WN, vitals as above Respiratory: normal respiratory effort, lungs clear to auscultation Cardiovascular: Rate/Rhythm: regular rate and regular rhythm Gastrointestinal (Abdomen): normal bowel sounds, soft, nontender, no hepatosplenomegaly Skin: no rashes, warm and dry Results & Data Results & Data Vital Signs (Past 12 Hours) Vital Signs Temp Pulse Pulse Resp BP Pulse Ox O2 Del Method 08/05/24 07:43 Room Air 08/05/24 07:16 98.1 F 59 L 20 125/71 96 Room Air 08/05/24 03:03 97.5 F L 63 19 117/57 L 96 Room Air 08/04/24 23:38 62 08/04/24 23:11 98.2 F 62 19 120/66 96 Room Air Laboratory Results 08/05/24 Range/Units 05:49 WBC 3.87 L (4.8-10.8) K/ul RBC 3.00 L (4.20-5.40) M/uL Hgb 8.2 L (12.0-16.0) g/dl Hct 26.9 L (37.0-47.0) % MCV 89.7 (80.0-100.0) fL MCH 27.3 (25.0-34.0) pg MCHC 30.5 L (32.0-36.0) g/dL RDW Std Deviation 63.4 H (36.4-46.3) fL RDW Coeff of Devi 19.5 H (11.5-14.5) % Plt Count 179 (130-400) K/uL MPV 10.5 (9.4-12.4) fL Immature Gran % (Auto) 0.3 % Neut % (Auto) 55.8 % Lymph % (Auto) 29.5 % [place] % (Auto) 10.3 % Eos % (Auto) 3.6 % Baso % (Auto) 0.5 % Neut # (Auto) 2.16 (1.40-6.50) K/uL Lymph # (Auto) 1.14 L (1.20-3.40) K/uL [place] # (Auto) 0.40 (0.11-0.59) K/uL Eos # (Auto) 0.14 (0.00-0.50) K/uL Baso # (Auto) 0.02 (0.00-0.20) K/uL Immature Gran # (Auto) 0.01 (0.01-0.20) K/uL Sodium 139 (136-145) mmol/L Potassium 3.8 (3.5-5.1) mmol/L Chloride 108 H (98-107) mmol/L Carbon Dioxide 28 (21-32) mmol/L Anion Gap 3 (3-11) BUN 18 (6-23) mg/dl Creatinine 1.01 (0.6-1.2) mg/dl Est Cr Clr Drug Dosing 38.6 ml/min eGFR 53.88 BUN/Creatinine Ratio 17.8 (10-20) Glucose 93 (70-99(Fasting)) mg/dl Calcium 8.9 (8.6-10.3) mg/dl Phosphorus 3.7 (2.5-4.9) mg/dl Magnesium 1.8 (1.7-2.4) mg/dl Total Bilirubin 0.5 (0.2-1.0) mg/dl AST 11 L (13-39) U/L ALT 8 (7-52) U/L Alkaline Phosphatase 55 (34-104) U/L Total Protein 6.1 (6.0-8.3) gm/dl Albumin 3.6 (3.4-5.0) gm/dl Globulin 2.5 (2.5-4.0) gm/dl Albumin/Globulin Ratio 1.4 (0.9-2) PG Care Time/CCT Total # of Minutes Spent Total Time Spent with Patient: Total time spent is greater than 50% in coordination of care (as documented) at patient's floor/unit and/or counseling patient: Coding Level of Care Code 57701 SUB INP/OBS CARE 2/35MIN Diagnoses Anemia D64.9 Anemia type: unspecified type (1) Anemia Anemia type: unspecified type Qualified Code(s): D64.9 - Anemia, unspecified
--- NOTE | 2024-08-05 11:23 | Hospitalist Progress Note ---
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/24 at [facility] [place] complicated by acute lower ext ischemia requiring abdominal aortogram, LLE angiography and open left iliac catheter thromboembolectomy via groin incision, left ext iliac stent grafting of dissection flap on 04/16/24 and was on plavix and eliquis She was recently hospitalized here 07/03/24-07/05/24 and 07/08/24-07/11/2024 for GI bleed and eliquis was stopped on after last hospitalization Presented again with GI bleed Recurrent GI bleed, Melena Acute on Chronic Anemia Etiology unclear During last month's admission, EGD, colonoscopy, GI bleed nuclear scan unrevealing. Noted "Possible source of bleeding may be jejunum or proximal ileum not visualized endoscopy" CTA Abdomen and pelvis: No active bleeding noted This admission, Hemoglobin 7.4, s/p transfusion of 1U pRBCs Protonix drip- has since been transitioned to po pantoprazole daily Plavix currently on hold GI on board 08/01/24- Case discussed with Dr Rajput from GI, FOBT positive, c diff negative. H/H repeat of 8.2 08/02/24- hgb drop to 7.5 with repeat of 8.3. 08/03/24- s/p small bowel enteroscopy EGD, no acute bleed found. Continue to monitor h/h 08/04/24- H/h stable at 8.0, per GI wants to monitor for another day and to get FOBT Patient yet to have a BM Will get FOBT once BM Plan to discuss plavix with her Vascular surgeons prior to DC Patient needs capsule endoscopy. GI noted they had discussed with GI at [facility]. PCP can help facilitate this considering recurrent episodes of bleeding and high risk readmission CKD stage III Renal function stable Chronic medical conditions: Hypertension- Continue to hold amlodipine and lisinopril in light of GI bleed, to prevent possible hypotension BP stable Peripheral arterial disease Diet: Heart healthy DVT prophylaxis: Pharmacological agent contraindicated for now I spent a total of 45 minutes coordinating, documenting and providing care for this patient excluding time spent in performance of separately billed services Admission and Anticipated Discharge Date Admission Date: July 30, 2024 Subjective Patient seen and examined Yet to have a BM today Denied any other complaints on ROS Physical Exam Constitutional: + well hydrated; no acute distress Eyes: PERRL, conjunctivae normal, anicteric sclerae ENMT: external ear and nose normal, oropharynx normal Respiratory: normal respiratory effort, lungs clear to auscultation Cardiovascular: Rate/Rhythm: regular rate and regular rhythm Gastrointestinal (Abdomen): normal bowel sounds, soft, nontender, no hepatosplenomegaly Musculoskeletal: No pedal edema Neurologic: PERRL, EOMI, accommodation nl, no face palsy, no dysarthria Results & Data Results & Data Vital Signs (Past 12 Hours) Vital Signs Temp Pulse Pulse Resp BP Pulse Ox O2 Del Method 08/05/24 11:14 36.8 C 58 L 20 125/73 96 Room Air 08/05/24 10:58 57 L 08/05/24 07:43 Room Air 08/05/24 07:16 36.7 C 59 L 20 125/71 96 Room Air 08/05/24 03:03 36.4 C L 63 19 117/57 L 96 Room Air 08/04/24 23:38 62 Laboratory Results Abnormal lab results 08/05/24 Range/Units 05:49 WBC 3.87 L (4.8-10.8) K/ul RBC 3.00 L (4.20-5.40) M/uL Hgb 8.2 L (12.0-16.0) g/dl Hct 26.9 L (37.0-47.0) % MCHC 30.5 L (32.0-36.0) g/dL RDW Std Deviation 63.4 H (36.4-46.3) fL RDW Coeff of Devi 19.5 H (11.5-14.5) % Lymph # (Auto) 1.14 L (1.20-3.40) K/uL Chloride 108 H (98-107) mmol/L AST 11 L (13-39) U/L
[2024-08-05 15:45] LABS: Hematocrit (blood only) 30.1 % (37.0-47.0); Mean Corpuscular Hemoglobin 26.9 pg (25.0-34.0); Mean Corpuscular Hgb Conc 29.9 g/dL (32.0-36.0); Mean Corpuscular Volume 90.1 fL (80.0-100.0); Mean Platelet Volume 10.2 fL (9.4-12.4); Platelet Count 200 K/uL (130-400); RDW Coefficient of Variation 19.6 % (11.5-14.5); RDW Standard Deviation 64.2 fL (36.4-46.3); Red Blood Count 3.34 M/uL (4.20-5.40)
[2024-08-06 03:39] VITALS: TEMP 98.4
[2024-08-06 06:44] LABS: Basophils # (auto) 0.03 K/uL (0.00-0.20); Basophils % (auto) 0.7 %; Eosinophils # (auto) 0.14 K/uL (0.00-0.50); Eosinophils % (auto) 3.3 %; Hematocrit (blood only) 29.1 % (37.0-47.0); Immature Granulocytes # (auto) 0.02 K/uL (0.01-0.20); Immature Granulocytes % (auto) 0.5 %; Lymphocytes # (auto) 1.17 K/uL (1.20-3.40); Lymphocytes % (auto) 27.5 %; Mean Corpuscular Hemoglobin 27.5 pg (25.0-34.0); Mean Corpuscular Hgb Conc 30.9 g/dL (32.0-36.0); Mean Platelet Volume 10.5 fL (9.4-12.4); Monocytes # (auto) 0.42 K/uL (0.11-0.59); Monocytes % (auto) 9.9 %; Neutrophils # (auto) 2.48 K/uL (1.40-6.50); Neutrophils % (auto) 58.1 %; Platelet Count 219 K/uL (130-400); RDW Coefficient of Variation 19.2 % (11.5-14.5); RDW Standard Deviation 62.9 fL (36.4-46.3); Red Blood Count 3.27 M/uL (4.20-5.40); White Blood Count 4.26 K/ul (4.8-10.8)
[2024-08-06 07:06] LABS: Albumin Globulin Ratio 1.6 (0.9-2); Albumin Level 3.9 gm/dl (3.4-5.0); BUN Creatinine Ratio 21.3 (10-20); Bilirubin,Total 0.5 mg/dl (0.2-1.0); Calcium 9.1 mg/dl (8.6-10.3); Globulin 2.4 gm/dl (2.5-4.0); Magnesium 1.8 mg/dl (1.7-2.4); Phosphorus 3.5 mg/dl (2.5-4.9); Total Protein 6.3 gm/dl (6.0-8.3)
[2024-08-06 07:07] VITALS: RESP 19; O2SAT 96
--- NOTE | 2024-08-06 10:15 | Discharge Summary ---
Date of Service August 06, 2024 Admission HPI Per Admitting Provider 88-year-old female with history significant for coil embolization of carotid carvenous fistula on 04/15/24 [place] [facility] [place] by acute lower ext ischemia requiring abdominal aortogram, LLE angiography and open left iliac catheter thromboembolectomy via groin incision, left ext iliac stent grafting of dissection flap on 04/16/24 and has been on plavix and eliquis; recently hospitalized here 07/03/24-07/05/24 and 07/08- for GI bleed. During the last admission for GI bleed, the patient underwent EGD and colonoscopy. Results as follows EGD on 07/09/24 did not show active bleeding source Colonoscopy on 07/09/24 noted 3 small colonic polyps, diverticulosis. No active bleeding source seen. Only area that appeared to have fresh blood was in the cecum, with blood coming through IC valve and in terminal ileum without any source seen GI bleed nuclear scan on 07/09/24 did not show evidence of bleed Endoscopy findings suggest possible source of bleeding may be jejunum or proximal ileum not visualized on endoscopy Patient is to follow up with GI outpatient for Video capsule endoscopy Hospitalist discussed with Vascular surgery at [facility] who recommends stopping Eliquis, continue plavix and to keep Vascular outpatient appt on 09/18. Patient returns to the ER today As she noted black/bloody stools this morning 2- 3 times at home. Hemoglobin today is 7.4 from 8.1 last July 11, 2024. CT angiogram abdomen pelvis: No active bleeding identified ER physician discussed with GI on-call who agreed to have the patient admitted to [facility] at this time. On my exam, patient seen resting in bed, comfortable, not in distress. Denies ongoing abdominal pain, nausea, chest pain, shortness of breath, palpitations, dizziness, etc. States she has been feeling weak since last month. Admission Exam Per Admitting Provider General- oriented x 3, not in distress, speaks in sentences with no effort or accessory muscle use Head- atraumatic Eyes- PERRL, EOMI, anicteric ENT- oropharynx clear Neck- supple, no JVD, no adenopathy, no thyromegaly; carotids +2/2, no bruits appreciated Lungs- clear to auscultation bilaterally, no rales/wheezes Heart- normal rate, regular rhythm; no murmur, no gallop, no rub appreciated Abdomen- normal bowel sounds, nondistended, soft, nontender, no masses or hepatosplenomegaly Extremities- no pretibial edema, no calf tenderness; peripheral pulses intact Neuro- alert, oriented x 3; CN 2-12 grossly intact; motor 5/5 bilaterally;sensation 100% on all extremities; no other gross focal neurologic deficits Skin- warm & dry Principal Diagnosis Gastrointestinal bleeding Blood loss anemia Discharge Exam Constitutional + well hydrated; no acute distress Eyes PERRL, conjunctivae normal, anicteric sclerae ENMT external ear and nose normal, oropharynx normal Respiratory normal respiratory effort, lungs clear to auscultation Cardiovascular Rate/Rhythm: regular rate and regular rhythm Gastrointestinal (Abdomen) normal bowel sounds, soft, nontender, no hepatosplenomegaly Musculoskeletal No pedal edema Neurologic PERRL, EOMI, accommodation nl, no face palsy, no dysarthria Psychiatric A+Ox3, euthymic affect Discharge Data Allergies Allergy/AdvReac Type Severity Reaction Status Date / Time imipenem Allergy Severe Dyspnea Verified 07/09/24 13:57 meropenem Allergy Severe Dyspnea Verified 07/09/24 13:57 penicillamine Allergy Severe Dyspnea Verified 07/09/24 13:57 ranitidine Allergy Severe Dyspnea Verified 07/09/24 13:57 ampicillin Allergy Intermediate Dyspnea, Verified 07/09/24 13:57 hives azithromycin Allergy Intermediate Hives, Verified 07/09/24 13:57 angioedema Cephalosporins Allergy Intermediate Hives Verified 07/09/24 13:57 cilastatin Allergy Intermediate Dyspnea Verified 07/09/24 13:57 Macrolide Antibiotics Allergy Intermediate Hives, Verified 07/09/24 13:57 angioedema Penicillins Allergy Intermediate Hives Verified 07/09/24 13:57 adhesive Allergy Mild Rash Verified 07/09/24 13:57 Carbapenems Allergy Unknown Dyspnea Verified 07/09/24 13:57 Consultations 07/30/24 18:06 ED Decision to Admit Stat 07/30/24 22:41 Consult Gastroenterology Routine Procedures Performed Operation Date: 08/03/24 16:55 Actual Procedures p Small Bowel Enteroscopy EGD - Carlos Pradhan MD Ordered Studies 07/30/24 18:25 CT angio abdomen pelvis w con Stat Hospital Course (1) Melena: 88-year-old female with history significant for coil embolization of carotid carvenous fistula on 04/15/24 at [facility] [place] complicated by acute lower ext ischemia requiring abdominal aortogram, LLE angiography and open left iliac catheter thromboembolectomy via groin incision, left ext iliac stent grafting of dissection flap on 04/16/24 and was on plavix and eliquis She was recently hospitalized here 07/03/24-07/05/24 and 07/08/24-07/11/2024 for GI bleed and eliquis was stopped on after last hospitalization Presented again with GI bleed Recurrent GI bleed, Melena Acute on Chronic Anemia Etiology unclear During last month's admission, EGD, colonoscopy, GI bleed nuclear scan unrevealing. Noted "Possible source of bleeding may be jejunum or proximal ileum not visualized endoscopy" CTA Abdomen and pelvis: No active bleeding noted This admission, Hemoglobin 7.4, s/p transfusion of 1U pRBCs Plavix was held while inpatient Patient had small bowel enteroscopy by GI which showed small hiatal hernia, LA grade B esophagitis with no bleeding, diffuse mod inflammation in gastric body Bleeding stopped FOBT yesterday is negative Hb is stable in 9s I called Vascular surgery at [facility] who recommended continuing plavix and for patient to keep her follow up next month Patient needs capsule endoscopy. GI noted they had discussed with GI at [facility]. PCP can help facilitate this considering recurrent episodes of bleeding and high risk readmission Updated patient about plans and recommendations Total Time Total Time Spent Total Time Spent (In Minutes): 45 Total Time Includes: Examination of the Patient, Discharge Planning, Medication Reconciliation and Communication With Other Providers Discharge Plan Discharge Items Patient Disposition: Home - Self-Care Reason For Visit: MELENA Discharge Diagnosis: Gastrointestinal bleeding Activity: Resume your previous activity Non-emergency contact: Primary Care Provider and Specialist Call non-emergency contact if: you have any medication questions and your symptoms worsen Follow-up/Referrals: Bharati Wang MD [Primary Care Provider] - (Date & Time 08/11/2024 9:00 AM Provider: Bharati Wang MD Family Medicine [facility] ) Diet: Heart Healthy Addtl Attending Provider Instructions: Mrs day You were hospitalized for bloody bowel movement which was extensively evaluated with endoscopy by Gastroenterology. Your bleeding has stopped. Please ensure follow up with Gastroenterology for capsule endoscopy. Please ensure follow up with your Vascular surgeon. It was a pleasure taking care of you Pending Studies at Discharge: No Stand-Alone Forms: My [facility], Smoking Cessation Medications and DC Order Prescriptions: Continued cyanocobalamin (vitamin B-12) [Vitamin B-12] 1,000 mcg Tablet 1,000 mcg PO QDL fluticasone propionate 50 mcg/actuation [place],Suspension 2 spray INTRANASAL QAM PRN (Reason: Nasal Congestion) rosuvastatin [Crestor] 20 mg Tablet 20 mg PO QAM cholecalciferol (vitamin D3) [Vitamin D3] 25 mcg (1,000 unit) Tablet,Chewable 25 mcg PO QDL acetaminophen [Tylenol Extra Strength] 500 mg Tablet 500 mg PO QID PRN (Reason: Pain) Stool Softener 50 mg Capsule 50 mg PO DAILY PRN (Reason: Constipation) clopidogrel 75 mg tablet 75 mg PO QAM amlodipine 5 mg tablet 5 mg PO QAM lisinopril 20 mg tablet 20 mg PO QAM pantoprazole 40 mg Tablet,Delayed Release (Dr/Ec) 40 mg PO BID Qty: 60 0RF Discharge Orders: Discharge Order (Routine); Ordered 08/06/24 Ordered By: Danna Stark Admission Data Admit Date/Time: 07/30/24 19:32 Attending Provider: Danna Stark I. Admit Provider: Brennan Rosas Primary Care Provider: Bharati Wang Other Providers: Brennan Rosas; Ester Wilson; Refugio Barnard; Mariia Castanon; Fior Ye; Summer Helton; Carolina Christie; Dima Castaneda; Kiarra Reeves; Ja Griffin; Teofilo Ellis; Suellen Arevalo; Nenita Chavez; Rosario Zamora; Taylor Juarez; Santi Edwards; Chris Villar; Jane Tuttle; Angelina Ford Jr; Cedric Foster; Alhaji Evans; Carlos Pradhan; Rodrigo Christie; Maribel Orozco.; Palmer Rajput I; Mague Davalos; David Prescott; Ruben Tavera; Darcy Sanchez. Other Interventions: Discharge Summary Assessment (RN) Last Done: 08/06/24 10:22
[2024-08-06 10:23] VITALS: BP 106/58; PULSE 72
== END 2024-08-06 11:12 | disposition home or self-care (01) | DRG 378 ==
LOC: ED 16:45 → 2S 19:32 → SUATTDRO 19:32 → 2S 22:47

== ENCOUNTER 2024-08-23 23:29 | Inpatient (IN) ==
--- OUTSIDE RECORDS SUMMARY | 2024-08-23 23:37 | External Medical Summary | Summary of Care ---
Author Name Unknown Organization [facility] Address [address] [place] [address] Phone [phone] Care Team Providers Care Dental Technologist Name Role Phone Bharati Wang MD Primary Care Provide r Reason for Referral * Precert (Within 10 days (routine)) - Authorized Specialty Diagnoses / Procedures Referred By Cinda mane Referred To Contact Radiology Diagnoses Irritable bowel syndrome with constipation Acute blood loss anemia Iron deficiency anemia, unspecified iron deficiency anemia type Rectal bleeding Procedures GI TRACT IMAGING, CAPSULE, SMALL [facility]astroenterology, [place] [address] Phone: tel: fax: Referral ID Status Reason Start Date Expiration Date V isits Requested Visits Authorized [id number] Authorized 08/17/2024 [id number] 999 Reason for Visit * Reason Onset Date Comments Office Procedure Pt here for VCE . NPO 10PM last night. Endoscopy (Op Note) 08/17/2024 Capsule Encounter Details Date Type Department Care Team (Late st Contact Info) Description 08/17/2024 7:30 AM EDT Nurse Only [facility] [address] Nurse Dale [address] [place] [address] Office Procedure (Pt here for VCE. NPO 10P... Allergies Active Allergy Reactions Criticality Noted Date [...] as of this encounter (statuses as of 08/18/2024) Medications VITAMIN D 2000 UNITS PO CAPS Take 1 Capsule by mouth daily with dinner. [address] ARTHRITIS PAIN 500 MG PO TABS Take by mouth. Active Cyanocobalamin 1000 MCG Oral Tablet Take 1 Tablet by mouth daily at noon. 8 Active amLODIPine Besylate 5 MG Oral Tablet [...] the morning. 90 Tablet 1 5 Active Fluticasone Propionate 50 MCG/ACT Nasal Suspension (Flonase)Indica tions:Nasal congestion Administer 1 [place] into nostril in the morning. 16 g Active Pantoprazole Sodium 40 MG Oral Packet (Protonix) Take 40 mg by mouth in the morning and 40 mg before bedtime. 30 Each 2 Active Hospital, Clinic, or Other Facility Administered Medication Ordered Dose Route Frequency Start Date End Date Status Simethicone (Mylicon) chew tab 80 mgIndications:Iron deficiency anemia, unspecified iron deficiency anemia type 80 mg OR ONCE 08/17/2024 08/17/2024 Ended Polyethylene Glycol 3350 (Miralax) oral powder 17 gIndications:Iron deficiency anemia, unspecified iron deficiency anemia type 17 g OR ONCE 08/17/2024 08/17/2024 Ended documented as of this encounter (statuses as of 08/18/2024) Active Problems Problem Noted Date Diagnosed Date HTN, goal below 140/90 08/11/2024 Benign hypertension with CKD (chronic kidney disease), stage II 08/11/2024 Iron deficiency anemia 07/15/2024 Thromboembolus 07/07/2024 CKD [...] as of this encounter (statuses as of 08/18/2024) Resolved Problems Problem Noted Date Diagnosed Date [...] fracture of humerus 08/07/2019 01/22/2024 Overview (08/10/2019): [facility] Bilateral sciatica 06/01/2019 Spasm of muscle [...] as of this encounter (statuses as of 08/18/2024) Immunizations Name Administration Dates Next Due COVID-19 mRNA, LNP-s, No Pre serve, 2-Dose Series (Moderna) 07/24/2020,06/26/2020 COVID-19, mRNA, LNP-s, PF, B ooster, 100mcg/0.5mg (Moderna) 03/28/2021 Covid-19, Mrna, Lnp-s, Pf, B ivalent, 30 Mcg, IM, 12 yrs and above (txtr) 02/27/2022 Pneumococcal Conjugate Vacc, 13 Valent (Prevnar) [...] Date Smoking Tobacco: Every Day Cigarettes 1 57.9 Started: 1965 Smokeless Tobacco: Never Comments:06/19/24 1/2 [...] Job End Date 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 Not on file Not on file Not on file documented as of this encounter Last Filed Vital Signs Vital Sign Reading Time Taken Comments Blood Pressure 126/78 08/17/2024 7:35 AM EDT Pulse - - Temperature 36.7 C (98 F) 08/17/2024 7:35 AM EDT Respiratory Rate - - Oxygen Saturation - - Inhaled Oxygen Concentration - - Weight 72.1 kg (159 lb) 08/17/2024 7:35 AM EDT Height - - Body Mass Index 27.29 07/24/2024 12:41 PM EST documented in this encounter Patient Instructions * Patient Instructions* Caroline Lyles CMA - 08/17/2024 7:39 AM EDT Video Capsule Endoscopy (VCE) Discharge Instructions Avoid activities that require frequent bending at the waist (laundry, aerobics, gardening etc) No lying flat (you may rest in recliner) Participate in movement/gentle activity for 5-10 min each hour Please keep belt intact around waist with sling/recorder near belt line at all times (may adjust when using restroom if warranted) You may resume a clear liquid diet 2 hours after swallowing video capsule Return to the office 8 hours after swallowing video capsule The green light on the right side of monitor is the Battery Life The blinking blue light on left side of the monitor is the capsule recording data (this will turn orange and eventually off once the recording is complete) Please call [phone], option #2 with questions. documented in this encounter Progress Notes * Caroline Lyles CMA - 08/17/2024 3:40 PM EDT Pt unable to return today due to living an hour away. Called pt to walk through [facility] unit disconnected. Pt reports no problems and denies nausea, vomiting, bloating, or pain. Pt tolerated procedure well. Database will be downloaded 08/18/[address] Castaneda to review. Report to follow. Pt notified to call us if she does not pass capsule in a few days or if she developes nausea, vomiting, bloating and/or abdominal pain. Pt verbalized understanding and agrees to plan of care. Pt returning unit 08/18/24 at office and will follow up with pt at that time. Caroline Lyles CMA * Caroline Lyles CMA - 08/17/2024 7:36 AM EDT Patient arrived at 0730 for capsule endoscopy. Ester Wilson educated patient about this procedure, benefits, risks, and alternatives. Patient signed consent after verbalizing that she had no questions or reservations. The patient was given 1 chewable Simethicone tab as well as one capful of Miralax in eight ounces of water. Patient connected to [facility] imaging unit and swallowed capsule at 0740 without difficulty. Date basebattery light flashing green and "activity" light flashing blue. Patient given copy of instructions, as well as our office phone number to call as needed with any questions or problems. Pt given the Act 112 brochure with today's discharge paperwork which highlights our goal to ensure that they receive the results of their testing in a timely manner. They are aware that once their study is downloaded at the end of today's recording, their results will be sent to one of our reading providers. Pt aware that in accordance with [place] Act 112-2018 "The Patient Test Results Information Act," we are required to notify them if, as a result of a determination by their diagnostic imaging service, further discussions of these results are warranted and would be beneficial. The complete result of your tests will be sent to the health care provider that ordered the test. Patient instructed to return to office at 1530 today to be disconnected. Patient verbalized understanding of all instructions and tolerated procedure well. Caroline Lyles CMA documented in this encounter Nursing Notes * Caroline Lyles CMA - 08/17/2024 7:35 AM EDT Chief Complaint Patient presents with Office Procedure Pt here for VCE. NPO 10PM last night. documented in this encounter Plan of Treatment Upcoming Encounters Date Type Department Care Team (Late st Contact Info) Description 08/25/2024 10:00 AM EDT Office Visit Family Medicine [address] [phone] Bharati Wang MD [address] [place] [address] [place] [address] 08/26/2024 1:00 PM EDT Imaging Vascular Lab, [address] [place] [phone] 08/26/2024 2:00 PM EDT Imaging Vascular Lab, [address] [place] [phone] 09/02/2024 2:30 PM EDT Office Visit Vascular Surgery, [facility] [address] [place] [phone] Fletcher Alford MD [address] [place] [address] 09/10/2024 11:30 AM EDT Office Visit Neurosurgery, [place] [address] [place] [address] Yann Jackson MD [address] [place] [phone] 09/18/2024 12:00 PM EDT Appointment Vascular Lab [facility], [place] [address] [place] [address] 09/18/2024 12:30 PM EDT Appointment Vascular Lab [place] [address] [place] [address] 09/18/2024 1:20 PM EDT Office Visit Vascular Surg [facility], [place] [address] [place] [address] Samson Dennis MD [facility] [place] [address] 09/24/2024 11:30 AM EDT Office Visit Gastroenterology, [facility] [address] [place] [phone] Ester Wilson CRNP [address] [place] [address] 10/13/2024 10:00 AM EDT Office Visit [address] [place] [phone] Bharati Wang MD [address] [place] [address] [place] [address] Scheduled Orders Name Type Priority Associated Diagnoses Orde r Schedule GI TRACT IMAGING, CAPSULE, SMALL Procedures Routine Irritable bowel syndrome with constipation Acute blood loss anemia Iron deficiency anemia, unspecified iron deficiency anemia type Rectal bleeding Ordered: 08/17/2024 Scheduled Procedures Name Priority Associated Diagnoses Date/Ti me ESOPHAGOGASTRODUODENOSCOPY ( EGD), FLEXIBLE, TRANSORAL, DIAGNOSTIC Recall Contreras esophagus Health Maintenance Due Date Last Done Comments Alpha-1 Antitrypsin 1953 Adult Wellness Visit 2002 DXA Scan 04/06/2018 04/06/2016, 09/2012, 02/08/2011, Additional history exists DISCUSS TOBACCO CESSATION (REFER TO SMARTSET #6570) 08/01/2018 08/01/2017 (Discussed) DTap/Tdap Vaccines (2 - [...] D LEVEL ONCE IN A LIFETIME-USE SMARTSET# 84845 Completed 02/12/2018, 04/25/2015, 09/24/2014, Additional history exists Zoster Vaccines Completed 07/06/2019, 11/24, 09/13/2010 Influenza Vaccine (FLU shot) Completed 03/02/2024, 02/28/2023, [...] this encounter Medical Devices Implanted Type Area Land Lease Information Clerk Device Identifier Shelf Expiration Date Model / Serial / Lot Coil Target 3d [id number] - [id number] Implanted:Qty : 1 on 04/15/2024 by Yann Jackson [place] [facility] [place] Head ANNAMARIA : NEUROVASCULAR [id number] 12/16/2024 [id number] / / [id number] 6cm, Coil Swiftpac Implanted:Qty : 1 on 04/15/2024 by Yann Jackson MD [place] [facility] [place]: Head [employer] 12/16/2028 [id number] / / [id number] 45cm, Coil Swiftpac Implanted:Qty : 1 on 04/15/2024 by Yann Jackson MD [place] [facility] [place]: Head [employer] 12/16/2028 [id number] / / [id number] 60cm, Coil Swiftpac Implanted:Qty : 1 on 04/15/2024 by Yann Jackson MD at [place] [facility] [place]: Head [employer] 11/02/2028 [id number] / / [id number] Coil Target 3d [id number] - [id number] Implanted:Qty : 1 on 04/15/2024 by Yann Jackson MD at [place] [facility] [place]: Head ANNAMARIA : NEUROVASCULAR [id number] 12/24/2024 [id number] 60 / / [id number] Coil Target 360 Soft [id number] - [id number] Implanted:Qty : 1 on 04/15/2024 by Yann Jackson MD at [place] [facility] [place]: Head ANNAMARIA : NEUROVASCULAR [id number] 06/23/2025 [id number] / / [id number] Coil Target 360 Ultra [id number] - [id number] Implanted:Qty : 1 on 04/15/2024 by Yann Jackson MD at [place] [facility] [place]: Head ANNAMARIA : NEUROVASCULAR [id number] 05/04/2026 [id number] 00 / / [id number] Coil Target 360 Ultra [id number] - [id number] Implanted:Qty : 1 on 04/15/2024 by Yann Jackson MD at [place] [facility] [place]: Head ANNAMARIA : NEUROVASCULAR [id number] 02/03/2025 [id number] 80 / / [id number] 10cm, Coil Swiftpac Implanted:Qty : 2 on 04/15/2024 by Yann Jackson MD at [place] [facility] [place]: Head [employer] 12/24/2028 [id number] / / [id number] 30cm, Coil Swiftpac Implanted:Qty : 1 on 04/15/2024 by Yann Jackson MD at [place] [facility] [place]A: Head [employer] 12/24/2028 [id number] / / [id number] 60cm, Coil Swiftpac Implanted:Qty : 1 on 04/15/2024 by Yann Jackson MD at [place] [facility] [place]/A: Head [employer] 11/02/2028 [id number] / / [id number] 6cm, Coil Swiftpac Implanted:Qty : 1 on 04/15/2024 by Yann Jackson MD at [place] [facility] [place]/A: Head [employer] 12/16/2028 [id number] / / [id number] Stent Vasc Hep 8mmx7.8j956ib - [id number] Implanted:Qty : 1 on 04/16/2024 by Samson Dennis MD at [place] [facility] [place] Left: Iliac [employer] [id number] 12/29/2026 [id number] / [id number] / [id number] documented as of this encounter Visit Diagnoses Diagnosis Irritable bowel syndrome with constipation- Primary Irritable bowel syndrome Acute blood loss anemia Acute posthemorrhagic anemia Iron deficiency anemia, unspecified iron deficiency anemia type Rectal bleeding Hemorrhage of rectum and anus documented in this encounter Administered Medications Inactive Administered Medications - up to 3 most recent administrations Medication Order MAR Action Action Date Dose Rate Site Polyethylene Glycol 3350 (Miralax) oral powder 17 g 17 g (1 Packet), Oral, ONCE, On Sat08/17/24 at 0800, For 1 dose, Mix in 8 oz of water, juice, soda, coffee, or tea.Indications:Iron deficiency anemia, unspecified iron deficiency anemia type Given 08/17/2024 7:46 AM EDT 17 g Simethicone (Mylicon) chew tab 80 mg 80 mg, Oral, ONCE, On Sat08/17/24 at 0800, For 1 dose, Tablets need to be chewed before swallowing!Indications:Iron deficiency anemia, unspecified iron deficiency anemia type Given 08/17/2024 7:46 AM EDT 80 mg documented in this encounter Advance Directives * [...] Discussed due to patient's condition Care Teams Dental Technologist Relationship Specialty Start Date End Date Bharati Wang MD [address] [place] [address] [place] [phone] PCP - General Family Medicine 10/02/21 documented as of this encounter
--- OUTSIDE RECORDS SUMMARY | 2024-08-23 23:37 | External Medical Summary | Summary of Care ---
Author Name Unknown Organization [facility] Address [address] [place] [address] Phone [phone] Care Team Providers Care Straight Pin Making Machine Operator Name Role Phone Bharati Wang MD Primary Care Provide r Reason for Visit * Reason Onset Date Comments Follow Up 08/18/2024 Encounter Details Date Type Department Care Team (Late st Contact Info) Description 08/18/2024 [facility]phone [facility] [place] [address] Nurse Dale Andre [facility] 132 [facility] [place] [address] Follow Up Allergies Active Allergy Reactions Criticality [...] Nasal Suspension (Flonase)Indica tions:Nasal congestion Administer 1 [place] into nostril in the morning. 16 g 5 Active Pantoprazole Sodium 40 MG Oral Packet (Protonix) Take 40 mg by mouth in the morning and 40 mg before bedtime. 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 Pt had a BM this morning, but did not notice if she passed capsule. Pt denies, pain, N/V or any other sx. Will call office with questions/concerns or if she feels she did not pass capsule. Advised again no MRI's till sure VCE has passed. To ED if any of the above sx occur after clinic hours. Pt and voiced understanding. documented in this encounter Plan of Treatment Upcoming Encounters Date Type Department Care Team (Late st Contact Info) Description 08/25/2024 10:00 AM EDT Office Visit Family [address] [place] [phone] Bharati Wang MD [address] [place] [address] [place] [address] 08/26/2024 1:00 PM EDT Imaging Vascular Lab, [address] [facility] [place] [phone] 08/26/2024 2:00 PM EDT Imaging Vascular Lab, [address] [facility] [phone] 09/02/2024 2:30 PM EDT Office Visit Vascular Surgery, [facility] [address] [facility] [phone] Fletcher Alford MD [address] [place] [address] 09/10/2024 11:30 AM EDT Office Visit Neurosurgery, [place] [address] [place] [address] Yann Jackson MD [address] [place] [address] 09/18/2024 12:00 PM EDT Appointment Vascular Lab [facility] [address] [place] [address] 09/18/2024 12:30 PM EDT Appointment Vascular Lab [place] [address] [place], [place] [phone] 09/18/2024 1:20 PM EDT Office Visit Vascular Surg [facility] [address] [place] [address] Samson Dennis MD [address] [place] [address] 09/24/2024 11:30 AM EDT Office Visit Gastroenterology, [facility] [address] [place] [phone] Ester Wilson CRNP [address] [place] [address] 10/13/2024 10:00 AM EDT Office Visit Family Medicine [address] [phone] Bharati Wang MD [address] [place] [address] [place] [address] Scheduled Procedures Name Priority Associated Diagnoses Date/Ti [...] D LEVEL ONCE IN A LIFETIME-USE SMARTSET# 16928 Completed 02/12/2018, 04/25/2015, 09/24/2014, Additional history exists [...] this encounter Medical Devices Implanted Type Area Mathematical Sciences Professor Device Identifier Shelf Expiration Date Model / Serial / Lot Coil Target 3d [id number] - [id number] Implanted:Qty : 1 on 04/15/2024 [place]ann Jackson [place] [facility] [place] Head ANNAMARIA : NEUROVASCULAR [id number] 12/16/2024 [id number] 60 / / [id number] 6cm, Coil Swiftpac Implanted:Qty : 1 on 04/15/2024 by Yann Jackson MD [place] [facility] [place]: Head [employer] 12/16/2028 [id number] / / [id number] 45cm, Coil Swiftpac Implanted:Qty : 1 on 04/15/2024 by Yann Jackson MD [place] [facility] [place]: Head [employer] 12/16/2028 [id number] / / [id number] 60cm, Coil Swiftpac Implanted:Qty : 1 on 04/15/2024 by Yann Jackson MD [place] [facility] [place]: Head [employer] 11/02/2028 [id number] / / [id number] Coil Target 3d [id number] - [id number] Implanted:Qty : 1 on 04/15/2024 by Yann Jackson MD [place] [facility] [place]: Head ANNAMARIA : NEUROVASCULAR [id number] 12/24/2024 [id number] 60 / / [id number] Coil Target 360 Soft 1ztm62dm - [id number] Implanted:Qty : 1 on 04/15/2024 by Yann Jackson MD [place] [facility] [place]: Head ANNAMARIA : NEUROVASCULAR [id number] 06/23/2025 [id number] / / [id number] Coil Target 360 Ultra [id number] - [id number] Implanted:Qty : 1 on 04/15/2024 by Yann Jackosn MD [place] [facility] [place]: Head ANNAMARIA : NEUROVASCULAR [id number] 05/04/2026 [id number] / / [id number] Coil Target 360 Ultra [id number] - [id number] Implanted:Qty : 1 on 04/15/2024 by Yann Jackson MD [place] [facility] [place]: Head ANNAMARIA : NEUROVASCULAR [id number] 02/03/2025 [id number] 80 / / [id number] 10cm, Coil Swiftpac Implanted:Qty : 2 on 04/15/2024 by Yann Jackson MD [place] [facility] [place]: Head [employer] 12/24/2028 [id number] / / [id number] 30cm, Coil Swiftpac Implanted:Qty : 1 on 04/15/2024 by Yann Jackson MD [place] [facility] [place]A: Head [employer] 12/24/2028 [id number] / / [id number] 60cm, Coil Swiftpac Implanted:Qty : 1 on 04/15/2024 by Yann Jackson MD [place] [facility] [place]A: Head [employer] 11/02/2028 [id number] / / [id number] 6cm, Coil Swiftpac Implanted:Qty : 1 on 04/15/2024 by Yann Jackson MD [place] [facility] [place]: Head [employer] 12/16/2028 [id number] / / [id number] Stent Vasc Hep 8mmx7.2o996cs - [id number] Implanted:Qty : 1 on 04/16/2024 by Samson Dennis MD [place] [facility] [place] Left: Iliac [employer] [id number] 12/29/2026 [id number] / [id number] / [id number] documented as of this encounter Advance Directives [...] Discussed due to patient's condition Care Teams Straight Pin Making Machine Operator Relationship Specialty Start Date End Date Bharati Wang MD [address] [place] [address] [place] [phone] PCP - General Family Medicine 10/02/21 documented as of this encounter
--- OUTSIDE RECORDS SUMMARY | 2024-08-23 23:37 | External Medical Summary | Summary of Care ---
Author Name Unknown Organization [facility] Address [address] [place] [address] Phone [phone] Care Team Providers Care Hotel Or Motel Room Service Supervisor Name Role Phone Bharati Wang MD Primary Care Provide r Reason for Referral * Precert (Within 10 days (routine)) - Authorized Specialty Diagnoses / Procedures Referred By Cinda mane Referred To Contact Radiology Diagnoses Irritable bowel syndrome with constipation Acute blood loss anemia Iron deficiency anemia, unspecified iron deficiency anemia type Rectal bleeding Procedures GI TRACT IMAGING, CAPSULE, SMALL Gastroenterology, [address] [address] Phone: tel: fax: Referral ID Status Reason Start Date Expiration Date V isits Requested Visits Authorized [id number] Authorized 08/17/2024 999 999 Reason for Visit * Reason Onset Date Comments Office Procedure Pt here for VCE . NPO 10PM last night. Endoscopy (Op Note) 08/17/2024 Capsule Encounter Details Date Type Department Care Team (Late st Contact Info) Description 08/17/2024 7:30 AM EDT Nurse Only Gastroenterology, [facility] [address] [facility] [address] Nurse Dale [address] [place] [address] Office Procedure (Pt here for VCE. NPO [...] as of this encounter (statuses as of 08/17/2024) Medications VITAMIN D 2000 UNITS PO CAPS [...] Nasal Suspension (Flonase)Indica tions:Nasal congestion Administer 1 [place] into nostril in the morning. 16 g [...] as of this encounter (statuses as of 08/17/2024) Active Problems Problem Noted Date Diagnosed Date [...] as of this encounter (statuses as of 08/17/2024) Resolved Problems Problem Noted Date Diagnosed Date [...] fracture of humerus 08/07/2019 01/22/2024 Overview (08/10/2019): [facility] Bilateral sciatica 06/01/2019 Spasm of muscle [...] as of this encounter (statuses as of 08/17/2024) Immunizations Name Administration Dates Next Due COVID-19 mRNA, LNP-s, No Pre serve, 2-Dose Series (Moderna) 07/24/2020,06/26/2020 COVID-19, mRNA, LNP-s, PF, B ooster, 100mcg/0.5mg (Moderna) 03/28/2021 Covid-19, Mrna, Lnp-s, Pf, B ivalent, 30 Mcg, IM, 12 yrs and above (TripIt) 02/27/2022 Pneumococcal Conjugate Vacc, 13 Valent (Prevnar) [...] Job Start Date Job End Date 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 Not on file Not on [...] once the recording is complete) Please call [phone], option #2 with questions. documented in this encounter Progress Notes * Caroline Lyles CMA - 08/17/2024 7:36 [...] 10:00 AM EDT Office Visit Family Medicine [address] [place] [phone] Bharati Wang MD [address] [place] [address] [place] [address] 08/26/2024 1:00 PM EDT Imaging Vascular Lab, [facility] 2nd [facility] [address] [place] [address] 08/26/2024 2:00 PM EDT Imaging Vascular Lab, [address] [place] [address] 09/02/2024 2:30 PM EDT Office Visit Vascular Surgery, [facility] [address] [place] [address] Fletcher Alford MD [address] [place] [address] 09/10/2024 11:30 AM EDT Office Visit Neurosurgery, [place] [address] [place] [address] Yann Jackson MD [address] [place] [address] 09/18/2024 12:00 PM EDT Appointment Vascular Lab [facility] [address] [place] [address] 09/18/2024 12:30 PM EDT Appointment Vascular Lab [place] [address] [place] [address] 09/18/2024 1:20 PM EDT Office Visit Vascular Surg [facility] [address] [place] [address] Samson Dennis MD [address] [place] [address] 09/24/2024 11:30 AM EDT Office Visit Gastroenterology, [facility] [address] [place] [phone] Ester Wilson CRNP [address] [place] [address] 10/13/2024 10:00 AM EDT Office Visit [address] [place] [phone] Bharati Wang MD [address] [place] [address] [place] [address] Scheduled Orders Name Type Priority Associated Diagnoses [...] D LEVEL ONCE IN A LIFETIME-USE SMARTSET# [id number] Completed 02/12/2018, 04/25/2015, 09/24/2014, Additional history exists [...] this encounter Medical Devices Implanted Type Area Lumber Tripper Device Identifier Shelf Expiration Date Model / Serial / Lot Coil Target 3d [id number] - [id number] Implanted:Qty : 1 on 04/15/2024 by Yann Jackson MD [place] [facility] [place]: Head ANNAMARIA : NEUROVASCULAR [id number] 12/16/2024 [id number] 60 / / [id number] 6cm, Coil Swiftpac Implanted:Qty : 1 on 04/15/2024 by Yann Jackson MD [place] [facility] [place]A: Head [employer] 12/16/2028 [id number] / / [id number] 45cm, Coil Swiftpac Implanted:Qty : 1 on 04/15/2024 by Yann Jackson MD at [place] [facility] N/A: Head [employer] 12/16/2028 [id number] / / [id number] 60cm, Coil Swiftpac Implanted:Qty : 1 on 04/15/2024 by Yann Jackson MD at [place] [facility] [place]/A: Head [employer] 11/02/2028 [id number] / / [id number] Coil Target 3d 0pwf0bz - [id number] Implanted:Qty : 1 on 04/15/2024 by Yann Jackson MD at [place] [facility] [place]A: Head ANNAMARIA : NEUROVASCULAR [id number] 12/24/2024 [id number] 60 / / [id number] Coil Target 360 Soft 6hxr76gm - [id number] Implanted:Qty : 1 on 04/15/2024 by Yann Jackson MD [place] [facility] [place]A: Head ANNAMARIA : NEUROVASCULAR [id number] 06/23/2025 [id number] / / [id number] Coil Target 360 Ultra 7fgr80nx - [id number] Implanted:Qty : 1 on 04/15/2024 by Yann Jackson MD at [place] [facility] N/A: Head ANNAMARIA : NEUROVASCULAR [id number] 05/04/2026 [id number] / / [id number] Coil Target 360 Ultra 2kia4lg - [id number] Implanted:Qty : 1 on 04/15/2024 by Yann Jackson MD at [place] [facility] N/A: Head ANNAMARIA : NEUROVASCULAR [id number] 02/03/2025 [id number] 80 / / [id number] 10cm, Coil Swiftpac Implanted:Qty : 2 on 04/15/2024 by Yann Jackson MD at [place] [facility] N/A: Head [employer] 12/24/2028 [id number] / / [id number] 30cm, Coil Swiftpac Implanted:Qty : 1 on 04/15/2024 by Yann Jackson MD at [place] [facility] N/A: Head [employer] 12/24/2028 [id number] / / [id number] 60cm, Coil Swiftpac Implanted:Qty : 1 on 04/15/2024 by Yann Jackson MD at [place] [facility] N/A: Head [employer] 11/02/2028 [id number] / / [id number] 6cm, Coil Swiftpac Implanted:Qty : 1 on 04/15/2024 by Yann Jackson MD at [place] [facility] N/A: Head [employer] 12/16/2028 [id number] / / [id number] Stent Vasc Hep 8mmx7.6z442lh - [id number] Implanted:Qty : 1 on 04/16/2024 by Samson Dennis MD at [place] [facility] Left: Iliac [employer] [id number] 12/29/2026 [id number] / [id number] / [id number] documented as of this encounter Visit Diagnoses [...] Discussed due to patient's condition Care Teams Hotel Or Motel Room Service Supervisor Relationship Specialty Start Date End Date Bharati Wang MD [address] [place] [address] [place] [address] PCP - General Family Medicine 10/02/21 documented as of this encounter
--- OUTSIDE RECORDS SUMMARY | 2024-08-23 23:38 | External Medical Summary | Summary of Care ---
Author Name Unknown Organization [facility] Address [address] [place] [address] Phone [phone] Care Team Providers Care Junior Assistant Manager Name Role Phone Bharati Wang MD Primary Care Provide r Encounter Details Date Type Department Care Team (Late st Contact Info) Description 08/13/2024 Orders Only Gastroenterology, [facility] [address] [place] [address] Ester Wilson CRNP [address] [place] [address] Iron deficiency anemia, unspecified iron deficiency anemia type* Allergies Active Allergy Reactions Criticality Noted Date [...] as of this encounter (statuses as of 08/13/2024) Medications VITAMIN D 2000 UNITS PO CAPS [...] Nasal Suspension (Flonase)Indica tions:Nasal congestion Administer 1 [place] into nostril in the morning. 16 g 5 Active Pantoprazole Sodium 40 MG Oral Packet (Protonix) Take 40 mg by mouth in the morning and 40 mg before bedtime. 30 Each 2 5 Active Hospital, Clinic, or Other Facility Administered Medication Ordered Dose Route Frequency Start Date End Date Status Simethicone (Mylicon) chew tab 80 mgIndications:Iron deficiency anemia, unspecified iron deficiency anemia type 80 mg OR ONCE 08/17/2024 08/17/2024 Active Polyethylene Glycol 3350 (Miralax) oral powder 17 gIndications:Iron deficiency anemia, unspecified iron deficiency anemia type 17 g OR ONCE 08/17/2024 08/17/2024 Active documented as of this encounter (statuses as of 08/13/2024) Active Problems Problem Noted Date Diagnosed Date [...] as of this encounter (statuses as of 08/13/2024) Resolved Problems Problem Noted Date Diagnosed Date [...] fracture of humerus 08/07/2019 01/22/2024 Overview (08/10/2019): [place] [facility] Bilateral sciatica 06/01/2019 4 Spasm of [...] as of this encounter (statuses as of 08/13/2024) Immunizations Name Administration Dates Next Due COVID-19 [...] No 04/20/2024 Does the household have a [facility] hospit[facility] source of income? 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 Not on file Not on file Not on file documented as of this encounter Plan of Treatment Upcoming Encounters Date Type Department Care Team (Late st Contact Info) Description 08/17/2024 7:30 AM EDT [facility] [address] [place] [address] [place] Nurse Dale [facility] [address] [place] [address] 08/25/2024 10:00 AM EDT Office Visit [address] [place] [phone] Bharati Wang MD [address] [place] [address] [place] [address] 08/26/2024 1:00 PM EDT Imaging Vascular Lab, [facility] [address]nd [place] [address] [place] [phone] 08/26/2024 2:00 PM EDT Imaging Vascular Lab, [place] [address] [place] [phone] 09/02/2024 2:30 PM EDT Office Visit Vascular Surgery, [facility] [address] [place] [phone] Fletcher Alford MD [address] [place] [facility] [place] [address] 09/10/2024 11:30 AM EDT Office Visit Neurosurgery, [place] [address] [place] [address] Yann Jackson MD [address] [place] [facility] [place] [phone] 09/18/2024 12:00 PM EDT Appointment Vascular Lab [facility] [address] [place] [address] 09/18/2024 12:30 PM EDT Appointment Vascular Lab [facility] [address] [place] [address] 09/18/2024 1:20 PM EDT Office Visit Vascular Surg [place] [address] [place] [address] Samson Dennis MD [address] [place] [address] 09/24/2024 11:30 AM EDT Office Visit Gastroenterology, [facility] [address] [place] [address] Ester Wilson CRNP [address] [place] [address] 10/13/2024 10:00 AM EDT Office Visit [address] [place] [phone] Bharati Wang MD [address] [place] [address] [place] [address] Scheduled Procedures Name Priority Associated Diagnoses Date/Ti [...] D LEVEL ONCE IN A LIFETIME-USE SMARTSET# [id number] Completed 02/12/2018, 04/25/2015, 09/24/2014, Additional history exists [...] this encounter Medical Devices Implanted Type Area Car Stower Device Identifier Shelf Expiration Date Model / Serial / Lot Coil Target 3d 7lix6ft - [id number] Implanted:Qty : 1 on 04/15/2024 by Yann Jackson MD [place] [facility] [place] Head ANNAMARIA : NEUROVASCULAR [id number] 12/16/2024 [id number] 60 / / [id number] 6cm, Coil Swiftpac Implanted:Qty : 1 on 04/15/2024 by Yann Jackson MD [place] [facility] [place]: Head [employer] 12/16/2028 [id number] / / [id number] 45cm, Coil Swiftpac Implanted:Qty : 1 on 04/15/2024 by Yann Jackson MD at [place] [facility] [place] [place]/A: Head [employer] 12/16/2028 [id number] / / [id number] 60cm, Coil Swiftpac Implanted:Qty : 1 on 04/15/2024 by Yann Jackson MD at [place] [facility]/A: Head [employer] 11/02/2028 [id number] / / [id number] Coil Target 3d 2owj4zj - [id number] Implanted:Qty : 1 on 04/15/2024 by Yann Jackson MD at [place] [facility]: Head ANNAMARIA : NEUROVASCULAR [id number] 12/24/2024 [id number] 60 / / [id number] Coil Target 360 Soft 9wiu81mb - [id number] Implanted:Qty : 1 on 04/15/2024 by Yann Jackson MD at [place] [facility] [place]/A: Head ANNAMARIA : NEUROVASCULAR [id number] 06/23/2025 [id number] / / [id number] Coil Target 360 Ultra 5rzp61ay - [id number] Implanted:Qty : 1 on 04/15/2024 by Yann Jackson MD at [place] [facility] [place]/A: Head ANNAMARIA : NEUROVASCULAR [id number] 05/04/2026 [id number] 00 / / [id number] Coil Target 360 Ultra 4ccz4ml - [id number] Implanted:Qty : 1 on 04/15/2024 by Yann Jackson MD at [place] [facility] [place]/A: Head ANNAMARIA : NEUROVASCULAR [id number] 02/03/2025 [id number] 80 / / [id number] 10cm, Coil Swiftpac Implanted:Qty : 2 on 04/15/2024 by Yann Jackson MD at [place] [facility] N/A: Head [employer] 12/24/2028 [id number] / / [id number] 30cm, Coil Swiftpac Implanted:Qty : 1 on 04/15/2024 by Yann Jackson MD at OR [facility] N/A: Head [employer] 12/24/2028 [id number] / / [id number] 60cm, Coil Swiftpac Implanted:Qty : 1 on 04/15/2024 by Yann Jackson MD at [place] [facility] N/A: Head [employer] 11/02/2028 [id number] / / [id number] 6cm, Coil Swiftpac Implanted:Qty : 1 on 04/15/2024 by Yann Jackson MD at [place] [facility] N/A: Head [employer] 12/16/2028 [id number] / / [id number] Stent Vasc Hep 8mmx7.3k179jh - [id number] Implanted:Qty : 1 on 04/16/2024 by Samson Dennis MD at [place] [facility] Left: Iliac [employer] [id number] 12/29/2026 [id number] / [id number] / [id number] documented as of this encounter Visit Diagnoses Diagnosis Iron deficiency anemia, unspecified iron deficiency anemia type- Primary documented in this encounter Advance Directives * [...] Discussed due to patient's condition Care Teams Junior Assistant Manager Relationship Specialty Start Date End Date Bharati Wang MD [address] [place] [address] [place] [address] PCP - General Family Medicine 10/02/21 documented as of this encounter
--- OUTSIDE RECORDS SUMMARY | 2024-08-23 23:38 | External Medical Summary | Summary of Care ---
Author Name Unknown Organization [facility] Address [address] [place] [address] Phone [phone] Care Team Providers Care Reamer Hand Name Role Phone Bharati Wang MD Primary Care Provide r Reason for Visit * Reason Onset Date Comments Hospital Follow-Up Hospital Follow-Up 08/11/2024 Encounter Details Date Type Department Care Team (Late st Contact Info) Description 08/11/2024 9:00 AM EDT Office Visit Family Medicine [address] [place] [address] Bharati Wang MD [address] [place] [address] [place] [address] Iron deficiency anemia, unspecified iron deficiency anemia type*; HTN, goal below 140/90; S/P insertion of iliac artery stent; Hospital discharge follow-up Allergies Active Allergy Reactions Criticality Noted Date [...] as of this encounter (statuses as of 08/11/2024) Medications VITAMIN D 2000 UNITS PO CAPS [...] Nasal Suspension (Flonase)Indic ations:Nasal congestion Administer 1 Motley into nostril in the morning. 16 g 5 Active Pantoprazole Sodium 40 MG Oral Packet (Protonix) Take 40 mg by mouth in the morning and 40 mg before bedtime. 30 Each 2 5 Active Loratadine 10 MG Oral Tablet (Claritin)Yamileth cations:Nasal congestion Take 1 Tablet by mouth every night at bedtime. 30 Tablet 11 3 08/12/19 25 Discontinu ed(Medicat ion List Clean Up) documented as of this encounter (statuses as of 08/11/2024) Active Problems Problem Noted Date Diagnosed Date [...] as of this encounter (statuses as of 08/11/2024) Resolved Problems Problem Noted Date Diagnosed Date [...] as of this encounter (statuses as of 08/11/2024) Immunizations Name Administration Dates Next Due COVID-19 [...] No 04/20/2024 Does the household have a [facility] source of income? 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 Not on file Not on file Not on file documented as of this encounter Last Filed Vital Signs Vital Sign Reading Time Taken Comments Blood Pressure 136/78 08/11/2024 8:53 AM EDT Pulse 73 08/11/2024 8:53 AM EDT Temperature 35.7 C (96.2 F) 08/11/2024 8:53 AM ED T Respiratory Rate - - Oxygen Saturation 97% 08/11/2024 8:53 AM EDT Inhaled Oxygen Concentration - - Weight 73.7 kg (162 lb 6.4 oz) 08/11/2024 8:53 A M EDT Height - - Body Mass Index 27.88 07/24/2024 12:41 PM EST documented in this encounter Progress Notes * Bharati Wang MD - 08/11/2024 8:59 AM EDT Subjective: HPI: Josefa Ramírez is a 88 [...] Pt was admitted to the hospital from 07/30-08/06 Melena: - CTA Abd: no active bleeding - hgb was 7.4 --- s/p 1 PRBC - EGD: small hiatal hernia, esophagitis (no bleeding) - repeat FOBT was neg -vascular surgery: recommended restart plavix - discharge hgb was 9 Today: - getting the iron infusion sushila - denied any black stool - feeling better - still taking plavix - not taking aspirin or eliquis - taking protonix - video capsule next Saturday Patient Active Problem List Diagnosis Irritable bowel [...] of thromboembolism Thromboembolus (HCC) Iron deficiency anemia HTN, goal below 140/90 Benign hypertension with CKD (chronic kidney disease), stage II Current Outpatient Medications Medication Sig Dispense Refill VITAMIN D 2000 UNITS PO CAPS Take 1 Capsule by mouth daily with dinner. TYLENOL EX ST ARTHRITIS PAIN 500 MG PO TABS Take by mouth. Cyanocobalamin 1000 MCG Oral Tablet Take 1 Tablet by mouth daily at noon. amLODIPine Besylate 5 MG Oral Tablet (Norvasc) [...] mouth in the morning. 90 Tablet 1 Fluticasone Propionate 50 MCG/ACT Nasal Suspension (Flonase) Administer 1 Motley into nostril in themorning. 16 g 0 Pantoprazole Sodium 40 MG Oral Packet (Protonix) Take 40 mg by mouth in the morning and 40 mg before bedtime. 30 Each 2 Loratadine 10 MG Oral Tablet (Claritin) Take [...] - 2006-10-15 COPD, severity to be determined ([facility]) COVID-19 11/24/2021 home test positive, treated with [...] of humerus, left, closed, initial encounter 08/07/2019 [facility] HTN, goal below 130/80 04/19/2009 Hypercalcemia 09/2008 Kidney disease, chronic, stage III (GFR 30-59 ml/min) ([facility]) Need for prophylactic hormone replacement therapy (postmenopausal) [...] performed by Samson Dennis MDat OR [facility] BLEPHAROPTOSIS, FRONTALIS, REPAIR Bilateral 08/10/2015 CAROTID (INTERNAL) ARTERY CATHETHER PLACEMENT Bilateral 03/27/2024 CATHETER PLACEMENT INTERNAL CAROTID ARTERY RADIAL ACCESS performed by Yann Jackson MD at OR [facility] CAROTID (INTERNAL) ARTERY CATHETHER PLACEMENT Bilateral 04/15/2024 CATHETER PLACEMENT INTERNAL CAROTID ARTERY performed by Yann Jackson MD at OR [facility] CAROTID (EXTERNAL) ARTERY CATHETHER PLACEMENT Bilateral 03/27/2024 CATHETER PLACEMENT EXTERNAL CAROTID ARTERY performed by Yann Jackson MD at OR [facility] CAROTID (EXTERNAL) ARTERY CATHETHER PLACEMENT Bilateral 04/15/2024 CATHETER PLACEMENT EXTERNAL CAROTID ARTERY performed by Yann Jackson MD at OR [facility] CATHETER OCCLUSION/EMBOLIZATION,TRANSFORMER SHOP SUPERVISOR N/A 04/15/2024 TRANSCATHETER PERMANENT ARTERIAL OCCLUSION CENTRAL NERVOUS SYSTEM performed by Yann Jackson MD at OR [facility] CERVICAL LAMINOPLAST W/DECOMP,RECON 06/17/2006 Dr. Potts COLONOSCOPY, DIAGNOSTIC (RECTUM) 03/08/2015 adenomatous polyps, repeat 5 yrs/COLONOSCOPY FLEXIBLE PROXIMAL DIAGNOSTIC performed by Rene Elise MD at ENDOSCOPY [facility] COLONOSCOPY, DIAGNOSTIC (RECTUM) 07/27/2020 benign adenomatous polyps / COLONOSCOPY FLEXIBLE PROXIMAL DIAGNOSTIC performed by Rene Elise MD at [facility] COLONOSCOPY, GI REFERRAL OP 01/16/2005 Dr. Mcneil - diverticulosis CT SINUSES W WO CONTRAST 06/06/2006 air fluid levels in bilateral maxillary and sphenoid sinuses, frontal sinus opacified, mucosal thickening of ethmoids, left osteomeatal complex opacified, left nasal septal deviation EGD, FLEXIBLE, DIAGNOSTIC 11/14/2020 Barretts, hiatal hernia, repeat 6 mo / ESOPHAGOGASTRODUODENOSCOPY (EGD), FLEXIBLE, TRANSORAL, DIAGNOSTIC performed by Santi Edwards MD at [facility] EGD, FLEXIBLE, DIAGNOSTIC 08/29/2021 Barretts, hiatal hernia, repeat 2 yrs / ESOPHAGOGASTRODUODENOSCOPY (EGD), FLEXIBLE, TRANSORAL, DIAGNOSTIC performed by Santi Edwards MD at [facility] EGD, FLEXIBLE, DIAGNOSTIC 09/30/2020 Bleeding esophagitis with underlying Contreras's esophagus, repeat 6 wks / INPT [facility] EGD, FLEXIBLE, W/BIOPSY 08/16/2006 path-no abnormalities FULL PULMONARY FUNCTION TEST 05/2000 HEMORRHOIDECTOMY, SIMPLE, 1 COLUMN Remote past ILIAC ART. REVASC W/ STENT+ANGIOPLASTY 04/16/2024 ILIAC ARTERY REVASC W/ STENT+ANGIOPLASTY performed by Samson Dennis MD at OR [facility] INTRACRANIAL ARTERIES CATH PLACEMENT Bilateral 04/15/2024 CATHETER PLACEMENT EACH INTRACRANIAL BRANCH OF THE INTERNAL CAROTID OR VERTEBRAL ARTERIES performedby Yann Jackson MD at OR [facility] IR ARTERIOGRAM EXTREMITY UNILATERAL 04/16/2024 IMAGING SUPERVISION & INTERPRETATION EXTREMITY UNILATERAL performed by Samson Dennis MD at [facility] L-/S-SPINE PARAVERTEBRAL FACET INJ,1 LEVEL 02/09/2019 L-/S-SPINE PARAVERTEBRAL FACET INJ, 1 LEVEL performed by [place] Dioni Caballero DO at [facility] L-/S-SPINE PARAVERTEBRL FACET INJ,2 LEVELS 02/09/2019 L-/S-SPINE PARAVERTEBRAL FACET INJ, 2 LEVELS performed by [place] Dioni Caballero DO at OR [facility] LUMBAR DISC ARTHROPLAST,REMV,ADDL INTERSPCE 01/2010 Dr Potts LUMBAR SPINE FUSION W/BONE GRAFT 02/23/2005 Dr. Potts - [facility] LUMBAR SPINE FUSION W/BONE GRAFT 07/19/2016 Dr. Potts - [facility] MAMMOGRAM SCREENING-BILATERAL 02/1999 REMOVAL OF OVARY/OVIDUCT(S) 18 yo right REMOVE CATARACT, INSERT LENS PROSTH 12/2004 bilateral - [facility] REMOVE GALLBLADDER REVERSE TOTAL SHOULDER ARTHROPLASTY Left 09/29/2020 [facility] SACROILIAC JOINT INJECT W/GUIDANCE 11/13/2018 INJECTION SACROILIAC JOINT performed by Chris Caballero DO at OR [facility] SACROILIAC JOINT INJECT W/GUIDANCE 12/11/2018 INJECTION SACROILIAC JOINT performed by [place] Dioni Caballero DO at OR [facility] SHOULDER ARTHROSCOPY/SURGERY 06/07/2010 [facility] - [facility]- right shoulder repair SPINAL FUSION, LUMBAR, COMBINED 07/19/2016 Dr. Potts- [facility] TOTAL ABD HYSTERECTOMY W/WO REMOVAL OF TUBE(S) 26 yo one ovary still in VERTEBRAL ARTERY CATHETER PLACEMENT Bilateral 03/27/2024 CATHETER PLACEMENT VERTEBRAL ARTERY, performed by Yann Jackson MD at [facility] VERTEBRAL ARTERY CATHETER PLACEMENT Bilateral 04/15/2024 CATHETER PLACEMENT VERTEBRAL ARTERY, performed by Yann Jackson MD at OR [facility] Review of patient's allergies indicates: Allergen Reactions Cephalosporins Other Reaction(s): Hives Cilastatin Other Reaction(s): Dyspnea Imipenem Other Reaction(s): Dyspnea Meropenem Other Reaction(s): Dyspnea Penicillamine Other Reaction(s): Dyspnea Ranitidine Other Reaction(s): Dyspnea Ampicillin Hives/trouble breathing Azithromycin hives and angioedema Carbapenems Other Reaction(s): Dyspnea Family History Problem Relation Name Age of Onset Other (CAD) Father Hypertension Mother Social History Tobacco Use Smoking status: Every Day Current packs/day: 1.00 Average packs/day: 1 pack/day for 57.8 years (57.8 ttl pk-yrs) Types: Cigarettes Start date: 1965 Smokeless tobacco: Never Tobacco comments: 06/19/24 1/2 pack daily, declined pamphlet Substance Use Topics Alcohol use: No Vaping/E-Cigarette Use Vaping/E-Cigarette Use Never User Vaping/E-Cigarette Substances Vaping/E-Cigarette Devices ROS: -Per HPI OBJECTIVE: BP 136/78 | Pulse 73 | Temp 96.2 F (35.7 C) | Wt 162 lb 6.4 oz (73.7 kg) | SpO2 97% | BMI 27.88kg/m | BSA 1.82 m PHYSICAL EXAM: Vitals are reviewed General:. NAD, well developed HEENT:. Normal Conjunctiva, EOMI Cardiac:. Normal S1, S2, no murmur Lungs:. CTA, no wheezing or crackles Abd:. soft, ND, NT MSK:. Normal gait Psych:. AAOx3, normal affect ASSESSMENT/PLAN: Pt is doing better Will get CBC after the iron infusion VSS normal in the clinic Continue protonix 40mg daily Tolerating plavix well Iron deficiency anemia, unspecified iron deficiency anemia type (Primary) - CBC WITH WBC DIFFERENTIAL AND ANEMIA REFLEX WORKUP; Future; Expected date: 08/13/2024 HTN, goal below 140/90 S/P insertion of iliac artery stent Follow Up: Return in about 2 months (around 2024). I spent a total of 40-54 minutes (exact time 43 mins) on the date of service in preparation, delivery, and documentation of the care provided to Josefa Ramírez excluding any time spent in the performance of separately billed services or time spent by another provider/QHP. Bharati Wang MD Family medicine, [address] [address] documented in this encounter Nursing Notes * Sandra Recinos CMA - 08/11/2024 8:51 AM EDT She is here for follow up from hospital discharge. [facility] 08/06 for anemia. documented in this encounter Plan of Treatment Upcoming Encounters Date Type Department Care Team (Late st Contact Info) Description 08/12/2024 12:00 PM EDT Hem/Onc Treatment Hematology/Oncology Treatment, [address] [place] [phone] Park, Chair 6 Hem [address]c [address] [address] 08/17/2024 7:30 AM EDT Nurse Only Gastroenterology, [facility] [address] [facility] [place] [address] Nurse Dale Andre [facility] [address] 08/25/2024 10:00 AM EDT Office Visit Family Medicine [address] [place] [address] Bharati Wang MD [address] [place] [address] [place] [address] 08/26/2024 1:00 PM EDT Imaging Vascular Lab, [facility] 2nd [facility] [place] [address] [place] [phone] 08/26/2024 2:00 PM EDT Imaging Vascular Lab, [facility] [address] [place] [phone] 09/02/2024 2:30 PM EDT Office Visit Vascular Surgery, [facility] [address] [place] [phone] Fletcher Alford MD [address] [place] [address] 09/10/2024 11:30 AM EDT Office Visit Neurosurgery, [place] [address] [place] [address] Yann Jackson MD [address] [place] [phone] 09/18/2024 12:00 PM EDT Appointment Vascular Lab [facility] [address] [place] [address] 09/18/2024 12:30 PM EDT Appointment Vascular Lab [facility] [address] [place] [address] 09/18/2024 1:20 PM EDT Office Visit Vascular Surg [facility], [place] [address] [place] [address] Samson Dennis MD [address] [place] [address] 09/24/2024 11:30 AM EDT Office Visit Gastroenterology, [facility] [address] [place] [phone] Ester Wilson CRNP [address] [place] [address] 10/13/2024 10:00 AM EDT Office Visit [address] [phone] Bharati Wang MD [address] [place] [address] [place] [address] Scheduled Orders Name Type Priority Associated Diagnoses Orde r Schedule CBC WITH WBC DIFFERENTIAL AND ANEMIA REFLEX WORKUP Lab Routine Iron deficiency anemia, unspecified iron deficiency anemia type Expected: 08/13/2024 (Approximate), Expires: 08/11/2025 Scheduled Procedures Name Priority Associated Diagnoses Date/Ti me ESOPHAGOGASTRODUODENOSCOPY ( EGD), FLEXIBLE, TRANSORAL, DIAGNOSTIC Recall Contreras esophagus Health Maintenance Due Date Last Done Comments Alpha-1 Antitrypsin 1953 Adult Wellness Visit 2002 DXA Scan 04/06/2018 04/06/2016, 09/2012, 02/08/2011, Additional history exists DISCUSS TOBACCO CESSATION (REFER TO SMARTSET #3397) 08/01/2018 08/01/2017 (Discussed) DTap/Tdap Vaccines (2 - [...] D LEVEL ONCE IN A LIFETIME-USE SMARTSET# 30696 Completed 02/12/2018, 04/25/2015, 09/24/2014, Additional history exists [...] this encounter Medical Devices Implanted Type Area Ride Attendant Device Identifier Shelf Expiration Date Model / Serial / Lot Coil Target 3d [id number] - [id number] Implanted:Qty : 1 on 04/15/2024 by Yann Jackson MD at OR [facility] N/A: Head ANNAMARIA : NEUROVASCULAR [id number] 12/16/2024 [id number] / / [id number] 6cm, Coil Swiftpac Implanted:Qty : 1 on 04/15/2024 by Yann Jackson MD at OR [facility] N/A: Head [employer] 12/16/2028 [id number] / / [id number] 45cm, Coil Swiftpac Implanted:Qty : 1 on 04/15/2024 by Yann Jackson MD at OR [facility] N/A: Head [employer] 12/16/2028 [id number] / / [id number] 60cm, Coil Swiftpac Implanted:Qty : 1 on 04/15/2024 by Yann Jackson MD at OR [facility] N/A: Head [employer] 11/02/2028 [id number] / / [id number] Coil Target 3d [id number] - [id number] Implanted:Qty : 1 on 04/15/2024 by Yann Jackson MD at OR [facility] N/A: Head ANNAMARIA : NEUROVASCULAR [id number] 12/24/2024 [id number] 60 / / [id number] Coil Target 360 Soft [id number] - [id number] Implanted:Qty : 1 on 04/15/2024 by Yann Jackson MD at OR [facility] N/A: Head ANNAMARIA : NEUROVASCULAR [id number] 06/23/2025 [id number] / / [id number] Coil Target 360 Ultra [id number] - [id number] Implanted:Qty : 1 on 04/15/2024 by Yann Jackson MD at OR [facility] N/A: Head ANNAMARIA : NEUROVASCULAR [id number] 05/04/2026 [id number] / / [id number] Coil Target 360 Ultra [id number] - [id number] Implanted:Qty : 1 on 04/15/2024 by Yann Jackson MD at OR [facility] N/A: Head ANNAMARIA : NEUROVASCULAR [id number] 02/03/2025 [id number] 80 / / [id number] 10cm, Coil [employer] Implanted:Qty : 2 on 04/15/2024 by Yann Jackson MD at OR [facility] N/A: Head [employer] 12/24/2028 [id number] / / [id number] 30cm, Coil [employer]pac Implanted:Qty : 1 on 04/15/2024 by Yann Jackson MD at OR [facility] N/A: Head [employer] 12/24/2028 [id number] / / [id number] 60cm, Coil [employer]pac Implanted:Qty : 1 on 04/15/2024 by Yann Jackson MD at OR [facility] N/A: Head [employer] 11/02/2028 [id number] / / [id number] 6cm, Coil [employer] Implanted:Qty : 1 on 04/15/2024 by Yann Jackson MD at OR [facility] N/A: Head [employer] 12/16/2028 [id number] / / [id number] Stent Vasc Hep [id number] - [id number] Implanted:Qty : 1 on 04/16/2024 by Samson Dennis MD at OR [facility] Left: Iliac [employer] [id number] 12/29/2026 [id number] / [id number] / [id number] documented as of this encounter Visit Diagnoses Diagnosis Iron deficiency anemia, unspecified iron deficiency anemia type- Primary HTN, goal below 140/90 Unspecified essential hypertension S/P insertion of iliac artery stent Other postprocedural status Hospital discharge follow-up Other follow-up examination documented in this encounter Advance Directives * [...] Discussed due to patient's condition Care Teams Reamer Hand Relationship Specialty Start Date End Date Bharati Wang MD [address] [place] [address] [place] [address] PCP - General Family Medicine 10/02/21 documented as of this encounter"
--- OUTSIDE RECORDS SUMMARY | 2024-08-23 23:38 | External Medical Summary ---
Author Name Unknown Address Unknown Organization [id number]:[facility] - [address] [facility] [address] Laboratory Report Ordering Provider Test Date Status BAUTISTA KELLY 08/13/2024 15:17:22 Negra l Observation Date Value Abnormality Reference (Units ) Status SYNC LEUKOCYTES IN BLOOD BY AUTOMATED COUNT 08/13/2024 15:17:22 4.75 4.00-10.80 (K/uL) Final Segs 08/13/2024 15:17:22 58.1 40.0-75.0 (%) Final Lymphs % 08/13/2024 15:17:22 28.8 18.0-42.0 (%) Final Monos 08/13/2024 15:17:22 9.7 1.0-11.0 (%) Final Eosinophils 08/13/2024 15:17:22 2.1 0.0-6.0 (%) Final Basos 08/13/2024 15:17:22 1.1 0.0-2.0 (%) Final Immature Granulocyte, Percent 08/13/2024 15:17:22 0.2 0.0-2.0 (%) Final Absolute Segs 08/13/2024 15:17:22 2.76 1.80-7.70 (K/uL) Final Lymphs, absolute 08/13/2024 15:17:22 1.37 1.00-4.80 (K/ul) Final Monos, Abs 08/13/2024 15:17:22 0.46 0.00-1.10 (K/uL) Final Eos, Abs 08/13/2024 15:17:22 0.10 0.00-0.70 (K/uL) Final Basos, Abs 08/13/2024 15:17:22 0.05 0.00-0.20 (K/uL) Final Immature Granulocytes, Number 08/13/2024 15:17:22 0.01 0.00-0.20 (K/uL) Final Performing Location [facility] - [facility] [place] [address]
--- OUTSIDE RECORDS SUMMARY | 2024-08-23 23:38 | External Medical Summary | Summary of Care ---
Author Name Unknown Organization [facility] Address [address] [place] [address] Phone [phone] Care Team Providers Care Director Auto Name Role Phone Bharati Wang MD Primary Care Provide r Reason for Visit * Reason Comments Infusion 08/28 Venofer Encounter Details Date Type Department Care Team (Latest Contact Info) Description 08/12/2024 12:00 PM EDT Hem/Onc Treatment Hematology/Oncology Treatment, [address] [phone] Claudia, Chair 6 Hem Onc [address] [address] Iron deficiency anemia due to chronic blood [...] Nasal Suspension (Flonase)Indica tions:Nasal congestion Administer 1 [place] into nostril in the morning. 16 g [...] fracture of humerus 08/07/2019 01/22/2024 Overview (08/10/2019): [facility] Bilateral sciatica 06/01/2019 4 Spasm of [...] Does the household have a [facility] source of income? 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 Goals: Patient will remain free from injury. Possible barriers to meeting goals: Potential of malfunction of IV site Stability of the patient: Moderately stable - low risk of patient condition declining or worsening Summary regarding today's goals: Not Met: IV site infiltrated. Pt discharged in stable condition. * Harmony Conde LPN - 08/12/2024 1:36 PM EDT During flushing of final 5 minutes; Downstream occlusion registered on IV pump; inspection of IV site showed swelling with bruising appearing above the IV site. IV fluids was stopped; IV access discontinued; site was cleaned and bandaged. Site was wrapped with Ice pack. Patient and advised to remove the ice in 20 minutes and then remove the Coban wrap after 30 minutes. * Gracie Rogers RN - 08/12/2024 12:14 PM EDT Chair 11 Patient here for infusion. PIV started with brisk blood return. Patient instructed on use of heat in chair. Patient shown how to operate the heat function of the chair and to alert nursing staff if the chair feels too warm. Patient instructed on the risk of potential graves while using the heat function. Safety and Risk for Injury Patient will remain free from injury. Ensure appropriate safety devices are available. Provide and maintain safe environment. documented in this encounter Plan of Treatment Upcoming Encounters Date Type Department Care Team (Late st Contact Info) Description 08/17/2024 7:30 AM EDT Nurse Only Gastroenterology, [facility] [address] [place] [address] Nurse Dale [facility] [address] [place], [place] [address] 08/25/2024 10:00 AM EDT Office Visit [address] [place] [phone] Bharati Wang MD [address] [place] [address] [place] [address] 08/26/2024 1:00 PM EDT Imaging Vascular Lab, [facility] [address] [facility] [address] [place] [phone] 08/26/2024 2:00 PM EDT Imaging Vascular Lab, [facility] [address] [facility] [address] [place] [phone] 09/02/2024 2:30 PM EDT Office Visit Vascular Surgery, [facility] [address] [place] [phone] Fletcher Alford MD [address] [place] [address] 09/10/2024 11:30 AM EDT Office Visit Neurosurgery, [place] [address] [place] [address] Yann Jackson MD [address] [place] [phone] 09/18/2024 12:00 PM EDT Appointment Vascular Lab [place] [address], [place] [id number] 09/18/2024 12:30 PM EDT Appointment Vascular Lab [place] [address] [place] [address] 09/18/2024 1:20 PM EDT [facility] [address] [place] [address] Samson Dennis MD [address] [place] [address] 09/24/2024 11:30 AM EDT Office Visit Gastroenterology, [facility] [address] [place] [phone] Ester Wilson CRNP [address] [place] [address] 10/13/2024 10:00 AM EDT Office Visit [facility] [address] [place] [phone] Bharati Wang MD [address] [place] [address] [place] [address] Scheduled Procedures Name Priority Associated Diagnoses Date/Ti [...] D LEVEL ONCE IN A LIFETIME-USE SMARTSET# 99392 Completed 02/12/2018, 04/25/2015, 09/24/2014, Additional history exists [...] this encounter Medical Devices Implanted Type Area Digital Marketing Associate Device Identifier Shelf Expiration Date Model / Serial / Lot Coil Target 3d [id number] - [id number] Implanted:Qty : 1 on 04/15/2024 by Yann Jackson MD at [place] [facility] N/A: Head ANNAMARIA : NEUROVASCULAR [id number] 12/16/2024 [id number] / / [id number] 6cm, Coil Swiftpac Implanted:Qty : 1 on 04/15/2024 by Yann Jackson MD at [facility] N/A: Head [employer] 12/16/2028 [id number] / / [id number] 45cm, Coil Swiftpac Implanted:Qty : 1 on 04/15/2024 by Yann Jackson MD at [facility] N/A: Head [employer] 12/16/2028 [id number] / / [id number] 60cm, Coil Swiftpac Implanted:Qty : 1 on 04/15/2024 by Yann Jackson MD at [facility] N/A: Head [employer] 11/02/2028 [id number] / / [id number] Coil Target 3d 2ocb0tp - [id number] Implanted:Qty : 1 on 04/15/2024 by Yann Jackson MD at [facility] N/A: Head ANNAMARIA : NEUROVASCULAR [id number] 12/24/2024 [id number] 60 / / [id number] Coil Target 360 Soft 6dis80xr - [id number] Implanted:Qty : 1 on 04/15/2024 by Yann Jackson MD at [facility] N/A: Head ANNAMARIA : NEUROVASCULAR [id number] 06/23/2025 [id number] / / [id number] Coil Target 360 Ultra 1tqr16in - [id number] Implanted:Qty : 1 on 04/15/2024 by Yann Jackson MD at [facility] N/A: Head ANNAMARIA : NEUROVASCULAR [id number] 05/04/2026 [id number] 00 / / [id number] Coil Target 360 Ultra 8khq1cj - [id number] Implanted:Qty : 1 on 04/15/2024 by Yann Jackson MD at [facility] N/A: Head ANNAMARIA : NEUROVASCULAR [id number] 02/03/2025 [id number] 80 / / [id number] 10cm, Coil Swiftpac Implanted:Qty : 2 on 04/15/2024 by Yann Jackson MD at [facility] N/A: Head [employer] 12/24/2028 [id number] / / [id number] 30cm, Coil Swiftpac Implanted:Qty : 1 on 04/15/2024 by Yann Jackson MD at [facility] N/A: Head [employer] 12/24/2028 [id number] / / [id number] 60cm, Coil Swiftpac Implanted:Qty : 1 on 04/15/2024 by Yann Jackson MD at [facility] N/A: Head [employer] 11/02/2028 [id number] / / [id number] 6cm, Coil Swiftpac Implanted:Qty : 1 on 04/15/2024 by Yann Jackson MD at [facility] N/A: Head [employer] 12/16/2028 [id number] / / [id number] Stent Vasc Hep 8mmx7.9a299dg - [id number] Implanted:Qty : 1 on 04/16/2024 by Samson Dennis MD at [place] [facility] Left: Iliac [employer] [id number] 12/29/2026 [id number] / [id number] / [id number] documented as of this encounter Visit Diagnoses [...] mg, IV Piggyback, ONCE, 1 dose, On Sat08/12/24 at 1315, Administer over 90 MinutesIndications:Iron deficiency anemia due to chronic blood loss,Acute blood loss anemia Start Infusion 08/12/2024 11:55 AM EDT 300 mg 180 mL/hr NSS infusion 500 mL, Intravenous, at 50 mL/hr, CONTINUOUS, Starting on Sat08/12/24 at 1245, Until Sat08/12/24 at 1759Indications:Iron deficiency anemia due to chronic blood loss,Acute blood loss anemia Start Infusion 08/12/2024 11:53 AM EDT 500 mL 50 mL/hr documented in this [...] due to patient's condition Care Teams Director Auto Relationship Specialty Start Date End Date Bharati Wang MD [address] [place] [address] [place] [address] PCP - General Family Medicine 10/02/21 documented as of this encounter
--- OUTSIDE RECORDS SUMMARY | 2024-08-23 23:38 | External Medical Summary ---
Author Name Unknown Address Unknown Organization K01:LABORATORY [facility] - [address] [facility] [address] Laboratory Report Ordering Provider Test Date Status BAUTISTA KELLY 08/13/2024 15:17:22 Negra l Observation Date Value Abnormality Reference (Units ) Status WBC, Total 08/13/2024 15:17:22 4.75 4.00-10.8 0 (K/uL) Final RBC 08/13/2024 15:17:22 3.61 3.85-5.15 (M/uL) Final Hemoglobin 08/13/2024 15:17:22 9.8 Below low normal 12 .0-15.3 (g/dL) Final Anemia reflex testing trigge rs on a HGB < 12.0 for Females and HGB < 13.0 for Males in accordance with the WHO Anemia Guidelines
Anemia reflex testing triggers on a HGB < 12.0 for Females and HGB < 13.0 for Males in accordance with the WHO Anemia Guidelines HCT 08/13/2024 15:17:22 33.9 Below low normal 36. 0-45.2 (%) Final MCV 08/13/2024 15:17:22 93.9 81.5-97.5 (fL) Final MCH 08/13/2024 15:17:22 27.1 27.0-34.0 (pg) Final MCHC 08/13/2024 15:17:22 28.9 32.0-36.0 (g/dL) Final RDW 08/13/2024 15:17:22 19.8 11.5-15.5 (%) Final Platelets 08/13/2024 15:17:22 257 140-400 (K /uL) Final MPV 08/13/2024 15:17:22 10.0 6.6-11.1 ( fL) Final Nucleated erythrocytes/100 leukocytes [Ratio] in Blood by Automated count 08/13/2024 15:17:22 0 <=0 (/100 WBCs) Final Performing Location LABORATORY [facility] - [facility] [address]. [facility] [address]
--- OUTSIDE RECORDS SUMMARY | 2024-08-23 23:38 | External Medical Summary | Summary of Care ---
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 16 g 5 Active Pantoprazole Sodium 40 MG Oral Packet (Protonix) Administer 40 mg into feeding tube in the morning and 40 mg before bedtime. 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 PIV in RFA. Pt tolerated well. VSS. Pt reports she was back in the hospital again for bleeding. Pt reports they have not yet figured out where the bleeding has originated from. Pt has one more Venofer next week. Nurse will reach out to case mgr and patient is seeing family practice in a few days for hospital follow up and will bring up low iron issue. Pt is trying to avoid going back to hospital if possible. Pt has no complaints at this time. Patient instructed on use of heat and massage functions where applicable. Patient shown how to operate the heat function of the chair and to alert nursing staff if the chair feels too warm. Patient instructed on the risk of potential graves while using the heat function. 1330: Pt tolerated Venofer infusion well. PIV removed intact. Pt to return in one week. Discharged in stable condition. documented in this encounter Plan of Treatment Upcoming Encounters Date Type Department Care Team (Late st Contact Info) Description 08/11/2024 9:00 AM EDT Office Visit Family Medicine [address] [place] [phone] Bharati Wang MD [address] [place] [address] [place] [address] 08/12/2024 12:00 PM EDT Hem/Onc Treatment Hematology/Oncology Treatment, [place] [address] [facility] [place] [phone] Chair Claudia 6 Hem Onc Scenery 200 [facility] [place] [address] 08/17/2024 7:30 AM EDT Nurse Only Gastroenterology, [facility] [place] [address] Thai Nurse [facility] [place] [address] 08/25/2024 10:00 AM EDT Office Visit [address] [place] [phone] Bharati Wang MD [address] [place] [address] [place] [address] 08/26/2024 1:00 PM EDT Imaging Vascular Lab, [facility] 2nd Floor, [place] [facility] [place] [phone] 08/26/2024 2:00 PM EDT Imaging Vascular Lab, [facility] 2nd [facility], [place] [facility] [place] [phone] 09/02/2024 2:30 PM EDT Office Visit Vascular Surgery, [facility] [address] [place] [phone] Fletcher Alford MD [address] [place] [address] 09/10/2024 11:30 AM EDT Office Visit Neurosurgery, [place] [address] [place] [address] Yann Jackson MD [address] [place] [phone] 09/18/2024 12:00 PM EDT Appointment Vascular Lab [facility] [address] [place] [address] 09/18/2024 12:30 PM EDT Appointment Vascular Lab [facility], [place] [address] [place] [address] 09/18/2024 1:20 PM EDT Office Visit Vascular Surg [facility] [address] [place] [address] Samson Dennis MD [address] [place] [address] 09/24/2024 11:30 AM EDT Office Visit Gastroenterology, [facility] [address] [place] [address] Ester Wilson CRNP [address] [place] [address] Scheduled Procedures Name Priority Associated Diagnoses Date/Ti me ESOPHAGOGASTRODUODENOSCOPY ( EGD), FLEXIBLE, TRANSORAL, DIAGNOSTIC Recall Contreras esophagus Health Maintenance Due Date Last Done Comments Alpha-1 Antitrypsin 1953 Adult Wellness Visit 2002 DXA Scan 04/06/2018 04/06/2016, 09/2012, 02/08/2011, Additional history exists DISCUSS TOBACCO CESSATION (REFER TO SMARTSET #2281) 08/01/2018 08/01/2017 (Discussed) DTap/Tdap Vaccines (2 - [...] D LEVEL ONCE IN A LIFETIME-USE SMARTSET# 45706 Completed 02/12/2018, 04/25/2015, 09/24/2014, Additional history exists [...] this encounter Medical Devices Implanted Type Area [employer] Director Device Identifier Shelf Expiration Date Model / Serial / Lot Coil Target 3d [id number] - [id number] Implanted:Qty : 1 on 04/15/2024 by Yann Jackson MD at [place] [facility] N/A: Head ANNAMARIA : NEUROVASCULAR [id number] 12/16/2024 [id number] 60 / / [id number] 6cm, Coil [employer] Implanted:Qty : 1 on 04/15/2024 by Yann Jackson MD at [place] [facility] N/A: Head [employer] 12/16/2028 [id number] / / [id number] 45cm, Coil Swiftpac Implanted:Qty : 1 on 04/15/2024 by Yann Jackson MD at [place] [facility] N/A: Head [employer] 12/16/2028 [id number] / / [id number] 60cm, Coil Swiftpac Implanted:Qty : 1 on 04/15/2024 by Yann Jackson MD at [place] [facility] N/A: Head [employer] 11/02/2028 [id number] / / [id number] Coil Target 3d [id number] - [id number] Implanted:Qty : 1 on 04/15/2024 by Yann Jackson MD at [place] [facility] N/A: Head ANNAMARIA : NEUROVASCULAR [id number] 12/24/2024 [id number] 60 / / [id number] Coil Target 360 Soft [id number] - [id number] Implanted:Qty : 1 on 04/15/2024 by Yann Jackson MD at [place] [facility] N/A: Head ANNAMARIA : NEUROVASCULAR [id number] 06/23/2025 [id number] 00 / / [id number] Coil Target 360 Ultra [id number] - [id number] Implanted:Qty : 1 on 04/15/2024 by Yann Jackson MD at [place] [facility] N/A: Head ANNAMARIA : NEUROVASCULAR [id number] 05/04/2026 [id number] 00 / / [id number] Coil Target 360 Ultra [id number] - [id number] Implanted:Qty : 1 on 04/15/2024 by Yann Jackson MD at [place] [facility] N/A: Head ANNAMARIA : NEUROVASCULAR [id number] 02/03/2025 [id number] 80 / / [id number] 10cm, Coil Swiftpac Implanted:Qty : 2 on 04/15/2024 by Yann Jackson MD at [place] [facility] N/A: Head [employer] 12/24/2028 [id number] / / [id number] 30cm, Coil Swiftpac Implanted:Qty : 1 on 04/15/2024 by Yann Jackson MD at [place] [facility] N/A: Head [employer] 12/24/2028 [id number] / / [id number] 60cm, Coil Swiftpac Implanted:Qty : 1 on 04/15/2024 by Yann Jackson MD at [place] [facility] N/A: Head [employer] 11/02/2028 [id number] / / [id number] 6cm, Coil Swiftpac Implanted:Qty : 1 on 04/15/2024 by Yann Jackson MD at [place] [facility] N/A: Head [employer] 12/16/2028 [id number] / / [id number] Stent Vasc Hep 8mmx7.3z190wi - [id number] Implanted:Qty : 1 on 04/16/2024 by Samson Dennis MD at [place] [facility] Left: Iliac [employer] [id number] 12/29/2026 [id number] / [id number] / [id number] documented as of this encounter Visit Diagnoses [...] mg, IV Piggyback, ONCE, 1 dose, On Sat08/07/24 at 1315, Administer over 90 MinutesIndications:Iron deficiency anemia due to chronic blood loss,Acute blood loss anemia Start Infusion 08/07/2024 11:49 AM EDT 300 mg 180 mL/hr NSS infusion 500 mL, Intravenous, at 50 mL/hr, CONTINUOUS, Starting on Sat08/07/24 at 1245, Until Sat08/07/24 at 1747Indications:Iron deficiency anemia due to chronic blood loss,Acute blood loss anemia Start Infusion 08/07/2024 11:48 AM EDT 500 mL 50 mL/hr documented [...] Discussed due to patient's condition Care Teams Vision Impaired Teacher Relationship Specialty Start Date End Date Bharati Wang MD [address] [place] [address] [place] [address] PCP - General Family Medicine 10/02/21 documented as of this encounter
--- OUTSIDE RECORDS SUMMARY | 2024-08-23 23:38 | External Medical Summary ---
Author Name Unknown Address Unknown Organization K01:LABORATORY [facility] [place] - [address] [place] [address] Laboratory Report Ordering Provider Test Date Status HELEN KELLYKILO 08/13/2024 15:17:22 Negra l Observation Date Value Abnormality Reference (Units ) Status TSH 08/13/2024 15:17:22 1.35 0.27-4.20 (uIU/mL) Final Performing Location LABORATORY [facility] - [address] [place] [address]
--- OUTSIDE RECORDS SUMMARY | 2024-08-23 23:38 | External Medical Summary | Summary of Care ---
Author Name Unknown Organization [facility] Address [address] [place] [address] Phone [phone] Care Team Providers Care Production Line Solderer Name Role Phone Bharati Wang MD Primary Care Provide r Reason for Visit * Reason Comments Outpatient Testing Encounter Details Date Type Department Care Team (Late st Contact Info) Description 08/13/2024 3:20 PM EDT Laboratory Laboratory [address] [place] [phone] [place] [address] Iron deficiency anemia, unspecified iron deficiency anemia type Allergies Active Allergy Reactions Criticality Noted [...] Nasal Suspension (Flonase)Indica tions:Nasal congestion Administer 1 [place] into nostril in the morning. 16 g [...] fracture of humerus 08/07/2019 01/22/2024 Overview (08/10/2019): [facility] Bilateral sciatica 06/01/2019 4 Spasm of [...] No 04/20/2024 Does the household have a [facility] source of income? 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 Not on file Not on file Not on file documented as of this encounter Plan of Treatment Upcoming Encounters Date Type Department Care Team (Late st Contact Info) Description 08/17/2024 7:30 AM EDT Nurse Only [facility], [facility] [address] [place] [address] [place] Nurse Dale [facility] [address] [place] [address] 08/25/2024 10:00 AM EDT Office Visit [address] [place] [address] Bharati Wang MD [address] [place] [address] [place] [address] 08/26/2024 1:00 PM EDT Imaging Vascular Lab, [facility] [address] [place] [address] [place] [phone] 08/26/2024 2:00 PM EDT Imaging Vascular Lab, [place] [address] [place] [phone] 09/02/2024 2:30 PM EDT Office Visit Vascular Surgery, [facility] [address] [place] [phone] Fletcher Alford MD [address] [place] [facility] [place] [address] 09/10/2024 11:30 AM EDT Office Visit Neurosurgery, [place] [address] [place] [address] Yann Jackson MD [address] [place] [facility] [place] [phone] 09/18/2024 12:00 PM EDT Appointment Vascular Lab [facility] [address] [place] [address] 09/18/2024 12:30 PM EDT Appointment Vascular Lab [facility] [address] [place] [address] 09/18/2024 1:20 PM EDT Office Visit Vascular Surg [place] [address] [place] [address] Samson Dennis MD [address] [place] [address] 09/24/2024 11:30 AM EDT Office Visit Gastroenterology, [facility] [address] [place] [phone] Ester Wilson CRNP [address] [place] [address] 10/13/2024 10:00 AM EDT Office Visit [address] [place] [address] Bharati Wang MD [address] [place] [address] [place] [address] Pending Results Name Type Priority Associated Diagnoses Date /Time CBC WITH WBC DIFFERENTIAL AND ANEMIA REFLEX WORKUP Lab Routine Iron deficiency anemia, unspecified iron deficiency anemia type 08/13/2024 3:17 PM EDT ANEMIA REFLEX CHEMISTRY HOLD Lab Routine Iron deficiency anemia, unspecified iron deficiency anemia type 08/13/2024 3:17 PM EDT Scheduled Procedures Name Priority Associated Diagnoses Date/Ti nv ESOPHAGOGASTRODUODENOSCOPY ( EGD), FLEXIBLE, TRANSORAL, DIAGNOSTIC Recall [...] D LEVEL ONCE IN A LIFETIME-USE SMARTSET# 33556 Completed 02/12/2018, 04/25/2015, 09/24/2014, Additional history exists [...] this encounter Medical Devices Implanted Type Area Trash Collector Device Identifier Shelf Expiration Date Model / Serial / Lot Coil Target 3d [id number] - [id number] Implanted:Qty : 1 on 04/15/2024 by Yann Jackson MD at [place] [facility] [place] N/A: Head ANNAMARIA : NEUROVASCULAR [id number] 12/16/2024 [id number] 60 / / [id number] 6cm, Coil Swiftpac Implanted:Qty : 1 on 04/15/2024 by Yann Jackson MD at OR [facility] N/A: Head [employer] 12/16/2028 [id number] / / [id number] 45cm, Coil Swiftpac Implanted:Qty : 1 on 04/15/2024 by Yann Jackson MD at OR [facility] N/A: Head [employer] 12/16/2028 [id number] / / [id number] 60cm, Coil Swiftpac Implanted:Qty : 1 on 04/15/2024 by Yann Jackson MD at OR [facility] N/A: Head [employer] 11/02/2028 [id number] / / [id number] Coil Target 3d [id number] - [id number] Implanted:Qty : 1 on 04/15/2024 by Yann Jackson MD at OR [facility] N/A: Head ANNAMARIA : NEUROVASCULAR [id number] 12/24/2024 [id number] 60 / / [id number] Coil Target 360 Soft 2pqy12pp - [id number] Implanted:Qty : 1 on 04/15/2024 by Yann Jackson MD at OR [facility] N/A: Head ANNAMARIA : NEUROVASCULAR [id number] 06/23/2025 [id number] 00 / / [id number] Coil Target 360 Ultra [id number] - [id number] Implanted:Qty : 1 on 04/15/2024 by Yann Jackson MD at OR [facility] N/A: Head ANNAMARIA : NEUROVASCULAR [id number] 05/04/2026 [id number] 00 / / [id number] Coil Target 360 Ultra 2oxz5lw - [id number] Implanted:Qty : 1 on 04/15/2024 by Yann Jackson MD at OR [facility] N/A: Head ANNAMARIA : NEUROVASCULAR [id number] 02/03/2025 [id number] 80 / / [id number] 10cm, Coil Swiftpac Implanted:Qty : 2 on 04/15/2024 by Yann Jackson MD at OR [facility] N/A: Head [employer] 12/24/2028 [id number] / / [id number] 30cm, Coil Swiftpac Implanted:Qty : 1 on 04/15/2024 by Yann Jackson MD at OR [facility] N/A: Head [employer] 12/24/2028 [id number] / / [id number] 60cm, Coil Swiftpac Implanted:Qty : 1 on 04/15/2024 by Yann Jackson MD at OR [facility] N/A: Head [employer] 11/02/2028 [id number] / / [id number] 6cm, Coil Swiftpac Implanted:Qty : 1 on 04/15/2024 by Yann Jackson MD at OR [facility] N/A: Head [employer] 12/16/2028 [id number] / / [id number] Stent Vasc Hep [id number] - [id number] Implanted:Qty : 1 on 04/16/2024 by Samson Dennis MD at OR [facility] Left: Iliac [employer] [id number] 12/29/2026 [id number] / [id number] / [id number] documented as of this encounter Procedures Procedure Name Priority Date/Time Associated Diagnosis Comments ANEMIA CBC Routine 08/13/2024 3:17 PM EDT Iron deficiency anemia, unspecified iron deficiency anemia type DIFFERENTIAL, AUTOMATED Routine 08/13/2024 3:17 PM EDT Iron deficiency anemia, unspecified iron deficiency anemia type RETICULOCYTE PANEL Routine 08/13/2024 3: 17 PM EDT Iron deficiency anemia, unspecified iron deficiency anemia type documented in this encounter Results * (ABNORMAL) RETICULOCYTE PANEL (08/13/2024 3:17 PM EDT) Reticulocyte Percent 3.55(H) 0.80 - 1.90 % 08/13/2024 10:41 PM EDT LABORATORY [facility] Absolute Reticulocyte 132.4(H) 31.3 - 100.1 K/uL 08/13/2024 10:41 PM EDT [facility] Immature Reticulocyte Fraction 27.7(H) 2.5 - 20.6 % 08/13/2024 10:41 PM EDT [facility] Reticulocyte Hemoglobin 29.4(L) 29.7 - 37.4 pg 08/13/2024 10:41 PM EDT [facility] Blood Venous blood specimen / Unknown Venipuncture / Unknown 08/13/2024 3:17 PM EDT 08/13/2024 3:17 PM EDT Bharati Wang MD LAB BLOOD ORDERABLES Final Result [facility] [address] [place] [address] * DIFFERENTIAL, AUTOMATED (08/13/2024 3:17 PM EDT) WBC 4.75 4.00 - 10.80 K/uL 08/13/2024 10:17 PM EDT [facility] Neutrophils % 58.1 40.0 - 75.0 % 08/13/2024 10:17 PM EDT [facility] Lymphocytes % 28.8 18.0 - 42.0 % 08/13/2024 10:17 PM EDT [facility] Monocytes % 9.7 1.0 - 11.0 % 08/13/2024 10:17 PM EDT [facility] Eosinophils % 2.1 0.0 - 6.0 % 08/13/2024 10:17 PM EDT [facility] Basophils % 1.1 0.0 - 2.0 % 08/13/2024 10:17 PM EDT [facility] Immature Granulocytes % 0.2 0.0 - 2.0 % 08/13/2024 10:17 PM EDT [facility] Absolute Neutrophils 2.76 1.80 - 7.70 K/uL 08/13/2024 10:17 PM EDT [facility] Absolute Lymphocytes 1.37 1.00 - 4.80 K/ul 08/13/2024 10:17 PM EDT [facility] Absolute Monocytes 0.46 0.00 - 1.10 K/uL 08/13/2024 10:17 PM EDT [facility] Absolute Eosinophils 0.10 0.00 - 0.70 K/uL 08/13/2024 10:17 PM EDT [facility] Absolute Basophils 0.05 0.00 - 0.20 K/uL 08/13/2024 10:17 PM EDT [facility] Absolute Immature Granulocytes 0.01 0.00 - 0.20 K/uL 08/13/2024 10:17 PM EDT [facility] Blood Venous blood specimen / Unknown Venipuncture / Unknown 08/13/2024 3:17 PM EDT 08/13/2024 3:17 PM EDT Bharati Wang MD LAB BLOOD ORDERABLES Final Result [facility] [address] [place] [address] * (ABNORMAL) ANEMIA CBC (08/13/2024 3:17 PM EDT) WBC 4.75 4.00 - 10.80 K/uL 08/13/2024 10:17 PM EDT [facility] RBC 3.61 3.85 - 5.15 M/uL 08/13/2024 10:17 PM EDT [facility] HGB 9.8(L) 12.0 - 15.3 g/dL 08/13/2024 10:17 PM EDT [facility] Comment: Anemia reflex testing triggers on a HGB < 12.0 for Females and HGB < 13.0 for Males in accordance with the WHO Anemia Guidelines Anemia reflex testing triggers on a HGB < 12.0 for Females and HGB < 13.0 for Males in accordance with the WHO Anemia Guidelines HCT 33.9(L) 36.0 - 45.2 % 08/13/2024 10:17 PM EDT [facility] MCV 93.9 81.5 - 97.5 fL 08/13/2024 10:17 PM EDT [facility] MCH 27.1 27.0 - 34.0 pg 08/13/2024 10:17 PM EDT [facility] MCHC 28.9 32.0 - 36.0 g/dL 08/13/2024 10:17 PM EDT [facility] RDW 19.8 11.5 - 15.5 % 08/13/2024 10:17 PM EDT [facility] PLT 257 140 - 400 K/uL 08/13/2024 10:17 PM EDT [facility] MPV 10.0 6.6 - 11.1 fL 08/13/2024 10:17 PM EDT [facility] nRBCs 0 <=0 /100 WBCs 08/13/2024 10:17 PM EDT [facility] Blood Venous blood specimen / Unknown Venipuncture / Unknown 08/13/2024 3:17 PM EDT 08/13/2024 3:17 PM EDT Bharati Wang MD LAB BLOOD ORDERABLES Final Result [facility] [address] [facility] [place] [address] documented in this encounter Visit Diagnoses Diagnosis Iron deficiency anemia, unspecified iron deficiency anemia type documented in this encounter Advance Directives [...] Discussed due to patient's condition Care Teams Production Line Solderer Relationship Specialty Start Date End Date Bharati Wang MD [address] [place] [address] [place] [address] PCP - General Family Medicine 10/02/21 documented as of this encounter
--- OUTSIDE RECORDS SUMMARY | 2024-08-23 23:38 | External Medical Summary ---
Author Name Unknown Address Unknown Organization K01:LABORATORY [place] [address] [place] [address] Laboratory Report Ordering Provider Test Date Status BAUTISTA KELLY 08/13/2024 15:17:22 Negra l Observation Date Value Abnormality Reference (Units ) Status Retic, % (auto) 08/13/2024 15:17:22 3.55 Above high normal 0.80-1.90 (%) Final Reticulocytes, Absolute 08/13/2024 15:17:22 132.4 Above high normal 31.3-100.1 (K/uL) Final Reticulocyte fraction, immature 08/13/2024 15:17:22 27.7 Above high normal 2.5-20.6 (%) Final Reticulocyte HGB 08/13/2024 15:17:22 29.4 Below low normal 29.7-37.4 (pg) Final Performing Location [facility] [place] [facility] [place] [address]
--- OUTSIDE RECORDS SUMMARY | 2024-08-23 23:38 | External Medical Summary ---
Author Name Unknown Address Unknown Organization K01[place] [place] [address] [place] [address] Laboratory Report Ordering Provider Test Date Status BAUTISTA KELLY 08/13/2024 15:17:22 Negra l Observation Date Value Abnormality Reference (Units ) Status Iron 08/13/2024 15:17:22 48 33-151 (ug /dL) Final Iron-binding capacity 08/13/2024 15:17:22 307 250-425 (ug/dL) Final Transferrin Sat % 08/13/2024 15:17:22 16 15 -55 (%) Final Performing Location LABORATORY [facility] - [address] [place] [address]
--- OUTSIDE RECORDS SUMMARY | 2024-08-23 23:38 | External Medical Summary ---
Author Name Unknown Address Unknown Organization K01[facility] [place] [address] [place] [address] Laboratory Report Ordering Provider Test Date Status BAUTISTA KELLY 08/13/2024 15:17:22 Negra l Observation Date Value Abnormality Reference (Units ) Status Ferritin 08/13/2024 15:17:22 284 Above high normal 13 -150 (ng/mL) Final Postmenopausal women have hi gher ferritin levels than pre-menopausal women. The above reference interval is based on pre-menopausal women. Performing Location [facility] [place] [address] [place] [address]
--- OUTSIDE RECORDS SUMMARY | 2024-08-23 23:38 | External Medical Summary ---
Author Name Unknown Address Unknown Organization K01:LABORATORY [facility] [place] - [address] [place] [address] Laboratory Report Ordering Provider Test Date Status JAZIEL KELLYLIZZY 08/13/2024 15:17:22 Negra l Observation Date Value Abnormality Reference (Units ) Status Vitamin B12 08/13/2024 15:17:22 088 236-2803 (pg/mL) Final Performing Location LABORATORY [facility] [place] - [address] [place] [address]
--- OUTSIDE RECORDS SUMMARY | 2024-08-23 23:38 | External Medical Summary ---
Author Name Unknown Address Unknown Organization K01:LABORATORY [facility] [place] - [address] [place] [address] Laboratory Report Ordering Provider Test Date Status GEORGESBARBARAJAZIEL GELIZZY 08/13/2024 15:17:22 Negra l Observation Date Value Abnormality Reference (Units ) Status Folic Acid 08/13/2024 15:17:22 13.5 >4.5 (ng/ mL) Final Performing Location LABORATORY [facility] [place] - [address] [place] [address]
--- OUTSIDE RECORDS SUMMARY | 2024-08-23 23:38 | External Medical Summary | Summary of Care ---
Author Name Unknown Organization [facility] Address [address] [place] [address] Phone [phone] Care Team Providers Care Director Of Respiratory Therapy Name Role Phone Bharati Wang MD Primary Care Provide r Reason for Visit * Reason Comments Infusion 08/28 Venofer Encounter Details Date Type Department Care Team (Latest Contact Info) Description 08/12/2024 12:00 PM EDT Hem/Onc Treatment Hematology/Oncology Treatment, [address] [phone] Claudia, Chair 6 Hem On[address] [address] Iron deficiency anemia due to chronic blood [...] as of this encounter (statuses as of 08/12/2024) Medications VITAMIN D 2000 UNITS PO CAPS [...] Nasal Suspension (Flonase)Indica tions:Nasal congestion Administer 1 [place] into nostril in the morning. 16 g 5 Active Pantoprazole Sodium 40 MG Oral Packet (Protonix) Take 40 mg by mouth in the morning and 40 mg before bedtime. 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 Not on file [...] 08/17/2024 7:30 AM EDT Nurse Only Gastroenterology, [place] [address] [facility] [place] [address] Nurse Dale Andre [address] [facility] [place] [address] 08/25/2024 10:00 AM EDT Office Visit Family [address] [place] [address] Bharati Wang MD [address] [place] [address] [place] [address] 08/26/2024 1:00 PM EDT Imaging Vascular Lab, [facility] [address] [place] [address] [facility] [place] [address] 08/26/2024 2:00 PM EDT Imaging Vascular Lab, [address] [place] [address] 09/02/2024 2:30 PM EDT Office Visit Vascular Surgery, [facility] [address] [facility] [place] [phone] Fletcher Alford MD [address] [place] [address] 09/10/2024 11:30 AM EDT [facility] [address] [place] [address] Yann Jackson MD [address] [place] [phone] 09/18/2024 12:00 PM EDT Appointment Vascular Lab [facility] [address] [place] [address] 09/18/2024 12:30 PM EDT Appointment Vascular Lab [facility] [address] [place] [address] 09/18/2024 1:20 PM EDT Office Visit Vascular Surg [facility] [address] [place] [address] Samson Dennis MD [address] [facility] [place] [address] 09/24/2024 11:30 AM EDT Office Visit Gastroenterology, [facility] [address] [place] [phone] Ester Wilson CRNP [address] [place] [address] 10/13/2024 10:00 AM EDT Office Visit [address] [place] [phone] Bharati Wang MD [address] [place] [address] [place] [address] Scheduled Procedures Name Priority Associated Diagnoses Date/Ti [...] D LEVEL ONCE IN A LIFETIME-USE SMARTSET# 04758 Completed 02/12/2018, 04/25/2015, 09/24/2014, Additional history exists [...] this encounter Medical Devices Implanted Type Area Rn Palliative Device Identifier Shelf Expiration Date Model / Serial / Lot Coil Target 3d [id number] - [id number] Implanted:Qty : 1 on 04/15/2024 by Yann Jackson MD at OR [facility] [place] N/A: Head ANNAMARIA : NEUROVASCULAR [id number] 12/16/2024 [id number] 60 / / [id number] 6cm, Coil Swiftpac Implanted:Qty : 1 on 04/15/2024 by Yann Jackson MD at OR [facility] [place] N/A: Head [employer] 12/16/2028 [id number] / / [id number] 45cm, Coil Swiftpac Implanted:Qty : 1 on 04/15/2024 by Yann Jackson MD at OR [facility] [place] N/A: Head [employer] 12/16/2028 [id number] / / [id number] 60cm, Coil Swiftpac Implanted:Qty : 1 on 04/15/2024 by Yann Jackson MD at OR [facility] [place] N/A: Head [employer] 11/02/2028 [id number] / / [id number] Coil Target 3d 3slx2bx - [id number] Implanted:Qty : 1 on 04/15/2024 by Yann Jackson MD at OR [facility] [place] N/A: Head ANNAMARIA : NEUROVASCULAR [id number] 12/24/2024 [id number] 60 / / [id number] Coil Target 360 Soft [id number] - [id number] Implanted:Qty : 1 on 04/15/2024 by Yann Jackson MD at OR [facility] [place] N/A: Head ANNAMARIA : NEUROVASCULAR [id number] 06/23/2025 [id number] 00 / / [id number] Coil Target 360 Ultra 5pto29hg - [id number] Implanted:Qty : 1 on 04/15/2024 by Yann Jackson MD at OR [facility] [place] N/A: Head ANNAMARIA : NEUROVASCULAR [id number] 05/04/2026 [id number] / / [id number] Coil Target 360 Ultra [id number] - [id number] Implanted:Qty : 1 on 04/15/2024 by Yann Jackson MD at OR [facility] [place] N/A: Head ANNAMARIA : NEUROVASCULAR [id number] 02/03/2025 [id number] 80 / / [id number] 10cm, Coil Swiftpac Implanted:Qty : 2 on 04/15/2024 by Yann Jackson MD at OR [facility] [place] N/A: Head [employer] 12/24/2028 [id number] / / [id number] 30cm, Coil Swiftpac Implanted:Qty : 1 on 04/15/2024 by Yann Jackson MD at OR [facility] [place] N/A: Head [employer] 12/24/2028 [id number] / / [id number] 60cm, Coil Swiftpac Implanted:Qty : 1 on 04/15/2024 by Yann Jackson MD at OR [facility] [place] N/A: Head [employer] 11/02/2028 [id number] / / [id number] 6cm, Coil Swiftpac Implanted:Qty : 1 on 04/15/2024 by Yann Jackson MD at OR [facility] [place] N/A: Head [employer] 12/16/2028 [id number] / / [id number] Stent Vasc Hep 8mmx7.5z198eh - [id number] Implanted:Qty : 1 on 04/16/2024 by Samson Dennis MD at OR [facility] [place] Left: Iliac [employer] [id number] 12/29/2026 [id number] / [id number] / [id number] documented as of this encounter Visit Diagnoses [...] due to patient's condition Care Teams Director Of Respiratory Therapy Relationship Specialty Start Date End Date Bharati Wang MD [address] [place] [address] [place] [address] PCP - General Family Medicine 10/02/21 documented as of this encounter
--- OUTSIDE RECORDS SUMMARY | 2024-08-23 23:38 | External Medical Summary ---
Author Name Unknown Address Unknown Organization K01:[facility] [place] [address] [place] [address] Laboratory Report Ordering Provider Test Date Status BAUTISTA KELLY 08/13/2024 15:17:22 Negra l Observation Date Value Abnormality Reference (Units ) Status Creatinine 08/13/2024 15:17:22 0.9 0.5-1.0 (mg/dL) Final Glomerular filtration rate/1.73 sq M.predicted [Volume Rate/Area] in Serum, Plasma or Blood by Creatinine-based formula (CKD-EPI) 08/13/2024 15:17:22 66 >=60 (mL/min) Final eGFR is calculated based on the CKD-EPI 2020 equation. Performing Location [facility] [place] [address] [place] [address]
--- OUTSIDE RECORDS SUMMARY | 2024-08-23 23:39 | External Medical Summary | Summary of Care ---
Author Name Unknown Organization [facility] Address [address] [place] [address] Phone [phone] Care Team Providers Care Ui Application Developer Name Role Phone Bharati Wang MD Primary Care Provide r Reason for Visit * Reason Onset Date Comments Other 08/07/2024 Encounter Details Date Type Department Care Team (Late st Contact Info) Description 08/07/2024 Telephone Gastroenterology, [facility] [address] [place] [address] Ester Wilson CRNP [address] [place] [address] Other (/) Allergies Active Allergy Reactions Criticality Noted Date [...] as of this encounter (statuses as of 08/07/2024) Medications VITAMIN D 2000 UNITS PO CAPS [...] Nasal Suspension (Flonase)Indica tions:Nasal congestion Administer 1 [place] into nostril in the morning. 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 She is currently scheduled to see you on 09/24/24. Please advise if you want the pt seen sooner Thank you SUSANNA Trimble 08/07/2024 3:05 PM documented in this encounter Plan of Treatment Upcoming Encounters Date Type Department Care Team (Late st Contact Info) Description 08/11/2024 9:00 AM EDT Office Visit Family [address] [place] [address] Bharati Wang MD [address] [place] [address] [place] [address] 08/12/2024 12:00 PM EDT Hem/Onc Treatment [facility] [place] [facility] [phone] Claudia, Chair 6 Hem Onc [place] [address] [facility] [place] [address] 08/25/2024 10:00 AM EDT Office Visit [address] [place] [address] Bharati Wang MD [address] [place] [address] [place] [address] 08/26/2024 1:00 PM EDT Imaging Vascular Lab, [address] [place] [address] 08/26/2024 2:00 PM EDT Imaging Vascular Lab, [address] [place] [address] 09/02/2024 2:30 PM EDT Office Visit Vascular Surgery, [facility] [address] [place] [phone] Fletcher Alford MD [address] [place] [address] 09/10/2024 11:30 AM EDT Office Visit Neurosurgery, [place] [address] [place] [address] Yann Jackson MD [address] [place] [phone] 09/18/2024 12:00 PM EDT Appointment Vascular Lab [facility], [place] [address] [place] [address] 09/18/2024 12:30 PM EDT Appointment Vascular Lab [place] [address] [place] [address] 09/18/2024 1:20 PM EDT Office Visit Vascular Surg [place] [address] [place] [address] Samson Dennis MD [facility] [place] [address] 09/24/2024 11:30 AM EDT Office Visit Gastroenterology, [facility] 132 [facility] [place] [address] Ester Wilson CRNP 132 [facility] [place] [address] Scheduled Procedures Name Priority Associated Diagnoses Date/Ti [...] D LEVEL ONCE IN A LIFETIME-USE SMARTSET# 75102 Completed 02/12/2018, 04/25/2015, 09/24/2014, Additional history exists [...] this encounter Medical Devices Implanted Type Area Cash Applications Coordinator Device Identifier Shelf Expiration Date Model / Serial / Lot Coil Target 3d [id number] - [id number] Implanted:Qty : 1 on 04/15/2024 by Yann Jackson MD [place] [facility] [place]: Head ANNAMARIA : NEUROVASCULAR [id number] 12/16/2024 [id number] 60 / / [id number] 6cm, Coil Swiftpac Implanted:Qty : 1 on 04/15/2024 by Yann Jackson MD [place] [facility]/A: Head [employer] 12/16/2028 [id number] / / [id number] 45cm, Coil Swiftpac Implanted:Qty : 1 on 04/15/2024 by Yann Jackson MD at [place] [facility] N/A: Head [employer] 12/16/2028 [id number] / / [id number] 60cm, Coil Swiftpac Implanted:Qty : 1 on 04/15/2024 by Yann Jackson MD at [place] [facility] N/A: Head [employer] 11/02/2028 [id number] / / [id number] Coil Target 3d 9ppj9dq - [id number] Implanted:Qty : 1 on 04/15/2024 by Yann Jackson MD at [place] [facility] [place]/A: Head ANNAMARIA : NEUROVASCULAR [id number] 12/24/2024 [id number] 60 / / [id number] Coil Target 360 Soft [id number] - [id number] Implanted:Qty : 1 on 04/15/2024 by Yann Jackson MD at [place] [facility] [place]A: Head ANNAMARIA : NEUROVASCULAR [id number] 06/23/2025 [id number] 00 / / [id number] Coil Target 360 Ultra 4hps81ol - [id number] Implanted:Qty : 1 on 04/15/2024 by Yann Jackson MD at [place] [facility]A: Head ANNAMARIA : NEUROVASCULAR [id number] 05/04/2026 [id number] 00 / / [id number] Coil Target 360 Ultra 1gmg9up - [id number] Implanted:Qty : 1 on 04/15/2024 by Yann Jackson MD at [place] [facility]/A: Head ANNAMARIA : NEUROVASCULAR [id number] 02/03/2025 [id number] 80 / / [id number] 10cm, Coil Swiftpac Implanted:Qty : 2 on 04/15/2024 by Yann Jackson MD at [place] [facility] [place] N/A: Head [employer] 12/24/2028 [id number] / / [id number] 30cm, Coil Swiftpac Implanted:Qty : 1 on 04/15/2024 by Yann Jackson MD at [place] [facility] N/A: Head [employer] 12/24/2028 [id number] / / [id number] 60cm, Coil Swiftpac Implanted:Qty : 1 on 04/15/2024 by Yann Jackson MD at [place] [facility] N/A: Head [employer] 11/02/2028 [id number] / / [id number] 6cm, Coil Swiftpac Implanted:Qty : 1 on 04/15/2024 by Yann Jackson MD at [place] [facility] N/A: Head [employer] 12/16/2028 [id number] / / [id number] Stent Vasc Hep 8mmx7.7d137st - [id number] Implanted:Qty : 1 on 04/16/2024 by Samson Dennis MD at [place] [facility] Left: Iliac [employer] [id number] 12/29/2026 [id number] 2A / [id number] / [id number] documented as of this encounter Advance Directives [...] Discussed due to patient's condition Care Teams Ui Application Developer Relationship Specialty Start Date End Date Bharati Wang MD [address] [place] [address] [place] [phone] PCP - General Family Medicine 10/02/21 documented as of this encounter
--- OUTSIDE RECORDS SUMMARY | 2024-08-23 23:39 | External Medical Summary | Summary of Care ---
Author Name Unknown Organization [facility] Address [address] [place] [address] Phone [phone] Care Team Providers Care Protocol Officer Name Role Phone Bharati Wang MD Primary Care Provide r Reason for Visit * Reason Onset Date Comments Other 08/07/2024 Encounter Details Date Type Department Care Team (Late st Contact Info) Description 08/07/2024 Telephone Gastroenterology, [facility] [address] [place] [address] Ester Wilson CRNP [address] [place] [address] Other (/) Allergies Active Allergy Reactions Criticality [...] as of this encounter (statuses as of 08/08/2024) Medications VITAMIN D 2000 UNITS PO CAPS [...] Nasal Suspension (Flonase)Indica tions:Nasal congestion Administer 1 [place] into nostril in the morning. 16 g 5 Active documented as of this encounter (statuses as of 08/08/2024) Active Problems Problem Noted Date Diagnosed Date [...] as of this encounter (statuses as of 08/08/2024) Resolved Problems Problem Noted Date Diagnosed Date [...] and cartilage 02/11/2011 Other chronic sinusitis 11/26 Contrreas's esophagus 08/15/19 16 Calcaneal spur 02/07/2008 Kidney disease, chronic, sta ge III (GFR 30-59 ml/min) 07/10/2018 Hypercalcemia 07/19/2017 Tubular adenoma of colon 06/2018 documented as of this encounter (statuses as of 08/08/2024) Immunizations Name Administration Dates Next Due COVID-19 [...] No 04/20/2024 Does the household have a [facility] source of income? 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 Not on file Not on file Not on file documented as of this encounter Miscellaneous Notes * Telephone Encounter - Ester Wilson CRNP - 08/08/2024 6:56 AM EDT I can double book at 4PM on Saturday the or at at 4PM. * Telephone Encounter - Manda Meyer OSA - 08/07/2024 2:58 PM EDT Ester, We received a fax from [facility] that they would like for this pt [...] 08/11/2024 9:00 AM EDT Office Visit Family [address] [place] [address] Bharati Wang MD [address] [place] [address] [place] [address] 08/12/2024 12:00 PM EDT Hem/Onc Treatment [facility]ematology[facility] [place] [facility] [phone] Claudia, Chair 6 Hem Onc [facility] [address] 08/25/2024 10:00 AM EDT Office Visit Family Medicine [address] [place] [phone] Bharati Wang MD [address] [place] [address] [place] [address] 08/26/2024 1:00 PM EDT Imaging Vascular Lab, [facility] 2nd Floor, [place] [address] [place] [address] 08/26/2024 2:00 PM EDT Imaging Vascular Lab, [facility] 2nd Floor, [place] [address] [place] [address] 09/02/2024 2:30 PM EDT Office Visit Vascular Surgery, [facility] [address] [place] [phone] Fletcher Alford MD [address] [place] [address] 09/10/2024 11:30 AM EDT Office Visit Neurosurgery, [place] [address] [place] [address] Yann Jackson MD [address] [place] [address] 09/18/2024 12:00 PM EDT Appointment Vascular Lab [facility] [address] [place] [address] 09/18/2024 12:30 PM EDT Appointment Vascular Lab [facility] [address] [place] [address] 09/18/2024 1:20 PM EDT Office Visit Vascular Surg [facility] [address] [place] [address] Samson Dennis MD [address] [place] [address] 09/24/2024 11:30 AM EDT Office Visit Gastroenterology, [facility] [address] [facility] [place] [address] Ester Wilson CRNP [address] [place] [address] Scheduled Procedures Name Priority Associated Diagnoses Date/Ti me ESOPHAGOGASTRODUODENOSCOPY ( EGD), FLEXIBLE, TRANSORAL, DIAGNOSTIC Recall Contreras esophagus Health Maintenance Due Date Last Done Comments Alpha-1 Antitrypsin 1953 Adult Wellness Visit 2002 DXA Scan 04/06/2018 04/06/2016, 09/2012, 02/08/2011, Additional history exists DISCUSS TOBACCO CESSATION (REFER TO SMARTSET #5180) 08/01/2018 08/01/2017 (Discussed) DTap/Tdap Vaccines (2 - [...] D LEVEL ONCE IN A LIFETIME-USE SMARTSET# 52341 Completed 02/12/2018, 04/25/2015, 09/24/2014, Additional history exists [...] this encounter Medical Devices Implanted Type Area Diagnostic Medical Sonographer Device Identifier Shelf Expiration Date Model / Serial / Lot Coil Target 3d 0ssi4ag - [id number] Implanted:Qty : 1 on 04/15/2024 by Yann Jackson MD [place] [facility]: Head ANNAMARIA : NEUROVASCULAR [id number] 12/16/2024 [id number] 60 / / [id number] 6cm, Coil Swiftpac Implanted:Qty : 1 on 04/15/2024 by Yann Jackson MD at [place] [facility]/A: Head [employer] 12/16/2028 [id number] / / [id number] 45cm, Coil Swiftpac Implanted:Qty : 1 on 04/15/2024 by Yann Jackson MD at [place] [facility] N/A: Head [employer] 12/16/2028 [id number] / / [id number] 60cm, Coil Swiftpac Implanted:Qty : 1 on 04/15/2024 by Yann Jackson MD at [place] [facility] N/A: Head [employer] 11/02/2028 [id number] / / [id number] Coil Target 3d 5zvo4bq - [id number] Implanted:Qty : 1 on 04/15/2024 by Yann Jackson MD at [place] [facility] [place]/A: Head ANNAMARIA : NEUROVASCULAR [id number] 12/24/2024 [id number] 60 / / [id number] Coil Target 360 Soft 4dts44dx - [id number] Implanted:Qty : 1 on 04/15/2024 by Yann Jackson MD at [place] [facility] [place]/A: Head ANNAMARIA : NEUROVASCULAR [id number] 06/23/2025 [id number] 00 / / [id number] Coil Target 360 Ultra 4onw75sw - [id number] Implanted:Qty : 1 on 04/15/2024 by Yann Jackson MD at [place] [facility] [place]/A: Head ANNAMARIA : NEUROVASCULAR [id number] 05/04/2026 [id number] 00 / / [id number] Coil Target 360 Ultra 1tkf4qd - [id number] Implanted:Qty : 1 on 04/15/2024 by Yann Jackson MD at [place] [facility] N/A: Head ANNAMARIA : NEUROVASCULAR [id number] 02/03/2025 [id number] 80 / / [id number] 10cm, Coil Swiftpac Implanted:Qty : 2 on 04/15/2024 by Yann Jackson MD at [place] [facility] N/A: Head [employer] 12/24/2028 [id number] / / [id number] 30cm, Coil Swiftpac Implanted:Qty : 1 on 04/15/2024 by Yann Jackson MD at [place] [facility] N/A: Head [employer] 12/24/2028 [id number] / / [id number] 60cm, Coil Swiftpac Implanted:Qty : 1 on 04/15/2024 by Yann Jackson MD at [place] [facility] N/A: Head [employer] 11/02/2028 [id number] / / [id number] 6cm, Coil Swiftpac Implanted:Qty : 1 on 04/15/2024 by Yann Jackson MD at [place] [facility] N/A: Head [employer] 12/16/2028 [id number] / / [id number] Stent Vasc Hep 8mmx7.6m067ve - [id number] Implanted:Qty : 1 on 04/16/2024 by Samson Dennis MD at [place] [facility] Left: Iliac [employer] [id number] 12/29/2026 [id number] 2A / [id number] / [id number] documented as of this encounter Advance Directives [...] Discussed due to patient's condition Care Teams Protocol Officer Relationship Specialty Start Date End Date Bharati Wang MD [address] [place] [address] [place] [address] PCP - General Family Medicine 10/02/21 documented as of this encounter
--- OUTSIDE RECORDS SUMMARY | 2024-08-23 23:39 | External Medical Summary | Summary of Care ---
Author Name Unknown Organization [facility] Address [address] [place] [address] Phone [phone] Care Team Providers Care Operating Room Tech Name Role Phone Leticia Wang MD Primary Care Provide r Reason for Visit * Reason Onset Date Comments Medication Refill 08/10/2024 Encounter Details Date Type Department Care Team (Late st Contact Info) Description 08/10/2024 Refill Family Medicine [address] [phone] Tri Caro, RN [address] [place] [address] Allergies Active Allergy Reactions Criticality [...] as of this encounter (statuses as of 08/10/2024) Medications VITAMIN D 2000 UNITS PO CAPS [...] Nasal Suspension (Flonase)Indic ations:Nasal congestion Administer 1 [place] into nostril in the morning. 16 g 5 Active Pantoprazole Sodium 40 MG Oral Packet (Protonix) Take 40 mg by mouth in the morning and 40 mg before bedtime. 30 Each 2 5 Active Pantoprazole Sodium 40 MG Oral Packet (Protonix) Administer 40 mg into feeding tube in the morning and 40 mg before bedtime. 08/11/19 25 Discontin ued(Refil l) documented as of this encounter (statuses as of 08/10/2024) Active Problems Problem Noted Date Diagnosed Date [...] as of this encounter (statuses as of 08/10/2024) Resolved Problems Problem Noted Date Diagnosed Date [...] Overview (08/10/2019): [facility] Bilateral sciatica 06/01/2019 Spasm of muscle [...] as of this encounter (statuses as of 08/10/2024) Immunizations Name Administration Dates Next Due COVID-19 [...] No 04/20/2024 Does the household have a [facility] source of income? 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 Patient is in need of refill on her pantoprazole. Thank you! documented in this encounter Plan of Treatment Upcoming Encounters Date Type Department Care Team (Late st Contact Info) Description 08/11/2024 9:00 AM EDT Office Visit [address] [phone] Leticia Wang MD [address] [place] [address] [place] [address] 08/12/2024 12:00 PM EDT Hem/Onc Treatment Hematology/Oncology Treatment, [address] [place] [phone] Claudia, Chair 6 Hem Onc [address] [address] 08/17/2024 7:30 AM EDT Nurse Only Gastroenterology, [place] 132 [facility] [place] [address] Nurse Dale Andre 132 [facility] [place] [address] 08/25/2024 10:00 AM EDT Office Visit Family Medicine [address] [place] [address] Leticia Wang MD [address] [place] [address] [place] [address] 08/26/2024 1:00 PM EDT Imaging Vascular Lab, [facility] 2nd [facility], [place] [address] [place] [address] 08/26/2024 2:00 PM EDT Imaging Vascular Lab, [facility], [place] [address] [place] [address] 09/02/2024 2:30 PM EDT Office Visit Vascular Surgery, [facility] [address] [place] [address] Fletcher Alford MD [address] [place] [address] 09/10/2024 11:30 AM EDT Office Visit Neurosurgery, [place] [address] [place] [address] Yann Jackson MD [address] [place] [address] 09/18/2024 12:00 PM EDT Appointment Vascular Lab [facility] [address] [place] [address] 09/18/2024 12:30 PM EDT Appointment Vascular Lab [facility] [address] [place] [address] 09/18/2024 1:20 PM EDT Office Visit Vascular Surg [facility] [address] [place] [address] Samson Dennis MD [address] [place] [address] 09/24/2024 11:30 AM EDT Office Visit Gastroenterology, [facility] [address] [place] [address] Ester Wilson CRNP [address] [place] [address] Scheduled Procedures Name Priority Associated Diagnoses Date/Ti me ESOPHAGOGASTRODUODENOSCOPY ( EGD), FLEXIBLE, TRANSORAL, DIAGNOSTIC Recall Contreras esophagus Health Maintenance Due Date Last Done Comments Alpha-1 Antitrypsin 1953 Adult Wellness Visit 2002 DXA Scan 04/06/2018 04/06/2016, 09/2012, 02/08/2011, Additional history exists DISCUSS TOBACCO CESSATION (REFER TO SMARTSET #0551) 08/01/2018 08/01/2017 (Discussed) DTap/Tdap Vaccines (2 - [...] D LEVEL ONCE IN A LIFETIME-USE SMARTSET# 73347 Completed 02/12/2018, 04/25/2015, 09/24/2014, Additional history exists [...] this encounter Medical Devices Implanted Type Area Rack Room Worker Device Identifier Shelf Expiration Date Model / Serial / Lot Coil Target 3d 8khh3az - [id number] Implanted:Qty : 1 on 04/15/2024 by Yann Jackson MD [place] [facility] [place]: Head ANNAMARIA : NEUROVASCULAR [id number] 12/16/2024 [id number] 60 / / [id number] 6cm, Coil Swiftpac Implanted:Qty : 1 on 04/15/2024 by Yann Jackson MD [place] [facility] [place]/A: Head [employer] 12/16/2028 [id number] / / [id number] 45cm, Coil Swiftpac Implanted:Qty : 1 on 04/15/2024 by Yann Jackson MD [place] [facility]/A: Head [employer] 12/16/2028 [id number] / / [id number] 60cm, Coil Swiftpac Implanted:Qty : 1 on 04/15/2024 by Yann Jackson MD [place] [facility]/A: Head [employer] 11/02/2028 [id number] / / [id number] Coil Target 3d 2sny8ou - [id number] Implanted:Qty : 1 on 04/15/2024 by Yann Jackson MD [place] [facility] [place]A: Head ANNAMARIA : NEUROVASCULAR [id number] 12/24/2024 [id number] 60 / / [id number] Coil Target 360 Soft 7rst00pq - [id number] Implanted:Qty : 1 on 04/15/2024 by Yann Jackson MD [place] [facility] [place]A: Head ANNAMARIA : NEUROVASCULAR [id number] 06/23/2025 [id number] 00 / / [id number] Coil Target 360 Ultra 0nmf80yq - [id number] Implanted:Qty : 1 on 04/15/2024 by Yann Jackson MD [place] [facility] [place]/A: Head ANNAMARIA : NEUROVASCULAR [id number] 05/04/2026 [id number] 00 / / [id number] Coil Target 360 Ultra 1mjl4wu - [id number] Implanted:Qty : 1 on 04/15/2024 by Yann Jackson MD [place] [facility]/A: Head ANNAMARIA : NEUROVASCULAR [id number] 02/03/2025 [id number] 80 / / [id number] 10cm, Coil Swiftpac Implanted:Qty : 2 on 04/15/2024 by Yann Jackson MD [place] [facility] N/A: Head [employer] 12/24/2028 [id number] / / [id number] 30cm, Coil Swiftpac Implanted:Qty : 1 on 04/15/2024 by Yann Jackson MD [place] [facility] N/A: Head [employer] 12/24/2028 [id number] / / [id number] 60cm, Coil Swiftpac Implanted:Qty : 1 on 04/15/2024 by Yann Jackson MD [place] [facility] N/A: Head [employer] 11/02/2028 [id number] / / [id number] 6cm, Coil Swiftpac Implanted:Qty : 1 on 04/15/2024 by Yann Jackson MD [place] [facility] N/A: Head [employer] 12/16/2028 [id number] / / [id number] Stent Vasc Hep 8mmx7.8f267rk - [id number] Implanted:Qty : 1 on 04/16/2024 by Samson Dennis MD [place] [facility] Left: Iliac [employer] [id number] 12/29/2026 [id number] 2A / [id number] / [id number] documented as of this encounter Advance Directives [...] Discussed due to patient's condition Care Teams Operating Room Tech Relationship Specialty Start Date End Date Leticia Wang MD [address] [place] [address] [place] [address] PCP - General Family Medicine 10/02/21 documented as of this encounter
--- OUTSIDE RECORDS SUMMARY | 2024-08-23 23:39 | External Medical Summary | Summary of Care ---
Author Name Unknown Organization [facility] Address [address] [place] [address] Phone [phone] Care Team Providers Care Good Humor Vendor Name Role Phone Leticia Wang MD Primary Care Provide r Reason for Visit * Reason Onset Date Comments Medication Refill 08/10/2024 Encounter Details Date Type Department Care Team (Late st Contact Info) Description 08/10/2024 Refill Family Medicine [address] [address] Tri Caro, RN [address] [place] [address] Allergies Active Allergy Reactions Criticality [...] Nasal Suspension (Flonase)Indic ations:Nasal congestion Administer 1 [place] into nostril in the morning. 16 g [...] No 04/20/2024 Does the household have a [facility] source of income? 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 Not on file [...] LETICIA WANG-- * Telephone Encounter - Tri aCro RN - 08/10/2024 1:26 PM EDT Randa. Patient is in need of refill on her pantoprazole. Thank you! documented in this encounter Plan of Treatment Upcoming Encounters Date Type Department Care Team (Late st Contact Info) Description 08/11/2024 9:00 AM EDT Office Visit [address] [phone] Leticia Wang MD [address] [place] [address] [place] [address] 08/12/2024 12:00 PM EDT Hem/Onc Treatment Hematology/Oncology Treatment, [address] [place] [phone] Claudia, Chair 6 Hem [address]c [address] [address] 08/17/2024 7:30 AM EDT Nurse Only Gastroenterology, [place] Andre [place] 132 [facility] [place] [address] Nurse Dale Andre 132 [facility] [place] [address] 08/25/2024 10:00 AM EDT Office Visit Family Medicine [address] [place] [address] Leticia Wang MD [address] [place] [address] [place] [address] 08/26/2024 1:00 PM EDT Imaging Vascular Lab, [facility] 2nd [facility] [place] [address] [place] [address] 08/26/2024 2:00 PM EDT Imaging Vascular Lab, [facility] 2nd [facility] [place] [address] [place] [address] 09/02/2024 2:30 PM EDT Office Visit Vascular Surgery, [facility] [address] [place] [phone] Fletcher Alford MD [address] [place] [address] 09/10/2024 11:30 AM EDT Office Visit Neurosurgery, [place] [address] [place] [address] Yann Jackson MD [address] [place] [address] 09/18/2024 12:00 PM EDT Appointment Vascular Lab [facility] [address] [place] [address] 09/18/2024 12:30 PM EDT Appointment Vascular Lab [facility] [address] [place] [address] 09/18/2024 1:20 PM EDT Office Visit Vascular Surg [facility] [address] [place] [address] Samson Dennis MD [address] [place] [address] 09/24/2024 11:30 AM EDT Office Visit Gastroenterology, [facility] [address] [place] [address] Ester Wilson CRNP [address] [place] [address] Scheduled Procedures Name Priority Associated Diagnoses Date/Ti me ESOPHAGOGASTRODUODENOSCOPY ( EGD), FLEXIBLE, TRANSORAL, DIAGNOSTIC Recall Contreras esophagus Health Maintenance Due Date Last Done Comments Alpha-1 Antitrypsin 1953 Adult Wellness Visit 2002 DXA Scan 04/06/2018 04/06/2016, 09/2012, 02/08/2011, Additional history exists DISCUSS TOBACCO CESSATION (REFER TO SMARTSET #7761) 08/01/2018 08/01/2017 (Discussed) DTap/Tdap Vaccines (2 - [...] D LEVEL ONCE IN A LIFETIME-USE SMARTSET# 10181 Completed 02/12/2018, 04/25/2015, 09/24/2014, Additional history exists [...] this encounter Medical Devices Implanted Type Area Drivematic Machine Operator Device Identifier Shelf Expiration Date Model / Serial / Lot Coil Target 3d 3ayc1tq - [id number] Implanted:Qty : 1 on 04/15/2024 by Yann Jackson MD at OR [facility] N/A: Head ANNAMARIA : NEUROVASCULAR [id number] 12/16/2024 [id number] 60 / / [id number] 6cm, Coil Swiftpac Implanted:Qty : 1 on 04/15/2024 by Yann Jackson MD at OR [facility] N/A: Head [employer] 12/16/2028 [id number] / / [id number] 45cm, Coil Swiftpac Implanted:Qty : 1 on 04/15/2024 by Yann Jackson MD at OR [facility] N/A: Head [employer] 12/16/2028 [id number] / / [id number] 60cm, Coil Swiftpac Implanted:Qty : 1 on 04/15/2024 by Yann Jackson MD at OR [facility] N/A: Head [employer] 11/02/2028 [id number] / / [id number] Coil Target 3d [id number] - [id number] Implanted:Qty : 1 on 04/15/2024 by Yann Jackson MD at OR [facility] N/A: Head ANNAMARIA : NEUROVASCULAR [id number] 12/24/2024 [id number] 60 / / [id number] Coil Target 360 Soft 4zqt40hc - [id number] Implanted:Qty : 1 on 04/15/2024 by Yann Jackson MD at OR [facility] N/A: Head ANNAMARIA : NEUROVASCULAR [id number] 06/23/2025 [id number] 00 / / [id number] Coil Target 360 Ultra 5aov73ug - [id number] Implanted:Qty : 1 on 04/15/2024 by Yann Jackson MD at OR [facility] N/A: Head ANNAMARIA : NEUROVASCULAR [id number] 05/04/2026 [id number] 00 / / [id number] Coil Target 360 Ultra 7ioq8ut - [id number] Implanted:Qty : 1 on 04/15/2024 by Yann Jackson MD at OR [facility] N/A: Head ANNAMARIA : NEUROVASCULAR [id number] 02/03/2025 [id number] 80 / / [id number] 10cm, Coil Swiftpac Implanted:Qty : 2 on 04/15/2024 by Yann Jackson MD at OR [facility] N/A: Head [employer] 12/24/2028 [id number] / / [id number] 30cm, Coil Swiftpac Implanted:Qty : 1 on 04/15/2024 by Yann Jackson MD at OR [facility] N/A: Head [employer] 12/24/2028 [id number] / / [id number] 60cm, Coil Swiftpac Implanted:Qty : 1 on 04/15/2024 by Yann Jackson MD at OR [facility] N/A: Head [employer] 11/02/2028 [id number] / / [id number] 6cm, Coil Swiftpac Implanted:Qty : 1 on 04/15/2024 by Yann Jackson MD at OR [facility] N/A: Head [employer] 12/16/2028 [id number] / / [id number] Stent Vasc Hep 8mmx7.2g413ks - [id number] Implanted:Qty : 1 on 04/16/2024 by Samson Dennis MD at OR [facility] Left: Iliac [employer] [id number] 12/29/2026 [id number] / [id number] / [id number] documented as of this encounter Advance Directives [...] Discussed due to patient's condition Care Teams Good Humor Vendor Relationship Specialty Start Date End Date Leticia Wang MD [address] [place] [address] [place] [address] PCP - General Family Medicine 10/02/21 documented as of this encounter
--- OUTSIDE RECORDS SUMMARY | 2024-08-23 23:39 | External Medical Summary | Summary of Care ---
Author Name Unknown Organization [facility] Address [address] [place] [address] Phone [phone] Care Team Providers Care Video Manager Name Role Phone Bharati Wang MD Primary Care Provide r Reason for Visit * Reason Onset Date Comments Other 08/07/2024 Encounter Details Date Type Department Care Team (Late st Contact Info) Description 08/07/2024 Telephone Gastroenterology, [facility] [address] [place] [address] Ester Wilson CRNP [address] [place] [address] Other (/) Allergies Active Allergy Reactions Criticality [...] Nasal Suspension (Flonase)Indica tions:Nasal congestion Administer 1 [place] into nostril in the morning. 16 g [...] No 04/20/2024 Does the household have a [facility] source [facility] income? 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 Pt aware of prep instructions. * Telephone Encounter - Ester Wilson CRNP - 08/10/2024 9:54 AM EDT Spoke jillian Hampton. This pt was already seen for the VCE on 07/24, so tomorrow's appt not needed and Berta says we have prior auth for the VCE and she'll call to give the pt a VCE date/time and cancel tomorrow's appt. * Telephone Encounter - Manda Meyer OSA - 08/10/2024 9:02 AM EDT Pt is scheduled for the at 4 * Telephone Encounter - Ester Wilson CRNP - 08/08/2024 6:56 AM EDT I can double book at 4PM on Saturday the or at at 4PM. * Telephone Encounter - Manda Meyer OSA - 08/07/2024 2:58 PM EDT Ester, We received a fax from [facility] that they would like for this pt [...] 08/11/2024 9:00 AM EDT Office Visit Family [address] [place] [phone] Bharati Wang MD [address] [place] [address] [place] [address] 08/12/2024 12:00 PM EDT Hem/Onc Treatment Hematology/Oncology Treatment, [place] [facility] [phone] [place], Chair 6 Hem Onc Sc[place] [facility] [address] 08/17/2024 7:30 AM EDT Nurse Only Gastroenterology, [facility] [place] [address] Nurse Dale Andre [facility] 132 [facility] [place] [address] 08/25/2024 10:00 AM EDT Office Visit [address] [place] [address] Bharati Wang MD [address] [place] [address] [place] [address] 08/26/2024 1:00 PM EDT Imaging Vascular Lab, [facility] 2nd [facility] [address] [place] [address] 08/26/2024 2:00 PM EDT Imaging Vascular Lab, [address] [place] [address] 09/02/2024 2:30 PM EDT Office Visit Vascular Surgery, [facility] [address] [place] [phone] Fletcher Alford MD [address] [facility] [place] [address] 09/10/2024 11:30 AM EDT Office Visit Neurosurgery, [place] [address] [place] [address] Yann Jackson MD [address] [place] [phone] 09/18/2024 12:00 PM EDT Appointment Vascular Lab [place] [address] [place] [address] 09/18/2024 12:30 PM EDT Appointment Vascular Lab [place] [address] [place] [address] 09/18/2024 1:20 PM EDT Office Visit Vascular Surg [place] [address] [place] [address] Samson Dennis MD [facility] [place] [address] 09/24/2024 11:30 AM EDT Office Visit Gastroenterology, [facility] 132 [facility] [place] [address] Ester Wilson CRNP [address] [facility] [place] [address] Scheduled Procedures Name Priority Associated Diagnoses Date/Ti [...] D LEVEL ONCE IN A LIFETIME-USE SMARTSET# 44541 Completed 02/12/2018, 04/25/2015, 09/24/2014, Additional history exists [...] this encounter Medical Devices Implanted Type Area Amalgamator Device Identifier Shelf Expiration Date Model / Serial / Lot Coil Target 3d 0rer7hr - [id number] Implanted:Qty : 1 on 04/15/2024 by Yann Jackson MD at OR [place] N/A: Head ANNAMARIA : NEUROVASCULAR [id number] 12/16/2024 [id number] 60 / / [id number] 6cm, Coil Swiftpac Implanted:Qty : 1 on 04/15/2024 by Yann Jackson MD at OR [place] N/A: Head [employer] 12/16/2028 [id number] / / [id number] 45cm, Coil Swiftpac Implanted:Qty : 1 on 04/15/2024 by Yann Jackson MD at OR [place] N/A: Head [employer] 12/16/2028 [id number] / / [id number] 60cm, Coil Swiftpac Implanted:Qty : 1 on 04/15/2024 by Yann Jackson MD at OR [place] N/A: Head [employer] 11/02/2028 [id number] / / [id number] Coil Target 3d 2tlp1kv - [id number] Implanted:Qty : 1 on 04/15/2024 by Yann Jackson MD at OR [place] N/A: Head ANNAMARIA : NEUROVASCULAR [id number] 12/24/2024 [id number] 60 / / [id number] Coil Target 360 Soft 3isr19xs - [id number] Implanted:Qty : 1 on 04/15/2024 by Yann Jackson MD at OR [place] N/A: Head ANNAMARIA : NEUROVASCULAR [id number] 06/23/2025 [id number] 00 / / [id number] Coil Target 360 Ultra 8voa55pv - [id number] Implanted:Qty : 1 on 04/15/2024 by Yann Jackson MD at OR [place] N/A: Head ANNAMARIA : NEUROVASCULAR [id number] 05/04/2026 [id number] 00 / / [id number] Coil Target 360 Ultra 3dxp3rd - [id number] Implanted:Qty : 1 on 04/15/2024 by Yann Jackson MD at OR [place] N/A: Head ANNAMARIA : NEUROVASCULAR [id number] 02/03/2025 [id number] 80 / / [id number] 10cm, Coil Swiftpac Implanted:Qty : 2 on 04/15/2024 by Yann Jackson MD at OR [place] N/A: Head [employer] 12/24/2028 [id number] / / [id number] 30cm, Coil Swiftpac Implanted:Qty : 1 on 04/15/2024 by Yann Jackson MD at OR [place] N/A: Head [employer] 12/24/2028 [id number] / / [id number] 60cm, Coil Swiftpac Implanted:Qty : 1 on 04/15/2024 by Yann Jackson MD at OR [place] N/A: Head [employer] 11/02/2028 [id number] / / [id number] 6cm, Coil Swiftpac Implanted:Qty : 1 on 04/15/2024 by Yann Jackson MD at OR [place] N/A: Head [employer] 12/16/2028 [id number] / / [id number] Stent Vasc Hep 8mmx7.0o137kl - [id number] Implanted:Qty : 1 on 04/16/2024 by Samson Dennis MD at OR [place] Left: Iliac [employer] [id number] 12/29/2026 [id number] 2A / [id number] / [id number] documented as of this encounter Advance Directives [...] Discussed due to patient's condition Care Teams Video Manager Relationship Specialty Start Date End Date Bharati Wang MD [address] [place] [address] [place] [address] PCP - General Family Medicine 10/02/21 documented as of this encounter
--- OUTSIDE RECORDS SUMMARY | 2024-08-23 23:39 | External Medical Summary | Summary of Care ---
Author Name Unknown Organization [facility] Address [address] [place] [address] Phone [phone] Care Team Providers Care Proposal Specialist Name Role Phone Bharati Wang MD Primary Care Provide r Reason for Visit * Reason Comments Infusion Venofer 3/4 Encounter Details Date Type Department Care Team (Latest Contact Info) Description 08/07/2024 12:00 PM EDT Hem/Onc Treatment Hematology/Oncology Treatment, [address] [address] Claudia Chair 4 Hem On[address] [address] Iron deficiency anemia due to chronic blood [...] Nasal Suspension (Flonase)Indica tions:Nasal congestion Administer 1 [place] into nostril in the morning. 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 Not on file Not [...] next week. Nurse will reach out to family preservation caseworker and patient is seeing family practice in [...] Description 08/11/2024 9:00 AM EDT Office Visit [address] [phone] Bharati Wang MD [address] [place] [address] [place] [address] 08/12/2024 12:00 PM EDT Hem/Onc Treatment Hematology/Oncology Treatment, [place] 200 [facility] [place] [phone] Chair Claudia 6 Hem Onc Scenery 200 [facility] [place] [address] 08/25/2024 10:00 AM EDT Office Visit [address] [place] [address] Bharati Wang MD [address] [place] [address] [place] [address] 08/26/2024 1:00 PM EDT Imaging Vascular Lab, [facility] 2nd [facility] [address] [place] [address] 08/26/2024 2:00 PM EDT Imaging Vascular Lab, [facility] 2nd [facility] [address] [place] [address] 09/02/2024 2:30 PM EDT Office Visit Vascular Surgery, [facility] [address] [place] [address] Fletcher Alford MD [address] [place] [address] 09/10/2024 11:30 AM EDT Office Visit Neurosurgery, [place] [address] [place] [address] Yann Jackson MD [address] [place] [address] 09/18/2024 12:00 PM EDT Appointment Vascular Lab [facility] [address] [place] [address] 09/18/2024 12:30 PM EDT Appointment Vascular Lab [facility] [address] [place] [address] 09/18/2024 1:20 PM EDT Office Visit Vascular Surg [facility] [address] [place] [address] Samson Dennis MD [address] [place] [address] 09/24/2024 11:30 AM EDT Office Visit Gastroenterology, [facility] [address] [place] [address] Ester Wilson CRNP [address] [place] [address] Scheduled Procedures Name Priority Associated Diagnoses Date/Ti me ESOPHAGOGASTRODUODENOSCOPY ( EGD), FLEXIBLE, TRANSORAL, DIAGNOSTIC Recall Contreras esophagus Health Maintenance Due Date Last Done Comments Alpha-1 Antitrypsin 1953 Adult Wellness Visit 2002 DXA Scan 04/06/2018 04/06/2016, 09/2012, 02/08/2011, Additional history exists DISCUSS TOBACCO CESSATION (REFER TO SMARTSET #2117) 08/01/2018 08/01/2017 (Discussed) DTap/Tdap Vaccines (2 - [...] D LEVEL ONCE IN A LIFETIME-USE SMARTSET# 22190 Completed 02/12/2018, 04/25/2015, 09/24/2014, Additional history exists [...] this encounter Medical Devices Implanted Type Area Wrapper Stemmer Hand Device Identifier Shelf Expiration Date Model / Serial / Lot Coil Target 3d 6zop4oc - [id number] Implanted:Qty : 1 on 04/15/2024 by Yann Jackson MD at OR [facility] N/A: Head ANNAMARIA : NEUROVASCULAR [id number] 12/16/2024 [id number] 60 / / [id number] 6cm, Coil Swiftpac Implanted:Qty : 1 on 04/15/2024 by Yann Jackson MD at OR [facility] N/A: Head [employer] 12/16/2028 [id number] / / [id number] 45cm, Coil Swiftpac Implanted:Qty : 1 on 04/15/2024 by Yann Jackson MD at OR [facility] N/A: Head [employer] 12/16/2028 [id number] / / [id number] 60cm, Coil Swiftpac Implanted:Qty : 1 on 04/15/2024 by Yann Jackson MD at OR [facility] N/A: Head [employer] 11/02/2028 [id number] / / [id number] Coil Target 3d 3tlb5oy - [id number] Implanted:Qty : 1 on 04/15/2024 by Yann Jackson MD at OR [facility] N/A: Head ANNAMARIA : NEUROVASCULAR [id number] 12/24/2024 [id number] 60 / / [id number] Coil Target 360 Soft 7jyg21br - [id number] Implanted:Qty : 1 on 04/15/2024 by Yann Jackson MD at OR [facility] N/A: Head ANNAMARIA : NEUROVASCULAR [id number] 06/23/2025 [id number] 00 / / [id number] Coil Target 360 Ultra 3oao68ql - [id number] Implanted:Qty : 1 on 04/15/2024 by Yann Jackson MD at OR [facility] N/A: Head ANNAMARIA : NEUROVASCULAR [id number] 05/04/2026 [id number] 00 / / [id number] Coil Target 360 Ultra 0qfh6pr - [id number] Implanted:Qty : 1 on 04/15/2024 by Yann Jackson MD at OR [facility] N/A: Head ANNAMARIA : NEUROVASCULAR [id number] 02/03/2025 [id number] 80 / / [id number] 10cm, Coil [employer]pac Implanted:Qty : 2 on 04/15/2024 by Yann Jackson MD at OR [facility] N/A: Head [employer] 12/24/2028 [id number] / / [id number] 30cm, Coil Swiftpac Implanted:Qty : 1 on 04/15/2024 by Yann Jackson MD at OR [facility] N/A: Head [employer] 12/24/2028 [id number] / / [id number] 60cm, Coil Swiftpac Implanted:Qty : 1 on 04/15/2024 by Yann Jackson MD at OR [facility] N/A: Head [employer] 11/02/2028 [id number] / / [id number] 6cm, Coil [employer]pac Implanted:Qty : 1 on 04/15/2024 by Yann Jackson MD at OR [facility] N/A: Head [employer] 12/16/2028 [id number] / / [id number] Stent Vasc Hep 8mmx7.6s089dz - [id number] Implanted:Qty : 1 on 04/16/2024 by Samson Dennis MD at OR [facility] Left: Iliac [employer] [id number] 12/29/2026 [id number] 2A / [id number] / [id number] documented as of this encounter Visit Diagnoses [...] Discussed due to patient's condition Care Teams Proposal Specialist Relationship Specialty Start Date End Date Bharati Wang MD [address] [place] [address] [place] [address] PCP - General Family Medicine 10/02/21 documented as of this encounter
--- OUTSIDE RECORDS SUMMARY | 2024-08-23 23:39 | External Medical Summary | Summary of Care ---
Author Name Unknown Organization [facility] Address [address] [place] [address] Phone [phone] Care Team Providers Care Founder And Chief Executive Officer Name Role Phone Bharati Wang MD Primary Care Provide r Reason for Visit * Reason Onset Date Comments Other 08/07/2024 Encounter Details Date Type Department Care Team (Late st Contact Info) Description 08/07/2024 Telephone Gastroenterology, [facility] [address] [place] [address] Ester Wilson CRNP [address] [place] [address] Other (/) Allergies Active Allergy Reactions Criticality [...] Nasal Suspension (Flonase)Indica tions:Nasal congestion Administer 1 [place] into nostril in the morning. 16 g [...] No 04/20/2024 Does the household have a [facility] source of income? 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 [...] EDT Ester, We received a fax from [facility] that they would like for this pt [...] 08/11/2024 9:00 AM EDT Office Visit Family [address] [place] [phone] Bharati Wang MD [address] [place] [address] [place] [address] 08/12/2024 12:00 PM EDT Hem/Onc Treatment Hematology/Oncology Treatment, [place] [address] [facility] [phone] [place], Chair 6 Hem Onc Scenery 200 [facility] [address] 08/17/2024 7:30 AM EDT Nurse Only Gastroenterology, [facility] [place] [address] Nurse Dale Andre [facility] 132 [facility] [place] [address] 08/25/2024 10:00 AM EDT Office Visit [address] [place] [address] Bharati Wang MD [address] [place] [address] [place] [address] 08/26/2024 1:00 PM EDT Imaging Vascular Lab, [facility] 2nd [facility] [address] [place] [address] 08/26/2024 2:00 PM EDT Imaging Vascular Lab, [address] [place] [address] 09/02/2024 2:30 PM EDT Office Visit Vascular Surgery, [facility] [address] [place] [phone] Fletcher Alford MD [address] [facility] [place] [address] 09/10/2024 11:30 AM EDT Office Visit Neurosurgery, [place] [address] [place] [address] Yann Jackson MD [address] [place] [address] 09/18/2024 12:00 PM EDT Appointment Vascular Lab [place] [address] [place] [address] 09/18/2024 12:30 PM EDT Appointment Vascular Lab [place] [address] [place] [address] 09/18/2024 1:20 PM EDT Office Visit Vascular Surg [place] [address] [place] [address] Samson Dennis MD [facility] [place] [address] 09/24/2024 11:30 AM EDT Office Visit Gastroenterology, [facility] 132 [facility] [place] [address] Ester Wilson CRNP [facility] [place] [address] Scheduled Procedures Name Priority Associated Diagnoses Date/Ti [...] D LEVEL ONCE IN A LIFETIME-USE SMARTSET# 19976 Completed 02/12/2018, 04/25/2015, 09/24/2014, Additional history exists [...] encounter Medical Devices Implanted Type Area Rn Practitioner Device Identifier Shelf Expiration Date Model / Serial / Lot Coil Target 3d 3obp8cx - [id number] Implanted:Qty : 1 on 04/15/2024 by [place] [facility] [place] Head ANNAMARIA : NEUROVASCULAR [id number] 12/16/2024 [id number] 60 / / [id number] 6cm, Coil Swiftpac Implanted:Qty : 1 on 04/15/2024 by Yann Jackson MD [place] [facility] [place]: Head [employer] 12/16/2028 [id number] / / [id number] 45cm, Coil Swiftpac Implanted:Qty : 1 on 04/15/2024 by Yann Jackson MD [place] [facility] [place]: Head [employer] 12/16/2028 [id number] / / [id number] 60cm, Coil Swiftpac Implanted:Qty : 1 on 04/15/2024 by Yann Jackson MD [place] [facility] [place]: Head [employer] 11/02/2028 [id number] / / [id number] Coil Target 3d 7uow3ol - [id number] Implanted:Qty : 1 on 04/15/2024 by Yann Jackson MD [place] [facility] [place]: Head ANNAMARIA : NEUROVASCULAR [id number] 12/24/2024 [id number] 60 / / [id number] Coil Target 360 Soft 8tuo76lu - [id number] Implanted:Qty : 1 on 04/15/2024 by Yann Jackson MD [place] [facility] [place]: Head ANNAMARIA : NEUROVASCULAR [id number] 06/23/2025 [id number] 00 / / [id number] Coil Target 360 Ultra 6fgt32bb - [id number] Implanted:Qty : 1 on 04/15/2024 by Yann Jackson MD [place] [facility] [place]: Head ANNAAMRIA : NEUROVASCULAR [id number] 05/04/2026 [id number] 00 / / [id number] Coil Target 360 Ultra 7qtb3fe - [id number] Implanted:Qty : 1 on 04/15/2024 by Yann Jackson MD [place] [facility] [place]: Head ANNAMARIA : NEUROVASCULAR [id number] 02/03/2025 [id number] 80 / / [id number] 10cm, Coil Swiftpac Implanted:Qty : 2 on 04/15/2024 by Yann Jackson MD [place] [facility] [place]A: Head [employer] 12/24/2028 [id number] / / [id number] 30cm, Coil Swiftpac Implanted:Qty : 1 on 04/15/2024 by Yann Jackson MD [place] [facility] [place]A: Head [employer] 12/24/2028 [id number] / / [id number] 60cm, Coil Swiftpac Implanted:Qty : 1 on 04/15/2024 by Yann Jackson MD [place] [facility] [place]/A: Head [employer] 11/02/2028 [id number] / / [id number] 6cm, Coil Swiftpac Implanted:Qty : 1 on 04/15/2024 by Yann Jackson MD at [place] [facility] [place]/A: Head [employer] 12/16/2028 [id number] / / [id number] Stent Vasc Hep 8mmx7.0j273am - [id number] Implanted:Qty : 1 on 04/16/2024 by Samson Dennis MD [place] [facility] Left: Iliac [employer] [id number] 12/29/2026 [id number] 2A / [id number] / [id number] documented as of this encounter Advance Directives [...] Discussed due to patient's condition Care Teams Founder And Chief Executive Officer Relationship Specialty Start Date End Date Bharati Wang MD [address] [place] [address] [place] [address] PCP - General Family Medicine 10/02/21 documented as of this encounter
--- OUTSIDE RECORDS SUMMARY | 2024-08-23 23:39 | External Medical Summary | Summary of Care ---
Author Name Unknown Organization [facility] Address [address] [place] [address] Phone [phone] Care Team Providers Care Machine Fancy Stitcher Name Role Phone Bharati Wang MD Primary Care Provide r Reason for Visit * Reason Onset Date Comments Other 08/07/2024 Encounter Details Date Type Department Care Team (Late st Contact Info) Description 08/07/2024 Telephone Gastroenterology, [facility] [address] [place] [address] Ester Wilson CRNP [address] [place] [address] Other (/) Allergies Active Allergy Reactions Criticality [...] Nasal Suspension (Flonase)Indica tions:Nasal congestion Administer 1 [place] into nostril in the morning. 16 g [...] No 04/20/2024 Does the household have a [facility] source of income? (Household - for [...] EDT Ester, We received a fax from [facility] that they would like for [...] 9:00 AM EDT Office Visit Family [address] [place] [address] Bharati Wang MD [address] [place] [address] [place] [address] 08/12/2024 12:00 PM EDT Hem/Onc Treatment Hematology/Oncology Treatment, [place] [address] [facility] [phone] Park, Chair 6 Hem Onc Scenery 200 [facility] [place] [facility] [address] 08/17/2024 7:30 AM EDT Nurse Only Gastroenterology, [facility] [place] [address] Nurse Dale Andre [facility] 132 [facility] [place] [address] 08/25/2024 10:00 AM EDT Office Visit [address] [place] [address] Bharati Wang MD [address] [place] [address] [place] [address] 08/26/2024 1:00 PM EDT Imaging Vascular Lab, [facility] 2nd [facility] [address] [place] [address] 08/26/2024 2:00 PM EDT Imaging Vascular Lab, [address] [place] [address] 09/02/2024 2:30 PM EDT Office Visit Vascular Surgery, [facility] [address] [place] [phone] Fletcher Alford MD [address] [facility] [place] [address] 09/10/2024 11:30 AM EDT Office Visit Neurosurgery, [place] [address] [place] [address] Yann Jackson MD [address] [place] [address] 09/18/2024 12:00 PM EDT Appointment Vascular Lab [place] [address] [place] [address] 09/18/2024 12:30 PM EDT Appointment Vascular Lab [place] [address] [place] [address] 09/18/2024 1:20 PM EDT Office Visit Vascular Surg [place] [address] [place] [address] Samson Dennis MD [facility] [place] [address] 09/24/2024 11:30 AM EDT Office Visit Gastroenterology, [facility] 132 [facility] [place] [address] Ester Wilson CRNP [facility] [place] [address] Scheduled Procedures Name Priority Associated Diagnoses Date/Ti [...] D LEVEL ONCE IN A LIFETIME-USE SMARTSET# 23659 Completed 02/12/2018, 04/25/2015, 09/24/2014, Additional history exists [...] this encounter Medical Devices Implanted Type Area Applications Developer Device Identifier Shelf Expiration Date Model / Serial / Lot Coil Target 3d 2sue3hd - [id number] Implanted:Qty : 1 on 04/15/2024 by Yann Jackson MD [place] [facility] [place]: Head ANNAMARIA : NEUROVASCULAR [id number] 12/16/2024 [id number] 60 / / [id number] 6cm, Coil Swiftpac Implanted:Qty : 1 on 04/15/2024 by Yann Jackson MD [place] [facility] N/A: Head [employer] 12/16/2028 [id number] / / [id number] 45cm, Coil Swiftpac Implanted:Qty : 1 on 04/15/2024 by Yann Jackson MD [place] [facility] [place]/A: Head [employer] 12/16/2028 [id number] / / [id number] 60cm, Coil Swiftpac Implanted:Qty : 1 on 04/15/2024 by Yann Jackson MD [place] [facility] [place]/A: Head [employer] 11/02/2028 [id number] / / [id number] Coil Target 3d 0gwj9as - [id number] Implanted:Qty : 1 on 04/15/2024 by Yann Jackson MD [place] [facility] [place]/A: Head ANNAMARIA : NEUROVASCULAR [id number] 12/24/2024 [id number] 60 / / [id number] Coil Target 360 Soft 5nvl64vp - [id number] Implanted:Qty : 1 on 04/15/2024 by Yann Jackson MD [place] [facility] [place]A: Head ANNAMARIA : NEUROVASCULAR [id number] 06/23/2025 [id number] 00 / / [id number] Coil Target 360 Ultra 5erj22wo - [id number] Implanted:Qty : 1 on 04/15/2024 by Yann Jackson MD [place] [facility] [place]/A: Head ANNAMARIA : NEUROVASCULAR [id number] 05/04/2026 [id number] 00 / / [id number] Coil Target 360 Ultra 1pae1nf - [id number] Implanted:Qty : 1 on 04/15/2024 by Yann Jackson MD [place] [facility] [place]/A: Head ANNAMARIA : NEUROVASCULAR [id number] 02/03/2025 [id number] 80 / / [id number] 10cm, Coil Swiftpac Implanted:Qty : 2 on 04/15/2024 by Yann Jackson MD [place] [facility] [place]/A: Head [employer] 12/24/2028 [id number] / / [id number] 30cm, Coil Swiftpac Implanted:Qty : 1 on 04/15/2024 by Yann Jackson MD [place] [facility] N/A: Head [employer] 12/24/2028 [id number] / / [id number] 60cm, Coil Swiftpac Implanted:Qty : 1 on 04/15/2024 by Yann Jackson MD [place] [facility] N/A: Head [employer] 11/02/2028 [id number] / / [id number] 6cm, Coil Swiftpac Implanted:Qty : 1 on 04/15/2024 by Yann Jackson MD at [place] [facility] N/A: Head [employer] 12/16/2028 [id number] / / [id number] Stent Vasc Hep 8mmx7.2t402lp - [id number] Implanted:Qty : 1 on 04/16/2024 by Samson Dennis MD at [place] [facility] Left: Iliac [employer] [id number] 12/29/2026 [id number] 2A / [id number] / [id number] documented as of this encounter Advance Directives [...] Discussed due to patient's condition Care Teams Machine Fancy Stitcher Relationship Specialty Start Date End Date Bharati Wang MD [address] [place] [address] [place] [address] PCP - General Family Medicine 10/02/21 documented as of this encounter
--- OUTSIDE RECORDS SUMMARY | 2024-08-23 23:40 | External Medical Summary | Summary of Care ---
Author Name Unknown Organization [facility] Address [address] [place] [address] Phone [phone] Care Team Providers Care Molding Technician Name Role Phone Bharati Wang MD Primary Care Provide r Reason for Visit * Reason Comments Infusion Venofer 05/30 Encounter Details Date Type Department Care Team (Latest Contact Info) Description 07/23/2024 1:30 PM EST Hem/Onc Treatment Hematology/Oncology Treatment, [address] [address] Claudia, Chair 1 [address] [address] Iron deficiency anemia due to chronic blood [...] as of this encounter (statuses as of 08/03/2024) Medications VITAMIN D 2000 UNITS PO CAPS [...] as of this encounter (statuses as of 08/03/2024) Active Problems Problem Noted Date Diagnosed Date [...] as of this encounter (statuses as of 08/03/2024) Resolved Problems Problem Noted Date Diagnosed Date [...] as of this encounter (statuses as of 08/03/2024) Immunizations Name Administration Dates Next Due COVID-19 [...] No 04/20/2024 Does the household have a [facility] source of income? 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 Not on file Not [...] Team (Late st Contact Info) Description 08/07/2024 12:00 PM EDT Hem/Onc Treatment Hematology/Oncology Treatment, [address] [phone] Claudia, Chair 4 [facility] [address] [place] [address] [place] [address] 08/12/2024 12:00 PM EDT Hem/Onc Treatment Hematology/Oncology Treatment, [address] [address] Claudia, Chair 6 Hem Onc Scen[address] [place] [address] [place] [address] 08/25/2024 10:00 AM EDT Office Visit Family Medicine [address] [place] [address] Bharati Wang MD [address] [place] [address] [place] [address] 09/10/2024 11:30 AM EDT Office Visit Neurosurgery, [place] [address] [place] [address] Yann Jackson MD [address] [place] [address] 09/18/2024 12:00 PM EDT Appointment Vascular Lab [facility], [place] [address] [place] [address] 09/18/2024 12:30 PM EDT Appointment Vascular Lab [facility], [place] [address] [place] [address] 09/18/2024 1:20 PM EDT Office Visit Vascular Surg [facility], [place] [address] [place] [address] Samson Dennis MD [facility] [place] [address] 09/24/2024 11:30 AM EDT Office Visit Gastroenterology, [facility] 132 [place] [address] Ester Wilson CRNP [facility] [place] [address] Scheduled Procedures Name Priority Associated Diagnoses Date/Ti [...] D LEVEL ONCE IN A LIFETIME-USE SMARTSET# 42330 Completed 02/12/2018, 04/25/2015, 09/24/2014, Additional history exists [...] this encounter Medical Devices Implanted Type Area Master [employer] Device Identifier Shelf Expiration Date Model / Serial / Lot Coil Target 3d 0rsk0mu - [id number] Implanted:Qty : 1 on 04/15/2024 [place] [facility] [place] Head ANNAMARIA : NEUROVASCULAR [id number] 12/16/2024 [id number] 60 / / [id number] 6cm, Coil Swiftpac Implanted:Qty : 1 on 04/15/2024 by Yann [place] [facility] [place]: Head [employer] 12/16/2028 [id number] / / [id number] 45cm, Coil Swiftpac Implanted:Qty : 1 on 04/15/2024 by Yann Jackson [place] [facility] [place]: Head [employer] 12/16/2028 [id number] / / [id number] 60cm, Coil Swiftpac Implanted:Qty : 1 on 04/15/2024 by Yann [place] [facility] [place]: Head [employer] 11/02/2028 [id number] / / [id number] Coil Target 3d 0voj7dt - [id number] Implanted:Qty : 1 on 04/15/2024 by Yann Jackson [place] [facility] [place]: Head ANNAMARIA : NEUROVASCULAR [id number] 12/24/2024 [id number] 60 / / [id number] Coil Target 360 Soft 2fqj09ka - [id number] Implanted:Qty : 1 on 04/15/2024 by Yann Jackson [place] [facility] [place]: Head ANNAMARIA : NEUROVASCULAR [id number] 06/23/2025 [id number] 00 / / [id number] Coil Target 360 Ultra 1myt24sh - [id number] Implanted:Qty : 1 on 04/15/2024 by Yann [place] [facility] [place]: Head ANNAMARIA : NEUROVASCULAR [id number] 05/04/2026 [id number] 00 / / [id number] Coil Target 360 Ultra 0cqk1nj - [id number] Implanted:Qty : 1 on 04/15/2024 by Yann Jackson [place] [facility] [place]: Head ANNAMARIA : NEUROVASCULAR [id number] 02/03/2025 [id number] 80 / / [id number] 10cm, Coil Swiftpac Implanted:Qty : 2 on 04/15/2024 by Yann [place] [facility] [place]: Head [employer] 12/24/2028 [id number] / / [id number] 30cm, Coil Swiftpac Implanted:Qty : 1 on 04/15/2024 by Yann Jackson [place] [facility] [place]: Head [employer] 12/24/2028 [id number] / / [id number] 60cm, Coil Swiftpac Implanted:Qty : 1 on 04/15/2024 by Yann Jackson [place] [facility] [place]: Head [employer] 11/02/2028 [id number] / / [id number] 6cm, Coil Swiftpac Implanted:Qty : 1 on 04/15/2024 by Yann Jackson [place] [facility] [place]: Head [employer] 12/16/2028 [id number] / / [id number] Stent Vasc Hep 8mmx7.7b900zr - [id number] Implanted:Qty : 1 on 04/16/2024 by Samson Dennis [place] [facility] Left: Iliac [employer] [id number] 12/29/2026 [id number] 2A / [id number] / [id number] documented as of this encounter Visit Diagnoses [...] Discussed due to patient's condition Care Teams Molding Technician Relationship Specialty Start Date End Date Bharati Wang MD [address] [place] [address] [place] [address] PCP - General Family Medicine 10/02/21 documented as of this encounter
--- OUTSIDE RECORDS SUMMARY | 2024-08-23 23:40 | External Medical Summary | Summary of Care ---
Author Name Unknown Organization [facility] Address [address] [place] [address] Phone [phone] Care Team Providers Care Fund Manager Name Role Phone Bharati Wang MD Primary Care Provide r Reason for Visit * Reason Onset Date Comments Advice 08/06/2024 Encounter Details Date Type Department Care Team (Late st Contact Info) Description 08/06/2024 Telephone Vascular Surg [facility] [address], [place] [phone] Armen Stone MD [address] [place], [place] [phone] Advice Allergies Active Allergy Reactions Criticality Noted [...] as of this encounter (statuses as of 08/06/2024) Medications VITAMIN D 2000 UNITS PO CAPS [...] Nasal Suspension (Flonase)Indica tions:Nasal congestion Administer 1 [place] into nostril in the morning. 16 g 5 Active documented as of this encounter (statuses as of 08/06/2024) Active Problems Problem Noted Date Diagnosed Date [...] as of this encounter (statuses as of 08/06/2024) Resolved Problems Problem Noted Date Diagnosed Date [...] of humerus 08/07/2019 01/22/2024 Overview (08/10/2019): [place] [facility] Bilateral sciatica 06/01/2019 4 Spasm of [...] as of this encounter (statuses as of 08/06/2024) Immunizations Name Administration Dates Next Due COVID-19 [...] No 04/20/2024 Does the household have a [facility] source [facility] income? 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 Abby El LPN 08/06/2024 10:40 AM * Telephone Encounter - Aremn Stone MD - 08/06/2024 10:31 AM EDT Vascular [facility] for this patient admitted for a GI bleed. Underwent emergent left LE thrombectomy and iliac stent placement in Mar 2024 byDr. Dennis following a neurosurg procedure. Multiple repeat admissions for GI bleeding since the procedure, with apparently negative endoscopy. I advised stopping Eliquis and continuing plavix. We will see patient in our [facility] clinic next week for short term follow up and see if we can give any more definitive advice. Patient lives in [place] so [facility] is best option for her. Team - please arrange for next week, with left LE arterial duplex and HANNAH Armen Stone MD Section of Vascular and [place] [address] [phone] documented in this encounter Plan of Treatment Upcoming Encounters Date Type Department Care Team (Late st Contact Info) Description 08/07/2024 12:00 PM EDT Hem/Onc Treatment Hematology/[address] [address] Claudia, Chair [address] [place] [address] 08/11/2024 9:00 AM EDT Office Visit Family Medicine [address] [place] [phone] Bharati Wang MD [address] [place] [address] [place] [address] 08/12/2024 12:00 PM EDT Hem/Onc Treatment Hematology/[address]cology [address], [address] [address] Claudia, Chair 6 Hem Onc Scenery [address] [place] [address] 08/25/2024 10:00 AM EDT Office Visit [address] [phone] Bharati Wang MD [address] [place] [address] [place] [address] 09/10/2024 11:30 AM EDT Office Visit Neurosurgery, [place] [address] [place] [address] Yann Jackson MD [address] [place] [phone] 09/18/2024 12:00 PM EDT Appointment Vascular Lab [facility] [address] [place] [address] 09/18/2024 12:30 PM EDT Appointment Vascular Lab [facility] [address] [place] [address] 09/18/2024 1:20 PM EDT Office Visit Vascular Surg [facility] [address] [place] [address] Samson Dennis MD [address] [place] [address] 09/24/2024 11:30 AM EDT Office Visit Gastroenterology, [facility] [address] [place] [address] Ester Wilson CRNP [address] [place] [address] Scheduled Procedures Name Priority Associated Diagnoses Date/Ti me ESOPHAGOGASTRODUODENOSCOPY ( EGD), FLEXIBLE, TRANSORAL, DIAGNOSTIC Recall Contreras esophagus Health Maintenance Due Date Last Done Comments Alpha-1 Antitrypsin 1953 Adult Wellness Visit 2002 DXA Scan 04/06/2018 04/06/2016, 09/2012, 02/08/2011, Additional history exists DISCUSS TOBACCO CESSATION (REFER TO SMARTSET #9831) 08/01/2018 08/01/2017 (Discussed) DTap/Tdap Vaccines (2 - [...] D LEVEL ONCE IN A LIFETIME-USE SMARTSET# 33143 Completed 02/12/2018, 04/25/2015, 09/24/2014, Additional history exists [...] this encounter Medical Devices Implanted Type Area Human Resources Temp Device Identifier Shelf Expiration Date Model / Serial / Lot Coil Target 3d [id number] - [id number] Implanted:Qty : 1 on 04/15/2024 by Yann Jackson MD [place] [facility] [place]: Head ANNAMARIA : NEUROVASCULAR [id number] 12/16/2024 [id number] 60 / / [id number] 6cm, Coil Swiftpac Implanted:Qty : 1 on 04/15/2024 by Yann Jackson MD at [place] [facility] N/A: Head [employer] 12/16/2028 [id number] / / [id number] 45cm, Coil Swiftpac Implanted:Qty : 1 on 04/15/2024 by Yann Jackson MD at [place] [facility] N/A: Head [employer] 12/16/2028 [id number] / / [id number] 60cm, Coil Swiftpac Implanted:Qty : 1 on 04/15/2024 by Yann Jackson MD at [place] [facility] N/A: Head [employer] 11/02/2028 [id number] / / [id number] Coil Target 3d 1ttz4bo - [id number] Implanted:Qty : 1 on 04/15/2024 by Yann Jackson MD at [place] [facility] N/A: Head ANNAMARIA : NEUROVASCULAR [id number] 12/24/2024 [id number] 60 / / [id number] Coil Target 360 Soft 6tuw18rm - [id number] Implanted:Qty : 1 on 04/15/2024 by Yann Jackson MD at [place] [facility]/A: Head ANNAMARIA : NEUROVASCULAR [id number] 06/23/2025 [id number] / / [id number] Coil Target 360 Ultra 0coz29lm - [id number] Implanted:Qty : 1 on 04/15/2024 by Yann Jackson MD at [place] [facility] N/A: Head ANNAMARIA : NEUROVASCULAR [id number] 05/04/2026 [id number] 00 / / [id number] Coil Target 360 Ultra 2fxe5ft - [id number] Implanted:Qty : 1 on 04/15/2024 by Yann Jackson MD at [place] [facility] N/A: Head ANNAMARIA : NEUROVASCULAR [id number] 02/03/2025 [id number] 80 / / [id number] 10cm, Coil Swiftpac Implanted:Qty : 2 on 04/15/2024 by Yann Jackson MD at [place] [facility] N/A: Head [employer] 12/24/2028 [id number] / / [id number] 30cm, Coil Swiftpac Implanted:Qty : 1 on 04/15/2024 by Yann Jackson MD at [place] [facility] N/A: Head [employer] 12/24/2028 [id number] / / [id number] 60cm, Coil Swiftpac Implanted:Qty : 1 on 04/15/2024 by Yann Jackson MD at [place] [facility] N/A: Head [employer] 11/02/2028 [id number] / / [id number] 6cm, Coil Swiftpac Implanted:Qty : 1 on 04/15/2024 by Yann Jackson MD at [place] [facility] N/A: Head [employer] 12/16/2028 [id number] / / [id number] Stent Vasc Hep 8mmx7.9v705bl - [id number] Implanted:Qty : 1 on 04/16/2024 by Samson Dennis MD at [place] [facility] Left: Iliac [employer] [id number] 12/29/2026 [id number] / [id number] / [id number] documented as of this encounter Advance Directives * Full Code (Latest Code Status on File) Date Activated Date Inactivated Comments 04/22/2024 2:28 AM 04/24/2024 6:42 PM This orde r reflects the patients [...] Discussed due to patient's condition Care Teams Fund Manager Relationship Specialty Start Date End Date Bharati Wang MD [address] [place] [address] [place] [phone] PCP - General Family Medicine 10/02/21 documented as of this encounter
--- OUTSIDE RECORDS SUMMARY | 2024-08-23 23:40 | External Medical Summary | Summary of Care ---
Author Name Unknown Organization [facility] Address [address] [place] [address] Phone [phone] Care Team Providers Care Continuous Process Machine Operator Name Role Phone Bharati Wang MD Primary Care Provide r Reason for Visit * Reason Onset Date Comments Advice 08/06/2024 Encounter Details Date Type Department Care Team (Late st Contact Info) Description 08/06/2024 Telephone Vascular Surg [facility] [address], [place] [phone] Armen Stone MD [address], [place] [phone] Advice Allergies Active Allergy Reactions Criticality Noted [...] Nasal Suspension (Flonase)Indica tions:Nasal congestion Administer 1 [place] into nostril in the morning. 16 g [...] fracture of humerus 08/07/2019 01/22/2024 Overview (08/10/2019): [place] [facility] Bilateral sciatica 06/01/2019 4 Spasm of [...] Does the household have a [facility] source of income? 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 Not on file Not on file Not on file documented as of this encounter Miscellaneous Notes * Telephone Encounter - Abby El LPN - 08/07/2024 8:22 AM EDT Spoke with patient and next available in [facility] was on 08/26/24 for studies and scheduled for an officevisit on 09/02/24. Abby El LPN 08/07/2024 8:26 AM * Addendum Note - Amira Aj PA-C - 08/06/2024 4:19 PM EDTAddended by: MAIRA AJ on: 08/06/2024 04:19 PM Modules accepted: Orders * Telephone Encounter - Amira Aj PA-C - 08/06/2024 4:11 PM EDT Abby and Dr. Stone- We did see pt @ [facility] post op, on 06/19/24 Vascular Labs were at follows: 06/19/24: HANNAH: 05/2706/19/24: LLE art dup: L BRYANT 81, L EIA 76/108/97, L AUTOMOTIVE POWER ELECTRONICS ENGINEER 125, L DFA 156, L SFA 151/[address] Dennis @ [facility] on 09/18/24, w/ vascular labs Since patient lives in [place], it makes perfect sense to see her @ [facility] I have placed new vascular lab orders Amira * Telephone Encounter - Abby El LPN - 08/06/2024 10:40 AM EDT Fredy, If you please placed that order for me I will get her scheduled. Abby El LPN 08/06/2024 10:40 AM * Telephone Encounter - Armen Stone MD - 08/06/2024 10:31 AM EDT Vascular Surgery Attending Took a call from [facility] asking for advice on anticoagulation for this patient admitted for a GI bleed. Underwent emergent left LE thrombectomy and iliac stent placement in Mar 2024 byDr. Dennis following a neurosurg procedure. Multiple repeat admissions for GI bleeding since the procedure, with apparently negative endoscopy. I advised stopping Eliquis and continuing plavix. We will see patient in our [facility] clinic next week for short term follow up and see if we can giveany more definitive advice. Patient lives in [place] so [facility] is best option for her. Team - please arrange for next week, with left LE arterial duplex and HANNAH Armen Stone MD Section of Vascular and Endovascular Surgery [facility] [place] [address] [phone] documented in this encounter Plan of Treatment Upcoming Encounters Date Type Department Care Team (Late st Contact Info) Description 08/07/2024 12:00 PM EDT Hem/Onc Treatment Hematology/Oncology Treatment, [address] [place] [phone] Claudia, Chair 4 Hem Onc [facility] [address] [place] [address] [place] [address] 08/11/2024 9:00 AM EDT Office Visit [address] [place] [phone] Bharati Wang MD [address] [place] [address] [place] [address] 08/12/2024 12:00 PM EDT Hem/Onc Treatment Hematology/Oncology Treatment, [address] [phone] Claudia, Chair 6 Hem Onc Scenery [address] [facility] [place] [address] 08/25/2024 10:00 AM EDT Office Visit [address] [address] Bharati Wang MD [address] [place] [address] [place] [address] 08/26/2024 1:00 PM EDT Imaging Vascular Lab, [facility] [address] [place] [phone] 08/26/2024 2:00 PM EDT Imaging Vascular Lab, [facility] [place] [address] [place] [phone] 09/02/2024 2:30 PM EDT Office Visit Vascular Surgery, [facility] [address] [facility] [place] [phone] Fletcher Alford MD [address] [place] [address] 09/10/2024 11:30 AM EDT Office Visit Neurosurgery, [place] [address] [place] [address] Yann Jackson MD [address] [place] [address] 09/18/2024 12:00 PM EDT Appointment Vascular Lab [facility] [address] [place] [address] 09/18/2024 12:30 PM EDT Appointment Vascular Lab [facility] [address] [place] [address] 09/18/2024 1:20 PM EDT Office Visit Vascular Surg [facility] [address] [place] [address] Samson Dennis MD [address] [place] [address] 09/24/2024 11:30 AM EDT Office Visit Gastroenterology, [facility] [address] [place] [address] Ester Wilson CRNP [address] [place] [address] Scheduled Orders Name Type Priority Associated Diagnoses Orde r Schedule VASC ANKLE BRACHIAL INDICES WITHOUT PPG (PAD) Medical Imaging Routine PVD (peripheral vascular disease) (HCC) Ordered: 08/06/2024 [facility] [employer] LE Medical Imaging Routine PVD (peripheral vascular disease) (HCC) Ordered: 08/06/2024 Scheduled Procedures Name Priority Associated Diagnoses Date/Ti me ESOPHAGOGASTRODUODENOSCOPY ( EGD), FLEXIBLE, TRANSORAL, DIAGNOSTIC Recall Contreras esophagus Health Maintenance Due Date Last Done Comments Alpha-1 Antitrypsin 1953 Adult Wellness Visit 2002 DXA Scan 04/06/2018 04/06/2016, 09/2012, 02/08/2011, Additional history exists DISCUSS TOBACCO CESSATION (REFER TO SMARTSET #5114) 08/01/2018 08/01/2017 (Discussed) DTap/Tdap Vaccines (2 - [...] D LEVEL ONCE IN A LIFETIME-USE SMARTSET# 37032 Completed 02/12/2018, 04/25/2015, 09/24/2014, Additional history exists [...] this encounter Medical Devices Implanted Type Area Asphalt Distributor Tender Device Identifier Shelf Expiration Date Model / Serial / Lot Coil Target 3d [id number] - [id number] Implanted:Qty : 1 on 04/15/2024 by Yann Jackson MD at OR [facility] N/A: Head ANNAMARIA : NEUROVASCULAR [id number] 12/16/2024 [id number] 60 / / [id number] 6cm, Coil Swiftpac Implanted:Qty : 1 on 04/15/2024 by Yann Jackson MD at OR [facility] N/A: Head [employer] 12/16/2028 [id number] / / [id number] 45cm, Coil Swiftpac Implanted:Qty : 1 on 04/15/2024 by Yann Jackson MD at OR [facility] N/A: Head [employer] 12/16/2028 [id number] / / [id number] 60cm, Coil Swiftpac Implanted:Qty : 1 on 04/15/2024 by Yann Jackson MD at OR [facility] N/A: Head [employer] 11/02/2028 [id number] / / [id number] Coil Target 3d [id number] - [id number] Implanted:Qty : 1 on 04/15/2024 by Yann Jackson MD at OR [facility] N/A: Head ANNAMARIA : NEUROVASCULAR [id number] 12/24/2024 [id number] 60 / / [id number] Coil Target 360 Soft [id number] - [id number] Implanted:Qty : 1 on 04/15/2024 by Yann Jackson MD at OR [facility] N/A: Head ANNAMARIA : NEUROVASCULAR [id number] 06/23/2025 [id number] / / [id number] Coil Target 360 Ultra 0gey92am - [id number] Implanted:Qty : 1 on 04/15/2024 by Yann Jackson MD at OR [facility] N/A: Head ANNAMARIA : NEUROVASCULAR [id number] 05/04/2026 [id number] 00 / / [id number] Coil Target 360 Ultra 5ssp8tk - [id number] Implanted:Qty : 1 on 04/15/2024 by Yann Jackson MD at OR [facility] N/A: Head ANNAMARIA : NEUROVASCULAR [id number] 02/03/2025 [id number] 80 / / [id number] 10cm, Coil Swiftpac Implanted:Qty : 2 on 04/15/2024 by Yann Jackson MD at OR [facility] N/A: Head [employer] 12/24/2028 [id number] / / [id number] 30cm, Coil Swiftpac Implanted:Qty : 1 on 04/15/2024 by Yann Jackson MD at OR [facility] N/A: Head [employer] 12/24/2028 [id number] / / [id number] 60cm, Coil Swiftpac Implanted:Qty : 1 on 04/15/2024 by Yann Jackson MD at OR [facility] N/A: Head [employer] 11/02/2028 [id number] / / [id number] 6cm, Coil [employer] Implanted:Qty : 1 on 04/15/2024 by Yann Jackson MD at OR [facility] N/A: Head [employer] 12/16/2028 [id number] / / [id number] Stent Vasc Hep 8mmx7.9l135yl - [id number] Implanted:Qty : 1 on 04/16/2024 by Samson Dennis MD at [facility] Left: Iliac [employer] [id number] 12/29/2026 [id number] / [id number] / [id number] documented as of this encounter Visit Diagnoses [...] Discussed due to patient's condition Care Teams Continuous Process Machine Operator Relationship Specialty Start Date End Date Bharati Wang MD [address] [place] [address] [place] [phone] PCP - General Family Medicine 10/02/21 documented as of this encounter
--- OUTSIDE RECORDS SUMMARY | 2024-08-23 23:40 | External Medical Summary | Summary of Care ---
Author Name Unknown Organization [facility] Address [address] [place] [address] Phone [phone] Care Team Providers Care Backend Python Developer Name Role Phone Bharati Wang MD Primary Care Provide r Reason for Visit * Reason Onset Date Comments Advice 08/06/2024 Encounter Details Date Type Department Care Team (Late st Contact Info) Description 08/06/2024 Telephone Vascular Surg [facility] [address], [place] [phone] Armen Stone MD [address] [place], [place] [phone] Advice Allergies Active Allergy Reactions Criticality Noted [...] Nasal Suspension (Flonase)Indica tions:Nasal congestion Administer 1 [place] into nostril in the morning. 16 g [...] fracture of humerus 08/07/2019 01/22/2024 Overview (08/10/2019): [facility] Bilateral sciatica 06/01/2019 4 Spasm of [...] Does the household have a [facility] source [facility] income? 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 Stone- We did see pt @ [facility] post op, on 06/19/24 Vascular Labs were at follows: 06/19/24: HANNAH: 05/2706/19/24: LLE art dup: L BRYANT 81, L EIA 76/108/97, L ACTING MANAGER 125, L DFA 156, L SFA 151/[address] Dennis @ [facility] on 09/18/24, w/ vascular labs Since patient lives in [place], it makes perfect sense to see her @ [facility] I have placed new vascular lab orders Amira * Telephone Encounter - Abby El LPN - 08/06/2024 10:40 AM EDT Fredy, If you please placed that order for me I will get her scheduled. Abby El LPN 08/06/2024 10:40 AM * Telephone Encounter - Armen Stone MD - 08/06/2024 10:31 AM EDT Vascular [facility] for this patient admitted for a GI bleed. Underwent emergent left LE thrombectomy and iliac stent placement in Mar 2024 [address]Dr. Dennis following a neurosurg procedure. Multiple repeat admissions for GI bleeding since the procedure, with apparently negative endoscopy. I advised stopping Eliquis and continuing plavix. We will see patient in our [facility] clinic next week for short term follow up and see if we can giveany more definitive advice. Patient lives in [place] so [facility] is best option for her. Team - please arrange for next week, with left LE arterial duplex and HANNAH Armen Stone MD Section of Vascular and Endovascular Surgery [place], [place] [phone] documented in this encounter Plan of Treatment Upcoming Encounters Date Type Department Care Team (Late st Contact Info) Description 08/07/2024 12:00 PM EDT Hem/Onc Treatment Hematology/Oncology Treatment, [address] [phone] Claudia, Chair 4 Hem Onc Scenery [address] [place] [address] [place] [address] 08/11/2024 9:00 AM EDT Office Visit Family Medicine [address] [phone] Bharati Wang MD [address] [place] [address] [place] [address] 08/12/2024 12:00 PM EDT Hem/Onc Treatment Hematology/Oncology Treatment, [address] [phone] Claudia, Chair 6 Hem [address] [place] [address] 08/25/2024 10:00 AM EDT Office Visit Family [address] [phone] Bharati Wang MD [address] [place] [address] [place] [address] 09/10/2024 11:30 AM EDT Office Visit Neurosurgery, [place] [address] [place] [address] aYnn Jackson MD [address] [place] [phone] 09/18/2024 12:00 PM EDT Appointment Vascular Lab [facility], [place] [address] [place] [address] 09/18/2024 12:30 PM EDT Appointment Vascular Lab [facility] [address] [place] [address] 09/18/2024 1:20 PM EDT Office Visit Vascular Surg [facility], [place] [address] [place] [address] Samson Dennis MD [address] [place] [address] 09/24/2024 11:30 AM EDT Office Visit Gastroenterology, [facility] [address] [facility] [place] [address] Ester Wilson CRNP [address] [place] [address] Scheduled Orders Name Type Priority Associated Diagnoses Orde r Schedule VASC ANKLE BRACHIAL INDICES WITHOUT PPG (PAD) Medical Imaging Routine PVD (peripheral vascular disease) (HCC) Ordered: 08/06/2024 VASC [place] [employer] LE Medical Imaging Routine [...] D LEVEL ONCE IN A LIFETIME-USE SMARTSET# 15514 Completed 02/12/2018, 04/25/2015, 09/24/2014, Additional history exists [...] this encounter Medical Devices Implanted Type Area Test Carrier Device Identifier Shelf Expiration Date Model / Serial / Lot Coil Target 3d 5zva3co - [id number] Implanted:Qty : 1 on 04/15/2024 by Yann Jackson MD at OR [facility] N/A: Head ANNAMARIA : NEUROVASCULAR [id number] 12/16/2024 [id number] / / [id number] 6cm, Coil [employer]pac Implanted:Qty : 1 on 04/15/2024 by Yann Jackson MD at OR [facility] N/A: Head [employer] 12/16/2028 [id number] / / [id number] 45cm, Coil Swiftpac Implanted:Qty : 1 on 04/15/2024 by Yann Jackson MD at OR [facility] N/A: Head [employer] 12/16/2028 [id number] / / [id number] 60cm, Coil Swiftpac Implanted:Qty : 1 on 04/15/2024 by Yann Jackson MD at OR [facility] N/A: Head [employer] 11/02/2028 [id number] / / [id number] Coil Target 3d 5nvg5hh - [id number] Implanted:Qty : 1 on 04/15/2024 by Yann Jackson MD at OR [facility] N/A: Head ANNAMARIA : NEUROVASCULAR [id number] 12/24/2024 [id number] 60 / / [id number] Coil Target 360 Soft 1sok24hu - [id number] Implanted:Qty : 1 on 04/15/2024 by Yann Jackson MD at OR [facility] N/A: Head ANNAMARIA : NEUROVASCULAR [id number] 06/23/2025 [id number] 00 / / [id number] Coil Target 360 Ultra 2csq35kd - [id number] Implanted:Qty : 1 on 04/15/2024 by Yann Jackson MD at OR [facility] N/A: Head ANNAMARIA : NEUROVASCULAR [id number] 05/04/2026 [id number] 00 / / [id number] Coil Target 360 Ultra 2vzg8uc - [id number] Implanted:Qty : 1 on 04/15/2024 by Yann Jackson MD at OR [facility] N/A: Head ANNAMARIA : NEUROVASCULAR [id number] 02/03/2025 [id number] 80 / / [id number] 10cm, Coil [employer] Implanted:Qty : 2 on 04/15/2024 by Yann Jackson MD at OR [facility] N/A: Head [employer] 12/24/2028 [id number] / / [id number] 30cm, Coil [employer]pac Implanted:Qty : 1 on 04/15/2024 by Yann Jackson MD at OR [facility] N/A: Head [employer] 12/24/2028 [id number] / / [id number] 60cm, Coil [employer]pac Implanted:Qty : 1 on 04/15/2024 by Yann Jackson MD at OR [facility] N/A: Head [employer] 11/02/2028 [id number] / / [id number] 6cm, Coil [employer] Implanted:Qty : 1 on 04/15/2024 by Yann Jackson MD at OR [facility] N/A: Head [employer] 12/16/2028 [id number] / / [id number] Stent Vasc Hep 8mmx7.6j859hq - [id number] Implanted:Qty : 1 on 04/16/2024 by Samson Dennis MD at OR [facility] Left: Iliac [employer] [id number] 12/29/2026 [id number] / [id number] / [id number] documented as of this encounter Visit Diagnoses [...] Discussed due to patient's condition Care Teams Backend Python Developer Relationship Specialty Start Date End Date Bharati Wang MD [address] [place] [address] [place] [address] PCP - General Family Medicine 10/02/21 documented as of this encounter
--- OUTSIDE RECORDS SUMMARY | 2024-08-23 23:40 | External Medical Summary | Summary of Care ---
Author Name Unknown Organization [facility] Address [address] [place] [address] Phone [phone] Care Team Providers Care Hydraulic Mechanic Name Role Phone Bharati Wang MD Primary Care Provide r Reason for Visit * Reason Onset Date Comments Advice 08/06/2024 Encounter Details Date Type Department Care Team (Late st Contact Info) Description 08/06/2024 Telephone Vascular Surg [facility] [address] [place], [place] [phone] Armen Stone MD [address] [place], [place] [phone] Advice Allergies Active Allergy Reactions Criticality Noted [...] Nasal Suspension (Flonase)Indica tions:Nasal congestion Administer 1 [place] into nostril in the morning. 16 g [...] fracture of humerus 08/07/2019 01/22/2024 Overview (08/10/2019): [place] [facility] Bilateral sciatica 06/01/2019 4 Spasm of [...] No 04/20/2024 Does the household have a [facility] source of income? 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 Not on file [...] Vascular [facility] for this patient admitted for a GI bleed. Underwent emergent left LE thrombectomy and iliac stent placement in Mar 2024 [address]Dr. Dennis following a neurosurg procedure. Multiple repeat admissions for GI bleeding since the procedure, with apparently negative endoscopy. I advised stopping Eliquis and continuing plavix. We will see patient in our [facility] clinic next week for short term follow up and see if we can giveany more definitive advice. Patient lives in [place] so [facility] is best option for her. Team - please arrange for next week, with left LE arterial duplex and HANNAH Armen Stone MD Section of Vascular [place] [address] [phone] documented in this encounter Plan of Treatment Upcoming Encounters Date Type Department Care Team (Late st Contact Info) Description 08/07/2024 12:00 PM EDT Hem/Onc Treatment Hematology/Oncology Treatment, [address] [phone] Claudia, Chair [address] [place] [address] 08/11/2024 9:00 AM EDT Office Visit Family Medicine [address] [place] [phone] Bharati Wang MD [address] [place] [address] [place] [address] 08/12/2024 12:00 PM EDT Hem/Onc Treatment Hematology/Oncology Treatment, [address] [phone] Claudia, Chair 6 Hem Onc Scenery [address] [place] [address] 08/25/2024 10:00 AM EDT Office Visit [address] [phone] Bharati Wang MD [address] [place] [address] [place] [address] 09/10/2024 11:30 AM EDT Office Visit Neurosurgery, [place] [address] [place] [address] Yann Jackson MD [address] [place] [phone] 09/18/2024 12:00 PM EDT Appointment Vascular Lab [facility] [address] [place] [address] 09/18/2024 12:30 PM EDT Appointment Vascular Lab [facility] [address] [place] [address] 09/18/2024 1:20 PM EDT Office Visit Vascular Surg [facility] [address] [place] [address] Samson Dennis MD [address] [place] [address] 09/24/2024 11:30 AM EDT Office Visit Gastroenterology, [facility] [address] [place] [address] Ester Wilson CRNP [address] [place] [address] Scheduled Procedures Name Priority Associated Diagnoses Date/Ti me ESOPHAGOGASTRODUODENOSCOPY ( EGD), FLEXIBLE, TRANSORAL, DIAGNOSTIC Recall Contreras esophagus Health Maintenance Due Date Last Done Comments Alpha-1 Antitrypsin 1953 Adult Wellness Visit 2002 DXA Scan 04/06/2018 04/06/2016, 09/2012, 02/08/2011, Additional history exists DISCUSS TOBACCO CESSATION (REFER TO SMARTSET #7269) 08/01/2018 08/01/2017 (Discussed) DTap/Tdap Vaccines (2 - [...] D LEVEL ONCE IN A LIFETIME-USE SMARTSET# 96240 Completed 02/12/2018, 04/25/2015, 09/24/2014, Additional history exists [...] / Serial / Lot Coil Target 3d 6tro9ei - [id number] Implanted:Qty : 1 on 04/15/2024 by Yann Jackson MD at [place] [facility] N/A: Head ANNAMARIA : NEUROVASCULAR [id number] 12/16/2024 [id number] 60 / / [id number] 6cm, Coil [employer] Implanted:Qty : 1 on 04/15/2024 by Yann Jackson MD at OR [facility] N/A: Head [employer] 12/16/2028 [id number] / / [id number] 45cm, Coil [employer] Implanted:Qty : 1 on 04/15/2024 by Yann Jackson MD at [place] [facility] N/A: Head [employer] 12/16/2028 [id number] / / [id number] 60cm, Coil [employer]pac Implanted:Qty : 1 on 04/15/2024 by Yann Jackson MD at OR [facility] N/A: Head [employer] 11/02/2028 [id number] / / [id number] Coil Target 3d 5vpw3bx - [id number] Implanted:Qty : 1 on 04/15/2024 by Yann Jackson MD at OR [facility] N/A: Head ANNAMARIA : NEUROVASCULAR [id number] 12/24/2024 [id number] 60 / / [id number] Coil Target 360 Soft 8eat77ys - [id number] Implanted:Qty : 1 on 04/15/2024 by Yann Jackson MD at OR [facility] N/A: Head ANNAMARIA : NEUROVASCULAR [id number] 06/23/2025 [id number] 00 / / [id number] Coil Target 360 Ultra 5jqx18cd - [id number] Implanted:Qty : 1 on 04/15/2024 by Yann Jackson MD at OR [facility] N/A: Head ANNAMARIA : NEUROVASCULAR [id number] 05/04/2026 [id number] 00 / / [id number] Coil Target 360 Ultra 7sti5jq - [id number] Implanted:Qty : 1 on 04/15/2024 by Yann Jackson MD at OR [facility] N/A: Head ANNAMARIA : NEUROVASCULAR [id number] 02/03/2025 [id number] 80 / / [id number] 10cm, Coil [employer] Implanted:Qty : 2 on 04/15/2024 by Yann Jackson MD at [place] [facility] N/A: Head [employer] 12/24/2028 [id number] / / [id number] 30cm, Coil [employer] Implanted:Qty : 1 on 04/15/2024 by Yann Jackson MD at [place] [facility] N/A: Head [employer] 12/24/2028 [id number] / / [id number] 60cm, Coil [employer] Implanted:Qty : 1 on 04/15/2024 by Yann Jackson MD at OR [facility] N/A: Head [employer] 11/02/2028 [id number] / / [id number] 6cm, Coil [employer] Implanted:Qty : 1 on 04/15/2024 by Yann Jackson MD at OR [facility] N/A: Head [employer] 12/16/2028 [id number] / / [id number] Stent Vasc Hep 8mmx7.4w458sh - [id number] Implanted:Qty : 1 on 04/16/2024 by Samson Dennis MD at OR [facility] Left: Iliac [employer] [id number] 12/29/2026 [id number] / [id number] / [id number] documented as of this encounter Advance Directives [...] Discussed due to patient's condition Care Teams Hydraulic Mechanic Relationship Specialty Start Date End Date Bharati Wang MD [address] [place] [address] [place] [address] PCP - General Family Medicine 10/02/21 documented as of this encounter
[2024-08-24 00:51] LABS: Albumin Globulin Ratio 1.5 (0.9-2); Albumin Level 4.2 gm/dl (3.4-5.0); BUN Creatinine Ratio 29.9 (10-20); Bilirubin,Total 0.6 mg/dl (0.2-1.0); Creatinine Clr Calc Pharmacy 48.7 ml/min; Globulin 2.8 gm/dl (2.5-4.0); Potassium 4.1 mmol/L (3.5-5.1)
[2024-08-24 00:56] LABS: Basophils # (auto) 0.03 K/uL (0.00-0.20); Basophils % (auto) 0.5 %; Eosinophils # (auto) 0.13 K/uL (0.00-0.50); Hematocrit (blood only) 34.7 % (37.0-47.0); Hemoglobin 10.8 g/dl (12.0-16.0); Immature Granulocytes # (auto) 0.02 K/uL (0.01-0.20); Immature Granulocytes % (auto) 0.3 %; Lymphocytes # (auto) 1.35 K/uL (1.20-3.40); Lymphocytes % (auto) 20.7 %; Mean Corpuscular Hgb Conc 31.1 g/dL (32.0-36.0); Mean Corpuscular Volume 89.9 fL (80.0-100.0); Mean Platelet Volume 9.9 fL (9.4-12.4); Monocytes % (auto) 7.7 %; Neutrophils # (auto) 4.49 K/uL (1.40-6.50); Neutrophils % (auto) 68.8 %; Ovalocytes 1+; Platelet Count 186 K/uL (130-400); Platelet Estimate Normal (Normal); Polychromasia 1+; RDW Coefficient of Variation 19.5 % (11.5-14.5); RDW Standard Deviation 64.5 fL (36.4-46.3); Red Blood Count 3.86 M/uL (4.20-5.40); White Blood Count 6.52 K/ul (4.8-10.8)
[2024-08-24 01:15] LABS: Partial Thromboplastin Ratio 0.9; Partial Thromboplastin Time 23 Seconds (21-31); Prothrombin Time 10.6 Seconds (9.0-12.0)
--- NOTE | 2024-08-24 01:30 | Emergency Department Note ---
Impression & Plan Acute lower GI bleeding admit to the [facility] ED Provider Note NAME: HOOD MALDONADO AGE: 88 SEX: Female INFORMANT: Patient ED PROVIDER(S): Brianne Buckley DO CHIEF COMPLAINT: rectal bleeding PLAN: Disposition: admit to the [facility] MEDICAL DECISION MAKING: this is an 88-year-old female patient who presents to the emergency department with bright red blood from her rectum. The patient has had ongoing episodes of GI bleeding for which she has been hospitalized. The last 1 occurred approximately 2 weeks ago. Since that time though, she has been doing well according to the . She explains that the stools have been brown in color with normal bowel movements. This evening, she began to have some crampy abdominal pain and passed a large amount of bright red blood from her rectum. She states that the bowel movement was significantly malodorous. since that time, the patient has become incontinent of more stool and roberto melena. Laboratory studies revealed no leukocytosis. Coagulation studies were normal. Hemoglobin was at 10.4. Glucose was 106 and renal function was normal. the patient remains hemodynamically stable. I discussed the case with the [facility] and they will evaluate for further inpatient care. Care/management discussed with: patient scheduling manager and [facility] Triage Nursing notes: reviewed and agree With them. Vital Signs: reviewed and unremarkable Additional History obtained from: the patient's who is at the bedside Chronic Medical/Social Conditions affecting care: the patient does take Plavix Prior/ Outside/ External records reviewed: previous inpatient records were reviewed from episodes of GI bleeding Differential Diagnosis: anemia, rectal bleeding, lower GI bleeding, upper GI bleeding Diagnostics, independently interpreted by me: ECG: normal sinus rhythm at a rate of [address] segment elevation or signs of ischemia. There is no ectopy. QTc was 454 ms. Cardiac Monitoring: Normal sinus rhythm at a rate of 74 HPI: 88 year old Female arrives for evaluation of rectal bleeding. patient presents with bright red blood from her rectum. The patient has had ongoing episodes of GI bleeding for which she has been hospitalized. The last 1 occurred approximately 2 weeks ago. Since that time though, she has been doing well according to the . She explains that the stools have been brown in color with normal bowel movements. This evening, she began to have some crampy abdominal pain and passed a large amount of bright red blood from her rectum. She states that the bowel movement was significantly malodorous. PAST MEDICAL HISTORY: See Below, PAST SURGICAL HISTORY: See Below, SOCIAL HISTORY: See Below, HOME MEDICATIONS: see list ALLERGIES: see long list VITALS: See Below PHYSICAL EXAMINATION: HEENT: Head - normocephalic and atraumatic. Pupils are equal, round, and reactive to light. Extraocular eye muscles are intact, and sclera are anicteric. Nose - moist nasal mucosa without discharge. Mouth - moist buccal mucosa. Oropharynx is nonerythematous and there is no tonsillar exudate or edema noted. Neck: Supple; no cervical lymphadenopathy appreciated Heart: Regular rate and rhythm. There is a normal S1 and S2 with no murmurs, clicks, or gallops appreciated. Lungs: Clear to auscultation bilaterally with no wheezes, rales, or rhonchi. Abdomen: Soft, completely nontender, nondistended, with good bowel sounds. There are no palpable pulsatile masses or hepatosplenomegaly. There is no guarding, rigidity, or rebound noted. Extremities: No evidence of cyanosis, clubbing, or edema. There are easily palpable peripheral pulses. Rectal exam: There is melena within the patient's brief Skin: warm and dry with good turgor and no rashes. emergency department course: The patient was evaluated in room C-1. A complete history and physical was performed. I reviewed multiple previous medical records. An order was placed for continuous cardiac monitoring. The patient was in a normal sinus rhythm at a rate of 74. Twelve-lead EKG was obtained as described above. The patient was typed and screened. While here in the emergency department, the patient was incontinent of melena into her brief. She remained hemodynamically stable. [facility] care. Past Med/Surg History Problem List (Updated 08/24/24 @ 04:17 by Brianne Buckley DO) Acute lower GI bleeding (Acute) High serum chloride (Acute) Anemia (Acute) Abdominal pain (Acute) Acute GI bleeding (Acute) Acute renal failure superimposed on stage 3 chronic kidney disease Diverticular hemorrhage Anemia Melena PAD (peripheral artery disease) GI bleed (Acute) 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 Tobacco use disorder Hyperlipidemia Hypertension controlled, stable per pt Acid reflux controlled, stable per pt CKD (chronic kidney disease), stage III COPD (chronic obstructive pulmonary disease) stable per pt, last rescue inhaler use 1 week ago Medical History Elevated hemidiaphragm L History of GI bleed 2020- DIRECTLY AFTER SHOULDER SURGERY History of COVID-19 10/2021 cough- no hospitalization, no current issues Post-traumatic osteoarthritis, left shoulder Chronic constipation Hx of cancer of uterus s/p hysterectomy with USO Carotid stenosis 50-69% right sided stenosis per 09/2018 doppler report but personal review of imaging by vascular felt that carotid artery stenosis <50% b/l - advised by vascular to f/u PRN; denies dizziness, lightheadedness, visual changes, headaches or syncope History of left shoulder fracture 07/2019 - medically managed until this upcoming surgery Surgical History History of esophagogastroduodenoscopy (EGD) Fusion of spine Left SI joint fusion: 06/14/2020: Grade 2 view, MAC 3.0, ETT 7.0 at [facility] Hx of tooth extraction Hx of surgical procedure Right SI joint fusion History of cataract surgery R/L History of colonoscopy History of surgery "Windpipe growth" removal History of tonsillectomy H/O hemorrhoidectomy History of appendectomy History of cholecystectomy H/O: hysterectomy + USO Hx of fusion of cervical spine History of lumbar fusion Family History Other Heart disease Social History Smoking Status: Current every day smoker Tobacco Type: Cigarettes Cigarettes Per Day: 2; Second Hand Exposure: No; Do You Dip or Chew Tobacco: No; Hx Alcohol Use: No Hx Substance Use: No Preferred Language: Slovak Communication Ability: Effective 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 Operator Required: No Beliefs That Will Affect Care: None marital status: Current Living Situation: Spouse Feels Safe at Home: Yes Assistive Devices: None Allergies Allergies Allergy/AdvReac Type Severity Reaction Status Date / Time ampicillin Allergy Severe Dyspnea, Verified 08/24/24 01:31 hives azithromycin Allergy Severe Hives, Verified 08/24/24 01:31 angioedema Carbapenems Allergy Severe Dyspnea Verified 08/24/24 01:31 cilastatin Allergy Severe Dyspnea Verified 08/24/24 01:31 imipenem Allergy Severe Dyspnea Verified 08/24/24 01:31 Macrolide Antibiotics Allergy Severe Hives, Verified 08/24/24 01:31 angioedema meropenem Allergy Severe Dyspnea Verified 08/24/24 01:31 penicillamine Allergy Severe Dyspnea Verified 08/24/24 01:31 ranitidine Allergy Severe Dyspnea Verified 08/24/24 01:31 Cephalosporins Allergy Intermediate Hives Verified 08/24/24 01:31 Penicillins Allergy Intermediate Hives Verified 08/24/24 01:31 adhesive Allergy Mild Rash Verified 08/24/24 01:31 Home Meds Home Medications Medication Instructions Recorded Confirmed cyanocobalamin (vitamin B-12) 1,000 mcg PO QDL 12/14/18 08/24/24 1,000 mcg tablet (Vitamin B-12) fluticasone propionate 50 2 spray intranasal QAM PRN Nasal 12/14/18 08/24/24 mcg/actuation nasal Congestion spray,suspension rosuvastatin 20 mg tablet (Crestor) 20 mg PO QAM 11/12/19 08/24/24 cholecalciferol (vitamin D3) 25 25 mcg PO QDL 05/05/20 08/24/24 mcg (1,000 unit) chewable tablet (Vitamin D3) acetaminophen 500 mg tablet 500 mg PO QID PRN Pain 02/27/22 08/24/24 (Tylenol Extra Strength) docusate sodium 50 mg capsule 50 mg PO DAILY PRN Constipation 03/28/22 08/24/24 (Stool Softener) amlodipine 5 mg tablet 5 mg PO QAM 04/21/24 08/24/24 clopidogrel 75 mg tablet 75 mg PO QAM 04/21/24 08/24/24 lisinopril 20 mg tablet 20 mg PO QAM 07/03/24 08/24/24 Previous Rx's Medication Instructions Recorded pantoprazole 40 mg tablet,delayed 40 mg PO BID #60 tabs 07/05/24 release Results & Data (ED) Vital Signs Vital Signs - 24 hr 08/23/24 23:35 08/23/24 23:56 08/24/24 00:19 Temperature 36.4 C L Temperature Source Temporal Artery Scan Pulse Rate 77 74 Pulse Rate [Apical] Pulse Rhythm Regular Pulse Rhythm [Apical] Pulse Strength Normal Pulse Strength [Apical] Respiratory Rate 18 Respiratory Effort / Characteristics Non-Labored Spontaneous Respiratory Depth Normal Respiratory Pattern Regular Blood Pressure 148/72 H Blood Pressure [Right Arm] Blood Pressure Mean 97 Blood Pressure Mean [Right Arm] Blood Pressure Position Sitting Blood Pressure Position [Right Arm] Pulse Oximetry 96 95 Oxygen Delivery Method Room Air Room Air Sepsis Recent Fever Within 48 Hours No Sepsis New/Unexplained Change in Mental Status N/A Sepsis Action Taken by Nursing No Action Required 08/24/24 00:20 08/24/24 01:48 08/24/24 03:00 Temperature Temperature Source Pulse Rate Pulse Rate [Apical] 66 71 Pulse Rhythm Pulse Rhythm [Apical] Regular Regular Pulse Strength Pulse Strength [Apical] Normal Normal Respiratory Rate 18 18 Respiratory Effort / Characteristics Non-Labored Non-Labored Respiratory Depth Normal Normal Respiratory Pattern Regular Regular Blood Pressure Blood Pressure [Right Arm] 112/64 121/57 L Blood Pressure Mean Blood Pressure Mean [Right Arm] 80 78 Blood Pressure Position Blood Pressure Position [Right Arm] Lying Sitting Pulse Oximetry 95 94 98 Oxygen Delivery Method Room Air Room Air Room Air Sepsis Recent Fever Within 48 Hours Sepsis New/Unexplained Change in Mental Status Sepsis Action Taken by Nursing 08/24/24 03:41 Temperature Temperature Source Pulse Rate 73 Pulse Rate [Apical] Pulse Rhythm Pulse Rhythm [Apical] Pulse Strength Pulse Strength [Apical] Respiratory Rate Respiratory Effort / Characteristics Respiratory Depth Respiratory Pattern Blood Pressure Blood Pressure [Right Arm] Blood Pressure Mean Blood Pressure Mean [Right Arm] Blood Pressure Position Blood Pressure Position [Right Arm] Pulse Oximetry Oxygen Delivery Method Sepsis Recent Fever Within 48 Hours Sepsis New/Unexplained Change in Mental Status Sepsis Action Taken by Nursing Laboratory Data 08/24/24 00:03 08/24/24 00:03 Lab Results 08/24/24 08/24/24 Range/Units 00:03 00:06 WBC 6.52 (4.8-10.8) K/ul RBC 3.86 L (4.20-5.40) M/uL Hgb 10.8 L (12.0-16.0) g/dl Hct 34.7 L (37.0-47.0) % MCV 89.9 (80.0-100.0) fL MCH 28.0 (25.0-34.0) pg MCHC 31.1 L (32.0-36.0) g/dL RDW Std Deviation 64.5 H (36.4-46.3) fL RDW Coeff of Devi 19.5 H (11.5-14.5) % Plt Count 186 (130-400) K/uL MPV 9.9 (9.4-12.4) fL Immature Gran % (Auto) 0.3 % Neut % (Auto) 68.8 % Lymph % (Auto) 20.7 % Republic % (Auto) 7.7 % Eos % (Auto) 2.0 % Baso % (Auto) 0.5 % Neut # (Auto) 4.49 (1.40-6.50) K/uL Lymph # (Auto) 1.35 (1.20-3.40) K/uL Republic # (Auto) 0.50 (0.11-0.59) K/uL Eos # (Auto) 0.13 (0.00-0.50) K/uL Baso # (Auto) 0.03 (0.00-0.20) K/uL Immature Gran # (Auto) 0.02 (0.01-0.20) K/uL Platelet Estimate Normal (Normal) Polychromasia 1+ Ovalocytes 1+ PT 10.6 (9.0-12.0) Seconds INR 1.0 (0.9-1.1) APTT 23 (21-31) Seconds PTT Ratio 0.9 Sodium 139 (136-145) mmol/L Potassium 4.1 (3.5-5.1) mmol/L Chloride 106 (98-107) mmol/L Carbon Dioxide 26 (21-32) mmol/L Anion Gap 7 (3-11) BUN 23 (6-23) mg/dl Creatinine 0.77 (0.6-1.2) mg/dl Est Cr Clr Drug Dosing 48.7 ml/min eGFR 74.61 BUN/Creatinine Ratio 29.9 H (10-20) Glucose 106 H (70-99(Fasting)) mg/dl Calcium 9.0 (8.6-10.3) mg/dl Total Bilirubin 0.6 (0.2-1.0) mg/dl AST 16 (13-39) U/L ALT 10 (7-52) U/L Alkaline Phosphatase 73 (34-104) U/L Total Protein 7.0 (6.0-8.3) gm/dl Albumin 4.2 (3.4-5.0) gm/dl Globulin 2.8 (2.5-4.0) gm/dl Albumin/Globulin Ratio 1.5 (0.9-2) Blood Type O Positive Antibody Screen NEGATIVE Discharge Plan Visit Data Chief Complaint: Bleeding Stated Complaint: RECTAL BLEEDING ED Provider: Brianne Buckley Discharge Problem: Acute lower GI bleeding Forms Stand Alone Forms: [facility] Prescriptions Prescriptions: No Action cyanocobalamin (vitamin B-12) [Vitamin B-12] 1,000 mcg Tablet 1,000 mcg PO QDL fluticasone propionate 50 mcg/actuation [place],Suspension 2 spray INTRANASAL QAM PRN (Reason: Nasal Congestion) rosuvastatin [Crestor] 20 mg Tablet 20 mg PO QAM cholecalciferol (vitamin D3) [Vitamin D3] 25 mcg (1,000 unit) Tablet,Chewable 25 mcg PO QDL acetaminophen [Tylenol Extra Strength] 500 mg Tablet 500 mg PO QID PRN (Reason: Pain) Stool Softener 50 mg Capsule 50 mg PO DAILY PRN (Reason: Constipation) clopidogrel 75 mg tablet 75 mg PO QAM amlodipine 5 mg tablet 5 mg PO QAM lisinopril 20 mg tablet 20 mg PO QAM pantoprazole 40 mg Tablet,Delayed Release (Dr/Ec) 40 mg PO BID Qty: 60 0RF Referrals Referrals: Bharati Wang MD [Primary Care Provider] -
[2024-08-24] MEDS ORDERED: PANTOPRAZOLE BOLUS/DRIP IV STA (06:05)
[2024-08-24] MEDS: OPTIRAY 320 100ml IV ONE (06:23)
--- NOTE | 2024-08-24 06:27 | History & Physical Report ---
Date of Service August 24, 2024 Assessment & Plan (1) Acute GI bleeding: Plan: 88-year-old female with past medical history significant for dyslipidemia, hyperbilirubinemia, COPD, peripheral artery disease, history of thromboembolus, hypertension, bilateral carotid stenosis, carotid cavernous fistula, history of acute lower limb ischemia, hypertension, irritable bowel syndrome, vitamin D deficiency, B12 deficiency, Contreras's esophagus without dysplasia, GERD, acute blood loss anemia, iron deficiency anemia, persistent insomnia, status post insertion of iliac artery stent presents with GI bleed. Patient states yesterday she had a lot of bloody bowel movements and also black stools. No abdominal pain. No nausea. No chest pain. No shortness of breath. No cough. No headache no runny nose or sore throat. Resting comfortably and hemodynamically stable. In June 2024 patient was admitted for acute GI bleed and acute blood loss anemia. CT abdomen did not show any acute changes. At the time she was on Eliquis and Plavix which were held. She had EGD on 07/09/2024 did not show any active bleeding. Colonoscopy also done on same day showed 3 small colonic polyps and diverticulosis. There was some fresh blood seen in cecum with blood coming through IC valve and internal ileum without any source seen. Patient had GI bleed nuclear scan same date which did not show any evidence of bleed. Vascular surgery [facility] was notified and recommended stopping Eliquis and to continue Plavix and to keep vascular appointment on 09/18 2024. Patient did okay and was discharged on 07/11/2024. Patient was again admitted on 07/30/[address] angio abdomen pelvis was done which showed no active bleeding. Hemoglobin was 7.4 and received 1 unit PRBC. Patient had small bowel enteroscopy which showed small hiatal hernia, LA grade B esophagitis with no bleeding. Discharged on 08/06/2024 to follow as outpatient and recommendation for video capsule endoscopy. Patient says she swallowed video capsule endoscopy on 08/17/2024 and she did not passed it yet. Acute GI bleeding Melena and also blood per rectum Hemodynamics are okay. Hemoglobin 10.8. Hemoglobin was 9 on discharge on 08/06/2024 Blood consent obtained N.p.o. IV fluids Protonix drip H&H every [address] scan Recently had EGD and colonoscopy as mentioned in H&P. Patient says she swallowed video capsule endoscopy on 08/17/2024 Consulted GI Close monitor Severe peripheral artery disease Status post left iliac thromboembolectomy of the external iliac stent grafting on 03/2024 Currently on Plavix which will be held Follow-up with vascular surgery as scheduled Hypertension Will hold amlodipine and lisinopril as blood pressure is soft Hyperlipidemia On statin GERD Continue PPI drip DVT prophylaxis SCDs Disposition Telemetry Full code History of Present Illness Chief Complaint: GI bleeding Primary Care Provider: Bharati Wang MD 88-year-old female with past medical history significant for dyslipidemia, hyperbilirubinemia, COPD, peripheral artery disease, history of thromboembolus, hypertension, bilateral carotid stenosis, carotid cavernous fistula, history of acute lower limb ischemia, hypertension, irritable bowel syndrome, vitamin D deficiency, B12 deficiency, Contreras's esophagus without dysplasia, GERD, acute blood loss anemia, iron deficiency anemia, persistent insomnia, status post insertion of iliac artery stent presents with GI bleed. Patient states yeste rday she had a lot of bloody bowel movements and also black stools. No abdominal pain. No nausea. No chest pain. No shortness of breath. No cough. No headache no runny nose or sore throat. Resting comfortably and hemodynamically stable. In June 2024 patient was admitted for acute GI bleed and acute blood loss anemia. CT abdomen did not show any acute changes. At the time she was on E liquis and Plavix which were held. She had EGD on 07/09/2024 did not show any active bleeding. Colonoscopy also done on same day showed 3 small colonic polyps and diverticulosis. There was some fresh blood seen in cecum with blood coming through IC valve and internal ileum without any source seen. Patient had GI bleed nuclear scan same date which did not show any evidence of bleed. Vascular surgery [facility] was notified and recommended stopping Eliquis and to continue Plavix and to keep vascular appointment on 09/18 2024. Patient did okay and was discharged on 07/11/2024. Patient was again admitted on 07/30/[address] angio abdomen pelvis was done which showed no active bleeding. Hemoglobin was 7.4 and received 1 unit PRBC. Patient had small bowel enteroscopy which showed small hiatal hernia, LA grade B esophagitis with no bleeding. Discharged on 08/06/2024 to follow as outpatient and recommendation for video capsule endoscopy. Patient says she swallowed video capsule endoscopy on 08/17/2024 and she did not passed it yet. Past medical history. As mentioned above Past surgical history. Left femoral-popliteal thrombectomy. Bilateral carotid artery catheter placement. Cervical laminoplasty with decompression. Colonoscopy. EGD. EGD with biopsy. Iliac artery revascularization with stent and angioplasty. Lumbar disc spine fusion surgery. Removal of right ovary and oviducts. Bilateral cataracts. Cholecystectomy. Left reverse total shoulder arthroplasty. Sacroiliac joint injection. Shoulder arthroscopy. Total abdominal hysterectomy with removal of tubes. Bilateral vertebral artery catheter placement. Social history. . Smokes 1 pack a day for last 57 years. No alcohol use. No drug use. Family history. Father had CAD. Brother had hypertension and sudden cardiac arrhythmia. Allergies Allergy/AdvReac Type Severity Reaction Status Date / Time ampicillin Allergy Severe Dyspnea, Verified 08/24/24 01:31 hives azithromycin Allergy Severe Hives, Verified 08/24/24 01:31 angioedema Carbapenems Allergy Severe Dyspnea Verified 08/24/24 01:31 cilastatin Allergy Severe Dyspnea Verified 08/24/24 01:31 imipenem Allergy Severe Dyspnea Verified 08/24/24 01:31 Macrolide Antibiotics Allergy Severe Hives, Verified 08/24/24 01:31 angioedema meropenem Allergy Severe Dyspnea Verified 08/24/24 01:31 penicillamine Allergy Severe Dyspnea Verified 08/24/24 01:31 ranitidine Allergy Severe Dyspnea Verified 08/24/24 01:31 Cephalosporins Allergy Intermediate Hives Verified 08/24/24 01:31 Penicillins Allergy Intermediate Hives Verified 08/24/24 01:31 adhesive Allergy Mild Rash Verified 08/24/24 01:31 Home Medications Medication Instructions Recorded Confirmed Type cyanocobalamin (vitamin B-12) 1,000 mcg PO QDL 12/14/18 08/24/24 History 1,000 mcg tablet (Vitamin B-12) fluticasone propionate 50 2 spray intranasal QAM PRN Nasal 12/14/18 08/24/24 History mcg/actuation nasal Congestion spray,suspension rosuvastatin 20 mg tablet (Crestor) 20 mg PO QAM 11/12/19 08/24/24 History cholecalciferol (vitamin D3) 25 25 mcg PO QDL 05/05/20 08/24/24 History mcg (1,000 unit) chewable tablet (Vitamin D3) acetaminophen 500 mg tablet 500 mg PO QID PRN Pain 02/27/22 08/24/24 History (Tylenol Extra Strength) docusate sodium 50 mg capsule 50 mg PO DAILY PRN Constipation 03/28/22 08/24/24 History (Stool Softener) amlodipine 5 mg tablet 5 mg PO QAM 04/21/24 08/24/24 History clopidogrel 75 mg tablet 75 mg PO QAM 04/21/24 08/24/24 History lisinopril 20 mg tablet 20 mg PO QAM 07/03/24 08/24/24 History pantoprazole 40 mg tablet,delayed 40 mg PO BID #60 tabs 07/05/24 08/24/24 Rx release Past Med/Surg History Problem List (Updated 08/24/24 @ 04:17 by Brianne Buckley DO) Acute lower GI bleeding (Acute) High serum chloride (Acute) Anemia (Acute) Abdominal pain (Acute) Acute GI bleeding (Acute) Acute renal failure superimposed on stage 3 chronic kidney disease Diverticular hemorrhage Anemia Melena PAD (peripheral artery disease) GI bleed (Acute) 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 Tobacco use disorder Hyperlipidemia Hypertension controlled, stable per pt Acid reflux controlled, stable per pt CKD (chronic kidney disease), stage III COPD (chronic obstructive pulmonary disease) stable per pt, last rescue inhaler use 1 week ago Medical History Elevated hemidiaphragm L History of GI bleed 2020- DIRECTLY AFTER SHOULDER SURGERY History of COVID-19 10/2021 cough- no hospitalization, no current issues Post-traumatic osteoarthritis, left shoulder Chronic constipation Hx of cancer of uterus s/p hysterectomy with USO Carotid stenosis 50-69% right sided stenosis per 09/2018 doppler report but personal review of imaging by vascular felt that carotid artery stenosis <50% b/l - advised by vascular to f/u PRN; denies dizziness, lightheadedness, visual changes, headaches or syncope History of left shoulder fracture 07/2019 - medically managed until this upcoming surgery Surgical History History of esophagogastroduodenoscopy (EGD) Fusion of spine Left SI joint fusion: 06/14/2020: Grade 2 view, MAC 3.0, ETT 7.0 at [facility] Hx of tooth extraction Hx of surgical procedure Right SI joint fusion History of cataract surgery R/L History of colonoscopy History of surgery "Windpipe growth" removal History of tonsillectomy H/O hemorrhoidectomy History of appendectomy History of cholecystectomy H/O: hysterectomy + USO Hx of fusion of cervical spine History of lumbar fusion Family History Other Heart disease Social History Smoking Status: Current every day smoker Tobacco Type: Cigarettes Cigarettes Per Day: 2; Second Hand Exposure: No; Do You Dip or Chew Tobacco: No; Hx Alcohol Use: No Hx Substance Use: No Preferred Language: Kyrgyz Communication Ability: Effective Sterile Tech Required: No Beliefs That Will Affect Care: None marital status: Current Living Situation: Spouse Feels Safe at Home: Yes Assistive Devices: None Review of Systems Review of Systems: All systems reviewed & are unremarkable except as noted in HPI & below Physical Exam Physical Exam: General- Not in distress Head- atraumatic Eyes- PERRL. ENT- oropharynx clear Neck- supple, no JVD. Lungs- clear to auscultation no wheezing or crackles Heart- regular rhythm; no murmur, no gallop. Abdomen- normal bowel sounds, soft, nontender, no distension Extremities- no pretibial edema, no erythema seen Neuro- alert, oriented PERRL, no facial palsy; no dysarthria; moves extremities Results & Data Results & Data Vital Signs (Past 12 Hours) Vital Signs Temp Pulse Pulse Resp BP BP Pulse Ox 08/24/24 05:00 60 18 109/52 L 98 08/24/24 03:41 73 08/24/24 03:00 71 18 121/57 L 98 08/24/24 01:48 66 18 112/64 94 08/24/24 00:20 95 08/24/24 00:19 95 08/23/24 23:56 74 08/23/24 23:35 36.4 C L 77 18 148/72 H 96 O2 Del Method 08/24/24 05:00 Room Air 08/24/24 03:41 08/24/24 03:00 Room Air 08/24/24 01:48 Room Air 08/24/24 00:20 Room Air 08/24/24 00:19 Room Air 08/23/24 23:56 08/23/24 23:35 Room Air Diagnostic Findings Laboratory Results WBC 6.52 K/ul (4.8-10.8) 08/24/24 00:03 RBC 3.86 M/uL (4.20-5.40) L 08/24/24 00:03 Hgb 10.8 g/dl (12.0-16.0) L 08/24/24 00:03 Hct 34.7 % (37.0-47.0) L 08/24/24 00:03 MCV 89.9 fL (80.0-100.0) 08/24/24 00:03 MCH 28.0 pg (25.0-34.0) 08/24/24 00:03 MCHC 31.1 g/dL (32.0-36.0) L 08/24/24 00:03 RDW Std Deviation 64.5 fL (36.4-46.3) H 08/24/24 00:03 RDW Coeff of Devi 19.5 % (11.5-14.5) H 08/24/24 00:03 Plt Count 186 K/uL (130-400) 08/24/24 00:03 MPV 9.9 fL (9.4-12.4) 08/24/24 00:03 Immature Gran % (Auto) 0.3 % 08/24/24 00:03 Neut % (Auto) 68.8 % 08/24/24 00:03 Lymph % (Auto) 20.7 % 08/24/24 00:03 Monroe % (Auto) 7.7 % 08/24/24 00:03 Eos % (Auto) 2.0 % 08/24/24 00:03 Baso % (Auto) 0.5 % 08/24/24 00:03 Neut # (Auto) 4.49 K/uL (1.40-6.50) 08/24/24 00:03 Lymph # (Auto) 1.35 K/uL (1.20-3.40) 08/24/24 00:03 Monroe # (Auto) 0.50 K/uL (0.11-0.59) 08/24/24 00:03 Eos # (Auto) 0.13 K/uL (0.00-0.50) 08/24/24 00:03 Baso # (Auto) 0.03 K/uL (0.00-0.20) 08/24/24 00:03 Immature Gran # (Auto) 0.02 K/uL (0.01-0.20) 08/24/24 00:03 Platelet Estimate Normal (Normal) 08/24/24 00:03 Polychromasia 1+ 08/24/24 00:03 Ovalocytes 1+ 08/24/24 00:03 PT 10.6 Seconds (9.0-12.0) 08/24/24 00:03 INR 1.0 (0.9-1.1) 08/24/24 00:03 APTT 23 Seconds (21-31) 08/24/24 00:03 PTT Ratio 0.9 08/24/24 00:03 Sodium 139 mmol/L (136-145) 08/24/24 00:03 Potassium 4.1 mmol/L (3.5-5.1) 08/24/24 00:03 Chloride 106 mmol/L (98-107) 08/24/24 00:03 Carbon Dioxide 26 mmol/L (21-32) 08/24/24 00:03 Anion Gap 7 (3-11) 08/24/24 00:03 BUN 23 mg/dl (6-23) 08/24/24 00:03 Creatinine 0.77 mg/dl (0.6-1.2) 08/24/24 00:03 Est Cr Clr Drug Dosing 48.7 ml/min 08/24/24 00:03 eGFR 74.61 08/24/24 00:03 BUN/Creatinine Ratio 29.9 (10-20) H 08/24/24 00:03 Glucose 106 mg/dl (70-99(Fasting)) H 08/24/24 00:03 Calcium 9.0 mg/dl (8.6-10.3) 08/24/24 00:03 Total Bilirubin 0.6 mg/dl (0.2-1.0) 08/24/24 00:03 AST 16 U/L (13-39) 08/24/24 00:03 ALT 10 U/L (7-52) 08/24/24 00:03 Alkaline Phosphatase 73 U/L (34-104) 08/24/24 00:03 Total Protein 7.0 gm/dl (6.0-8.3) 08/24/24 00:03 Albumin 4.2 gm/dl (3.4-5.0) 08/24/24 00:03 Globulin 2.8 gm/dl (2.5-4.0) 08/24/24 00:03 Albumin/Globulin Ratio 1.5 (0.9-2) 08/24/24 00:03 Blood Type O Positive 08/24/24 00:06 Antibody Screen NEGATIVE 08/24/24 00:06 ECG Additional Comments: ECG. Normal sinus rhythm rate of 80. Left axis deviation. Nonspecific T wave abnormality in lateral leads. Code Status & VTE Plan VTE Prophylaxis Plan VTE Prophylaxis will be ordered: Yes
[2024-08-24] MEDS: PANTOprazole 80 MG in DEXTROSE 5% 100 ML IV ONE (06:29)
[2024-08-24] MEDS: SODIUM CHLORIDE 0.9% 1,000 ML IV SCH (06:29)
[2024-08-24] MEDS: PANTOprazole 40 MG in DEXTROSE 5% MINI-B 100 ML IV SCH (07:02)
--- NOTE | 2024-08-24 07:16 | CT Scan Report ---
EXAM: CT abd pelvis IV con only CLINICAL HISTORY: gi bleed. swallowed videocapsule few days back TECHNIQUE: Contiguous axial images were obtained from the level of the diaphragm to the pubic symphysis with intravenous contrast. Coronal and sagittal reconstructions were likewise performed and indicated to increase the sensitivity for detecting clinically relevant pathology. If IV contrast material had not been administered, the likelihood of detecting abnormalities relevant to the patient's condition would have been substantially decreased. CT scan was performed according to ALARA (as low as reasonable achievable). COMPARISON: 17:44:18 SILVER DESIGNER FINDINGS: The visualized lung bases are clear. The liver is normal in size and attenuation. A well defined hypodense lesion of size 2.3 cm is noted in left lobe of liver - appear simple cyst. There is no intra or extrahepatic biliary ductal dilatation. Hepatic vasculature is patent. The gallbladder is absent. The spleen, pancreas, and adrenal glands are unremarkable. The kidneys are normal in size and attenuation. There is no hydronephrosis or perinephric fat stranding. Few simple cortical cyst are noted in both kidneys Small calyceal calculi of size 5 mm and 3 mm involving upper pole calyx of left kidney with focal cortical scarring. The ureters are normal in caliber and no ureteral calculi are seen. The bladder is normal in contour. Pelvic viscera are unremarkable. No focal or diffuse bowel wall thickening or evidence of bowel obstruction is identified. The appendix is visualized in the right lower quadrant and appears within normal limits. Abdominal and pelvic vasculature is patent. No adenopathy or fluid collections are seen. No aggressive appearing osseous lesions are identified. Diffuse atherosclerotic calcification is noted involving aorta iliac arteries. Small fat containing umbilical hernia Visualized spine appears osteopenic and shows degenerative changes. Metallic orthopedic hardware are seen in situ without obvious loosening.-stable. Grade II anterolisthesis of L5 over S1 vertebra.-stable. IMPRESSION: 1. Simple hepatic cyst.-stable. 2. Few simple cortical cyst are noted in both kidneys -stable. 3. Small calyceal calculi of size 5 mm and 3 mm involving upper pole calyx of left kidney with focal cortical scarring.-stable. 4. Diffuse atherosclerotic calcification is noted involving aorta iliac arteries. -stable. 5. Small fat containing umbilical hernia-stable. 6. No other new interval abnormality since prior study. Electronically signed by Tam Kumari 08-24-2024 07:16 AM
[2024-08-24] MEDS ORDERED: SODIUM CHLORIDE 0.9% 100 ML IV PRN (08:23)
[2024-08-24] MEDS ORDERED: NITROGLYCERIN SL 0.4 MG/TAB TAB SL PRN (08:23)
--- NOTE | 2024-08-24 08:50 | Electrocardiogram Report ---
Test Reason : Blood Pressure : */* mmHG Vent. Rate : 80 BPM Atrial Rate : 80 BPM P-R Int : 146 ms QRS Dur : 76 ms QT Int : 394 ms P-R-T Axes : 12 -41 26 degrees QTcB Int : 454 ms Normal sinus rhythm Left axis deviation Abnormal ECG When compared with ECG of 30-Jul-2024 17:32, No significant change Confirmed by Jatin Chino ([id number]) on 08/24/2024 8:49:43 AM Referred By: REFERRED SELF Confirmed By: Jatin Chino
[2024-08-24 09:01] LABS: Basophils # (auto) 0.03 K/uL (0.00-0.20); Basophils % (auto) 0.6 %; Eosinophils # (auto) 0.11 K/uL (0.00-0.50); Eosinophils % (auto) 2.4 %; Hematocrit (blood only) 32.5 % (37.0-47.0); Immature Granulocytes # (auto) 0.01 K/uL (0.01-0.20); Immature Granulocytes % (auto) 0.2 %; Lymphocytes # (auto) 1.11 K/uL (1.20-3.40); Mean Corpuscular Hemoglobin 27.6 pg (25.0-34.0); Mean Corpuscular Hgb Conc 30.8 g/dL (32.0-36.0); Mean Corpuscular Volume 89.8 fL (80.0-100.0); Mean Platelet Volume 9.4 fL (9.4-12.4); Monocytes # (auto) 0.49 K/uL (0.11-0.59); Monocytes % (auto) 10.6 %; Neutrophils # (auto) 2.88 K/uL (1.40-6.50); Neutrophils % (auto) 62.2 %; Platelet Count 159 K/uL (130-400); RDW Coefficient of Variation 19.4 % (11.5-14.5); RDW Standard Deviation 64.5 fL (36.4-46.3); Red Blood Count 3.62 M/uL (4.20-5.40); White Blood Count 4.63 K/ul (4.8-10.8)
[2024-08-24 09:30] LABS: Albumin Level 3.8 gm/dl (3.4-5.0); Bilirubin,Total 0.6 mg/dl (0.2-1.0); Calcium 8.8 mg/dl (8.6-10.3); Magnesium 1.9 mg/dl (1.7-2.4); Potassium 4.1 mmol/L (3.5-5.1)
[2024-08-24 09:35] LABS: Albumin Globulin Ratio 1.6 (0.9-2); BUN Creatinine Ratio 25.7 (10-20); Creatinine Clr Calc Pharmacy 50.7 ml/min; Globulin 2.4 gm/dl (2.5-4.0); Total Protein 6.2 gm/dl (6.0-8.3)
[2024-08-24] MEDS: CYANOCOBALAMIN (B-12) 500 MCG TABLET PO SCH (11:25)
[2024-08-24] MEDS: ROSUVASTATIN CALCIUM 20 MG TAB PO SCH (11:26)
--- NOTE | 2024-08-24 12:17 | Gastrointestinal Consultation ---
Date of Consultation August 24, 2024 Assessment & Plan (1) Acute lower GI bleeding: Plan Patient is an 88 year old female admitted with GI bleeding and notes BRB which was sudden and started yesterday. Awaiting Capsule endoscopy reading. - follow hgb/hct. transfuse as needed. - continue with protonix drip for now. - will discuss case further with Dr. Pradhan. Further recommendations to follow. Supervising Physician Co-Signing Physician Notes I personally saw and examined the patient. I have reviewed the chart and agree with the documentation provided by the POWER WASHER including discussion about the assess ment, treatment and plan. Briefly, 88 year old female with past medical history significant for dyslipidemia, hyperbilirubinemia, COPD, peripheral artery disease, history of thromboembolus, hypertension, bilateral carotid stenosis, carotid cavernous fistula, history of acute lower limb ischemia, hypertension, irritable bowel syndrome, vitamin D deficiency, B12 deficiency, Contreras's esophagus without dysplasia, GERD, acute blood loss anemia, iron deficiency anemia, persistent insomnia, status post insertion of iliac artery stent presented to the ED with complaints of GI bleeding. Patient states yesterday she had one episode of large rectal bleeding. she does not feel she had black stools. She is status post EGD and colonoscopy and I did a push enteroscopy on her 2 weeks ago. She appears to have obscure GI bleeding and the only time we saw blood was coming from the ileocecal valve when her last colonoscopy was done by Dr. Prescott. 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 While these can contribute to anemia, they usually do not present with bright red blood per rectum and there is significant of bleeding. At this point I think we need to do another colonoscopy with TI intubation. Patient agrees to this. History of Present Illness Reason for Consultation: melena/ blood per rectum Requesting Physician: Alexandro Juan MD Attending Physician: Max Sanders MD History of Present Illness Patient is a 88 year old female with past medical history significant for dyslipidemia, hyperbilirubinemia, COPD, peripheral artery disease, history of thromboembolus, hypertension, bilateral carotid stenosis, carotid cavernous fistula, history of acute lower limb ischemia, hypertension, irritable bowel syndrome, vitamin D deficiency, B12 deficiency, Contreras's esophagus without dysplasia, GERD, acute blood loss anemia, iron deficiency anemia, persistent insomnia, status post insertion of iliac artery stent presented to the ED with complaints of GI bleeding. Patient states yesterday she had one episode of large rectal bleeding. she does not feel she had black stools. No abdominal pain. No nausea. No chest pain. No shortness of breath. No cough. No headache no runny nose or sore throat. Rest of GI ros are unremarkable. she tells me that she has not had any further bleeding since admission. In June 2024 patient was admitted for acute GI bleed and acute blood loss anemia. CT abdomen did not show any acute changes. At the time she was on Eliquis and Plavix which were held. She had EGD on 07/09/2024 did not show any active bleeding. Colonoscopy also done on same day showed 3 small colonic polyps and diverticulosis. There was some fresh blood seen in cecum with blood coming through IC valve and internal ileum without any source seen. Patient had GI bleed nuclear scan same date which did not show any evidence of bleed. Vascular surgery [facility] was notified and recommended stopping Eliquis and to continue Plavix and to keep vascular appointment on 09/18 2024. Patient did okay and was discharged on 07/11/2024. Patient was again admitted on 07/30/[address] angio abdomen pelvis was done which showed no active bleeding. Hemoglobin was 7.4 and received 1 unit PRBC. Patient had small bowel enteroscopy 08/03 which showed small hiatal hernia, LA-B esophagitis without any bleeding. Discharged on 08/06/2024 to follow as outpatient and recommendation for video capsule endoscopy. Patient says she swallowed video capsule endoscopy on 08/17/2024 but this report has not been read yet. 08/24/24 hgb 10.8 08/06/24 hgb 9 Allergies Allergy/AdvReac Type Severity Reaction Status Date / Time ampicillin Allergy Severe Dyspnea, Verified 08/24/24 01:31 hives azithromycin Allergy Severe Hives, Verified 08/24/24 01:31 angioedema Carbapenems Allergy Severe Dyspnea Verified 08/24/24 01:31 cilastatin Allergy Severe Dyspnea Verified 08/24/24 01:31 imipenem Allergy Severe Dyspnea Verified 08/24/24 01:31 Macrolide Antibiotics Allergy Severe Hives, Verified 08/24/24 01:31 angioedema meropenem Allergy Severe Dyspnea Verified 08/24/24 01:31 penicillamine Allergy Severe Dyspnea Verified 08/24/24 01:31 ranitidine Allergy Severe Dyspnea Verified 08/24/24 01:31 Cephalosporins Allergy Intermediate Hives Verified 08/24/24 01:31 Penicillins Allergy Intermediate Hives Verified 08/24/24 01:31 adhesive Allergy Mild Rash Verified 08/24/24 01:31 Home Medications Medication Instructions Recorded Confirmed Type cyanocobalamin (vitamin B-12) 1,000 mcg PO QDL 12/14/18 08/24/24 History 1,000 mcg tablet (Vitamin B-12) fluticasone propionate 50 2 spray intranasal QAM PRN Nasal 12/14/18 08/24/24 History mcg/actuation nasal Congestion spray,suspension rosuvastatin 20 mg tablet (Crestor) 20 mg PO QAM 11/12/19 08/24/24 History cholecalciferol (vitamin D3) 25 25 mcg PO QDL 05/05/20 08/24/24 History mcg (1,000 unit) chewable tablet (Vitamin D3) acetaminophen 500 mg tablet 500 mg PO QID PRN Pain 02/27/22 08/24/24 History (Tylenol Extra Strength) docusate sodium 50 mg capsule 50 mg PO DAILY PRN Constipation 03/28/22 08/24/24 History (Stool Softener) amlodipine 5 mg tablet 5 mg PO QAM 04/21/24 08/24/24 History clopidogrel 75 mg tablet 75 mg PO QAM 04/21/24 08/24/24 History lisinopril 20 mg tablet 20 mg PO QAM 07/03/24 08/24/24 History pantoprazole 40 mg tablet,delayed 40 mg PO BID #60 tabs 07/05/24 08/24/24 Rx release Patient History Medical History Elevated hemidiaphragm L History of GI bleed 2020- DIRECTLY AFTER SHOULDER SURGERY History of COVID-19 10/2021 cough- no hospitalization, no current issues Post-traumatic osteoarthritis, left shoulder Chronic constipation Hx of cancer of uterus s/p hysterectomy with USO Carotid stenosis 50-69% right sided stenosis per 09/2018 doppler report but personal review of imaging by vascular felt that carotid artery stenosis <50% b/l - advised by vascular to f/u PRN; denies dizziness, lightheadedness, visual changes, headaches or syncope History of left shoulder fracture 07/2019 - medically managed until this upcoming surgery Surgical History History of esophagogastroduodenoscopy (EGD) Fusion of spine Left SI joint fusion: 06/14/2020: Grade 2 view, MAC 3.0, ETT 7.0 at [facility] Hx of tooth extraction Hx of surgical procedure Right SI joint fusion History of cataract surgery R/L History of colonoscopy History of surgery "Windpipe growth" removal History of tonsillectomy H/O hemorrhoidectomy History of appendectomy History of cholecystectomy H/O: hysterectomy + USO Hx of fusion of cervical spine History of lumbar fusion Family History Other Heart disease Social History Smoking Status: Current every day smoker Tobacco Type: Pipe Cigarettes Per Day: 4; Second Hand Exposure: Yes; Do You Dip or Chew Tobacco: No; Hx Alcohol Use: No Hx Substance Use: No Preferred Language: Macedonian Communication Ability: Effective 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 Beliefs That Will Affect Care: None marital status: Current Living Situation: Spouse Feels Safe at Home: Yes Assistive Devices: Denture - Upper and Denture - Lower Review of Systems Review of Systems: All systems reviewed & are unremarkable except as noted in HPI & below Physical Exam Constitutional: WD/WN, vitals as above Respiratory: normal respiratory effort, lungs clear to auscultation Cardiovascular: Rate/Rhythm: regular rate and regular rhythm Gastrointestinal (Abdomen): normal bowel sounds, soft, nontender, no hepatosplenomegaly Psychiatric: Orientation: alert and oriented x 3 Affect: euthymic affect Results & Data Vital Signs (Past 12 Hours) Vital Signs Temp Pulse Pulse Resp BP Pulse Ox Pulse Ox 08/24/24 11:31 97.3 F L 59 L 19 131/73 96 08/24/24 10:46 62 08/24/24 09:39 97.5 F L 57 L 19 127/79 94 08/24/24 09:00 65 16 131/72 96 08/24/24 08:44 60 08/24/24 08:23 94 08/24/24 08:00 67 22 132/73 97 08/24/24 07:00 60 20 107/60 95 08/24/24 05:00 60 18 109/52 L 98 08/24/24 03:41 73 08/24/24 03:00 71 18 121/57 L 98 08/24/24 01:48 66 18 112/64 94 08/24/24 00:20 95 08/24/24 00:19 95 O2 Del Method O2 Del Method 08/24/24 11:31 Room Air 08/24/24 10:46 08/24/24 09:39 Room Air 08/24/24 09:00 Room Air 08/24/24 08:44 08/24/24 08:23 Room Air 08/24/24 08:00 Room Air 08/24/24 07:00 Room Air 08/24/24 05:00 Room Air 08/24/24 03:41 08/24/24 03:00 Room Air 08/24/24 01:48 Room Air 08/24/24 00:20 Room Air 08/24/24 00:19 Room Air Coding Level of Care Code 93439 INT INP/OBS CARE 2/55MIN Diagnoses Acute lower GI bleeding K92.2
[2024-08-24 13:33] LABS: Hematocrit (blood only) 34.5 % (37.0-47.0); Hemoglobin 10.7 g/dl (12.0-16.0)
[2024-08-24] MEDS: LACTATED RINGER'S 500 ML IV ONE (14:58)
[2024-08-24 15:13] LABS: Basophils # (auto) 0.04 K/uL (0.00-0.20); Basophils % (auto) 0.8 %; Eosinophils # (auto) 0.12 K/uL (0.00-0.50); Eosinophils % (auto) 2.4 %; Hemoglobin 10.3 g/dl (12.0-16.0); Immature Granulocytes # (auto) 0.01 K/uL (0.01-0.20); Immature Granulocytes % (auto) 0.2 %; Lymphocytes # (auto) 1.33 K/uL (1.20-3.40); Lymphocytes % (auto) 26.5 %; Mean Corpuscular Hemoglobin 27.3 pg (25.0-34.0); Mean Corpuscular Hgb Conc 30.3 g/dL (32.0-36.0); Mean Corpuscular Volume 90.2 fL (80.0-100.0); Mean Platelet Volume 9.9 fL (9.4-12.4); Monocytes # (auto) 0.47 K/uL (0.11-0.59); Monocytes % (auto) 9.4 %; Neutrophils # (auto) 3.04 K/uL (1.40-6.50); Neutrophils % (auto) 60.7 %; Platelet Count 188 K/uL (130-400); RDW Coefficient of Variation 19.4 % (11.5-14.5); RDW Standard Deviation 64.6 fL (36.4-46.3); Red Blood Count 3.77 M/uL (4.20-5.40); White Blood Count 5.01 K/ul (4.8-10.8)
--- NOTE | 2024-08-24 15:34 | Hospitalist Progress Note ---
Date of Service August 24, 2024 Assessment & Plan (1) Acute GI bleeding: Plan: 88-year-old female with past medical history significant for dyslipidemia, hyperbilirubinemia, COPD, peripheral artery disease, history of thromboembolus, hypertension, bilateral carotid stenosis, carotid cavernous fistula, history of acute lower limb ischemia, hypertension, irritable bowel syndrome, vitamin D deficiency, B12 deficiency, Contreras's esophagus without dysplasia, GERD, acute blood loss anemia, iron deficiency anemia, persistent insomnia, status post insertion of iliac artery stent presents with GI bleed. Patient had multiple bloody bowel movements and also black stools. No abdominal pain. No nausea. No chest pain. No shortness of breath. No cough. No headache no runny nose or sore throat. Resting comfortably and hemodynamically stable. In June 2024 patient was admitted for acute GI bleed and acute blood loss anemia. CT abdomen did not show any acute changes. At the time she was on Eliquis and Plavix which were held. She had EGD on 07/09/2024 did not show any active bleeding. Colonoscopy also done on same day showed 3 small colonic polyps and diverticulosis. There was some fresh blood seen in cecum with blood coming through IC valve and internal ileum without any source seen. Patient had GI bleed nuclear scan same date which did not show any evidence of bleed. Vascular surgery [facility] was notified and recommended stopping Eliquis and to continue Plavix and to keep vascular appointment on 09/18 2024. Patient did okay and was discharged on 07/11/2024. Patient was again admitted on 07/30/[address] angio abdomen pelvis was done which showed no active bleeding. Hemoglobin was 7.4 and received 1 unit PRBC. Patient had small bowel enteroscopy which showed small hiatal hernia, LA grade B esophagitis with no bl eeding. Discharged on 08/06/2024 to follow as outpatient and recommendation for video capsule endoscopy. Patient says she swallowed video capsule endoscopy on 08/17/2024 and she did not passed it yet. Acute GI bleeding Melena BRPPR Patient with recurrent admission for acute blood loss anemia presents with melena and bright red blood per rectum. Recently underwent capsule endoscopy(08/17); was found to have small nonbleeding angiectasia in the proximal small intestine, multiple lymphangiectasias in proximal small intestine, Submucosal lesion likely lymphangiectasia in mid small intestine. Focal area of erythema, possibly an angioectasia, in the mid small intestine wo bleeding Patient had previously undergone endoscopy, colonoscopy, small bowel enteroscopy. Discussed with GI regarding the capsule endoscopy finding. Plan for colonoscopy tomorrow. CBC every 6 hours. Severe peripheral artery disease Status post left iliac thromboembolectomy of the external iliac stent grafting on 03/2024 Plavix on hold Follow-up with vascular surgery as scheduled Hypertension Will hold amlodipine and lisinopril Hyperlipidemia On statin GERD Continue PPI drip DVT prophylaxis SCDs Disposition Telemetry Full code Please note the above document was generated using voice recognition software. It may contain grammatical, syntax or spelling errors. Any formal questions or concerns about the content, text or information contained within the body of this dictation should be directly addressed to the provider for clarification Admission and Anticipated Discharge Date Admission Date: August 24, 2024 Subjective Patient seen and examined at bedside. She reports that she had melena and bright red blood per rectum overnight. Hemoglobin is stable around 10 Review of Systems Review of Systems: All systems reviewed & are unremarkable except as noted in Subjective Physical Exam Physical Exam: General- Not in distress Head- atraumatic Eyes- PERRL. ENT- oropharynx clear Neck- supple, no JVD. Lungs- clear to auscultation no wheezing or crackles Heart- regular rhythm; no murmur, no gallop. Abdomen- normal bowel sounds, soft, nontender, no distension Extremities- no pretibial edema, no erythema seen Neuro- alert, oriented PERRL, no facial palsy; no dysarthria; moves extremities Results & Data Results & Data Vital Signs (Past 12 Hours) Vital Signs Temp Pulse Pulse Resp BP Pulse Ox Pulse Ox 08/24/24 11:31 36.3 C L 59 L 19 131/73 96 08/24/24 10:46 62 08/24/24 09:39 36.4 C L 57 L 19 127/79 94 08/24/24 09:00 65 16 131/72 96 08/24/24 08:44 60 08/24/24 08:23 94 08/24/24 08:00 67 22 132/73 97 08/24/24 07:00 60 20 107/60 95 08/24/24 05:00 60 18 109/52 L 98 08/24/24 03:41 73 O2 Del Method O2 Del Method 08/24/24 11:31 Room Air 08/24/24 10:46 08/24/24 09:39 Room Air 08/24/24 09:00 Room Air 08/24/24 08:44 08/24/24 08:23 Room Air 08/24/24 08:00 Room Air 08/24/24 07:00 Room Air 08/24/24 05:00 Room Air 08/24/24 03:41
[2024-08-24] MEDS: LAVAGE SOLUTION 4000ML PO SCH (16:03)
[2024-08-24 21:21] LABS: Basophils # (auto) 0.03 K/uL (0.00-0.20); Basophils % (auto) 0.6 %; Eosinophils # (auto) 0.11 K/uL (0.00-0.50); Eosinophils % (auto) 2.2 %; Hemoglobin 10.2 g/dl (12.0-16.0); Immature Granulocytes # (auto) 0.02 K/uL (0.01-0.20); Immature Granulocytes % (auto) 0.4 %; Lymphocytes # (auto) 1.45 K/uL (1.20-3.40); Lymphocytes % (auto) 29.4 %; Mean Corpuscular Hemoglobin 27.6 pg (25.0-34.0); Mean Corpuscular Hgb Conc 30.9 g/dL (32.0-36.0); Mean Corpuscular Volume 89.4 fL (80.0-100.0); Mean Platelet Volume 9.6 fL (9.4-12.4); Monocytes # (auto) 0.52 K/uL (0.11-0.59); Monocytes % (auto) 10.5 %; Neutrophils % (auto) 56.9 %; Platelet Count 190 K/uL (130-400); RDW Coefficient of Variation 19.2 % (11.5-14.5); RDW Standard Deviation 63.7 fL (36.4-46.3); Red Blood Count 3.69 M/uL (4.20-5.40); White Blood Count 4.93 K/ul (4.8-10.8)
[2024-08-25 02:35] LABS: Basophils # (auto) 0.02 K/uL (0.00-0.20); Basophils % (auto) 0.5 %; Eosinophils # (auto) 0.13 K/uL (0.00-0.50); Eosinophils % (auto) 3.2 %; Hematocrit (blood only) 30.7 % (37.0-47.0); Hemoglobin 9.4 g/dl (12.0-16.0); Immature Granulocytes # (auto) 0.01 K/uL (0.01-0.20); Immature Granulocytes % (auto) 0.2 %; Lymphocytes # (auto) 1.35 K/uL (1.20-3.40); Lymphocytes % (auto) 32.8 %; Mean Corpuscular Hemoglobin 27.3 pg (25.0-34.0); Mean Corpuscular Hgb Conc 30.6 g/dL (32.0-36.0); Mean Corpuscular Volume 89.2 fL (80.0-100.0); Monocytes # (auto) 0.47 K/uL (0.11-0.59); Monocytes % (auto) 11.4 %; Neutrophils # (auto) 2.13 K/uL (1.40-6.50); Neutrophils % (auto) 51.9 %; Platelet Count 165 K/uL (130-400); RDW Coefficient of Variation 19.3 % (11.5-14.5); RDW Standard Deviation 63.5 fL (36.4-46.3); Red Blood Count 3.44 M/uL (4.20-5.40); White Blood Count 4.11 K/ul (4.8-10.8)
[2024-08-25 09:28] LABS: Basophils # (auto) 0.02 K/uL (0.00-0.20); Basophils % (auto) 0.4 %; Eosinophils % (auto) 2.2 %; Hematocrit (blood only) 32.5 % (37.0-47.0); Hemoglobin 10.2 g/dl (12.0-16.0); Immature Granulocytes # (auto) 0.01 K/uL (0.01-0.20); Immature Granulocytes % (auto) 0.2 %; Lymphocytes # (auto) 0.99 K/uL (1.20-3.40); Lymphocytes % (auto) 22.1 %; Mean Corpuscular Hemoglobin 27.7 pg (25.0-34.0); Mean Corpuscular Hgb Conc 31.4 g/dL (32.0-36.0); Mean Corpuscular Volume 88.3 fL (80.0-100.0); Mean Platelet Volume 9.7 fL (9.4-12.4); Monocytes # (auto) 0.39 K/uL (0.11-0.59); Monocytes % (auto) 8.7 %; Neutrophils # (auto) 2.97 K/uL (1.40-6.50); Neutrophils % (auto) 66.4 %; Platelet Count 180 K/uL (130-400); RDW Coefficient of Variation 19.3 % (11.5-14.5); RDW Standard Deviation 63.1 fL (36.4-46.3); Red Blood Count 3.68 M/uL (4.20-5.40); White Blood Count 4.48 K/ul (4.8-10.8)
--- NOTE | 2024-08-25 09:28 | History & Physical Bridge Note ---
Date of Service August 25, 2024 History & Physical Bridge Note I have examined the patient, reviewed the History & Physical and in the interval since the performance of the History & Physical I have noted the following changes of clinical significance: Patient had bloody bowel movements throughout the evening with her prep. otherwise, no nausea, vomiting, abdominal pain, reflux, chest pain, or sob. - plan to proceed with a colonoscopy today to further evaluate. Supervising Physician Co-Signing Physician Notes I personally saw and examined the patient. I have reviewed the chart and agree with the documentation provided by the CERTIFIED MORTICIAN including discussion about the assessment, treatment and plan. Briefly, bright red blood and dark stools overnight. Still not completely prep. Will give an enema and plan for colonoscopy today. Patient understands.
[2024-08-25] MEDS: SOD PHOSPHATE/SOD BIPHOSPHATE ENEMA 132 ML BTL PR STA (10:21)
--- NOTE | 2024-08-25 11:36 | Anesthesiology Consultation ---
Date of Service August 25, 2024 Assessment & Plan Chart Review Chart Review: Acceptable Risk for Surgery and Patient NOT seen in Pre Admission Testing Consults Requested none ASA ASA3 Proposed Anesthesia Anesthesia Type: MAC Risk / Benefits Reviewed With: PT / POA / Parent / Guardian, Accepts Plan and Informed Consent Obtained History Surgery Operation Date: 08/25/24 16:30 Proposed Procedures p Colonoscopy Carolynn - Carlos Pradhan MD Height/Weight Height: 5 ft 4 in Weight: 67.9 kg Allergies Allergy/AdvReac Type Severity Reaction Status Date / Time ampicillin Allergy Severe Dyspnea, Verified 08/24/24 01:31 hives azithromycin Allergy Severe Hives, Verified 08/24/24 01:31 angioedema Carbapenems Allergy Severe Dyspnea Verified 08/24/24 01:31 cilastatin Allergy Severe Dyspnea Verified 08/24/24 01:31 imipenem Allergy Severe Dyspnea Verified 08/24/24 01:31 Macrolide Antibiotics Allergy Severe Hives, Verified 08/24/24 01:31 angioedema meropenem Allergy Severe Dyspnea Verified 08/24/24 01:31 penicillamine Allergy Severe Dyspnea Verified 08/24/24 01:31 ranitidine Allergy Severe Dyspnea Verified 08/24/24 01:31 Cephalosporins Allergy Intermediate Hives Verified 08/24/24 01:31 Penicillins Allergy Intermediate Hives Verified 08/24/24 01:31 adhesive Allergy Mild Rash Verified 08/24/24 01:31 Medications Home Medications Medication Instructions Recorded Confirmed Last Taken cyanocobalamin (vitamin B-12) 1,000 mcg PO QDL 12/14/18 08/24/24 08/23/24 1,000 mcg tablet (Vitamin B-12) fluticasone propionate 50 2 spray intranasal QAM PRN Nasal 12/14/18 08/24/24 07/02/24 08:00 mcg/actuation nasal Congestion spray,suspension rosuvastatin 20 mg tablet (Crestor) 20 mg PO QAM 11/12/19 08/24/24 08/23/24 cholecalciferol (vitamin D3) 25 25 mcg PO QDL 05/05/20 08/24/24 08/23/24 mcg (1,000 unit) chewable tablet (Vitamin D3) acetaminophen 500 mg tablet 500 mg PO QID PRN Pain 02/27/22 08/24/24 Unknown (Tylenol Extra Strength) docusate sodium 50 mg capsule 50 mg PO DAILY PRN Constipation 11/02/22 03/31/25 11/01/22 07:00 (Stool Softener) amlodipine 5 mg tablet 5 mg PO QAM 04/21/24 08/24/24 08/23/24 clopidogrel 75 mg tablet 75 mg PO QAM 04/21/24 08/24/24 08/23/24 lisinopril 20 mg tablet 20 mg PO QAM 07/03/24 08/24/24 08/23/24 pantoprazole 40 mg tablet,delayed 40 mg PO BID #60 tabs 07/05/24 08/24/24 08/23/24 release Active Medications Generic Name Dose Route Start Last Admin Trade Name Freq PRN Reason Stop Dose Admin Cyanocobalamin 1,000 mcg 08/24/24 11:30 08/24/24 11:25 Cyanocobalamin (B-12) 500 Mcg Tablet PO 09/23/24 11:29 1,000 mcg QDL HUNTER Administration Pantoprazole Sodium 40 mg/ 100 mls @ 20 mls/hr 08/24/24 06:30 08/25/24 08:59 Dextrose IV 09/23/24 06:29 8 mg/hr Q5H HUNTER 20 mls/hr Administration 8 MG/HR Rosuvastatin Calcium 20 mg 08/24/24 09:00 08/25/24 08:59 Rosuvastatin Calcium 20 Mg Tab PO 09/23/24 08:59 20 mg QAM HUNTER Administration NPO Date Last Intake of Fluids: 08/25/24 Time Last Intake of Fluids: 09:00 Date Last Intake of Solids: 08/23/24 Past Medical History Medical History Elevated hemidiaphragm L History of GI bleed 2020- DIRECTLY AFTER SHOULDER SURGERY History of COVID-19 10/2021 cough- no hospitalization, no current issues Post-traumatic osteoarthritis, left shoulder Chronic constipation Hx of cancer of uterus s/p hysterectomy with USO Carotid stenosis 50-69% right sided stenosis per 09/2018 doppler report but personal review of imaging by vascular felt that carotid artery stenosis <50% b/l - advised by vascular to f/u PRN; denies dizziness, lightheadedness, visual changes, headaches or syncope History of left shoulder fracture 07/2019 - medically managed until this upcoming surgery Exercise / Class Metabolic Activity III < 4 Walking/Shop/Light housework Past Family History Family History Other Heart disease Past Surgical History Surgical History History of esophagogastroduodenoscopy (EGD) Fusion of spine Left SI joint fusion: 06/14/2020: Grade 2 view, MAC 3.0, ETT 7.0 at [facility] Hx of tooth extraction Hx of surgical procedure Right SI joint fusion History of cataract surgery R/L History of colonoscopy History of surgery "Windpipe growth" removal History of tonsillectomy H/O hemorrhoidectomy History of appendectomy History of cholecystectomy H/O: hysterectomy + USO Hx of fusion of cervical spine History of lumbar fusion Past Anesthesia History No Hx of Anesthesia Complications and No Family Hx of Anesthesia Complications History of PONV No Hx of PONV Social History Smoking Status: Current every day smoker tobacco type: cigarettes Smoking cigarettes per day: 4 Do You Dip or Chew Tobacco: No Hx Alcohol Use: No Hx Substance Use: No substance use type: does not use Review of Systems ROS Unobtainable: All systems reviewed & are unremarkable except as noted in HPI & below Constitutional: + weakness Eyes: as per Subjective / HPI Ear, Nose, Mouth, Throat: as per Subjective / HPI Respiratory: as per Subjective / HPI Cardiovascular: as per Subjective / HPI Gastrointestinal: + blood in stools and + problem reported Genitourinary (Female): as per Subjective / HPI Musculoskeletal: as per Subjective / HPI Integumentary: as per Subjective / HPI Neurologic: as per Subjective / HPI Psychiatric: as per Subjective / HPI Endocrine: as per Subjective / HPI Hematologic / Lymphatic: as per Subjective / HPI anemia Allergy / Immunological: as per Subjective / HPI Physical Exam Vital Signs Last Vital Signs Temp 36.4 C L 08/25/24 11:08 Pulse 72 08/25/24 11:08 Resp 20 08/25/24 11:08 BP 156/70 H 08/25/24 11:08 Pulse Ox 95 08/25/24 11:08 O2 Del Method Room Air 08/25/24 11:08 ENMT Mouth: + dentition abnormality (missing) Thyromental Distance: > or= 3.5 Finger Breadths Mallampati Class: II Neck normal visual inspection Respiratory normal respiratory effort Cardiovascular Rate/Rhythm: regular rate and regular rhythm Musculoskeletal bruising on ext; infiltrated IV note on RUE Neurologic moves all extremities Psychiatric Orientation: alert and oriented x 3 Testing Laboratory Results 08/25/24 08:52 08/24/24 08:46 PT 10.6 Seconds (9.0-12.0) 08/24/24 00:03 INR 1.0 (0.9-1.1) 08/24/24 00:03 APTT 23 Seconds (21-31) 08/24/24 00:03 Blood Type O Positive 08/24/24 00:06 Antibody Screen NEGATIVE 08/24/24 00:06
--- NOTE | 2024-08-25 12:51 | GI REPORT ---
[facility] Patient: HOOD MALDONADO : 1935 Sex at : Female Age: 88 Years Procedure: Colonoscopy Date: 08/25/2024 Attending Physician: Carlos Pradhan MD Referring MD: Referred Self Indications: - Gastrointestinal bleeding - Hematochezia Medications: - Monitored Anesthesia Care Complications: - No immediate complications. Estimated Blood Loss: - Estimated blood loss: None. - Estimated blood loss was minimal. Procedure: - Prior to the procedure, a History and Physical was performed, and patient medications and allergies were reviewed. The patient's tolerance of previous anesthesia was also reviewed. The risks and benefits of the procedure and the sedation options and risks were discussed with the patient. All questions were answered, and informed consent was obtained. Prior Anticoagulants: The patient has taken Plavix (clopidogrel), last dose was 4 days prior to procedure. ASA Grade Assessment: III - A patient with severe systemic disease. After reviewing the risks and benefits, the patient was deemed in satisfactory condition to undergo the procedure. - The pediatric colonoscope was introduced through the anus and advanced to the terminal ileum, with identification of the appendiceal orifice and ileocecal valve. - The colonoscopy was performed without difficulty. - The patient tolerated the procedure well. - The quality of the bowel preparation was good. - The terminal ileum, ileocecal valve, appendiceal orifice, and rectum were photographed. Findings: - The distal ileum contained three small angioectasias without bleeding. Coagulation for tissue destruction using argon plasma at 0.5 liters/minute and 15 merchant was successful. - The ileum, 5 cm from the ileocecal valve contained one medium-sized angiodysplastic lesion with bleeding. Ulcer noted adjacent to avm. Upon air insufflation, the ulcer flicked off and the avm started bleeding. Using APC, the base was coagulated with marked decrease in bleeding. Clip deployed and bleeding stopped. Coagulation for tissue destruction using argon plasma was successful. For hemostasis, one hemostatic clip was successfully placed. 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 There was no bleeding at the end of the procedure. - The exam was otherwise without abnormality on direct and retroflexion views. - Internal hemorrhoids were found during retroflexion. The hemorrhoids were small. - Multiple medium-mouthed diverticula were found in the sigmoid colon and ascending colon. - A small (4-6 mm) polyp was found in the hepatic flexure. The polyp was sessile. Polyp not removed due to obscure bleeding and recent plavix. Impression: - Three non-bleeding angioectasias in the ileum. Treated with argon plasma coagulation (APC). - One bleeding angiodysplastic lesion in the ileum. Treated with argon plasma coagulation (APC). Clip was placed. 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 - Ulcer noted adjacent to avm. Upon air insufflation, the ulcer flicked off and the avm started bleeding. Using APC, the base was coagulated with marked decrease in bleeding. Clip deployed and bleeding stopped. - The examination was otherwise normal on direct and retroflexion views. - Internal hemorrhoids. - Diverticulosis in the sigmoid colon and in the ascending colon. - One small (4-6 mm) polyp at the hepatic flexure. - Polyp not removed due to obscure bleeding and recent plavix. - No specimens collected. Recommendation: - Discharge patient to home (ambulatory). - Resume previous diet. - Continue present medications. - Return to referring physician as previously scheduled. - Patient has a contact number available for emergencies. The signs and symptoms of potential delayed complications were discussed with the patient. Return to normal activities tomorrow. Written discharge instructions were provided to the patient. - Hold plavix for 2 days. Start full liquid diet. Procedure Code(s): - 68733, Colonoscopy, flexible; with ablation of tumor(s), polyp(s), or other lesion(s) (includes pre- and post-dilation and guide wire passage, when performed) - 34051-76, Colonoscopy, flexible; with control of bleeding, any method Diagnosis Code(s): - K92.2, Gastrointestinal hemorrhage, unspecified - K92.1, Melena (includes Hematochezia) - K55.21, Angiodysplasia of colon with hemorrhage - D12.3, Benign neoplasm of transverse colon (hepatic flexure or splenic flexure) - K64.8, Other hemorrhoids - K57.30, Diverticulosis of large intestine without perforation or abscess without bleeding CPT(R) - 2023 copyright [employer]. All Rights Reserved. The CPT codes, CCI edits and ICD codes generated are intended as suggestions and were generated based on input data. These codes are preliminary and upon pre kindergarten teacher review may be revised to meet current compliance and payer requirements. The provider is responsible for the final determination of appropriate codes, and modifiers. Carlos Pradhan MD This document has been electronically signed. Note Initiated:08/25/2024 Note Completed:08/25/2024 12:50 PM \\[email or web address]\[email or web address]\Provation\Results\[email or web address]\[id number]
[2024-08-25] MEDS: LIDOCAINE 2% 2 ML VIAL/AMP(20MG/ML) INFIL ONE (13:33)
[2024-08-25] MEDS: PROPOFOL IV EMULSION 10 MG/ML 20 ML VIAL IV ONE ×2 (13:33)
--- NOTE | 2024-08-25 14:38 | Hospitalist Progress Note ---
Date of Service August 25, 2024 Assessment & Plan (1) Acute GI bleeding: Plan: 88-year-old female with past medical history significant for dyslipidemia, hyperbilirubinemia, COPD, peripheral artery disease, history of thromboembolus, hypertension, bilateral carotid stenosis, carotid cavernous fistula, history of acute lower limb ischemia, hypertension, irritable bowel syndrome, vitamin D deficiency, B12 deficiency, Contreras's esophagus without dysplasia, GERD, acute blood loss anemia, iron deficiency anemia, persistent insomnia, status post insertion of iliac artery stent presents with GI bleed. Patient had multiple bloody bowel movements and also black stools. No abdominal pain. No nausea. No chest pain. No shortness of breath. No cough. No headache no runny nose or sore throat. Resting comfortably and hemodynamically stable. In June 2024 patient was admitted for acute GI bleed and acute blood loss anemia. CT abdomen did not show any acute changes. At the time she was on Eliquis and Plavix which were held. She had EGD on 07/09/2024 did not show any active bleeding. Colonoscopy also done on same day showed 3 small colonic polyps and diverticulosis. There was some fresh blood seen in cecum with blood coming through IC valve and internal ileum without any source seen. Patient had GI bleed nuclear scan same date which did not show any evidence of bleed. Vascular surgery [facility] was notified and recommended stopping Eliquis and to continue Plavix and to keep vascular appointment on 09/18 2024. Patient did okay and was discharged on 07/11/2024. Patient was again admitted on 07/30/[address] angio abdomen pelvis was done which showed no active bleeding. Hemoglobin was 7.4 and received 1 unit PRBC. Patient had small bowel enteroscopy which showed small hiatal hernia, LA grade B esophagitis with no ble eding. Discharged on 08/06/2024 to follow as outpatient and recommendation for video capsule endoscopy. Patient says she swallowed video capsule endoscopy on 08/17/2024. Acute Lower GI bleeding Melena BRPPR Patient with recurrent admission for acute blood loss anemia presents with melena and bright red blood per rectum. Recently underwent capsule endoscopy(08/17); was found to have small nonbleeding angiectasia in the proximal small intestine, multiple lymphangiectasias in proximal small intestine, Submucosal lesion likely lymphangiectasia in mid small intestine. Focal area of erythema, possibly an angioectasia, in the mid small intestine wo bleeding Patient underwent colonoscopy on . Found to have 3 small angiectasis without bleeding; treated with APC 1 medium size angiodysplastic lesion with bleeding 5 cm from ileocecal valve along with adjacent ulcer. Uponair insufflation, the ulcer flickered off and avm started bleeding. APC was used. Clip was deployed to stop the bleeding. A small polyp found in hepatic flexure. Plan to hold Plavix for 2 more days as per recommendation Started full liquid diet Severe peripheral artery disease Status post left iliac thromboembolectomy of the external iliac stent grafting on 03/2024 Plavix on hold Follow-up with vascular surgery as scheduled Hypertension Will hold amlodipine and lisinopril for now Hyperlipidemia On statin GERD on protonix DVT prophylaxis SCDs Disposition Telemetry Full code Updated patient's [id number] over the phone as per patient's request. Time spent evaluating patient, direct bedside care, chart review, placing orders, interpretation of diagnostic studies, discussion with consultants, patient, and family members, as well as other required patient management activities is 50 minutes Please note the above document was generated using voice recognition software. It may contain grammatical, syntax or spelling errors. Any formal questions or concerns about the content, text or information contained within the body of this dictation should be directly addressed to the provider for clarification Admission and Anticipated Discharge Date Admission Date: August 24, 2024 Subjective Patient seen and examined at bedside. She appears comfortable after the procedure. Denies any abdominal pain or discomfort No repeat episode of bleeding at this time. Review of Systems Review of Systems: All systems reviewed & are unremarkable except as noted in Subjective Physical Exam Physical Exam: General- Not in distress Head- atraumatic Eyes- PERRL. ENT- oropharynx clear Neck- supple, no JVD. Lungs- clear to auscultation no wheezing or crackles Heart- regular rhythm; no murmur, no gallop. Abdomen- normal bowel sounds, soft, nontender, no distension Extremities- no pretibial edema, no erythema seen Neuro- alert, oriented PERRL, no facial palsy; no dysarthria; moves extremities Results & Data Results & Data Vital Signs (Past 12 Hours) Vital Signs Temp Pulse Pulse Resp BP Pulse Ox O2 Del Method 08/25/24 12:55 64 16 94 Room Air 08/25/24 12:49 62 20 148/58 H 96 Room Air 08/25/24 12:34 75 20 132/66 97 Room Air 08/25/24 11:08 36.4 C L 72 20 156/70 H 95 Room Air 08/25/24 07:50 59 L 08/25/24 07:28 36.8 C 64 18 120/72 95 Room Air 08/25/24 03:24 36.7 C 64 16 138/67 94 Room Air
[2024-08-26 06:28] LABS: Basophils # (auto) 0.03 K/uL (0.00-0.20); Basophils % (auto) 0.8 %; Eosinophils # (auto) 0.09 K/uL (0.00-0.50); Eosinophils % (auto) 2.4 %; Hematocrit (blood only) 29.5 % (37.0-47.0); Hemoglobin 9.1 g/dl (12.0-16.0); Immature Granulocytes # (auto) 0.01 K/uL (0.01-0.20); Immature Granulocytes % (auto) 0.3 %; Lymphocytes # (auto) 1.22 K/uL (1.20-3.40); Lymphocytes % (auto) 32.5 %; Mean Corpuscular Hemoglobin 27.5 pg (25.0-34.0); Mean Corpuscular Hgb Conc 30.8 g/dL (32.0-36.0); Mean Corpuscular Volume 89.1 fL (80.0-100.0); Mean Platelet Volume 9.6 fL (9.4-12.4); Monocytes # (auto) 0.45 K/uL (0.11-0.59); Neutrophils # (auto) 1.95 K/uL (1.40-6.50); Platelet Count 156 K/uL (130-400); RDW Coefficient of Variation 18.7 % (11.5-14.5); RDW Standard Deviation 61.6 fL (36.4-46.3); Red Blood Count 3.31 M/uL (4.20-5.40); White Blood Count 3.75 K/ul (4.8-10.8)
[2024-08-26 06:53] LABS: BUN Creatinine Ratio 10.3 (10-20); Calcium 8.9 mg/dl (8.6-10.3); Creatinine Clr Calc Pharmacy 48.1 ml/min; Potassium 3.9 mmol/L (3.5-5.1)
[2024-08-26 07:40] VITALS: RESP 18; TEMP 98.1
[2024-08-26] MEDS: PANTOprazole 40 MG TAB PO SCH (10:43)
--- NOTE | 2024-08-26 10:45 | Gastroenterology Progress Note ---
Date of Service August 26, 2024 Assessment & Plan (1) Acute lower GI bleeding: Plan: Bleeding seems to have stopped s/p APC and clipping. recommend holding plavix for at least 2 days. she is feeling well. okay for discharge from a GI standpoint. Admission and Anticipated Discharge Date Admission Date: August 24, 2024 Supervising Physician Co-Signing Physician Notes I personally saw and examined the patient. I have reviewed the chart and agree with the documentation provided by the NUTRITION TECH including discussion about the assessment, treatment and plan. Briefly, no further bleeding or waiting on a p.m. hemoglobin. Her hemoglobin went from 10.2-9.1 but she had a fair bit of bleeding prior to her colonoscopy. Hold off Plavix for another day at least and she can restart it at home. From a GI standpoint she is safe to go home as long as her hemoglobin is stable Subjective Patient had a regular bowel movement this morning without any bleeding. she is tolerating her diet. rest of GI ros are unremarkable. she is feeling well and wishes to go home. Colonoscopy 08/25 Three non-bleeding angioectasias in the ileum. Treated with argon plasma coagulation (APC). - One bleeding angiodysplastic lesion in the ileum. Treated with argon plasma coagulation (APC). Clip was placed. 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 - Ulcer noted adjacent to avm. Upon air insufflation, the ulcer flicked off and the avm started bleeding. Using APC, the base was coagulated with marked decrease in bleeding. Clip deployed and bleeding stopped. - The examination was otherwise normal on direct and retroflexion views. - Internal hemorrhoids. - Diverticulosis in the sigmoid colon and in the ascending colon. - One small (4-6 mm) polyp at the hepatic flexure. - Polyp not removed due to obscure bleeding and recent plavix. - No specimens collected. Review of Systems Review of Systems: All systems reviewed & are unremarkable except as noted in HPI & below Physical Exam Constitutional: WD/WN, vitals as above Respiratory: normal respiratory effort, lungs clear to auscultation Cardiovascular: Rate/Rhythm: regular rate and regular rhythm Gastrointestinal (Abdomen): normal bowel sounds, soft, nontender, no hepatosplenomegaly Psychiatric: Orientation: alert and oriented x 3 Affect: euthymic affect Results & Data Results & Data Vital Signs (Past 12 Hours) Vital Signs Temp Pulse Pulse Resp BP Pulse Ox O2 Del Method 08/26/24 07:39 98.1 F 55 L 18 133/78 95 Room Air 08/26/24 07:26 56 L 08/26/24 02:58 97.9 F 59 L 16 136/72 95 Room Air 08/25/24 23:48 61 08/25/24 23:12 97.7 F 77 16 157/77 H 95 Room Air Coding Level of Care Code 04409 SUB INP/OBS CARE 06/20MIN Diagnoses Acute lower GI bleeding K92.2
[2024-08-26 11:07] VITALS: BP 122/72; PULSE 53; O2SAT 97
[2024-08-26 13:28] LABS: Hematocrit (blood only) 33.7 % (37.0-47.0); Hemoglobin 10.4 g/dl (12.0-16.0)
--- NOTE | 2024-08-26 13:45 | Discharge Summary ---
Date of Service August 26, 2024 Admission HPI Per Admitting Provider 88-year-old female with past medical history significant for dyslipidemia, hyperbilirubinemia, COPD, peripheral artery disease, history of thromboembolus, hypertension, bilateral carotid stenosis, carotid cavernous fistula, history of acute lower limb ischemia, hypertension, irritable bowel syndrome, vitamin D deficiency, B12 deficiency, Contreras's esophagus without dysplasia, GERD, acute blood loss anemia, iron deficiency anemia, persistent insomnia, status post insertion of iliac artery stent presents with GI bleed. Patient states yesterday she had a lot of bloody bowel movements and also black stools. No abdominal pain. No nausea. No chest pain. No shortness of breath. No cough. No headache no runny nose or sore throat. Resting comfortably and hemodynamically stable. In June 2024 patient was admitted for acute GI bleed and acute blood loss anemia. CT abdomen did not show any acute changes. At the time she was on Eliquis and Plavix which were held. She had EGD on 07/09/2024 did not show any active bleeding. Colonoscopy also done on same day showed 3 small colonic polyps and diverticulosis. There was some fresh blood seen in cecum with blood coming through IC valve and internal ileum without any source seen. Patient had GI bleed nuclear scan same date which did not show any evidence of bleed. Vascular surgery [facility] was notified and recommended stopping Eliquis and to continue Plavix and to keep vascular appointment on 09/18 2024. Patient did okay and was discharged on 07/11/2024. Patient was again admitted on 07/30/[address] angio abdomen pelvis was done which showed no active bleeding. Hemoglobin was 7.4 and received 1 unit PRBC. Patient had small bowel enteroscopy which showed small hiatal hernia, LA grade B esophagitis with no bleeding. Discharged on 08/06/2024 to follow as outpatient and recommendation for video capsule endoscopy. Patient says she swallowed video capsule endoscopy on 08/17/2024 and she did not passed it yet. Past medical history. As mentioned above Past surgical history. Left femoral-popliteal thrombectomy. Bilateral carotid artery catheter placement. Cervical laminoplasty with decompression. Colonoscopy. EGD. EGD with biopsy. Iliac artery revascularization with stent and angioplasty. Lumbar disc spine fusion surgery. Removal of right ovary and oviducts. Bilateral cataracts. Cholecystectomy. Left reverse total shoulder arthroplasty. Sacroiliac joint injection. Shoulder arthroscopy. Total abdominal hysterectomy with removal of tubes. Bilateral vertebral artery catheter placement. Social history. . Smokes 1 pack a day for last 57 years. No alcohol use. No drug use. Family history. Father had CAD. Brother had hypertension and sudden cardiac arrhythmia. Admission Exam Per Admitting Provider General- Not in distress Head- atraumatic Eyes- PERRL. ENT- oropharynx clear Neck- supple, no JVD. Lungs- clear to auscultation no wheezing or crackles Heart- regular rhythm; no murmur, no gallop. Abdomen- normal bowel sounds, soft, nontender, no distension Extremities- no pretibial edema, no erythema seen Neuro- alert, oriented PERRL, no facial palsy; no dysarthria; moves extremities Principal Diagnosis Acute Lower GI bleeding Melena BRPPR Discharge Exam General- Not in distress Head- atraumatic Eyes- PERRL. ENT- oropharynx clear Neck- supple, no JVD. Lungs- clear to auscultation no wheezing or crackles Heart- regular rhythm; no murmur, no gallop. Abdomen- normal bowel sounds, soft, nontender, no distension Extremities- no pretibial edema, no erythema seen Neuro- alert, oriented PERRL, no facial palsy; no dysarthria; moves extremities Discharge Data Allergies Allergy/AdvReac Type Severity Reaction Status Date / Time ampicillin Allergy Severe Dyspnea, Verified 08/24/24 01:31 hives azithromycin Allergy Severe Hives, Verified 08/24/24 01:31 angioedema Carbapenems Allergy Severe Dyspnea Verified 08/24/24 01:31 cilastatin Allergy Severe Dyspnea Verified 08/24/24 01:31 imipenem Allergy Severe Dyspnea Verified 08/24/24 01:31 Macrolide Antibiotics Allergy Severe Hives, Verified 08/24/24 01:31 angioedema meropenem Allergy Severe Dyspnea Verified 08/24/24 01:31 penicillamine Allergy Severe Dyspnea Verified 08/24/24 01:31 ranitidine Allergy Severe Dyspnea Verified 08/24/24 01:31 Cephalosporins Allergy Intermediate Hives Verified 08/24/24 01:31 Penicillins Allergy Intermediate Hives Verified 08/24/24 01:31 adhesive Allergy Mild Rash Verified 08/24/24 01:31 Consultations 08/24/24 02:01 ED Decision to Admit Stat 08/24/24 08:23 Consult Gastroenterology Routine Procedures Performed Operation Date: 08/25/24 16:30 Actual Procedures p Colonoscopy Hemostasis - Carlos Pradhan MD Ordered Studies 08/24/24 06:07 CT Abd and Pelvis [CT abd pelvis IV con only] Urgent Hospital Course (1) Acute GI bleeding: Per prior attending w/ addendum: 88-year-old female with past medical history significant for dyslipidemia, hyperbilirubinemia, COPD, peripheral artery disease, history of thromboembolus, hypertension, bilateral carotid stenosis, carotid cavernous fistula, history of acute lower limb ischemia, hypertension, irritable bowel syndrome, vitamin D deficiency, B12 deficiency, Contreras's esophagus without dysplasia, GERD, acute blood loss anemia, iron deficiency anemia, persistent insomnia, status post insertion of iliac artery stent presents with GI bleed. Patient had multiple bloody bowel movements and also black stools. No abdominal pain. No nausea. No chest pain. No shortness of breath. No cough. No headache no runny nose or sore throat. Resting comfortably and hemodynamically stable. In June 2024 patient was admitted for acute GI bleed and acute blood loss anemia. CT abdomen did not show any acute changes. At the time she was on El iquis and Plavix which were held. She had EGD on 07/09/2024 did not show any active bleeding. Colonoscopy also done on same day showed 3 small colonic polyps and diverticulosis. There was some fresh blood seen in cecum with blood coming through IC valve and internal ileum without any source seen. Patient had GI bleed nuclear scan same date which did not show any evidence of bleed. Vascular surgery [facility] was notified and recommended stopping Eliquis and to continue Plavix and to keep vascular appointment on 09/18 2024. Patient did okay and was discharged on 07/11/2024. Patient was again admitted on 07/30/[address] angio abdomen pelvis was done which showed no active bleeding. Hemoglobin was 7.4 and received 1 unit PRBC. Patient had small bowel enteroscopy which showed small hiatal hernia, LA grade B esophagitis with no bleeding. Discharged on 08/06/2024 to follow as outpatient and recommendation for video capsule endoscopy. Patient says she swallowed video capsule endoscopy on 08/17/2024. Acute Lower GI bleeding Melena BRPPR Patient with recurrent admission for acute blood loss anemia presents with melena and bright red blood per rectum. Recently underwent capsule endoscopy(08/17); was found to have small nonbleeding angiectasia in the proximal small intestine, multiple lymphangiectasias in proximal small intestine, Submucosal lesion likely lymphangiectasia in mid small intestine. Focal area of erythema, possibly an angioectasia, in the mid small intestine wo bleeding Patient underwent colonoscopy on . Found to have 3 small angiectasis without bleeding; treated with APC 1 medium size angiodysplastic lesion with bleeding 5 cm from ileocecal valve along with adjacent ulcer. Uponair insufflation, the ulcer flickered off and avm started bleeding. APC was used. Clip was deployed to stop the bleeding. A small polyp found in hepatic flexure. Plan to hold Plavix for 2 more days as per recommendation Started full liquid diet Severe peripheral artery disease Status post left iliac thromboembolectomy of the external iliac stent grafting on 03/2024 Plavix on hold Follow-up with vascular surgery as scheduled Hypertension Will hold amlodipine and lisinopril for now Hyperlipidemia On statin GERD on protonix DVT prophylaxis SCDs Disposition Telemetry Full code Updated patient's [id number] over the phone as per patient's request. Addendum 08/26/2024: Patient was seen and examined at bedside as a follow-up of acute GI bleed, patient is status post colonoscopy08/25 and s/p APC and clipping. Patient now moving brown bowels per her, hemoglobin has plateaued and gradually trending up. Patient denies any dizziness or chest pain or palpitation. Patient feels stable and would like to go home. Appreciate GI evaluation and recommendation. Patient is being discharged with following instructions at the point of discharge: Follow-up with your primary care physician within a week time and likely you will need labs CBC/CMP/magnesium/phosphorus. You underwent evaluation for GI bleeding, GI physician evaluated you. Hold your Plavix for another day, resume your Plavix from 08/28/2024 morning. Follow-up with GI as an outpatient in 1 to 2 months time upon discharge. Take your medications as prescribed. Please make sure that you are able to get your medications today by calling your pharmacy before you leave the hospital so that your treatment continuity is not broken. Please note the above document was generated using voice recognition software. It may contain grammatical, syntax or spelling errors. Any formal questions or concerns about the content, text or information contained within the body of this dictation should be directly addressed to the provider for clarification Home Health Attestation I certify that this patient is under my care and that I, or a physicians assistant program manager working with me, had a face to-face encounter that meets the home health [id number] encounter requirements with this patient. The encounter with the patient was in whole, or in part, for the following medical condition, which is the primary reason for home health care (list medical condition): I certify that, based on my findings, the following services are medically necessary home health services: My clinical findings support the need for the above services because: Further, I certify that my clinical findings support that this patient is homebound (i.e. absences from home require considerable and taxing effort and are for medical reasons or moravian services or infrequently or of short duration when for other reasons) because: Certification for Home Health Services: Based on the above findings, I certify that this patient is confined to the home and needs intermittent fpc care, physical therapy and/or speech therapy or continues to need occupational therapy. The patient is under my care, and I have initiated the establishment of the plan of care. This patient will be followed by a physician who will periodically review the plan of care. Total Time Total Time Spent Total Time Spent (In Minutes): 35 Discharge Plan Discharge Items Patient Disposition: Home - Self-Care Reason For Visit: GI BLEED Discharge Diagnosis: Acute Lower GI bleeding Melena BRPPR Activity: Resume your previous activity Non-emergency contact: Primary Care Provider Call non-emergency contact if: you have any medication questions Follow-up/Referrals: Bharati aWng MD [Primary Care Provider] - Diet: Regular Diet Texture: Dental soft (bite-sized) Addtl Attending Provider Instructions: Follow-up with your primary care physician within a week time and likely you will need labs CBC/CMP/magnesium/phosphorus. You underwent evaluation for GI bleeding, GI physician evaluated you. Hold your Plavix for another day, resume your Plavix from 08/28/2024 morning. Follow-up with GI as an outpatient in 1 to 2 months time upon discharge. Take your medications as prescribed. Please make sure that you are able to get your medications today by calling your pharmacy before you leave the hospital so that your treatment continuity is not broken. Pending Studies at Discharge: No Stand-Alone Forms: My [facility], Smoking Cessation Medications and DC Order Prescriptions: Continued cyanocobalamin (vitamin B-12) [Vitamin B-12] 1,000 mcg Tablet 1,000 mcg PO QDL fluticasone propionate 50 mcg/actuation [place],Suspension 2 spray INTRANASAL QAM PRN (Reason: Nasal Congestion) rosuvastatin [Crestor] 20 mg Tablet 20 mg PO QAM cholecalciferol (vitamin D3) [Vitamin D3] 25 mcg (1,000 unit) Tablet,Chewable 25 mcg PO QDL acetaminophen [Tylenol Extra Strength] 500 mg Tablet 500 mg PO QID PRN (Reason: Pain) Stool Softener 50 mg Capsule 50 mg PO DAILY PRN (Reason: Constipation) amlodipine 5 mg tablet 5 mg PO QAM lisinopril 20 mg tablet 20 mg PO QAM pantoprazole 40 mg Tablet,Delayed Release (Dr/Ec) 40 mg PO BID Qty: 60 0RF Held clopidogrel 75 mg tablet 75 mg PO QAM Hold Instructions: Resume on 08/28/24. Discharge Orders: Discharge Order (Routine); Ordered 08/26/24 Ordered By: Fouzia Antony Admission Data Admit Date/Time: 08/24/24 06:05 Attending Provider: Fouzia Antony Admit Provider: Alexandro Juan Primary Care Provider: Bharati Wang Other Providers: Alexandro Juan; Carlos Pradhan Other Interventions: Discharge Summary Assessment (RN) Last Done: 08/25/24 12:55
== END 2024-08-26 17:00 | disposition home or self-care (01) | DRG 378 ==
LOC: ED 23:29 → SUATTDRO 08-24 06:05 → EDINP 08-24 06:05 → 4W 08-24 08:23